=== PATIENT | female | born 1930 | race Caucasian/White ===

== ENCOUNTER → 2017-01-14 | Outpatient (CLI) | payer MEDICARE ==
[2017-01-14 16:07] LABS: Basophils # (A) 0.1 k/uL (0-0.2); Basophils % (A) 1 %; CH 27.2; CHCM 30.8; Eosinophils # (A) 0.5 k/uL (0-0.7); Eosinophils % (A) 5 %; HCT 36.2 % (34.0-46.0); HDW 2.52; HGB 11.2 gm/dL (11.4-16.0); Hypochromasia Slight; Luc # (Auto) 0.24; Luc % (Auto) 3; Lymphocytes # (A) 2.7 k/uL (1.0-4.8); Lymphocytes % (A) 29 %; MCH 27.5 pg (25.0-35.0); MCV 88.6 fL (80.0-100.0); Mean Platelet Volume 6.6; Monocytes # (A) 0.5 k/uL (0-1.0); Monocytes % (A) 5 %; Neutrophils # (A) 5.4 k/uL (1.3-7.7); Neutrophils % (A) 57 %; RBC 4.09 m/uL (3.80-5.40); RDW 14.1 % (11.5-15.5); WBC 9.4 k/uL (3.8-10.6); WBC (Perox) 10.15
[2017-01-14 16:13] LABS: Appearance,Urine Clear (Clear); Bacteria,Urine Many /hpf; Bilirubin,Urine Negative (Negative); Glucose,Urine (UA) Negative (Negative); INR 1.9 (<1.1); Ketones,Urine Negative (Negative); Leukocyte Esterase,Urine Negative (Negative); Mucus,Urine Many /hpf; Nitrite,Urine Negative (Negative); PH, Urine 5.5 (5.0-8.0); Particle Count 2419; Protein,Urine 1+ (Negative); Prothrombin Time 18.2 sec (9.0-12.0); Specific Gravity,Urine 1.015 (1.001-1.035); Squamous Epithelial Cell,Urine 1 /hpf (0-4); UA Billing (MACRO vs. MICRO) MICRO; Urobilinogen,Urine <2.0 mg/dL (<2.0); WBC,Urine 1 /hpf (0-5)
[2017-01-14 16:23] LABS: Calcium 9.6 mg/dL (8.4-10.2); Magnesium 1.9 mg/dL (1.6-2.3); Potassium 5.1 mmol/L (3.5-5.1); Uric Acid 6.8 mg/dL (3.7-7.4)
[2017-01-14 16:31] LABS: % Iron Saturation 22.1 % (20-50)
== END | disposition home or self-care (01) ==
LOC: LABWHC1 15:44
PROVIDERS: ATTEND Nurse Practitioner Family
DX: N18.3 Chronic kidney disease, stage 3 (moderate) (principal); N25.81 Secondary hyperparathyroidism of renal origin; D64.9 Anemia, unspecified; M10.9 Gout, unspecified; N39.0 Urinary tract infection, site not specified; I48.91 Unspecified atrial fibrillation
CPT/HCPCS: 36415; 80048; 81001; 82306; 82728; 83540; 83550; 83735; 83970; 84100; 84550; 85025; 85610

== ENCOUNTER 2017-05-17 20:39 | Observation (INO) | payer MEDICARE ==
--- NOTE | 2017-05-17 20:59 | ED ---
Chest Pain HPI - General Chief Complaint: Chest Pain Stated Complaint: Chest Pain Time Seen by Provider: 05/17/17 20:58 Source: patient, EMS Mode of arrival: EMS Limitations: no limitations - History of Present Illness Initial Comments: This patient is an 87-year-old woman presenting to be evaluated for chest pain. She states that initially she had an episode last night that resolved. Tonight she was watching TV when she developed another episode. She indicates the substernal area, states that its aching pain, moderate, and that resolved after she had nitroglycerin. She states she also has been having some intermittent episodes of sweating over the past day. She did not note any worsening or relieving factors. She states that the pain reminded her of chest pain she was having when she had a heart attack. MD Complaint: chest pain -: days(s) Onset: during rest Pain Location: substernal Pain Radiation: none Severity: moderate Quality: aching Consistency: intermittent, now resolved Improves With: nitroglycerin Worsens With: nothing Anginal Symptoms: diaphoresis Treatments Prior to Arrival: aspirin, nitroglycerin - Related Data Home Medications Medication Instructions Recorded Confirmed Atorvastatin [Lipitor] 20 mg PO HS 02/02/14 05/17/17 Benazepril [Lotensin] 10 mg PO BID 02/02/14 05/17/17 HYDROcodone/APAP 5-325MG [[place] 1 tab PO TID PRN 02/02/14 05/17/17 5-325] Omeprazole [PriLOSEC] 20 mg PO AC-BRKFST 02/02/14 05/17/17 Warfarin Sodium [Coumadin] 3 mg PO DAILY@1800 02/02/14 05/17/17 amLODIPine BESYLATE [Norvasc] 5 mg PO HS 02/02/14 05/17/17 metFORMIN HCL [Glucophage] 500 mg PO AC-BID 02/02/14 05/17/17 Insulin Detemir [Levemir Flextouch] 8 units SQ DAILY 05/31/15 08/20/16 Aspirin EC [Ecotrin Low Dose] 81 mg PO DAILY 08/20/16 05/17/17 Ipratropium-Albuterol Nebulize 3 ml INHALATION RT-Q6H PRN 08/20/16 08/20/16 [Duoneb 0.5 mg-3 mg/3 ml Soln] Oxazepam [Serax] 15 mg PO BID 08/20/16 05/17/17 Metoprolol Tartrate [Lopressor] 50 mg PO BID 05/17/17 05/17/17 Allergies Allergy/AdvReac Type Severity Reaction Status Date / Time amoxicillin trihydrate Allergy Unknown Verified 08/20/16 17:22 [From Augmentin] clindamycin HCl Allergy Unknown Verified 08/20/16 17:22 [From Cleocin] clindamycin palmitate HCl Allergy Unknown Verified 08/20/16 17:22 [From Cleocin] clindamycin phosphate Allergy Unknown Verified 08/20/16 17:22 [From Cleocin] codeine Allergy Unknown Verified 08/20/16 17:22 nitrofurantoin Allergy Unknown Verified 08/20/16 17:22 [From Macrobid] nitrofurantoin Allergy Unknown Verified 08/20/16 17:22 macrocrystalline [From Macrobid] Penicillins Allergy Unknown Verified 08/20/16 17:22 potassium clavulanate Allergy Unknown Verified 08/20/16 17:22 [From Augmentin] prednisone Allergy Unknown Verified 08/20/16 17:22 quinine Allergy Unknown Verified 08/20/16 17:22 Sulfa (Sulfonamide Allergy Unknown Verified 08/20/16 17:22 Antibiotics) sulfamethoxazole Allergy Unknown Verified 08/20/16 17:22 [From Bactrim] trimethoprim [From Bactrim] Allergy Unknown Verified 08/20/16 17:22 Review of Systems ROS Statement: Those systems with pertinent positive or pertinent negative responses have been documented in the HPI. ROS Other: All systems not noted in ROS Statement are negative. Constitutional: Denies: fever, chills, weakness Respiratory: Denies: cough, dyspnea Cardiovascular: Reports: chest pain. Denies: palpitations, orthopnea, edema, syncope Gastrointestinal: Reports: diarrhea (Intermittent for 50 years), constipation ( Intermittent for 50 years). Denies: abdominal pain, nausea, vomiting Genitourinary: Denies: dysuria, hematuria Musculoskeletal: Denies: back pain Skin: Denies: rash Neurological: Denies: headache, weakness, numbness EKG Findings - EKG Results: EKG: interpreted by ERMD, sinus rhythm (With PACs, rate approximately 85 bpm), normal axis, normal QRS, normal ST/T, no acute changes Past Medical History Past Medical History: COPD, CVA/TIA, Diabetes Mellitus, GERD/Reflux, Hyperlipidemia, Hypertension, Myocardial Infarction ([place]), Pneumonia Additional Past Medical History / Comment(s): anemia eczema, constipation, Last Myocardial Infarction Date:: 1998 History of Any Multi-Drug Resistant Organisms: None Reported Past Surgical History: Cholecystectomy, Heart Catheterization With Stent Additional Past Surgical History / Comment(s): cataracts, 2 ovary removed Past Anesthesia/Blood Transfusion Reactions: Previous Problems w/ Anesthesia Additional Past Anesthesia/Blood Transfusion Reaction / Comment(s): difficulty breathing after anesthesia Date of Last Stent Placement:: unk Past Psychological History: Depression Smoking Status: Former smoker Past Alcohol Use History: None Reported Past Drug Use History: None Reported - Past Family History Father History Unknown: Yes Family Medical History: Myocardial Infarction ([place]) Mother History Unknown: Yes Family Medical History: Myocardial Infarction ([place]) General Exam Limitations: no limitations General appearance: alert, in no apparent distress Head exam: Present: atraumatic, normocephalic Eye exam: Present: normal appearance. Absent: scleral icterus, conjunctival injection ENT exam: Present: normal oropharynx Neck exam: Present: normal inspection, full ROM Respiratory exam: Present: normal lung sounds bilaterally. Absent: respiratory distress, wheezes, rales, rhonchi, stridor Cardiovascular Exam: Present: regular rate, normal rhythm, systolic murmur ( There is a grade 2/6 systolic ejection murmur). Absent: diastolic murmur, rubs , gallop GI/Abdominal exam: Present: soft. Absent: distended, tenderness, guarding, rebound, mass Extremities exam: Present: normal inspection, normal capillary refill. Absent: pedal edema, calf tenderness Back exam: Present: normal inspection. Absent: CVA tenderness (R), CVA tenderness (L) Neurological exam: Present: alert Skin exam: Present: warm, dry, intact, normal color. Absent: rash, cyanosis, diaphoretic, erythema, petechiae, pallor, mottled Course Vital Signs 05/17/17 05/17/17 20:47 21:35 Temperature 98.3 F Pulse Rate 79 75 Respiratory 18 18 Rate Blood Pressure 134/72 152/95 O2 Sat by Pulse 95 97 Oximetry Disposition Clinical Impression: Chest pain Disposition: ADMITTED IP TO THIS HOSP Condition: Fair Referrals: Georgi Thayer MD [Primary Care Provider] - 1-2 days
[2017-05-17 21:20] LABS: Basophils # (A) 0.1 k/uL (0-0.2); Basophils % (A) 1 %; CH 27.8; CHCM 31.8; Eosinophils # (A) 0.8 k/uL (0-0.7); Eosinophils % (A) 7 %; HCT 32.9 % (34.0-46.0); HDW 2.69; HGB 10.3 gm/dL (11.4-16.0); Luc % (Auto) 3; Lymphocytes # (A) 3.5 k/uL (1.0-4.8); Lymphocytes % (A) 30 %; MCH 27.5 pg (25.0-35.0); MCHC 31.3 g/dL (31.0-37.0); MCV 87.8 fL (80.0-100.0); Mean Platelet Volume 7.2; Monocytes # (A) 0.7 k/uL (0-1.0); Monocytes % (A) 6 %; Neutrophils # (A) 6.6 k/uL (1.3-7.7); Neutrophils % (A) 55 %; RBC 3.75 m/uL (3.80-5.40); RDW 14.8 % (11.5-15.5); WBC 11.9 k/uL (3.8-10.6); WBC (Perox) 12.15
--- NOTE | 2017-05-17 21:30 | XR ---
EXAMINATION TYPE: XR chest 1V portable DATE OF EXAM: 05/17/2017 COMPARISON: 05/03/2016 INDICATION: COPD, chest pain TECHNIQUE: Single frontal view of the chest is obtained. FINDINGS: The heart size is normal. The pulmonary vasculature is normal. Suspicious consolidation is not identified. There is some mild infiltrate at the right heart border, this is stable from prior study. IMPRESSION: 1. Chronic changes. No acute pulmonary process radiographically apparent.
[2017-05-17 21:31] LABS: Calcium 9.1 mg/dL (8.4-10.2); Magnesium 1.9 mg/dL (1.6-2.3); Potassium 4.8 mmol/L (3.5-5.1); Total Bilirubin 0.2 mg/dL (0.2-1.3)
[2017-05-17 21:50] LABS: INR 1.9 (<1.2); Partial Thromboplastin Time 32.2 sec (22.0-30.0); Prothrombin Time 17.9 sec (9.0-12.0)
[2017-05-17] MEDS ORDERED: NITROGLYCERIN SL TABS 0.4 MG TAB SUBLINGUAL PRN (22:24)
[2017-05-17] MEDS ORDERED: IPRATROPIUM-ALBUTEROL 3 ML NEB INHALATION PRN (22:27)
[2017-05-17] MEDS ORDERED: ATORVASTATIN 20 MG TAB PO STA (23:49)
[2017-05-17] MEDS ORDERED: METOPROLOL SUCCINATE (ER) 50 MG TAB.ER.24H PO STA (23:49)
[2017-05-17] MEDS ORDERED: amLODIPine 5 MG TAB PO STA (23:50)
[2017-05-18 00:07] VITALS: BMI 30.9
[2017-05-18 00:13] LABS: Creatine Kinase 163 U/L (30-135)
[2017-05-18] MEDS: HYDROcodone/APAP 5-325MG 1 EACH TAB PO PRN ×2 (00:13→21:16)
[2017-05-18] MEDS ORDERED: SENNOSIDES 8.6 MG TAB PO PRN (00:22)
[2017-05-18 00:26] LABS: Troponin I <0.012 ng/mL (0.000-0.034)
[2017-05-18 00:43] LABS: Creatine Kinase MB 2.7 ng/mL (0.0-2.4)
[2017-05-18 05:21] LABS: Cholesterol 119 mg/dL (<200); HDL Cholesterol 41 mg/dL (40-60)
[2017-05-18 05:24] LABS: Creatine Kinase 136 U/L (30-135)
[2017-05-18 05:38] LABS: Creatine Kinase MB 2.2 ng/mL (0.0-2.4); Troponin I <0.012 ng/mL (0.000-0.034)
[2017-05-18 06:54] LABS: Glucose,Whole Blood 115 mg/dL (75-99)
[2017-05-18] MEDS ORDERED: METOPROLOL TARTRATE 50 MG TAB PO SCH (09:00)
[2017-05-18] MEDS ORDERED: INSULIN DETEMIR 100 UNIT/ML 10 ML VIAL SQ SCH ×2 (09:00→14:00)
[2017-05-18] MEDS: LISINOPRIL 20 MG TAB PO SCH (09:24)
[2017-05-18] MEDS: metFORMIN 500 MG TAB PO SCH ×2 (09:24→17:38)
[2017-05-18] MEDS: PANTOPRAZOLE 40 MG TABLET PO SCH (09:24)
[2017-05-18] MEDS: ASPIRIN 325 MG TAB PO SCH (09:24)
[2017-05-18] MEDS: LORazepam 1 MG TAB PO SCH ×2 (09:29→20:51)
--- NOTE | 2017-05-18 09:34 | CONS ---
Mrs. Ulloa is an 87-year-old female who presented with two episodes of chest discomfort. She was not really doing much. This was discomfort in the chest which was non-radiating and passed in a few minutes. She was watching t.v. at the time. She had substernal discomfort that was relieved after nitroglycerine. She has also had some excessive sweating in the past one day. At this time, she is resting comfortably in bed. She sees Dr. Chato Nunez and Dr. Thayer. Past history of paroxysmal atrial fibrillation, hypertension, dyslipidemia, coronary artery disease, coronary stenting of the RCA, prior [place]. She also has mild to moderate aortic stenosis. ALLERGIES: SHE HAS A FAIRLY LONG LIST OF ALLERGIES. Medication list was reviewed and is documented in the chart. Last year I had seen her for an episode of syncope while she was sitting. She was not orthostatic at that time. This was in 2016. She also has diabetes. REVIEW OF SYSTEMS: No fevers, chills, rigors, cough or expectoration. No nausea or vomiting or diarrhea. No hematuria, dysuria. No strokes or seizures. No skin lesions. No musculoskeletal complaints. Serial ECGs do not show any ST segment abnormalities. Chest x-ray does not show any acute new abnormalities. Heart rates in the 70s and 80s. NC interval his normal. IMPRESSION: 1. 87 -year-old female with two episodes of chest discomfort, one relieved with nitroglycerine. 2. History of coronary artery disease. 3. History of mild to moderate aortic stenosis on appropriate medical treatment at this time. SUGGEST: I would suggest medical treatment by increasing the dose of beta daryl and also increasing the dose of statins. If her pain continues, then coronary workup can be performed as an outpatient. She is a patient of Dr. Chato Nunez and she should see him probably in the next 7 to 10 days. [facility]
[2017-05-18] MEDS: METOPROLOL TARTRATE 50 MG TAB PO SCH ×2 (10:06→20:51)
[2017-05-18 11:47] LABS: Glucose,Whole Blood 140 mg/dL (75-99)
[2017-05-18 15:16] LABS: Appearance,Urine Clear (Clear); Bacteria,Urine Many /hpf; Bilirubin,Urine Negative (Negative); Glucose,Urine (UA) Negative (Negative); Ketones,Urine Negative (Negative); Leukocyte Esterase,Urine Negative (Negative); Mucus,Urine Few /hpf; Nitrite,Urine Negative (Negative); Particle Count 3263; Protein,Urine 1+ (Negative); Squamous Epithelial Cell,Urine 1 /hpf (0-4); UA Billing (MACRO vs. MICRO) MICRO; Urobilinogen,Urine <2.0 mg/dL (<2.0); WBC,Urine 1 /hpf (0-5)
[2017-05-18 17:06] LABS: Glucose,Whole Blood 112 mg/dL (75-99)
[2017-05-18] MEDS ORDERED: WARFARIN 3 MG TAB PO SCH (18:00)
--- NOTE | 2017-05-18 18:59 | HP ---
DATE OF ADMISSION: 05/17/17 HISTORY AND PHYSICAL EXAMINATION/ CHIEF COMPLAINT: Chest pain. HISTORY OF PRESENT ILLNESS: This 87-year-old woman with past medical history of CAD, history of GERD, Diabetes mellitus type 2, myocardial infarction, being followed by Dr. Thayer in the outpatient setting, was complaining of chest pain. The patient was admitted with complaints of chest pain since last night. The patient was watching t.v. The patients pain was felt in the anterior part of the chest with some local tenderness. There is no history of any radiation. No history of aggravating or alleviating factors. No history of sweating or palpitations. The patient having intermittent episodes of chest pain over the past few days. Past medical history of CAD, history of CVA, TIA, diabetes mellitus, GERD, history of myocardial infarction, history of DJD. Mediations prior to admission include: Home medications are: 1. Lopressor 75 mg po b.i.d. 2. Lipitor 40 mg q.h.s. 3. Glucophage 500 mg b.i.d. 4. Norvasc 5 mg daily. 5. Coumadin 3 mg daily. 7. Prilosec 20 mg a.c. breakfast. 8. Singulair 10 mg a day. 9. Tradjenta 5 mg po daily. 10. DuoNeb q.i.d. and prn. 11. Levemir 8 units subcu daily. 12. [place] one tablet po t.i.d. prn 13. Advair 250/50 one puff b.i.d. 14. Lotensin 10 mg po b.i.d. 15. Ecotrin 81 mg po daily. ALLERGIES: AMOXICILLIN, CLINDAMYCIN, CODEINE, NITROFURANTOIN, PREDNISONE, QUININE, SULFA, BACTRIM. FAMILY HISTORY: History of myocardial infarction in the family. SOCIAL HISTORY: Previous history of smoking. No history of current smoking or alcohol intake. REVIEW OF SYSTEMS: HEENT: Diminished vision and diminished hearing. Cardiovascular system: As mentioned earlier. Respiratory: As mentioned earlier. GI: As mentioned earlier. : No dysuria. Nervous system: No numbness, weakness. Allergy/Immunology: No asthma or hayfever. Musculoskeletal : As mentioned earlier. Hematology/oncology: No history of anemia. Endocrine: Diabetes. Constitutional: As mentioned earlier. Dermatology: Negative. Rheumatology: Negative. Psychiatry: As mentioned earlier. PHYSICAL EXAMINATION: The patient is alert, oriented times three. Pulse 74. Blood pressure 147/69. Respiratory rate 14, temperature 97.6. Pulse ox 97% on room air. HEENT: Conjunctivae normal. NECK: No JVD. No carotid bruit. Cardiovascular: S1, S2. Respiratory: Breath sounds diminished at the bases. No rhonchi and no crackles. Abdomen is soft, nontender. No mass palpable. Legs: No edema. No swelling. Nervous system: Higher functions as mentioned earlier. Moves all four limbs. No focal motor deficits. Lymphatics: No lymph nodes palpable in the neck, axilla or groin. Skin: No ulcer, rash or bleeding. LABS: WBC 11.1, hemoglobin 10.9, creatinine 1.45. Triglycerides 238. Troponins are negative. ASSESSMENT: 1. Chest pain, possible musculoskeletal, possible unstable angina. 2. History of coronary artery disease. 3. Increased creatinine with chronic kidney disease. Stage III. 4. History of chronic obstructive pulmonary disease. 5. Diabetes Type 2. 6. Hypertension. 7. Hyperlipidemia. RECOMMENDATIONS AND DISCUSSION: In this 87 -year-old woman who presented with multiple complex medical issues, we will monitor the patient closely. Continue current medications. Continue symptomatic treatment. Otherwise, cardiology has seen the patient and recommended medication adjustments, outpatient follow-up and medical management. The patient will be recommended to resume the home medications. Follow-up with Dr. Thayer as well as Cardiology. Continue to monitor. See orders for further details. [facility]
[2017-05-18 20:01] VITALS: RESP 18
[2017-05-18 20:34] LABS: Glucose,Whole Blood 115 mg/dL (75-99)
[2017-05-18] MEDS ORDERED: ATORVASTATIN 20 MG TAB PO SCH (21:00)
[2017-05-18] MEDS ORDERED: ATORVASTATIN 40 MG TAB PO SCH (21:00)
[2017-05-18] MEDS ORDERED: amLODIPine 5 MG TAB PO SCH (21:00)
[2017-05-18 23:56] VITALS: TEMP 98.2
[2017-05-19 06:56] LABS: Glucose,Whole Blood 96 mg/dL (75-99)
[2017-05-19 07:46] VITALS: BP 133/53; PULSE 77
--- NOTE | 2017-05-19 08:06 | P.DS ---
Providers Date of admission: 05/17/17 22:24 Attending physician: Georgi Thayer Consults: 05/17/17 22:24 Consult Physician Routine Consulting Provider: Greg Sultana Consult Reason/Comments: chest pain Do you want consulting provider notified?: Yes Primary care physician: Georgi Thayer [facility] Course: This is a discharge from an 87-year-old white female with known history coronary disease and diabetes. The patient was essentially admitted for appropriate chest pressure. She felt that it was like angina with previous myocardial infraction. Cardiology with the patient. The patient is now discharged stable condition after enzymatic rule out. By beta daryl was titrated and the patient is discharged home in stable condition to follow-up with me in 2-3 days. Patient Condition at Discharge: Fair Plan - Discharge Summary New Discharge Prescriptions: New Azithromycin [Zithromax Z-pack] 0 mg PO DIRECTED #6 tab Metoprolol Tartrate [Lopressor] 75 mg PO BID tab Nitroglycerin Sl Tabs [Nitrostat] 0.4 mg SUBLINGUAL Q5M PRN tab PRN Reason: Chest Pain Continue metFORMIN HCL [Glucophage] 500 mg PO AC-BID amLODIPine BESYLATE [Norvasc] 5 mg PO DAILY Warfarin Sodium [Coumadin] 3 mg PO DAILY@1800 Omeprazole [PriLOSEC] 20 mg PO AC-BRKFST HYDROcodone/APAP 5-325MG [[place] 5-325] 1 tab PO TID PRN PRN Reason: Pain Benazepril [Lotensin] 10 mg PO BID Atorvastatin [Lipitor] 40 mg PO HS Insulin Detemir [Levemir Flextouch] 8 units SQ DAILY Aspirin EC [Ecotrin Low Dose] 81 mg PO DAILY Ipratropium-Albuterol Nebulize [Duoneb 0.5 mg-3 mg/3 ml Soln] 3 ml INHALATION RT-QID PRN PRN Reason: Shortness Of Breath Oxazepam [Serax] 15 mg PO BID Linagliptin [Tradjenta] 5 mg PO DAILY Montelukast [Singulair] 10 mg PO DAILY Fluticasone/Salmeterol [Advair 250-50 Diskus] 1 puff INHALATION RT-BID Discontinued Metoprolol Tartrate [Lopressor] 75 mg PO BID Discharge Medication List Atorvastatin [Lipitor] 40 mg PO HS 02/02/14 [History] Benazepril [Lotensin] 10 mg PO BID 02/02/14 [History] HYDROcodone/APAP 5-325MG [[place] 5-325] 1 tab PO TID PRN 02/02/14 [History] Omeprazole [PriLOSEC] 20 mg PO AC-BRKFST 02/02/14 [History] Warfarin Sodium [Coumadin] 3 mg PO DAILY@1800 02/02/14 [History] amLODIPine BESYLATE [Norvasc] 5 mg PO DAILY 02/02/14 [History] metFORMIN HCL [Glucophage] 500 mg PO AC-BID 02/02/14 [History] Insulin Detemir [Levemir Flextouch] 8 units SQ DAILY 05/31/15 [History] Aspirin EC [Ecotrin Low Dose] 81 mg PO DAILY 08/20/16 [History] Ipratropium-Albuterol Nebulize [Duoneb 0.5 mg-3 mg/3 ml Soln] 3 ml INHALATION RT -QID PRN 08/20/16 [History] Oxazepam [Serax] 15 mg PO BID 08/20/16 [History] Linagliptin [Tradjenta] 5 mg PO DAILY 05/17/17 [History] Montelukast [Singulair] 10 mg PO DAILY 05/17/17 [History] Fluticasone/Salmeterol [Advair 250-50 Diskus] 1 puff INHALATION RT-BID 05/18/17 [History] Azithromycin [Zithromax Z-pack] 0 mg PO DIRECTED #6 tab 05/19/17 [Rx] Metoprolol Tartrate [Lopressor] 75 mg PO BID tab 05/19/17 [Rx] Nitroglycerin Sl Tabs [Nitrostat] 0.4 mg SUBLINGUAL Q5M PRN tab 05/19/17 [Rx] Follow up Appointment(s)/Referral(s): Georgi Thayer MD [Primary Care Provider] - 1-2 days Discharge Disposition: HOME SELF-CARE
[2017-05-19] MEDS: PANTOPRAZOLE 40 MG TABLET PO SCH (08:10)
[2017-05-19] MEDS: LISINOPRIL 20 MG TAB PO SCH (08:10)
[2017-05-19] MEDS: metFORMIN 500 MG TAB PO SCH (08:10)
[2017-05-19] MEDS: ASPIRIN 325 MG TAB PO SCH (08:10)
[2017-05-19] MEDS: METOPROLOL TARTRATE 50 MG TAB PO SCH (08:15)
[2017-05-19] MEDS: LORazepam 1 MG TAB PO SCH (10:46)
== END 2017-05-19 10:46 | disposition home or self-care (01) ==
LOC: EC 20:39 → 3OBS 22:24
PROVIDERS: ADMIT Family Medicine; ATTEND Family Medicine
DX: R07.89 Other chest pain (principal); I25.2 Old myocardial infarction; K21.9 Gastro-esophageal reflux disease without esophagitis; J44.9 Chronic obstructive pulmonary disease, unspecified; E78.5 Hyperlipidemia, unspecified; E11.22 Type 2 diabetes mellitus with diabetic chronic kidney disease; I12.9 Hypertensive chronic kidney disease with stage 1 through stage 4 chronic kidney disease, or unspecified chronic kidney disease; N18.3 Chronic kidney disease, stage 3 (moderate); Z95.5 Presence of coronary angioplasty implant and graft; F32.9 Major depressive disorder, single episode, unspecified; D64.9 Anemia, unspecified; H26.9 Unspecified cataract; Z79.899 Other long term (current) drug therapy; Z79.01 Long term (current) use of anticoagulants; Z79.84 Long term (current) use of oral hypoglycemic drugs; Z79.4 Long term (current) use of insulin; Z79.82 Long term (current) use of aspirin; Z88.1 Allergy status to other antibiotic agents; Z88.5 Allergy status to narcotic agent; Z88.0 Allergy status to penicillin; Z88.2 Allergy status to sulfonamides; Z88.8 Allergy status to other drugs, medicaments and biological substances; Z86.73 Personal history of transient ischemic attack (TIA), and cerebral infarction without residual deficits; Z87.891 Personal history of nicotine dependence; Z82.49 Family history of ischemic heart disease and other diseases of the circulatory system; L30.9 Dermatitis, unspecified; I35.0 Nonrheumatic aortic (valve) stenosis; I48.0 Paroxysmal atrial fibrillation; I25.10 Atherosclerotic heart disease of native coronary artery without angina pectoris
CPT/HCPCS: 99285; 36415; 93005; 80061; 80053; 83036; 82550 ×2; 82553 ×2; 83735; 84484 ×2; 85025; 85610; 85730; 81001; 71010; G0378 ×3

== ENCOUNTER 2017-09-21 19:12 | Inpatient (IN) | payer MEDICARE ==
[2017-09-21] MEDS ORDERED: HEPARIN SODIUM,PORCINE 5,000 UNIT/ML 1 ML VIAL IV STA (19:37)
[2017-09-21] MEDS ORDERED: ASPIRIN 81 MG PO STA (19:37)
[2017-09-21] MEDS ORDERED: MORPHINE SULFATE 5 MG/ML SYRINGE IVP STA (19:38)
--- NOTE | 2017-09-21 19:42 | ED ---
Chest Pain HPI - General Chief Complaint: Chest Pain Stated Complaint: throat and chest pain Time Seen by Provider: 09/21/17 19:28 Source: patient Mode of arrival: ambulatory Limitations: no limitations - History of Present Illness Initial Comments: Is a 7-year-old female history of CAD who presents emergency department for chest pain. She states it started earlier today. It radiates into her throat and shoulders. She states is been constant. She denies any shortness of breath. No lightheadedness. No nausea or vomiting. No other complaints. EKG was shown and showed inferior ST segment elevation with depressions in aVL and slightly laterally. When compared to previous EKG it seemed worse. STEMI activation was performed and Dr. lee on his called. Cath team was called. - Related Data Home Medications Medication Instructions Recorded Confirmed HYDROcodone/APAP 5-325MG [[place] 1 tab PO TID PRN 02/02/14 08/25/17 5-325] Omeprazole [PriLOSEC] 20 mg PO AC-BRKFST 02/02/14 08/25/17 amLODIPine BESYLATE [Norvasc] 5 mg PO HS 02/02/14 08/25/17 metFORMIN HCL [Glucophage] 500 mg PO AC-BID 02/02/14 08/25/17 Insulin Detemir [Levemir Flextouch] 8 units SQ DAILY@1430 05/31/15 08/25/17 Ipratropium-Albuterol Nebulize 3 ml INHALATION RT-QID PRN 08/20/16 08/25/17 [Duoneb 0.5 mg-3 mg/3 ml Soln] Oxazepam [Serax] 15 mg PO BID 08/20/16 08/25/17 Linagliptin [Tradjenta] 5 mg PO DAILY 05/17/17 08/25/17 Montelukast [Singulair] 10 mg PO DAILY 05/17/17 08/25/17 Fluticasone/Salmeterol [Advair 1 puff INHALATION RT-BID 05/18/17 08/25/17 250-50 Diskus] Metoprolol Tartrate [Lopressor] 100 mg PO BID 07/18/17 08/25/17 Sennosides [Senna] 12.9 mg PO HS 07/18/17 08/25/17 Azithromycin [Zithromax Z-pack] 0 mg PO DIRECTED 08/25/17 08/25/17 Previous Rx's Medication Instructions Recorded Aspirin EC [Ecotrin Low Dose] 81 mg PO DAILY #0 07/23/17 Atorvastatin [Lipitor] 40 mg PO HS #30 tab 07/23/17 Clopidogrel [Plavix] 75 mg PO DAILY #30 tab 07/23/17 Nitroglycerin Sl Tabs [Nitrostat] 0.4 mg SUBLINGUAL Q5M PRN #25 tab 07/23/17 Rivaroxaban [Xarelto] 15 mg PO W/SUPPER #30 tab 07/23/17 Allergies Allergy/AdvReac Type Severity Reaction Status Date / Time amoxicillin trihydrate Allergy Unknown Verified 08/25/17 07:56 [From Augmentin] clindamycin HCl Allergy Unknown Verified 08/25/17 07:56 [From Cleocin] clindamycin palmitate HCl Allergy Unknown Verified 08/25/17 07:56 [From Cleocin] clindamycin phosphate Allergy Unknown Verified 08/25/17 07:56 [From Cleocin] codeine Allergy Unknown Verified 08/25/17 07:56 nitrofurantoin Allergy Unknown Verified 08/25/17 07:56 [From Macrobid] nitrofurantoin Allergy Unknown Verified 08/25/17 07:56 macrocrystalline [From Macrobid] Penicillins Allergy Unknown Verified 08/25/17 07:56 potassium clavulanate Allergy Unknown Verified 08/25/17 07:56 [From Augmentin] prednisone Allergy Unknown Verified 08/25/17 07:56 quinine Allergy Unknown Verified 08/25/17 07:56 Sulfa (Sulfonamide Allergy Unknown Verified 08/25/17 07:56 Antibiotics) sulfamethoxazole Allergy Unknown Verified 08/25/17 07:56 [From Bactrim] trimethoprim [From Bactrim] Allergy Unknown Verified 08/25/17 07:56 Review of Systems ROS Statement: Those systems with pertinent positive or pertinent negative responses have been documented in the HPI. ROS Other: All systems not noted in ROS Statement are negative. EKG Findings - EKG Comments: EKG Findings:: EKG is showing normal sinus rhythm. There is ST segment changes in II, III, and F aVF with Q waves in lead 3. Intervals appear normal. ST segment pression laterally and in aVL. no ectopy. Past Medical History Past Medical History: Coronary Artery Disease (CAD), COPD, CVA/TIA, Diabetes Mellitus, GERD/Reflux, Hearing Disorder / Deafness, Hyperlipidemia, Hypertension , Myocardial Infarction ([place]), Osteoarthritis ([place]), Pneumonia Additional Past Medical History / Comment(s): anemia eczema, constipation, TIA X 3, esophageal dilation due to issues swallowing Last Myocardial Infarction Date:: 1998 History of Any Multi-Drug Resistant Organisms: None Reported Past Surgical History: Cholecystectomy, Heart Catheterization With Stent Additional Past Surgical History / Comment(s): cataracts, 2 ovary removed, cardiac cath with stent 07/2017 Past Anesthesia/Blood Transfusion Reactions: Previous Problems w/ Anesthesia Additional Past Anesthesia/Blood Transfusion Reaction / Comment(s): difficulty breathing after anesthesia Date of Last Stent Placement:: 07/2017 Past Psychological History: Depression Smoking Status: Former smoker Past Alcohol Use History: None Reported Past Drug Use History: None Reported - Past Family History Father History Unknown: Yes Family Medical History: Myocardial Infarction ([place]) Mother History Unknown: Yes Family Medical History: Myocardial Infarction ([place]) Additional Family Medical History / Comment(s): Mother of a [place] at about age 80yrs. General Exam Limitations: no limitations Course Vital Signs 09/21/17 19:15 Temperature 96.8 F L Pulse Rate 72 Respiratory 18 Rate Blood Pressure 180/74 O2 Sat by Pulse 100 Oximetry Chest Pain MDM - MDM Is an 87-year-old female who presents emergency department for chest pain. EKG showed what appeared to be acute STEMI. Cath team was activated and Dr. Warner was called. Patient was given aspirin, morphine, and heparin bolus. Was transferred to technology lab teacher for further intervention. Disposition Clinical Impression: ST elevation myocardial infarction (STEMI) Disposition: ADMITTED IP TO THIS HOSP Condition: Stable
--- NOTE | 2017-09-21 19:58 | XR ---
EXAMINATION TYPE: XR chest 1V portable DATE OF EXAM: 09/21/2017 COMPARISON: 08/24/2017 HISTORY: Chest pain TECHNIQUE: Single frontal view of the chest is obtained. FINDINGS: Heart is enlarged. There is pulmonary vascular congestion. There are chest leads. Thoracic aorta is atheromatous. IMPRESSION: There is mild heart failure that is new compared to old exam. Cardiomegaly.
[2017-09-21 20:02] LABS: Basophils # (A) 0.1 k/uL (0-0.2); Basophils % (A) 0 %; Eosinophils # (A) 0.4 k/uL (0-0.7); Eosinophils % (A) 3 %; HCT 32.1 % (34.0-46.0); HGB 9.9 gm/dL (11.4-16.0); Hypochromasia Moderate; Lymphocytes # (A) 2.7 k/uL (1.0-4.8); Lymphocytes % (A) 23 %; MCH 26.7 pg (25.0-35.0); MCHC 30.9 g/dL (31.0-37.0); MCV 86.4 fL (80.0-100.0); Mean Platelet Volume 7.2; Monocytes # (A) 0.8 k/uL (0-1.0); Monocytes % (A) 7 %; Neutrophils # (A) 7.7 k/uL (1.3-7.7); Neutrophils % (A) 65 %; Platelet Count 319 k/uL (150-450); RBC 3.71 m/uL (3.80-5.40); RDW 15.8 % (11.5-15.5); WBC 11.9 k/uL (3.8-10.6)
[2017-09-21 20:07] LABS: INR 1.1 (<1.2); Partial Thromboplastin Time 29.5 sec (22.0-30.0); Prothrombin Time 10.5 sec (9.0-12.0)
[2017-09-21] MEDS ORDERED: IV FLUID CONTINUATION 1,000 ML IV ONE (20:08)
[2017-09-21 20:09] LABS: Albumin 3.7 g/dL (3.5-5.0); Potassium 4.6 mmol/L (3.5-5.1); Total Bilirubin 0.5 mg/dL (0.2-1.3); Total Protein 7.2 g/dL (6.3-8.2)
[2017-09-21] MEDS ORDERED: LIDOCAINE 2% INJ 20 MG/ML (20 ML MDV) ONE (20:13)
[2017-09-21] MEDS ORDERED: diphenhydrAMINE 50 MG/ML 1 ML VIAL IVP ONE (20:23)
[2017-09-21] MEDS ORDERED: diphenhydrAMINE 50 MG/ML 1 ML VIAL ONE (20:23)
[2017-09-21] MEDS ORDERED: LIDOCAINE 2% INJ 20 MG/ML SQ ONE (20:24)
[2017-09-21] MEDS ORDERED: NITROGLYCERIN SL TABS 0.4 MG TAB SUBLINGUAL ONE ×2 (20:26→20:34)
[2017-09-21] MEDS ORDERED: IODIXANOL 320 MG/ML 100 ML INTRAARTER ONE (20:38)
[2017-09-21 20:39] LABS: Creatine Kinase MB 2.2 ng/mL (0.0-2.4)
[2017-09-21 20:44] LABS: Troponin I 0.11 ng/mL (0.000-0.034)
[2017-09-21] MEDS ORDERED: RX INFO: IV CONTRAST WAS GIVEN 1 EACH MISC MISCELLANE PRN (20:46)
[2017-09-21] MEDS ORDERED: NITROGLYCERIN SL TABS 0.4 MG TAB SUBLINGUAL PRN (20:47)
[2017-09-21] MEDS ORDERED: SODIUM CHLORIDE 0.9% 1,000 ML IV SCH (21:00)
[2017-09-21] MEDS: METOPROLOL TARTRATE 50 MG TAB PO SCH (21:52)
[2017-09-21] MEDS: SENNOSIDES 8.6 MG TAB PO SCH (21:52)
[2017-09-21 21:53] LABS: Basophils # (A) 0.1 k/uL (0-0.2); Basophils % (A) 0 %; Eosinophils # (A) 0.4 k/uL (0-0.7); Eosinophils % (A) 3 %; HCT 28.6 % (34.0-46.0); HGB 8.7 gm/dL (11.4-16.0); Hypochromasia Moderate; Lymphocytes # (A) 2.2 k/uL (1.0-4.8); Lymphocytes % (A) 19 %; MCH 26.3 pg (25.0-35.0); MCHC 30.4 g/dL (31.0-37.0); MCV 86.6 fL (80.0-100.0); Mean Platelet Volume 7.3; Monocytes # (A) 0.8 k/uL (0-1.0); Monocytes % (A) 7 %; Neutrophils # (A) 8.1 k/uL (1.3-7.7); Neutrophils % (A) 69 %; Platelet Count 302 k/uL (150-450); RDW 15.3 % (11.5-15.5); WBC 11.7 k/uL (3.8-10.6)
[2017-09-21] MEDS: ATORVASTATIN 40 MG TAB PO SCH (21:55)
[2017-09-21] MEDS: amLODIPine 5 MG TAB PO SCH (21:55)
[2017-09-21] MEDS: ISOSORBIDE MONONITRATE ER 30 MG TAB.ER.24H PO SCH (21:55)
[2017-09-21 22:02] LABS: INR 1.4 (<1.2); Partial Thromboplastin Time 76.3 sec (22.0-30.0)
[2017-09-21] MEDS: LORazepam 1 MG TAB PO SCH (23:49)
[2017-09-21] MEDS: HYDROcodone/APAP 5-325MG 1 EACH TAB PO PRN (23:49)
[2017-09-22 01:58] VITALS: BMI 29.8
[2017-09-22] MEDS: PANTOPRAZOLE 40 MG TABLET PO SCH (06:28)
[2017-09-22 07:46] LABS: Glucose,Whole Blood 159 mg/dL (75-99)
[2017-09-22 08:04] LABS: Calcium 9.3 mg/dL (8.4-10.2); Potassium 4.7 mmol/L (3.5-5.1)
[2017-09-22] MEDS: SYMBICORT 80-4.5 MCG INHALER INHALATION SCH ×2 (08:31→20:38)
[2017-09-22] MEDS: LINAGLIPTIN 5 MG TABLET PO SCH (09:26)
[2017-09-22] MEDS: ASPIRIN 81 MG PO SCH (09:26)
[2017-09-22] MEDS: MONTELUKAST 10 MG TAB PO SCH (09:26)
[2017-09-22] MEDS: CLOPIDOGREL 75 MG TAB PO SCH (09:26)
[2017-09-22] MEDS: ISOSORBIDE MONONITRATE ER 30 MG TAB.ER.24H PO SCH (09:26)
[2017-09-22] MEDS: METOPROLOL TARTRATE 50 MG TAB PO SCH ×2 (09:26→20:17)
[2017-09-22] MEDS: LORazepam 1 MG TAB PO SCH ×2 (09:28→20:17)
--- NOTE | 2017-09-22 11:03 | CONS ---
CONSULTATION Mrs. Ulloa is an 87-year-old female who is followed by Dr. Thayer and Dr. Chato Nunez, history of coronary disease status post stenting of the right coronary artery in the past and stenting of her LAD in June 2017, who presented with symptoms of chest discomfort. She is quite vague in her description, but she complains of chest discomfort. She has not been feeling well and because of that, came into the emergency room and was found to have ST elevation inferiorly. On her cardiac catheterization that was performed by Dr. Chato Nunez on July 22 she was noted to have a patent RCA stent, but the LAD and the last stent was done in 1999. She had a prior history of inferior wall myocardial infarction, although her left ventricular systolic function by echocardiography recently was stable. Her LAD had significant disease and underwent stenting of that vessel after IVUS guided treatment. Patient complains of dyspnea and some dizziness. She denies any palpitation. No syncope. She has no significant peripheral edema. No PND nor orthopnea. Her coronary risk factors are remarkable for hypertension, hyperlipidemia, and diabetes mellitus. She is a nonsmoker. She stopped in 1999. MEDICATIONS: Include Glucophage, amlodipine 5 mg daily. Xarelto 15 mg daily. Prilosec 20 mg daily. Singulair. Metoprolol tartrate 100 mg twice a day. Tradjenta insulin, Fluticasone, Plavix 75 mg daily and Lipitor 40 mg daily. PAST MEDICAL HISTORY: She has a history of paroxysmal atrial fibrillation. REVIEW OF SYSTEMS: RESPIRATORY SYSTEM: She had dyspnea on exertion. No recent wheezing or cough. GI SYSTEM: No recent GI bleeding. No peptic ulcer disease. SYSTEM: No dysuria or hematuria. NERVOUS SYSTEM: No history of seizure. She is hard of hearing, PHYSICAL EXAMINATION: She is an 87-year-old female, alert, oriented, in no apparent distress. Her blood pressure 167/70 with a heart rate in the 70s. HEAD: Normocephalic. EYES: Sclerae anicteric. NECK: Good upstroke. No jugular venous distention. LUNGS: Clear to auscultation. HEART: Irregular rate and rhythm, S1, S2. No S3 with systolic murmur, ejection type, heard at the base 2/6. No diastolic murmur. No rub. ABDOMEN: Soft, nontender. Positive bowel sounds. No megaly. EXTREMITIES: No edema. Intact pulses. LAB DATA: Lab data revealed a hemoglobin of 9.9, white blood cell of 11.9. Her renal functions are pending. Of note in the past she had a creatinine 1.4 on August 24. IMPRESSION: 1. Chest discomfort with EKG changes suggestive of acute inferior myocardial infarction. 2. History of stenting of the left anterior descending performed in June. 3. Paroxysmal atrial fibrillation. 4. Hypertension. 5. Hyperlipidemia. 6. Diabetes mellitus. 7. Renal failure. RECOMMENDATION: In view of her symptoms and her presentation, I recommend to proceed with cardiac catheterization. The procedures, risks and complications were discussed with the patient and her family who was in full understanding and agreement. The risk is higher than average in view of her history of renal function abnormality and the fact that she is anticoagulated. Thank you for this consult. We will follow with you. SHERRON / IJYaya: [id number] /
--- NOTE | 2017-09-22 11:11 | CC ---
CARDIAC CATHETERIZATION REPORT DATE OF SERVICE: 09/21/[address] Thayer: I had the pleasure of performing cardiac catheterization on Mrs. Ulloa at [facility] on September 21 and a full copy of procedure note will be forwarded to you. In brief she was found to have mild to moderate triple-vessel coronary artery disease with no significant progression of disease and based on those findings I have recommended to maximize her medical therapy and depending on her progress, further recommendations will be made. Thank you again for allowing me to participate in her care. Please feel free to call for any questions. Sincerely, SHERRON / ADALIN: [id number] /
--- NOTE | 2017-09-22 11:11 | CC ---
CARDIAC CATHETERIZATION REPORT Mrs. Ulloa is an 87-year-old female with a known history of coronary disease status post stenting of the right coronary artery in 1999 as well as stenting of her LAD in June of 2017, who presented with symptoms of chest discomfort and has some ST- segment changes in the inferior leads. Because of her persistent symptoms and her presentation, recommendation made regarding cardiac catheterization. The procedures, risks and complications were discussed with the patient and her daughter and there were in full understanding and agreement. 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 Using Xylocaine anesthesia and Seldinger technique, a 6-Mauritian sheath was introduced in the right femoral artery. Selective right and left coronary angiography were performed using 6-Mauritian 4 bend left Francesco and 6-Mauritian 4 bend right guiding catheter. Multiple images of the coronary artery including hemiaxial views were obtained. Following that, 6-Mauritian tight pigtail catheter was introduced into the left ventricle and pressures were calculated. Following that, catheter and sheaths were removed. Hemostasis was obtained with deployment of an Angio-Seal. There was no immediate complication. Patient was returned to her room in stable condition. FINDINGS: FLUOROSCOPY: There was calcification involving the coronary arteries. 1. Left main this is a large-sized vessel bifurcating into the left circumflex, left anterior descending coronary artery. Left main coronary artery distally has 10% to 20% plaque. 2. Left anterior descending artery: This is a large-sized vessel reaching toward the apex. The stented segment proximally is patent. There is no evidence of haziness or restenoses. It gives rise to a large diagonal branch that has a ANTIONE-3 flow with no evidence of significant stenosis. The distal vessel has no high-grade stenosis. 3. Left circumflex: This is a nondominant vessel giving rise to a moderate-sized obtuse marginal branch that has diffuse intimal disease of 40%. The rest of the vessel has no high-grade stenosis. 4. Right coronary artery: This is a large dominant vessel with multiple stents throughout the course of the vessel. The right coronary artery has diffuse in- stent restenoses, but none of them appear to be more than 40% and none of them appear to be worse than it was noted in June of this year. 5. Left ventriculogram: Left ventriculogram was not performed. 6. Hemodynamics: There was a 20-30 mm gradient across the aortic valve. CONCLUSION: 1. Patent stent in the proximal LAD. 2. Diffuse [id number] in-stent restenoses of the right coronary artery with no progression compared with June 2017. 3. Mild disease in the left circumflex. 4. A 20-30 mm gradient across the aortic valve. RECOMMENDATION: In view of finding anatomy, I recommend continue medical therapy. I see no evidence of significant progression of disease. Those findings and recommendation were discussed with the patient and her family who are in full understanding and agreement. Duration of procedure: 17 minutes. MMODL / IJN: [id number] /
[2017-09-22] MEDS: diphenhydrAMINE ELIXIR 25 MG/10 ML CUP PO PRN (11:26)
[2017-09-22 11:38] LABS: Glucose,Whole Blood 159 mg/dL (75-99)
[2017-09-22] MEDS: INSULIN DETEMIR 100 UNIT/ML 10 ML VIAL SQ SCH (13:56)
--- NOTE | 2017-09-22 14:39 | PN ---
PROGRESS NOTE This patient came with some vague chest discomfort. EKG showed old inferior wall myocardial infarction with mild ST-segment elevation. The patient was taken to the labeling associate. There was no significant progression in the coronary artery disease. Patient's two troponins are almost identical and it is not suggestive of any acute evolving ST-segment elevation myocardial infarction. Patient is not having any chest pain. The right groin is normal. The patient's blood pressure is 107/50 mmHg. Oxygen saturation is 92%. Patient is afebrile. First and second heart sounds are normal. Lungs are clear to auscultation and percussion. We will continue the current medications and patient will be discharged home tomorrow. MMODL / IJN: [id number] /
[2017-09-22 17:22] LABS: Glucose,Whole Blood 159 mg/dL (75-99)
[2017-09-22] MEDS: amLODIPine 5 MG TAB PO SCH (20:16)
[2017-09-22] MEDS: ATORVASTATIN 40 MG TAB PO SCH (20:16)
[2017-09-22] MEDS: SENNOSIDES 8.6 MG TAB PO SCH (20:17)
[2017-09-22 20:49] LABS: Glucose,Whole Blood 136 mg/dL (75-99)
[2017-09-22] MEDS: INSULIN ASPART 100 UNIT/ML 1 ML 10 ML VIAL SQ SCH (22:32)
[2017-09-23 00:54] LABS: Amorphous Sediment,Urine Rare /hpf; Appearance,Urine Clear (Clear); Bacteria,Urine Many /hpf; Bilirubin,Urine Negative (Negative); Blood,Urine Negative (Negative); Color,Urine Yellow; Glucose,Urine (UA) Negative (Negative); Ketones,Urine Negative (Negative); Leukocyte Esterase,Urine Negative (Negative); Mucus,Urine Rare /hpf; Nitrite,Urine Negative (Negative); Protein,Urine 1+ (Negative); RBC,Urine 1 /hpf (0-5); Squamous Epithelial Cell,Urine <1 /hpf (0-4); Urobilinogen,Urine <2.0 mg/dL (<2.0); WBC,Urine 2 /hpf (0-5)
[2017-09-23] MEDS: IPRATROPIUM-ALBUTEROL 3 ML NEB INHALATION PRN ×3 (03:52→20:36)
[2017-09-23] MEDS: INSULIN ASPART 100 UNIT/ML 1 ML 10 ML VIAL SQ SCH ×4 (06:28→19:55)
[2017-09-23] MEDS: PANTOPRAZOLE 40 MG TABLET PO SCH (06:29)
[2017-09-23 06:30] LABS: Glucose,Whole Blood 124 mg/dL (75-99)
[2017-09-23 06:35] LABS: Basophils % (A) 0 %; Eosinophils # (A) 0.3 k/uL (0-0.7); Eosinophils % (A) 3 %; HCT 27.2 % (34.0-46.0); HGB 8.5 gm/dL (11.4-16.0); Hypochromasia Slight; Lymphocytes # (A) 2.3 k/uL (1.0-4.8); Lymphocytes % (A) 22 %; MCH 25.8 pg (25.0-35.0); MCHC 31.1 g/dL (31.0-37.0); Mean Platelet Volume 7.3; Monocytes # (A) 0.9 k/uL (0-1.0); Monocytes % (A) 8 %; Neutrophils # (A) 6.8 k/uL (1.3-7.7); Neutrophils % (A) 65 %; Platelet Count 282 k/uL (150-450); RBC 3.28 m/uL (3.80-5.40); RDW 15.1 % (11.5-15.5); WBC 10.6 k/uL (3.8-10.6)
[2017-09-23 06:44] LABS: Calcium 9.1 mg/dL (8.4-10.2); Potassium 4.1 mmol/L (3.5-5.1)
--- NOTE | 2017-09-23 07:20 | P.DS ---
Providers Date of admission: 09/21/17 19:42 Attending physician: Georgi Thayer Consults: 09/21/17 19:38 Consult Physician Stat Consulting Provider: [facility] Consult Reason/Comments: STEMI ACTIVATION COMPLETE Do you want consulting provider notified?: Yes Primary care physician: Georgi Thayer - Discharge Diagnosis(es) (1) ST elevation myocardial infarction (STEMI) Current Visit: Yes Status: Acute (2) Angina at rest Current Visit: No Status: Acute Hospital Course: This is a discharge summary 87-year-old white female with chest pain. There was slight ST elevation myocardial elements. The patient ended up undergoing cardiac catheterization which did not show any new coronary disease. The patient will be discharged once cleared by cardiology. The patient seems to be stable and has no significant new pain Patient Condition at Discharge: Stable Plan - Discharge Summary Discharge Rx Participant: Yes New Discharge Prescriptions: New Isosorbide Mononitrate ER [Imdur] 30 mg PO DAILY #30 tab.er.24h Continue metFORMIN HCL [Glucophage] 500 mg PO AC-BID amLODIPine BESYLATE [Norvasc] 5 mg PO HS Omeprazole [PriLOSEC] 20 mg PO AC-BRKFST HYDROcodone/APAP 5-325MG [Francitas 5-325] 1 tab PO TID PRN PRN Reason: Pain Insulin Detemir [Levemir Flextouch] 8 units SQ DAILY@1430 Ipratropium-Albuterol Nebulize [Duoneb 0.5 mg-3 mg/3 ml Soln] 3 ml INHALATION RT-QID PRN PRN Reason: Shortness Of Breath Oxazepam [Serax] 15 mg PO BID Linagliptin [Tradjenta] 5 mg PO DAILY Montelukast [Singulair] 10 mg PO DAILY Fluticasone/Salmeterol [Advair 250-50 Diskus] 1 puff INHALATION RT-BID Metoprolol Tartrate [Lopressor] 100 mg PO BID Sennosides [Senna] 12.9 mg PO HS Atorvastatin [Lipitor] 40 mg PO HS #30 tab Clopidogrel [Plavix] 75 mg PO DAILY #30 tab Rivaroxaban [Xarelto] 15 mg PO W/SUPPER #30 tab Nitroglycerin Sl Tabs [Nitrostat] 0.4 mg SUBLINGUAL Q5M PRN #25 tab PRN Reason: Chest Pain Discharge Medication List HYDROcodone/APAP 5-325MG [Francitas 5-325] 1 tab PO TID PRN 02/02/14 [History] Omeprazole [PriLOSEC] 20 mg PO AC-BRKFST 02/02/14 [History] amLODIPine BESYLATE [Norvasc] 5 mg PO HS 02/02/14 [History] metFORMIN HCL [Glucophage] 500 mg PO AC-BID 02/02/14 [History] Insulin Detemir [Levemir Flextouch] 8 units SQ DAILY@1430 05/31/15 [History] Ipratropium-Albuterol Nebulize [Duoneb 0.5 mg-3 mg/3 ml Soln] 3 ml INHALATION RT -QID PRN 08/20/16 [History] Oxazepam [Serax] 15 mg PO BID 08/20/16 [History] Linagliptin [Tradjenta] 5 mg PO DAILY 05/17/17 [History] Montelukast [Singulair] 10 mg PO DAILY 05/17/17 [History] Fluticasone/Salmeterol [Advair 250-50 Diskus] 1 puff INHALATION RT-BID 05/18/17 [History] Metoprolol Tartrate [Lopressor] 100 mg PO BID 07/18/17 [History] Sennosides [Senna] 12.9 mg PO HS 07/18/17 [History] Atorvastatin [Lipitor] 40 mg PO HS #30 tab 07/23/17 [Rx] Clopidogrel [Plavix] 75 mg PO DAILY #30 tab 07/23/17 [Rx] Nitroglycerin Sl Tabs [Nitrostat] 0.4 mg SUBLINGUAL Q5M PRN #25 tab 07/23/17 [Rx ] Rivaroxaban [Xarelto] 15 mg PO W/SUPPER #30 tab 07/23/17 [Rx] Isosorbide Mononitrate ER [Imdur] 30 mg PO DAILY #30 tab.er.24h 09/23/17 [Rx]
[2017-09-23] MEDS: SYMBICORT 80-4.5 MCG INHALER INHALATION SCH ×2 (08:17→20:35)
[2017-09-23] MEDS: ISOSORBIDE MONONITRATE ER 30 MG TAB.ER.24H PO SCH (08:31)
[2017-09-23] MEDS: METOPROLOL TARTRATE 50 MG TAB PO SCH ×2 (08:31→19:59)
[2017-09-23] MEDS: ASPIRIN 81 MG PO SCH (08:31)
[2017-09-23] MEDS: LINAGLIPTIN 5 MG TABLET PO SCH (08:31)
[2017-09-23] MEDS: CLOPIDOGREL 75 MG TAB PO SCH (08:31)
[2017-09-23] MEDS: MONTELUKAST 10 MG TAB PO SCH (08:32)
[2017-09-23] MEDS: LORazepam 1 MG TAB PO SCH ×2 (08:34→19:59)
--- NOTE | 2017-09-23 08:58 | HP ---
HISTORY AND PHYSICAL CHIEF COMPLAINTS: Chest pain. HISTORY OF PRESENT ILLNESS: This 87-year-old woman with a past history of CAD, CVA, TIA, diabetes, GERD, history of myocardial infarction being by Dr. Thayer in the outpatient setting was admitted with chest pain to [facility]. The patient had chest pains which was in the anterior part of the chest, radiating to the throat and the shoulders and the troponin was found to be indeterminate elevated up to 0.102. Cardiology saw the patient, cardiac catheterization showed [id number]-[id number] triple vessel disease without much progress. Medical treatment recommended. Patient being closely monitored. There is no history of fever, rigors or chills. No history of headache, loss of consciousness or seizures. PAST MEDICAL HISTORY: History of CAD, COPD, CVA, TIA, GERD, hypertension, hyperlipidemia, history of myocardial infarction, cholecystectomy. MEDICATIONS: Prior to admission include home medications are: 1. Senna 12.9 mg p.o. q.h.s. 2. Lopressor 100 mg p.o. b.i.d. 3. Lipitor 40 mg q.h.s. 4. DuoNeb q.i.d. and p.r.n. 5. Levemir 8 units subcu daily. 6. [place] 5 mg t.i.d. p.r.n. 7. Advair 250/50 one puff b.i.d. 8. Plavix 75 mg p.o. daily. 9. Singular 10 mg p.o. daily. 10.Tradjenta 5 mg p.o. daily. 11.Xarelto 15 mg with supper. 12.Serax 50 mg p.o. b.i.d. 13.Prilosec 20 mg a.c. breakfast. 14.Nitrostat 0.4 sublingual p.r.n. 15.Glucophage 500 mg p.o. b.i.d. 16.Norvasc 5 mg p.o. q.h.s. ALLERGIES: ARE MULTIPLE ALLERGIES AMOXICILLIN, CLINDAMYCIN, CODEINE, NITROFURANTOIN, PENICILLIN, POTASSIUM, PREDNISONE, QUININE, SULFA. PHYSICAL EXAM: Patient is alert, oriented x2. Pulse 79, blood pressure 141/72, respiration 18, temperature 97.9, pulse ox 98% on room air HEENT conjunctivae normal. Oral mucosa moist. Neck is no jugular venous distention. No carotid bruit. No lymph node enlargement. Cardiovascular system: S1, S2 muffled. No S3, no S4. Respiratory : Breath sounds diminished in the bases. A few scattered rhonchi and crackles. ABDOMEN: Soft, nontender. No mass palpable. Legs no edema and no swelling. NERVOUS SYSTEM: Higher functions as mentioned earlier, moves all 4 limbs, no focal deficits. Lymphatics: No lymph nodes palpable in the neck, axillae or groin. Skin: No ulcer, rash or bleeding. LAB STUDIES: WBC 7.1, hemoglobin is 8.7 and otherwise creatinine is 1.30. ASSESSMENT: 1. Chest pain possible unstable angina, status post cardiac catheterization and as well as tsui-ea-tldkhyuj triple-vessel coronary artery disease without significant progression. 2. Troponin 0.102 indeterminate. 3. Chronic kidney disease stage 3. 4. History of chronic obstructive pulmonary disease. 5. History of coronary artery disease. 6. Cerebrovascular accident, transient ischemic attack. 8. Hypertension. 9. Hyperlipidemia. 10.History of pneumonia. 11.History of depression. RECOMMENDATIONS AND DISCUSSION: In this 87-year-old woman who presented with multiple complex medical issues, we will monitor the patient closely. Maximum medical treatment recommended. Cardiology will monitor the patient closely. Monitor creatinine closely. Resume the rest of the medications and I would monitor blood sugars closely. I would also recommend follow closely with Cardiology and Dr. Thayer will follow tomorrow. MMYOBANIL / ADALIN: [id number] / MTDD
[2017-09-23 11:35] LABS: Glucose,Whole Blood 135 mg/dL (75-99)
--- NOTE | 2017-09-23 12:08 | P.PN ---
Subjective Progress Note Date: 09/23/17 Principal diagnosis: Chest pain This is an 87-year-old female with known history of coronary artery disease and prior RCA stenting, stenting of the LAD in June 2017 who presented to the hospital with symptoms of chest discomfort. Patient also has history of hypertension, hyperlipidemia, diabetes, and paroxysmal atrial fibrillation. Patient was found to have mild ST elevation inferiorly and for this reason was taken to the cardiac catheterization lab by Dr. Warner. 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 Mild disease in the circumflex, a 20 -30 mm gradient across the aortic valve. Medical therapy advised. This morning patient went back into atrial fibrillation with a rapid ventricular response, she is on metoprolol 100 mg by mouth twice a day, dose of which had just been given. Absolutely patient had a 7 second pause and converted to normal sinus rhythm, continues to be in normal sinus rhythm this morning. Her only complaint this morning is that she feels extremely fatigued and tired. We will discontinue her aspirin and resume the xarelto 15 mg along with her Plavix. 10 you to monitor for 24 hours, if stable plan for possible discharge home tomorrow. Objective - Vital Signs Vital signs: Vital Signs Temp 98.0 F 09/23/17 11:20 Pulse 73 09/23/17 11:20 Resp 18 09/23/17 11:20 BP 125/59 09/23/17 11:20 Pulse Ox 93 L 09/23/17 11:20 Intake & Output 09/22/17 09/23/17 09/23/17 18:59 06:59 18:59 Intake Total 240 120 440 Output Total 700 Balance 240 -580 440 Weight 61.8 kg Intake: Oral 240 120 440 Output: Urine 700 Straight 600 Other: # Voids 440 1 - Exam PHYSICAL EXAMINATION: HEENT: Head is atraumatic, normocephalic. Pupils equal, round. Neck is supple. There is no elevated jugular venous pressure. HEART EXAMINATION: Heart S1 and S2 irregularly irregular systolic ejection murmur is heard. CHEST EXAMINATION: Lungs are clear to auscultation and precussion. No chest wall tenderness is noted on palpation or with deep breathing. ABDOMEN: Soft, nontender. Bowel sounds are heard. No organomegaly noted. EXTREMITIES: 2+ peripheral pulses with no evidence of peripheral edema and no calf tenderness noted. Right groin soft, no evidence of any hematoma. NEUROLOGIC patient is awake, alert and oriented -3. . - Labs CBC & Chem 7: 09/23/17 05:53 09/23/17 05:53 Labs: Abnormal Lab Results - Last 24 Hours (Table) 09/22/17 09/22/17 09/22/17 Range/Units 11:31 17:01 20:47 RBC (3.80-5.40) m/uL Hgb (11.4-16.0) gm/dL Hct (34.0-46.0) % BUN (7-17) mg/dL Creatinine (0.52-1.04) mg/dL Glucose (74-99) mg/dL POC Glucose (mg/dL) 159 H 159 H 136 H (75-99) mg/dL Urine Protein (Negative) Amorphous Sediment (None) /hpf Urine Bacteria (None) /hpf Urine Mucus (None) /hpf 09/22/17 09/23/17 09/23/17 Range/Units 23:58 05:53 05:53 RBC 3.28 L (3.80-5.40) m/uL Hgb 8.5 L (11.4-16.0) gm/dL Hct 27.2 L (34.0-46.0) % BUN 27 H (7-17) mg/dL Creatinine 1.51 H (0.52-1.04) mg/dL Glucose 122 H (74-99) mg/dL POC Glucose (mg/dL) (75-99) mg/dL Urine Protein 1+ H (Negative) Amorphous Sediment Rare H (None) /hpf Urine Bacteria Many H (None) /hpf Urine Mucus Rare H (None) /hpf 09/23/17 Range/Units 06:23 RBC (3.80-5.40) m/uL Hgb (11.4-16.0) gm/dL Hct (34.0-46.0) % BUN (7-17) mg/dL Creatinine (0.52-1.04) mg/dL Glucose (74-99) mg/dL POC Glucose (mg/dL) 124 H (75-99) mg/dL Urine Protein (Negative) Amorphous Sediment (None) /hpf Urine Bacteria (None) /hpf Urine Mucus (None) /hpf Microbiology - Last 24 Hours (Table) 09/22/17 17:05 Urine Culture - Preliminary Urine,Catheterized Assessment and Plan Plan: Assessment and plan #1 chest pain, status post cardiac catheterization which revealed patent stent in the LAD, diffuse bedp-lt-offonujr in-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 Medical therapy advised. #2 paroxysmal atrial fibrillation, patient did have an episode of A. fib with RVR this morning, after a 7 second positives converted to normal sinus rhythm and continues to be in normal sinus rhythm this morning. #3 hypertension #4 hyperlipidemia # 5 diabetes Plan We will continue the patient on metoprolol 100 mg by mouth twice a day, we will discontinue the aspirin and continue Xarelto 15 mg daily along with Plavix 75 mg daily. Because of the noted significant prior to her conversion to normal sinus rhythm today, we'll continue to observe her for 24 hours plan for possible discharge home in the morning if stable. DNP note has been reviewed, I agree with a documented findings and plan of care. Patient was seen and examined.
[2017-09-23 16:08] LABS: Hemoglobin A1C 6.4 % (4.0-6.0)
[2017-09-23] MEDS: INSULIN DETEMIR 100 UNIT/ML 10 ML VIAL SQ SCH (16:22)
[2017-09-23 16:44] LABS: Glucose,Whole Blood 178 mg/dL (75-99)
[2017-09-23] MEDS: SENNOSIDES 8.6 MG TAB PO SCH (19:58)
[2017-09-23] MEDS: amLODIPine 5 MG TAB PO SCH (19:58)
[2017-09-23] MEDS: ATORVASTATIN 40 MG TAB PO SCH (19:58)
[2017-09-23] MEDS: RIVAROXABAN 15 MG TAB PO SCH (20:00)
[2017-09-23 21:08] LABS: Glucose,Whole Blood 130 mg/dL (75-99)
[2017-09-23] MEDS: HYDROcodone/APAP 5-325MG 1 EACH TAB PO PRN (21:35)
[2017-09-24 06:06] LABS: Glucose,Whole Blood 121 mg/dL (75-99)
[2017-09-24] MEDS: INSULIN ASPART 100 UNIT/ML 1 ML 10 ML VIAL SQ SCH ×4 (06:42→19:56)
[2017-09-24] MEDS: PANTOPRAZOLE 40 MG TABLET PO SCH (06:45)
[2017-09-24] MEDS: MONTELUKAST 10 MG TAB PO SCH (08:23)
[2017-09-24] MEDS: METOPROLOL TARTRATE 50 MG TAB PO SCH ×2 (08:23→19:39)
[2017-09-24] MEDS: CLOPIDOGREL 75 MG TAB PO SCH (08:24)
[2017-09-24] MEDS: LINAGLIPTIN 5 MG TABLET PO SCH (08:24)
[2017-09-24] MEDS: ISOSORBIDE MONONITRATE ER 30 MG TAB.ER.24H PO SCH (08:24)
[2017-09-24] MEDS: IPRATROPIUM-ALBUTEROL 3 ML NEB INHALATION PRN ×3 (08:38→20:49)
[2017-09-24] MEDS: SYMBICORT 80-4.5 MCG INHALER INHALATION SCH ×2 (08:38→20:49)
[2017-09-24] MEDS: AMIODARONE 450 MG in DEXTROSE 5% IN WATER 250 ML IV SCH ×4 (08:50→16:10)
[2017-09-24] MEDS: LORazepam 1 MG TAB PO SCH ×2 (08:58→19:39)
[2017-09-24] MEDS ORDERED: DEXTROSE 5% IN WATER 100 ML with AMIODARONE 150 MG IV ONE (09:00)
--- NOTE | 2017-09-24 11:39 | P.PN ---
Subjective Progress Note Date: 09/24/17 Principal diagnosis: Chest pain This is an 87-year-old female with known history of coronary artery disease and prior RCA stenting, stenting of the LAD in June 2017 who presented to the hospital with symptoms of chest discomfort. Patient also has history of hypertension, hyperlipidemia, diabetes, and paroxysmal atrial fibrillation. Patient was found to have mild ST elevation inferiorly and for this reason was taken to the cardiac catheterization lab by Dr. Warner. 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 Mild disease in the circumflex, a 20 -30 mm gradient across the aortic valve. Medical therapy advised. This morning patient went back into atrial fibrillation with a rapid ventricular response, she is on metoprolol 100 mg by mouth twice a day, dose of which had just been given. Absolutely patient had a 7 second pause and converted to normal sinus rhythm, continues to be in normal sinus rhythm this morning. Her only complaint this morning is that she feels extremely fatigued and tired. We will discontinue her aspirin and resume the xarelto 15 mg along with her Plavix. 10 you to monitor for 24 hours, if stable plan for possible discharge home tomorrow. 09/24/2017 Patient was up this morning having a bowel movement, went back into atrial fibrillation with rapid ventricular response. Heart rate in the 160s. Started the patient this morning on IV amiodarone drip per protocol. Currently in a normal sinus rhythm. Blood pressure 130/60 with a heart rate in the 80s. Objective - Vital Signs Vital signs: Vital Signs Temp 98 F 09/24/17 08:00 Pulse 83 09/24/17 09:03 Resp 20 09/24/17 08:00 BP 131/63 09/24/17 09:03 Pulse Ox 95 09/24/17 08:00 Intake & Output 09/23/17 09/24/17 09/24/17 18:59 06:59 18:59 Intake Total 920 240 Output Total 500 1400 Balance 420 -1400 240 Weight 61.5 kg Intake: Oral 920 240 Output: Urine 500 1400 Other: # Voids 2 - Exam PHYSICAL EXAMINATION: HEENT: Head is atraumatic, normocephalic. Pupils equal, round. Neck is supple. There is no elevated jugular venous pressure. HEART EXAMINATION: Heart S1 and S2 irregularly irregular systolic ejection murmur is heard. CHEST EXAMINATION: Lungs are clear to auscultation and precussion. No chest wall tenderness is noted on palpation or with deep breathing. ABDOMEN: Soft, nontender. Bowel sounds are heard. No organomegaly noted. EXTREMITIES: 2+ peripheral pulses with no evidence of peripheral edema and no calf tenderness noted. Right groin soft, no evidence of any hematoma. NEUROLOGIC patient is awake, alert and oriented -3. . - Labs CBC & Chem 7: 09/23/17 05:53 09/23/17 05:53 Labs: Abnormal Lab Results - Last 24 Hours (Table) 09/23/17 09/23/17 09/23/17 Range/Units 05:53 16:39 21:07 POC Glucose (mg/dL) 178 H 130 H (75-99) mg/dL Hemoglobin A1c 6.4 H (4.0-6.0) % 09/24/17 Range/Units 06:03 POC Glucose (mg/dL) 121 H (75-99) mg/dL Hemoglobin A1c (4.0-6.0) % Microbiology - Last 24 Hours (Table) 09/22/17 17:05 Urine Culture - Preliminary Urine,Catheterized Assessment and Plan Plan: Assessment and plan #1 chest pain, status post cardiac catheterization which revealed patent stent in the LAD, diffuse [id number] in-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 Medical therapy advised. #2 paroxysmal atrial fibrillation, patient did have an episode of A. fib with RVR this morning, after a 7 second positives converted to normal sinus rhythm and continues to be in normal sinus rhythm this morning. #3 hypertension #4 hyperlipidemia # 5 diabetes Plan We will continue the patient on metoprolol 100 mg by mouth twice a day, Xarelto 15 mg daily along with Plavix 75 mg daily. We will also start the patient on IV amiodarone per protocol. Check lytes BUN and creatinine. DNP note has been reviewed, I agree with a documented findings and plan of care. Patient was seen and examined.
--- NOTE | 2017-09-24 12:12 | FL ---
EXAMINATION TYPE: FL barium swallow w video DATE OF EXAM: 09/24/2017 COMPARISON: Esophagram 04/20/2010 HISTORY: Difficulty swallowing TECHNIQUE: Fluoroscopy. FINDINGS: Fluoroscopic guidance was provided for the procedure performed in conjunction with the [facility] pathology department. Please see complete report forthcoming from the Speech Pathology departmen t. Various consistencies from thin liquid to solids were administered. Fluoroscopy time 1 minute 18 seconds Number of images: 0. No aspiration or penetration was evident. No significant pooling was observed in the vallecula. There was normal propulsion of the bolus. IMPRESSION: 1. Normal modified barium swallow.
[2017-09-24 12:21] LABS: Glucose,Whole Blood 217 mg/dL (75-99)
[2017-09-24 12:33] LABS: Potassium 4.2 mmol/L (3.5-5.1)
[2017-09-24] MEDS: INSULIN DETEMIR 100 UNIT/ML 10 ML VIAL SQ SCH (14:48)
[2017-09-24 17:06] LABS: Glucose,Whole Blood 212 mg/dL (75-99)
[2017-09-24] MEDS: RIVAROXABAN 15 MG TAB PO SCH (17:19)
[2017-09-24] MEDS: ATORVASTATIN 40 MG TAB PO SCH (19:39)
[2017-09-24] MEDS: SENNOSIDES 8.6 MG TAB PO SCH (20:00)
[2017-09-24 21:04] LABS: Glucose,Whole Blood 192 mg/dL (75-99)
[2017-09-24] MEDS ORDERED: hydrALAZINE HCL 50 MG TAB PO STA (21:47)
[2017-09-24] MEDS ORDERED: hydrALAZINE HCL 50 MG TAB PO PRN (21:49)
[2017-09-25] MEDS: diphenhydrAMINE ELIXIR 25 MG/10 ML CUP PO PRN (00:37)
[2017-09-25] MEDS ORDERED: LORazepam 2 MG/ML INJ IV STA (01:15)
[2017-09-25] MEDS: AMIODARONE 450 MG in DEXTROSE 5% IN WATER 250 ML IV SCH ×2 (02:39)
[2017-09-25] MEDS ORDERED: HALOPERIDOL LACTATE 5 MG/ML 1 ML VIAL IVP PRN (04:47)
[2017-09-25] MEDS: HYDROcodone/APAP 5-325MG 1 EACH TAB PO PRN ×2 (05:12→19:27)
[2017-09-25 06:08] LABS: Glucose,Whole Blood 159 mg/dL (75-99)
[2017-09-25] MEDS: INSULIN ASPART 100 UNIT/ML 1 ML 10 ML VIAL SQ SCH ×4 (06:35→20:47)
[2017-09-25] MEDS: PANTOPRAZOLE 40 MG TABLET PO SCH (06:35)
[2017-09-25] MEDS: LINAGLIPTIN 5 MG TABLET PO SCH (08:26)
[2017-09-25] MEDS: MONTELUKAST 10 MG TAB PO SCH (08:26)
[2017-09-25] MEDS: LORazepam 1 MG TAB PO SCH (08:26)
[2017-09-25] MEDS: CLOPIDOGREL 75 MG TAB PO SCH (08:26)
[2017-09-25] MEDS: ISOSORBIDE MONONITRATE ER 30 MG TAB.ER.24H PO SCH (08:26)
[2017-09-25] MEDS: METOPROLOL TARTRATE 50 MG TAB PO SCH ×2 (08:26→20:58)
[2017-09-25] MEDS: SYMBICORT 80-4.5 MCG INHALER INHALATION SCH ×2 (08:55→19:10)
[2017-09-25] MEDS: IPRATROPIUM-ALBUTEROL 3 ML NEB INHALATION PRN ×3 (08:55→15:14)
[2017-09-25 11:31] LABS: Glucose,Whole Blood 169 mg/dL (75-99)
--- NOTE | 2017-09-25 12:32 | CT ---
EXAMINATION TYPE: CT brain wo con DATE OF EXAM: 09/25/2017 COMPARISON: 05/03/2016 HISTORY: Confusion CT DLP: 1121 mGycm Automated exposure control for dose reduction was used. FINDINGS: There is no acute intracranial hemorrhage or midline shift identified. There is diffuse v entricular and sulcal prominence consistent with diffuse age-related cerebral atrophy. There a few p atchy areas of hypoattenuation in the periventricular white matter consistent with chronic small vess el ischemic change. The globes are intact and the visualized sinuses are clear other than moderate m ucosal thickening within the right sphenoid sinus. IMPRESSION: 1. No acute intracranial hemorrhage or midline shift. 2. There is diffuse age-related cerebral atrophy and chronic small vessel ischemic change noted. 3. Moderate mucosal thickening within the right sphenoid paranasal sinus.
--- NOTE | 2017-09-25 13:11 | P.PN ---
Subjective Progress Note Date: 09/25/17 Principal diagnosis: Chest pain This is an 87-year-old female with known history of coronary artery disease and prior RCA stenting, stenting of the LAD in June 2017 who presented to the hospital with symptoms of chest discomfort. Patient also has history of hypertension, hyperlipidemia, diabetes, and paroxysmal atrial fibrillation. Patient was found to have mild ST elevation inferiorly and for this reason was taken to the cardiac catheterization lab by Dr. Warner. 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 Mild disease in the circumflex, a 20 -30 mm gradient across the aortic valve. Medical therapy advised. This morning patient went back into atrial fibrillation with a rapid ventricular response, she is on metoprolol 100 mg by mouth twice a day, dose of which had just been given. Absolutely patient had a 7 second pause and converted to normal sinus rhythm, continues to be in normal sinus rhythm this morning. Her only complaint this morning is that she feels extremely fatigued and tired. We will discontinue her aspirin and resume the xarelto 15 mg along with her Plavix. 10 you to monitor for 24 hours, if stable plan for possible discharge home tomorrow. 09/24/2017 Patient was up this morning having a bowel movement, went back into atrial fibrillation with rapid ventricular response. Heart rate in the 160s. Started the patient this morning on IV amiodarone drip per protocol. Currently in a normal sinus rhythm. Blood pressure 130/60 with a heart rate in the 80s. 09/25/2017 Patient seen and examined this morning, continues to be in normal sinus rhythm, no further episodes of atrial fibrillation. IV amiodarone drip once the IV amiodarone drip was infused we will start the patient on oral amiodarone. She is having intermittent episodes of confusion although at the time of my examination she is alert and oriented 3. Objective - Vital Signs Vital signs: Vital Signs Temp 97.9 F 09/25/17 09:00 Pulse 68 09/25/17 09:15 Resp 20 09/25/17 09:00 BP 179/72 09/25/17 09:00 Pulse Ox 93 L 09/25/17 09:00 Intake & Output 01/03/18 01/04/18 01/04/18 18:59 06:59 18:59 Intake Total 1129.113 81.617 240 Output Total 500 300 Balance 1129.113 -418.383 -60 Weight 61.5 kg Intake: IV 199.8 Amiodarone 450 mg In 199.8 Dextrose 5% in Water 250 ml @ 1 MG/MIN 34.53 mls/ hr IV .Q7H31M [facility] Rx#: [id number] Intake, IV Titration 329.313 81.617 Amount Amiodarone 450 mg In 229.313 81.617 Dextrose 5% in Water 250 ml @ 1 MG/MIN 34.53 mls/ hr IV .Q7H31M [facility] Rx#: [id number] Dextrose 5% in Water 100 100 ml @ 618 mls/hr IV .Q10M ONE with Amiodarone 150 mg Rx#:[id number] Oral 600 240 Output: Urine 500 300 Other: # Voids 1 1 1 # Bowel Movements 0 1 - Exam PHYSICAL EXAMINATION: HEENT: Head is atraumatic, normocephalic. Pupils equal, round. Neck is supple. There is no elevated jugular venous pressure. HEART EXAMINATION: Heart S1 and S2 irregularly irregular systolic ejection murmur is heard. CHEST EXAMINATION: Lungs are clear to auscultation and precussion. No chest wall tenderness is noted on palpation or with deep breathing. ABDOMEN: Soft, nontender. Bowel sounds are heard. No organomegaly noted. EXTREMITIES: 2+ peripheral pulses with no evidence of peripheral edema and no calf tenderness noted. Right groin soft, no evidence of any hematoma. NEUROLOGIC patient is awake, alert and oriented -3. . - Labs CBC & Chem 7: 09/23/17 05:53 09/25/17 06:22 Labs: Abnormal Lab Results - Last 24 Hours (Table) 09/24/17 09/24/17 09/25/17 Range/Units 16:42 21:00 06:05 Chloride (98-107) mmol/L BUN (7-17) mg/dL Creatinine (0.52-1.04) mg/dL Glucose (74-99) mg/dL POC Glucose (mg/dL) 212 H 192 H 159 H (75-99) mg/dL 09/25/17 09/25/17 Range/Units 06:22 11:18 Chloride 109 H (98-107) mmol/L BUN 24 H (7-17) mg/dL Creatinine 1.56 H (0.52-1.04) mg/dL Glucose 148 H (74-99) mg/dL POC Glucose (mg/dL) 169 H (75-99) mg/dL Microbiology - Last 24 Hours (Table) 09/22/17 17:05 Urine Culture - Final Urine,Catheterized Assessment and Plan Plan: Assessment and plan #1 chest pain, status post cardiac catheterization which revealed patent stent in the LAD, diffuse [id number] in-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 Medical therapy advised. #2 paroxysmal atrial fibrillation, patient did have an episode of A. fib with RVR this morning, after a 7 second positives converted to normal sinus rhythm and continues to be in normal sinus rhythm this morning. #3 hypertension #4 hyperlipidemia # 5 diabetes Plan We will continue the patient on metoprolol 100 mg by mouth twice a day, Xarelto 15 mg daily along with Plavix 75 mg daily. Discontinue IV amiodarone drip and start the patient on oral amiodarone today. Because the patient is having intermittent confusion, a CT of the brain was requested as well as neuro consult. From cardiology's perspective she is stable for discharge once cleared by primary and neurology. DNP note has been reviewed, I agree with a documented findings and plan of care. Patient was seen and examined.
[2017-09-25] MEDS: INSULIN DETEMIR 100 UNIT/ML 10 ML VIAL SQ SCH (14:30)
[2017-09-25] MEDS: AMIODARONE 200 MG TAB PO SCH ×2 (16:21→22:00)
[2017-09-25 17:10] LABS: Glucose,Whole Blood 286 mg/dL (75-99)
[2017-09-25] MEDS: RIVAROXABAN 15 MG TAB PO SCH (17:23)
--- NOTE | 2017-09-25 20:16 | P.CNNES ---
History of Present Illness Consult date: 09/25/17 History of Present Illness: The patient is a 87-year-old woman with history of coronary artery disease who presented to the hospital on September 21 with chest pain area and was admitted to the hospital with acute STEMI area did the patient has multiple medical problems including coronary artery disease stroke TIA diabetes. Neurology is requested to see the patient regarding confusion. The patient is able to give a clear history and does not appear to be confused presently. She denies any headache dizziness or focal weakness or numbness. She has back pain which has been chronic. She normally walks at home with a walker due to degenerative disc disease. The patient did receive Benadryl early this morning which may have contributed to her confusion. Review of Systems Constitutional: Denies chills, Denies fever Eyes: denies blurred vision, denies pain Ears, nose, mouth and throat: Reports as per HPI Cardiovascular: Denies chest pain, Denies shortness of breath Musculoskeletal: Denies myalgias Neurological: Denies numbness, Denies weakness Past Medical History Past Medical History: Coronary Artery Disease (CAD), COPD, CVA/TIA, Diabetes Mellitus, GERD/Reflux, Hearing Disorder / Deafness, Hyperlipidemia, Hypertension , Myocardial Infarction (NM), Osteoarthritis (OA), Pneumonia Additional Past Medical History / Comment(s): anemia eczema, constipation, TIA X 3, esophageal dilation due to issues swallowing Last Myocardial Infarction Date:: 1998 History of Any Multi-Drug Resistant Organisms: None Reported Past Surgical History: Cholecystectomy, Heart Catheterization With Stent Additional Past Surgical History / Comment(s): cataracts, 2 ovary removed, cardiac cath with stent 07/2017 Past Anesthesia/Blood Transfusion Reactions: Previous Problems w/ Anesthesia Additional Past Anesthesia/Blood Transfusion Reaction / Comment(s): difficulty breathing after anesthesia Date of Last Stent Placement:: 07/2017 Smoking Status: Former smoker - Past Family History Father History Unknown: Yes Family Medical History: Myocardial Infarction (NM) Mother History Unknown: Yes Family Medical History: Myocardial Infarction (NM) Additional Family Medical History / Comment(s): Mother of a NM at about age 80yrs. Medications and Allergies Home Medications Medication Instructions Recorded Confirmed Type HYDROcodone/APAP 5-325MG [[place] 1 tab PO TID PRN 02/02/09/21/17 History 5-325] Omeprazole [PriLOSEC] 20 mg PO -BRKFST 02/02/14 09/21/17 History amLODIPine BESYLATE [Norvasc] 5 mg PO HS 02/02/14 09/21/17 History metFORMIN HCL [Glucophage] 500 mg PO AC-BID 02/02/14 09/21/17 History Insulin Detemir [Levemir Flextouch] 8 units SQ DAILY@1430 05/31/15 09/21/17 History Ipratropium-Albuterol Nebulize 3 ml INHALATION RT-QID PRN 08/20/16 09/21/17 History [Duoneb 0.5 mg-3 mg/3 ml Soln] Oxazepam [Serax] 15 mg PO BID 08/20/16 09/21/17 History Linagliptin [Tradjenta] 5 mg PO DAILY 05/17/17 09/21/17 History Montelukast [Singulair] 10 mg PO DAILY 05/17/17 09/21/17 History Fluticasone/Salmeterol [Advair 1 puff INHALATION RT-BID 05/18/17 09/21/17 History 250-50 Diskus] Metoprolol Tartrate [Lopressor] 100 mg PO BID 07/18/17 09/21/17 History Sennosides [Senna] 12.9 mg PO HS 07/18/17 09/21/17 History Atorvastatin [Lipitor] 40 mg PO HS #30 tab 07/23/17 09/21/17 Rx Clopidogrel [Plavix] 75 mg PO DAILY #30 tab 07/23/17 09/21/17 Rx Nitroglycerin Sl Tabs [Nitrostat] 0.4 mg SUBLINGUAL Q5M PRN #25 tab 07/23/17 Rx Rivaroxaban [Xarelto] 15 mg PO W/SUPPER #30 tab 07/23/17 09/21/17 Rx Isosorbide Mononitrate ER [Imdur] 30 mg PO DAILY #30 tab.er.24h 09/23/17 Rx Rivaroxaban [Xarelto] 15 mg PO W/SUPPER #30 tab 09/24/17 Rx Allergies Allergy/AdvReac Type Severity Reaction Status Date / Time amoxicillin trihydrate Allergy Unknown Verified 09/21/17 20:01 [From Augmentin] clindamycin HCl Allergy Unknown Verified 09/21/17 20:01 [From Cleocin] clindamycin palmitate HCl Allergy Unknown Verified 09/21/17 20:01 [From Cleocin] clindamycin phosphate Allergy Unknown Verified 09/21/17 20:01 [From Cleocin] codeine Allergy Unknown Verified 09/21/17 20:01 nitrofurantoin Allergy Unknown Verified 09/21/17 20:01 [From Macrobid] nitrofurantoin Allergy Unknown Verified 09/21/17 20:01 macrocrystalline [From Macrobid] Penicillins Allergy Unknown Verified 09/21/17 20:01 potassium clavulanate Allergy Unknown Verified 09/21/17 20:01 [From Augmentin] prednisone Allergy Unknown Verified 09/21/17 20:01 quinine Allergy Unknown Verified 09/21/17 20:01 Sulfa (Sulfonamide Allergy Unknown Verified 09/21/17 20:01 Antibiotics) sulfamethoxazole Allergy Unknown Verified 09/21/17 20:01 [From Bactrim] trimethoprim [From Bactrim] Allergy Unknown Verified 09/21/17 20:01 Physical Examination - Vital Signs Vital Signs: Vital Signs Temp Pulse Pulse Resp BP BP Pulse Ox 09/25/17 15:53 96.9 F L 82 20 141/64 96 09/25/17 13:00 96.7 F L 59 L 20 188/74 96 09/25/17 09:15 68 09/25/17 09:00 97.9 F 79 20 179/72 93 L 09/25/17 08:56 68 09/25/17 05:46 97.8 F 70 16 179/81 98 09/25/17 04:00 96.8 F L 65 16 203/79 172/84 96 09/25/17 03:56 75 14 09/24/17 21:04 64 09/24/17 20:55 52 L 149/69 09/24/17 20:49 60 98 Intake and Output 09/25/17 09/25/17 09/25/17 06:59 14:59 22:59 Intake Total 480 240 Output Total 200 300 Balance -200 180 240 Intake: IV 0 Amiodarone 450 mg In 0 Dextrose 5% in Water 250 ml @ 1 MG/MIN 34.53 mls/ hr IV .Q7H31M [facility] Rx#: [id number] Oral 480 240 Output: Urine 200 300 Other: # Voids 1 1 Weight 61.5 kg - Constitutional General appearance: average body habitus - EENT EENT: PERRL, hearing intact, vision intact - Respiratory Respiratory: lungs clear - Integumentary Integumentary: normal - Neurologic Mental status: Patient was awake alert oriented to person place situation. She knew the month she knew the year. She was she knew she was in the hospital .There is no evidence of a aphasia or dysarthria Cranial nerve examination: PERRL, EOMI, face symmetric, tongue midline Detailed motor examination: grossly full strength in all extremities Reflex and gait examination: other (Finger to nose testing intact) - Psychiatric Psychiatric: mood/affect appropriate Results - Laboratory Findings CBC and BMP: 09/23/17 05:53 09/25/17 06:22 Abnormal Lab Findings: Abnormal Labs 09/21/17 09/21/17 09/21/17 19:37 19:37 19:37 WBC 11.9 H RBC 3.71 L Hgb 9.9 L Hct 32.1 L MCHC 30.9 L RDW 15.8 H Neutrophils # PT INR APTT Chloride 108 H Carbon Dioxide BUN 26 H Creatinine 1.30 H Glucose 115 H POC Glucose (mg/dL) Hemoglobin A1c Troponin I 0.110 H* Urine Protein Amorphous Sediment Urine Bacteria Urine Mucus 09/21/17 09/21/17 09/22/17 21:37 21:37 00:54 WBC 11.7 H RBC 3.30 L Hgb 8.7 L Hct 28.6 L MCHC 30.4 L RDW Neutrophils # 8.1 H PT 13.0 H INR 1.4 H APTT 76.3 H Chloride Carbon Dioxide BUN Creatinine Glucose POC Glucose (mg/dL) Hemoglobin A1c Troponin I 0.110 H* Urine Protein Amorphous Sediment Urine Bacteria Urine Mucus 09/22/17 09/22/17 09/22/17 07:07 07:07 07:33 WBC RBC Hgb Hct MCHC RDW Neutrophils # PT INR APTT Chloride 108 H Carbon Dioxide BUN 27 H Creatinine 1.45 H Glucose 159 H POC Glucose (mg/dL) 159 H Hemoglobin A1c Troponin I 0.102 H* Urine Protein Amorphous Sediment Urine Bacteria Urine Mucus 09/22/17 09/22/17 09/22/17 11:31 17:01 20:47 WBC RBC Hgb Hct MCHC RDW Neutrophils # PT INR APTT Chloride Carbon Dioxide BUN Creatinine Glucose POC Glucose (mg/dL) 159 H 159 H 136 H Hemoglobin A1c Troponin I Urine Protein Amorphous Sediment Urine Bacteria Urine Mucus 09/22/17 09/23/17 09/23/17 23:58 05:53 05:53 WBC RBC Hgb Hct MCHC RDW Neutrophils # PT INR APTT Chloride Carbon Dioxide BUN 27 H Creatinine 1.51 H Glucose 122 H POC Glucose (mg/dL) Hemoglobin A1c 6.4 H Troponin I Urine Protein 1+ H Amorphous Sediment Rare H Urine Bacteria Many H Urine Mucus Rare H 09/23/17 09/23/17 09/23/17 05:53 06:23 11:31 WBC RBC 3.28 L Hgb 8.5 L Hct 27.2 L MCHC RDW Neutrophils # PT INR APTT Chloride Carbon Dioxide BUN Creatinine Glucose POC Glucose (mg/dL) 124 H 135 H Hemoglobin A1c Troponin I Urine Protein Amorphous Sediment Urine Bacteria Urine Mucus 09/23/17 09/23/17 09/24/17 16:39 21:07 06:03 WBC RBC Hgb Hct MCHC RDW Neutrophils # PT INR APTT Chloride Carbon Dioxide BUN Creatinine Glucose POC Glucose (mg/dL) 178 H 130 H 121 H Hemoglobin A1c Troponin I Urine Protein Amorphous Sediment Urine Bacteria Urine Mucus 09/24/17 09/24/17 09/24/17 11:50 11:56 16:42 WBC RBC Hgb Hct MCHC RDW Neutrophils # PT INR APTT Chloride Carbon Dioxide 21 L BUN 31 H Creatinine 1.57 H Glucose 224 H POC Glucose (mg/dL) 217 H 212 H Hemoglobin A1c Troponin I Urine Protein Amorphous Sediment Urine Bacteria Urine Mucus 09/24/17 09/25/17 09/25/17 21:00 06:05 06:22 WBC RBC Hgb Hct MCHC RDW Neutrophils # PT INR APTT Chloride 109 H Carbon Dioxide BUN 24 H Creatinine 1.56 H Glucose 148 H POC Glucose (mg/dL) 192 H 159 H Hemoglobin A1c Troponin I Urine Protein Amorphous Sediment Urine Bacteria Urine Mucus 09/25/17 09/25/17 11:18 16:22 WBC RBC Hgb Hct MCHC RDW Neutrophils # PT INR APTT Chloride Carbon Dioxide BUN Creatinine Glucose POC Glucose (mg/dL) 169 H 286 H Hemoglobin A1c Troponin I Urine Protein Amorphous Sediment Urine Bacteria Urine Mucus Assessment and Plan (1) Confusion caused by a drug Current Visit: Yes Status: Acute SNOMED Code(s): 949956031 (2) ST elevation myocardial infarction (STEMI) Current Visit: Yes Status: Acute SNOMED Code(s): 479368651 Plan: The patient is a 87-year-old woman who is admitted with the hospital with acute NM. Neurology was requested to see the patient regarding confusion. The patient is awake alert and oriented there is no evidence of confusion currently. Her confusion may have been related to medication i.e. Benadryl. Recommend DC Benadryl. The patient did have a CT of the brain which showed age- related changes.
[2017-09-25] MEDS: ATORVASTATIN 40 MG TAB PO SCH (20:58)
[2017-09-25] MEDS: SENNOSIDES 8.6 MG TAB PO SCH (20:58)
[2017-09-25] MEDS ORDERED: OXAZEPAM 15 MG PO SCH (21:00)
[2017-09-25 21:04] LABS: Glucose,Whole Blood 108 mg/dL (75-99)
[2017-09-25 22:36] LABS: Glucose,Whole Blood 125 mg/dL (75-99)
[2017-09-26 01:29] LABS: Appearance,Urine Cloudy (Clear); Bacteria,Urine Many /hpf; Bilirubin,Urine Negative (Negative); Blood,Urine Negative (Negative); Color,Urine Yellow; Glucose,Urine (UA) Negative (Negative); Ketones,Urine Negative (Negative); Leukocyte Esterase,Urine Large (Negative); Mucus,Urine Rare /hpf; Nitrite,Urine Positive (Negative); PH, Urine 5.5 (5.0-8.0); Protein,Urine 1+ (Negative); RBC,Urine 2 /hpf (0-5); Specific Gravity,Urine 1.009 (1.001-1.035); Squamous Epithelial Cell,Urine 3 /hpf (0-4); Urobilinogen,Urine <2.0 mg/dL (<2.0); WBC,Urine 55 /hpf (0-5)
[2017-09-26] MEDS: AMIODARONE 200 MG TAB PO SCH ×3 (02:07→08:21)
[2017-09-26 05:50] LABS: Glucose,Whole Blood 125 mg/dL (75-99)
[2017-09-26] MEDS: INSULIN ASPART 100 UNIT/ML 1 ML 10 ML VIAL SQ SCH ×2 (06:20→12:32)
[2017-09-26] MEDS: PANTOPRAZOLE 40 MG TABLET PO SCH (06:29)
[2017-09-26] MEDS: CLOPIDOGREL 75 MG TAB PO SCH (08:21)
[2017-09-26] MEDS: LINAGLIPTIN 5 MG TABLET PO SCH (08:21)
[2017-09-26] MEDS: ISOSORBIDE MONONITRATE ER 30 MG TAB.ER.24H PO SCH (08:21)
[2017-09-26] MEDS: MONTELUKAST 10 MG TAB PO SCH (08:21)
[2017-09-26] MEDS: METOPROLOL TARTRATE 50 MG TAB PO SCH (08:21)
--- NOTE | 2017-09-26 08:25 | P.DS ---
Providers Date of admission: 09/21/17 19:42 Attending physician: Georgi Thayer Consults: 09/25/17 11:31 Consult Physician Routine Consulting Provider: Georgia Cordova Consult Reason/Comments: confusion Do you want consulting provider notified?: Yes 09/21/17 19:38 Consult Physician Stat Consulting Provider: [facility] Consult Reason/Comments: STEMI ACTIVATION COMPLETE Do you want consulting provider notified?: Yes Primary care physician: Georgi Thayer - Discharge Diagnosis(es) (1) ST elevation myocardial infarction (STEMI) Current Visit: Yes Status: Acute (2) Angina at rest Current Visit: No Status: Acute Hospital Course: This is a discharge summary 87-year-old white female essentially admitted for chest pain. She ended up having cardiac catheterization but ended also having atrial fibrillation with confusion. I suspect sundowning versus side effect of medication. Benadryl was decreased and discontinued. She is discharged in stable condition and now not having any confusion. Patient Condition at Discharge: Stable Plan - Discharge Summary Discharge Rx Participant: Yes New Discharge Prescriptions: New RX: Isosorbide Mononitrate ER [Imdur] 30 mg PO DAILY #30 tab.er.24h RX: Rivaroxaban [Xarelto] 15 mg PO W/SUPPER #30 tab RX: Amiodarone [Cordarone] 200 mg PO TID #90 tab Continue RX: metFORMIN HCL [Glucophage] 500 mg PO AC-BID RX: amLODIPine BESYLATE [Norvasc] 5 mg PO HS RX: Omeprazole [PriLOSEC] 20 mg PO AC-BRKFST RX: HYDROcodone/APAP 5-325MG [[place] 5-325] 1 tab PO TID PRN PRN Reason: Pain RX: Insulin Detemir [Levemir Flextouch] 8 units SQ DAILY@1430 RX: Ipratropium-Albuterol Nebulize [Duoneb 0.5 mg-3 mg/3 ml Soln] 3 ml INHALATION RT-QID PRN PRN Reason: Shortness Of Breath RX: Oxazepam [Serax] 15 mg PO BID RX: Linagliptin [Tradjenta] 5 mg PO DAILY RX: Montelukast [Singulair] 10 mg PO DAILY RX: Fluticasone/Salmeterol [Advair 250-50 Diskus] 1 puff INHALATION RT-BID RX: Metoprolol Tartrate [Lopressor] 100 mg PO BID RX: Sennosides [Senna] 12.9 mg PO HS RX: Atorvastatin [Lipitor] 40 mg PO HS #30 tab RX: Clopidogrel [Plavix] 75 mg PO DAILY #30 tab RX: Rivaroxaban [Xarelto] 15 mg PO W/SUPPER #30 tab RX: Nitroglycerin Sl Tabs [Nitrostat] 0.4 mg SUBLINGUAL Q5M PRN #25 tab PRN Reason: Chest Pain Discharge Medication List RX: HYDROcodone/APAP 5-325MG [[place] 5-325] 1 tab PO TID PRN 02/02/14 [History] RX: Omeprazole [PriLOSEC] 20 mg PO AC-BRKFST 02/02/14 [History] RX: amLODIPine BESYLATE [Norvasc] 5 mg PO HS 02/02/14 [History] RX: metFORMIN HCL [Glucophage] 500 mg PO AC-BID 02/02/14 [History] RX: Insulin Detemir [Levemir Flextouch] 8 units SQ DAILY@1430 05/31/15 [History] RX: Ipratropium-Albuterol Nebulize [Duoneb 0.5 mg-3 mg/3 ml Soln] 3 ml INHALATION RT-QID PRN 08/20/16 [History] RX: Oxazepam [Serax] 15 mg PO BID 08/20/16 [History] RX: Linagliptin [Tradjenta] 5 mg PO DAILY 05/17/17 [History] RX: Montelukast [Singulair] 10 mg PO DAILY 05/17/17 [History] RX: Fluticasone/Salmeterol [Advair 250-50 Diskus] 1 puff INHALATION RT-BID 05/18 [History] RX: Metoprolol Tartrate [Lopressor] 100 mg PO BID 07/18/17 [History] RX: Sennosides [Senna] 12.9 mg PO HS 07/18/17 [History] RX: Atorvastatin [Lipitor] 40 mg PO HS #30 tab 07/23/17 [Rx] RX: Clopidogrel [Plavix] 75 mg PO DAILY #30 tab 07/23/17 [Rx] RX: Nitroglycerin Sl Tabs [Nitrostat] 0.4 mg SUBLINGUAL Q5M PRN #25 tab [Rx] RX: Rivaroxaban [Xarelto] 15 mg PO W/SUPPER #30 tab 07/23/17 [Rx] RX: Isosorbide Mononitrate ER [Imdur] 30 mg PO DAILY #30 tab.er.24h 09/23/17 [Rx ] RX: Rivaroxaban [Xarelto] 15 mg PO W/SUPPER #30 tab 09/24/17 [Rx] RX: Amiodarone [Cordarone] 200 mg PO TID #90 tab 09/26/17 [Rx] Follow up Appointment(s)/Referral(s): Silverio Nunez MD [STAFF PHYSICIAN] - 1 Week (Spoke to receptionist clerk. Office will call with appointment time.) Georgi Thayer MD [Primary Care Provider] - 10/02/17 3:00 pm ( with MEDICAL OR SURGICAL INSTRUMENT MAKER) [facility], [NON-STAFF] - Patient Instructions/Handouts: *Surgery [facility] - After Heart Catheterization - Mower Mechanic Instructions, Myocardial Infarction (DC), Heart Healthy Diet (DC ) Activity/Diet/Wound Care/Special Instructions: pt is cleared from cardiology Discharge Disposition: HOME SELF-CARE
[2017-09-26] MEDS: SYMBICORT 80-4.5 MCG INHALER INHALATION SCH (08:51)
[2017-09-26] MEDS: IPRATROPIUM-ALBUTEROL 3 ML NEB INHALATION PRN ×2 (08:51→12:09)
[2017-09-26 09:28] VITALS: RESP 20
[2017-09-26 11:43] VITALS: BP 149/63; TEMP 97.8
[2017-09-26 12:17] VITALS: PULSE 60
[2017-09-26 12:27] LABS: Glucose,Whole Blood 155 mg/dL (75-99)
--- NOTE | 2017-09-26 12:32 | CDI ---
Last Revision, August 2017 Documentation Clarification Form Date: 09/26/2017 12:08:00 PM From: Guadalupe Johnson RN Admit Date: 09/21/2017 7:42:00 PM Patient Name: Sonal Ulloa Visit Number: [id number] ATTENTION: The Clinical Documentation Specialists (CDI) and [facility] Coding Staff appreciate your assistance in clarifying documentation. Please respond to the clarification below the line at the bottom and electronically sign. The CDI & [facility] Coding staff will review the response and follow-up if needed. Please note: Queries are made part of the Legal Health Record. If you have any questions, please contact the author of this message via ITS. Dr. Georgi Thayer, History/Risk Factors: CAD, CVA, TIA, DM, GERD Clinical Indicators: Vital Signs: on admission T 96.8, P 72, R 18, 180/74, 100% RA Urinalysis 09/26: Cloudy, protein 1+, nitrite positive, leukocyte esterase large, wbc 55, wbc clumps few, many bacteria, rare mucus Treatment: Antibiotics: being discharged on Levaquin P.O. Please document the condition that these clinical indicators signify, whether Present on Admission, and cause if known: UTI Specify organism, if known Identify location of infection (if known) Bladder, Kidney, Urethra Pyelonephritis Urinalysis sample a contamination Other, please specify Unable to determine Please continue to document in your progress notes and discharge summary in order to capture severity of illness and risk of mortality. Include clinical findings that support your diagnosis. MTDD
--- NOTE | 2017-09-26 15:25 | P.PN ---
Subjective Progress Note Date: 09/26/17 Principal diagnosis: Chest pain This is an 87-year-old female with known history of coronary artery disease and prior RCA stenting, stenting of the LAD in June 2017 who presented to the hospital with symptoms of chest discomfort. Patient also has history of hypertension, hyperlipidemia, diabetes, and paroxysmal atrial fibrillation. Patient was found to have mild ST elevation inferiorly and for this reason was taken to the cardiac catheterization lab by Dr. Warner. 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 Mild disease in the circumflex, a 20 -30 mm gradient across the aortic valve. Medical therapy advised. This morning patient went back into atrial fibrillation with a rapid ventricular response, she is on metoprolol 100 mg by mouth twice a day, dose of which had just been given. Absolutely patient had a 7 second pause and converted to normal sinus rhythm, continues to be in normal sinus rhythm this morning. Her only complaint this morning is that she feels extremely fatigued and tired. We will discontinue her aspirin and resume the xarelto 15 mg along with her Plavix. 10 you to monitor for 24 hours, if stable plan for possible discharge home tomorrow. 09/24/2017 Patient was up this morning having a bowel movement, went back into atrial fibrillation with rapid ventricular response. Heart rate in the 160s. Started the patient this morning on IV amiodarone drip per protocol. Currently in a normal sinus rhythm. Blood pressure 130/60 with a heart rate in the 80s. 09/25/2017 Patient seen and examined this morning, continues to be in normal sinus rhythm, no further episodes of atrial fibrillation. IV amiodarone drip once the IV amiodarone drip was infused we will start the patient on oral amiodarone. She is having intermittent episodes of confusion although at the time of my examination she is alert and oriented 3. 09/26/2017 Patient seen and examined this morning, continues to be in normal sinus rhythm. Arrangements are being made for discharge today. We will continue the amiodarone 200 mg one tablet by mouth 3 times a day for one week and we will decrease that to a twice a day dose. Objective - Vital Signs Vital signs: Vital Signs Temp 97.8 F 09/26/17 11:42 Pulse 60 09/26/17 12:25 Resp 20 09/26/17 11:42 BP 149/63 09/26/17 11:42 Pulse Ox 96 09/26/17 11:42 Intake & Output 09/25/17 09/26/17 09/26/17 18:59 06:59 18:59 Intake Total 720 580 Output Total 300 Balance 420 580 Weight 61.4 kg Intake: IV 0 Amiodarone 450 mg In 0 Dextrose 5% in Water 250 ml @ 1 MG/MIN 34.53 mls/ hr IV .[id number] [facility] Rx#: [id number] Oral 720 580 Output: Urine 300 Other: # Voids 1 2 # Bowel Movements 1 - Exam PHYSICAL EXAMINATION: HEENT: Head is atraumatic, normocephalic. Pupils equal, round. Neck is supple. There is no elevated jugular venous pressure. HEART EXAMINATION: Heart S1 and S2 irregularly irregular systolic ejection murmur is heard. CHEST EXAMINATION: Lungs are clear to auscultation and precussion. No chest wall tenderness is noted on palpation or with deep breathing. ABDOMEN: Soft, nontender. Bowel sounds are heard. No organomegaly noted. EXTREMITIES: 2+ peripheral pulses with no evidence of peripheral edema and no calf tenderness noted. Right groin soft, no evidence of any hematoma. NEUROLOGIC patient is awake, alert and oriented -3. . - Labs CBC & Chem 7: 09/23/17 05:53 09/25/17 06:22 Labs: Abnormal Lab Results - Last 24 Hours (Table) 09/25/17 09/25/17 09/25/17 Range/Units 16:22 21:03 22:34 POC Glucose (mg/dL) 286 H 108 H 125 H (75-99) mg/dL Urine Appearance (Clear) Urine Protein (Negative) Urine Nitrite (Negative) Ur Leukocyte Esterase (Negative) Urine WBC (0-5) /hpf Urine WBC Clumps (None) /hpf Urine Bacteria (None) /hpf Urine Mucus (None) /hpf 09/26/17 09/26/17 09/26/17 Range/Units 00:01 05:49 12:13 POC Glucose (mg/dL) 125 H 155 H (75-99) mg/dL Urine Appearance Cloudy H (Clear) Urine Protein 1+ H (Negative) Urine Nitrite Positive H (Negative) Ur Leukocyte Esterase Large H (Negative) Urine WBC 55 H (0-5) /hpf Urine WBC Clumps Few H (None) /hpf Urine Bacteria Many H (None) /hpf Urine Mucus Rare H (None) /hpf Microbiology - Last 24 Hours (Table) 09/26/17 00:01 Urine Culture - Preliminary Urine,Clean Catch Assessment and Plan Plan: Assessment and plan #1 chest pain, status post cardiac catheterization which revealed patent stent in the LAD, diffuse [id number] in-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 Medical therapy advised. #2 paroxysmal atrial fibrillation, patient did have an episode of A. fib with RVR this morning, after a 7 second positives converted to normal sinus rhythm and continues to be in normal sinus rhythm this morning. #3 hypertension #4 hyperlipidemia # 5 diabetes Plan We will continue the patient on metoprolol 100 mg by mouth twice a day, Xarelto 15 mg daily along with Plavix 75 mg daily. Continue amiodarone 200 mg one tablet by mouth 3 times a day for one week, then twice a day dose. Follow- up appointment will be made in the office post discharge. DNP note has been reviewed, I agree with a documented findings and plan of care. Patient was seen and examined.
== END 2017-09-26 13:40 | disposition home or self-care (01) | DRG 281 ==
LOC: EC 19:12 → 6ICU 19:42 → 6SEL 20:38
PROVIDERS: ADMIT Family Medicine; ATTEND Family Medicine
PROC: B211YZZ Fluoroscopy of Multiple Coronary Arteries using Other Contrast (ICD-10-PCS; 2017-09-21)
PROC: 4A023N7 Measurement of Cardiac Sampling and Pressure, Left Heart, Percutaneous Approach (ICD-10-PCS; principal; 2017-09-21 20:03)
DX: I21.3 ST elevation (STEMI) myocardial infarction of unspecified site (principal); T82.855A Stenosis of coronary artery stent, initial encounter; E11.22 Type 2 diabetes mellitus with diabetic chronic kidney disease; I48.0 Paroxysmal atrial fibrillation; N39.0 Urinary tract infection, site not specified; J44.9 Chronic obstructive pulmonary disease, unspecified; N18.3 Chronic kidney disease, stage 3 (moderate); E78.5 Hyperlipidemia, unspecified; G89.29 Other chronic pain; B96.20 Unspecified Escherichia coli [E. coli] as the cause of diseases classified elsewhere; H91.90 Unspecified hearing loss, unspecified ear; I12.9 Hypertensive chronic kidney disease with stage 1 through stage 4 chronic kidney disease, or unspecified chronic kidney disease; I25.119 Atherosclerotic heart disease of native coronary artery with unspecified angina pectoris; I25.2 Old myocardial infarction; K21.9 Gastro-esophageal reflux disease without esophagitis; F32.9 Major depressive disorder, single episode, unspecified; M19.90 Unspecified osteoarthritis, unspecified site; M54.9 Dorsalgia, unspecified; R41.0 Disorientation, unspecified; T50.905A Adverse effect of unspecified drugs, medicaments and biological substances, initial encounter; Y92.9 Unspecified place or not applicable; L30.9 Dermatitis, unspecified; Z79.01 Long term (current) use of anticoagulants; Z79.02 Long term (current) use of antithrombotics/antiplatelets; Z79.4 Long term (current) use of insulin; Z79.899 Other long term (current) drug therapy; Z79.82 Long term (current) use of aspirin; Z88.1 Allergy status to other antibiotic agents; Z88.5 Allergy status to narcotic agent; Z88.0 Allergy status to penicillin; Z88.8 Allergy status to other drugs, medicaments and biological substances; Z88.2 Allergy status to sulfonamides; Z87.891 Personal history of nicotine dependence; Z87.01 Personal history of pneumonia (recurrent); Z86.73 Personal history of transient ischemic attack (TIA), and cerebral infarction without residual deficits; Z82.49 Family history of ischemic heart disease and other diseases of the circulatory system
CPT/HCPCS: 36415; 70450; 71010; 74230; 80048; 80053; 81001; 82550; 82553; 83036; 83735; 84484; 85025; 85610; 85730; 87077; 87086; 87186; 93005; 93458; 94640; 94760; 96374; 96375; 99285

== ENCOUNTER 2017-09-29 12:57 | Inpatient (IN) | payer MEDICARE ==
[2017-09-29] MEDS ORDERED: ASPIRIN 81 MG PO STA (13:18)
[2017-09-29] MEDS ORDERED: NITROGLYCERIN OINT 1 INCH/GM PACKET TOPICAL STA (13:18)
--- NOTE | 2017-09-29 13:22 | ED ---
General Adult HPI - General Chief complaint: Recheck/Abnormal Lab/Rx Stated complaint: New medication Time Seen by Provider: 09/29/17 13:12 Source: patient, EMS Mode of arrival: EMS Limitations: no limitations - History of Present Illness Initial comments: Is 87-year-old white female presents with a complaint of feeling dizzy upon standing today. She states that she also has had some left sided chest pain which she describes as a soreness. This will radiate to the right chest. She has an occasional shortness of breath as well. She has had some minimal nausea but no vomiting. There's been no fevers or chills. She states that she has had a hard time sleeping over the last couple of days. She further relates that her right leg was jerking. She also has a history of coronary artery disease and just had a heart stent placed approximately one and a half weeks ago. She also has had multiple previous cardiac stents. She states that she felt very unsteady with ambulation this morning. She does relate that she has had a slight cough with occasional yellowish production. Overall, she is not a very accurate historian. Her daughter later does show up and relates that she was just discharged from the hospital 3 days ago. She did have the extent well in the hospital. She also was diagnosed with urinary tract infection at the end of her hospital stay. They placed her on Levaquin for which she has been taking. The culture came back positive for E. coli and it is susceptible to Levaquin. The daughter also states that she was placed on amiodarone 3 times a day. The visiting nurse apparently was worried about her being on this this medication 3 times a day and wanted the family to further clarify with the nailing machine operator automatic. The daughter has been unable to get a hold of the nailing machine operator automatic thus far in the daughter doesn't want this clarified well she is in the hospital. No other complaints or modifying factors. - Related Data Home Medications Medication Instructions Recorded Confirmed HYDROcodone/APAP 5-325MG [[place] 1 tab PO TID PRN 02/02/14 09/29/17 5-325] Omeprazole [PriLOSEC] 20 mg PO AC-BRKFST 02/02/14 09/29/17 amLODIPine BESYLATE [Norvasc] 5 mg PO HS 02/02/14 09/29/17 metFORMIN HCL [Glucophage] 500 mg PO AC-BID 02/02/14 09/29/17 Insulin Detemir [Levemir Flextouch] 8 units SQ DAILY@1430 05/31/15 09/29/17 Ipratropium-Albuterol Nebulize 3 ml INHALATION RT-QID PRN 08/20/16 09/29/17 [Duoneb 0.5 mg-3 mg/3 ml Soln] Oxazepam [Serax] 15 mg PO BID 08/20/16 09/29/17 Linagliptin [Tradjenta] 5 mg PO DAILY 05/17/17 09/29/17 Montelukast [Singulair] 10 mg PO DAILY 05/17/17 09/29/17 Fluticasone/Salmeterol [Advair 1 puff INHALATION RT-BID 05/18/17 09/29/17 250-50 Diskus] Metoprolol Tartrate [Lopressor] 100 mg PO BID 07/18/17 09/29/17 Sennosides [Senna] 12.9 mg PO HS 07/18/17 09/29/17 Previous Rx's Medication Instructions Recorded Atorvastatin [Lipitor] 40 mg PO HS #30 tab 07/23/17 Clopidogrel [Plavix] 75 mg PO DAILY #30 tab 07/23/17 Nitroglycerin Sl Tabs [Nitrostat] 0.4 mg SUBLINGUAL Q5M PRN #25 tab 07/23/17 Isosorbide Mononitrate ER [Imdur] 30 mg PO DAILY #30 tab.er.24h 09/23/17 Rivaroxaban [Xarelto] 15 mg PO W/SUPPER #30 tab 09/24/17 Amiodarone [Cordarone] 200 mg PO TID #90 tab 09/26/17 Levofloxacin [Levaquin] 500 mg PO DAILY #5 tab 09/26/17 Allergies Allergy/AdvReac Type Severity Reaction Status Date / Time amoxicillin trihydrate Allergy Unknown Verified 09/29/17 13:40 [From Augmentin] clindamycin HCl Allergy Unknown Verified 09/29/17 13:40 [From Cleocin] clindamycin palmitate HCl Allergy Unknown Verified 09/29/17 13:40 [From Cleocin] clindamycin phosphate Allergy Unknown Verified 09/29/17 13:40 [From Cleocin] codeine Allergy Unknown Verified 09/29/17 13:40 nitrofurantoin Allergy Unknown Verified 09/29/17 13:40 [From Macrobid] nitrofurantoin Allergy Unknown Verified 09/29/17 13:40 macrocrystalline [From Macrobid] Penicillins Allergy Unknown Verified 09/29/17 13:40 potassium clavulanate Allergy Unknown Verified 09/29/17 13:40 [From Augmentin] prednisone Allergy Unknown Verified 09/29/17 13:40 quinine Allergy Unknown Verified 09/29/17 13:40 Sulfa (Sulfonamide Allergy Unknown Verified 09/29/17 13:40 Antibiotics) sulfamethoxazole Allergy Unknown Verified 09/29/17 13:40 [From Bactrim] trimethoprim [From Bactrim] Allergy Unknown Verified 09/29/17 13:40 Review of Systems ROS Statement: Those systems with pertinent positive or pertinent negative responses have been documented in the HPI. ROS Other: All systems not noted in ROS Statement are negative. Past Medical History Past Medical History: Coronary Artery Disease (CAD), COPD, CVA/TIA, Diabetes Mellitus, GERD/Reflux, Hearing Disorder / Deafness, Hyperlipidemia, Hypertension , Myocardial Infarction ([place]), Osteoarthritis (OA), Pneumonia Additional Past Medical History / Comment(s): anemia eczema, constipation, TIA X 3, esophageal dilation due to issues swallowing Last Myocardial Infarction Date:: 1998 History of Any Multi-Drug Resistant Organisms: None Reported Past Surgical History: Cholecystectomy, Heart Catheterization With Stent Additional Past Surgical History / Comment(s): cataracts, 2 ovary removed, cardiac cath with stent 07/2017 Past Anesthesia/Blood Transfusion Reactions: Previous Problems w/ Anesthesia Additional Past Anesthesia/Blood Transfusion Reaction / Comment(s): difficulty breathing after anesthesia Date of Last Stent Placement:: 07/2017 Past Psychological History: Depression Smoking Status: Former smoker Past Alcohol Use History: None Reported Past Drug Use History: None Reported - Past Family History Father History Unknown: Yes Family Medical History: Myocardial Infarction ([place]) Mother History Unknown: Yes Family Medical History: Myocardial Infarction ([place]) Additional Family Medical History / Comment(s): Mother of a [place] at about age 80yrs. General Exam - General Exam Comments Initial Comments: GENERAL: The patient is well nourished and well hydrated. VITAL SIGNS: Heart rate, blood pressure, respiratory rate reviewed as recorded in nurse's notes. EYES: Pupils are round and reactive. Extraocular movements are intact. No conjunctival / lid redness or swelling. ENT: No external evidence of injury, swelling, or ecchymosis. Airway is patent. Throat is clear. NECK: Nontender. No swelling or evidence of injury. No subcutaneous emphysema. Trachea is midline. No thyroid mass. HEART: Regular rate and rhythm. Good peripheral pulses. LUNGS/CHEST: Breath sounds clear and equal bilaterally. No rales, rhonchi, or wheezes. No ecchymosis, subcutaneous emphysema, or tenderness. ABDOMEN: Abdomen soft without tenderness. No palpable masses or organomegaly. No peritoneal signs. No abdominal wall swelling or ecchymosis. EXTREMITIES: No extremity tenderness. Normal muscle tone and function. No thoracolumbar tenderness. NEUROLOGIC: Sensation is grossly intact. Cranial nerve exam reveals face is symmetrical, tongue is midline, speech is clear. SKIN: No abrasions or ecchymosis is noted. No induration or masses noted. PSYCHIATRIC: Alert and oriented. Appropriate behavior and judgment. Limitations: no limitations Course Vital Signs 09/29/17 09/29/17 13:08 13:59 Temperature 98.2 F Pulse Rate 58 L 54 L Respiratory 16 18 Rate Blood Pressure 147/96 150/62 O2 Sat by Pulse 98 99 Oximetry Medical Decision Making - Medical Decision Making The patient was seen and examined. All diagnostics were reviewed. The patient received aspirin as well as Nitropaste. The EKG shows a sinus bradycardia with occasional PVC. The IL interval is 192, QRS duration is 94, and the QTc interval is 482. The chest x-ray shows a likely right middle lobe pneumonia versus atelectasis per radiologist. This is new as compared to previous x- rays. The laboratories reviewed and does show worsened renal function consistent with acute kidney injury as well as hyperkalemia and worsened anemia. The d-dimer is elevated but it is felt as though she has a low likelihood of PE as the medications were updated and it appears that she is on Xaralto. The urine does show evidence of urinary tract infection despite being on Levaquin for the past 3 days. She also is having worsening chest pain and it is felt as though she benefit from admission to the hospital and further evaluation per cardiology. Once again, the daughter wants the amiodarone dosing clarified with cardiology. He case is discussed with Dr. Thayer and he is agreeable with admission as well. - Lab Data Result diagrams: 09/29/17 13:42 09/29/17 13:42 Lab Results 09/29/17 09/29/17 09/29/17 Range/Units 13:42 13:42 13:42 WBC 10.6 (3.8-10.6) k/uL RBC 3.08 L (3.80-5.40) m/uL Hgb 7.8 L (11.4-16.0) gm/dL Hct 25.7 L (34.0-46.0) % MCV 83.2 (80.0-100.0) fL MCH 25.2 (25.0-35.0) pg MCHC 30.3 L (31.0-37.0) g/dL RDW 13.8 (11.5-15.5) % Plt Count 499 H (150-450) k/uL Neutrophils % 73 % Lymphocytes % 15 % Monocytes % 7 % Eosinophils % 3 % Basophils % 0 % Neutrophils # 7.8 H (1.3-7.7) k/uL Lymphocytes # 1.6 (1.0-4.8) k/uL Monocytes # 0.7 (0-1.0) k/uL Eosinophils # 0.4 (0-0.7) k/uL Basophils # 0.0 (0-0.2) k/uL Hypochromasia Slight PT (9.0-12.0) sec INR (<1.2) APTT (22.0-30.0) sec D-Dimer (<0.60) mg/L FEU Sodium 138 (137-145) mmol/L Potassium 5.4 H (3.5-5.1) mmol/L Chloride 105 (98-107) mmol/L Carbon Dioxide 21 L (22-30) mmol/L Anion Gap 12 mmol/L BUN 40 H (7-17) mg/dL Creatinine 2.20 H (0.52-1.04) mg/dL Est GFR (MDRD) Af Amer 26 (>60 ml/min/1.73 sqM) Est GFR (MDRD) Non-Af 21 (>60 ml/min/1.73 sqM) Glucose 107 H (74-99) mg/dL Calcium 8.9 (8.4-10.2) mg/dL Magnesium 2.0 (1.6-2.3) mg/dL Total Bilirubin 0.5 (0.2-1.3) mg/dL AST 30 (14-36) U/L ALT 29 (9-52) U/L Alkaline Phosphatase 69 (38-126) U/L Total Creatine Kinase 80 (30-135) U/L CK-MB (CK-2) 1.7 (0.0-2.4) ng/mL CK-MB (CK-2) Rel Index 2.1 Troponin I 0.012 (0.000-0.034) ng/mL NT-Pro-B Natriuret Pep pg/mL Total Protein 6.5 (6.3-8.2) g/dL Albumin 3.2 L (3.5-5.0) g/dL Urine Color Urine Appearance (Clear) Urine pH (5.0-8.0) Ur Specific [place] (1.001-1.035) Urine Protein (Negative) Urine Glucose (UA) (Negative) Urine Ketones (Negative) Urine Blood (Negative) Urine Nitrite (Negative) Urine Bilirubin (Negative) Urine Urobilinogen (<2.0) mg/dL Ur Leukocyte Esterase (Negative) Urine WBC (0-5) /hpf Urine WBC Clumps (None) /hpf Ur Squamous Epith Cells (0-4) /hpf Urine Bacteria (None) /hpf Urine Mucus (None) /hpf 09/29/17 09/29/17 09/29/17 Range/Units 13:42 13:42 14:12 WBC (3.8-10.6) k/uL RBC (3.80-5.40) m/uL Hgb (11.4-16.0) gm/dL Hct (34.0-46.0) % MCV (80.0-100.0) fL MCH (25.0-35.0) pg MCHC (31.0-37.0) g/dL RDW (11.5-15.5) % Plt Count (150-450) k/uL Neutrophils % % Lymphocytes % % Monocytes % % Eosinophils % % Basophils % % Neutrophils # (1.3-7.7) k/uL Lymphocytes # (1.0-4.8) k/uL Monocytes # (0-1.0) k/uL Eosinophils # (0-0.7) k/uL Basophils # (0-0.2) k/uL Hypochromasia PT 10.9 (9.0-12.0) sec INR 1.1 (<1.2) APTT 28.2 (22.0-30.0) sec D-Dimer 1.74 H (<0.60) mg/L FEU Sodium (137-145) mmol/L Potassium (3.5-5.1) mmol/L Chloride (98-107) mmol/L Carbon Dioxide (22-30) mmol/L Anion Gap mmol/L BUN (7-17) mg/dL Creatinine (0.52-1.04) mg/dL Est GFR (MDRD) Af Amer (>60 ml/min/1.73 sqM) Est GFR (MDRD) Non-Af (>60 ml/min/1.73 sqM) Glucose (74-99) mg/dL Calcium (8.4-10.2) mg/dL Magnesium (1.6-2.3) mg/dL Total Bilirubin (0.2-1.3) mg/dL AST (14-36) U/L ALT (9-52) U/L Alkaline Phosphatase (38-126) U/L Total Creatine Kinase (30-135) U/L CK-MB (CK-2) (0.0-2.4) ng/mL CK-MB (CK-2) Rel Index Troponin I (0.000-0.034) ng/mL NT-Pro-B Natriuret Pep 4420 pg/mL Total Protein (6.3-8.2) g/dL Albumin (3.5-5.0) g/dL Urine Color Yellow Urine Appearance Cloudy H (Clear) Urine pH 5.5 (5.0-8.0) Ur Specific [place] 1.013 (1.001-1.035) Urine Protein 2+ H (Negative) Urine Glucose (UA) Negative (Negative) Urine Ketones Negative (Negative) Urine Blood Negative (Negative) Urine Nitrite Negative (Negative) Urine Bilirubin Negative (Negative) Urine Urobilinogen <2.0 (<2.0) mg/dL Ur Leukocyte Esterase Moderate H (Negative) Urine WBC 27 H (0-5) /hpf Urine WBC Clumps Moderate H (None) /hpf Ur Squamous Epith Cells 5 H (0-4) /hpf Urine Bacteria Many H (None) /hpf Urine Mucus Rare H (None) /hpf Disposition Clinical Impression: Chest pain, Nausea, Dizziness, Hypertension, Dyspnea, Anemia, UTI (urinary tract infection), Acute kidney injury, Hyperkalemia, Bradycardia Disposition: ADMITTED IP TO THIS HOSP Condition: Fair Referrals: Georgi Thayer MD [Primary Care Provider] - 1-2 days Time of Disposition: 15:20 Decision Date: 09/29/17 Decision Time: 15:20
[2017-09-29 13:52] LABS: Basophils % (A) 0 %; Eosinophils # (A) 0.4 k/uL (0-0.7); Eosinophils % (A) 3 %; HCT 25.7 % (34.0-46.0); HGB 7.8 gm/dL (11.4-16.0); Hypochromasia Slight; Lymphocytes # (A) 1.6 k/uL (1.0-4.8); Lymphocytes % (A) 15 %; MCH 25.2 pg (25.0-35.0); MCHC 30.3 g/dL (31.0-37.0); MCV 83.2 fL (80.0-100.0); Mean Platelet Volume 6.9; Monocytes # (A) 0.7 k/uL (0-1.0); Monocytes % (A) 7 %; Neutrophils # (A) 7.8 k/uL (1.3-7.7); Neutrophils % (A) 73 %; Platelet Count 499 k/uL (150-450); RBC 3.08 m/uL (3.80-5.40); RDW 13.8 % (11.5-15.5); WBC 10.6 k/uL (3.8-10.6)
[2017-09-29 14:06] LABS: Albumin 3.2 g/dL (3.5-5.0); Calcium 8.9 mg/dL (8.4-10.2); Total Bilirubin 0.5 mg/dL (0.2-1.3); Total Protein 6.5 g/dL (6.3-8.2)
[2017-09-29 14:07] LABS: D-Dimer 1.74 mg/L FEU (<0.60)
[2017-09-29 14:09] LABS: Potassium 5.4 mmol/L (3.5-5.1)
[2017-09-29 14:11] LABS: INR 1.1 (<1.2); Partial Thromboplastin Time 28.2 sec (22.0-30.0); Prothrombin Time 10.9 sec (9.0-12.0)
--- NOTE | 2017-09-29 14:15 | XR ---
EXAMINATION TYPE: XR chest 2V DATE OF EXAM: 09/29/2017 COMPARISON: 09/21/2017 HISTORY: Chest pain on the left. TECHNIQUE: Frontal and lateral views of the chest are obtained. FINDINGS: Copious soft tissues overlie the lung bases. There is patient rotation with mediastinal sh ift to the right subsequently. However, there is poor delineation of the right cardiac border seconda ry to a new right middle lobe opacity with air bronchograms. Remainder the lungs are clear. There is accentuated right pulmonary vasculature secondary to rotation. Diffuse osseous demineralization and e xaggeration of the thoracic kyphosis are noted as well as multilevel mild degenerative changes. Cardi ac silhouette is grossly enlarged. Cholecystectomy clips reside within the right upper quadrant. IMPRESSION: New right middle lobe opacity there may represent atelectasis or pneumonia in the appro priate clinical setting.
[2017-09-29 14:32] LABS: Creatine Kinase MB 1.7 ng/mL (0.0-2.4); Troponin I 0.012 ng/mL (0.000-0.034)
[2017-09-29] MEDS ORDERED: VANCOMYCIN IV PER PHARMACY 1 EACH MISC MISCELLANE PRN ×2 (14:36→15:16)
[2017-09-29] MEDS ORDERED: LEVOFLOXACIN 750MG-D5W PMX 750 MG in DEXTROSE/WATER 1 150ML.BAG IVPB STA (14:36)
[2017-09-29] MEDS ORDERED: VANCOMYCIN 1,000 MG in SODIUM CHLORIDE 0.9% 250 ML IVPB STA (14:36)
[2017-09-29 14:48] LABS: Appearance,Urine Cloudy (Clear); Bacteria,Urine Many /hpf; Bilirubin,Urine Negative (Negative); Blood,Urine Negative (Negative); Color,Urine Yellow; Glucose,Urine (UA) Negative (Negative); Ketones,Urine Negative (Negative); Leukocyte Esterase,Urine Moderate (Negative); Mucus,Urine Rare /hpf; Nitrite,Urine Negative (Negative); PH, Urine 5.5 (5.0-8.0); Protein,Urine 2+ (Negative); Specific Gravity,Urine 1.013 (1.001-1.035); Squamous Epithelial Cell,Urine 5 /hpf (0-4); Urobilinogen,Urine <2.0 mg/dL (<2.0); WBC,Urine 27 /hpf (0-5)
[2017-09-29] MEDS ORDERED: CEFEPIME 2 GM in SODIUM CHLORIDE 0.9% 50 ML IVPB STA (15:15)
[2017-09-29] MEDS ORDERED: LEVOFLOXACIN 500MG-D5W PMX 500 MG in DEXTROSE/WATER 1 100ML.BAG IVPB STA (15:17)
[2017-09-29] MEDS ORDERED: VANCOMYCIN 1,000 MG in SODIUM CHLORIDE 0.9% 250 ML IVPB ONE (16:00)
[2017-09-29] MEDS ORDERED: CEFEPIME 2 GM in SODIUM CHLORIDE 0.9% 50 ML IVPB SCH (16:00)
[2017-09-29] MEDS ORDERED: metFORMIN 500 MG TAB PO SCH (17:30)
[2017-09-29 17:57] LABS: Glucose,Whole Blood 124 mg/dL (75-99)
[2017-09-29] MEDS: VANCOMYCIN 1,000 MG in SODIUM CHLORIDE 0.9% 250 ML IVPB ONE ×2 (18:35→18:42)
[2017-09-29] MEDS: AMIODARONE 200 MG TAB PO SCH ×2 (18:35→21:58)
[2017-09-29] MEDS: RIVAROXABAN 15 MG TAB PO SCH (18:35)
[2017-09-29] MEDS: NITROGLYCERIN OINT 1 INCH/GM PACKET TOPICAL SCH (18:35)
[2017-09-29] MEDS: INSULIN DETEMIR 100 UNIT/ML 10 ML VIAL SQ SCH (18:46)
[2017-09-29 19:59] LABS: Creatine Kinase 74 U/L (30-135)
[2017-09-29 20:11] LABS: Creatine Kinase MB 1.8 ng/mL (0.0-2.4); Troponin I <0.012 ng/mL (0.000-0.034)
[2017-09-29] MEDS: INSULIN ASPART 100 UNIT/ML 1 ML 10 ML VIAL SQ SCH (20:43)
[2017-09-29 20:44] LABS: Glucose,Whole Blood 116 mg/dL (75-99)
[2017-09-29] MEDS ORDERED: OXAZEPAM 15 MG PO SCH (21:00)
[2017-09-29] MEDS: SYMBICORT 80-4.5 MCG INHALER INHALATION SCH (21:05)
[2017-09-29] MEDS: ATORVASTATIN 40 MG TAB PO SCH (21:59)
[2017-09-29] MEDS: SENNOSIDES 8.6 MG TAB PO SCH (21:59)
[2017-09-29] MEDS: METOPROLOL TARTRATE 50 MG TAB PO SCH (21:59)
[2017-09-29] MEDS: amLODIPine 5 MG TAB PO SCH (21:59)
[2017-09-30 01:33] LABS: Hemoglobin A1C 6.6 % (4.0-6.0)
[2017-09-30 02:16] LABS: Creatine Kinase MB 1.9 ng/mL (0.0-2.4); Troponin I 0.014 ng/mL (0.000-0.034)
[2017-09-30] MEDS: NITROGLYCERIN OINT 1 INCH/GM PACKET TOPICAL SCH ×2 (03:52→06:01)
[2017-09-30 06:10] LABS: Glucose,Whole Blood 106 mg/dL (75-99)
[2017-09-30] MEDS: INSULIN ASPART 100 UNIT/ML 1 ML 10 ML VIAL SQ SCH ×4 (06:25→21:24)
[2017-09-30] MEDS: PANTOPRAZOLE 40 MG TABLET PO SCH (06:34)
--- NOTE | 2017-09-30 07:07 | P.HPIM ---
History of Present Illness H&P Date: 09/30/17 Chief Complaint: Pneumonia This is a history of physical on an 87-year-old white female who was recently discharged for chest pain with new onset atrial fibrillation. She is in placed on amiodarone and this is been tapering. Unfortunate, she had acute mental status changes with psychosis. Question element of Ativan. Neurology cleared her at this visit. However, she was readmitted secondary to chest pain. I had a message from my staff yesterday that she had refused home health visitation. She vehemently denies this at this time. She states that there was a new nurse that came to the house over the past weekend. Otherwise, she is somewhat a poor historian. No voiding symptoms noted. No significant nausea, vomiting or diarrhea noted from the nursing staff. She is described no significant chest pressure. She's been on amiodarone tapering dose. Cardiology is now been consulted. Enzymatic elevations negative at this time. She is seems to be resting comfortably. However given the fact that she's been in the hospital for multiple admissions in the last month, she's been placed on an antibiotic treatment. She was recently discharged with urinary tract infection. Question need to repeat urinalysis with culture and sensitivity. Review of Systems Constitutional: Denies chills, Denies fever Eyes: denies blurred vision, denies pain Ears, nose, mouth and throat: Denies headache, Denies sore throat Cardiovascular: Denies chest pain, Denies shortness of breath Respiratory: Reports as per HPI Gastrointestinal: Denies abdominal pain, Denies diarrhea, Denies nausea, Denies vomiting Genitourinary: Denies dysuria, Denies hematuria Past Medical History Past Medical History: Coronary Artery Disease (CAD), Chest Pain / Angina, COPD, CVA/TIA, Diabetes Mellitus, GERD/Reflux, Hearing Disorder / Deafness, Hyperlipidemia, Hypertension, Myocardial Infarction ([place]), Osteoarthritis (OA), Pneumonia Additional Past Medical History / Comment(s): anemia, eczema, constipation, TIA X 3, esophageal dilation due to issues swallowing Last Myocardial Infarction Date:: 1998, 09/21/17 History of Any Multi-Drug Resistant Organisms: None Reported Past Surgical History: Cholecystectomy, Heart Catheterization With Stent Additional Past Surgical History / Comment(s): cataracts w/ lens implants, 2 ovary removed, heart caths :04/30/96 stent to rca, 03/18/2000 stent to mid rca, stent to lad Past Anesthesia/Blood Transfusion Reactions: Previous Problems w/ Anesthesia Additional Past Anesthesia/Blood Transfusion Reaction / Comment(s): difficulty breathing after anesthesia Date of Last Stent Placement:: 06/2017 Smoking Status: Former smoker - Past Family History Father History Unknown: Yes Family Medical History: Myocardial Infarction ([place]) Mother History Unknown: Yes Family Medical History: Myocardial Infarction ([place]) Additional Family Medical History / Comment(s): Mother of a [place] at about age 80yrs. Medications and Allergies Home Medications Medication Instructions Recorded Confirmed Type HYDROcodone/APAP 5-325MG [Amoret 1 tab PO TID PRN 02/02/14 09/29/17 History 5-325] Omeprazole [PriLOSEC] 20 mg PO AC-BRKFST 02/02/14 09/29/17 History amLODIPine BESYLATE [Norvasc] 5 mg PO HS 02/02/14 09/29/17 History metFORMIN HCL [Glucophage] 500 mg PO AC-BID 02/02/14 09/29/17 History Insulin Detemir [Levemir Flextouch] 8 units SQ DAILY@1430 05/31/15 09/29/17 History Ipratropium-Albuterol Nebulize 3 ml INHALATION RT-QID PRN 08/20/16 09/29/17 History [Duoneb 0.5 mg-3 mg/3 ml Soln] Oxazepam [Serax] 15 mg PO BID 08/20/16 09/29/17 History Linagliptin [Tradjenta] 5 mg PO DAILY 05/17/17 09/29/17 History Montelukast [Singulair] 10 mg PO DAILY 05/17/17 09/29/17 History Fluticasone/Salmeterol [Advair 1 puff INHALATION RT-BID 05/18/17 09/29/17 History 250-50 Diskus] Metoprolol Tartrate [Lopressor] 100 mg PO BID 07/18/17 09/29/17 History Sennosides [Senna] 12.9 mg PO HS 07/18/17 09/29/17 History Atorvastatin [Lipitor] 40 mg PO HS #30 tab 07/23/17 09/29/17 Rx Clopidogrel [Plavix] 75 mg PO DAILY #30 tab 07/23/17 09/29/17 Rx Nitroglycerin Sl Tabs [Nitrostat] 0.4 mg SUBLINGUAL Q5M PRN #25 tab 07/23/1705/09 Rx Isosorbide Mononitrate ER [Imdur] 30 mg PO DAILY #30 tab.er.24h 09/23/17 Rx Rivaroxaban [Xarelto] 15 mg PO W/SUPPER #30 tab 09/24/17 09/29/17 Rx Amiodarone [Cordarone] 200 mg PO TID #90 tab 09/26/17 09/29/17 Rx Levofloxacin [Levaquin] 500 mg PO DAILY #5 tab 09/26/17 09/29/17 Rx Allergies Allergy/AdvReac Type Severity Reaction Status Date / Time amoxicillin trihydrate Allergy Unknown Verified 09/29/17 13:40 [From Augmentin] clindamycin HCl Allergy Unknown Verified 09/29/17 13:40 [From Cleocin] clindamycin palmitate HCl Allergy Unknown Verified 09/29/17 13:40 [From Cleocin] clindamycin phosphate Allergy Unknown Verified 09/29/17 13:40 [From Cleocin] codeine Allergy Unknown Verified 09/29/17 13:40 nitrofurantoin Allergy Unknown Verified 09/29/17 13:40 [From Macrobid] nitrofurantoin Allergy Unknown Verified 09/29/17 13:40 macrocrystalline [From Macrobid] Penicillins Allergy Unknown Verified 09/29/17 13:40 potassium clavulanate Allergy Unknown Verified 09/29/17 13:40 [From Augmentin] prednisone Allergy Unknown Verified 09/29/17 13:40 quinine Allergy Unknown Verified 09/29/17 13:40 Sulfa (Sulfonamide Allergy Unknown Verified 09/29/17 13:40 Antibiotics) sulfamethoxazole Allergy Unknown Verified 09/29/17 13:40 [From Bactrim] trimethoprim [From Bactrim] Allergy Unknown Verified 09/29/17 13:40 Physical Exam Vitals: Vital Signs Temp Pulse Pulse Resp BP BP Pulse Ox 09/30/17 04:00 97 F L 70 16 122/66 100 09/30/17 00:00 96.2 F L 75 14 118/66 100 09/29/17 20:00 96.0 F L 52 L 12 136/70 100 09/29/17 17:37 96.7 F L 61 20 112/52 100 09/29/17 17:08 51 L 18 175/72 100 09/29/17 16:36 48 L 18 155/70 99 09/29/17 15:32 55 L 18 152/70 100 09/29/17 13:59 54 L 18 150/62 99 09/29/17 13:08 98.2 F 58 L 16 147/96 98 Intake and Output 09/29/17 09/30/17 09/30/17 22:59 06:59 14:59 Intake Total 100 Balance 100 Intake: Intake, IV Titration 100 Amount Levofloxacin 500Mg-D5w 100 Pmx 500 mg In Dextrose/ Water 1 100ml.bag @ 100 mls/hr IVPB ONCE STA Rx#: [id number] Other: # Voids 1 Results CBC & Chem 7: 09/29/17 13:42 09/29/17 13:42 Labs: Abnormal Lab Results - Last 24 Hours (Table) 09/29/17 09/29/17 09/29/17 Range/Units 13:42 13:42 13:42 RBC 3.08 L (3.80-5.40) m/uL Hgb 7.8 L (11.4-16.0) gm/dL Hct 25.7 L (34.0-46.0) % MCHC 30.3 L (31.0-37.0) g/dL Plt Count 499 H (150-450) k/uL Neutrophils # 7.8 H (1.3-7.7) k/uL D-Dimer 1.74 H (<0.60) mg/L FEU Potassium 5.4 H (3.5-5.1) mmol/L Carbon Dioxide 21 L (22-30) mmol/L BUN 40 H (7-17) mg/dL Creatinine 2.20 H (0.52-1.04) mg/dL Glucose 107 H (74-99) mg/dL POC Glucose (mg/dL) (75-99) mg/dL Hemoglobin A1c (4.0-6.0) % Albumin 3.2 L (3.5-5.0) g/dL Urine Appearance (Clear) Urine Protein (Negative) Ur Leukocyte Esterase (Negative) Urine WBC (0-5) /hpf Urine WBC Clumps (None) /hpf Ur Squamous Epith Cells (0-4) /hpf Urine Bacteria (None) /hpf Urine Mucus (None) /hpf 09/29/17 09/29/17 09/29/17 Range/Units 14:12 17:36 19:10 RBC (3.80-5.40) m/uL Hgb (11.4-16.0) gm/dL Hct (34.0-46.0) % MCHC (31.0-37.0) g/dL Plt Count (150-450) k/uL Neutrophils # (1.3-7.7) k/uL D-Dimer (<0.60) mg/L FEU Potassium (3.5-5.1) mmol/L Carbon Dioxide (22-30) mmol/L BUN (7-17) mg/dL Creatinine (0.52-1.04) mg/dL Glucose (74-99) mg/dL POC Glucose (mg/dL) 124 H (75-99) mg/dL Hemoglobin A1c 6.6 H (4.0-6.0) % Albumin (3.5-5.0) g/dL Urine Appearance Cloudy H (Clear) Urine Protein 2+ H (Negative) Ur Leukocyte Esterase Moderate H (Negative) Urine WBC 27 H (0-5) /hpf Urine WBC Clumps Moderate H (None) /hpf Ur Squamous Epith Cells 5 H (0-4) /hpf Urine Bacteria Many H (None) /hpf Urine Mucus Rare H (None) /hpf 09/29/17 09/30/17 Range/Units 20:43 06:07 RBC (3.80-5.40) m/uL Hgb (11.4-16.0) gm/dL Hct (34.0-46.0) % MCHC (31.0-37.0) g/dL Plt Count (150-450) k/uL Neutrophils # (1.3-7.7) k/uL D-Dimer (<0.60) mg/L FEU Potassium (3.5-5.1) mmol/L Carbon Dioxide (22-30) mmol/L BUN (7-17) mg/dL Creatinine (0.52-1.04) mg/dL Glucose (74-99) mg/dL POC Glucose (mg/dL) 116 H 106 H (75-99) mg/dL Hemoglobin A1c (4.0-6.0) % Albumin (3.5-5.0) g/dL Urine Appearance (Clear) Urine Protein (Negative) Ur Leukocyte Esterase (Negative) Urine WBC (0-5) /hpf Urine WBC Clumps (None) /hpf Ur Squamous Epith Cells (0-4) /hpf Urine Bacteria (None) /hpf Urine Mucus (None) /hpf Microbiology - Last 24 Hours (Table) 09/29/17 14:12 Urine Culture - Preliminary Urine,Voided Assessment and Plan (1) Bradycardia Current Visit: Yes Status: Acute Code(s): R00.1 - BRADYCARDIA, UNSPECIFIED SNOMED Code(s): 36296911 (2) Altered mental status Current Visit: No Status: Acute Code(s): R41.82 - ALTERED MENTAL STATUS, UNSPECIFIED SNOMED Code(s): 716173488 (3) CHF (congestive heart failure) Current Visit: No Status: Acute Code(s): I50.9 - HEART FAILURE, UNSPECIFIED SNOMED Code(s): 38080977 (4) High risk for readmission Current Visit: No Status: Acute Code(s): Z91.89 - OTH PERSONAL RISK FACTORS , NOT ELSEWHERE CLASSIFIED SNOMED Code(s): 356547777 (5) Hospital-acquired pneumonia Current Visit: No Status: Acute Code(s): J18.9 - PNEUMONIA, UNSPECIFIED ORGANISM SNOMED Code(s): 085718650 Plan: We will go ahead and continue current antibiotic treatment. Check sputum culture and sensitivity. Check urinalysis with culture and sensitivity. New. Check CBC and CP in a.m. I am concerned about her ability to be independent at home for the time being. Discharge planning for possible ECF should be entertained. See orders otherwise. Gnosis is guarded secondary to her multiple comorbidities. Time with Patient: Greater than 30
[2017-09-30] MEDS: CLOPIDOGREL 75 MG TAB PO SCH (08:28)
[2017-09-30] MEDS: MONTELUKAST 10 MG TAB PO SCH (08:28)
[2017-09-30] MEDS: METOPROLOL TARTRATE 50 MG TAB PO SCH ×2 (08:28→20:23)
[2017-09-30] MEDS: LINAGLIPTIN 5 MG TABLET PO SCH (08:28)
[2017-09-30] MEDS: AMIODARONE 200 MG TAB PO SCH (08:30)
--- NOTE | 2017-09-30 08:36 | P.CRDCN ---
History of Present Illness Consult date: 09/30/17 Requesting physician: Georgi Thayer Consult reason: chest pain Chief complaint: Chest Pain and shortness of breath History of present illness: This is a pleasant 87-year-old female who follows regularly with Dr. Juan Diego Nunez in the office. She has a known history of coronary artery disease with prior RCA stenting as well as LAD stenting, her LAD was most recently stented in June 2017. She was recently in the hospital one week ago which time she underwent a cardiac catheterization by Dr. 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 Mild disease in the circumflex. Medical therapy was advised. Patient also has a history of paroxysmal trial fibrillation, on anticoagulation in the form of Xarelto, hypertension, diabetes, hyperlipidemia, COPD, GERD, and prior CVA. She presents back to the hospital with symptoms of left sided chest discomfort with associated shortness of breath. She also states that she's been having a cough at home, nonproductive. He denies any fever, states that she has chills frequently. EKG on admission here shows normal sinus rhythm with frequent PVCs. Nonspecific ST-T wave changes. Chest x-ray reveals a new right middle lobe opacity which may represent pneumonia or atelectasis. Blood pressure 122/ 60, heart rate in the 60s to 70s. White blood cell count is normal, hemoglobin 7.8, d-dimer 1.7, potassium 5.4, BUN 40, creatinine 2.2. Troponin 0.012, 0.014. BNP level 4420. Her renal function was noted to have a creatinine of 1.5 on September 25. Echocardiogram with Doppler study performed in August revealed an ejection fraction of 60-65%. Patient is also known to have moderate mitral regurgitation. At the time of my examination this morning, patient is sitting up at bedside, states she feels weak and tired, denies chest pain, her breathing is stable. Past Medical History Past Medical History: Coronary Artery Disease (CAD), Chest Pain / Angina, COPD, CVA/TIA, Diabetes Mellitus, GERD/Reflux, Hearing Disorder / Deafness, Hyperlipidemia, Hypertension, Myocardial Infarction ([place]), Osteoarthritis (OA), Pneumonia Additional Past Medical History / Comment(s): anemia, eczema, constipation, TIA X 3, esophageal dilation due to issues swallowing Last Myocardial Infarction Date:: 1998, 09/21/17 History of Any Multi-Drug Resistant Organisms: None Reported Past Surgical History: Cholecystectomy, Heart Catheterization With Stent Additional Past Surgical History / Comment(s): cataracts w/ lens implants, 2 ovary removed, heart caths :04/30/96 stent to rca, 03/18/2000 stent to mid rca, stent to lad Past Anesthesia/Blood Transfusion Reactions: Previous Problems w/ Anesthesia Additional Past Anesthesia/Blood Transfusion Reaction / Comment(s): difficulty breathing after anesthesia Date of Last Stent Placement:: 06/2017 Smoking Status: Former smoker - Past Family History Father History Unknown: Yes Family Medical History: Myocardial Infarction ([place]) Mother History Unknown: Yes Family Medical History: Myocardial Infarction ([place]) Additional Family Medical History / Comment(s): Mother of a [place] at about age 80yrs. Medications and Allergies Home Medications Medication Instructions Recorded Confirmed Type HYDROcodone/APAP 5-325MG [Nickerson 1 tab PO TID PRN 02/02/14 09/29/17 History 5-325] Omeprazole [PriLOSEC] 20 mg PO AC-BRKFST 02/02/14 09/29/17 History amLODIPine BESYLATE [Norvasc] 5 mg PO HS 02/02/14 09/29/17 History metFORMIN HCL [Glucophage] 500 mg PO AC-BID 02/02/14 09/29/17 History Insulin Detemir [Levemir Flextouch] 8 units SQ DAILY@1430 05/31/15 09/29/17 History Ipratropium-Albuterol Nebulize 3 ml INHALATION RT-QID PRN 08/20/16 09/29/17 History [Duoneb 0.5 mg-3 mg/3 ml Soln] Oxazepam [Serax] 15 mg PO BID 08/20/16 09/29/17 History Linagliptin [Tradjenta] 5 mg PO DAILY 05/17/17 09/29/17 History Montelukast [Singulair] 10 mg PO DAILY 05/17/17 09/29/17 History Fluticasone/Salmeterol [Advair 1 puff INHALATION RT-BID 05/18/17 09/29/17 History 250-50 Diskus] Metoprolol Tartrate [Lopressor] 100 mg PO BID 07/18/17 09/29/17 History Sennosides [Senna] 12.9 mg PO HS 07/18/17 09/29/17 History Atorvastatin [Lipitor] 40 mg PO HS #30 tab 07/23/17 09/29/17 Rx Clopidogrel [Plavix] 75 mg PO DAILY #30 tab 07/23/17 09/29/17 Rx Nitroglycerin Sl Tabs [Nitrostat] 0.4 mg SUBLINGUAL Q5M PRN #25 tab 07/23/1705/09 Rx Isosorbide Mononitrate ER [Imdur] 30 mg PO DAILY #30 tab.er.24h 09/23/17 Rx Rivaroxaban [Xarelto] 15 mg PO W/SUPPER #30 tab 09/24/17 09/29/17 Rx Amiodarone [Cordarone] 200 mg PO TID #90 tab 09/26/17 09/29/17 Rx Levofloxacin [Levaquin] 500 mg PO DAILY #5 tab 09/26/17 09/29/17 Rx Allergies Allergy/AdvReac Type Severity Reaction Status Date / Time amoxicillin trihydrate Allergy Unknown Verified 09/29/17 13:40 [From Augmentin] clindamycin HCl Allergy Unknown Verified 09/29/17 13:40 [From Cleocin] clindamycin palmitate HCl Allergy Unknown Verified 09/29/17 13:40 [From Cleocin] clindamycin phosphate Allergy Unknown Verified 09/29/17 13:40 [From Cleocin] codeine Allergy Unknown Verified 09/29/17 13:40 nitrofurantoin Allergy Unknown Verified 09/29/17 13:40 [From Macrobid] nitrofurantoin Allergy Unknown Verified 09/29/17 13:40 macrocrystalline [From Macrobid] Penicillins Allergy Unknown Verified 09/29/17 13:40 potassium clavulanate Allergy Unknown Verified 09/29/17 13:40 [From Augmentin] prednisone Allergy Unknown Verified 09/29/17 13:40 quinine Allergy Unknown Verified 09/29/17 13:40 Sulfa (Sulfonamide Allergy Unknown Verified 09/29/17 13:40 Antibiotics) sulfamethoxazole Allergy Unknown Verified 09/29/17 13:40 [From Bactrim] trimethoprim [From Bactrim] Allergy Unknown Verified 09/29/17 13:40 Physical Exam Vitals: Vital Signs Temp Pulse Pulse Resp BP BP Pulse Ox 09/30/17 04:00 97 F L 70 16 122/66 100 09/30/17 00:00 96.2 F L 75 14 118/66 100 09/29/17 20:00 96.0 F L 52 L 12 136/70 100 09/29/17 17:37 96.7 F L 61 20 112/52 100 09/29/17 17:08 51 L 18 175/72 100 09/29/17 16:36 48 L 18 155/70 99 09/29/17 15:32 55 L 18 152/70 100 09/29/17 13:59 54 L 18 150/62 99 09/29/17 13:08 98.2 F 58 L 16 147/96 98 Intake and Output 09/29/17 09/30/17 09/30/17 22:59 06:59 14:59 Intake Total 100 Balance 100 Intake: Intake, IV Titration 100 Amount Levofloxacin 500Mg-D5w 100 Pmx 500 mg In Dextrose/ Water 1 100ml.bag @ 100 mls/hr IVPB ONCE STA Rx#: [id number] Other: # Voids 1 Weight 62.2 kg PHYSICAL EXAMINATION: HEENT: Head is atraumatic, normocephalic. Pupils equal, round. Neck is supple. There is no elevated jugular venous pressure. HEART EXAMINATION: Heart S1 S2 1 systolic murmur is heard. CHEST EXAMINATION: Lungs reveal fine crackles to bilateral bases. ABDOMEN: Soft, nontender. Bowel sounds are heard. No organomegaly noted. EXTREMITIES: 2+ peripheral pulses with no evidence of peripheral edema and no calf tenderness noted. NEUROLOGIC patient is awake, alert and oriented -3. . Results 09/29/17 13:42 09/29/17 13:42 Cardiac Enzymes 09/29/17 09/29/17 09/29/17 Range/Units 13:42 13:42 19:10 AST 30 (14-36) U/L CK-MB (CK-2) 1.7 1.8 (0.0-2.4) ng/mL Troponin I 0.012 <0.012 (0.000-0.034) ng/mL 09/30/17 Range/Units 01:06 AST (14-36) U/L CK-MB (CK-2) 1.9 (0.0-2.4) ng/mL Troponin I 0.014 (0.000-0.034) ng/mL Coagulation 09/29/17 Range/Units 13:42 PT 10.9 (9.0-12.0) sec APTT 28.2 (22.0-30.0) sec CBC 09/29/17 Range/Units 13:42 WBC 10.6 (3.8-10.6) k/uL RBC 3.08 L (3.80-5.40) m/uL Hgb 7.8 L (11.4-16.0) gm/dL Hct 25.7 L (34.0-46.0) % Plt Count 499 H (150-450) k/uL Comprehensive Metabolic Panel 09/29/17 Range/Units 13:42 Sodium 138 (137-145) mmol/L Potassium 5.4 H (3.5-5.1) mmol/L Chloride 105 (98-107) mmol/L Carbon Dioxide 21 L (22-30) mmol/L BUN 40 H (7-17) mg/dL Creatinine 2.20 H (0.52-1.04) mg/dL Glucose 107 H (74-99) mg/dL Calcium 8.9 (8.4-10.2) mg/dL AST 30 (14-36) U/L ALT 29 (9-52) U/L Alkaline Phosphatase 69 (38-126) U/L Total Protein 6.5 (6.3-8.2) g/dL Albumin 3.2 L (3.5-5.0) g/dL Current Medications Generic Name Dose Route Start Last Admin Trade Name Freq PRN Reason Stop Dose Admin Hydrocodone Bitart/Acetaminophen 1 each 09/29/17 15:24 Nickerson 5-325 PO TID PRN Pain Albuterol/Ipratropium 3 ml 09/29/17 15:24 Duoneb 0.5 Mg-3 Mg/3 Ml Soln INHALATION RT-QID PRN Shortness Of Breath Amiodarone HCl 200 mg 09/29/17 16:00 09/29/17 21:58 Cordarone PO 10/01/17 23:00 200 mg TID [facility] Administration Amiodarone HCl 200 mg 10/02/17 09:00 Cordarone PO BID [facility] Amlodipine Besylate 5 mg 09/29/17 21:00 09/29/17 21:59 Norvasc PO 5 mg HS [facility] Administration Aspirin 325 mg 09/30/17 09:00 Aspirin PO DAILY [facility] Atorvastatin Calcium 40 mg 09/29/17 21:00 09/29/17 21:59 Lipitor PO 40 mg HS [facility] Administration Budesonide/Formoterol Fumarate 2 puff 09/29/17 20:00 09/29/17 21:05 Symbicort 80-4.5 Mcg Inhaler INHALATION 2 puff RT-BID [facility] Administration Clopidogrel Bisulfate 75 mg 09/30/17 09:00 Plavix PO DAILY [facility] Cefepime HCl 1 gm/ Sodium 50 mls @ 100 mls/hr 09/30/17 16:00 Chloride IVPB Q24H [facility] Levofloxacin/Dextrose 250 mg/ 50 mls @ 50 mls/hr 09/30/17 17:00 IV Solution IVPB Q48H [facility] Vancomycin HCl 1,000 mg/ 250 mls @ 125 mls/hr 09/30/17 11:00 09/29/17 18:35 Sodium Chloride IVPB 09/30/17 12:59 125 mls/hr ONCE ONE Administration Insulin Aspart 0 unit 09/29/17 21:00 09/30/17 06:25 Novolog SQ Not Given ACHS [facility] Protocol Insulin Detemir 8 unit 09/29/17 18:15 09/29/17 18:46 Levemir SQ 8 unit DAILY@1430 [facility] Administration Linagliptin 5 mg 09/30/17 09:00 Tradjenta PO DAILY [facility] Metformin HCl 500 mg 09/29/17 17:30 Glucophage PO AC-BID [facility] Metoprolol Tartrate 100 mg 09/29/17 21:00 09/29/17 21:59 Lopressor PO Not Given BID [facility] Miscellaneous Information 1 each 09/29/17 15:16 Pharmacy To Dose Iv Vancomycin MISCELLANE DIRECTED PRN Per Protocol Montelukast Sodium 10 mg 09/30/17 09:00 Singulair PO DAILY [facility] Nitroglycerin 1 inch 09/29/17 18:00 09/30/17 06:01 Nitro-Bid Oint TOPICAL Not Given Q6HR [facility] Nitroglycerin 0.4 mg 09/29/17 15:21 Nitrostat SUBLINGUAL Q5M PRN Chest Pain Oxazepam [Serax] 15 1 each 09/29/17 21:00 09/29/17 20:54 Mg PO 1 each BID [facility] Administration Pantoprazole Sodium 40 mg 09/30/17 07:30 09/30/17 06:34 Protonix PO 40 mg AC-BRKFST [facility] Administration Rivaroxaban 15 mg 09/29/17 17:30 09/29/17 18:35 Xarelto PO 15 mg W/SUPPER [facility] Administration Senna 12.9 mg 09/29/17 21:00 09/29/17 21:59 Senokot PO 12.9 mg HS [facility] Administration Intake and Output 09/29/17 09/30/17 09/30/17 22:59 06:59 14:59 Intake Total 100 Balance 100 Intake: Intake, IV Titration 100 Amount Levofloxacin 500Mg-D5w 100 Pmx 500 mg In Dextrose/ Water 1 100ml.bag @ 100 mls/hr IVPB ONCE STA Rx#: [id number] Other: # Voids 1 Weight 62.2 kg 09/29/17 13:42 09/29/17 13:42 EKG Interpretations (text) EKG shows a normal sinus rhythm with frequent PVCs Assessment and Plan Plan: Assessment and plan #1 chest pain, not suggestive of acute coronary syndrome. Troponin 0.012, 0.014. EKG shows normal sinus rhythm with frequent PVCs. No acute changes noted. Patient just underwent a cardiac catheterization earlier this month which revealed a patent stent in the LAD, RCA had mild in-stent restenosis, unchanged from her cath in June 2017. Medical therapy was advised. #2 symptoms of progressive shortness of breath, chest x-ray suggests possible new infiltrate. Patient is currently on antibiotics. D-dimer 1.74. #3 known history of coronary artery disease with prior RCA and LAD stent, most recent stent was performed in June of last year to the LAD. #4 hypertension #5 COPD #6 hyperlipidemia #7 diabetes #8 acute on chronic renal insufficiency, creatinine was 1.4 on discharge, 2.2 this morning. #9 anemia 10 moderate mitral regurg Plan Patient had a recent echo performed in August of last year which revealed an ejection fraction of 55-60%, we will not repeat an echo on this admission. We will hydrate the patient at 75 mL per hour. We'll discontinue the aspirin, continue Xarelto 15 mg along with the Plavix. We'll also decrease her amiodarone to 200 mg twice a day. Further recommendations to follow. DNP note has been reviewed, I agree with a documented findings and plan of care. Patient was seen and examined.
[2017-09-30] MEDS ORDERED: ASPIRIN 325 MG TAB PO SCH (09:00)
[2017-09-30] MEDS ORDERED: AMIODARONE 200 MG TAB PO SCH (09:00)
[2017-09-30] MEDS ORDERED: LEVOFLOXACIN 500MG-D5W PMX 500 MG in DEXTROSE/WATER 1 100ML.BAG IVPB SCH (09:00)
[2017-09-30] MEDS: IPRATROPIUM-ALBUTEROL 3 ML NEB INHALATION PRN ×3 (09:04→15:48)
[2017-09-30] MEDS: SYMBICORT 80-4.5 MCG INHALER INHALATION SCH ×2 (09:04→19:50)
--- NOTE | 2017-09-30 09:17 | P.PN ---
Progress Note - Text This is an addendum to the dictated cardiology consultation. The patient was recently discharged from the hospital after underwent cardiac catheterization and was found to no evidence of significant progression of disease. She presents with symptoms of cough, fatigue and dizziness. She has vague chest discomfort area on the monitor she is in sinus mechanism and there is no evidence of CHF on her physical examination. Her lab data showed worsening renal function and she is in sinus bradycardia. I will decrease the dose of her beta daryl, follow her renal function. The patient is receiving antibiotics for possible pneumonia. Depending on her progress further recommendations will be made. Thank you for this consult we will follow with you.
--- NOTE | 2017-09-30 10:14 | HP ---
HISTORY AND PHYSICAL DATE OF SERVICE: 09/29/2017 I am covering for Dr. Thayer. CHIEF COMPLAINT: Chest pain. HISTORY OF PRESENT ILLNESS: This 87-year-old woman with a past medical history of multiple medical problems including CAD, history of COPD, CVA, TIA, diabetes mellitus, GERD, hard of hearing. History of polycystic disease, CAD with stenting, followed by Dr. Thayer in the outpatient setting, was complaining of feeling dizzy and some left-sided chest pain. The left-sided chest is rather sore and patient had some insomnia. Because of multiple complaints, patient came to [facility] and admitted for further evaluation and treatment. The patient was found to be unsteady and some difficulty in ambulation, also. There is no history of fever, rigors. No history of headache, loss of consciousness or seizures. The patient was recently admitted to the hospital and had a cardiac catheterization that showed [id number] 2+ coronary artery disease without any significant progression. Medical management recommended. PAST MEDICAL HISTORY: CAD, COPD, CVA, TIA, diabetes, GERD, history of CAD stent. MEDICATIONS: Prior to admission include, home medications are reviewed include: 1. Glucophage 500 mg p.o. a.c. b.i.d. 2. Norvasc 5 mg q.h.s. 3. Senna 12.9 mg p.o. q.h.s. 4. Xarelto 15 mg with supper. 5. Serax 15 mg p.o. b.i.d. 6. Prilosec 20 mg with breakfast. 7. Nitrostat 0.4 sublingual q.5 minutes p.r.n. 8. Singulair 10 mg p.o. daily. 9. Lopressor 100 mg p.o. b.i.d. 10.Tradjenta 5 mg p.o. daily. 11.Levaquin 500 mg p.o. daily. 12.Imdur 30 mg p.o. daily. 13.DuoNeb q.i.d. and p.r.n. 14.Levemir 80 units subcu daily. 15.[place] 1 tablet t.i.d. p.r.n. 16.Advair 250-50 one puff b.i.d. 17.Plavix 75 mg p.o. daily. 18.Lipitor 40 mg q.h.s. 19.Cordarone 200 mg p.o. t.i.d. ALLERGIES: AMOXICILLIN, CLINDAMYCIN, CLEOCIN, CODEINE, NITROFURANTOIN, PENICILLIN, AUGMENTIN, PREDNISONE, QUININE, SULFA, BACTRIM. FAMILY HISTORY: History of myocardial infarction in the family. SOCIAL HISTORY: History of smoking. No history of alcohol intake. REVIEW OF SYSTEMS: ENT: No diminished hearing. CARDIOVASCULAR SYSTEM: As mentioned earlier. GI: As mentioned earlier. : No dysuria. NERVOUS SYSTEM: As mentioned earlier. ALLERGY/IMMUNOLOGY: As mentioned earlier. HEMATOLOGY/ONCOLOGY: No history of anemia. ENDOCRINE: As mentioned earlier. CONSTITUTIONAL: As mentioned earlier. PSYCHIATRY: As mentioned earlier. PHYSICAL EXAMINATION: Alert and oriented x3. Pulse is 52, blood pressure is 112/52, respiration 16, temperature is 98.7, pulse ox 100% on 2 L. HEENT: Conjunctivae normal. NECK: No jugular venous distension. CARDIOVASCULAR SYSTEM: S1, S2. RESPIRATORY: Breath sounds diminished at the bases, no rhonchi, no crackles. ABDOMEN: Soft, nontender. No mass palpable. LEGS: No edema, no swelling. NERVOUS SYSTEM: Higher functions as mentioned, moves all 4 limbs, mild diffuse weakness. LYMPHATICS: No lymph node enlargement in the neck, axillae or groin. SKIN: No ulcer, rash or bleeding. LABS: WBC 10.6, hemoglobin is 7.8. Potassium is 5.4, creatinine is 2.20. UA shows cloudy. ASSESSMENT: 1. Left-sided chest pain for evaluation of, possibly muscular for coronary artery disease. 2. Multiple symptoms of dizziness and weakness, rule out transient ischemic attack. 3. New right middle lobe opacity, rule out possible atelectasis. 4. Acute renal failure, possibly prerenal. 5. Mild hyperkalemia. 6. Anemia of chronic disease. 7. Possible urinary tract infection. 8. History of coronary artery disease. 9. History of chronic obstructive pulmonary disease. 10.History of cerebrovascular accident, transient ischemic attack. 11.Diabetes mellitus type 2. 12.Gastroesophageal reflux disease. 13.Hard of hearing. 14.History of cholecystectomy. 15.Coronary artery disease with stent. 16.History of depression. RECOMMENDATION: In this 87-year-old woman who presented with multiple complex medical issues, will monitor the patient closely. I would recommend resume the home medications and antibiotics for UTI. Otherwise, we recommend Cardiology consultation. continue as well. Will continue to monitor and Dr. Thayer will follow. As mentioned earlier, the patient had recent UTI with E coli and which was sensitive to Levaquin at this time. The previous creatinine was around 1.56 and worsening of 2.2. The most recent chest x- ray was reviewed which showed a new right middle lobe opacity, rule out possible atelectasis. Also would continue to follow. In any case, patient had multiple complex medical issues. Overall, prognosis guarded. Further recommendations to follow. MMODL / IJN: [id number] /
[2017-09-30 10:21] LABS: Calcium 9.5 mg/dL (8.4-10.2); Potassium 4.5 mmol/L (3.5-5.1)
[2017-09-30] MEDS: SODIUM CHLORIDE 0.9% 1,000 ML IV SCH ×2 (10:24→20:25)
[2017-09-30] MEDS ORDERED: VANCOMYCIN 1,000 MG in SODIUM CHLORIDE 0.9% 250 ML IVPB ONE (11:00)
[2017-09-30] MEDS ORDERED: IPRATROPIUM-ALBUTEROL 3 ML NEB INHALATION PRN (12:12)
[2017-09-30 12:35] LABS: Glucose,Whole Blood 162 mg/dL (75-99)
[2017-09-30 13:30] VITALS: BMI 27.6
[2017-09-30] MEDS ORDERED: INSULIN DETEMIR 100 UNIT/ML 10 ML VIAL SQ SCH (14:30)
[2017-09-30] MEDS: INSULIN DETEMIR 100 UNIT/ML 10 ML VIAL SQ SCH (15:51)
[2017-09-30] MEDS: CEFEPIME 1 GM in SODIUM CHLORIDE 0.9% 50 ML IVPB SCH (15:54)
[2017-09-30] MEDS ORDERED: LEVOFLOXACIN 250MG-D5W PMX 250 MG in DEXTROSE/WATER 1 50ML.BAG IVPB SCH (17:00)
[2017-09-30] MEDS: RIVAROXABAN 15 MG TAB PO SCH (17:11)
[2017-09-30 17:17] LABS: Glucose,Whole Blood 123 mg/dL (75-99)
[2017-09-30] MEDS: SENNOSIDES 8.6 MG TAB PO SCH (20:24)
[2017-09-30] MEDS: ATORVASTATIN 40 MG TAB PO SCH (20:24)
[2017-09-30] MEDS: amLODIPine 5 MG TAB PO SCH (20:25)
[2017-09-30] MEDS: HYDROcodone/APAP 5-325MG 1 EACH TAB PO PRN (20:29)
[2017-09-30 21:17] LABS: Glucose,Whole Blood 134 mg/dL (75-99)
[2017-09-30] MEDS: OXAZEPAM 15 MG PO SCH (21:24)
[2017-10-01] MEDS: SODIUM CHLORIDE 0.9% 1,000 ML IV SCH ×2 (01:52→16:44)
[2017-10-01] MEDS: NITROGLYCERIN SL TABS 0.4 MG TAB SUBLINGUAL PRN ×2 (05:06→05:14)
[2017-10-01] MEDS: INSULIN ASPART 100 UNIT/ML 1 ML 10 ML VIAL SQ SCH ×4 (06:07→20:52)
[2017-10-01 06:17] LABS: Glucose,Whole Blood 110 mg/dL (75-99)
[2017-10-01 06:25] LABS: HCT 24.7 % (34.0-46.0); HGB 7.4 gm/dL (11.4-16.0); Hypochromasia Marked; MCH 25.1 pg (25.0-35.0); MCHC 29.9 g/dL (31.0-37.0); Mean Platelet Volume 7.8; Platelet Count 458 k/uL (150-450); RBC 2.95 m/uL (3.80-5.40); RDW 14.9 % (11.5-15.5); WBC 9.2 k/uL (3.8-10.6)
[2017-10-01 06:28] LABS: Albumin 2.9 g/dL (3.5-5.0); Calcium 9.1 mg/dL (8.4-10.2); Potassium 4.8 mmol/L (3.5-5.1); Total Bilirubin 0.3 mg/dL (0.2-1.3); Total Protein 5.9 g/dL (6.3-8.2)
[2017-10-01] MEDS: PANTOPRAZOLE 40 MG TABLET PO SCH (06:31)
--- NOTE | 2017-10-01 07:54 | P.PN ---
Subjective Progress Note Date: 10/01/17 Principal diagnosis: Continuing care/right middle lobe pneumonia. This is a continue present 87-year-old white female with known history of coronary artery disease a complaint of chest pain. She has had episode of chest pain yesterday. Cardiology is not consulted. She is had an underlying history of atrial fibrillation and is on appropriate anticoagulation at this time. I am concerned about her significant memory decline. I do suspect his senility related to the fact that her recent computed tomography scan is unremarkable. She does have fairly good memory of our encounter yesterday however. At night, she was disoriented again. Question element of . Objective - Vital Signs Vital signs: Vital Signs Temp 97.0 F L 10/01/17 04:00 Pulse 75 10/01/17 04:00 Resp 20 10/01/17 04:00 BP 148/67 10/01/17 04:00 Pulse Ox 99 10/01/17 04:00 Intake & Output 09/30/17 10/01/17 10/01/17 18:59 06:59 18:59 Intake Total 850 1600 360 Balance 850 1600 360 Weight 62.2 kg 63.2 kg Intake: IV 1600 0.9 1600 Intake, IV Titration 850 Amount Sodium Chloride 0.9% 1, 600 000 ml @ 100 mls/hr IV . Q10H [facility] Rx#:[id number] Vancomycin 1,000 mg In 250 Sodium Chloride 0.9% 250 ml @ 125 mls/hr IVPB ONCE ONE Rx#:[id number] Oral 360 Other: Voiding Method Toilet - Constitutional General appearance: Present: obese - EENT Eyes: Absent: abnormal pupil - Neck Neck: Absent: lymphadenopathy - Respiratory Respiratory: bilateral: CTA - Cardiovascular Rhythm: regular Heart sounds: normal: S1, S2 - Gastrointestinal General gastrointestinal: Present: soft. Absent: tenderness - Musculoskeletal Musculoskeletal: Present: gait normal - Psychiatric Psychiatric: Present: appropriate affect - Labs CBC & Chem 7: 10/01/17 05:26 10/01/17 05:26 Labs: Abnormal Lab Results - Last 24 Hours (Table) 09/30/17 09/30/17 09/30/17 Range/Units 09:04 12:18 17:09 RBC (3.80-5.40) m/uL Hgb (11.4-16.0) gm/dL Hct (34.0-46.0) % MCHC (31.0-37.0) g/dL Plt Count (150-450) k/uL Chloride 109 H (98-107) mmol/L Carbon Dioxide 18 L (22-30) mmol/L BUN 34 H (7-17) mg/dL Creatinine 1.88 H (0.52-1.04) mg/dL Glucose 190 H (74-99) mg/dL POC Glucose (mg/dL) 162 H 123 H (75-99) mg/dL Total Protein (6.3-8.2) g/dL Albumin (3.5-5.0) g/dL 09/30/17 10/01/17 10/01/17 Range/Units 21:15 05:26 05:26 RBC 2.95 L (3.80-5.40) m/uL Hgb 7.4 L (11.4-16.0) gm/dL Hct 24.7 L (34.0-46.0) % MCHC 29.9 L (31.0-37.0) g/dL Plt Count 458 H (150-450) k/uL Chloride 111 H (98-107) mmol/L Carbon Dioxide 20 L (22-30) mmol/L BUN 29 H (7-17) mg/dL Creatinine 1.60 H (0.52-1.04) mg/dL Glucose 102 H (74-99) mg/dL POC Glucose (mg/dL) 134 H (75-99) mg/dL Total Protein 5.9 L (6.3-8.2) g/dL Albumin 2.9 L (3.5-5.0) g/dL 10/01/17 Range/Units 06:06 RBC (3.80-5.40) m/uL Hgb (11.4-16.0) gm/dL Hct (34.0-46.0) % MCHC (31.0-37.0) g/dL Plt Count (150-450) k/uL Chloride (98-107) mmol/L Carbon Dioxide (22-30) mmol/L BUN (7-17) mg/dL Creatinine (0.52-1.04) mg/dL Glucose (74-99) mg/dL POC Glucose (mg/dL) 110 H (75-99) mg/dL Total Protein (6.3-8.2) g/dL Albumin (3.5-5.0) g/dL Microbiology - Last 24 Hours (Table) 09/29/17 14:12 Urine Culture - Final Urine,Voided Assessment and Plan (1) Bradycardia Current Visit: Yes Status: Acute Code(s): R00.1 - BRADYCARDIA, UNSPECIFIED SNOMED Code(s): 13090931 (2) Altered mental status Current Visit: No Status: Acute Code(s): R41.82 - ALTERED MENTAL STATUS, UNSPECIFIED SNOMED Code(s): 127654556 (3) CHF (congestive heart failure) Current Visit: No Status: Acute Code(s): I50.9 - HEART FAILURE, UNSPECIFIED SNOMED Code(s): 50816776 (4) High risk for readmission Current Visit: No Status: Acute Code(s): Z91.89 - OTH PERSONAL RISK FACTORS , NOT ELSEWHERE CLASSIFIED SNOMED Code(s): 953668484 (5) Hospital-acquired pneumonia Current Visit: No Status: Acute Code(s): J18.9 - PNEUMONIA, UNSPECIFIED ORGANISM SNOMED Code(s): 571290504 Plan: I will go ahead and DC vancomycin. Continue cefepime for today. The patient does not show any elevation of temperature or white blood cell count. Reconcile medications. Discharge planning element. Question need for home health versus ECF. Anticipate discharge in a.m. if cleared by cardiology. Time with Patient: Less than 30
[2017-10-01] MEDS: AMIODARONE 200 MG TAB PO SCH (08:32)
[2017-10-01] MEDS: LINAGLIPTIN 5 MG TABLET PO SCH (08:32)
[2017-10-01] MEDS: CLOPIDOGREL 75 MG TAB PO SCH (08:32)
[2017-10-01] MEDS: MONTELUKAST 10 MG TAB PO SCH (08:33)
[2017-10-01] MEDS: METOPROLOL TARTRATE 50 MG TAB PO SCH ×2 (08:33→19:58)
[2017-10-01] MEDS: ISOSORBIDE MONONITRATE ER 30 MG TAB.ER.24H PO SCH (08:40)
[2017-10-01] MEDS: metFORMIN 500 MG TAB PO SCH ×2 (08:40→16:35)
[2017-10-01] MEDS: SYMBICORT 80-4.5 MCG INHALER INHALATION SCH ×2 (09:54→19:25)
[2017-10-01 11:40] LABS: Glucose,Whole Blood 144 mg/dL (75-99)
[2017-10-01] MEDS: IPRATROPIUM-ALBUTEROL 3 ML NEB INHALATION PRN ×3 (11:46→19:24)
[2017-10-01] MEDS ORDERED: ACETAMINOPHEN TAB 325 MG TAB PO PRN (12:08)
[2017-10-01] MEDS: INSULIN DETEMIR 100 UNIT/ML 10 ML VIAL SQ SCH (14:48)
[2017-10-01] MEDS: CEFEPIME 1 GM in SODIUM CHLORIDE 0.9% 50 ML IVPB SCH (14:53)
--- NOTE | 2017-10-01 14:57 | P.PN ---
Subjective Progress Note Date: 10/01/17 This is a pleasant 87-year-old female who follows regularly with Dr. Juan Diego Nunez in the office. She has a known history of coronary artery disease with prior RCA stenting as well as LAD stenting, her LAD was most recently stented in June 2017. She was recently in the hospital one week ago which time she underwent a cardiac catheterization by Dr. 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 Mild disease in the circumflex. Medical therapy was advised. Patient also has a history of paroxysmal trial fibrillation, on anticoagulation in the form of Xarelto, hypertension, diabetes, hyperlipidemia, COPD, GERD, and prior CVA. She presents back to the hospital with symptoms of left sided chest discomfort with associated shortness of breath. She also states that she's been having a cough at home, nonproductive. He denies any fever, states that she has chills frequently. EKG on admission here shows normal sinus rhythm with frequent PVCs. Nonspecific ST-T wave changes. Chest x-ray reveals a new right middle lobe opacity which may represent pneumonia or atelectasis. Blood pressure 122/ 60, heart rate in the 60s to 70s. White blood cell count is normal, hemoglobin 7.8, d-dimer 1.7, potassium 5.4, BUN 40, creatinine 2.2. Troponin 0.012, 0.014. BNP level 4420. Her renal function was noted to have a creatinine of 1.5 on September 25. Echocardiogram with Doppler study performed in August revealed an ejection fraction of 60-65%. Patient is also known to have moderate mitral regurgitation. At the time of my examination this morning, patient is sitting up at bedside, states she feels weak and tired, denies chest pain, her breathing is stable. 10/01/2017 Patient was seen and examined this morning, she's been up ambulating in the [facility] , doing much better overall today. Hemodynamically stable. BUN 29, creatinine 1.6, hemoglobin 7.4. Objective - Vital Signs Vital signs: Vital Signs Temp 96.0 F L 10/01/17 11:36 Pulse 68 10/01/17 11:54 Resp 16 10/01/17 11:36 BP 111/58 01/10/18 11:36 Pulse Ox 99 10/01/17 11:36 Intake & Output 09/30/17 10/01/17 10/01/17 18:59 06:59 18:59 Intake Total 850 1600 1920 Output Total 900 Balance 850 1600 1020 Weight 62.2 kg 63.2 kg Intake: IV 1600 0.9 1600 Intake, IV Titration 850 120 Amount Sodium Chloride 0.9% 1, 600 120 000 ml @ 100 mls/hr IV . Q10H [facility] Rx#:[id number] Vancomycin 1,000 mg In 250 Sodium Chloride 0.9% 250 ml @ 125 mls/hr IVPB ONCE ONE Rx#:[id number] Oral 1800 Output: Urine 900 Other: Voiding Method Toilet Toilet - Exam PHYSICAL EXAMINATION: HEENT: Head is atraumatic, normocephalic. Pupils equal, round. Neck is supple. There is no elevated jugular venous pressure. HEART EXAMINATION: Heart S1 S2 1 systolic murmur is heard. CHEST EXAMINATION: Lungs reveal fine crackles to bilateral bases. ABDOMEN: Soft, nontender. Bowel sounds are heard. No organomegaly noted. EXTREMITIES: 2+ peripheral pulses with no evidence of peripheral edema and no calf tenderness noted. NEUROLOGIC patient is awake, alert and oriented -3. - Labs CBC & Chem 7: 10/01/17 05:26 10/01/17 05:26 Labs: Abnormal Lab Results - Last 24 Hours (Table) 09/30/17 09/30/17 10/01/17 Range/Units 17:09 21:15 05:26 RBC 2.95 L (3.80-5.40) m/uL Hgb 7.4 L (11.4-16.0) gm/dL Hct 24.7 L (34.0-46.0) % MCHC 29.9 L (31.0-37.0) g/dL Plt Count 458 H (150-450) k/uL Chloride (98-107) mmol/L Carbon Dioxide (22-30) mmol/L BUN (7-17) mg/dL Creatinine (0.52-1.04) mg/dL Glucose (74-99) mg/dL POC Glucose (mg/dL) 123 H 134 H (75-99) mg/dL Total Protein (6.3-8.2) g/dL Albumin (3.5-5.0) g/dL 10/01/17 10/01/17 10/01/17 Range/Units 05:26 06:06 11:36 RBC (3.80-5.40) m/uL Hgb (11.4-16.0) gm/dL Hct (34.0-46.0) % MCHC (31.0-37.0) g/dL Plt Count (150-450) k/uL Chloride 111 H (98-107) mmol/L Carbon Dioxide 20 L (22-30) mmol/L BUN 29 H (7-17) mg/dL Creatinine 1.60 H (0.52-1.04) mg/dL Glucose 102 H (74-99) mg/dL POC Glucose (mg/dL) 110 H 144 H (75-99) mg/dL Total Protein 5.9 L (6.3-8.2) g/dL Albumin 2.9 L (3.5-5.0) g/dL Microbiology - Last 24 Hours (Table) 09/30/17 05:56 Blood Culture - Preliminary Blood No Growth after 24 hours 09/29/17 14:12 Urine Culture - Final Urine,Voided Assessment and Plan Plan: Assessment and plan #1 chest pain, not suggestive of acute coronary syndrome. Troponin 0.012, 0.014. EKG shows normal sinus rhythm with frequent PVCs. No acute changes noted. Patient just underwent a cardiac catheterization earlier this month which revealed a patent stent in the LAD, RCA had mild in-stent restenosis, unchanged from her cath in June 2017. Medical therapy was advised. #2 symptoms of progressive shortness of breath, chest x-ray suggests possible new infiltrate. Patient is currently on antibiotics. D-dimer 1.74. #3 known history of coronary artery disease with prior RCA and LAD stent, most recent stent was performed in June of last year to the LAD. #4 hypertension #5 COPD #6 hyperlipidemia #7 diabetes #8 acute on chronic renal insufficiency, creatinine was 1.4 on discharge, 2.2 this morning. #9 anemia 10 moderate mitral regurg Plan Patient had a recent echo performed in August of last year which revealed an ejection fraction of 55-60%, we will not repeat an echo on this admission. From cardiology's perspective, patient may be able to be discharged once cleared by the primary. We will make a follow-up appointment in the office post discharge. DNP note has been reviewed, I agree with a documented findings and plan of care. Patient was seen and examined.
[2017-10-01 16:22] LABS: Glucose,Whole Blood 167 mg/dL (75-99)
[2017-10-01] MEDS: RIVAROXABAN 15 MG TAB PO SCH (16:35)
[2017-10-01] MEDS: SENNOSIDES 8.6 MG TAB PO SCH (19:58)
[2017-10-01] MEDS: ATORVASTATIN 40 MG TAB PO SCH ×2 (19:58→19:59)
[2017-10-01] MEDS: amLODIPine 5 MG TAB PO SCH (19:58)
[2017-10-01 20:49] LABS: Glucose,Whole Blood 137 mg/dL (75-99)
[2017-10-01] MEDS: HYDROcodone/APAP 5-325MG 1 EACH TAB PO PRN (20:49)
[2017-10-01] MEDS: OXAZEPAM 15 MG PO SCH (20:52)
[2017-10-02 00:01] VITALS: RESP 18
[2017-10-02] MEDS: SODIUM CHLORIDE 0.9% 1,000 ML IV SCH ×2 (02:19→11:58)
[2017-10-02 05:52] LABS: Glucose,Whole Blood 105 mg/dL (75-99)
[2017-10-02] MEDS: INSULIN ASPART 100 UNIT/ML 1 ML 10 ML VIAL SQ SCH ×2 (05:53→12:30)
[2017-10-02] MEDS: metFORMIN 500 MG TAB PO SCH (06:37)
[2017-10-02] MEDS: PANTOPRAZOLE 40 MG TABLET PO SCH (06:37)
--- NOTE | 2017-10-02 07:57 | P.DS ---
Providers Date of admission: 09/29/17 15:21 Attending physician: Georgi Thayer Consults: 09/29/17 15:21 Consult Physician Urgent Consulting Provider: Tavia Scott Consult Reason/Comments: cp, amiodarone dosing Do you want consulting provider notified?: Yes Primary care physician: Georgi Thayer - Discharge Diagnosis(es) (1) Bradycardia Current Visit: Yes Status: Acute (2) Altered mental status Current Visit: No Status: Acute (3) CHF (congestive heart failure) Current Visit: No Status: Acute (4) High risk for readmission Current Visit: No Status: Acute (5) Hospital-acquired pneumonia Current Visit: No Status: Acute Hospital Course: This is a discharge summary 87-year-old white female essentially admitted because of possible atelectasis versus right lower middle lobe pneumonia. The patient has underlying history of atrial fibrillation and history of coronary artery disease with stent placement in the last 12 weeks. The patient has had multiple readmissions and has been having elements of sundowning and possible senility. Neurologic workup did not show anything new at her previous admission last week. She was readmitted secondary to chest pain. Cardiology was consulted and she was placed on appropriate antibiotic treatment. The patient is now stable and because of her weakness will be admitted to ECF for possible rehab element. The patient is discharged in stable but guarded condition secondary to multiple comorbidities and a follow-up with me once she is discharged from the ECF. Patient Condition at Discharge: Fair Plan - Discharge Summary Discharge Rx Participant: No New Discharge Prescriptions: New Acetaminophen Tab [Tylenol] 325 mg PO Q6HR PRN tab PRN Reason: Fever and/ or Mild Pain Nitroglycerin Sl Tabs [Nitrostat] 0.4 mg SUBLINGUAL Q5M PRN tab PRN Reason: Chest Pain Continue metFORMIN HCL [Glucophage] 500 mg PO AC-BID amLODIPine BESYLATE [Norvasc] 5 mg PO HS Omeprazole [PriLOSEC] 20 mg PO AC-BRKFST HYDROcodone/APAP 5-325MG [[place] 5-325] 1 tab PO TID PRN PRN Reason: Pain Insulin Detemir [Levemir Flextouch] 8 units SQ DAILY@1430 Ipratropium-Albuterol Nebulize [Duoneb 0.5 mg-3 mg/3 ml Soln] 3 ml INHALATION RT-QID PRN PRN Reason: Shortness Of Breath Linagliptin [Tradjenta] 5 mg PO DAILY Montelukast [Singulair] 10 mg PO DAILY Fluticasone/Salmeterol [Advair 250-50 Diskus] 1 puff INHALATION RT-BID Metoprolol Tartrate [Lopressor] 100 mg PO BID Sennosides [Senna] 12.9 mg PO HS Atorvastatin [Lipitor] 40 mg PO HS #30 tab Clopidogrel [Plavix] 75 mg PO DAILY #30 tab Nitroglycerin Sl Tabs [Nitrostat] 0.4 mg SUBLINGUAL Q5M PRN #25 tab PRN Reason: Chest Pain Isosorbide Mononitrate ER [Imdur] 30 mg PO DAILY #30 tab.er.24h Rivaroxaban [Xarelto] 15 mg PO W/SUPPER #30 tab Amiodarone [Cordarone] 200 mg PO TID #90 tab Levofloxacin [Levaquin] 500 mg PO DAILY #5 tab Oxazepam [Serax] 15 mg PO BID #60 capsule Discharge Medication List HYDROcodone/APAP 5-325MG [[place] 5-325] 1 tab PO TID PRN 02/02/14 [History] Omeprazole [PriLOSEC] 20 mg PO AC-BRKFST 02/02/14 [History] amLODIPine BESYLATE [Norvasc] 5 mg PO HS 02/02/14 [History] metFORMIN HCL [Glucophage] 500 mg PO AC-BID 02/02/14 [History] Insulin Detemir [Levemir Flextouch] 8 units SQ DAILY@1430 05/31/15 [History] Ipratropium-Albuterol Nebulize [Duoneb 0.5 mg-3 mg/3 ml Soln] 3 ml INHALATION RT -QID PRN 08/20/16 [History] Linagliptin [Tradjenta] 5 mg PO DAILY 05/17/17 [History] Montelukast [Singulair] 10 mg PO DAILY 05/17/17 [History] Fluticasone/Salmeterol [Advair 250-50 Diskus] 1 puff INHALATION RT-BID 05/18/17 [History] Metoprolol Tartrate [Lopressor] 100 mg PO BID 07/18/17 [History] Sennosides [Senna] 12.9 mg PO HS 07/18/17 [History] Atorvastatin [Lipitor] 40 mg PO HS #30 tab 07/23/17 [Rx] Clopidogrel [Plavix] 75 mg PO DAILY #30 tab 07/23/17 [Rx] Nitroglycerin Sl Tabs [Nitrostat] 0.4 mg SUBLINGUAL Q5M PRN #25 tab 07/23/17 [Rx ] Isosorbide Mononitrate ER [Imdur] 30 mg PO DAILY #30 tab.er.24h 09/23/17 [Rx] Rivaroxaban [Xarelto] 15 mg PO W/SUPPER #30 tab 09/24/17 [Rx] Amiodarone [Cordarone] 200 mg PO TID #90 tab 09/26/17 [Rx] Levofloxacin [Levaquin] 500 mg PO DAILY #5 tab 09/26/17 [Rx] Acetaminophen Tab [Tylenol] 325 mg PO Q6HR PRN tab 10/02/17 [Rx] Nitroglycerin Sl Tabs [Nitrostat] 0.4 mg SUBLINGUAL Q5M PRN tab 10/02/17 [Rx] Oxazepam [Serax] 15 mg PO BID #60 capsule 10/02/17 [Rx] Follow up Appointment(s)/Referral(s): Georgi Thayer MD [Primary Care Provider] - 2 Weeks Discharge Disposition: TRANSFER TO SNF/ECF
[2017-10-02] MEDS: SYMBICORT 80-4.5 MCG INHALER INHALATION SCH (08:40)
[2017-10-02] MEDS: IPRATROPIUM-ALBUTEROL 3 ML NEB INHALATION PRN ×2 (08:40→11:53)
[2017-10-02] MEDS ORDERED: AMIODARONE 200 MG TAB PO SCH (09:00)
[2017-10-02] MEDS: MONTELUKAST 10 MG TAB PO SCH (09:03)
[2017-10-02] MEDS: LINAGLIPTIN 5 MG TABLET PO SCH (09:04)
[2017-10-02] MEDS: CLOPIDOGREL 75 MG TAB PO SCH (09:04)
[2017-10-02] MEDS: ISOSORBIDE MONONITRATE ER 30 MG TAB.ER.24H PO SCH (09:04)
[2017-10-02] MEDS: AMIODARONE 200 MG TAB PO SCH (09:04)
[2017-10-02] MEDS: METOPROLOL TARTRATE 50 MG TAB PO SCH (09:04)
[2017-10-02 11:52] LABS: Glucose,Whole Blood 162 mg/dL (75-99)
[2017-10-02] MEDS ORDERED: BISACODYL 10 MG SUPP RECTAL PRN (12:42)
[2017-10-02] MEDS ORDERED: MAGNESIUM HYDROXIDE 2,400 MG/10 ML CUP PO PRN (12:43)
--- NOTE | 2017-10-02 14:47 | P.PN ---
Subjective Progress Note Date: 10/02/17 This is a pleasant 87-year-old female who follows regularly with Dr. Juan Diego Nunez in the office. She has a known history of coronary artery disease with prior RCA stenting as well as LAD stenting, her LAD was most recently stented in June 2017. She was recently in the hospital one week ago which time she underwent a cardiac catheterization by Dr. 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 Mild disease in the circumflex. Medical therapy was advised. Patient also has a history of paroxysmal trial fibrillation, on anticoagulation in the form of Xarelto, hypertension, diabetes, hyperlipidemia, COPD, GERD, and prior CVA. She presents back to the hospital with symptoms of left sided chest discomfort with associated shortness of breath. She also states that she's been having a cough at home, nonproductive. He denies any fever, states that she has chills frequently. EKG on admission here shows normal sinus rhythm with frequent PVCs. Nonspecific ST-T wave changes. Chest x-ray reveals a new right middle lobe opacity which may represent pneumonia or atelectasis. Blood pressure 122/ 60, heart rate in the 60s to 70s. White blood cell count is normal, hemoglobin 7.8, d-dimer 1.7, potassium 5.4, BUN 40, creatinine 2.2. Troponin 0.012, 0.014. BNP level 4420. Her renal function was noted to have a creatinine of 1.5 on September 25. Echocardiogram with Doppler study performed in August revealed an ejection fraction of 60-65%. Patient is also known to have moderate mitral regurgitation. At the time of my examination this morning, patient is sitting up at bedside, states she feels weak and tired, denies chest pain, her breathing is stable. 10/01/2017 Patient was seen and examined this morning, she's been up ambulating in the [facility] , doing much better overall today. Hemodynamically stable. BUN 29, creatinine 1.6, hemoglobin 7.4. 10/02/2017 Patient seen and examined this morning, feeling well, hemodynamically stable. Being discharged today. Objective - Vital Signs Vital signs: Vital Signs Temp 97.3 F L 10/02/17 08:00 Pulse 64 10/02/17 12:00 Resp 18 10/02/17 08:00 BP 151/73 10/02/17 08:00 Pulse Ox 99 10/02/17 08:00 Intake & Output 10/01/17 10/02/17 10/02/17 18:59 06:59 18:59 Intake Total 2160 320 1320 Output Total 900 Balance 3872 142 7933 Weight 63.3 kg Intake: IV 320 0.9 320 Intake, IV Titration 120 Amount Sodium Chloride 0.9% 1, 120 000 ml @ 100 mls/hr IV . Q10H [facility] Rx#:[id number] Oral 2040 1320 Output: Urine 900 Other: Voiding Method Toilet Toilet Toilet # Voids 3 - Exam PHYSICAL EXAMINATION: HEENT: Head is atraumatic, normocephalic. Pupils equal, round. Neck is supple. There is no elevated jugular venous pressure. HEART EXAMINATION: Heart S1 S2 1 systolic murmur is heard. CHEST EXAMINATION: Lungs reveal fine crackles to bilateral bases. ABDOMEN: Soft, nontender. Bowel sounds are heard. No organomegaly noted. EXTREMITIES: 2+ peripheral pulses with no evidence of peripheral edema and no calf tenderness noted. NEUROLOGIC patient is awake, alert and oriented -3. - Labs CBC & Chem 7: 10/01/17 05:26 10/01/17 05:26 Labs: Abnormal Lab Results - Last 24 Hours (Table) 10/01/17 10/01/17 10/02/17 Range/Units 16:07 20:46 05:50 POC Glucose (mg/dL) 167 H 137 H 105 H (75-99) mg/dL 10/02/17 Range/Units 11:31 POC Glucose (mg/dL) 162 H (75-99) mg/dL Microbiology - Last 24 Hours (Table) 09/30/17 05:56 Blood Culture - Preliminary Blood No Growth after 48 hours Assessment and Plan Plan: Assessment and plan #1 chest pain, not suggestive of acute coronary syndrome. Troponin 0.012, 0.014. EKG shows normal sinus rhythm with frequent PVCs. No acute changes noted. Patient just underwent a cardiac catheterization earlier this month which revealed a patent stent in the LAD, RCA had mild in-stent restenosis, unchanged from her cath in June 2017. Medical therapy was advised. #2 symptoms of progressive shortness of breath, chest x-ray suggests possible new infiltrate. Patient is currently on antibiotics. D-dimer 1.74. #3 known history of coronary artery disease with prior RCA and LAD stent, most recent stent was performed in June of last year to the LAD. #4 hypertension #5 COPD #6 hyperlipidemia #7 diabetes #8 acute on chronic renal insufficiency, creatinine was 1.4 on discharge, 2.2 this morning. #9 anemia 10 moderate mitral regurg Plan Patient had a recent echo performed in August of last year which revealed an ejection fraction of 55-60%, we will not repeat an echo on this admission. From cardiology's perspective, patient may be able to be discharged once cleared by the primary. We will make a follow-up appointment in the office post discharge. DNP note has been reviewed, I agree with a documented findings and plan of care. Patient was seen and examined.
[2017-10-02] MEDS: INSULIN DETEMIR 100 UNIT/ML 10 ML VIAL SQ SCH (16:26)
[2017-10-02 16:36] LABS: Glucose,Whole Blood 127 mg/dL (75-99)
--- NOTE | 2017-10-02 16:56 | CDI ---
Last Revision, August 2017 Documentation Clarification Form Date: 10/02/2017 4:47:00 PM From: Kimmie ELVI Guzman, CCDS Admit Date: 09/29/2017 3:21:00 PM Patient Name: Sonal Ulloa Visit Number: [id number] Discharge Date: 10/02/2016 ATTENTION: The Clinical Documentation Specialists (CDI) and [facility] Coding Staff appreciate your assistance in clarifying documentation. Please respond to the clarification below the line at the bottom and electronically sign. The CDI & [facility] Coding staff will review the response and follow-up if needed. Please note: Queries are made part of the Legal Health Record. If you have any questions, please contact the author of this message via ITS. Dr. Georgi Thayer: History/Risk Factors: CAD with stents, Previous MIs (most recent 09/21/2017), COPD, CVA, TIA, DM, GERD. Clinical Indicators: Patient presented with dizziness, left side chest pain, occasional sob. VS: P 58 - 48*, BP 147/96, PO 98 ra BNP: 4420 Echocardiogram Results: (08/25/2017): EF 60-65% systolic function wnl. Chest X Ray: New RML opacity, may be atelectasis or pneumonia. Treatment: Telemetry, Blood cx, ASA, Nitropaste, IV levaquin, IV Vanco, IV Maxipime, Nitro sl, Albuterol INH. Home meds: Norvasc, Xarelto, Lopressor, Imdur, Plavix, Lipitor In your professional opinion, can you please clarify the acuity and type of CHF if known? Systolic Heart Failure: o Acute o Chronic o Acute on Chronic Diastolic Heart Failure: o Acute o Chronic o Acute on Chronic Systolic & Diastolic Heart Failure: o Acute o Chronic o Acute on Chronic Heart Failure Unable to Determine Other, please specify Please continue to document in your progress notes and discharge summary in order to capture severity of illness and risk of mortality. Include clinical findings that support your diagnosis. MTDD
[2017-10-02 17:24] VITALS: BP 137/74; PULSE 58; TEMP 97.6
== END 2017-10-02 17:37 | DRG 193 ==
LOC: EC 12:57 → 6SEL 15:21
PROVIDERS: ADMIT Family Medicine; ATTEND Family Medicine
DX: J18.9 Pneumonia, unspecified organism (principal); I21.9 Acute myocardial infarction, unspecified; N17.9 Acute kidney failure, unspecified; I13.0 Hypertensive heart and chronic kidney disease with heart failure and stage 1 through stage 4 chronic kidney disease, or unspecified chronic kidney disease; F05 Delirium due to known physiological condition; I50.22 Chronic systolic (congestive) heart failure; T82.855A Stenosis of coronary artery stent, initial encounter; J44.0 Chronic obstructive pulmonary disease with (acute) lower respiratory infection; E11.22 Type 2 diabetes mellitus with diabetic chronic kidney disease; E87.5 Hyperkalemia; I25.10 Atherosclerotic heart disease of native coronary artery without angina pectoris; Y71.8 Miscellaneous cardiovascular devices associated with adverse incidents, not elsewhere classified; Y92.9 Unspecified place or not applicable; D63.8 Anemia in other chronic diseases classified elsewhere; E78.5 Hyperlipidemia, unspecified; F29 Unspecified psychosis not due to a substance or known physiological condition; G47.00 Insomnia, unspecified; H91.90 Unspecified hearing loss, unspecified ear; I25.2 Old myocardial infarction; I34.0 Nonrheumatic mitral (valve) insufficiency; I48.91 Unspecified atrial fibrillation; K21.9 Gastro-esophageal reflux disease without esophagitis; F32.9 Major depressive disorder, single episode, unspecified; M19.90 Unspecified osteoarthritis, unspecified site; R00.1 Bradycardia, unspecified; J44.9 Chronic obstructive pulmonary disease, unspecified; L30.9 Dermatitis, unspecified; N18.9 Chronic kidney disease, unspecified; Z90.49 Acquired absence of other specified parts of digestive tract; Z87.891 Personal history of nicotine dependence; Z86.73 Personal history of transient ischemic attack (TIA), and cerebral infarction without residual deficits; Z79.02 Long term (current) use of antithrombotics/antiplatelets; Z79.899 Other long term (current) drug therapy; Z79.4 Long term (current) use of insulin; Z79.01 Long term (current) use of anticoagulants; Z88.1 Allergy status to other antibiotic agents; Z88.0 Allergy status to penicillin; Z88.2 Allergy status to sulfonamides; Z82.49 Family history of ischemic heart disease and other diseases of the circulatory system; Y83.1 Surgical operation with implant of artificial internal device as the cause of abnormal reaction of the patient, or of later complication, without mention of misadventure at the time of the procedure
CPT/HCPCS: 36415; 71046; 80048; 80053; 81001; 82550; 82553; 83036; 83735; 83880; 84484; 85025; 85027; 85379; 85610; 85730; 87040; 87086; 93005; 94640; 94760; 96365; 99285

== ENCOUNTER → 2017-12-09 | Outpatient (CLI) | payer MEDICARE ==
[2017-12-09 16:59] LABS: Anisocytosis Slight; Basophils # (A) 0.1 k/uL (0-0.2); Basophils % (A) 1 %; Eosinophils # (A) 0.2 k/uL (0-0.7); Eosinophils % (A) 2 %; HCT 29.7 % (34.0-46.0); HGB 9.2 gm/dL (11.4-16.0); Hypochromasia Moderate; Lymphocytes # (A) 2.2 k/uL (1.0-4.8); Lymphocytes % (A) 23 %; MCH 24.6 pg (25.0-35.0); MCHC 30.9 g/dL (31.0-37.0); MCV 79.5 fL (80.0-100.0); Mean Platelet Volume 6.4; Monocytes # (A) 0.6 k/uL (0-1.0); Monocytes % (A) 6 %; Neutrophils # (A) 6.5 k/uL (1.3-7.7); Neutrophils % (A) 67 %; Platelet Count 490 k/uL (150-450); RBC 3.73 m/uL (3.80-5.40); RDW 16.5 % (11.5-15.5); WBC 9.7 k/uL (3.8-10.6)
[2017-12-09 17:00] LABS: Appearance,Urine Clear (Clear); Bilirubin,Urine Negative (Negative); Blood,Urine Negative (Negative); Color,Urine Yellow; Glucose,Urine (UA) Negative (Negative); Ketones,Urine Negative (Negative); Leukocyte Esterase,Urine Negative (Negative); Nitrite,Urine Negative (Negative); PH, Urine 6.5 (5.0-8.0); Protein,Urine 1+ (Negative); RBC,Urine 1 /hpf (0-5); Squamous Epithelial Cell,Urine <1 /hpf (0-4); Urobilinogen,Urine <2.0 mg/dL (<2.0); WBC,Urine 1 /hpf (0-5)
[2017-12-09 17:19] LABS: Calcium 9.1 mg/dL (8.4-10.2); Magnesium 1.6 mg/dL (1.6-2.3); Phosphorus 3.6 mg/dL (2.5-4.5); Potassium 4.5 mmol/L (3.5-5.1); Uric Acid 6.6 mg/dL (3.7-7.4)
[2017-12-10 00:58] LABS: Parathyroid Hormone Intact 65.6 pg/mL (14.0-72.0)
[2017-12-10 02:34] LABS: Vitamin D 25 Hydroxy 31.8 ng/mL (30.0-100.0)
[2017-12-10 02:39] LABS: Iron Saturation 8.1 (12.00-45.00)
== END | disposition home or self-care (01) ==
LOC: LABWHC1 16:10
PROVIDERS: ATTEND Nurse Practitioner Family
DX: N39.0 Urinary tract infection, site not specified (principal); M10.9 Gout, unspecified; N18.3 Chronic kidney disease, stage 3 (moderate); D63.1 Anemia in chronic kidney disease; N25.81 Secondary hyperparathyroidism of renal origin
CPT/HCPCS: 36415; 80048; 81001; 82306; 82728; 83540; 83550; 83735; 83970; 84100; 84550; 85025

== ENCOUNTER 2017-12-11 09:53 | Inpatient (IN) | payer MEDICARE ==
[2017-12-11] MEDS ORDERED: IPRATROPIUM-ALBUTEROL 3 ML NEB INHALATION STA (10:26)
--- NOTE | 2017-12-11 10:31 | ED ---
General Adult HPI - General Chief complaint: Shortness of Breath Stated complaint: poss pneumonia Time Seen by Provider: 12/11/17 09:55 Source: patient, RN notes reviewed Mode of arrival: ambulatory Limitations: no limitations - History of Present Illness Initial comments: This is an 87-year-old female who presents emergency Department complaining of having cough and think she has pneumonia again. Patient states she had pneumonia a couple months ago and was in the hospital for a week and then sent to rehab for 2 weeks. Patient states she's been out of rehab for approximately 1 month. Patient states she started to develop a cough and some shortness of breath recently so she started taking the Z-Yonny that she had previously had. Patient states she's also coughing up some dark sputum. Patient denies any fever chills. Patient denies any lightheadedness or dizziness. Patient states she does have some chest discomfort. Patient denies abdominal pain patient denies nausea vomiting or diarrhea. - Related Data Home Medications Medication Instructions Recorded Confirmed HYDROcodone/APAP 5-325MG [[place] 1 tab PO TID PRN 02/02/14 12/11/17 5-325] Omeprazole [PriLOSEC] 20 mg PO AC-BRKFST 02/02/14 12/11/17 amLODIPine BESYLATE [Norvasc] 5 mg PO HS 02/02/14 12/11/17 metFORMIN HCL [Glucophage] 500 mg PO AC-BID 02/02/14 12/11/17 Insulin Detemir [Levemir Flextouch] 8 units SQ DAILY@1430 05/31/15 12/11/17 Ipratropium-Albuterol Nebulize 3 ml INHALATION RT-QID PRN 08/20/16 12/11/17 [Duoneb 0.5 mg-3 mg/3 ml Soln] Linagliptin [Tradjenta] 5 mg PO DAILY 05/17/17 12/11/17 Montelukast [Singulair] 10 mg PO DAILY 05/17/17 12/11/17 Fluticasone/Salmeterol [Advair 1 puff INHALATION RT-BID 05/18/17 12/11/17 250-50 Diskus] Metoprolol Tartrate [Lopressor] 100 mg PO BID 07/18/17 12/11/17 Sennosides [Senna] 12.9 mg PO HS 07/18/17 12/11/17 Azithromycin [Zithromax Z-pack] See Taper PO DIRECTED 12/11/17 12/11/17 Clopidogrel [Plavix] 75 mg PO DAILY@1500 12/11/17 12/11/17 Rivaroxaban [Xarelto] 15 mg PO DAILY@1900 12/11/17 12/11/17 Previous Rx's Medication Instructions Recorded Atorvastatin [Lipitor] 40 mg PO HS #30 tab 07/23/17 Nitroglycerin Sl Tabs [Nitrostat] 0.4 mg SUBLINGUAL Q5M PRN #25 tab 07/23/17 Isosorbide Mononitrate ER [Imdur] 30 mg PO DAILY #30 tab.er.24h 09/23/17 Acetaminophen Tab [Tylenol] 325 mg PO Q6HR PRN tab 10/02/17 Oxazepam [Serax] 15 mg PO BID #60 capsule 10/02/17 Allergies Allergy/AdvReac Type Severity Reaction Status Date / Time amoxicillin trihydrate Allergy Unknown Verified 12/11/17 10:21 [From Augmentin] clindamycin HCl Allergy Unknown Verified 12/11/17 10:21 [From Cleocin] clindamycin palmitate HCl Allergy Unknown Verified 12/11/17 10:21 [From Cleocin] clindamycin phosphate Allergy Unknown Verified 12/11/17 10:21 [From Cleocin] codeine Allergy Unknown Verified 12/11/17 10:21 nitrofurantoin Allergy Unknown Verified 12/11/17 10:21 [From Macrobid] nitrofurantoin Allergy Unknown Verified 12/11/17 10:21 macrocrystalline [From Macrobid] Penicillins Allergy Unknown Verified 12/11/17 10:21 potassium clavulanate Allergy Unknown Verified 12/11/17 10:21 [From Augmentin] prednisone Allergy Unknown Verified 12/11/17 10:21 quinine Allergy Unknown Verified 12/11/17 10:21 Sulfa (Sulfonamide Allergy Unknown Verified 12/11/17 10:21 Antibiotics) sulfamethoxazole Allergy Unknown Verified 12/11/17 10:21 [From Bactrim] trimethoprim [From Bactrim] Allergy Unknown Verified 12/11/17 10:21 Review of Systems ROS Statement: Those systems with pertinent positive or pertinent negative responses have been documented in the HPI. ROS Other: All systems not noted in ROS Statement are negative. Past Medical History Past Medical History: Coronary Artery Disease (CAD), Chest Pain / Angina, COPD, CVA/TIA, Diabetes Mellitus, GERD/Reflux, Hearing Disorder / Deafness, Hyperlipidemia, Hypertension, Myocardial Infarction ([place]), Osteoarthritis (OA), Pneumonia Additional Past Medical History / Comment(s): anemia, eczema, constipation, TIA X 3, esophageal dilation due to issues swallowing Last Myocardial Infarction Date:: 1998, 09/21/17 History of Any Multi-Drug Resistant Organisms: VRE Date of last positivie culture/infection: 10/07/17 MDRO Source:: VRE URINE Past Surgical History: Cholecystectomy, Heart Catheterization With Stent Additional Past Surgical History / Comment(s): cataracts w/ lens implants, 2 ovary removed, heart caths :04/30/96 stent to rca, 03/18/2000 stent to mid rca, stent to lad Past Anesthesia/Blood Transfusion Reactions: Previous Problems w/ Anesthesia Additional Past Anesthesia/Blood Transfusion Reaction / Comment(s): difficulty breathing after anesthesia Date of Last Stent Placement:: 06/2017 Past Psychological History: Depression Smoking Status: Former smoker Past Alcohol Use History: None Reported Past Drug Use History: None Reported - Past Family History Father History Unknown: Yes Family Medical History: Myocardial Infarction ([place]) Mother History Unknown: Yes Family Medical History: Myocardial Infarction ([place]) Additional Family Medical History / Comment(s): Mother of a [place] at about age 80yrs. General Exam - General Exam Comments Initial Comments: GENERAL: Patient is well-developed and well-nourished. Patient is nontoxic and well- hydrated and is in mild distress. ENT: Neck is soft and supple. No significant lymphadenopathy is noted. Oropharynx is clear. Moist mucous membranes. Neck has full range of motion without eliciting any pain. EYES: The sclera were anicteric and conjunctiva were pink and moist. Extraocular movements were intact and pupils were equal round and reactive to light. Eyelids were unremarkable. PULMONARY: Patient has crackles in both bases. CARDIOVASCULAR: There is a regular rate and rhythm without any murmurs gallops or rubs. ABDOMEN: Soft and nontender with normal bowel sounds. No palpable organomegaly was noted. There is no palpable pulsatile mass. SKIN: Skin is clear with no lesions or rashes and otherwise unremarkable. NEUROLOGIC: Patient is alert and oriented x3. Cranial nerves II through XII are grossly intact. Motor and sensory are also intact. Normal speech, volume and content. Symmetrical smile. MUSCULOSKELETAL: Normal extremities with adequate strength and full range of motion. No lower extremity swelling or edema. No calf tenderness. LYMPHATICS: No significant lymphadenopathy is noted PSYCHIATRIC: Normal psychiatric evaluation. Limitations: no limitations Course Vital Signs 12/11/17 12/11/17 12/11/17 09:55 10:26 10:50 Temperature 97.3 F L 99.8 F H Pulse Rate 75 75 Respiratory 18 Rate Blood Pressure 154/68 O2 Sat by Pulse 97 Oximetry 12/11/17 12/11/17 12/11/17 10:56 11:11 12:52 Temperature Pulse Rate 76 73 82 Respiratory 16 18 Rate Blood Pressure 158/66 138/80 O2 Sat by Pulse 95 96 Oximetry Medical Decision Making - Medical Decision Making EKG shows sinus rhythm at 73 bpm SD interval 160 QRS is under 40 QT interval 442 QTC is 486. Patient has an occasional PVC. Patient's EKG shows a left bundle branch block which I did not seen her previous EKG. X-ray shows an area suspicious for infiltrate work versus chronic scarring Because of the potential for pneumonia and the fact that the patient has a fever planes that she is coughing up quite a bit of sputum and short of breath and she's 87 I determined to admit the patient for pneumonia. I spoke with Dr. Thayer because he agreed to admit the patient. - Lab Data Result diagrams: 12/11/17 11:15 12/11/17 11:15 Lab Results 12/11/17 12/11/17 12/11/17 Range/Units 11:15 11:15 11:15 WBC 12.3 H (3.8-10.6) k/uL RBC 3.77 L (3.80-5.40) m/uL Hgb 9.2 L (11.4-16.0) gm/dL Hct 29.4 L (34.0-46.0) % MCV 77.8 L (80.0-100.0) fL MCH 24.5 L (25.0-35.0) pg MCHC 31.5 (31.0-37.0) g/dL RDW 16.6 H (11.5-15.5) % Plt Count 467 H (150-450) k/uL Neutrophils % 78 % Lymphocytes % 12 % Monocytes % 6 % Eosinophils % 2 % Basophils % 0 % Neutrophils # 9.6 H (1.3-7.7) k/uL Lymphocytes # 1.5 (1.0-4.8) k/uL Monocytes # 0.7 (0-1.0) k/uL Eosinophils # 0.3 (0-0.7) k/uL Basophils # 0.1 (0-0.2) k/uL Hypochromasia Slight Anisocytosis Slight Microcytosis Slight PT (9.0-12.0) sec INR (<1.2) APTT (22.0-30.0) sec D-Dimer (<0.60) mg/L FEU Sodium 140 (137-145) mmol/L Potassium 4.3 (3.5-5.1) mmol/L Chloride 105 (98-107) mmol/L Carbon Dioxide 24 (22-30) mmol/L Anion Gap 11 mmol/L BUN 20 H (7-17) mg/dL Creatinine 1.25 H (0.52-1.04) mg/dL Est GFR (CKD-EPI)AfAm 46 (>60 ml/min/1.73 sqM) Est GFR (CKD-EPI)NonAf 39 (>60 ml/min/1.73 sqM) Glucose 118 H (74-99) mg/dL Calcium 9.2 (8.4-10.2) mg/dL Total Bilirubin 0.4 (0.2-1.3) mg/dL AST 23 (14-36) U/L ALT 17 (9-52) U/L Alkaline Phosphatase 90 (38-126) U/L Total Creatine Kinase 81 (30-135) U/L CK-MB (CK-2) 1.5 (0.0-2.4) ng/mL CK-MB (CK-2) Rel Index 1.9 Troponin I 0.025 (0.000-0.034) ng/mL NT-Pro-B Natriuret Pep pg/mL Total Protein 6.6 (6.3-8.2) g/dL Albumin 3.1 L (3.5-5.0) g/dL 03/22/18 03/22/18 03/22/18 Range/Units 11:15 11:15 11:15 WBC (3.8-10.6) k/uL RBC (3.80-5.40) m/uL Hgb (11.4-16.0) gm/dL Hct (34.0-46.0) % MCV (80.0-100.0) fL MCH (25.0-35.0) pg MCHC (31.0-37.0) g/dL RDW (11.5-15.5) % Plt Count (150-450) k/uL Neutrophils % % Lymphocytes % % Monocytes % % Eosinophils % % Basophils % % Neutrophils # (1.3-7.7) k/uL Lymphocytes # (1.0-4.8) k/uL Monocytes # (0-1.0) k/uL Eosinophils # (0-0.7) k/uL Basophils # (0-0.2) k/uL Hypochromasia Anisocytosis Microcytosis PT 10.3 (9.0-12.0) sec INR 1.1 (<1.2) APTT 27.4 (22.0-30.0) sec D-Dimer 0.60 H (<0.60) mg/L FEU Sodium (137-145) mmol/L Potassium (3.5-5.1) mmol/L Chloride (98-107) mmol/L Carbon Dioxide (22-30) mmol/L Anion Gap mmol/L BUN (7-17) mg/dL Creatinine (0.52-1.04) mg/dL Est GFR (CKD-EPI)AfAm (>60 ml/min/1.73 sqM) Est GFR (CKD-EPI)NonAf (>60 ml/min/1.73 sqM) Glucose (74-99) mg/dL Calcium (8.4-10.2) mg/dL Total Bilirubin (0.2-1.3) mg/dL AST (14-36) U/L ALT (9-52) U/L Alkaline Phosphatase (38-126) U/L Total Creatine Kinase (30-135) U/L CK-MB (CK-2) (0.0-2.4) ng/mL CK-MB (CK-2) Rel Index Troponin I (0.000-0.034) ng/mL NT-Pro-B Natriuret Pep 4890 pg/mL Total Protein (6.3-8.2) g/dL Albumin (3.5-5.0) g/dL Disposition Clinical Impression: Pneumonia Disposition: ADMITTED IP TO THIS HOSP Referrals: Georgi Thayer MD [Primary Care Provider] - 1-2 days Time of Disposition: 13:35
[2017-12-11 11:34] LABS: Anisocytosis Slight; Basophils # (A) 0.1 k/uL (0-0.2); Basophils % (A) 0 %; Eosinophils # (A) 0.3 k/uL (0-0.7); Eosinophils % (A) 2 %; HCT 29.4 % (34.0-46.0); HGB 9.2 gm/dL (11.4-16.0); Hypochromasia Slight; Lymphocytes # (A) 1.5 k/uL (1.0-4.8); Lymphocytes % (A) 12 %; MCH 24.5 pg (25.0-35.0); MCHC 31.5 g/dL (31.0-37.0); MCV 77.8 fL (80.0-100.0); Mean Platelet Volume 6.7; Microcytosis Slight; Monocytes # (A) 0.7 k/uL (0-1.0); Monocytes % (A) 6 %; Neutrophils # (A) 9.6 k/uL (1.3-7.7); Neutrophils % (A) 78 %; Platelet Count 467 k/uL (150-450); RBC 3.77 m/uL (3.80-5.40); RDW 16.6 % (11.5-15.5); WBC 12.3 k/uL (3.8-10.6)
[2017-12-11 11:49] LABS: Albumin 3.1 g/dL (3.5-5.0); Calcium 9.2 mg/dL (8.4-10.2); Potassium 4.3 mmol/L (3.5-5.1); Total Bilirubin 0.4 mg/dL (0.2-1.3); Total Protein 6.6 g/dL (6.3-8.2)
[2017-12-11 11:51] LABS: INR 1.1 (<1.2); Partial Thromboplastin Time 27.4 sec (22.0-30.0); Prothrombin Time 10.3 sec (9.0-12.0)
--- NOTE | 2017-12-11 12:10 | XR ---
EXAMINATION TYPE: XR chest 2V DATE OF EXAM: 12/11/2017 COMPARISON: Prior chest x-ray 10/28/2017, 09/29/[address] abdomen pelvis 09/20/2015 HISTORY: Difficulty breathing TECHNIQUE: Frontal and lateral views of the chest are obtained. FINDINGS: Patient is rotated. There is no pleural effusion or pneumothorax seen. The cardiac silhoue tte size is stable, enlarged. Increased AP diameter chest compatible with underlying COPD. On mineral ization is reduced. The osseous structures are remarkable for compression deformity in the thoracic l umbar spine junction level as on prior exam. Interstitium is increased. Basilar bronchiectasis is not ed. Difficult to exclude some basilar inflammatory change as noted on previous exams of questionable acuity, possible scarring. There are prominent epicardial fat pads. IMPRESSION: Findings at the right lung base are likely chronic, correlate to exclude pneumonia. Bron chiectasis. Cardiomegaly.
[2017-12-11 12:11] LABS: Creatine Kinase MB 1.5 ng/mL (0.0-2.4); Troponin I 0.025 ng/mL (0.000-0.034)
[2017-12-11] MEDS ORDERED: RX INFO: IV CONTRAST WAS GIVEN 1 EACH MISC MISCELLANE PRN (12:35)
[2017-12-11] MEDS ORDERED: LEVOFLOXACIN 750MG-D5W PMX 750 MG in DEXTROSE/WATER 1 150ML.BAG IVPB STA (13:31)
[2017-12-11] MEDS ORDERED: PNEUMONIA PROTOCOL UTILIZED 1 EACH MISC PO PRN (13:35)
[2017-12-11] MEDS: IPRATROPIUM-ALBUTEROL 3 ML NEB INHALATION SCH ×2 (16:30→18:44)
[2017-12-11 17:15] LABS: Glucose,Whole Blood 170 mg/dL (75-99)
[2017-12-11] MEDS ORDERED: NITROGLYCERIN SL TABS 0.4 MG TAB SUBLINGUAL PRN (17:23)
[2017-12-11] MEDS ORDERED: ACETAMINOPHEN TAB 325 MG TAB PO PRN (17:23)
[2017-12-11] MEDS ORDERED: INSULIN ASPART 100 UNIT/ML 1 ML 10 ML VIAL SQ SCH ×2 (17:30)
[2017-12-11] MEDS: metFORMIN 500 MG TAB PO SCH (18:03)
[2017-12-11] MEDS: ALPRAZolam 0.5 MG TAB PO PRN (18:12)
[2017-12-11] MEDS: SYMBICORT 80-4.5 MCG INHALER INHALATION SCH (18:44)
[2017-12-11] MEDS: RIVAROXABAN 15 MG TAB PO SCH (19:36)
[2017-12-11 20:28] LABS: Glucose,Whole Blood 116 mg/dL (75-99)
[2017-12-11] MEDS: SENNOSIDES 8.6 MG TAB PO SCH (20:52)
[2017-12-11] MEDS: METOPROLOL TARTRATE 50 MG TAB PO SCH (20:55)
[2017-12-11] MEDS: ATORVASTATIN 40 MG TAB PO SCH (20:55)
[2017-12-11] MEDS: amLODIPine 5 MG TAB PO SCH (20:55)
[2017-12-11] MEDS: HYDROcodone/APAP 5-325MG 1 EACH TAB PO PRN (22:47)
[2017-12-12] MEDS: SYMBICORT 80-4.5 MCG INHALER INHALATION SCH ×2 (07:21→19:03)
[2017-12-12] MEDS: IPRATROPIUM-ALBUTEROL 3 ML NEB INHALATION SCH ×4 (07:21→19:03)
[2017-12-12 07:54] LABS: Glucose,Whole Blood 102 mg/dL (75-99)
--- NOTE | 2017-12-12 08:07 | P.HPIM ---
History of Present Illness H&P Date: 12/12/17 Chief Complaint: Cough and shortness of breath. This is a 87-year-old white female who states for 3 days, his she's been having worsening cough. She has not underlying history of coronary disease but states productive cough over the last 3-4 days. Low-grade fever is noted. Given her overall risk elements, she showed clinical pneumonia. X-ray did not show new infiltrate but was difficult to interpret secondary to her previous scarring and symptomatology. Again, given her overall risk including advancing age, she was appropriately admitted. She states dyspnea on exertion over the last 2-3 days. Low-grade fever no significant voiding difficulties. No nausea, vomiting or diarrhea is stated. Review of Systems Constitutional: Denies chills, Denies fever Eyes: denies blurred vision, denies pain Ears, nose, mouth and throat: Denies headache, Denies sore throat Cardiovascular: Denies shortness of breath Respiratory: Denies cough Gastrointestinal: Denies abdominal pain, Denies diarrhea, Denies nausea, Denies vomiting Genitourinary: Denies dysuria, Denies hematuria Past Medical History Past Medical History: Coronary Artery Disease (CAD), Chest Pain / Angina, COPD, CVA/TIA, Diabetes Mellitus, GERD/Reflux, Hearing Disorder / Deafness, Hyperlipidemia, Hypertension, Myocardial Infarction ([place]), Osteoarthritis (OA), Pneumonia Additional Past Medical History / Comment(s): anemia, eczema, constipation, TIA X 3, esophageal dilation due to issues swallowing Last Myocardial Infarction Date:: 1998, 09/21/17 History of Any Multi-Drug Resistant Organisms: VRE Date of last positivie culture/infection: 10/07/17 MDRO Source:: VRE URINE Past Surgical History: Cholecystectomy, Heart Catheterization With Stent Additional Past Surgical History / Comment(s): cataracts w/ lens implants, 2 ovary removed, heart caths :04/30/96 stent to rca, 03/18/2000 stent to mid rca, stent to lad Past Anesthesia/Blood Transfusion Reactions: Previous Problems w/ Anesthesia Additional Past Anesthesia/Blood Transfusion Reaction / Comment(s): difficulty breathing after anesthesia Date of Last Stent Placement:: 06/2017 Smoking Status: Former smoker - Past Family History Father History Unknown: Yes Family Medical History: Myocardial Infarction ([place]) Mother History Unknown: Yes Family Medical History: Myocardial Infarction ([place]) Additional Family Medical History / Comment(s): Mother of a [place] at about age 80yrs. Medications and Allergies Home Medications Medication Instructions Recorded Confirmed Type HYDROcodone/APAP 5-325MG [[place] 1 tab PO TID PRN 02/02/14 12/11/17 History 5-325] Omeprazole [PriLOSEC] 20 mg PO AC-BRKFST 02/02/14 12/11/17 History amLODIPine BESYLATE [Norvasc] 5 mg PO HS 02/02/14 12/11/17 History metFORMIN HCL [Glucophage] 500 mg PO AC-BID 02/02/14 12/11/17 History Insulin Detemir [Levemir Flextouch] 8 units SQ DAILY@1430 05/31/15 12/11/17 History Ipratropium-Albuterol Nebulize 3 ml INHALATION RT-QID PRN 08/20/16 12/11/17 History [Duoneb 0.5 mg-3 mg/3 ml Soln] Linagliptin [Tradjenta] 5 mg PO DAILY 05/17/17 12/11/17 History Montelukast [Singulair] 10 mg PO DAILY 05/17/17 12/11/17 History Fluticasone/Salmeterol [Advair 1 puff INHALATION RT-BID 05/18/17 12/11/17 History 250-50 Diskus] Metoprolol Tartrate [Lopressor] 100 mg PO BID 07/18/17 12/11/17 History Sennosides [Senna] 12.9 mg PO HS 07/18/17 12/11/17 History Atorvastatin [Lipitor] 40 mg PO HS #30 tab 07/23/17 12/11/17 Rx Nitroglycerin Sl Tabs [Nitrostat] 0.4 mg SUBLINGUAL Q5M PRN #25 tab 07/23/17 Rx Isosorbide Mononitrate ER [Imdur] 30 mg PO DAILY #30 tab.er.24h 09/23/17 Rx Acetaminophen Tab [Tylenol] 325 mg PO Q6HR PRN tab 10/02/17 12/11/17 Rx Oxazepam [Serax] 15 mg PO BID #60 capsule 10/02/17 12/11/17 Rx Azithromycin [Zithromax Z-pack] See Taper PO DIRECTED 12/11/17 12/11/17 History Clopidogrel [Plavix] 75 mg PO DAILY@1500 12/11/17 12/11/17 History Rivaroxaban [Xarelto] 15 mg PO DAILY@1900 12/11/17 12/11/17 History Allergies Allergy/AdvReac Type Severity Reaction Status Date / Time amoxicillin trihydrate Allergy Unknown Verified 12/11/17 10:21 [From Augmentin] clindamycin HCl Allergy Unknown Verified 12/11/17 10:21 [From Cleocin] clindamycin palmitate HCl Allergy Unknown Verified 12/11/17 10:21 [From Cleocin] clindamycin phosphate Allergy Unknown Verified 12/11/17 10:21 [From Cleocin] codeine Allergy Unknown Verified 12/11/17 10:21 lorazepam [From Ativan] Allergy Confusion Verified 12/11/17 14:06 nitrofurantoin Allergy Unknown Verified 12/11/17 10:21 [From Macrobid] nitrofurantoin Allergy Unknown Verified 12/11/17 10:21 macrocrystalline [From Macrobid] Penicillins Allergy Unknown Verified 12/11/17 10:21 potassium clavulanate Allergy Unknown Verified 12/11/17 10:21 [From Augmentin] prednisone Allergy Unknown Verified 12/11/17 10:21 quinine Allergy Unknown Verified 12/11/17 10:21 Sulfa (Sulfonamide Allergy Unknown Verified 12/11/17 10:21 Antibiotics) sulfamethoxazole Allergy Unknown Verified 12/11/17 10:21 [From Bactrim] trimethoprim [From Bactrim] Allergy Unknown Verified 12/11/17 10:21 Physical Exam Vitals: Vital Signs Temp Pulse Pulse Resp BP BP Pulse Ox 12/12/17 07:31 84 12/12/17 07:21 84 16 12/12/17 07:00 98.4 F 70 16 142/64 98 12/11/17 23:00 98.1 F 91 16 119/69 99 12/11/17 20:48 89 134/70 12/11/17 19:00 82 12/11/17 18:44 80 12/11/17 16:38 80 12/11/17 16:30 78 12/11/17 16:17 97.1 F L 76 18 133/99 98 12/11/17 15:46 98.5 F 85 18 133/80 997 H 12/11/17 14:15 97.4 F L 80 18 133/65 97 12/11/17 12:52 82 18 138/80 96 12/11/17 11:11 73 16 158/66 95 12/11/17 10:56 76 12/11/17 10:50 75 12/11/17 10:26 99.8 F H 12/11/17 09:55 97.3 F L 75 18 154/68 97 Intake and Output 12/11/17 12/12/17 12/12/17 22:59 06:59 14:59 Other: Voiding Method Toilet Toilet # Voids 1 1 - Constitutional General appearance: obese - EENT Presbycusis is noted. Eyes: no abnormal pupil - Neck Neck: no lymphadenopathy - Respiratory Respiratory: bilateral: diminished - Cardiovascular Heart sounds: normal: S1, S2 Abnormal Heart Sounds: no S3 Gallop - Gastrointestinal General gastrointestinal: soft, no tenderness - Musculoskeletal Musculoskeletal: generalized weakness - Psychiatric Psychiatric: A&O x's 3 Results CBC & Chem 7: 12/11/17 11:15 12/11/17 11:15 Labs: Abnormal Lab Results - Last 24 Hours (Table) 12/11/17 12/11/17 12/11/17 Range/Units 11:15 11:15 11:15 WBC 12.3 H (3.8-10.6) k/uL RBC 3.77 L (3.80-5.40) m/uL Hgb 9.2 L (11.4-16.0) gm/dL Hct 29.4 L (34.0-46.0) % MCV 77.8 L (80.0-100.0) fL MCH 24.5 L (25.0-35.0) pg RDW 16.6 H (11.5-15.5) % Plt Count 467 H (150-450) k/uL Neutrophils # 9.6 H (1.3-7.7) k/uL D-Dimer 0.60 H (<0.60) mg/L FEU BUN 20 H (7-17) mg/dL Creatinine 1.25 H (0.52-1.04) mg/dL Glucose 118 H (74-99) mg/dL POC Glucose (mg/dL) (75-99) mg/dL Albumin 3.1 L (3.5-5.0) g/dL 12/11/17 12/11/17 12/12/17 Range/Units 17:14 20:26 07:19 WBC (3.8-10.6) k/uL RBC (3.80-5.40) m/uL Hgb (11.4-16.0) gm/dL Hct (34.0-46.0) % MCV (80.0-100.0) fL MCH (25.0-35.0) pg RDW (11.5-15.5) % Plt Count (150-450) k/uL Neutrophils # (1.3-7.7) k/uL D-Dimer (<0.60) mg/L FEU BUN (7-17) mg/dL Creatinine (0.52-1.04) mg/dL Glucose (74-99) mg/dL POC Glucose (mg/dL) 170 H 116 H 102 H (75-99) mg/dL Albumin (3.5-5.0) g/dL Thrombosis Risk Factor Assmnt - Choose All That Apply Any of the Below Risk Factors Present?: Yes Each Factor Represents 1 point: Abnormal pulmonary function (COPD), Obesity ( BMI >25), Serious lung disease incl. pneumonia (< 1month) Other Risk Factors: Yes Each Risk Factor Represents 3 Points: Age 75 years or older Other congenital or acquired thrombophilia - If yes, enter type in comment: No Thrombosis Risk Factor Assessment Total Risk Factor Score: 6 Thrombosis Risk Factor Assessment Level: High Risk Assessment and Plan (1) Pneumonia Current Visit: Yes Status: Acute Code(s): J18.9 - PNEUMONIA, UNSPECIFIED ORGANISM SNOMED Code(s): 889689388 (2) CHF (congestive heart failure) Current Visit: No Status: Acute Code(s): I50.9 - HEART FAILURE, UNSPECIFIED SNOMED Code(s): 89185115 (3) CVA (cerebral vascular accident) Current Visit: No Status: Acute Code(s): I63.9 - CEREBRAL INFARCTION, UNSPECIFIED SNOMED Code(s): 885049650 (4) Diabetes Current Visit: No Status: Acute Code(s): E11.9 - TYPE 2 DIABETES MELLITUS WITHOUT COMPLICATIONS SNOMED Code(s): 68163518 (5) Hyperlipidemia Current Visit: No Status: Acute Code(s): E78.5 - HYPERLIPIDEMIA, UNSPECIFIED SNOMED Code(s): 35782185 (6) Hypertension Current Visit: No Status: Acute Code(s): I10 - ESSENTIAL (PRIMARY) HYPERTENSION SNOMED Code(s): 13707114 Plan: We'll go ahead and treat for community acquired pneumonia. Check CBC and CMP in a.m. Continue comfort treatments with albuterol as necessary for shortness of breath. Prognosis is somewhat guarded secondary to her multiple comorbidities and advanced age. Dr. Box's group will be covering for the weekend. Anticipate discharge in next 48-72 hours. Time with Patient: Greater than 30
[2017-12-12] MEDS: PANTOPRAZOLE 40 MG TABLET PO SCH (08:47)
[2017-12-12] MEDS: metFORMIN 500 MG TAB PO SCH ×2 (08:47→17:24)
[2017-12-12] MEDS: ISOSORBIDE MONONITRATE ER 30 MG TAB.ER.24H PO SCH (08:49)
[2017-12-12] MEDS: METOPROLOL TARTRATE 50 MG TAB PO SCH ×2 (08:50→21:05)
[2017-12-12] MEDS: MONTELUKAST 10 MG TAB PO SCH (08:52)
--- NOTE | 2017-12-12 09:46 | XR ---
EXAMINATION TYPE: XR chest 2V DATE OF EXAM: 12/12/2017 COMPARISON: 12/11/2017 TECHNIQUE: PA and lateral views submitted. HISTORY: Difficulty breathing FINDINGS: Hyperinflation suggests COPD and there is bilateral consolidation small effusion. Interstitial patter n noted. Diffuse osteopenia with arthropathy of the shoulders. Hypertrophic and degenerative changes spine. Surgical clips in the abdomen. IMPRESSION: 1. COPD with stable bibasilar subsegmental consolidation greater on the right. Vague nodularity in th e right upper lobe is noted. Recommend CT of the chest exclude a pulmonary nodule. 2. Coarsened interstitium can be seen with chronic interstitial lung disease appears stable. Mild und erlying venous congestion or superimposed interstitial pneumonitis not excluded.
[2017-12-12 11:40] LABS: Glucose,Whole Blood 76 mg/dL (75-99)
[2017-12-12] MEDS ORDERED: predniSONE 20 MG TAB PO SCH (14:00)
--- NOTE | 2017-12-12 14:07 | P.CNPUL ---
History of Present Illness Consult date: 12/12/17 Requesting physician: Georgi Thayer Reason for consult: dyspnea, cough, chest pain, COPD Chief complaint: Shortness of breath, cough, congestion, chest heaviness History of present illness: Sonal is a 87-year-old white female patient of Dr. Thayer, who presented to the hospital on 12/11/2017 at 0953 complaining of increasing dyspnea, chest heaviness, chest wall soreness from coughing, cough with production of yellow sputum, chest congestion, fatigue. She states she had a heart attack on , was hospitalized, had a stent placement. She then developed pneumonia 2 days after that. She was hospitalized for about a week then, and subsequently was discharged to rehab. She has been out of rehab for approximately a month, and is currently living in [facility] [place]. She states she's had the chills, but this is chronic for her since she started blood thinners. Patient is on Xarelto for her history of paroxysmal atrial fibrillation, Aspirin and Plavix. She states Dr. Thayer had given her prescription for Zithromax a while ago and she started taking it 3 days ago for her symptoms of chest congestion, coughing , and dyspnea. However her symptoms persisted and patient came in for evaluation. Patient has an underlying history of COPD, not oxygen or prednisone dependent, sees Dr. Prado in our office. Her maintenance in inhalers include Advair, and updrafts. Chest x-ray from 12/11/2017 show chronic bibasilar inflammatory changes, greater on the right, this was compared to prior chest x-rays and CAT scans. There was cardiomegaly, increased interstitium, basilar bronchiectasis, there was basilar inflammatory change as noted on previous exams, possible scarring. Doubt pneumonia. On today's chest x-ray there is COPD was stable bibasilar subsegmental consolidation greater on the right. There is vague nodularity in the right upper lobe. Coarsened interstitium with chronic interstitial lung disease which appears to be stable, and mild underlying venous congestion noted. Lab work showed WBC of 12.3, hemoglobin of 9.2, d-dimer was 0.60, V1 was 20, creatinine is 1.25. ProBNP was 4890, troponin was 0.025. Patient was started on IV Levaquin, Symbicort, DuoNeb. On today's evaluation patient is sitting up on the edge of the bed, calm and comfortable, she is on room air with a pulse ox of 98%. She is afebrile, hemodynamically stable. Lung sounds are negative for any wheezes, diminished air entry noted bilaterally, there are some coarse rales in the left lower lobe, and a few rales in the right base. No bilateral extremity edema noted. Review of Systems All systems: negative Constitutional: Denies chills, Denies fever Eyes: denies blurred vision, denies pain Ears, nose, mouth and throat: Denies headache, Denies sore throat Cardiovascular: Denies chest pain, Denies shortness of breath Respiratory: Reports congestion, Reports cough with sputum, Reports respiratory infections, Denies cough Gastrointestinal: Denies abdominal pain, Denies diarrhea, Denies nausea, Denies vomiting Genitourinary: Denies dysuria, Denies hematuria Musculoskeletal: Denies myalgias Integumentary: Denies pruritus, Denies rash Neurological: Denies numbness, Denies weakness Psychiatric: Denies anxiety, Denies depression Endocrine: Denies fatigue, Denies weight change Past Medical History Past Medical History: Coronary Artery Disease (CAD), Chest Pain / Angina, COPD, CVA/TIA, Diabetes Mellitus, GERD/Reflux, Hearing Disorder / Deafness, Hyperlipidemia, Hypertension, Myocardial Infarction (IA), Osteoarthritis (OA), Pneumonia Additional Past Medical History / Comment(s): anemia, eczema, constipation, TIA X 3, esophageal dilation due to issues swallowing Last Myocardial Infarction Date:: 1998, 09/21/17 History of Any Multi-Drug Resistant Organisms: VRE Date of last positivie culture/infection: 10/07/17 MDRO Source:: VRE URINE Past Surgical History: Cholecystectomy, Heart Catheterization With Stent Additional Past Surgical History / Comment(s): cataracts w/ lens implants, 2 ovary removed, heart caths :04/30/96 stent to rca, 03/18/2000 stent to mid rca, stent to lad Past Anesthesia/Blood Transfusion Reactions: Previous Problems w/ Anesthesia Additional Past Anesthesia/Blood Transfusion Reaction / Comment(s): difficulty breathing after anesthesia Date of Last Stent Placement:: 06/2017 Smoking Status: Former smoker - Past Family History Father History Unknown: Yes Family Medical History: Myocardial Infarction (IA) Mother History Unknown: Yes Family Medical History: Myocardial Infarction (IA) Additional Family Medical History / Comment(s): Mother of a IA at about age 80yrs. Medications and Allergies Home Medications Medication Instructions Recorded Confirmed Type HYDROcodone/APAP 5-325MG [[place] 1 tab PO TID PRN 02/02/14 12/11/17 History 5-325] Omeprazole [PriLOSEC] 20 mg PO AC-BRKFST 02/02/14 12/11/17 History amLODIPine BESYLATE [Norvasc] 5 mg PO HS 02/02/14 12/11/17 History metFORMIN HCL [Glucophage] 500 mg PO AC-BID 02/02/14 12/11/17 History Insulin Detemir [Levemir Flextouch] 8 units SQ DAILY@1430 05/31/15 12/11/17 History Ipratropium-Albuterol Nebulize 3 ml INHALATION RT-QID PRN 08/20/16 12/11/17 History [Duoneb 0.5 mg-3 mg/3 ml Soln] Linagliptin [Tradjenta] 5 mg PO DAILY 05/17/17 12/11/17 History Montelukast [Singulair] 10 mg PO DAILY 05/17/17 12/11/17 History Fluticasone/Salmeterol [Advair 1 puff INHALATION RT-BID 05/18/17 12/11/17 History 250-50 Diskus] Metoprolol Tartrate [Lopressor] 100 mg PO BID 07/18/17 12/11/17 History Sennosides [Senna] 12.9 mg PO HS 07/18/17 12/11/17 History Atorvastatin [Lipitor] 40 mg PO HS #30 tab 07/23/17 12/11/17 Rx Nitroglycerin Sl Tabs [Nitrostat] 0.4 mg SUBLINGUAL Q5M PRN #25 tab 07/23/17 Rx Isosorbide Mononitrate ER [Imdur] 30 mg PO DAILY #30 tab.er.24h 09/23/17 Rx Acetaminophen Tab [Tylenol] 325 mg PO Q6HR PRN tab 10/02/17 12/11/17 Rx Oxazepam [Serax] 15 mg PO BID #60 capsule 10/02/17 12/11/17 Rx Azithromycin [Zithromax Z-pack] See Taper PO DIRECTED 12/11/17 12/11/17 History Clopidogrel [Plavix] 75 mg PO DAILY@1500 12/11/17 12/11/17 History Rivaroxaban [Xarelto] 15 mg PO DAILY@1900 12/11/17 12/11/17 History Allergies Allergy/AdvReac Type Severity Reaction Status Date / Time amoxicillin trihydrate Allergy Unknown Verified 12/11/17 10:21 [From Augmentin] clindamycin HCl Allergy Unknown Verified 12/11/17 10:21 [From Cleocin] clindamycin palmitate HCl Allergy Unknown Verified 12/11/17 10:21 [From Cleocin] clindamycin phosphate Allergy Unknown Verified 12/11/17 10:21 [From Cleocin] codeine Allergy Unknown Verified 12/11/17 10:21 lorazepam [From Ativan] Allergy Confusion Verified 12/11/17 14:06 nitrofurantoin Allergy Unknown Verified 12/11/17 10:21 [From Macrobid] nitrofurantoin Allergy Unknown Verified 12/11/17 10:21 macrocrystalline [From Macrobid] Penicillins Allergy Unknown Verified 12/11/17 10:21 potassium clavulanate Allergy Unknown Verified 12/11/17 10:21 [From Augmentin] prednisone Allergy Unknown Verified 12/11/17 10:21 quinine Allergy Unknown Verified 12/11/17 10:21 Sulfa (Sulfonamide Allergy Unknown Verified 12/11/17 10:21 Antibiotics) sulfamethoxazole Allergy Unknown Verified 12/11/17 10:21 [From Bactrim] trimethoprim [From Bactrim] Allergy Unknown Verified 12/11/17 10:21 Physical Exam Vitals: Vital Signs Temp Pulse Pulse Resp BP BP Pulse Ox 12/12/17 11:17 83 12/12/17 11:07 83 12/12/17 10:03 70 16 12/12/17 07:31 84 12/12/17 07:21 84 16 12/12/17 07:00 98.4 F 70 16 142/64 98 12/11/17 23:00 98.1 F 91 16 119/69 99 12/11/17 20:48 89 134/70 12/11/17 19:00 82 12/11/17 18:44 80 12/11/17 16:38 80 12/11/17 16:30 78 12/11/17 16:17 97.1 F L 76 18 133/99 98 12/11/17 15:46 98.5 F 85 18 133/80 997 H 12/11/17 14:15 97.4 F L 80 18 133/65 97 Intake and Output 12/11/17 12/12/17 12/12/17 22:59 06:59 14:59 Other: Voiding Method Toilet Toilet Toilet # Voids 1 1 GENERAL EXAM: Alert, active, comfortable in no apparent distress. HEAD: Normocephalic/atraumatic. EYES: Normal reaction of pupils, equal size. Conjunctiva pink, sclera white. NOSE: Clear with pink turbinates. THROAT: No erythema or exudates. NECK: No masses, no JVD, no thyroid enlargement, no adenopathy. CHEST: No chest wall deformity. Symmetrical expansion. LUNGS: Diminished lung sounds bilaterally, with coarse bibasilar crackles, greater on the left CVS: Regular rate and rhythm, normal S1 and S2, no gallops, no murmurs, no rubs ABDOMEN: Soft, nontender. No hepatosplenomegaly, normal bowel sounds, no guarding or rigidity. EXTREMITIES: No clubbing, no edema, no cyanosis, 2+ pulses and upper and lower extremities. MUSCULOSKELETAL: Muscle strength and tone normal. SPINE: No scoliosis or deformity SKIN: No rashes CENTRAL NERVOUS SYSTEM: Alert and oriented -3. No focal deficits, tone is normal in all 4 extremities. PSYCHIATRIC: Alert and oriented -3. Appropriate affect. Intact judgment and insight. Results - Laboratory Findings CBC and BMP: 12/11/17 11:15 12/11/17 11:15 PT/INR, D-dimer PT 10.3 sec (9.0-12.0) 12/11/17 11:15 INR 1.1 (<1.2) 12/11/17 11:15 D-Dimer 0.60 mg/L FEU (<0.60) H 12/11/17 11:15 Abnormal lab findings: Abnormal Labs 12/11/17 12/11/17 12/11/17 11:15 11:15 11:15 WBC 12.3 H RBC 3.77 L Hgb 9.2 L Hct 29.4 L MCV 77.8 L MCH 24.5 L RDW 16.6 H Plt Count 467 H Neutrophils # 9.6 H D-Dimer 0.60 H BUN 20 H Creatinine 1.25 H Glucose 118 H POC Glucose (mg/dL) Albumin 3.1 L 12/11/17 12/11/17 12/12/17 17:14 20:26 07:19 WBC RBC Hgb Hct MCV MCH RDW Plt Count Neutrophils # D-Dimer BUN Creatinine Glucose POC Glucose (mg/dL) 170 H 116 H 102 H Albumin - Diagnostic Findings Chest x-ray: report reviewed Additional studies: EKG reviewed Assessment and Plan Plan: Assessment: #1. Acute COPD exacerbation with purulent tracheobronchitis. Chest x-ray showed chronic changes of basilar inflammatory changes, bronchiectasis, cardiomegaly. Doubt pneumonia #2. Chronic diastolic congestive heart failure #3. COPD, with FEV1 of 68% of predicted, GOLD stage II #4. 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 Paroxysmal atrial fibrillation, currently in sinus rhythm, on chronic anticoagulation with Xarelto #6. Coronary artery disease, with prior stenting of the RCA and the LAD #7. Diabetes mellitus #8. Hypertension, hyperlipidemia #9. Chronic anemia #10. Chronic kidney disease Plan: Patient's chest x-ray has been reviewed, the bibasilar changes seen on the chest x-ray are chronic in nature, patient has a history of interstitial lung disease postinflammatory in nature with scarring in bilateral bases, greater on the right. Clinically patient looks very comfortable, does have an intermittent cough, with production of yellow sputum. Patient will be treated for COPD exacerbation with tracheobronchitis. Continue Levaquin, patient cannot take steroids, as it's listed as one of her ALLERGIES. No wheezing was noted. Patient is afebrile, she is on room air. Continue Symbicort, and continue DuoNeb. I performed a history & physical examination of the patient and discussed their management with my nurse practitioner, Josephine Winkler. I reviewed the nurse practitioner's note and agree with the documented findings and plan of care. Lung sounds are positive for bi-basilar crackles. The findings and the impression was discussed with the patient. I attest to the documentation by the nurse practitioner. Time with Patient: Greater than 30
[2017-12-12] MEDS ORDERED: INSULIN DETEMIR 100 UNIT/ML 10 ML VIAL SQ SCH (14:30)
[2017-12-12 14:34] LABS: Hemoglobin A1C 6.5 % (4.0-6.0)
[2017-12-12] MEDS ORDERED: CLOPIDOGREL 75 MG TAB PO SCH (15:00)
[2017-12-12] MEDS ORDERED: LEVOFLOXACIN 750MG-D5W PMX 750 MG in DEXTROSE/WATER 1 150ML.BAG IVPB SCH (16:00)
[2017-12-12 17:43] LABS: Glucose,Whole Blood 94 mg/dL (75-99)
[2017-12-12] MEDS: RIVAROXABAN 15 MG TAB PO SCH (20:10)
[2017-12-12 20:12] LABS: Glucose,Whole Blood 157 mg/dL (75-99)
[2017-12-12] MEDS: ATORVASTATIN 40 MG TAB PO SCH (21:05)
[2017-12-12] MEDS: amLODIPine 5 MG TAB PO SCH (21:05)
[2017-12-12] MEDS: SENNOSIDES 8.6 MG TAB PO SCH (21:06)
[2017-12-12] MEDS: HYDROcodone/APAP 5-325MG 1 EACH TAB PO PRN (21:07)
[2017-12-12] MEDS: ALPRAZolam 0.5 MG TAB PO PRN (22:04)
[2017-12-13 07:17] LABS: Glucose,Whole Blood 91 mg/dL (75-99)
[2017-12-13] MEDS: ISOSORBIDE MONONITRATE ER 30 MG TAB.ER.24H PO SCH (08:05)
[2017-12-13] MEDS: MONTELUKAST 10 MG TAB PO SCH (08:05)
[2017-12-13] MEDS: PANTOPRAZOLE 40 MG TABLET PO SCH (08:05)
[2017-12-13] MEDS: METOPROLOL TARTRATE 50 MG TAB PO SCH (08:05)
[2017-12-13] MEDS: metFORMIN 500 MG TAB PO SCH (08:05)
[2017-12-13 08:11] LABS: Anisocytosis Slight; HCT 29.3 % (34.0-46.0); HGB 9.1 gm/dL (11.4-16.0); Hypochromasia Moderate; MCH 24.6 pg (25.0-35.0); MCV 79.4 fL (80.0-100.0); Mean Platelet Volume 6.5; Platelet Count 479 k/uL (150-450); RBC 3.69 m/uL (3.80-5.40); RDW 16.6 % (11.5-15.5); WBC 7.9 k/uL (3.8-10.6)
[2017-12-13 08:19] LABS: Albumin 2.9 g/dL (3.5-5.0); Calcium 9.4 mg/dL (8.4-10.2); Potassium 4.1 mmol/L (3.5-5.1); Total Bilirubin 0.3 mg/dL (0.2-1.3); Total Protein 6.1 g/dL (6.3-8.2)
[2017-12-13] MEDS: SYMBICORT 80-4.5 MCG INHALER INHALATION SCH (08:20)
[2017-12-13] MEDS: IPRATROPIUM-ALBUTEROL 3 ML NEB INHALATION SCH ×2 (08:20→12:10)
[2017-12-13 08:38] VITALS: BP 144/73; RESP 18; TEMP 98.3
--- NOTE | 2017-12-13 11:33 | P.DS ---
Providers Date of admission: 12/11/17 13:35 Attending physician: Georgi Thayer Consults: 12/11/17 13:35 Consult Physician Routine Consulting Provider: Blue Alba Consult Reason/Comments: Pneumonia, dyspnea Do you want consulting provider notified?: Yes Primary care physician: Georgi Thayer [facility] Course: 87-year-old pleasant female admitted for treatment of bronchitis and the COPD exacerbation patient the and had ALLERGIC reaction to prednisone because of which pulmonology is not recommending any steroids at this time patient will be discharged on 5 days of levofloxacin. Patient's blood sugars are low. Patient' s creatinine is 1.39 because of which patient cannot take metformin that will be discontinued and do not believe patient will require long-acting insulin either high-dose Solu-Medrol patient blood sugars remained on the low normal side because of which she may not require long-acting insulin either. Although Linagliptan will be continued. PHYSICAL EXAMINATION: GENERAL: The patient is alert and oriented x3, not in any acute distress. Well developed, well nourished. HEENT: Pupils are round and equally reacting to light. EOMI. No scleral icterus. No conjunctival pallor. Normocephalic, atraumatic. No pharyngeal erythema. No thyromegaly. CARDIOVASCULAR: S1 and S2 present. No murmurs, rubs, or gallops. PULMONARY: Chest is clear to auscultation, no wheezing or crackles. ABDOMEN: Soft, nontender, nondistended, normoactive bowel sounds. No palpable organomegaly. MUSCULOSKELETAL: No joint swelling or deformity. EXTREMITIES: No cyanosis, clubbing, or pedal edema. NEUROLOGICAL: Gross neurological examination did not reveal any focal deficits. SKIN: No rashes. The rest rest of the other chronic medical issues hospitalization course please refer to Dr. Thayer's dictation from yesterday Plan - Discharge Summary Discharge Rx Participant: No New Discharge Prescriptions: New Levofloxacin [Levaquin] 500 mg PO DAILY #5 tab Discontinued metFORMIN HCL [Glucophage] 500 mg PO AC-BID Insulin Detemir [Levemir Flextouch] 8 units SQ DAILY@1430 No Action amLODIPine BESYLATE [Norvasc] 5 mg PO HS Omeprazole [PriLOSEC] 20 mg PO AC-BRKFST HYDROcodone/APAP 5-325MG [[place] 5-325] 1 tab PO TID PRN PRN Reason: Pain Ipratropium-Albuterol Nebulize [Duoneb 0.5 mg-3 mg/3 ml Soln] 3 ml INHALATION RT-QID PRN PRN Reason: Shortness Of Breath Linagliptin [Tradjenta] 5 mg PO DAILY Montelukast [Singulair] 10 mg PO DAILY Fluticasone/Salmeterol [Advair 250-50 Diskus] 1 puff INHALATION RT-BID Metoprolol Tartrate [Lopressor] 100 mg PO BID Sennosides [Senna] 12.9 mg PO HS Atorvastatin [Lipitor] 40 mg PO HS #30 tab Nitroglycerin Sl Tabs [Nitrostat] 0.4 mg SUBLINGUAL Q5M PRN #25 tab PRN Reason: Chest Pain Isosorbide Mononitrate ER [Imdur] 30 mg PO DAILY #30 tab.er.24h Acetaminophen Tab [Tylenol] 325 mg PO Q6HR PRN tab PRN Reason: Fever and/ or Mild Pain Oxazepam [Serax] 15 mg PO BID #60 capsule Azithromycin [Zithromax Z-pack] See Taper PO DIRECTED Clopidogrel [Plavix] 75 mg PO DAILY@1500 Rivaroxaban [Xarelto] 15 mg PO DAILY@1900 Discharge Medication List HYDROcodone/APAP 5-325MG [[place] 5-325] 1 tab PO TID PRN 02/02/14 [History] Omeprazole [PriLOSEC] 20 mg PO AC-BRKFST 02/02/14 [History] amLODIPine BESYLATE [Norvasc] 5 mg PO HS 02/02/14 [History] Ipratropium-Albuterol Nebulize [Duoneb 0.5 mg-3 mg/3 ml Soln] 3 ml INHALATION RT -QID PRN 08/20/16 [History] Linagliptin [Tradjenta] 5 mg PO DAILY 05/17/17 [History] Montelukast [Singulair] 10 mg PO DAILY 05/17/17 [History] Fluticasone/Salmeterol [Advair 250-50 Diskus] 1 puff INHALATION RT-BID 05/18/17 [History] Metoprolol Tartrate [Lopressor] 100 mg PO BID 07/18/17 [History] Sennosides [Senna] 12.9 mg PO HS 07/18/17 [History] Atorvastatin [Lipitor] 40 mg PO HS #30 tab 07/23/17 [Rx] Nitroglycerin Sl Tabs [Nitrostat] 0.4 mg SUBLINGUAL Q5M PRN #25 tab 07/23/17 [Rx ] Isosorbide Mononitrate ER [Imdur] 30 mg PO DAILY #30 tab.er.24h 09/23/17 [Rx] Acetaminophen Tab [Tylenol] 325 mg PO Q6HR PRN tab 10/02/17 [Rx] Oxazepam [Serax] 15 mg PO BID #60 capsule 10/02/17 [Rx] Azithromycin [Zithromax Z-pack] See Taper PO DIRECTED 12/11/17 [History] Clopidogrel [Plavix] 75 mg PO DAILY@1500 12/11/17 [History] Rivaroxaban [Xarelto] 15 mg PO DAILY@1900 12/11/17 [History] Levofloxacin [Levaquin] 500 mg PO DAILY #5 tab 12/13/17 [Rx] Follow up Appointment(s)/Referral(s): Georgi Thayer MD [Primary Care Provider] - 3 Days Discharge Disposition: HOME SELF-CARE
[2017-12-13 11:48] LABS: Glucose,Whole Blood 100 mg/dL (75-99)
[2017-12-13 12:27] VITALS: PULSE 76
--- NOTE | 2017-12-13 12:36 | P.PN ---
Subjective Progress Note Date: 12/13/17 Principal diagnosis: Acute exacerbation of chronic obstructive pulmonary disease, complicated by acute tracheobronchitisJuan Alberto Pruitt is a 87-year-old white female patient of Dr. Thayer, who presented to the hospital on 12/11/2017 at 0953 complaining of increasing dyspnea, chest heaviness, chest wall soreness from coughing, cough with production of yellow sputum, chest congestion, fatigue. She states she had a heart attack on , was hospitalized, had a stent placement. She then developed pneumonia 2 days after that. She was hospitalized for about a week then, and subsequently was discharged to rehab. She has been out of rehab for approximately a month, and is currently living in an [facility] [place]. She states she's had the chills, but this is chronic for her since she started blood thinners. Patient is on Xarelto for her history of paroxysmal atrial fibrillation, Aspirin and Plavix. She states Dr. Thayer had given her prescription for Zithromax a while ago and she started taking it 3 days ago for her symptoms of chest congestion, coughing , and dyspnea. However her symptoms persisted and patient came in for evaluation. Patient has an underlying history of COPD, not oxygen or prednisone dependent, sees Dr. Prado in our office. Her maintenance in inhalers include Advair, and updrafts. Chest x-ray from 12/11/2017 show chronic bibasilar inflammatory changes, greater on the right, this was compared to prior chest x-rays and CAT scans. There was cardiomegaly, increased interstitium, basilar bronchiectasis, there was basilar inflammatory change as noted on previous exams, possible scarring. Doubt pneumonia. On today's chest x-ray there is COPD was stable bibasilar subsegmental consolidation greater on the right. There is vague nodularity in the right upper lobe. Coarsened interstitium with chronic interstitial lung disease which appears to be stable, and mild underlying venous congestion noted. Lab work showed WBC of 12.3, hemoglobin of 9.2, d-dimer was 0.60, V1 was 20, creatinine is 1.25. ProBNP was 4890, troponin was 0.025. Patient was started on IV Levaquin, Symbicort, DuoNeb. On today's evaluation patient is sitting up on the edge of the bed, calm and comfortable, she is on room air with a pulse ox of 98%. She is afebrile, hemodynamically stable. Lung sounds are negative for any wheezes, diminished air entry noted bilaterally, there are some coarse rales in the left lower lobe, and a few rales in the right base. No bilateral extremity edema noted. The patient is seen again today 12/13/2017 in follow-up on the regular medical floor. She is currently sitting up in a chair at the bedside. She is awake and alert in no acute distress. She is breathing quite a bit easier today as compared to yesterday. She denies any chest pain, palpitations lightheadedness or dizziness. She is maintaining good O2 saturations in the upper 90s on room air. She's been afebrile. Hemodynamically stable. Blood and sputum cultures reveal no growth to date. White count 7.9. Hemoglobin 9.1. Creatinine 1.39. She is maintained on DuoNeb inhalations, Symbicort, Singulair. She is on antibiotics in the form of Levaquin. Objective - Vital Signs Vital signs: Vital Signs Temp 98.3 F 12/13/17 08:38 Pulse 76 12/13/17 12:26 Resp 18 12/13/17 08:38 BP 144/73 12/13/17 08:38 Pulse Ox 98 12/13/17 08:38 Intake & Output 12/12/17 12/13/17 12/13/17 18:59 06:59 18:59 Intake Total 590 240 Balance 590 240 Intake: Oral 590 240 Other: Voiding Method Toilet Toilet Toilet # Voids 3 1 1 - Exam GENERAL EXAM: Alert, active, comfortable in no apparent distress. HEAD: Normocephalic. EYES: Normal reaction of pupils, equal size. NOSE: Clear with pink turbinates. THROAT: No erythema or exudates. NECK: No masses, no JVD. CHEST: No chest wall deformity. LUNGS: Equal air entry with faint end expiratory wheeze. Few scattered crackles. CVS: S1 and S2 normal with no audible murmur, regular rhythm. ABDOMEN: No hepatosplenomegaly, normal bowel sounds, no guarding or rigidity. SPINE: No scoliosis or deformity SKIN: No rashes CENTRAL NERVOUS SYSTEM: No focal deficits, tone is normal in all 4 extremities. EXTREMITIES: There is no peripheral edema. No clubbing, no cyanosis. Peripheral pulses are intact. - Labs CBC & Chem 7: 12/13/17 07:10 12/13/17 07:10 Labs: Abnormal Lab Results - Last 24 Hours (Table) 12/11/17 12/12/17 12/13/17 Range/Units 11:15 20:11 07:10 RBC 3.69 L (3.80-5.40) m/uL Hgb 9.1 L (11.4-16.0) gm/dL Hct 29.3 L (34.0-46.0) % MCV 79.4 L (80.0-100.0) fL MCH 24.6 L (25.0-35.0) pg RDW 16.6 H (11.5-15.5) % Plt Count 479 H (150-450) k/uL BUN (7-17) mg/dL Creatinine (0.52-1.04) mg/dL POC Glucose (mg/dL) 157 H (75-99) mg/dL Hemoglobin A1c 6.5 H (4.0-6.0) % Total Protein (6.3-8.2) g/dL Albumin (3.5-5.0) g/dL 12/13/17 12/13/17 Range/Units 07:10 11:42 RBC (3.80-5.40) m/uL Hgb (11.4-16.0) gm/dL Hct (34.0-46.0) % MCV (80.0-100.0) fL MCH (25.0-35.0) pg RDW (11.5-15.5) % Plt Count (150-450) k/uL BUN 19 H (7-17) mg/dL Creatinine 1.39 H (0.52-1.04) mg/dL POC Glucose (mg/dL) 100 H (75-99) mg/dL Hemoglobin A1c (4.0-6.0) % Total Protein 6.1 L (6.3-8.2) g/dL Albumin 2.9 L (3.5-5.0) g/dL Microbiology - Last 24 Hours (Table) 12/12/17 10:20 Gram Stain - Preliminary Sputum 03/22/18 10:50 Blood Culture - Preliminary Blood No Growth after 24 hours Assessment and Plan Assessment: Assessment: #1. Acute COPD exacerbation with purulent tracheobronchitis. Chest x-ray showed chronic changes of basilar inflammatory changes, bronchiectasis, cardiomegaly. Doubt pneumonia #2. Chronic diastolic congestive heart failure #3. COPD, with FEV1 of 68% of predicted, GOLD stage II #4. 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 Paroxysmal atrial fibrillation, currently in sinus rhythm, on chronic anticoagulation with Xarelto #6. Coronary artery disease, with prior stenting of the RCA and the LAD #7. Diabetes mellitus #8. Hypertension, hyperlipidemia #9. Chronic anemia #10. Chronic kidney disease Plan: The patient was seen and evaluated by Dr. Alba. She is stable from the pulmonary standpoint he could be discharged home on a prednisone taper and complete her course of antibiotics. She'll follow-up in our office in 1-2 weeks ' time. She is however encouraged to call sooner with any recurrence of symptoms or other questions or concerns. I, the cosigning physician, performed a history & physical examination of the patient. Lungs sounds have faint end expiratory wheeze. Diminished. Maintaining good O2 saturations in the 90s on room air. I discussed the assessment and plan of care with my nurse practitioner, Nargis Leon. I attest to the above note as dictated by her.
== END 2017-12-13 14:35 | disposition home or self-care (01) | DRG 191 ==
LOC: EC 09:53 → 4MS4W 13:35 → 5MS5E 15:27
PROVIDERS: ADMIT Family Medicine; ATTEND Family Medicine
DX: J44.0 Chronic obstructive pulmonary disease with (acute) lower respiratory infection (principal); J84.9 Interstitial pulmonary disease, unspecified; E11.22 Type 2 diabetes mellitus with diabetic chronic kidney disease; I13.0 Hypertensive heart and chronic kidney disease with heart failure and stage 1 through stage 4 chronic kidney disease, or unspecified chronic kidney disease; I48.0 Paroxysmal atrial fibrillation; I50.32 Chronic diastolic (congestive) heart failure; J44.1 Chronic obstructive pulmonary disease with (acute) exacerbation; D64.9 Anemia, unspecified; E78.5 Hyperlipidemia, unspecified; H91.90 Unspecified hearing loss, unspecified ear; I25.10 Atherosclerotic heart disease of native coronary artery without angina pectoris; I25.2 Old myocardial infarction; I44.7 Left bundle-branch block, unspecified; J20.9 Acute bronchitis, unspecified; K21.9 Gastro-esophageal reflux disease without esophagitis; N18.9 Chronic kidney disease, unspecified; Z79.01 Long term (current) use of anticoagulants; Z79.02 Long term (current) use of antithrombotics/antiplatelets; Z79.4 Long term (current) use of insulin; Z79.899 Other long term (current) drug therapy; Z82.49 Family history of ischemic heart disease and other diseases of the circulatory system; Z86.73 Personal history of transient ischemic attack (TIA), and cerebral infarction without residual deficits; Z87.01 Personal history of pneumonia (recurrent); Z87.891 Personal history of nicotine dependence; Z96.1 Presence of intraocular lens; Z88.1 Allergy status to other antibiotic agents; Z88.5 Allergy status to narcotic agent; Z88.2 Allergy status to sulfonamides; Z88.8 Allergy status to other drugs, medicaments and biological substances; Z98.42 Cataract extraction status, left eye; Z98.41 Cataract extraction status, right eye; Z95.5 Presence of coronary angioplasty implant and graft
CPT/HCPCS: 36415; 71046; 80048; 80053; 81001; 82306; 82550; 82553; 82728; 83036; 83540; 83550; 83735; 83880; 83970; 84100; 84484; 84550; 85025; 85027; 85379; 85610; 85730; 87040; 87070; 87205; 93005; 94640; 96365; 99285

== ENCOUNTER 2018-03-01 20:35 | Emergency (ER) | payer MEDICARE ==
[2018-03-01 20:59] VITALS: RESP 18
[2018-03-01] MEDS ORDERED: SODIUM CHLORIDE 0.9% 1,000 ML IV STA (21:18)
[2018-03-01] MEDS ORDERED: IPRATROPIUM-ALBUTEROL 3 ML NEB INHALATION STA (21:18)
[2018-03-01 21:48] LABS: Anisocytosis Slight; Basophils % (A) 0 %; Eosinophils # (A) 0.4 k/uL (0-0.7); Eosinophils % (A) 4 %; HCT 34.6 % (34.0-46.0); HGB 10.9 gm/dL (11.4-16.0); Lymphocytes # (A) 2.5 k/uL (1.0-4.8); Lymphocytes % (A) 25 %; MCH 26.2 pg (25.0-35.0); MCHC 31.4 g/dL (31.0-37.0); MCV 83.5 fL (80.0-100.0); Mean Platelet Volume 6.5; Monocytes # (A) 0.7 k/uL (0-1.0); Monocytes % (A) 6 %; Neutrophils # (A) 6.4 k/uL (1.3-7.7); Neutrophils % (A) 63 %; Platelet Count 342 k/uL (150-450); RBC 4.15 m/uL (3.80-5.40); WBC 10.2 k/uL (3.8-10.6)
[2018-03-01] MEDS ORDERED: ACETAMINOPHEN IV (For NPO) 1,000 MG in EMPTY BAG 1 BAG IVPB STA (21:49)
--- NOTE | 2018-03-01 21:53 | XR ---
EXAMINATION TYPE: XR chest 2V DATE OF EXAM: 03/01/2018 COMPARISON: 12/12/2017 HISTORY: Shortness of breath TECHNIQUE: Frontal and lateral views of the chest are obtained. FINDINGS: There is redemonstration of bibasilar opacities although not appreciated on the lateral im age that are similar in comparison to the prior of 12/12/2017 favored to represent chronic bibasilar a telectasis. Findings are superimposed upon emphysematous changes with pulmonary hyperinflation and bi apical lucency. Cardiomediastinal silhouette is mildly enlarged. There is extensive vascular atherosc lerosis. Exaggerated thoracic kyphosis and osseous demineralization are noted. Cholecystectomy clips are present. IMPRESSION: Chronic unchanged bibasilar opacities in comparison to exam of 12/12/2017 and favored to represent chronic atelectasis superimposed upon COPD. No new focal consolidation.
[2018-03-01 21:55] LABS: Albumin 4.1 g/dL (3.5-5.0); Calcium 9.4 mg/dL (8.4-10.2); Magnesium 1.9 mg/dL (1.6-2.3); Potassium 4.6 mmol/L (3.5-5.1); Total Bilirubin 0.2 mg/dL (0.2-1.3); Total Protein 7.3 g/dL (6.3-8.2)
[2018-03-01 22:02] LABS: D-Dimer 0.33 mg/L FEU (<0.60); INR 1.2 (<1.2); Partial Thromboplastin Time 31.3 sec (22.0-30.0); Prothrombin Time 11.2 sec (9.0-12.0)
[2018-03-01 22:08] LABS: Creatine Kinase 85 U/L (30-135)
[2018-03-01 22:20] LABS: Troponin I <0.012 ng/mL (0.000-0.034)
[2018-03-01] MEDS ORDERED: DEXAMETHASONE SOD PHOSPHATE 10 MG/ML 1 ML VIAL IV STA (22:45)
--- NOTE | 2018-03-01 23:03 | ED ---
General Adult HPI - General Chief complaint: Upper Respiratory Infection Stated complaint: chest congestion, cough Time Seen by Provider: 03/01/18 21:16 Source: patient, RN notes reviewed, old records reviewed Mode of arrival: wheelchair Limitations: no limitations - History of Present Illness Initial comments: This is an 87-year-old female the ER for evaluation. Patient comes in for cough and congestion. Patient states mild shortness of breath no chest pain. Patient has a long calm. Medical history. Patient states symptoms for 1-2 days no fevers. She is coughing up increased sputum. Again denies chest pain no real shortness of breath with exertion. No modifying factors for symptoms currently. Mild improvement with breathing treatments but no significant resolution. - Related Data Home Medications Medication Instructions Recorded Confirmed HYDROcodone/APAP 5-325MG [[place] 1 tab PO TID PRN 02/02/14 12/30/17 5-325] Omeprazole [PriLOSEC] 20 mg PO AC-BRKFST 02/02/14 12/30/17 amLODIPine BESYLATE [Norvasc] 5 mg PO HS 02/02/14 12/30/17 Ipratropium-Albuterol Nebulize 3 ml INHALATION RT-QID PRN 08/20/16 12/30/17 [Duoneb 0.5 mg-3 mg/3 ml Soln] Linagliptin [Tradjenta] 5 mg PO DAILY 05/17/17 12/30/17 Montelukast [Singulair] 10 mg PO DAILY 05/17/17 12/30/17 Fluticasone/Salmeterol [Advair 1 puff INHALATION RT-BID 05/18/17 12/30/17 250-50 Diskus] Metoprolol Tartrate [Lopressor] 100 mg PO BID 07/18/17 12/30/17 Sennosides [Senna] 12.9 mg PO HS 07/18/17 12/30/17 Azithromycin [Zithromax Z-pack] See Taper PO DIRECTED 12/11/17 12/30/17 Clopidogrel [Plavix] 75 mg PO DAILY@1500 12/11/17 12/30/17 Rivaroxaban [Xarelto] 15 mg PO DAILY@1900 12/11/17 12/30/17 Previous Rx's Medication Instructions Recorded Atorvastatin [Lipitor] 40 mg PO HS #30 tab 07/23/17 Nitroglycerin Sl Tabs [Nitrostat] 0.4 mg SUBLINGUAL Q5M PRN #25 tab 07/23/17 Isosorbide Mononitrate ER [Imdur] 30 mg PO DAILY #30 tab.er.24h 09/23/17 Acetaminophen Tab [Tylenol] 325 mg PO Q6HR PRN tab 10/02/17 Oxazepam [Serax] 15 mg PO BID #60 capsule 10/02/17 Levofloxacin [Levaquin] 500 mg PO DAILY #5 tab 12/13/17 Albuterol Nebulized [Ventolin 2.5 mg INHALATION Q4H PRN #25 nebu 03/01/18 Nebulized] Doxycycline Monohydrate [Monodox] 100 mg PO Q12HR #20 cap 03/01/18 Naproxen 250 mg PO BID #20 tablet 03/01/18 Allergies Allergy/AdvReac Type Severity Reaction Status Date / Time amoxicillin trihydrate Allergy Unknown Verified 03/01/18 20:59 [From Augmentin] clindamycin HCl Allergy Unknown Verified 03/01/18 20:59 [From Cleocin] clindamycin palmitate HCl Allergy Unknown Verified 03/01/18 20:59 [From Cleocin] clindamycin phosphate Allergy Unknown Verified 03/01/18 20:59 [From Cleocin] codeine Allergy Unknown Verified 03/01/18 20:59 lorazepam [From Ativan] Allergy Confusion Verified 03/01/18 20:59 nitrofurantoin Allergy Unknown Verified 03/01/18 20:59 [From Macrobid] nitrofurantoin Allergy Unknown Verified 03/01/18 20:59 macrocrystalline [From Macrobid] Penicillins Allergy Unknown Verified 03/01/18 20:59 potassium clavulanate Allergy Unknown Verified 03/01/18 20:59 [From Augmentin] prednisone Allergy Unknown Verified 03/01/18 20:59 quinine Allergy Unknown Verified 03/01/18 20:59 Sulfa (Sulfonamide Allergy Unknown Verified 03/01/18 20:59 Antibiotics) sulfamethoxazole Allergy Unknown Verified 03/01/18 20:59 [From Bactrim] trimethoprim [From Bactrim] Allergy Unknown Verified 03/01/18 20:59 Review of Systems ROS Statement: Those systems with pertinent positive or pertinent negative responses have been documented in the HPI. ROS Other: All systems not noted in ROS Statement are negative. Past Medical History Past Medical History: Coronary Artery Disease (CAD), Chest Pain / Angina, COPD, CVA/TIA, Diabetes Mellitus, GERD/Reflux, Hearing Disorder / Deafness, Hyperlipidemia, Hypertension, Myocardial Infarction ([place]), Osteoarthritis (OA), Pneumonia Additional Past Medical History / Comment(s): anemia, eczema, constipation, TIA X 3, esophageal dilation due to issues swallowing Last Myocardial Infarction Date:: 1998, 09/21/17 History of Any Multi-Drug Resistant Organisms: VRE Date of last positivie culture/infection: 10/07/17 MDRO Source:: VRE URINE Past Surgical History: Cholecystectomy, Heart Catheterization With Stent Additional Past Surgical History / Comment(s): cataracts w/ lens implants, 2 ovary removed, heart caths :04/30/96 stent to rca, 03/18/2000 stent to mid rca, stent to lad Past Anesthesia/Blood Transfusion Reactions: Previous Problems w/ Anesthesia Additional Past Anesthesia/Blood Transfusion Reaction / Comment(s): difficulty breathing after anesthesia Date of Last Stent Placement:: 06/2017 Past Psychological History: Depression Smoking Status: Former smoker Past Alcohol Use History: None Reported Past Drug Use History: None Reported - Past Family History Father History Unknown: Yes Family Medical History: Myocardial Infarction ([place]) Mother History Unknown: Yes Family Medical History: Myocardial Infarction ([place]) Additional Family Medical History / Comment(s): Mother of a [place] at about age 80yrs. General Exam Limitations: no limitations General appearance: alert, in no apparent distress Head exam: Present: atraumatic, normocephalic, normal inspection Eye exam: Present: normal appearance, PERRL, EOMI. Absent: scleral icterus, conjunctival injection, periorbital swelling ENT exam: Present: normal exam, mucous membranes moist Neck exam: Present: normal inspection. Absent: tenderness, meningismus, lymphadenopathy Respiratory exam: Present: normal lung sounds bilaterally, wheezes, decreased breath sounds. Absent: respiratory distress, rales, rhonchi, stridor Cardiovascular Exam: Present: regular rate, normal rhythm, normal heart sounds. Absent: systolic murmur, diastolic murmur, rubs, gallop, clicks GI/Abdominal exam: Present: soft, normal bowel sounds. Absent: distended, tenderness, guarding, rebound, rigid Extremities exam: Present: normal inspection, full ROM, normal capillary refill. Absent: tenderness, pedal edema, joint swelling, calf tenderness Back exam: Present: normal inspection Neurological exam: Present: alert, oriented X3, CN II-XII intact Psychiatric exam: Present: normal affect, normal mood Skin exam: Present: warm, dry, intact, normal color. Absent: rash Course Vital Signs 03/01/18 03/01/18 03/01/18 20:57 22:01 22:24 Temperature 98.4 F Pulse Rate 80 80 84 Respiratory 18 Rate Blood Pressure 158/70 O2 Sat by Pulse 97 Oximetry 03/01/18 23:09 Temperature 97.7 F Pulse Rate 92 Respiratory 18 Rate Blood Pressure 169/74 O2 Sat by Pulse 98 Oximetry Medical Decision Making - Medical Decision Making 87 female the ER for vaginal cough congestion positive COPD exacerbation. Patient stable from her standpoint. Patient can be discharged home to continue treatment - Lab Data Result diagrams: 03/01/18 21:30 03/01/18 21:30 Lab Results 03/01/18 03/01/18 03/01/18 Range/Units 21:30 21:30 21:30 WBC (3.8-10.6) k/uL RBC (3.80-5.40) m/uL Hgb (11.4-16.0) gm/dL Hct (34.0-46.0) % MCV (80.0-100.0) fL MCH (25.0-35.0) pg MCHC (31.0-37.0) g/dL RDW (11.5-15.5) % Plt Count (150-450) k/uL Neutrophils % % Lymphocytes % % Monocytes % % Eosinophils % % Basophils % % Neutrophils # (1.3-7.7) k/uL Lymphocytes # (1.0-4.8) k/uL Monocytes # (0-1.0) k/uL Eosinophils # (0-0.7) k/uL Basophils # (0-0.2) k/uL Anisocytosis PT 11.2 (9.0-12.0) sec INR 1.2 H (<1.2) APTT 31.3 H (22.0-30.0) sec D-Dimer 0.33 (<0.60) mg/L FEU Sodium 144 (137-145) mmol/L Potassium 4.6 (3.5-5.1) mmol/L Chloride 106 (98-107) mmol/L Carbon Dioxide 24 (22-30) mmol/L Anion Gap 14 mmol/L BUN 24 H (7-17) mg/dL Creatinine 1.40 H (0.52-1.04) mg/dL Est GFR (CKD-EPI)AfAm 40 (>60 ml/min/1.73 sqM) Est GFR (CKD-EPI)NonAf 34 (>60 ml/min/1.73 sqM) Glucose 143 H (74-99) mg/dL Calcium 9.4 (8.4-10.2) mg/dL Magnesium 1.9 (1.6-2.3) mg/dL Total Bilirubin 0.2 (0.2-1.3) mg/dL AST 27 (14-36) U/L ALT 21 (9-52) U/L Alkaline Phosphatase 81 (38-126) U/L Total Creatine Kinase 85 (30-135) U/L CK-MB (CK-2) 2.0 (0.0-2.4) ng/mL CK-MB (CK-2) Rel Index 2.4 Troponin I <0.012 (0.000-0.034) ng/mL Total Protein 7.3 (6.3-8.2) g/dL Albumin 4.1 (3.5-5.0) g/dL 03/01/18 Range/Units 21:30 WBC 10.2 (3.8-10.6) k/uL RBC 4.15 (3.80-5.40) m/uL Hgb 10.9 L (11.4-16.0) gm/dL Hct 34.6 (34.0-46.0) % MCV 83.5 (80.0-100.0) fL MCH 26.2 (25.0-35.0) pg MCHC 31.4 (31.0-37.0) g/dL RDW 17.0 H (11.5-15.5) % Plt Count 342 (150-450) k/uL Neutrophils % 63 % Lymphocytes % 25 % Monocytes % 6 % Eosinophils % 4 % Basophils % 0 % Neutrophils # 6.4 (1.3-7.7) k/uL Lymphocytes # 2.5 (1.0-4.8) k/uL Monocytes # 0.7 (0-1.0) k/uL Eosinophils # 0.4 (0-0.7) k/uL Basophils # 0.0 (0-0.2) k/uL Anisocytosis Slight PT (9.0-12.0) sec INR (<1.2) APTT (22.0-30.0) sec D-Dimer (<0.60) mg/L FEU Sodium (137-145) mmol/L Potassium (3.5-5.1) mmol/L Chloride (98-107) mmol/L Carbon Dioxide (22-30) mmol/L Anion Gap mmol/L BUN (7-17) mg/dL Creatinine (0.52-1.04) mg/dL Est GFR (CKD-EPI)AfAm (>60 ml/min/1.73 sqM) Est GFR (CKD-EPI)NonAf (>60 ml/min/1.73 sqM) Glucose (74-99) mg/dL Calcium (8.4-10.2) mg/dL Magnesium (1.6-2.3) mg/dL Total Bilirubin (0.2-1.3) mg/dL AST (14-36) U/L ALT (9-52) U/L Alkaline Phosphatase (38-126) U/L Total Creatine Kinase (30-135) U/L CK-MB (CK-2) (0.0-2.4) ng/mL CK-MB (CK-2) Rel Index Troponin I (0.000-0.034) ng/mL Total Protein (6.3-8.2) g/dL Albumin (3.5-5.0) g/dL - Radiology Data Radiology results: report reviewed (Chest x-rays negative for acute disease), image reviewed Disposition Clinical Impression: COPD bronchitis Disposition: HOME SELF-CARE Condition: Good Instructions: Acute Bronchitis (ED), Chronic Bronchitis (ED) Prescriptions: Albuterol Nebulized [Ventolin Nebulized] 2.5 mg INHALATION Q4H PRN #25 nebu PRN Reason: Shortness Of Breath Doxycycline Monohydrate [Monodox] 100 mg PO Q12HR #20 cap Naproxen 250 mg PO BID #20 tablet Is patient prescribed a controlled substance at d/c from ED?: No Referrals: Georgi Thayer MD [Primary Care Provider] - 1-2 days
[2018-03-01 23:20] VITALS: BP 169/74; PULSE 92; TEMP 97.7
[2018-03-01] MEDS ORDERED: DOXYCYCLINE 50 MG CAP PO STA ×2 (23:32)
== END 2018-03-01 23:50 | disposition home or self-care (01) ==
LOC: EC 20:35
DX: J44.1 Chronic obstructive pulmonary disease with (acute) exacerbation (principal); I25.10 Atherosclerotic heart disease of native coronary artery without angina pectoris; E11.9 Type 2 diabetes mellitus without complications; K21.9 Gastro-esophageal reflux disease without esophagitis; I10 Essential (primary) hypertension; I25.2 Old myocardial infarction; Z87.891 Personal history of nicotine dependence; Z95.5 Presence of coronary angioplasty implant and graft; Z86.73 Personal history of transient ischemic attack (TIA), and cerebral infarction without residual deficits; Z79.84 Long term (current) use of oral hypoglycemic drugs; Z79.51 Long term (current) use of inhaled steroids; Z79.02 Long term (current) use of antithrombotics/antiplatelets; Z79.01 Long term (current) use of anticoagulants; Z79.899 Other long term (current) drug therapy; Z88.0 Allergy status to penicillin; Z88.1 Allergy status to other antibiotic agents; Z88.5 Allergy status to narcotic agent; Z88.8 Allergy status to other drugs, medicaments and biological substances; Z88.2 Allergy status to sulfonamides; Z53.20 Procedure and treatment not carried out because of patient's decision for unspecified reasons
CPT/HCPCS: 36415; 94640; 93005; 85379; 80053; 82550; 82553; 83735; 84484; 85025; 85610; 85730; 71046; 99284; 96374; 96361; J0131

== ENCOUNTER → 2018-05-12 | Outpatient (CLI) | payer MEDICARE ==
[2018-05-12 16:21] LABS: Basophils # (A) 0.1 k/uL (0-0.2); Basophils % (A) 1 %; Eosinophils # (A) 0.4 k/uL (0-0.7); Eosinophils % (A) 5 %; HCT 30.5 % (34.0-46.0); HGB 9.1 gm/dL (11.4-16.0); Hypochromasia Marked; Lymphocytes # (A) 2.3 k/uL (1.0-4.8); Lymphocytes % (A) 28 %; MCH 27.3 pg (25.0-35.0); MCV 91.1 fL (80.0-100.0); Mean Platelet Volume 6.7; Monocytes # (A) 0.5 k/uL (0-1.0); Monocytes % (A) 6 %; Neutrophils % (A) 59 %; Platelet Count 350 k/uL (150-450); RBC 3.35 m/uL (3.80-5.40); RDW 14.9 % (11.5-15.5); WBC 8.4 k/uL (3.8-10.6)
[2018-05-12 16:30] LABS: Appearance,Urine Clear (Clear); Bilirubin,Urine Negative (Negative); Blood,Urine Negative (Negative); Color,Urine Light Yellow; Glucose,Urine (UA) Negative (Negative); Hyaline Casts,Urine 1 /lpf (0-2); Ketones,Urine Negative (Negative); Leukocyte Esterase,Urine Negative (Negative); Mucus,Urine Rare /hpf; Nitrite,Urine Negative (Negative); PH, Urine 5.5 (5.0-8.0); Protein,Urine 1+ (Negative); RBC,Urine <1 /hpf (0-5); Urobilinogen,Urine <2.0 mg/dL (<2.0); WBC,Urine 1 /hpf (0-5)
[2018-05-12 16:49] LABS: Albumin 3.7 g/dL (3.5-5.0); Calcium 9.2 mg/dL (8.4-10.2); Magnesium 1.9 mg/dL (1.6-2.3); Phosphorus 4.3 mg/dL (2.5-4.5); Potassium 4.5 mmol/L (3.5-5.1); Uric Acid 6.3 mg/dL (3.7-7.4)
[2018-05-13 00:45] LABS: Parathyroid Hormone Intact 53.3 pg/mL (14.0-72.0)
[2018-05-13 01:42] LABS: Iron Saturation 17.56 (12.00-45.00)
[2018-05-13 01:50] LABS: Vitamin D 25 Hydroxy 26.8 ng/mL (30.0-100.0)
== END | disposition home or self-care (01) ==
LOC: LABWHC1 16:01
PROVIDERS: ATTEND Internal Medicine Nephrology
DX: N18.3 Chronic kidney disease, stage 3 (moderate) (principal); E61.1 Iron deficiency; M10.9 Gout, unspecified; N39.0 Urinary tract infection, site not specified; E55.9 Vitamin D deficiency, unspecified
CPT/HCPCS: 36415; 80048; 81001; 82040; 82306; 82728; 83540; 83550; 83735; 83970; 84100; 84550; 85025

== ENCOUNTER 2018-05-14 13:03 | Inpatient (IN) | payer MEDICARE ==
[2018-05-14 14:34] LABS: Basophils # (A) 0.1 k/uL (0-0.2); Basophils % (A) 0 %; Eosinophils # (A) 0.2 k/uL (0-0.7); Eosinophils % (A) 1 %; HCT 29.6 % (34.0-46.0); HGB 9.4 gm/dL (11.4-16.0); Hypochromasia Slight; Lymphocytes # (A) 2.1 k/uL (1.0-4.8); Lymphocytes % (A) 15 %; MCH 27.7 pg (25.0-35.0); MCHC 31.7 g/dL (31.0-37.0); MCV 87.2 fL (80.0-100.0); Mean Platelet Volume 6.6; Monocytes % (A) 7 %; Neutrophils # (A) 10.8 k/uL (1.3-7.7); Neutrophils % (A) 75 %; Platelet Count 358 k/uL (150-450); RDW 14.7 % (11.5-15.5); WBC 14.4 k/uL (3.8-10.6)
[2018-05-14 14:49] LABS: Albumin 3.7 g/dL (3.5-5.0); Calcium 9.5 mg/dL (8.4-10.2); Potassium 4.9 mmol/L (3.5-5.1); Total Bilirubin 0.8 mg/dL (0.2-1.3); Total Protein 7.1 g/dL (6.3-8.2)
[2018-05-14 14:50] LABS: INR 1.1 (<1.2)
[2018-05-14 14:51] LABS: Partial Thromboplastin Time 28.1 sec (22.0-30.0); Prothrombin Time 10.3 sec (9.0-12.0)
[2018-05-14] MEDS ORDERED: cefTRIAXone IN SWFI 1,000 MG/10 ML SYRINGE IVP STA (14:55)
[2018-05-14] MEDS ORDERED: ACETAMINOPHEN TAB 500 MG TAB PO STA (14:55)
[2018-05-14 15:06] LABS: Creatine Kinase MB 1.3 ng/mL (0.0-2.4)
[2018-05-14 15:12] LABS: Troponin I 0.082 ng/mL (0.000-0.034)
[2018-05-14 16:04] LABS: Appearance,Urine Clear (Clear); Bilirubin,Urine Negative (Negative); Blood,Urine Negative (Negative); Color,Urine Yellow; Glucose,Urine (UA) Negative (Negative); Ketones,Urine Negative (Negative); Leukocyte Esterase,Urine Negative (Negative); Nitrite,Urine Negative (Negative); PH, Urine 6.5 (5.0-8.0); Protein,Urine 2+ (Negative); RBC,Urine <1 /hpf (0-5); Specific Gravity,Urine 1.011 (1.001-1.035); Squamous Epithelial Cell,Urine 1 /hpf (0-4); Urobilinogen,Urine <2.0 mg/dL (<2.0); WBC,Urine 1 /hpf (0-5)
[2018-05-14 16:08] LABS: Amphetamine Screen,Urine Not Detected (NotDetected); Barbiturate Screen,Urine Not Detected (NotDetected); Benzodiazepines Screen,Urine Detected (NotDetected); Cocaine Screen,Urine Not Detected (NotDetected); Methadone Screen, Urine Not Detected (NotDetected); Opiate Screen,Urine Detected (NotDetected); Oxycodone Screen, Urine Not Detected (NotDetected); Phencyclidine Screen,Urine Not Detected (NotDetected); Tricyclic Antidepressant,Urine Not Detected (NotDetected); Urn Cannabinoid Scrn Not Detected (NotDetected)
[2018-05-14 16:13] LABS: Glucose,Whole Blood 125 mg/dL (75-99)
[2018-05-14] MEDS ORDERED: ACETAMINOPHEN TAB 325 MG TAB PO PRN (17:51)
[2018-05-14] MEDS ORDERED: MORPHINE SULFATE 2 MG/ML SYRINGE IVP PRN (17:51)
[2018-05-14] MEDS ORDERED: NITROGLYCERIN SL TABS 0.4 MG TAB SUBLINGUAL PRN ×2 (17:51→17:55)
--- NOTE | 2018-05-14 17:51 | ED ---
Altered Mental Status HPI - General Chief Complaint: Altered Mental Status Stated Complaint: diarrhea Time Seen by Provider: 05/14/18 14:45 Source: patient, family Mode of arrival: wheelchair Limitations: no limitations - History of Present Illness Initial Comments: 88 years old female brought in by daughter she said she had a diarrhea for last 3 months she has a history of COPD UTIs pneumonia CVA congestive heart failure and myocardial infarction she is complaining about abdominal pain. She is also complaining about some fever she has a history of recurrent UTIs and family feels he could be just a UTI. She herself denies any headaches no neck stiffness no chest pain no pleuritic chest pain. She denies any confusion she denies any head injury no blurred vision no slurred speech no weakness of upper or lower extremity him a no signs of TIA or CVA - Related Data Home Medications Medication Instructions Recorded Confirmed HYDROcodone/APAP 5-325MG [[place] 1 tab PO Q6H PRN 02/02/14 05/14/18 5-325] Omeprazole [PriLOSEC] 20 mg PO AC-BRKFST 02/02/14 05/14/18 amLODIPine BESYLATE [Norvasc] 5 mg PO HS 02/02/14 05/14/18 Ipratropium-Albuterol Nebulize 3 ml INHALATION RT-TID PRN 08/20/16 05/14/18 [Duoneb 0.5 mg-3 mg/3 ml Soln] Montelukast [Singulair] 10 mg PO DAILY 05/17/17 05/14/18 Fluticasone/Salmeterol [Advair 1 puff INHALATION RT-BID 05/18/17 05/14/18 250-50 Diskus] Metoprolol Tartrate [Lopressor] 100 mg PO BID 07/18/17 05/14/18 Sennosides [Senna] 8.6 mg PO HS 07/18/17 05/14/18 Clopidogrel [Plavix] 75 mg PO DAILY@189912/11/17 05/14/18 Rivaroxaban [Xarelto] 15 mg PO DAILY@189912/11/17 05/14/18 Acetaminophen [Tylenol] 1,000 mg PO Q4-6H PRN 05/14/18 05/14/18 Cholecalciferol [Vitamin D3] 3,000 unit PO DAILY 05/14/18 05/14/18 Insulin Detemir [Levemir Flextouch] 8 unit SQ DAILY@1430 05/14/18 05/14/18 Multivitamin [Multivitamins Adult 1 tab PO DAILY 05/14/18 05/14/18 Gummies] Previous Rx's Medication Instructions Recorded Atorvastatin [Lipitor] 40 mg PO HS #30 tab 07/23/17 Nitroglycerin Sl Tabs [Nitrostat] 0.4 mg SUBLINGUAL Q5M PRN #25 tab 07/23/17 Isosorbide Mononitrate ER [Imdur] 30 mg PO DAILY #30 tab.er.24h 09/23/17 Oxazepam [Serax] 15 mg PO BID #60 capsule 10/02/17 Allergies Allergy/AdvReac Type Severity Reaction Status Date / Time amoxicillin trihydrate Allergy Unknown Verified 05/14/18 15:15 [From Augmentin] clindamycin HCl Allergy Unknown Verified 05/14/18 15:15 [From Cleocin] clindamycin palmitate HCl Allergy Unknown Verified 05/14/18 15:15 [From Cleocin] clindamycin phosphate Allergy Unknown Verified 05/14/18 15:15 [From Cleocin] codeine Allergy Unknown Verified 05/14/18 15:15 lorazepam [From Ativan] Allergy Confusion Verified 05/14/18 15:15 nitrofurantoin Allergy Unknown Verified 05/14/18 15:15 [From Macrobid] nitrofurantoin Allergy Unknown Verified 05/14/18 15:15 macrocrystalline [From Macrobid] Penicillins Allergy Unknown Verified 05/14/18 15:15 potassium clavulanate Allergy Unknown Verified 05/14/18 15:15 [From Augmentin] prednisone Allergy Unknown Verified 05/14/18 15:15 quinine Allergy Unknown Verified 05/14/18 15:15 Sulfa (Sulfonamide Allergy Unknown Verified 05/14/18 15:15 Antibiotics) sulfamethoxazole Allergy Unknown Verified 05/14/18 15:15 [From Bactrim] trimethoprim [From Bactrim] Allergy Unknown Verified 05/14/18 15:15 Review of Systems ROS Statement: Those systems with pertinent positive or pertinent negative responses have been documented in the HPI. ROS Other: All systems not noted in ROS Statement are negative. Past Medical History Past Medical History: Coronary Artery Disease (CAD), Chest Pain / Angina, COPD, CVA/TIA, Diabetes Mellitus, GERD/Reflux, Hearing Disorder / Deafness, Hyperlipidemia, Hypertension, Myocardial Infarction ([place]), Osteoarthritis ([place]), Pneumonia Additional Past Medical History / Comment(s): anemia, eczema, constipation, TIA X 3, esophageal dilation due to issues swallowing Last Myocardial Infarction Date:: 1998, 09/21/17 History of Any Multi-Drug Resistant Organisms: VRE Date of last positivie culture/infection: 10/07/17 MDRO Source:: VRE URINE Past Surgical History: Cholecystectomy, Heart Catheterization With Stent Additional Past Surgical History / Comment(s): cataracts w/ lens implants, 2 ovary removed, heart caths :04/30/96 stent to rca, 03/18/2000 stent to mid rca, stent to lad Past Anesthesia/Blood Transfusion Reactions: Previous Problems w/ Anesthesia Additional Past Anesthesia/Blood Transfusion Reaction / Comment(s): difficulty breathing after anesthesia Date of Last Stent Placement:: 06/2017 Past Psychological History: Depression Smoking Status: Former smoker Past Alcohol Use History: None Reported Past Drug Use History: None Reported - Past Family History Father History Unknown: Yes Family Medical History: Myocardial Infarction ([place]) Mother History Unknown: Yes Family Medical History: Myocardial Infarction ([place]) Additional Family Medical History / Comment(s): Mother of a [place] at about age 80yrs. General Exam - General Exam Comments Initial Comments: General: The patient is awake and alert, in no distress, and does not appear acutely ill. ACS is 15 no confusion at all Skin: Skin is warm and dry and no rashes or lesions are noted. Eye: Pupils are equal, round and reactive to light, extra-ocular movements are intact; there is normal conjunctiva bilaterally. Ears, nose, mouth and throat: There are moist mucous membranes and no oral lesions. Neck: The neck is supple, there is no tenderness or JVD. Cardiovascular: There is a regular rate and rhythm. No murmur, rub or gallop is appreciated. Respiratory: To auscultation bilateral, no wheezing no rhonchi no distress respiratory de la cruz noticed Gastrointestinal: Soft, non-distended, non-tender abdomen without masses or organomegaly noted. There is no rebound or guarding present. Bowel sounds are unremarkable. No focal area of tenderness noticed positive bowel sounds no guarding no rebounds Back: There is no tenderness to palpation in the midline. There is no obvious deformity. Musculoskeletal: Normal ROM, no tenderness, There is no pedal edema. There is no calf tenderness or swelling. No cords were appreciated. Neurological: CN II-XII intact, Cranial nerves III through XII are intact. There are no obvious motor or sensory deficits. Coordination appears grossly intact. Speech is normal. Psychiatric: Cooperative, appropriate mood & affect, normal judgment. Limitations: no limitations Course Vital Signs 05/14/18 05/14/18 05/14/18 13:10 15:44 17:20 Temperature 100.1 F H 101.2 F H 100.0 F H Pulse Rate 87 86 86 Respiratory 18 18 22 Rate Blood Pressure 134/80 152/67 142/66 O2 Sat by Pulse 96 97 93 L Oximetry EKG is normal sinus ventricular rate is 90 CO interval is 174 QRS duration is 140 QT/QTC 390/477 it is a left bundle branch block and she does have a history of left bundle branch block Plan reassessment noticed white count is 14.4 INR is normal creatinine is 1.5 troponin is 0.082 urinalysis is normal troponin is elevated chest x-ray suspect infiltrate in the lower lobes, patient be admitted to Dr. Thayer's service cardiology be consulted he be started some antibiotics Medical Decision Making - Lab Data Result diagrams: 05/14/18 14:10 05/14/18 14:10 Lab Results 05/14/18 05/14/18 05/14/18 Range/Units 14:10 14:10 14:10 WBC 14.4 H (3.8-10.6) k/uL RBC 3.40 L (3.80-5.40) m/uL Hgb 9.4 L (11.4-16.0) gm/dL Hct 29.6 L (34.0-46.0) % MCV 87.2 (80.0-100.0) fL MCH 27.7 (25.0-35.0) pg MCHC 31.7 (31.0-37.0) g/dL RDW 14.7 (11.5-15.5) % Plt Count 358 (150-450) k/uL Neutrophils % 75 % Lymphocytes % 15 % Monocytes % 7 % Eosinophils % 1 % Basophils % 0 % Neutrophils # 10.8 H (1.3-7.7) k/uL Lymphocytes # 2.1 (1.0-4.8) k/uL Monocytes # 1.0 (0-1.0) k/uL Eosinophils # 0.2 (0-0.7) k/uL Basophils # 0.1 (0-0.2) k/uL Hypochromasia Slight PT (9.0-12.0) sec INR (<1.2) APTT (22.0-30.0) sec Sodium 140 (137-145) mmol/L Potassium 4.9 (3.5-5.1) mmol/L Chloride 108 H (98-107) mmol/L Carbon Dioxide 23 (22-30) mmol/L Anion Gap 9 mmol/L BUN 26 H (7-17) mg/dL Creatinine 1.50 H (0.52-1.04) mg/dL Est GFR (CKD-EPI)AfAm 36 (>60 ml/min/1.73 sqM) Est GFR (CKD-EPI)NonAf 31 (>60 ml/min/1.73 sqM) Glucose 128 H (74-99) mg/dL POC Glucose (mg/dL) (75-99) mg/dL POC Glu Drafter Heating [employer] Ventilating ID Calcium 9.5 (8.4-10.2) mg/dL Total Bilirubin 0.8 (0.2-1.3) mg/dL AST 26 (14-36) U/L ALT 23 (9-52) U/L Alkaline Phosphatase 69 (38-126) U/L Total Creatine Kinase 87 (30-135) U/L CK-MB (CK-2) 1.3 (0.0-2.4) ng/mL CK-MB (CK-2) Rel Index 1.5 Troponin I 0.082 H* (0.000-0.034) ng/mL Total Protein 7.1 (6.3-8.2) g/dL Albumin 3.7 (3.5-5.0) g/dL Urine Color Urine Appearance (Clear) Urine pH (5.0-8.0) Ur Specific [place] (1.001-1.035) Urine Protein (Negative) Urine Glucose (UA) (Negative) Urine Ketones (Negative) Urine Blood (Negative) Urine Nitrite (Negative) Urine Bilirubin (Negative) Urine Urobilinogen (<2.0) mg/dL Ur Leukocyte Esterase (Negative) Urine RBC (0-5) /hpf Urine WBC (0-5) /hpf Ur Squamous Epith Cells (0-4) /hpf Urine Opiates Screen (NotDetected) Ur Oxycodone Screen (NotDetected) Urine Methadone Screen (NotDetected) Ur Propoxyphene Screen (NotDetected) Ur Barbiturates Screen (NotDetected) U Tricyclic Antidepress (NotDetected) Ur Phencyclidine Scrn (NotDetected) Ur Amphetamines Screen (NotDetected) U Methamphetamines Scrn (NotDetected) U Benzodiazepines Scrn (NotDetected) Urine Cocaine Screen (NotDetected) U Marijuana (THC) Screen (NotDetected) 05/14/18 05/14/18 05/14/18 Range/Units 14:10 15:49 16:03 WBC (3.8-10.6) k/uL RBC (3.80-5.40) m/uL Hgb (11.4-16.0) gm/dL Hct (34.0-46.0) % MCV (80.0-100.0) fL MCH (25.0-35.0) pg MCHC (31.0-37.0) g/dL RDW (11.5-15.5) % Plt Count (150-450) k/uL Neutrophils % % Lymphocytes % % Monocytes % % Eosinophils % % Basophils % % Neutrophils # (1.3-7.7) k/uL Lymphocytes # (1.0-4.8) k/uL Monocytes # (0-1.0) k/uL Eosinophils # (0-0.7) k/uL Basophils # (0-0.2) k/uL Hypochromasia PT 10.3 (9.0-12.0) sec INR 1.1 (<1.2) APTT 28.1 (22.0-30.0) sec Sodium (137-145) mmol/L Potassium (3.5-5.1) mmol/L Chloride (98-107) mmol/L Carbon Dioxide (22-30) mmol/L Anion Gap mmol/L BUN (7-17) mg/dL Creatinine (0.52-1.04) mg/dL Est GFR (CKD-EPI)AfAm (>60 ml/min/1.73 sqM) Est GFR (CKD-EPI)NonAf (>60 ml/min/1.73 sqM) Glucose (74-99) mg/dL POC Glucose (mg/dL) 125 H (75-99) mg/dL POC Glu [employer] Ventil[employer] ID Olena Vela Calcium (8.4-10.2) mg/dL Total Bilirubin (0.2-1.3) mg/dL AST (14-36) U/L ALT (9-52) U/L Alkaline Phosphatase (38-126) U/L Total Creatine Kinase (30-135) U/L CK-MB (CK-2) (0.0-2.4) ng/mL CK-MB (CK-2) Rel Index Troponin I (0.000-0.034) ng/mL Total Protein (6.3-8.2) g/dL Albumin (3.5-5.0) g/dL Urine Color Yellow Urine Appearance Clear (Clear) Urine pH 6.5 (5.0-8.0) Ur Specific [place] 1.011 (1.001-1.035) Urine Protein 2+ H (Negative) Urine Glucose (UA) Negative (Negative) Urine Ketones Negative (Negative) Urine Blood Negative (Negative) Urine Nitrite Negative (Negative) Urine Bilirubin Negative (Negative) Urine Urobilinogen <2.0 (<2.0) mg/dL Ur Leukocyte Esterase Negative (Negative) Urine RBC <1 (0-5) /hpf Urine WBC 1 (0-5) /hpf Ur Squamous Epith Cells 1 (0-4) /hpf Urine Opiates Screen Detected H (NotDetected) Ur Oxycodone Screen Not Detected (NotDetected) Urine Methadone Screen Not Detected (NotDetected) Ur Propoxyphene Screen Not Detected (NotDetected) Ur Barbiturates Screen Not Detected (NotDetected) U Tricyclic Antidepress Not Detected (NotDetected) Ur Phencyclidine Scrn Not Detected (NotDetected) Ur Amphetamines Screen Not Detected (NotDetected) U Methamphetamines Scrn Not Detected (NotDetected) U Benzodiazepines Scrn Detected H (NotDetected) Urine Cocaine Screen Not Detected (NotDetected) U Marijuana (THC) Screen Not Detected (NotDetected) Disposition Clinical Impression: Fever, Elevated troponin, Pneumonia Disposition: ADMITTED IP TO THIS HOSP Condition: Good Referrals: Georgi Thayer MD [Primary Care Provider] - 1-2 days
[2018-05-14] MEDS ORDERED: ACETAMINOPHEN TAB 500 MG TAB PO PRN (17:55)
--- NOTE | 2018-05-14 18:14 | XR ---
EXAMINATION: XR chest 2V DATE AND TIME: 05/14/2018 5:18 PM CLINICAL INDICATION: altered mental status TECHNIQUE: PA and lateral COMPARISON: 03/01/2018 FINDINGS: Overall, lung inflation pattern is similar to the prior study. The lungs again show silhoue tting of the pulmonary vasculature bilaterally, by a fine reticular pattern of increased density thro ughout the lung symmetrically, and also with concurrent ill-defined added opacity in the lung bases. 1. Clinical exclusion of interstitial phase pulmonary edema will be useful. If excluded clinically, t he interstitial pattern is chronic. 2. Suspect basilar bronchopneumonia, particularly so on the right. The pleural spaces are negative. The cardiac silhouette is moderately enlarged, stable. The remainder of the mediastinal silhouette is unremarkable. The skeletal structures and soft tissues are negative for acute findings. IMPRESSION: Similar overall lung inflation pattern.
[2018-05-14] MEDS: SYMBICORT 80-4.5 MCG INHALER INHALATION SCH (18:51)
[2018-05-14 19:43] VITALS: BMI 25.4
[2018-05-14] MEDS: CLOPIDOGREL 75 MG TAB PO SCH (19:47)
[2018-05-14] MEDS: amLODIPine 5 MG TAB PO SCH (19:47)
[2018-05-14] MEDS: ATORVASTATIN 40 MG TAB PO SCH (19:47)
[2018-05-14] MEDS: RIVAROXABAN 15 MG TAB PO SCH (19:47)
[2018-05-14] MEDS: SENNOSIDES 8.6 MG TAB PO SCH (19:48)
[2018-05-14] MEDS: METOPROLOL TARTRATE 50 MG TAB PO SCH (19:48)
[2018-05-14] MEDS: OXAZEPAM 15 MG PO SCH (19:48)
[2018-05-14 20:54] LABS: Glucose,Whole Blood 142 mg/dL (75-99)
[2018-05-14 20:57] LABS: Creatine Kinase MB 1.4 ng/mL (0.0-2.4)
[2018-05-14] MEDS: INSULIN ASPART 100 UNIT/ML 1 ML 10 ML VIAL SQ SCH (20:57)
[2018-05-14 20:59] LABS: Troponin I 0.088 ng/mL (0.000-0.034)
[2018-05-15] MEDS: HYDROcodone/APAP 5-325MG 1 EACH TAB PO PRN ×2 (00:22→21:47)
[2018-05-15 02:39] LABS: Hemoglobin A1C 6.2 % (4.0-6.0)
[2018-05-15 04:11] LABS: Cholesterol 129 mg/dL (<200); HDL Cholesterol 56 mg/dL (40-60); LDL Cholesterol,Calculated 55 mg/dL (0-99); Triglycerides 89 mg/dL (<150)
[2018-05-15 04:43] LABS: Creatine Kinase MB 1.6 ng/mL (0.0-2.4)
[2018-05-15 05:02] LABS: Troponin I 0.066 ng/mL (0.000-0.034)
[2018-05-15 06:05] LABS: Glucose,Whole Blood 119 mg/dL (75-99)
[2018-05-15] MEDS: INSULIN ASPART 100 UNIT/ML 1 ML 10 ML VIAL SQ SCH ×4 (06:08→21:07)
[2018-05-15] MEDS: PANTOPRAZOLE 40 MG TABLET PO SCH (06:26)
--- NOTE | 2018-05-15 07:35 | P.NPCON ---
History of Present Illness - Reason for Consult Consult date: 05/15/18 chronic renal failure - Chief Complaint Chronic kidney disease with diarrhea - History of Present Illness This 88-year-old female is a patient of Dr. Soto with chronic kidney disease , she came in with 3 month history of diarrhea about 2-4 per day, history of 20 pound weight loss and some abdominal discomfort. She also says is been coughing for but sometime but she is known with COPD. She is known with diabetes, history of ASHD with OR in the past and heart catheterization. She is also known with recurrent UTIs. Has had a CVA in the past and congestive heart failure. She denies any nausea vomiting. No nonsteroidal use. Currently no dysuria frequency. She does feel dizzy. No fever chills. Past Medical History Past Medical History: Coronary Artery Disease (CAD), Chest Pain / Angina, COPD, CVA/TIA, Diabetes Mellitus, GERD/Reflux, Hearing Disorder / Deafness, Hyperlipidemia, Hypertension, Myocardial Infarction (OR), Osteoarthritis (OA), Pneumonia Additional Past Medical History / Comment(s): anemia, eczema, constipation, TIA X 3, esophageal dilation due to issues swallowing Last Myocardial Infarction Date:: 1998, 09/21/17 History of Any Multi-Drug Resistant Organisms: VRE Date of last positivie culture/infection: 10/07/17 MDRO Source:: VRE URINE Past Surgical History: Cholecystectomy, Heart Catheterization With Stent Additional Past Surgical History / Comment(s): cataracts w/ lens implants, 2 ovary removed, heart caths :04/30/96 stent to rca, 03/18/2000 stent to mid rca, stent to lad Past Anesthesia/Blood Transfusion Reactions: Previous Problems w/ Anesthesia Additional Past Anesthesia/Blood Transfusion Reaction / Comment(s): difficulty breathing after anesthesia Date of Last Stent Placement:: 06/2017 Past Psychological History: Depression Additional Psychological History / Comment(s): Pt resides in an apartment at [facility]. She ambulates with a walker. Her daughter is very helpful and is in an apt above her. has chore person from [employer] on aging. She no longer drives, family takes her to [employer]. she cooks and manages her own medication. Smoking Status: Former smoker Past Alcohol Use History: None Reported Additional Past Alcohol Use History / Comment(s): Patient has history of smoking 3 packs per day started smoking at age 16 and quit in 1997 Past Drug Use History: None Reported - Past Family History Father History Unknown: Yes Family Medical History: Myocardial Infarction (OR) Mother History Unknown: Yes Family Medical History: Myocardial Infarction (OR) Additional Family Medical History / Comment(s): Mother of a OR at about age 80yrs. Medications and Allergies Home Medications Medication Instructions Recorded Confirmed Type HYDROcodone/APAP 5-325MG [Lamar 1 tab PO Q6H PRN 02/02/14 05/14/18 History 5-325] Omeprazole [PriLOSEC] 20 mg PO AC-BRKFST 02/02/14 05/14/18 History amLODIPine BESYLATE [Norvasc] 5 mg PO HS 02/02/14 05/14/18 History Ipratropium-Albuterol Nebulize 3 ml INHALATION RT-TID PRN 08/20/16 05/14/18 History [Duoneb 0.5 mg-3 mg/3 ml Soln] Montelukast [Singulair] 10 mg PO DAILY 05/17/17 05/14/18 History Fluticasone/Salmeterol [Advair 1 puff INHALATION RT-BID 05/18/17 05/14/18 History 250-50 Diskus] Metoprolol Tartrate [Lopressor] 100 mg PO BID 07/18/17 05/14/18 History Sennosides [Senna] 8.6 mg PO HS 07/18/17 05/14/18 History Atorvastatin [Lipitor] 40 mg PO HS #30 tab 07/23/17 05/14/18 Rx Nitroglycerin Sl Tabs [Nitrostat] 0.4 mg SUBLINGUAL Q5M PRN #25 tab 07/23/17 Rx Isosorbide Mononitrate ER [Imdur] 30 mg PO DAILY #30 tab.er.24h 09/23/17 Rx Oxazepam [Serax] 15 mg PO BID #60 capsule 10/02/17 05/14/18 Rx Clopidogrel [Plavix] 75 mg PO DAILY@1900 12/11/17 05/14/18 History Rivaroxaban [Xarelto] 15 mg PO DAILY@189912/11/17 05/14/18 History Acetaminophen [Tylenol] 1,000 mg PO Q4-6H PRN 05/14/18 05/14/18 History Cholecalciferol [Vitamin D3] 3,000 unit PO DAILY 05/14/18 05/14/18 History Insulin Detemir [Levemir Flextouch] 8 unit SQ DAILY@1430 05/14/18 05/14/18 History Multivitamin [Multivitamins Adult 1 tab PO DAILY 05/14/18 05/14/18 History Gummies] Allergies Allergy/AdvReac Type Severity Reaction Status Date / Time amoxicillin trihydrate Allergy Unknown Verified 05/14/18 15:15 [From Augmentin] clindamycin HCl Allergy Unknown Verified 05/14/18 15:15 [From Cleocin] clindamycin palmitate HCl Allergy Unknown Verified 05/14/18 15:15 [From Cleocin] clindamycin phosphate Allergy Unknown Verified 05/14/18 15:15 [From Cleocin] codeine Allergy Unknown Verified 05/14/18 15:15 lorazepam [From Ativan] Allergy Confusion Verified 05/14/18 15:15 nitrofurantoin Allergy Unknown Verified 05/14/18 15:15 [From Macrobid] nitrofurantoin Allergy Unknown Verified 05/14/18 15:15 macrocrystalline [From Macrobid] Penicillins Allergy Unknown Verified 05/14/18 15:15 potassium clavulanate Allergy Unknown Verified 05/14/18 15:15 [From Augmentin] prednisone Allergy Unknown Verified 05/14/18 15:15 quinine Allergy Unknown Verified 05/14/18 15:15 Sulfa (Sulfonamide Allergy Unknown Verified 05/14/18 15:15 Antibiotics) sulfamethoxazole Allergy Unknown Verified 05/14/18 15:15 [From Bactrim] trimethoprim [From Bactrim] Allergy Unknown Verified 05/14/18 15:15 Physical Exam Vitals: Vital Signs Temp Pulse Pulse Resp BP BP Pulse Ox 05/15/18 04:00 98.5 F 83 19 145/80 97 05/14/18 23:02 87 19 05/14/18 23:01 97.6 F 87 19 169/71 98 05/14/18 20:00 88 19 05/14/18 19:57 97.7 F 85 18 123/58 94 L 05/14/18 18:56 98.2 F 87 18 136/61 93 L 05/14/18 18:21 97.7 F 85 18 123/58 94 L 05/14/18 17:20 100.0 F H 86 22 142/66 93 L 05/14/18 15:44 101.2 F H 86 18 152/67 97 05/14/18 13:10 100.1 F H 87 18 134/80 96 Intake and Output 05/14/18 05/15/18 05/15/18 22:59 06:59 14:59 Intake Total 300 Balance 300 Intake: Oral 300 Other: Voiding Method Toilet Toilet # Voids 1 1 # Bowel Movements 1 Weight 57.2 kg 57.2 kg On examination she is hard of hearing and uses both ear aids. HEENT exam no JVP lymphadenopathy thyromegaly neck is supple no facial asymmetry Lungs are significant for bilateral coarse crackles with fairly extensive. Fair air entry bilaterally. Heart sounds are unremarkable somewhat distant no murmur rub gallop Abdomen soft nontender no masses felt Extremity exam was no edema In neurologically awake alert oriented comfortable hard of hearing Results - Lab Results Most recent lab results Calcium 9.5 mg/dL (8.4-10.2) 05/14/18 14:10 05/14/18 14:10 05/14/18 14:10 Assessment and Plan Assessment: Impression 1. Chronic kidney disease Baseline creatinine of 1.3-1.5 currently admitted with a creatinine of 1.5. Diabetic nephropathy 2+ proteinuria. 2. Admitted with loose stools for 3 months with weight loss of 20 pounds needs to rule out ischemic colitis. 3. History of COPD. Chest x-ray shows no new findings 4. History of ASHD with cardiac catheterization. 5. On anticoagulation. 6. Anemia with hemoglobin 9.4 etiology chronic kidney disease rule out an deficiency. 7. Dependency on narcotics. Recommendation. 1. Maintain blood pressure between 110s 1:30 2. Will watch her blood pressure on current medications. She is currently on amlodipine. 3. She's not on any Yusef inhibitors or ARB will look into her office records and see if there is any history of hyperkalemia. 4. Monitor labs Thank you for this consultation and continue to follow with you
--- NOTE | 2018-05-15 08:19 | P.HPIM ---
History of Present Illness H&P Date: 05/15/18 Chief Complaint: Altered mental status shortness of breath This is an 88-year-old white female with known history of heart failure and recurrent UTI with history of altered mental status. The patient does have issue with recurrent UTI and the family thought it was this because of her fever. However, evaluation did show bronchopneumonia and she is admitted for this appropriately. She seems quite lucid this morning no significant complaints no nausea, vomiting or diarrhea stated Review of Systems Constitutional: Reports fatigue, Reports fever, Denies chills Eyes: denies blurred vision, denies pain Ears, nose, mouth and throat: Denies headache, Denies sore throat Cardiovascular: Denies chest pain, Denies shortness of breath Respiratory: Reports as per HPI Genitourinary: Denies dysuria, Denies hematuria Musculoskeletal: Denies myalgias Past Medical History Past Medical History: Coronary Artery Disease (CAD), Chest Pain / Angina, COPD, CVA/TIA, Diabetes Mellitus, GERD/Reflux, Hearing Disorder / Deafness, Hyperlipidemia, Hypertension, Myocardial Infarction (MD), Osteoarthritis (OA), Pneumonia Additional Past Medical History / Comment(s): anemia, eczema, constipation, TIA X 3, esophageal dilation due to issues swallowing Last Myocardial Infarction Date:: 1998, 09/21/17 History of Any Multi-Drug Resistant Organisms: VRE Date of last positivie culture/infection: 10/07/17 MDRO Source:: VRE URINE Past Surgical History: Cholecystectomy, Heart Catheterization With Stent Additional Past Surgical History / Comment(s): cataracts w/ lens implants, 2 ovary removed, heart caths :04/30/96 stent to rca, 03/18/2000 stent to mid rca, stent to lad Past Anesthesia/Blood Transfusion Reactions: Previous Problems w/ Anesthesia Additional Past Anesthesia/Blood Transfusion Reaction / Comment(s): difficulty breathing after anesthesia Date of Last Stent Placement:: 06/2017 Past Psychological History: Depression Additional Psychological History / Comment(s): Pt resides in an apartment at [facility]. She ambulates with a walker. Her daughter is very helpful and is in an apt above her. has chore person from [employer] on aging. She no longer drives, family takes her to [employer]. she cooks and manages her own medication. Smoking Status: Former smoker Past Alcohol Use History: None Reported Additional Past Alcohol Use History / Comment(s): Patient has history of smoking 3 packs per day started smoking at age 16 and quit in 1997 Past Drug Use History: None Reported - Past Family History Father History Unknown: Yes Family Medical History: Myocardial Infarction (MD) Mother History Unknown: Yes Family Medical History: Myocardial Infarction (MD) Additional Family Medical History / Comment(s): Mother of a MD at about age 80yrs. Medications and Allergies Home Medications Medication Instructions Recorded Confirmed Type HYDROcodone/APAP 5-325MG [Imlay 1 tab PO Q6H PRN 02/02/14 05/14/18 History 5-325] Omeprazole [PriLOSEC] 20 mg PO AC-BRKFST 02/02/14 05/14/18 History amLODIPine BESYLATE [Norvasc] 5 mg PO HS 02/02/14 05/14/18 History Ipratropium-Albuterol Nebulize 3 ml INHALATION RT-TID PRN 08/20/16 05/14/18 History [Duoneb 0.5 mg-3 mg/3 ml Soln] Montelukast [Singulair] 10 mg PO DAILY 05/17/17 05/14/18 History Fluticasone/Salmeterol [Advair 1 puff INHALATION RT-BID 05/18/17 05/14/18 History 250-50 Diskus] Metoprolol Tartrate [Lopressor] 100 mg PO BID 07/18/17 05/14/18 History Sennosides [Senna] 8.6 mg PO HS 07/18/17 05/14/18 History Atorvastatin [Lipitor] 40 mg PO HS #30 tab 07/23/17 05/14/18 Rx Nitroglycerin Sl Tabs [Nitrostat] 0.4 mg SUBLINGUAL Q5M PRN #25 tab 07/23/17 Rx Isosorbide Mononitrate ER [Imdur] 30 mg PO DAILY #30 tab.er.24h 09/23/17 Rx Oxazepam [Serax] 15 mg PO BID #60 capsule 10/02/17 05/14/18 Rx Clopidogrel [Plavix] 75 mg PO DAILY@189912/11/17 05/14/18 History Rivaroxaban [Xarelto] 15 mg PO DAILY@1900 12/11/17 05/14/18 History Acetaminophen [Tylenol] 1,000 mg PO Q4-6H PRN 05/14/18 05/14/18 History Cholecalciferol [Vitamin D3] 3,000 unit PO DAILY 05/14/18 05/14/18 History Insulin Detemir [Levemir Flextouch] 8 unit SQ DAILY@1430 05/14/18 05/14/18 History Multivitamin [Multivitamins Adult 1 tab PO DAILY 05/14/18 05/14/18 History Gummies] Allergies Allergy/AdvReac Type Severity Reaction Status Date / Time amoxicillin trihydrate Allergy Unknown Verified 05/14/18 15:15 [From Augmentin] clindamycin HCl Allergy Unknown Verified 05/14/18 15:15 [From Cleocin] clindamycin palmitate HCl Allergy Unknown Verified 05/14/18 15:15 [From Cleocin] clindamycin phosphate Allergy Unknown Verified 05/14/18 15:15 [From Cleocin] codeine Allergy Unknown Verified 05/14/18 15:15 lorazepam [From Ativan] Allergy Confusion Verified 05/14/18 15:15 nitrofurantoin Allergy Unknown Verified 05/14/18 15:15 [From Macrobid] nitrofurantoin Allergy Unknown Verified 05/14/18 15:15 macrocrystalline [From Macrobid] Penicillins Allergy Unknown Verified 05/14/18 15:15 potassium clavulanate Allergy Unknown Verified 05/14/18 15:15 [From Augmentin] prednisone Allergy Unknown Verified 05/14/18 15:15 quinine Allergy Unknown Verified 05/14/18 15:15 Sulfa (Sulfonamide Allergy Unknown Verified 05/14/18 15:15 Antibiotics) sulfamethoxazole Allergy Unknown Verified 05/14/18 15:15 [From Bactrim] trimethoprim [From Bactrim] Allergy Unknown Verified 05/14/18 15:15 Physical Exam Vitals: Vital Signs Temp Pulse Pulse Resp BP BP Pulse Ox 05/15/18 04:00 98.5 F 83 19 145/80 97 05/14/18 23:02 87 19 05/14/18 23:01 97.6 F 87 19 169/71 98 05/14/18 20:00 88 19 05/14/18 19:57 97.7 F 85 18 123/58 94 L 05/14/18 18:56 98.2 F 87 18 136/61 93 L 05/14/18 18:21 97.7 F 85 18 123/58 94 L 05/14/18 17:20 100.0 F H 86 22 142/66 93 L 05/14/18 15:44 101.2 F H 86 18 152/67 97 05/14/18 13:10 100.1 F H 87 18 134/80 96 Intake and Output 05/14/18 05/15/18 05/15/18 22:59 06:59 14:59 Intake Total 300 240 Balance 300 240 Intake: Oral 300 240 Other: Voiding Method Toilet Toilet # Voids 1 1 # Bowel Movements 1 Weight 57.2 kg 57.2 kg - Constitutional General appearance: no acute distress - EENT Eyes: EOMI - Neck Neck: no lymphadenopathy - Respiratory Respiratory: bilateral: diminished - Cardiovascular Rhythm: regular Heart sounds: normal: S1, S2 Abnormal Heart Sounds: no S3 Gallop - Gastrointestinal General gastrointestinal: soft - Neurologic Neurologic: CNII-XII intact - Psychiatric Psychiatric: A&O x's 3, intact judgment & insight Results CBC & Chem 7: 05/14/18 14:10 05/14/18 14:10 Labs: Abnormal Lab Results - Last 24 Hours (Table) 05/14/18 05/14/18 05/14/18 Range/Units 14:10 14:10 14:10 WBC 14.4 H (3.8-10.6) k/uL RBC 3.40 L (3.80-5.40) m/uL Hgb 9.4 L (11.4-16.0) gm/dL Hct 29.6 L (34.0-46.0) % Neutrophils # 10.8 H (1.3-7.7) k/uL Chloride 108 H (98-107) mmol/L BUN 26 H (7-17) mg/dL Creatinine 1.50 H (0.52-1.04) mg/dL Glucose 128 H (74-99) mg/dL POC Glucose (mg/dL) (75-99) mg/dL Hemoglobin A1c (4.0-6.0) % Troponin I 0.082 H* (0.000-0.034) ng/mL Urine Protein (Negative) Urine Opiates Screen (NotDetected) U Benzodiazepines Scrn (NotDetected) 05/14/18 05/14/18 05/14/18 Range/Units 15:49 16:03 19:59 WBC (3.8-10.6) k/uL RBC (3.80-5.40) m/uL Hgb (11.4-16.0) gm/dL Hct (34.0-46.0) % Neutrophils # (1.3-7.7) k/uL Chloride (98-107) mmol/L BUN (7-17) mg/dL Creatinine (0.52-1.04) mg/dL Glucose (74-99) mg/dL POC Glucose (mg/dL) 125 H (75-99) mg/dL Hemoglobin A1c (4.0-6.0) % Troponin I 0.088 H* (0.000-0.034) ng/mL Urine Protein 2+ H (Negative) Urine Opiates Screen Detected H (NotDetected) U Benzodiazepines Scrn Detected H (NotDetected) 05/14/18 05/14/18 05/15/18 Range/Units 19:59 20:53 03:21 WBC (3.8-10.6) k/uL RBC (3.80-5.40) m/uL Hgb (11.4-16.0) gm/dL Hct (34.0-46.0) % Neutrophils # (1.3-7.7) k/uL Chloride (98-107) mmol/L BUN (7-17) mg/dL Creatinine (0.52-1.04) mg/dL Glucose (74-99) mg/dL POC Glucose (mg/dL) 142 H (75-99) mg/dL Hemoglobin A1c 6.2 H (4.0-6.0) % Troponin I 0.066 H* (0.000-0.034) ng/mL Urine Protein (Negative) Urine Opiates Screen (NotDetected) U Benzodiazepines Scrn (NotDetected) 05/15/18 Range/Units 06:04 WBC (3.8-10.6) k/uL RBC (3.80-5.40) m/uL Hgb (11.4-16.0) gm/dL Hct (34.0-46.0) % Neutrophils # (1.3-7.7) k/uL Chloride (98-107) mmol/L BUN (7-17) mg/dL Creatinine (0.52-1.04) mg/dL Glucose (74-99) mg/dL POC Glucose (mg/dL) 119 H (75-99) mg/dL Hemoglobin A1c (4.0-6.0) % Troponin I (0.000-0.034) ng/mL Urine Protein (Negative) Urine Opiates Screen (NotDetected) U Benzodiazepines Scrn (NotDetected) Microbiology - Last 24 Hours (Table) 05/14/18 15:49 Urine Culture - Preliminary Urine,Voided Thrombosis Risk Factor Assmnt - Choose All That Apply Any of the Below Risk Factors Present?: Yes Each Factor Represents 1 point: Abnormal pulmonary function (COPD), Obesity ( BMI >25) Other Risk Factors: Yes Each Risk Factor Represents 3 Points: Age 75 years or older Other congenital or acquired thrombophilia - If yes, enter type in comment: No Thrombosis Risk Factor Assessment Total Risk Factor Score: 5 Thrombosis Risk Factor Assessment Level: High Risk Assessment and Plan (1) Elevated troponin Current Visit: Yes Status: Acute Code(s): R74.8 - ABNORMAL LEVELS OF OTHER SERUM ENZYMES SNOMED Code(s): 784817379 (2) Fever Current Visit: Yes Status: Acute Code(s): R50.9 - FEVER, UNSPECIFIED SNOMED Code(s): 819342763 (3) Pneumonia Current Visit: Yes Status: Acute Code(s): J18.9 - PNEUMONIA, UNSPECIFIED ORGANISM SNOMED Code(s): 032911197 (4) CHF (congestive heart failure) Current Visit: No Status: Acute Code(s): I50.9 - HEART FAILURE, UNSPECIFIED SNOMED Code(s): 29040796 (5) High risk for readmission Current Visit: No Status: Acute Code(s): Z91.89 - OTH PERSONAL RISK FACTORS , NOT ELSEWHERE CLASSIFIED SNOMED Code(s): 544366268 (6) Hyperlipidemia Current Visit: No Status: Acute Code(s): E78.5 - HYPERLIPIDEMIA, UNSPECIFIED SNOMED Code(s): 19964308 (7) Hypertension Current Visit: No Status: Acute Code(s): I10 - ESSENTIAL (PRIMARY) HYPERTENSION SNOMED Code(s): 97326939 (8) Renal insufficiency Current Visit: No Status: Acute Code(s): N28.9 - DISORDER OF KIDNEY AND URETER, UNSPECIFIED SNOMED Code(s): 912663145 Plan: Placed on appropriately acquired pneumonia protocol. Rule out myocardial infarction. Question need for cardiology consult if symptoms warrant. Appreciate nephrology input. Dr. Box's group will be covering for the weekend. Check CBC and CMP in a.m. She is DO NOT RESUSCITATE otherwise. Time with Patient: Greater than 30
[2018-05-15] MEDS: SYMBICORT 80-4.5 MCG INHALER INHALATION SCH ×2 (08:24→20:05)
[2018-05-15] MEDS: IPRATROPIUM-ALBUTEROL 3 ML NEB INHALATION PRN ×2 (08:24→11:15)
[2018-05-15] MEDS: METOPROLOL TARTRATE 50 MG TAB PO SCH ×2 (08:58→21:40)
[2018-05-15] MEDS: ISOSORBIDE MONONITRATE ER 30 MG TAB.ER.24H PO SCH (08:58)
[2018-05-15] MEDS: CHOLECALCIFEROL 1,000 UNIT TAB PO SCH (08:58)
[2018-05-15] MEDS: MONTELUKAST 10 MG TAB PO SCH (08:59)
[2018-05-15] MEDS: OXAZEPAM 15 MG PO SCH ×2 (08:59→21:40)
[2018-05-15] MEDS: MULTIVITAMINS, THERA 1 EACH TAB PO SCH (08:59)
[2018-05-15] MEDS ORDERED: ASPIRIN 325 MG TAB PO SCH (09:00)
--- NOTE | 2018-05-15 09:17 | P.CRDCN ---
History of Present Illness Consult date: 05/15/18 Requesting physician: Georgi Thayer Reason for Consult (text): elevated troponin Chief complaint: productive cough, fever History of present illness: This a pleasant 88-year-old female patient who follows with Dr. ANDRADE Nunez in the office. She has a known history of coronary artery disease with prior stenting of the RCA and most recently the LAD in June 2017. Most recent cardiac catheterization in August 2017 showed patent LAD stent with mild to moderate restenosis in stenosis of the RCA that was unchanged compared to prior study in June 2017 as well as mild disease in the circumflex. She also has a history of COPD, pneumonia, UTIs, paroxysmal atrial fibrillation for which she is on Xarelto, chronic renal insufficiency and congestive heart failure, likely diastolic. She presented to the hospital with complaints of cough with copious amounts of thick dark yellow sputum, body aches and chills, as well as some altered mental status and forgetfulness. EKG on admission showed sinus rhythm with left bundle branch block, similar to EKG from November of this year. Laboratory values showed a BUN of 26, creatinine 1.5 and hemoglobin of 9.4. Troponins were found to be elevated at 0.082, 0.088 and 0.066. She does complain of some chest discomfort that she feels may be related to coughing and is tender to touch. Chest x-ray on admission showed 1. Clinical exclusion of interstitial phase pulmonary edema will be useful. If excluded clinically, the interstitial pattern is chronic. And 2. Suspect basilar bronchopneumonia, particularly so in the right. Upon examination, patient is resting comfortably in bed. She is afebrile at this time however T-max since admission was 101.2F. She continues to complain of a cough with thick yellow sputum. She is currently in no distress and denies complaints of any pain at this time. Past Medical History Past Medical History: Coronary Artery Disease (CAD), Chest Pain / Angina, COPD, CVA/TIA, Diabetes Mellitus, GERD/Reflux, Hearing Disorder / Deafness, Hyperlipidemia, Hypertension, Myocardial Infarction (CT), Osteoarthritis (OA), Pneumonia Additional Past Medical History / Comment(s): anemia, eczema, constipation, TIA X 3, esophageal dilation due to issues swallowing Last Myocardial Infarction Date:: 1998, 09/21/17 History of Any Multi-Drug Resistant Organisms: VRE Date of last positivie culture/infection: 10/07/17 MDRO Source:: VRE URINE Past Surgical History: Cholecystectomy, Heart Catheterization With Stent Additional Past Surgical History / Comment(s): cataracts w/ lens implants, 2 ovary removed, heart caths :04/30/96 stent to rca, 03/18/2000 stent to mid rca, stent to lad Past Anesthesia/Blood Transfusion Reactions: Previous Problems w/ Anesthesia Additional Past Anesthesia/Blood Transfusion Reaction / Comment(s): difficulty breathing after anesthesia Date of Last Stent Placement:: 06/2017 Past Psychological History: Depression Additional Psychological History / Comment(s): Pt resides in an apartment at [facility]. She ambulates with a walker. Her daughter is very helpful and is in an apt above her. has chore person from [employer] on [email or web address]. She no longer drives, family takes her to [employer]. she cooks and manages her own medication. Smoking Status: Former smoker Past Alcohol Use History: None Reported Additional Past Alcohol Use History / Comment(s): Patient has history of smoking 3 packs per day started smoking at age 16 and quit in 1997 Past Drug Use History: None Reported - Past Family History Father History Unknown: Yes Family Medical History: Myocardial Infarction (CT) Mother History Unknown: Yes Family Medical History: Myocardial Infarction (CT) Additional Family Medical History / Comment(s): Mother of a CT at about age 80yrs. Medications and Allergies Home Medications Medication Instructions Recorded Confirmed Type HYDROcodone/APAP 5-325MG [[place] 1 tab PO Q6H PRN 02/02/14 05/14/18 History 5-325] Omeprazole [PriLOSEC] 20 mg PO AC-BRKFST 02/02/14 05/14/18 History amLODIPine BESYLATE [Norvasc] 5 mg PO HS 02/02/14 05/14/18 History Ipratropium-Albuterol Nebulize 3 ml INHALATION RT-TID PRN 08/20/16 05/14/18 History [Duoneb 0.5 mg-3 mg/3 ml Soln] Montelukast [Singulair] 10 mg PO DAILY 05/17/17 05/14/18 History Fluticasone/Salmeterol [Advair 1 puff INHALATION RT-BID 05/18/17 05/14/18 History 250-50 Diskus] Metoprolol Tartrate [Lopressor] 100 mg PO BID 07/18/17 05/14/18 History Sennosides [Senna] 8.6 mg PO HS 07/18/17 05/14/18 History Atorvastatin [Lipitor] 40 mg PO HS #30 tab 07/23/17 05/14/18 Rx Nitroglycerin Sl Tabs [Nitrostat] 0.4 mg SUBLINGUAL Q5M PRN #25 tab 07/23/17 Rx Isosorbide Mononitrate ER [Imdur] 30 mg PO DAILY #30 tab.er.24h 09/23/17 Rx Oxazepam [Serax] 15 mg PO BID #60 capsule 10/02/17 05/14/18 Rx Clopidogrel [Plavix] 75 mg PO DAILY@1900 12/11/17 05/14/18 History Rivaroxaban [Xarelto] 15 mg PO DAILY@1900 12/11/17 05/14/18 History Acetaminophen [Tylenol] 1,000 mg PO Q4-6H PRN 05/14/18 05/14/18 History Cholecalciferol [Vitamin D3] 3,000 unit PO DAILY 05/14/18 05/14/18 History Insulin Detemir [Levemir Flextouch] 8 unit SQ DAILY@1430 05/14/18 05/14/18 History Multivitamin [Multivitamins Adult 1 tab PO DAILY 05/14/18 05/14/18 History Gummies] Allergies Allergy/AdvReac Type Severity Reaction Status Date / Time amoxicillin trihydrate Allergy Unknown Verified 05/14/18 15:15 [From Augmentin] clindamycin HCl Allergy Unknown Verified 05/14/18 15:15 [From Cleocin] clindamycin palmitate HCl Allergy Unknown Verified 05/14/18 15:15 [From Cleocin] clindamycin phosphate Allergy Unknown Verified 05/14/18 15:15 [From Cleocin] codeine Allergy Unknown Verified 05/14/18 15:15 lorazepam [From Ativan] Allergy Confusion Verified 05/14/18 15:15 nitrofurantoin Allergy Unknown Verified 05/14/18 15:15 [From Macrobid] nitrofurantoin Allergy Unknown Verified 05/14/18 15:15 macrocrystalline [From Macrobid] Penicillins Allergy Unknown Verified 05/14/18 15:15 potassium clavulanate Allergy Unknown Verified 05/14/18 15:15 [From Augmentin] prednisone Allergy Unknown Verified 05/14/18 15:15 quinine Allergy Unknown Verified 05/14/18 15:15 Sulfa (Sulfonamide Allergy Unknown Verified 05/14/18 15:15 Antibiotics) sulfamethoxazole Allergy Unknown Verified 05/14/18 15:15 [From Bactrim] trimethoprim [From Bactrim] Allergy Unknown Verified 05/14/18 15:15 Physical Exam Vitals: Vital Signs Temp Pulse Pulse Resp BP BP Pulse Ox 05/15/18 04:00 98.5 F 83 19 145/80 97 05/14/18 23:02 87 19 05/14/18 23:01 97.6 F 87 19 169/71 98 05/14/18 20:00 88 19 05/14/18 19:57 97.7 F 85 18 123/58 94 L 05/14/18 18:56 98.2 F 87 18 136/61 93 L 05/14/18 18:21 97.7 F 85 18 123/58 94 L 05/14/18 17:20 100.0 F H 86 22 142/66 93 L 05/14/18 15:44 101.2 F H 86 18 152/67 97 05/14/18 13:10 100.1 F H 87 18 134/80 96 Intake and Output 05/14/18 05/15/18 05/15/18 22:59 06:59 14:59 Intake Total 300 240 Balance 300 240 Intake: Oral 300 240 Other: Voiding Method Toilet Toilet # Voids 1 1 # Bowel Movements 1 Weight 57.2 kg 57.2 kg PHYSICAL EXAMINATION: HEENT: [Head is atraumatic, normocephalic. Pupils equal, round. Neck is supple. There is no elevated jugular venous pressure.] HEART EXAMINATION: [Heart sounds regular, S1 and S2 with a holosystolic murmur.] CHEST EXAMINATION:[ Lungs reveal diminished air entry with coarse expiratory wheezing. No chest wall tenderness is noted on palpation or with deep breathing. ] ABDOMEN: [ Soft, nontender. Bowel sounds are heard. No organomegaly noted]. EXTREMITIES:[ 2+ peripheral pulses with no evidence of peripheral edema and no calf tenderness noted]. NEUROLOGIC [patient is awake, alert and oriented x3. Short-term memory loss noted.] . Results 05/14/18 14:10 05/14/18 14:10 Cardiac Enzymes 05/14/18 05/14/18 05/14/18 Range/Units 14:10 14:10 19:59 AST 26 (14-36) U/L CK-MB (CK-2) 1.3 1.4 (0.0-2.4) ng/mL Troponin I 0.082 H* 0.088 H* (0.000-0.034) ng/mL 05/15/18 Range/Units 03:21 AST (14-36) U/L CK-MB (CK-2) 1.6 (0.0-2.4) ng/mL Troponin I 0.066 H* (0.000-0.034) ng/mL Coagulation 05/14/18 Range/Units 14:10 PT 10.3 (9.0-12.0) sec APTT 28.1 (22.0-30.0) sec Lipids 05/15/18 Range/Units 03:21 Triglycerides 89 (<150) mg/dL Cholesterol 129 (<200) mg/dL HDL Cholesterol 56 (40-60) mg/dL CBC 05/14/18 Range/Units 14:10 WBC 14.4 H (3.8-10.6) k/uL RBC 3.40 L (3.80-5.40) m/uL Hgb 9.4 L (11.4-16.0) gm/dL Hct 29.6 L (34.0-46.0) % Plt Count 358 (150-450) k/uL Comprehensive Metabolic Panel 05/14/18 Range/Units 14:10 Sodium 140 (137-145) mmol/L Potassium 4.9 (3.5-5.1) mmol/L Chloride 108 H (98-107) mmol/L Carbon Dioxide 23 (22-30) mmol/L BUN 26 H (7-17) mg/dL Creatinine 1.50 H (0.52-1.04) mg/dL Glucose 128 H (74-99) mg/dL Calcium 9.5 (8.4-10.2) mg/dL AST 26 (14-36) U/L ALT 23 (9-52) U/L Alkaline Phosphatase 69 (38-126) U/L Total Protein 7.1 (6.3-8.2) g/dL Albumin 3.7 (3.5-5.0) g/dL Current Medications Generic Name Dose Route Start Last Admin Trade Name Freq PRN Reason Stop Dose Admin Acetaminophen 1,000 mg 05/14/18 17:55 Tylenol Tab PO Q4H PRN Pain Hydrocodone Bitart/Acetaminophen 1 each 05/14/18 17:55 05/15/18 00:22 [place] 5-325 PO 1 each Q6H PRN Administration Moderate Pain Albuterol/Ipratropium 3 ml 05/14/18 17:55 05/15/18 08:24 Duoneb 0.5 Mg-3 Mg/3 Ml Soln INHALATION 3 ml RT-TID PRN Administration Shortness Of Breath Amlodipine Besylate 5 mg 05/14/18 21:00 05/14/18 19:47 Norvasc PO 5 mg HS [facility]ENRY Administration Aspirin 325 mg 05/15/18 09:00 Aspirin PO DAILY [facility] Atorvastatin Calcium 40 mg 05/14/18 21:00 05/14/18 19:47 Lipitor PO 40 mg HS [facility] Administration Budesonide/Formoterol Fumarate 2 puff 05/14/18 20:00 05/15/18 08:24 Symbicort 80-4.5 Mcg Inhaler INHALATION 2 puff RT-BID [facility] Administration Cholecalciferol 3,000 unit 05/15/18 09:00 Vitamin D3 PO DAILY [facility] Clopidogrel Bisulfate 75 mg 05/14/18 19:00 05/14/18 19:47 Plavix PO 75 mg DAILY@1900 [facility] Administration Insulin Aspart 0 unit 05/14/18 21:00 05/15/18 06:08 Novolog SQ Not Given [facility] Protocol Insulin Detemir 8 unit 05/15/18 14:30 Levemir SQ DAILY@1430 [facility] Isosorbide Mononitrate 30 mg 05/15/18 09:00 Imdur PO DAILY [facility] Metoprolol Tartrate 100 mg 05/14/18 21:00 05/14/18 19:48 Lopressor PO 100 mg BID [facility] Administration Montelukast Sodium 10 mg 05/15/18 09:00 Singulair PO DAILY [facility] Morphine Sulfate 2 mg 05/14/18 17:51 Morphine Sulfate (Inj) IVP Q5M PRN Chest Pain Multivitamins 1 each 05/15/18 12:00 Theragran PO DAILY@1200 [facility] Nitroglycerin 0.4 mg 05/14/18 17:51 Nitrostat SUBLINGUAL Q5M PRN Chest Pain Nitroglycerin 0.4 mg 05/14/18 17:55 Nitrostat SUBLINGUAL Q5M PRN Chest Pain Non-Formulary Medication 15 mg 05/14/18 21:00 05/14/18 19:48 Oxazepam [Serax] PO Not Given BID [facility] Pantoprazole Sodium 40 mg 05/15/18 07:30 05/15/18 06:26 Protonix PO 40 mg AC-BRKFST [facility] Administration Rivaroxaban 15 mg 05/14/18 19:00 05/14/18 19:47 Xarelto PO 15 mg DAILY@1900 [facility] Administration Senna 8.6 mg 05/14/18 21:00 05/14/18 19:48 Senokot PO 8.6 mg HS [facility] Administration Intake and Output 05/14/18 05/15/18 05/15/18 22:59 06:59 14:59 Intake Total 300 240 Balance 300 240 Intake: Oral 300 240 Other: Voiding Method Toilet Toilet # Voids 1 1 # Bowel Movements 1 Weight 57.2 kg 57.2 kg 05/14/18 14:10 05/14/18 14:10 EKG Interpretations (text) Sinus rhythm with a left bundle branch block Assessment and Plan Assessment: #1 fever, likely secondary to bronchopneumonia #2 abnormal troponins #3 chronic anemia #4 chronic renal insufficiency #5 paroxysmal atrial fibrillation #[address] #7 history of CAD with most recent stent placement in June [id number] and prior stent placement to RCA Plan: From cardiology perspective, we will obtain a 2-D echo with Doppler. Patient requires treatment for underlying pneumonia. At this time we'll continue current medical management. We'll continue to monitor the patient and provide further recommendations accordingly. RN LPN LVN note has been reviewed, I agree with a documented findings and plan of care. Patient was seen and examined.
[2018-05-15 09:34] LABS: Basophils % (A) 0 %; Eosinophils # (A) 0.3 k/uL (0-0.7); Eosinophils % (A) 2 %; HCT 28.4 % (34.0-46.0); HGB 8.7 gm/dL (11.4-16.0); Hypochromasia Marked; Lymphocytes # (A) 2.3 k/uL (1.0-4.8); Lymphocytes % (A) 19 %; MCH 27.4 pg (25.0-35.0); MCHC 30.6 g/dL (31.0-37.0); MCV 89.6 fL (80.0-100.0); Mean Platelet Volume 7.2; Monocytes # (A) 0.8 k/uL (0-1.0); Monocytes % (A) 7 %; Neutrophils # (A) 8.8 k/uL (1.3-7.7); Neutrophils % (A) 70 %; Platelet Count 323 k/uL (150-450); RBC 3.17 m/uL (3.80-5.40); RDW 14.6 % (11.5-15.5); WBC 12.5 k/uL (3.8-10.6)
[2018-05-15 11:46] LABS: Glucose,Whole Blood 163 mg/dL (75-99)
--- NOTE | 2018-05-15 12:54 | ECHOF ---
Referral Reason:elevated troponin MEASUREMENTS -------- HEIGHT: 149.9 cm WEIGHT: 57.2 kg BP: 145/80 IVSd: 1.2 cm (0.6 - 1.1) LVIDd: 3.0 cm (3.9 - 5.3) LVPWd: 1.3 cm (0.6 - 1.1) IVSs: 1.4 cm LVIDs: 1.8 cm LVPWs: 1.5 cm LAESV Index (A-L): 34.77 ml/m Ao Diam: 2.7 cm (2.0 - 3.7) AV Cusp: 0.8 cm (1.5 - 2.6) LA Diam: 3.6 cm (2.7 - 3.8) MV E Isacc: 1.02 m/s MV DecT: 337 ms MV A Isacc: 1.42 m/s MV E/A Ratio: 0.72 AV maxP.35 mmHg AV meanP.39 mmHg RAP: 5.00 mmHg RVSP: 16.76 mmHg FINDINGS -------- Sinus rhythm. This was a technically adequate study. The left ventricular size is normal. There is mild concentric left ventricular hypertrophy. Overa ll left ventricular systolic function is normal with, an EF between 55 - 60 %. The right ventricle is normal in size and function. LA is moderately dilated 34-39 ml/m2 The right atrium is normal in size. There is moderate aortic valve sclerosis. There is no evidence of aortic regurgitation. There is moderate aortic stenosis present. Peak/mean gradient across the Aortic Valve is 38.35mmHg / 24.39mm Hg. Mild mitral annular calcification present. Moderate mitral regurgitation is present. Mild tricuspid regurgitation present. There is no evidence of pulmonary hypertension. The right v entricular systolic pressure, as measured by Doppler, is 16.76mmHg. The pulmonic valve was not well visualized. There is no pulmonic regurgitation present. The aortic root size is normal. Normal inferior vena cava with normal inspiratory collapse consistent with estimated right atrial pre ssure of 5 mmHg. There is no pericardial effusion. CONCLUSIONS -------- 1. Sinus rhythm. 2. This was a technically adequate study. 3. The left ventricular size is normal. 4. There is mild concentric left ventricular hypertrophy. 5. Overall left ventricular systolic function is normal with, an EF between 55 - 60 %. 6. LA is moderately dilated 34-39 ml/m2 7. There is moderate aortic valve sclerosis. 8. There is moderate aortic stenosis present. 9. Peak/mean gradient across the Aortic Valve is 38.35mmHg / 24.39mmHg. 10. Mild mitral annular calcification present. 11. Moderate mitral regurgitation is present. 12. Mild tricuspid regurgitation present. 13. There is no evidence of pulmonary hypertension. 14. The pulmonic valve was not well visualized. 15. There is no pulmonic regurgitation present. 16. The aortic root size is normal. 17. There is no pericardial effusion. CONTROL DIRECTOR: Clinton Cho RDCS
--- NOTE | 2018-05-15 13:08 | P.CNPUL ---
History of Present Illness Consult date: 05/15/18 Reason for consult: dyspnea, pneumonia History of present illness: 88-year-old female patient coming in with cough and congestion and production of excessive amount of thick yellowish sputum and addition to a low-grade fever. In addition the patient is been having low-grade diarrhea on and off for the past 3 months. She has multiple medical problems and comorbidities most significant of which is coronary artery disease and previous OK. She also suffers from chronic renal failure. Cardiology and nephrology of both consulted regarding these issues. The chest x-ray from from today shows stable interstitial changes bilaterally, likely chronic and there is no acute airspace disease or pneumonia identified. EKG showing a left bundle branch block pattern with a sinus rhythm and first-degree AV block. Enemas troponin leak was also noted and cardiology is following up the case. White cell count is borderline elevated at 14.4 at time of admission. Correlation profile is within normal limits. Creatinine is at 1.5 with a GFR of 31. Review of Systems Constitutional: Reports fatigue, Reports fever Eyes: denies blurred vision, denies bulging eye, denies decreased vision Ears: deny: decreased hearing, ear discharge, earache, tinnitus Ears, nose, mouth and throat: Denies headache, Denies sore throat Cardiovascular: Reports dyspnea on exertion, Reports shortness of breath Respiratory: Reports cough with sputum, Reports dyspnea Gastrointestinal: Denies abdominal pain, Denies diarrhea, Denies nausea, Denies vomiting Genitourinary: Reports as per HPI Musculoskeletal: Denies myalgias Musculoskeletal: absent: ankle pain, ankle stiffness, ankle swelling Integumentary: Denies pruritus, Denies rash Neurological: Reports weakness Psychiatric: Reports as per HPI Endocrine: Reports as per HPI Hematologic/Lymphatic: Reports as per HPI Allergic/Immunologic: Reports as per HPI Past Medical History Past Medical History: Coronary Artery Disease (CAD), Chest Pain / Angina, COPD, CVA/TIA, Diabetes Mellitus, GERD/Reflux, Hearing Disorder / Deafness, Hyperlipidemia, Hypertension, Myocardial Infarction (OK), Osteoarthritis (OA), Pneumonia Additional Past Medical History / Comment(s): COPD, coronary artery disease, CHF with diastolic dysfunction, previous coronary intervention and stenting of RCA, hypertension, hyperlipidemia, diabetes mellitus, bruxism and HDL fibrillation, left bundle branch block pattern, chronic renal failure, chronic anemia anemia, eczema, constipation, TIA X 3, esophageal stricture with esophageal dilation due to issues swallowing Last Myocardial Infarction Date:: 1998, 09/21/17 History of Any Multi-Drug Resistant Organisms: VRE Date of last positivie culture/infection: 10/07/17 MDRO Source:: VRE URINE Past Surgical History: Cholecystectomy, Heart Catheterization With Stent Additional Past Surgical History / Comment(s): cataracts w/ lens implants, 2 ovary removed, heart caths :04/30/96 stent to rca, 03/18/2000 stent to mid rca, stent to lad Past Anesthesia/Blood Transfusion Reactions: Previous Problems w/ Anesthesia Additional Past Anesthesia/Blood Transfusion Reaction / Comment(s): difficulty breathing after anesthesia Date of Last Stent Placement:: 06/2017 Past Psychological History: Depression Additional Psychological History / Comment(s): Pt resides in an apartment at [facility]. She ambulates with a walker. Her daughter is very helpful and is in an apt above her. has chore person from [employer]. She no longer drives, family takes her to [facility]. she cooks and manages her own medication. Smoking Status: Former smoker Past Alcohol Use History: None Reported Additional Past Alcohol Use History / Comment(s): Patient has history of smoking 3 packs per day started smoking at age 16 and quit in 1997 Past Drug Use History: None Reported - Past Family History Father History Unknown: Yes Family Medical History: Myocardial Infarction (OK) Mother History Unknown: Yes Family Medical History: Myocardial Infarction (OK) Additional Family Medical History / Comment(s): Mother of a OK at about age 80yrs. Medications and Allergies Home Medications Medication Instructions Recorded Confirmed Type HYDROcodone/APAP 5-325MG [Alvord 1 tab PO Q6H PRN 02/02/14 05/14/18 History 5-325] Omeprazole [PriLOSEC] 20 mg PO AC-BRKFST 02/02/14 05/14/18 History amLODIPine BESYLATE [Norvasc] 5 mg PO HS 02/02/14 05/14/18 History Ipratropium-Albuterol Nebulize 3 ml INHALATION RT-TID PRN 08/20/16 05/14/18 History [Duoneb 0.5 mg-3 mg/3 ml Soln] Montelukast [Singulair] 10 mg PO DAILY 05/17/17 05/14/18 History Fluticasone/Salmeterol [Advair 1 puff INHALATION RT-BID 05/18/17 05/14/18 History 250-50 Diskus] Metoprolol Tartrate [Lopressor] 100 mg PO BID 07/18/17 05/14/18 History Sennosides [Senna] 8.6 mg PO HS 07/18/17 05/14/18 History Atorvastatin [Lipitor] 40 mg PO HS #30 tab 07/23/17 05/14/18 Rx Nitroglycerin Sl Tabs [Nitrostat] 0.4 mg SUBLINGUAL Q5M PRN #25 tab 07/23/17 Rx Isosorbide Mononitrate ER [Imdur] 30 mg PO DAILY #30 tab.er.24h 09/23/17 Rx Oxazepam [Serax] 15 mg PO BID #60 capsule 10/02/17 05/14/18 Rx Clopidogrel [Plavix] 75 mg PO DAILY@0 12/11/17 05/14/18 History Rivaroxaban [Xarelto] 15 mg PO DAILY@1900 12/11/17 05/14/18 History Acetaminophen [Tylenol] 1,000 mg PO Q4-6H PRN 05/14/18 05/14/18 History Cholecalciferol [Vitamin D3] 3,000 unit PO DAILY 05/14/18 05/14/18 History Insulin Detemir [Levemir Flextouch] 8 unit SQ DAILY@1430 05/14/18 05/14/18 History Multivitamin [Multivitamins Adult 1 tab PO DAILY 05/14/18 05/14/18 History Gummies] Allergies Allergy/AdvReac Type Severity Reaction Status Date / Time amoxicillin trihydrate Allergy Unknown Verified 05/14/18 15:15 [From Augmentin] clindamycin HCl Allergy Unknown Verified 05/14/18 15:15 [From Cleocin] clindamycin palmitate HCl Allergy Unknown Verified 05/14/18 15:15 [From Cleocin] clindamycin phosphate Allergy Unknown Verified 05/14/18 15:15 [From Cleocin] codeine Allergy Unknown Verified 05/14/18 15:15 lorazepam [From Ativan] Allergy Confusion Verified 05/14/18 15:15 nitrofurantoin Allergy Unknown Verified 05/14/18 15:15 [From Macrobid] nitrofurantoin Allergy Unknown Verified 05/14/18 15:15 macrocrystalline [From Macrobid] Penicillins Allergy Unknown Verified 05/14/18 15:15 potassium clavulanate Allergy Unknown Verified 05/14/18 15:15 [From Augmentin] prednisone Allergy Unknown Verified 05/14/18 15:15 quinine Allergy Unknown Verified 05/14/18 15:15 Sulfa (Sulfonamide Allergy Unknown Verified 05/14/18 15:15 Antibiotics) sulfamethoxazole Allergy Unknown Verified 05/14/18 15:15 [From Bactrim] trimethoprim [From Bactrim] Allergy Unknown Verified 05/14/18 15:15 Physical Exam Vitals: Vital Signs Temp Pulse Pulse Resp BP BP Pulse Ox 05/15/18 12:00 97.7 F 75 18 129/62 96 05/15/18 08:26 97 05/15/18 08:00 97.8 F 80 18 145/65 95 05/15/18 04:00 98.5 F 83 19 145/80 97 05/14/18 23:02 87 19 05/14/18 23:01 97.6 F 87 19 169/71 98 05/14/18 20:00 88 19 05/14/18 19:57 97.7 F 85 18 123/58 94 L 05/14/18 18:56 98.2 F 87 18 136/61 93 L 05/14/18 18:21 97.7 F 85 18 123/58 94 L 05/14/18 17:20 100.0 F H 86 22 142/66 93 L 05/14/18 15:44 101.2 F H 86 18 152/67 97 05/14/18 13:10 100.1 F H 87 18 134/80 96 Intake and Output 05/14/18 05/15/18 05/15/18 22:59 06:59 14:59 Intake Total 300 240 Balance 300 240 Intake: Oral 300 240 Other: Voiding Method Toilet Toilet Toilet # Voids 1 1 2 # Bowel Movements 1 Weight 57.2 kg 57.2 kg Gen. appearance, comfortable , no in acute distress Head exam was generally normal. There was no scleral icterus or corneal arcus. Mucous membranes were moist. Neck was supple and without jugular venous distension, thyromegaly, or carotid bruits. Carotids were easily palpable bilaterally. There was no adenopathy. Lungs sounds are diminished bilaterally along with scattered expiratory wheezes heard throughout the lung scruggs. Cardiac exam revealed the PMI to be normally situated and sized. The rhythm was regular and no extrasystoles were noted during several minutes of auscultation. The first and second heart sounds were normal and physiologic splitting of the second heart sound was noted. There were no murmurs, rubs, clicks, or gallops. Abdominal exam revealed normal bowel sounds. The abdomen was soft, non-tender, and without masses, organomegaly, or appreciable enlargement of the abdominal aorta. Examination of the extremities revealed easily palpable radial, femoral and pedal pulses. There was no cyanosis, clubbing or edema. Examination of the skin revealed no evidence of significant rashes, suspicious appearing nevi or other concerning lesions. Neurologically awake and alert and there is no focal neurological deficit. Results - Laboratory Findings CBC and BMP: 05/15/18 03:21 05/14/18 14:10 PT/INR, D-dimer PT 10.3 sec (9.0-12.0) 05/14/18 14:10 INR 1.1 (<1.2) 05/14/18 14:10 Abnormal lab findings: Abnormal Labs 05/14/18 05/14/18 05/14/18 14:10 14:10 14:10 WBC 14.4 H RBC 3.40 L Hgb 9.4 L Hct 29.6 L MCHC Neutrophils # 10.8 H Chloride 108 H BUN 26 H Creatinine 1.50 H Glucose 128 H POC Glucose (mg/dL) Hemoglobin A1c Troponin I 0.082 H* Urine Protein Urine Opiates Screen U Benzodiazepines Scrn 05/14/18 05/14/18 05/14/18 15:49 16:03 19:59 WBC RBC Hgb Hct MCHC Neutrophils # Chloride BUN Creatinine Glucose POC Glucose (mg/dL) 125 H Hemoglobin A1c Troponin I 0.088 H* Urine Protein 2+ H Urine Opiates Screen Detected H U Benzodiazepines Scrn Detected H 05/14/18 05/14/18 05/15/18 19:59 20:53 03:21 WBC RBC Hgb Hct MCHC Neutrophils # Chloride BUN Creatinine Glucose POC Glucose (mg/dL) 142 H Hemoglobin A1c 6.2 H Troponin I 0.066 H* Urine Protein Urine Opiates Screen U Benzodiazepines Scrn 05/15/18 05/15/18 05/15/18 03:21 06:04 11:25 WBC 12.5 H RBC 3.17 L Hgb 8.7 L Hct 28.4 L MCHC 30.6 L Neutrophils # 8.8 H Chloride BUN Creatinine Glucose POC Glucose (mg/dL) 119 H 163 H Hemoglobin A1c Troponin I Urine Protein Urine Opiates Screen U Benzodiazepines Scrn - Diagnostic Findings Chest x-ray: image reviewed Assessment and Plan Plan: Assessment 1 acute bronchitis, possible pneumonia involving the right lower lobe although this is not clearly identified and it current chest x-ray 2 fever 3 shortness of breath secondary to above 4 COPD exacerbation secondary to above 5 coronary artery disease with previous coronary intervention and stenting involving the RCA and LAD 6 CHF with diastolic dysfunction 7 hypertension 8 hyperlipidemia 9 diabetes mellitus 10 paroxysmal atrial fibrillation 11 left bundle branch block pattern 12 chronic renal failure 13 chronic anemia related to renal failure Plan Obtain sputum Gram stain and culture. Continue DuoNeb neb last 2 minutes around -the-clock. Add Rocephin and Zithromax. Resume outpatient medications. Nephrology consultation. Cardiology consultation. We'll continue to follow.
[2018-05-15] MEDS ORDERED: IPRATROPIUM-ALBUTEROL 3 ML NEB INHALATION PRN (15:00)
[2018-05-15] MEDS ORDERED: MORPHINE ORAL SOLN 10 MG/5 ML CUP PO PRN (16:05)
[2018-05-15] MEDS: AZITHROMYCIN 500 MG TAB PO SCH (16:20)
[2018-05-15] MEDS: IPRATROPIUM-ALBUTEROL 3 ML NEB INHALATION SCH ×2 (16:20→20:07)
[2018-05-15] MEDS: cefTRIAXone IN SWFI 1,000 MG/10 ML SYRINGE IVP SCH (16:20)
[2018-05-15] MEDS: INSULIN DETEMIR 100 UNIT/ML 10 ML VIAL SQ SCH (16:20)
[2018-05-15 16:42] LABS: Glucose,Whole Blood 164 mg/dL (75-99)
[2018-05-15] MEDS: RIVAROXABAN 15 MG TAB PO SCH (18:57)
[2018-05-15] MEDS: CLOPIDOGREL 75 MG TAB PO SCH (18:58)
[2018-05-15 20:47] LABS: Glucose,Whole Blood 138 mg/dL (75-99)
[2018-05-15] MEDS: SENNOSIDES 8.6 MG TAB PO SCH (21:40)
[2018-05-15] MEDS: amLODIPine 5 MG TAB PO SCH (21:40)
[2018-05-15] MEDS: ATORVASTATIN 40 MG TAB PO SCH (21:40)
[2018-05-16 05:44] LABS: Glucose,Whole Blood 102 mg/dL (75-99)
[2018-05-16] MEDS: INSULIN ASPART 100 UNIT/ML 1 ML 10 ML VIAL SQ SCH ×4 (06:10→21:11)
[2018-05-16] MEDS: PANTOPRAZOLE 40 MG TABLET PO SCH (06:12)
[2018-05-16 06:28] LABS: HCT 28.6 % (34.0-46.0); HGB 8.5 gm/dL (11.4-16.0); Hypochromasia Slight; MCH 26.4 pg (25.0-35.0); MCHC 29.9 g/dL (31.0-37.0); MCV 88.4 fL (80.0-100.0); Mean Platelet Volume 6.8; Platelet Count 356 k/uL (150-450); RBC 3.23 m/uL (3.80-5.40); RDW 14.5 % (11.5-15.5); WBC 8.9 k/uL (3.8-10.6)
[2018-05-16] MEDS: IPRATROPIUM-ALBUTEROL 3 ML NEB INHALATION SCH ×4 (07:00→19:08)
[2018-05-16] MEDS: SYMBICORT 80-4.5 MCG INHALER INHALATION SCH ×2 (07:00→19:08)
[2018-05-16] MEDS: METOPROLOL TARTRATE 50 MG TAB PO SCH ×2 (08:31→20:39)
[2018-05-16] MEDS: MONTELUKAST 10 MG TAB PO SCH (08:31)
[2018-05-16] MEDS: AZITHROMYCIN 500 MG TAB PO SCH (08:31)
[2018-05-16] MEDS: CHOLECALCIFEROL 1,000 UNIT TAB PO SCH (08:31)
[2018-05-16] MEDS: ISOSORBIDE MONONITRATE ER 30 MG TAB.ER.24H PO SCH (08:31)
[2018-05-16] MEDS: MULTIVITAMINS, THERA 1 EACH TAB PO SCH (08:32)
--- NOTE | 2018-05-16 08:39 | P.PN ---
Subjective Progress Note Date: 05/16/18 Principal diagnosis: This is a 88-year-old female known to us with chronic kidney disease came in with 3 months of diarrhea, weight loss of 20 pounds coughing and bronchitis. She is also known with COPD. She is better today. Her appetite is improved although some nausea remains. Cough is improved and is almost dry now. She is able to walk without any dizziness. She is known with coronary artery disease, COPD, diabetes, severe hearing loss, past history of heart catheterization and VT and recurrent UTI. Objective - Vital Signs Vital signs: Vital Signs Temp 96.8 F L 05/16/18 04:00 Pulse 80 05/16/18 07:10 Resp 14 05/16/18 04:00 BP 131/58 05/16/18 04:00 Pulse Ox 96 05/16/18 04:00 Intake & Output 05/15/18 05/16/18 05/16/18 18:59 06:59 18:59 Intake Total 240 Balance 240 Weight 57.2 kg Intake: Oral 240 Other: Voiding Method Toilet Toilet # Voids 5 3 Exam she is awake alert oriented comfortable heart of hearing. HEENT exam no JVP neck is supple no facial asymmetry Lungs are clear to auscultation percussion good air entry bilaterally Heart sounds are unremarkable for any murmur rub gallop Abdomen soft nontender no masses felt Extremity examination was no edema Neurologically awake alert oriented. - Labs CBC & Chem 7: 05/16/18 05:45 05/14/18 14:10 Labs: Abnormal Lab Results - Last 24 Hours (Table) 05/15/18 05/15/18 05/15/18 Range/Units 03:21 11:25 16:40 WBC 12.5 H (3.8-10.6) k/uL RBC 3.17 L (3.80-5.40) m/uL Hgb 8.7 L (11.4-16.0) gm/dL Hct 28.4 L (34.0-46.0) % MCHC 30.6 L (31.0-37.0) g/dL Neutrophils # 8.8 H (1.3-7.7) k/uL POC Glucose (mg/dL) 163 H 164 H (75-99) mg/dL 05/15/18 05/16/18 05/16/18 Range/Units 20:45 05:42 05:45 WBC (3.8-10.6) k/uL RBC 3.23 L (3.80-5.40) m/uL Hgb 8.5 L (11.4-16.0) gm/dL Hct 28.6 L (34.0-46.0) % MCHC 29.9 L (31.0-37.0) g/dL Neutrophils # (1.3-7.7) k/uL POC Glucose (mg/dL) 138 H 102 H (75-99) mg/dL Microbiology - Last 24 Hours (Table) 05/14/18 15:49 Urine Culture - Preliminary Urine,Voided Gram Neg Bacilli 05/15/18 13:10 Gram Stain - Preliminary Sputum Sputum Culture - Preliminary 05/14/18 15:40 Blood Culture - Preliminary Blood No Growth after 24 hours Assessment and Plan Assessment: Impression 1. Chronic kidney disease Baseline creatinine of 1.3-1.5 currently admitted with a creatinine of 1.5. Diabetic nephropathy 2+ proteinuria. 2. Admitted with loose stools for 3 months with weight loss of 20 pounds, appetite improved 3. History of COPD. Chest x-ray shows no new findings 4. History of ASHD with cardiac catheterization. Echocardiogram shows ejection fraction 55% 5. On anticoagulation. 6. Anemia with hemoglobin 9.4 >8.5, etiology chronic kidney disease rule out an deficiency. 7. Dependency on narcotics. 8. Hypertension blood pressure is nearly at goal Recommendation. 1. Maintain blood pressure between 110s 1:30 2. Will watch her blood pressure on current medications. She is currently on amlodipine. 3. She's not on any Yusef inhibitors or ARB will look into her office records and see if there is any history of hyperkalemia. 4. Monitor labs, repeat renal profile today. 5. Check iron saturation Thank you for this consultation and continue to follow with you
[2018-05-16 08:47] LABS: Calcium 9.4 mg/dL (8.4-10.2)
[2018-05-16] MEDS: OXAZEPAM 15 MG PO SCH ×2 (10:18→20:39)
--- NOTE | 2018-05-16 11:05 | P.PN ---
Subjective Progress Note Date: 05/16/18 This a pleasant 88-year-old female patient who follows with Dr. ANDRADE Nunez in the office. She has a known history of coronary artery disease with prior stenting of the RCA and most recently the LAD in June 2017. Most recent cardiac catheterization in August 2017 showed patent LAD stent with mild to moderate restenosis in stenosis of the RCA that was unchanged compared to prior study in June 2017 as well as mild disease in the circumflex. She also has a history of COPD, pneumonia, UTIs, paroxysmal atrial fibrillation for which she is on Xarelto, chronic renal insufficiency and congestive heart failure, likely diastolic. She presented to the hospital with complaints of cough with copious amounts of thick dark yellow sputum, body aches and chills, as well as some altered mental status and forgetfulness. EKG on admission showed sinus rhythm with left bundle branch block, similar to EKG from November of this year. Laboratory values showed a BUN of 26, creatinine 1.5 and hemoglobin of 9.4. Troponins were found to be elevated at 0.082, 0.088 and 0.066. She does complain of some chest discomfort that she feels may be related to coughing and is tender to touch. Chest x-ray on admission showed 1. Clinical exclusion of interstitial phase pulmonary edema will be useful. If excluded clinically, the interstitial pattern is chronic. And 2. Suspect basilar bronchopneumonia, particularly so in the right. Upon examination, patient is resting comfortably in bed. She remains afebrile. She feels that her breathing is quite a bit better and denies complaints of chest discomfort. echocardiogram showed normal LV systolic function with ejection fraction of 55- 60% and moderate aortic stenosis with moderate mitral regurgitation. Objective - Vital Signs Vital signs: Vital Signs Temp 96.8 F L 05/16/18 04:00 Pulse 80 05/16/18 07:10 Resp 14 05/16/18 04:00 BP 131/58 05/16/18 04:00 Pulse Ox 96 05/16/18 04:00 Intake & Output 05/15/18 05/16/18 05/16/18 18:59 06:59 18:59 Intake Total 240 Balance 240 Weight 57.2 kg Intake: Oral 240 Other: Voiding Method Toilet Toilet # Voids 5 3 - Exam PHYSICAL EXAMINATION: HEENT: [Head is atraumatic, normocephalic. Pupils equal, round. Neck is supple. There is no elevated jugular venous pressure.] HEART EXAMINATION: [Heart sounds regular, S1 and S2 with a systolic murmur.] CHEST EXAMINATION:[ Lungs revealed improved air entry throughout. No chest wall tenderness is noted on palpation or with deep breathing.] ABDOMEN: [ Soft, nontender. Bowel sounds are heard. No organomegaly noted]. EXTREMITIES:[ 2+ peripheral pulses with no evidence of peripheral edema and no calf tenderness noted]. NEUROLOGIC [patient is awake, alert and oriented x3.] . - Labs CBC & Chem 7: 05/16/18 05:45 05/16/18 05:45 Labs: Abnormal Lab Results - Last 24 Hours (Table) 05/15/18 05/15/18 05/15/18 Range/Units 03:21 11:25 16:40 WBC 12.5 H (3.8-10.6) k/uL RBC 3.17 L (3.80-5.40) m/uL Hgb 8.7 L (11.4-16.0) gm/dL Hct 28.4 L (34.0-46.0) % MCHC 30.6 L (31.0-37.0) g/dL Neutrophils # 8.8 H (1.3-7.7) k/uL BUN (7-17) mg/dL Creatinine (0.52-1.04) mg/dL POC Glucose (mg/dL) 163 H 164 H (75-99) mg/dL 05/15/18 05/16/18 05/16/18 Range/Units 20:45 05:42 05:45 WBC (3.8-10.6) k/uL RBC 3.23 L (3.80-5.40) m/uL Hgb 8.5 L (11.4-16.0) gm/dL Hct 28.6 L (34.0-46.0) % MCHC 29.9 L (31.0-37.0) g/dL Neutrophils # (1.3-7.7) k/uL BUN (7-17) mg/dL Creatinine (0.52-1.04) mg/dL POC Glucose (mg/dL) 138 H 102 H (75-99) mg/dL 05/16/18 Range/Units 05:45 WBC (3.8-10.6) k/uL RBC (3.80-5.40) m/uL Hgb (11.4-16.0) gm/dL Hct (34.0-46.0) % MCHC (31.0-37.0) g/dL Neutrophils # (1.3-7.7) k/uL BUN 26 H (7-17) mg/dL Creatinine 1.55 H (0.52-1.04) mg/dL POC Glucose (mg/dL) (75-99) mg/dL Microbiology - Last 24 Hours (Table) 05/14/18 15:49 Urine Culture - Preliminary Urine,Voided Gram Neg Bacilli 05/15/18 13:10 Gram Stain - Preliminary Sputum Sputum Culture - Preliminary 05/14/18 15:40 Blood Culture - Preliminary Blood No Growth after 24 hours Assessment and Plan Assessment: #1 fever, likely secondary to bronchopneumonia #2 abnormal troponins, likely due to a type 2 event #3 chronic anemia #4 chronic renal insufficiency #5 paroxysmal atrial fibrillation #6 history of prior NC #7 history of CAD with most recent stent placement in June [id number] and prior stent placement to RCA Plan: From cardiology perspective, we recommend continue current medications. we'll continue to follow the patient provide further recommendations accordingly. [employer]LL[employer] note has been reviewed, I agree with a documented findings and plan of care. Patient was seen and examined.
--- NOTE | 2018-05-16 11:34 | P.PN ---
Subjective Progress Note Date: 05/16/18 Principal diagnosis: Bronchitis and suspected right lower lobe pneumonia. 88-year-old female patient coming in with cough and congestion and production of excessive amount of thick yellowish sputum and addition to a low-grade fever. In addition the patient is been having low-grade diarrhea on and off for the past 3 months. She has multiple medical problems and comorbidities most significant of which is coronary artery disease and previous [place]. She also suffers from chronic renal failure. Cardiology and nephrology of both consulted regarding these issues. The chest x-ray from from today shows stable interstitial changes bilaterally, likely chronic and there is no acute airspace disease or pneumonia identified. EKG showing a left bundle branch block pattern with a sinus rhythm and first-degree AV block. Enemas troponin leak was also noted and cardiology is following up the case. White cell count is borderline elevated at 14.4 at time of admission. Correlation profile is within normal limits. Creatinine is at 1.5 with a GFR of 31. The patient is seen today 05/16/2018 in follow-up in the selective care unit. She is awake and alert in no acute distress. She denies any worsening shortness of breath. She continues with a loose nonproductive cough currently. She did provide a sputum sample which is pending from yesterday. He is maintaining good O2 saturations in the 90s on room air. He is afebrile. Hemodynamically stable. Urine culture with gram-negative bacilli. White count 8.9. Hemoglobin 8.5. Creatinine 1.55. Objective - Vital Signs Vital signs: Vital Signs Temp 97.3 F L 05/16/18 08:00 Pulse 74 05/16/18 08:00 Resp 16 05/16/18 08:00 BP 128/64 05/16/18 08:00 Pulse Ox 95 05/16/18 08:00 Intake & Output 05/15/18 05/16/18 05/16/18 18:59 06:59 18:59 Intake Total 240 120 Balance 240 120 Weight 57.2 kg Intake: Oral 240 120 Other: Voiding Method Toilet Toilet Toilet # Voids 5 3 - Exam Gen. appearance, alert, comfortable , in no acute distress Head exam was generally normal. There was no scleral icterus or corneal arcus. Mucous membranes were moist. Neck was supple and without jugular venous distension, thyromegaly, or carotid bruits. Carotids were easily palpable bilaterally. There was no adenopathy. Lungs sounds are diminished bilaterally along with scattered expiratory wheezes heard throughout the lung scruggs. Cardiac exam revealed the PMI to be normally situated and sized. The rhythm was regular and no extrasystoles were noted during several minutes of auscultation. The first and second heart sounds were normal and physiologic splitting of the second heart sound was noted. There were no murmurs, rubs, clicks, or gallops. Abdominal exam revealed normal bowel sounds. The abdomen was soft, non-tender, and without masses, organomegaly, or appreciable enlargement of the abdominal aorta. Examination of the extremities revealed easily palpable radial, femoral and pedal pulses. There was no cyanosis, clubbing or edema. Examination of the skin revealed no evidence of significant rashes, suspicious appearing nevi or other concerning lesions. Neurologically awake and alert and there is no focal neurological deficit. - Labs CBC & Chem 7: 05/16/18 05:45 05/16/18 05:45 Labs: Abnormal Lab Results - Last 24 Hours (Table) 05/15/18 05/15/18 05/15/18 Range/Units 11:25 16:40 20:45 RBC (3.80-5.40) m/uL Hgb (11.4-16.0) gm/dL Hct (34.0-46.0) % MCHC (31.0-37.0) g/dL BUN (7-17) mg/dL Creatinine (0.52-1.04) mg/dL POC Glucose (mg/dL) 163 H 164 H 138 H (75-99) mg/dL 05/16/18 05/16/18 05/16/18 Range/Units 05:42 05:45 05:45 RBC 3.23 L (3.80-5.40) m/uL Hgb 8.5 L (11.4-16.0) gm/dL Hct 28.6 L (34.0-46.0) % MCHC 29.9 L (31.0-37.0) g/dL BUN 26 H (7-17) mg/dL Creatinine 1.55 H (0.52-1.04) mg/dL POC Glucose (mg/dL) 102 H (75-99) mg/dL Microbiology - Last 24 Hours (Table) 05/14/18 15:49 Urine Culture - Preliminary Urine,Voided Gram Neg Bacilli 05/15/18 13:10 Gram Stain - Preliminary Sputum Sputum Culture - Preliminary 05/14/18 15:40 Blood Culture - Preliminary Blood No Growth after 24 hours Assessment and Plan Assessment: Assessment 1 acute bronchitis, possible pneumonia involving the right lower lobe although this is not clearly identified and it current chest x-ray and sputum culture pending. 2 fever 3 urinary tract infection with gram-negative bacilli 4 COPD exacerbation secondary to above 5 coronary artery disease with previous coronary intervention and stenting involving the RCA and LAD 6 CHF with diastolic dysfunction 7 hypertension 8 hyperlipidemia 9 diabetes mellitus 10 paroxysmal atrial fibrillation 11 left bundle branch block pattern 12 chronic renal failure 13 chronic anemia related to renal failure Plan The patient was seen and evaluated by Dr. Albarran. She is improved today as compared to yesterday. We'll continue with the current treatment plan. Possible discharge in the morning. Increase activity as tolerated. Chest x- ray in a.m. We'll continue to follow. I, the cosigning physician, performed a history & physical examination of the patient. Lungs sounds faint crackles in the posterior bases. Maintaining good O2 saturations in the 90s on room air. I discussed the assessment and plan of care with my nurse practitioner, Nargis Leon. I attest to the above note as dictated by her.
[2018-05-16 11:36] LABS: Glucose,Whole Blood 260 mg/dL (75-99)
--- NOTE | 2018-05-16 13:43 | P.PN ---
Subjective Progress Note Date: 05/16/18 Principal diagnosis: Acute bronchitis/possible pneumonia Acute exacerbation COPD UTI with gram-negative bacilli 88-year-old female patient coming in with cough and congestion and production of excessive amount of thick yellowish sputum and addition to a low-grade fever. In addition the patient is been having low-grade diarrhea on and off for the past 3 months. She has multiple medical problems and comorbidities most significant of which is coronary artery disease and previous [place]. She also suffers from chronic renal failure. Cardiology and nephrology of both consulted regarding these issues. The chest x-ray from from today shows stable interstitial changes bilaterally, likely chronic and there is no acute airspace disease or pneumonia identified. EKG showing a left bundle branch block pattern with a sinus rhythm and first-degree AV block. Enemas troponin leak was also noted and cardiology is following up the case. White cell count is borderline elevated at 14.4 at time of admission. Correlation profile is within normal limits. Creatinine is at 1.5 with a GFR of 31. 05/16/2018 She is seen and evaluated in the room at bedside; She is awake and alert in no acute distress. She denies any worsening shortness of breath. She continues with a loose nonproductive cough currently. She did provide a sputum sample which is pending from yesterday. He is maintaining good O2 saturations in the 90s on room air. He is afebrile. Hemodynamically stable. Urine culture with gram-negative bacilli. White count 8.9. Hemoglobin 8.5. Creatinine 1.55. Objective - Vital Signs Vital signs: Vital Signs Temp 97.5 F L 05/16/18 12:00 Pulse 60 05/16/18 12:00 Resp 18 05/16/18 12:00 BP 131/90 05/16/18 12:00 Pulse Ox 97 05/16/18 12:00 Intake & Output 05/15/18 05/16/18 05/16/18 18:59 06:59 18:59 Intake Total 240 620 Balance 240 620 Weight 57.2 kg Intake: Oral 240 620 Other: Voiding Method Toilet Toilet Toilet # Voids 5 3 4 - Exam - Constitutional General appearance: Present: average body habitus, cooperative, no acute distress - EENT Eyes: Present: anicteric sclerae, EOMI, PERRLA, normal appearance ENT: Present: hearing grossly normal, normal oropharynx Ears: bilateral: normal - Neck Neck: Present: normal ROM. Absent: lymphadenopathy, rigidity, thyromegaly Carotids: negative: bruit present Thyroid: bilateral: normal size, negative: enlarged, nodule - Respiratory Respiratory: bilateral: CTA, negative: rales, rhonchi, wheezing - Cardiovascular Rhythm: regular Heart sounds: normal: S1, S2 Abnormal Heart Sounds: Absent: systolic murmur, diastolic murmur - Gastrointestinal General gastrointestinal: Present: normal bowel sounds, soft. Absent: distended , organomegaly, tenderness - Genitourinary Genitourinary Comment(s): deferred - Integumentary Integumentary: Present: normal turgor. Absent: jaundiced, rash, ulcer - Neurologic Neurologic: Present: CNII-XII intact. Absent: focal deficits - Musculoskeletal Musculoskeletal: Present: gait normal, strength equal bilaterally - Psychiatric Psychiatric: Present: A&O x's 3, appropriate affect, intact judgment & insight - Labs CBC & Chem 7: 05/16/18 05:45 05/16/18 05:45 Labs: Abnormal Lab Results - Last 24 Hours (Table) 05/15/18 05/15/18 05/16/18 Range/Units 16:40 20:45 05:42 RBC (3.80-5.40) m/uL Hgb (11.4-16.0) gm/dL Hct (34.0-46.0) % MCHC (31.0-37.0) g/dL BUN (7-17) mg/dL Creatinine (0.52-1.04) mg/dL POC Glucose (mg/dL) 164 H 138 H 102 H (75-99) mg/dL 05/16/18 05/16/18 05/16/18 Range/Units 05:45 05:45 11:28 RBC 3.23 L (3.80-5.40) m/uL Hgb 8.5 L (11.4-16.0) gm/dL Hct 28.6 L (34.0-46.0) % MCHC 29.9 L (31.0-37.0) g/dL BUN 26 H (7-17) mg/dL Creatinine 1.55 H (0.52-1.04) mg/dL POC Glucose (mg/dL) 260 H (75-99) mg/dL Microbiology - Last 24 Hours (Table) 05/14/18 15:49 Urine Culture - Preliminary Urine,Voided Gram Neg Bacilli 05/15/18 13:10 Gram Stain - Preliminary Sputum Sputum Culture - Preliminary 05/14/18 15:40 Blood Culture - Preliminary Blood No Growth after 24 hours Assessment and Plan Assessment: 1. acute bronchitis, possible pneumonia involving the right lower lobe - current chest x-ray and sputum culture pending. - Patient remains on IV Rocephin and Zithromax per pulmonary recommendations - Pulmonary service is following and recommending possible discharge in next 24- 48 hours pending chest x-ray is negative 2. fever; secondary to 1 or 3 - Resolved on IV antibiotics; will continue to monitor vital signs closely 3. urinary tract infection with gram-negative bacilli - Patient remains on IV Rocephin 1 g daily - Final urine culture and sensitivity report is pending; we will adjust antibiotics once report is available 4. COPD exacerbation secondary to above - We will continue with bronchodilator nebulizer treatments every 6 hours and when necessary - Patient remains on steroid nebulizers as recommended by pulmonary service - Continue with Rocephin and Zithromax as above 5. coronary artery disease; with previous coronary intervention and stenting involving the RCA and LAD - Elevated troponins possibly secondary to type II event; stable on aspirin, Plavix, imdur and statins - Cardiology is following and recommending to continue current medication regimen 6. CHF with diastolic dysfunction; not in exacerbation - Continue with current home medications 7. hypertension; stable on amlodipine 10 mg daily 8. hyperlipidemia; continue with Lipitor 40 mg by mouth daily at bedtime 9. diabetes mellitus - Patient remains on Levemir 8 units subcu daily at bedtime - Continue with Accu-Cheks with NovoLog sliding scale 10. paroxysmal atrial fibrillation; rate controlled on metoprolol 100 mg by mouth twice a day; continue with anticoagulation with Xarelto 15 mg by mouth daily 11. Acute on chronic renal failure - Nephrology service is following and is recommending to maintain blood pressure between 110 to 130s; patient not on any ani inhibitors or ARB; nephrology will look into patient's office records and then make recommendations accordingly 12. chronic anemia related to renal failure; at baseline CODE STATUS; DO NOT RESUSCITATE Time with Patient: Greater than 30
[2018-05-16] MEDS ORDERED: DOCUSATE 100 MG CAP PO PRN (14:32)
[2018-05-16] MEDS: INSULIN DETEMIR 100 UNIT/ML 10 ML VIAL SQ SCH (14:52)
[2018-05-16] MEDS ORDERED: DOCUSATE ORAL SOLN 100 MG/10 ML CUP PO PRN (15:11)
[2018-05-16] MEDS: cefTRIAXone IN SWFI 1,000 MG/10 ML SYRINGE IVP SCH (15:44)
[2018-05-16] MEDS: CLOPIDOGREL 75 MG TAB PO SCH (15:45)
[2018-05-16] MEDS: RIVAROXABAN 15 MG TAB PO SCH (15:45)
[2018-05-16 16:28] LABS: Glucose,Whole Blood 161 mg/dL (75-99)
[2018-05-16 16:52] LABS: Iron Saturation 4.27 (12.00-45.00)
[2018-05-16 20:31] LABS: Glucose,Whole Blood 206 mg/dL (75-99)
[2018-05-16] MEDS: HYDROcodone/APAP 5-325MG 1 EACH TAB PO PRN (20:38)
[2018-05-16] MEDS: amLODIPine 5 MG TAB PO SCH (20:39)
[2018-05-16] MEDS: ATORVASTATIN 40 MG TAB PO SCH (20:39)
[2018-05-16] MEDS: SENNOSIDES 8.6 MG TAB PO SCH (20:39)
[2018-05-17 05:50] LABS: Glucose,Whole Blood 111 mg/dL (75-99)
[2018-05-17] MEDS: INSULIN ASPART 100 UNIT/ML 1 ML 10 ML VIAL SQ SCH ×4 (06:30→21:52)
[2018-05-17] MEDS: PANTOPRAZOLE 40 MG TABLET PO SCH (06:33)
[2018-05-17] MEDS: SYMBICORT 80-4.5 MCG INHALER INHALATION SCH ×2 (08:14→19:36)
[2018-05-17] MEDS: IPRATROPIUM-ALBUTEROL 3 ML NEB INHALATION SCH ×4 (08:14→19:36)
[2018-05-17] MEDS: CHOLECALCIFEROL 1,000 UNIT TAB PO SCH (09:37)
[2018-05-17] MEDS: AZITHROMYCIN 500 MG TAB PO SCH (09:37)
[2018-05-17] MEDS: MONTELUKAST 10 MG TAB PO SCH (09:38)
[2018-05-17] MEDS: ISOSORBIDE MONONITRATE ER 30 MG TAB.ER.24H PO SCH (09:38)
[2018-05-17] MEDS: METOPROLOL TARTRATE 50 MG TAB PO SCH ×2 (09:38→21:28)
--- NOTE | 2018-05-17 10:42 | P.PN ---
Subjective Progress Note Date: 05/17/18 Principal diagnosis: This is a 88-year-old female known to us with chronic kidney disease came in with 3 months of diarrhea, weight loss of 20 pounds coughing and bronchitis. She is also known with COPD. She continues to feel that her on a daily basis. Continues to have cough with yellowish sputum. Her appetite is improved She is able to walk without any dizziness. She is known with coronary artery disease, COPD, diabetes, severe hearing loss, past history of heart catheterization and CT and recurrent UTI. Objective - Vital Signs Vital signs: Vital Signs Temp 98.5 F 05/17/18 04:00 Pulse 92 05/17/18 08:30 Resp 18 05/17/18 04:00 BP 132/60 05/17/18 04:00 Pulse Ox 97 05/17/18 04:00 Intake & Output 05/16/18 05/17/18 05/17/18 18:59 06:59 18:59 Intake Total 860 Balance 860 Weight 56.7 kg Intake: Oral 860 Other: Voiding Method Toilet Toilet # Voids 1 2 # Bowel Movements 0 On examination she is awake alert oriented comfortable HEENT exam no JVP neck is supple no facial asymmetry Lungs are clear to auscultation with occasional coarse crackle at bases good air entry bilaterally. Heart sounds are unremarkable for any murmur rub gallop Abdomen soft nontender slightly distended and protuberant Extremity exam was no edema Neurologically awake alert oriented. - Labs CBC & Chem 7: 05/16/18 05:45 05/16/18 05:45 Labs: Abnormal Lab Results - Last 24 Hours (Table) 05/16/18 05/16/18 05/16/18 Range/Units 05:45 11:28 16:25 POC Glucose (mg/dL) 260 H 161 H (75-99) mg/dL Iron 10 L (50-170) ug/dL Iron Saturation 4.27 L (12.00-45.00) 05/16/18 05/17/18 Range/Units 20:29 05:46 POC Glucose (mg/dL) 206 H 111 H (75-99) mg/dL Iron (50-170) ug/dL Iron Saturation (12.00-45.00) Microbiology - Last 24 Hours (Table) 05/14/18 15:49 Urine Culture - Final Urine,Voided Escherichia coli 05/14/18 15:40 Blood Culture - Preliminary Blood No Growth after 48 hours Assessment and Plan Assessment: Impression 1. Chronic kidney disease Baseline creatinine of 1.3-1.5 currently admitted with a creatinine of 1.5. Diabetic nephropathy 2+ proteinuria. 2. Admitted with loose stools for 3 months with weight loss of 20 pounds, appetite improved 3. History of COPD. Chest x-ray shows no new findings 4. History of ASHD with cardiac catheterization. Echocardiogram shows ejection fraction 55% 5. On anticoagulation. 6. Anemia with hemoglobin 9.4 >8.5, etiology chronic kidney disease rule out an deficiency. No labs available today 7. Dependency on narcotics. 8. Hypertension blood pressure is nearly at goal. 9 iron deficiency with saturation of 4% dated 05/16/2018 Recommendation. 1. Will give her Ferrlecit 125 mg today and tomorrow. 2 Maintain blood pressure between 110s 1:30 2. Will watch her blood pressure on current medications. She is currently on amlodipine. 3. She's not on any Yusef inhibitors or ARB will look into her office records and see if there is any history of hyperkalemia. 4. Monitor labs, repeat renal profile today.
--- NOTE | 2018-05-17 10:59 | P.PN ---
Subjective Progress Note Date: 05/17/18 88-year-old female patient coming in with cough and congestion and production of excessive amount of thick yellowish sputum and addition to a low-grade fever. In addition the patient is been having low-grade diarrhea on and off for the past 3 months. She has multiple medical problems and comorbidities most significant of which is coronary artery disease and previous [place]. She also suffers from chronic renal failure. Cardiology and nephrology of both consulted regarding these issues. The chest x-ray from from today shows stable interstitial changes bilaterally, likely chronic and there is no acute airspace disease or pneumonia identified. EKG showing a left bundle branch block pattern with a sinus rhythm and first-degree AV block. Enemas troponin leak was also noted and cardiology is following up the case. White cell count is borderline elevated at 14.4 at time of admission. Correlation profile is within normal limits. Creatinine is at 1.5 with a GFR of 31. The patient is seen today 05/16/2018 in follow-up in the selective care unit. She is awake and alert in no acute distress. She denies any worsening shortness of breath. She continues with a loose nonproductive cough currently. She did provide a sputum sample which is pending from yesterday. He is maintaining good O2 saturations in the 90s on room air. He is afebrile. Hemodynamically stable. Urine culture with gram-negative bacilli. White count 8.9. Hemoglobin 8.5. Creatinine 1.55. On 05/17/2018, patient's cough and congestion is improved. She is less short of breath. Afebrile. She was able to give us a sputum sample that showed no microbial growth thus far. She has E. coli in her urine. She has also Peterson positive cocci in his sputum. She remains on DuoNeb nebulized treatments around the clock, IV Rocephin and Zithromax and she has no other complaints. She is ambulating. Tolerating her diet. Objective - Vital Signs Vital signs: Vital Signs Temp 98.5 F 05/17/18 04:00 Pulse 92 05/17/18 08:30 Resp 18 05/17/18 04:00 BP 132/60 05/17/18 04:00 Pulse Ox 97 05/17/18 04:00 Intake & Output 05/16/18 05/17/18 05/17/18 18:59 06:59 18:59 Intake Total 860 Balance 860 Weight 56.7 kg Intake: Oral 860 Other: Voiding Method Toilet Toilet # Voids 1 2 # Bowel Movements 0 - Exam Gen. appearance, alert, comfortable , in no acute distress Head exam was generally normal. There was no scleral icterus or corneal arcus. Mucous membranes were moist. Neck was supple and without jugular venous distension, thyromegaly, or carotid bruits. Carotids were easily palpable bilaterally. There was no adenopathy. Lungs sounds are diminished bilaterally along with scattered expiratory wheezes heard throughout the lung scruggs. Cardiac exam revealed the PMI to be normally situated and sized. The rhythm was regular and no extrasystoles were noted during several minutes of auscultation. The first and second heart sounds were normal and physiologic splitting of the second heart sound was noted. There were no murmurs, rubs, clicks, or gallops. Abdominal exam revealed normal bowel sounds. The abdomen was soft, non-tender, and without masses, organomegaly, or appreciable enlargement of the abdominal aorta. Examination of the extremities revealed easily palpable radial, femoral and pedal pulses. There was no cyanosis, clubbing or edema. Examination of the skin revealed no evidence of significant rashes, suspicious appearing nevi or other concerning lesions. Neurologically awake and alert and there is no focal neurological deficit. - Labs CBC & Chem 7: 05/16/18 05:45 05/16/18 05:45 Labs: Abnormal Lab Results - Last 24 Hours (Table) 05/16/18 05/16/18 05/16/18 Range/Units 05:45 11:28 16:25 POC Glucose (mg/dL) 260 H 161 H (75-99) mg/dL Iron 10 L (50-170) ug/dL Iron Saturation 4.27 L (12.00-45.00) 05/16/18 05/17/18 Range/Units 20:29 05:46 POC Glucose (mg/dL) 206 H 111 H (75-99) mg/dL Iron (50-170) ug/dL Iron Saturation (12.00-45.00) Microbiology - Last 24 Hours (Table) 05/14/18 15:49 Urine Culture - Final Urine,Voided Escherichia coli 05/14/18 15:40 Blood Culture - Preliminary Blood No Growth after 48 hours Assessment and Plan Plan: 1 acute bronchitis, possible pneumonia involving the right lower lobe although this is not clearly identified and it current chest x-ray and sputum culture pending. The most recent sputum analysis is showing gram-positive cocci and the patient is improved considerably with a combination of Rocephin and Zithromax. Current pulse ox is 97% on room air. Hemodynamically stable. 2 fever, resolved and the patient is hemodynamically stable 3 urinary tract infection with gram-negative bacilli 4 COPD exacerbation secondary to above 5 coronary artery disease with previous coronary intervention and stenting involving the RCA and LAD 6 CHF with diastolic dysfunction 7 hypertension 8 hyperlipidemia 9 diabetes mellitus 10 paroxysmal atrial fibrillation 11 left bundle branch block pattern 12 chronic renal failure 13 chronic anemia related to renal failure Plan Overall condition is improved. Patient will be asked to continue the nebulized treatments. Discharge planning is in progress. The patient is good for discharge from the pulmonary standpoint either today or tomorrow on oral antibiotics. The choice can include oral Augmentin.
[2018-05-17] MEDS: MULTIVITAMINS, THERA 1 EACH TAB PO SCH (11:12)
[2018-05-17] MEDS: OXAZEPAM 15 MG PO SCH ×2 (11:13→21:52)
[2018-05-17 12:01] LABS: Glucose,Whole Blood 170 mg/dL (75-99)
[2018-05-17] MEDS: SODIUM FERRIC GLUCONAT-SUCROSE 125 MG in SODIUM CHLORIDE 0.9% 100 ML IVPB SCH (12:25)
--- NOTE | 2018-05-17 12:28 | P.PN ---
Subjective Progress Note Date: 05/17/18 Principal diagnosis: Acute bronchitis/possible pneumonia Acute exacerbation COPD UTI with gram-negative bacilli 88-year-old female patient coming in with cough and congestion and production of excessive amount of thick yellowish sputum and addition to a low-grade fever. In addition the patient is been having low-grade diarrhea on and off for the past 3 months. She has multiple medical problems and comorbidities most significant of which is coronary artery disease and previous [place]. She also suffers from chronic renal failure. Cardiology and nephrology of both consulted regarding these issues. The chest x-ray from from today shows stable interstitial changes bilaterally, likely chronic and there is no acute airspace disease or pneumonia identified. EKG showing a left bundle branch block pattern with a sinus rhythm and first-degree AV block. Enemas troponin leak was also noted and cardiology is following up the case. White cell count is borderline elevated at 14.4 at time of admission. Correlation profile is within normal limits. Creatinine is at 1.5 with a GFR of 31. 05/16/2018 She is seen and evaluated in the room at bedside; She is awake and alert in no acute distress. She denies any worsening shortness of breath. She continues with a loose nonproductive cough currently. She did provide a sputum sample which is pending from yesterday. He is maintaining good O2 saturations in the 90s on room air. He is afebrile. Hemodynamically stable. Urine culture with gram-negative bacilli. White count 8.9. Hemoglobin 8.5. Creatinine 1.55. 05/17/2018 patient's cough and congestion is improved. She is less short of breath. Afebrile. She was able to give us a sputum sample that showed no microbial growth thus far. She has E. coli in her urine. She has also Peterson positive cocci in his sputum. She remains on DuoNeb nebulized treatments around the clock, IV Rocephin and Zithromax and she has no other complaints. She is ambulating. Tolerating her diet. Overall condition is improved. Patient will be asked to continue the nebulized treatments. Discharge planning is in progress. Sputum culture is showing gram- positive cocci with final culture and sensitivity still pending; culture shows E. coli up to 50,000 colonies sensitive to ceftriaxone and Augmentin; The patient is good for discharge from the pulmonary standpoint tomorrow on oral Augmentin. Objective - Vital Signs Vital signs: Vital Signs Temp 97.7 F 05/17/18 09:35 Pulse 82 05/17/18 09:35 Resp 18 05/17/18 09:35 BP 140/62 05/17/18 09:35 Pulse Ox 97 05/17/18 09:35 Intake & Output 05/16/18 05/17/18 05/17/18 18:59 06:59 18:59 Intake Total 860 400 Balance 860 400 Weight 56.7 kg Intake: Oral 860 400 Other: Voiding Method Toilet Toilet Toilet # Voids 1 2 2 # Bowel Movements 0 - Exam - Constitutional General appearance: Present: average body habitus, cooperative, no acute distress - EENT Eyes: Present: anicteric sclerae, EOMI, PERRLA, normal appearance ENT: Present: hearing grossly normal, normal oropharynx Ears: bilateral: normal - Neck Neck: Present: normal ROM. Absent: lymphadenopathy, rigidity, thyromegaly Carotids: negative: bruit present Thyroid: bilateral: normal size, negative: enlarged, nodule - Respiratory Respiratory: bilateral: CTA, negative: rales, rhonchi, wheezing - Cardiovascular Rhythm: regular Heart sounds: normal: S1, S2 Abnormal Heart Sounds: Absent: systolic murmur, diastolic murmur - Gastrointestinal General gastrointestinal: Present: normal bowel sounds, soft. Absent: distended , organomegaly, tenderness - Genitourinary Genitourinary Comment(s): deferred - Integumentary Integumentary: Present: normal turgor. Absent: jaundiced, rash, ulcer - Neurologic Neurologic: Present: CNII-XII intact. Absent: focal deficits - Musculoskeletal Musculoskeletal: Present: gait normal, strength equal bilaterally - Psychiatric Psychiatric: Present: A&O x's 3, appropriate affect, intact judgment & insight - Labs CBC & Chem 7: 05/16/18 05:45 05/16/18 05:45 Labs: Abnormal Lab Results - Last 24 Hours (Table) 05/16/18 05/16/18 05/16/18 Range/Units 05:45 16:25 20:29 POC Glucose (mg/dL) 161 H 206 H (75-99) mg/dL Iron 10 L (50-170) ug/dL Iron Saturation 4.27 L (12.00-45.00) 05/17/18 05/17/18 Range/Units 05:46 11:48 POC Glucose (mg/dL) 111 H 170 H (75-99) mg/dL Iron (50-170) ug/dL Iron Saturation (12.00-45.00) Microbiology - Last 24 Hours (Table) 05/14/18 15:49 Urine Culture - Final Urine,Voided Escherichia coli 05/14/18 15:40 Blood Culture - Preliminary Blood No Growth after 48 hours Assessment and Plan Assessment: 1. acute bronchitis, possible pneumonia involving the right lower lobe - current chest x-ray and sputum culture pending. - Patient remains on IV Rocephin and Zithromax per pulmonary recommendations - Pulmonary service is following and recommending possible discharge in next 24- 48 hours pending chest x-ray is negative 2. fever; secondary to 1 or 3 - Resolved on IV antibiotics; will continue to monitor vital signs closely 3. urinary tract infection with gram-negative bacilli - Patient remains on IV Rocephin 1 g daily - Final urine culture and sensitivity report is pending; we will adjust antibiotics once report is available 4. COPD exacerbation secondary to above - We will continue with bronchodilator nebulizer treatments every 6 hours and when necessary - Patient remains on steroid nebulizers as recommended by pulmonary service - Continue with Rocephin and Zithromax as above 5. coronary artery disease; with previous coronary intervention and stenting involving the RCA and LAD - Elevated troponins possibly secondary to type II event; stable on aspirin, Plavix, imdur and statins - Cardiology is following and recommending to continue current medication regimen 6. CHF with diastolic dysfunction; not in exacerbation - Continue with current home medications 7. hypertension; stable on amlodipine 10 mg daily 8. hyperlipidemia; continue with Lipitor 40 mg by mouth daily at bedtime 9. diabetes mellitus - Patient remains on Levemir 8 units subcu daily at bedtime - Continue with Accu-Cheks with NovoLog sliding scale 10. paroxysmal atrial fibrillation; rate controlled on metoprolol 100 mg by mouth twice a day; continue with anticoagulation with Xarelto 15 mg by mouth daily 11. Acute on chronic renal failure - Nephrology service is following and is recommending to maintain blood pressure between 110 to 130s; patient not on any ani inhibitors or ARB; nephrology will look into patient's office records and then make recommendations accordingly 12. chronic anemia related to renal failure; at baseline CODE STATUS; DO NOT RESUSCITATE Time with Patient: Greater than 30
[2018-05-17] MEDS: cefTRIAXone IN SWFI 1,000 MG/10 ML SYRINGE IVP SCH (15:42)
[2018-05-17] MEDS: INSULIN DETEMIR 100 UNIT/ML 10 ML VIAL SQ SCH (15:42)
[2018-05-17 16:36] LABS: Glucose,Whole Blood 147 mg/dL (75-99)
[2018-05-17] MEDS: CLOPIDOGREL 75 MG TAB PO SCH (17:55)
[2018-05-17] MEDS: RIVAROXABAN 15 MG TAB PO SCH (17:55)
[2018-05-17 20:57] LABS: Glucose,Whole Blood 238 mg/dL (75-99)
[2018-05-17] MEDS: SENNOSIDES 8.6 MG TAB PO SCH (21:28)
[2018-05-17] MEDS: ATORVASTATIN 40 MG TAB PO SCH (21:28)
[2018-05-17] MEDS: amLODIPine 5 MG TAB PO SCH (21:28)
[2018-05-18 05:47] LABS: Glucose,Whole Blood 117 mg/dL (75-99)
[2018-05-18 05:54] VITALS: TEMP 98.2
[2018-05-18] MEDS: INSULIN ASPART 100 UNIT/ML 1 ML 10 ML VIAL SQ SCH (05:57)
[2018-05-18] MEDS: PANTOPRAZOLE 40 MG TABLET PO SCH (06:05)
[2018-05-18 06:16] LABS: Basophils % (A) 1 %; Eosinophils # (A) 0.2 k/uL (0-0.7); Eosinophils % (A) 3 %; HCT 29.9 % (34.0-46.0); HGB 9.2 gm/dL (11.4-16.0); Hypochromasia Moderate; Lymphocytes # (A) 1.5 k/uL (1.0-4.8); Lymphocytes % (A) 24 %; MCH 27.3 pg (25.0-35.0); MCHC 30.7 g/dL (31.0-37.0); MCV 88.9 fL (80.0-100.0); Mean Platelet Volume 6.7; Monocytes # (A) 0.4 k/uL (0-1.0); Monocytes % (A) 7 %; Neutrophils # (A) 4.2 k/uL (1.3-7.7); Neutrophils % (A) 65 %; Platelet Count 404 k/uL (150-450); RBC 3.36 m/uL (3.80-5.40); RDW 14.3 % (11.5-15.5); WBC 6.4 k/uL (3.8-10.6)
[2018-05-18 06:36] LABS: Calcium 9.1 mg/dL (8.4-10.2); Potassium 4.4 mmol/L (3.5-5.1)
--- NOTE | 2018-05-18 07:51 | P.DS ---
Providers Date of admission: 05/14/18 17:55 Attending physician: Georgi Thayer Consults: 05/14/18 17:51 Consult Physician Stat Consulting Provider: Evita Cagle Consult Reason/Comments: COPD and chronic lung disease Do you want consulting provider notified?: Yes Consult Physician Stat Consulting Provider: Alexia Vazquez Consult Reason/Comments: Renal insufficiency Do you want consulting provider notified?: Yes Consult Physician Urgent Consulting Provider: Greg Sultana Consult Reason/Comments: Elevated troponin with a history of congestive heart failure and myocardial Do you want consulting provider notified?: Yes Primary care physician: Georgi Thayer - Discharge Diagnosis(es) (1) Elevated troponin Current Visit: Yes Status: Acute (2) Fever Current Visit: Yes Status: Acute (3) Pneumonia Current Visit: Yes Status: Acute (4) CHF (congestive heart failure) Current Visit: No Status: Acute (5) High risk for readmission Current Visit: No Status: Acute (6) Hyperlipidemia Current Visit: No Status: Acute (7) Hypertension Current Visit: No Status: Acute (8) Renal insufficiency Current Visit: No Status: Acute Hospital Course: This discharge summary an 88-year-old white female essentially admitted for pneumonia and weakness. The patient was treated appropriately with consultants. Medication for pneumonia was started and she is actually did quite well. We'll make sure she is afebrile discharge. If cleared by consultants, I suspect she can be discharged home. She does have significant presbycusis otherwise. She does not complain of any voiding symptoms. She seems to be tolerating diet appropriately. Patient Condition at Discharge: Good Plan - Discharge Summary Discharge Rx Participant: No New Discharge Prescriptions: New Azithromycin [Zithromax] 250 mg PO DAILY #5 tab Continue amLODIPine BESYLATE [Norvasc] 5 mg PO HS Omeprazole [PriLOSEC] 20 mg PO AC-BRKFST HYDROcodone/APAP 5-325MG [Margie 5-325] 1 tab PO Q6H PRN PRN Reason: Pain Ipratropium-Albuterol Nebulize [Duoneb 0.5 mg-3 mg/3 ml Soln] 3 ml INHALATION RT-TID PRN PRN Reason: Shortness Of Breath Montelukast [Singulair] 10 mg PO DAILY Fluticasone/Salmeterol [Advair 250-50 Diskus] 1 puff INHALATION RT-BID Metoprolol Tartrate [Lopressor] 100 mg PO BID Sennosides [Senna] 8.6 mg PO HS Atorvastatin [Lipitor] 40 mg PO HS #30 tab Nitroglycerin Sl Tabs [Nitrostat] 0.4 mg SUBLINGUAL Q5M PRN #25 tab PRN Reason: Chest Pain Isosorbide Mononitrate ER [Imdur] 30 mg PO DAILY #30 tab.er.24h Oxazepam [Serax] 15 mg PO BID #60 capsule Clopidogrel [Plavix] 75 mg PO DAILY@1900 Rivaroxaban [Xarelto] 15 mg PO DAILY@1900 Acetaminophen [Tylenol] 1,000 mg PO Q4-6H PRN PRN Reason: Pain Multivitamin [Multivitamins Adult Gummies] 1 tab PO DAILY Cholecalciferol [Vitamin D3] 3,000 unit PO DAILY Insulin Detemir [Levemir Flextouch] 8 unit SQ DAILY@1430 Discharge Medication List HYDROcodone/APAP 5-325MG [Margie 5-325] 1 tab PO Q6H PRN 02/02/14 [History] Omeprazole [PriLOSEC] 20 mg PO AC-BRKFST 02/02/14 [History] amLODIPine BESYLATE [Norvasc] 5 mg PO HS 02/02/14 [History] Ipratropium-Albuterol Nebulize [Duoneb 0.5 mg-3 mg/3 ml Soln] 3 ml INHALATION RT -TID PRN 08/20/16 [History] Montelukast [Singulair] 10 mg PO DAILY 05/17/17 [History] Fluticasone/Salmeterol [Advair 250-50 Diskus] 1 puff INHALATION RT-BID 05/18/17 [History] Metoprolol Tartrate [Lopressor] 100 mg PO BID 07/18/17 [History] Sennosides [Senna] 8.6 mg PO HS 07/18/17 [History] Atorvastatin [Lipitor] 40 mg PO HS #30 tab 07/23/17 [Rx] Nitroglycerin Sl Tabs [Nitrostat] 0.4 mg SUBLINGUAL Q5M PRN #25 tab 07/23/17 [Rx ] Isosorbide Mononitrate ER [Imdur] 30 mg PO DAILY #30 tab.er.24h 09/23/17 [Rx] Oxazepam [Serax] 15 mg PO BID #60 capsule 10/02/17 [Rx] Clopidogrel [Plavix] 75 mg PO DAILY@1900 12/11/17 [History] Rivaroxaban [Xarelto] 15 mg PO DAILY@19012/11/17 [History] Acetaminophen [Tylenol] 1,000 mg PO Q4-6H PRN 05/14/18 [History] Cholecalciferol [Vitamin D3] 3,000 unit PO DAILY 05/14/18 [History] Insulin Detemir [Levemir Flextouch] 8 unit SQ DAILY@1430 05/14/18 [History] Multivitamin [Multivitamins Adult Gummies] 1 tab PO DAILY 05/14/18 [History] Azithromycin [Zithromax] 250 mg PO DAILY #5 tab 05/18/18 [Rx] Follow up Appointment(s)/Referral(s): Georgi Thayer MD [Primary Care Provider] - 3 Days
[2018-05-18] MEDS: IPRATROPIUM-ALBUTEROL 3 ML NEB INHALATION SCH ×2 (08:23→12:30)
[2018-05-18] MEDS: SYMBICORT 80-4.5 MCG INHALER INHALATION SCH (08:23)
[2018-05-18] MEDS: MONTELUKAST 10 MG TAB PO SCH (09:28)
[2018-05-18] MEDS: CHOLECALCIFEROL 1,000 UNIT TAB PO SCH (09:28)
[2018-05-18] MEDS: SODIUM FERRIC GLUCONAT-SUCROSE 125 MG in SODIUM CHLORIDE 0.9% 100 ML IVPB SCH (09:28)
[2018-05-18] MEDS: METOPROLOL TARTRATE 50 MG TAB PO SCH (09:28)
[2018-05-18] MEDS: AZITHROMYCIN 500 MG TAB PO SCH (09:30)
[2018-05-18] MEDS: ISOSORBIDE MONONITRATE ER 30 MG TAB.ER.24H PO SCH (09:30)
[2018-05-18] MEDS: MULTIVITAMINS, THERA 1 EACH TAB PO SCH (09:30)
[2018-05-18 09:43] VITALS: BP 161/70
--- NOTE | 2018-05-18 10:25 | P.PN ---
Subjective Progress Note Date: 05/18/18 Principal diagnosis: Bronchitis and suspected right lower lobe pneumonia. 88-year-old female patient coming in with cough and congestion and production of excessive amount of thick yellowish sputum and addition to a low-grade fever. In addition the patient is been having low-grade diarrhea on and off for the past 3 months. She has multiple medical problems and comorbidities most significant of which is coronary artery disease and previous [place]. She also suffers from chronic renal failure. Cardiology and nephrology of both consulted regarding these issues. The chest x-ray from from today shows stable interstitial changes bilaterally, likely chronic and there is no acute airspace disease or pneumonia identified. EKG showing a left bundle branch block pattern with a sinus rhythm and first-degree AV block. Enemas troponin leak was also noted and cardiology is following up the case. White cell count is borderline elevated at 14.4 at time of admission. Correlation profile is within normal limits. Creatinine is at 1.5 with a GFR of 31. The patient is seen today 05/16/2018 in follow-up in the selective care unit. She is awake and alert in no acute distress. She denies any worsening shortness of breath. She continues with a loose nonproductive cough currently. She did provide a sputum sample which is pending from yesterday. He is maintaining good O2 saturations in the 90s on room air. He is afebrile. Hemodynamically stable. Urine culture with gram-negative bacilli. White count 8.9. Hemoglobin 8.5. Creatinine 1.55. On 05/17/2018, patient's cough and congestion is improved. She is less short of breath. Afebrile. She was able to give us a sputum sample that showed no microbial growth thus far. She has E. coli in her urine. She has also Peterson positive cocci in his sputum. She remains on DuoNeb nebulized treatments around the clock, IV Rocephin and Zithromax and she has no other complaints. She is ambulating. Tolerating her diet. The patient seen again today 05/18/2018 in follow-up on the selective care unit. She is awake and alert in no acute distress. She denies any worsening cough or congestion. No chills or night sweats. Nearly back to her baseline. Sputum culture was negative. Urine culture positive for E. coli. White count 6.4. Hemoglobin 9.2. Platelet count 1.53. Objective - Vital Signs Vital signs: Vital Signs Temp 98.2 F 05/18/18 04:00 Pulse 94 05/18/18 08:35 Resp 22 05/18/18 08:23 BP 161/70 05/18/18 08:00 Pulse Ox 98 05/18/18 08:23 Intake & Output 05/17/18 05/18/18 05/18/18 18:59 06:59 18:59 Intake Total 1620 480 Balance 1620 480 Weight 57 kg Intake: Intake, IV Titration 100 Amount Sodium Ferric Gluconat- 100 Sucrose 125 mg In Sodium Chloride 0.9% 100 ml @ 100 mls/hr IVPB DAILY HENRY Rx#:[id number] Oral 1520 480 Other: Voiding Method Toilet Toilet # Voids 3 1 - Exam Gen. appearance, alert, comfortable , in no acute distress Head exam was generally normal. There was no scleral icterus or corneal arcus. Mucous membranes were moist. Neck was supple and without jugular venous distension, thyromegaly, or carotid bruits. Carotids were easily palpable bilaterally. There was no adenopathy. Lungs sounds are diminished bilaterally along with scattered expiratory wheezes heard throughout the lung scruggs. Cardiac exam revealed the PMI to be normally situated and sized. The rhythm was regular and no extrasystoles were noted during several minutes of auscultation. The first and second heart sounds were normal and physiologic splitting of the second heart sound was noted. There were no murmurs, rubs, clicks, or gallops. Abdominal exam revealed normal bowel sounds. The abdomen was soft, non-tender, and without masses, organomegaly, or appreciable enlargement of the abdominal aorta. Examination of the extremities revealed easily palpable radial, femoral and pedal pulses. There was no cyanosis, clubbing or edema. Examination of the skin revealed no evidence of significant rashes, suspicious appearing nevi or other concerning lesions. Neurologically awake and alert and there is no focal neurological deficit. - Labs CBC & Chem 7: 05/18/18 05:31 05/18/18 05:31 Labs: Abnormal Lab Results - Last 24 Hours (Table) 05/17/18 05/17/18 05/17/18 Range/Units 11:48 16:31 20:56 RBC (3.80-5.40) m/uL Hgb (11.4-16.0) gm/dL Hct (34.0-46.0) % MCHC (31.0-37.0) g/dL Chloride (98-107) mmol/L Carbon Dioxide (22-30) mmol/L BUN (7-17) mg/dL Creatinine (0.52-1.04) mg/dL Glucose (74-99) mg/dL POC Glucose (mg/dL) 170 H 147 H 238 H (75-99) mg/dL 05/18/18 05/18/18 05/18/18 Range/Units 05:31 05:31 05:46 RBC 3.36 L (3.80-5.40) m/uL Hgb 9.2 L (11.4-16.0) gm/dL Hct 29.9 L (34.0-46.0) % MCHC 30.7 L (31.0-37.0) g/dL Chloride 110 H (98-107) mmol/L Carbon Dioxide 19 L (22-30) mmol/L BUN 27 H (7-17) mg/dL Creatinine 1.53 H (0.52-1.04) mg/dL Glucose 112 H (74-99) mg/dL POC Glucose (mg/dL) 117 H (75-99) mg/dL Microbiology - Last 24 Hours (Table) 05/14/18 15:40 Blood Culture - Preliminary Blood No Growth after 72 hours 05/15/18 13:10 Gram Stain - Final Sputum Sputum Culture - Final 05/14/18 15:49 Urine Culture - Final Urine,Voided Escherichia coli Assessment and Plan Assessment: Assessment 1 acute bronchitis, possible pneumonia involving the right lower lobe although this is not clearly identified and chest x-ray and sputum culture negative 2 fever 3 urinary tract infection with coli 4 COPD exacerbation secondary to above 5 coronary artery disease with previous coronary intervention and stenting involving the RCA and LAD 6 CHF with diastolic dysfunction 7 hypertension 8 hyperlipidemia 9 diabetes mellitus 10 paroxysmal atrial fibrillation anticoagulated with Xarelto 11 left bundle branch block pattern 12 chronic renal failure 13 chronic anemia related to renal failure Plan The patient was seen and evaluated by Dr. Prado. She is cleared for discharge from the pulmonary standpoint. She will complete her course of antibiotics. Follow up with Dr. Cagle in our office in 1-2 weeks' time. She is however encouraged to call sooner with any recurrence of symptoms or other questions or concerns. I, the cosigning physician, performed a history & physical examination of the patient. Lungs sounds faint crackles in the posterior bases. Maintaining good O2 saturations in the 90s on room air. I discussed the assessment and plan of care with my nurse practitioner, Nargis Leon. I attest to the above note as dictated by her.
[2018-05-18 11:23] LABS: Glucose,Whole Blood 191 mg/dL (75-99)
[2018-05-18 12:35] VITALS: RESP 20
[2018-05-18 12:47] VITALS: PULSE 78
--- NOTE | 2018-05-18 13:52 | CDI ---
Last Revision, August 2017 Documentation Clarification Form Date: 05/18/2018 1:06:30 PM From: Karolina Le RN, CCDS Admit Date: 05/14/2018 5:55:00 PM Patient Name: Sonal Ulloa Visit Number: [id number] Discharge Date: ATTENTION: The Clinical Documentation Specialists (CDI) and [facility] Coding Staff appreciate your assistance in clarifying documentation. Please respond to the clarification below the line at the bottom and electronically sign. The CDI & [facility] Coding staff will review the response and follow-up if needed. Please note: Queries are made part of the Legal Health Record. If you have any questions, please contact the author of this message via ITS. Dr Antonino Blanco MD Progress note on 05/16/18 has "abnormal troponins, likely due to a type 2 event" . Patient history/risk factors: CAD, COPD, CVA/TIA, Diabetes mellitus, Hypertensiion, Myocardial Infarction Clinical Indicators: Present with complaints of cough, sputum production, body aches and chills, She has had altered mental status and forgetfulness. EKG on admission showed sinus rhythm with left bundle branch block. She does complain of some chest discomfort, feels may be related to coughing. Lab findings: BUN 26, Cr, 1.5, HGB 9.4; Troponins; 0.082, 0.088, 0.066 Vital Signs: 134/80 87 18 100.1 96 % RA ECHO: EF 55-60 % Treatment: Monitor Labs Norvasc, PO Plavix PO Imdur PO Lopressor PO In your professional opinion, can you please further clarify type 2 event? Type 2 Myocardial infarction Demand Ischemia without ME Other, please specify Unable to determine Please continue to document in your progress notes or on this form in order to capture severity of illness and risk of mortality. Include clinical findings that support your diagnosis. MTDD
--- NOTE | 2018-05-18 14:18 | CDI ---
Last Revision, August 2017 Documentation Clarification Form Date: 05/18/2018 1:55:17 PM From: Karolina Le RN, CCDS Admit Date: 05/14/2018 5:55:00 PM Patient Name: Sonal Ulloa Visit Number: [id number] Discharge Date: ATTENTION: The Clinical Documentation Specialists (CDI) and [facility] Coding Staff appreciate your assistance in clarifying documentation. Please respond to the clarification below the line at the bottom and electronically sign. The CDI & [facility] Coding staff will review the response and follow-up if needed. Please note: Queries are made part of the Legal Health Record. If you have any questions, please contact the author of this message via ITS. Kristie Tobar MD History/Risk Factors: Chronic kidney disease, COPD CAD, Diabetes Mellitus, SC Clinical Indicators: consult and progress notes has patient with history of chronic kidney disease On admission BUN 26, CR 1.50 GFR 31 05/18/18 BUN 27, CR 1.53 GFR 31 Patients Baseline: Creatinine 1.3-1.5 Treatment: Monitor Labs Monitor blood pressure Amlodipine PO In order to capture the severity of condition, please further clarify if the condition signifies: CKD Stage 1 (GFR > 90) CKD Stage 2 (GFR 60-89) CKD Stage 3 (GFR 30-59) CKD Stage 4 (GFR 15-29) CKD Stage 5 (GFR <15) Other, please specify Unable to determine Please continue to document in your progress notes or on this form in order to capture severity of illness and risk of mortality. Include clinical findings that support your diagnosis. CKD III MTDD
--- NOTE | 2018-05-27 08:59 | CDI ---
Last Revision, August 2017 Documentation Clarification Form Date: 05/18/2018 1:06:00 PM From: Karolina Le RN, CCDS Admit Date: 05/14/2018 5:55:00 PM Patient Name: Sonal Ulloa Visit Number: [id number] Discharge Date: 05/18/2018 ATTENTION: The Clinical Documentation Specialists (CDI) and [facility] Coding Staff appreciate your assistance in clarifying documentation. Please respond to the clarification below the line at the bottom and electronically sign. The CDI & [facility] Coding staff will review the response and follow-up if needed. Please note: Queries are made part of the Legal Health Record. If you have any questions, please contact the author of this message via ITS. Silverio Carias MD: Progress note on 05/16/18 has "abnormal troponins, likely due to a type 2 event" . Patient history/risk factors Clinical Indicators: Present with complaints of cough, sputum production, body aches and chills, She had altered mental status and forgetfulness. EKG on admission showed sinus rhythm with left bundle branch block. She does complain of some chest discomfort, feels mkay be related to coughing. Lab findings: BUN 26, Cr, 1.5, HGB 9.4; Troponins; 0.082, 0.088, 0.066 Vital Signs: 134/80 87 18 100.1 96 % RA ECHO: EF 55-60 % Treatment: Monitor Labs Norvasc, Po Plavix PO Imdur PO Lopressor PO In your professional opinion, can you please further clarify type 2 event? Type 2 Myocardial infarction Other forms of acute ischemic heart disease Other, please specify Unable to determine MTDD
== END 2018-05-18 13:03 | disposition home or self-care (01) | DRG 194 ==
LOC: EC 13:03 → 6SEL 17:55
PROVIDERS: ADMIT Family Medicine; ATTEND Family Medicine
DX: J18.0 Bronchopneumonia, unspecified organism (principal); N39.0 Urinary tract infection, site not specified; I13.0 Hypertensive heart and chronic kidney disease with heart failure and stage 1 through stage 4 chronic kidney disease, or unspecified chronic kidney disease; I50.32 Chronic diastolic (congestive) heart failure; J44.0 Chronic obstructive pulmonary disease with (acute) lower respiratory infection; F11.20 Opioid dependence, uncomplicated; T82.855A Stenosis of coronary artery stent, initial encounter; J44.1 Chronic obstructive pulmonary disease with (acute) exacerbation; N17.9 Acute kidney failure, unspecified; R19.7 Diarrhea, unspecified; H91.90 Unspecified hearing loss, unspecified ear; E78.5 Hyperlipidemia, unspecified; I48.0 Paroxysmal atrial fibrillation; B96.20 Unspecified Escherichia coli [E. coli] as the cause of diseases classified elsewhere; I08.0 Rheumatic disorders of both mitral and aortic valves; N18.9 Chronic kidney disease, unspecified; E11.22 Type 2 diabetes mellitus with diabetic chronic kidney disease; D63.1 Anemia in chronic kidney disease; E11.21 Type 2 diabetes mellitus with diabetic nephropathy; I25.10 Atherosclerotic heart disease of native coronary artery without angina pectoris; I44.7 Left bundle-branch block, unspecified; I44.0 Atrioventricular block, first degree; Z66 Do not resuscitate; F32.9 Major depressive disorder, single episode, unspecified; H91.10 Presbycusis, unspecified ear; K21.9 Gastro-esophageal reflux disease without esophagitis; M19.90 Unspecified osteoarthritis, unspecified site; Z96.1 Presence of intraocular lens; R77.8 Other specified abnormalities of plasma proteins; I25.2 Old myocardial infarction; Z87.440 Personal history of urinary (tract) infections; Z95.5 Presence of coronary angioplasty implant and graft; Z79.01 Long term (current) use of anticoagulants; Z79.02 Long term (current) use of antithrombotics/antiplatelets; Z79.4 Long term (current) use of insulin; Z82.49 Family history of ischemic heart disease and other diseases of the circulatory system; Z86.73 Personal history of transient ischemic attack (TIA), and cerebral infarction without residual deficits; Z87.891 Personal history of nicotine dependence; Z98.42 Cataract extraction status, left eye; Z98.41 Cataract extraction status, right eye
CPT/HCPCS: 36415; 71046; 80048; 80053; 80061; 80306; 81001; 82040; 82306; 82550; 82553; 82728; 83036; 83540; 83550; 83735; 83970; 84100; 84484; 84550; 85025; 85027; 85610; 85730; 87040; 87070; 87077; 87086; 87186; 87205; 93005; 93306; 94640; 94760; 96374; 99285

== ENCOUNTER → 2018-06-02 | Outpatient (CLI) | payer MEDICARE ==
[2018-06-02 16:00] LABS: Basophils # (A) 0.1 k/uL (0-0.2); Basophils % (A) 1 %; Eosinophils # (A) 0.4 k/uL (0-0.7); Eosinophils % (A) 5 %; HCT 29.3 % (34.0-46.0); HGB 8.8 gm/dL (11.4-16.0); Hypochromasia Marked; Lymphocytes # (A) 2.1 k/uL (1.0-4.8); Lymphocytes % (A) 29 %; MCH 27.5 pg (25.0-35.0); MCHC 30.1 g/dL (31.0-37.0); MCV 91.2 fL (80.0-100.0); Mean Platelet Volume 6.2; Monocytes # (A) 0.5 k/uL (0-1.0); Monocytes % (A) 7 %; Neutrophils # (A) 4.1 k/uL (1.3-7.7); Neutrophils % (A) 56 %; Platelet Count 390 k/uL (150-450); RBC 3.22 m/uL (3.80-5.40); RDW 15.1 % (11.5-15.5); WBC 7.3 k/uL (3.8-10.6)
[2018-06-03 02:55] LABS: Iron Saturation 18.56 (12.00-45.00)
== END | disposition home or self-care (01) ==
LOC: LABWHC1 15:17
PROVIDERS: ATTEND Nurse Practitioner Family
DX: E61.1 Iron deficiency (principal)
CPT/HCPCS: 36415; 82728; 83540; 83550; 85025

== ENCOUNTER 2018-09-28 19:33 | Emergency (ER) | payer MEDICARE ==
[2018-09-28 19:45] VITALS: TEMP 98.3
--- NOTE | 2018-09-28 20:39 | XR ---
EXAMINATION TYPE: XR chest 2V DATE OF EXAM: 09/28/2018 COMPARISON: Prior chest x-ray May 14, 2018. HISTORY: History of COPD with cough. TECHNIQUE: Frontal and lateral views of the chest are obtained. FINDINGS: There is chronic parenchymal changes bilaterally without suspicious focal air space opacit y, pleural effusion, or pneumothorax seen. The cardiac silhouette size is stable and enlarged with a therosclerotic thoracic aorta. The osseous structures remain demineralized. IMPRESSION: Chronic parenchymal changes and cardiomegaly without acute pulmonary process. No signifi cant change from prior chest x-ray.
--- NOTE | 2018-09-28 21:03 | ED ---
SOB HPI - General Chief Complaint: Shortness of Breath Stated Complaint: Poss pneumonia, JANES Time Seen by Provider: 09/28/18 21:02 Source: patient, family Mode of arrival: wheelchair Limitations: no limitations - History of Present Illness Initial Comments: Sonal is a pleasant 88-year-old female with a history of coronary artery disease, congestive heart failure and COPD who presents to the emergency department today for evaluation of shortness of breath. Patient reports that she was hospitalized approximately 2 and half weeks ago at an outside facility for pneumonia. She reports she was doing well until at which time she thought she developed the flu. She reports that she got sick on and was vomiting she then felt very tired and reports she fell asleep at [facility]. She reports that she was treating this with Tylenol Motrin and cough syrup. She reports she was feeling better on Friday however on Friday she developed worsening shortness of breath. Patient reports progressively worsening shortness of breath since Friday. She denies any fevers, chills, chest pain or palpitations. She reports she used her home nebulizer minimal relief. She reports a dry nonproductive cough and generalized malaise she did feel she was improving today over the past 4 days. - Related Data Home Medications Medication Instructions Recorded Confirmed HYDROcodone/APAP 5-325MG [[place] 1 tab PO Q6H PRN 02/02/14 09/28/18 5-325] Omeprazole [PriLOSEC] 20 mg PO AC-BRKFST 02/02/14 09/28/18 amLODIPine BESYLATE [Norvasc] 5 mg PO 02/02/14 09/28/18 Ipratropium-Albuterol Nebulize 3 ml INHALATION RT-TID PRN 08/20/16 09/28/18 [Duoneb 0.5 mg-3 mg/3 ml Soln] Montelukast [Singulair] 10 mg PO DAILY@1500 05/17/17 09/28/18 Fluticasone/Salmeterol [Advair 1 puff INHALATION RT-BID 05/18/17 09/28/18 250-50 Diskus] Metoprolol Tartrate [Lopressor] 100 mg PO BID 07/18/17 09/28/18 Sennosides [Senna] 8.6 mg PO HS 07/18/17 09/28/18 Clopidogrel [Plavix] 75 mg PO DAILY@189912/11/17 09/28/18 Rivaroxaban [Xarelto] 15 mg PO DAILY@199912/11/17 09/28/18 Acetaminophen [Tylenol] 1,000 mg PO Q4-6H PRN 05/14/18 09/28/18 Insulin Detemir [Levemir Flextouch] 8 unit SQ DAILY@1430 05/14/18 09/28/18 Multivitamin [Multivitamins Adult 1 tab PO DAILY 05/14/18 09/28/18 Gummies] metFORMIN HCL [Glucophage] 500 mg PO BID 06/09/18 09/28/18 Cholecalciferol (Vitamin D3) 2,000 unit PO DAILY 09/28/18 09/28/18 [Vitamin D3] Previous Rx's Medication Instructions Recorded Atorvastatin [Lipitor] 40 mg PO HS #30 tab 07/23/17 Nitroglycerin Sl Tabs [Nitrostat] 0.4 mg SUBLINGUAL Q5M PRN #25 tab 07/23/17 Isosorbide Mononitrate ER [Imdur] 30 mg PO DAILY #30 tab.er.24h 09/23/17 Oxazepam [Serax] 15 mg PO BID #60 capsule 10/02/17 Allergies Allergy/AdvReac Type Severity Reaction Status Date / Time amoxicillin trihydrate Allergy Unknown Verified 09/28/18 21:31 [From Augmentin] clindamycin HCl Allergy Unknown Verified 09/28/18 21:31 [From Cleocin] clindamycin palmitate HCl Allergy Unknown Verified 09/28/18 21:31 [From Cleocin] clindamycin phosphate Allergy Unknown Verified 09/28/18 21:31 [From Cleocin] codeine Allergy Unknown Verified 09/28/18 21:31 lorazepam [From Ativan] Allergy Confusion Verified 09/28/18 21:31 nitrofurantoin Allergy Unknown Verified 09/28/18 21:31 [From Macrobid] nitrofurantoin Allergy Unknown Verified 09/28/18 21:31 macrocrystalline [From Macrobid] Penicillins Allergy Unknown Verified 09/28/18 21:31 potassium clavulanate Allergy Unknown Verified 09/28/18 21:31 [From Augmentin] prednisone Allergy Unknown Verified 09/28/18 21:31 quinine Allergy Unknown Verified 09/28/18 21:31 Sulfa (Sulfonamide Allergy Unknown Verified 09/28/18 21:31 Antibiotics) sulfamethoxazole Allergy Unknown Verified 09/28/18 21:31 [From Bactrim] trimethoprim [From Bactrim] Allergy Unknown Verified 09/28/18 21:31 Review of Systems ROS Statement: Those systems with pertinent positive or pertinent negative responses have been documented in the HPI. ROS Other: All systems not noted in ROS Statement are negative. Past Medical History Past Medical History: Coronary Artery Disease (CAD), Chest Pain / Angina, COPD, CVA/TIA, Diabetes Mellitus, GERD/Reflux, Hearing Disorder / Deafness, Hyperlipidemia, Hypertension, Myocardial Infarction ([place]), Osteoarthritis (OA), Pneumonia Additional Past Medical History / Comment(s): COPD, coronary artery disease, CHF with diastolic dysfunction, previous coronary intervention and stenting of RCA, hypertension, hyperlipidemia, diabetes mellitus, bruxism and HDL fibrillation, left bundle branch block pattern, chronic renal failure, chronic anemia anemia, eczema, constipation, TIA X 3, esophageal stricture with esophageal dilation due to issues swallowing, Last Myocardial Infarction Date:: 1998, 09/21/17 History of Any Multi-Drug Resistant Organisms: VRE Date of last positivie culture/infection: 10/07/17 MDRO Source:: VRE URINE Past Surgical History: Cholecystectomy, Heart Catheterization With Stent Additional Past Surgical History / Comment(s): cataracts w/ lens implants, 2 ovary removed, heart caths :04/30/96 stent to rca, 03/18/2000 stent to mid rca, stent to lad Past Anesthesia/Blood Transfusion Reactions: Previous Problems w/ Anesthesia Additional Past Anesthesia/Blood Transfusion Reaction / Comment(s): difficulty breathing after anesthesia Date of Last Stent Placement:: 06/2017 Past Psychological History: Depression Smoking Status: Former smoker Past Alcohol Use History: Rare Past Drug Use History: None Reported - Past Family History Father History Unknown: Yes Family Medical History: Myocardial Infarction ([place]) Mother History Unknown: Yes Family Medical History: Myocardial Infarction ([place]) Additional Family Medical History / Comment(s): Mother of a [place] at about age 80yrs. General Exam - General Exam Comments Initial Comments: Physical Exam GENERAL: Chronically ill-appearing 88-year-old female HENT: Normocephalic, Atraumatic. EYES: PERRL, EOMI PULMONARY: Mild expiratory wheezes No crackles or rales CARDIOVASCULAR: There is a regular rate and rhythm without any murmurs gallops or rubs. ABDOMEN: Soft and nontender with normal bowel sounds. SKIN: Dry : Deferred NEUROLOGIC: Patient is alert and oriented x3. Moving all extremities spontaneously MUSCULOSKELETAL: Normal extremities with adequate strength and full range of motion. No lower extremity swelling or edema. No calf tenderness. PSYCHIATRIC: Normal psychiatric evaluation. Limitations: no limitations Limitations: no limitations Course Vital Signs 09/28/18 09/28/18 09/28/18 19:38 22:00 22:51 Temperature 98.3 F Pulse Rate 70 90 90 Respiratory 19 22 Rate Blood Pressure 144/71 168/79 O2 Sat by Pulse 94 L 92 L Oximetry 09/28/18 09/28/18 09/29/18 23:00 23:01 01:03 Temperature Pulse Rate 94 90 104 H Respiratory 22 20 Rate Blood Pressure 151/75 188/86 O2 Sat by Pulse 95 94 L Oximetry Medical Decision Making - Medical Decision Making Patient was seen and evaluated history is obtained from patient and daughter bedside Influenza negative chest x-ray no acute findings Labs and EKG obtained Labs with chronic anemia improving from previous, Troponin negative, BNP is elevated but less than previous Patient was reevaluated she is resting comfortably. I discussed options for staying in the hospital for observation versus following with her primary care outpatient. Patient said if she doesn't have the flu she feels comfortable going home at this time. All questions pertaining to care were answered best my ability return parameters were discussed and the patient was discharged home in stable condition. - Lab Data Result diagrams: 09/28/18 22:50 09/28/18 22:50 Lab Results 09/28/18 09/28/18 09/28/18 Range/Units 19:47 22:50 22:50 WBC 7.7 (3.8-10.6) k/uL RBC 3.67 L (3.80-5.40) m/uL Hgb 10.2 L (11.4-16.0) gm/dL Hct 31.6 L (34.0-46.0) % MCV 86.0 (80.0-100.0) fL MCH 27.9 (25.0-35.0) pg MCHC 32.4 (31.0-37.0) g/dL RDW 14.5 (11.5-15.5) % Plt Count 312 (150-450) k/uL Neutrophils % 59 % Lymphocytes % 25 % Monocytes % 7 % Eosinophils % 5 % Basophils % 0 % Neutrophils # 4.6 (1.3-7.7) k/uL Lymphocytes # 1.9 (1.0-4.8) k/uL Monocytes # 0.5 (0-1.0) k/uL Eosinophils # 0.4 (0-0.7) k/uL Basophils # 0.0 (0-0.2) k/uL Hypochromasia Slight PT (9.0-12.0) sec INR (<1.2) APTT (22.0-30.0) sec Sodium (137-145) mmol/L Potassium (3.5-5.1) mmol/L Chloride (98-107) mmol/L Carbon Dioxide (22-30) mmol/L Anion Gap mmol/L BUN (7-17) mg/dL Creatinine (0.52-1.04) mg/dL Est GFR (CKD-EPI)AfAm (>60 ml/min/1.73 sqM) Est GFR (CKD-EPI)NonAf (>60 ml/min/1.73 sqM) Glucose (74-99) mg/dL Calcium (8.4-10.2) mg/dL Magnesium (1.6-2.3) mg/dL Total Bilirubin (0.2-1.3) mg/dL AST (14-36) U/L ALT (9-52) U/L Alkaline Phosphatase (38-126) U/L Total Creatine Kinase 127 (30-135) U/L CK-MB (CK-2) 2.0 (0.0-2.4) ng/mL CK-MB (CK-2) Rel Index 1.6 Troponin I 0.021 (0.000-0.034) ng/mL NT-Pro-B Natriuret Pep pg/mL Total Protein (6.3-8.2) g/dL Albumin (3.5-5.0) g/dL Influenza Type A RNA Not Detected (Not Detectd) Influenza Type B (PCR) Not Detected (Not Detectd) 09/28/18 09/28/18 09/28/18 Range/Units 22:50 22:50 22:50 WBC (3.8-10.6) k/uL RBC (3.80-5.40) m/uL Hgb (11.4-16.0) gm/dL Hct (34.0-46.0) % MCV (80.0-100.0) fL MCH (25.0-35.0) pg MCHC (31.0-37.0) g/dL RDW (11.5-15.5) % Plt Count (150-450) k/uL Neutrophils % % Lymphocytes % % Monocytes % % Eosinophils % % Basophils % % Neutrophils # (1.3-7.7) k/uL Lymphocytes # (1.0-4.8) k/uL Monocytes # (0-1.0) k/uL Eosinophils # (0-0.7) k/uL Basophils # (0-0.2) k/uL Hypochromasia PT 12.4 H (9.0-12.0) sec INR 1.2 H (<1.2) APTT 31.3 H (22.0-30.0) sec Sodium 141 (137-145) mmol/L Potassium 4.9 (3.5-5.1) mmol/L Chloride 108 H (98-107) mmol/L Carbon Dioxide 23 (22-30) mmol/L Anion Gap 10 mmol/L BUN 27 H (7-17) mg/dL Creatinine 1.87 H (0.52-1.04) mg/dL Est GFR (CKD-EPI)AfAm 28 (>60 ml/min/1.73 sqM) Est GFR (CKD-EPI)NonAf 24 (>60 ml/min/1.73 sqM) Glucose 112 H (74-99) mg/dL Calcium 9.8 (8.4-10.2) mg/dL Magnesium 1.9 (1.6-2.3) mg/dL Total Bilirubin 0.7 (0.2-1.3) mg/dL AST 32 (14-36) U/L ALT 22 (9-52) U/L Alkaline Phosphatase 86 (38-126) U/L Total Creatine Kinase (30-135) U/L CK-MB (CK-2) (0.0-2.4) ng/mL CK-MB (CK-2) Rel Index Troponin I (0.000-0.034) ng/mL NT-Pro-B Natriuret Pep 3130 pg/mL Total Protein 7.8 (6.3-8.2) g/dL Albumin 4.1 (3.5-5.0) g/dL Influenza Type A RNA (Not Detectd) Influenza Type B (PCR) (Not Detectd) - EKG Data -: EKG Interpreted by Me EKG Comments: EKG obtained at 2218 rate is 93 rhythm is sinus with leftward axis left bundle branch block, AL 180 QRS 144 QTC 4:15. No acute ST elevations or depressions no evidence of acute ischemia or infarction. When EKG is compared to EKG from April 2018 there is no significant change in morphology. Disposition Clinical Impression: COPD bronchitis Disposition: HOME SELF-CARE Condition: Good Is patient prescribed a controlled substance at d/c from ED?: No Referrals: Georgi Thayer MD [Primary Care Provider] - 1-2 days
[2018-09-28] MEDS ORDERED: IPRATROPIUM-ALBUTEROL 3 ML NEB INHALATION STA (22:03)
[2018-09-28 23:11] LABS: Basophils % (A) 0 %; Eosinophils # (A) 0.4 k/uL (0-0.7); Eosinophils % (A) 5 %; HCT 31.6 % (34.0-46.0); HGB 10.2 gm/dL (11.4-16.0); Hypochromasia Slight; Lymphocytes # (A) 1.9 k/uL (1.0-4.8); Lymphocytes % (A) 25 %; MCH 27.9 pg (25.0-35.0); MCHC 32.4 g/dL (31.0-37.0); Mean Platelet Volume 6.6; Monocytes # (A) 0.5 k/uL (0-1.0); Monocytes % (A) 7 %; Neutrophils # (A) 4.6 k/uL (1.3-7.7); Neutrophils % (A) 59 %; Platelet Count 312 k/uL (150-450); RBC 3.67 m/uL (3.80-5.40); RDW 14.5 % (11.5-15.5); WBC 7.7 k/uL (3.8-10.6)
[2018-09-28 23:19] LABS: Albumin 4.1 g/dL (3.5-5.0); Calcium 9.8 mg/dL (8.4-10.2); Magnesium 1.9 mg/dL (1.6-2.3); Potassium 4.9 mmol/L (3.5-5.1); Total Bilirubin 0.7 mg/dL (0.2-1.3); Total Protein 7.8 g/dL (6.3-8.2)
[2018-09-28 23:22] LABS: INR 1.2 (<1.2); Partial Thromboplastin Time 31.3 sec (22.0-30.0); Prothrombin Time 12.4 sec (9.0-12.0)
[2018-09-28 23:47] LABS: Troponin I 0.021 ng/mL (0.000-0.034)
[2018-09-28] MEDS ORDERED: FUROSEMIDE 10 MG/ML 4 ML VIAL IV STA (23:59)
[2018-09-29 01:12] VITALS: BP 188/86; PULSE 104; RESP 20
== END 2018-09-29 02:18 | disposition home or self-care (01) ==
LOC: EC 19:33
DX: J44.9 Chronic obstructive pulmonary disease, unspecified (principal); D64.9 Anemia, unspecified; R00.2 Palpitations; I11.0 Hypertensive heart disease with heart failure; I50.30 Unspecified diastolic (congestive) heart failure; I25.10 Atherosclerotic heart disease of native coronary artery without angina pectoris; E11.9 Type 2 diabetes mellitus without complications; K21.9 Gastro-esophageal reflux disease without esophagitis; H91.90 Unspecified hearing loss, unspecified ear; E78.5 Hyperlipidemia, unspecified; I48.91 Unspecified atrial fibrillation; I25.2 Old myocardial infarction; Z86.73 Personal history of transient ischemic attack (TIA), and cerebral infarction without residual deficits; Z87.01 Personal history of pneumonia (recurrent); Z87.891 Personal history of nicotine dependence; Z90.49 Acquired absence of other specified parts of digestive tract; Z95.5 Presence of coronary angioplasty implant and graft; Z98.890 Other specified postprocedural states; Z79.01 Long term (current) use of anticoagulants; Z79.02 Long term (current) use of antithrombotics/antiplatelets; Z79.4 Long term (current) use of insulin; Z79.51 Long term (current) use of inhaled steroids; Z79.899 Other long term (current) drug therapy; Z88.0 Allergy status to penicillin; Z88.1 Allergy status to other antibiotic agents; Z88.2 Allergy status to sulfonamides; Z88.5 Allergy status to narcotic agent; Z88.8 Allergy status to other drugs, medicaments and biological substances
CPT/HCPCS: 36415; 71046; 80053; 82550; 82553; 83735; 83880; 84484; 85025; 85610; 85730; 87502; 93005; 94640; 99285

== ENCOUNTER 2018-09-29 19:16 | Inpatient (IN) | payer MEDICARE ==
--- NOTE | 2018-09-29 21:58 | XR ---
PROCEDURE: XR ribs RT w pa chest xray - 5V DATE AND TIME: 09/29/2018 9:41 PM CLINICAL INDICATION: PHH; Pain TECHNIQUE: 5V COMPARISON: 09/28/2018 FINDINGS: There is no pneumothorax or pleural effusion. There is no displaced fracture or malalignmen t. The previously seen bilateral pulmonary parenchymal changes are unaltered when compared to yesterday' s radiograph IMPRESSION: No manifestation of trauma.
[2018-09-29] MEDS ORDERED: HYDROcodone/APAP 5-325MG 1 EACH TAB PO STA (22:32)
[2018-09-30 07:33] LABS: Calcium 9.6 mg/dL (8.4-10.2); Potassium 5.1 mmol/L (3.5-5.1); Total Bilirubin 0.6 mg/dL (0.2-1.3); Total Protein 7.7 g/dL (6.3-8.2)
[2018-09-30 07:41] LABS: Basophils % (A) 1 %; Eosinophils # (A) 0.3 k/uL (0-0.7); Eosinophils % (A) 3 %; HCT 31.5 % (34.0-46.0); HGB 10.1 gm/dL (11.4-16.0); Hypochromasia Slight; Lymphocytes # (A) 1.9 k/uL (1.0-4.8); Lymphocytes % (A) 22 %; MCH 27.8 pg (25.0-35.0); MCHC 32.2 g/dL (31.0-37.0); MCV 86.4 fL (80.0-100.0); Mean Platelet Volume 6.6; Monocytes # (A) 0.6 k/uL (0-1.0); Monocytes % (A) 7 %; Neutrophils # (A) 5.5 k/uL (1.3-7.7); Neutrophils % (A) 64 %; Platelet Count 330 k/uL (150-450); RBC 3.64 m/uL (3.80-5.40); RDW 14.6 % (11.5-15.5); WBC 8.7 k/uL (3.8-10.6)
[2018-09-30] MEDS ORDERED: NALOXONE 0.4 MG/ML 1 ML VIAL IV PRN (08:19)
[2018-09-30] MEDS ORDERED: ONDANSETRON 4 MG/2 ML VIAL IVP PRN (08:19)
[2018-09-30] MEDS ORDERED: ACETAMINOPHEN TAB 325 MG TAB PO PRN (08:19)
[2018-09-30] MEDS ORDERED: ALPRAZolam 0.25 MG TAB PO PRN (08:19)
[2018-09-30] MEDS ORDERED: HEPARIN SODIUM,PORCINE 5,000 UNIT/ML 1 ML VIAL SQ SCH (09:00)
[2018-09-30] MEDS ORDERED: FAMOTIDINE 20 MG TAB PO SCH (09:00)
[2018-09-30 09:50] LABS: Glucose,Whole Blood 121 mg/dL (75-99)
[2018-09-30] MEDS: HYDROcodone/APAP 5-325MG 1 EACH TAB PO PRN ×3 (10:27→23:28)
[2018-09-30] MEDS ORDERED: NITROGLYCERIN SL TABS 0.4 MG TAB SUBLINGUAL PRN (10:50)
[2018-09-30] MEDS: FUROSEMIDE 10 MG/ML 2 ML VIAL IV SCH ×2 (11:10→20:37)
[2018-09-30] MEDS ORDERED: metFORMIN 500 MG TAB PO SCH (11:15)
--- NOTE | 2018-09-30 12:02 | XR ---
EXAM: XR Thoracic Spine, 3 Views CLINICAL HISTORY: Pt fell yesterday. TECHNIQUE: Frontal, lateral and swimmer's views of the thoracic spine. COMPARISON: No relevant prior studies available. FINDINGS: Limitations: Osseous structures are osteopenic which limits examination. Vertebrae: Mild anterior vertebral body height loss in the lower thoracic spine. Osseous degenerative changes and exaggerated thoracic kyphosis. Disc spaces: Multilevel disc space narrowing. Soft tissues: Unremarkable as visualized. IMPRESSION: 1. Mild anterior vertebral body height loss in lower thoracic spine of indeterminate age. If there is clinical concern for acute fracture, CT can be obtained to further assess. 2. Osseous degenerative changes and exaggerated thoracic kyphosis. 3. Osseous structures are osteopenic.
[2018-09-30] MEDS: OXAZEPAM 15 MG PO SCH ×2 (12:04→20:26)
[2018-09-30 12:29] LABS: Glucose,Whole Blood 279 mg/dL (75-99)
[2018-09-30] MEDS ORDERED: ZOLPIDEM 5 MG TAB PO PRN (14:23)
--- NOTE | 2018-09-30 14:27 | P.HPIM ---
History of Present Illness H&P Date: 09/30/18 Chief Complaint: Worsening shortness of breath. This is a history and physical an 88-year-old white female with known history of ALLERGY to penicillin and clindamycin who for the last week has been complaining of worsening shortness of breath. Belly protuberance was noted over the last 3 days and she had significant dyspnea on exertion. The family was concerned that she had pneumonia and she was evaluated yesterday and was found to have changes of congestive heart failure. She has not underlying history of hypertension diabetes and hyperlipidemia. Otherwise, no voiding difficulties. She has been treated with furosemide initially and states slight improvement. Review of Systems Constitutional: Denies chills, Denies fever Eyes: denies blurred vision, denies pain Ears, nose, mouth and throat: Denies headache, Denies sore throat Cardiovascular: Reports dyspnea on exertion, Reports edema, Denies leg edema Gastrointestinal: Denies nausea, Denies vomiting Psychiatric: Denies anxiety Past Medical History Past Medical History: Coronary Artery Disease (CAD), Chest Pain / Angina, COPD, CVA/TIA, Diabetes Mellitus, GERD/Reflux, Hearing Disorder / Deafness, Hyperlipidemia, Hypertension, Myocardial Infarction ([place]), Osteoarthritis (OA), Pneumonia Additional Past Medical History / Comment(s): COPD, coronary artery disease, CHF with diastolic dysfunction, previous coronary intervention and stenting of RCA, hypertension, hyperlipidemia, diabetes mellitus, bruxism and HDL fibrillation, left bundle branch block pattern, chronic renal failure, chronic anemia anemia, eczema, constipation, TIA X 3, esophageal stricture with esophageal dilation due to issues swallowing, Last Myocardial Infarction Date:: 1998, 09/21/17 History of Any Multi-Drug Resistant Organisms: VRE Date of last positivie culture/infection: 10/07/17 MDRO Source:: VRE URINE Past Surgical History: Cholecystectomy, Heart Catheterization With Stent Additional Past Surgical History / Comment(s): cataracts w/ lens implants, 2 ovary removed, heart caths :04/30/96 stent to rca, 03/18/2000 stent to mid rca, stent to lad Past Anesthesia/Blood Transfusion Reactions: Previous Problems w/ Anesthesia Additional Past Anesthesia/Blood Transfusion Reaction / Comment(s): difficulty breathing after anesthesia Date of Last Stent Placement:: 06/2017 Past Psychological History: Depression Smoking Status: Former smoker Past Alcohol Use History: Rare Past Drug Use History: None Reported - Past Family History Father History Unknown: Yes Family Medical History: Myocardial Infarction ([place]) Mother History Unknown: Yes Family Medical History: Myocardial Infarction ([place]) Additional Family Medical History / Comment(s): Mother of a [place] at about age 80yrs. Medications and Allergies Home Medications Medication Instructions Recorded Confirmed Type HYDROcodone/APAP 5-325MG [[place] 1 tab PO Q6H PRN 02/02/14 09/29/18 History 5-325] Omeprazole [PriLOSEC] 20 mg PO AC-BRKFST 02/02/14 09/29/18 History amLODIPine BESYLATE [Norvasc] 5 mg PO HS 02/02/14 09/29/18 History Ipratropium-Albuterol Nebulize 3 ml INHALATION RT-TID PRN 08/20/16 09/29/18 History [Duoneb 0.5 mg-3 mg/3 ml Soln] Montelukast [Singulair] 10 mg PO DAILY@1500 05/17/17 09/29/18 History Fluticasone/Salmeterol [Advair 1 puff INHALATION RT-BID 05/18/17 09/29/18 History 250-50 Diskus] Metoprolol Tartrate [Lopressor] 100 mg PO BID 07/18/17 09/29/18 History Sennosides [Senna] 8.6 mg PO HS 07/18/17 09/29/18 History Atorvastatin [Lipitor] 40 mg PO HS #30 tab 07/23/17 09/29/18 Rx Nitroglycerin Sl Tabs [Nitrostat] 0.4 mg SUBLINGUAL Q5M PRN #25 tab 07/23/1705/10 Rx Isosorbide Mononitrate ER [Imdur] 30 mg PO DAILY #30 tab.er.24h 09/23/17 Rx Oxazepam [Serax] 15 mg PO BID #60 capsule 10/02/17 09/29/18 Rx Clopidogrel [Plavix] 75 mg PO DAILY@1900 12/11/17 09/29/18 History Rivaroxaban [Xarelto] 15 mg PO DAILY@199912/11/17 09/29/18 History Acetaminophen [Tylenol] 1,000 mg PO Q4-6H PRN 05/14/18 09/29/18 History Insulin Detemir [Levemir Flextouch] 8 unit SQ DAILY@1430 05/14/18 09/29/18 History Multivitamin [Multivitamins Adult 1 tab PO DAILY 05/14/18 09/29/18 History Gummies] metFORMIN HCL [Glucophage] 500 mg PO BID 06/09/18 09/29/18 History Cholecalciferol (Vitamin D3) 2,000 unit PO DAILY 09/28/18 09/29/18 History [Vitamin D3] Allergies Allergy/AdvReac Type Severity Reaction Status Date / Time amoxicillin trihydrate Allergy Unknown Verified 09/29/18 21:28 [From Augmentin] clindamycin HCl Allergy Unknown Verified 09/29/18 21:28 [From Cleocin] clindamycin palmitate HCl Allergy Unknown Verified 09/29/18 21:28 [From Cleocin] clindamycin phosphate Allergy Unknown Verified 09/29/18 21:28 [From Cleocin] codeine Allergy Unknown Verified 09/29/18 21:28 lorazepam [From Ativan] Allergy Confusion Verified 09/29/18 21:28 nitrofurantoin Allergy Unknown Verified 09/29/18 21:28 [From Macrobid] nitrofurantoin Allergy Unknown Verified 09/29/18 21:28 macrocrystalline [From Macrobid] Penicillins Allergy Unknown Verified 09/29/18 21:28 potassium clavulanate Allergy Unknown Verified 09/29/18 21:28 [From Augmentin] prednisone Allergy Unknown Verified 09/29/18 21:28 quinine Allergy Unknown Verified 09/29/18 21:28 Sulfa (Sulfonamide Allergy Unknown Verified 09/29/18 21:28 Antibiotics) sulfamethoxazole Allergy Unknown Verified 09/29/18 21:28 [From Bactrim] trimethoprim [From Bactrim] Allergy Unknown Verified 09/29/18 21:28 Physical Exam Vitals: Vital Signs Temp Pulse Pulse Resp BP BP Pulse Ox 09/30/18 13:30 98.0 F 78 17 178/73 97 09/30/18 12:19 98.2 F 101 H 14 129/93 96 09/29/18 19:34 97.7 F 84 20 143/64 91 L Intake and Output 09/29/18 09/30/18 09/30/18 22:59 06:59 14:59 Other: Weight 58.513 kg - Constitutional General appearance: mild distress - EENT Eyes: EOMI - Neck Neck: lymphadenopathy - Respiratory Respiratory: bilateral: diminished, rhonchi - Cardiovascular Rhythm: irregularly irregular - Gastrointestinal General gastrointestinal: soft, no tenderness - Musculoskeletal Musculoskeletal: generalized weakness - Psychiatric Psychiatric: A&O x's 3, appropriate affect Results CBC & Chem 7: 09/29/18 23:45 09/29/18 23:45 Labs: Abnormal Lab Results - Last 24 Hours (Table) 09/29/18 09/29/18 09/30/18 Range/Units 23:45 23:45 09:49 RBC 3.64 L (3.80-5.40) m/uL Hgb 10.1 L (11.4-16.0) gm/dL Hct 31.5 L (34.0-46.0) % Carbon Dioxide 21 L (22-30) mmol/L BUN 33 H (7-17) mg/dL Creatinine 1.87 H (0.52-1.04) mg/dL Glucose 127 H (74-99) mg/dL POC Glucose (mg/dL) 121 H (75-99) mg/dL 09/30/18 Range/Units 12:27 RBC (3.80-5.40) m/uL Hgb (11.4-16.0) gm/dL Hct (34.0-46.0) % Carbon Dioxide (22-30) mmol/L BUN (7-17) mg/dL Creatinine (0.52-1.04) mg/dL Glucose (74-99) mg/dL POC Glucose (mg/dL) 279 H (75-99) mg/dL Assessment and Plan (1) CHF (congestive heart failure) Current Visit: No Status: Acute Code(s): I50.9 - HEART FAILURE, UNSPECIFIED SNOMED Code(s): 22559062 (2) Diabetes Current Visit: No Status: Acute Code(s): E11.9 - TYPE 2 DIABETES MELLITUS WITHOUT COMPLICATIONS SNOMED Code(s): 72703410 (3) Dyspnea Current Visit: No Status: Acute Code(s): R06.00 - DYSPNEA, UNSPECIFIED SNOMED Code(s): 955974174 (4) GERD (gastroesophageal reflux disease) Current Visit: No Status: Acute Code(s): K21.9 - GASTRO-ESOPHAGEAL REFLUX DISEASE WITHOUT ESOPHAGITIS SNOMED Code(s): 229744955 (5) High risk for readmission Current Visit: No Status: Acute Code(s): Z91.89 - OTH PERSONAL RISK FACTORS , NOT ELSEWHERE CLASSIFIED SNOMED Code(s): 101547256 (6) Hyperkalemia Current Visit: No Status: Acute Code(s): E87.5 - HYPERKALEMIA SNOMED Code( s): 58233209 Plan: Multiple comorbidities in an advancing age patient. Go ahead and start diuresis. Check echocardiogram if necessary. New pack check CMP with TSH and T4. Consult cardiology. Reconcile medications. Georgi will be given when necessary for sleep. Prognosis is guarded secondary to her multiple comorbidities.
[2018-09-30] MEDS: IPRATROPIUM-ALBUTEROL 3 ML NEB INHALATION PRN ×2 (15:37→20:24)
[2018-09-30] MEDS: ISOSORBIDE MONONITRATE ER 30 MG TAB.ER.24H PO SCH (15:51)
[2018-09-30] MEDS: MULTIVITAMINS, THERA 1 EACH TAB PO SCH (15:51)
[2018-09-30] MEDS: MONTELUKAST 10 MG TAB PO SCH (15:52)
[2018-09-30] MEDS: CHOLECALCIFEROL 1,000 UNIT TAB PO SCH (15:52)
[2018-09-30] MEDS: METOPROLOL TARTRATE 50 MG TAB PO SCH ×2 (15:52→20:36)
[2018-09-30] MEDS: INSULIN DETEMIR 100 UNIT/ML 10 ML VIAL SQ SCH (16:21)
[2018-09-30 18:17] LABS: Glucose,Whole Blood 155 mg/dL (75-99)
[2018-09-30] MEDS: CLOPIDOGREL 75 MG TAB PO SCH (20:36)
[2018-09-30] MEDS: amLODIPine 5 MG TAB PO SCH (20:36)
[2018-09-30] MEDS: SENNOSIDES 8.6 MG TAB PO SCH (20:36)
[2018-09-30] MEDS: ATORVASTATIN 40 MG TAB PO SCH (20:37)
[2018-09-30] MEDS: RIVAROXABAN 15 MG TAB PO SCH (20:46)
[2018-09-30 21:04] LABS: Glucose,Whole Blood 156 mg/dL (75-99)
[2018-09-30 22:57] LABS: Hemoglobin A1C 6.7 % (4.0-6.0)
[2018-10-01] MEDS: FUROSEMIDE 10 MG/ML 2 ML VIAL IV SCH (01:36)
[2018-10-01 07:06] LABS: Glucose,Whole Blood 143 mg/dL (75-99)
--- NOTE | 2018-10-01 08:22 | P.PN ---
Subjective Progress Note Date: 10/01/18 Principal diagnosis: So some mild dyspnea The patient is essentially an 88-year-old white female admitted for exacerbation of congestive heart failure. She has normal history coronary artery disease and diabetes. She states some fatigue. No voiding difficulties otherwise stated. She seems to be tolerating diet appetite is somewhat poor today. Objective - Vital Signs Vital signs: Vital Signs Temp 98.4 F 10/01/18 06:53 Pulse 89 10/01/18 06:53 Resp 20 10/01/18 06:53 BP 131/75 10/01/18 06:53 Pulse Ox 91 L 10/01/18 06:53 Intake & Output 09/30/18 10/01/18 10/01/18 18:59 06:59 18:59 Intake Total 590 Balance 590 Weight 60.5 kg Intake: Oral 590 Other: # Voids 1 1 - Constitutional General appearance: Present: average body habitus, no acute distress - EENT Eyes: Absent: abnormal pupil - Neck Neck: Absent: lymphadenopathy - Respiratory Respiratory: bilateral: diminished - Cardiovascular Rhythm: regular Heart sounds: normal: S1, S2 Abnormal Heart Sounds: Absent: S3 Gallop - Gastrointestinal General gastrointestinal: Present: soft. Absent: tenderness - Labs CBC & Chem 7: 09/29/18 23:45 09/29/18 23:45 Labs: Abnormal Lab Results - Last 24 Hours (Table) 09/29/18 09/30/18 09/30/18 Range/Units 23:45 09:49 12:27 POC Glucose (mg/dL) 121 H 279 H (75-99) mg/dL Hemoglobin A1c 6.7 H (4.0-6.0) % 09/30/18 09/30/18 10/01/18 Range/Units 18:05 20:53 07:04 POC Glucose (mg/dL) 155 H 156 H 143 H (75-99) mg/dL Hemoglobin A1c (4.0-6.0) % Assessment and Plan (1) CHF (congestive heart failure) Current Visit: No Status: Acute Code(s): I50.9 - HEART FAILURE, UNSPECIFIED SNOMED Code(s): 47379630 (2) Diabetes Current Visit: No Status: Acute Code(s): E11.9 - TYPE 2 DIABETES MELLITUS WITHOUT COMPLICATIONS SNOMED Code(s): 86247480 (3) Dyspnea Current Visit: No Status: Acute Code(s): R06.00 - DYSPNEA, UNSPECIFIED SNOMED Code(s): 840524957 (4) GERD (gastroesophageal reflux disease) Current Visit: No Status: Acute Code(s): K21.9 - GASTRO-ESOPHAGEAL REFLUX DISEASE WITHOUT ESOPHAGITIS SNOMED Code(s): 149092572 (5) High risk for readmission Current Visit: No Status: Acute Code(s): Z91.89 - OTH PERSONAL RISK FACTORS , NOT ELSEWHERE CLASSIFIED SNOMED Code(s): 731947033 (6) Hyperkalemia Current Visit: No Status: Acute Code(s): E87.5 - HYPERKALEMIA SNOMED Code( s): 49989871 Plan: We will going increase Lasix to 40 mg IV today. Watch blood sugar closely. Appreciate cardiology input. Continued current regimen otherwise. See orders.
[2018-10-01] MEDS: METOPROLOL TARTRATE 50 MG TAB PO SCH ×2 (08:32→20:02)
[2018-10-01] MEDS: PANTOPRAZOLE 40 MG TABLET PO SCH (08:33)
[2018-10-01] MEDS: FAMOTIDINE 20 MG TAB PO SCH (08:33)
[2018-10-01] MEDS: HYDROcodone/APAP 5-325MG 1 EACH TAB PO PRN ×3 (08:33→19:54)
[2018-10-01] MEDS: ISOSORBIDE MONONITRATE ER 30 MG TAB.ER.24H PO SCH (08:33)
[2018-10-01 08:47] LABS: Albumin 4.2 g/dL (3.5-5.0); Calcium 10.2 mg/dL (8.4-10.2); Potassium 4.3 mmol/L (3.5-5.1); Total Bilirubin 0.7 mg/dL (0.2-1.3); Total Protein 8.1 g/dL (6.3-8.2)
[2018-10-01] MEDS ORDERED: FUROSEMIDE 10 MG/ML 4 ML VIAL IV SCH (09:00)
[2018-10-01 11:30] LABS: Glucose,Whole Blood 198 mg/dL (75-99)
[2018-10-01] MEDS: IPRATROPIUM-ALBUTEROL 3 ML NEB INHALATION PRN (11:43)
[2018-10-01] MEDS ORDERED: INSULIN ASPART 100 UNIT/ML 1 ML 10 ML VIAL SQ SCH (12:30)
[2018-10-01] MEDS: INSULIN ASPART 100 UNIT/ML 1 ML 10 ML VIAL SQ SCH ×3 (13:10→21:00)
[2018-10-01] MEDS: MULTIVITAMINS, THERA 1 EACH TAB PO SCH (13:11)
[2018-10-01] MEDS: CHOLECALCIFEROL 1,000 UNIT TAB PO SCH (13:11)
--- NOTE | 2018-10-01 13:25 | P.CRDCN ---
History of Present Illness History of present illness: This is a pleasant 88 showed female past medical history significant for coronary artery disease, aortic stenosis, hypertension, dyslipidemia, paroxysmal atrial fibrillation on long-term anticoagulation and diabetes mellitus. She follows with Dr. ANDRADE Nunez in the office. We've been asked to see her in consultation for progressive shortness of breath. She has been started on IV Lasix 40 mg twice a day per primary care team. She is seen and examined sitting up on the edge of the bed eating breakfast in no acute distress. She states for the previous week she has felt increasingly short of breath mostly at rest. She also has been coughing but not bringing up any sputum. She also has been having diarrhea for a couple of days with no abdominal pain, nausea or vomiting. She came here to the ED 09/28 with similar complaints and tested negative for influnza and was sent home to follow up with PCP. She continued feeling overall weak, tired and states she fell asleep at [place]. She denies any significant chest discomfort, PND or orthopnea. August 2017 she underwent cardiac catheterization in presence of ST chest pain with ST changes on EKG in the inferior leads revealing a patent stent in the proximal LAD, diffuse mild to moderate in-stent restenosis of the RCA with no progression compared with June 2017, mild disease in left circumflex and a 20 -30 mm gradient across the aortic valve. No EKG obtained on admission however, EKG from 09/28 admission reveals LBBB consistent with all previous EKG's. Laboratory data reviewed, WBC 8.7, hemoglobin 10.1, platelets 330, d-dimer 0.48 , sodium 142, potassium 4.3, creatinine 1.75, NTproBNP 3880. Current cardiac medications include atorvastatin 40 mg daily, Plavix 75 mg daily , Imdur 30 mg daily, Lopressor 100 mg twice a day, Xarelto 15 mg daily and amlodipine 5 mg daily. Most recent echocardiogram obtained April 2018 reveals preserved left ventricular systolic function with ejection fraction 55-60%, moderate aortic stenosis with mean gradient across the valve of 24 mmHg. At the time of my exam: CONSTITUTIONAL: Denies fever. Denies chills. EYES: Denies blurred vision. Denies vision changes. Denies eye pain. EARS, NOSE, MOUTH & THROAT: Denies headache. Denies sore throat. Denies ear pain. CARDIOVASCULAR: Denies chest pain. Denies shortness of breath. Denies orthopnea. Denies PND. Denies palpitations. RESPIRATORY: Denies cough. GASTROINTESTINAL: Complains of abdominal pain. Denies diarrhea. Denies constipation. Denies nausea. Denies vomiting. MUSCULOSKELETAL: Denies myalgias. INTEGUMENTARY: Denies pruitis. Denies rash. NEUROLOGIC: Denies numbness. Denies tingling. Denies weakness. PSYCHIATRIC: Denies anxiety. Denies depression. ENDOCRINE: Denies fatigue. Denies weight change. Denies polydipsia. Denies polyurina. GENITOURINARY: Denies burning, hematuria or urgency with micturation. HEMATOLOGIC: Denies history of anemia. Denies bleeding. Blood pressure 131/75 heart rate 89 afebrile maintaining oxygen saturation at 91 % on nasal cannula GENERAL: This is a 88-year-old female in no apparent distress at the time of my examination. HEENT: Head is atraumatic, normocephalic. Pupils are equal, round. Sclerae anicteric. Conjunctivae are clear. Mucous membranes of the mouth are moist. Neck is supple. There is no jugular venous distention. No carotid bruit is heard. LUNGS: Clear to auscultation no wheezes, rales or rhonchi. No chest wall tenderness is noted on palpation or with deep breathing. HEART: Regular rate and rhythm with systolic ejection murmur at the base, no rubs or gallops. S1 and S2 heard. ABDOMEN: Soft, nontender. Bowel sounds are heard. No organomegaly noted. EXTREMITIES: No evidence of peripheral edema and no calf tenderness noted. VASCULAR: Radial and dorsalis pedis pulses palpated, no evidence of clubbing. NEUROLOGIC: Patient is awake, alert and oriented x3. ASSESSMENT Mild exacerbation of chronic diastolic heart failure, NTproBNP elevated but is chronically elevated since 2017. History of coronary artery disease Aortic stenosis Hypertension Dyslipidemia Paroxysmal atrial fibrillation on long-term anticoagulation currently maintaining sinus mechanism Diabetes mellitus Chronic kidney disease, GFR 26. Stage IV PLAN Obtain EKG. Essentially she appears euvolemic with clear lungs, no lower extremity swelling. Transition to PO diuretics. Check troponin. Thank you kindly for this consultation. Nurse Practitioner note has been reviewed, I agree with a documented findings and plan of care. Patient was seen and examined. Past Medical History Past Medical History: Coronary Artery Disease (CAD), Chest Pain / Angina, Heart Failure, COPD, CVA/TIA, Diabetes Mellitus, GERD/Reflux, Hearing Disorder / Deafness, Hyperlipidemia, Hypertension, Myocardial Infarction (TX), Osteoarthritis (OA), Pneumonia, Renal Disease, Skin Disorder Additional Past Medical History / Comment(s): IDDM type II, frequent pneumonia, aspiration pneumonia with sepsis, renal insufficiency, recurrent UTIs, TIA x 3, difficulty swallowing-crushes meds and puts them in yogurt-past EGD/dilations, anemia, eczema, "lazy bowel" but pt states anymore she goes from diarrhea to constipation easily, generalized arthritis, chronic baci pain, hiatal hernia Last Myocardial Infarction Date:: 1998, 09/21/17 History of Any Multi-Drug Resistant Organisms: VRE Date of last positivie culture/infection: 10/07/17 MDRO Source:: VRE URINE Past Surgical History: Cholecystectomy, Heart Catheterization With Stent Additional Past Surgical History / Comment(s): cataracts w/ lens implants, ectopic with one ovary/tube removed, heart caths :04/30/96 stent to rca , 03/18/2000 stent to mid rca, 07/22/17 stent to lad Past Anesthesia/Blood Transfusion Reactions: Previous Problems w/ Anesthesia Additional Past Anesthesia/Blood Transfusion Reaction / Comment(s): difficulty breathing after anesthesia Date of Last Stent Placement:: 06/2017 Smoking Status: Former smoker - Past Family History Father History Unknown: Yes Family Medical History: Myocardial Infarction (TX) Additional Family Medical History / Comment(s): Father had a TX at the age of 50 yrs. He lived to be 75yrs old. Mother History Unknown: Yes Family Medical History: Myocardial Infarction (TX) Additional Family Medical History / Comment(s): Mother of a TX at about age 80yrs. Medications and Allergies Home Medications Medication Instructions Recorded Confirmed Type HYDROcodone/APAP 5-325MG [[place] 1 tab PO Q6H PRN 02/02/14 09/29/18 History 5-325] Omeprazole [PriLOSEC] 20 mg PO AC-BRKFST 02/02/14 09/29/18 History amLODIPine BESYLATE [Norvasc] 5 mg PO HS 02/02/14 09/29/18 History Ipratropium-Albuterol Nebulize 3 ml INHALATION RT-TID PRN 08/20/16 09/29/18 History [Duoneb 0.5 mg-3 mg/3 ml Soln] Montelukast [Singulair] 10 mg PO DAILY@1500 05/17/17 09/29/18 History Fluticasone/Salmeterol [Advair 1 puff INHALATION RT-BID 05/18/17 09/29/18 History 250-50 Diskus] Metoprolol Tartrate [Lopressor] 100 mg PO BID 07/18/17 09/29/18 History Sennosides [Senna] 8.6 mg PO HS 07/18/17 09/29/18 History Atorvastatin [Lipitor] 40 mg PO HS #30 tab 07/23/17 09/29/18 Rx Nitroglycerin Sl Tabs [Nitrostat] 0.4 mg SUBLINGUAL Q5M PRN #25 tab 07/23/1705/10 Rx Isosorbide Mononitrate ER [Imdur] 30 mg PO DAILY #30 tab.er.24h 09/23/17 Rx Oxazepam [Serax] 15 mg PO BID #60 capsule 10/02/17 09/29/18 Rx Clopidogrel [Plavix] 75 mg PO DAILY@1900 12/11/17 09/29/18 History Rivaroxaban [Xarelto] 15 mg PO DAILY@199912/11/17 09/29/18 History Acetaminophen [Tylenol] 1,000 mg PO Q4-6H PRN 05/14/18 09/29/18 History Insulin Detemir [Levemir Flextouch] 8 unit SQ DAILY@1430 05/14/18 09/29/18 History Multivitamin [Multivitamins Adult 1 tab PO DAILY 05/14/18 09/29/18 History Gummies] metFORMIN HCL [Glucophage] 500 mg PO BID 06/09/18 09/29/18 History Cholecalciferol (Vitamin D3) 2,000 unit PO DAILY 09/28/18 09/29/18 History [Vitamin D3] Allergies Allergy/AdvReac Type Severity Reaction Status Date / Time amoxicillin trihydrate Allergy Unknown Verified 09/29/18 21:28 [From Augmentin] clindamycin HCl Allergy Unknown Verified 09/29/18 21:28 [From Cleocin] clindamycin palmitate HCl Allergy Unknown Verified 09/29/18 21:28 [From Cleocin] clindamycin phosphate Allergy Unknown Verified 09/29/18 21:28 [From Cleocin] codeine Allergy Unknown Verified 09/29/18 21:28 lorazepam [From Ativan] Allergy Confusion Verified 09/29/18 21:28 nitrofurantoin Allergy Unknown Verified 09/29/18 21:28 [From Macrobid] nitrofurantoin Allergy Unknown Verified 09/29/18 21:28 macrocrystalline [From Macrobid] Penicillins Allergy Unknown Verified 09/29/18 21:28 potassium clavulanate Allergy Unknown Verified 09/29/18 21:28 [From Augmentin] prednisone Allergy Unknown Verified 09/29/18 21:28 quinine Allergy Unknown Verified 09/29/18 21:28 Sulfa (Sulfonamide Allergy Unknown Verified 09/29/18 21:28 Antibiotics) sulfamethoxazole Allergy Unknown Verified 09/29/18 21:28 [From Bactrim] trimethoprim [From Bactrim] Allergy Unknown Verified 09/29/18 21:28 Physical Exam Vitals: Vital Signs Temp Pulse Pulse Resp BP Pulse Ox 10/01/18 06:53 98.4 F 89 20 131/75 91 L 10/01/18 01:00 98.3 F 81 16 120/64 91 L 09/30/18 23:00 98.3 F 81 16 120/64 91 L 09/30/18 20:35 90 18 09/30/18 20:24 94 18 09/30/18 20:23 97.7 F 72 16 142/65 97 09/30/18 15:47 93 18 09/30/18 15:37 95 18 94 L 09/30/18 13:30 98.0 F 78 17 178/73 97 09/30/18 12:19 98.2 F 101 H 14 129/93 96 Intake and Output 09/30/18 10/01/18 10/01/18 22:59 06:59 14:59 Intake Total 590 Balance 590 Intake: Oral 590 Other: # Voids 2 1 Weight 60.5 kg Results 09/29/18 23:45 10/01/18 07:34 Cardiac Enzymes 10/01/18 Range/Units 07:34 AST 39 H (14-36) U/L Comprehensive Metabolic Panel 10/01/18 Range/Units 07:34 Sodium 142 (137-145) mmol/L Potassium 4.3 (3.5-5.1) mmol/L Chloride 103 (98-107) mmol/L Carbon Dioxide 25 (22-30) mmol/L BUN 30 H (7-17) mg/dL Creatinine 1.75 H (0.52-1.04) mg/dL Glucose 144 H (74-99) mg/dL Calcium 10.2 (8.4-10.2) mg/dL AST 39 H (14-36) U/L ALT 25 (9-52) U/L Alkaline Phosphatase 84 (38-126) U/L Total Protein 8.1 (6.3-8.2) g/dL Albumin 4.2 (3.5-5.0) g/dL Current Medications Generic Name Dose Route Start Last Admin Trade Name Freq PRN Reason Stop Dose Admin Acetaminophen 650 mg 09/30/18 08:19 Tylenol Tab PO Q6HR PRN Mild Pain or Fever > 100.5 Hydrocodone Bitart/Acetaminophen 1 each 09/30/18 08:19 09/30/18 10:27 [place] 5-325 PO 1 each Q4HR PRN Administration Moderate Pain Hydrocodone Bitart/Acetaminophen 1 each 09/30/18 10:50 10/01/18 08:33 [place] 5-325 PO 1 each Q6H PRN Administration Moderate Pain Albuterol/Ipratropium 3 ml 09/30/18 10:50 09/30/18 20:24 Duoneb 0.5 Mg-3 Mg/3 Ml Soln INHALATION 3 ml RT-TID PRN Administration Shortness Of Breath Alprazolam 0.25 mg 09/30/18 08:19 09/30/18 18:18 Xanax PO 0.25 mg Q6HR PRN Administration Anxiety Amlodipine Besylate 5 mg 09/30/18 21:00 09/30/18 20:36 Norvasc PO 5 mg HS [facility] Administration Atorvastatin Calcium 40 mg 09/30/18 21:00 09/30/18 20:37 Lipitor PO 40 mg HS [facility] Administration Cholecalciferol 2,000 unit 09/30/18 12:00 09/30/18 15:52 Vitamin D3 PO 2,000 unit DAILY@1200 [facility] Administration Clopidogrel Bisulfate 75 mg 09/30/18 19:00 09/30/18 20:36 Plavix PO 75 mg DAILY@1900 [facility] Administration Famotidine 20 mg 10/01/18 09:00 10/01/18 08:33 Pepcid PO 20 mg DAILY [facility] Administration Furosemide 40 mg 10/01/18 09:00 10/01/18 08:32 Lasix IV 40 mg Q12HR [facility] Administration Insulin Aspart 0 unit 10/01/18 12:30 Novolog SQ ACHS [facility] Protocol Insulin Detemir 8 unit 09/30/18 14:30 09/30/18 16:21 Levemir SQ 8 unit DAILY@1430 [facility] Administration Isosorbide Mononitrate 30 mg 09/30/18 11:15 10/01/18 08:33 Imdur PO 30 mg DAILY [facility] Administration Metoprolol Tartrate 100 mg 09/30/18 11:15 10/01/18 08:32 Lopressor PO 100 mg BID [facility] Administration Montelukast Sodium 10 mg 09/30/18 15:00 09/30/18 15:52 Singulair PO 10 mg DAILY@1500 [facility] Administration Multivitamins 1 each 09/30/18 12:00 09/30/18 15:51 Theragran PO 1 each DAILY@1200 [facility] Administration Naloxone HCl 0.2 mg 09/30/18 08:19 Narcan IV Q2M PRN Opioid Reversal Nitroglycerin 0.4 mg 09/30/18 10:50 Nitrostat SUBLINGUAL Q5M PRN Chest Pain Oxazepam [Serax] 15 15 mg 09/30/18 11:00 09/30/18 20:26 Mg PO Not Given BID [facility] Ondansetron HCl 4 mg 09/30/18 08:19 Zofran IVP Q8HR PRN Nausea And Vomiting Pantoprazole Sodium 40 mg 10/01/18 07:30 10/01/18 08:33 Protonix PO 40 mg AC-BRKFST [facility] Administration Rivaroxaban 15 mg 09/30/18 20:00 09/30/18 20:46 Xarelto PO 15 mg DAILY@2000 [facility] Administration Senna 8.6 mg 09/30/18 21:00 09/30/18 20:36 Senokot PO 8.6 mg HS [facility] Administration Zolpidem Tartrate 5 mg 09/30/18 14:23 Ambien PO HS PRN Insomnia Intake and Output 01/06/1010/01/18 10/01/18 22:59 06:59 14:59 Intake Total 590 Balance 590 Intake: Oral 590 Other: # Voids 2 1 Weight 60.5 kg 09/29/18 23:45 10/01/18 07:34
[2018-10-01 15:06] VITALS: BMI 28.8
[2018-10-01] MEDS: INSULIN DETEMIR 100 UNIT/ML 10 ML VIAL SQ SCH (15:35)
[2018-10-01] MEDS: MONTELUKAST 10 MG TAB PO SCH (17:04)
[2018-10-01] MEDS: FUROSEMIDE 20 MG TAB PO SCH (17:04)
[2018-10-01 17:06] LABS: Glucose,Whole Blood 143 mg/dL (75-99)
[2018-10-01] MEDS: OXAZEPAM 15 MG PO SCH ×2 (19:49→20:16)
[2018-10-01] MEDS: CLOPIDOGREL 75 MG TAB PO SCH (19:56)
[2018-10-01] MEDS: SENNOSIDES 8.6 MG TAB PO SCH (20:01)
[2018-10-01] MEDS: amLODIPine 5 MG TAB PO SCH (20:02)
[2018-10-01] MEDS: RIVAROXABAN 15 MG TAB PO SCH (20:02)
[2018-10-01] MEDS: ATORVASTATIN 40 MG TAB PO SCH (20:02)
[2018-10-01 20:19] LABS: Glucose,Whole Blood 183 mg/dL (75-99)
[2018-10-02 07:07] LABS: Glucose,Whole Blood 146 mg/dL (75-99)
[2018-10-02] MEDS: IPRATROPIUM-ALBUTEROL 3 ML NEB INHALATION PRN ×3 (07:38→20:12)
--- NOTE | 2018-10-02 07:59 | P.PN ---
Subjective Principal diagnosis: So some mild dyspnea The patient still concerns me with some mild hypoxia however she is able to hold conversation. She seems to be more O2 dependent today. She complains of back pain. No voiding symptoms are stated. No significant nausea, vomiting or diarrhea stated. Objective - Vital Signs Vital signs: Vital Signs Temp 98.2 F 10/02/18 07:33 Pulse 88 10/02/18 07:50 Resp 18 10/02/18 07:33 BP 155/81 10/02/18 07:33 Pulse Ox 90 L 10/02/18 07:39 Intake & Output 10/01/18 10/02/18 10/02/18 18:59 06:59 18:59 Intake Total 560 100 Balance 560 100 Weight 60.5 kg 56.7 kg Intake: Oral 560 100 Other: # Voids 2 2 - Constitutional General appearance: Present: no acute distress - EENT Eyes: Absent: abnormal pupil - Neck Neck: Absent: lymphadenopathy - Respiratory Respiratory: bilateral: diminished - Cardiovascular Rhythm: irregularly irregular Heart sounds: normal: S1, S2 Abnormal Heart Sounds: Absent: S3 Gallop - Gastrointestinal General gastrointestinal: Present: soft. Absent: tenderness - Neurologic Neurologic: Present: CNII-XII intact - Psychiatric Psychiatric: Present: A&O x's 3 - Labs CBC & Chem 7: 09/29/18 23:45 10/01/18 07:34 Labs: Abnormal Lab Results - Last 24 Hours (Table) 10/01/18 10/01/18 10/01/18 Range/Units 07:34 11:28 17:05 BUN 30 H (7-17) mg/dL Creatinine 1.75 H (0.52-1.04) mg/dL Glucose 144 H (74-99) mg/dL POC Glucose (mg/dL) 198 H 143 H (75-99) mg/dL AST 39 H (14-36) U/L 10/01/18 10/02/18 Range/Units 20:18 07:05 BUN (7-17) mg/dL Creatinine (0.52-1.04) mg/dL Glucose (74-99) mg/dL POC Glucose (mg/dL) 183 H 146 H (75-99) mg/dL AST (14-36) U/L Assessment and Plan (1) CHF (congestive heart failure) Current Visit: No Status: Acute Code(s): I50.9 - HEART FAILURE, UNSPECIFIED SNOMED Code(s): 93189850 (2) Diabetes Current Visit: No Status: Acute Code(s): E11.9 - TYPE 2 DIABETES MELLITUS WITHOUT COMPLICATIONS SNOMED Code(s): 58164971 (3) Dyspnea Current Visit: No Status: Acute Code(s): R06.00 - DYSPNEA, UNSPECIFIED SNOMED Code(s): 657348389 (4) GERD (gastroesophageal reflux disease) Current Visit: No Status: Acute Code(s): K21.9 - GASTRO-ESOPHAGEAL REFLUX DISEASE WITHOUT ESOPHAGITIS SNOMED Code(s): 631352730 (5) High risk for readmission Current Visit: No Status: Acute Code(s): Z91.89 - OTH PERSONAL RISK FACTORS , NOT ELSEWHERE CLASSIFIED SNOMED Code(s): 357694059 (6) Hyperkalemia Current Visit: No Status: Acute Code(s): E87.5 - HYPERKALEMIA SNOMED Code( s): 01968334 Plan: Continue diuresis today. See if we can get her off of oxygen treatment/therapy. Continue breathing treatments. New patch check CMP in a.m. Anticipate discharge in a.m. if cleared by cardiology and off of oxygen. Continue diuresis Time with Patient: Less than 30
--- NOTE | 2018-10-02 08:14 | XR ---
EXAMINATION TYPE: XR chest 2V DATE OF EXAM: 10/02/2018 COMPARISON: Prior chest x-ray 09/29/2017 and 09/28/2018 HISTORY: Shortness of breath TECHNIQUE: Frontal and lateral views of the chest are obtained. FINDINGS: The patient is rotated. Prominent lung volumes are compatible with underlying COPD. There a re coronary artery calcifications. Multilevel thoracic compression fractures are present, suspected i nterval compression deformity compared to prior chest x-ray 09/28/2018 in the midthoracic spine. Inters titium is increased. Pulmonary artery appears prominently, correlate for possible pulmonary artery hy pertension. No evident pneumothorax or pleural effusion. Patchy basilar density is noted. Heart size is stable, suspect there are prominent epicardial fat pads. IMPRESSION: Probable basilar atelectasis. Interval compression fracture. Emphysema. Possible pulmona ry artery hypertension, interstitial lung disease.
[2018-10-02 08:30] LABS: HCT 33.1 % (34.0-46.0); HGB 10.7 gm/dL (11.4-16.0); MCH 27.7 pg (25.0-35.0); MCHC 32.3 g/dL (31.0-37.0); MCV 85.8 fL (80.0-100.0); Mean Platelet Volume 6.8; Platelet Count 388 k/uL (150-450); RBC 3.86 m/uL (3.80-5.40); RDW 14.5 % (11.5-15.5)
[2018-10-02 08:50] LABS: Albumin 4.1 g/dL (3.5-5.0); Calcium 9.8 mg/dL (8.4-10.2); Potassium 4.7 mmol/L (3.5-5.1); Total Bilirubin 0.6 mg/dL (0.2-1.3)
[2018-10-02] MEDS: HYDROcodone/APAP 5-325MG 1 EACH TAB PO PRN ×3 (09:11→22:55)
[2018-10-02] MEDS: INSULIN ASPART 100 UNIT/ML 1 ML 10 ML VIAL SQ SCH ×4 (09:12→22:57)
[2018-10-02] MEDS: CHOLECALCIFEROL 1,000 UNIT TAB PO SCH (09:13)
[2018-10-02] MEDS: ISOSORBIDE MONONITRATE ER 30 MG TAB.ER.24H PO SCH (09:13)
[2018-10-02] MEDS: PANTOPRAZOLE 40 MG TABLET PO SCH (09:13)
[2018-10-02] MEDS: MULTIVITAMINS, THERA 1 EACH TAB PO SCH (09:13)
[2018-10-02] MEDS: FAMOTIDINE 20 MG TAB PO SCH (09:13)
[2018-10-02] MEDS: METOPROLOL TARTRATE 50 MG TAB PO SCH ×2 (09:13→22:53)
[2018-10-02] MEDS: FUROSEMIDE 20 MG TAB PO SCH ×2 (09:13→16:45)
[2018-10-02 12:08] LABS: Glucose,Whole Blood 200 mg/dL (75-99)
[2018-10-02] MEDS: INSULIN DETEMIR 100 UNIT/ML 10 ML VIAL SQ SCH (16:46)
[2018-10-02] MEDS: MONTELUKAST 10 MG TAB PO SCH (16:48)
[2018-10-02] MEDS: OXAZEPAM 15 MG PO SCH ×3 (16:48→23:33)
[2018-10-02 16:50] LABS: Glucose,Whole Blood 164 mg/dL (75-99)
[2018-10-02] MEDS: CLOPIDOGREL 75 MG TAB PO SCH (18:02)
[2018-10-02 20:50] LABS: Glucose,Whole Blood 235 mg/dL (75-99)
[2018-10-02] MEDS: ATORVASTATIN 40 MG TAB PO SCH (22:53)
[2018-10-02] MEDS: SENNOSIDES 8.6 MG TAB PO SCH (22:53)
[2018-10-02] MEDS: amLODIPine 5 MG TAB PO SCH (22:53)
[2018-10-02] MEDS: RIVAROXABAN 15 MG TAB PO SCH (23:03)
[2018-10-03 07:05] LABS: Glucose,Whole Blood 148 mg/dL (75-99)
[2018-10-03] MEDS: HYDROcodone/APAP 5-325MG 1 EACH TAB PO PRN ×3 (08:27→21:22)
[2018-10-03 08:33] LABS: Albumin 3.9 g/dL (3.5-5.0); Calcium 9.5 mg/dL (8.4-10.2); Potassium 4.1 mmol/L (3.5-5.1); Total Bilirubin 0.6 mg/dL (0.2-1.3); Total Protein 7.7 g/dL (6.3-8.2)
[2018-10-03] MEDS: ISOSORBIDE MONONITRATE ER 30 MG TAB.ER.24H PO SCH (08:38)
[2018-10-03] MEDS: FUROSEMIDE 20 MG TAB PO SCH ×2 (08:38→15:39)
[2018-10-03] MEDS: METOPROLOL TARTRATE 50 MG TAB PO SCH ×2 (08:38→21:23)
[2018-10-03] MEDS: PANTOPRAZOLE 40 MG TABLET PO SCH (08:38)
[2018-10-03] MEDS: FAMOTIDINE 20 MG TAB PO SCH (08:38)
[2018-10-03] MEDS: MULTIVITAMINS, THERA 1 EACH TAB PO SCH (08:38)
[2018-10-03] MEDS: CHOLECALCIFEROL 1,000 UNIT TAB PO SCH (08:39)
[2018-10-03] MEDS: INSULIN ASPART 100 UNIT/ML 1 ML 10 ML VIAL SQ SCH ×4 (08:39→21:23)
[2018-10-03] MEDS: IPRATROPIUM-ALBUTEROL 3 ML NEB INHALATION PRN (09:02)
[2018-10-03] MEDS ORDERED: MAGNESIUM HYDROXIDE 2,400 MG/10 ML CUP PO PRN (11:19)
[2018-10-03] MEDS ORDERED: BISACODYL 10 MG SUPP RECTAL STA (11:20)
[2018-10-03 11:42] LABS: Glucose,Whole Blood 199 mg/dL (75-99)
[2018-10-03] MEDS: INSULIN DETEMIR 100 UNIT/ML 10 ML VIAL SQ SCH (12:57)
[2018-10-03] MEDS: OXAZEPAM 15 MG PO SCH ×2 (12:58→22:45)
--- NOTE | 2018-10-03 15:13 | P.PN ---
Subjective Progress Note Date: 10/03/18 Principal diagnosis: Acute exacerbation CHF 10/03/2018 Patient is seen and evaluated in the room at bedside; continues to require 2 L of oxygen Complaints of abdominal pain most likely secondary to constipation; patient currently takes Senokot which hasn't been helpful; we will start patient on milk of magnesia and no clicks suppository; possible discharge home in next 24 hours if remains stable Objective - Vital Signs Vital signs: Vital Signs Temp 97.6 F 10/03/18 08:00 Pulse 86 10/03/18 09:12 Resp 18 10/03/18 08:00 BP 137/80 10/03/18 08:00 Pulse Ox 92 L 10/03/18 08:00 Intake & Output 10/02/18 10/03/18 10/03/18 18:59 06:59 18:59 Intake Total 100 Output Total 600 Balance -500 Weight 57 kg Intake: Oral 100 Output: Urine 600 Other: # Voids 1 1 1 - Exam - Constitutional General appearance: Present: average body habitus, cooperative, no acute distress - EENT Eyes: Present: anicteric sclerae, EOMI, PERRLA, normal appearance ENT: Present: hearing grossly normal, normal oropharynx Ears: bilateral: normal - Neck Neck: Present: normal ROM. Absent: lymphadenopathy, rigidity, thyromegaly Carotids: negative: bruit present Thyroid: bilateral: normal size, negative: enlarged, nodule - Respiratory Respiratory: bilateral: CTA, negative: rales, rhonchi, wheezing - Cardiovascular Rhythm: regular Heart sounds: normal: S1, S2 Abnormal Heart Sounds: Absent: systolic murmur, diastolic murmur - Gastrointestinal General gastrointestinal: Present: normal bowel sounds, soft. Absent: distended , organomegaly, tenderness - Genitourinary Genitourinary Comment(s): deferred - Integumentary Integumentary: Present: normal turgor. Absent: jaundiced, rash, ulcer - Neurologic Neurologic: Present: CNII-XII intact. Absent: focal deficits - Musculoskeletal Musculoskeletal: Present: gait normal, strength equal bilaterally - Psychiatric Psychiatric: Present: A&O x's 3, appropriate affect, intact judgment & insight - Labs CBC & Chem 7: 10/02/18 07:12 10/03/18 07:14 Labs: Abnormal Lab Results - Last 24 Hours (Table) 10/02/18 10/02/18 10/03/18 Range/Units 16:47 20:42 07:03 BUN (7-17) mg/dL Creatinine (0.52-1.04) mg/dL Glucose (74-99) mg/dL POC Glucose (mg/dL) 164 H 235 H 148 H (75-99) mg/dL AST (14-36) U/L 10/03/18 10/03/18 Range/Units 07:14 11:41 BUN 48 H (7-17) mg/dL Creatinine 2.03 H (0.52-1.04) mg/dL Glucose 146 H (74-99) mg/dL POC Glucose (mg/dL) 199 H (75-99) mg/dL AST 39 H (14-36) U/L Assessment and Plan Assessment: 1. Acute exacerbation CHF - Stable per cardiology evaluation; patient continues to require 2 L of oxygen - We will consult social service for evaluation for home oxygen 2. Hyperkalemia; resolved 3. Constipation; patient given milk of magnesia and nucleic supposed 4. Gastroesophageal reflux disease 5. DVT prophylaxis CODE STATUS; DO NOT RESUSCITATE Time with Patient: Greater than 30
[2018-10-03] MEDS: MONTELUKAST 10 MG TAB PO SCH (15:39)
[2018-10-03 16:51] LABS: Glucose,Whole Blood 157 mg/dL (75-99)
[2018-10-03] MEDS: CLOPIDOGREL 75 MG TAB PO SCH (17:14)
[2018-10-03 19:51] LABS: Glucose,Whole Blood 232 mg/dL (75-99)
[2018-10-03] MEDS: SENNOSIDES 8.6 MG TAB PO SCH (21:22)
[2018-10-03] MEDS: ATORVASTATIN 40 MG TAB PO SCH (21:23)
[2018-10-03] MEDS: amLODIPine 5 MG TAB PO SCH (21:23)
[2018-10-03] MEDS: RIVAROXABAN 15 MG TAB PO SCH (21:23)
[2018-10-04 07:02] LABS: Glucose,Whole Blood 126 mg/dL (75-99)
[2018-10-04] MEDS: HYDROcodone/APAP 5-325MG 1 EACH TAB PO PRN ×4 (07:04→23:33)
[2018-10-04] MEDS: PANTOPRAZOLE 40 MG TABLET PO SCH (07:05)
[2018-10-04] MEDS: INSULIN ASPART 100 UNIT/ML 1 ML 10 ML VIAL SQ SCH ×4 (07:14→20:54)
[2018-10-04 07:50] LABS: Basophils # (A) 0.1 k/uL (0-0.2); Basophils % (A) 1 %; Eosinophils # (A) 0.6 k/uL (0-0.7); Eosinophils % (A) 6 %; HCT 33.8 % (34.0-46.0); HGB 10.7 gm/dL (11.4-16.0); Hypochromasia Slight; Lymphocytes # (A) 2.9 k/uL (1.0-4.8); Lymphocytes % (A) 29 %; MCH 27.2 pg (25.0-35.0); MCHC 31.6 g/dL (31.0-37.0); MCV 86.2 fL (80.0-100.0); Mean Platelet Volume 6.6; Monocytes # (A) 0.7 k/uL (0-1.0); Monocytes % (A) 7 %; Neutrophils # (A) 5.6 k/uL (1.3-7.7); Neutrophils % (A) 55 %; Platelet Count 443 k/uL (150-450); RBC 3.92 m/uL (3.80-5.40); RDW 14.5 % (11.5-15.5); WBC 10.1 k/uL (3.8-10.6)
[2018-10-04] MEDS: FAMOTIDINE 20 MG TAB PO SCH (08:13)
[2018-10-04] MEDS: FUROSEMIDE 20 MG TAB PO SCH ×2 (08:13→15:55)
[2018-10-04] MEDS: METOPROLOL TARTRATE 50 MG TAB PO SCH ×2 (08:13→20:54)
[2018-10-04] MEDS: ISOSORBIDE MONONITRATE ER 30 MG TAB.ER.24H PO SCH (08:14)
[2018-10-04] MEDS: OXAZEPAM 15 MG PO SCH ×2 (08:14→20:54)
[2018-10-04] MEDS: MULTIVITAMINS, THERA 1 EACH TAB PO SCH (08:14)
[2018-10-04] MEDS: CHOLECALCIFEROL 1,000 UNIT TAB PO SCH (08:14)
[2018-10-04 08:17] LABS: Calcium 9.6 mg/dL (8.4-10.2); Potassium 4.8 mmol/L (3.5-5.1)
[2018-10-04 12:01] LABS: Glucose,Whole Blood 151 mg/dL (75-99)
--- NOTE | 2018-10-04 12:16 | P.PN ---
Subjective Progress Note Date: 10/04/18 Principal diagnosis: Acute exacerbation CHF Acute on chronic renal failure 10/03/2018 Patient is seen and evaluated in the room at bedside; continues to require 2 L of oxygen Complaints of abdominal pain most likely secondary to constipation; patient currently takes Senokot which hasn't been helpful; we will start patient on milk of magnesia and no clicks suppository; possible discharge home in next 24 hours if remains stable 10/04/2018 Patient is seen and evaluated in follow-up in the room at bedside Patient's vital signs remained stable with a temperature of 97.9, pulse 83, respiration 18 and blood pressure 164/74; patient's SpO2 does drop down to 92% on room air; plan is to discharge patient home once patient is stable without any oxygen; we will consult social services technician for possible home O2 evaluation Labs are reviewed which shows a stable hemoglobin of 10.7 and downtrending renal function with B UN of 50 and creatinine of 1.75; blood sugars are improved at 133-151 Possible discharge in next 24 hours once home O2 needs are evaluated Objective - Vital Signs Vital signs: Vital Signs Temp 97.9 F 10/04/18 07:14 Pulse 83 10/04/18 07:14 Resp 18 10/04/18 07:14 BP 164/74 10/04/18 07:14 Pulse Ox 92 L 10/04/18 07:14 Intake & Output 10/03/18 10/04/18 10/04/18 18:59 06:59 18:59 Intake Total 306 296 Balance 306 296 Weight 58.5 kg Intake: Oral 306 296 Other: # Voids 1 2 - Exam - Constitutional General appearance: Present: average body habitus, cooperative, no acute distress - EENT Eyes: Present: anicteric sclerae, EOMI, PERRLA, normal appearance ENT: Present: hearing grossly normal, normal oropharynx Ears: bilateral: normal - Neck Neck: Present: normal ROM. Absent: lymphadenopathy, rigidity, thyromegaly Carotids: negative: bruit present Thyroid: bilateral: normal size, negative: enlarged, nodule - Respiratory Respiratory: bilateral: CTA, negative: rales, rhonchi, wheezing - Cardiovascular Rhythm: regular Heart sounds: normal: S1, S2 Abnormal Heart Sounds: Absent: systolic murmur, diastolic murmur - Gastrointestinal General gastrointestinal: Present: normal bowel sounds, soft. Absent: distended , organomegaly, tenderness - Genitourinary Genitourinary Comment(s): deferred - Integumentary Integumentary: Present: normal turgor. Absent: jaundiced, rash, ulcer - Neurologic Neurologic: Present: CNII-XII intact. Absent: focal deficits - Musculoskeletal Musculoskeletal: Present: gait normal, strength equal bilaterally - Psychiatric Psychiatric: Present: A&O x's 3, appropriate affect, intact judgment & insight - Labs CBC & Chem 7: 10/04/18 06:58 10/04/18 06:58 Labs: Abnormal Lab Results - Last 24 Hours (Table) 10/03/18 10/03/18 10/04/18 Range/Units 16:49 19:49 06:58 Hgb 10.7 L (11.4-16.0) gm/dL Hct 33.8 L (34.0-46.0) % BUN (7-17) mg/dL Creatinine (0.52-1.04) mg/dL Glucose (74-99) mg/dL POC Glucose (mg/dL) 157 H 232 H (75-99) mg/dL 10/04/18 10/04/18 10/04/18 Range/Units 06:58 07:01 11:59 Hgb (11.4-16.0) gm/dL Hct (34.0-46.0) % BUN 50 H (7-17) mg/dL Creatinine 1.75 H (0.52-1.04) mg/dL Glucose 133 H (74-99) mg/dL POC Glucose (mg/dL) 126 H 151 H (75-99) mg/dL Assessment and Plan Assessment: 1. Acute exacerbation CHF - Stable per cardiology evaluation; patient continues to require 2 L of oxygen - We will consult social service for evaluation for home oxygen 2. Hyperkalemia; resolved 3. Constipation; patient given milk of magnesia and nucleic supposed 4. Gastroesophageal reflux disease 5. DVT prophylaxis CODE STATUS; DO NOT RESUSCITATE Time with Patient: Greater than 30
[2018-10-04] MEDS: MONTELUKAST 10 MG TAB PO SCH (12:49)
[2018-10-04] MEDS ORDERED: MAGNESIUM HYDROXIDE 2,400 MG/10 ML CUP PO PRN (14:09)
[2018-10-04] MEDS ORDERED: BISACODYL 10 MG SUPP RECTAL STA (14:11)
[2018-10-04] MEDS: INSULIN DETEMIR 100 UNIT/ML 10 ML VIAL SQ SCH (15:55)
[2018-10-04] MEDS: CLOPIDOGREL 75 MG TAB PO SCH (15:55)
[2018-10-04 17:03] LABS: Glucose,Whole Blood 151 mg/dL (75-99)
[2018-10-04 20:02] LABS: Glucose,Whole Blood 150 mg/dL (75-99)
[2018-10-04] MEDS: SENNOSIDES 8.6 MG TAB PO SCH (20:54)
[2018-10-04] MEDS: ATORVASTATIN 40 MG TAB PO SCH (20:54)
[2018-10-04] MEDS: amLODIPine 5 MG TAB PO SCH (20:54)
[2018-10-04] MEDS: RIVAROXABAN 15 MG TAB PO SCH (20:55)
[2018-10-05 06:35] LABS: Basophils % (A) 0 %; Eosinophils # (A) 0.4 k/uL (0-0.7); Eosinophils % (A) 4 %; HCT 31.6 % (34.0-46.0); HGB 10.2 gm/dL (11.4-16.0); Hypochromasia Slight; Lymphocytes # (A) 2.3 k/uL (1.0-4.8); Lymphocytes % (A) 20 %; MCH 27.8 pg (25.0-35.0); MCHC 32.4 g/dL (31.0-37.0); MCV 85.8 fL (80.0-100.0); Mean Platelet Volume 6.6; Monocytes # (A) 0.7 k/uL (0-1.0); Monocytes % (A) 6 %; Neutrophils # (A) 7.8 k/uL (1.3-7.7); Neutrophils % (A) 68 %; Platelet Count 422 k/uL (150-450); RBC 3.68 m/uL (3.80-5.40); RDW 14.2 % (11.5-15.5); WBC 11.5 k/uL (3.8-10.6)
[2018-10-05 06:45] LABS: Calcium 9.3 mg/dL (8.4-10.2); Potassium 4.8 mmol/L (3.5-5.1)
[2018-10-05 06:48] LABS: Glucose,Whole Blood 152 mg/dL (75-99)
--- NOTE | 2018-10-05 07:51 | P.DS ---
Providers Date of admission: 10/03/18 14:37 Attending physician: Georgi Thayer Consults: 09/30/18 10:54 Consult Physician Routine Consulting Provider: Tavia Scott Consult Reason/Comments: chf exacerbation Do you want consulting provider notified?: Yes Primary care physician: Georgi Thayer - Discharge Diagnosis(es) (1) CHF (congestive heart failure) Current Visit: Yes Status: Acute (2) Diabetes Current Visit: No Status: Acute (3) Dyspnea Current Visit: No Status: Acute (4) GERD (gastroesophageal reflux disease) Current Visit: No Status: Acute (5) High risk for readmission Current Visit: No Status: Acute (6) Hyperkalemia Current Visit: No Status: Acute Hospital Course: This is a discharge summary on a 8-year-old white female essentially minute for CHF exacerbation. She was diuresed appropriately and has stabilized, however given her comorbidities and heart issues, she is now somewhat O2 dependent. We will evaluate for home O2. I suspect her frailty is partly from advancing age. She'll discharged in stable but guarded condition secondary to these comorbidities and follow-up with me in one week. Patient Condition at Discharge: Fair Plan - Discharge Summary Discharge Rx Participant: No New Discharge Prescriptions: New Furosemide [Lasix] 20 mg PO BID@0900,1600 tab Magnesium Hydroxide [Milk of Magnesia Concentrate] 2,400 mg PO ONCE PRN ml PRN Reason: Constipation Continue amLODIPine BESYLATE [Norvasc] 5 mg PO HS Omeprazole [PriLOSEC] 20 mg PO AC-BRKFST HYDROcodone/APAP 5-325MG [[place] 5-325] 1 tab PO Q6H PRN PRN Reason: Pain Ipratropium-Albuterol Nebulize [Duoneb 0.5 mg-3 mg/3 ml Soln] 3 ml INHALATION RT-TID PRN PRN Reason: Shortness Of Breath Montelukast [Singulair] 10 mg PO DAILY@1500 Fluticasone/Salmeterol [Advair 250-50 Diskus] 1 puff INHALATION RT-BID Metoprolol Tartrate [Lopressor] 100 mg PO BID Sennosides [Senna] 8.6 mg PO HS Atorvastatin [Lipitor] 40 mg PO HS #30 tab Nitroglycerin Sl Tabs [Nitrostat] 0.4 mg SUBLINGUAL Q5M PRN #25 tab PRN Reason: Chest Pain Isosorbide Mononitrate ER [Imdur] 30 mg PO DAILY #30 tab.er.24h Clopidogrel [Plavix] 75 mg PO DAILY@1899 Rivaroxaban [Xarelto] 15 mg PO DAILY@1999 Acetaminophen [Tylenol] 1,000 mg PO Q4-6H PRN PRN Reason: Pain Multivitamin [Multivitamins Adult Gummies] 1 tab PO DAILY Insulin Detemir [Levemir Flextouch] 8 unit SQ DAILY@1430 metFORMIN HCL [Glucophage] 500 mg PO BID Cholecalciferol (Vitamin D3) [Vitamin D3] 2,000 unit PO DAILY Oxazepam [Serax] 15 mg PO BID #60 capsule Discharge Medication List HYDROcodone/APAP 5-325MG [[place] 5-325] 1 tab PO Q6H PRN 02/02/14 [History] Omeprazole [PriLOSEC] 20 mg PO AC-BRKFST 02/02/14 [History] amLODIPine BESYLATE [Norvasc] 5 mg PO HS 02/02/14 [History] Ipratropium-Albuterol Nebulize [Duoneb 0.5 mg-3 mg/3 ml Soln] 3 ml INHALATION RT -TID PRN 08/20/16 [History] Montelukast [Singulair] 10 mg PO DAILY@1500 05/17/17 [History] Fluticasone/Salmeterol [Advair 250-50 Diskus] 1 puff INHALATION RT-BID 05/18/17 [History] Metoprolol Tartrate [Lopressor] 100 mg PO BID 07/18/17 [History] Sennosides [Senna] 8.6 mg PO HS 07/18/17 [History] Atorvastatin [Lipitor] 40 mg PO HS #30 tab 07/23/17 [Rx] Nitroglycerin Sl Tabs [Nitrostat] 0.4 mg SUBLINGUAL Q5M PRN #25 tab 07/23/17 [Rx ] Isosorbide Mononitrate ER [Imdur] 30 mg PO DAILY #30 tab.er.24h 09/23/17 [Rx] Clopidogrel [Plavix] 75 mg PO DAILY@1900 12/11/17 [History] Rivaroxaban [Xarelto] 15 mg PO DAILY@199912/11/17 [History] Acetaminophen [Tylenol] 1,000 mg PO Q4-6H PRN 05/14/18 [History] Insulin Detemir [Levemir Flextouch] 8 unit SQ DAILY@1430 05/14/18 [History] Multivitamin [Multivitamins Adult Gummies] 1 tab PO DAILY 05/14/18 [History] metFORMIN HCL [Glucophage] 500 mg PO BID 06/09/18 [History] Cholecalciferol (Vitamin D3) [Vitamin D3] 2,000 unit PO DAILY 09/28/18 [History] Furosemide [Lasix] 20 mg PO BID@0900,1600 tab 10/05/18 [Rx] Magnesium Hydroxide [Milk of Magnesia Concentrate] 2,400 mg PO ONCE PRN ml [Rx] Oxazepam [Serax] 15 mg PO BID #60 capsule 10/05/18 [Rx] Follow up Appointment(s)/Referral(s): Georgi Thayer MD [Primary Care Provider] - 1 Week Activity/Diet/Wound Care/Special Instructions: Patient home medication Oxazepam (Serax) is inpatient pharmacy, patient needs to get before going home Discharge Disposition: HOME WITH HOME HEALTH SERVICES
[2018-10-05] MEDS: HYDROcodone/APAP 5-325MG 1 EACH TAB PO PRN (09:17)
[2018-10-05] MEDS: FUROSEMIDE 20 MG TAB PO SCH (09:19)
[2018-10-05] MEDS: PANTOPRAZOLE 40 MG TABLET PO SCH (09:19)
[2018-10-05] MEDS: ISOSORBIDE MONONITRATE ER 30 MG TAB.ER.24H PO SCH (09:20)
[2018-10-05] MEDS: METOPROLOL TARTRATE 50 MG TAB PO SCH (09:20)
[2018-10-05] MEDS: INSULIN ASPART 100 UNIT/ML 1 ML 10 ML VIAL SQ SCH ×2 (09:21→13:49)
[2018-10-05] MEDS: FAMOTIDINE 20 MG TAB PO SCH (09:21)
[2018-10-05 09:30] VITALS: BP 181/84; PULSE 87; RESP 18; TEMP 97.8
[2018-10-05] MEDS ORDERED: MAGNESIUM HYDROXIDE 2,400 MG/10 ML CUP PO STA (11:32)
[2018-10-05 11:41] LABS: Glucose,Whole Blood 283 mg/dL (75-99)
--- NOTE | 2018-10-05 12:01 | XR ---
EXAMINATION TYPE: XR abdomen 1V DATE OF EXAM: 10/05/2018 COMPARISON: NONE HISTORY: Pain TECHNIQUE: One view abdominal series FINDINGS: Right basilar infiltrate. Granuloma left lung base. Curvature the spine with diffuse osteopenia and d egenerative changes. Arthropathy of the shoulders. Bowel gas pattern nonspecific. IMPRESSION: 1. Nonspecific abdomen. 2. Right lower lobe infiltrate
[2018-10-05] MEDS: OXAZEPAM 15 MG PO SCH (13:15)
[2018-10-05] MEDS: MULTIVITAMINS, THERA 1 EACH TAB PO SCH (13:49)
[2018-10-05] MEDS: CHOLECALCIFEROL 1,000 UNIT TAB PO SCH (13:49)
--- NOTE | 2018-10-06 12:01 | CDI ---
Documentation Clarification Form Date: 10/06/2018 11:44:22 AM From: Che Leal RN, CCDS Admit Date: 10/03/2018 2:37:00 PM Patient Name: Sonal Ulloa Visit Number: [id number] Discharge Date: 10/05/2018 2:20:00 PM ATTENTION: The Clinical Documentation Specialists (CDI) and [facility] Coding Staff appreciate your assistance in clarifying documentation. Please respond to the clarification below the line at the bottom and electronically sign. The CDI & [facility] Coding staff will review the response and follow-up if needed. Please note: Queries are made part of the Legal Health Record. If you have any questions, please contact the author of this message via ITS. Dr. Georgi Thayer CKD has been documented and requires further specificity. 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 MTDD
--- NOTE | 2018-10-06 12:10 | CDI ---
Documentation Clarification Form Date: 10/06/2018 12:01:49 PM From: Che Leal RN, CCDS Admit Date: 10/03/2018 2:37:00 PM Patient Name: Sonal Ulloa Visit Number: [id number] Discharge Date: 10/05/2018 2:20:00 PM ATTENTION: The Clinical Documentation Specialists (CDI) and [facility] Coding Staff appreciate your assistance in clarifying documentation. Please respond to the clarification below the line at the bottom and electronically sign. The CDI & [facility] Coding staff will review the response and follow-up if needed. Please note: Queries are made part of the Legal Health Record. If you have any questions, please contact the author of this message via ITS. Dr. Georgi Thayer A diagnosis of anemia lacks specificity to accurately reflect your patients severity of condition and clarification is needed. History/Risk Factors: Chronic anemia, CKD, Chronic diastolic CHF, CAD, DM2, HTN Clinical indicators: Hemoglobin: 10.1/10.7/10.2 Hematocrit: 31.5/33.1/33.8/31.6 Treatment: Labs AM daily In order to capture the severity of condition, please clarify the type of anemia and etiology if known: Chronic blood loss anemia Iron deficiency anemia Anemia due to chronic disease (please specify) Nutritional anemia Anemia of chronic kidney disease Unable to determine Other, please specify (Last Revision: June 2017) the patient has multifactorial anemia of chronic kidney disease and chronic disease. MTDD
== END 2018-10-05 14:20 | disposition home or self-care (01) | DRG 291 ==
LOC: EC 19:16 → 3NMEDONC 09-30 02:52 → 4SSUR 09-30 11:54 → OBSVTOIN 10-03 14:37
PROVIDERS: ADMIT Family Medicine; ATTEND Family Medicine
DX: I13.0 Hypertensive heart and chronic kidney disease with heart failure and stage 1 through stage 4 chronic kidney disease, or unspecified chronic kidney disease (principal); I50.33 Acute on chronic diastolic (congestive) heart failure; N17.9 Acute kidney failure, unspecified; N18.4 Chronic kidney disease, stage 4 (severe); E11.22 Type 2 diabetes mellitus with diabetic chronic kidney disease; E87.5 Hyperkalemia; J44.9 Chronic obstructive pulmonary disease, unspecified; D63.1 Anemia in chronic kidney disease; I35.0 Nonrheumatic aortic (valve) stenosis; I48.0 Paroxysmal atrial fibrillation; E78.5 Hyperlipidemia, unspecified; F32.9 Major depressive disorder, single episode, unspecified; H91.90 Unspecified hearing loss, unspecified ear; I25.10 Atherosclerotic heart disease of native coronary artery without angina pectoris; I25.2 Old myocardial infarction; K21.9 Gastro-esophageal reflux disease without esophagitis; K59.00 Constipation, unspecified; M13.0 Polyarthritis, unspecified; R09.02 Hypoxemia; K44.9 Diaphragmatic hernia without obstruction or gangrene; M54.9 Dorsalgia, unspecified; L30.9 Dermatitis, unspecified; Z66 Do not resuscitate; Z79.01 Long term (current) use of anticoagulants; Z79.02 Long term (current) use of antithrombotics/antiplatelets; Z79.4 Long term (current) use of insulin; Z79.899 Other long term (current) drug therapy; Z95.5 Presence of coronary angioplasty implant and graft; Z87.891 Personal history of nicotine dependence; Z87.440 Personal history of urinary (tract) infections; Z86.73 Personal history of transient ischemic attack (TIA), and cerebral infarction without residual deficits; Z82.49 Family history of ischemic heart disease and other diseases of the circulatory system; Z87.01 Personal history of pneumonia (recurrent); Z98.42 Cataract extraction status, left eye; Z98.41 Cataract extraction status, right eye; Z96.1 Presence of intraocular lens; Z90.49 Acquired absence of other specified parts of digestive tract; Z90.722 Acquired absence of ovaries, bilateral; Z88.0 Allergy status to penicillin; Z88.1 Allergy status to other antibiotic agents; Z88.2 Allergy status to sulfonamides; Z88.8 Allergy status to other drugs, medicaments and biological substances
CPT/HCPCS: 71046; 72072; 74018; 80048; 80053; 83036; 83880; 84484; 85025; 85027; 85379; 93005; 94640; 94760; 96372; 96374; 99284

== ENCOUNTER 2018-10-12 07:26 | Emergency (ER) | payer MEDICARE ==
[2018-10-12 07:30] VITALS: TEMP 97.5
[2018-10-12] MEDS ORDERED: SODIUM CHLORIDE 0.9% 1,000 ML IV STA (07:56)
[2018-10-12] MEDS ORDERED: LIDOCAINE 5% PATCH TOPICAL STA (07:57)
--- NOTE | 2018-10-12 08:03 | ED ---
General Adult HPI - General Chief complaint: Back Pain/Injury Stated complaint: back pain Time Seen by Provider: 10/12/18 07:45 Source: patient, RN notes reviewed, old records reviewed Mode of arrival: EMS Limitations: no limitations - History of Present Illness Initial comments: Patient's an 88-year-old female presented to the emergency room today by EMS, the chief complaint of increased lower back pain she states been present for the past 2 weeks denies any injury or trauma states she was seen here in the hospital for this. States she was not told anything. She's been trying Tylenol with little relief the symptoms. Denies any lumbar radiculopathy. Denies any bowel or bladder incontinence retention. Does admit the pains worse with certain movements. States feels a midline lower back. Denies any other complaints. States is same pain she's been expressing over the past 2 weeks. She does admit to some abdominal pain today. Patient denies any recent fever, chills, shortness of breath, chest pain, nausea or vomiting, numbness or tingling, headaches or visual changes, or any other complaints. - Related Data Home Medications Medication Instructions Recorded Confirmed HYDROcodone/APAP 5-325MG [[place] 1 tab PO Q6H PRN 02/02/14 10/12/18 5-325] Omeprazole [PriLOSEC] 20 mg PO AC-BRKFST 02/02/14 10/12/18 amLODIPine BESYLATE [Norvasc] 5 mg PO 02/02/14 10/12/18 Ipratropium-Albuterol Nebulize 3 ml INHALATION RT-TID PRN 08/20/16 10/12/18 [Duoneb 0.5 mg-3 mg/3 ml Soln] Montelukast [Singulair] 10 mg PO DAILY@1500 05/17/17 10/12/18 Fluticasone/Salmeterol [Advair 1 puff INHALATION RT-BID 05/18/17 10/12/18 250-50 Diskus] Metoprolol Tartrate [Lopressor] 100 mg PO BID 07/18/17 10/12/18 Sennosides [Senna] 8.6 mg PO HS 07/18/17 10/12/18 Rivaroxaban [Xarelto] 15 mg PO DAILY@199912/11/17 10/12/18 Acetaminophen [Tylenol] 1,000 mg PO Q4H PRN 05/14/18 10/12/18 Insulin Detemir [Levemir Flextouch] 8 unit SQ DAILY@1430 05/14/18 10/12/18 Multivitamin [Multivitamins Adult 1 tab PO DAILY 05/14/18 10/12/18 Gummies] metFORMIN HCL [Glucophage] 500 mg PO BID 06/09/18 10/12/18 Cholecalciferol (Vitamin D3) 2,000 unit PO DAILY 09/28/18 10/12/18 [Vitamin D3] Aspirin EC [Ecotrin Low Dose] 81 mg PO DAILY 10/12/18 10/12/18 Previous Rx's Medication Instructions Recorded Atorvastatin [Lipitor] 40 mg PO HS #30 tab 07/23/17 Nitroglycerin Sl Tabs [Nitrostat] 0.4 mg SUBLINGUAL Q5M PRN #25 tab 07/23/17 Isosorbide Mononitrate ER [Imdur] 30 mg PO DAILY #30 tab.er.24h 09/23/17 Furosemide [Lasix] 20 mg PO BID@0900,1600 tab 10/05/18 Magnesium Hydroxide [Milk of 2,400 mg PO ONCE PRN ml 10/05/18 Magnesia Concentrate] Oxazepam [Serax] 15 mg PO BID #60 capsule 10/05/18 Lidocaine [Lidoderm 5% Patch] 1 patch TRANSDERM DAILY #7 patch 10/12/18 Lidocaine [Lidoderm 5% Patch] 1 patch TRANSDERM DAILY #7 patch 10/12/18 Allergies Allergy/AdvReac Type Severity Reaction Status Date / Time amoxicillin trihydrate Allergy Unknown Verified 10/12/18 07:48 [From Augmentin] clindamycin HCl Allergy Unknown Verified 10/12/18 07:48 [From Cleocin] clindamycin palmitate HCl Allergy Unknown Verified 10/12/18 07:48 [From Cleocin] clindamycin phosphate Allergy Unknown Verified 10/12/18 07:48 [From Cleocin] codeine Allergy Unknown Verified 10/12/18 07:48 lorazepam [From Ativan] Allergy Confusion Verified 10/12/18 07:48 nitrofurantoin Allergy Unknown Verified 10/12/18 07:48 [From Macrobid] nitrofurantoin Allergy Unknown Verified 10/12/18 07:48 macrocrystalline [From Macrobid] Penicillins Allergy Unknown Verified 10/12/18 07:48 potassium clavulanate Allergy Unknown Verified 10/12/18 07:48 [From Augmentin] prednisone Allergy Unknown Verified 10/12/18 07:48 quinine Allergy Unknown Verified 10/12/18 07:48 Sulfa (Sulfonamide Allergy Unknown Verified 10/12/18 07:48 Antibiotics) sulfamethoxazole Allergy Unknown Verified 10/12/18 07:48 [From Bactrim] trimethoprim [From Bactrim] Allergy Unknown Verified 10/12/18 07:48 Review of Systems ROS Statement: Those systems with pertinent positive or pertinent negative responses have been documented in the HPI. ROS Other: All systems not noted in ROS Statement are negative. Past Medical History Past Medical History: Coronary Artery Disease (CAD), Chest Pain / Angina, Heart Failure, COPD, CVA/TIA, Diabetes Mellitus, GERD/Reflux, Hearing Disorder / Deafness, Hyperlipidemia, Hypertension, Myocardial Infarction (ND), Osteoarthritis (OA), Pneumonia, Renal Disease, Skin Disorder Additional Past Medical History / Comment(s): IDDM type II, frequent pneumonia, aspiration pneumonia with sepsis, renal insufficiency, recurrent UTIs, TIA x 3, difficulty swallowing-crushes meds and puts them in yogurt-past EGD/dilations, anemia, eczema, "lazy bowel" but pt states anymore she goes from diarrhea to constipation easily, generalized arthritis, chronic baci pain, hiatal hernia Last Myocardial Infarction Date:: 1998, 09/21/17 History of Any Multi-Drug Resistant Organisms: VRE Date of last positivie culture/infection: 10/07/17 MDRO Source:: VRE URINE Past Surgical History: Cholecystectomy, Heart Catheterization With Stent Additional Past Surgical History / Comment(s): cataracts w/ lens implants, ectopic with one ovary/tube removed, heart caths :04/30/96 stent to rca , 03/18/2000 stent to mid rca, 07/22/17 stent to lad Past Anesthesia/Blood Transfusion Reactions: Previous Problems w/ Anesthesia Additional Past Anesthesia/Blood Transfusion Reaction / Comment(s): difficulty breathing after anesthesia Date of Last Stent Placement:: 06/2017 Past Psychological History: Depression Smoking Status: Former smoker Past Alcohol Use History: None Reported Past Drug Use History: None Reported - Past Family History Father History Unknown: Yes Family Medical History: Myocardial Infarction (ND) Additional Family Medical History / Comment(s): Father had a ND at the age of 50 yrs. He lived to be 75yrs old. Mother History Unknown: Yes Family Medical History: Myocardial Infarction (ND) Additional Family Medical History / Comment(s): Mother of a ND at about age 80yrs. General Exam - General Exam Comments Initial Comments: General: The patient is awake and alert, in no distress, and does not appear acutely ill. Eye: There is normal conjunctiva bilaterally. No signs of icterus. Ears, nose, mouth and throat: There are moist mucous membranes and no oral lesions. Neck: The neck is supple, there is no tenderness or JVD. Cardiovascular: There is a regular rate and rhythm. No murmur, rub or gallop is appreciated. Respiratory: Lungs are clear to auscultation, respirations are non-labored, breath sounds are equal. No wheezes, stridor, rales, or rhonchi. Gastrointestinal: Abdomen soft on palpation. Mild tenderness to left side of the abdomen. No rebound, guarding. Musculoskeletal: Normal appearance of the thoracic lumbar spine with no step- off or deformity. Mild tenderness lower lumbar. Paravertebral tender on the right side. Sensations intact. Radial and pedal pulses 2+. Neurological: A&O x 3. CN II-XII intact, There are no obvious motor or sensory deficits. Coordination appears grossly intact. Speech is normal. Skin: Skin is warm and dry and no rashes or lesions are noted. Psychiatric: Cooperative, appropriate mood & affect, normal judgment. Limitations: no limitations Course Vital Signs 10/12/18 10/12/18 10/12/18 07:28 08:12 09:26 Temperature 97.5 F L Pulse Rate 85 68 83 Respiratory 16 18 18 Rate Blood Pressure 110/79 117/52 163/66 O2 Sat by Pulse 97 98 99 Oximetry Medical Decision Making - Medical Decision Making Patient reexamined at this time shows no signs of distress. Her CT the abdomen and pelvis is negative for any acute abnormalities. Patient's labs been reviewed does show stable. Creatinine. Patient's lipase mildly elevated 416. Patient resting comfortable at this time was given a Lidoderm patch and does admit to improvement. Options were discussed with patient about admission to the hospital she has declined per she states she does have an appointment with her family doctor this afternoon at 3 PM. She states was like to try to make this. Patient will be discharged home with prescription for Lidoderm patch. Advised that she can continue her pain medication at home. Advised return for any other concerns. - Lab Data Result diagrams: 10/12/18 08:08 10/12/18 08:08 Lab Results 10/12/18 10/12/18 10/12/18 Range/Units 08:08 08:08 08:08 WBC 10.8 H (3.8-10.6) k/uL RBC 3.71 L (3.80-5.40) m/uL Hgb 10.1 L (11.4-16.0) gm/dL Hct 31.4 L (34.0-46.0) % MCV 84.6 (80.0-100.0) fL MCH 27.3 (25.0-35.0) pg MCHC 32.3 (31.0-37.0) g/dL RDW 14.2 (11.5-15.5) % Plt Count 530 H (150-450) k/uL Neutrophils % 48 % Lymphocytes % 32 % Monocytes % 7 % Eosinophils % 8 % Basophils % 1 % Neutrophils # 5.2 (1.3-7.7) k/uL Lymphocytes # 3.5 (1.0-4.8) k/uL Monocytes # 0.8 (0-1.0) k/uL Eosinophils # 0.9 H (0-0.7) k/uL Basophils # 0.1 (0-0.2) k/uL Hypochromasia Slight PT 10.4 (9.0-12.0) sec INR 1.0 (<1.2) APTT 27.4 (22.0-30.0) sec Sodium 141 (137-145) mmol/L Potassium 4.6 (3.5-5.1) mmol/L Chloride 108 H (98-107) mmol/L Carbon Dioxide 22 (22-30) mmol/L Anion Gap 11 mmol/L BUN 39 H (7-17) mg/dL Creatinine 1.82 H (0.52-1.04) mg/dL Est GFR (CKD-EPI)AfAm 29 (>60 ml/min/1.73 sqM) Est GFR (CKD-EPI)NonAf 25 (>60 ml/min/1.73 sqM) Glucose 113 H (74-99) mg/dL Calcium 9.8 (8.4-10.2) mg/dL Total Bilirubin 0.5 (0.2-1.3) mg/dL AST 33 (14-36) U/L ALT 27 (9-52) U/L Alkaline Phosphatase 96 (38-126) U/L Total Protein 7.5 (6.3-8.2) g/dL Albumin 3.8 (3.5-5.0) g/dL Amylase 100 (30-110) U/L Lipase 416 H (23-300) U/L Urine Color Urine Appearance (Clear) Urine pH (5.0-8.0) Ur Specific [place] (1.001-1.035) Urine Protein (Negative) Urine Glucose (UA) (Negative) Urine Ketones (Negative) Urine Blood (Negative) Urine Nitrite (Negative) Urine Bilirubin (Negative) Urine Urobilinogen (<2.0) mg/dL Ur Leukocyte Esterase (Negative) Urine RBC (0-5) /hpf Urine WBC (0-5) /hpf Ur Squamous Epith Cells (0-4) /hpf Urine Mucus (None) /hpf 10/12/18 Range/Units 09:25 WBC (3.8-10.6) k/uL RBC (3.80-5.40) m/uL Hgb (11.4-16.0) gm/dL Hct (34.0-46.0) % MCV (80.0-100.0) fL MCH (25.0-35.0) pg MCHC (31.0-37.0) g/dL RDW (11.5-15.5) % Plt Count (150-450) k/uL Neutrophils % % Lymphocytes % % Monocytes % % Eosinophils % % Basophils % % Neutrophils # (1.3-7.7) k/uL Lymphocytes # (1.0-4.8) k/uL Monocytes # (0-1.0) k/uL Eosinophils # (0-0.7) k/uL Basophils # (0-0.2) k/uL Hypochromasia PT (9.0-12.0) sec INR (<1.2) APTT (22.0-30.0) sec Sodium (137-145) mmol/L Potassium (3.5-5.1) mmol/L Chloride (98-107) mmol/L Carbon Dioxide (22-30) mmol/L Anion Gap mmol/L BUN (7-17) mg/dL Creatinine (0.52-1.04) mg/dL Est GFR (CKD-EPI)AfAm (>60 ml/min/1.73 sqM) Est GFR (CKD-EPI)NonAf (>60 ml/min/1.73 sqM) Glucose (74-99) mg/dL Calcium (8.4-10.2) mg/dL Total Bilirubin (0.2-1.3) mg/dL AST (14-36) U/L ALT (9-52) U/L Alkaline Phosphatase (38-126) U/L Total Protein (6.3-8.2) g/dL Albumin (3.5-5.0) g/dL Amylase (30-110) U/L Lipase (23-300) U/L Urine Color Yellow Urine Appearance Clear (Clear) Urine pH 5.5 (5.0-8.0) Ur Specific [place] 1.010 (1.001-1.035) Urine Protein 1+ H (Negative) Urine Glucose (UA) Negative (Negative) Urine Ketones Negative (Negative) Urine Blood Negative (Negative) Urine Nitrite Negative (Negative) Urine Bilirubin Negative (Negative) Urine Urobilinogen <2.0 (<2.0) mg/dL Ur Leukocyte Esterase Negative (Negative) Urine RBC <1 (0-5) /hpf Urine WBC <1 (0-5) /hpf Ur Squamous Epith Cells <1 (0-4) /hpf Urine Mucus Rare H (None) /hpf Disposition Clinical Impression: Acute low back pain Disposition: HOME SELF-CARE Condition: Good Instructions (If sedation given, give patient instructions): Acute Low Back Pain (ED) Additional Instructions: Please use medication as discussed. Please follow-up with family doctor with scheduled appointment this afternoon. Please return to emergency room if the symptoms increase or worsen or for any other concerns. Prescriptions: Lidocaine [Lidoderm 5% Patch] 1 patch TRANSDERM DAILY #7 patch Lidocaine [Lidoderm 5% Patch] 1 patch TRANSDERM DAILY #7 patch Is patient prescribed a controlled substance at d/c from ED?: No Referrals: Georgi Thayer MD [Primary Care Provider] - 1-2 days Time of Disposition: 09:57
[2018-10-12 08:15] VITALS: RESP 18
[2018-10-12 08:28] LABS: Basophils # (A) 0.1 k/uL (0-0.2); Basophils % (A) 1 %; Eosinophils # (A) 0.9 k/uL (0-0.7); Eosinophils % (A) 8 %; HCT 31.4 % (34.0-46.0); HGB 10.1 gm/dL (11.4-16.0); Hypochromasia Slight; Lymphocytes # (A) 3.5 k/uL (1.0-4.8); Lymphocytes % (A) 32 %; MCH 27.3 pg (25.0-35.0); MCHC 32.3 g/dL (31.0-37.0); MCV 84.6 fL (80.0-100.0); Mean Platelet Volume 6.4; Monocytes # (A) 0.8 k/uL (0-1.0); Monocytes % (A) 7 %; Neutrophils # (A) 5.2 k/uL (1.3-7.7); Neutrophils % (A) 48 %; Platelet Count 530 k/uL (150-450); RBC 3.71 m/uL (3.80-5.40); RDW 14.2 % (11.5-15.5); WBC 10.8 k/uL (3.8-10.6)
[2018-10-12 08:37] LABS: Albumin 3.8 g/dL (3.5-5.0); Calcium 9.8 mg/dL (8.4-10.2); Potassium 4.6 mmol/L (3.5-5.1); Total Bilirubin 0.5 mg/dL (0.2-1.3); Total Protein 7.5 g/dL (6.3-8.2)
[2018-10-12 08:39] LABS: Partial Thromboplastin Time 27.4 sec (22.0-30.0); Prothrombin Time 10.4 sec (9.0-12.0)
--- NOTE | 2018-10-12 09:28 | CT ---
EXAMINATION TYPE: CT abdomen pelvis wo con DATE OF EXAM: 10/12/2018 HISTORY: Back pain. Right-sided pain. CT DLP: 390.6 mGycm. Automated Exposure Control for Dose Reduction was Utilized. TECHNIQUE: CT scan of the abdomen and pelvis is performed without oral or IV contrast. COMPARISON: CT abdomen and pelvis September 20, 2015 FINDINGS: Within the limitations of a non-contrast study, the following observations are made. LUNG BASES: Calcification at level of mitral and aortic valve is redemonstrated. Cardiomegaly is agai n seen. There is persistent right greater than left linear and slight nodular bibasilar scarring and/ or atelectasis. LIVER/GB: Cholecystectomy clips are redemonstrated. PANCREAS: No significant abnormality is seen. SPLEEN: No calcifications throughout the spleen are again seen. ADRENALS: No significant abnormality is seen. KIDNEYS: Cortical thinning in both kidneys is seen. Central calcifications both kidneys favor vascula r etiology. There is 4.7 cm simple appearing cyst anteriorly exophytically at right kidney mid pole l evel axial image 47 redemonstrated. A few smaller cysts throughout the left kidney are again seen. Bl adder is mildly distended to the upper pelvis similar to prior. BOWEL: Diverticula throughout left and sigmoid colon are redemonstrated. No CT evidence for acute div erticulitis. No suspicious small or large bowel dilatation. Evaluation bowel slightly suboptimal seco ndary to lack of enteric contrast. GENITAL ORGANS: Anteverted peripheral calcified uterus is redemonstrated. LYMPH NODES: No greater than 1cm abdominal or pelvic lymph nodes are appreciated. OSSEOUS STRUCTURES: Demineralization is present. Mild to moderate compression fracture L2 level is ag ain seen with slight posterior retropulsion. There is multilevel spurring throughout the thoracolumba r spine. Facet arthropathy is seen in mid to lower lumbar levels. OTHER: There is fat-containing umbilical hernia axial image 76 redemonstrated. Fairly severe plaque t hroughout the aorta extending into branch vessels is redemonstrated. IMPRESSION: No suspicious new or acute finding identified on noncontrast CT to account for patient's symptoms.
[2018-10-12 09:51] LABS: Appearance,Urine Clear (Clear); Bilirubin,Urine Negative (Negative); Blood,Urine Negative (Negative); Color,Urine Yellow; Glucose,Urine (UA) Negative (Negative); Ketones,Urine Negative (Negative); Leukocyte Esterase,Urine Negative (Negative); Mucus,Urine Rare /hpf; Nitrite,Urine Negative (Negative); PH, Urine 5.5 (5.0-8.0); Protein,Urine 1+ (Negative); RBC,Urine <1 /hpf (0-5); Squamous Epithelial Cell,Urine <1 /hpf (0-4); Urobilinogen,Urine <2.0 mg/dL (<2.0)
[2018-10-12 10:04] VITALS: BP 120/91; PULSE 75
== END 2018-10-12 10:13 | disposition home or self-care (01) ==
LOC: EC 07:26
DX: M54.5 Low back pain (principal); R74.8 Abnormal levels of other serum enzymes; R10.9 Unspecified abdominal pain; I25.10 Atherosclerotic heart disease of native coronary artery without angina pectoris; I11.0 Hypertensive heart disease with heart failure; I50.9 Heart failure, unspecified; J44.9 Chronic obstructive pulmonary disease, unspecified; E11.9 Type 2 diabetes mellitus without complications; K21.9 Gastro-esophageal reflux disease without esophagitis; E78.5 Hyperlipidemia, unspecified; I25.2 Old myocardial infarction; Z95.5 Presence of coronary angioplasty implant and graft; Z86.73 Personal history of transient ischemic attack (TIA), and cerebral infarction without residual deficits; Z87.891 Personal history of nicotine dependence; Z90.49 Acquired absence of other specified parts of digestive tract; Z53.29 Procedure and treatment not carried out because of patient's decision for other reasons; Z79.51 Long term (current) use of inhaled steroids; Z79.01 Long term (current) use of anticoagulants; Z79.4 Long term (current) use of insulin; Z79.82 Long term (current) use of aspirin; Z79.899 Other long term (current) drug therapy; Z88.0 Allergy status to penicillin; Z88.1 Allergy status to other antibiotic agents; Z88.5 Allergy status to narcotic agent; Z88.8 Allergy status to other drugs, medicaments and biological substances; Z88.2 Allergy status to sulfonamides
CPT/HCPCS: 36415; 74176; 80053; 81001; 82150; 83690; 85025; 85610; 85730; 96360; 96361; 99284

== ENCOUNTER 2018-10-20 19:35 | Emergency (ER) | payer MEDICARE ==
--- NOTE | 2018-10-20 20:14 | ED ---
General Adult HPI - General Source: patient, family, RN notes reviewed, old records reviewed Mode of arrival: wheelchair Limitations: no limitations <Blue Yang - Last Filed: 10/20/18 20:11> <Star Samuel - Last Filed: 10/23/18 08:22> - General Chief complaint: Abdominal Pain Stated complaint: Side & back pain Time Seen by Provider: 10/20/18 19:55 - History of Present Illness Initial comments: 88-year-old presenting for reevaluation of upper abdominal pain. Patient's symptoms have been present for the past several weeks, she reports constant upper abdominal pain. Denies chest pain. She does report some dyspnea however this is unchanged from baseline. Denies fever or chills. Denies vomiting. She 's had intermittent diarrhea and constipation. She has had trouble with constipation for many years. She reports decreased appetite. She's been seen by her pharmaceutical scientist, and been admitted to her primary care physician with these same symptoms. Symptoms persist and she's been unable to follow up as an outpatient with her primary care physician. Previous history of cholecystectomy (Blue Yang) - Related Data Home Medications Medication Instructions Recorded Confirmed HYDROcodone/APAP 5-325MG [[place] 1 tab PO HS PRN 02/02/14 10/20/18 5-325] Omeprazole [PriLOSEC] 20 mg PO AC-BRKFST 02/02/14 10/20/18 amLODIPine BESYLATE [Norvasc] 5 mg PO HS 02/02/14 10/20/18 Ipratropium-Albuterol Nebulize 3 ml INHALATION RT-TID PRN 08/20/16 10/20/18 [Duoneb 0.5 mg-3 mg/3 ml Soln] Montelukast [Singulair] 10 mg PO DAILY@1500 05/17/17 10/20/18 Fluticasone/Salmeterol [Advair 1 puff INHALATION RT-BID 05/18/17 10/20/18 250-50 Diskus] Metoprolol Tartrate [Lopressor] 100 mg PO BID 07/18/17 10/20/18 Sennosides [Senna] 8.6 mg PO HS 07/18/17 10/20/18 Rivaroxaban [Xarelto] 15 mg PO HS@199912/11/17 10/20/18 Acetaminophen [Tylenol] 1,000 mg PO Q4H PRN 05/14/18 10/20/18 Insulin Detemir [Levemir Flextouch] 8 unit SQ DAILY@1430 05/14/18 10/20/18 Multivitamin [Multivitamins Adult 1 tab PO DAILY 05/14/18 10/20/18 Gummies] metFORMIN HCL [Glucophage] 500 mg PO BID 06/09/18 10/20/18 Cholecalciferol (Vitamin D3) 2,000 unit PO DAILY 09/28/18 10/20/18 [Vitamin D3] Aspirin EC [Ecotrin Low Dose] 81 mg PO Q48H 10/12/18 10/20/18 Previous Rx's Medication Instructions Recorded Atorvastatin [Lipitor] 40 mg PO HS #30 tab 07/23/17 Nitroglycerin Sl Tabs [Nitrostat] 0.4 mg SUBLINGUAL Q5M PRN #25 tab 07/23/17 Isosorbide Mononitrate ER [Imdur] 30 mg PO DAILY #30 tab.er.24h 09/23/17 Furosemide [Lasix] 20 mg PO BID@0900,1600 tab 10/05/18 Oxazepam [Serax] 15 mg PO BID #60 capsule 10/05/18 Allergies Allergy/AdvReac Type Severity Reaction Status Date / Time amoxicillin trihydrate Allergy Unknown Verified 10/20/18 20:18 [From Augmentin] clindamycin HCl Allergy Unknown Verified 10/20/18 20:18 [From Cleocin] clindamycin palmitate HCl Allergy Unknown Verified 10/20/18 20:18 [From Cleocin] clindamycin phosphate Allergy Unknown Verified 10/20/18 20:18 [From Cleocin] codeine Allergy Unknown Verified 10/20/18 20:18 lorazepam [From Ativan] Allergy Confusion Verified 10/20/18 20:18 nitrofurantoin Allergy Unknown Verified 10/20/18 20:18 [From Macrobid] nitrofurantoin Allergy Unknown Verified 10/20/18 20:18 macrocrystalline [From Macrobid] Penicillins Allergy Unknown Verified 10/20/18 20:18 potassium clavulanate Allergy Unknown Verified 10/20/18 20:18 [From Augmentin] prednisone Allergy Unknown Verified 10/20/18 20:18 quinine Allergy Unknown Verified 10/20/18 20:18 Sulfa (Sulfonamide Allergy Unknown Verified 10/20/18 20:18 Antibiotics) sulfamethoxazole Allergy Unknown Verified 10/20/18 20:18 [From Bactrim] trimethoprim [From Bactrim] Allergy Unknown Verified 10/20/18 20:18 Review of Systems ROS Other: All systems not noted in ROS Statement are negative. <Blue Yang - Last Filed: 10/20/18 20:11> ROS Other: All systems not noted in ROS Statement are negative. <Star Samuel - Last Filed: 10/23/18 08:22> ROS Statement: Those systems with pertinent positive or pertinent negative responses have been documented in the HPI. Past Medical History Past Medical History: Coronary Artery Disease (CAD), Chest Pain / Angina, Heart Failure, COPD, CVA/TIA, Diabetes Mellitus, GERD/Reflux, Hearing Disorder / Deafness, Hyperlipidemia, Hypertension, Myocardial Infarction (TN), Osteoarthritis (OA), Pneumonia, Renal Disease, Skin Disorder Additional Past Medical History / Comment(s): IDDM type II, frequent pneumonia, aspiration pneumonia with sepsis, renal insufficiency, recurrent UTIs, TIA x 3, difficulty swallowing-crushes meds and puts them in yogurt-past EGD/dilations, anemia, eczema, "lazy bowel" but pt states anymore she goes from diarrhea to constipation easily, generalized arthritis, chronic baci pain, hiatal hernia Last Myocardial Infarction Date:: 1998, 09/21/17 History of Any Multi-Drug Resistant Organisms: VRE Date of last positivie culture/infection: 10/07/17 MDRO Source:: VRE URINE Past Surgical History: Cholecystectomy, Heart Catheterization With Stent Additional Past Surgical History / Comment(s): cataracts w/ lens implants, ectopic with one ovary/tube removed, heart caths :04/30/96 stent to rca , 03/18/2000 stent to mid rca, 07/22/17 stent to lad Past Anesthesia/Blood Transfusion Reactions: Previous Problems w/ Anesthesia Additional Past Anesthesia/Blood Transfusion Reaction / Comment(s): difficulty breathing after anesthesia Date of Last Stent Placement:: 06/2017 Past Psychological History: Depression Smoking Status: Former smoker Past Alcohol Use History: None Reported Past Drug Use History: None Reported - Past Family History Father History Unknown: Yes Family Medical History: Myocardial Infarction (TN) Additional Family Medical History / Comment(s): Father had a TN at the age of 50 yrs. He lived to be 75yrs old. Mother History Unknown: Yes Family Medical History: Myocardial Infarction (TN) Additional Family Medical History / Comment(s): Mother of a TN at about age 80yrs. <Blue Yang - Last Filed: 10/20/18 20:11> General Exam Limitations: no limitations General appearance: alert, in no apparent distress Head exam: Present: atraumatic, normocephalic Eye exam: Present: normal appearance, PERRL ENT exam: Present: normal exam Neck exam: Present: normal inspection. Absent: tenderness, meningismus Respiratory exam: Present: normal lung sounds bilaterally. Absent: respiratory distress, wheezes Cardiovascular Exam: Present: regular rate, normal rhythm GI/Abdominal exam: Present: soft, distended, tenderness (Generalized tenderness to palpation, worse in the bilateral upper quadrants). Absent: guarding, rebound Extremities exam: Present: normal inspection, normal capillary refill. Absent: pedal edema Neurological exam: Present: alert, oriented X3, CN II-XII intact. Absent: motor sensory deficit Psychiatric exam: Present: normal affect, normal mood Skin exam: Present: warm, dry, intact. Absent: cyanosis, diaphoretic <Blue Yang N - Last Filed: 10/20/18 20:11> Vital Signs 10/20/18 10/20/18 10/20/18 19:42 21:42 23:07 Temperature 98.5 F 98.9 F Pulse Rate 95 90 98 Respiratory 17 19 18 Rate Blood Pressure 132/69 129/68 110/69 O2 Sat by Pulse 98 97 95 Oximetry 10/21/18 10/21/18 10/21/18 01:54 05:22 06:53 Temperature Pulse Rate 105 H 70 Respiratory 18 98 H 17 Rate Blood Pressure 148/86 140/83 O2 Sat by Pulse 96 96 Oximetry 10/21/18 10/21/18 07:38 08:29 Temperature 98.1 F Pulse Rate 99 80 Respiratory 18 18 Rate Blood Pressure 151/92 151/72 O2 Sat by Pulse 100 100 Oximetry Medical Decision Making <Blue Yang - Last Filed: 01/29/19 20:11> - Lab Data Result diagrams: 10/20/18 20:25 10/20/18 20:25 <Star Samuel - Last Filed: 10/23/18 08:22> - Medical Decision Making I receive this patient has a sign out, pending the results of some of her studies. I reviewed the results with the patient, who was still continues to have pain. Given her history there is a concern for possible ischemic colitis, and given the elevated d-dimer, I did order computed tomography scan of the abdomen with contrast. Apparently when the patient went down for this, was changed to a noncontrast study by radiology, due to concerns about patient's GFR. The study did not show evidence of ischemic colitis and I did call the radiologist and discussed with him, he felt that the study was adequate to detect any subtle changes including bowel wall edema and ileus that would accompany ischemic colitis despite the lack of contrast he felt that this would' ve been picked up on the repeat study. I did go and evaluate the patient, and she was feeling better following medication. Given patient and family concerns , they were observed in the emergency department and Dr. Thayer did come and evaluate the patient personally and was arranging appropriate outpatient studies and further care. (Star Samuel) - Lab Data Lab Results 10/20/18 10/20/18 10/20/18 Range/Units 20:06 20:25 20:25 WBC (3.8-10.6) k/uL RBC (3.80-5.40) m/uL Hgb (11.4-16.0) gm/dL Hct (34.0-46.0) % MCV (80.0-100.0) fL MCH (25.0-35.0) pg MCHC (31.0-37.0) g/dL RDW (11.5-15.5) % Plt Count (150-450) k/uL Neutrophils % % Lymphocytes % % Monocytes % % Eosinophils % % Basophils % % Neutrophils # (1.3-7.7) k/uL Lymphocytes # (1.0-4.8) k/uL Monocytes # (0-1.0) k/uL Eosinophils # (0-0.7) k/uL Basophils # (0-0.2) k/uL Hypochromasia PT (9.0-12.0) sec INR (<1.2) APTT (22.0-30.0) sec Sodium 140 (137-145) mmol/L Potassium 4.7 (3.5-5.1) mmol/L Chloride 104 (98-107) mmol/L Carbon Dioxide 23 (22-30) mmol/L Anion Gap 13 mmol/L BUN 40 H (7-17) mg/dL Creatinine 1.68 H (0.52-1.04) mg/dL Est GFR (CKD-EPI)AfAm 31 (>60 ml/min/1.73 sqM) Est GFR (CKD-EPI)NonAf 27 (>60 ml/min/1.73 sqM) Glucose 176 H (74-99) mg/dL Lactic Ac Sepsis Rflx Plasma Lactic Acid Patricio (0.7-2.0) mmol/L Calcium 9.8 (8.4-10.2) mg/dL Total Bilirubin 0.5 (0.2-1.3) mg/dL AST 35 (14-36) U/L ALT 19 (9-52) U/L Alkaline Phosphatase 103 (38-126) U/L Total Creatine Kinase 76 (30-135) U/L CK-MB (CK-2) 1.8 (0.0-2.4) ng/mL CK-MB (CK-2) Rel Index 2.4 Troponin I 0.030 (0.000-0.034) ng/mL Total Protein 7.9 (6.3-8.2) g/dL Albumin 3.9 (3.5-5.0) g/dL Amylase 82 (30-110) U/L Lipase 208 (23-300) U/L Urine Color Yellow Urine Appearance Clear (Clear) Urine pH 5.0 (5.0-8.0) Ur Specific [place] 1.011 (1.001-1.035) Urine Protein 1+ H (Negative) Urine Glucose (UA) Negative (Negative) Urine Ketones Negative (Negative) Urine Blood Negative (Negative) Urine Nitrite Negative (Negative) Urine Bilirubin Negative (Negative) Urine Urobilinogen <2.0 (<2.0) mg/dL Ur Leukocyte Esterase Negative (Negative) Urine RBC <1 (0-5) /hpf Urine WBC 2 (0-5) /hpf Ur Squamous Epith Cells 1 (0-4) /hpf Urine Mucus Rare H (None) /hpf 10/20/18 10/20/18 10/20/18 Range/Units 20:25 20:25 20:25 WBC 9.7 (3.8-10.6) k/uL RBC 3.74 L (3.80-5.40) m/uL Hgb 10.0 L (11.4-16.0) gm/dL Hct 31.9 L (34.0-46.0) % MCV 85.3 (80.0-100.0) fL MCH 26.7 (25.0-35.0) pg MCHC 31.3 (31.0-37.0) g/dL RDW 14.2 (11.5-15.5) % Plt Count 449 (150-450) k/uL Neutrophils % 63 % Lymphocytes % 23 % Monocytes % 6 % Eosinophils % 5 % Basophils % 0 % Neutrophils # 6.1 (1.3-7.7) k/uL Lymphocytes # 2.2 (1.0-4.8) k/uL Monocytes # 0.6 (0-1.0) k/uL Eosinophils # 0.5 (0-0.7) k/uL Basophils # 0.0 (0-0.2) k/uL Hypochromasia Slight PT 10.9 (9.0-12.0) sec INR 1.0 (<1.2) APTT 25.8 (22.0-30.0) sec Sodium (137-145) mmol/L Potassium (3.5-5.1) mmol/L Chloride (98-107) mmol/L Carbon Dioxide (22-30) mmol/L Anion Gap mmol/L BUN (7-17) mg/dL Creatinine (0.52-1.04) mg/dL Est GFR (CKD-EPI)AfAm (>60 ml/min/1.73 sqM) Est GFR (CKD-EPI)NonAf (>60 ml/min/1.73 sqM) Glucose (74-99) mg/dL Lactic Ac Sepsis Rflx Plasma Lactic Acid Patricio 3.4 H* (0.7-2.0) mmol/L Calcium (8.4-10.2) mg/dL Total Bilirubin (0.2-1.3) mg/dL AST (14-36) U/L ALT (9-52) U/L Alkaline Phosphatase (38-126) U/L Total Creatine Kinase (30-135) U/L CK-MB (CK-2) (0.0-2.4) ng/mL CK-MB (CK-2) Rel Index Troponin I (0.000-0.034) ng/mL Total Protein (6.3-8.2) g/dL Albumin (3.5-5.0) g/dL Amylase (30-110) U/L Lipase (23-300) U/L Urine Color Urine Appearance (Clear) Urine pH (5.0-8.0) Ur Specific [place] (1.001-1.035) Urine Protein (Negative) Urine Glucose (UA) (Negative) Urine Ketones (Negative) Urine Blood (Negative) Urine Nitrite (Negative) Urine Bilirubin (Negative) Urine Urobilinogen (<2.0) mg/dL Ur Leukocyte Esterase (Negative) Urine RBC (0-5) /hpf Urine WBC (0-5) /hpf Ur Squamous Epith Cells (0-4) /hpf Urine Mucus (None) /hpf 10/20/18 10/20/18 Range/Units 20:58 23:59 WBC (3.8-10.6) k/uL RBC (3.80-5.40) m/uL Hgb (11.4-16.0) gm/dL Hct (34.0-46.0) % MCV (80.0-100.0) fL MCH (25.0-35.0) pg MCHC (31.0-37.0) g/dL RDW (11.5-15.5) % Plt Count (150-450) k/uL Neutrophils % % Lymphocytes % % Monocytes % % Eosinophils % % Basophils % % Neutrophils # (1.3-7.7) k/uL Lymphocytes # (1.0-4.8) k/uL Monocytes # (0-1.0) k/uL Eosinophils # (0-0.7) k/uL Basophils # (0-0.2) k/uL Hypochromasia PT (9.0-12.0) sec INR (<1.2) APTT (22.0-30.0) sec Sodium (137-145) mmol/L Potassium (3.5-5.1) mmol/L Chloride (98-107) mmol/L Carbon Dioxide (22-30) mmol/L Anion Gap mmol/L BUN (7-17) mg/dL Creatinine (0.52-1.04) mg/dL Est GFR (CKD-EPI)AfAm (>60 ml/min/1.73 sqM) Est GFR (CKD-EPI)NonAf (>60 ml/min/1.73 sqM) Glucose (74-99) mg/dL Lactic Ac Sepsis Rflx Y Plasma Lactic Acid Patricio 1.2 (0.7-2.0) mmol/L Calcium (8.4-10.2) mg/dL Total Bilirubin (0.2-1.3) mg/dL AST (14-36) U/L ALT (9-52) U/L Alkaline Phosphatase (38-126) U/L Total Creatine Kinase (30-135) U/L CK-MB (CK-2) (0.0-2.4) ng/mL CK-MB (CK-2) Rel Index Troponin I (0.000-0.034) ng/mL Total Protein (6.3-8.2) g/dL Albumin (3.5-5.0) g/dL Amylase (30-110) U/L Lipase (23-300) U/L Urine Color Urine Appearance (Clear) Urine pH (5.0-8.0) Ur Specific [place] (1.001-1.035) Urine Protein (Negative) Urine Glucose (UA) (Negative) Urine Ketones (Negative) Urine Blood (Negative) Urine Nitrite (Negative) Urine Bilirubin (Negative) Urine Urobilinogen (<2.0) mg/dL Ur Leukocyte Esterase (Negative) Urine RBC (0-5) /hpf Urine WBC (0-5) /hpf Ur Squamous Epith Cells (0-4) /hpf Urine Mucus (None) /hpf Disposition <Blue Yang - Last Filed: 10/20/18 20:11> Is patient prescribed a controlled substance at d/c from ED?: No <Star Samuel - Last Filed: 10/23/18 08:22> Clinical Impression: Abdominal pain Disposition: HOME SELF-CARE Condition: Fair Instructions (If sedation given, give patient instructions): Abdominal Pain (ED ) Referrals: Georgi Thayer MD [Primary Care Provider] - 1-2 days
[2018-10-20 20:47] LABS: Appearance,Urine Clear (Clear); Bilirubin,Urine Negative (Negative); Blood,Urine Negative (Negative); Color,Urine Yellow; Glucose,Urine (UA) Negative (Negative); Ketones,Urine Negative (Negative); Leukocyte Esterase,Urine Negative (Negative); Mucus,Urine Rare /hpf; Nitrite,Urine Negative (Negative); Protein,Urine 1+ (Negative); RBC,Urine <1 /hpf (0-5); Specific Gravity,Urine 1.011 (1.001-1.035); Squamous Epithelial Cell,Urine 1 /hpf (0-4); Urobilinogen,Urine <2.0 mg/dL (<2.0); WBC,Urine 2 /hpf (0-5)
[2018-10-20 20:53] LABS: Basophils % (A) 0 %; Eosinophils # (A) 0.5 k/uL (0-0.7); Eosinophils % (A) 5 %; HCT 31.9 % (34.0-46.0); Hypochromasia Slight; Lymphocytes # (A) 2.2 k/uL (1.0-4.8); Lymphocytes % (A) 23 %; MCH 26.7 pg (25.0-35.0); MCHC 31.3 g/dL (31.0-37.0); MCV 85.3 fL (80.0-100.0); Mean Platelet Volume 6.2; Monocytes # (A) 0.6 k/uL (0-1.0); Monocytes % (A) 6 %; Neutrophils # (A) 6.1 k/uL (1.3-7.7); Neutrophils % (A) 63 %; Platelet Count 449 k/uL (150-450); RBC 3.74 m/uL (3.80-5.40); RDW 14.2 % (11.5-15.5); WBC 9.7 k/uL (3.8-10.6)
[2018-10-20 20:55] LABS: Albumin 3.9 g/dL (3.5-5.0); Calcium 9.8 mg/dL (8.4-10.2); Potassium 4.7 mmol/L (3.5-5.1); Total Bilirubin 0.5 mg/dL (0.2-1.3); Total Protein 7.9 g/dL (6.3-8.2)
[2018-10-20] MEDS ORDERED: SODIUM CHLORIDE 0.9% 1,000 ML IV SCH (21:00)
[2018-10-20] MEDS ORDERED: SODIUM CHLORIDE 0.9% 500 ML 500 ML IV ONE (21:00)
[2018-10-20 21:01] LABS: Partial Thromboplastin Time 25.8 sec (22.0-30.0); Prothrombin Time 10.9 sec (9.0-12.0)
[2018-10-20 21:06] LABS: Creatine Kinase MB 1.8 ng/mL (0.0-2.4); Troponin I 0.03 ng/mL (0.000-0.034)
--- NOTE | 2018-10-20 21:08 | XR ---
EXAMINATION TYPE: XR KUB DATE OF EXAM: 10/20/2018 COMPARISON: 10/05/2018 HISTORY: Back pain TECHNIQUE: Single view upright FINDINGS: There is no sign of intestinal obstruction or pneumoperitoneum. Fecal pattern is normal. Th ere are chest leads. There is thoracolumbar levoscoliosis. There are no pathologic calcifications ove r the kidneys. There are clips from cholecystectomy. IMPRESSION: Nonacute abdomen.
--- NOTE | 2018-10-20 22:34 | CT ---
EXAMINATION TYPE: CT abdomen pelvis wo con DATE OF EXAM: 10/20/2018 COMPARISON: 10/12/2018 HISTORY: abdominal/flank pain CT DLP: 473.2 mGycm Automated exposure control for dose reduction was used. TECHNIQUE: Helical acquisition of images was performed from the lung bases through the pelvis. FINDINGS: There is patchy linear infiltrate and atelectasis at the lung bases. There is small hiatal hernia. Th ere is no pericardial effusion. Heart is enlarged. There is no pleural effusion. There is mild pleura l thickening at the lung bases. There are clips from cholecystectomy. Liver shows a small calcified granuloma. There is small calcifi ed splenic granuloma. There is no evidence of pancreatic mass. The bile ducts are not dilated. There is no adrenal mass. The kidneys have normal size. There is no hydronephrosis. There are multipl e renal cortical cysts in the largest is on the anterior right kidney and measures 4.5 cm. There is n o retroperitoneal adenopathy. Abdominal aorta is atheromatous. Urinary bladder is large. There is no evidence of a pelvic mass. There is no inguinal hernia. There are multiple sigmoid diverticula. There is no evidence of diverticulitis. There is no mesenteric edema. There is no sign of free air. There is no ascites. There is 50% anterior wedging of L2 vertebral body that appears old. There is umbilic al hernia contains fat. There is no sign of a bowel obstruction. IMPRESSION: FIBROTIC CHANGES AND INFILTRATE AND ATELECTASIS AT THE LUNG BASES UNCHANGED. CARDIOMEGALY. Old L2 com pression fracture. Dilated urinary bladder could relate to chronic bladder outlet obstruction unchang ed. Old granulomatous disease.
[2018-10-21] MEDS ORDERED: MORPHINE SULFATE 4 MG/ML SYRINGE IV STA (00:33)
--- NOTE | 2018-10-21 01:48 | CT ---
EXAMINATION TYPE: CT abdomen pelvis wo con DATE OF EXAM: 10/21/2018 COMPARISON: Yesterday HISTORY: Patient presents with abdominal pain. Dr. Samuel states looking for ischemic bowel. Prior on pacs. CT DLP: 552.9 mGycm Automated exposure control for dose reduction was used. TECHNIQUE: Helical acquisition of images was performed from the lung bases through the pelvis. FINDINGS: There is coarse infiltrate and atelectasis at the lung bases. Heart is enlarged. There is no pericard ial effusion. Thoracic aorta is atheromatous. Abdominal aorta is atheromatous. Liver shows no focal d efect. There are small calcified splenic granuloma. The bile ducts are not dilated. Gallbladder is ab sent. There are bilateral renal cortical cysts that measure up to 4.5 cm. There is no retroperitoneal adenopathy. There is no evidence of pancreatic mass. Urinary bladder is dilated. There is no free fluid in the pelvis. There is no evidence of pelvic mass . There is no inguinal hernia. I see no intestinal wall thickening. There is no bowel dilated. There is no evidence of intestinal ed maldonado. There are a few sigmoid diverticula. The appendix appears normal. There is 50% anterior wedging of L2 vertebral body. There is under local hernia contains fat IMPRESSION: Dilated urinary bladder measures 15 cm unchanged. Old L2 compression fracture unchanged. I do not marii pect intestinal ischemia. There is normal bowel wall thickness and diameter. Lower lobe patchy pulmon bandar infiltrates and atelectasis unchanged.
[2018-10-21] MEDS ORDERED: DICYCLOMINE 20 MG TAB PO STA (03:57)
[2018-10-21 07:39] VITALS: RESP 18
[2018-10-21] MEDS ORDERED: HYDROcodone/APAP 5-325MG 1 EACH TAB PO STA (07:54)
[2018-10-21 08:29] VITALS: BP 151/72; PULSE 80; TEMP 98.1
== END 2018-10-21 08:53 | disposition home or self-care (01) ==
LOC: EC 19:35
DX: R10.11 Right upper quadrant pain (principal); R10.12 Left upper quadrant pain; R06.00 Dyspnea, unspecified; R19.7 Diarrhea, unspecified; R63.0 Anorexia; I25.10 Atherosclerotic heart disease of native coronary artery without angina pectoris; I11.0 Hypertensive heart disease with heart failure; I50.9 Heart failure, unspecified; J44.9 Chronic obstructive pulmonary disease, unspecified; E11.9 Type 2 diabetes mellitus without complications; K21.9 Gastro-esophageal reflux disease without esophagitis; I25.2 Old myocardial infarction; Z86.73 Personal history of transient ischemic attack (TIA), and cerebral infarction without residual deficits; Z87.19 Personal history of other diseases of the digestive system; Z87.01 Personal history of pneumonia (recurrent); Z95.5 Presence of coronary angioplasty implant and graft; Z90.49 Acquired absence of other specified parts of digestive tract; Z87.891 Personal history of nicotine dependence; Z79.51 Long term (current) use of inhaled steroids; Z79.01 Long term (current) use of anticoagulants; Z79.4 Long term (current) use of insulin; Z79.82 Long term (current) use of aspirin; Z79.899 Other long term (current) drug therapy; Z88.0 Allergy status to penicillin; Z88.1 Allergy status to other antibiotic agents; Z88.5 Allergy status to narcotic agent; Z88.8 Allergy status to other drugs, medicaments and biological substances; Z88.2 Allergy status to sulfonamides
CPT/HCPCS: 36415; 74018; 74176; 80053; 81001; 82150; 82550; 82553; 83605; 83690; 84484; 85025; 85610; 85730; 93005; 96361; 96374; 99285

== ENCOUNTER → 2018-11-10 | Outpatient (CLI) | payer MEDICARE ==
[2018-11-10 17:13] LABS: Basophils # (A) 0.1 k/uL (0-0.2); Basophils % (A) 1 %; Eosinophils # (A) 0.5 k/uL (0-0.7); Eosinophils % (A) 7 %; HGB 9.7 gm/dL (11.4-16.0); Hypochromasia Moderate; Lymphocytes # (A) 2.1 k/uL (1.0-4.8); Lymphocytes % (A) 26 %; MCHC 30.4 g/dL (31.0-37.0); MCV 88.6 fL (80.0-100.0); Monocytes # (A) 0.6 k/uL (0-1.0); Monocytes % (A) 7 %; Neutrophils # (A) 4.6 k/uL (1.3-7.7); Neutrophils % (A) 57 %; Platelet Count 372 k/uL (150-450); RBC 3.61 m/uL (3.80-5.40); RDW 15.6 % (11.5-15.5); WBC 7.9 k/uL (3.8-10.6)
[2018-11-10 17:14] LABS: Appearance,Urine Clear (Clear); Bilirubin,Urine Negative (Negative); Blood,Urine Negative (Negative); Color,Urine Yellow; Glucose,Urine (UA) Negative (Negative); Hyaline Casts,Urine 12 /lpf (0-2); Ketones,Urine Negative (Negative); Leukocyte Esterase,Urine Negative (Negative); Mucus,Urine Rare /hpf; Nitrite,Urine Negative (Negative); PH, Urine 5.5 (5.0-8.0); Protein,Urine 1+ (Negative); Specific Gravity,Urine 1.011 (1.001-1.035); Squamous Epithelial Cell,Urine 1 /hpf (0-4); Urobilinogen,Urine <2.0 mg/dL (<2.0); WBC,Urine 1 /hpf (0-5)
[2018-11-11 02:28] LABS: Iron Saturation 11.61 (12.00-45.00)
[2018-11-11 02:35] LABS: Anion Gap 13.6 mmol/L (4.00-12.00); Calcium 9.2 mg/dL (8.7-10.3); Carbon Dioxide 25.4 mmol/L (21.6-31.8); Magnesium 1.5 mg/dL (1.5-2.4); Phosphorus 3.7 mg/dL (2.4-5.1); Potassium 4.3 mmol/L (3.5-5.5); Uric Acid 11.6 mg/dL (2.9-7.7)
[2018-11-11 02:36] LABS: Vitamin D 25 Hydroxy 39.7 ng/mL (30.0-100.0)
[2018-11-11 03:19] LABS: Parathyroid Hormone Intact 110.3 pg/mL (14.0-72.0)
== END ==
LOC: LABWHC1 16:16
PROVIDERS: ATTEND Nurse Practitioner Family
DX: N18.3 Chronic kidney disease, stage 3 (moderate) (principal); N25.81 Secondary hyperparathyroidism of renal origin; E55.9 Vitamin D deficiency, unspecified; E83.39 Other disorders of phosphorus metabolism; E61.1 Iron deficiency; M10.9 Gout, unspecified; R80.9 Proteinuria, unspecified
CPT/HCPCS: 36415; 80048; 81001; 82040; 82306; 82728; 83540; 83550; 83735; 83970; 84100; 84550; 85025

== ENCOUNTER → 2018-11-27 | Outpatient (CLI) | payer MEDICARE ==
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
== END | disposition home or self-care (01) ==
LOC: RADCTMAIN 14:38
PROVIDERS: ATTEND Family Medicine
DX: R91.1 Solitary pulmonary nodule (principal); Z88.0 Allergy status to penicillin; Z88.1 Allergy status to other antibiotic agents; Z88.2 Allergy status to sulfonamides; Z88.5 Allergy status to narcotic agent
CPT/HCPCS: 70490

== ENCOUNTER → 2018-12-04 | Outpatient (CLI) | payer MEDICARE ==
--- NOTE | 2018-12-06 16:44 | CT ---
EXAMINATION TYPE: CT chest wo con DATE OF EXAM: 12/04/2018 COMPARISON: CT neck soft tissue dated 11/27/2018 HISTORY: abnormal lung findings on prior neck scan CT DLP: 232.4 mGycm. Automated Exposure Control for Dose Reduction was Utilized. TECHNIQUE: CT scan of the thorax is performed without IV contrast. FINDINGS: LUNGS: There is a 1.3 x 1.0 x 1.7 cm right upper lobe spiculated pulmonary nodule in the setting of m oderate underlying centrilobular emphysema with a satellite pulmonary nodule on image 12 measuring 4 mm abutting the pleural surface. This should be considered neoplasm until proven otherwise. Additiona l 3 mm solid pulmonary nodules in the right upper lobe are seen on image 14. Nodular densities within the right lung base are also seen on image 30 measuring 5 mm and 3 mm. Bibasilar bronchiectasis and multifocal pleural scarring are seen bilaterally. Subtle groundglass density in the superior segment of the left lower lobe on image 17 measures 4 mm, low suspicion for neoplasm at this time. Left upper lobe 4 mm pulmonary nodule is best seen on coronal series 6 image 43 but also seen on axial image 12 . 3 mm left upper lobe pulmonary nodule is present on image 23. MEDIASTINUM: Lack of IV contrast is noted to limit evaluation for mediastinal and especially hilar ad enopathy. There is a subcarinal lymph node measuring 1.1 cm in short axis. A pretracheal lymph node i s prominent measuring 9 mm in short axis. An aorticopulmonary window lymph node measures 8 mm in shor t axis. Severe coronary artery calcifications are seen. Heart is mildly enlarged. No pericardial effu tejal. Calcified left hilar granuloma is noted. OTHER: There is a 4 cm fluid attenuated partially visualized right renal lesion and 3 mm nonobstructi ng right renal calculus. Left-sided arterial calcifications are seen. There is partial visualization of a left renal cyst and an exophytic possible subtle left renal cyst. Benign splenic granulomas are seen. Gallbladder is surgically absent. Extensive atherosclerosis of the upper abdominal aorta and it s branches, and a small hiatal hernia are seen in the upper abdomen. There are 2 mid thoracic bernadine tejal deformities at approximately T9 and T10 are seen as well as compression deformity at L2. IMPRESSION: 1. Highly suspicious right upper lobe pulmonary nodule with satellite pulmonary nodule that should be considered neoplasm until proven otherwise. Contralateral subcentimeter pulmonary nodules and medias tinal lymph nodes that are upper limits of normal are also seen. 2. Moderate background pulmonary emphysema. 3. Multiple compression deformities of the visualized thoracolumbar spine. The lumbar compression def ormity was seen on the prior CT dated 10/21/2018. Mid thoracic compression deformities appear to be pr esent on the prior chest radiograph of 10/02/2018. Clinical correlation for point tenderness is recomm ended.
== END | disposition home or self-care (01) ==
LOC: RADCTMAIN 15:45
PROVIDERS: ATTEND Family Medicine
DX: J43.9 Emphysema, unspecified (principal); Z88.0 Allergy status to penicillin; Z88.1 Allergy status to other antibiotic agents; Z88.2 Allergy status to sulfonamides; Z88.5 Allergy status to narcotic agent
CPT/HCPCS: 71250

== ENCOUNTER 2018-12-18 02:59 | Emergency (ER) | payer MEDICARE ==
[2018-12-18] MEDS ORDERED: TOPICAL SKIN ADHESIVE 1 EACH AMP TOPICAL ONE (03:27)
[2018-12-18] MEDS ORDERED: DIPH,PERTUS(ACELL)TETVAC-LF 0.5 ML VIAL IM ONE (03:27)
--- NOTE | 2018-12-18 03:28 | ED ---
Fall HPI - General Chief Complaint: Fall Stated Complaint: Fall Time Seen by Provider: 12/18/18 03:19 Source: patient, EMS Mode of arrival: EMS - History of Present Illness Initial Comments: Sonal is an 88 yo female who presents to the edges department today for evaluation of an injury to her right forearm after a fall at home. Patient reports she was any day yesterday, she went to [facility] in the evening she came home and took her home medication she reports that she fell sleep sitting in her recliner. She states that she got up from her recliner around 2:30 in the morning and decided to go to her bed. She reports that when she attempted to push in the footrest of her recliner she lost her balance and fell. She noticed a skin tear to her right forearm, she became concerned that she is on Plavix is the route of so she called EMS for further evaluation. Patient did not strike her head when she fell she is not having any headache vision changes or focal neurologic deficits. She has no neck pain. She's been ambulatory since the fall. He denies any other injuries. - Related Data Home Medications Medication Instructions Recorded Confirmed HYDROcodone/APAP 5-325MG [[place] 1 tab PO HS PRN 02/02/14 10/20/18 5-325] Omeprazole [PriLOSEC] 20 mg PO AC-BRKFST 02/02/14 10/20/18 amLODIPine BESYLATE [Norvasc] 5 mg PO HS 02/02/14 10/20/18 Ipratropium-Albuterol Nebulize 3 ml INHALATION RT-TID PRN 08/20/16 10/20/18 [Duoneb 0.5 mg-3 mg/3 ml Soln] Montelukast [Singulair] 10 mg PO DAILY@1500 05/17/17 10/20/18 Fluticasone/Salmeterol [Advair 1 puff INHALATION RT-BID 05/18/17 10/20/18 250-50 Diskus] Metoprolol Tartrate [Lopressor] 100 mg PO BID 07/18/17 10/20/18 Sennosides [Senna] 8.6 mg PO HS 07/18/17 10/20/18 Rivaroxaban [Xarelto] 15 mg PO HS@199912/11/17 10/20/18 Acetaminophen [Tylenol] 1,000 mg PO Q4H PRN 05/14/18 10/20/18 Insulin Detemir [Levemir Flextouch] 8 unit SQ DAILY@1430 05/14/18 10/20/18 Multivitamin [Multivitamins Adult 1 tab PO DAILY 05/14/18 10/20/18 Gummies] metFORMIN HCL [Glucophage] 500 mg PO BID 06/09/18 10/20/18 Cholecalciferol (Vitamin D3) 2,000 unit PO DAILY 09/28/18 10/20/18 [Vitamin D3] Aspirin EC [Ecotrin Low Dose] 81 mg PO Q48H 10/12/18 10/20/18 Previous Rx's Medication Instructions Recorded Atorvastatin [Lipitor] 40 mg PO HS #30 tab 07/23/17 Nitroglycerin Sl Tabs [Nitrostat] 0.4 mg SUBLINGUAL Q5M PRN #25 tab 07/23/17 Isosorbide Mononitrate ER [Imdur] 30 mg PO DAILY #30 tab.er.24h 09/23/17 Furosemide [Lasix] 20 mg PO BID@0900,1600 tab 10/05/18 Oxazepam [Serax] 15 mg PO BID #60 capsule 10/05/18 Allergies Allergy/AdvReac Type Severity Reaction Status Date / Time amoxicillin trihydrate Allergy Unknown Verified 10/20/18 20:18 [From Augmentin] clindamycin HCl Allergy Unknown Verified 10/20/18 20:18 [From Cleocin] clindamycin palmitate HCl Allergy Unknown Verified 10/20/18 20:18 [From Cleocin] clindamycin phosphate Allergy Unknown Verified 10/20/18 20:18 [From Cleocin] codeine Allergy Unknown Verified 10/20/18 20:18 lorazepam [From Ativan] Allergy Confusion Verified 10/20/18 20:18 nitrofurantoin Allergy Unknown Verified 10/20/18 20:18 [From Macrobid] nitrofurantoin Allergy Unknown Verified 10/20/18 20:18 macrocrystalline [From Macrobid] Penicillins Allergy Unknown Verified 10/20/18 20:18 potassium clavulanate Allergy Unknown Verified 10/20/18 20:18 [From Augmentin] prednisone Allergy Unknown Verified 10/20/18 20:18 quinine Allergy Unknown Verified 10/20/18 20:18 Sulfa (Sulfonamide Allergy Unknown Verified 10/20/18 20:18 Antibiotics) sulfamethoxazole Allergy Unknown Verified 10/20/18 20:18 [From Bactrim] trimethoprim [From Bactrim] Allergy Unknown Verified 10/20/18 20:18 Review of Systems ROS Statement: Those systems with pertinent positive or pertinent negative responses have been documented in the HPI. ROS Other: All systems not noted in ROS Statement are negative. Past Medical History Past Medical History: Coronary Artery Disease (CAD), Chest Pain / Angina, Heart Failure, COPD, CVA/TIA, Diabetes Mellitus, GERD/Reflux, Hearing Disorder / Deafness, Hyperlipidemia, Hypertension, Myocardial Infarction ([place]), Osteoarthritis (OA), Pneumonia, Renal Disease, Skin Disorder Additional Past Medical History / Comment(s): IDDM type II, frequent pneumonia, aspiration pneumonia with sepsis, renal insufficiency, recurrent UTIs, TIA x 3, difficulty swallowing-crushes meds and puts them in yogurt-past EGD/dilations, anemia, eczema, "lazy bowel" but pt states anymore she goes from diarrhea to constipation easily, generalized arthritis, chronic baci pain, hiatal hernia Last Myocardial Infarction Date:: 1998, 09/21/17 History of Any Multi-Drug Resistant Organisms: VRE Date of last positivie culture/infection: 10/07/17 MDRO Source:: VRE URINE Past Surgical History: Cholecystectomy, Heart Catheterization With Stent Additional Past Surgical History / Comment(s): cataracts w/ lens implants, ectopic with one ovary/tube removed, heart caths :04/30/96 stent to rca, 03/18/2000 stent to mid rca, 07/22/17 stent to lad Past Anesthesia/Blood Transfusion Reactions: Previous Problems w/ Anesthesia Additional Past Anesthesia/Blood Transfusion Reaction / Comment(s): difficulty breathing after anesthesia Date of Last Stent Placement:: 06/2017 Past Psychological History: Depression Smoking Status: Former smoker Past Alcohol Use History: None Reported Past Drug Use History: None Reported - Past Family History Father History Unknown: Yes Family Medical History: Myocardial Infarction ([place]) Additional Family Medical History / Comment(s): Father had a [place] at the age of 50 yrs. He lived to be 75yrs old. Mother History Unknown: Yes Family Medical History: Myocardial Infarction ([place]) Additional Family Medical History / Comment(s): Mother of a FL at about age 80yrs. General Exam - General Exam Comments Initial Comments: Physical Exam GENERAL: Patient is well-developed and well-nourished. Patient is nontoxic and well-hydrated and is in no distress. HENT: Normocephalic, Atraumatic. EYES: PERRL, EOMI PULMONARY: Unlabored respirations CARDIOVASCULAR: There is a regular rate and rhythm without any murmurs gallops or rubs. ABDOMEN: Soft and nontender with normal bowel sounds. Well healed RUQ surgical inscision consistent with hx of open cholecystectomy SKIN: Approximatley 4cm skin tear to right forearm, linear, superficial : Deferred NEUROLOGIC: Patient is alert and oriented x3. Moving all extremities spontaneously MUSCULOSKELETAL: Normal extremities with adequate strength and full range of motion. No lower extremity swelling or edema. No calf tenderness. PSYCHIATRIC: Normal psychiatric evaluation. Limitations: no limitations Limitations: no limitations Course Vital Signs 12/18/18 03:01 Temperature 97.7 F Pulse Rate 82 Respiratory 18 Rate Blood Pressure 134/65 O2 Sat by Pulse 100 Oximetry Procedures - Laceration Laceration #1 Consent Obtained: verbal consent Indication: laceration Site: upper extremity Description: linear Depth: simple, single layer Pre-repair: wound explored, deep structures intact Type of Sutures: other Size of Sutures: other Technique: other (Glue) Patient Tolerated Procedure: well, no complications Medical Decision Making - Medical Decision Making The patient was seen and dilated Patient with a mechanical fall striking her right forearm with superficial skin tear, no bony tenderness Patient is otherwise very well-appearing with no obvious injuries Laceration was repaired with skin glue Patient remains asymptomatic resting comfortably states she would like to take a cab home now because she like to have breakfast. All questions pertaining care were answered return parameters were discussed patient was discharged home in stable condition Disposition Clinical Impression: Fall, Skin tear of right forearm without complication Disposition: HOME SELF-CARE Condition: Stable Instructions (If sedation given, give patient instructions): Skin Adhesive Care (ED) Is patient prescribed a controlled substance at d/c from ED?: No Referrals: Georgi Thayer MD [Primary Care Provider] - 1-2 days
[2018-12-18 04:47] VITALS: BP 132/70; PULSE 72; RESP 16; TEMP 97.9
== END 2018-12-18 04:47 | disposition home or self-care (01) ==
LOC: EC 02:59
DX: S51.811A Laceration without foreign body of right forearm, initial encounter (principal); I25.10 Atherosclerotic heart disease of native coronary artery without angina pectoris; I11.0 Hypertensive heart disease with heart failure; I50.9 Heart failure, unspecified; J44.9 Chronic obstructive pulmonary disease, unspecified; E11.9 Type 2 diabetes mellitus without complications; K21.9 Gastro-esophageal reflux disease without esophagitis; I25.2 Old myocardial infarction; Z95.5 Presence of coronary angioplasty implant and graft; Z95.818 Presence of other cardiac implants and grafts; Z87.891 Personal history of nicotine dependence; Z86.73 Personal history of transient ischemic attack (TIA), and cerebral infarction without residual deficits; Z23 Encounter for immunization; Z79.51 Long term (current) use of inhaled steroids; Z79.01 Long term (current) use of anticoagulants; Z79.4 Long term (current) use of insulin; Z79.82 Long term (current) use of aspirin; Z79.899 Other long term (current) drug therapy; Z88.0 Allergy status to penicillin; Z88.1 Allergy status to other antibiotic agents; Z88.5 Allergy status to narcotic agent; Z88.8 Allergy status to other drugs, medicaments and biological substances; Z88.2 Allergy status to sulfonamides; W19.XXXA Unspecified fall, initial encounter; Y92.009 Unspecified place in unspecified non-institutional (private) residence as the place of occurrence of the external cause
CPT/HCPCS: 12002; 90471; 90715; 99283

== ENCOUNTER → 2018-12-19 | Outpatient (CLI) | payer MEDICARE ==
--- NOTE | 2018-12-21 06:40 | PE ---
EXAMINATION TYPE: PET CT fusion skull to thigh DATE OF EXAM: 12/19/2018 COMPARISON: Chest CT February 03, 2019. CT abdomen and pelvis October 21, 2018. HISTORY: Solitary pulmonary nodule, abnormal CT TECHNIQUE: Following the intravenous administration of 11.68 mCi of F-18 FDG, whole body images are performed from the skull base to the midthigh. Images are reviewed on the computer in the coronal, a xial, and sagittal planes. Reconstructed rotating images are created on independent workstation and reviewed on the computer. A noncontrast CT is performed in conjunction with the PET scan. SCAN: Initial Scan FINDINGS: SKULL BASE AND NECK: There is mild symmetric uptake at level of the adenoid tonsils, correlate for t onsillitis. There is mild diffuse uptake in right SCM, correlate for inflammatory process. No suspici ous hypermetabolic uptake is present. CHEST, MEDIASTINUM, AND HILAR REGION: Background mild to moderate underlying emphysematous changes re demonstrated. There is persistent scarlike opacity or nodule right upper lobe axial image 61 measurin g 1.2 x 1.2 cm without hypermetabolic uptake. Remainder of the thorax shows no suspicious hypermetabo lic uptake. ABDOMEN AND PELVIS: Prominent bowel uptake is seen particularly right-sided bowel loops correlate cli nically to exclude enterocolitis. Distended bladder is present. No suspicious hypermetabolic uptake i s seen. OSSEOUS STRUCTURES: No suspicious hypermetabolic uptake. OTHER CT: Severe calcified plaque bilateral carotid bulbs is seen. There is cardiomegaly with severe three-vessel coronary artery calcification and/or stents. Correlate clinically. There is bibasilar linear scarring and/or atelectasis. Prominent calcified left hilar lymph nodes are seen. There is redemonstration of 1 cm calcified left subpleural nodule or granuloma axial image 104 . Cholecystectomy clips are redemonstrated. There is partially exophytic 4.0 cm cyst anteriorly upper p ole level right kidney. There are several smaller simple appearing cysts scattered throughout the lef t kidney. Cortical thinning is present bilaterally. There are diverticula in the left and sigmoid colon. There is moderate sized fat-containing umbilical hernia. There is moderate to severe calcified plaque of aorta extending into branch vessels. S-shaped scoliosis is seen. There is exaggerated kyphosis with several compression type fractures pre sumed old as there is no hypermetabolic uptake, severe compression is noted at T9 and T10 level and m ild to moderate compression is noted at L2 level. IMPRESSION: No suspicious hypermetabolic uptake in spiculated 1.2 cm right upper lobe nodule favor po stinflammatory. Consider follow-up CT in 3-6 months time to ensure stability. No suspicious hypermeta bolic uptake to suggest malignancy identified.
== END | disposition home or self-care (01) ==
LOC: RADPETMAIN 12:34
PROVIDERS: ATTEND Internal Medicine
DX: R91.8 Other nonspecific abnormal finding of lung field (principal)
CPT/HCPCS: 78815; A9552

== ENCOUNTER 2019-01-08 11:21 | Inpatient (IN) | payer MEDICARE ==
[2019-01-08] MEDS ORDERED: SODIUM CHLORIDE 0.9% 500 ML 500 ML IV STA (11:55)
--- NOTE | 2019-01-08 12:06 | ED ---
General Adult HPI - General Chief complaint: Recheck/Abnormal Lab/Rx Stated complaint: abn labs Time Seen by Provider: 01/08/19 11:30 Source: patient, RN notes reviewed Mode of arrival: ambulatory Limitations: no limitations - History of Present Illness Initial comments: This is an 88-year-old female presents emergency department stating that lately she has been more tired and more short of breath. She went to see her doctor because of this. Dr. Hernandze her hemoglobin is low to come to the emergency department. Patient states she has some kidney dysfunction. And her hemoglobin normally runs in the 80s but she's never had a get any blood but she does take iron. Patient states she has started to note some bright red blood in her stool as of yesterday. Patient denies any abdominal pain patient denies any chest pain patient denies any shortness of breath while lying in bed. Patient denies any recent fever chills or cough. Patient denies any swelling to the legs. - Related Data Home Medications Medication Instructions Recorded Confirmed HYDROcodone/APAP 5-325MG [[place] 1 tab PO HS PRN 02/02/14 01/08/19 5-325] Omeprazole [PriLOSEC] 20 mg PO AC-BRKFST 02/02/14 01/08/19 amLODIPine BESYLATE [Norvasc] 5 mg PO HS 02/02/14 01/08/19 Ipratropium-Albuterol Nebulize 3 ml INHALATION RT-TID PRN 08/20/16 01/08/19 [Duoneb 0.5 mg-3 mg/3 ml Soln] Montelukast [Singulair] 10 mg PO DAILY@1500 05/17/17 01/08/19 Fluticasone/Salmeterol [Advair 1 puff INHALATION RT-BID 05/18/17 01/08/19 250-50 Diskus] Metoprolol Tartrate [Lopressor] 100 mg PO BID 07/18/17 01/08/19 Sennosides [Senna] 8.6 mg PO HS 07/18/17 01/08/19 Rivaroxaban [Xarelto] 15 mg PO HS@199912/11/17 01/08/19 Acetaminophen [Tylenol] 1,000 mg PO Q4H PRN 05/14/18 01/08/19 Insulin Detemir [Levemir Flextouch] 8 unit SQ DAILY@1430 05/14/18 01/08/19 Multivitamin [Multivitamins Adult 1 tab PO DAILY 05/14/18 01/08/19 Gummies] metFORMIN HCL [Glucophage] 500 mg PO BID 06/09/18 01/08/19 Cholecalciferol (Vitamin D3) 2,000 unit PO DAILY 09/28/18 01/08/19 [Vitamin D3] Aspirin EC [Ecotrin Low Dose] 81 mg PO Q48H 10/12/18 01/08/19 Furosemide [Lasix] 20 mg PO DAILY@0900 01/08/19 01/08/19 Furosemide [Lasix] 20 mg PO DAILY@1400 PRN 01/08/19 01/08/19 Previous Rx's Medication Instructions Recorded Atorvastatin [Lipitor] 40 mg PO HS #30 tab 07/23/17 Nitroglycerin Sl Tabs [Nitrostat] 0.4 mg SUBLINGUAL Q5M PRN #25 tab 07/23/17 Isosorbide Mononitrate ER [Imdur] 30 mg PO DAILY #30 tab.er.24h 09/23/17 Oxazepam [Serax] 15 mg PO BID #60 capsule 10/05/18 Allergies Allergy/AdvReac Type Severity Reaction Status Date / Time amoxicillin trihydrate Allergy Unknown Verified 01/08/19 12:12 [From Augmentin] clindamycin HCl Allergy Unknown Verified 01/08/19 12:12 [From Cleocin] clindamycin palmitate HCl Allergy Unknown Verified 01/08/19 12:12 [From Cleocin] clindamycin phosphate Allergy Unknown Verified 01/08/19 12:12 [From Cleocin] codeine Allergy Unknown Verified 01/08/19 12:12 lorazepam [From Ativan] Allergy Confusion Verified 01/08/19 12:12 nitrofurantoin Allergy Unknown Verified 01/08/19 12:12 [From Macrobid] nitrofurantoin Allergy Unknown Verified 01/08/19 12:12 macrocrystalline [From Macrobid] Penicillins Allergy Unknown Verified 01/08/19 12:12 potassium clavulanate Allergy Unknown Verified 01/08/19 12:12 [From Augmentin] prednisone Allergy Unknown Verified 01/08/19 12:12 quinine Allergy Unknown Verified 01/08/19 12:12 Sulfa (Sulfonamide Allergy Unknown Verified 01/08/19 12:12 Antibiotics) sulfamethoxazole Allergy Unknown Verified 01/08/19 12:12 [From Bactrim] trimethoprim [From Bactrim] Allergy Unknown Verified 01/08/19 12:12 Review of Systems ROS Statement: Those systems with pertinent positive or pertinent negative responses have been documented in the HPI. ROS Other: All systems not noted in ROS Statement are negative. Past Medical History Past Medical History: Coronary Artery Disease (CAD), Chest Pain / Angina, Heart Failure, COPD, CVA/TIA, Diabetes Mellitus, GERD/Reflux, Hearing Disorder / Marisabel fness, Hyperlipidemia, Hypertension, Myocardial Infarction ([place]), Osteoarthritis ([place]), Pneumonia, Renal Disease, Skin Disorder Additional Past Medical History / Comment(s): IDDM type II, frequent pneumonia, aspiration pneumonia with sepsis, renal insufficiency, recurrent UTIs, TIA x 3, difficulty swallowing-crushes meds and puts them in yogurt-past EGD/dilations, anemia, eczema, "lazy bowel" but pt states anymore she goes from diarrhea to constipation easily, generalized arthritis, chronic baci pain, hiatal hernia Last Myocardial Infarction Date:: 1998, 09/21/17 History of Any Multi-Drug Resistant Organisms: VRE Date of last positivie culture/infection: 10/07/17 MDRO Source:: VRE URINE Past Surgical History: Cholecystectomy, Heart Catheterization With Stent Additional Past Surgical History / Comment(s): cataracts w/ lens implants, ectopic with one ovary/tube removed, heart caths :04/30/96 stent to rca, 03/18/2000 stent to mid rca, 07/22/17 stent to lad Past Anesthesia/Blood Transfusion Reactions: Previous Problems w/ Anesthesia Additional Past Anesthesia/Blood Transfusion Reaction / Comment(s): difficulty breathing after anesthesia Date of Last Stent Placement:: 06/2017 Past Psychological History: Depression Smoking Status: Former smoker Past Alcohol Use History: None Reported Past Drug Use History: None Reported - Past Family History Father History Unknown: Yes Family Medical History: Myocardial Infarction ([place]) Additional Family Medical History / Comment(s): Father had a [place] at the age of 50 yrs. He lived to be 75yrs old. Mother History Unknown: Yes Family Medical History: Myocardial Infarction ([place]) Additional Family Medical History / Comment(s): Mother of a ND at about age 80yrs. General Exam - General Exam Comments Initial Comments: GENERAL: Patient is well-developed and well-nourished. Patient is nontoxic and well- hydrated and is in no acute distress. ENT: Neck is soft and supple. No significant lymphadenopathy is noted. Oropharynx is clear. Moist mucous membranes. Neck has full range of motion without eliciting any pain. EYES: Patient's conjunctiva are very pale. Extraocular movements were intact and pupils were equal round and reactive to light. Eyelids were unremarkable. PULMONARY: Unlabored respirations. Good breath sounds bilaterally. No audible rales rhonchi or wheezing was noted. CARDIOVASCULAR: There is a regular rate and rhythm without any murmurs gallops or rubs. Femoral pulses are equal bilaterally ABDOMEN: Soft and nontender with normal bowel sounds. No palpable organomegaly was noted. There is no palpable pulsatile mass. SKIN: Patient's skin is very pale. NEUROLOGIC: Patient is alert and oriented x3. Cranial nerves II through XII are grossly intact. Motor and sensory are also intact. Normal speech, volume and content. Symmetrical smile. MUSCULOSKELETAL: Normal extremities with adequate strength and full range of motion. No lower extremity swelling or edema. No calf tenderness. LYMPHATICS: No significant lymphadenopathy is noted PSYCHIATRIC: Normal psychiatric evaluation. Limitations: no limitations Course Vital Signs 01/08/19 11:29 Temperature 98.2 F Pulse Rate 61 Respiratory 20 Rate Blood Pressure 101/53 O2 Sat by Pulse 99 Oximetry Medical Decision Making - Medical Decision Making EKG shows a sinus rhythm with occasional PAC at 66 bpm MN interval 266 QRS is 138 QT C is 416 QTC is 448. Patient's EKG shows left bundle branch block. Patient's shingles 5.8. I gave the patient 1 unit of packed red blood cell. I admitted the patient I consult GI I repeated the CBC. I wrote admitting orders - Lab Data Result diagrams: 01/08/19 12:05 01/08/19 12:05 Lab Results 01/08/19 01/08/19 01/08/19 Range/Units 12:05 12:05 12:05 WBC 8.0 (3.8-10.6) k/uL RBC 2.35 L (3.80-5.40) m/uL Hgb 5.8 L* D (11.4-16.0) gm/dL Hct 18.9 L* (34.0-46.0) % MCV 80.3 D (80.0-100.0) fL MCH 24.9 L (25.0-35.0) pg MCHC 30.9 L (31.0-37.0) g/dL RDW 14.3 (11.5-15.5) % Plt Count 522 H (150-450) k/uL Neutrophils % 52 % Lymphocytes % 29 % Monocytes % 6 % Eosinophils % 9 % Basophils % 1 % Neutrophils # 4.2 (1.3-7.7) k/uL Lymphocytes # 2.3 (1.0-4.8) k/uL Monocytes # 0.5 (0-1.0) k/uL Eosinophils # 0.7 (0-0.7) k/uL Basophils # 0.0 (0-0.2) k/uL Hypochromasia Marked Poikilocytosis Slight PT 11.7 (9.0-12.0) sec INR 1.1 (<1.2) APTT 26.2 (22.0-30.0) sec Sodium 138 (137-145) mmol/L Potassium 4.5 (3.5-5.1) mmol/L Chloride 105 (98-107) mmol/L Carbon Dioxide 26 (22-30) mmol/L Anion Gap 7 mmol/L BUN 29 H (7-17) mg/dL Creatinine 1.87 H (0.52-1.04) mg/dL Est GFR (CKD-EPI)AfAm 28 (>60 ml/min/1.73 sqM) Est GFR (CKD-EPI)NonAf 24 (>60 ml/min/1.73 sqM) Glucose 81 (74-99) mg/dL Calcium 9.0 (8.4-10.2) mg/dL Magnesium 1.7 (1.6-2.3) mg/dL Total Bilirubin 0.3 (0.2-1.3) mg/dL AST 31 (14-36) U/L ALT 21 (9-52) U/L Alkaline Phosphatase 65 (38-126) U/L Troponin I (0.000-0.034) ng/mL Total Protein 6.5 (6.3-8.2) g/dL Albumin 3.4 L (3.5-5.0) g/dL Blood Type Blood Type Recheck Antibody Screen Spec Expiration Date 01/08/19 01/08/19 Range/Units 12:05 12:05 WBC (3.8-10.6) k/uL RBC (3.80-5.40) m/uL Hgb (11.4-16.0) gm/dL Hct (34.0-46.0) % MCV (80.0-100.0) fL MCH (25.0-35.0) pg MCHC (31.0-37.0) g/dL RDW (11.5-15.5) % Plt Count (150-450) k/uL Neutrophils % % Lymphocytes % % Monocytes % % Eosinophils % % Basophils % % Neutrophils # (1.3-7.7) k/uL Lymphocytes # (1.0-4.8) k/uL Monocytes # (0-1.0) k/uL Eosinophils # (0-0.7) k/uL Basophils # (0-0.2) k/uL Hypochromasia Poikilocytosis PT (9.0-12.0) sec INR (<1.2) APTT (22.0-30.0) sec Sodium (137-145) mmol/L Potassium (3.5-5.1) mmol/L Chloride (98-107) mmol/L Carbon Dioxide (22-30) mmol/L Anion Gap mmol/L BUN (7-17) mg/dL Creatinine (0.52-1.04) mg/dL Est GFR (CKD-EPI)AfAm (>60 ml/min/1.73 sqM) Est GFR (CKD-EPI)NonAf (>60 ml/min/1.73 sqM) Glucose (74-99) mg/dL Calcium (8.4-10.2) mg/dL Magnesium (1.6-2.3) mg/dL Total Bilirubin (0.2-1.3) mg/dL AST (14-36) U/L ALT (9-52) U/L Alkaline Phosphatase (38-126) U/L Troponin I 0.022 (0.000-0.034) ng/mL Total Protein (6.3-8.2) g/dL Albumin (3.5-5.0) g/dL Blood Type O Positive Blood Type Recheck CABO Indicated Antibody Screen NEGATIVE Spec Expiration Date 01/11/2019 - 4576 Critical Care Time Critical Care Time: Yes Total Critical Care Time: 35 Disposition Clinical Impression: Anemia, GI bleed Disposition: ADMITTED IP TO THIS HOSP Referrals: Georgi Thayer MD [Primary Care Provider] - 1-2 days Time of Disposition: 13:03
[2019-01-08 12:19] LABS: Basophils % (A) 1 %; Eosinophils # (A) 0.7 k/uL (0-0.7); Eosinophils % (A) 9 %; Hypochromasia Marked; Lymphocytes # (A) 2.3 k/uL (1.0-4.8); Lymphocytes % (A) 29 %; MCH 24.9 pg (25.0-35.0); MCHC 30.9 g/dL (31.0-37.0); Mean Platelet Volume 7.4; Monocytes # (A) 0.5 k/uL (0-1.0); Monocytes % (A) 6 %; Neutrophils # (A) 4.2 k/uL (1.3-7.7); Neutrophils % (A) 52 %; Platelet Count 522 k/uL (150-450); Poikilocytosis Slight; RBC 2.35 m/uL (3.80-5.40); RDW 14.3 % (11.5-15.5)
[2019-01-08 12:21] LABS: MCV 80.3 fL (80.0-100.0)
[2019-01-08 12:22] LABS: HGB 5.8 gm/dL (11.4-16.0)
[2019-01-08 12:23] LABS: HCT 18.9 % (34.0-46.0)
[2019-01-08 12:24] LABS: INR 1.1 (<1.2); Partial Thromboplastin Time 26.2 sec (22.0-30.0); Prothrombin Time 11.7 sec (9.0-12.0)
[2019-01-08 12:33] LABS: Albumin 3.4 g/dL (3.5-5.0); Magnesium 1.7 mg/dL (1.6-2.3); Potassium 4.5 mmol/L (3.5-5.1); Total Bilirubin 0.3 mg/dL (0.2-1.3); Total Protein 6.5 g/dL (6.3-8.2)
[2019-01-08] MEDS ORDERED: SODIUM CHLORIDE 0.9% 1,000 ML IV ONE (13:04)
[2019-01-08] MEDS ORDERED: MORPHINE SULFATE 2 MG/ML SYRINGE IVP STA (14:36)
[2019-01-08] MEDS ORDERED: ACETAMINOPHEN TAB 500 MG TAB PO PRN (18:55)
[2019-01-08] MEDS ORDERED: NITROGLYCERIN SL TABS 0.4 MG TAB SUBLINGUAL PRN (18:55)
[2019-01-08] MEDS: PANTOPRAZOLE 40 MG/10 ML VIAL IVP SCH (19:49)
[2019-01-08] MEDS: ATORVASTATIN 40 MG TAB PO SCH (19:50)
[2019-01-08] MEDS: METOPROLOL TARTRATE 50 MG TAB PO SCH (19:50)
[2019-01-08] MEDS: SENNOSIDES 8.6 MG TAB PO SCH (19:50)
[2019-01-08] MEDS: amLODIPine 5 MG TAB PO SCH (19:50)
[2019-01-08 20:49] LABS: Glucose,Whole Blood 111 mg/dL (75-99)
[2019-01-08] MEDS: SYMBICORT 80-4.5 MCG INHALER INHALATION SCH (20:50)
[2019-01-08] MEDS: INSULIN ASPART (NovoLOG) 100 UNIT/ML VIAL SQ SCH (20:59)
[2019-01-08 21:18] LABS: Basophils % (A) 0 %; Eosinophils # (A) 0.6 k/uL (0-0.7); Eosinophils % (A) 7 %; HCT 23.9 % (34.0-46.0); Hypochromasia Marked; Lymphocytes # (A) 2.4 k/uL (1.0-4.8); Lymphocytes % (A) 32 %; MCH 25.4 pg (25.0-35.0); MCHC 30.4 g/dL (31.0-37.0); MCV 83.4 fL (80.0-100.0); Mean Platelet Volume 6.6; Monocytes # (A) 0.4 k/uL (0-1.0); Monocytes % (A) 6 %; Neutrophils # (A) 4.1 k/uL (1.3-7.7); Neutrophils % (A) 52 %; Platelet Count 447 k/uL (150-450); Poikilocytosis Slight; RBC 2.87 m/uL (3.80-5.40); RDW 15.3 % (11.5-15.5); WBC 7.8 k/uL (3.8-10.6)
[2019-01-08 21:19] LABS: HGB 7.3 gm/dL (11.4-16.0)
[2019-01-08] MEDS: HYDROcodone/APAP 5-325MG 1 EACH TAB PO PRN (23:03)
[2019-01-09 05:57] LABS: Glucose,Whole Blood 76 mg/dL (75-99)
[2019-01-09] MEDS: INSULIN ASPART (NovoLOG) 100 UNIT/ML VIAL SQ SCH ×4 (06:02→21:29)
[2019-01-09] MEDS ORDERED: NON-FORMULARY DRUG (Omeprazole [Prilosec] 20 MG) PO SCH (07:30)
[2019-01-09] MEDS ORDERED: metFORMIN 500 MG TAB PO SCH (07:30)
[2019-01-09] MEDS: SYMBICORT 80-4.5 MCG INHALER INHALATION SCH ×2 (08:12→20:24)
[2019-01-09] MEDS: IPRATROPIUM-ALBUTEROL 3 ML NEB INHALATION PRN ×2 (08:12→20:24)
[2019-01-09] MEDS: CHOLECALCIFEROL 1,000 UNIT TAB PO SCH (08:13)
[2019-01-09] MEDS: FUROSEMIDE 20 MG TAB PO SCH (11:44)
[2019-01-09] MEDS: ISOSORBIDE MONONITRATE ER 30 MG TAB.ER.24H PO SCH (11:44)
[2019-01-09] MEDS: METOPROLOL TARTRATE 50 MG TAB PO SCH ×2 (11:45→19:47)
[2019-01-09 12:03] LABS: Glucose,Whole Blood 82 mg/dL (75-99)
[2019-01-09] MEDS: MULTIVITAMINS, THERA 1 EACH TAB PO SCH (13:16)
[2019-01-09] MEDS ORDERED: FUROSEMIDE 20 MG TAB PO PRN (14:00)
[2019-01-09] MEDS ORDERED: INSULIN DETEMIR (LEVEMIR) 100 UNIT/ML SYR SQ SCH (14:30)
[2019-01-09 15:57] LABS: Basophils % (A) 1 %; Eosinophils # (A) 0.6 k/uL (0-0.7); Eosinophils % (A) 8 %; HCT 24.3 % (34.0-46.0); HGB 7.4 gm/dL (11.4-16.0); Hypochromasia Marked; Lymphocytes # (A) 1.6 k/uL (1.0-4.8); Lymphocytes % (A) 24 %; MCH 25.5 pg (25.0-35.0); MCHC 30.6 g/dL (31.0-37.0); MCV 83.3 fL (80.0-100.0); Mean Platelet Volume 7.2; Monocytes # (A) 0.4 k/uL (0-1.0); Monocytes % (A) 7 %; Neutrophils # (A) 3.8 k/uL (1.3-7.7); Neutrophils % (A) 57 %; Platelet Count 432 k/uL (150-450); Poikilocytosis Moderate; RBC 2.92 m/uL (3.80-5.40); RDW 15.4 % (11.5-15.5); WBC 6.6 k/uL (3.8-10.6)
[2019-01-09 16:08] LABS: Calcium 9.1 mg/dL (8.4-10.2); Potassium 4.6 mmol/L (3.5-5.1)
[2019-01-09 16:46] LABS: Glucose,Whole Blood 90 mg/dL (75-99)
[2019-01-09] MEDS: MONTELUKAST 10 MG TAB PO SCH (16:47)
[2019-01-09] MEDS: PANTOPRAZOLE 40 MG/10 ML VIAL IVP SCH (16:48)
[2019-01-09] MEDS: ATORVASTATIN 40 MG TAB PO SCH (19:47)
[2019-01-09] MEDS: SENNOSIDES 8.6 MG TAB PO SCH (19:47)
[2019-01-09] MEDS: amLODIPine 5 MG TAB PO SCH (19:47)
[2019-01-09] MEDS ORDERED: DOXYCYCLINE 100 MG CAP PO SCH (21:00)
[2019-01-09 21:39] LABS: Glucose,Whole Blood 107 mg/dL (75-99)
[2019-01-09] MEDS: HYDROcodone/APAP 5-325MG 1 EACH TAB PO PRN (22:20)
[2019-01-09] MEDS: OXAZEPAM 15 MG PO SCH (22:20)
[2019-01-10 05:48] LABS: Glucose,Whole Blood 86 mg/dL (75-99)
[2019-01-10] MEDS: INSULIN ASPART (NovoLOG) 100 UNIT/ML VIAL SQ SCH ×4 (05:53→20:22)
[2019-01-10] MEDS: SYMBICORT 80-4.5 MCG INHALER INHALATION SCH ×2 (07:37→20:02)
--- NOTE | 2019-01-10 07:48 | P.CONS ---
History of Present Illness - Reason for Consult Consult date: 01/09/19 GI bleeding - History of Present Illness This is an 88-year-old female who presented to the emergency department stating that lately she has been more tired and more short of breath. She went to see her doctor because of this. Was found to have low Hb and was advised to go to the emergency department. Patient states she has some kidney dysfunction. And her hemoglobin normally runs in the 8.0s but she's never had a get any blood but she does take iron. Patient states she has started to note some bright red blood in her stool as of yesterday. Patient denies any abdominal pain patient denies any chest pain patient denies any shortness of breath while lying in bed. Patient denies any recent fever chills or cough. Patient denies any swelling to the legs. Has history of lung disease and congestive heart failure and told me that her doctors would not clear her for any endoscopic procedures. She doesn't believe she had prior upper endoscopy or colonoscopy. Review of Systems Constitutional: Denies fever, chills and unintentional weight loss Neurologic: Denies headache, blurred vision or sensory or motor changes Cardiopulmonary: No chest pains, shortness of breath or palpitations Gastrointestinal: See present illness above Endocrine: No history of diabetes or thyroid disease Hematologic: No anemia or bleeding tendency Musculoskeletal: No joint swelling or pains Skin: No rashes Psychiatric: No anxiety or depression Past Medical History Past Medical History: Coronary Artery Disease (CAD), Chest Pain / Angina, Heart Failure, COPD, CVA/TIA, Diabetes Mellitus, GERD/Reflux, Hearing Disorder / Deafness, Hyperlipidemia, Hypertension, Myocardial Infarction (ND), Osteoarthritis (OA), Pneumonia, Renal Disease, Skin Disorder Additional Past Medical History / Comment(s): IDDM type II, frequent pneumonia, aspiration pneumonia with sepsis, renal insufficiency, recurrent UTIs, TIA x 3, difficulty swallowing-crushes meds and puts them in yogurt-past EGD/dilations, anemia, eczema, "lazy bowel" but pt states anymore she goes from diarrhea to constipation easily, generalized arthritis, chronic baci pain, hiatal hernia Last Myocardial Infarction Date:: 09/21/17 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 MDRO Source:: VRE URINE Past Surgical History: Cholecystectomy, Heart Catheterization With Stent Additional Past Surgical History / Comment(s): cataracts w/lens implants, ectopic with one ovary/tube removed, heart caths :04/30/96 stent to rca, 03/18/2000 stent to mid rca, 07/22/17 stent to lad Past Anesthesia/Blood Transfusion Reactions: Previous Problems w/ Anesthesia Additional Past Anesthesia/Blood Transfusion Reaction / Comm: difficulty breathing after anesthesia Date of Last Stent Placement:: 06/2017 Past Psychological History: Depression Additional Psychological History / Comment(s): Pt resides in an apartment at [facility]. She ambulates with a walker. Her daughter is very helpful and is in an apt above her. Pt has chore person from [employer] on aging. She no longer drives, family takes her to [employer]. She goes up to her emile's for supper and manages her own medication. Smoking Status: Former smoker Past Alcohol Use History: None Reported Additional Past Alcohol Use History / Comment(s): Patient has history of smoking 3 packs per day started smoking at age 16 and quit in 1997 Past Drug Use History: None Reported - Past Family History Father History Unknown: Yes Family Medical History: Myocardial Infarction (ND) Additional Family Medical History / Comment(s): Father had a ND at the age of 50 yrs. He lived to be 75yrs old. Mother History Unknown: Yes Family Medical History: Myocardial Infarction (ND) Additional Family Medical History / Comment(s): Mother of a ND at about age 80yrs. Medications and Allergies Home Medications Medication Instructions Recorded Confirmed Type HYDROcodone/APAP 5-325MG [[place] 1 tab PO HS PRN 02/02/14 01/08/19 History 5-325] Omeprazole [PriLOSEC] 20 mg PO AC-BRKFST 02/02/14 01/08/19 History amLODIPine BESYLATE [Norvasc] 5 mg PO HS 02/02/14 01/08/19 History Ipratropium-Albuterol Nebulize 3 ml INHALATION RT-TID PRN 08/20/16 01/08/19 History [Duoneb 0.5 mg-3 mg/3 ml Soln] Montelukast [Singulair] 10 mg PO DAILY@1500 05/17/17 01/08/19 History Fluticasone/Salmeterol [Advair 1 puff INHALATION RT-BID 05/18/17 01/08/19 History 250-50 Diskus] Metoprolol Tartrate [Lopressor] 100 mg PO BID 07/18/17 01/08/19 History Sennosides [Senna] 8.6 mg PO HS 07/18/17 01/08/19 History Atorvastatin [Lipitor] 40 mg PO HS #30 tab 07/23/17 01/08/19 Rx Nitroglycerin Sl Tabs [Nitrostat] 0.4 mg SUBLINGUAL Q5M PRN #25 tab 07/23/17 01/08/19 Rx Isosorbide Mononitrate ER [Imdur] 30 mg PO DAILY #30 tab.er.24h 09/23/17 01/08/19 Rx Rivaroxaban [Xarelto] 15 mg PO HS@199912/11/17 01/08/19 History Acetaminophen [Tylenol] 1,000 mg PO Q4H PRN 05/14/18 01/08/19 History Insulin Detemir [Levemir Flextouch] 8 unit SQ DAILY@1430 05/14/18 01/08/19 History Multivitamin [Multivitamins Adult 1 tab PO DAILY 05/14/18 01/08/19 History Gummies] metFORMIN HCL [Glucophage] 500 mg PO BID 06/09/18 01/08/19 History Cholecalciferol (Vitamin D3) 2,000 unit PO DAILY 09/28/18 01/08/19 History [Vitamin D3] Oxazepam [Serax] 15 mg PO BID #60 capsule 10/05/18 01/08/19 Rx Aspirin EC [Ecotrin Low Dose] 81 mg PO Q48H 10/12/18 01/08/19 History Furosemide [Lasix] 20 mg PO DAILY@0900 01/08/19 01/08/19 History Furosemide [Lasix] 20 mg PO DAILY@1400 PRN 01/08/19 01/08/19 History Allergies Allergy/AdvReac Type Severity Reaction Status Date / Time amoxicillin trihydrate Allergy Unknown Verified 01/08/19 12:12 [From Augmentin] clindamycin HCl Allergy Unknown Verified 01/08/19 12:12 [From Cleocin] clindamycin palmitate HCl Allergy Unknown Verified 01/08/19 12:12 [From Cleocin] clindamycin phosphate Allergy Unknown Verified 01/08/19 12:12 [From Cleocin] codeine Allergy Unknown Verified 01/08/19 12:12 lorazepam [From Ativan] Allergy Confusion Verified 01/08/19 12:12 nitrofurantoin Allergy Unknown Verified 01/08/19 12:12 [From Macrobid] nitrofurantoin Allergy Unknown Verified 01/08/19 12:12 macrocrystalline [From Macrobid] Penicillins Allergy Unknown Verified 01/08/19 12:12 potassium clavulanate Allergy Unknown Verified 01/08/19 12:12 [From Augmentin] prednisone Allergy Unknown Verified 01/08/19 12:12 quinine Allergy Unknown Verified 01/08/19 12:12 Sulfa (Sulfonamide Allergy Unknown Verified 01/08/19 12:12 Antibiotics) sulfamethoxazole Allergy Unknown Verified 01/08/19 12:12 [From Bactrim] trimethoprim [From Bactrim] Allergy Unknown Verified 01/08/19 12:12 Physical Exam Vitals: Vital Signs Temp Pulse Pulse Resp BP BP Pulse Ox 01/09/19 16:00 98.2 F 71 14 136/64 95 01/09/19 12:00 97.9 F 72 16 118/70 95 01/09/19 08:24 72 01/09/19 08:12 72 01/09/19 08:00 97.4 F L 71 14 145/76 95 01/09/19 04:00 98.0 F 73 16 105/48 94 L 01/09/19 00:00 97.9 F 79 16 116/72 94 L 01/08/19 20:00 97.6 F 79 18 141/57 99 01/08/19 19:38 97.6 F 79 18 141/57 99 Intake and Output 01/09/19 01/09/19 01/09/19 06:59 14:59 22:59 Intake Total 910 240 120 Output Total 100 400 Balance 810 -160 120 Intake: Intake, IV Titration 600 Amount Sodium Chloride 0.9% 1, 600 000 ml @ 75 mls/hr IV . [id number] ONE Rx#:[id number] Oral 240 120 Blood Product 310 Output: Urine 100 400 Other: Voiding Method Bedside Commode Bedside Commode Bedside Commode # Voids 1 Weight 51.8 kg 51.8 kg General: Appears stated age, very pleasant in no acute distress Head and neck: Normocephalic and atraumatic, conjunctivae pink and sclerae not icteric, mucous membranes moist and pink. No masses in the neck or tracheal shifts Lungs: Clear to auscultation with no dullness to percussion Heart: Regular, no abnormal sounds, murmurs, gallops or friction rubs Abdomen: Soft, no masses, organomegalies or tenderness. Bowel sounds present Extremities: No clubbing, cyanosis or edema Neurologic: Alert and oriented 3, cranial nerves grossly intact, no gross sensory or motor abnormalities Results CBC & Chem 7: 01/09/19 15:05 01/09/19 15:05 Labs: Abnormal Lab Results - Last 24 Hours (Table) 01/08/19 01/08/19 01/08/19 Range/Units 12:05 20:48 21:03 RBC 2.87 L (3.80-5.40) m/uL Hgb 7.3 L D (11.4-16.0) gm/dL Hct 23.9 L (34.0-46.0) % MCHC 30.4 L (31.0-37.0) g/dL Chloride (98-107) mmol/L BUN (7-17) mg/dL Creatinine (0.52-1.04) mg/dL POC Glucose (mg/dL) 111 H (75-99) mg/dL Crossmatch See Detail 01/09/19 01/09/19 Range/Units 15:05 15:05 RBC 2.92 L (3.80-5.40) m/uL Hgb 7.4 L (11.4-16.0) gm/dL Hct 24.3 L (34.0-46.0) % MCHC 30.6 L (31.0-37.0) g/dL Chloride 108 H (98-107) mmol/L BUN 25 H (7-17) mg/dL Creatinine 1.52 H (0.52-1.04) mg/dL POC Glucose (mg/dL) (75-99) mg/dL Crossmatch Assessment and Plan Assessment: History of iron deficiency anemia and gastroesophageal reflux with recent drop in hemoglobin and evidence of rectal bleeding. An upper and lower GI source to be considered. The possibility of hemorrhoids or perianal pathology to be kept in mind. Plan: Agree with your current management. We will monitor her course closely and consider endoscopic workup if medically cleared and if she is agreeable. We will follow with you with interest.
[2019-01-10] MEDS: CHOLECALCIFEROL 1,000 UNIT TAB PO SCH (09:47)
[2019-01-10] MEDS: METOPROLOL TARTRATE 50 MG TAB PO SCH ×2 (09:47→20:22)
[2019-01-10] MEDS: PANTOPRAZOLE 40 MG/10 ML VIAL IVP SCH (09:47)
[2019-01-10] MEDS: ISOSORBIDE MONONITRATE ER 30 MG TAB.ER.24H PO SCH (09:47)
[2019-01-10] MEDS: FUROSEMIDE 20 MG TAB PO SCH (09:47)
--- NOTE | 2019-01-10 10:49 | P.HPIM ---
History of Present Illness H&P Date: 01/09/19 Chief Complaint: Shortness of breath/ low hemoglobin 88-year-old female presents emergency department stating that lately she has been more tired and more short of breath. She went to see her doctor because of this. Dr. Hernandez her hemoglobin is low to come to the emergency department. Patient states she has some kidney dysfunction. And her hemoglobin normally runs in the 80s but she's never had a get any blood but she does take iron. Patient states she has started to note some bright red blood in her stool as of yesterday. Patient denies any abdominal pain patient denies any chest pain patient denies any shortness of breath while lying in bed. Patient denies any recent fever chills or cough. Patient denies any swelling to the legs. Workup in ED namely EKG showing normal sinus rhythm with occasional PVCs with left bundle branch block; lab work showed a hemoglobin of 5.8; patient was given a unit of packed RBCs in ED and is admitted to the hospital for further GI evaluation and close monitoring of hemoglobin Review of Systems Constitutional: Denies chills, Denies fever Eyes: denies blurred vision Cardiovascular: Reports shortness of breath, Denies chest pain, Denies palpitations Respiratory: Denies cough with sputum Gastrointestinal: Denies abdominal pain, Denies hematemesis, Denies hematochezia Past Medical History Past Medical History: Coronary Artery Disease (CAD), Chest Pain / Angina, Heart Failure, COPD, CVA/TIA, Diabetes Mellitus, GERD/Reflux, Hearing Disorder / Deafness, Hyperlipidemia, Hypertension, Myocardial Infarction (TN), Osteoarthritis (OA), Pneumonia, Renal Disease, Skin Disorder Additional Past Medical History / Comment(s): IDDM type II, frequent pneumonia, aspiration pneumonia with sepsis, renal insufficiency, recurrent UTIs, TIA x 3, difficulty swallowing-crushes meds and puts them in yogurt-past EGD/dilations, anemia, eczema, "lazy bowel" but pt states anymore she goes from diarrhea to constipation easily, generalized arthritis, chronic baci pain, hiatal hernia Last Myocardial Infarction Date:: 1998, 09/21/17 History of Any Multi-Drug Resistant Organisms: VRE Date of last positivie culture/infection: 10/07/17 MDRO Source:: VRE URINE Past Surgical History: Cholecystectomy, Heart Catheterization With Stent Additional Past Surgical History / Comment(s): cataracts w/lens implants, ectopic with one ovary/tube removed, heart caths :04/30/96 stent to rca, 03/18/2000 stent to mid rca, 07/22/17 stent to lad Past Anesthesia/Blood Transfusion Reactions: Previous Problems w/ Anesthesia Additional Past Anesthesia/Blood Transfusion Reaction / Comment(s): difficulty breathing after anesthesia Date of Last Stent Placement:: 06/2017 Past Psychological History: Depression Additional Psychological History / Comment(s): Pt resides in an apartment at [facility]. She ambulates with a walker. Her daughter is very helpful and is in an apt above her. Pt has chore person from [employer]. She no longer drives, family takes her to [employer]. She goes up to her emile's for supper and manages her own medication. Smoking Status: Former smoker Past Alcohol Use History: None Reported Additional Past Alcohol Use History / Comment(s): Patient has history of smoking 3 packs per day started smoking at age 16 and quit in 1997 Past Drug Use History: None Reported - Past Family History Father History Unknown: Yes Family Medical History: Myocardial Infarction (TN) Additional Family Medical History / Comment(s): Father had a TN at the age of 50 yrs. He lived to be 75yrs old. Mother History Unknown: Yes Family Medical History: Myocardial Infarction (TN) Additional Family Medical History / Comment(s): Mother of a TN at about age 80yrs. Medications and Allergies Home Medications Medication Instructions Recorded Confirmed Type HYDROcodone/APAP 5-325MG [[place] 1 tab PO HS PRN 02/02/14 01/08/19 History 5-325] Omeprazole [PriLOSEC] 20 mg PO AC-BRKFST 02/02/14 01/08/19 History amLODIPine BESYLATE [Norvasc] 5 mg PO HS 02/02/14 01/08/19 History Ipratropium-Albuterol Nebulize 3 ml INHALATION RT-TID PRN 08/20/16 01/08/19 History [Duoneb 0.5 mg-3 mg/3 ml Soln] Montelukast [Singulair] 10 mg PO DAILY@1500 05/17/17 01/08/19 History Fluticasone/Salmeterol [Advair 1 puff INHALATION RT-BID 05/18/17 01/08/19 History 250-50 Diskus] Metoprolol Tartrate [Lopressor] 100 mg PO BID 07/18/17 01/08/19 History Sennosides [Senna] 8.6 mg PO HS 07/18/17 01/08/19 History Atorvastatin [Lipitor] 40 mg PO HS #30 tab 07/23/17 01/08/19 Rx Nitroglycerin Sl Tabs [Nitrostat] 0.4 mg SUBLINGUAL Q5M PRN #25 tab 07/23/17 01/08/19 Rx Isosorbide Mononitrate ER [Imdur] 30 mg PO DAILY #30 tab.er.24h 09/23/17 01/08/19 Rx Rivaroxaban [Xarelto] 15 mg PO HS@199912/11/17 01/08/19 History Acetaminophen [Tylenol] 1,000 mg PO Q4H PRN 05/14/18 01/08/19 History Insulin Detemir [Levemir Flextouch] 8 unit SQ DAILY@1430 05/14/18 01/08/19 History Multivitamin [Multivitamins Adult 1 tab PO DAILY 05/14/18 01/08/19 History Gummies] metFORMIN HCL [Glucophage] 500 mg PO BID 06/09/18 01/08/19 History Cholecalciferol (Vitamin D3) 2,000 unit PO DAILY 09/28/18 01/08/19 History [Vitamin D3] Oxazepam [Serax] 15 mg PO BID #60 capsule 10/05/18 01/08/19 Rx Aspirin EC [Ecotrin Low Dose] 81 mg PO Q48H 10/12/18 01/08/19 History Furosemide [Lasix] 20 mg PO DAILY@0900 01/08/19 01/08/19 History Furosemide [Lasix] 20 mg PO DAILY@1400 PRN 01/08/19 01/08/19 History Allergies Allergy/AdvReac Type Severity Reaction Status Date / Time amoxicillin trihydrate Allergy Unknown Verified 01/08/19 12:12 [From Augmentin] clindamycin HCl Allergy Unknown Verified 01/08/19 12:12 [From Cleocin] clindamycin palmitate HCl Allergy Unknown Verified 01/08/19 12:12 [From Cleocin] clindamycin phosphate Allergy Unknown Verified 01/08/19 12:12 [From Cleocin] codeine Allergy Unknown Verified 01/08/19 12:12 lorazepam [From Ativan] Allergy Confusion Verified 01/08/19 12:12 nitrofurantoin Allergy Unknown Verified 01/08/19 12:12 [From Macrobid] nitrofurantoin Allergy Unknown Verified 01/08/19 12:12 macrocrystalline [From Macrobid] Penicillins Allergy Unknown Verified 01/08/19 12:12 potassium clavulanate Allergy Unknown Verified 01/08/19 12:12 [From Augmentin] prednisone Allergy Unknown Verified 01/08/19 12:12 quinine Allergy Unknown Verified 01/08/19 12:12 Sulfa (Sulfonamide Allergy Unknown Verified 01/08/19 12:12 Antibiotics) sulfamethoxazole Allergy Unknown Verified 01/08/19 12:12 [From Bactrim] trimethoprim [From Bactrim] Allergy Unknown Verified 01/08/19 12:12 Physical Exam Vitals: Vital Signs Temp Pulse Pulse Resp BP BP Pulse Ox 01/09/19 12:00 73 14 01/09/19 08:24 72 01/09/19 08:12 72 01/09/19 08:00 97.4 F L 71 14 145/76 95 01/09/19 04:00 98.0 F 73 16 105/48 94 L 01/09/19 00:00 97.9 F 79 16 116/72 94 L 01/08/19 20:00 97.6 F 79 18 141/57 99 01/08/19 19:38 97.6 F 79 18 141/57 99 01/08/19 17:40 97.8 F 78 18 127/60 96 01/08/19 17:37 97.8 F 78 16 127/60 96 01/08/19 17:33 76 19 109/57 97 01/08/19 17:31 98.2 F 01/08/19 17:17 98.3 F 76 19 108/56 98 01/08/19 17:07 98.1 F 75 18 124/54 97 01/08/19 16:55 98.4 F 78 19 121/66 98 01/08/19 16:41 98.1 F 83 19 118/49 99 01/08/19 16:00 76 18 108/47 96 Intake and Output 01/08/19 01/09/1919 22:59 06:59 14:59 Intake Total 897 910 240 Output Total 100 400 Balance 897 810 -160 Intake: Intake, IV Titration 600 Amount Sodium Chloride 0.9% 1, 600 000 ml @ 75 mls/hr IV . [id number] ONE Rx#:[id number] Oral 587 240 Blood Product 310 310 Rc Pheresis As3 Unit 310 [id number] Output: Urine 100 400 Other: Voiding Method Bedside Commode Bedside Commode Bedside Commode # Voids 0 1 # Bowel Movements 0 Weight 51.8 kg 51.8 kg GENERAL: Patient is well-developed and well-nourished. Patient is nontoxic and well-hydrated and is in no acute distress. ENT: Neck is soft and supple. No significant lymphadenopathy is noted. Oropharynx is clear. Moist mucous membranes. Neck has full range of motion without eliciting any pain. EYES: Patient's conjunctiva are very pale. Extraocular movements were intact and pupils were equal round and reactive to light. Eyelids were unremarkable. PULMONARY: Unlabored respirations. Good breath sounds bilaterally. No audible rales rhonchi or wheezing was noted. CARDIOVASCULAR: There is a regular rate and rhythm without any murmurs gallops or rubs. Femoral pulses are equal bilaterally ABDOMEN: Soft and nontender with normal bowel sounds. No palpable organomegaly was noted. There is no palpable pulsatile mass. SKIN: Patient's skin is very pale. NEUROLOGIC: Patient is alert and oriented x3. Cranial nerves II through XII are grossly intact. Motor and sensory are also intact. Normal speech, volume and content. Symmetrical smile. MUSCULOSKELETAL: Normal extremities with adequate strength and full range of motion. No lower extremity swelling or edema. No calf tenderness. LYMPHATICS: No significant lymphadenopathy is noted PSYCHIATRIC: Normal psychiatric evaluation. Results CBC & Chem 7: 01/08/19 21:03 01/08/19 12:05 Labs: Abnormal Lab Results - Last 24 Hours (Table) 01/08/19 01/08/19 01/08/19 Range/Units 12:05 20:48 21:03 RBC 2.87 L (3.80-5.40) m/uL Hgb 7.3 L D (11.4-16.0) gm/dL Hct 23.9 L (34.0-46.0) % MCHC 30.4 L (31.0-37.0) g/dL POC Glucose (mg/dL) 111 H (75-99) mg/dL Crossmatch See Detail Thrombosis Risk Factor Assmnt - Choose All That Apply Each Risk Factor Represents 3 Points: Age 75 years or older Thrombosis Risk Factor Assessment Total Risk Factor Score: 3 Thrombosis Risk Factor Assessment Level: Moderate Risk Assessment and Plan Assessment: 1. Severe symptomatic anemia - Patient was transfused with 1 unit of packed RBCs in ED - Hemoglobin last checked on 01/08/2019 at 2100 was 7.3; no labs are available for this morning - We will order stat H&H and then continue to monitor every 8 hours with the plan to type crossmatch and transfuse if hemoglobin is less than 7 - Patient is started on IV Protonix; await further recommendations from GI 2. GI bleed; as above 3. Acute renal injury; patient started on IV fluids normal saline at a rate of 75 mL an hour; we will monitor strict SOURAV's, daily weights, renal function and electrolytes; avoid nephrotoxins and hypotension 4. Diabetes mellitus; continue with home dose of Levemir 8 units subcu daily at bedtime; we will monitor Accu-Cheks every before meals and at bedtime with insulin sliding scale; we will hold off on metformin while in the hospital 5. Hypertension; continue with amlodipine 5 mg daily along with metoprolol 100 mg twice a day 6. Hyperlipidemia; Lipitor 40 mg daily at bedtime 7. DVT prophylaxis; SCDs only due to GI bleed CODE STATUS; full code Time with Patient: Greater than 30
[2019-01-10 11:09] LABS: Basophils % (A) 0 %; Eosinophils # (A) 0.7 k/uL (0-0.7); Eosinophils % (A) 9 %; HCT 25.6 % (34.0-46.0); HGB 8.2 gm/dL (11.4-16.0); Hypochromasia Marked; Lymphocytes # (A) 2.1 k/uL (1.0-4.8); Lymphocytes % (A) 28 %; MCH 26.4 pg (25.0-35.0); MCHC 31.9 g/dL (31.0-37.0); MCV 82.7 fL (80.0-100.0); Mean Platelet Volume 6.9; Monocytes # (A) 0.5 k/uL (0-1.0); Monocytes % (A) 6 %; Neutrophils % (A) 53 %; Platelet Count 477 k/uL (150-450); Poikilocytosis Slight; RDW 15.7 % (11.5-15.5); WBC 7.6 k/uL (3.8-10.6)
[2019-01-10 11:16] LABS: Glucose,Whole Blood 121 mg/dL (75-99)
[2019-01-10] MEDS: MULTIVITAMINS, THERA 1 EACH TAB PO SCH (12:37)
[2019-01-10] MEDS: INSULIN DETEMIR (LEVEMIR) 100 UNIT/ML SYR SQ SCH (12:37)
--- NOTE | 2019-01-10 14:46 | P.PN ---
Subjective Progress Note Date: 01/10/19 Principal diagnosis: GI bleed 88-year-old female presents emergency department stating that lately she has been more tired and more short of breath. She went to see her doctor because of this. Dr. Hernandez her hemoglobin is low to come to the emergency department. Patient states she has some kidney dysfunction. And her hemoglobin normally runs in the 80s but she's never had a get any blood but she does take iron. Patient states she has started to note some bright red blood in her stool as of yesterday. 01/10/2019 Patient is seen and evaluated sitting up in bed; has been started on a clear liquid diet; once diet is advanced to regular Vital signs remained stable with a temperature 98.5, pulse 60, respiration 16 and blood pressure 108/55; SpO2 of 98% on room air labs are reviewed showing a stable hemoglobin of 8.2 this morning Patient has been seen and evaluated by GI and recommendations are to continue monitoring hemoglobin closely with possible EGD/colonoscopy if hemoglobin continues to drop and patient is able to tolerate Objective - Vital Signs Vital signs: Vital Signs Temp 98.1 F 01/10/19 04:00 Pulse 71 01/10/19 04:00 Resp 16 01/10/19 04:00 BP 102/61 01/10/19 04:00 Pulse Ox 95 01/10/19 04:00 Intake & Output 01/09/19 01/10/19 01/10/19 18:59 06:59 18:59 Intake Total 360 300 240 Output Total 400 Balance -40 300 240 Weight 51.8 kg 50.4 kg Intake: Oral 360 300 240 Output: Urine 400 Other: Voiding Method Bedside Commode Bedside Commode # Voids 1 - Exam - Constitutional General appearance: Present: average body habitus, cooperative, no acute distre ss - EENT Eyes: Present: anicteric sclerae, EOMI, PERRLA, normal appearance ENT: Present: hearing grossly normal, normal oropharynx Ears: bilateral: normal - Neck Neck: Present: normal ROM. Absent: lymphadenopathy, rigidity, thyromegaly Carotids: negative: bruit present Thyroid: bilateral: normal size, negative: enlarged, nodule - Respiratory Respiratory: bilateral: CTA, negative: rales, rhonchi, wheezing - Cardiovascular Rhythm: regular Heart sounds: normal: S1, S2 Abnormal Heart Sounds: Absent: systolic murmur, diastolic murmur - Gastrointestinal General gastrointestinal: Present: normal bowel sounds, soft. Absent: distended, organomegaly, tenderness - Genitourinary Genitourinary Comment(s): deferred - Integumentary Integumentary: Present: normal turgor. Absent: jaundiced, rash, ulcer - Neurologic Neurologic: Present: CNII-XII intact. Absent: focal deficits - Musculoskeletal Musculoskeletal: Present: gait normal, strength equal bilaterally - Psychiatric Psychiatric: Present: A&O x's 3, appropriate affect, intact judgment & insight - Labs CBC & Chem 7: 01/10/19 10:51 01/09/19 15:05 Labs: Abnormal Lab Results - Last 24 Hours (Table) 01/09/19 01/09/19 01/09/19 Range/Units 15:05 15:05 21:27 RBC 2.92 L (3.80-5.40) m/uL Hgb 7.4 L (11.4-16.0) gm/dL Hct 24.3 L (34.0-46.0) % MCHC 30.6 L (31.0-37.0) g/dL Chloride 108 H (98-107) mmol/L BUN 25 H (7-17) mg/dL Creatinine 1.52 H (0.52-1.04) mg/dL POC Glucose (mg/dL) 107 H (75-99) mg/dL Assessment and Plan Assessment: 1. Severe symptomatic anemia - Patient was transfused with 1 unit of packed RBCs in ED - Hemoglobin last checked on 01/08/2019 at 2100 was 7.3; no labs are available for this morning - We will order stat H&H and then continue to monitor every 8 hours with the plan to type crossmatch and transfuse if hemoglobin is less than 7 - Patient is started on IV Protonix; await further recommendations from GI 2. GI bleed; as above 3. Acute renal injury; patient started on IV fluids normal saline at a rate of 75 mL an hour; we will monitor strict SOURAV's, daily weights, renal function and electrolytes; avoid nephrotoxins and hypotension 4. Diabetes mellitus; continue with home dose of Levemir 8 units subcu daily at bedtime; we will monitor Accu-Cheks every before meals and at bedtime with insulin sliding scale; we will hold off on metformin while in the hospital 5. Hypertension; continue with amlodipine 5 mg daily along with metoprolol 100 mg twice a day 6. Hyperlipidemia; Lipitor 40 mg daily at bedtime 7. DVT prophylaxis; SCDs only due to GI bleed CODE STATUS; full code Time with Patient: Greater than 30
[2019-01-10 16:09] LABS: Glucose,Whole Blood 113 mg/dL (75-99)
[2019-01-10] MEDS: MONTELUKAST 10 MG TAB PO SCH (18:01)
[2019-01-10] MEDS: SENNOSIDES 8.6 MG TAB PO SCH (20:22)
[2019-01-10] MEDS: amLODIPine 5 MG TAB PO SCH (20:22)
[2019-01-10] MEDS: ATORVASTATIN 40 MG TAB PO SCH (20:22)
[2019-01-10 20:32] LABS: Glucose,Whole Blood 96 mg/dL (75-99)
[2019-01-10] MEDS: OXAZEPAM 15 MG PO SCH (22:40)
[2019-01-10] MEDS: HYDROcodone/APAP 5-325MG 1 EACH TAB PO PRN (22:40)
[2019-01-11 06:26] LABS: Glucose,Whole Blood 84 mg/dL (75-99)
[2019-01-11] MEDS: INSULIN ASPART (NovoLOG) 100 UNIT/ML VIAL SQ SCH ×4 (06:30→21:30)
[2019-01-11 06:40] LABS: Basophils % (A) 1 %; Eosinophils # (A) 0.7 k/uL (0-0.7); Eosinophils % (A) 10 %; HCT 28.1 % (34.0-46.0); HGB 8.8 gm/dL (11.4-16.0); Hypochromasia Marked; Lymphocytes # (A) 2.4 k/uL (1.0-4.8); Lymphocytes % (A) 38 %; MCH 26.2 pg (25.0-35.0); MCHC 31.4 g/dL (31.0-37.0); MCV 83.6 fL (80.0-100.0); Mean Platelet Volume 6.8; Monocytes # (A) 0.5 k/uL (0-1.0); Monocytes % (A) 7 %; Neutrophils # (A) 2.5 k/uL (1.3-7.7); Neutrophils % (A) 39 %; Platelet Count 439 k/uL (150-450); Poikilocytosis Slight; RBC 3.36 m/uL (3.80-5.40); RDW 15.7 % (11.5-15.5); WBC 6.4 k/uL (3.8-10.6)
[2019-01-11 06:46] LABS: Calcium 9.4 mg/dL (8.4-10.2); Potassium 3.9 mmol/L (3.5-5.1)
[2019-01-11] MEDS: PANTOPRAZOLE 40 MG/10 ML VIAL IVP SCH (08:27)
[2019-01-11] MEDS: METOPROLOL TARTRATE 50 MG TAB PO SCH ×2 (08:27→19:48)
[2019-01-11] MEDS: CHOLECALCIFEROL 1,000 UNIT TAB PO SCH (08:28)
[2019-01-11] MEDS: FUROSEMIDE 20 MG TAB PO SCH (08:28)
[2019-01-11] MEDS: ISOSORBIDE MONONITRATE ER 30 MG TAB.ER.24H PO SCH (08:28)
[2019-01-11] MEDS: MULTIVITAMINS, THERA 1 EACH TAB PO SCH (08:36)
[2019-01-11] MEDS: SYMBICORT 80-4.5 MCG INHALER INHALATION SCH ×2 (08:37→19:30)
--- NOTE | 2019-01-11 09:16 | P.PN ---
Subjective On-call hospitalist covering for Dr. Thayer 01/11/2019 is the first day I am taking care of this patient This is a pleasant 88 years old female who presents with GI bleed. Patient's telling me that her PCP Dr. Thayer call her for low hemoglobin. And her hemoglobin on admission was 5.8. She states last time she had a bloody bowel movement which was fresh blood was on 01/08/2019. Patient currently denies abdominal pain. However patient has epigastric tenderness on exam which is mild. No more bleeding as per patient. No nausea vomiting. Hemoglobin today is stable at 8.8. Vital signs stable. GI team were consulted. Objective - Vital Signs Vital signs: Vital Signs Temp 97.6 F 01/11/19 08:26 Pulse 73 01/11/19 08:43 Resp 16 01/11/19 08:43 BP 117/55 01/11/19 08:26 Pulse Ox 95 01/11/19 08:26 Intake & Output 01/10/19 01/11/19 01/11/19 18:59 06:59 18:59 Intake Total 684 150 Output Total 400 Balance 284 150 Weight 50 kg Intake: Oral 684 150 Output: Urine 400 Other: Voiding Method Bedside Commode Bedside Commode # Voids 1 - Exam GENERAL: The patient is alert and oriented x3, not in any acute distress. Well developed, well nourished. HEENT: Pupils are round and equally reacting to light. EOMI. No scleral icterus. No conjunctival pallor. Normocephalic, atraumatic. No pharyngeal erythema. No thyromegaly. CARDIOVASCULAR: S1 and S2 present. No murmurs, rubs, or gallops. PULMONARY: Chest is clear to auscultation, no wheezing or crackles. -ABDOMEN: Soft, mild epigastric tenderness with no guarding or rebound tenderness. nondistended, normoactive bowel sounds. No palpable organomegaly. MUSCULOSKELETAL: No joint swelling or deformity. EXTREMITIES: No cyanosis, clubbing, or pedal edema. NEUROLOGICAL: Gross neurological examination did not reveal any focal deficits. SKIN: No rashes. - Labs CBC & Chem 7: 01/11/19 06:06 01/11/19 06:06 Labs: Abnormal Lab Results - Last 24 Hours (Table) 01/10/19 01/10/19 01/10/19 Range/Units 10:51 11:15 16:06 RBC 3.10 L (3.80-5.40) m/uL Hgb 8.2 L (11.4-16.0) gm/dL Hct 25.6 L (34.0-46.0) % RDW 15.7 H (11.5-15.5) % Plt Count 477 H (150-450) k/uL BUN (7-17) mg/dL Creatinine (0.52-1.04) mg/dL POC Glucose (mg/dL) 121 H 113 H (75-99) mg/dL 01/11/19 01/11/19 Range/Units 06:06 06:06 RBC 3.36 L (3.80-5.40) m/uL Hgb 8.8 L (11.4-16.0) gm/dL Hct 28.1 L (34.0-46.0) % RDW 15.7 H (11.5-15.5) % Plt Count (150-450) k/uL BUN 21 H (7-17) mg/dL Creatinine 1.65 H (0.52-1.04) mg/dL POC Glucose (mg/dL) (75-99) mg/dL Assessment and Plan Assessment: GI bleed, with fresh blood per rectum Acute blood loss anemia Chronic kidney disease, stage 3-4 History of diabetes mellitus Hypertension Hyperlipidemia Plan: This is a pleasant 8 years old female who presents with GI bleed. Chest chronic kidney disease stage IV. Call nephrology consult. Gastroenterologists over the evaluated the patient. Continue with Protonix. Labs and medication were reviewed.. Continue same treatment. Continue with symptomatic treatment. R esume home medication. Monitor lytes and vitals. DVT and GI prophylaxis. Further recommendations of the clinical course of the patient DVT prophylaxis: No heparin in view of GI bleed GI Prophylaxis: Ppi Prognosis is guarded
--- NOTE | 2019-01-11 11:58 | P.NPCON ---
History of Present Illness - Reason for Consult acute renal failure, chronic renal failure - History of Present Illness Reason for consultation: Acute kidney injury on chronic kidney disease History of present illness: Patient is a 88-year-old female seen in consultation for acute kidney injury on chronic kidney disease. Patient is chronic kidney disease stage III secondary to nephrosclerosis with baseline creatinine in the range of 1.4-1.8. Creatinine was 1.87 on admission and is 1.65 today. She presented to the hospital with rectal bleeding. Hemoglobin was 5.8 on admission for which she did receive blood transition. Hemoglobin is 8.8 this morning. No further bleeding noted. Admits to good urine output. No hematuria or dysuria. No chest pain or shortness of breath. She is currently nothing by mouth but wants to eat. Denies use of nonsteroidals. She does a history of diabetes mellitus. Hemodynamically stable. GI has been following the patient. No plans for endoscopy at this time. Vital signs are stable. General: The patient appeared well nourished and normally developed. HEENT: Head exam is unremarkable. Neck is without jugular venous distension. LUNGS: Lungs are clear to auscultation and percussion. Breath sounds decreased. HEART: Rate and Rhythm are regular. First and second heart sounds normal. No murmurs, rubs or gallops. ABDOMEN: Abdominal exam reveals normal bowel sounds. Non-tender and non- distended. No evidence of peritonitis. EXTREMITITES: No clubbing, cyanosis, or edema. Past Medical History Past Medical History: Coronary Artery Disease (CAD), Chest Pain / Angina, Heart Failure, COPD, CVA/TIA, Diabetes Mellitus, GERD/Reflux, Hearing Disorder / Deafness, Hyperlipidemia, Hypertension, Myocardial Infarction (VT), Osteoarthritis (OA), Pneumonia, Renal Disease, Skin Disorder Additional Past Medical History / Comment(s): IDDM type II, frequent pneumonia, aspiration pneumonia with sepsis, renal insufficiency, recurrent UTIs, TIA x 3, difficulty swallowing-crushes meds and puts them in yogurt-past EGD/dilations, anemia, eczema, "lazy bowel" but pt states anymore she goes from diarrhea to constipation easily, generalized arthritis, chronic baci pain, hiatal hernia Last Myocardial Infarction Date:: 09/21/17 History of Any Multi-Drug Resistant Organisms: VRE Date of last positivie culture/infection: 10/07/17 MDRO Source:: VRE URINE Past Surgical History: Cholecystectomy, Heart Catheterization With Stent Additional Past Surgical History / Comment(s): cataracts w/lens implants, ectopic with one ovary/tube removed, heart caths :04/30/96 stent to rca, 03/18/2000 stent to mid rca, 07/22/17 stent to lad Past Anesthesia/Blood Transfusion Reactions: Previous Problems w/ Anesthesia Additional Past Anesthesia/Blood Transfusion Reaction / Comment(s): difficulty breathing after anesthesia Date of Last Stent Placement:: 06/2017 Past Psychological History: Depression Additional Psychological History / Comment(s): Pt resides in an apartment at [facility]. She ambulates with a walker. Her daughter is very helpful and is in an apt above her. Pt has chore person from [employer] on aging. She no longer drives, family takes her to [employer]. She goes up to her emile's for supper and manages her own medication. Smoking Status: Former smoker Past Alcohol Use History: None Reported Additional Past Alcohol Use History / Comment(s): Patient has history of smoking 3 packs per day started smoking at age 16 and quit in 1997 Past Drug Use History: None Reported - Past Family History Father History Unknown: Yes Family Medical History: Myocardial Infarction (VT) Additional Family Medical History / Comment(s): Father had a VT at the age of 50 yrs. He lived to be 75yrs old. Mother History Unknown: Yes Family Medical History: Myocardial Infarction (VT) Additional Family Medical History / Comment(s): Mother of a VT at about age 80yrs. Medications and Allergies Home Medications Medication Instructions Recorded Confirmed Type HYDROcodone/APAP 5-325MG [[place] 1 tab PO HS PRN 02/02/14 01/08/19 History 5-325] Omeprazole [PriLOSEC] 20 mg PO AC-BRKFST 02/02/14 01/08/19 History amLODIPine BESYLATE [Norvasc] 5 mg PO HS 02/02/14 01/08/19 History Ipratropium-Albuterol Nebulize 3 ml INHALATION RT-TID PRN 08/20/16 01/08/19 History [Duoneb 0.5 mg-3 mg/3 ml Soln] Montelukast [Singulair] 10 mg PO DAILY@1500 05/17/17 01/08/19 History Fluticasone/Salmeterol [Advair 1 puff INHALATION RT-BID 05/18/17 01/08/19 History 250-50 Diskus] Metoprolol Tartrate [Lopressor] 100 mg PO BID 07/18/17 01/08/19 History Sennosides [Senna] 8.6 mg PO HS 07/18/17 01/08/19 History Atorvastatin [Lipitor] 40 mg PO HS #30 tab 07/23/17 01/08/19 Rx Nitroglycerin Sl Tabs [Nitrostat] 0.4 mg SUBLINGUAL Q5M PRN #25 tab 07/23/17 01/08/19 Rx Isosorbide Mononitrate ER [Imdur] 30 mg PO DAILY #30 tab.er.24h 09/23/17 01/08/19 Rx Rivaroxaban [Xarelto] 15 mg PO HS@199912/11/17 01/08/19 History Acetaminophen [Tylenol] 1,000 mg PO Q4H PRN 05/14/18 01/08/19 History Insulin Detemir [Levemir Flextouch] 8 unit SQ DAILY@1430 05/14/18 01/08/19 History Multivitamin [Multivitamins Adult 1 tab PO DAILY 05/14/18 01/08/19 History Gummies] metFORMIN HCL [Glucophage] 500 mg PO BID 06/09/18 01/08/19 History Cholecalciferol (Vitamin D3) 2,000 unit PO DAILY 09/28/18 01/08/19 History [Vitamin D3] Oxazepam [Serax] 15 mg PO BID #60 capsule 10/05/18 01/08/19 Rx Aspirin EC [Ecotrin Low Dose] 81 mg PO Q48H 10/12/18 01/08/19 History Furosemide [Lasix] 20 mg PO DAILY@0900 01/08/19 01/08/19 History Furosemide [Lasix] 20 mg PO DAILY@1400 PRN 01/08/19 01/08/19 History Allergies Allergy/AdvReac Type Severity Reaction Status Date / Time amoxicillin trihydrate Allergy Unknown Verified 01/08/19 12:12 [From Augmentin] clindamycin HCl Allergy Unknown Verified 01/08/19 12:12 [From Cleocin] clindamycin palmitate HCl Allergy Unknown Verified 01/08/19 12:12 [From Cleocin] clindamycin phosphate Allergy Unknown Verified 01/08/19 12:12 [From Cleocin] codeine Allergy Unknown Verified 01/08/19 12:12 lorazepam [From Ativan] Allergy Confusion Verified 01/08/19 12:12 nitrofurantoin Allergy Unknown Verified 01/08/19 12:12 [From Macrobid] nitrofurantoin Allergy Unknown Verified 01/08/19 12:12 macrocrystalline [From Macrobid] Penicillins Allergy Unknown Verified 01/08/19 12:12 potassium clavulanate Allergy Unknown Verified 01/08/19 12:12 [From Augmentin] prednisone Allergy Unknown Verified 01/08/19 12:12 quinine Allergy Unknown Verified 01/08/19 12:12 Sulfa (Sulfonamide Allergy Unknown Verified 01/08/19 12:12 Antibiotics) sulfamethoxazole Allergy Unknown Verified 01/08/19 12:12 [From Bactrim] trimethoprim [From Bactrim] Allergy Unknown Verified 01/08/19 12:12 Physical Exam Vitals: Vital Signs Temp Pulse Resp BP Pulse Ox 01/11/19 11:37 96.8 F L 58 L 16 105/53 98 01/11/19 11:35 73 16 01/11/19 08:43 73 16 01/11/19 08:26 97.6 F 73 16 117/55 95 01/11/19 04:00 98.0 F 72 16 106/59 99 01/10/19 23:58 97.9 F 56 L 18 125/50 99 01/10/19 20:00 97.8 F 61 18 153/67 99 01/10/19 16:00 71 130/57 97 01/10/19 12:00 60 108/55 98 Intake and Output 01/10/19 01/11/19 01/11/19 22:59 06:59 14:59 Intake Total 372 Output Total 300 Balance 372 -300 Intake: Oral 372 Output: Urine 300 Other: Voiding Method Bedside Commode Bedside Commode Bedside Commode # Voids 1 1 1 Weight 50 kg Results - Lab Results Most recent lab results Calcium 9.4 mg/dL (8.4-10.2) 01/11/19 06:06 Magnesium 1.7 mg/dL (1.6-2.3) 01/08/19 12:05 01/11/19 06:06 01/11/19 06:06 Assessment and Plan Plan: Assessment: 1. Acute kidney injury mostly prerenal secondary to acute anemia. Creatinine 1.87 on admission and is 1.65 today. 2. Chronic kidney disease stage III secondary to nephrosclerosis with baseline creatinine in the range of 1.4-1.8. 3. Acute blood loss anemia secondary to GI bleed. Status post blood transfusi on. GI following. Hemoglobin improved. No active bleeding noted. 4. Dyspnea secondary to symptomatically anemia. Improved. 5. Diabetes mellitus. 6. Hypertension with chronic kidney disease. Controlled. Plan: Maintain Lasix 20 mg daily. Encourage oral intake. Add Aranesp. Check iron studies. Follow-up echocardiogram. Avoid nephrotoxins. Continue to monitor renal function and urine output. Thank you for the consultation. I will continue to follow the patient with you during her hospital stay.
[2019-01-11] MEDS ORDERED: DARBEPOETIN ALFA 40 MCG/0.4 ML SYRINGE SQ SCH (12:00)
[2019-01-11 12:20] LABS: Glucose,Whole Blood 118 mg/dL (75-99)
--- NOTE | 2019-01-11 12:45 | ECHOF ---
Referral Reason:chf MEASUREMENTS -------- HEIGHT: 132.1 cm WEIGHT: 49.9 kg BP: 106/59 RVIDd: 3.3 cm (< 3.3) IVSd: 1.4 cm (0.6 - 1.1) LVIDd: 4.0 cm (3.9 - 5.3) LVPWd: 1.5 cm (0.6 - 1.1) IVSs: 1.4 cm LVIDs: 3.1 cm LVPWs: 1.7 cm LA Diam: 5.0 cm (2.7 - 3.8) LAESV Index (A-L): 48.58 ml/m Ao Diam: 3.3 cm (2.0 - 3.7) AV Cusp: 1.1 cm (1.5 - 2.6) LA Diam: 4.4 cm (2.7 - 3.8) MV EXCURSION: 11.106 mm (> 18.000) MV EF SLOPE: 36 mm/s (70 - 150) EPSS: 0.9 cm MV E Isacc: 0.83 m/s MV DecT: 302 ms MV A Isacc: 1.20 m/s MV E/A Ratio: 0.69 AV maxP.91 mmHg AV meanP.78 mmHg AR PHT: 955 ms RAP: 5.00 mmHg RVSP: 27.92 mmHg FINDINGS -------- Undetermined rhythm. This was a technically adequate study. The left ventricular size is normal. There is moderate concentric left ventricular hypertrophy. O verall left ventricular systolic function is mildly impaired with, an EF between 45 - 50 %. Basal i nferior LV wall motion is hypokinetic. Mid inferior LV wall motion is hypokinetic. The right ventricle is normal in size. The left atrial size is normal. The right atrial size is normal. Interatrial and interventricular septum intact. There is mild aortic regurgitation. There is [id number] aortic stenosis present. Peak/shalini n gradient across the Aortic Valve is 51.91mmHg / 28.78mmHg. Mild mitral annular calcification present. Moderate mitral regurgitation is present. Mild tricuspid regurgitation present. There is no evidence of pulmonary hypertension. The right v entricular systolic pressure, as measured by Doppler, is 27.92mmHg. Trace/mild (physiologic) pulmonic regurgitation. The aortic root size is normal. Normal inferior vena cava with normal inspiratory collapse consistent with estimated right atrial pre ssure of 5 mmHg. There is no pericardial effusion. CONCLUSIONS -------- 1. The left ventricular size is normal. 2. There is moderate concentric left ventricular hypertrophy. 3. Basal inferior LV wall motion is hypokinetic. 4. The right ventricle is normal in size. 5. The left atrial size is normal. 6. The right atrial size is normal. 7. Interatrial and interventricular septum intact. 8. There is mild aortic regurgitation. 9. There is wlgblowj-[id number] aortic stenosis present. 10. Peak/mean gradient across the Aortic Valve is 51.91mmHg / 28.78mmHg. 11. Mild mitral annular calcification present. 12. Moderate mitral regurgitation is present. 13. Mild tricuspid regurgitation present. 14. There is no evidence of pulmonary hypertension. 15. The right ventricular systolic pressure, as measured by Doppler, is 27.92mmHg. 16. Trace/mild (physiologic) pulmonic regurgitation. 17. The aortic root size is normal. 18. Normal inferior vena cava with normal inspiratory collapse consistent with estimated right atrial pressure of 5 mmHg. 19. There is no pericardial effusion. GEOTHERMAL FIELD TECHNICIAN: Bev Bower RDCS
[2019-01-11 14:48] VITALS: BMI 23.8
[2019-01-11 16:35] LABS: Glucose,Whole Blood 227 mg/dL (75-99)
[2019-01-11] MEDS: MONTELUKAST 10 MG TAB PO SCH (16:44)
[2019-01-11] MEDS: INSULIN DETEMIR (LEVEMIR) 100 UNIT/ML SYR SQ SCH (16:44)
[2019-01-11 18:25] LABS: Iron Saturation 3.7 (12.00-45.00)
--- NOTE | 2019-01-11 18:50 | P.PN ---
Subjective Progress Note Date: 01/11/19 Principal diagnosis: Blood per rectum, anemia and acute blood loss The patient is seen lying in bed. She denies any further bowel movements or blood per rectum. She is asking for her diet to be advanced. Objective - Vital Signs Vital signs: Vital Signs Temp 97.3 F L 01/11/19 16:17 Pulse 72 01/11/19 16:17 Resp 16 01/11/19 16:17 BP 133/84 01/11/19 16:17 Pulse Ox 98 01/11/19 16:17 Intake & Output 01/10/19 01/11/19 01/11/19 18:59 06:59 18:59 Intake Total 684 150 720 Output Total 400 300 Balance 284 150 420 Weight 50 kg 50 kg Intake: Oral 684 150 720 Output: Urine 400 300 Other: Voiding Method Bedside Commode Bedside Commode # Voids 1 1 - Exam On physical examination, patient appears comfortable in no apparent distress. HEAD: Normocephalic, atraumatic. EYES: No scleral icterus. No conjunctival injection. MOUTH: No lesions, tongue midline. NECK: Trachea midline, no gross abnormalities. CHEST: Decreased air entry in all lung scruggs. ABDOMEN: Soft. Bowel sounds are positive. No organomegaly. No guarding or rigidity. EXTREMITIES: No pedal edema. SKIN: No rashes, no jaundice. NEUROLOGIC: Alert and oriented. No focal deficits. - Labs CBC & Chem 7: 01/11/19 06:06 01/11/19 06:06 Labs: Abnormal Lab Results - Last 24 Hours (Table) 01/11/19 01/11/19 01/11/19 Range/Units 06:06 06:06 06:06 RBC 3.36 L (3.80-5.40) m/uL Hgb 8.8 L (11.4-16.0) gm/dL Hct 28.1 L (34.0-46.0) % RDW 15.7 H (11.5-15.5) % BUN 21 H (7-17) mg/dL Creatinine 1.65 H (0.52-1.04) mg/dL POC Glucose (mg/dL) (75-99) mg/dL Iron 11 L (50-170) ug/dL Iron Saturation 3.70 L (12.00-45.00) 01/11/19 01/11/19 Range/Units 11:48 16:28 RBC (3.80-5.40) m/uL Hgb (11.4-16.0) gm/dL Hct (34.0-46.0) % RDW (11.5-15.5) % BUN (7-17) mg/dL Creatinine (0.52-1.04) mg/dL POC Glucose (mg/dL) 118 H 227 H (75-99) mg/dL Iron (50-170) ug/dL Iron Saturation (12.00-45.00) Assessment and Plan (1) GI bleed Narrative/Plan: 88-year-old female presenting with complaints of bright red blood per rectum. Unknown etiology with differential including perianal/hemorrhoidal pathology, d iverticular bleed, AVM, or other etiology. Patient has had no further bleeding since admission. She is asking for diet to be advanced. Current Visit: Yes Status: Acute Code(s): K92.2 - GASTROINTESTINAL HEMORRHAGE, UNSPECIFIED SNOMED Code(s): 70354421 (2) Anemia Narrative/Plan: Anemia of acute blood loss. The patient presenting with complaints of bright red blood per rectum and subsequent fall in hemoglobin likely secondary to lower GI bleed. Hemoglobin has now remained stable at 8.8 from 8.0 Current Visit: Yes Status: Acute Code(s): D64.9 - ANEMIA, UNSPECIFIED SNOMED Code(s): 628246023 Plan: Supportive care Diet advance to low fiber low residual Continue to monitor for signs and symptoms of GI bleeding Continue to monitor hemoglobin and transfuse as needed Extensive conversation with the patient today regarding the possibility of colonoscopic evaluation, given the patient's age and comorbidities she would be high risk for anesthesia and hemoglobin has stabilized as well as resolution of symptoms. At this time the patient has indicated that she would like to continue with conservative measures. If further signs or symptoms of GI bleeding occur or fall in hemoglobin we'll reevaluate for possible endoscopy. Thank you for allowing us to participate in care of this patient we will continue to follow
[2019-01-11] MEDS: SENNOSIDES 8.6 MG TAB PO SCH (19:48)
[2019-01-11] MEDS: amLODIPine 5 MG TAB PO SCH (19:48)
[2019-01-11] MEDS: ATORVASTATIN 40 MG TAB PO SCH (19:48)
[2019-01-11 20:17] LABS: Appearance,Urine Clear (Clear); Bacteria,Urine Rare /hpf; Bilirubin,Urine Negative (Negative); Blood,Urine Negative (Negative); Color,Urine Yellow; Glucose,Urine (UA) Negative (Negative); Ketones,Urine Negative (Negative); Leukocyte Esterase,Urine Small (Negative); Mucus,Urine Rare /hpf; Nitrite,Urine Negative (Negative); PH, Urine 6.5 (5.0-8.0); Protein,Urine Trace (Negative); RBC,Urine 1 /hpf (0-5); Squamous Epithelial Cell,Urine 2 /hpf (0-4); Urobilinogen,Urine <2.0 mg/dL (<2.0); WBC,Urine 5 /hpf (0-5)
[2019-01-11 20:59] LABS: Glucose,Whole Blood 107 mg/dL (75-99)
[2019-01-11] MEDS: HYDROcodone/APAP 5-325MG 1 EACH TAB PO PRN (23:10)
[2019-01-11] MEDS: OXAZEPAM 15 MG PO SCH (23:11)
[2019-01-12 05:46] LABS: Glucose,Whole Blood 102 mg/dL (75-99)
[2019-01-12] MEDS: INSULIN ASPART (NovoLOG) 100 UNIT/ML VIAL SQ SCH ×4 (06:37→22:09)
[2019-01-12 07:10] LABS: Basophils # (A) 0.1 k/uL (0-0.2); Basophils % (A) 1 %; Eosinophils # (A) 0.6 k/uL (0-0.7); Eosinophils % (A) 9 %; HCT 27.7 % (34.0-46.0); HGB 8.4 gm/dL (11.4-16.0); Hypochromasia Marked; Lymphocytes % (A) 42 %; MCH 24.9 pg (25.0-35.0); MCHC 30.2 g/dL (31.0-37.0); MCV 82.4 fL (80.0-100.0); Mean Platelet Volume 7.1; Monocytes # (A) 0.6 k/uL (0-1.0); Monocytes % (A) 8 %; Neutrophils # (A) 2.6 k/uL (1.3-7.7); Neutrophils % (A) 37 %; Platelet Count 485 k/uL (150-450); Poikilocytosis Moderate; RBC 3.36 m/uL (3.80-5.40); RDW 14.9 % (11.5-15.5); WBC 7.1 k/uL (3.8-10.6)
[2019-01-12 07:12] LABS: Calcium 9.2 mg/dL (8.4-10.2); Potassium 3.8 mmol/L (3.5-5.1)
[2019-01-12] MEDS: SYMBICORT 80-4.5 MCG INHALER INHALATION SCH ×2 (07:28→20:34)
[2019-01-12] MEDS: FUROSEMIDE 20 MG TAB PO SCH (08:52)
[2019-01-12] MEDS: MULTIVITAMINS, THERA 1 EACH TAB PO SCH (08:52)
[2019-01-12] MEDS: ISOSORBIDE MONONITRATE ER 30 MG TAB.ER.24H PO SCH (08:52)
[2019-01-12] MEDS: METOPROLOL TARTRATE 50 MG TAB PO SCH ×2 (08:52→20:16)
[2019-01-12] MEDS: PANTOPRAZOLE 40 MG/10 ML VIAL IVP SCH (08:52)
[2019-01-12] MEDS: CHOLECALCIFEROL 1,000 UNIT TAB PO SCH (08:52)
--- NOTE | 2019-01-12 10:49 | P.PN ---
Subjective Patient is seen in follow-up for acute kidney injury on chronic kidney disease. Patient has chronic kidney disease stage III secondary to nephrosclerosis with baseline creatinine in the range of 1.4-1.8. GFR is near baseline. No active bleeding. Hemoglobin stable. Denies chest pain or shortness of breath. Urine output is good. Vital signs are stable. General: The patient appeared well nourished and normally developed. HEENT: Head exam is unremarkable. Neck is without jugular venous distension. LUNGS: Lungs are clear to auscultation and percussion. Breath sounds decreased. HEART: Rate and Rhythm are regular. First and second heart sounds normal. No murmurs, rubs or gallops. ABDOMEN: Abdominal exam reveals normal bowel sounds. Non-tender and non- distended. No evidence of peritonitis. EXTREMITITES: No clubbing, cyanosis, or edema. Objective - Vital Signs Vital signs: Vital Signs Temp 97.5 F L 01/12/19 08:06 Pulse 75 01/12/19 08:56 Resp 18 01/12/19 08:56 BP 154/65 01/12/19 08:06 Pulse Ox 100 01/12/19 08:06 Intake & Output 01/11/19 01/12/19 01/12/19 18:59 06:59 18:59 Intake Total 720 390 240 Output Total 300 150 Balance 420 240 240 Weight 50 kg 49.6 kg Intake: IV 30 Invasive Line 2 30 Oral 720 360 240 Output: Urine 300 150 Other: Voiding Method Bedside Commode Toilet Toilet Bedside Commode Bedside Commode # Voids 1 3 - Labs CBC & Chem 7: 01/12/19 06:03 01/12/19 06:03 Labs: Abnormal Lab Results - Last 24 Hours (Table) 01/11/19 01/11/19 01/11/19 Range/Units 06:06 11:48 16:28 RBC (3.80-5.40) m/uL Hgb (11.4-16.0) gm/dL Hct (34.0-46.0) % MCH (25.0-35.0) pg MCHC (31.0-37.0) g/dL Plt Count (150-450) k/uL BUN (7-17) mg/dL Creatinine (0.52-1.04) mg/dL POC Glucose (mg/dL) 118 H 227 H (75-99) mg/dL Iron 11 L (50-170) ug/dL Iron Saturation 3.70 L (12.00-45.00) Urine Protein (Negative) Ur Leukocyte Esterase (Negative) Urine Bacteria (None) /hpf Urine Mucus (None) /hpf 01/11/19 01/11/19 01/12/19 Range/Units 20:58 Unknown 05:45 RBC (3.80-5.40) m/uL Hgb (11.4-16.0) gm/dL Hct (34.0-46.0) % MCH (25.0-35.0) pg MCHC (31.0-37.0) g/dL Plt Count (150-450) k/uL BUN (7-17) mg/dL Creatinine (0.52-1.04) mg/dL POC Glucose (mg/dL) 107 H 102 H (75-99) mg/dL Iron (50-170) ug/dL Iron Saturation (12.00-45.00) Urine Protein Trace H (Negative) Ur Leukocyte Esterase Small H (Negative) Urine Bacteria Rare H (None) /hpf Urine Mucus Rare H (None) /hpf 01/12/19 01/12/19 Range/Units 06:03 06:03 RBC 3.36 L (3.80-5.40) m/uL Hgb 8.4 L (11.4-16.0) gm/dL Hct 27.7 L (34.0-46.0) % MCH 24.9 L (25.0-35.0) pg MCHC 30.2 L (31.0-37.0) g/dL Plt Count 485 H (150-450) k/uL BUN 25 H (7-17) mg/dL Creatinine 1.81 H (0.52-1.04) mg/dL POC Glucose (mg/dL) (75-99) mg/dL Iron (50-170) ug/dL Iron Saturation (12.00-45.00) Urine Protein (Negative) Ur Leukocyte Esterase (Negative) Urine Bacteria (None) /hpf Urine Mucus (None) /hpf Assessment and Plan Plan: Assessment: 1. Acute kidney injury mostly prerenal secondary to acute anemia. Creatinine 1.87 on admission and is 1.81 today. 2. Chronic kidney disease stage III secondary to nephrosclerosis with baseline creatinine in the range of 1.4-1.8. 3. Acute blood loss anemia secondary to GI bleed. Status post blood transfusion. GI following. Hemoglobin improved. No active bleeding noted. Severe iron deficiency noted. Maintained on Aranesp. 4. Dyspnea secondary to symptomatically anemia. Improved. 5. Diabetes mellitus. 6. Hypertension with chronic kidney disease. Controlled. 7. Systolic CHF with ejection fraction of 45-50% with moderate to severe aortic stenosis. Moderate mitral regurgitation. Plan: Maintain Lasix 20 mg daily. Encourage oral intake. IV iron 3 doses. First dose today. Avoid nephrotoxins. Continue to monitor renal function and urine output.
--- NOTE | 2019-01-12 11:23 | P.PN ---
Subjective Progress Note Date: 01/12/19 Principal diagnosis: Blood per rectum anemia acute blood loss Denies rectal bleeding. Afebrile. Tolerating diet. No complaints. Hemoglobin 8.4. Objective - Vital Signs Vital signs: Vital Signs Temp 97.5 F L 01/12/19 08:06 Pulse 75 01/12/19 08:56 Resp 18 01/12/19 08:56 BP 154/65 01/12/19 08:06 Pulse Ox 100 01/12/19 08:06 Intake & Output 01/11/19 01/12/19 01/12/19 18:59 06:59 18:59 Intake Total 720 390 240 Output Total 300 150 Balance 420 240 240 Weight 50 kg 49.6 kg Intake: IV 30 Invasive Line 2 30 Oral 720 360 240 Output: Urine 300 150 Other: Voiding Method Bedside Commode Toilet Toilet Bedside Commode Bedside Commode # Voids 1 3 - Exam On physical examination, patient appears comfortable in no apparent distress. HEAD: Normocephalic, atraumatic. EYES: No scleral icterus. No conjunctival injection. MOUTH: No lesions, tongue midline. NECK: Trachea midline, no gross abnormalities. CHEST: Decreased air entry in all lung scruggs. ABDOMEN: Soft. Bowel sounds are positive. No organomegaly. No guarding or rigidity. EXTREMITIES: No pedal edema. SKIN: No rashes, no jaundice. NEUROLOGIC: Alert and oriented. No focal deficits. - Labs CBC & Chem 7: 01/12/19 06:03 01/12/19 06:03 Labs: Abnormal Lab Results - Last 24 Hours (Table) 01/11/19 01/11/19 01/11/19 Range/Units 06:06 11:48 16:28 RBC (3.80-5.40) m/uL Hgb (11.4-16.0) gm/dL Hct (34.0-46.0) % MCH (25.0-35.0) pg MCHC (31.0-37.0) g/dL Plt Count (150-450) k/uL BUN (7-17) mg/dL Creatinine (0.52-1.04) mg/dL POC Glucose (mg/dL) 118 H 227 H (75-99) mg/dL Iron 11 L (50-170) ug/dL Iron Saturation 3.70 L (12.00-45.00) Urine Protein (Negative) Ur Leukocyte Esterase (Negative) Urine Bacteria (None) /hpf Urine Mucus (None) /hpf 01/11/19 01/11/19 01/12/19 Range/Units 20:58 Unknown 05:45 RBC (3.80-5.40) m/uL Hgb (11.4-16.0) gm/dL Hct (34.0-46.0) % MCH (25.0-35.0) pg MCHC (31.0-37.0) g/dL Plt Count (150-450) k/uL BUN (7-17) mg/dL Creatinine (0.52-1.04) mg/dL POC Glucose (mg/dL) 107 H 102 H (75-99) mg/dL Iron (50-170) ug/dL Iron Saturation (12.00-45.00) Urine Protein Trace H (Negative) Ur Leukocyte Esterase Small H (Negative) Urine Bacteria Rare H (None) /hpf Urine Mucus Rare H (None) /hpf 01/12/19 01/12/19 Range/Units 06:03 06:03 RBC 3.36 L (3.80-5.40) m/uL Hgb 8.4 L (11.4-16.0) gm/dL Hct 27.7 L (34.0-46.0) % MCH 24.9 L (25.0-35.0) pg MCHC 30.2 L (31.0-37.0) g/dL Plt Count 485 H (150-450) k/uL BUN 25 H (7-17) mg/dL Creatinine 1.81 H (0.52-1.04) mg/dL POC Glucose (mg/dL) (75-99) mg/dL Iron (50-170) ug/dL Iron Saturation (12.00-45.00) Urine Protein (Negative) Ur Leukocyte Esterase (Negative) Urine Bacteria (None) /hpf Urine Mucus (None) /hpf Assessment and Plan (1) GI bleed Narrative/Plan: 88-year-old female presenting with complaints of bright red blood per rectum. Unknown etiology with differential including perianal/hemorrhoidal pathology, diverticular bleed, AVM, or other etiology. Patient has had no further bleeding since admission. Current Visit: Yes Status: Acute Code(s): K92.2 - GASTROINTESTINAL HEMORRHAGE, UNSPECIFIED SNOMED Code(s): 20371793 (2) Anemia Narrative/Plan: Anemia of acute blood loss. The patient presenting with complaints of bright red blood per rectum and subsequent fall in hemoglobin likely secondary to lower GI bleed. Hemoglobin has now remained stable at 8.4. Current Visit: Yes Status: Acute Code(s): D64.9 - ANEMIA, UNSPECIFIED SNOMED Code(s): 869836136 Plan: Supportive care Diet advance to low fiber low residual Continue to monitor for signs and symptoms of GI bleeding Continue to monitor hemoglobin and transfuse as needed Extensive conversation with the patient yesterday with farm field manager reg arding the possibility of colonoscopic evaluation, given the patient's age and comorbidities she would be high risk for anesthesia and hemoglobin has stabilized as well as resolution of symptoms. At this time the patient has indicated that she would like to continue with conservative measures. If further signs or symptoms of GI bleeding occur or fall in hemoglobin we'll reevaluate for possible endoscopy. Thank you for allowing us to participate in care of this patient we will continue to follow Assessment and plan a care discussed with Dr. Stone
[2019-01-12] MEDS: SODIUM FERRIC GLUCONAT-SUCROSE 125 MG in SODIUM CHLORIDE 0.9% 100 ML IVPB SCH (11:31)
[2019-01-12 12:01] LABS: Glucose,Whole Blood 163 mg/dL (75-99)
--- NOTE | 2019-01-12 12:39 | P.PN ---
Subjective On-call hospitalist covering for Dr. Thayer 01/11/2019 is the first day I am taking care of this patient This is a pleasant 88 years old female who presents with GI bleed. Patient's telling me that her PCP Dr. Thayer call her for low hemoglobin. And her hemoglobin on admission was 5.8. She states last time she had a bloody bowel movement which was fresh blood was on 01/08/2019. Patient currently denies abdominal pain. However patient has epigastric tenderness on exam which is mild. No more bleeding as per patient. No nausea vomiting. Hemoglobin today is stable at 8.8. Vital signs stable. GI team were consulted. 01/12/2019 Patient denies any pain, no more bleeding per rectum. However she is a bit short of breath today and she has runny nose. She denies chest pain. We will do a chest x-ray and fluoroscopy was was negative for DVT. Patient is being followed by gastroenterology however patient does not want to do colonoscopy at this time and to continue with conservative management as per recommendation of the GI team. Also career transition specialist input is appreciated, patient will need IV iron x3. Creatinine today is 1.8. Hemoglobin is 8.3 Objective - Vital Signs Vital signs: Vital Signs Temp 97.4 F L 01/12/19 11:36 Pulse 73 01/12/19 11:37 Resp 18 01/12/19 11:37 BP 106/50 01/12/19 11:36 Pulse Ox 98 01/12/19 11:36 Intake & Output 01/11/19 01/12/19 01/12/19 18:59 06:59 18:59 Intake Total 720 390 480 Output Total 300 150 300 Balance 420 240 180 Weight 50 kg 49.6 kg Intake: IV 30 Invasive Line 2 30 Oral 720 360 480 Output: Urine 300 150 300 Other: Voiding Method Bedside Commode Toilet Toilet Bedside Commode Bedside Commode # Voids 1 3 1 - Exam GENERAL: The patient is alert and oriented x3, not in any acute distress. Well developed, well nourished. HEENT: Pupils are round and equally reacting to light. EOMI. No scleral icterus. No conjunctival pallor. Normocephalic, atraumatic. No pharyngeal erythema. No t hyromegaly. CARDIOVASCULAR: S1 and S2 present. No murmurs, rubs, or gallops. PULMONARY: Chest is clear to auscultation, no wheezing or crackles. -ABDOMEN: Soft, mild epigastric tenderness with no guarding or rebound tenderness. nondistended, normoactive bowel sounds. No palpable organomegaly. MUSCULOSKELETAL: No joint swelling or deformity. EXTREMITIES: No cyanosis, clubbing, or pedal edema. NEUROLOGICAL: Gross neurological examination did not reveal any focal deficits. SKIN: No rashes. - Labs CBC & Chem 7: 01/12/19 06:03 01/12/19 06:03 Labs: Abnormal Lab Results - Last 24 Hours (Table) 01/11/19 01/11/19 01/11/19 Range/Units 06:06 16:28 20:58 RBC (3.80-5.40) m/uL Hgb (11.4-16.0) gm/dL Hct (34.0-46.0) % MCH (25.0-35.0) pg MCHC (31.0-37.0) g/dL Plt Count (150-450) k/uL BUN (7-17) mg/dL Creatinine (0.52-1.04) mg/dL POC Glucose (mg/dL) 227 H 107 H (75-99) mg/dL Iron 11 L (50-170) ug/dL Iron Saturation 3.70 L (12.00-45.00) Urine Protein (Negative) Ur Leukocyte Esterase (Negative) Urine Bacteria (None) /hpf Urine Mucus (None) /hpf 01/11/19 01/12/19 01/12/19 Range/Units Unknown 05:45 06:03 RBC 3.36 L (3.80-5.40) m/uL Hgb 8.4 L (11.4-16.0) gm/dL Hct 27.7 L (34.0-46.0) % MCH 24.9 L (25.0-35.0) pg MCHC 30.2 L (31.0-37.0) g/dL Plt Count 485 H (150-450) k/uL BUN (7-17) mg/dL Creatinine (0.52-1.04) mg/dL POC Glucose (mg/dL) 102 H (75-99) mg/dL Iron (50-170) ug/dL Iron Saturation (12.00-45.00) Urine Protein Trace H (Negative) Ur Leukocyte Esterase Small H (Negative) Urine Bacteria Rare H (None) /hpf Urine Mucus Rare H (None) /hpf 01/12/19 01/12/19 Range/Units 06:03 11:37 RBC (3.80-5.40) m/uL Hgb (11.4-16.0) gm/dL Hct (34.0-46.0) % MCH (25.0-35.0) pg MCHC (31.0-37.0) g/dL Plt Count (150-450) k/uL BUN 25 H (7-17) mg/dL Creatinine 1.81 H (0.52-1.04) mg/dL POC Glucose (mg/dL) 163 H (75-99) mg/dL Iron (50-170) ug/dL Iron Saturation (12.00-45.00) Urine Protein (Negative) Ur Leukocyte Esterase (Negative) Urine Bacteria (None) /hpf Urine Mucus (None) /hpf Assessment and Plan Assessment: GI bleed, with fresh blood per rectum Acute blood loss anemia Chronic kidney disease, stage 3-4 History of diabetes mellitus Hypertension Hyperlipidemia Plan: This is a pleasant 8 years old female who presents with GI bleed. Chest chronic kidney disease stage IV. Call nephrology consult. Gastroenterologists over the evaluated the patient. Continue with Protonix. Labs and medication were r eviewed.. Continue same treatment. Continue with symptomatic treatment. Resume home medication. Monitor lytes and vitals. DVT and GI prophylaxis. Further recommendations of the clinical course of the patient DVT prophylaxis: No heparin in view of GI bleed GI Prophylaxis: Ppi Prognosis is guarded
--- NOTE | 2019-01-12 15:33 | XR ---
EXAMINATION TYPE: XR chest 2V DATE OF EXAM: 01/12/2019 COMPARISON: Prior chest x-ray 10/02/2018 and PET/CT 12/19/2018, chest CT 12/04/2018 HISTORY: Shortness of breath TECHNIQUE: Frontal and lateral views of the chest are obtained. FINDINGS: Right upper lobe mass is superimposed over the anterior first rib. Prominent lung volumes compatible with underlying emphysema. There are interstitial changes within the lungs. The heart is e nlarged. There are overlying cardiac leads. No evident pneumothorax or pleural effusion. Multiple wed ge compression deformities are noted on the lateral view MR present on prior CT, lower thoracic wedge compression deformity has occurred in the interval from prior chest x-ray however. There is increase d AP diameter of the chest. There are dense vascular calcifications present. There are coronary arter y calcifications present. IMPRESSION: No acute cardiopulmonary process. Osteoporotic compression deformities. Right upper lobe mass. Emphysema.
[2019-01-12] MEDS: MONTELUKAST 10 MG TAB PO SCH (16:17)
[2019-01-12 16:53] LABS: Glucose,Whole Blood 159 mg/dL (75-99)
[2019-01-12] MEDS: INSULIN DETEMIR (LEVEMIR) 100 UNIT/ML SYR SQ SCH (17:09)
[2019-01-12] MEDS: SENNOSIDES 8.6 MG TAB PO SCH (20:15)
[2019-01-12] MEDS: ATORVASTATIN 40 MG TAB PO SCH (20:15)
[2019-01-12] MEDS: amLODIPine 5 MG TAB PO SCH (20:15)
[2019-01-12 20:32] LABS: Glucose,Whole Blood 241 mg/dL (75-99)
[2019-01-12] MEDS ORDERED: RIVAROXABAN 15 MG TAB PO STA (21:12)
[2019-01-12] MEDS: OXAZEPAM 15 MG PO SCH (22:44)
[2019-01-12] MEDS: HYDROcodone/APAP 5-325MG 1 EACH TAB PO PRN (22:44)
[2019-01-13 06:14] LABS: Glucose,Whole Blood 98 mg/dL (75-99)
[2019-01-13] MEDS: INSULIN ASPART (NovoLOG) 100 UNIT/ML VIAL SQ SCH ×2 (06:33→11:50)
[2019-01-13 06:55] LABS: Calcium 9.1 mg/dL (8.4-10.2); Potassium 3.5 mmol/L (3.5-5.1)
[2019-01-13 06:58] LABS: Basophils # (A) 0.1 k/uL (0-0.2); Basophils % (A) 1 %; Eosinophils # (A) 0.6 k/uL (0-0.7); Eosinophils % (A) 9 %; HCT 27.1 % (34.0-46.0); HGB 8.2 gm/dL (11.4-16.0); Hypochromasia Marked; Lymphocytes # (A) 2.6 k/uL (1.0-4.8); Lymphocytes % (A) 39 %; MCH 24.9 pg (25.0-35.0); MCHC 30.2 g/dL (31.0-37.0); MCV 82.3 fL (80.0-100.0); Mean Platelet Volume 7.1; Monocytes # (A) 0.5 k/uL (0-1.0); Monocytes % (A) 7 %; Neutrophils # (A) 2.7 k/uL (1.3-7.7); Neutrophils % (A) 40 %; Platelet Count 449 k/uL (150-450); Poikilocytosis Moderate; RBC 3.29 m/uL (3.80-5.40); WBC 6.8 k/uL (3.8-10.6)
[2019-01-13] MEDS: SYMBICORT 80-4.5 MCG INHALER INHALATION SCH (08:08)
[2019-01-13] MEDS ORDERED: PANTOPRAZOLE 40 MG TABLET PO SCH (09:00)
[2019-01-13] MEDS: FUROSEMIDE 20 MG TAB PO SCH (09:03)
[2019-01-13] MEDS: CHOLECALCIFEROL 1,000 UNIT TAB PO SCH (09:03)
[2019-01-13] MEDS: ISOSORBIDE MONONITRATE ER 30 MG TAB.ER.24H PO SCH (09:03)
[2019-01-13] MEDS: SODIUM FERRIC GLUCONAT-SUCROSE 125 MG in SODIUM CHLORIDE 0.9% 100 ML IVPB SCH (09:04)
[2019-01-13] MEDS: MULTIVITAMINS, THERA 1 EACH TAB PO SCH (09:04)
[2019-01-13] MEDS: METOPROLOL TARTRATE 50 MG TAB PO SCH (09:05)
[2019-01-13] MEDS ORDERED: POTASSIUM CHLORIDE ER 20 MEQ TAB.ER PO STA (09:15)
--- NOTE | 2019-01-13 09:16 | P.PN ---
Subjective Patient is seen in follow-up for acute kidney injury on chronic kidney disease. Patient has chronic kidney disease stage III secondary to nephrosclerosis with baseline creatinine in the range of 1.4-1.8. GFR is at baseline. No active bleeding. Hemoglobin stable. Denies chest pain or shortness of breath. Urine output is good. Wants to go home. Vital signs are stable. General: The patient appeared well nourished and normally developed. HEENT: Head exam is unremarkable. Neck is without jugular venous distension. LUNGS: Lungs are clear to auscultation and percussion. Breath sounds decreased. HEART: Rate and Rhythm are regular. First and second heart sounds normal. No murmurs, rubs or gallops. ABDOMEN: Abdominal exam reveals normal bowel sounds. Non-tender and non- distended. No evidence of peritonitis. EXTREMITITES: No clubbing, cyanosis, or edema. Objective - Vital Signs Vital signs: Vital Signs Temp 97.5 F L 01/13/19 04:00 Pulse 79 01/13/19 04:00 Resp 15 01/13/19 04:00 BP 109/54 01/13/19 04:00 Pulse Ox 94 L 01/13/19 04:00 Intake & Output 01/12/19 01/13/19 01/13/19 18:59 06:59 18:59 Intake Total 960 1110 360 Output Total 300 Balance 660 1110 360 Weight 49.7 kg Intake: IV 30 Invasive Line 2 30 Oral 960 1080 360 Output: Urine 300 Other: Voiding Method Toilet Toilet Bedside Commode Bedside Commode # Voids 1 2 - Labs CBC & Chem 7: 01/13/19 06:11 01/13/19 06:11 Labs: Abnormal Lab Results - Last 24 Hours (Table) 01/12/19 01/12/19 01/12/19 Range/Units 11:37 16:52 20:31 RBC (3.80-5.40) m/uL Hgb (11.4-16.0) gm/dL Hct (34.0-46.0) % MCH (25.0-35.0) pg MCHC (31.0-37.0) g/dL Chloride (98-107) mmol/L BUN (7-17) mg/dL Creatinine (0.52-1.04) mg/dL POC Glucose (mg/dL) 163 H 159 H 241 H (75-99) mg/dL 01/13/19 01/13/19 Range/Units 06:11 06:11 RBC 3.29 L (3.80-5.40) m/uL Hgb 8.2 L (11.4-16.0) gm/dL Hct 27.1 L (34.0-46.0) % MCH 24.9 L (25.0-35.0) pg MCHC 30.2 L (31.0-37.0) g/dL Chloride 110 H (98-107) mmol/L BUN 23 H (7-17) mg/dL Creatinine 1.74 H (0.52-1.04) mg/dL POC Glucose (mg/dL) (75-99) mg/dL Assessment and Plan Plan: Assessment: 1. Acute kidney injury mostly prerenal secondary to acute anemia. Creatinine 1.87 on admission and is 1.74 today. 2. Chronic kidney disease stage III secondary to nephrosclerosis with baseline creatinine in the range of 1.4-1.8. 3. Acute blood loss anemia secondary to GI bleed. Status post blood transfusion. GI following. Hemoglobin improved. No active bleeding noted. Severe iron deficiency noted. Maintained on Aranesp. 4. Dyspnea secondary to symptomatically anemia. Improved. 5. Diabetes mellitus. 6. Hypertension with chronic kidney disease. Controlled. 7. Systolic CHF with ejection fraction of 45-50% with moderate to severe aortic stenosis. Moderate mitral regurgitation. 8. Hypokalemia secondary to diuresis. Magnesium normal. Plan: Maintain Lasix 20 mg daily. Encourage oral intake. IV iron 3 doses. Second dose today. Replace potassium. 40 mEq today. Avoid nephrotoxins. Continue to monitor renal function and urine output.
[2019-01-13 10:30] VITALS: RESP 16
--- NOTE | 2019-01-13 11:24 | P.PN ---
Subjective Progress Note Date: 01/13/19 Principal diagnosis: Blood per rectum anemia acute blood loss Denies rectal bleeding. Afebrile. Tolerating diet. No complaints. Hemoglobin 8.2. Objective - Vital Signs Vital signs: Vital Signs Temp 97.7 F 01/13/19 08:00 Pulse 83 01/13/19 08:00 Resp 16 01/13/19 08:00 BP 123/63 01/13/19 08:00 Pulse Ox 98 01/13/19 08:00 Intake & Output 01/12/19 01/13/19 01/13/19 18:59 06:59 18:59 Intake Total 960 1110 370 Output Total 300 Balance 660 1110 370 Weight 49.7 kg Intake: IV 30 10 Invasive Line 2 30 10 Oral 960 1080 360 Output: Urine 300 Other: Voiding Method Toilet Toilet Bedside Commode Bedside Commode # Voids 1 2 - Exam On physical examination, patient appears comfortable in no apparent distress. HEAD: Normocephalic, atraumatic. EYES: No scleral icterus. No conjunctival injection. MOUTH: No lesions, tongue midline. NECK: Trachea midline, no gross abnormalities. CHEST: Decreased air entry in all lung scruggs. ABDOMEN: Soft. Bowel sounds are positive. No organomegaly. No guarding or rigidity. EXTREMITIES: No pedal edema. SKIN: No rashes, no jaundice. NEUROLOGIC: Alert and oriented. No focal deficits. - Labs CBC & Chem 7: 01/13/19 06:11 01/13/19 06:11 Labs: Abnormal Lab Results - Last 24 Hours (Table) 01/12/19 01/12/19 01/12/19 Range/Units 11:37 16:52 20:31 RBC (3.80-5.40) m/uL Hgb (11.4-16.0) gm/dL Hct (34.0-46.0) % MCH (25.0-35.0) pg MCHC (31.0-37.0) g/dL Chloride (98-107) mmol/L BUN (7-17) mg/dL Creatinine (0.52-1.04) mg/dL POC Glucose (mg/dL) 163 H 159 H 241 H (75-99) mg/dL 01/13/19 01/13/19 Range/Units 06:11 06:11 RBC 3.29 L (3.80-5.40) m/uL Hgb 8.2 L (11.4-16.0) gm/dL Hct 27.1 L (34.0-46.0) % MCH 24.9 L (25.0-35.0) pg MCHC 30.2 L (31.0-37.0) g/dL Chloride 110 H (98-107) mmol/L BUN 23 H (7-17) mg/dL Creatinine 1.74 H (0.52-1.04) mg/dL POC Glucose (mg/dL) (75-99) mg/dL Assessment and Plan (1) GI bleed Narrative/Plan: 88-year-old female presenting with complaints of bright red blood per rectum. Unknown etiology with differential including perianal/hemorrhoidal pathology, diverticular bleed, AVM, or other etiology. Patient has had no further bleeding since admission. Current Visit: Yes Status: Acute Code(s): K92.2 - GASTROINTESTINAL HEMORRHAGE, UNSPECIFIED SNOMED Code(s): 94545851 (2) Anemia Narrative/Plan: Anemia of acute blood loss. The patient presenting with complaints of bright red blood per rectum and subsequent fall in hemoglobin likely secondary to lower GI bleed. Hemoglobin has now remained stable at 8.4. Current Visit: Yes Status: Acute Code(s): D64.9 - ANEMIA, UNSPECIFIED SNOMED Code(s): 650532385 Plan: Supportive care Diet as tolerated Continue to monitor for signs and symptoms of GI bleeding Continue to monitor hemoglobin and transfuse as needed Extensive conversation with the patient yesterday with skate shop attendant regarding the possibility of colonoscopic evaluation, given the patient's age and comorbidities she would be high risk for anesthesia and hemoglobin has stabilized as well as resolution of symptoms. At this time the patient has indicated that she would like to continue with conservative measures. If further signs or symptoms of GI bleeding occur or fall in hemoglobin we'll reevaluate for possible endoscopy. Thank you for allowing us to participate in care of this patient we will follow on an as-needed basis Assessment and plan a care discussed with Dr. Stone
[2019-01-13 11:47] LABS: Glucose,Whole Blood 160 mg/dL (75-99)
[2019-01-13] MEDS: MONTELUKAST 10 MG TAB PO SCH (14:00)
[2019-01-13] MEDS: INSULIN DETEMIR (LEVEMIR) 100 UNIT/ML SYR SQ SCH (14:00)
[2019-01-13 15:03] VITALS: BP 127/79; PULSE 72; TEMP 97.5
== END 2019-01-13 16:05 | disposition home or self-care (01) | DRG 378 ==
LOC: EC 11:21 → 3SCARD 13:06
PROVIDERS: ADMIT Family Medicine; ATTEND Family Medicine
PROC: 30233N1 Transfusion of Nonautologous Red Blood Cells into Peripheral Vein, Percutaneous Approach (ICD-10-PCS; principal; 2019-01-08)
DX: K62.5 Hemorrhage of anus and rectum (principal); N17.9 Acute kidney failure, unspecified; D62 Acute posthemorrhagic anemia; N18.4 Chronic kidney disease, stage 4 (severe); I13.0 Hypertensive heart and chronic kidney disease with heart failure and stage 1 through stage 4 chronic kidney disease, or unspecified chronic kidney disease; I50.22 Chronic systolic (congestive) heart failure; I10 Essential (primary) hypertension; E78.5 Hyperlipidemia, unspecified; E11.22 Type 2 diabetes mellitus with diabetic chronic kidney disease; Z96.1 Presence of intraocular lens; F32.9 Major depressive disorder, single episode, unspecified; H91.90 Unspecified hearing loss, unspecified ear; E61.1 Iron deficiency; I25.10 Atherosclerotic heart disease of native coronary artery without angina pectoris; J44.9 Chronic obstructive pulmonary disease, unspecified; I08.0 Rheumatic disorders of both mitral and aortic valves; K21.9 Gastro-esophageal reflux disease without esophagitis; I44.7 Left bundle-branch block, unspecified; K44.9 Diaphragmatic hernia without obstruction or gangrene; R13.10 Dysphagia, unspecified; M13.0 Polyarthritis, unspecified; M54.9 Dorsalgia, unspecified; G89.29 Other chronic pain; E87.6 Hypokalemia; T50.2X5A Adverse effect of carbonic-anhydrase inhibitors, benzothiadiazides and other diuretics, initial encounter; Z87.891 Personal history of nicotine dependence; Z86.73 Personal history of transient ischemic attack (TIA), and cerebral infarction without residual deficits; Z79.899 Other long term (current) drug therapy; Z79.4 Long term (current) use of insulin; Z79.01 Long term (current) use of anticoagulants; Z90.49 Acquired absence of other specified parts of digestive tract; Z98.42 Cataract extraction status, left eye; Z98.41 Cataract extraction status, right eye; Z95.5 Presence of coronary angioplasty implant and graft; Z82.49 Family history of ischemic heart disease and other diseases of the circulatory system; Z87.01 Personal history of pneumonia (recurrent); I25.2 Old myocardial infarction; Z87.440 Personal history of urinary (tract) infections
CPT/HCPCS: 36415; 71046; 80048; 80053; 81001; 82728; 83540; 83550; 83735; 84484; 85025; 85610; 85730; 86850; 86900; 86901; 86920; 87502; 93005; 93306; 94640; 96361; 96374; 99285

== ENCOUNTER 2019-01-15 11:11 | Emergency (ER) | payer MEDICARE ==
[2019-01-15 11:21] VITALS: TEMP 96.3
[2019-01-15] MEDS ORDERED: SODIUM CHLORIDE 0.9% 1,000 ML IV STA (11:43)
[2019-01-15 12:16] LABS: Anisocytosis Slight; Basophils % (A) 0 %; Eosinophils # (A) 0.6 k/uL (0-0.7); Eosinophils % (A) 7 %; HCT 25.1 % (34.0-46.0); HGB 7.5 gm/dL (11.4-16.0); Hypochromasia Marked; Lymphocytes # (A) 2.1 k/uL (1.0-4.8); Lymphocytes % (A) 24 %; MCH 25.4 pg (25.0-35.0); MCV 84.6 fL (80.0-100.0); Mean Platelet Volume 6.7; Monocytes # (A) 0.5 k/uL (0-1.0); Monocytes % (A) 6 %; Neutrophils # (A) 5.4 k/uL (1.3-7.7); Neutrophils % (A) 61 %; Platelet Count 400 k/uL (150-450); Poikilocytosis Slight; RBC 2.97 m/uL (3.80-5.40); RDW 16.5 % (11.5-15.5)
[2019-01-15 12:37] LABS: Albumin 3.3 g/dL (3.5-5.0); Calcium 9.1 mg/dL (8.4-10.2); Magnesium 1.8 mg/dL (1.6-2.3); Potassium 4.7 mmol/L (3.5-5.1); Total Bilirubin 0.3 mg/dL (0.2-1.3); Total Protein 6.2 g/dL (6.3-8.2)
[2019-01-15 12:44] VITALS: RESP 16
--- NOTE | 2019-01-15 13:21 | ED ---
Nausea/Vomiting/Diarrhea HPI - General Chief complaint: Nausea/Vomiting/Diarrhea Stated complaint: diarrhea Time Seen by Provider: 01/15/19 11:43 Source: patient, RN notes reviewed Mode of arrival: ambulatory Limitations: no limitations - History of Present Illness Initial comments: 88-year-old female presents emergency Department chief complaint diarrhea. Patient's been having ongoing diarrhea. Patient was just discharged from the hospital for anemia, GI bleed. Patient states that she's not had any recurrent black tarry stools like before. She has taken iron. Patient states that she had uncontrolled diarrhea today. Patient did have some nausea though that result. Denies any chest pain or shortness breath. Patient only presented because of the increasing diarrhea. Patient wasn't clear liquid diet while in the hospital that she has progressed normal intake. - Related Data Home Medications Medication Instructions Recorded Confirmed HYDROcodone/APAP 5-325MG [[place] 1 tab PO HS PRN 02/02/14 01/08/19 5-325] Omeprazole [PriLOSEC] 20 mg PO AC-BRKFST 02/02/14 01/08/19 amLODIPine BESYLATE [Norvasc] 5 mg PO HS 02/02/14 01/08/19 Ipratropium-Albuterol Nebulize 3 ml INHALATION RT-TID PRN 08/20/16 01/08/19 [Duoneb 0.5 mg-3 mg/3 ml Soln] Montelukast [Singulair] 10 mg PO DAILY@1500 05/17/17 01/08/19 Fluticasone/Salmeterol [Advair 1 puff INHALATION RT-BID 05/18/17 01/08/19 250-50 Diskus] Metoprolol Tartrate [Lopressor] 100 mg PO BID 07/18/17 01/08/19 Sennosides [Senna] 8.6 mg PO HS 07/18/17 01/08/19 Rivaroxaban [Xarelto] 15 mg PO HS@199912/11/17 01/08/19 Acetaminophen [Tylenol] 1,000 mg PO Q4H PRN 05/14/18 01/08/19 Insulin Detemir [Levemir Flextouch] 8 unit SQ DAILY@1430 05/14/18 01/08/19 Multivitamin [Multivitamins Adult 1 tab PO DAILY 05/14/18 01/08/19 Gummies] metFORMIN HCL [Glucophage] 500 mg PO BID 06/09/18 01/08/19 Cholecalciferol (Vitamin D3) 2,000 unit PO DAILY 09/28/18 01/08/19 [Vitamin D3] Aspirin EC [Ecotrin Low Dose] 81 mg PO Q48H 10/12/18 01/08/19 Furosemide [Lasix] 20 mg PO DAILY@0900 01/08/19 01/08/19 Furosemide [Lasix] 20 mg PO DAILY@1400 PRN 01/08/19 01/08/19 Previous Rx's Medication Instructions Recorded Atorvastatin [Lipitor] 40 mg PO HS #30 tab 07/23/17 Nitroglycerin Sl Tabs [Nitrostat] 0.4 mg SUBLINGUAL Q5M PRN #25 tab 07/23/17 Isosorbide Mononitrate ER [Imdur] 30 mg PO DAILY #30 tab.er.24h 09/23/17 Oxazepam [Serax] 15 mg PO BID #60 capsule 10/05/18 Ferrous Sulfate [Feosol] 325 mg PO BID #60 tab 01/13/19 Pantoprazole [Protonix] 40 mg PO BID #60 tablet. 01/13/19 Allergies Allergy/AdvReac Type Severity Reaction Status Date / Time amoxicillin trihydrate Allergy Unknown Verified 01/15/19 11:21 [From Augmentin] clindamycin HCl Allergy Unknown Verified 01/15/19 11:21 [From Cleocin] clindamycin palmitate HCl Allergy Unknown Verified 01/15/19 11:21 [From Cleocin] clindamycin phosphate Allergy Unknown Verified 01/15/19 11:21 [From Cleocin] codeine Allergy Unknown Verified 01/15/19 11:21 lorazepam [From Ativan] Allergy Confusion Verified 01/15/19 11:21 nitrofurantoin Allergy Unknown Verified 01/15/19 11:21 [From Macrobid] nitrofurantoin Allergy Unknown Verified 01/15/19 11:21 macrocrystalline [From Macrobid] Penicillins Allergy Unknown Verified 01/15/19 11:21 potassium clavulanate Allergy Unknown Verified 01/15/19 11:21 [From Augmentin] prednisone Allergy Unknown Verified 01/15/19 11:21 quinine Allergy Unknown Verified 01/15/19 11:21 Sulfa (Sulfonamide Allergy Unknown Verified 01/15/19 11:21 Antibiotics) sulfamethoxazole Allergy Unknown Verified 01/15/19 11:21 [From Bactrim] trimethoprim [From Bactrim] Allergy Unknown Verified 01/15/19 11:21 Review of Systems ROS Statement: Those systems with pertinent positive or pertinent negative responses have been documented in the HPI. ROS Other: All systems not noted in ROS Statement are negative. Past Medical History Past Medical History: Coronary Artery Disease (CAD), Chest Pain / Angina, Heart Failure, COPD, CVA/TIA, Diabetes Mellitus, GERD/Reflux, Hearing Disorder / Deafness, Hyperlipidemia, Hypertension, Myocardial Infarction ([place]), Osteoarthritis (OA), Pneumonia, Renal Disease, Skin Disorder Additional Past Medical History / Comment(s): IDDM type II, frequent pneumonia, aspiration pneumonia with sepsis, renal insufficiency, recurrent UTIs, TIA x 3, difficulty swallowing-crushes meds and puts them in yogurt-past EGD/dilations, anemia, eczema, "lazy bowel" but pt states anymore she goes from diarrhea to constipation easily, generalized arthritis, chronic baci pain, hiatal hernia Last Myocardial Infarction Date:: 1998, 09/21/17 History of Any Multi-Drug Resistant Organisms: VRE Date of last positivie culture/infection: 10/07/17 MDRO Source:: VRE URINE Past Surgical History: Cholecystectomy, Heart Catheterization With Stent Additional Past Surgical History / Comment(s): cataracts w/lens implants, ectopic with one ovary/tube removed, heart caths :04/30/96 stent to rca, 03/18/2000 stent to mid rca, 07/22/17 stent to lad Past Anesthesia/Blood Transfusion Reactions: Previous Problems w/ Anesthesia Additional Past Anesthesia/Blood Transfusion Reaction / Comment(s): difficulty breathing after anesthesia Date of Last Stent Placement:: 06/2017 Past Psychological History: Depression Smoking Status: Former smoker Past Alcohol Use History: None Reported Past Drug Use History: None Reported - Past Family History Father History Unknown: Yes Family Medical History: Myocardial Infarction ([place]) Additional Family Medical History / Comment(s): Father had a [place] at the age of 50 yrs. He lived to be 75yrs old. Mother History Unknown: Yes Family Medical History: Myocardial Infarction ([place]) Additional Family Medical History / Comment(s): Mother of a [place] at about age 80yrs. General Exam Limitations: no limitations General appearance: alert, in no apparent distress Head exam: Present: atraumatic, normocephalic, normal inspection Eye exam: Present: normal appearance, PERRL, EOMI. Absent: scleral icterus, conjunctival injection, periorbital swelling ENT exam: Present: normal exam, normal oropharynx, mucous membranes moist Neck exam: Present: normal inspection, full ROM. Absent: tenderness, meningismus, lymphadenopathy Respiratory exam: Present: normal lung sounds bilaterally. Absent: respiratory distress, wheezes, rales, rhonchi, stridor Cardiovascular Exam: Present: regular rate, normal rhythm, normal heart sounds. Absent: systolic murmur, diastolic murmur, rubs, gallop, clicks GI/Abdominal exam: Present: soft, normal bowel sounds. Absent: distended, tenderness, guarding, rebound, rigid Neurological exam: Present: alert, oriented X3, CN II-XII intact Skin exam: Present: warm, dry, intact, normal color. Absent: rash Course Vital Signs 01/15/19 01/15/19 01/15/19 11:19 12:43 14:47 Temperature 96.3 F L Pulse Rate 101 H 71 74 Respiratory 22 16 16 Rate Blood Pressure 117/54 124/63 115/75 O2 Sat by Pulse 97 100 96 Oximetry Medical Decision Making - Medical Decision Making 88-year-old female presents emergency department for diarrhea. Patient had no recurrent symptoms in the ER. Patient's hemoglobin did trend down mildly to 7.5. Patient has no clinical evidence of leaving at this time asymptomatic. Case discussed with primary physician recommended patient follow-up for recheck hemoglobin. Patient agrees this plan and will follow-up Dr. Thayer and return for any worsening symptoms. - Lab Data Result diagrams: 01/15/19 11:56 01/15/19 11:56 Lab Results 01/15/19 01/15/19 01/15/19 Range/Units 11:56 11:56 13:15 WBC 9.0 (3.8-10.6) k/uL RBC 2.97 L (3.80-5.40) m/uL Hgb 7.5 L (11.4-16.0) gm/dL Hct 25.1 L (34.0-46.0) % MCV 84.6 (80.0-100.0) fL MCH 25.4 (25.0-35.0) pg MCHC 30.0 L (31.0-37.0) g/dL RDW 16.5 H (11.5-15.5) % Plt Count 400 (150-450) k/uL Neutrophils % 61 % Lymphocytes % 24 % Monocytes % 6 % Eosinophils % 7 % Basophils % 0 % Neutrophils # 5.4 (1.3-7.7) k/uL Lymphocytes # 2.1 (1.0-4.8) k/uL Monocytes # 0.5 (0-1.0) k/uL Eosinophils # 0.6 (0-0.7) k/uL Basophils # 0.0 (0-0.2) k/uL Hypochromasia Marked Poikilocytosis Slight Anisocytosis Slight Sodium 141 (137-145) mmol/L Potassium 4.7 (3.5-5.1) mmol/L Chloride 111 H (98-107) mmol/L Carbon Dioxide 21 L (22-30) mmol/L Anion Gap 9 mmol/L BUN 20 H (7-17) mg/dL Creatinine 1.79 H (0.52-1.04) mg/dL Est GFR (CKD-EPI)AfAm 29 (>60 ml/min/1.73 sqM) Est GFR (CKD-EPI)NonAf 25 (>60 ml/min/1.73 sqM) Glucose 130 H (74-99) mg/dL Calcium 9.1 (8.4-10.2) mg/dL Magnesium 1.8 (1.6-2.3) mg/dL Total Bilirubin 0.3 (0.2-1.3) mg/dL AST 36 (14-36) U/L ALT 24 (9-52) U/L Alkaline Phosphatase 74 (38-126) U/L Total Protein 6.2 L (6.3-8.2) g/dL Albumin 3.3 L (3.5-5.0) g/dL Amylase 85 (30-110) U/L Lipase 546 H (23-300) U/L Urine Color Yellow Urine Appearance Clear (Clear) Urine pH 5.5 (5.0-8.0) Ur Specific [place] 1.011 (1.001-1.035) Urine Protein Trace H (Negative) Urine Glucose (UA) Negative (Negative) Urine Ketones Negative (Negative) Urine Blood Negative (Negative) Urine Nitrite Negative (Negative) Urine Bilirubin Negative (Negative) Urine Urobilinogen <2.0 (<2.0) mg/dL Ur Leukocyte Esterase Trace H (Negative) Urine WBC 1 (0-5) /hpf Ur Squamous Epith Cells 3 (0-4) /hpf Hyaline Casts 1 (0-2) /lpf Urine Mucus Rare H (None) /hpf Disposition Clinical Impression: Anemia, Diarrhea Disposition: HOME SELF-CARE Condition: Stable Instructions (If sedation given, give patient instructions): Acute Diarrhea (ED) Additional Instructions: Please return to the Emergency Department if symptoms worsen or any other concerns. Is patient prescribed a controlled substance at d/c from ED?: No Referrals: Georgi Thayer MD [Primary Care Provider] - 1-2 days Time of Disposition: 15:35
[2019-01-15 13:39] LABS: Appearance,Urine Clear (Clear); Bilirubin,Urine Negative (Negative); Blood,Urine Negative (Negative); Color,Urine Yellow; Glucose,Urine (UA) Negative (Negative); Hyaline Casts,Urine 1 /lpf (0-2); Ketones,Urine Negative (Negative); Leukocyte Esterase,Urine Trace (Negative); Mucus,Urine Rare /hpf; Nitrite,Urine Negative (Negative); PH, Urine 5.5 (5.0-8.0); Protein,Urine Trace (Negative); Specific Gravity,Urine 1.011 (1.001-1.035); Squamous Epithelial Cell,Urine 3 /hpf (0-4); Urobilinogen,Urine <2.0 mg/dL (<2.0)
[2019-01-15 15:52] VITALS: BP 125/64; PULSE 70
== END 2019-01-15 16:35 | disposition home or self-care (01) ==
LOC: EC 11:11
DX: D64.9 Anemia, unspecified (principal); R19.7 Diarrhea, unspecified; R11.0 Nausea; I25.119 Atherosclerotic heart disease of native coronary artery with unspecified angina pectoris; I11.0 Hypertensive heart disease with heart failure; I50.9 Heart failure, unspecified; E11.9 Type 2 diabetes mellitus without complications; K21.9 Gastro-esophageal reflux disease without esophagitis; H91.90 Unspecified hearing loss, unspecified ear; E78.5 Hyperlipidemia, unspecified; I25.2 Old myocardial infarction; M19.90 Unspecified osteoarthritis, unspecified site; Z86.73 Personal history of transient ischemic attack (TIA), and cerebral infarction without residual deficits; F32.9 Major depressive disorder, single episode, unspecified; Z87.891 Personal history of nicotine dependence; Z79.82 Long term (current) use of aspirin; Z79.4 Long term (current) use of insulin; Z79.01 Long term (current) use of anticoagulants; Z79.51 Long term (current) use of inhaled steroids; Z79.899 Other long term (current) drug therapy; Z88.0 Allergy status to penicillin; Z88.1 Allergy status to other antibiotic agents; Z88.2 Allergy status to sulfonamides; Z88.8 Allergy status to other drugs, medicaments and biological substances; Z88.5 Allergy status to narcotic agent
CPT/HCPCS: 36415; 80053; 81001; 82150; 83690; 83735; 85025; 96360; 99284

== ENCOUNTER 2019-01-30 18:42 | Emergency (ER) | payer MEDICARE ==
--- NOTE | 2019-01-30 20:21 | CT ---
EXAMINATION TYPE: CT brain homer danielson DATE OF EXAM: 01/30/2019 COMPARISON: None HISTORY: 88-year-old female with pain after Fall. CT DLP: 1267.2 mGycm Automated exposure control for dose reduction was used. Technique: Examination of the head was done in axial plane without intravenous contrast. Coronal and sagittal reconstructions performed. CT of the cervical spine was obtained in axial plane without intravenous injection of contrast mater ial. Coronal and sagittal reformatted images were obtained from the axial views for evaluation of f ractures, spinal alignment and canal. FINDINGS: Head: There is no evidence of acute intracranial hemorrhage, acute ischemic changes, mass, mass-effect, or extra-axial fluid collection. There is no effacement of cerebral sulci or basal subarachnoid cister ns. There is no hydrocephalus. There is no midline shift. Frazier-white matter distinction is preserv ed. Moderate bifrontal atrophy. Atherosclerotic calcifications in the carotid siphons. Paranasal sinuses and mastoid air cells well pneumatized. Cervical spine: No craniocervical junction abnormality, predental space widening, or prevertebral soft tissue swellin g. Degenerative changes at the C1 dens articulation. Moderate disc/endplate degenerative change from C5 through C7 levels with disc osteophyte complex for mation causing at least mild narrowing of the spinal canal at these levels. Additional facet and uncovertebral joint arthropathy is present, particularly on the left in the uppe r to mid cervical spine. No acute fracture cervical spine. Alignment is maintained. There is variable neuroforaminal stenosis throughout, moderate to severe on the left at C3-C4, modera te on the right at C5-C6. Visualized upper lung show centrilobular emphysema in the irregular 1.5 cm opacity at the right upper lobe. Sagittal and coronal reformatted images confirm above findings. COMBINED IMPRESSION: 1. Moderate bifrontal atrophy without acute intracranial abnormality seen. 2. Moderate spondylotic changes cervical spine. No acute fracture or malalignment. 3. COPD with 1.5 cm irregular opacity at the right upper lobe. Early or low-grade lung cancer not exc luded at this time. Ongoing appropriate CT follow up recommended.
--- NOTE | 2019-01-30 20:29 | XR ---
EXAMINATION TYPE: XR chest 2V DATE OF EXAM: 01/30/2019 COMPARISON: 01/12/2019 HISTORY: 88-year-old female with cough and pain TECHNIQUE: AP and lateral views FINDINGS: Heart mildly enlarged. Diffuse interstitial prominence appears slightly more pronounced from prior. S trandy bibasilar densities. Redemonstrated is focal severe compression deformities in the lower third thoracic spine. Accentuated mid thoracic kyphosis. Known right upper lobe mass. IMPRESSION: 1. Mild cardiomegaly. 2. Diffuse interstitial prominence appears slightly increased. Correlate for possible mild pulmonary vascular congestion, bronchitis, or atypical pneumonias. 3. Known right upper lobe mass.
--- NOTE | 2019-01-30 21:23 | ED ---
Fall HPI - General Source: patient, EMS Mode of arrival: EMS <Salvatore Terry - Last Filed: 01/30/19 21:12> <Anna Almeida - Last Filed: 02/01/19 06:46> - General Chief Complaint: Fall Stated Complaint: fall Time Seen by Provider: 01/30/19 18:52 - History of Present Illness Initial Comments: Patient is a 88-year-old female presenting to emergency Department after fall. Patient states that she was walking to the door was someone rang the doorbell when she tripped and fell. Patient denied loss of consciousness. Patient reports falling forward and hitting a chair on her chest before falling to the floor. Patient states that she was able to reach the phone and call her daughter for help. Patient states that she has pain around her nose, bilateral shoulders, chest and bilateral lower legs. Patient states that she feels achy throughout the rest of the body. Patient denies headache, blurry vision, lightheadedness, dizziness, nausea, vomiting, shortness of breath and chest tightness or cough. (Salvatore Terry) - Related Data Home Medications Medication Instructions Recorded Confirmed HYDROcodone/APAP 5-325MG [[place] 1 tab PO HS PRN 02/02/14 01/30/19 5-325] amLODIPine BESYLATE [Norvasc] 5 mg PO HS 02/02/14 01/30/19 Ipratropium-Albuterol Nebulize 3 ml INHALATION RT-TID PRN 08/20/16 01/30/19 [Duoneb 0.5 mg-3 mg/3 ml Soln] Montelukast [Singulair] 10 mg PO DAILY@1500 05/17/17 01/30/19 Fluticasone/Salmeterol [Advair 1 puff INHALATION RT-BID 05/18/17 01/30/19 250-50 Diskus] Metoprolol Tartrate [Lopressor] 100 mg PO BID 07/18/17 01/30/19 Sennosides [Senna] 8.6 mg PO HS 07/18/17 01/30/19 Rivaroxaban [Xarelto] 15 mg PO HS@199912/11/17 01/30/19 Acetaminophen [Tylenol] 1,000 mg PO Q4H PRN 05/14/18 01/30/19 Insulin Detemir [Levemir Flextouch] 8 unit SQ DAILY@1430 05/14/18 01/30/19 Multivitamin [Multivitamins Adult 1 tab PO DAILY 05/14/18 01/30/19 Gummies] metFORMIN HCL [Glucophage] 500 mg PO BID 06/09/18 01/30/19 Cholecalciferol (Vitamin D3) 2,000 unit PO DAILY 09/28/18 01/30/19 [Vitamin D3] Aspirin EC [Ecotrin Low Dose] 81 mg PO Q48H 10/12/18 01/30/19 Furosemide [Lasix] 20 mg PO DAILY@0900 01/08/19 01/30/19 Furosemide [Lasix] 20 mg PO DAILY@1400 PRN 01/08/19 01/30/19 Previous Rx's Medication Instructions Recorded Atorvastatin [Lipitor] 40 mg PO HS #30 tab 07/23/17 Nitroglycerin Sl Tabs [Nitrostat] 0.4 mg SUBLINGUAL Q5M PRN #25 tab 07/23/17 Isosorbide Mononitrate ER [Imdur] 30 mg PO DAILY #30 tab.er.24h 09/23/17 Oxazepam [Serax] 15 mg PO BID #60 capsule 10/05/18 Ferrous Sulfate [Feosol] 325 mg PO BID #60 tab 01/13/19 Pantoprazole [Protonix] 40 mg PO BID #60 tablet. 01/13/19 Allergies Allergy/AdvReac Type Severity Reaction Status Date / Time amoxicillin trihydrate Allergy Unknown Verified 01/30/19 19:04 [From Augmentin] clindamycin HCl Allergy Unknown Verified 01/30/19 19:04 [From Cleocin] clindamycin palmitate HCl Allergy Unknown Verified 01/30/19 19:04 [From Cleocin] clindamycin phosphate Allergy Unknown Verified 01/30/19 19:04 [From Cleocin] codeine Allergy Unknown Verified 01/30/19 19:04 lorazepam [From Ativan] Allergy Confusion Verified 01/30/19 19:04 nitrofurantoin Allergy Unknown Verified 01/30/19 19:04 [From Macrobid] nitrofurantoin Allergy Unknown Verified 01/30/19 19:04 macrocrystalline [From Macrobid] Penicillins Allergy Unknown Verified 01/30/19 19:04 potassium clavulanate Allergy Unknown Verified 01/30/19 19:04 [From Augmentin] prednisone Allergy Unknown Verified 01/30/19 19:04 quinine Allergy Unknown Verified 01/30/19 19:04 Sulfa (Sulfonamide Allergy Unknown Verified 01/30/19 19:04 Antibiotics) sulfamethoxazole Allergy Unknown Verified 01/30/19 19:04 [From Bactrim] trimethoprim [From Bactrim] Allergy Unknown Verified 01/30/19 19:04 Review of Systems ROS Other: All systems not noted in ROS Statement are negative. <Salvatore Terry - Last Filed: 01/30/19 21:12> ROS Other: All systems not noted in ROS Statement are negative. <Anna Almeida - Last Filed: 02/01/19 06:46> ROS Statement: Those systems with pertinent positive or pertinent negative responses have been documented in the HPI. Past Medical History Past Medical History: Coronary Artery Disease (CAD), Chest Pain / Angina, Heart Failure, COPD, CVA/TIA, Diabetes Mellitus, GERD/Reflux, Hearing Disorder / Deafness, Hyperlipidemia, Hypertension, Myocardial Infarction ([place]), Osteoarthritis ([place]), Pneumonia, Renal Disease, Skin Disorder Additional Past Medical History / Comment(s): IDDM type II, frequent pneumonia, aspiration pneumonia with sepsis, renal insufficiency, recurrent UTIs, TIA x 3, difficulty swallowing-crushes meds and puts them in yogurt-past EGD/dilations, anemia, eczema, "lazy bowel" but pt states anymore she goes from diarrhea to constipation easily, generalized arthritis, chronic baci pain, hiatal hernia Last Myocardial Infarction Date:: 1998, 09/21/17 History of Any Multi-Drug Resistant Organisms: VRE Date of last positivie culture/infection: 10/07/17 MDRO Source:: VRE URINE Past Surgical History: Cholecystectomy, Heart Catheterization With Stent Additional Past Surgical History / Comment(s): cataracts w/lens implants, ectopic with one ovary/tube removed, heart caths :04/30/96 stent to rca, 03/18/2000 stent to mid rca, 07/22/17 stent to lad Past Anesthesia/Blood Transfusion Reactions: Previous Problems w/ Anesthesia Additional Past Anesthesia/Blood Transfusion Reaction / Comment(s): difficulty breathing after anesthesia Date of Last Stent Placement:: 06/2017 Past Psychological History: Depression Smoking Status: Former smoker Past Alcohol Use History: None Reported Past Drug Use History: None Reported - Past Family History Father History Unknown: Yes Family Medical History: Myocardial Infarction ([place]) Additional Family Medical History / Comment(s): Father had a [place] at the age of 50 yrs. He lived to be 75yrs old. Mother History Unknown: Yes Family Medical History: Myocardial Infarction ([place]) Additional Family Medical History / Comment(s): Mother of a [place] at about age 80yrs. <Salvatore Terry - Last Filed: 01/30/19 21:12> General Exam Limitations: no limitations General appearance: alert, in no apparent distress Head exam: Present: normocephalic, other (Contusion and a small abrasion on her nose.) Eye exam: Present: normal appearance, PERRL, EOMI, other (No raccoon eyes and leon sign negative). Absent: scleral icterus, conjunctival injection Pupils: Present: normal accommodation ENT exam: Present: TM's normal bilaterally Neck exam: Present: normal inspection, full ROM. Absent: lymphadenopathy Respiratory exam: Present: normal lung sounds bilaterally. Absent: respiratory distress, wheezes Cardiovascular Exam: Present: regular rate GI/Abdominal exam: Present: distended Extremities exam: Present: full ROM, normal capillary refill, other. Absent: tenderness, pedal edema, calf tenderness (2 Abrasions and left lower leg and one abrasion on right lower leg.) Back exam: Present: normal inspection. Absent: CVA tenderness (R), CVA tenderness (L) Neurological exam: Present: alert, oriented X3 Psychiatric exam: Present: normal affect, normal mood Skin exam: Present: warm, normal color <Salvatore Terry - Last Filed: 01/30/19 21:12> Course Vital Signs 01/30/19 01/30/19 18:46 22:48 Pulse Rate 76 87 Respiratory 16 18 Rate Blood Pressure 136/73 146/82 O2 Sat by Pulse 98 97 Oximetry Medical Decision Making <Salvatore Terry - Last Filed: 01/30/19 21:12> <Anna Almeida - Last Filed: 02/01/19 06:46> - Medical Decision Making Patient is a 8-year-old presenting to the emergency department after fall. CT of the head and C-spine was negative for intracranial bleeds or acute fractures. Chest x-ray was unremarkable. Chest x-ray of bilateral shoulders is negative for acute fracture or dislocation. I removed loose skin from the lower leg abrasions and covered it with gauze and bacitracin. I suspect the rest of her aches and pains to be related due to the contusion from a traumatic fall. Patient will be discharged and advised to follow-up with primary care. Patient advised to return to the emergency department if symptoms worsen. The daughter was present the whole time while discussed the discharge instructions with the patient. Case discussed with physician. (Salvatore Terry) I was available for consultation in the emergency department. The history and physical exam were done by the midlevel provider. I was consulted for this patient's care. I reviewed the case with the midlevel provider and based on their presentation of the patient, I agree with the assessment, medical decision making and plan of care as documented. Chart was dictated using [employer] dictation software. Attempts were made to correct any dictation errors however some typographical errors may persist. (Anna Almeida) Disposition Is patient prescribed a controlled substance at d/c from ED?: No Time of Disposition: 22:21 Decision Time: 22:13 <Salvatore Terry - Last Filed: 01/30/19 21:12> <Anna Almeida - Last Filed: 02/01/19 06:46> Clinical Impression: Fall Disposition: HOME SELF-CARE Condition: Stable Instructions (If sedation given, give patient instructions): Fall Prevention for Older Adults (ED) Additional Instructions: Please take Tylenol or ibuprofen for pain control. Please follow with primary care. Please return to emergency department if symptoms worsen. Referrals: Georgi Thayer MD [Primary Care Provider] - 1-2 days
--- NOTE | 2019-01-30 21:29 | XR ---
EXAMINATION TYPE: XR shoulder complete BILAT DATE OF EXAM: 01/30/2019 COMPARISON: NONE HISTORY: 88 year-old female bilateral shoulder pain TECHNIQUE: 3 views each side FINDINGS: Moderate degenerative joint space narrowing and capsular hypertrophy at the bilateral AC joints. Rachell inal spurring is greater on the right. Some bony irregularity at the right greater tuberosity. Mild degenerative spurring at both glenohumer al joints. No acute fracture, subluxation, or dislocation seen. IMPRESSION: 1. Moderate AC joint OA, right greater than left. 2. Mild bilateral glenohumeral joint OA. 3. No acute osseous abnormality seen.
[2019-01-30 22:49] VITALS: BP 146/82; PULSE 87; RESP 18
== END 2019-01-30 22:55 | disposition home or self-care (01) ==
LOC: EC 18:42
DX: S00.33XA Contusion of nose, initial encounter (principal); S80.812A Abrasion, left lower leg, initial encounter; S80.811A Abrasion, right lower leg, initial encounter; R14.0 Abdominal distension (gaseous); M25.511 Pain in right shoulder; M25.512 Pain in left shoulder; R07.9 Chest pain, unspecified; R52 Pain, unspecified; I25.119 Atherosclerotic heart disease of native coronary artery with unspecified angina pectoris; I11.0 Hypertensive heart disease with heart failure; I50.9 Heart failure, unspecified; J44.9 Chronic obstructive pulmonary disease, unspecified; I25.2 Old myocardial infarction; M19.90 Unspecified osteoarthritis, unspecified site; K59.00 Constipation, unspecified; Z87.891 Personal history of nicotine dependence; Z88.0 Allergy status to penicillin; Z88.1 Allergy status to other antibiotic agents; Z88.2 Allergy status to sulfonamides; Z88.5 Allergy status to narcotic agent; Z88.8 Allergy status to other drugs, medicaments and biological substances; Z79.01 Long term (current) use of anticoagulants; Z79.4 Long term (current) use of insulin; Z79.51 Long term (current) use of inhaled steroids; Z79.82 Long term (current) use of aspirin; Z79.899 Other long term (current) drug therapy; Z86.73 Personal history of transient ischemic attack (TIA), and cerebral infarction without residual deficits; Z87.01 Personal history of pneumonia (recurrent); Z95.5 Presence of coronary angioplasty implant and graft; Z90.49 Acquired absence of other specified parts of digestive tract; W01.190A Fall on same level from slipping, tripping and stumbling with subsequent striking against furniture, initial encounter; Y93.01 Activity, walking, marching and hiking
CPT/HCPCS: 70450; 71046; 72125; 99284

== ENCOUNTER → 2019-02-09 | Outpatient (CLI) | payer MEDICARE ==
[2019-02-09 16:50] LABS: Anisocytosis Slight; Appearance,Urine Clear (Clear); Basophils # (A) 0.1 k/uL (0-0.2); Basophils % (A) 1 %; Bilirubin,Urine Negative (Negative); Blood,Urine Negative (Negative); Color,Urine Light Yellow; Eosinophils # (A) 0.4 k/uL (0-0.7); Eosinophils % (A) 5 %; Glucose,Urine (UA) Negative (Negative); HCT 27.3 % (34.0-46.0); HGB 8.3 gm/dL (11.4-16.0); Hypochromasia Marked; Ketones,Urine Negative (Negative); Leukocyte Esterase,Urine Negative (Negative); Lymphocytes # (A) 2.1 k/uL (1.0-4.8); Lymphocytes % (A) 26 %; MCH 26.9 pg (25.0-35.0); MCHC 30.3 g/dL (31.0-37.0); MCV 88.5 fL (80.0-100.0); Monocytes # (A) 0.5 k/uL (0-1.0); Monocytes % (A) 6 %; Neutrophils % (A) 60 %; Nitrite,Urine Negative (Negative); Platelet Count 466 k/uL (150-450); Protein,Urine Negative (Negative); RBC 3.08 m/uL (3.80-5.40); RDW 19.3 % (11.5-15.5); Specific Gravity,Urine 1.013 (1.001-1.035); Urobilinogen,Urine <2.0 mg/dL (<2.0); WBC 8.3 k/uL (3.8-10.6)
[2019-02-10 01:01] LABS: Iron Saturation 14.23 (12.00-45.00)
[2019-02-10 01:08] LABS: Parathyroid Hormone Intact 92.7 pg/mL (14.0-72.0)
[2019-02-10 01:55] LABS: Albumin 3.6 g/dL (3.80-4.90); Anion Gap 12.5 mmol/L (4.00-12.00); Carbon Dioxide 23.5 mmol/L (21.6-31.8); Magnesium 1.7 mg/dL (1.5-2.4); Phosphorus 4.2 mg/dL (2.4-5.1); Potassium 4.6 mmol/L (3.5-5.5); Uric Acid 12.4 mg/dL (2.9-7.7)
== END | disposition home or self-care (01) ==
LOC: LABWHC1 16:21
PROVIDERS: ATTEND Nurse Practitioner Family
DX: N18.3 Chronic kidney disease, stage 3 (moderate) (principal); E55.9 Vitamin D deficiency, unspecified; E61.1 Iron deficiency; M10.9 Gout, unspecified; N39.0 Urinary tract infection, site not specified
CPT/HCPCS: 36415; 80048; 81003; 82040; 82306; 82728; 83540; 83550; 83735; 83970; 84100; 84550; 85025

== ENCOUNTER → 2019-02-22 | Outpatient (CLI) | payer MEDICARE ==
--- NOTE | 2019-02-22 13:28 | XR ---
EXAMINATION TYPE: XR chest 2V DATE OF EXAM: 02/22/2019 COMPARISON: 01/30/2019 INDICATION: Cough TECHNIQUE: Frontal and lateral views of the chest are obtained. FINDINGS: The heart size is mildly prominent. The pulmonary vasculature is prominent. Some bibasilar infiltrates are present. Correlate for atelectasis. Atypical pulmonary edema should be considered. There is hyperinflation and increased AP diameter with increased kyphosis compatible so me senile emphysematous change. IMPRESSION: 1. Findings appear suggestive for developing congestive heart failure. 2. Bibasilar infiltrates could be related to atypical pulmonary edema or atelectasis. 3. COPD
== END ==
LOC: RADXRMAIN 13:05
PROVIDERS: ATTEND Family Medicine
DX: J44.9 Chronic obstructive pulmonary disease, unspecified (principal); R91.8 Other nonspecific abnormal finding of lung field
CPT/HCPCS: 71046

== ENCOUNTER 2019-03-02 00:14 | Emergency (ER) | payer MEDICARE ==
--- NOTE | 2019-03-02 01:12 | ED ---
Fall HPI - General Chief Complaint: Fall Stated Complaint: Fall Time Seen by Provider: 03/02/19 00:24 Source: patient, EMS Mode of arrival: EMS - History of Present Illness Initial Comments: Sonal is a pleasant 88-year-old female presents to the emergency department today via EMS for evaluation of head injury after an apparent fall home. Patient reports that today she opened her bottle of Tylenol and it spilled pills went everywhere. She states that she tried to clean them up but must of missed some. She said later in the evening she was in her kitchen when she stood and she tripped falling backwards striking her head on the bookcase on her way down. She did not see stars she did not lose consciousness. She reports that she sat there for a minute Finken of how to get back up she then used her life alert contact EMS for lift assist. However given that she takes Coumadin that she did strike her head and she has a small hematoma they encouraged her to come the spital for evaluation. Patient denies any complaints at this time. MD Complaint: fall -: hour(s) Fall From: standing When Fall Occurred: 1 hour [employer]ING [employer]PER[employer] Fall Witnessed: no Place Fall Occurred: home Loss of Consciousness: none Prolonged Down Time?: no Symptoms Prior to Fall: none Location: head Severity: mild Severity scale (1-10): 0 Context: tripped/slipped, history of frequent falls Associated Symptoms: denies - Related Data Home Medications Medication Instructions Recorded Confirmed HYDROcodone/APAP 5-325MG [[place] 1 tab PO HS PRN 02/02/14 01/30/19 5-325] amLODIPine BESYLATE [Norvasc] 5 mg PO HS 02/02/14 01/30/19 Ipratropium-Albuterol Nebulize 3 ml INHALATION RT-TID PRN 08/20/16 01/30/19 [Duoneb 0.5 mg-3 mg/3 ml Soln] Montelukast [Singulair] 10 mg PO DAILY@1500 05/17/17 01/30/19 Fluticasone/Salmeterol [Advair 1 puff INHALATION RT-BID 05/18/17 01/30/19 250-50 Diskus] Metoprolol Tartrate [Lopressor] 100 mg PO BID 07/18/17 01/30/19 Sennosides [Senna] 8.6 mg PO HS 10/27/17 05/11/19 Rivaroxaban [Xarelto] 15 mg PO HS@199912/11/17 01/30/19 Acetaminophen [Tylenol] 1,000 mg PO Q4H PRN 05/14/18 01/30/19 Insulin Detemir [Levemir Flextouch] 8 unit SQ DAILY@1430 05/14/18 01/30/19 Multivitamin [Multivitamins Adult 1 tab PO DAILY 05/14/18 01/30/19 Gummies] metFORMIN HCL [Glucophage] 500 mg PO BID 06/09/18 01/30/19 Cholecalciferol (Vitamin D3) 2,000 unit PO DAILY 09/28/18 01/30/19 [Vitamin D3] Aspirin EC [Ecotrin Low Dose] 81 mg PO Q48H 10/12/18 01/30/19 Furosemide [Lasix] 20 mg PO DAILY@0900 01/08/19 01/30/19 Furosemide [Lasix] 20 mg PO DAILY@1400 PRN 01/08/19 01/30/19 Previous Rx's Medication Instructions Recorded Atorvastatin [Lipitor] 40 mg PO HS #30 tab 07/23/17 Nitroglycerin Sl Tabs [Nitrostat] 0.4 mg SUBLINGUAL Q5M PRN #25 tab 07/23/17 Isosorbide Mononitrate ER [Imdur] 30 mg PO DAILY #30 tab.er.24h 09/23/17 Oxazepam [Serax] 15 mg PO BID #60 capsule 10/05/18 Ferrous Sulfate [Feosol] 325 mg PO BID #60 tab 01/13/19 Pantoprazole [Protonix] 40 mg PO BID #60 tablet. 01/13/19 Allergies Allergy/AdvReac Type Severity Reaction Status Date / Time amoxicillin trihydrate Allergy Unknown Verified 01/30/19 19:04 [From Augmentin] clindamycin HCl Allergy Unknown Verified 01/30/19 19:04 [From Cleocin] clindamycin palmitate HCl Allergy Unknown Verified 01/30/19 19:04 [From Cleocin] clindamycin phosphate Allergy Unknown Verified 01/30/19 19:04 [From Cleocin] codeine Allergy Unknown Verified 01/30/19 19:04 lorazepam [From Ativan] Allergy Confusion Verified 01/30/19 19:04 nitrofurantoin Allergy Unknown Verified 01/30/19 19:04 [From Macrobid] nitrofurantoin Allergy Unknown Verified 01/30/19 19:04 macrocrystalline [From Macrobid] Penicillins Allergy Unknown Verified 01/30/19 19:04 potassium clavulanate Allergy Unknown Verified 01/30/19 19:04 [From Augmentin] prednisone Allergy Unknown Verified 01/30/19 19:04 quinine Allergy Unknown Verified 01/30/19 19:04 Sulfa (Sulfonamide Allergy Unknown Verified 01/30/19 19:04 Antibiotics) sulfamethoxazole Allergy Unknown Verified 01/30/19 19:04 [From Bactrim] trimethoprim [From Bactrim] Allergy Unknown Verified 01/30/19 19:04 Review of Systems ROS Statement: Those systems with pertinent positive or pertinent negative responses have been documented in the HPI. ROS Other: All systems not noted in ROS Statement are negative. Past Medical History Past Medical History: Coronary Artery Disease (CAD), Chest Pain / Angina, Heart Failure, COPD, CVA/TIA, Diabetes Mellitus, GERD/Reflux, Hearing Disorder / Deafness, Hyperlipidemia, Hypertension, Myocardial Infarction (NH), Osteoarthritis (OA), Pneumonia, Renal Disease, Skin Disorder Additional Past Medical History / Comment(s): IDDM type II, frequent pneumonia, aspiration pneumonia with sepsis, renal insufficiency, recurrent UTIs, TIA x 3, difficulty swallowing-crushes meds and puts them in yogurt-past EGD/dilations, anemia, eczema, "lazy bowel" but pt states anymore she goes from diarrhea to constipation easily, generalized arthritis, chronic baci pain, hiatal hernia Last Myocardial Infarction Date:: 1998, 09/21/17 History of Any Multi-Drug Resistant Organisms: VRE Date of last positivie culture/infection: 10/07/17 MDRO Source:: VRE URINE Past Surgical History: Cholecystectomy, Heart Catheterization With Stent Additional Past Surgical History / Comment(s): cataracts w/lens implants, ectopic with one ovary/tube removed, heart caths :04/30/96 stent to rca, 03/18/2000 stent to mid rca, 07/22/17 stent to lad Past Anesthesia/Blood Transfusion Reactions: Previous Problems w/ Anesthesia Additional Past Anesthesia/Blood Transfusion Reaction / Comment(s): difficulty breathing after anesthesia Date of Last Stent Placement:: 06/2017 Past Psychological History: Depression Smoking Status: Former smoker Past Alcohol Use History: None Reported Past Drug Use History: None Reported - Past Family History Father History Unknown: Yes Family Medical History: Myocardial Infarction (NH) Additional Family Medical History / Comment(s): Father had a NH at the age of 50 yrs. He lived to be 75yrs old. Mother History Unknown: Yes Family Medical History: Myocardial Infarction (NH) Additional Family Medical History / Comment(s): Mother of a NH at about age 80yrs. General Exam - General Exam Comments Initial Comments: Physical Exam GENERAL: Elderly female in no acute distress HENT: Normocephalic, TMs normal bilaterally no hemotympanum No leon signs or raccoon eyes EYES: PERRL, EOMI PULMONARY: Unlabored respirations. No audible rales rhonchi or wheezing was noted. CARDIOVASCULAR: Warm and well perfused extremities ABDOMEN: Soft and nontender with normal bowel sounds. SKIN: Bruises on bilateral upper extremities and multiple stages of healing consistent with patient's history of frequent falls : Deferred NEUROLOGIC: Patient is alert and oriented x3. Moving all extremities spontaneously MUSCULOSKELETAL: Normal extremities with adequate strength and full range of motion. No lower extremity swelling or edema. No calf tenderness. PSYCHIATRIC: Normal psychiatric evaluation. Limitations: no limitations Course Vital Signs 03/02/19 00:15 Temperature 98.8 F Pulse Rate 74 Respiratory 18 Rate Blood Pressure 120/71 O2 Sat by Pulse 99 Oximetry Medical Decision Making - Medical Decision Making Patient was seen and evaluated history was obtained from EMS and the patient is an 88-year-old female frequent falls had a fall today that was mechanical in nature Labs and imaging ordered Labs at the patient's baseline she has chronic anemia Labs reveal mild hypoglycemia patient was given juice and a sandwich which she was eating without complaint. Patient repeatedly asking to be discharged back to her home. Patient is able stand and ambulate with her walker. CT imaging revealed no acute findings no obvious of acute intracranial injury. At this time patient continues to request discharged back home she'll follow up outpatient with her primary care physician. - Lab Data Result diagrams: 03/02/19 02:04 03/02/19 02:04 Lab Results 03/02/19 03/02/19 03/02/19 Range/Units 02:04 02:04 02:04 WBC 8.7 (3.8-10.6) k/uL RBC 3.02 L (3.80-5.40) m/uL Hgb 8.0 L (11.4-16.0) gm/dL Hct 26.7 L (34.0-46.0) % MCV 88.4 (80.0-100.0) fL MCH 26.5 (25.0-35.0) pg MCHC 30.0 L (31.0-37.0) g/dL RDW 18.5 H (11.5-15.5) % Plt Count 543 H (150-450) k/uL Neutrophils % 58 % Lymphocytes % 27 % Monocytes % 6 % Eosinophils % 6 % Basophils % 1 % Neutrophils # 5.1 (1.3-7.7) k/uL Lymphocytes # 2.3 (1.0-4.8) k/uL Monocytes # 0.5 (0-1.0) k/uL Eosinophils # 0.5 (0-0.7) k/uL Basophils # 0.0 (0-0.2) k/uL Hypochromasia Marked Anisocytosis Slight PT 13.8 H (9.0-12.0) sec INR 1.4 H (<1.2) APTT 37.2 H (22.0-30.0) sec Sodium 138 (137-145) mmol/L Potassium 4.5 (3.5-5.1) mmol/L Chloride 106 (98-107) mmol/L Carbon Dioxide 22 (22-30) mmol/L Anion Gap 10 mmol/L BUN 35 H (7-17) mg/dL Creatinine 1.75 H (0.52-1.04) mg/dL Est GFR (CKD-EPI)AfAm 30 (>60 ml/min/1.73 sqM) Est GFR (CKD-EPI)NonAf 26 (>60 ml/min/1.73 sqM) Glucose 68 L (74-99) mg/dL POC Glucose (mg/dL) (75-99) mg/dL POC Glu Chinchilla Farmer ID Calcium 8.8 (8.4-10.2) mg/dL Total Bilirubin 0.2 (0.2-1.3) mg/dL AST 35 (14-36) U/L ALT 9 (9-52) U/L Alkaline Phosphatase 112 (38-126) U/L Total Protein 6.6 (6.3-8.2) g/dL Albumin 3.0 L (3.5-5.0) g/dL 03/02/19 Range/Units 03:31 WBC (3.8-10.6) k/uL RBC (3.80-5.40) m/uL Hgb (11.4-16.0) gm/dL Hct (34.0-46.0) % MCV (80.0-100.0) fL MCH (25.0-35.0) pg MCHC (31.0-37.0) g/dL RDW (11.5-15.5) % Plt Count (150-450) k/uL Neutrophils % % Lymphocytes % % Monocytes % % Eosinophils % % Basophils % % Neutrophils # (1.3-7.7) k/uL Lymphocytes # (1.0-4.8) k/uL Monocytes # (0-1.0) k/uL Eosinophils # (0-0.7) k/uL Basophils # (0-0.2) k/uL Hypochromasia Anisocytosis PT (9.0-12.0) sec INR (<1.2) APTT (22.0-30.0) sec Sodium (137-145) mmol/L Potassium (3.5-5.1) mmol/L Chloride (98-107) mmol/L Carbon Dioxide (22-30) mmol/L Anion Gap mmol/L BUN (7-17) mg/dL Creatinine (0.52-1.04) mg/dL Est GFR (CKD-EPI)AfAm (>60 ml/min/1.73 sqM) Est GFR (CKD-EPI)NonAf (>60 ml/min/1.73 sqM) Glucose (74-99) mg/dL POC Glucose (mg/dL) 74 L (75-99) mg/dL POC Glu Chinchilla Farmer ID [place], [place] Calcium (8.4-10.2) mg/dL Total Bilirubin (0.2-1.3) mg/dL AST (14-36) U/L ALT (9-52) U/L Alkaline Phosphatase (38-126) U/L Total Protein (6.3-8.2) g/dL Albumin (3.5-5.0) g/dL Disposition Clinical Impression: Fall Disposition: HOME SELF-CARE Condition: Stable Instructions (If sedation given, give patient instructions): Fall Prevention for Older Adults (ED) Is patient prescribed a controlled substance at d/c from ED?: No Referrals: Georgi Thayer MD [Primary Care Provider] - 1-2 days
--- NOTE | 2019-03-02 01:23 | CT ---
EXAM: CT Head Without Intravenous Contrast CLINICAL HISTORY: ITS.REASON CT Reason: Fall, contusion occ lobe, on coumadin TECHNIQUE: Axial computed tomography images of the head/brain without intravenous contrast. This CT exam was performed using one or more of the following dose reduction techniques: automated exposure control, adjustment of the mA and/or kV according to patient size, and/or use of iterative reconstruction technique. DLP is 1336.4 mGy-cm (combined for CT head and C spine). COMPARISON: 01/30/19 FINDINGS: No bowstring maker film. No intracranial hemorrhage, mass effect or skull fracture. Scalp injury. Involutional changes. Bird white differentiation maintained. Empty sella, as on prior. Paranasal sinuses well-aerated with some mucosal thickening most prominent in the right maxillary sinus. Trace mastoid opacity similar to prior. IMPRESSION: No acute intracranial findings EXAM: CT Cervical Spine Without Intravenous Contrast CLINICAL HISTORY: ITS.REASON CT Reason: Fall, contison occ lobe, on coumadin TECHNIQUE: Axial computed tomography images of the cervical spine without intravenous contrast. This CT exam was performed using one or more of the following dose reduction techniques: automated exposure control, adjustment of the mA and/or kV according to patient size, and/or use of iterative reconstruction technique. COMPARISON: 01/30/19 FINDINGS: No acute fracture or subluxation. Degenerative changes which do not appear significantly changed compared to prior. Again noted are emphysematous changes at imaged lung scruggs with lung nodules. This includes stable irregular right upper lobe lung nodule measuring about 16 mm in size. Additional smaller lung nodules, example right upper lobe image 125/301 measuring about 6 mm in size in left upper lobe nodule measuring about 3 mm in size image 96/301. Borderline mediastinal nodes. IMPRESSION: No acute fracture. Indeterminate lung nodules including irregular right upper lobe nodule which appears unchanged in size compared to previous. Interval between exams is not sufficient to evaluate for progression. Recommend PET/CT or other nonemergent follow-up, as indicated.
[2019-03-02 02:24] LABS: Anisocytosis Slight; Basophils % (A) 1 %; Eosinophils # (A) 0.5 k/uL (0-0.7); Eosinophils % (A) 6 %; HCT 26.7 % (34.0-46.0); Hypochromasia Marked; Lymphocytes # (A) 2.3 k/uL (1.0-4.8); Lymphocytes % (A) 27 %; MCH 26.5 pg (25.0-35.0); MCV 88.4 fL (80.0-100.0); Mean Platelet Volume 6.9; Monocytes # (A) 0.5 k/uL (0-1.0); Monocytes % (A) 6 %; Neutrophils # (A) 5.1 k/uL (1.3-7.7); Neutrophils % (A) 58 %; Platelet Count 543 k/uL (150-450); RBC 3.02 m/uL (3.80-5.40); RDW 18.5 % (11.5-15.5); WBC 8.7 k/uL (3.8-10.6)
[2019-03-02 02:32] LABS: INR 1.4 (<1.2); Partial Thromboplastin Time 37.2 sec (22.0-30.0); Prothrombin Time 13.8 sec (9.0-12.0)
[2019-03-02 02:46] LABS: Calcium 8.8 mg/dL (8.4-10.2); Potassium 4.5 mmol/L (3.5-5.1); Total Bilirubin 0.2 mg/dL (0.2-1.3); Total Protein 6.6 g/dL (6.3-8.2)
[2019-03-02 03:33] LABS: Glucose,Whole Blood 74 mg/dL (75-99)
[2019-03-02 04:11] LABS: Glucose,Whole Blood 88 mg/dL (75-99)
[2019-03-02 04:29] VITALS: BP 132/104; PULSE 71; RESP 16; TEMP 98.6
== END 2019-03-02 04:30 | disposition home or self-care (01) ==
LOC: EC 00:14
DX: S09.90XA Unspecified injury of head, initial encounter (principal); S40.022A Contusion of left upper arm, initial encounter; S40.021A Contusion of right upper arm, initial encounter; I25.10 Atherosclerotic heart disease of native coronary artery without angina pectoris; J44.9 Chronic obstructive pulmonary disease, unspecified; E11.649 Type 2 diabetes mellitus with hypoglycemia without coma; H91.90 Unspecified hearing loss, unspecified ear; I11.0 Hypertensive heart disease with heart failure; I50.9 Heart failure, unspecified; I25.2 Old myocardial infarction; D64.9 Anemia, unspecified; Z86.19 Personal history of other infectious and parasitic diseases; Z87.891 Personal history of nicotine dependence; Z86.73 Personal history of transient ischemic attack (TIA), and cerebral infarction without residual deficits; Z87.01 Personal history of pneumonia (recurrent); Z87.19 Personal history of other diseases of the digestive system; Z90.49 Acquired absence of other specified parts of digestive tract; Z95.5 Presence of coronary angioplasty implant and graft; Z98.890 Other specified postprocedural states; Z79.01 Long term (current) use of anticoagulants; Z79.4 Long term (current) use of insulin; Z79.51 Long term (current) use of inhaled steroids; Z79.82 Long term (current) use of aspirin; Z79.899 Other long term (current) drug therapy; Z88.0 Allergy status to penicillin; Z88.1 Allergy status to other antibiotic agents; Z88.2 Allergy status to sulfonamides; Z88.8 Allergy status to other drugs, medicaments and biological substances; W01.190A Fall on same level from slipping, tripping and stumbling with subsequent striking against furniture, initial encounter; Y92.000 Kitchen of unspecified non-institutional (private) residence as the place of occurrence of the external cause
CPT/HCPCS: 36415; 70450; 72125; 80053; 85025; 85610; 85730; 99284

== ENCOUNTER → 2019-04-06 | Outpatient (CLI) | payer MEDICARE ==
[2019-04-06 17:26] LABS: Anisocytosis Slight; Basophils % (A) 1 %; Eosinophils # (A) 0.4 k/uL (0-0.7); Eosinophils % (A) 6 %; HCT 25.3 % (34.0-46.0); HGB 7.2 gm/dL (11.4-16.0); Hypochromasia Marked; Lymphocytes # (A) 2.2 k/uL (1.0-4.8); Lymphocytes % (A) 31 %; MCH 26.2 pg (25.0-35.0); MCHC 28.5 g/dL (31.0-37.0); MCV 92.1 fL (80.0-100.0); Mean Platelet Volume 6.8; Monocytes # (A) 0.5 k/uL (0-1.0); Monocytes % (A) 7 %; Neutrophils # (A) 3.8 k/uL (1.3-7.7); Neutrophils % (A) 53 %; Platelet Count 441 k/uL (150-450); RBC 2.75 m/uL (3.80-5.40); RDW 18.2 % (11.5-15.5); WBC 7.1 k/uL (3.8-10.6)
[2019-04-06 17:40] LABS: Albumin 3.5 g/dL (3.5-5.0); Calcium 9.1 mg/dL (8.4-10.2); Magnesium 1.9 mg/dL (1.6-2.3); Phosphorus 4.2 mg/dL (2.5-4.5); Uric Acid 10.7 mg/dL (3.7-7.4)
[2019-04-06 18:04] LABS: Appearance,Urine Clear (Clear); Bilirubin,Urine Negative (Negative); Blood,Urine Negative (Negative); Color,Urine Light Yellow; Glucose,Urine (UA) Negative (Negative); Ketones,Urine Negative (Negative); Leukocyte Esterase,Urine Negative (Negative); Nitrite,Urine Negative (Negative); Protein,Urine Negative (Negative); Specific Gravity,Urine 1.011 (1.001-1.035); Urobilinogen,Urine <2.0 mg/dL (<2.0)
[2019-04-06 18:26] LABS: Creatinine,Urine Random 32.7 mg/dL
[2019-04-06 23:11] LABS: Vitamin D 25 Hydroxy 37.3 ng/mL (30.0-100.0)
[2019-04-06 23:39] LABS: Iron Saturation 7.24 (12.00-45.00)
[2019-04-07 00:21] LABS: Parathyroid Hormone Intact 92.2 pg/mL (14.0-72.0)
== END | disposition home or self-care (01) ==
LOC: LAB 16:20
PROVIDERS: ATTEND Internal Medicine Nephrology
DX: E61.1 Iron deficiency (principal); E55.9 Vitamin D deficiency, unspecified; N25.81 Secondary hyperparathyroidism of renal origin; M10.9 Gout, unspecified; N39.0 Urinary tract infection, site not specified; N18.4 Chronic kidney disease, stage 4 (severe); R80.9 Proteinuria, unspecified
CPT/HCPCS: 80048; 81003; 82040; 82306; 82570; 82728; 83540; 83550; 83735; 83970; 84100; 84156; 84550; 85025

== ENCOUNTER → 2019-04-29 | Outpatient (CLI) | payer MEDICARE ==
--- NOTE | 2019-04-29 21:57 | CT ---
EXAMINATION TYPE: CT chest wo con DATE OF EXAM: 04/29/2019 COMPARISON: Chest CT December 04, 2018. PET/CT December 19, 2018. HISTORY: Lung nodule CT DLP: 127 mGycm. Automated Exposure Control for Dose Reduction was Utilized. TECHNIQUE: CT scan of the thorax is performed without IV contrast. FINDINGS: LUNGS: Background moderate emphysematous change redemonstrated. Fairly stable spiculated nodule or sc arlike opacity right upper lobe measuring 1.4 x 1.0 cm axial image 10 not significant changed from pr ior CT axial image 13. There is persistent bibasilar linear scarring and/or atelectasis near the diap hragms. No new nodules or masses. No pleural effusion or pneumothorax. MEDIASTINUM: Lack of IV contrast is noted to limit evaluation for mediastinal and especially hilar ad enopathy. There are no definitive new greater than 1 cm noncalcified hilar or mediastinal lymph nodes . Prominent but calcified left hilar lymph nodes are redemonstrated. Coronary artery calcification is again seen which is noted marked underlying coronary artery disease. Moderate calcified plaque of th e aorta is redemonstrated. No pericardial effusion is seen. Cardiomegaly is again seen. OTHER: Cholecystectomy clips are redemonstrated. Advanced compression fractures T9 and T10 level are redemonstrated. IMPRESSION: Stable 1.4 cm spiculated nodule or scarlike opacity right upper lobe on background modera te emphysematous change with negative PET favor postinflammatory. Consider CT monitoring in 6-12 radha hs time to ensure benign. No new suspicious nodules or masses.
== END | disposition home or self-care (01) ==
LOC: RADCTMAIN 15:19
PROVIDERS: ATTEND Internal Medicine
DX: J43.9 Emphysema, unspecified (principal); Z88.0 Allergy status to penicillin; Z88.1 Allergy status to other antibiotic agents; Z88.2 Allergy status to sulfonamides
CPT/HCPCS: 36415; 71250; 82565; 84520

== ENCOUNTER → 2019-05-04 | Outpatient (CLI) | payer MEDICARE ==
--- NOTE | 2019-05-04 17:51 | US ---
EXAMINATION TYPE: US venous doppler duplex LE LT DATE OF EXAM: 05/04/2019 5:37 PM COMPARISON: US 2013 CLINICAL HISTORY: R22.4 Swelling Left Lower. Left leg swelling SIDE PERFORMED: Left TECHNIQUE: The lower extremity deep venous system is examined utilizing real time linear array sonog oliva with graded compression, doppler sonography and color-flow sonography. VESSELS IMAGED: External Iliac Vein (EIV) Common Femoral Vein Deep Femoral Vein Greater Saphenous Vein * Femoral Vein Popliteal Vein Small Saphenous Vein * Proximal Calf Veins (* superficial vessels) FINDINGS: Grayscale, color doppler, spectral doppler imaging performed of the deep veins of the lowe r extremities. There is normal flow, compressibility, vascular waveforms. IMPRESSION: 1) NEGATIVE FOR DVT, LEFT LOWER EXTREMITY. 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
== END | disposition home or self-care (01) ==
LOC: RADUSWWP 16:55
PROVIDERS: ATTEND Internal Medicine
DX: M71.22 Synovial cyst of popliteal space [Baker], left knee (principal); Z91.041 Radiographic dye allergy status

== ENCOUNTER 2019-07-03 09:09 | Observation (INO) | payer MEDICARE ==
[2019-07-03 09:18] VITALS: RESP 18
[2019-07-03] MEDS ORDERED: SODIUM CHLORIDE 0.9% 1,000 ML IV STA (09:55)
--- NOTE | 2019-07-03 10:01 | ED ---
General Adult HPI <Blue Shelley - Last Filed: 07/03/19 12:03> - General Source: patient, family, RN notes reviewed, old records reviewed Mode of arrival: wheelchair Limitations: no limitations <Jael Ramos - Last Filed: 07/03/19 12:25> - General Chief complaint: Dizziness Stated complaint: Weakness,back pain Time Seen by Provider: 07/03/19 09:40 - History of Present Illness Initial comments: Patient is a 89-year-old female with a history of coronary artery disease, diabetes, heart failure, COPD, hypertension. She presents today with multiple complaints. Patient reports that yesterday evening while she was standing at the sink to wash up before but she developed some dizziness and complain of some sharp chest pain and radiation towards her back. Patient reports that she was feeling dizzy and, and lightheaded with walking yesterday and earlier this week. She also reports an episode of coughing with some blood-tinged sputum. Patient denies any nausea or vomiting or abdominal pain. He reports that her renewals manager is Dr. Nunez. Headache. She denies any falls or trauma. ([email or web address]) - Related Data Home Medications Medication Instructions Recorded Confirmed HYDROcodone/APAP 5-325MG [[place] 1 tab PO BID PRN 02/02/14 07/03/19 5-325] amLODIPine BESYLATE [Norvasc] 5 mg PO HS 02/02/14 07/03/19 Ipratropium-Albuterol Nebulize 3 ml INHALATION RT-TID PRN 08/20/16 07/03/19 [Duoneb 0.5 mg-3 mg/3 ml Soln] Montelukast [Singulair] 10 mg PO DAILY@1200 05/17/17 07/03/19 Fluticasone/Salmeterol [Advair 1 puff INHALATION RT-BID 05/18/17 07/03/19 250-50 Diskus] Metoprolol Tartrate [Lopressor] 100 mg PO BID 07/18/17 07/03/19 Sennosides [Senna] 8.6 mg PO HS 07/18/17 07/03/19 Rivaroxaban [Xarelto] 15 mg PO HS@199912/11/17 07/03/19 Acetaminophen [Tylenol] 1,000 mg PO Q4H PRN 05/14/18 07/03/19 Insulin Detemir [Levemir Flextouch] 8 unit SQ DAILY@1430 05/14/18 07/03/19 Furosemide [Lasix] 40 mg PO DAILY 01/08/19 07/03/19 Previous Rx's Medication Instructions Recorded Atorvastatin [Lipitor] 40 mg PO HS #30 tab 07/23/17 Nitroglycerin Sl Tabs [Nitrostat] 0.4 mg SUBLINGUAL Q5M PRN #25 tab 07/23/17 Isosorbide Mononitrate ER [Imdur] 30 mg PO DAILY #30 tab.er.24h 09/23/17 Oxazepam [Serax] 15 mg PO BID #60 capsule 10/05/18 Ferrous Sulfate [Feosol] 325 mg PO BID #60 tab 01/13/19 Pantoprazole [Protonix] 40 mg PO BID #60 tablet. 01/13/19 Allergies Allergy/AdvReac Type Severity Reaction Status Date / Time amoxicillin trihydrate Allergy Unknown Verified 07/03/19 09:33 [From Augmentin] clindamycin HCl Allergy Unknown Verified 07/03/19 09:33 [From Cleocin] clindamycin palmitate HCl Allergy Unknown Verified 07/03/19 09:33 [From Cleocin] clindamycin phosphate Allergy Unknown Verified 07/03/19 09:33 [From Cleocin] codeine Allergy Unknown Verified 07/03/19 09:33 lorazepam [From Ativan] Allergy Confusion Verified 07/03/19 09:33 nitrofurantoin Allergy Unknown Verified 07/03/19 09:33 [From Macrobid] nitrofurantoin Allergy Unknown Verified 07/03/19 09:33 macrocrystalline [From Macrobid] Penicillins Allergy Unknown Verified 07/03/19 09:33 potassium clavulanate Allergy Unknown Verified 07/03/19 09:33 [From Augmentin] prednisone Allergy Unknown Verified 07/03/19 09:33 quinine Allergy Unknown Verified 07/03/19 09:33 Sulfa (Sulfonamide Allergy Unknown Verified 07/03/19 09:33 Antibiotics) sulfamethoxazole Allergy Unknown Verified 07/03/19 09:33 [From Bactrim] trimethoprim [From Bactrim] Allergy Unknown Verified 07/03/19 09:33 Review of Systems ROS Other: All systems not noted in ROS Statement are negative. <Blue Shelley - Last Filed: 07/03/19 12:03> ROS Other: All systems not noted in ROS Statement are negative. <Jael Ramos - Last Filed: 07/03/19 12:25> ROS Statement: Those systems with pertinent positive or pertinent negative responses have been documented in the HPI. Past Medical History Past Medical History: Coronary Artery Disease (CAD), Chest Pain / Angina, Heart Failure, COPD, CVA/TIA, Diabetes Mellitus, GERD/Reflux, Hearing Disorder / Deafness, Hyperlipidemia, Hypertension, Myocardial Infarction (DC), Osteoarthritis (OA), Pneumonia, Renal Disease, Skin Disorder Additional Past Medical History / Comment(s): IDDM type II, frequent pneumonia, aspiration pneumonia with sepsis, renal insufficiency, recurrent UTIs, TIA x 3, difficulty swallowing-crushes meds and puts them in yogurt-past EGD/dilations, anemia, eczema, "lazy bowel" but pt states anymore she goes from diarrhea to constipation easily, generalized arthritis, chronic baci pain, hiatal hernia Last Myocardial Infarction Date:: 1998, 09/21/17 History of Any Multi-Drug Resistant Organisms: VRE Date of last positivie culture/infection: 10/07/17 MDRO Source:: VRE URINE Past Surgical History: Cholecystectomy, Heart Catheterization With Stent Additional Past Surgical History / Comment(s): cataracts w/lens implants, ectopic with one ovary/tube removed, heart caths :04/30/96 stent to rca, 03/18/2000 stent to mid rca, 07/22/17 stent to lad Past Anesthesia/Blood Transfusion Reactions: Previous Problems w/ Anesthesia Additional Past Anesthesia/Blood Transfusion Reaction / Comment(s): difficulty breathing after anesthesia Date of Last Stent Placement:: 06/2017 Past Psychological History: Depression Smoking Status: Former smoker Past Alcohol Use History: None Reported Past Drug Use History: None Reported - Past Family History Father History Unknown: Yes Family Medical History: Myocardial Infarction (DC) Additional Family Medical History / Comment(s): Father had a DC at the age of 50 yrs. He lived to be 75yrs old. Mother History Unknown: Yes Family Medical History: Myocardial Infarction (DC) Additional Family Medical History / Comment(s): Mother of a DC at about age 80yrs. <Jael Ramos - Last Filed: 07/03/19 12:25> General Exam Limitations: no limitations General appearance: alert, in no apparent distress Head exam: Present: atraumatic, normocephalic, normal inspection Eye exam: Present: normal appearance, PERRL, EOMI. Absent: scleral icterus, conjunctival injection, periorbital swelling ENT exam: Present: normal exam, mucous membranes dry, mucous membranes moist Neck exam: Present: normal inspection. Absent: tenderness, meningismus, lymphadenopathy Respiratory exam: Present: normal lung sounds bilaterally, decreased breath sounds. Absent: respiratory distress, wheezes, rales, rhonchi, stridor Cardiovascular Exam: Present: regular rate, normal rhythm, normal heart sounds, other (She has some tenderness over the midthoracic spine. No rashes.). Absent: systolic murmur, diastolic murmur, rubs, gallop, clicks GI/Abdominal exam: Present: soft, normal bowel sounds. Absent: distended, tenderness, guarding, rebound, rigid Extremities exam: Present: normal inspection, full ROM, normal capillary refill. Absent: tenderness, pedal edema, joint swelling, calf tenderness Back exam: Present: normal inspection Neurological exam: Present: alert, oriented X3, CN II-XII intact Psychiatric exam: Present: normal affect, normal mood Skin exam: Present: warm, dry, intact, normal color. Absent: rash <Jael Ramos - Last Filed: 07/03/19 12:25> - General Exam Comments Initial Comments: A 9-year-old female. Patient appears generally weak, frail. (Jael Ramos) Course <Blue Shelley - Last Filed: 07/03/19 12:03> Vital Signs 07/03/19 07/03/19 09:11 11:42 Temperature 98 F Pulse Rate 74 70 Respiratory 18 18 Rate Blood Pressure 157/57 123/61 O2 Sat by Pulse 96 97 Oximetry - Reevaluation(s) Reevaluation #1: 07/03/19 12:03 PA supervision: I personally evaluate the patient [id number] she does present with complaints that do include lightheadedness dizziness cough with some blood. She does demonstrate evidence of chronic renal insufficiency evidence of chronic changes a small effusion and x-rays elevated BNP did discuss case with Dr. Daniel who is covering Dr. Thayer the patient be admitted for evaluation COPD CHF and hemoptysis. (Blue Shelley) EKG Findings - EKG Comments: EKG Findings:: EKG performed at 948 shows sinus rhythm, marked sinus arrhythmia, occasional PVCs. Left bundle branch block. Abnormal EKG. Ventricular rate is 69 bpm.. Intervals 182 ms. QRS duration is 144 ms. QT QTc is 462/495 ms. <Jael Ramos - Last Filed: 07/03/19 12:25> Medical Decision Making - Lab Data Result diagrams: 07/03/19 10:14 07/03/19 10:14 <Blue Shelley - Last Filed: 07/03/19 12:03> - Lab Data Result diagrams: 07/03/19 10:14 07/03/19 10:14 - Radiology Data Radiology results: report reviewed <Jael Ramos - Last Filed: 07/03/19 12:25> - Medical Decision Making A 9-year-old female presents today with complaints of dizziness, episodes of generalized weakness, some chest pain and thoracic back pain. Patient did report some episodes of hemoptysis. At this time she is have diminished lung sounds bilaterally. Patient's renewals manager is Dr. Nunez. At this time patient's chest x-ray shows concerns for pleural effusions and COPD. Blood work was reviewed. Normal troponin. Elevated BNP of 4000. This does appear to be relatively stable. She does have evidence of chronic renal insufficiency. Due to hemoptysis and complaints of patient's pain I did complete a d-dimer. This was mildly elevated. However this is normal for patient's age. Patient case was discussed with Dr. Shelley. He recommended to avoid heparinizing at this time, and Patient can be evaluated by pulmonology. (Jael Ramos) - Lab Data Lab Results 07/03/19 07/03/19 07/03/19 Range/Units 10:14 10:14 10:14 WBC 8.5 (3.8-10.6) k/uL RBC 3.42 L (3.80-5.40) m/uL Hgb 9.5 L (11.4-16.0) gm/dL Hct 31.2 L (34.0-46.0) % MCV 91.0 (80.0-100.0) fL MCH 27.7 (25.0-35.0) pg MCHC 30.5 L (31.0-37.0) g/dL RDW 14.2 (11.5-15.5) % Plt Count 321 (150-450) k/uL Neutrophils % 65 % Lymphocytes % 17 % Monocytes % 7 % Eosinophils % 7 % Basophils % 2 % Neutrophils # 5.5 (1.3-7.7) k/uL Lymphocytes # 1.4 (1.0-4.8) k/uL Monocytes # 0.6 (0-1.0) k/uL Eosinophils # 0.6 (0-0.7) k/uL Basophils # 0.1 (0-0.2) k/uL Hypochromasia Slight PT 10.3 (9.0-12.0) sec INR 1.0 (<1.2) APTT 27.1 (22.0-30.0) sec D-Dimer 0.86 H (<0.60) mg/L FEU Sodium 141 (137-145) mmol/L Potassium 3.8 (3.5-5.1) mmol/L Chloride 105 (98-107) mmol/L Carbon Dioxide 28 (22-30) mmol/L Anion Gap 8 mmol/L BUN 27 H (7-17) mg/dL Creatinine 1.63 H (0.52-1.04) mg/dL Est GFR (CKD-EPI)AfAm 33 (>60 ml/min/1.73 sqM) Est GFR (CKD-EPI)NonAf 28 (>60 ml/min/1.73 sqM) Glucose 110 H (74-99) mg/dL Calcium 9.0 (8.4-10.2) mg/dL Magnesium 2.2 (1.6-2.3) mg/dL Total Bilirubin 0.3 (0.2-1.3) mg/dL AST 25 (14-36) U/L ALT 10 (9-52) U/L Alkaline Phosphatase 88 (38-126) U/L Troponin I (0.000-0.034) ng/mL NT-Pro-B Natriuret Pep pg/mL Total Protein 6.5 (6.3-8.2) g/dL Albumin 3.2 L (3.5-5.0) g/dL Urine Color Urine Appearance (Clear) Urine pH (5.0-8.0) Ur Specific Flynn (1.001-1.035) Urine Protein (Negative) Urine Glucose (UA) (Negative) Urine Ketones (Negative) Urine Blood (Negative) Urine Nitrite (Negative) Urine Bilirubin (Negative) Urine Urobilinogen (<2.0) mg/dL Ur Leukocyte Esterase (Negative) Urine RBC (0-5) /hpf Urine WBC (0-5) /hpf Ur Squamous Epith Cells (0-4) /hpf Amorphous Sediment (None) /hpf Urine Bacteria (None) /hpf Urine Mucus (None) /hpf 07/03/19 07/03/19 07/03/19 Range/Units 10:14 10:14 10:36 WBC (3.8-10.6) k/uL RBC (3.80-5.40) m/uL Hgb (11.4-16.0) gm/dL Hct (34.0-46.0) % MCV (80.0-100.0) fL MCH (25.0-35.0) pg MCHC (31.0-37.0) g/dL RDW (11.5-15.5) % Plt Count (150-450) k/uL Neutrophils % % Lymphocytes % % Monocytes % % Eosinophils % % Basophils % % Neutrophils # (1.3-7.7) k/uL Lymphocytes # (1.0-4.8) k/uL Monocytes # (0-1.0) k/uL Eosinophils # (0-0.7) k/uL Basophils # (0-0.2) k/uL Hypochromasia PT (9.0-12.0) sec INR (<1.2) APTT (22.0-30.0) sec D-Dimer (<0.60) mg/L FEU Sodium (137-145) mmol/L Potassium (3.5-5.1) mmol/L Chloride (98-107) mmol/L Carbon Dioxide (22-30) mmol/L Anion Gap mmol/L BUN (7-17) mg/dL Creatinine (0.52-1.04) mg/dL Est GFR (CKD-EPI)AfAm (>60 ml/min/1.73 sqM) Est GFR (CKD-EPI)NonAf (>60 ml/min/1.73 sqM) Glucose (74-99) mg/dL Calcium (8.4-10.2) mg/dL Magnesium (1.6-2.3) mg/dL Total Bilirubin (0.2-1.3) mg/dL AST (14-36) U/L ALT (9-52) U/L Alkaline Phosphatase (38-126) U/L Troponin I <0.012 (0.000-0.034) ng/mL NT-Pro-B Natriuret Pep 4100 pg/mL Total Protein (6.3-8.2) g/dL Albumin (3.5-5.0) g/dL Urine Color Light Yellow Urine Appearance Clear (Clear) Urine pH 6.5 (5.0-8.0) Ur Specific [place] 1.010 (1.001-1.035) Urine Protein Trace H (Negative) Urine Glucose (UA) Negative (Negative) Urine Ketones Negative (Negative) Urine Blood Negative (Negative) Urine Nitrite Negative (Negative) Urine Bilirubin Negative (Negative) Urine Urobilinogen <2.0 (<2.0) mg/dL Ur Leukocyte Esterase Moderate H (Negative) Urine RBC 1 (0-5) /hpf Urine WBC 7 H (0-5) /hpf Ur Squamous Epith Cells 6 H (0-4) /hpf Amorphous Sediment Rare H (None) /hpf Urine Bacteria Rare H (None) /hpf Urine Mucus Rare H (None) /hpf - Radiology Data Thoracic spine shows suboptimal exam. At least 2 wedge compression fractures of the spine is likely T10 and T11. Computed tomography scan of the thoracic May be worthwhile. Chest x-ray shows suboptimal examination. Continuing changes for pulmonary edema. Evidence of COPD. Cannot exclude small bilateral pleural effusions. (Jael Ramos) Disposition <Blue Shelley - Last Filed: 07/03/19 12:03> Is patient prescribed a controlled substance at d/c from ED?: No Time of Disposition: 12:25 <Jael Ramos - Last Filed: 07/03/19 12:25> Clinical Impression: COPD (chronic obstructive pulmonary disease), CHF (congestive heart failure), Hemoptysis, Weakness, Compression fracture of thoracic spine, non-traumatic, Dizziness Disposition: ADMITTED IP TO THIS HOSP Condition: Stable Referrals: Georgi Thayer MD [Primary Care Provider] - 1-2 days
[2019-07-03] MEDS ORDERED: SODIUM CHLORIDE 0.9% 1,000 ML IV SCH (10:15)
[2019-07-03 10:26] LABS: Basophils # (A) 0.1 k/uL (0-0.2); Basophils % (A) 2 %; Eosinophils # (A) 0.6 k/uL (0-0.7); Eosinophils % (A) 7 %; HCT 31.2 % (34.0-46.0); HGB 9.5 gm/dL (11.4-16.0); Hypochromasia Slight; Lymphocytes # (A) 1.4 k/uL (1.0-4.8); Lymphocytes % (A) 17 %; MCH 27.7 pg (25.0-35.0); MCHC 30.5 g/dL (31.0-37.0); Mean Platelet Volume 6.8; Monocytes # (A) 0.6 k/uL (0-1.0); Monocytes % (A) 7 %; Neutrophils # (A) 5.5 k/uL (1.3-7.7); Neutrophils % (A) 65 %; Platelet Count 321 k/uL (150-450); RBC 3.42 m/uL (3.80-5.40); RDW 14.2 % (11.5-15.5); WBC 8.5 k/uL (3.8-10.6)
[2019-07-03 10:36] LABS: Albumin 3.2 g/dL (3.5-5.0); Magnesium 2.2 mg/dL (1.6-2.3); Potassium 3.8 mmol/L (3.5-5.1); Total Bilirubin 0.3 mg/dL (0.2-1.3); Total Protein 6.5 g/dL (6.3-8.2)
[2019-07-03 10:41] LABS: Partial Thromboplastin Time 27.1 sec (22.0-30.0); Prothrombin Time 10.3 sec (9.0-12.0)
[2019-07-03 10:54] LABS: Amorphous Sediment,Urine Rare /hpf; Appearance,Urine Clear (Clear); Bacteria,Urine Rare /hpf; Bilirubin,Urine Negative (Negative); Blood,Urine Negative (Negative); Color,Urine Light Yellow; Glucose,Urine (UA) Negative (Negative); Ketones,Urine Negative (Negative); Leukocyte Esterase,Urine Moderate (Negative); Mucus,Urine Rare /hpf; Nitrite,Urine Negative (Negative); PH, Urine 6.5 (5.0-8.0); Protein,Urine Trace (Negative); RBC,Urine 1 /hpf (0-5); Squamous Epithelial Cell,Urine 6 /hpf (0-4); Urobilinogen,Urine <2.0 mg/dL (<2.0); WBC,Urine 7 /hpf (0-5)
[2019-07-03 10:59] LABS: D-Dimer 0.86 mg/L FEU (<0.60)
[2019-07-03] MEDS ORDERED: MORPHINE SULFATE 4 MG/ML SYRINGE IVP STA (11:01)
--- NOTE | 2019-07-03 11:35 | XR ---
EXAMINATION TYPE: XR chest 2V DATE OF EXAM: 07/03/2019 HISTORY: dizzinesss, chest pain. REFERENCE: Previous study dated 02/22/2019. FINDINGS: The study is moderately rotated. The heart is enlarged. There are small, bilateral effusions. There is underlying COPD. There is vascu lar congestion and mild edema. IMPRESSION: 1. SUBOPTIMAL EXAMINATION. 2. CONTINUING CHANGES OF PULMONARY EDEMA. 3. COPD. 4. I COULD NOT EXCLUDE SMALL, BILATERAL EFFUSIONS.
--- NOTE | 2019-07-03 11:38 | XR ---
EXAMINATION TYPE: XR thoracic spine 2V , 4 VIEWS DATE OF EXAM ORDERED: 07/03/2019 HISTORY: tenderness. COMPARISON: Previous study dated 09/30/2018. FINDINGS: The study is rotated. The bones are very osteopenic likely on the basis of osteoporosis. The bones are not well seen in the lateral projection. There least 2 wedge compression fractures of the mid dorsal vertebra. IMPRESSION: 1. MARKEDLY SUBOPTIMAL EXAM. 2. AT LEAST 2 WEDGE COMPRESSION FRACTURES OF THE BLADDER IS LIKELY T10 AND T11. A CT SCAN OF THE THOR ACIC SPINE MAY BE WORTHWHILE.
[2019-07-03] MEDS ORDERED: NITROGLYCERIN SL TABS 0.4 MG TAB SUBLINGUAL PRN ×2 (12:27→15:00)
[2019-07-03] MEDS ORDERED: ASPIRIN 81 MG PO STA (12:27)
--- NOTE | 2019-07-03 13:54 | P.CNPUL ---
History of Present Illness Consult date: 07/03/19 Requesting physician: Sandra Daniel Reason for consult: dyspnea Chief complaint: Dizziness, shortness of breath, cough History of present illness: This is a very pleasant 89-year-old female patient who follows with Dr. Thayer as her primary care physician. She has a history of coronary artery disease with previous stent placement to the RCA, atrial fibrillation anticoagulated with Xarelto, CVA/TIA, diabetes mellitus, hearing disorder, hypertension, hyperlipidemia, diastolic congestive heart failure, bruxism, chronic anemia. She has a history of previous chronic tobacco dependence and chronic obstructive pulmonary disease and follows with Dr. Cagle in our office for the same. He is maintained on DuoNeb inhalations, Advair, Singulair. She presented to the emergency room earlier this morning with complaints of dizziness she chest pain radiating through to her back. She was lightheaded with walking the day before. She had been coughing and had some blood-tinged sputum a few days ago. None today. Chest x-ray shows small bilateral pleural effusions with vascular congestion and mild edema along with underlying COPD. WBC 8.5. Hemoglobin 9.5. D-dimer 0.86. Sodium 141. Potassium 3.8. Creatinine 1.63. Urinalysis with moderate leukocytes, trace protein and high WBCs. ProBNP 4100. Troponin negative 1. EKG with atrial fibrillation and a left bundle-branch block. She is seen and evaluated in the emergency room. She is awake and alert in no acute distress. Her vital signs upon stable. She is 98 temperature. 97% O2 saturation on room air. Heart rate in the 70s. She denies any current shortness of breath, cough or congestion. No hemoptysis today. She is having some back pain currently. Review of Systems REVIEW OF SYSTEMS: CONSTITUTIONAL: Denies any recent significant weight loss or weight gain. EYES: Denies change in vision. EARS, NOSE, MOUTH, THROAT: Denies headaches, denies sore throat. CARDIOVASCULAR: Positive for chest pain, palpitations and dizziness. RESPIRATORY: Positive for shortness of breath, cough, congestion with scant hemoptysis. GASTROINTESTINAL: Denies change in appetite, denies abdominal pain GENITOURINARY: Denies hematuria, denies infections. MUSKULOSKELETAL: Denies pain, denies swelling. INTEGUMENTARY: Denies rash, denies eczema. NEUROLOGICAL: Denies recent memory loss, no recent seizure activity. PSYCHIATRIC: Denies anxiety, denies depression. HEMATOLOGIC/LYMPHATIC: Denies anemia, denies enlarged lymph nodes. Past Medical History Past Medical History: Coronary Artery Disease (CAD), Chest Pain / Angina, Heart Failure, COPD, CVA/TIA, Diabetes Mellitus, GERD/Reflux, Hearing Disorder / Deafness, Hyperlipidemia, Hypertension, Myocardial Infarction ([place]), Osteoarthritis (OA), Pneumonia, Renal Disease, Skin Disorder Additional Past Medical History / Comment(s): IDDM type II, frequent pneumonia, aspiration pneumonia with sepsis, renal insufficiency, recurrent UTIs, TIA x 3, difficulty swallowing-crushes meds and puts them in yogurt-past EGD/dilations, anemia, eczema, "lazy bowel" but pt states anymore she goes from diarrhea to constipation easily, generalized arthritis, chronic baci pain, hiatal hernia Last Myocardial Infarction Date:: 1998, 09/21/17 History of Any Multi-Drug Resistant Organisms: VRE Date of last positivie culture/infection: 10/07/17 MDRO Source:: VRE URINE Past Surgical History: Cholecystectomy, Heart Catheterization With Stent Additional Past Surgical History / Comment(s): cataracts w/lens implants, ectopic with one ovary/tube removed, heart caths :04/30/96 stent to rca, 03/18/2000 stent to mid rca, 07/22/17 stent to lad Past Anesthesia/Blood Transfusion Reactions: Previous Problems w/ Anesthesia Additional Past Anesthesia/Blood Transfusion Reaction / Comment(s): difficulty breathing after anesthesia Date of Last Stent Placement:: 06/2017 Past Psychological History: Depression Smoking Status: Former smoker Past Alcohol Use History: None Reported Past Drug Use History: None Reported - Past Family History Father History Unknown: Yes Family Medical History: Myocardial Infarction ([place]) Additional Family Medical History / Comment(s): Father had a SD at the age of 50 yrs. He lived to be 75yrs old. Mother History Unknown: Yes Family Medical History: Myocardial Infarction ([place]) Additional Family Medical History / Comment(s): Mother of a SD at about age 80yrs. Medications and Allergies Home Medications Medication Instructions Recorded Confirmed Type HYDROcodone/APAP 5-325MG [[place] 1 tab PO BID PRN 02/02/14 07/03/19 History 5-325] amLODIPine BESYLATE [Norvasc] 5 mg PO HS 02/02/14 07/03/19 History Ipratropium-Albuterol Nebulize 3 ml INHALATION RT-TID PRN 08/20/16 07/03/19 History [Duoneb 0.5 mg-3 mg/3 ml Soln] Montelukast [Singulair] 10 mg PO DAILY@1200 05/17/17 07/03/19 History Fluticasone/Salmeterol [Advair 1 puff INHALATION RT-BID 05/18/17 07/03/19 History 250-50 Diskus] Metoprolol Tartrate [Lopressor] 100 mg PO BID 07/18/17 07/03/19 History Sennosides [Senna] 8.6 mg PO HS 07/18/17 07/03/19 History Atorvastatin [Lipitor] 40 mg PO HS #30 tab 07/23/17 07/03/19 Rx Nitroglycerin Sl Tabs [Nitrostat] 0.4 mg SUBLINGUAL Q5M PRN #25 tab 07/23/17 07/03/19 Rx Isosorbide Mononitrate ER [Imdur] 30 mg PO DAILY #30 tab.er.24h 09/23/17 07/03/19 Rx Rivaroxaban [Xarelto] 15 mg PO HS@199912/11/17 07/03/19 History Acetaminophen [Tylenol] 1,000 mg PO Q4H PRN 05/14/18 07/03/19 History Insulin Detemir [Levemir Flextouch] 8 unit SQ DAILY@1430 05/14/18 07/03/19 History Oxazepam [Serax] 15 mg PO BID #60 capsule 10/05/18 07/03/19 Rx Furosemide [Lasix] 40 mg PO DAILY 01/08/19 07/03/19 History Ferrous Sulfate [Feosol] 325 mg PO BID #60 tab 01/13/19 07/03/19 Rx Pantoprazole [Protonix] 40 mg PO BID #60 tablet. 01/13/19 07/03/19 Rx Allergies Allergy/AdvReac Type Severity Reaction Status Date / Time amoxicillin trihydrate Allergy Unknown Verified 07/03/19 09:33 [From Augmentin] clindamycin HCl Allergy Unknown Verified 07/03/19 09:33 [From Cleocin] clindamycin palmitate HCl Allergy Unknown Verified 07/03/19 09:33 [From Cleocin] clindamycin phosphate Allergy Unknown Verified 07/03/19 09:33 [From Cleocin] codeine Allergy Unknown Verified 07/03/19 09:33 lorazepam [From Ativan] Allergy Confusion Verified 07/03/19 09:33 nitrofurantoin Allergy Unknown Verified 07/03/19 09:33 [From Macrobid] nitrofurantoin Allergy Unknown Verified 07/03/19 09:33 macrocrystalline [From Macrobid] Penicillins Allergy Unknown Verified 07/03/19 09:33 potassium clavulanate Allergy Unknown Verified 07/03/19 09:33 [From Augmentin] prednisone Allergy Unknown Verified 07/03/19 09:33 quinine Allergy Unknown Verified 07/03/19 09:33 Sulfa (Sulfonamide Allergy Unknown Verified 07/03/19 09:33 Antibiotics) sulfamethoxazole Allergy Unknown Verified 07/03/19 09:33 [From Bactrim] trimethoprim [From Bactrim] Allergy Unknown Verified 07/03/19 09:33 Physical Exam Vitals: Vital Signs Temp Pulse Resp BP Pulse Ox 07/03/19 11:42 70 18 123/61 97 07/03/19 09:11 98 F 74 18 157/57 96 Intake and Output 07/02/19 07/03/19 07/03/19 22:59 06:59 14:59 Other: Weight 48.534 kg GENERAL EXAM: Alert, pleasant 89-year-old female patient, comfortable in no apparent distress. On room air. HEAD: Normocephalic. EYES: Normal reaction of pupils, equal size. NOSE: Clear with pink turbinates. THROAT: No erythema or exudates. NECK: No masses, no JVD. CHEST: No chest wall deformity. LUNGS: Equal air entry with faint crackles in the posterior bases. Diminished. CVS: S1 and S2 normal with no audible murmur, regular rhythm. ABDOMEN: No hepatosplenomegaly, normal bowel sounds, no guarding or rigidity. SPINE: No scoliosis or deformity SKIN: No rashes CENTRAL NERVOUS SYSTEM: No focal deficits, tone is normal in all 4 extremities. EXTREMITIES: There is no peripheral edema. No clubbing, no cyanosis. Peripheral pulses are intact. Results - Laboratory Findings CBC and BMP: 07/03/19:14 07/03/19 10:14 PT/INR, D-dimer PT 10.3 sec (9.0-12.0) 07/03/19 10:14 INR 1.0 (<1.2) 07/03/19 10:14 D-Dimer 0.86 mg/L FEU (<0.60) H 07/03/19 10:14 Abnormal lab findings: Abnormal Labs 07/03/19 07/03/19 07/03/19 10:14 10:14 10:14 RBC 3.42 L Hgb 9.5 L Hct 31.2 L MCHC 30.5 L D-Dimer 0.86 H BUN 27 H Creatinine 1.63 H Glucose 110 H Albumin 3.2 L Urine Protein Ur Leukocyte Esterase Urine WBC Ur Squamous Epith Cells Amorphous Sediment Urine Bacteria Urine Mucus 07/03/19 10:36 RBC Hgb Hct MCHC D-Dimer BUN Creatinine Glucose Albumin Urine Protein Trace H Ur Leukocyte Esterase Moderate H Urine WBC 7 H Ur Squamous Epith Cells 6 H Amorphous Sediment Rare H Urine Bacteria Rare H Urine Mucus Rare H - Diagnostic Findings Chest x-ray: image reviewed Assessment and Plan Assessment: Impression: #1 Acute exacerbation of chronic systolic congestive heart failure with impaired left ventricular systolic function ejection fraction 45-50%. #2 Moderate to severe aortic stenosis. #3 Acute exacerbation of chronic obstructive pulmonary disease. #4 Remote history of chronic tobacco dependence. #5 History of coronary artery disease with previous stent placement to the RCA. #6 Atrial fibrillation, anticoagulated with Xarelto. #7 Hyperlipidemia. #8 Hypertension. #9 Acute on chronic renal failure. #10 Diabetes mellitus. #11 Hearing disorder. #12 History of TIAs. Plan: The patient was seen and evaluated by Dr. Alba. Chest x-ray and labs reviewed. She is currently stable from the pulmonary standpoint. We'll continue with DuoNeb inhalations, Symbicort. Observe for any hemoptysis. We will continue to follow and make further recommendations based on her clinical status. I, the cosigning physician, performed a history & physical examination of the patient. Lungs sounds with crackles in the posterior bases. Maintaining good O2 saturations in the 90s on room air. I discussed the assessment and plan of care with my nurse practitioner, Nargis Leon. I attest to the above note as dictated by her. Time with Patient: Greater than 30
[2019-07-03] MEDS: IPRATROPIUM-ALBUTEROL 3 ML NEB INHALATION PRN ×2 (16:24→21:34)
[2019-07-03 17:03] LABS: Glucose,Whole Blood 137 mg/dL (75-99)
[2019-07-03] MEDS: INSULIN DETEMIR (LEVEMIR) 100 UNIT/ML SYR SQ SCH (17:09)
[2019-07-03] MEDS: HYDROcodone/APAP 5-325MG 1 EACH TAB PO PRN (19:22)
[2019-07-03 20:34] LABS: Glucose,Whole Blood 132 mg/dL (75-99)
[2019-07-03] MEDS: amLODIPine 5 MG TAB PO SCH (20:49)
[2019-07-03] MEDS: ATORVASTATIN 40 MG TAB PO SCH (20:50)
[2019-07-03] MEDS: METOPROLOL TARTRATE 50 MG TAB PO SCH (20:50)
[2019-07-03] MEDS: SENNOSIDES 8.6 MG TAB PO SCH (20:50)
[2019-07-03] MEDS: PANTOPRAZOLE 40 MG TABLET PO SCH (20:50)
[2019-07-03] MEDS: RIVAROXABAN 15 MG TAB PO SCH (20:55)
[2019-07-03] MEDS ORDERED: SERAX PO SCH (21:00)
[2019-07-03] MEDS: SYMBICORT 80-4.5 MCG INHALER INHALATION SCH (21:34)
[2019-07-03] MEDS: SERAX PO SCH (23:11)
--- NOTE | 2019-07-03 23:54 | P.HPIM ---
History of Present Illness H&P Date: 07/03/19 Chief Complaint: Shortness of breath Patient is a 89-year-old female with a known history of coronary artery disease with history of stent placement, CHF with reduced ejection fraction, paroxysmal atrial fibrillation on anticoagulation with xarelto, diabetes type 2, hearing disorder/Deafness, history of [place], history of CVA/TIA, COPD, GERD and other multiple medical problems presents to ER with complaints of shortness of breath and dizziness. Patient says that yesterday evening she was standing at the sink to wash up but developed some dizziness and sharp chest pain radiating to the back. She felt very dizzy and lightheaded while she was walking outside yesterday and again happened sometime earlier this week as well. She also complains of cough with blood-tinged sputum. No jl blood. Denied any further episodes. Otherwise denied any complaints of nausea vomiting or abdominal pain and diarrhea. Denied any fall. Patient had a prior history of fall and compression fracture of the spine previously. Chest x-ray and thoracic spine x-ray showed at least 2 compression fracture at level of T10 and T11. Continuing changes of pulmonary edema. COPD. Small bi lateral pleural effusions cannot be excluded. ProBNP 4100 Troponin 1 negative. WBC 8.5 and hemoglobin 9.5. D-dimer slightly elevated 0.86. Sodium 141 potassium 3.8 and creatinine 1.68 EKG showed sinus rhythm with marked sinus arrhythmia and left bundle-branch block. Review of Systems Constitutional: Patient denies any fever or chills . No generalized weakness or weight loss. Abdomen: Patient denied nausea vomiting and diarrhea and abdominal pain. Denied any leg swelling. Cardiovascular: Patient patient does complain of chest pain. The back and dizziness no palpitations. Respiratory: patient denied any cough is from production. No shortness of breath Neurologic: Patient denied any numbness or tingling headache. Musculoskeletal: Patient denies any complaints of joint swelling or deformity. Back pain. Skin: Negative Psychiatric: Negative Endocrine: No heat or cold intolerance. No recent weight gain. Genitourinary: No dysuria or hematuria. All other 14 point ROS negative except the above Past Medical History Past Medical History: Coronary Artery Disease (CAD), Chest Pain / Angina, Heart Failure, COPD, CVA/TIA, Diabetes Mellitus, GERD/Reflux, Hearing Disorder / Deafness, Hyperlipidemia, Hypertension, Myocardial Infarction ([place]), Osteoarthritis (OA), Pneumonia, Renal Disease, Skin Disorder Additional Past Medical History / Comment(s): IDDM type II, frequent pneumonia, aspiration pneumonia with sepsis, renal insufficiency, recurrent UTIs, TIA x 3, difficulty swallowing-crushes meds and puts them in yogurt-past EGD/dilations, anemia, eczema, "lazy bowel" but pt states anymore she goes from diarrhea to constipation easily, generalized arthritis, chronic baci pain, hiatal hernia Last Myocardial Infarction Date:: 1998, 09/21/17 History of Any Multi-Drug Resistant Organisms: VRE Date of last positivie culture/infection: 10/07/17 MDRO Source:: VRE URINE Past Surgical History: Cholecystectomy, Heart Catheterization With Stent Additional Past Surgical History / Comment(s): cataracts w/lens implants, ectopic with one ovary/tube removed, heart caths :04/30/96 stent to rca, 03/18/2000 stent to mid rca, 07/22/17 stent to lad Past Anesthesia/Blood Transfusion Reactions: Previous Problems w/ Anesthesia Additional Past Anesthesia/Blood Transfusion Reaction / Comment(s): difficulty breathing after anesthesia Date of Last Stent Placement:: 06/2017 Past Psychological History: Depression Smoking Status: Former smoker Past Alcohol Use History: None Reported Past Drug Use History: None Reported - Past Family History Father History Unknown: Yes Family Medical History: Myocardial Infarction ([place]) Additional Family Medical History / Comment(s): Father had a [place] at the age of 50 yrs. He lived to be 75yrs old. Mother History Unknown: Yes Family Medical History: Myocardial Infarction ([place]) Additional Family Medical History / Comment(s): Mother of a [place] at about age 80yrs. Medications and Allergies Home Medications Medication Instructions Recorded Confirmed Type HYDROcodone/APAP 5-325MG [[place] 1 tab PO BID PRN 02/02/14 07/03/19 History 5-325] amLODIPine BESYLATE [Norvasc] 5 mg PO HS 02/02/14 07/03/19 History Ipratropium-Albuterol Nebulize 3 ml INHALATION RT-TID PRN 08/20/16 07/03/19 History [Duoneb 0.5 mg-3 mg/3 ml Soln] Montelukast [Singulair] 10 mg PO DAILY@1200 05/17/17 07/03/19 History Fluticasone/Salmeterol [Advair 1 puff INHALATION RT-BID 05/18/17 07/03/19 History 250-50 Diskus] Metoprolol Tartrate [Lopressor] 100 mg PO BID 07/18/17 07/03/19 History Sennosides [Senna] 8.6 mg PO HS 07/18/17 07/03/19 History Atorvastatin [Lipitor] 40 mg PO HS #30 tab 07/23/17 07/03/19 Rx Nitroglycerin Sl Tabs [Nitrostat] 0.4 mg SUBLINGUAL Q5M PRN #25 tab 07/23/17 07/03/19 Rx Isosorbide Mononitrate ER [Imdur] 30 mg PO DAILY #30 tab.er.24h 09/23/17 07/03/19 Rx Rivaroxaban [Xarelto] 15 mg PO HS@199912/11/17 07/03/19 History Acetaminophen [Tylenol] 1,000 mg PO Q4H PRN 05/14/18 07/03/19 History Insulin Detemir [Levemir Flextouch] 8 unit SQ DAILY@1430 05/14/18 07/03/19 History Oxazepam [Serax] 15 mg PO BID #60 capsule 10/05/18 07/03/19 Rx Furosemide [Lasix] 40 mg PO DAILY 01/08/19 07/03/19 History Ferrous Sulfate [Feosol] 325 mg PO BID #60 tab 01/13/19 07/03/19 Rx Pantoprazole [Protonix] 40 mg PO BID #60 tablet. 01/13/19 07/03/19 Rx Allergies Allergy/AdvReac Type Severity Reaction Status Date / Time amoxicillin trihydrate Allergy Unknown Verified 07/03/19 09:33 [From Augmentin] clindamycin HCl Allergy Unknown Verified 07/03/19 09:33 [From Cleocin] clindamycin palmitate HCl Allergy Unknown Verified 07/03/19 09:33 [From Cleocin] clindamycin phosphate Allergy Unknown Verified 07/03/19 09:33 [From Cleocin] codeine Allergy Unknown Verified 07/03/19 09:33 lorazepam [From Ativan] Allergy Confusion Verified 07/03/19 09:33 nitrofurantoin Allergy Unknown Verified 07/03/19 09:33 [From Macrobid] nitrofurantoin Allergy Unknown Verified 07/03/19 09:33 macrocrystalline [From Macrobid] Penicillins Allergy Unknown Verified 07/03/19 09:33 potassium clavulanate Allergy Unknown Verified 07/03/19 09:33 [From Augmentin] prednisone Allergy Unknown Verified 07/03/19 09:33 quinine Allergy Unknown Verified 07/03/19 09:33 Sulfa (Sulfonamide Allergy Unknown Verified 07/03/19 09:33 Antibiotics) sulfamethoxazole Allergy Unknown Verified 07/03/19 09:33 [From Bactrim] trimethoprim [From Bactrim] Allergy Unknown Verified 07/03/19 09:33 Physical Exam Vitals: Vital Signs Temp Pulse Pulse Resp BP BP Pulse Ox 07/03/19 14:51 97.7 F 77 18 133/77 94 L 07/03/19 11:42 70 18 123/61 97 07/03/19 09:11 98 F 74 18 157/57 96 Intake and Output 07/03/19 07/03/19 07/03/19 06:59 14:59 22:59 Other: Weight 48.534 kg PHYSICAL EXAMINATION: Patient is lying in the bed comfortably, no acute distress, awake alert and oriented.. HEENT: Normocephalic. Neck is supple. Pupils reactive. Nostrils clear. Oral cavity is moist. Ears reveal no drainage. Neck reveals no JVD, carotid bruits, or thyromegaly. CHEST EXAMINATION: Trachea is central. Symmetrical expansion. Kyphosis. Bibas ilar diminished air entry minimal bibasilar crackles. No wheezing. CARDIAC: Normal S1, S2 with no gallops. No murmurs ABDOMEN: Soft. Bowel sounds normal. No organomegaly. No abdominal bruits. Extremities: reveal no edema. No clubbing or cyanosis Neurologically awake, alert, oriented x3 with well-coordinated movements. No focal deficits noted Skin: No rash or skin lesions. Psychiatric: Coperative. Nonsuicidal Musculoskeletal: No joint swelling or deformity. Normal range of motion. Results CBC & Chem 7: 07/03/19 10:14 07/03/19 10:14 Labs: Abnormal Lab Results - Last 24 Hours (Table) 07/03/19 07/03/19 07/03/19 Range/Units 10:14 10:14 10:14 RBC 3.42 L (3.80-5.40) m/uL Hgb 9.5 L (11.4-16.0) gm/dL Hct 31.2 L (34.0-46.0) % MCHC 30.5 L (31.0-37.0) g/dL D-Dimer 0.86 H (<0.60) mg/L FEU BUN 27 H (7-17) mg/dL Creatinine 1.63 H (0.52-1.04) mg/dL Glucose 110 H (74-99) mg/dL Albumin 3.2 L (3.5-5.0) g/dL Urine Protein (Negative) Ur Leukocyte Esterase (Negative) Urine WBC (0-5) /hpf Ur Squamous Epith Cells (0-4) /hpf Amorphous Sediment (None) /hpf Urine Bacteria (None) /hpf Urine Mucus (None) /hpf 07/03/19 Range/Units 10:36 RBC (3.80-5.40) m/uL Hgb (11.4-16.0) gm/dL Hct (34.0-46.0) % MCHC (31.0-37.0) g/dL D-Dimer (<0.60) mg/L FEU BUN (7-17) mg/dL Creatinine (0.52-1.04) mg/dL Glucose (74-99) mg/dL Albumin (3.5-5.0) g/dL Urine Protein Trace H (Negative) Ur Leukocyte Esterase Moderate H (Negative) Urine WBC 7 H (0-5) /hpf Ur Squamous Epith Cells 6 H (0-4) /hpf Amorphous Sediment Rare H (None) /hpf Urine Bacteria Rare H (None) /hpf Urine Mucus Rare H (None) /hpf Thrombosis Risk Factor Assmnt - DVT/VTE Prophylaxis DVT/VTE Prophylaxis: Pharmacologic Prophylaxis ordered Assessment and Plan Assessment: Shortness of breath likely secondary to CHF and COPD. Acute on chronic CHF with systolic dysfunction. Ejection fraction 45-50%. Acute on chronic kidney disease stage III Dizziness could be related to moderate to severe mitral stenosis. Coronary artery disease with history of stent placement Paroxysmal atrial fibrillation on anticoagulation with xarelto Hypertension Hyperlipidemia Diabetes type 2 [id number] Hearing disorder/deafness History of CVA/TIA History of fall and compression fracture of T10 and T11 Plan: Patient be continued on DuoNeb's and Symbicort. No further episodes of hemoptysis. Continue with Lasix. Continue with home blood pressure medications and pain management. Continue with telemetry monitoring. Further recommendations based on the clinical course. Pulmonary is on board. PTOT to be consulted and possible rehab transfer. Time with Patient: Greater than 30
[2019-07-04] MEDS: HYDROcodone/APAP 5-325MG 1 EACH TAB PO PRN ×2 (03:06→19:50)
[2019-07-04] MEDS: IPRATROPIUM-ALBUTEROL 3 ML NEB INHALATION PRN ×4 (03:55→22:00)
[2019-07-04 06:19] LABS: Basophils # (A) 0.1 k/uL (0-0.2); Basophils % (A) 1 %; Eosinophils # (A) 0.4 k/uL (0-0.7); Eosinophils % (A) 4 %; HCT 29.3 % (34.0-46.0); HGB 9.5 gm/dL (11.4-16.0); Hypochromasia Moderate; Lymphocytes # (A) 1.4 k/uL (1.0-4.8); Lymphocytes % (A) 16 %; MCH 30.1 pg (25.0-35.0); MCHC 32.5 g/dL (31.0-37.0); MCV 92.7 fL (80.0-100.0); Mean Platelet Volume 6.6; Monocytes # (A) 0.6 k/uL (0-1.0); Monocytes % (A) 7 %; Neutrophils # (A) 5.9 k/uL (1.3-7.7); Neutrophils % (A) 69 %; Platelet Count 290 k/uL (150-450); RBC 3.16 m/uL (3.80-5.40); RDW 14.2 % (11.5-15.5); WBC 8.5 k/uL (3.8-10.6)
[2019-07-04 06:20] LABS: Glucose,Whole Blood 128 mg/dL (75-99)
[2019-07-04 07:06] LABS: Potassium 4.1 mmol/L (3.5-5.1)
[2019-07-04] MEDS: METOPROLOL TARTRATE 50 MG TAB PO SCH ×2 (08:19→19:50)
[2019-07-04] MEDS: ISOSORBIDE MONONITRATE ER 30 MG TAB.ER.24H PO SCH (08:19)
[2019-07-04] MEDS: MONTELUKAST 10 MG TAB PO SCH (08:19)
[2019-07-04] MEDS: PANTOPRAZOLE 40 MG TABLET PO SCH ×2 (08:19→19:50)
[2019-07-04] MEDS: ASPIRIN 325 MG TAB PO SCH (08:19)
[2019-07-04] MEDS: FUROSEMIDE 40 MG TAB PO SCH (08:19)
[2019-07-04] MEDS: SERAX PO SCH ×2 (08:20→21:33)
[2019-07-04] MEDS: SYMBICORT 80-4.5 MCG INHALER INHALATION SCH ×2 (08:31→22:00)
--- NOTE | 2019-07-04 11:02 | PN ---
PROGRESS NOTE This is a pulmonary/critical care progress note. DATE OF SERVICE: July 04, 2019 89-year-old female seen by myself and Dr. Leon in the emergency room yesterday. She came in with complaints of shortness of breath and was found to have acute exacerbation of chronic systolic heart failure. She also suffers from moderate to severe aortic stenosis, COPD, and history of chronic tobacco dependence, CAD with previous stent placement to the right coronary artery, atrial fibrillation, hyperlipidemia, hypertension, renal insufficiency, diabetes mellitus, deafness, and history of TIAs. When we saw her yesterday in the emergency room, she actually looks very comfortable. Her primary complaint was that of shortness of breath. She had a bit of chest congestion, a bit of a cough. She also had some mild lower extremity edema. To us, she looked relatively stable. She was not even on oxygen yesterday in the emergency room. Currently, she is feeling much better. She states her breathing is much improved. She feels like her chest has been relieved of the pressure that she was experiencing. She denies any pain though. No fever or chills. She is not coughing. Not producing any phlegm. There is no nausea, vomiting, diarrhea, or any genitourinary complaints. PHYSICAL EXAMINATION: VITAL SIGNS: Current vital signs are reviewed. Temperature is 97.5. Heart rate 70, respiratory rate 18, blood pressure 130/49, mean 76. Room air saturation 96%. GENERAL: Appears in no acute distress. HEENT examination is grossly unremarkable. Mucous membranes are moist. NECK: Supple. Full range of motion. No adenopathy. Neck veins are flat. CARDIOVASCULAR examination reveals regular rhythm and rate. S1, S2 normal. There is a soft systolic murmur, maybe grade 2/6. No S3 or S4. Heart sounds are distant. LUNGS: Reveal mostly clear breath sounds. A few scattered basilar crackles. A few scattered rhonchi on forced maneuver. No wheezes. Breath sounds equal. ABDOMEN: Soft. Bowel sounds are heard. EXTREMITIES reveal some very mild edema. There are some mild venous stasis changes. SKIN: Without rash. NEUROLOGIC: Examination is brief but nonfocal. LABORATORY DATA: Reviewed. White count 8.5, hemoglobin 9.5, hematocrit 29.3, platelet count 290,000, sodium, potassium, chloride and CO2 all normal. Anion gap normal. BUN and creatinine were 24 and 1.49. A chest x-ray from the 12 showed changes of mild pulmonary edema with very small bilateral pleural effusions. Her N terminal proBNP yesterday was 4100. Microbiology data is negative. MEDICATIONS: Reviewed. She is currently on amlodipine, aspirin, Lipitor, Symbicort, Lasix, Blanco, insulin, updrafts, Imdur, metoprolol, Singulair, sublingual nitroglycerin, Serax, Protonix, Xarelto, and Senokot. ASSESSMENT: 1. Shortness of breath, secondary to acute exacerbation of chronic systolic heart failure. 2. Moderate to severe aortic stenosis. 3. Chronic obstructive pulmonary disease, not particularly active at this time. 4. Remote history of chronic tobacco dependence. 5. History of coronary artery disease with previous stent placement to the right coronary artery. 6. Atrial fibrillation, now in normal sinus rhythm. 7. Hyperlipidemia. 8. Hypertension. 9. Acute on chronic renal failure. 10.Diabetes mellitus. 11.Deafness. 12.History of transient ischemic attack. PLAN: Overall, the patient is doing much better. She was not overwhelmingly short of breath when she came into the emergency room to begin with. She is currently on room air. Saturations are in the mid to high 90s. Her lower extremity edema is improved. She is feeling better. No additional recommendations are made. We will continue to follow. MMODL / IJN: [id number] /
[2019-07-04 12:00] LABS: Glucose,Whole Blood 175 mg/dL (75-99)
[2019-07-04] MEDS: INSULIN DETEMIR (LEVEMIR) 100 UNIT/ML SYR SQ SCH (13:46)
[2019-07-04] MEDS ORDERED: POLYETHYLENE GLYCOL 3350 17 GM POWD.PACK PO STA (15:43)
[2019-07-04 17:06] LABS: Glucose,Whole Blood 115 mg/dL (75-99)
[2019-07-04] MEDS: RIVAROXABAN 15 MG TAB PO SCH (19:50)
[2019-07-04] MEDS: ATORVASTATIN 40 MG TAB PO SCH (19:50)
[2019-07-04] MEDS: amLODIPine 5 MG TAB PO SCH (19:50)
[2019-07-04] MEDS: SENNOSIDES 8.6 MG TAB PO SCH (19:51)
--- NOTE | 2019-07-04 22:38 | P.PN ---
Subjective Progress Note Date: 07/04/19 Principal diagnosis: Acute on chronic CHF with systolic dysfunction. Patient is a 89-year-old female with a known history of coronary artery disease with history of stent placement, CHF with reduced ejection fraction, paroxysmal atrial fibrillation on anticoagulation with xarelto, diabetes type 2, hearing disorder/Deafness, history of [place], history of CVA/TIA, COPD, GERD and other multiple medical problems presents to ER with complaints of shortness of breath and dizziness. Patient says that yesterday evening she was standing at the sink to wash up but developed some dizziness and sharp chest pain radiating to the back. She felt very dizzy and lightheaded while she was walking outside yesterday and again happened sometime earlier this week as well. She also complains of cough with blood-tinged sputum. No jl blood. Denied any further episodes. Otherwise denied any complaints of nausea vomiting or abdominal pain and diarrhea. Denied any fall. Patient had a prior history of fall and compression fracture of the spine previously. Chest x-ray and thoracic spine x-ray showed at least 2 compression fracture at level of T10 and T11. Continuing changes of pulmonary edema. COPD. Small bilateral pleural effusions cannot be excluded. ProBNP 4100 Troponin 1 negative. WBC 8.5 and hemoglobin 9.5. D-dimer slightly elevated 0.86. Sodium 141 potassium 3.8 and creatinine 1.68 EKG showed sinus rhythm with marked sinus arrhythmia and left bundle-branch block. 07/04/2019 Patient says that her breathing is much better today. No complaints of chest pain. Currently saturating well on room air. Otherwise patient is still complaining of back pain which is most likely due to her compression fractures. Continue pain management and anticipate discharge in the next 24 hours. PT OT follow-up. No complains of fever or chills. No nausea vomiting or diarrhea. Tolerating oral diet. Hemodynamically stable. Current medications reviewed. Active Medications Hydrocodone Bitart/Acetaminophen ([place] 5-325) 1 each PO BID PRN PRN Reason: Pain Last Admin: 07/04/19 19:50 Dose: 1 each Documented by: Albuterol/Ipratropium (Duoneb 0.5 Mg-3 Mg/3 Ml Soln) 3 ml INHALATION RT-Q4H PRN PRN Reason: Shortness Of Breath Or Wheezing Last Admin: 10/13/19 22:00 Dose: 3 ml Documented by: Amlodipine Besylate (Norvasc) 5 mg PO HS [facility] Last Admin: 07/04/19 19:50 Dose: 5 mg Documented by: Aspirin (Aspirin) 325 mg PO DAILY [facility] Last Admin: 07/04/19 08:19 Dose: 325 mg Documented by: Atorvastatin Calcium (Lipitor) 40 mg PO HS [facility] Last Admin: 07/04/19 19:50 Dose: 40 mg Documented by: Budesonide/Formoterol Fumarate (Symbicort 80-4.5 Mcg Inhaler) 2 puff INHALATION RT-BID [facility] Last Admin: 07/04/19 22:00 Dose: 2 puff Documented by: Furosemide (Lasix) 40 mg PO DAILY [facility] Last Admin: 07/04/19 08:19 Dose: 40 mg Documented by: Insulin Detemir (Levemir) 8 unit SQ DAILY@1430 [facility] Last Admin: 07/04/19 13:46 Dose: 8 unit Documented by: Isosorbide Mononitrate (Imdur) 30 mg PO DAILY [facility] Last Admin: 07/04/19 08:19 Dose: 30 mg Documented by: Metoprolol Tartrate (Lopressor) 100 mg PO BID [facility] Last Admin: 07/04/19 19:50 Dose: 100 mg Documented by: Montelukast Sodium (Singulair) 10 mg PO DAILY@1200 [facility] Last Admin: 07/04/19 08:19 Dose: 10 mg Documented by: Nitroglycerin (Nitrostat) 0.4 mg SUBLINGUAL Q5M PRN PRN Reason: Chest Pain Last Admin: 07/03/19 14:50 Dose: 0.4 mg Documented by: Nitroglycerin (Nitrostat) 0.4 mg SUBLINGUAL Q5M PRN PRN Reason: Chest Pain Serax (Oxazepam) 15 (Mg Capsule) 15 mg PO BID [facility] Last Admin: 07/04/19 21:33 Dose: 15 mg Documented by: Pantoprazole Sodium (Protonix) 40 mg PO BID [facility] Last Admin: 07/04/19 19:50 Dose: 40 mg Documented by: Rivaroxaban (Xarelto) 15 mg PO HS@2000 [facility] Last Admin: 07/04/19 19:50 Dose: 15 mg Documented by: Senna (Senokot) 8.6 mg PO HS [facility] Last Admin: 07/04/19 19:51 Dose: 8.6 mg Documented by: Objective - Vital Signs Vital signs: Vital Signs Temp 97.9 F 07/04/19 19:54 Pulse 76 07/04/19 22:13 Resp 18 07/04/19 19:54 BP 131/70 07/04/19 19:54 Pulse Ox 97 07/04/19 22:01 Intake & Output 07/04/19 07/04/19 07/05/19 06:59 18:59 06:59 Intake Total 120 320 Balance 120 320 Weight 49.4 kg Intake: Oral 120 320 Other: # Voids 1 1 - Exam PHYSICAL EXAMINATION: Patient is lying in the bed comfortably, no acute distress, awake alert and oriented.. HEENT: Normocephalic. Neck is supple. Pupils reactive. Nostrils clear. Oral cavity is moist. Ears reveal no drainage. Neck reveals no JVD, carotid bruits, or thyromegaly. CHEST EXAMINATION: Trachea is central. Symmetrical expansion. Kyphosis. Bibasilar diminished air entry minimal bibasilar crackles. No wheezing. CARDIAC: Normal S1, S2 with no gallops. No murmurs ABDOMEN: Soft. Bowel sounds normal. No organomegaly. No abdominal bruits. Extremities: reveal no edema. No clubbing or cyanosis Neurologically awake, alert, oriented x3 with well-coordinated movements. No focal deficits noted Skin: No rash or skin lesions. Psychiatric: Coperative. Nonsuicidal Musculoskeletal: No joint swelling or deformity. Normal range of motion. - Labs CBC & Chem 7: 07/04/19 05:51 07/04/19 05:51 Labs: Abnormal Lab Results - Last 24 Hours (Table) 07/04/19 07/04/19 07/04/19 Range/Units 05:51 05:51 06:19 RBC 3.16 L (3.80-5.40) m/uL Hgb 9.5 L (11.4-16.0) gm/dL Hct 29.3 L (34.0-46.0) % BUN 24 H (7-17) mg/dL Creatinine 1.49 H (0.52-1.04) mg/dL Glucose 142 H (74-99) mg/dL POC Glucose (mg/dL) 128 H (75-99) mg/dL 07/04/19 07/04/19 Range/Units 11:56 16:56 RBC (3.80-5.40) m/uL Hgb (11.4-16.0) gm/dL Hct (34.0-46.0) % BUN (7-17) mg/dL Creatinine (0.52-1.04) mg/dL Glucose (74-99) mg/dL POC Glucose (mg/dL) 175 H 115 H (75-99) mg/dL Assessment and Plan Assessment: Shortness of breath likely secondary to CHF and COPD. Acute on chronic CHF with systolic dysfunction. Ejection fraction 45-50%. Acute on chronic kidney disease stage III Dizziness could be related to moderate to severe mitral stenosis. Improved now. Coronary artery disease with history of stent placement Paroxysmal atrial fibrillation on anticoagulation with xarelto Hypertension Hyperlipidemia Diabetes type 2 [id number] Hearing disorder/deafness History of CVA/TIA History of fall and compression fracture of T10 and T11 Acute on chronic back pain secondary to above. Plan: Patient be continued on DuoNeb's and Symbicort. No further episodes of hemoptysis. Continue with Lasix. Continue with home blood pressure medications and pain management. Continue with telemetry monitoring. Further recommendations based on the clinical course. Pulmonary is on board. PTOT to be consulted and possible rehab transfer. Time with Patient: Greater than 30
[2019-07-05 06:50] LABS: Calcium 9.2 mg/dL (8.4-10.2); Potassium 3.6 mmol/L (3.5-5.1)
[2019-07-05 07:10] LABS: Glucose,Whole Blood 74 mg/dL (75-99)
--- NOTE | 2019-07-05 08:11 | P.PN ---
Subjective Progress Note Date: 07/05/19 Principal diagnosis: Dizziness and weakness This is an 89-year-old white female essentially admitted for CHF dizziness weakness. The patient states that she has improved and has decreased shortness of breath. Question element of discharge planning. No significant chest pain s tated. Presbycusis is noted otherwise. No nausea, vomiting or diarrhea is noted. The patient seems to be tolerating diet. Objective - Vital Signs Vital signs: Vital Signs Temp 98 F 07/05/19 04:00 Pulse 73 07/05/19 04:00 Resp 18 07/05/19 04:00 BP 131/72 07/05/19 04:00 Pulse Ox 98 07/05/19 04:00 Intake & Output 07/04/19 07/05/19 07/05/19 18:59 06:59 18:59 Intake Total 320 Balance 320 Weight 52 kg Intake: Oral 320 Other: # Voids 1 - Constitutional General appearance: Present: cooperative, no acute distress - EENT Eyes: Absent: abnormal pupil - Respiratory Respiratory: bilateral: CTA - Cardiovascular Rhythm: regular Heart sounds: normal: S1, S2 Abnormal Heart Sounds: Absent: S3 Gallop - Gastrointestinal General gastrointestinal: Present: soft. Absent: tenderness - Psychiatric Psychiatric: Present: A&O x's 3 - Labs CBC & Chem 7: 07/04/19 05:51 07/05/19 05:47 Labs: Abnormal Lab Results - Last 24 Hours (Table) 07/04/19 07/04/19 07/05/19 Range/Units 11:56 16:56 05:47 BUN 24 H (7-17) mg/dL Creatinine 1.54 H (0.52-1.04) mg/dL POC Glucose (mg/dL) 175 H 115 H (75-99) mg/dL 07/05/19 Range/Units 07:09 BUN (7-17) mg/dL Creatinine (0.52-1.04) mg/dL POC Glucose (mg/dL) 74 L (75-99) mg/dL Assessment and Plan (1) CHF (congestive heart failure) Current Visit: Yes Status: Acute Code(s): I50.9 - HEART FAILURE, UNSPECIFIED SNOMED Code(s): 03786915 (2) COPD (chronic obstructive pulmonary disease) Current Visit: Yes Status: Acute Code(s): J44.9 - CHRONIC OBSTRUCTIVE PULMONARY DISEASE, UNSPECIFIED SNOMED Code(s): 26100395 (3) Dizziness Current Visit: Yes Status: Acute Code(s): R42 - DIZZINESS AND GIDDINESS SNOMED Code(s): 793687958 (4) Weakness Current Visit: Yes Status: Acute Code(s): R53.1 - WEAKNESS SNOMED Code(s): 46473423 (5) Anemia Current Visit: No Status: Acute Code(s): D64.9 - ANEMIA, UNSPECIFIED SNOMED Code(s): 696523200 (6) Hypertension Current Visit: No Status: Acute Code(s): I10 - ESSENTIAL (PRIMARY) HYPERTENSION SNOMED Code(s): 77219400 Plan: Increase ambulation. Discharge planning element. New pack check CMP in a.m. Anticipate discharge in the next 24 hours.
[2019-07-05] MEDS: SYMBICORT 80-4.5 MCG INHALER INHALATION SCH (08:29)
[2019-07-05] MEDS: IPRATROPIUM-ALBUTEROL 3 ML NEB INHALATION PRN ×2 (08:29→11:40)
[2019-07-05] MEDS: ISOSORBIDE MONONITRATE ER 30 MG TAB.ER.24H PO SCH (08:36)
[2019-07-05] MEDS: FUROSEMIDE 40 MG TAB PO SCH (08:36)
[2019-07-05] MEDS: ASPIRIN 325 MG TAB PO SCH (08:36)
[2019-07-05] MEDS: METOPROLOL TARTRATE 50 MG TAB PO SCH (08:36)
[2019-07-05] MEDS: PANTOPRAZOLE 40 MG TABLET PO SCH (08:36)
[2019-07-05] MEDS: SERAX PO SCH (08:36)
[2019-07-05 08:49] VITALS: BP 160/77
[2019-07-05 11:16] LABS: Glucose,Whole Blood 110 mg/dL (75-99)
[2019-07-05] MEDS: MONTELUKAST 10 MG TAB PO SCH (12:17)
[2019-07-05] MEDS: HYDROcodone/APAP 5-325MG 1 EACH TAB PO PRN (12:18)
--- NOTE | 2019-07-05 13:54 | P.DS ---
Providers Date of admission: 07/03/19 12:40 Attending physician: Georgi Thayer Consults: 07/03/19 12:27 Consult Physician Stat Consulting Provider: [place] Consult Reason/Comments: COPD, pleural effusion, hemoptysis Do you want consulting provider notified?: Yes Primary care physician: Georgi Thayer - Discharge Diagnosis(es) (1) CHF (congestive heart failure) Current Visit: Yes Status: Acute (2) COPD (chronic obstructive pulmonary disease) Current Visit: Yes Status: Acute (3) Dizziness Current Visit: Yes Status: Acute (4) Weakness Current Visit: Yes Status: Acute (5) Anemia Current Visit: No Status: Acute (6) Hypertension Current Visit: No Status: Acute Hospital Course: This is discharge from an 89-year-old white female essentially admitted for weakness and dizziness. Workup with pulmonology and general medicine revealed no significant problems ambulating on discharge. The patient was tolerating diet and had no voiding difficulties. The patient has multiple comorbidities related to age but will be discharged in nominal condition to follow-up with me in about 1 week. Patient Condition at Discharge: Stable Plan - Discharge Summary New Discharge Prescriptions: Continue amLODIPine BESYLATE [Norvasc] 5 mg PO HS HYDROcodone/APAP 5-325MG [[place] 5-325] 1 tab PO BID PRN PRN Reason: Pain Ipratropium-Albuterol Nebulize [Duoneb 0.5 mg-3 mg/3 ml Soln] 3 ml INHALATION RT-TID PRN PRN Reason: Shortness Of Breath Montelukast [Singulair] 10 mg PO DAILY@1200 Fluticasone/Salmeterol [Advair 250-50 Diskus] 1 puff INHALATION RT-BID Metoprolol Tartrate [Lopressor] 100 mg PO BID Sennosides [Senna] 8.6 mg PO HS Atorvastatin [Lipitor] 40 mg PO HS #30 tab Nitroglycerin Sl Tabs [Nitrostat] 0.4 mg SUBLINGUAL Q5M PRN #25 tab PRN Reason: Chest Pain Isosorbide Mononitrate ER [Imdur] 30 mg PO DAILY #30 tab.er.24h Rivaroxaban [Xarelto] 15 mg PO HS@2000 Acetaminophen [Tylenol] 1,000 mg PO Q4H PRN PRN Reason: Pain Insulin Detemir [Levemir Flextouch] 8 unit SQ DAILY@1430 Oxazepam [Serax] 15 mg PO BID #60 capsule Furosemide [Lasix] 40 mg PO DAILY Ferrous Sulfate [Feosol] 325 mg PO BID #60 tab Pantoprazole [Protonix] 40 mg PO BID #60 tablet. Discharge Medication List HYDROcodone/APAP 5-325MG [[place] 5-325] 1 tab PO BID PRN 02/02/14 [History] amLODIPine BESYLATE [Norvasc] 5 mg PO HS 02/02/14 [History] Ipratropium-Albuterol Nebulize [Duoneb 0.5 mg-3 mg/3 ml Soln] 3 ml INHALATION RT-TID PRN 08/20/16 [History] Montelukast [Singulair] 10 mg PO DAILY@1200 05/17/17 [History] Fluticasone/Salmeterol [Advair 250-50 Diskus] 1 puff INHALATION RT-BID 05/18/17 [History] Metoprolol Tartrate [Lopressor] 100 mg PO BID 07/18/17 [History] Sennosides [Senna] 8.6 mg PO HS 07/18/17 [History] Atorvastatin [Lipitor] 40 mg PO HS #30 tab 07/23/17 [Rx] Nitroglycerin Sl Tabs [Nitrostat] 0.4 mg SUBLINGUAL Q5M PRN #25 tab 07/23/17 [Rx] Isosorbide Mononitrate ER [Imdur] 30 mg PO DAILY #30 tab.er.24h 09/23/17 [Rx] Rivaroxaban [Xarelto] 15 mg PO HS@199912/11/17 [History] Acetaminophen [Tylenol] 1,000 mg PO Q4H PRN 05/14/18 [History] Insulin Detemir [Levemir Flextouch] 8 unit SQ DAILY@1430 05/14/18 [History] Oxazepam [Serax] 15 mg PO BID #60 capsule 10/05/18 [Rx] Furosemide [Lasix] 40 mg PO DAILY 01/08/19 [History] Ferrous Sulfate [Feosol] 325 mg PO BID #60 tab 01/13/19 [Rx] Pantoprazole [Protonix] 40 mg PO BID #60 tablet. 01/13/19 [Rx] Follow up Appointment(s)/Referral(s): Georgi Thayer MD [Primary Care Provider] - 1-2 days Discharge Disposition: HOME SELF-CARE
[2019-07-05 14:18] VITALS: BMI 23.1
[2019-07-05 14:24] VITALS: PULSE 68; TEMP 98.4
[2019-07-05] MEDS: INSULIN DETEMIR (LEVEMIR) 100 UNIT/ML SYR SQ SCH (14:49)
--- NOTE | 2019-07-05 18:55 | P.PN ---
Subjective Progress Note Date: 07/05/19 This 89-year-old here patient is doing better. She has no specific complaints. Less short of breath. Sitting up on a chair. No cough sputum production chest tightness or wheezing. She was on Lasix. She is adequately. She still has some limited crackles in lung bases. She has CHF with ejection fraction 45% and she has to moderate to severe aortic stenosis. She is in atrial fibrillation the rate is controlled. She is on long-term anticoagulation with Xarelto. She also has a component of chronic kidney disease. Creatinine stable at 1.5. Objective - Vital Signs Vital signs: Vital Signs Temp 98.4 F 07/05/19 12:00 Pulse 68 07/05/19 12:00 Resp 18 07/05/19 12:00 BP 160/77 07/05/19 08:42 Pulse Ox 97 07/05/19 12:00 Intake & Output 07/04/19 07/05/19 07/05/19 18:59 06:59 18:59 Intake Total 320 175 Balance 320 175 Weight 52 kg 52 kg Intake: Oral 320 175 Other: # Voids 1 3 - Exam GENERAL EXAM: Alert, pleasant 89-year-old female patient, comfortable in no apparent distress. On room air. HEAD: Normocephalic. EYES: Normal reaction of pupils, equal size. NOSE: Clear with pink turbinates. THROAT: No erythema or exudates. NECK: No masses, no JVD. CHEST: No chest wall deformity. LUNGS: Equal air entry with faint crackles in the posterior bases. Diminished. CVS: S1 and S2 normal with no audible murmur, irregular rhythm ABDOMEN: No hepatosplenomegaly, normal bowel sounds, no guarding or rigidity. SPINE: No scoliosis or deformity SKIN: No rashes CENTRAL NERVOUS SYSTEM: No focal deficits, tone is normal in all 4 extremities. EXTREMITIES: There is no peripheral edema. No clubbing, no cyanosis. Peripheral pulses are intact. - Labs CBC & Chem 7: 07/04/19 05:51 07/05/19 05:47 Labs: Abnormal Lab Results - Last 24 Hours (Table) 07/05/19 07/05/19 07/05/19 Range/Units 05:47 07:09 11:14 BUN 24 H (7-17) mg/dL Creatinine 1.54 H (0.52-1.04) mg/dL POC Glucose (mg/dL) 74 L 110 H (75-99) mg/dL Assessment and Plan Plan: #1 Acute exacerbation of chronic systolic congestive heart failure with impaired left ventricular systolic function ejection fraction 45-50%. #2 Moderate to severe aortic stenosis. #3 Achronic obstructive pulmonary disease. #4 Remote history of chronic tobacco dependence. #5 History of coronary artery disease with previous stent placement to the RCA. #6 Atrial fibrillation, anticoagulated with Xarelto. #7 Hyperlipidemia. #8 Hypertension. #9 Acute on chronic renal failure. #10 Diabetes mellitus. #11 Hearing disorder. #12 History of TIAs. Plan: Patient is doing well. No symptoms of respiratory distress. She was a congestion heart failure due to mild CHF with systolic heart failure and moderate degree of aortic stenosis. The patient will be discharged home today. She'll be taken oral Lasix 40 mg by mouth daily. She has history of atrial fibrillation the rate is controlled with metoprolol and the patient on long-term anticoagulation. No active issues for now. Follow-up with Dr. Thayer the primary care physician. Follow-up with cardiology.
== END 2019-07-05 16:34 | disposition home or self-care (01) ==
LOC: EC 09:09 → 3SCARD 12:40
PROVIDERS: ADMIT Family Medicine; ATTEND Family Medicine
DX: I13.0 Hypertensive heart and chronic kidney disease with heart failure and stage 1 through stage 4 chronic kidney disease, or unspecified chronic kidney disease (principal); I50.43 Acute on chronic combined systolic (congestive) and diastolic (congestive) heart failure; N18.3 Chronic kidney disease, stage 3 (moderate); J44.9 Chronic obstructive pulmonary disease, unspecified; R79.89 Other specified abnormal findings of blood chemistry; I48.0 Paroxysmal atrial fibrillation; I44.7 Left bundle-branch block, unspecified; I35.0 Nonrheumatic aortic (valve) stenosis; N17.9 Acute kidney failure, unspecified; E11.22 Type 2 diabetes mellitus with diabetic chronic kidney disease; I25.10 Atherosclerotic heart disease of native coronary artery without angina pectoris; M48.54XA Collapsed vertebra, not elsewhere classified, thoracic region, initial encounter for fracture; K21.9 Gastro-esophageal reflux disease without esophagitis; R42 Dizziness and giddiness; R53.1 Weakness; R51 Headache; F32.9 Major depressive disorder, single episode, unspecified; E78.5 Hyperlipidemia, unspecified; D64.9 Anemia, unspecified; H91.10 Presbycusis, unspecified ear; I49.8 Other specified cardiac arrhythmias; K59.00 Constipation, unspecified; K44.9 Diaphragmatic hernia without obstruction or gangrene; R13.10 Dysphagia, unspecified; L30.9 Dermatitis, unspecified; M15.9 Polyosteoarthritis, unspecified; R04.2 Hemoptysis; G89.29 Other chronic pain; M85.88 Other specified disorders of bone density and structure, other site; M54.9 Dorsalgia, unspecified; Z79.01 Long term (current) use of anticoagulants; Z79.4 Long term (current) use of insulin; Z79.51 Long term (current) use of inhaled steroids; Z79.891 Long term (current) use of opiate analgesic; Z79.899 Other long term (current) drug therapy; Z88.1 Allergy status to other antibiotic agents; Z88.5 Allergy status to narcotic agent; Z88.0 Allergy status to penicillin; Z88.2 Allergy status to sulfonamides; Z88.8 Allergy status to other drugs, medicaments and biological substances; Z87.891 Personal history of nicotine dependence; Z86.73 Personal history of transient ischemic attack (TIA), and cerebral infarction without residual deficits; Z95.5 Presence of coronary angioplasty implant and graft; Z16.21 Resistance to vancomycin; I25.2 Old myocardial infarction; Z91.81 History of falling; Z90.49 Acquired absence of other specified parts of digestive tract; Z98.42 Cataract extraction status, left eye; Z98.41 Cataract extraction status, right eye; Z96.1 Presence of intraocular lens; Z90.79 Acquired absence of other genital organ(s); Z87.01 Personal history of pneumonia (recurrent); Z87.440 Personal history of urinary (tract) infections; Z86.19 Personal history of other infectious and parasitic diseases; Z90.721 Acquired absence of ovaries, unilateral; Z82.49 Family history of ischemic heart disease and other diseases of the circulatory system
CPT/HCPCS: 93005 ×2; 96361; 96374; 99285; 36415; 94640 ×6; 94760; 97116; 97162; 97165; 85379; 83880; 80061; 80053; 80048 ×2; 83735; 84484; 85025 ×2; 85610; 85730; 81001; 72070; 71046; G0378 ×3; J2270

== ENCOUNTER 2019-07-19 07:44 | Emergency (ER) | payer MEDICARE ==
[2019-07-19 07:53] VITALS: RESP 18; TEMP 97.5
[2019-07-19] MEDS ORDERED: SODIUM CHLORIDE 0.9% 1,000 ML IV STA ×2 (08:26)
--- NOTE | 2019-07-19 08:36 | ED ---
Abdominal Pain HPI - General Chief Complaint: Abdominal Pain Stated Complaint: ABDOMINAL PAIN Time Seen by Provider: 07/19/19 07:56 Source: patient, RN notes reviewed, old records reviewed Mode of arrival: ambulatory Limitations: no limitations - History of Present Illness Initial Comments: Patient is a 89-year-old female presents emergency department today for chief complaint of right lower quadrant abdominal pain. She states that she has been having this abdominal pain since her last admission to the hospital on 1012. She reports she has a history of constipation. She states that she did have a small bowel movement yesterday. She complains of some nausea. She was just general abdominal distention and fullness. Patient states that she has had no changes in urination. She denies any specific back pain. Patient is here with her daughter. - Related Data Home Medications Medication Instructions Recorded Confirmed HYDROcodone/APAP 5-325MG [[place] 1 tab PO BID PRN 02/02/14 07/19/19 5-325] amLODIPine BESYLATE [Norvasc] 5 mg PO HS 02/02/14 07/19/19 Ipratropium-Albuterol Nebulize 3 ml INHALATION RT-TID PRN 08/20/16 07/19/19 [Duoneb 0.5 mg-3 mg/3 ml Soln] Montelukast [Singulair] 10 mg PO DAILY@1200 05/17/17 07/19/19 Fluticasone/Salmeterol [Advair 1 puff INHALATION RT-BID 05/18/17 07/19/19 250-50 Diskus] Metoprolol Tartrate [Lopressor] 100 mg PO BID 07/18/17 07/19/19 Sennosides [Senna] 8.6 mg PO HS 07/18/17 07/19/19 Rivaroxaban [Xarelto] 15 mg PO HS@199912/11/17 07/19/19 Acetaminophen [Tylenol] 1,000 mg PO Q4H PRN 05/14/18 07/19/19 Insulin Detemir [Levemir Flextouch] 8 unit SQ DAILY@1430 05/14/18 07/19/19 Furosemide [Lasix] 40 mg PO DAILY 01/08/19 07/19/19 Previous Rx's Medication Instructions Recorded Atorvastatin [Lipitor] 40 mg PO HS #30 tab 07/23/17 Nitroglycerin Sl Tabs [Nitrostat] 0.4 mg SUBLINGUAL Q5M PRN #25 tab 07/23/17 Isosorbide Mononitrate ER [Imdur] 30 mg PO DAILY #30 tab.er.24h 09/23/17 Oxazepam [Serax] 15 mg PO BID #60 capsule 10/05/18 Ferrous Sulfate [Feosol] 325 mg PO BID #60 tab 01/13/19 Pantoprazole [Protonix] 40 mg PO BID #60 tablet.dr 01/13/19 Allergies Allergy/AdvReac Type Severity Reaction Status Date / Time amoxicillin trihydrate Allergy Unknown Verified 07/19/19 07:49 [From Augmentin] clindamycin HCl Allergy Unknown Verified 07/19/19 07:49 [From Cleocin] clindamycin palmitate HCl Allergy Unknown Verified 07/19/19 07:49 [From Cleocin] clindamycin phosphate Allergy Unknown Verified 07/19/19 07:49 [From Cleocin] codeine Allergy Unknown Verified 07/19/19 07:49 nitrofurantoin Allergy Unknown Verified 07/19/19 07:49 [From Macrobid] nitrofurantoin Allergy Unknown Verified 07/19/19 07:49 macrocrystalline [From Macrobid] Penicillins Allergy Unknown Verified 07/19/19 07:49 potassium clavulanate Allergy Unknown Verified 07/19/19 07:49 [From Augmentin] prednisone Allergy Unknown Verified 07/19/19 07:49 quinine Allergy Unknown Verified 07/19/19 07:49 Sulfa (Sulfonamide Allergy Unknown Verified 07/19/19 07:49 Antibiotics) sulfamethoxazole Allergy Unknown Verified 07/19/19 07:49 [From Bactrim] trimethoprim [From Bactrim] Allergy Unknown Verified 07/19/19 07:49 lorazepam [From Ativan] AdvReac Confusion Verified 07/19/19 08:17 Review of Systems ROS Statement: Those systems with pertinent positive or pertinent negative responses have been documented in the HPI. ROS Other: All systems not noted in ROS Statement are negative. Past Medical History Past Medical History: Coronary Artery Disease (CAD), Chest Pain / Angina, Heart Failure, COPD, CVA/TIA, Diabetes Mellitus, GERD/Reflux, Hearing Disorder / Deafness, Hyperlipidemia, Hypertension, Myocardial Infarction (ID), Osteoarthritis (OA), Pneumonia, Renal Disease, Skin Disorder Additional Past Medical History / Comment(s): IDDM type II, frequent pneumonia, aspiration pneumonia with sepsis, renal insufficiency, recurrent UTIs, TIA x 3, difficulty swallowing-crushes meds and puts them in yogurt-past EGD/dilations, anemia, eczema, "lazy bowel" but pt states anymore she goes from diarrhea to constipation easily, generalized arthritis, chronic baci pain, hiatal hernia Last Myocardial Infarction Date:: 1998, 09/21/17 History of Any Multi-Drug Resistant Organisms: VRE Date of last positivie culture/infection: 10/07/17 MDRO Source:: VRE URINE Past Surgical History: Cholecystectomy, Heart Catheterization With Stent Additional Past Surgical History / Comment(s): cataracts w/lens implants, ectopic with one ovary/tube removed, heart caths :04/30/96 stent to rca, 03/18/2000 stent to mid rca, 07/22/17 stent to lad Past Anesthesia/Blood Transfusion Reactions: Previous Problems w/ Anesthesia Additional Past Anesthesia/Blood Transfusion Reaction / Comment(s): difficulty breathing after anesthesia Date of Last Stent Placement:: 06/2017 Past Psychological History: Depression Smoking Status: Former smoker Past Alcohol Use History: None Reported Past Drug Use History: None Reported - Past Family History Father History Unknown: Yes Family Medical History: Myocardial Infarction (ID) Additional Family Medical History / Comment(s): Father had a ID at the age of 50 yrs. He lived to be 75yrs old. Mother History Unknown: Yes Family Medical History: Myocardial Infarction (ID) Additional Family Medical History / Comment(s): Mother of a ID at about age 80yrs. General Exam - General Exam Comments Initial Comments: 89-year-old female. Frail. Limitations: no limitations Head exam: Present: atraumatic, normocephalic, normal inspection Eye exam: Present: normal appearance ENT exam: Present: normal exam, mucous membranes moist Neck exam: Present: normal inspection. Absent: tenderness, meningismus, lymphadenopathy Respiratory exam: Present: normal lung sounds bilaterally. Absent: respiratory distress, wheezes, rales, rhonchi, stridor Cardiovascular Exam: Present: regular rate, normal rhythm, normal heart sounds. Absent: systolic murmur, diastolic murmur, rubs, gallop, clicks GI/Abdominal exam: Present: distended, normal bowel sounds, hyperactive bowel sounds. Absent: soft, tenderness, guarding, rebound, rigid Extremities exam: Present: normal inspection, full ROM, normal capillary refill. Absent: tenderness, pedal edema, joint swelling, calf tenderness Back exam: Present: normal inspection Neurological exam: Present: alert, oriented X3, CN II-XII intact Psychiatric exam: Present: normal affect, normal mood Course Vital Signs 07/19/19 07/19/19 07/19/19 07:49 10:00 11:00 Temperature 97.5 F L Pulse Rate 82 80 80 Respiratory 18 18 18 Rate Blood Pressure 144/71 140/75 156/70 O2 Sat by Pulse 93 L 98 98 Oximetry 07/19/19 11:52 Temperature Pulse Rate 80 Respiratory 18 Rate Blood Pressure 162/92 O2 Sat by Pulse 98 Oximetry Medical Decision Making - Lab Data Result diagrams: 07/19/19 08:42 07/19/19 08:42 Lab Results 07/19/19 07/19/19 07/19/19 Range/Units 08:42 08:42 08:42 WBC 8.9 (3.8-10.6) k/uL RBC 3.46 L (3.80-5.40) m/uL Hgb 9.3 L (11.4-16.0) gm/dL Hct 29.7 L (34.0-46.0) % MCV 85.8 D (80.0-100.0) fL MCH 26.9 (25.0-35.0) pg MCHC 31.4 (31.0-37.0) g/dL RDW 13.5 (11.5-15.5) % Plt Count 437 (150-450) k/uL Neutrophils % 59 % Lymphocytes % 24 % Monocytes % 7 % Eosinophils % 7 % Basophils % 2 % Neutrophils # 5.2 (1.3-7.7) k/uL Lymphocytes # 2.1 (1.0-4.8) k/uL Monocytes # 0.6 (0-1.0) k/uL Eosinophils # 0.6 (0-0.7) k/uL Basophils # 0.2 (0-0.2) k/uL Hypochromasia Slight PT 10.9 (9.0-12.0) sec INR 1.0 (<1.2) APTT 32.8 H (22.0-30.0) sec Sodium 140 (137-145) mmol/L Potassium 4.4 (3.5-5.1) mmol/L Chloride 106 (98-107) mmol/L Carbon Dioxide 26 (22-30) mmol/L Anion Gap 8 mmol/L BUN 27 H (7-17) mg/dL Creatinine 1.51 H (0.52-1.04) mg/dL Est GFR (CKD-EPI)AfAm 36 (>60 ml/min/1.73 sqM) Est GFR (CKD-EPI)NonAf 31 (>60 ml/min/1.73 sqM) Glucose 88 (74-99) mg/dL Calcium 9.1 (8.4-10.2) mg/dL Total Bilirubin 0.3 (0.2-1.3) mg/dL AST 34 (14-36) U/L ALT 17 (9-52) U/L Alkaline Phosphatase 133 H (38-126) U/L Total Protein 7.0 (6.3-8.2) g/dL Albumin 3.2 L (3.5-5.0) g/dL Amylase 58 (30-110) U/L Lipase 167 (23-300) U/L Urine Color Urine Appearance (Clear) Urine pH (5.0-8.0) Ur Specific [place] (1.001-1.035) Urine Protein (Negative) Urine Glucose (UA) (Negative) Urine Ketones (Negative) Urine Blood (Negative) Urine Nitrite (Negative) Urine Bilirubin (Negative) Urine Urobilinogen (<2.0) mg/dL Ur Leukocyte Esterase (Negative) 07/19/19 Range/Units 08:42 WBC (3.8-10.6) k/uL RBC (3.80-5.40) m/uL Hgb (11.4-16.0) gm/dL Hct (34.0-46.0) % MCV (80.0-100.0) fL MCH (25.0-35.0) pg MCHC (31.0-37.0) g/dL RDW (11.5-15.5) % Plt Count (150-450) k/uL Neutrophils % % Lymphocytes % % Monocytes % % Eosinophils % % Basophils % % Neutrophils # (1.3-7.7) k/uL Lymphocytes # (1.0-4.8) k/uL Monocytes # (0-1.0) k/uL Eosinophils # (0-0.7) k/uL Basophils # (0-0.2) k/uL Hypochromasia PT (9.0-12.0) sec INR (<1.2) APTT (22.0-30.0) sec Sodium (137-145) mmol/L Potassium (3.5-5.1) mmol/L Chloride (98-107) mmol/L Carbon Dioxide (22-30) mmol/L Anion Gap mmol/L BUN (7-17) mg/dL Creatinine (0.52-1.04) mg/dL Est GFR (CKD-EPI)AfAm (>60 ml/min/1.73 sqM) Est GFR (CKD-EPI)NonAf (>60 ml/min/1.73 sqM) Glucose (74-99) mg/dL Calcium (8.4-10.2) mg/dL Total Bilirubin (0.2-1.3) mg/dL AST (14-36) U/L ALT (9-52) U/L Alkaline Phosphatase (38-126) U/L Total Protein (6.3-8.2) g/dL Albumin (3.5-5.0) g/dL Amylase (30-110) U/L Lipase (23-300) U/L Urine Color Yellow Urine Appearance Clear (Clear) Urine pH 6.5 (5.0-8.0) Ur Specific [place] 1.013 (1.001-1.035) Urine Protein Trace H (Negative) Urine Glucose (UA) Negative (Negative) Urine Ketones Negative (Negative) Urine Blood Negative (Negative) Urine Nitrite Negative (Negative) Urine Bilirubin Negative (Negative) Urine Urobilinogen <2.0 (<2.0) mg/dL Ur Leukocyte Esterase Negative (Negative) - Radiology Data Radiology results: report reviewed KUB is shows correlate for ileus or enteritis. Follow-up of this obstruction is suspected. Disposition Clinical Impression: Right lateral abdominal pain, Ileus Disposition: HOME SELF-CARE Condition: Stable Instructions (If sedation given, give patient instructions): Ileus (ED) Additional Instructions: Patient advised to the magnesium citrate to help promote bowel movements. Recommended avoiding using her narcotic pain medications this will contribute to ileus. Return to the emergency department if any alarming signs or symptoms occur. Is patient prescribed a controlled substance at d/c from ED?: No Referrals: Georgi Thayer MD [Primary Care Provider] - 1-2 days Kristy Cha MD [STAFF PHYSICIAN] - 1-2 days Time of Disposition: 12:26
[2019-07-19 09:04] LABS: Partial Thromboplastin Time 32.8 sec (22.0-30.0); Prothrombin Time 10.9 sec (9.0-12.0)
[2019-07-19 09:11] LABS: Basophils # (A) 0.2 k/uL (0-0.2); Basophils % (A) 2 %; Eosinophils # (A) 0.6 k/uL (0-0.7); Eosinophils % (A) 7 %; HCT 29.7 % (34.0-46.0); HGB 9.3 gm/dL (11.4-16.0); Hypochromasia Slight; Lymphocytes # (A) 2.1 k/uL (1.0-4.8); Lymphocytes % (A) 24 %; MCH 26.9 pg (25.0-35.0); MCHC 31.4 g/dL (31.0-37.0); MCV 85.8 fL (80.0-100.0); Mean Platelet Volume 6.3; Monocytes # (A) 0.6 k/uL (0-1.0); Monocytes % (A) 7 %; Neutrophils # (A) 5.2 k/uL (1.3-7.7); Neutrophils % (A) 59 %; Platelet Count 437 k/uL (150-450); RBC 3.46 m/uL (3.80-5.40); RDW 13.5 % (11.5-15.5); WBC 8.9 k/uL (3.8-10.6)
--- NOTE | 2019-07-19 09:20 | XR ---
KUB HISTORY: Abdominal pain Frontal KUB submitted and correlated to prior exam 10/20/2018 Scoliotic curvature of the spine is again noted, there are surgical clips in the right upper quadrant . Air-fluid level noted in the left upper quadrant. There are air-filled loops of small bowel present with air-fluid levels present. Bone mineralization is reduced. Vascular calcifications are present. Lung bases show probable interstitial changes. There may be cardiomegaly. No pneumoperitoneum. IMPRESSION: Correlate for ileus or enteritis, follow-up if obstruction is suspected.
[2019-07-19 09:21] LABS: Albumin 3.2 g/dL (3.5-5.0); Calcium 9.1 mg/dL (8.4-10.2); Potassium 4.4 mmol/L (3.5-5.1); Total Bilirubin 0.3 mg/dL (0.2-1.3)
[2019-07-19 09:40] LABS: Appearance,Urine Clear (Clear); Bilirubin,Urine Negative (Negative); Blood,Urine Negative (Negative); Color,Urine Yellow; Glucose,Urine (UA) Negative (Negative); Ketones,Urine Negative (Negative); Leukocyte Esterase,Urine Negative (Negative); Nitrite,Urine Negative (Negative); PH, Urine 6.5 (5.0-8.0); Protein,Urine Trace (Negative); Specific Gravity,Urine 1.013 (1.001-1.035); Urobilinogen,Urine <2.0 mg/dL (<2.0)
[2019-07-19 10:40] VITALS: PULSE 80
--- NOTE | 2019-07-19 10:43 | CT ---
EXAMINATION TYPE: CT abdomen pelvis wo con DATE OF EXAM: 07/19/2019 COMPARISON: PET/CT 12/19/2018 INDICATION: Generalized pain and bloating. ileus vs obstruction DLP: 407.4 mGycm, Automated exposure control for dose reduction was used. CONTRAST: 0 mL of Isovue 300. Study performed without Oral Contrast TECHNIQUE: Axial images were obtained from above the diaphragm to the pubic rami in the axial plane a t 5 mm thick sections. Reconstructed images are reviewed on the computer in the coronal plane. FINDINGS: Limited CT sections are obtained the lung bases. There are areas of increased density at the right l andre base within right middle lobe posterior lateral right lower lobe. Correlate for atelectasis. Pneu monia could be considered. There is calcified granuloma at the left costophrenic angle posterolateral ly. CT ABDOMEN: Liver: Normal Spleen: Multiple calcified granulomata within the spleen. Pancreas: Normal Adrenal glands: The adrenal glands are normal. Gallbladder: Normal Kidneys: No masses are evident. No hydronephrosis is present. Multiple cysts are present. This incl udes exophytic cyst at the inferior pole left kidney measuring 1.7 cm and 3 Hounsfield units, 2.3 cm and 4 Hounsfield units and anterior right mid renal cyst measuring 3.8 cm and 7 Hounsfield units. Non obstructing renal stone is in the middle right kidney measuring 0.3 cm. There appear to be vascular c alcifications within the left kidney. No obstructing renal stones are evident. Aorta: Vascular calcification is within the aorta. Inferior vena cava: Normal. CT PELVIS: Periumbilical hernia is present containing mesenteric fat. There are some small bowel loops which are at the upper limits of normal for size in the left mid and lower quadrants. Remaining small bowel loops appear normal. Air and fecal debris is within the colon . Suspicious dilated loops of small bowel are not evident. Study is performed without oral contrast l imiting bowel evaluation. Appendix: Not identified. No suspicious tubular structures or inflammatory changes are evident. Coupl e of small right lower quadrant mesenteric lymph nodes are present. Urinary bladder: Distended. Genitourinary structures: Uterus appears normal. Adnexal regions are clear. Osseous structures: No suspicious lytic or sclerotic lesions. IMPRESSIONS: 1. Right lower lobe atelectasis or pneumonia. Follow-up is recommended. 2. Periumbilical fat-containing hernia. 3. Nonobstructing right renal stone. 4. Renal cysts. 5. No suspicious changes for obstruction. Some mild small bowel ileus could be considered.
[2019-07-19] MEDS ORDERED: MORPHINE SULFATE 4 MG/ML SYRINGE IVP STA (11:27)
[2019-07-19] MEDS ORDERED: MAGNESIUM CITRATE 296 ML BOTTLE PO ONE (12:26)
[2019-07-19 12:39] VITALS: BP 162/84
== END 2019-07-19 12:38 | disposition home or self-care (01) ==
LOC: EC 07:44
DX: K56.7 Ileus, unspecified (principal); I25.119 Atherosclerotic heart disease of native coronary artery with unspecified angina pectoris; I11.0 Hypertensive heart disease with heart failure; I50.9 Heart failure, unspecified; J44.9 Chronic obstructive pulmonary disease, unspecified; E11.9 Type 2 diabetes mellitus without complications; K21.9 Gastro-esophageal reflux disease without esophagitis; E78.5 Hyperlipidemia, unspecified; I25.2 Old myocardial infarction; F32.9 Major depressive disorder, single episode, unspecified; Z79.01 Long term (current) use of anticoagulants; Z79.4 Long term (current) use of insulin; Z79.899 Other long term (current) drug therapy; Z88.0 Allergy status to penicillin; Z88.1 Allergy status to other antibiotic agents; Z88.2 Allergy status to sulfonamides; Z88.5 Allergy status to narcotic agent; Z88.8 Allergy status to other drugs, medicaments and biological substances; Z95.5 Presence of coronary angioplasty implant and graft
CPT/HCPCS: 36415; 80053; 82150; 83690; 85025; 85610; 85730; 81003; 74018; 74176; 99285; 96374; 96361 ×4; J2270

== ENCOUNTER → 2019-08-31 | Outpatient (CLI) | payer MEDICARE ==
[2019-08-31 16:37] LABS: Basophils # (A) 0.1 k/uL (0-0.2); Basophils % (A) 1 %; Eosinophils # (A) 0.3 k/uL (0-0.7); Eosinophils % (A) 3 %; HCT 24.2 % (34.0-46.0); Hypochromasia Marked; Lymphocytes # (A) 2.1 k/uL (1.0-4.8); Lymphocytes % (A) 21 %; MCH 23.6 pg (25.0-35.0); MCHC 29.8 g/dL (31.0-37.0); Mean Platelet Volume 7.1; Monocytes # (A) 0.6 k/uL (0-1.0); Monocytes % (A) 6 %; Neutrophils # (A) 6.6 k/uL (1.3-7.7); Neutrophils % (A) 67 %; Platelet Count 519 k/uL (150-450); Poikilocytosis Slight; RBC 3.06 m/uL (3.80-5.40); RDW 14.3 % (11.5-15.5); WBC 9.9 k/uL (3.8-10.6)
[2019-08-31 16:38] LABS: HGB 7.2 gm/dL (11.4-16.0)
[2019-08-31 16:48] LABS: Appearance,Urine Clear (Clear); Bilirubin,Urine Negative (Negative); Blood,Urine Negative (Negative); Color,Urine Yellow; Glucose,Urine (UA) Negative (Negative); Hyaline Casts,Urine 1 /lpf (0-2); Ketones,Urine Negative (Negative); Leukocyte Esterase,Urine Trace (Negative); Mucus,Urine Rare /hpf; Nitrite,Urine Negative (Negative); PH, Urine 6.5 (5.0-8.0); Protein,Urine Trace (Negative); Specific Gravity,Urine 1.013 (1.001-1.035); Squamous Epithelial Cell,Urine 2 /hpf (0-4); Urobilinogen,Urine <2.0 mg/dL (<2.0); WBC,Urine 7 /hpf (0-5)
[2019-09-01 01:42] LABS: % Iron Saturation 2.62 (12.00-45.00); African American GFR (CKD) 23.9 (60.0-200.0); Albumin 3.7 g/dL (3.80-4.90); Anion Gap 11.1 mmol/L (4.00-12.00); BUN/Creat Ratio 16.67 Ratio (12.00-20.00); Carbon Dioxide 25.9 mmol/L (21.6-31.8); Magnesium 2.1 mg/dL (1.5-2.4); Non-African American GFR(CKD) 20.6 (60.0-200.0); Phosphorus 4.6 mg/dL (2.4-5.1); Potassium 4.7 mmol/L (3.5-5.5); Uric Acid 10.9 mg/dL (2.9-7.7)
[2019-09-01 03:58] LABS: Creatinine,Urine Random 65.4 mg/dL
[2019-09-01 04:06] LABS: Total Protein,Urine Random 20.5 mg/dL (0.0-13.5)
== END | disposition home or self-care (01) ==
LOC: LABWHC1 15:29
PROVIDERS: ATTEND Nurse Practitioner Family
DX: N39.0 Urinary tract infection, site not specified (principal); N18.4 Chronic kidney disease, stage 4 (severe); E55.9 Vitamin D deficiency, unspecified; N25.81 Secondary hyperparathyroidism of renal origin; M10.9 Gout, unspecified; R80.9 Proteinuria, unspecified; E61.1 Iron deficiency
CPT/HCPCS: 36415; 80048; 81001; 82040; 82306; 82570; 82728; 83540; 83550; 83735; 83970; 84100; 84156; 84550; 85025

== ENCOUNTER 2019-10-02 20:51 | Inpatient (IN) | payer MEDICARE ==
--- NOTE | 2019-10-02 21:18 | ED ---
General Adult HPI - General Chief complaint: Shortness of Breath Stated complaint: Weakness Time Seen by Provider: 10/02/19 21:09 Source: patient, EMS Mode of arrival: EMS Limitations: no limitations - History of Present Illness Initial comments: Patient presents to the ED by ambulance from home for evaluation. Patient states that she has been generally weak and dyspneic for the past 3 weeks or so. Patient states that her dyspnea has increased today. Patient denies having any pain. Patient denies fever or chills, headache, focal neuro deficit, chest pain, cough or cold symptoms, palpitations, dizziness, syncope, abdominal pain, vomiting or diarrhea, bloody or melanotic stool, dysuria, hematuria, leg or calf swelling or pain, or any other symptoms or complaints. - Related Data Home Medications Medication Instructions Recorded Confirmed HYDROcodone/APAP 5-325MG [[place] 1 tab PO BID PRN 02/02/14 10/02/19 5-325] Ipratropium-Albuterol Nebulize 3 ml INHALATION RT-TID PRN 08/20/16 10/02/19 [Duoneb 0.5 mg-3 mg/3 ml Soln] Montelukast [Singulair] 10 mg PO DAILY@1200 05/17/17 10/02/19 Fluticasone/Salmeterol [Advair 1 puff INHALATION RT-BID 05/18/17 10/02/19 250-50 Diskus] Metoprolol Tartrate [Lopressor] 100 mg PO BID 07/18/17 10/02/19 Sennosides [Senna] 8.6 mg PO HS 07/18/17 10/02/19 Rivaroxaban [Xarelto] 15 mg PO HS@199912/11/17 10/02/19 Acetaminophen [Tylenol] 1,000 mg PO Q4H PRN 05/14/18 10/02/19 Insulin Detemir [Levemir Flextouch] 8 unit SQ DAILY@1430 05/14/18 10/02/19 Furosemide [Lasix] 40 mg PO DAILY 01/08/19 10/02/19 Previous Rx's Medication Instructions Recorded Atorvastatin [Lipitor] 40 mg PO HS #30 tab 07/23/17 Nitroglycerin Sl Tabs [Nitrostat] 0.4 mg SUBLINGUAL Q5M PRN #25 tab 07/23/17 Isosorbide Mononitrate ER [Imdur] 30 mg PO DAILY #30 tab.er.24h 09/23/17 Oxazepam [Serax] 15 mg PO BID #60 capsule 10/05/18 Pantoprazole [Protonix] 40 mg PO BID #60 tablet. 01/13/19 Allergies Allergy/AdvReac Type Severity Reaction Status Date / Time adhesive tape Allergy Rash/Hives Verified 10/02/19 23:23 amoxicillin trihydrate Allergy Unknown Verified 10/02/19 23:23 [From Augmentin] clindamycin HCl Allergy Unknown Verified 10/02/19 23:23 [From Cleocin] clindamycin palmitate HCl Allergy Unknown Verified 10/02/19 23:23 [From Cleocin] clindamycin phosphate Allergy Unknown Verified 10/02/19 23:23 [From Cleocin] codeine Allergy Unknown Verified 10/02/19 23:23 nitrofurantoin Allergy Unknown Verified 10/02/19 23:23 [From Macrobid] nitrofurantoin Allergy Unknown Verified 10/02/19 23:23 macrocrystalline [From Macrobid] Penicillins Allergy Unknown Verified 10/02/19 23:23 potassium clavulanate Allergy Unknown Verified 10/02/19 23:23 [From Augmentin] prednisone Allergy Unknown Verified 10/02/19 23:23 quinine Allergy Unknown Verified 10/02/19 23:23 Sulfa (Sulfonamide Allergy Unknown Verified 10/02/19 23:23 Antibiotics) sulfamethoxazole Allergy Unknown Verified 10/02/19 23:23 [From Bactrim] trimethoprim [From Bactrim] Allergy Unknown Verified 10/02/19 23:23 lorazepam [From Ativan] AdvReac Confusion Verified 10/02/19 23:23 Review of Systems ROS Statement: Those systems with pertinent positive or pertinent negative responses have been documented in the HPI. ROS Other: All systems not noted in ROS Statement are negative. Past Medical History Past Medical History: Coronary Artery Disease (CAD), Chest Pain / Angina, Heart Failure, COPD, CVA/TIA, Diabetes Mellitus, GERD/Reflux, Hearing Disorder / Deafness, Hyperlipidemia, Hypertension, Myocardial Infarction ([place]), Osteoarthritis (OA), Pneumonia, Renal Disease, Skin Disorder Additional Past Medical History / Comment(s): IDDM type II, frequent pneumonia, aspiration pneumonia with sepsis, renal insufficiency, recurrent UTIs, TIA x 3, difficulty swallowing-crushes meds and puts them in yogurt-past EGD/dilations, anemia, eczema, "lazy bowel" but pt states anymore she goes from diarrhea to constipation easily, generalized arthritis, chronic baci pain, hiatal hernia Last Myocardial Infarction Date:: 1998, 09/21/17 History of Any Multi-Drug Resistant Organisms: VRE Date of last positivie culture/infection: 10/07/17 MDRO Source:: VRE URINE Past Surgical History: Cholecystectomy, Heart Catheterization With Stent Additional Past Surgical History / Comment(s): cataracts w/lens implants, ectopic with one ovary/tube removed, heart caths :04/30/96 stent to rca, 03/18/2000 stent to mid rca, 07/22/17 stent to lad Past Anesthesia/Blood Transfusion Reactions: Previous Problems w/ Anesthesia Additional Past Anesthesia/Blood Transfusion Reaction / Comment(s): difficulty breathing after anesthesia Date of Last Stent Placement:: 06/2017 Past Psychological History: Depression Smoking Status: Former smoker Past Alcohol Use History: None Reported Past Drug Use History: None Reported - Past Family History Father History Unknown: Yes Family Medical History: Myocardial Infarction ([place]) Additional Family Medical History / Comment(s): Father had a ME at the age of 50 yrs. He lived to be 75yrs old. Mother History Unknown: Yes Family Medical History: Myocardial Infarction ([place]) Additional Family Medical History / Comment(s): Mother of a ME at about age 80yrs. General Exam Limitations: no limitations General appearance: alert, in no apparent distress Head exam: Present: atraumatic, normocephalic Eye exam: Present: normal appearance, PERRL, EOMI ENT exam: Present: mucous membranes moist Neck exam: Present: other (Trachea is in midline). Absent: tenderness, meningismus Respiratory exam: Present: normal lung sounds bilaterally. Absent: respiratory distress, wheezes, rales, rhonchi Cardiovascular Exam: Present: regular rate, normal rhythm, normal heart sounds, other (Normal radial pulses bilaterally) GI/Abdominal exam: Present: soft. Absent: distended, tenderness, guarding Extremities exam: Present: other (Negative Demetria's sign bilaterally). Absent: tenderness, pedal edema, calf tenderness Neurological exam: Present: alert, oriented X3, CN II-XII intact. Absent: motor sensory deficit Psychiatric exam: Present: normal affect, normal mood Skin exam: Present: warm, dry, intact, normal color Course Vital Signs 10/02/19 10/02/19 10/02/19 20:56 22:39 22:49 Temperature 98.6 F Pulse Rate 55 L 74 74 Respiratory 18 15 24 Rate Blood Pressure 127/55 127/56 127/56 O2 Sat by Pulse 92 L 98 98 Oximetry - Reevaluation(s) Reevaluation #1: 10/02/19 23:30 Case, H&P, test results and ED management were discussed with hospitalist SHIVAM Mendez. He accepts hospital admission on behalf of himself and Dr. Box. He agrees with cardiology consultation. He has no further recommendations at this time. 10/02/19 23:34 Patient remains alert and breathing comfortably with a normal room air oxygen saturation. Patient denies development of any new symptoms while in the ED. Patient is aware of her test results, and she agrees with hospital admission at this time. EKG Findings - EKG Comments: EKG Findings:: Normal sinus rhythm with premature supraventricular complexes, ventricular rate of 83 bpm, left bundle branch block, normal NM interval, normal QT interval, negative Sgarbossa's criteria, no significant change from 07/03/2019 EKG Medical Decision Making - Medical Decision Making Given the patient's symptoms, renal insufficiency and elevated troponin, will admit the patient to the hospital for further evaluation and treatment. Patient denies having any chest pain, and her EKG is unchanged when compared to her prior (LBBB with negative Sgarbossa's criteria). Patient was given a dose of aspirin in the ED. Patient was hydrated with IV fluids in the ED given her acute on chronic renal insufficiency. Patient is already on Xarelto anticoagulation therapy. Patient is afebrile and her vital signs are reassuring. Hospitalist SHIVAM Mendez has accepted hospital admission. - Lab Data Result diagrams: 10/02/19 21:09 10/02/19 21:09 Lab Results 10/02/19 10/02/19 10/02/19 Range/Units 21:09 21:09 21:09 WBC 9.4 (3.8-10.6) k/uL RBC 2.81 L (3.80-5.40) m/uL Hgb 5.4 L* D (11.4-16.0) gm/dL Hct 19.8 L* (34.0-46.0) % MCV 70.5 L D (80.0-100.0) fL MCH 19.2 L (25.0-35.0) pg MCHC 27.2 L (31.0-37.0) g/dL RDW 16.4 H (11.5-15.5) % Plt Count 404 (150-450) k/uL Neutrophils % (Manual) 80 % Lymphocytes % (Manual) 17 % Monocytes % (Manual) 2 % Eosinophils % (Manual) 2 % Neutrophils # (Manual) 7.52 (1.3-7.7) k/uL Lymphocytes # (Manual) 1.60 (1.0-4.8) k/uL Monocytes # (Manual) 0.19 (0-1.0) k/uL Eosinophils # (Manual) 0.19 (0-0.7) k/uL Nucleated RBCs 2 H (0-0) /100 WBC Manual Slide Review Performed Large Platelets Present Polychromasia Present Hypochromasia Marked Poikilocytosis Marked Anisocytosis Slight Microcytosis Marked Target Cells Present PT (9.0-12.0) sec INR (<1.2) APTT (22.0-30.0) sec Sodium 141 (137-145) mmol/L Potassium 4.2 (3.5-5.1) mmol/L Chloride 105 (98-107) mmol/L Carbon Dioxide 28 (22-30) mmol/L Anion Gap 8 mmol/L BUN 42 H (7-17) mg/dL Creatinine 2.29 H (0.52-1.04) mg/dL Est GFR (CKD-EPI)AfAm 22 (>60 ml/min/1.73 sqM) Est GFR (CKD-EPI)NonAf 19 (>60 ml/min/1.73 sqM) Glucose 148 H (74-99) mg/dL Calcium 9.0 (8.4-10.2) mg/dL Total Bilirubin 0.6 (0.2-1.3) mg/dL AST 34 (14-36) U/L ALT 11 (4-34) U/L Alkaline Phosphatase 114 (38-126) U/L Troponin I (0.000-0.034) ng/mL NT-Pro-B Natriuret Pep 16902 pg/mL Total Protein 7.4 (6.3-8.2) g/dL Albumin 3.5 (3.5-5.0) g/dL 10/02/19 10/02/19 Range/Units 21:09 21:09 WBC (3.8-10.6) k/uL RBC (3.80-5.40) m/uL Hgb (11.4-16.0) gm/dL Hct (34.0-46.0) % MCV (80.0-100.0) fL MCH (25.0-35.0) pg MCHC (31.0-37.0) g/dL RDW (11.5-15.5) % Plt Count (150-450) k/uL Neutrophils % (Manual) % Lymphocytes % (Manual) % Monocytes % (Manual) % Eosinophils % (Manual) % Neutrophils # (Manual) (1.3-7.7) k/uL Lymphocytes # (Manual) (1.0-4.8) k/uL Monocytes # (Manual) (0-1.0) k/uL Eosinophils # (Manual) (0-0.7) k/uL Nucleated RBCs (0-0) /100 WBC Manual Slide Review Large Platelets Polychromasia Hypochromasia Poikilocytosis Anisocytosis Microcytosis Target Cells PT 14.3 H (9.0-12.0) sec INR 1.4 H (<1.2) APTT 30.0 (22.0-30.0) sec Sodium (137-145) mmol/L Potassium (3.5-5.1) mmol/L Chloride (98-107) mmol/L Carbon Dioxide (22-30) mmol/L Anion Gap mmol/L BUN (7-17) mg/dL Creatinine (0.52-1.04) mg/dL Est GFR (CKD-EPI)AfAm (>60 ml/min/1.73 sqM) Est GFR (CKD-EPI)NonAf (>60 ml/min/1.73 sqM) Glucose (74-99) mg/dL Calcium (8.4-10.2) mg/dL Total Bilirubin (0.2-1.3) mg/dL AST (14-36) U/L ALT (4-34) U/L Alkaline Phosphatase (38-126) U/L Troponin I 0.229 H* (0.000-0.034) ng/mL NT-Pro-B Natriuret Pep pg/mL Total Protein (6.3-8.2) g/dL Albumin (3.5-5.0) g/dL - Radiology Data Radiology results: report reviewed (Chest x-ray shows pulmonary fibrosis and kyphotic changes) Disposition Clinical Impression: Dyspnea, Weakness, Elevated troponin, Acute on chronic renal insufficiency Disposition: ADMITTED IP TO THIS HOSP Condition: Stable Is patient prescribed a controlled substance at d/c from ED?: No Referrals: Georgi Thayer MD [Primary Care Provider] - 1-2 days Time of Disposition: 23:30
[2019-10-02 21:36] LABS: Albumin 3.5 g/dL (3.5-5.0); Potassium 4.2 mmol/L (3.5-5.1); Total Bilirubin 0.6 mg/dL (0.2-1.3); Total Protein 7.4 g/dL (6.3-8.2)
[2019-10-02 21:45] LABS: Anisocytosis Slight; Hypochromasia Marked; MCH 19.2 pg (25.0-35.0); MCHC 27.2 g/dL (31.0-37.0); Mean Platelet Volume 8.4; Microcytosis Marked; Platelet Count 404 k/uL (150-450); Poikilocytosis Marked; RBC 2.81 m/uL (3.80-5.40); RDW 16.4 % (11.5-15.5)
[2019-10-02 21:50] LABS: INR 1.4 (<1.2); Prothrombin Time 14.3 sec (9.0-12.0)
--- NOTE | 2019-10-02 21:59 | XR ---
EXAMINATION TYPE: XR chest 2V DATE OF EXAM: 10/02/2019 COMPARISON: 07/03/2019 HISTORY: Difficulty breathing TECHNIQUE: FINDINGS: There is moderate coarse interstitial density throughout the lungs. Thoracic aorta is ather omatous. There are chest leads. There is mild blunting of the costophrenic angles. There is thoracic kyphotic deformity with anterior wedging of multiple thoracic vertebra. IMPRESSION: Pulmonary fibrosis. Kyphotic deformity. Cardiomegaly. No definite heart failure. Kyphosis appears worse than last exam.
[2019-10-02] MEDS ORDERED: ASPIRIN 325 MG TAB PO STA (22:17)
[2019-10-02 22:46] LABS: HCT 19.8 % (34.0-46.0); HGB 5.4 gm/dL (11.4-16.0)
[2019-10-02 22:47] LABS: MCV 70.5 fL (80.0-100.0)
[2019-10-02] MEDS ORDERED: SODIUM CHLORIDE 0.9% 500 ML 500 ML IV ONE (22:50)
[2019-10-02 23:04] LABS: Eosinophils # (M) 0.19 k/uL (0-0.7); Monocytes # (M) 0.19 k/uL (0-1.0); Neutrophils % (M) 80 %; Nucleated Red Blood Cells 2 /100 WBC (0-0); Total Cells Counted 200
[2019-10-02 23:05] LABS: Neutrophils # (M) 7.52 k/uL (1.3-7.7); WBC 9.4 k/uL (3.8-10.6)
[2019-10-02 23:06] LABS: Polychromasia Present; Target Cells Present
[2019-10-02 23:08] LABS: Large Platelets Present
[2019-10-03] MEDS ORDERED: FUROSEMIDE 10 MG/ML 2 ML VIAL IV ONE (03:25)
[2019-10-03 06:19] LABS: Glucose,Whole Blood 115 mg/dL (75-99)
[2019-10-03 06:26] LABS: Calcium 8.4 mg/dL (8.4-10.2); Potassium 3.7 mmol/L (3.5-5.1); Total Bilirubin 0.9 mg/dL (0.2-1.3); Total Protein 6.7 g/dL (6.3-8.2)
[2019-10-03 06:43] LABS: Anisocytosis Slight; Basophils # (A) 0.1 k/uL (0-0.2); Basophils % (A) 1 %; Eosinophils # (A) 0.3 k/uL (0-0.7); Eosinophils % (A) 3 %; HCT 22.8 % (34.0-46.0); Hypochromasia Marked; Lymphocytes # (A) 2.1 k/uL (1.0-4.8); Lymphocytes % (A) 22 %; MCH 22.6 pg (25.0-35.0); MCHC 30.3 g/dL (31.0-37.0); MCV 74.6 fL (80.0-100.0); Mean Platelet Volume 8.5; Microcytosis Moderate; Monocytes # (A) 0.5 k/uL (0-1.0); Monocytes % (A) 6 %; Neutrophils # (A) 6.1 k/uL (1.3-7.7); Neutrophils % (A) 66 %; Platelet Count 350 k/uL (150-450); Poikilocytosis Marked; RBC 3.06 m/uL (3.80-5.40); RDW 16.6 % (11.5-15.5); WBC 9.3 k/uL (3.8-10.6)
[2019-10-03 06:51] LABS: HGB 6.9 gm/dL (11.4-16.0)
[2019-10-03] MEDS: ACETAMINOPHEN TAB 325 MG TAB PO PRN ×2 (08:00→13:50)
[2019-10-03] MEDS: ISOSORBIDE MONONITRATE ER 30 MG TAB.ER.24H PO SCH (08:00)
[2019-10-03] MEDS: METOPROLOL TARTRATE 50 MG TAB PO SCH ×2 (08:00→20:41)
[2019-10-03] MEDS ORDERED: NITROGLYCERIN SL TABS 0.4 MG TAB SUBLINGUAL PRN (09:06)
[2019-10-03] MEDS ORDERED: OXAZEPAM 15 MG PO SCH (09:09)
[2019-10-03] MEDS ORDERED: ALPRAZolam 0.25 MG TAB PO PRN (09:11)
[2019-10-03] MEDS: MONTELUKAST 10 MG TAB PO SCH (09:18)
[2019-10-03 11:47] LABS: Glucose,Whole Blood 121 mg/dL (75-99)
--- NOTE | 2019-10-03 12:17 | P.CRDCN ---
History of Present Illness History of present illness: HISTORY OF PRESENTING ILLNESS This is a pleasant 89-year-old female past medical history significant for coronary artery disease status post multiple PCI, paroxysmal atrial fibrill ation on long-term anticoagulation, hypertension and dyslipidemia. She also has aortic stenosis. Most recently in 2018 she underwent cardiac catheterization revealing the LAD is widely patent at the site of previous stenting, diffuse disease in the previous stented RCA, nondominant circumflex with a 35-40% stenosis. She was advised maximizing her medical therapy at that time. She follows in the office with Dr. Nunez. We have been asked to see her in consultation secondary to elevated troponin. She presented to the hospital with symptoms of increased weakness, fatigue and shortness of breath. On arrival she was found to have a hemoglobin of 5.4 and subsequently underwent a blood transf usion of one unit of packed red blood cells. Repeat hemoglobin this morning is 6.9. She is seen and examined sitting up in bed in mild distress. She continues to complain of significant shortness of breath. She states she recalls seeing bright red blood in her stool for the previous couple of weeks intermittently. She is maintained on Xarelto secondary to paroxysmal atrial fibrillation. DIAGNOSTICS EKG reveals lying atrial fibrillation with controlled ventricular response and left bundle branch block. Chest xray nares fibrosis with no definite heart failure. Laboratory reviewed, WBC 9.3, hemoglobin 6.9, platelets 350, sodium 140, potassium 3.7, creatinine 2.0, troponin 0.229, 0.201 and 0.194, NT proBNP 20,400 and stool for occult blood is negative. Current cardiac medications include atorvastatin 40 mg daily, Lasix 40 mg daily, Imdur 30 mg daily, Lopressor 100 mg twice a day, Xarelto 15 mg at bedtime. Most recent echocardiogram obtained December 2018 reveals mildly impaired LV syst olic function with ejection fraction 45% 50%, moderate to severe aortic stenosis with a mean gradient of 20 mmHg and moderate mitral regurgitation. REVIEW OF SYSTEMS At the time of my exam: CONSTITUTIONAL: Denies fever or chills. CARDIOVASCULAR: Complains of shortness of breath. Denies chest pain, orthopnea, PND or palpitations. RESPIRATORY: Denies cough. GASTROINTESTINAL: Denies abdominal pain, diarrhea, constipation, nausea or vomiting. MUSCULOSKELETAL: Denies myalgias. NEUROLOGIC: Denies numbness, tingling or weakness. ENDOCRINE: Denies fatigue, weight change, polydipsia or polyurina. GENITOURINARY: Denies burning, hematuria or urgency with micturation. HEMATOLOGIC: Denies history of anemia or bleeding. PHYSICAL EXAMINATION Blood pressure 149/79 heart rate 77 afebrile and maintaining oxygen saturation on nasal cannula. CONSTITUTIONAL: No apparent distress. HEENT: Head is normocephalic. Pupils are equal, round. Sclerae anicteric. Mucous membranes of the mouth are moist. No JVD. No carotid bruit. CHEST EXAMINATION: Scattered rhonchi and bibasilar rales, no wheezes. No chest wall tenderness is noted on palpation or with deep breathing. HEART EXAMINATION: Irregular rate and rhythm. S1, S2 heard. Systolic ejection murmur at the base, no gallops or rub. ABDOMEN: Soft, nontender. Positive bowel sounds. EXTREMITIES: 2+ peripheral pulses, no lower extremity edema and no calf tenderness. NEUROLOGIC EXAMINATION: Patient is awake, alert and oriented x3. ASSESSMENT Acute on chronic anemia Elevated troponin secondary to an oxygen supply demand mismatch, type II event Aortic stenosis Paroxysmal atrial fibrillation on long-term anticoagulation History of coronary artery disease status post multiple PCI Hypertension Anemia PLAN Hold anti-coagulation and aspirin. Recommend transfusing another unit of PRBC. Repeat 2D echocardiogram and doppler study to assess cardiac structure and function. Further recommendation to follow based on clinical course. Thank you kindly for this consultation. Nurse Practitioner note has been reviewed, I agree with a documented findings and plan of care. Patient was seen and examined. Past Medical History Past Medical History: Atrial Fibrillation, Coronary Artery Disease (CAD), Chest Pain / Angina, Heart Failure, COPD, CVA/TIA, Diabetes Mellitus, GERD/Reflux, Hearing Disorder / Deafness, Hyperlipidemia, Hypertension, Myocardial Infarction ([place]), Osteoarthritis (OA), Pneumonia, Renal Disease, Skin Disorder Additional Past Medical History / Comment(s): IDDM type II, frequent pneumonia, aspiration pneumonia with sepsis, renal insufficiency, recurrent UTIs, TIA x 3, difficulty swallowing-crushes meds and puts them in yogurt-past EGD/dilations, anemia, eczema, "lazy bowel" but pt states anymore she goes from diarrhea to constipation easily, generalized arthritis, chronic baci pain, hiatal hernia Last Myocardial Infarction Date:: 1998, 09/21/17 History of Any Multi-Drug Resistant Organisms: VRE Date of last positivie culture/infection: 10/07/17 MDRO Source:: VRE URINE Past Surgical History: Cholecystectomy, Heart Catheterization With Stent Additional Past Surgical History / Comment(s): cataracts w/lens implants, ectopic with one ovary/tube removed, heart caths :04/30/96 stent to rca, 03/18/2000 stent to mid rca, 07/22/17 stent to lad Past Anesthesia/Blood Transfusion Reactions: Previous Problems w/ Anesthesia Additional Past Anesthesia/Blood Transfusion Reaction / Comment(s): difficulty breathing after anesthesia Date of Last Stent Placement:: 06/2017 Past Psychological History: Depression Additional Psychological History / Comment(s): Pt resides in an apartment at [facility]. She ambulates with a walker. Her daughter is very helpful and is in an apt above her. 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 She no longer drives, family takes her to appts. She goes up to her daughter's for supper and manages her own medication. Smoking Status: Former smoker Past Alcohol Use History: None Reported Additional Past Alcohol Use History / Comment(s): Patient has history of smoking 3 packs per day started smoking at age 16 and quit in 1997 Past Drug Use History: None Reported - Past Family History Father History Unknown: Yes Family Medical History: Myocardial Infarction ([place]) Additional Family Medical History / Comment(s): Father had a [place] at the age of 50 yrs. He lived to be 75yrs old. Mother History Unknown: Yes Family Medical History: Myocardial Infarction ([place]) Additional Family Medical History / Comment(s): Mother of a KS at about age 80yrs. Medications and Allergies Home Medications Medication Instructions Recorded Confirmed Type HYDROcodone/APAP 5-325MG [[place] 1 tab PO BID PRN 02/02/14 10/02/19 History 5-325] Ipratropium-Albuterol Nebulize 3 ml INHALATION RT-TID PRN 08/20/16 10/02/19 Hist ory [Duoneb 0.5 mg-3 mg/3 ml Soln] Montelukast [Singulair] 10 mg PO DAILY@1200 05/17/17 10/02/19 History Fluticasone/Salmeterol [Advair 1 puff INHALATION RT-BID 05/18/17 10/02/19 History 250-50 Diskus] Metoprolol Tartrate [Lopressor] 100 mg PO BID 07/18/17 10/02/19 History Sennosides [Senna] 8.6 mg PO HS 07/18/17 10/02/19 History Atorvastatin [Lipitor] 40 mg PO HS #30 tab 07/23/17 10/02/19 Rx Nitroglycerin Sl Tabs [Nitrostat] 0.4 mg SUBLINGUAL Q5M PRN #25 tab 07/23/17 10/02/19 Rx Isosorbide Mononitrate ER [Imdur] 30 mg PO DAILY #30 tab.er.24h 09/23/17 10/02/19 Rx Rivaroxaban [Xarelto] 15 mg PO HS@199912/11/17 10/02/19 History Acetaminophen [Tylenol] 1,000 mg PO Q4H PRN 05/14/18 10/02/19 History Insulin Detemir [Levemir Flextouch] 8 unit SQ DAILY@1430 05/14/18 10/02/19 History Oxazepam [Serax] 15 mg PO BID #60 capsule 10/05/18 10/02/19 Rx Furosemide [Lasix] 40 mg PO DAILY 01/08/19 10/02/19 History Pantoprazole [Protonix] 40 mg PO BID #60 tablet. 01/13/19 10/02/19 Rx Allergies Allergy/AdvReac Type Severity Reaction Status Date / Time adhesive tape Allergy Rash/Hives Verified 10/02/19 23:23 amoxicillin trihydrate Allergy Unknown Verified 10/02/19 23:23 [From Augmentin] clindamycin HCl Allergy Unknown Verified 10/02/19 23:23 [From Cleocin] clindamycin palmitate HCl Allergy Unknown Verified 10/02/19 23:23 [From Cleocin] clindamycin phosphate Allergy Unknown Verified 10/02/19 23:23 [From Cleocin] codeine Allergy Unknown Verified 10/02/19 23:23 nitrofurantoin Allergy Unknown Verified 10/02/19 23:23 [From Macrobid] nitrofurantoin Allergy Unknown Verified 10/02/19 23:23 macrocrystalline [From Macrobid] Penicillins Allergy Unknown Verified 10/02/19 23:23 potassium clavulanate Allergy Unknown Verified 10/02/19 23:23 [From Augmentin] prednisone Allergy Unknown Verified 10/02/19 23:23 quinine Allergy Unknown Verified 10/02/19 23:23 Sulfa (Sulfonamide Allergy Unknown Verified 10/02/19 23:23 Antibiotics) sulfamethoxazole Allergy Unknown Verified 10/02/19 23:23 [From Bactrim] trimethoprim [From Bactrim] Allergy Unknown Verified 10/02/19 23:23 lorazepam [From Ativan] AdvReac Confusion Verified 10/02/19 23:23 Physical Exam Vitals: Vital Signs Temp Pulse Pulse Resp BP BP Pulse Ox 10/03/19 05:07 97.8 F 77 18 149/79 10/03/19 04:52 80 18 144/65 98 10/03/19 04:37 98.8 F 81 18 154/65 98 10/03/19 04:19 98.7 F 78 19 153/67 99 10/03/19 04:00 82 19 10/03/19 03:10 75 19 122/72 94 L 10/03/19 03:00 97.9 F 79 18 121/55 95 10/03/19 02:40 98.2 F 80 18 130/56 95 10/03/19 02:30 98.4 F 84 19 126/56 96 10/03/19 01:00 97.9 F 82 19 133/57 97 10/03/19 00:48 98.7 F 82 16 123/75 96 10/02/19 22:49 74 24 127/56 98 10/02/19 22:39 74 15 127/56 98 10/02/19 20:56 98.6 F 55 L 18 127/55 92 L Intake and Output 10/02/19 10/03/19 10/03/19 22:59 06:59 14:59 Intake Total 550 Balance 550 Intake: Oral 240 Blood Product 310 Rc Irr As1 Unit 310 [id number] Other: Voiding Method Bedpan # Voids 3 Weight 58.967 kg 48.5 kg Results 10/03/19 05:45 10/03/19 05:45 Cardiac Enzymes 10/02/19 10/02/19 10/03/19 Range/Units 21:09 21:09 03:55 AST 34 (14-36) U/L Troponin I 0.229 H* 0.201 H* (0.000-0.034) ng/mL 10/03/19 10/03/19 Range/Units 05:45 05:45 AST 40 H (14-36) U/L Troponin I 0.194 H* (0.000-0.034) ng/mL Coagulation 10/02/19 Range/Units 21:09 PT 14.3 H (9.0-12.0) sec APTT 30.0 (22.0-30.0) sec CBC 10/02/19 10/03/19 Range/Units 21:09 05:45 WBC 9.4 9.3 (3.8-10.6) k/uL RBC 2.81 L 3.06 L (3.80-5.40) m/uL Hgb 5.4 L* D 6.9 L* D (11.4-16.0) gm/dL Hct 19.8 L* 22.8 L (34.0-46.0) % Plt Count 404 350 (150-450) k/uL Comprehensive Metabolic Panel 10/02/19 10/03/19 Range/Units 21:09 05:45 Sodium 141 140 (137-145) mmol/L Potassium 4.2 3.7 (3.5-5.1) mmol/L Chloride 105 109 H (98-107) mmol/L Carbon Dioxide 28 23 (22-30) mmol/L BUN 42 H 38 H (7-17) mg/dL Creatinine 2.29 H 2.00 H (0.52-1.04) mg/dL Glucose 148 H 103 H (74-99) mg/dL Calcium 9.0 8.4 (8.4-10.2) mg/dL AST 34 40 H (14-36) U/L ALT 11 9 (4-34) U/L Alkaline Phosphatase 114 91 (38-126) U/L Total Protein 7.4 6.7 (6.3-8.2) g/dL Albumin 3.5 3.0 L (3.5-5.0) g/dL Current Medications Generic Name Dose Route Start Last Admin Trade Name Freq PRN Reason Stop Dose Admin Acetaminophen 650 mg 10/03/19 06:58 10/03/19 08:00 Tylenol Tab PO 650 mg Q6HR PRN Administration Fever and/ or Pain Alprazolam 0.25 mg 10/03/19 09:11 10/03/19 09:18 Xanax PO 0.25 mg QID PRN Administration Anxiety Atorvastatin Calcium 40 mg 10/03/19 21:00 Lipitor PO HS [facility] Budesonide/Formoterol Fumarate 2 puff 10/03/19 20:00 Symbicort 80-4.5 Mcg Inhaler INHALATION RT-BID [facility] Furosemide 40 mg 10/04/19 09:00 Lasix PO DAILY [facility] Insulin Detemir 8 unit 10/03/19 14:30 Levemir SQ DAILY@1430 [facility] Isosorbide Mononitrate 30 mg 10/03/19 09:00 10/03/19 08:00 Imdur PO 30 mg DAILY [facility] Administration Metoprolol Tartrate 100 mg 10/03/19 09:00 10/03/19 08:00 Lopressor PO 100 mg BID [facility] Administration Montelukast Sodium 10 mg 10/03/19 12:00 10/03/19 09:18 Singulair PO 10 mg DAILY@1200 [facility] Administration Nitroglycerin 0.4 mg 10/03/19 09:06 Nitrostat SUBLINGUAL Q5M PRN Chest Pain Pantoprazole Sodium 40 mg 10/03/19 17:30 Protonix PO AC-BID [facility] Senna 8.6 mg 10/03/19 21:[address] [facility] Intake and Output 10/02/19 10/03/19 10/03/19 22:59 06:59 14:59 Intake Total 550 Balance 550 Intake: Oral 240 Blood Product 310 Rc Irr As1 Unit 310 [id number] Other: Voiding Method Bedpan # Voids 3 Weight 58.967 kg 48.5 kg 10/03/19 05:45 10/03/19 05:45
[2019-10-03 12:45] VITALS: BMI 22.3
[2019-10-03] MEDS: INSULIN DETEMIR (LEVEMIR) 100 UNIT/ML SYR SQ SCH (15:01)
[2019-10-03 15:03] LABS: Glucose,Whole Blood 166 mg/dL (75-99)
[2019-10-03 15:56] LABS: Appearance,Urine Clear (Clear); Bilirubin,Urine Negative (Negative); Blood,Urine Negative (Negative); Color,Urine Yellow; Glucose,Urine (UA) Negative (Negative); Ketones,Urine Negative (Negative); Leukocyte Esterase,Urine Small (Negative); Mucus,Urine Rare /hpf; Nitrite,Urine Negative (Negative); Protein,Urine Negative (Negative); Squamous Epithelial Cell,Urine 1 /hpf (0-4); Urobilinogen,Urine <2.0 mg/dL (<2.0); WBC,Urine 2 /hpf (0-5)
[2019-10-03] MEDS: PANTOPRAZOLE 40 MG TABLET PO SCH (17:16)
--- NOTE | 2019-10-03 18:09 | P.HPIM ---
History of Present Illness H&P Date: 10/03/19 Chief Complaint: Generalized weakness and dyspnea Ms. Ulloa is a 89-year-old female with a past medical history of hypertension, congestive heart failure, COPD, stroke/TIA, diabetes mellitus, hearing disorder, hypertension, hyperlipidemia, osteoarthritis, paroxysmal atrial fibrillation on long-term anticoagulation coming into the hospital with a chief complaint of increased weakness with deconditioning in breathing. The patient is a poor historian. At the time of admission in the ER she was found to have a hemoglobin of 5.4. Patient states that she has been having dark-colored stool for approximately 2-3 weeks and also that she noticed some blood when she wipes herself after a bowel movement. She also mentions about having lost 30-40 pounds in the past 3-6 months. Patient is on Xarelto for proximal atrial fibrillation. In the ER patient was found to have hemoglobin of 5.4. Creatinine is elevated at 2.29 and mild elevation of troponins. She had FOBT done that was negative. Patient was transfused with 2 units of PRBCs and her hemoglobin is at 6.9. Her anticoagulation is currently on hold. Review of Systems REVIEW OF SYSTEMS: PSYCH: No anxiety or depression NEURO:No c/o weakness of the extremties, No facial droop, No speech abnormalities. VASCULAR: Peripheral nervous system within the normal limits no edema HEMATOLOGIC: No history of easy bleeding and bruising . No recent infections . RESPIRATORY: Mild difficulty in breathing. IMMUNE: No infections INTEGUMENT: no rashes OPHTHALMOLOGIC: No blurry vision and no eye discharge : No dysuria or hematuria CARDIAC: No chest pain , shortness of breath , paroxysmal nocturnal dyspnea MUSCULOSKELETAL : generalized weakness. Recent weight loss. GI: As per HPI Past Medical History Past Medical History: Atrial Fibrillation, Coronary Artery Disease (CAD), Chest Pain / Angina, Heart Failure, COPD, CVA/TIA, Diabetes Mellitus, GERD/Reflux, Hearing Disorder / Deafness, Hyperlipidemia, Hypertension, Myocardial Infarction (NH), Osteoarthritis (OA), Pneumonia, Renal Disease, Skin Disorder Additional Past Medical History / Comment(s): IDDM type II, frequent pneumonia, aspiration pneumonia with sepsis, renal insufficiency, recurrent UTIs, TIA x 3, difficulty swallowing-crushes meds and puts them in yogurt-past EGD/dilations, anemia, eczema, "lazy bowel" but pt states anymore she goes from diarrhea to constipation easily, generalized arthritis, chronic baci pain, hiatal hernia Last Myocardial Infarction Date:: 1998, 09/21/17 History of Any Multi-Drug Resistant Organisms: VRE Date of last positivie culture/infection: 10/07/17 MDRO Source:: VRE URINE Past Surgical History: Cholecystectomy, Heart Catheterization With Stent Additional Past Surgical History / Comment(s): cataracts w/lens implants, ectopic with one ovary/tube removed, heart caths :04/30/96 stent to rca, 03/18/2000 stent to mid rca, 07/22/17 stent to lad Past Anesthesia/Blood Transfusion Reactions: Previous Problems w/ Anesthesia Additional Past Anesthesia/Blood Transfusion Reaction / Comment(s): difficulty breathing after anesthesia Date of Last Stent Placement:: 06/2017 Past Psychological History: Depression Additional Psychological History / Comment(s): Pt resides in an apartment at [facility]. She ambulates with a walker. Her daughter is very helpful and is in an apt above her. Pt has chore person from [employer] on aging. She no longer drives, family takes her to [employer]. She goes up to her daughter's for supper and manages her own medication. Smoking Status: Former smoker Past Alcohol Use History: None Reported Additional Past Alcohol Use History / Comment(s): Patient has history of smoking 3 packs per day started smoking at age 16 and quit in 1997 Past Drug Use History: None Reported - Past Family History Father History Unknown: Yes Family Medical History: Myocardial Infarction (NH) Additional Family Medical History / Comment(s): Father had a NH at the age of 50 yrs. He lived to be 75yrs old. Mother History Unknown: Yes Family Medical History: Myocardial Infarction (NH) Additional Family Medical History / Comment(s): Mother of a NH at about age 80yrs. Medications and Allergies Home Medications Medication Instructions Recorded Confirmed Type HYDROcodone/APAP 5-325MG [[place] 1 tab PO BID PRN 02/02/14 10/02/19 History 5-325] Ipratropium-Albuterol Nebulize 3 ml INHALATION RT-TID PRN 08/20/16 10/02/19 History [Duoneb 0.5 mg-3 mg/3 ml Soln] Montelukast [Singulair] 10 mg PO DAILY@1200 05/17/17 10/02/19 History Fluticasone/Salmeterol [Advair 1 puff INHALATION RT-BID 05/18/17 10/02/19 History 250-50 Diskus] Metoprolol Tartrate [Lopressor] 100 mg PO BID 07/18/17 10/02/19 History Sennosides [Senna] 8.6 mg PO HS 07/18/17 10/02/19 History Atorvastatin [Lipitor] 40 mg PO HS #30 tab 07/23/17 10/02/19 Rx Nitroglycerin Sl Tabs [Nitrostat] 0.4 mg SUBLINGUAL Q5M PRN #25 tab 07/23/17 10/02/19 Rx Isosorbide Mononitrate ER [Imdur] 30 mg PO DAILY #30 tab.er.24h 09/23/17 10/02/19 Rx Rivaroxaban [Xarelto] 15 mg PO HS@199912/11/17 10/02/19 History Acetaminophen [Tylenol] 1,000 mg PO Q4H PRN 05/14/18 10/02/19 History Insulin Detemir [Levemir Flextouch] 8 unit SQ DAILY@1430 05/14/18 10/02/19 History Oxazepam [Serax] 15 mg PO BID #60 capsule 10/05/18 10/02/19 Rx Furosemide [Lasix] 40 mg PO DAILY 01/08/19 10/02/19 History Pantoprazole [Protonix] 40 mg PO BID #60 tablet. 01/13/19 10/02/19 Rx Allergies Allergy/AdvReac Type Severity Reaction Status Date / Time adhesive tape Allergy Rash/Hives Verified 10/02/19 23:23 amoxicillin trihydrate Allergy Unknown Verified 10/02/19 23:23 [From Augmentin] clindamycin HCl Allergy Unknown Verified 10/02/19 23:23 [From Cleocin] clindamycin palmitate HCl Allergy Unknown Verified 10/02/19 23:23 [From Cleocin] clindamycin phosphate Allergy Unknown Verified 10/02/19 23:23 [From Cleocin] codeine Allergy Unknown Verified 10/02/19 23:23 nitrofurantoin Allergy Unknown Verified 10/02/19 23:23 [From Macrobid] nitrofurantoin Allergy Unknown Verified 10/02/19 23:23 macrocrystalline [From Macrobid] Penicillins Allergy Unknown Verified 10/02/19 23:23 potassium clavulanate Allergy Unknown Verified 10/02/19 23:23 [From Augmentin] prednisone Allergy Unknown Verified 10/02/19 23:23 quinine Allergy Unknown Verified 10/02/19 23:23 Sulfa (Sulfonamide Allergy Unknown Verified 10/02/19 23:23 Antibiotics) sulfamethoxazole Allergy Unknown Verified 10/02/19 23:23 [From Bactrim] trimethoprim [From Bactrim] Allergy Unknown Verified 10/02/19 23:23 lorazepam [From Ativan] AdvReac Confusion Verified 10/02/19 23:23 Physical Exam Vitals: Vital Signs Temp Pulse Pulse Resp BP BP Pulse Ox 10/03/19 16:00 97 F L 75 16 143/68 99 10/03/19 13:01 97.4 F L 69 16 134/64 100 10/03/19 12:31 97.5 F L 63 16 130/80 100 10/03/19 12:21 97.5 F L 70 16 112/73 100 10/03/19 12:00 16 10/03/19 11:44 97.7 F 65 16 127/59 100 10/03/19 08:00 97.5 F L 85 20 167/66 96 10/03/19 05:07 97.8 F 77 18 149/79 10/03/19 04:52 80 18 144/65 98 10/03/19 04:37 98.8 F 81 18 154/65 98 10/03/19 04:19 98.7 F 78 19 153/67 99 10/03/19 04:00 82 19 10/03/19 03:10 75 19 122/72 94 L 10/03/19 03:00 97.9 F 79 18 121/55 95 10/03/19 02:40 98.2 F 80 18 130/56 95 10/03/19 02:30 98.4 F 84 19 126/56 96 10/03/19 01:00 97.9 F 82 19 133/57 97 10/03/19 00:48 98.7 F 82 16 123/75 96 10/02/19 22:49 74 24 127/56 98 10/02/19 22:39 74 15 127/56 98 10/02/19 20:56 98.6 F 55 L 18 127/55 92 L Intake and Output 10/03/19 10/03/19 10/03/19 06:59 14:59 22:59 Intake Total 550 210 400 Output Total 200 200 Balance 550 10 200 Intake: Oral 240 210 90 Blood Product 310 0 310 Rc Irr As1 Unit 310 [id number] Rc Irr As1 Unit 0 310 [id number] Output: Urine 200 200 Other: Voiding Method Bedpan Bedpan # Voids 3 Weight 48.5 kg 48.5 kg GEN. APPEARANCE: alert, in no apparent distress HEAD EXAM: atraumatic, normocephalic, normal inspection EYE EXAM: normal appearance, PERRL, EOMI. mild pallor. ENT EXAM: normal exam, mucous membranes moist RESPIRATORY EXAM: Decreased breath sounds in bilateral lung scruggs. Poor respiratory effort. No wheezes or crackles. CARDIOVASCULAR EXAM: Irregularly irregular. GI/ABDOMINAL EXAM: soft, normal bowel sounds. No guarding or rigidity. EXTREMITIES EXAM: No edema. NEUROLOGICAL EXAM: alert, oriented X3, no focal deficits. PSYCHIATRIC EXAM: normal affect, normal mood SKIN EXAM: warm, dry, intact, normal color. Absent: rash Results CBC & Chem 7: 10/03/19 05:45 10/03/19 05:45 Labs: Abnormal Lab Results - Last 24 Hours (Table) 10/02/19 10/02/19 10/02/19 Range/Units 21:07 21:09 21:09 RBC 2.81 L (3.80-5.40) m/uL Hgb 5.4 L* D (11.4-16.0) gm/dL Hct 19.8 L* (34.0-46.0) % MCV 70.5 L D (80.0-100.0) fL MCH 19.2 L (25.0-35.0) pg MCHC 27.2 L (31.0-37.0) g/dL RDW 16.4 H (11.5-15.5) % Nucleated RBCs 2 H (0-0) /100 WBC PT (9.0-12.0) sec INR (<1.2) Chloride (98-107) mmol/L BUN 42 H (7-17) mg/dL Creatinine 2.29 H (0.52-1.04) mg/dL Glucose 148 H (74-99) mg/dL POC Glucose (mg/dL) (75-99) mg/dL AST (14-36) U/L Troponin I (0.000-0.034) ng/mL Albumin (3.5-5.0) g/dL Ur Leukocyte Esterase (Negative) Urine Mucus (None) /hpf Crossmatch See Detail 10/02/19 10/02/19 10/03/19 Range/Units 21:09 21:09 03:55 RBC (3.80-5.40) m/uL Hgb (11.4-16.0) gm/dL Hct (34.0-46.0) % MCV (80.0-100.0) fL MCH (25.0-35.0) pg MCHC (31.0-37.0) g/dL RDW (11.5-15.5) % Nucleated RBCs (0-0) /100 WBC PT 14.3 H (9.0-12.0) sec INR 1.4 H (<1.2) Chloride (98-107) mmol/L BUN (7-17) mg/dL Creatinine (0.52-1.04) mg/dL Glucose (74-99) mg/dL POC Glucose (mg/dL) (75-99) mg/dL AST (14-36) U/L Troponin I 0.229 H* 0.201 H* (0.000-0.034) ng/mL Albumin (3.5-5.0) g/dL Ur Leukocyte Esterase (Negative) Urine Mucus (None) /hpf Crossmatch 10/03/19 10/03/19 10/03/19 Range/Units 05:45 05:45 05:45 RBC 3.06 L (3.80-5.40) m/uL Hgb 6.9 L* D (11.4-16.0) gm/dL Hct 22.8 L (34.0-46.0) % MCV 74.6 L (80.0-100.0) fL MCH 22.6 L (25.0-35.0) pg MCHC 30.3 L (31.0-37.0) g/dL RDW 16.6 H (11.5-15.5) % Nucleated RBCs (0-0) /100 WBC PT (9.0-12.0) sec INR (<1.2) Chloride 109 H (98-107) mmol/L BUN 38 H (7-17) mg/dL Creatinine 2.00 H (0.52-1.04) mg/dL Glucose 103 H (74-99) mg/dL POC Glucose (mg/dL) (75-99) mg/dL AST 40 H (14-36) U/L Troponin I 0.194 H* (0.000-0.034) ng/mL Albumin 3.0 L (3.5-5.0) g/dL Ur Leukocyte Esterase (Negative) Urine Mucus (None) /hpf Crossmatch 10/03/19 10/03/19 10/03/19 Range/Units 06:17 11:45 15:00 RBC (3.80-5.40) m/uL Hgb (11.4-16.0) gm/dL Hct (34.0-46.0) % MCV (80.0-100.0) fL MCH (25.0-35.0) pg MCHC (31.0-37.0) g/dL RDW (11.5-15.5) % Nucleated RBCs (0-0) /100 WBC PT (9.0-12.0) sec INR (<1.2) Chloride (98-107) mmol/L BUN (7-17) mg/dL Creatinine (0.52-1.04) mg/dL Glucose (74-99) mg/dL POC Glucose (mg/dL) 115 H 121 H (75-99) mg/dL AST (14-36) U/L Troponin I (0.000-0.034) ng/mL Albumin (3.5-5.0) g/dL Ur Leukocyte Esterase Small H (Negative) Urine Mucus Rare H (None) /hpf Crossmatch 10/03/19 Range/Units 15:01 RBC (3.80-5.40) m/uL Hgb (11.4-16.0) gm/dL Hct (34.0-46.0) % MCV (80.0-100.0) fL MCH (25.0-35.0) pg MCHC (31.0-37.0) g/dL RDW (11.5-15.5) % Nucleated RBCs (0-0) /100 WBC PT (9.0-12.0) sec INR (<1.2) Chloride (98-107) mmol/L BUN (7-17) mg/dL Creatinine (0.52-1.04) mg/dL Glucose (74-99) mg/dL POC Glucose (mg/dL) 166 H (75-99) mg/dL AST (14-36) U/L Troponin I (0.000-0.034) ng/mL Albumin (3.5-5.0) g/dL Ur Leukocyte Esterase (Negative) Urine Mucus (None) /hpf Crossmatch Thrombosis Risk Factor Assmnt - Choose All That Apply Any of the Below Risk Factors Present?: Yes Each Factor Represents 1 point: Medical pt on bed rest, Obesity (BMI >25) Other Risk Factors: Yes Each Risk Factor Represents 3 Points: Age 75 years or older Thrombosis Risk Factor Assessment Total Risk Factor Score: 5 Thrombosis Risk Factor Assessment Level: High Risk Assessment and Plan Assessment: ASSESSMENT Acute on chronic blood loss anemia Elevated troponins probably demand ischemia Paroxysmal atrial fibrillation- anticoagulation currently on hold due to GI bleed History of coronary artery disease Hypertension Aortic stenosis Chronic kidney disease stage III History of stroke/TIA 3 Type 2 diabetes mellitus Multiple joint osteoarthritis Hard of hearing COPD not in exacerbation PLAN: Patient had 2 units of PRBCs and her hemoglobin is around 6.9. No episodes of active bleeding. Currently anticoagulation on hold. Cardiology on board following the patient. We'll consult GI. Patient has been restarted on her home medications. Continue with Protonix. SCDs for DVT prophylaxis. Further recommendations to follow depending on the progress of the patient.
[2019-10-03 18:16] LABS: Anisocytosis Slight; HCT 28.9 % (34.0-46.0); Hypochromasia Marked; MCH 23.7 pg (25.0-35.0); MCV 76.5 fL (80.0-100.0); Mean Platelet Volume 8.7; Microcytosis Slight; Platelet Count 369 k/uL (150-450); Poikilocytosis Marked; RBC 3.78 m/uL (3.80-5.40); RDW 16.1 % (11.5-15.5)
[2019-10-03] MEDS ORDERED: RIVAROXABAN 15 MG TAB PO SCH (20:00)
[2019-10-03] MEDS: SENNOSIDES 8.6 MG TAB PO SCH (20:41)
[2019-10-03] MEDS: ATORVASTATIN 40 MG TAB PO SCH (20:41)
[2019-10-03] MEDS: SERAX PO PRN (20:41)
[2019-10-03] MEDS: SYMBICORT 80-4.5 MCG INHALER INHALATION SCH (20:54)
[2019-10-03] MEDS: HYDROcodone/APAP 5-325MG 1 EACH TAB PO PRN (22:50)
[2019-10-04] MEDS: PANTOPRAZOLE 40 MG TABLET PO SCH ×2 (06:40→16:41)
[2019-10-04 06:52] LABS: Anisocytosis Slight; Basophils # (A) 0.1 k/uL (0-0.2); Basophils % (A) 2 %; Eosinophils # (A) 0.5 k/uL (0-0.7); Eosinophils % (A) 5 %; HCT 26.2 % (34.0-46.0); HGB 8.2 gm/dL (11.4-16.0); Hypochromasia Marked; Lymphocytes # (A) 1.4 k/uL (1.0-4.8); Lymphocytes % (A) 14 %; MCH 23.9 pg (25.0-35.0); MCHC 31.3 g/dL (31.0-37.0); MCV 76.5 fL (80.0-100.0); Mean Platelet Volume 8.9; Microcytosis Slight; Monocytes # (A) 0.6 k/uL (0-1.0); Monocytes % (A) 6 %; Neutrophils # (A) 6.8 k/uL (1.3-7.7); Neutrophils % (A) 72 %; Platelet Count 318 k/uL (150-450); Poikilocytosis Marked; RBC 3.43 m/uL (3.80-5.40); RDW 16.1 % (11.5-15.5); WBC 9.6 k/uL (3.8-10.6)
[2019-10-04 06:57] LABS: Calcium 8.3 mg/dL (8.4-10.2); Potassium 3.4 mmol/L (3.5-5.1)
--- NOTE | 2019-10-04 08:23 | P.PN ---
Subjective Progress Note Date: 10/04/19 Principal diagnosis: Anxiety with shortness of breath. This is a continue prednisone any an 89-year-old old white female with history of osteoarthritis and history of CHF. Anemia of chronic disease is also noted. She does have mild hemoglobin decrease yesterday and this morning. She seems to be resting comfortably but when awoken, she complains of intermittent anxiety. Appreciate multiple consultants input. No other voiding difficulties. Objective - Vital Signs Vital signs: Vital Signs Temp 98.0 F 10/04/19 04:00 Pulse 64 10/04/19 04:00 Resp 16 10/04/19 04:00 BP 112/57 10/04/19 04:00 Pulse Ox 100 10/04/19 04:00 Intake & Output 10/03/19 10/04/19 10/04/19 18:59 06:59 18:59 Intake Total 1080 Output Total 1000 Balance 80 Weight 48.5 kg 46 kg Intake: IV 160 0.9 160 Oral 300 Blood Product 620 Rc Irr As1 Unit 310 [id number] Output: Urine 1000 Other: Voiding Method Bedpan Bedpan # Voids 1 - Constitutional General appearance: Present: average body habitus - EENT Eyes: Absent: abnormal pupil - Neck Neck: Absent: lymphadenopathy - Respiratory Respiratory: bilateral: CTA - Cardiovascular Rhythm: regular Abnormal Heart Sounds: Absent: S3 Gallop - Gastrointestinal General gastrointestinal: Present: soft. Absent: tenderness - Neurologic Neurologic: Present: CNII-XII intact. Absent: focal deficits - Labs CBC & Chem 7: 10/04/19 05:16 10/04/19 05:16 Labs: Abnormal Lab Results - Last 24 Hours (Table) 10/02/19 10/03/19 10/03/19 Range/Units 21:07 11:45 15:00 RBC (3.80-5.40) m/uL Hgb (11.4-16.0) gm/dL Hct (34.0-46.0) % MCV (80.0-100.0) fL MCH (25.0-35.0) pg RDW (11.5-15.5) % Potassium (3.5-5.1) mmol/L BUN (7-17) mg/dL Creatinine (0.52-1.04) mg/dL Glucose (74-99) mg/dL POC Glucose (mg/dL) 121 H (75-99) mg/dL Calcium (8.4-10.2) mg/dL Ur Leukocyte Esterase Small H (Negative) Urine Mucus Rare H (None) /hpf Crossmatch See Detail 10/03/19 10/03/19 10/04/19 Range/Units 15:01 17:49 05:16 RBC 3.78 L 3.43 L (3.80-5.40) m/uL Hgb 9.0 L D 8.2 L (11.4-16.0) gm/dL Hct 28.9 L 26.2 L (34.0-46.0) % MCV 76.5 L 76.5 L (80.0-100.0) fL MCH 23.7 L 23.9 L (25.0-35.0) pg RDW 16.1 H 16.1 H (11.5-15.5) % Potassium (3.5-5.1) mmol/L BUN (7-17) mg/dL Creatinine (0.52-1.04) mg/dL Glucose (74-99) mg/dL POC Glucose (mg/dL) 166 H (75-99) mg/dL Calcium (8.4-10.2) mg/dL Ur Leukocyte Esterase (Negative) Urine Mucus (None) /hpf Crossmatch 10/04/19 Range/Units 05:16 RBC (3.80-5.40) m/uL Hgb (11.4-16.0) gm/dL Hct (34.0-46.0) % MCV (80.0-100.0) fL MCH (25.0-35.0) pg RDW (11.5-15.5) % Potassium 3.4 L (3.5-5.1) mmol/L BUN 34 H (7-17) mg/dL Creatinine 1.92 H (0.52-1.04) mg/dL Glucose 120 H (74-99) mg/dL POC Glucose (mg/dL) (75-99) mg/dL Calcium 8.3 L (8.4-10.2) mg/dL Ur Leukocyte Esterase (Negative) Urine Mucus (None) /hpf Crossmatch Assessment and Plan (1) Dyspnea Current Visit: Yes Status: Acute Code(s): R06.00 - DYSPNEA, UNSPECIFIED SNOMED Code(s): 834524384 (2) Elevated troponin Current Visit: Yes Status: Acute Code(s): R74.8 - ABNORMAL LEVELS OF OTHER SERUM ENZYMES SNOMED Code(s): 335546886 (3) Weakness Current Visit: Yes Status: Acute Code(s): R53.1 - WEAKNESS SNOMED Code(s): 71817301 (4) Anemia Current Visit: No Status: Acute Code(s): D64.9 - ANEMIA, UNSPECIFIED SNOMED Code(s): 011973977 (5) CHF (congestive heart failure) Current Visit: No Status: Acute Code(s): I50.9 - HEART FAILURE, UNSPECIFIED SNOMED Code(s): 49506300 (6) COPD (chronic obstructive pulmonary disease) Current Visit: No Status: Acute Code(s): J44.9 - CHRONIC OBSTRUCTIVE PULMONARY DISEASE, UNSPECIFIED SNOMED Code(s): 08287169 (7) Diabetes Current Visit: No Status: Acute Code(s): E11.9 - TYPE 2 DIABETES MELLITUS WITHOUT COMPLICATIONS SNOMED Code(s): 12074977 Plan: We'll go ahead and continue current regimen of treatment. Symptomatic control anxiety with insomnia. Await cardiology testing today. See orders otherwise. Time with Patient: Greater than 30
[2019-10-04 08:35] LABS: Mixed Population RBC Present
[2019-10-04 08:37] LABS: Polychromasia Present
[2019-10-04] MEDS: FUROSEMIDE 40 MG TAB PO SCH (09:18)
[2019-10-04] MEDS: METOPROLOL TARTRATE 50 MG TAB PO SCH ×2 (09:18→21:50)
[2019-10-04] MEDS: ISOSORBIDE MONONITRATE ER 30 MG TAB.ER.24H PO SCH (09:18)
[2019-10-04] MEDS: SYMBICORT 80-4.5 MCG INHALER INHALATION SCH ×2 (10:54→19:32)
[2019-10-04] MEDS ORDERED: POTASSIUM CHLORIDE ER 10 MEQ TAB.ER.PRT PO STA (11:06)
[2019-10-04] MEDS: MONTELUKAST 10 MG TAB PO SCH (12:17)
--- NOTE | 2019-10-04 12:27 | ECHOF ---
Referral Reason:sob, elev trop MEASUREMENTS -------- HEIGHT: 147.3 cm WEIGHT: 45.8 kg BP: 112/57 RVIDd: 3.3 cm (< 3.3) IVSd: 1.2 cm (0.6 - 1.1) LVIDd: 3.8 cm (3.9 - 5.3) LVPWd: 1.2 cm (0.6 - 1.1) IVSs: 1.5 cm LVIDs: 3.0 cm LVPWs: 1.6 cm LA Diam: 3.2 cm (2.7 - 3.8) LAESV Index (A-L): 45.44 ml/m Ao Diam: 3.0 cm (2.0 - 3.7) AV Cusp: 1.5 cm (1.5 - 2.6) MV EXCURSION: 7.289 mm (> 18.000) MV EF SLOPE: 33 mm/s (70 - 150) EPSS: 0.1 cm MV E Isacc: 1.44 m/s MV DecT: 179 ms MV A Isacc: 1.35 m/s MV E/A Ratio: 1.06 AV maxP.30 mmHg AV meanP.72 mmHg AR PHT: 651 ms RAP: 5.00 mmHg RVSP: 49.95 mmHg FINDINGS -------- Sinus rhythm. This was a technically difficult study with suboptimal parasternal views. The left ventricular size is normal. There is borderline concentric left ventricular hypertrophy. Overall left ventricular systolic function is low-normal with, an EF between 50 - 55 %. The right ventricle is mildly enlarged. LA is severely dilated >40 ml/m2 The right atrium is normal in size. The atrial septal defect shunts from left to right. There is moderate aortic valve sclerosis. There is mild aortic regurgitation. There is moderate a ortic stenosis present. Peak/mean gradient across the Aortic Valve is 51.30mmHg / 27.72mmHg. The mitral valve leaflets are mildly thickened. Moderate mitral annular calcification present. Se delbert mitral regurgitation is present. Moderate to severe tricuspid regurgitation present. There is moderate pulmonary hypertension. The right ventricular systolic pressure, as measured by Doppler, is 49.95mmHg. Trace/mild (physiologic) pulmonic regurgitation. The aortic root size is normal. IVC Not well visulized. There is no pericardial effusion. CONCLUSIONS -------- 1. Sinus rhythm. 2. This was a technically difficult study with suboptimal parasternal views. 3. The left ventricular size is normal. 4. There is borderline concentric left ventricular hypertrophy. 5. Overall left ventricular systolic function is low-normal with, an EF between 50 - 55 %. 6. The right ventricle is mildly enlarged. 7. LA is severely dilated >40 ml/m2 8. The right atrium is normal in size. 9. The atrial septal defect shunts from left to right. 10. There is moderate aortic valve sclerosis. 11. There is mild aortic regurgitation. 12. There is moderate aortic stenosis present. 13. Peak/mean gradient across the Aortic Valve is 51.30mmHg / 27.72mmHg. 14. The mitral valve leaflets are mildly thickened. 15. Moderate mitral annular calcification present. 16. Severe mitral regurgitation is present. 17. Moderate to severe tricuspid regurgitation present. 18. There is moderate pulmonary hypertension. 19. The right ventricular systolic pressure, as measured by Doppler, is 49.95mmHg. 20. Trace/mild (physiologic) pulmonic regurgitation. 21. The aortic root size is normal. 22. IVC Not well visulized. 23. There is no pericardial effusion. MOCK UP MAKER: Bee Payan RDCS
[2019-10-04 13:35] LABS: Glucose,Whole Blood 182 mg/dL (75-99)
[2019-10-04] MEDS: POTASSIUM CHLORIDE ER 20 MEQ TAB.ER PO SCH ×3 (14:15→16:41)
[2019-10-04] MEDS: INSULIN DETEMIR (LEVEMIR) 100 UNIT/ML SYR SQ SCH (14:50)
--- NOTE | 2019-10-04 15:24 | P.PN ---
Subjective Progress Note Date: 10/04/19 This is a pleasant 89-year-old female past medical history significant for coronary artery disease status post multiple PCI, paroxysmal atrial fibrillation on long-term anticoagulation, hypertension and dyslipidemia. She also has aortic stenosis. Most recently in 2018 she underwent cardiac cat heterization revealing the LAD is widely patent at the site of previous stenting, diffuse disease in the previous stented RCA, nondominant circumflex with a 35-40% stenosis. She was advised maximizing her medical therapy at that time. She follows in the office with Dr. Nunez. Cardiology consultation was requested initially because of abnormality in troponin. On arrival here the patient was found to have a hemoglobin of 5.4 and subsequently underwent a blood transfusion with one unit of packed red blood cells. This morning her hemoglobin is 8.2. She sitting up in the chair today, appears to be comfortable. Blood pressure 140/60 with a heart rate in the 60s, 100% on 2 L of oxygen. Objective - Vital Signs Vital signs: Vital Signs Temp 97.7 F 10/04/19 15:10 Pulse 67 10/04/19 15:11 Resp 16 10/04/19 15:11 BP 140/65 10/04/19 15:10 Pulse Ox 100 10/04/19 15:10 Intake & Output 10/03/19 10/04/19 10/04/19 18:59 06:59 18:59 Intake Total 1080 900 Output Total 1000 300 Balance 80 600 Weight 48.5 kg 46 kg Intake: IV 160 20 0.9 160 Invasive Line 1 20 Oral 300 880 Blood Product 620 Rc Irr As1 Unit 310 [id number] Output: Urine 1000 300 Other: Voiding Method Bedpan Bedpan Bedside Commode # Voids 1 - Exam CONSTITUTIONAL: No apparent distress. HEENT: Head is normocephalic. Pupils are equal, round. Sclerae anicteric. Mucous membranes of the mouth are moist. No JVD. No carotid bruit. CHEST EXAMINATION: Scattered rhonchi and bibasilar rales, no wheezes. No chest wall tenderness is noted on palpation or with deep breathing. HEART EXAMINATION: Irregular rate and rhythm. S1, S2 heard. Systolic ejection murmur at the base, no gallops or rub. ABDOMEN: Soft, nontender. Positive bowel sounds. EXTREMITIES: 2+ peripheral pulses, no lower extremity edema and no calf tenderness. NEUROLOGIC EXAMINATION: Patient is awake, alert and oriented x3. - Labs CBC & Chem 7: 10/04/19 05:16 10/04/19 05:16 Labs: Abnormal Lab Results - Last 24 Hours (Table) 10/02/19 10/03/19 10/03/19 Range/Units 21:07 15:00 17:49 RBC 3.78 L (3.80-5.40) m/uL Hgb 9.0 L D (11.4-16.0) gm/dL Hct 28.9 L (34.0-46.0) % MCV 76.5 L (80.0-100.0) fL MCH 23.7 L (25.0-35.0) pg RDW 16.1 H (11.5-15.5) % Potassium (3.5-5.1) mmol/L BUN (7-17) mg/dL Creatinine (0.52-1.04) mg/dL Glucose (74-99) mg/dL POC Glucose (mg/dL) (75-99) mg/dL Calcium (8.4-10.2) mg/dL Ur Leukocyte Esterase Small H (Negative) Urine Mucus Rare H (None) /hpf Crossmatch See Detail 10/04/19 10/04/19 10/04/19 Range/Units 05:16 05:16 13:32 RBC 3.43 L (3.80-5.40) m/uL Hgb 8.2 L (11.4-16.0) gm/dL Hct 26.2 L (34.0-46.0) % MCV 76.5 L (80.0-100.0) fL MCH 23.9 L (25.0-35.0) pg RDW 16.1 H (11.5-15.5) % Potassium 3.4 L (3.5-5.1) mmol/L BUN 34 H (7-17) mg/dL Creatinine 1.92 H (0.52-1.04) mg/dL Glucose 120 H (74-99) mg/dL POC Glucose (mg/dL) 182 H (75-99) mg/dL Calcium 8.3 L (8.4-10.2) mg/dL Ur Leukocyte Esterase (Negative) Urine Mucus (None) /hpf Crossmatch Assessment and Plan Plan: ASSESSMENT Acute on chronic anemia Elevated troponin secondary to an oxygen supply demand mismatch, type II event Aortic stenosis Paroxysmal atrial fibrillation on long-term anticoagulation History of coronary artery disease status post multiple PCI Hypertension Anemia Plan From cardiology's perspective, we will continue to hold off all blood thinners. Replace potassium. We will follow this patient along with you now on an as- needed basis only, please don't hesitate to call with any questions. DNP note has been reviewed, I agree with a documented findings and plan of care. Patient was seen and examined.
[2019-10-04] MEDS: SENNOSIDES 8.6 MG TAB PO SCH (20:46)
[2019-10-04] MEDS: ATORVASTATIN 40 MG TAB PO SCH (21:50)
[2019-10-04] MEDS: HYDROcodone/APAP 5-325MG 1 EACH TAB PO PRN (21:50)
[2019-10-04] MEDS: SERAX PO PRN (21:50)
--- NOTE | 2019-10-04 22:18 | P.CONS ---
History of Present Illness - Reason for Consult Consult date: 10/04/19 Anemia, GI bleed Requesting physician: Georgi Thayer - Chief Complaint Shortness of breath, weakness - History of Present Illness 89-year-old female with multiple medical comorbidities including COPD, congestive heart failure, hypertension, diabetes mellitus, hyperlipidemia, osteoarthritis, atrial fibrillation on anticoagulation therapy presents to the hospital due to weakness and shortness of breath. Of note history is being taken in combination including review of the electronic medical record and conversation with the patient in left. On presentation to the hospital patient was found to have a microcytic anemia with a hemoglobin of 5.4. She did have stool testing which was negative for occult blood. Previously she had been seen with complaints of bright red blood per rectum. She continues to report intermittent episodes of blood with wiping on the toilet paper. She has also noticed some dark-colored stool over the past 2-3 weeks. The patient has been on Xarelto therapy for atrial fibrillation. The patient was subsequently transfused and found to have a hemoglobin of 8.2 today. She reports her last colonoscopy was approximately 10 years ago to her recollection. She denies any NSAID use. Review of Systems REVIEW OF SYSTEMS: CONSTITUTIONAL: Denies any fevers, chills, but does report fatigue, weakness and loss of weight. CARDIOVASCULAR: Denies any chest pain, palpitations high or low blood pressures does have a history of atrial fibrillation. RESPIRATORY: Denies any hemoptysis or cough but does report shortness of breath. GENITOURINARY: No dysuria or hematuria. MUSCULOSKELETAL: No focal weakness reported. SKIN: Denies any new rashes or lesions, jaundice or pallor. PSYCHIATRIC: Denies any depression or anxiety. NEUROLOGY: Denies headache, denies any new focal deficits. EARS/NOSE/THROAT: No recent hearing change, congestion, nasal discharge or sore throat. EYES: No pain in eyes, discharge or change in vision. GASTROINTESTINAL: As per HPI. Past Medical History Past Medical History: Atrial Fibrillation, Coronary Artery Disease (CAD), Chest Pain / Angina, Heart Failure, COPD, CVA/TIA, Diabetes Mellitus, GERD/Reflux, Hearing Disorder / Deafness, Hyperlipidemia, Hypertension, Myocardial Infarction (MA), Osteoarthritis (OA), Pneumonia, Renal Disease, Skin Disorder Additional Past Medical History / Comment(s): IDDM type II, frequent pneumonia, aspiration pneumonia with sepsis, renal insufficiency, recurrent UTIs, TIA x 3, difficulty swallowing-crushes meds and puts them in yogurt-past EGD/dilations, anemia, eczema, "lazy bowel" but pt states anymore she goes from diarrhea to constipation easily, generalized arthritis, chronic baci pain, hiatal hernia Last Myocardial Infarction Date:: 1998, 09/21/17 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 MDRO Source:: VRE URINE Past Surgical History: Cholecystectomy, Heart Catheterization With Stent Additional Past Surgical History / Comment(s): cataracts w/lens implants, ectopic with one ovary/tube removed, heart caths :04/30/96 stent to rca, 03/18/2000 stent to mid rca, 07/22/17 stent to lad Past Anesthesia/Blood Transfusion Reactions: Previous Problems w/ Anesthesia Additional Past Anesthesia/Blood Transfusion Reaction / Comm: difficulty breathing after anesthesia Date of Last Stent Placement:: 06/2017 Past Psychological History: Depression Additional Psychological History / Comment(s): Pt resides in an apartment at [facility]. She ambulates with a walker. Her daughter is very helpful and is in an apt above her. Pt has chore person from [place] on aging. She no longer drives, family takes her to [email or web address]. She goes up to her daughter's for supper and manages her own medication. Smoking Status: Former smoker Past Alcohol Use History: None Reported Additional Past Alcohol Use History / Comment(s): Patient has history of smoking 3 packs per day started smoking at age 16 and quit in 1997 Past Drug Use History: None Reported - Past Family History Father History Unknown: Yes Family Medical History: Myocardial Infarction (MA) Additional Family Medical History / Comment(s): Father had a MA at the age of 50 yrs. He lived to be 75yrs old. Mother History Unknown: Yes Family Medical History: Myocardial Infarction (MA) Additional Family Medical History / Comment(s): Mother of a MA at about age 80yrs. Medications and Allergies Home Medications Medication Instructions Recorded Confirmed Type HYDROcodone/APAP 5-325MG [[place] 1 tab PO BID PRN 02/02/14 10/02/19 History 5-325] Ipratropium-Albuterol Nebulize 3 ml INHALATION RT-TID PRN 08/20/16 10/02/19 History [Duoneb 0.5 mg-3 mg/3 ml Soln] Montelukast [Singulair] 10 mg PO DAILY@1200 05/17/17 10/02/19 History Fluticasone/Salmeterol [Advair 1 puff INHALATION RT-BID 05/18/17 10/02/19 History 250-50 Diskus] Metoprolol Tartrate [Lopressor] 100 mg PO BID 07/18/17 10/02/19 History Sennosides [Senna] 8.6 mg PO HS 07/18/17 10/02/19 History Atorvastatin [Lipitor] 40 mg PO HS #30 tab 07/23/17 10/02/19 Rx Nitroglycerin Sl Tabs [Nitrostat] 0.4 mg SUBLINGUAL Q5M PRN #25 tab 07/23/17 10/02/19 Rx Isosorbide Mononitrate ER [Imdur] 30 mg PO DAILY #30 tab.er.24h 09/23/17 10/02/19 Rx Rivaroxaban [Xarelto] 15 mg PO HS@199912/11/17 10/02/19 History Acetaminophen [Tylenol] 1,000 mg PO Q4H PRN 05/14/18 10/02/19 History Insulin Detemir [Levemir Flextouch] 8 unit SQ DAILY@1430 05/14/18 10/02/19 His tory Oxazepam [Serax] 15 mg PO BID #60 capsule 10/05/18 10/02/19 Rx Furosemide [Lasix] 40 mg PO DAILY 01/08/19 10/02/19 History Pantoprazole [Protonix] 40 mg PO BID #60 tablet. 01/13/19 10/02/19 Rx Allergies Allergy/AdvReac Type Severity Reaction Status Date / Time adhesive tape Allergy Rash/Hives Verified 10/02/19 23:23 amoxicillin trihydrate Allergy Unknown Verified 10/02/19 23:23 [From Augmentin] clindamycin HCl Allergy Unknown Verified 10/02/19 23:23 [From Cleocin] clindamycin palmitate HCl Allergy Unknown Verified 10/02/19 23:23 [From Cleocin] clindamycin phosphate Allergy Unknown Verified 10/02/19 23:23 [From Cleocin] codeine Allergy Unknown Verified 10/02/19 23:23 nitrofurantoin Allergy Unknown Verified 10/02/19 23:23 [From Macrobid] nitrofurantoin Allergy Unknown Verified 10/02/19 23:23 macrocrystalline [From Macrobid] Penicillins Allergy Unknown Verified 10/02/19 23:23 potassium clavulanate Allergy Unknown Verified 10/02/19 23:23 [From Augmentin] prednisone Allergy Unknown Verified 10/02/19 23:23 quinine Allergy Unknown Verified 10/02/19 23:23 Sulfa (Sulfonamide Allergy Unknown Verified 10/02/19 23:23 Antibiotics) sulfamethoxazole Allergy Unknown Verified 10/02/19 23:23 [From Bactrim] trimethoprim [From Bactrim] Allergy Unknown Verified 10/02/19 23:23 lorazepam [From Ativan] AdvReac Confusion Verified 10/02/19 23:23 Physical Exam Vitals: Vital Signs Temp Pulse Resp BP Pulse Ox 10/04/19 20:00 97.7 F 76 19 153/66 100 10/04/19 19:36 98 10/04/19 15:11 67 16 10/04/19 15:10 97.7 F 67 16 140/65 100 10/04/19 12:00 97.7 F 64 16 146/68 100 10/04/19 09:16 97.8 F 65 16 132/57 94 L 10/04/19 09:00 65 16 10/04/19 04:00 98.0 F 64 16 112/57 100 10/03/19 23:25 62 18 10/03/19 23:23 97.7 F 62 18 121/67 100 Intake and Output 10/04/19 10/04/19 10/04/19 06:59 14:59 22:59 Intake Total 890 210 Output Total 300 Balance 590 210 Intake: IV 10 10 Invasive Line 1 10 10 Oral 880 200 Output: Urine 300 Other: Voiding Method Bedpan Bedside Commode Bedside Commode # Voids 1 1 # Bowel Movements 1 Weight 46 kg On physical examination, patient appears comfortable in no apparent distress. HEAD: Normocephalic, atraumatic. EYES: No scleral icterus. No conjunctival injection. MOUTH: No lesions, tongue midline. NECK: Trachea midline, no gross abnormalities. CHEST: Decreased air entry in all lung scruggs. HEART: S1-S2 appreciated. ABDOMEN: Soft, nontender. Bowel sounds are positive. No organomegaly. No guarding or rigidity. EXTREMITIES: No pedal edema. SKIN: No rashes, no jaundice. NEUROLOGIC: Alert and oriented to person and place. Results CBC & Chem 7: 10/04/19 05:16 10/04/19 05:16 Labs: Abnormal Lab Results - Last 24 Hours (Table) 10/04/19 10/04/19 10/04/19 Range/Units 05:16 05:16 13:32 RBC 3.43 L (3.80-5.40) m/uL Hgb 8.2 L (11.4-16.0) gm/dL Hct 26.2 L (34.0-46.0) % MCV 76.5 L (80.0-100.0) fL MCH 23.9 L (25.0-35.0) pg RDW 16.1 H (11.5-15.5) % Potassium 3.4 L (3.5-5.1) mmol/L BUN 34 H (7-17) mg/dL Creatinine 1.92 H (0.52-1.04) mg/dL Glucose 120 H (74-99) mg/dL POC Glucose (mg/dL) 182 H (75-99) mg/dL Calcium 8.3 L (8.4-10.2) mg/dL Chest x-ray: report reviewed (Pulmonary fibrosis on chest x-ray.) Assessment and Plan (1) Anemia associated with acute blood loss Narrative/Plan: 89-year-old female with multiple medical comorbidities including atrial fibrillation on anticoagulation therapy who presented to the hospital due to weakness. Patient reports intermittent episodes of bright red blood per rectum as well as dark colored stool. We'll then was depressed of 5.4 on presentation currently 8.2 status post transfusion. No reports of abdominal pain. She reports remote history of prior endoscopic evaluation. Unknown etiology may be related to upper GI bleed secondary to peptic ulcer disease, esophagitis, gastritis or lower GI pathology such as perirectal disease given bright red blood with wiping, diverticular disease, AVM or other etiology. Current Visit: Yes Status: Acute Code(s): D62 - ACUTE POSTHEMORRHAGIC ANEMIA SNOMED Code(s): 159014729 (2) GI bleed Current Visit: No Status: Acute Code(s): K92.2 - GASTROINTESTINAL HEMORRHAGE, UNSPECIFIED SNOMED Code(s): 03260865 Plan: Supportive care Okay for diet Continue to monitor hemoglobin and hematocrit and transfuse as needed Continue to hold anticoagulation therapy at this time Continue Protonix therapy Continue to monitor stool output Laboratory evaluation of anemia ordered If endoscopic evaluation is desired with EGD and colonoscopy for further evaluation of anemia and symptoms of dark-colored stool and blood per rectum patient will need clearance both medically and by the cardiology service, given her age and multiple comorbidities she is at higher risk for complications both secondary to the procedure as well as anesthesia and should have cardiac and lung function optimized prior to the procedure Taken for allowing us to participate in the care of this patient we will continue to follow
[2019-10-05 06:18] LABS: Reticulocyte % 1.1 % (0.5-2.0)
[2019-10-05 06:22] LABS: Anisocytosis Slight; HCT 26.3 % (34.0-46.0); HGB 7.7 gm/dL (11.4-16.0); Hypochromasia Marked; MCH 22.1 pg (25.0-35.0); MCHC 29.1 g/dL (31.0-37.0); MCV 75.8 fL (80.0-100.0); Mean Platelet Volume 8.8; Microcytosis Slight; Platelet Count 278 k/uL (150-450); Poikilocytosis Marked; RBC 3.46 m/uL (3.80-5.40); RDW 17.7 % (11.5-15.5); WBC 9.3 k/uL (3.8-10.6)
[2019-10-05 06:27] LABS: Albumin 2.6 g/dL (3.5-5.0); Calcium 8.3 mg/dL (8.4-10.2); Potassium 4.7 mmol/L (3.5-5.1); Total Bilirubin 0.6 mg/dL (0.2-1.3); Total Protein 5.9 g/dL (6.3-8.2)
[2019-10-05] MEDS: PANTOPRAZOLE 40 MG TABLET PO SCH ×2 (06:58→17:45)
[2019-10-05] MEDS: SYMBICORT 80-4.5 MCG INHALER INHALATION SCH ×2 (07:22→20:55)
--- NOTE | 2019-10-05 07:22 | P.PN ---
Subjective Principal diagnosis: Anxiety with shortness of breath. This is a continue prednisone any an 89-year-old old white female with history of osteoarthritis and history of CHF. Anemia of chronic disease is also noted. She does have mild hemoglobin decrease yesterday and this morning. She seems to be resting comfortably but when awoken, she complains of intermittent anxiety. Appreciate multiple consultants input. No other voiding difficulties. Otherwise, I told patient to increase by mouth intake. I'm reluctant to do any type of invasive procedure unless overt bleeding is noted. Objective - Vital Signs Vital signs: Vital Signs Temp 98.0 F 10/05/19 04:00 Pulse 64 10/05/19 04:00 Resp 16 10/05/19 04:00 BP 101/42 10/05/19 04:00 Pulse Ox 100 10/05/19 04:00 Intake & Output 10/04/19 10/05/19 10/05/19 18:59 06:59 18:59 Intake Total 1100 Output Total 300 Balance 800 Weight 43.1 kg Intake: IV 20 Invasive Line 1 20 Oral 1080 Output: Urine 300 Other: Voiding Method Bedside Commode Bedside Commode # Voids 1 1 # Bowel Movements 1 - Constitutional General appearance: Present: average body habitus - EENT Eyes: Absent: abnormal pupil - Neck Neck: Absent: lymphadenopathy - Respiratory Respiratory: bilateral: CTA - Cardiovascular Rhythm: regular Heart sounds: normal: S1, S2 Abnormal Heart Sounds: Absent: S3 Gallop - Gastrointestinal General gastrointestinal: Present: soft. Absent: tenderness - Integumentary Integumentary: Absent: cyanotic - Neurologic Neurologic: Present: CNII-XII intact - Labs CBC & Chem 7: 10/05/19 05:29 10/05/19 05:29 Labs: Abnormal Lab Results - Last 24 Hours (Table) 10/04/19 10/04/19 10/05/19 Range/Units 05:16 13:32 05:29 RBC 3.43 L 3.46 L (3.80-5.40) m/uL Hgb 8.2 L 7.7 L (11.4-16.0) gm/dL Hct 26.2 L 26.3 L (34.0-46.0) % MCV 76.5 L 75.8 L (80.0-100.0) fL MCH 23.9 L 22.1 L (25.0-35.0) pg MCHC 29.1 L (31.0-37.0) g/dL RDW 16.1 H 17.7 H (11.5-15.5) % Chloride (98-107) mmol/L BUN (7-17) mg/dL Creatinine (0.52-1.04) mg/dL POC Glucose (mg/dL) 182 H (75-99) mg/dL Calcium (8.4-10.2) mg/dL Total Protein (6.3-8.2) g/dL Albumin (3.5-5.0) g/dL 10/05/19 Range/Units 05:29 RBC (3.80-5.40) m/uL Hgb (11.4-16.0) gm/dL Hct (34.0-46.0) % MCV (80.0-100.0) fL MCH (25.0-35.0) pg MCHC (31.0-37.0) g/dL RDW (11.5-15.5) % Chloride 110 H (98-107) mmol/L BUN 28 H (7-17) mg/dL Creatinine 1.61 H (0.52-1.04) mg/dL POC Glucose (mg/dL) (75-99) mg/dL Calcium 8.3 L (8.4-10.2) mg/dL Total Protein 5.9 L (6.3-8.2) g/dL Albumin 2.6 L (3.5-5.0) g/dL Assessment and Plan (1) Dyspnea Current Visit: Yes Status: Acute Code(s): R06.00 - DYSPNEA, UNSPECIFIED SNOMED Code(s): 493762509 (2) Elevated troponin Current Visit: Yes Status: Acute Code(s): R74.8 - ABNORMAL LEVELS OF OTHER SERUM ENZYMES SNOMED Code(s): 758967678 (3) Weakness Current Visit: Yes Status: Acute Code(s): R53.1 - WEAKNESS SNOMED Code(s): 65615804 (4) Anemia Current Visit: Yes Status: Acute Code(s): D64.9 - ANEMIA, UNSPECIFIED SNOMED Code(s): 844413507 (5) CHF (congestive heart failure) Current Visit: No Status: Acute Code(s): I50.9 - HEART FAILURE, UNSPECIFIED SNOMED Code(s): 34922039 (6) COPD (chronic obstructive pulmonary disease) Current Visit: No Status: Acute Code(s): J44.9 - CHRONIC OBSTRUCTIVE PULMONARY DISEASE, UNSPECIFIED SNOMED Code(s): 36943419 (7) Diabetes Current Visit: No Status: Acute Code(s): E11.9 - TYPE 2 DIABETES MELLITUS WITHOUT COMPLICATIONS SNOMED Code(s): 66382010 Plan: We'll go ahead and continue current regimen of treatment. Symptomatic control anxiety with insomnia. Again, I'm very reluctant to do any type of invasive procedure was absolutely necessary. Withhold anticoagulation at this time. Prognosis is guarded See orders otherwise.
[2019-10-05] MEDS: METOPROLOL TARTRATE 50 MG TAB PO SCH ×2 (09:06→21:03)
[2019-10-05] MEDS: ISOSORBIDE MONONITRATE ER 30 MG TAB.ER.24H PO SCH (09:07)
[2019-10-05] MEDS: FUROSEMIDE 40 MG TAB PO SCH (09:07)
[2019-10-05] MEDS: HYDROcodone/APAP 5-325MG 1 EACH TAB PO PRN ×2 (10:28→21:04)
[2019-10-05] MEDS: MONTELUKAST 10 MG TAB PO SCH (10:31)
[2019-10-05 12:11] LABS: Glucose,Whole Blood 180 mg/dL (75-99)
[2019-10-05 14:10] LABS: Glucose,Whole Blood 168 mg/dL (75-99)
[2019-10-05] MEDS: INSULIN DETEMIR (LEVEMIR) 100 UNIT/ML SYR SQ SCH (14:10)
--- NOTE | 2019-10-05 15:40 | CDI ---
Documentation Clarification Form Date: 10/05/2019 03:33:09 PM From: Kimmie Guzman CCS, CCDS Admit Date: 10/03/2019 12:00:00 AM Patient Name: Sonal Ulloa Visit Number: [id number] Discharge Date: ATTENTION: The Clinical Documentation Specialists (CDI) and [facility] Coding Staff appreciate your assistance in clarifying documentation. Please respond to the clarification below the line at the bottom and electronically sign. The CDI & [facility] Coding staff will review the response and follow-up if needed. Please note: Queries are made part of the Legal Health Record. If you have any questions, please contact the author of this message via ITS. Dr. Silverio Nunez: Per the 10/03 Cardiology consult, the following is documented: " Elevated troponin secondary to an oxygen supply demand mismatch, type II event." Patient History/Risk Factors: Paroxysmal atrial fibrillation, iron deficiency anemia, hypertension & CAD status post multiple stents. Clinical Indicators: Patient presented to the ED with SOB & weakness, diagnosed with possible upper GI bleed & acute blood loss anemia. Troponin: 0.229^^, 0.201^^, 0.194^^ EKG Results: R 82 sinus rhythm w/PACs, LBBB, Atrial fibrillation. Treatment: Transfused 2 units PRBCs, po ASA, IV Lasix, Nitro sl, INH Symbicort, po Kcl. In order to capture the severity of condition and necessary documentation specificity, please clarify: Myocardial Infarction ruled out Myocarcial Infarction ruled in: o Type of Infarction: o NSTEMI o Myocardial Infarction Type II o Other Condition, please specify o Unable to determine Last Revision: June 2017) Myocardial Infarction Type II MTDD
[2019-10-05 16:32] LABS: Glucose,Whole Blood 174 mg/dL (75-99)
[2019-10-05 16:51] LABS: % Iron Saturation 4.58 (12.00-45.00); Ferritin 16.4 ng/mL (10.0-291.0); Folate, Serum 12.1 ng/mL
[2019-10-05 20:34] LABS: Glucose,Whole Blood 165 mg/dL (75-99)
[2019-10-05] MEDS: SENNOSIDES 8.6 MG TAB PO SCH (21:04)
[2019-10-05] MEDS: ATORVASTATIN 40 MG TAB PO SCH (21:04)
--- NOTE | 2019-10-05 21:44 | P.PN ---
Subjective Progress Note Date: 10/05/19 Principal diagnosis: Anemia Patient is seen lying in bed with her daughter at bedside. No signs or symptoms of GI bleeding at this time. Tolerating her diet. Objective - Vital Signs Vital signs: Vital Signs Temp 97.7 F 10/05/19 08:00 Pulse 69 10/05/19 10:30 Resp 18 10/05/19 10:30 BP 164/73 10/05/19 10:30 Pulse Ox 100 10/05/19 10:30 Intake & Output 10/04/19 10/05/19 10/05/19 18:59 06:59 18:59 Intake Total 1100 360 Output Total 300 Balance 800 360 Weight 43.1 kg Intake: IV 20 Invasive Line 1 20 Oral 1080 360 Output: Urine 300 Other: Voiding Method Bedside Commode Bedside Commode Bedside Commode # Voids 1 1 1 # Bowel Movements 1 0 - Exam On physical examination, patient appears comfortable in no apparent distress. HEAD: Normocephalic, atraumatic. EYES: No scleral icterus. No conjunctival injection. MOUTH: No lesions, tongue midline. NECK: Trachea midline, no gross abnormalities. ABDOMEN: Soft, reducible midline abdominal noted. Bowel sounds are positive. No organomegaly. No guarding or rigidity. EXTREMITIES: No pedal edema. SKIN: No rashes, no jaundice. NEUROLOGIC: Alert and oriented. No focal deficits. - Labs CBC & Chem 7: 10/05/19 05:29 10/05/19 05:29 Labs: Abnormal Lab Results - Last 24 Hours (Table) 10/05/19 10/05/19 10/05/19 Range/Units 05:29 05:29 11:51 RBC 3.46 L (3.80-5.40) m/uL Hgb 7.7 L (11.4-16.0) gm/dL Hct 26.3 L (34.0-46.0) % MCV 75.8 L (80.0-100.0) fL MCH 22.1 L (25.0-35.0) pg MCHC 29.1 L (31.0-37.0) g/dL RDW 17.7 H (11.5-15.5) % Chloride 110 H (98-107) mmol/L BUN 28 H (7-17) mg/dL Creatinine 1.61 H (0.52-1.04) mg/dL POC Glucose (mg/dL) 180 H (75-99) mg/dL Calcium 8.3 L (8.4-10.2) mg/dL Total Protein 5.9 L (6.3-8.2) g/dL Albumin 2.6 L (3.5-5.0) g/dL 10/05/19 Range/Units 14:08 RBC (3.80-5.40) m/uL Hgb (11.4-16.0) gm/dL Hct (34.0-46.0) % MCV (80.0-100.0) fL MCH (25.0-35.0) pg MCHC (31.0-37.0) g/dL RDW (11.5-15.5) % Chloride (98-107) mmol/L BUN (7-17) mg/dL Creatinine (0.52-1.04) mg/dL POC Glucose (mg/dL) 168 H (75-99) mg/dL Calcium (8.4-10.2) mg/dL Total Protein (6.3-8.2) g/dL Albumin (3.5-5.0) g/dL Assessment and Plan (1) Anemia associated with acute blood loss Narrative/Plan: 89-year-old female with multiple medical comorbidities including atrial fibrillation on anticoagulation therapy who presented to the hospital due to weakness. Patient reports intermittent episodes of bright red blood per rectum as well as dark colored stool. We'll then was depressed of 5.4 on presentation currently 8.2 status post transfusion. No reports of abdominal pain. She reports remote history of prior endoscopic evaluation. Unknown etiology may be related to upper GI bleed secondary to peptic ulcer disease, esophagitis, gastritis or lower GI pathology such as perirectal disease given bright red blood with wiping, diverticular disease, AVM or other etiology. Current Visit: Yes Status: Acute Code(s): D62 - ACUTE POSTHEMORRHAGIC ANEMIA SNOMED Code(s): 223002666 (2) GI bleed Current Visit: No Status: Acute Code(s): K92.2 - GASTROINTESTINAL HEMORRHAGE, UNSPECIFIED SNOMED Code(s): 13277375 Plan: Supportive care Okay for diet Continue to monitor hemoglobin and hematocrit and transfuse as needed Continue to hold anticoagulation therapy at this time Continue Protonix therapy Continue to monitor stool output Agree with conservative medical management of anemia this time, however if endoscopic evaluation is desired with EGD and colonoscopy patient will need clearance both medically and by the cardiology services Thank you for allowing us to participate in the care of this patient we will continue to follow
[2019-10-06 05:58] LABS: Glucose,Whole Blood 132 mg/dL (75-99)
[2019-10-06 06:15] LABS: Anisocytosis Slight; HCT 27.8 % (34.0-46.0); HGB 8.2 gm/dL (11.4-16.0); Hypochromasia Marked; MCH 22.7 pg (25.0-35.0); MCHC 29.7 g/dL (31.0-37.0); MCV 76.6 fL (80.0-100.0); Mean Platelet Volume 7.8; Microcytosis Moderate; Platelet Count 261 k/uL (150-450); Poikilocytosis Marked; RBC 3.62 m/uL (3.80-5.40); RDW 19.2 % (11.5-15.5); WBC 8.4 k/uL (3.8-10.6)
[2019-10-06 06:27] LABS: Albumin 2.8 g/dL (3.5-5.0); Calcium 8.4 mg/dL (8.4-10.2); Potassium 4.6 mmol/L (3.5-5.1); Total Bilirubin 0.7 mg/dL (0.2-1.3); Total Protein 6.2 g/dL (6.3-8.2)
[2019-10-06] MEDS: PANTOPRAZOLE 40 MG TABLET PO SCH (06:52)
--- NOTE | 2019-10-06 08:34 | P.DS ---
Providers Date of admission: 10/03/19 00:00 Attending physician: Georgi Thayer Consults: 10/02/19 23:32 Consult Physician Urgent Consulting Provider: Xavi Warner Consult Reason/Comments: elevated troponin Do you want consulting provider notified?: Yes 10/03/19 16:45 Consult Physician Routine Consulting Provider: Kristy Cha Consult Reason/Comments: Low hemoglobin, R/O GIB Do you want consulting provider notified?: Yes Primary care physician: Georgi Thayer - Discharge Diagnosis(es) (1) Dyspnea Current Visit: Yes Status: Acute (2) Elevated troponin Current Visit: Yes Status: Acute (3) Weakness Current Visit: Yes Status: Acute (4) Anemia Current Visit: Yes Status: Acute (5) CHF (congestive heart failure) Current Visit: No Status: Acute (6) COPD (chronic obstructive pulmonary disease) Current Visit: No Status: Acute (7) Diabetes Current Visit: No Status: Acute Hospital Course: This is a discharge summary a 72-year-old white female's with known history of CHF who was admitted for significant weakness. The patient was stabilized but had low hemoglobin. Unfortunately given her multiplicity of comorbidities, we will reassure and observe at this time given her overall health status. She's had having difficulty ambulating and has agreed to ECF placement. The patient is not tolerating diet and we have stressed nutritional improvement. She does have appropriate family help, but given those limitations, she'll be transferred to ECF for appropriate rehab. Prognosis is guarded secondary to advancing age and multiple comorbidities. We need to check a CBC in the next several days to make sure that it is stable. However, on discharge is no overt bleeding. Patient Condition at Discharge: Stable Plan - Discharge Summary Discharge Rx Participant: No New Discharge Prescriptions: Continue Ipratropium-Albuterol Nebulize [Duoneb 0.5 mg-3 mg/3 ml Soln] 3 ml INHALATION RT-TID PRN PRN Reason: Shortness Of Breath Montelukast [Singulair] 10 mg PO DAILY@1200 Fluticasone/Salmeterol [Advair 250-50 Diskus] 1 puff INHALATION RT-BID Metoprolol Tartrate [Lopressor] 100 mg PO BID Sennosides [Senna] 8.6 mg PO HS Atorvastatin [Lipitor] 40 mg PO HS #30 tab Nitroglycerin Sl Tabs [Nitrostat] 0.4 mg SUBLINGUAL Q5M PRN #25 tab PRN Reason: Chest Pain Isosorbide Mononitrate ER [Imdur] 30 mg PO DAILY #30 tab.er.24h Acetaminophen [Tylenol] 1,000 mg PO Q4H PRN PRN Reason: Pain Insulin Detemir [Levemir Flextouch] 8 unit SQ DAILY@1430 Furosemide [Lasix] 40 mg PO DAILY Pantoprazole [Protonix] 40 mg PO BID #60 tablet. HYDROcodone/APAP 5-325MG [[place] 5-325] 1 tab PO BID PRN #120 tab PRN Reason: Pain Oxazepam [Serax] 15 mg PO BID #60 capsule Discontinued Rivaroxaban [Xarelto] 15 mg PO HS@1999 Discharge Medication List Ipratropium-Albuterol Nebulize [Duoneb 0.5 mg-3 mg/3 ml Soln] 3 ml INHALATION RT-TID PRN 08/20/16 [History] Montelukast [Singulair] 10 mg PO DAILY@1200 05/17/17 [History] Fluticasone/Salmeterol [Advair 250-50 Diskus] 1 puff INHALATION RT-BID 05/18/17 [History] Metoprolol Tartrate [Lopressor] 100 mg PO BID 07/18/17 [History] Sennosides [Senna] 8.6 mg PO HS 07/18/17 [History] Atorvastatin [Lipitor] 40 mg PO HS #30 tab 07/23/17 [Rx] Nitroglycerin Sl Tabs [Nitrostat] 0.4 mg SUBLINGUAL Q5M PRN #25 tab 07/23/17 [Rx] Isosorbide Mononitrate ER [Imdur] 30 mg PO DAILY #30 tab.er.24h 09/23/17 [Rx] Acetaminophen [Tylenol] 1,000 mg PO Q4H PRN 05/14/18 [History] Insulin Detemir [Levemir Flextouch] 8 unit SQ DAILY@1430 05/14/18 [History] Furosemide [Lasix] 40 mg PO DAILY 01/08/19 [History] Pantoprazole [Protonix] 40 mg PO BID #60 tablet. 01/13/19 [Rx] HYDROcodone/APAP 5-325MG [[place] 5-325] 1 tab PO BID PRN #120 tab 10/06/19 [Rx] Oxazepam [Serax] 15 mg PO BID #60 capsule 10/06/19 [Rx] Follow up Appointment(s)/Referral(s): Georgi Thayer MD [Primary Care Provider] - 1-2 days Discharge Disposition: TRANSFER TO SNF/ECF
[2019-10-06] MEDS: METOPROLOL TARTRATE 50 MG TAB PO SCH (08:45)
[2019-10-06] MEDS: ISOSORBIDE MONONITRATE ER 30 MG TAB.ER.24H PO SCH (08:45)
[2019-10-06] MEDS: ACETAMINOPHEN TAB 325 MG TAB PO PRN (08:45)
[2019-10-06] MEDS: FUROSEMIDE 40 MG TAB PO SCH (08:45)
--- NOTE | 2019-10-06 09:01 | CDI ---
Documentation Clarification Form Date: 10/06/2019 08:47:06 AM From: Kimmie Guzman CCS, CCDS Admit Date: 10/03/2019 12:00:00 AM Patient Name: Sonal Ulloa Visit Number: [id number] Discharge Date: 10/06/2019 ATTENTION: The Clinical Documentation Specialists (CDI) and [facility] Coding Staff appreciate your assistance in clarifying documentation. Please respond to the clarification below the line at the bottom and electronically sign. The CDI & [facility] Coding staff will review the response and follow-up if needed. Please note: Queries are made part of the Legal Health Record. If you have any questions, please contact the author of this message via ITS. Dr. Georgi Thayer: CHF is documented in the 10/03 History & Physical, subsequent progress notes & the 10/06 Discharge Summary without further specificity. History/Risk Factors: CHF, CAD with previous PCI & stents, Aortic stenosis, Hypertension, CHF nos, COPD, CVA, DM, C[place], Hyperlipidemia, OA, Paroxysmal atrial fibrillation. Clinical Indicators: Presented to the ED 10/02 with SOB & weakness via EMS. Given IV fluids in ED for acute on chronic renal insufficiency. Cardiology consulted, irregular heart rate & LBBB with history of atrial fibrillation on Xarelto. Hgb low 5.4, per patient having dark colored stool, mildly elevated troponins. Admission VS: P 55* (irregular), R 18 - 15 - 14, BP 127/55, PO 92 RA Admission lab: BNP: 20,400 Echocardiogram Results 10/04: Difficult study, borderline LVH, Systolic function low normal w/EF 50-55%. Mod aortic valve sclerosis, Mild AR, Moderate aortic stenosis, Severe MR, Mod-severe TR, moderate pulmonary hypertension. 10/02 Chest X Ray: Pulmonary fibrosis, Cardiomegaly, Worsening kyphosis. Treatment: Transfused 2 units PRBCs (10/03), anticoagulant held, ECHO, ASA, IV fluid bolus on admission, IV Lasix, INH Symbicort, Lasix po 40 mg on 10/04 (home dose). In your professional opinion, can you please clarify the acuity and type of CHF if known? Systolic Heart Failure: o Acute o Chronic o Acute on Chronic Diastolic Heart Failure: o Acute o Chronic o Acute on Chronic-this is the correct severity Systolic & Diastolic Heart Failure: o Acute o Chronic o Acute on Chronic Heart Failure Unable to Determine Other, please specify (Last Revision: December 2017) MTDD
[2019-10-06 09:31] VITALS: BP 138/63; PULSE 71; RESP 20; TEMP 98.8
[2019-10-06] MEDS: SYMBICORT 80-4.5 MCG INHALER INHALATION SCH (09:45)
[2019-10-06] MEDS: SERAX PO PRN (11:15)
[2019-10-06] MEDS: MONTELUKAST 10 MG TAB PO SCH (11:15)
[2019-10-06 11:46] LABS: Glucose,Whole Blood 200 mg/dL (75-99)
== END 2019-10-06 14:02 | DRG 377 ==
LOC: EC 20:51 → 3SCARD 10-03
PROVIDERS: ADMIT Family Medicine; ATTEND Family Medicine
PROC: 30233N1 Transfusion of Nonautologous Red Blood Cells into Peripheral Vein, Percutaneous Approach (ICD-10-PCS; principal; 2019-10-03)
DX: K62.5 Hemorrhage of anus and rectum (principal); I21.A1 Myocardial infarction type 2; I50.33 Acute on chronic diastolic (congestive) heart failure; D62 Acute posthemorrhagic anemia; I13.0 Hypertensive heart and chronic kidney disease with heart failure and stage 1 through stage 4 chronic kidney disease, or unspecified chronic kidney disease; D50.9 Iron deficiency anemia, unspecified; D63.8 Anemia in other chronic diseases classified elsewhere; E11.22 Type 2 diabetes mellitus with diabetic chronic kidney disease; E78.5 Hyperlipidemia, unspecified; F32.9 Major depressive disorder, single episode, unspecified; F41.9 Anxiety disorder, unspecified; H91.90 Unspecified hearing loss, unspecified ear; I08.0 Rheumatic disorders of both mitral and aortic valves; I25.10 Atherosclerotic heart disease of native coronary artery without angina pectoris; I25.2 Old myocardial infarction; I44.7 Left bundle-branch block, unspecified; I48.0 Paroxysmal atrial fibrillation; J44.9 Chronic obstructive pulmonary disease, unspecified; M13.0 Polyarthritis, unspecified; N18.3 Chronic kidney disease, stage 3 (moderate); Z79.01 Long term (current) use of anticoagulants; Z79.4 Long term (current) use of insulin; Z79.899 Other long term (current) drug therapy; Z82.49 Family history of ischemic heart disease and other diseases of the circulatory system; Z86.73 Personal history of transient ischemic attack (TIA), and cerebral infarction without residual deficits; Z87.440 Personal history of urinary (tract) infections; Z87.891 Personal history of nicotine dependence; Z98.49 Cataract extraction status, unspecified eye; Z96.1 Presence of intraocular lens; Z90.79 Acquired absence of other genital organ(s); Z90.721 Acquired absence of ovaries, unilateral; Z90.49 Acquired absence of other specified parts of digestive tract; Z87.01 Personal history of pneumonia (recurrent); R13.10 Dysphagia, unspecified; Z88.1 Allergy status to other antibiotic agents; Z88.5 Allergy status to narcotic agent; Z88.0 Allergy status to penicillin; Z88.2 Allergy status to sulfonamides; Z88.8 Allergy status to other drugs, medicaments and biological substances
CPT/HCPCS: 36415; 71046; 80048; 80053; 81001; 82272; 82607; 82728; 82746; 83540; 83550; 83880; 84466; 84484; 85025; 85027; 85045; 85610; 85730; 86850; 86900; 86901; 86920; 93005; 93306; 94640; 94760; 96360; 99285

== ENCOUNTER 2019-10-20 17:37 | Emergency (ER) | payer MEDICARE ==
[2019-10-20 17:53] VITALS: TEMP 98
--- NOTE | 2019-10-20 18:12 | ED ---
General Adult HPI - General Chief complaint: Recheck/Abnormal Lab/Rx Stated complaint: Low Hemoglobin Time Seen by Provider: 10/20/19 17:50 Source: EMS Mode of arrival: EMS Limitations: no limitations - History of Present Illness Initial comments: The patient is an 89-year-old female with past medical history of coronary artery disease, A. fib, COPD and heart failure who presents to the emergency room with reported low hemoglobin. She is a transfer from [facility]. The patient is a DO NOT RESUSCITATE and is currently on hospice. She was rec ently hospitalized for shortness of breath and anemia. At that time she was seen by GI. She did not have any active GI bleeding however because of her severe anemia there was concern whether the patient should have an endoscopy. She was transfused blood. Hemoglobin was stable and so the patient was discharged back to [facility]. They have been performing repeat CBCs to make sure that the patient has remained stable. The blood work was drawn today and noted that the patient did have a hemoglobin of 6.9. Because of this the patient was then transferred to our hospital for transfusion. Daughter is at bedside and helps provide the history. There has been no reported melanotic stools or hem atochezia from the patient. No hematemesis. Denies any additional sources of bleeding. The patient is no longer on her blood thinner for A. fib. There are no alleviating, precipitating or modifying factors - Related Data Home Medications Medication Instructions Recorded Confirmed Ipratropium-Albuterol Nebulize 3 ml INHALATION RT-TID PRN 08/20/16 10/02/19 [Duoneb 0.5 mg-3 mg/3 ml Soln] Montelukast [Singulair] 10 mg PO DAILY@1200 05/17/17 10/02/19 Fluticasone/Salmeterol [Advair 1 puff INHALATION RT-BID 05/18/17 10/02/19 250-50 Diskus] Metoprolol Tartrate [Lopressor] 100 mg PO BID 07/18/17 10/02/19 Sennosides [Senna] 8.6 mg PO HS 07/18/17 10/02/19 Acetaminophen [Tylenol] 1,000 mg PO Q4H PRN 05/14/18 10/02/19 Insulin Detemir [Levemir Flextouch] 8 unit SQ DAILY@1430 05/14/18 10/02/19 Furosemide [Lasix] 40 mg PO DAILY 01/08/19 10/02/19 Previous Rx's Medication Instructions Recorded Atorvastatin [Lipitor] 40 mg PO HS #30 tab 07/23/17 Nitroglycerin Sl Tabs [Nitrostat] 0.4 mg SUBLINGUAL Q5M PRN #25 tab 07/23/17 Isosorbide Mononitrate ER [Imdur] 30 mg PO DAILY #30 tab.er.24h 09/23/17 Pantoprazole [Protonix] 40 mg PO BID #60 tablet. 01/13/19 HYDROcodone/APAP 5-325MG [[place] 1 tab PO BID PRN #120 tab 10/06/19 5-325] Oxazepam [Serax] 15 mg PO BID #60 capsule 10/06/19 Allergies Allergy/AdvReac Type Severity Reaction Status Date / Time adhesive tape Allergy Rash/Hives Verified 10/02/19 23:23 amoxicillin trihydrate Allergy Unknown Verified 10/02/19 23:23 [From Augmentin] clindamycin HCl Allergy Unknown Verified 10/02/19 23:23 [From Cleocin] clindamycin palmitate HCl Allergy Unknown Verified 10/02/19 23:23 [From Cleocin] clindamycin phosphate Allergy Unknown Verified 10/02/19 23:23 [From Cleocin] codeine Allergy Unknown Verified 10/02/19 23:23 nitrofurantoin Allergy Unknown Verified 10/02/19 23:23 [From Macrobid] nitrofurantoin Allergy Unknown Verified 10/02/19 23:23 macrocrystalline [From Macrobid] Penicillins Allergy Unknown Verified 10/02/19 23:23 potassium clavulanate Allergy Unknown Verified 10/02/19 23:23 [From Augmentin] prednisone Allergy Unknown Verified 10/02/19 23:23 quinine Allergy Unknown Verified 10/02/19 23:23 Sulfa (Sulfonamide Allergy Unknown Verified 10/02/19 23:23 Antibiotics) sulfamethoxazole Allergy Unknown Verified 10/02/19 23:23 [From Bactrim] trimethoprim [From Bactrim] Allergy Unknown Verified 10/02/19 23:23 lorazepam [From Ativan] AdvReac Confusion Verified 10/02/19 23:23 Review of Systems ROS Statement: Those systems with pertinent positive or pertinent negative responses have been documented in the HPI. ROS Other: All systems not noted in ROS Statement are negative. Past Medical History Past Medical History: Atrial Fibrillation, Coronary Artery Disease (CAD), Chest Pain / Angina, Heart Failure, COPD, CVA/TIA, Diabetes Mellitus, GERD/Reflux, Hearing Disorder / Deafness, Hyperlipidemia, Hypertension, Myocardial Infarction ([place]), Osteoarthritis (OA), Pneumonia, Renal Disease, Skin Disorder Additional Past Medical History / Comment(s): IDDM type II, frequent pneumonia, aspiration pneumonia with sepsis, renal insufficiency, recurrent UTIs, TIA x 3, difficulty swallowing-crushes meds and puts them in yogurt-past EGD/dilations, anemia, eczema, "lazy bowel" but pt states anymore she goes from diarrhea to constipation easily, generalized arthritis, chronic baci pain, hiatal hernia Last Myocardial Infarction Date:: 1998, 09/21/17 History of Any Multi-Drug Resistant Organisms: VRE Date of last positivie culture/infection: 10/07/17 MDRO Source:: VRE URINE Past Surgical History: Cholecystectomy, Heart Catheterization With Stent Additional Past Surgical History / Comment(s): cataracts w/lens implants, ectopic with one ovary/tube removed, heart caths :04/30/96 stent to rca, 03/18/2000 stent to mid rca, 07/22/17 stent to lad Past Anesthesia/Blood Transfusion Reactions: Previous Problems w/ Anesthesia Additional Past Anesthesia/Blood Transfusion Reaction / Comment(s): difficulty breathing after anesthesia Date of Last Stent Placement:: 06/2017 Past Psychological History: Depression Smoking Status: Former smoker Past Alcohol Use History: None Reported Past Drug Use History: None Reported - Past Family History Father History Unknown: Yes Family Medical History: Myocardial Infarction ([place]) Additional Family Medical History / Comment(s): Father had a IN at the age of 50 yrs. He lived to be 75yrs old. Mother History Unknown: Yes Family Medical History: Myocardial Infarction ([place]) Additional Family Medical History / Comment(s): Mother of a IN at about age 80yrs. General Exam Limitations: no limitations General appearance: alert, in no apparent distress Head exam: Present: atraumatic, normocephalic, normal inspection Eye exam: Present: normal appearance, PERRL, EOMI. Absent: scleral icterus, conjunctival injection, periorbital swelling ENT exam: Present: normal exam, mucous membranes moist Neck exam: Present: normal inspection. Absent: tenderness, meningismus, lymphadenopathy Respiratory exam: Present: normal lung sounds bilaterally. Absent: respiratory distress, wheezes, rales, rhonchi, stridor Cardiovascular Exam: Present: regular rate, normal rhythm, normal heart sounds. Absent: systolic murmur, diastolic murmur, rubs, gallop, clicks GI/Abdominal exam: Present: soft, normal bowel sounds. Absent: distended, tenderness, guarding, rebound, rigid Rectal exam: Present: normal inspection, normal rectal tone, heme (-) stool Extremities exam: Present: normal inspection, full ROM, normal capillary refill. Absent: tenderness, pedal edema, joint swelling, calf tenderness Back exam: Present: normal inspection Neurological exam: Present: alert, CN II-XII intact Psychiatric exam: Present: normal affect, normal mood Skin exam: Present: warm, dry, intact, normal color. Absent: rash Course Vital Signs 10/20/19 10/21/19 17:47 06:44 Temperature 98.0 F Pulse Rate 77 73 Respiratory 18 16 Rate Blood Pressure 144/67 143/88 O2 Sat by Pulse 96 95 Oximetry EKG Findings - EKG Comments: EKG Findings:: EKG demonstrates A. fib with a left bundle branch block. Rate is 69. MI interval 160. QRS 134. QTC 471. No acute ST segment elevations. No sgarbossa criteria. This is compared to patient's previous exam which demonstrated a left bundle-branch block Procedures - Stool Hemoccult Hemoccult result: negative Medical Decision Making - Medical Decision Making Upon arrival the patient was placed into room 3. A thorough history and physical exam was performed. The patient does attempt to give a stool sample however she is unsuccessful and therefore I performed a rectal exam which demonstrates brown stool. I did recommend repeating the patient's lab studies. Hemoglobin is return and is 8. Platelets are 565. Coag studies are normal. CMP shows a creatinine of 1.3 which is improved from the patient's previous kidney function value. Stool occult is negative. I did discuss results results with the daughter at bedside. The patient was discharged from the hospital with a hemoglobin of 8.2. As the patient's hemoglobin is stable from our lab value I did recommend no transfusion at this time. The patient will be discharged back to [facility]. She does go by EMS. I did recommend to the daughter that they repeat her hemoglobin in several days to ensure that he is staying stable. Return to the emergency room for any new worsening symptoms. The patient and her daughter went agreement she will plan and the patient was discharged back to [facility] - Lab Data Result diagrams: 10/20/19 18:05 10/20/19 18:05 Lab Results 10/20/19 10/20/19 10/20/19 Range/Units 18:05 18:05 18:05 WBC 8.2 (3.8-10.6) k/uL RBC 3.56 L (3.80-5.40) m/uL Hgb 8.0 L (11.4-16.0) gm/dL Hct 28.6 L (34.0-46.0) % MCV 80.4 (80.0-100.0) fL MCH 22.5 L (25.0-35.0) pg MCHC 28.0 L (31.0-37.0) g/dL RDW 21.1 H (11.5-15.5) % Plt Count 565 H D (150-450) k/uL Neutrophils % 65 % Lymphocytes % 18 % Monocytes % 7 % Eosinophils % 5 % Basophils % 4 % Neutrophils # 5.3 (1.3-7.7) k/uL Lymphocytes # 1.4 (1.0-4.8) k/uL Monocytes # 0.5 (0-1.0) k/uL Eosinophils # 0.4 (0-0.7) k/uL Basophils # 0.4 H (0-0.2) k/uL Hypochromasia Marked Poikilocytosis Marked Anisocytosis Moderate Microcytosis Slight PT 9.6 (9.0-12.0) sec INR 0.9 (<1.2) APTT 22.9 (22.0-30.0) sec Sodium 140 (137-145) mmol/L Potassium 4.6 (3.5-5.1) mmol/L Chloride 100 (98-107) mmol/L Carbon Dioxide 36 H (22-30) mmol/L Anion Gap 4 mmol/L BUN 26 H (7-17) mg/dL Creatinine 1.30 H (0.52-1.04) mg/dL Est GFR (CKD-EPI)AfAm 43 (>60 ml/min/1.73 sqM) Est GFR (CKD-EPI)NonAf 37 (>60 ml/min/1.73 sqM) Glucose 95 (74-99) mg/dL Calcium 8.7 (8.4-10.2) mg/dL Total Bilirubin 0.5 (0.2-1.3) mg/dL AST 31 (14-36) U/L ALT 8 (4-34) U/L Alkaline Phosphatase 94 (38-126) U/L Total Protein 6.7 (6.3-8.2) g/dL Albumin 3.0 L (3.5-5.0) g/dL Stool Occult Blood (Negative) Blood Type Blood Type Recheck Bld Type Recheck Status Antibody Screen Spec Expiration Date 10/20/19 10/20/19 Range/Units 18:05 19:05 WBC (3.8-10.6) k/uL RBC (3.80-5.40) m/uL Hgb (11.4-16.0) gm/dL Hct (34.0-46.0) % MCV (80.0-100.0) fL MCH (25.0-35.0) pg MCHC (31.0-37.0) g/dL RDW (11.5-15.5) % Plt Count (150-450) k/uL Neutrophils % % Lymphocytes % % Monocytes % % Eosinophils % % Basophils % % Neutrophils # (1.3-7.7) k/uL Lymphocytes # (1.0-4.8) k/uL Monocytes # (0-1.0) k/uL Eosinophils # (0-0.7) k/uL Basophils # (0-0.2) k/uL Hypochromasia Poikilocytosis Anisocytosis Microcytosis PT (9.0-12.0) sec INR (<1.2) APTT (22.0-30.0) sec Sodium (137-145) mmol/L Potassium (3.5-5.1) mmol/L Chloride (98-107) mmol/L Carbon Dioxide (22-30) mmol/L Anion Gap mmol/L BUN (7-17) mg/dL Creatinine (0.52-1.04) mg/dL Est GFR (CKD-EPI)AfAm (>60 ml/min/1.73 sqM) Est GFR (CKD-EPI)NonAf (>60 ml/min/1.73 sqM) Glucose (74-99) mg/dL Calcium (8.4-10.2) mg/dL Total Bilirubin (0.2-1.3) mg/dL AST (14-36) U/L ALT (4-34) U/L Alkaline Phosphatase (38-126) U/L Total Protein (6.3-8.2) g/dL Albumin (3.5-5.0) g/dL Stool Occult Blood Negative (Negative) Blood Type O Positive Blood Type Recheck O Pos Bld Type Recheck Status No Antibody Screen NEGATIVE Spec Expiration Date 10/23/20192304 Disposition Clinical Impression: Anemia Disposition: HOME SELF-CARE Condition: Stable Instructions (If sedation given, give patient instructions): Anemia (ED) Additional Instructions: Your hemoglobin is stable at 8.0. Please have your laboratory studies rechecked in 2-4 days. Return to the emergency room for any new worsening symptoms Is patient prescribed a controlled substance at d/c from ED?: No Referrals: Georgi Thayer MD [Primary Care Provider] - 1-2 days Time of Disposition: 20:00
[2019-10-20 19:11] LABS: Anisocytosis Moderate; Basophils # (A) 0.4 k/uL (0-0.2); Eosinophils # (A) 0.4 k/uL (0-0.7); Eosinophils % (A) 5 %; HCT 28.6 % (34.0-46.0); Hypochromasia Marked; Lymphocytes # (A) 1.4 k/uL (1.0-4.8); Lymphocytes % (A) 18 %; MCH 22.5 pg (25.0-35.0); MCV 80.4 fL (80.0-100.0); Microcytosis Slight; Monocytes # (A) 0.5 k/uL (0-1.0); Monocytes % (A) 7 %; Neutrophils # (A) 5.3 k/uL (1.3-7.7); Neutrophils % (A) 65 %; Poikilocytosis Marked; RBC 3.56 m/uL (3.80-5.40); RDW 21.1 % (11.5-15.5); WBC 8.2 k/uL (3.8-10.6)
[2019-10-20 19:19] LABS: INR 0.9 (<1.2); Partial Thromboplastin Time 22.9 sec (22.0-30.0); Prothrombin Time 9.6 sec (9.0-12.0)
[2019-10-20 19:31] LABS: Basophils % (A) 4 %; Platelet Count 565 k/uL (150-450)
[2019-10-20 19:42] LABS: Calcium 8.7 mg/dL (8.4-10.2); Potassium 4.6 mmol/L (3.5-5.1); Total Bilirubin 0.5 mg/dL (0.2-1.3); Total Protein 6.7 g/dL (6.3-8.2)
[2019-10-21 06:45] VITALS: BP 143/88; PULSE 73; RESP 16
== END 2019-10-20 21:30 | disposition home or self-care (01) ==
LOC: EC 17:37
DX: D64.9 Anemia, unspecified (principal); I25.119 Atherosclerotic heart disease of native coronary artery with unspecified angina pectoris; I48.91 Unspecified atrial fibrillation; I11.0 Hypertensive heart disease with heart failure; I50.9 Heart failure, unspecified; I25.2 Old myocardial infarction; Z79.4 Long term (current) use of insulin; Z79.899 Other long term (current) drug therapy; Z79.51 Long term (current) use of inhaled steroids; Z91.048 Other nonmedicinal substance allergy status; Z88.0 Allergy status to penicillin; Z88.1 Allergy status to other antibiotic agents; Z88.5 Allergy status to narcotic agent; Z88.8 Allergy status to other drugs, medicaments and biological substances; Z88.2 Allergy status to sulfonamides; Z95.5 Presence of coronary angioplasty implant and graft; Z86.73 Personal history of transient ischemic attack (TIA), and cerebral infarction without residual deficits
CPT/HCPCS: 36415; 80053; 82272; 85025; 85610; 85730; 86850; 86900; 86901; 93005; 99284

== ENCOUNTER 2019-11-26 21:37 | Inpatient (IN) | payer MEDICARE ==
[2019-11-26] MEDS ORDERED: NITROGLYCERIN-D5W PMX 50 MG in DEXTROSE/WATER 1 250ML.BAG IV ONE (22:00)
[2019-11-26 22:12] LABS: Anisocytosis Moderate; Basophils # (A) 0.1 k/uL (0-0.2); Basophils % (A) 1 %; Eosinophils # (A) 0.5 k/uL (0-0.7); Eosinophils % (A) 3 %; HCT 35.1 % (34.0-46.0); Hypochromasia Marked; Lymphocytes # (A) 3.4 k/uL (1.0-4.8); Lymphocytes % (A) 23 %; MCH 24.4 pg (25.0-35.0); Mean Platelet Volume 7.9; Microcytosis Slight; Monocytes # (A) 0.7 k/uL (0-1.0); Monocytes % (A) 4 %; Neutrophils # (A) 9.9 k/uL (1.3-7.7); Neutrophils % (A) 67 %; Platelet Count 535 k/uL (150-450); RBC 4.01 m/uL (3.80-5.40); RDW 21.3 % (11.5-15.5); WBC 14.8 k/uL (3.8-10.6)
[2019-11-26 22:15] LABS: HGB 9.8 gm/dL (11.4-16.0); MCV 87.4 fL (80.0-100.0)
[2019-11-26] MEDS ORDERED: MORPHINE SULFATE 4 MG/ML SYRINGE IV STA (22:16)
[2019-11-26 22:20] LABS: Albumin 3.6 g/dL (3.5-5.0); Calcium 8.8 mg/dL (8.4-10.2); Potassium 5.7 mmol/L (3.5-5.1); Total Bilirubin 0.4 mg/dL (0.2-1.3); Total Protein 7.8 g/dL (6.3-8.2)
[2019-11-26 22:24] LABS: INR 0.9 (<1.2); Partial Thromboplastin Time 23.8 sec (22.0-30.0); Prothrombin Time 9.5 sec (9.0-12.0)
--- NOTE | 2019-11-26 22:31 | XR ---
EXAMINATION TYPE: XR chest 1V portable DATE OF EXAM: 11/26/2019 COMPARISON: 10/02/2019 HISTORY: Short of breath TECHNIQUE: FINDINGS: There is moderately severe pulmonary airspace edema. There is mild blunting of the costophr enic angles. There are chest leads. IMPRESSION: There is increased pulmonary edema compared to last exam and consistent with worsening co ngestive heart failure.
--- NOTE | 2019-11-26 22:31 | ED ---
SOB HPI - General Chief Complaint: Shortness of Breath Stated Complaint: Diff Breathing Time Seen by Provider: 11/26/19 21:44 Source: EMS Mode of arrival: EMS Limitations: physical limitation (Severe dyspnea) - History of Present Illness MD Complaint: shortness of breath - Related Data Home Medications Medication Instructions Recorded Confirmed Ipratropium-Albuterol Nebulize 3 ml INHALATION RT-TID PRN 08/20/16 10/02/19 [Duoneb 0.5 mg-3 mg/3 ml Soln] Montelukast [Singulair] 10 mg PO DAILY@1200 05/17/17 10/02/19 Fluticasone/Salmeterol [Advair 1 puff INHALATION RT-BID 05/18/17 10/02/19 250-50 Diskus] Metoprolol Tartrate [Lopressor] 100 mg PO BID 07/18/17 10/02/19 Sennosides [Senna] 8.6 mg PO HS 07/18/17 10/02/19 Acetaminophen [Tylenol] 1,000 mg PO Q4H PRN 05/14/18 10/02/19 Insulin Detemir [Levemir Flextouch] 8 unit SQ DAILY@1430 05/14/18 10/02/19 Furosemide [Lasix] 40 mg PO DAILY 01/08/19 10/02/19 Previous Rx's Medication Instructions Recorded Atorvastatin [Lipitor] 40 mg PO HS #30 tab 07/23/17 Nitroglycerin Sl Tabs [Nitrostat] 0.4 mg SUBLINGUAL Q5M PRN #25 tab 07/23/17 Isosorbide Mononitrate ER [Imdur] 30 mg PO DAILY #30 tab.er.24h 09/23/17 Pantoprazole [Protonix] 40 mg PO BID #60 tablet.dr 01/13/19 HYDROcodone/APAP 5-325MG [[place] 1 tab PO BID PRN #120 tab 10/06/19 5-325] Oxazepam [Serax] 15 mg PO BID #60 capsule 10/06/19 Allergies Allergy/AdvReac Type Severity Reaction Status Date / Time adhesive tape Allergy Rash/Hives Verified 11/26/19 21:53 amoxicillin trihydrate Allergy Unknown Verified 11/26/19 21:53 [From Augmentin] clindamycin HCl Allergy Unknown Verified 11/26/19 21:53 [From Cleocin] clindamycin palmitate HCl Allergy Unknown Verified 11/26/19 21:53 [From Cleocin] clindamycin phosphate Allergy Unknown Verified 11/26/19 21:53 [From Cleocin] codeine Allergy Unknown Verified 11/26/19 21:53 nitrofurantoin Allergy Unknown Verified 11/26/19 21:53 [From Macrobid] nitrofurantoin Allergy Unknown Verified 11/26/19 21:53 macrocrystalline [From Macrobid] Penicillins Allergy Unknown Verified 11/26/19 21:53 potassium clavulanate Allergy Unknown Verified 11/26/19 21:53 [From Augmentin] prednisone Allergy Unknown Verified 11/26/19 21:53 quinine Allergy Unknown Verified 11/26/19 21:53 Sulfa (Sulfonamide Allergy Unknown Verified 11/26/19 21:53 Antibiotics) sulfamethoxazole Allergy Unknown Verified 11/26/19 21:53 [From Bactrim] trimethoprim [From Bactrim] Allergy Unknown Verified 11/26/19 21:53 lorazepam [From Ativan] AdvReac Confusion Verified 11/26/19 21:53 Review of Systems ROS Statement: Those systems with pertinent positive or pertinent negative responses have been documented in the HPI. ROS Other: All systems not noted in ROS Statement are negative. Past Medical History Past Medical History: Atrial Fibrillation, Coronary Artery Disease (CAD), Chest Pain / Angina, Heart Failure, COPD, CVA/TIA, Diabetes Mellitus, GERD/Reflux, Hearing Disorder / Deafness, Hyperlipidemia, Hypertension, Myocardial Infarction ([place]), Osteoarthritis (OA), Pneumonia, Renal Disease, Skin Disorder Additional Past Medical History / Comment(s): IDDM type II, frequent pneumonia, aspiration pneumonia with sepsis, renal insufficiency, recurrent UTIs, TIA x 3, difficulty swallowing-crushes meds and puts them in yogurt-past EGD/dilations, anemia, eczema, "lazy bowel" but pt states anymore she goes from diarrhea to constipation easily, generalized arthritis, chronic baci pain, hiatal hernia Last Myocardial Infarction Date:: 1998, 09/21/17 History of Any Multi-Drug Resistant Organisms: VRE Date of last positivie culture/infection: 10/07/17 MDRO Source:: VRE URINE Past Surgical History: Cholecystectomy, Heart Catheterization With Stent Additional Past Surgical History / Comment(s): cataracts w/lens implants, ectopic with one ovary/tube removed, heart caths :04/30/96 stent to rca, 03/18/2000 stent to mid rca, 07/22/17 stent to lad Past Anesthesia/Blood Transfusion Reactions: Previous Problems w/ Anesthesia Additional Past Anesthesia/Blood Transfusion Reaction / Comment(s): difficulty breathing after anesthesia Date of Last Stent Placement:: 06/2017 Past Psychological History: Depression Smoking Status: Former smoker Past Alcohol Use History: None Reported Past Drug Use History: None Reported - Past Family History Father History Unknown: Yes Family Medical History: Myocardial Infarction ([place]) Additional Family Medical History / Comment(s): Father had a [place] at the age of 50 yrs. He lived to be 75yrs old. Mother History Unknown: Yes Family Medical History: Myocardial Infarction ([place]) Additional Family Medical History / Comment(s): Mother of a [place] at about age 80yrs. General Exam Limitations: language barrier, physical limitation Course Vital Signs 11/26/19 11/26/19 21:40 22:10 Temperature 97.7 F Pulse Rate 91 101 H Respiratory 30 H 28 H Rate Blood Pressure 137/62 O2 Sat by Pulse 64 L 94 L Oximetry Medical Decision Making - Lab Data Result diagrams: 11/26/19 21:55 11/26/19 21:55 Lab Results 11/26/19 11/26/19 11/26/19 Range/Units 21:55 21:55 21:55 WBC 14.8 H (3.8-10.6) k/uL RBC 4.01 (3.80-5.40) m/uL Hgb 9.8 L D (11.4-16.0) gm/dL Hct 35.1 (34.0-46.0) % MCV 87.4 D (80.0-100.0) fL MCH 24.4 L (25.0-35.0) pg MCHC 28.0 L (31.0-37.0) g/dL RDW 21.3 H (11.5-15.5) % Plt Count 535 H (150-450) k/uL Neutrophils % 67 % Lymphocytes % 23 % Monocytes % 4 % Eosinophils % 3 % Basophils % 1 % Neutrophils # 9.9 H (1.3-7.7) k/uL Lymphocytes # 3.4 (1.0-4.8) k/uL Monocytes # 0.7 (0-1.0) k/uL Eosinophils # 0.5 (0-0.7) k/uL Basophils # 0.1 (0-0.2) k/uL Hypochromasia Marked Anisocytosis Moderate Microcytosis Slight PT 9.5 (9.0-12.0) sec INR 0.9 (<1.2) APTT 23.8 (22.0-30.0) sec Sodium 136 L (137-145) mmol/L Potassium 5.7 H (3.5-5.1) mmol/L Chloride 97 L (98-107) mmol/L Carbon Dioxide 32 H (22-30) mmol/L Anion Gap 7 mmol/L BUN 32 H (7-17) mg/dL Creatinine 1.36 H (0.52-1.04) mg/dL Est GFR (CKD-EPI)AfAm 40 (>60 ml/min/1.73 sqM) Est GFR (CKD-EPI)NonAf 35 (>60 ml/min/1.73 sqM) Glucose 344 H (74-99) mg/dL Calcium 8.8 (8.4-10.2) mg/dL Total Bilirubin 0.4 (0.2-1.3) mg/dL AST 33 (14-36) U/L ALT 11 (4-34) U/L Alkaline Phosphatase 109 (38-126) U/L Total Protein 7.8 (6.3-8.2) g/dL Albumin 3.6 (3.5-5.0) g/dL Influenza Type A RNA (Not Detectd) Influenza Type B (PCR) (Not Detectd) 11/26/19 Range/Units 22:01 WBC (3.8-10.6) k/uL RBC (3.80-5.40) m/uL Hgb (11.4-16.0) gm/dL Hct (34.0-46.0) % MCV (80.0-100.0) fL MCH (25.0-35.0) pg MCHC (31.0-37.0) g/dL RDW (11.5-15.5) % Plt Count (150-450) k/uL Neutrophils % % Lymphocytes % % Monocytes % % Eosinophils % % Basophils % % Neutrophils # (1.3-7.7) k/uL Lymphocytes # (1.0-4.8) k/uL Monocytes # (0-1.0) k/uL Eosinophils # (0-0.7) k/uL Basophils # (0-0.2) k/uL Hypochromasia Anisocytosis Microcytosis PT (9.0-12.0) sec INR (<1.2) APTT (22.0-30.0) sec Sodium (137-145) mmol/L Potassium (3.5-5.1) mmol/L Chloride (98-107) mmol/L Carbon Dioxide (22-30) mmol/L Anion Gap mmol/L BUN (7-17) mg/dL Creatinine (0.52-1.04) mg/dL Est GFR (CKD-EPI)AfAm (>60 ml/min/1.73 sqM) Est GFR (CKD-EPI)NonAf (>60 ml/min/1.73 sqM) Glucose (74-99) mg/dL Calcium (8.4-10.2) mg/dL Total Bilirubin (0.2-1.3) mg/dL AST (14-36) U/L ALT (4-34) U/L Alkaline Phosphatase (38-126) U/L Total Protein (6.3-8.2) g/dL Albumin (3.5-5.0) g/dL Influenza Type A RNA Not Detected (Not Detectd) Influenza Type B (PCR) Not Detected (Not Detectd) - EKG Data -: EKG Interpreted by [facility] EKG shows normal: sinus rhythm, axis (Normal), intervals (CO interval 186 ms, QTC 494 ms, both normal. QRS duration 146 ms, prolonged consistent with the left bundle-branch block.), QRS complexes ((Bundle-branch block) Rate: normal (Rate 91 bpm) When compared to previous EKG there are: no significant change Disposition Referrals: Dai Bacon MD [Primary Care Provider] - 1-2 days
[2019-11-27] MEDS ORDERED: NITROGLYCERIN SL TABS 0.4 MG TAB SUBLINGUAL PRN (00:19)
[2019-11-27] MEDS ORDERED: FUROSEMIDE 10 MG/ML 4 ML VIAL IV STA (00:27)
[2019-11-27 02:28] LABS: Glucose,Whole Blood 230 mg/dL (75-99)
[2019-11-27 06:47] LABS: Glucose,Whole Blood 206 mg/dL (75-99)
[2019-11-27 07:27] LABS: Glucose,Whole Blood 204 mg/dL (75-99)
[2019-11-27] MEDS: INSULIN ASPART (NovoLOG) 100 UNIT/ML VIAL SQ SCH ×4 (07:28→20:08)
[2019-11-27] MEDS: SYMBICORT 80-4.5 MCG INHALER INHALATION SCH ×2 (08:07→19:34)
[2019-11-27] MEDS: IPRATROPIUM-ALBUTEROL 3 ML NEB INHALATION PRN ×3 (08:07→19:35)
[2019-11-27] MEDS: FUROSEMIDE 40 MG TAB PO SCH (09:19)
[2019-11-27] MEDS: PANTOPRAZOLE 40 MG TABLET PO SCH ×2 (09:19→20:04)
[2019-11-27] MEDS: METOPROLOL TARTRATE 50 MG TAB PO SCH ×2 (09:19→20:04)
[2019-11-27] MEDS: ISOSORBIDE MONONITRATE ER 30 MG TAB.ER.24H PO SCH (09:23)
[2019-11-27] MEDS: OXAZEPAM 15 MG PO SCH ×2 (09:27→20:03)
--- NOTE | 2019-11-27 09:49 | CONS ---
CONSULTATION Mrs. Ulloa is an 89-year-old female who was transferred from the shelter with symptoms of progressive dyspnea, was noted to be in CHF. The patient is very hard of hearing, but I am not quite sure if she was getting much more dyspneic prior to admission. She was in the hospital in September of this year and at that time underwent an echocardiogram that revealed ejection fraction 50% to 55% with mild aortic regurgitation, moderate aortic stenosis with moderate severe tricuspid regurgitation and moderate pulmonary hypertension. The patient has been seen by Dr. Chato Nunez in the past and has underwent cardiac catheterization. She has history of coronary artery disease with prior PCI, history of paroxysmal fibrillation, was on anticoagulation, but that was stopped because of bleeding and anemia. Her most recent cardiac catheterization is 2017 and at that time she had no evidence of progression of disease in her LAD or RCA that were stented in the past. She denies any recent worsening of chest discomfort. She denies any dizziness or palpitation. She denies any nausea. She has no significant peripheral edema at this time. Her coronary risk factors are positive for diabetes, hyperlipidemia and hypertension. MEDICATIONS: Include Lipitor 40 mg daily, Lasix 40 mg daily, insulin, Imdur 30 mg daily, Lopressor 100 mg twice a day, Protonix. REVIEW OF SYSTEMS: RESPIRATORY system: She had dyspnea on exertion. No recent wheezing or cough. GI: She had recent GI bleeding. She had no nausea or vomiting. She denies any recent active bleeding. system no dysuria hematuria. Nervous system: She denies any stroke or seizure. PHYSICAL EXAMINATION: She is an 89-year-old female, alert, oriented, confused at times. Hard of hearing. Blood pressure 127/70 with a heart rate in the 80s. HEAD: Normocephalic. Eyes sclerae anicteric. Neck: Good carotid upstroke. No bruit. Lungs with few crackles at the bases. HEART: Regular rate and rhythm S1, S2. No S3 with a systolic murmur 3/6 heard at the base, mid peaking, no diastolic murmur. ABDOMEN: Soft, nontender. Positive bowel sounds. No organomegaly. EXTREMITIES: No edema. LAB DATA: Lab data revealed a hemoglobin of 9.8, platelet count 535, BUN and creatinine 32 and 1.36. Troponin of 0.516 and 1.63. NT proBNP 13,230. Her potassium is 5.7. Her EKG revealed a sinus mechanism with left bundle branch block. Her chest x-ray was consistent with congestive heart failure. IMPRESSION: 1. Symptoms of progressive dyspnea with evidence of congestive heart failure in a patient with preserved systolic function in the past. 2. History of coronary artery disease status post stenting, by cardiac catheterization in 2018. There was no evidence of progression of disease. 3. Recent significant gastrointestinal bleeding with severe anemia. 4. Non ST-segment elevation myocardial infarction. 5. Hypertension. 6. Hyperlipidemia. 7. Diabetes mellitus. RECOMMENDATIONS: From the cardiac standpoint, I will continue IV diuretics. I will add to her regimen aspirin 81 mg daily, with continue on the beta daryl. We will follow her hemoglobin and her renal function closely. At this time, I will try to maximize her medical therapy in view of the recent episode of GI bleeding. Depending on her progress, decision can be made regarding the need to undergo repeat angiography. Thank you for this consult. We will follow with you. SHERRON / ADALIN: [id number] /
[2019-11-27 11:34] LABS: Glucose,Whole Blood 287 mg/dL (75-99)
[2019-11-27] MEDS: MONTELUKAST 10 MG TAB PO SCH (11:52)
[2019-11-27] MEDS: INSULIN DETEMIR (LEVEMIR) 100 UNIT/ML SYR SQ SCH (13:34)
[2019-11-27] MEDS ORDERED: INSULIN DETEMIR (LEVEMIR) 100 UNIT/ML SYR SQ SCH (14:30)
--- NOTE | 2019-11-27 15:47 | P.HPIM ---
History of Present Illness H&P Date: 11/27/19 Sonal Pritchard is an 89-year-old female who presented to [facility] emergency room with a chief complaint of worsening shortness of breath she was evaluated in emergency room and preliminary diagnosis was acute congestive heart failure exacerbation she was started on IV Lasix and was admitted to telemetry floor patient denies any chest pain EKG revealed evidence of left bundle branch block which is chronic first troponin was elevated at 0.8 second troponin was 1.6 patient has known history of chronic renal failure, stage III was creatinine of 1.36. Past Medical History Past Medical History: Atrial Fibrillation, Coronary Artery Disease (CAD), Chest Pain / Angina, Heart Failure, COPD, CVA/TIA, Diabetes Mellitus, GERD/Reflux, Hearing Disorder / Deafness, Hyperlipidemia, Hypertension, Myocardial Infarction (OR), Osteoarthritis (OA), Pneumonia, Renal Disease, Skin Disorder Additional Past Medical History / Comment(s): IDDM type II, frequent pneumonia, aspiration pneumonia with sepsis, renal insufficiency, recurrent UTIs, TIA x 3, difficulty swallowing-crushes meds and puts them in yogurt-past EGD/dilations, anemia, eczema, "lazy bowel" but pt states anymore she goes from diarrhea to constipation easily, generalized arthritis, chronic back pain, hiatal hernia, Last Myocardial Infarction Date:: 1998, 09/21/17 History of Any Multi-Drug Resistant Organisms: VRE Date of last positivie culture/infection: 10/07/17 MDRO Source:: VRE URINE Past Surgical History: Cholecystectomy, Heart Catheterization With Stent Additional Past Surgical History / Comment(s): cataracts w/lens implants, ectopic with one ovary/tube removed, heart caths :04/30/96 stent to rca, 03/18/2000 stent to mid rca, 07/22/17 stent to lad Past Anesthesia/Blood Transfusion Reactions: Previous Problems w/ Anesthesia Additional Past Anesthesia/Blood Transfusion Reaction / Comment(s): difficulty breathing after anesthesia Date of Last Stent Placement:: 06/2017 Past Psychological History: Anxiety, Depression Additional Psychological History / Comment(s): Pt resides in an apartment at [facility]. She ambulates with a walker. Her daughter is very helpful and is in an apt above her. 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 She no longer drives, family takes her to [employer]. She goes up to her daughter's for supper and manages her own medication. Smoking Status: Former smoker Past Alcohol Use History: None Reported Additional Past Alcohol Use History / Comment(s): Patient has history of smoking 2 packs per day started smoking at age 16 Past Drug Use History: None Reported - Past Family History Father History Unknown: Yes Family Medical History: Myocardial Infarction (OR) Additional Family Medical History / Comment(s): Father had a OR at the age of 50 yrs. He lived to be 75yrs old. Mother History Unknown: Yes Family Medical History: Myocardial Infarction (OR) Additional Family Medical History / Comment(s): Mother of a OR at about age 80yrs. Medications and Allergies Home Medications Medication Instructions Recorded Confirmed Type Ipratropium-Albuterol Nebulize 3 ml INHALATION RT-TID PRN 08/20/16 11/27/19 History [Duoneb 0.5 mg-3 mg/3 ml Soln] Montelukast [Singulair] 10 mg PO DAILY@1200 05/17/17 11/27/19 History Fluticasone/Salmeterol [Advair 1 puff INHALATION RT-BID 05/18/17 11/27/19 History 250-50 Diskus] Metoprolol Tartrate [Lopressor] 100 mg PO BID 07/18/17 11/27/19 History Sennosides [Senna] 8.6 mg PO HS 07/18/17 11/27/19 History Atorvastatin [Lipitor] 40 mg PO HS #30 tab 07/23/17 11/27/19 Rx Nitroglycerin Sl Tabs [Nitrostat] 0.4 mg SUBLINGUAL Q5M PRN #25 tab 07/23/17 11/27/19 Rx Isosorbide Mononitrate ER [Imdur] 30 mg PO DAILY #30 tab.er.24h 09/23/17 11/27/19 Rx Acetaminophen [Tylenol] 1,000 mg PO Q4H PRN 05/14/18 11/27/19 History Insulin Detemir [Levemir Flextouch] 8 unit SQ DAILY@1430 05/14/18 11/27/19 History Furosemide [Lasix] 40 mg PO DAILY 01/08/19 11/27/19 History Pantoprazole [Protonix] 40 mg PO BID #60 tablet.dr 01/13/19 11/27/19 Rx HYDROcodone/APAP 5-325MG [Pyrites 1 tab PO BID PRN #120 tab 10/06/19 11/27/19 Rx 5-325] Oxazepam [Serax] 15 mg PO BID #60 capsule 10/06/19 11/27/19 Rx Ferrous Sulfate [Feosol] 325 mg PO BID 11/27/19 11/27/19 History Allergies Allergy/AdvReac Type Severity Reaction Status Date / Time adhesive tape Allergy Rash/Hives Verified 11/26/19 21:53 amoxicillin trihydrate Allergy Unknown Verified 11/26/19 21:53 [From Augmentin] clindamycin HCl Allergy Unknown Verified 11/26/19 21:53 [From Cleocin] clindamycin palmitate HCl Allergy Unknown Verified 11/26/19 21:53 [From Cleocin] clindamycin phosphate Allergy Unknown Verified 11/26/19 21:53 [From Cleocin] codeine Allergy Unknown Verified 11/26/19 21:53 nitrofurantoin Allergy Unknown Verified 11/26/19 21:53 [From Macrobid] nitrofurantoin Allergy Unknown Verified 11/26/19 21:53 macrocrystalline [From Macrobid] Penicillins Allergy Unknown Verified 11/26/19 21:53 potassium clavulanate Allergy Unknown Verified 11/26/19 21:53 [From Augmentin] prednisone Allergy Unknown Verified 11/26/19 21:53 quinine Allergy Unknown Verified 11/26/19 21:53 Sulfa (Sulfonamide Allergy Unknown Verified 11/26/19 21:53 Antibiotics) sulfamethoxazole Allergy Unknown Verified 11/26/19 21:53 [From Bactrim] trimethoprim [From Bactrim] Allergy Unknown Verified 11/26/19 21:53 lorazepam [From Ativan] AdvReac Confusion Verified 11/26/19 21:53 Physical Exam Vitals: Vital Signs Temp Pulse Pulse Resp BP BP Pulse Ox 11/27/19 13:08 79 11/27/19 12:00 98.4 F 77 16 137/69 97 11/27/19 08:20 92 11/27/19 08:10 91 11/27/19 08:00 98.1 F 98 24 127/71 98 11/27/19 07:00 85 13 127/71 100 11/27/19 06:30 88 18 99 11/27/19 06:00 85 15 127/71 99 11/27/19 05:30 86 12 100 11/27/19 05:00 90 15 127/71 97 11/27/19 04:30 89 20 98 11/27/19 04:00 97.8 F 90 16 127/71 95 11/27/19 03:30 92 22 95 11/27/19 03:00 87 13 97 11/27/19 02:30 87 12 97 11/27/19 02:00 98.0 F 88 18 121/60 95 11/27/19 01:50 87 24 96 11/27/19 01:40 89 18 96 11/27/19 01:30 93 15 97 11/27/19 01:24 34 H 11/27/19 01:01 97.7 F 87 18 118/60 99 11/27/19 00:55 98.0 F 87 20 121/60 96 11/27/19 00:00 90 20 141/70 100 11/26/19 23:12 93 24 98/48 95 11/26/19 23:04 94 24 81/48 94 L 11/26/19 22:52 95 24 95/35 93 L 11/26/19 22:42 129/50 11/26/19 22:34 101 H 24 131/57 95 11/26/19 22:10 101 H 28 H 137/62 94 L 11/26/19 21:40 97.7 F 91 30 H 64 L Intake and Output 11/27/19 11/27/19 11/27/19 06:59 14:59 22:59 Intake Total 60 80 Output Total 1000 350 Balance -940 -270 Intake: IV 60 80 0.9 @10 60 80 Output: Urine 1000 350 Straight 500 Other: Voiding Method Bedpan Bedside Commode # Voids 1 Weight 52.163 kg 52.163 kg In general patient is alert and oriented 3 she is very hard of hearing HEENT head normocephalic and atraumatic Neck is supple no JVD no goiter no lymphadenopathy Chest exam reveals a few scattered crackles no wheezing Cardiac exam reveals regular heart sounds no gallops no murmurs Abdomen is soft nontender no organomegaly with normal bowel sounds Extremity exam reveals no edema no cyanosis or clubbing Neurological examination reveals no gross focal deficit Results CBC & Chem 7: 11/26/19 21:55 11/26/19 21:55 Labs: Abnormal Lab Results - Last 24 Hours (Table) 11/26/19 11/26/19 11/26/19 Range/Units 21:55 21:55 21:55 WBC 14.8 H (3.8-10.6) k/uL Hgb 9.8 L D (11.4-16.0) gm/dL MCH 24.4 L (25.0-35.0) pg MCHC 28.0 L (31.0-37.0) g/dL RDW 21.3 H (11.5-15.5) % Plt Count 535 H (150-450) k/uL Neutrophils # 9.9 H (1.3-7.7) k/uL Sodium 136 L (137-145) mmol/L Potassium 5.7 H (3.5-5.1) mmol/L Chloride 97 L (98-107) mmol/L Carbon Dioxide 32 H (22-30) mmol/L BUN 32 H (7-17) mg/dL Creatinine 1.36 H (0.52-1.04) mg/dL Glucose 344 H (74-99) mg/dL POC Glucose (mg/dL) (75-99) mg/dL Plasma Lactic Acid Patricio 2.2 H* (0.7-2.0) mmol/L Troponin I (0.000-0.034) ng/mL 11/26/19 11/27/19 11/27/19 Range/Units 21:55 02:27 06:04 WBC (3.8-10.6) k/uL Hgb (11.4-16.0) gm/dL MCH (25.0-35.0) pg MCHC (31.0-37.0) g/dL RDW (11.5-15.5) % Plt Count (150-450) k/uL Neutrophils # (1.3-7.7) k/uL Sodium (137-145) mmol/L Potassium (3.5-5.1) mmol/L Chloride (98-107) mmol/L Carbon Dioxide (22-30) mmol/L BUN (7-17) mg/dL Creatinine (0.52-1.04) mg/dL Glucose (74-99) mg/dL POC Glucose (mg/dL) 230 H (75-99) mg/dL Plasma Lactic Acid Patricio (0.7-2.0) mmol/L Troponin I 0.516 H* 1.630 H* (0.000-0.034) ng/mL 11/27/19 11/27/19 11/27/19 Range/Units 06:45 07:25 11:32 WBC (3.8-10.6) k/uL Hgb (11.4-16.0) gm/dL MCH (25.0-35.0) pg MCHC (31.0-37.0) g/dL RDW (11.5-15.5) % Plt Count (150-450) k/uL Neutrophils # (1.3-7.7) k/uL Sodium (137-145) mmol/L Potassium (3.5-5.1) mmol/L Chloride (98-107) mmol/L Carbon Dioxide (22-30) mmol/L BUN (7-17) mg/dL Creatinine (0.52-1.04) mg/dL Glucose (74-99) mg/dL POC Glucose (mg/dL) 206 H 204 H 287 H (75-99) mg/dL Plasma Lactic Acid Patricio (0.7-2.0) mmol/L Troponin I (0.000-0.034) ng/mL 11/27/19 Range/Units 12:05 WBC (3.8-10.6) k/uL Hgb (11.4-16.0) gm/dL MCH (25.0-35.0) pg MCHC (31.0-37.0) g/dL RDW (11.5-15.5) % Plt Count (150-450) k/uL Neutrophils # (1.3-7.7) k/uL Sodium (137-145) mmol/L Potassium (3.5-5.1) mmol/L Chloride (98-107) mmol/L Carbon Dioxide (22-30) mmol/L BUN (7-17) mg/dL Creatinine (0.52-1.04) mg/dL Glucose (74-99) mg/dL POC Glucose (mg/dL) (75-99) mg/dL Plasma Lactic Acid Patricio (0.7-2.0) mmol/L Troponin I 2.150 H* (0.000-0.034) ng/mL Thrombosis Risk Factor Assmnt - Choose All That Apply Each Factor Represents 1 point: Abnormal pulmonary function (COPD) Each Risk Factor Represents 3 Points: Age 75 years or older Thrombosis Risk Factor Assessment Total Risk Factor Score: 4 Thrombosis Risk Factor Assessment Level: Moderate Risk Assessment and Plan Plan: #1 acute congestive heart failure exacerbation, possibly diastolic patient had normal left ventricular function in the past, repeat echocardiogram was ordered she was started on IV diuretics #2 acute non-ST elevation myocardial infarction, cardiology consult requested #3 chronic kidney disease, stage III #4 hyperkalemia #5 known history of coronary artery disease with previous angioplasty and stent placement in the past last cardiac catheterization 2018 #6 underlying history of hypertension #7 underlying history of hyperlipidemia maintained on Lipitor #8 underlying history of insulin-dependent diabetes Mellitus. At this time medication and labs were reviewed input from cardiology reviewed continue with current management prognosis is guarded due to age severity of illness and multiple comorbid factors will follow closely.
[2019-11-27 16:43] LABS: Glucose,Whole Blood 92 mg/dL (75-99)
[2019-11-27 20:02] LABS: Glucose,Whole Blood 206 mg/dL (75-99)
[2019-11-27] MEDS: ATORVASTATIN 40 MG TAB PO SCH (20:03)
[2019-11-27] MEDS: SENNOSIDES 8.6 MG TAB PO SCH (20:04)
[2019-11-27] MEDS: HYDROcodone/APAP 5-325MG 1 EACH TAB PO PRN (22:18)
[2019-11-28 03:35] LABS: Glucose,Whole Blood 105 mg/dL (75-99)
[2019-11-28 05:54] LABS: Anisocytosis Moderate; Basophils % (A) 0 %; Eosinophils # (A) 0.1 k/uL (0-0.7); Eosinophils % (A) 1 %; HCT 26.7 % (34.0-46.0); Hypochromasia Marked; Lymphocytes # (A) 1.8 k/uL (1.0-4.8); Lymphocytes % (A) 17 %; MCH 24.5 pg (25.0-35.0); MCHC 29.3 g/dL (31.0-37.0); MCV 83.8 fL (80.0-100.0); Mean Platelet Volume 7.5; Microcytosis Slight; Monocytes # (A) 0.6 k/uL (0-1.0); Monocytes % (A) 6 %; Neutrophils # (A) 7.7 k/uL (1.3-7.7); Neutrophils % (A) 74 %; Platelet Count 414 k/uL (150-450); RBC 3.19 m/uL (3.80-5.40); RDW 21.4 % (11.5-15.5); WBC 10.4 k/uL (3.8-10.6)
[2019-11-28 06:04] LABS: Albumin 3.2 g/dL (3.5-5.0); Calcium 8.9 mg/dL (8.4-10.2); Total Bilirubin 0.2 mg/dL (0.2-1.3); Total Protein 6.8 g/dL (6.3-8.2)
[2019-11-28 06:21] LABS: HGB 7.8 gm/dL (11.4-16.0)
[2019-11-28 06:46] LABS: Glucose,Whole Blood 107 mg/dL (75-99)
[2019-11-28] MEDS: INSULIN ASPART (NovoLOG) 100 UNIT/ML VIAL SQ SCH ×4 (06:53→20:11)
[2019-11-28] MEDS: METOPROLOL TARTRATE 50 MG TAB PO SCH ×2 (08:23→20:03)
[2019-11-28] MEDS: OXAZEPAM 15 MG PO SCH ×2 (08:23→20:50)
[2019-11-28] MEDS: ASPIRIN 81 MG PO SCH (08:23)
[2019-11-28] MEDS: ISOSORBIDE MONONITRATE ER 30 MG TAB.ER.24H PO SCH (08:24)
[2019-11-28] MEDS: PANTOPRAZOLE 40 MG TABLET PO SCH ×2 (08:24→20:03)
[2019-11-28] MEDS: FUROSEMIDE 40 MG TAB PO SCH (08:24)
[2019-11-28] MEDS: SYMBICORT 80-4.5 MCG INHALER INHALATION SCH ×2 (08:45→21:36)
[2019-11-28] MEDS ORDERED: ISOSORBIDE MONONITRATE ER 30 MG TAB.ER.24H PO SCH (10:00)
--- NOTE | 2019-11-28 10:07 | P.PN ---
Subjective Progress Note Date: 11/28/19 Sonal Pritchard is an 89-year-old female who presented to [facility] emergency room with a chief complaint of worsening shortness of breath she was evaluated in emergency room and preliminary diagnosis was acute congestive heart failure exacerbation she was started on IV Lasix and was adm itted to telemetry floor patient denies any chest pain EKG revealed evidence of left bundle branch block which is chronic first troponin was elevated at 0.8 second troponin was 1.6 patient has known history of chronic renal failure, stage III was creatinine of 1.36. On 11/28/2019 patient was seen and examined on the medical floor she is alert and oriented 3 in no apparent distress she is complaining of chest discomfort and shortness of breath otherwise no complaints at this time there is no fever or chills no headache or dizziness no cough no nausea or vomiting no abdominal pain no diarrhea no burning with urination no frequency or urgency and no hematuria Objective - Vital Signs Vital signs: Vital Signs Temp 97.7 F 11/28/19 04:00 Pulse 76 11/28/19 05:00 Resp 16 11/28/19 05:00 BP 142/66 11/28/19 04:00 Pulse Ox 98 11/28/19 04:00 Intake & Output 11/27/19 11/28/19 11/28/19 17:59 06:59 18:59 Intake Total 300 Output Total 350 Balance -50 Weight Intake: IV 0.9 @10 Oral 300 Output: Urine 350 Other: Voiding Method # Voids 1 # Bowel Movements - Exam In general patient is alert and oriented 3 she is very hard of hearing HEENT head normocephalic and atraumatic Neck is supple no JVD no goiter no lymphadenopathy Chest exam reveals a few scattered crackles no wheezing Cardiac exam reveals regular heart sounds no gallops no murmurs Abdomen is soft nontender no organomegaly with normal bowel sounds Extremity exam reveals no edema no cyanosis or clubbing Neurological examination reveals no gross focal deficit - Labs CBC & Chem 7: 11/28/19 05:23 11/28/19 05:23 Labs: Abnormal Lab Results - Last 24 Hours (Table) 11/27/19 11/27/19 11/27/19 Range/Units 11:32 12:05 20:01 RBC (3.80-5.40) m/uL Hgb (11.4-16.0) gm/dL Hct (34.0-46.0) % MCH (25.0-35.0) pg MCHC (31.0-37.0) g/dL RDW (11.5-15.5) % Chloride (98-107) mmol/L Carbon Dioxide (22-30) mmol/L BUN (7-17) mg/dL Creatinine (0.52-1.04) mg/dL POC Glucose (mg/dL) 287 H 206 H (75-99) mg/dL Troponin I 2.150 H* (0.000-0.034) ng/mL Albumin (3.5-5.0) g/dL 11/28/19 11/28/19 11/28/19 Range/Units 03:33 05:23 05:23 RBC 3.19 L (3.80-5.40) m/uL Hgb 7.8 L D (11.4-16.0) gm/dL Hct 26.7 L (34.0-46.0) % MCH 24.5 L (25.0-35.0) pg MCHC 29.3 L (31.0-37.0) g/dL RDW 21.4 H (11.5-15.5) % Chloride 97 L (98-107) mmol/L Carbon Dioxide 35 H (22-30) mmol/L BUN 42 H (7-17) mg/dL Creatinine 1.22 H (0.52-1.04) mg/dL POC Glucose (mg/dL) 105 H (75-99) mg/dL Troponin I (0.000-0.034) ng/mL Albumin 3.2 L (3.5-5.0) g/dL 11/28/19 Range/Units 06:45 RBC (3.80-5.40) m/uL Hgb (11.4-16.0) gm/dL Hct (34.0-46.0) % MCH (25.0-35.0) pg MCHC (31.0-37.0) g/dL RDW (11.5-15.5) % Chloride (98-107) mmol/L Carbon Dioxide (22-30) mmol/L BUN (7-17) mg/dL Creatinine (0.52-1.04) mg/dL POC Glucose (mg/dL) 107 H (75-99) mg/dL Troponin I (0.000-0.034) ng/mL Albumin (3.5-5.0) g/dL Microbiology - Last 24 Hours (Table) 11/26/19 22:33 Blood Culture - Preliminary Blood No Growth after 24 hours Assessment and Plan Plan: #1 acute congestive heart failure exacerbation, possibly diastolic patient had normal left ventricular function in the past, repeat echocardiogram was ordered she was started on IV diuretics #2 acute non-ST elevation myocardial infarction, cardiology consult requested #3 chronic kidney disease, stage III #4 hyperkalemia #5 known history of coronary artery disease with previous angioplasty and stent placement in the past last cardiac catheterization 2017 #6 underlying history of hypertension #7 underlying history of hyperlipidemia maintained on Lipitor #8 underlying history of insulin-dependent diabetes Mellitus. At this time medication and labs were reviewed input from cardiology reviewed continue with current management prognosis is guarded due to age severity of illness and multiple comorbid factors will follow closely.
--- NOTE | 2019-11-28 10:09 | PN ---
PROGRESS NOTE Mrs. Ulloa is an 89 -year-old female with known history of coronary artery disease. History of aortic valve disease who presented with symptoms of progressive dyspnea, evidence of congestive heart failure with mild troponin elevation. She has a known history of hypertension, hyperlipidemia, and diabetes mellitus. She continues to be dyspneic, although better overall. She is denying any chest pain. No dizziness. No palpitation. She denies any nausea. She has some discomfort according to her for a while in the chest that occurs only when she lays down at night but not during the day. She has a history of mild aortic regurgitation, moderate aortic stenosis with moderate to severe tricuspid regurgitation. She has been followed by Dr. Chato Nunez in the past. She continues to be on aspirin once a day, Lipitor 40 mg daily, Lasix 40 mg daily, isosorbide mononitrate 30 mg daily, metoprolol tartrate 100 mg twice a day, Protonix. PHYSICAL EXAMINATION: Blood pressure 140-150 with a heart rate in the 80s. Lungs with few crackles. HEART: Regular rate and rhythm S1, S2. No S3 with systolic murmur ejection type, 2/6 at the base. No diastolic murmur. ABDOMEN: Soft, nontender. EXTREMITIES: No significant edema. LAB DATA: Revealed BUN and creatinine 42 and 1.22. Hemoglobin of 7.8 that has dropped compared to Friday. IMPRESSION: 1. Symptoms of congestive heart failure, multifactorial with a preserved systolic function, could be worsened by the valvular disease or the anemia. 2. Non ST-segment elevation myocardial infarction. The patient has a known history of coronary artery disease with most recent cardiac catheterization revealed no progression of disease. 3. Aortic valve disease. 4. Renal failure. 5. Anemia with recent gastrointestinal bleeding. 6. Hypertension. 7. Hyperlipidemia. 8. Diabetes mellitus. RECOMMENDATION: At this time, I will continue present therapy. I will maximize the medical therapy. Patient is not a very good candidate for aggressive workup at this point, especially with recent bleeding event. I will add to her regimen nitrate. We will follow her hemoglobin closely. Depending on her progress and her symptoms, further recommendation will be made. MMODL / IJN: [id number] /
[2019-11-28] MEDS: MONTELUKAST 10 MG TAB PO SCH (11:21)
--- NOTE | 2019-11-28 11:22 | P.CNPUL ---
History of Present Illness Consult date: 11/28/19 Reason for consult: dyspnea History of present illness: 89-year-old female patient with multiple medical problems and comorbidities came into the hospital because of worsening shortness of breath. She was diagnosed having an acute non-STEMI. Troponin peaked at 2.1. Her proBNP level was 13,002 100. The chest x-ray showed evidence of cardiomegaly, chronic pulmonary fibrosis and possibly a superimposed pulmonary edema. She is a [facility] resident. She is hard of hearing. Her previous echocardiogram showed an ejection fraction of 50-55% along with moderate aortic stenosis a moderate to severe tricuspid regurgitation moderate pulmonary hypertension. She also has history of CAD and prior PCI, proximal atrial fibrillation and she's been within on long-term anticoagulation. That examination is postop because of bleeding complications. Her last cardiac catheterization was in 2018 and the patient had no evidence of any progression of her disease in her LAD or RCA that were stented in the past. Cardiology is currently on the case. She is managed medically and the patient on aspirin and she is receiving Lasix 40 mg by mouth daily. On today's evaluation she is on oxygen at 2 L per minute nasal cannula. She is to have any chest pain. Review of Systems Constitutional: Reports fatigue, Reports weakness Eyes: bilateral blurred vision, bilateral decreased vision, denies bulging eye Ears: bilateral: decreased hearing, deny: ear discharge, earache, tinnitus Breasts: absent: as per HPI, change in shape, gynecomastia, masses, nipple discharge, pain, skin changes, swelling Cardiovascular: Reports chest pain, Reports decreased exercise tolerance, Reports dyspnea on exertion, Reports shortness of breath Respiratory: Reports dyspnea Gastrointestinal: Reports as per HPI Genitourinary: Reports as per HPI Menstruation: Reports as per HPI Musculoskeletal: Reports as per HPI Musculoskeletal: absent: ankle pain, ankle stiffness, ankle swelling Integumentary: Reports as per HPI Neurological: Reports as per HPI, Reports memory loss, Reports weakness Psychiatric: Reports as per HPI Endocrine: Reports as per HPI, Reports fatigue Hematologic/Lymphatic: Reports as per HPI Allergic/Immunologic: Reports allergic rhinitis Past Medical History Past Medical History: Atrial Fibrillation, Coronary Artery Disease (CAD), Chest Pain / Angina, Heart Failure, COPD, CVA/TIA, Diabetes Mellitus, GERD/Reflux, Hearing Disorder / Deafness, Hyperlipidemia, Hypertension, Myocardial Infarction ([place]), Osteoarthritis (OA), Pneumonia, Renal Disease, Skin Disorder Additional Past Medical History / Comment(s): IDDM type II, frequent pneumonia, aspiration pneumonia with sepsis, renal insufficiency, recurrent UTIs, TIA x 3, difficulty swallowing-crushes meds and puts them in yogurt-past EGD/dilations, anemia, eczema, "lazy bowel" but pt states anymore she goes from diarrhea to constipation easily, generalized arthritis, chronic back pain, hiatal hernia, Last Myocardial Infarction Date:: 1998, 09/21/17 History of Any Multi-Drug Resistant Organisms: VRE Date of last positivie culture/infection: 10/07/17 MDRO Source:: VRE URINE Past Surgical History: Cholecystectomy, Heart Catheterization With Stent Additional Past Surgical History / Comment(s): cataracts w/lens implants, ectopic with one ovary/tube removed, heart caths :04/30/96 stent to rca, 03/18/2000 stent to mid rca, 07/22/17 stent to lad Past Anesthesia/Blood Transfusion Reactions: Previous Problems w/ Anesthesia Additional Past Anesthesia/Blood Transfusion Reaction / Comment(s): difficulty breathing after anesthesia Date of Last Stent Placement:: 06/2017 Past Psychological History: Anxiety, Depression Additional Psychological History / Comment(s): Pt resides in an apartment at [facility]. She ambulates with a walker. Her daughter is very helpful and is in an apt above her. Pt has chore person from [place] on aging. She no longer drives, family takes her to appts. She goes up to her daughter's for supper and manages her own medication. Smoking Status: Former smoker Past Alcohol Use History: None Reported Additional Past Alcohol Use History / Comment(s): Patient has history of smoking 2 packs per day started smoking at age 16 Past Drug Use History: None Reported - Past Family History Father History Unknown: Yes Family Medical History: Myocardial Infarction ([place]) Additional Family Medical History / Comment(s): Father had a TN at the age of 50 yrs. He lived to be 75yrs old. Mother History Unknown: Yes Family Medical History: Myocardial Infarction ([place]) Additional Family Medical History / Comment(s): Mother of a TN at about age 80yrs. Medications and Allergies Home Medications Medication Instructions Recorded Confirmed Type RX: Ipratropium-Albuterol Nebulize 3 ml INHALATION RT-TID PRN 08/20/16 11/27/19 History [Duoneb 0.5 mg-3 mg/3 ml Soln] RX: Montelukast [Singulair] 10 mg PO DAILY@1200 05/17/17 11/27/19 History RX: Fluticasone/Salmeterol [Advair 1 puff INHALATION RT-BID 05/18/17 11/27/19 History 250-50 Diskus] RX: Metoprolol Tartrate [Lopressor] 100 mg PO BID 07/18/17 11/27/19 History RX: Sennosides [Senna] 8.6 mg PO HS 07/18/17 11/27/19 History RX: Atorvastatin [Lipitor] 40 mg PO HS #30 tab 07/23/17 11/27/19 Rx RX: Nitroglycerin Sl Tabs 0.4 mg SUBLINGUAL Q5M PRN #25 tab 07/23/17 11/27/19 Rx [Nitrostat] RX: Isosorbide Mononitrate ER 30 mg PO DAILY #30 tab.er.24h 09/23/17 11/27/19 Rx [Imdur] RX: Acetaminophen [Tylenol] 1,000 mg PO Q4H PRN 05/14/18 11/27/19 History RX: Insulin Detemir [Levemir 8 unit SQ DAILY@1430 05/14/18 11/27/19 History Flextouch] RX: Furosemide [Lasix] 40 mg PO DAILY 01/08/19 11/27/19 History RX: Pantoprazole [Protonix] 40 mg PO BID #60 tablet.dr 01/13/19 11/27/19 Rx RX: HYDROcodone/APAP 5-325MG 1 tab PO BID PRN #120 tab 10/06/19 11/27/19 Rx [[place] 5-325] RX: Oxazepam [Serax] 15 mg PO BID #60 capsule 10/06/19 11/27/19 Rx Ferrous Sulfate [Feosol] 325 mg PO BID 11/27/19 11/27/19 History Allergies Allergy/AdvReac Type Severity Reaction Status Date / Time adhesive tape Allergy Rash/Hives Verified 11/26/19 21:53 amoxicillin trihydrate Allergy Unknown Verified 11/26/19 21:53 [From Augmentin] clindamycin HCl Allergy Unknown Verified 11/26/19 21:53 [From Cleocin] clindamycin palmitate HCl Allergy Unknown Verified 11/26/19 21:53 [From Cleocin] clindamycin phosphate Allergy Unknown Verified 11/26/19 21:53 [From Cleocin] codeine Allergy Unknown Verified 11/26/19 21:53 nitrofurantoin Allergy Unknown Verified 11/26/19 21:53 [From Macrobid] nitrofurantoin Allergy Unknown Verified 11/26/19 21:53 macrocrystalline [From Macrobid] Penicillins Allergy Unknown Verified 11/26/19 21:53 potassium clavulanate Allergy Unknown Verified 11/26/19 21:53 [From Augmentin] prednisone Allergy Unknown Verified 11/26/19 21:53 quinine Allergy Unknown Verified 11/26/19 21:53 Sulfa (Sulfonamide Allergy Unknown Verified 11/26/19 21:53 Antibiotics) sulfamethoxazole Allergy Unknown Verified 11/26/19 21:53 [From Bactrim] trimethoprim [From Bactrim] Allergy Unknown Verified 11/26/19 21:53 lorazepam [From Ativan] AdvReac Confusion Verified 11/26/19 21:53 Physical Exam Vitals: Vital Signs Temp Pulse Resp BP Pulse Ox 11/28/19 08:00 97.7 F 89 19 151/90 98 11/28/19 05:00 76 16 11/28/19 04:00 97.7 F 77 17 142/66 98 11/28/19 03:03 71 15 11/28/19 01:00 73 14 11/28/19 00:02 73 15 11/28/19 00:00 97.7 F 75 12 131/65 96 11/27/19 23:00 71 16 11/27/19 22:00 79 21 11/27/19 21:00 72 19 99 11/27/19 20:00 98.0 F 96 12 162/74 98 11/27/19 19:53 100 11/27/19 19:35 87 11/27/19 19:00 84 22 151/74 98 11/27/19 18:00 89 19 96 11/27/19 16:00 98.0 F 76 24 151/74 97 11/27/19 13:08 79 11/27/19 12:00 98.4 F 77 16 137/69 97 Intake and Output 11/27/19 11/28/19 11/28/19 21:59 06:59 14:59 Intake Total 300 Output Total 350 Balance -50 Intake: IV 0.9 @10 Oral 300 Output: Urine 350 Other: Voiding Method Bedside Commode # Voids 1 # Bowel Movements Weight In general patient is alert and oriented 3 she is very hard of hearing Head exam was generally normal. There was no scleral icterus or corneal arcus. Mucous membranes were moist. Neck was supple and without jugular venous distension, thyromegaly, or carotid bruits. Carotids were easily palpable bilaterally. There was no adenopathy. HEENT head normocephalic and atraumatic Neck is supple no JVD no goiter no lymphadenopathy Chest exam reveals a few scattered crackles no wheezing, the patient has a thoracic kyphosis Cardiac exam reveals regular heart sounds no gallops no murmurs Abdomen is soft nontender no organomegaly with normal bowel sounds Extremity exam reveals no edema no cyanosis or clubbing Neurological examination reveals no gross focal deficit Examination of the skin revealed no evidence of significant rashes, suspicious appearing nevi or other concerning lesions. Results - Laboratory Findings CBC and BMP: 11/28/19 05:23 11/28/19 05:23 PT/INR, D-dimer PT 9.5 sec (9.0-12.0) 11/26/19 21:55 INR 0.9 (<1.2) 11/26/19 21:55 Abnormal lab findings: Abnormal Labs 11/26/19 11/26/19 11/26/19 21:55 21:55 21:55 WBC 14.8 H RBC Hgb 9.8 L D Hct MCH 24.4 L MCHC 28.0 L RDW 21.3 H Plt Count 535 H Neutrophils # 9.9 H Sodium 136 L Potassium 5.7 H Chloride 97 L Carbon Dioxide 32 H BUN 32 H Creatinine 1.36 H Glucose 344 H POC Glucose (mg/dL) Plasma Lactic Acid Patricio 2.2 H* Troponin I Albumin 11/26/19 11/27/19 11/27/19 21:55 02:27 06:04 WBC RBC Hgb Hct MCH MCHC RDW Plt Count Neutrophils # Sodium Potassium Chloride Carbon Dioxide BUN Creatinine Glucose POC Glucose (mg/dL) 230 H Plasma Lactic Acid Patricio Troponin I 0.516 H* 1.630 H* Albumin 11/27/19 11/27/1911/26/20 06:45 07:25 11:32 WBC RBC Hgb Hct MCH MCHC RDW Plt Count Neutrophils # Sodium Potassium Chloride Carbon Dioxide BUN Creatinine Glucose POC Glucose (mg/dL) 206 H 204 H 287 H Plasma Lactic Acid Patricio Troponin I Albumin 11/27/19 11/27/19 11/28/19 12:05 20:01 03:33 WBC RBC Hgb Hct MCH MCHC RDW Plt Count Neutrophils # Sodium Potassium Chloride Carbon Dioxide BUN Creatinine Glucose POC Glucose (mg/dL) 206 H 105 H Plasma Lactic Acid Patricio Troponin I 2.150 H* Albumin 11/28/19 11/28/19 11/28/19 05:23 05:23 06:45 WBC RBC 3.19 L Hgb 7.8 L D Hct 26.7 L MCH 24.5 L MCHC 29.3 L RDW 21.4 H Plt Count Neutrophils # Sodium Potassium Chloride 97 L Carbon Dioxide 35 H BUN 42 H Creatinine 1.22 H Glucose POC Glucose (mg/dL) 107 H Plasma Lactic Acid Patricio Troponin I Albumin 3.2 L - Diagnostic Findings Chest x-ray: image reviewed Assessment and Plan Plan: 1 acute non-ST segment elevation myocardial infarction in patient with known history of coronary artery disease. Her previous coronary interventions were noted in the last cardiac catheterization was in 2018. The patient has had previous stenting of the LAD and RCA. Currently she is free of any chest pain. 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 8 impaired hearing 9 stage III chronic kidney disease 10 paroxysmal atrial fibrillation currently in sinus medically candidate for anticoagulation due to previous of GI bleed 11 acid reflux 12 previous history of aspiration pneumonia 13 previous history of recurrent UTIs 14 previous history of TIA 15 chronic back pain and degenerative arthritis 15 history of VRE in the urine Plan Optimize CHF and cardiac status. Medical management regarding the non-STEMI and CHF. She is on oral Lasix. She is on 2 L about 2 by nasal cannula. She is off the BiPAP for now. Repeat chest x-ray in the morning. We'll continue to follow.
[2019-11-28 11:44] LABS: Glucose,Whole Blood 142 mg/dL (75-99)
[2019-11-28] MEDS: IPRATROPIUM-ALBUTEROL 3 ML NEB INHALATION PRN ×2 (13:04→21:36)
[2019-11-28 15:32] LABS: Anisocytosis Moderate; Basophils % (A) 0 %; Eosinophils # (A) 0.3 k/uL (0-0.7); Eosinophils % (A) 3 %; HCT 29.7 % (34.0-46.0); HGB 8.7 gm/dL (11.4-16.0); Hypochromasia Marked; Lymphocytes # (A) 1.7 k/uL (1.0-4.8); Lymphocytes % (A) 15 %; MCHC 29.2 g/dL (31.0-37.0); MCV 85.4 fL (80.0-100.0); Mean Platelet Volume 7.5; Microcytosis Slight; Monocytes # (A) 0.7 k/uL (0-1.0); Monocytes % (A) 7 %; Neutrophils # (A) 7.7 k/uL (1.3-7.7); Neutrophils % (A) 72 %; Platelet Count 442 k/uL (150-450); RBC 3.47 m/uL (3.80-5.40); RDW 21.4 % (11.5-15.5); WBC 10.7 k/uL (3.8-10.6)
[2019-11-28] MEDS: INSULIN DETEMIR (LEVEMIR) 100 UNIT/ML SYR SQ SCH (15:56)
[2019-11-28 17:14] LABS: Glucose,Whole Blood 94 mg/dL (75-99)
[2019-11-28 17:16] LABS: Glucose,Whole Blood 101 mg/dL (75-99)
--- NOTE | 2019-11-28 19:12 | P.CONS ---
History of Present Illness - Reason for Consult Consult date: 11/28/19 Anemia Requesting physician: Dai Bacon - Chief Complaint Shortness of breath - History of Present Illness 89-year-old female with multiple medical comorbidities including COPD, congestive heart failure, hypertension, diabetes mellitus, hyperlipidemia, osteoarthritis, atrial fibrillation who presented to the hospital with complaints of worsening shortness of breath. Currently the patient is receiving treatment for an acute non-ST elevation IL as well as exacerbation of her COPD. Previously the patient had been seen for microcytic anemia. At that time stool testing was negative for occult blood. The patient had reported intermittent episodes of bright red blood per rectum, which she associated with constipation and occasional manual fecal disimpaction. At that time extensive discussion with the patient and her daughter who opted for medical management as the patient is high risk for endoscopic evaluation given her underlying cardiac and lung function. Currently she is seen lying comfortably bedside. Denying any abdominal pain. No recent signs or symptoms of GI bleeding. On presentation was 7.8 from 9.8 in the ER however this is stable from prior admission in 09/2020 patient was discharged with a hemoglobin of 8.2. She denies any prior history of upper GI bleed or peptic ulcer disease. She denies excessive NSAID use. She believes her last colonoscopy was performed remotely. Review of Systems REVIEW OF SYSTEMS: CONSTITUTIONAL: Denies any fevers, chills, but the patient is reporting short ness of breath. CARDIOVASCULAR: Denies any chest pain, palpitations high or low blood pressures, but she does have a known history of coronary artery disease and atrophic fibrillation. RESPIRATORY: Denies any hemoptysis but she did have significant shortness of breath on presentation which she feels is improved. GENITOURINARY: No dysuria or hematuria. MUSCULOSKELETAL: No weakness reported. SKIN: Denies any new rashes or lesions, jaundice or pallor. PSYCHIATRIC: Denies any depression or anxiety. NEUROLOGY: Denies headache, denies any new focal deficits. EARS/NOSE/THROAT: No recent hearing change, congestion, nasal discharge or sore throat. EYES: No pain in eyes, discharge or change in vision. GASTROINTESTINAL: As per HPI. Past Medical History Past Medical History: Atrial Fibrillation, Coronary Artery Disease (CAD), Chest Pain / Angina, Heart Failure, COPD, CVA/TIA, Diabetes Mellitus, GERD/Reflux, Hearing Disorder / Deafness, Hyperlipidemia, Hypertension, Myocardial Infarction ([place]), Osteoarthritis (OA), Pneumonia, Renal Disease, Skin Disorder Additional Past Medical History / Comment(s): IDDM type II, frequent pneumonia, aspiration pneumonia with sepsis, renal insufficiency, recurrent UTIs, TIA x 3, difficulty swallowing-crushes meds and puts them in yogurt-past EGD/dilations, anemia, eczema, "lazy bowel" but pt states anymore she goes from diarrhea to constipation easily, generalized arthritis, chronic back pain, hiatal hernia, Last Myocardial Infarction Date:: 1998, 09/21/17 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 MDRO Source:: VRE URINE Past Surgical History: Cholecystectomy, Heart Catheterization With Stent Additional Past Surgical History / Comment(s): cataracts w/lens implants, ectopic with one ovary/tube removed, heart caths :04/30/96 stent to rca, 03/18/2000 stent to mid rca, 07/22/17 stent to lad Past Anesthesia/Blood Transfusion Reactions: Previous Problems w/ Anesthesia Additional Past Anesthesia/Blood Transfusion Reaction / Comm: difficulty breathing after anesthesia Date of Last Stent Placement:: 06/2017 Past Psychological History: Anxiety, Depression Additional Psychological History / Comment(s): Pt resides in an apartment at [place]. She ambulates with a walker. Her daughter is very helpful and is in an apt above her. Pt has chore person from [place] on aging. She no longer drives, family takes her to [employer]. She goes up to her daughter's for supper and manages her own medication. Smoking Status: Former smoker Past Alcohol Use History: None Reported Additional Past Alcohol Use History / Comment(s): Patient has history of smoking 2 packs per day started smoking at age 16 Past Drug Use History: None Reported - Past Family History Father History Unknown: Yes Family Medical History: Myocardial Infarction ([place]) Additional Family Medical History / Comment(s): Father had a IL at the age of 50 yrs. He lived to be 75yrs old. Mother History Unknown: Yes Family Medical History: Myocardial Infarction ([place]) Additional Family Medical History / Comment(s): Mother of a IL at about age 80yrs. Medications and Allergies Home Medications Medication Instructions Recorded Confirmed Type Ipratropium-Albuterol Nebulize 3 ml INHALATION RT-TID PRN 08/20/16 11/27/19 History [Duoneb 0.5 mg-3 mg/3 ml Soln] Montelukast [Singulair] 10 mg PO DAILY@1200 05/17/17 11/27/19 History Fluticasone/Salmeterol [Advair 1 puff INHALATION RT-BID 05/18/17 11/27/19 History 250-50 Diskus] Metoprolol Tartrate [Lopressor] 100 mg PO BID 07/18/17 11/27/19 History Sennosides [Senna] 8.6 mg PO HS 07/18/17 11/27/19 History Atorvastatin [Lipitor] 40 mg PO HS #30 tab 07/23/17 11/27/19 Rx Nitroglycerin Sl Tabs [Nitrostat] 0.4 mg SUBLINGUAL Q5M PRN #25 tab 07/23/17 11/27/19 Rx Isosorbide Mononitrate ER [Imdur] 30 mg PO DAILY #30 tab.er.24h 09/23/17 11/27/19 Rx Acetaminophen [Tylenol] 1,000 mg PO Q4H PRN 05/14/18 11/27/19 History Insulin Detemir [Levemir Flextouch] 8 unit SQ DAILY@1430 05/14/18 11/27/19 History Furosemide [Lasix] 40 mg PO DAILY 01/08/19 11/27/19 History Pantoprazole [Protonix] 40 mg PO BID #60 tablet.dr 01/13/19 11/27/19 Rx HYDROcodone/APAP 5-325MG [[place] 1 tab PO BID PRN #120 tab 10/06/19 11/27/19 Rx 5-325] Oxazepam [Serax] 15 mg PO BID #60 capsule 10/06/19 11/27/19 Rx Ferrous Sulfate [Feosol] 325 mg PO BID 11/27/19 11/27/19 History Allergies Allergy/AdvReac Type Severity Reaction Status Date / Time adhesive tape Allergy Rash/Hives Verified 11/26/19 21:53 amoxicillin trihydrate Allergy Unknown Verified 11/26/19 21:53 [From Augmentin] clindamycin HCl Allergy Unknown Verified 11/26/19 21:53 [From Cleocin] clindamycin palmitate HCl Allergy Unknown Verified 11/26/19 21:53 [From Cleocin] clindamycin phosphate Allergy Unknown Verified 11/26/19 21:53 [From Cleocin] codeine Allergy Unknown Verified 11/26/19 21:53 nitrofurantoin Allergy Unknown Verified 11/26/19 21:53 [From Macrobid] nitrofurantoin Allergy Unknown Verified 11/26/19 21:53 macrocrystalline [From Macrobid] Penicillins Allergy Unknown Verified 11/26/19 21:53 potassium clavulanate Allergy Unknown Verified 11/26/19 21:53 [From Augmentin] prednisone Allergy Unknown Verified 11/26/19 21:53 quinine Allergy Unknown Verified 11/26/19 21:53 Sulfa (Sulfonamide Allergy Unknown Verified 11/26/19 21:53 Antibiotics) sulfamethoxazole Allergy Unknown Verified 11/26/19 21:53 [From Bactrim] trimethoprim [From Bactrim] Allergy Unknown Verified 11/26/19 21:53 lorazepam [From Ativan] AdvReac Confusion Verified 11/26/19 21:53 Physical Exam Vitals: Vital Signs Temp Pulse Resp BP Pulse Ox 11/28/19 08:00 97.7 F 89 19 151/90 98 11/28/19 05:00 76 16 11/28/19 04:00 97.7 F 77 17 142/66 98 11/28/19 03:03 71 15 11/28/19 01:00 73 14 11/28/19 00:02 73 15 11/28/19 00:00 97.7 F 75 12 131/65 96 11/27/19 23:00 71 16 11/27/19 22:00 79 21 11/27/19 21:00 72 19 99 11/27/19 20:00 98.0 F 96 12 162/74 98 11/27/19 19:53 100 11/27/19 19:35 87 11/27/19 19:00 84 22 151/74 98 11/27/19 18:00 89 19 96 11/27/19 16:00 98.0 F 76 24 151/74 97 11/27/19 13:08 79 11/27/19 12:00 98.4 F 77 16 137/69 97 Intake and Output 11/27/19 11/28/19 11/28/19 21:59 06:59 14:59 Intake Total 300 Output Total 350 Balance -50 Intake: IV 0.9 @10 Oral 300 Output: Urine 350 Other: Voiding Method # Voids 1 # Bowel Movements Weight On physical examination, patient appears comfortable in no apparent distress. HEAD: Normocephalic, atraumatic. EYES: No scleral icterus. No conjunctival injection. MOUTH: No lesions, tongue midline. NECK: Trachea midline, no gross abnormalities. CHEST: Decreased air entry in all lung scruggs with no audible wheezing appreciated. HEART: S1-S2 appreciated. ABDOMEN: Soft, thin and nontender. Bowel sounds are positive. No organomegaly. No guarding or rigidity. EXTREMITIES: Bilateral pedal edema. SKIN: No rashes, no jaundice. NEUROLOGIC: Alert and oriented to person and place. Results CBC & Chem 7: 11/28/19 15:11 11/28/19 05:23 Labs: Abnormal Lab Results - Last 24 Hours (Table) 11/27/19 11/27/19 11/27/19 Range/Units 11:32 12:05 20:01 RBC (3.80-5.40) m/uL Hgb (11.4-16.0) gm/dL Hct (34.0-46.0) % MCH (25.0-35.0) pg MCHC (31.0-37.0) g/dL RDW (11.5-15.5) % Chloride (98-107) mmol/L Carbon Dioxide (22-30) mmol/L BUN (7-17) mg/dL Creatinine (0.52-1.04) mg/dL POC Glucose (mg/dL) 287 H 206 H (75-99) mg/dL Troponin I 2.150 H* (0.000-0.034) ng/mL Albumin (3.5-5.0) g/dL 11/28/19 11/28/19 11/28/19 Range/Units 03:33 05:23 05:23 RBC 3.19 L (3.80-5.40) m/uL Hgb 7.8 L D (11.4-16.0) gm/dL Hct 26.7 L (34.0-46.0) % MCH 24.5 L (25.0-35.0) pg MCHC 29.3 L (31.0-37.0) g/dL RDW 21.4 H (11.5-15.5) % Chloride 97 L (98-107) mmol/L Carbon Dioxide 35 H (22-30) mmol/L BUN 42 H (7-17) mg/dL Creatinine 1.22 H (0.52-1.04) mg/dL POC Glucose (mg/dL) 105 H (75-99) mg/dL Troponin I (0.000-0.034) ng/mL Albumin 3.2 L (3.5-5.0) g/dL 11/28/19 Range/Units 06:45 RBC (3.80-5.40) m/uL Hgb (11.4-16.0) gm/dL Hct (34.0-46.0) % MCH (25.0-35.0) pg MCHC (31.0-37.0) g/dL RDW (11.5-15.5) % Chloride (98-107) mmol/L Carbon Dioxide (22-30) mmol/L BUN (7-17) mg/dL Creatinine (0.52-1.04) mg/dL POC Glucose (mg/dL) 107 H (75-99) mg/dL Troponin I (0.000-0.034) ng/mL Albumin (3.5-5.0) g/dL Microbiology - Last 24 Hours (Table) 11/26/19 22:33 Blood Culture - Preliminary Blood No Growth after 24 hours Chest x-ray: report reviewed (Chest x-ray with fluid overload suggestive of congestive heart failure) Assessment and Plan (1) Iron deficiency anemia Narrative/Plan: 39-year-old female with multiple medical comorbidities presenting to the hospital due to shortness of breath. Currently receiving treatment for acute exacerbation of congestive heart failure and non-ST elevation IL. Previously seen in September at which time the patient was found to be anemic. Stool testing at that time negative for occult blood. Iron studies consistent with iron deficiency anemia. She denies any gross signs or symptoms of bleeding at this time but does report occasionally seeing gross blood with wiping in association with constipation and manual fecal disimpaction. Remote history of colonoscopy. Denies any risk factors for upper GI bleed. On her last hospitalization patient and family decided against endoscopic evaluation is a patient is high risk given underlying cardiac and pulmonary comorbidities. Currently satting bedside she is reporting improvement and shortness of breath and denying any abdominal pain or signs or symptoms of bleeding. Hemoglobin at 7.8 today stable from discharge hemoglobin of 8.2 previously. Current Visit: Yes Status: Acute Code(s): D50.9 - IRON DEFICIENCY ANEMIA, UNSPECIFIED SNOMED Code(s): 20282189 Plan: Supportive care Okay for diet Continue to monitor CBC and transfuse as needed Continue to monitor for signs or symptoms of GI bleed Continue medical management of other comorbidities Continue nightly bowel regimen Continue Protonix therapy No plans for endoscopic evaluation at this time per the wishes of the patient and her family, we will continue to follow and reevaluate if patient develops overt signs of bleeding or precipitous fall in hemoglobin Thank you for allowing us to participate in the care of the patient we will continue to follow
[2019-11-28] MEDS: SENNOSIDES 8.6 MG TAB PO SCH (20:03)
[2019-11-28] MEDS: ATORVASTATIN 40 MG TAB PO SCH (20:03)
[2019-11-28 20:07] LABS: Glucose,Whole Blood 134 mg/dL (75-99)
[2019-11-28] MEDS: HYDROcodone/APAP 5-325MG 1 EACH TAB PO PRN (21:14)
[2019-11-29 02:16] LABS: Glucose,Whole Blood 95 mg/dL (75-99)
[2019-11-29 05:06] LABS: Anisocytosis Moderate; Basophils % (A) 1 %; Eosinophils # (A) 0.4 k/uL (0-0.7); Eosinophils % (A) 5 %; HCT 30.1 % (34.0-46.0); HGB 8.6 gm/dL (11.4-16.0); Hypochromasia Marked; Lymphocytes # (A) 2.4 k/uL (1.0-4.8); Lymphocytes % (A) 26 %; MCH 23.8 pg (25.0-35.0); MCHC 28.6 g/dL (31.0-37.0); MCV 83.3 fL (80.0-100.0); Mean Platelet Volume 7.5; Microcytosis Slight; Monocytes # (A) 0.7 k/uL (0-1.0); Monocytes % (A) 7 %; Neutrophils # (A) 5.6 k/uL (1.3-7.7); Neutrophils % (A) 60 %; Platelet Count 442 k/uL (150-450); RBC 3.61 m/uL (3.80-5.40); RDW 21.3 % (11.5-15.5); WBC 9.3 k/uL (3.8-10.6)
[2019-11-29 05:15] LABS: Albumin 3.4 g/dL (3.5-5.0); Calcium 9.4 mg/dL (8.4-10.2); Potassium 4.8 mmol/L (3.5-5.1); Total Bilirubin 0.3 mg/dL (0.2-1.3); Total Protein 7.2 g/dL (6.3-8.2)
[2019-11-29 06:50] LABS: Glucose,Whole Blood 102 mg/dL (75-99)
[2019-11-29] MEDS: INSULIN ASPART (NovoLOG) 100 UNIT/ML VIAL SQ SCH ×4 (06:50→22:23)
[2019-11-29] MEDS ORDERED: BISACODYL 10 MG SUPP RECTAL PRN (08:01)
[2019-11-29] MEDS: SYMBICORT 80-4.5 MCG INHALER INHALATION SCH ×2 (09:28→20:16)
[2019-11-29] MEDS: IPRATROPIUM-ALBUTEROL 3 ML NEB INHALATION PRN ×3 (09:28→20:14)
--- NOTE | 2019-11-29 09:28 | PN ---
PROGRESS NOTE Mrs. Ulloa is an 89-year-old female who presented with symptoms of progressive dyspnea. She has a known history of coronary artery disease, history of aortic valve disease. She still has dyspnea, but she has no associated chest pain. She denies any dizziness or palpitation. She denies any nausea. Hemodynamically, she is stable. She has no malignant arrhythmia and is not requiring pressors. She was evaluated yesterday by Dr. Albarran and was seen by Dr. Stone. She continues to be at this time on aspirin 81 mg daily, Lipitor 40 mg daily, Lasix 40 mg daily, isosorbide mononitrate 30 mg daily, metoprolol tartrate 100 mg twice a day. PHYSICAL EXAMINATION: Blood pressure running in the 120s with the heart rate in the 70s. LUNGS: With decreased air exchange, but no wheezes. HEART: Regular rate and rhythm. S1, S2. No S3. No rub appreciated. ABDOMEN: Soft, nontender. EXTREMITIES: No edema. LAB DATA: Lab data revealed BUN and creatinine 43 and 1.15, potassium 4.8, hemoglobin of 8.6. IMPRESSION: 1. Progressive dyspnea with episode of congestive heart failure and [id number] elevation myocardial infarction. Patient is stable. 2. History of coronary artery disease, status post percutaneous revascularization. 3. Renal failure. 4. Anemia. 5. Moderate aortic stenosis and moderate severe tricuspid regurgitation. 6. Hyperlipidemia. 7. Diabetes mellitus. RECOMMENDATION: From the cardiac standpoint, I will maximize her medical therapy. I do not believe that the patient is a candidate for aggressive workup. We will increase her activity and depending on her progress, I am hopeful that she should be able to be discharged home in the next 24 to 48 hours. MMODL / IJN: [id number] /
[2019-11-29] MEDS: ASPIRIN 81 MG PO SCH (09:44)
[2019-11-29] MEDS: FUROSEMIDE 40 MG TAB PO SCH (09:44)
[2019-11-29] MEDS: ISOSORBIDE MONONITRATE ER 30 MG TAB.ER.24H PO SCH (09:45)
[2019-11-29] MEDS: OXAZEPAM 15 MG PO SCH ×2 (09:45→23:25)
[2019-11-29] MEDS: PANTOPRAZOLE 40 MG TABLET PO SCH ×2 (09:45→22:18)
[2019-11-29] MEDS: METOPROLOL TARTRATE 50 MG TAB PO SCH ×2 (09:45→22:17)
--- NOTE | 2019-11-29 10:24 | P.PN ---
Subjective Progress Note Date: 11/29/19 89-year-old female patient with multiple medical problems and comorbidities came into the hospital because of worsening shortness of breath. She was diagnosed having an acute non-STEMI. Troponin peaked at 2.1. Her proBNP level was 13,002 100. The chest x-ray showed evidence of cardiomegaly, chronic pulmonary fibrosis and possibly a superimposed pulmonary edema. She is a intermediate resident. She is hard of hearing. Her previous echocardiogram showed an ejection fraction of 50-55% along with moderate aortic stenosis a moderate to severe tricuspid regurgitation moderate pulmonary hypertension. She also has history of CAD and prior PCI, proximal atrial fibrillation and she's been within on long-term anticoagulation. That examination is postop because of bleeding complications. Her last cardiac catheterization was in 2018 and the patient had no evidence of any progression of her disease in her LAD or RCA that were stented in the past. Cardiology is currently on the case. She is managed medically and the patient on aspirin and she is receiving Lasix 40 mg by mouth daily. On today's evaluation she is on oxygen at 2 L per minute nasal cannula. She is to have any chest pain. The patient is seen today 11/29/2019 in [facility] is currently awake and alert in no acute distress. Maintaining O2 saturations in the mid 90s on 2 L/m per nasal canula. blood cultures reveal no growth. White count 9.3. Hemoglobin 8.6. Sodium 136. Potassium 4.8. Chloride 97. Creatine 1.5. She is continued on DuoNeb inhalations, symbicort, Singulair. No chest discomfort, no palpitations, no lightheadedness or dizziness. Objective - Vital Signs Vital signs: Vital Signs Temp 97.4 F L 11/29/19 08:00 Pulse 80 11/29/19 09:53 Resp 24 11/29/19 08:00 BP 131/81 11/29/19 08:00 Pulse Ox 95 11/29/19 09:41 Intake & Output 11/28/19 11/29/19 11/29/19 18:59 06:59 18:59 Intake Total 450 800 Output Total 1150 960 Balance -700 -160 Weight 50.4 kg 48.4 kg Intake: Oral 450 800 Output: Urine 1150 960 Other: Voiding Method Bedside Commode Bedside Commode # Voids 2 - Exam In general Very pleasant 89-year-old female patient, is alert and oriented 3 she is very hard of hearing Head exam was generally normal. There was no scleral icterus or corneal arcus. Mucous membranes were moist. Neck was supple and without jugular venous distension, thyromegaly, or carotid bruits. Carotids were easily palpable bilaterally. There was no adenopathy. HEENT head normocephalic and atraumatic Neck is supple no JVD no goiter no lymphadenopathy Chest exam reveals a few scattered crackles no wheezing, the patient has a thoracic kyphosis Cardiac exam reveals regular heart sounds no gallops positive murmur Abdomen is soft nontender no organomegaly with normal bowel sounds Extremity exam reveals no edema no cyanosis or clubbing Neurological examination reveals no gross focal deficit Examination of the skin revealed no evidence of significant rashes, suspicious appearing nevi or other concerning lesions. - Labs CBC & Chem 7: 11/29/19 04:13 11/29/19 04:13 Labs: Abnormal Lab Results - Last 24 Hours (Table) 11/28/19 11/28/19 11/28/19 Range/Units 11:42 15:11 16:53 WBC 10.7 H (3.8-10.6) k/uL RBC 3.47 L (3.80-5.40) m/uL Hgb 8.7 L (11.4-16.0) gm/dL Hct 29.7 L (34.0-46.0) % MCH (25.0-35.0) pg MCHC 29.2 L (31.0-37.0) g/dL RDW 21.4 H (11.5-15.5) % Sodium (137-145) mmol/L Chloride (98-107) mmol/L Carbon Dioxide (22-30) mmol/L BUN (7-17) mg/dL Creatinine (0.52-1.04) mg/dL POC Glucose (mg/dL) 142 H 101 H (75-99) mg/dL Albumin (3.5-5.0) g/dL 11/28/19 11/29/19 11/29/19 Range/Units 20:06 04:13 04:13 WBC (3.8-10.6) k/uL RBC 3.61 L (3.80-5.40) m/uL Hgb 8.6 L (11.4-16.0) gm/dL Hct 30.1 L (34.0-46.0) % MCH 23.8 L (25.0-35.0) pg MCHC 28.6 L (31.0-37.0) g/dL RDW 21.3 H (11.5-15.5) % Sodium 136 L (137-145) mmol/L Chloride 97 L (98-107) mmol/L Carbon Dioxide 33 H (22-30) mmol/L BUN 43 H (7-17) mg/dL Creatinine 1.15 H (0.52-1.04) mg/dL POC Glucose (mg/dL) 134 H (75-99) mg/dL Albumin 3.4 L (3.5-5.0) g/dL 11/29/19 Range/Units 06:49 WBC (3.8-10.6) k/uL RBC (3.80-5.40) m/uL Hgb (11.4-16.0) gm/dL Hct (34.0-46.0) % MCH (25.0-35.0) pg MCHC (31.0-37.0) g/dL RDW (11.5-15.5) % Sodium (137-145) mmol/L Chloride (98-107) mmol/L Carbon Dioxide (22-30) mmol/L BUN (7-17) mg/dL Creatinine (0.52-1.04) mg/dL POC Glucose (mg/dL) 102 H (75-99) mg/dL Albumin (3.5-5.0) g/dL Microbiology - Last 24 Hours (Table) 11/26/19 22:33 Blood Culture - Preliminary Blood No Growth after 48 hours Assessment and Plan Assessment: 1 acute non-ST segment elevation myocardial infarction in patient with known history of coronary artery disease. Her previous coronary interventions were noted in the last cardiac catheterization was in 2018. The patient has had previous stenting of the LAD and RCA. Currently she is free of any chest pain. 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 8 impaired hearing 9 stage III chronic kidney disease 10 paroxysmal atrial fibrillation currently in sinus medically candidate for anticoagulation due to previous of GI bleed 11 acid reflux 12 previous history of aspiration pneumonia 13 previous history of recurrent UTIs 14 previous history of TIA 15 chronic back pain and degenerative arthritis 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 Calixto. She is currently stable fror current treatment cuong No plans for intervardiology. Continue medical therapy. [facility] I, the cosigning physician, performed a history & physical examination of the patient. Lungs sounds few scattered crackles in the posterior bases. Maintaining good O2 saturations in the 90s on 2 L/m per nasal cannula.. I discussed the assessment and plan of care with my nurse practitioner, Nargis Leon. I attest to the above note as dictated by her.
--- NOTE | 2019-11-29 10:33 | P.PN ---
Subjective Progress Note Date: 11/29/19 Sonal Pritchard is an 89-year-old female who presented to [facility] emergency room with a chief complaint of worsening shortness of breath she was evaluated in emergency room and preliminary diagnosis was acute congestive heart failure exacerbation she was started on IV Lasix and was admi tted to telemetry floor patient denies any chest pain EKG revealed evidence of left bundle branch block which is chronic first troponin was elevated at 0.8 second troponin was 1.6 patient has known history of chronic renal failure, stage III was creatinine of 1.36. On 11/28/2019 patient was seen and examined on the medical floor she is alert and oriented 3 in no apparent distress she is complaining of chest discomfort and shortness of breath otherwise no complaints at this time there is no fever or chills no headache or dizziness no cough no nausea or vomiting no abdominal pain no diarrhea no burning with urination no frequency or urgency and no hematuria On 11/29/2019 patient is alert and oriented. Patient is resting comfortably in bed. Patient is complaining of some shortness of breath. Patient has been transitioned to oral Lasix per cardiology will medically manage and monitor for the next 24-48 hours. Discussed case with GI team no intervention at this time. Patient denies chest pain. Patient denies nausea vomiting or diarrhea. Patient denies any urinary burning or frequency Objective - Vital Signs Vital signs: Vital Signs Temp 97.4 F L 11/29/19 08:00 Pulse 80 11/29/19 09:53 Resp 24 11/29/19 08:00 BP 131/81 11/29/19 08:00 Pulse Ox 95 11/29/19 09:41 Intake & Output 11/28/19 11/29/19 11/29/19 18:59 06:59 18:59 Intake Total 450 800 Output Total 1150 960 Balance -700 -160 Weight 50.4 kg 48.4 kg Intake: Oral 450 800 Output: Urine 1150 960 Other: Voiding Method Bedside Commode Bedside Commode # Voids 2 - Exam In general patient is alert and oriented 3 she is very hard of hearing HEENT head normocephalic and atraumatic Neck is supple no JVD no goiter no lymphadenopathy Chest exam reveals a few scattered crackles no wheezing Cardiac exam reveals regular heart sounds no gallops no murmurs Abdomen is soft nontender no organomegaly with normal bowel sounds Extremity exam reveals no edema no cyanosis or clubbing Neurological examination reveals no gross focal deficit - Labs CBC & Chem 7: 11/29/19 04:13 11/29/19 04:13 Labs: Abnormal Lab Results - Last 24 Hours (Table) 11/28/19 11/28/19 11/28/19 Range/Units 11:42 15:11 16:53 WBC 10.7 H (3.8-10.6) k/uL RBC 3.47 L (3.80-5.40) m/uL Hgb 8.7 L (11.4-16.0) gm/dL Hct 29.7 L (34.0-46.0) % MCH (25.0-35.0) pg MCHC 29.2 L (31.0-37.0) g/dL RDW 21.4 H (11.5-15.5) % Sodium (137-145) mmol/L Chloride (98-107) mmol/L Carbon Dioxide (22-30) mmol/L BUN (7-17) mg/dL Creatinine (0.52-1.04) mg/dL POC Glucose (mg/dL) 142 H 101 H (75-99) mg/dL Albumin (3.5-5.0) g/dL 11/28/19 11/29/19 11/29/19 Range/Units 20:06 04:13 04:13 WBC (3.8-10.6) k/uL RBC 3.61 L (3.80-5.40) m/uL Hgb 8.6 L (11.4-16.0) gm/dL Hct 30.1 L (34.0-46.0) % MCH 23.8 L (25.0-35.0) pg MCHC 28.6 L (31.0-37.0) g/dL RDW 21.3 H (11.5-15.5) % Sodium 136 L (137-145) mmol/L Chloride 97 L (98-107) mmol/L Carbon Dioxide 33 H (22-30) mmol/L BUN 43 H (7-17) mg/dL Creatinine 1.15 H (0.52-1.04) mg/dL POC Glucose (mg/dL) 134 H (75-99) mg/dL Albumin 3.4 L (3.5-5.0) g/dL 11/29/19 Range/Units 06:49 WBC (3.8-10.6) k/uL RBC (3.80-5.40) m/uL Hgb (11.4-16.0) gm/dL Hct (34.0-46.0) % MCH (25.0-35.0) pg MCHC (31.0-37.0) g/dL RDW (11.5-15.5) % Sodium (137-145) mmol/L Chloride (98-107) mmol/L Carbon Dioxide (22-30) mmol/L BUN (7-17) mg/dL Creatinine (0.52-1.04) mg/dL POC Glucose (mg/dL) 102 H (75-99) mg/dL Albumin (3.5-5.0) g/dL Microbiology - Last 24 Hours (Table) 11/26/19 22:33 Blood Culture - Preliminary Blood No Growth after 48 hours Assessment and Plan Assessment: #1 acute on chronic diastolic congestive heart failure exacerbation. Patient has been transitioned to oral Lasix #2 acute non-ST elevation myocardial infarction. Per cardiology they do not believe that patient is candidate for aggressive workup will maximize medical t herapy at this time #3 chronic kidney disease, stage III #4 hyperkalemia. Resolved #5 known history of coronary artery disease with previous angioplasty and stent placement in the past last cardiac catheterization 2017 #6 underlying history of hypertension #7 underlying history of hyperlipidemia maintained on Lipitor #8 underlying history of insulin-dependent diabetes Mellitus. #9. History of GI bleed and anemia. Patient was recently hospitalized and anticoagulation was DC'd. GI services are following. No plans for endoscopic evaluation at this time continue to monitor hemoglobin closely. Hemoglobin 8.6 DVT prophylaxis SCDs. GI prophylaxis Protonix I performed an examination of the patient and discussed their management with the Nurse Practitioner. I have reviewed the Nurse Practitioner's notes and agree with the documented findings and plan of care
[2019-11-29 11:53] LABS: Glucose,Whole Blood 112 mg/dL (75-99)
[2019-11-29] MEDS: MONTELUKAST 10 MG TAB PO SCH (12:19)
[2019-11-29] MEDS: INSULIN DETEMIR (LEVEMIR) 100 UNIT/ML SYR SQ SCH (14:23)
[2019-11-29 14:25] LABS: Glucose,Whole Blood 151 mg/dL (75-99)
[2019-11-29 16:43] LABS: Glucose,Whole Blood 160 mg/dL (75-99)
[2019-11-29 20:23] LABS: Glucose,Whole Blood 96 mg/dL (75-99)
[2019-11-29] MEDS: HYDROcodone/APAP 5-325MG 1 EACH TAB PO PRN (22:16)
[2019-11-29] MEDS: ATORVASTATIN 40 MG TAB PO SCH (22:17)
[2019-11-29] MEDS: SENNOSIDES 8.6 MG TAB PO SCH (22:18)
[2019-11-29] MEDS ORDERED: DILTIAZEM DRIP BOLUS FROM BAG 1 MG SOLN IV ONE (22:47)
--- NOTE | 2019-11-29 22:47 | PN ---
PROGRESS NOTE DATE OF SERVICE: 11/29/2019 The patient is an 89-year-old pleasant white female with history of congestive heart failure, hypertension, diabetes mellitus, admitted to hospital with exacerbation of congestive heart failure and worsening shortness of breath. While in the hospital, was noted to have anemia and iron indices consistent with iron deficiency anemia. On presentation, hemoglobin was 7.8 g/dL. Last hospitalization, hemoglobin was 8.2 g/dL. She was seen by Dr. Stone yesterday on consultation and as per discussion with the family, the patient refused to have any endoscopic workup at this time. Presently, no symptoms. PHYSICAL EXAMINATION: Appears comfortable, no apparent distress. VITAL SIGNS: Stable. Blood pressure is 126/70, pulse is 74, temperature 96.6. HEENT examination: Unremarkable. Conjunctivae pink. Sclerae anicteric. Oral cavity, no lesions. NECK: No JVD or lymph node enlargement. CHEST: Clear to auscultation. HEART: Regular rate and rhythm. ABDOMEN: Soft. Minimal tenderness in the epigastric area. Bowel sounds are positive. No organomegaly. EXTREMITIES: No pedal edema. SKIN: No rashes. NEUROLOGIC: Alert and oriented x3. No focal deficits. LABS: WBC 9.3, hemoglobin 8.6, platelets normal. Basic metabolic panel is within normal limits. BUN is 43, creatinine 1.15. Troponin elevated at 2.15. IMPRESSION: 1. Iron deficiency anemia with clinically no evidence of active ongoing bleeding. Hemoglobin since hospitalization has remained stable. The patient has not received any blood transfusions during this hospitalization. Most likely anemia secondary to occult gastrointestinal blood loss but clinically no evidence of active bleeding. 2. Exacerbation of congestive heart failure. 3. Elevated troponin with/acute non ST-segment elevation myocardial infarction. Cardiology following the patient closely. 4. Chronic kidney disease. 5. History of coronary artery disease status post previous angioplasty. RECOMMENDATION: 1. Continue with symptomatic and supportive care. 2. No plans on any endoscopic intervention at the present time, given her overall medical condition. 3. Monitor CBC on a daily basis. 4. We will follow a consultation. SHERRON / ROSEMARY: [id number] /
[2019-11-29] MEDS ORDERED: DILTIAZEM 125 MG in SODIUM CHLORIDE 0.9% 100 ML IV SCH (23:00)
[2019-11-29] MEDS ORDERED: DIGOXIN 250 MCG/ML 2 ML AMP IVP ONE (23:18)
[2019-11-30 03:40] LABS: Glucose,Whole Blood 94 mg/dL (75-99)
[2019-11-30] MEDS ORDERED: DIGOXIN 250 MCG/ML 2 ML AMP IVP ONE (06:00)
[2019-11-30 06:05] LABS: Anisocytosis Moderate; HCT 27.7 % (34.0-46.0); HGB 8.5 gm/dL (11.4-16.0); Hypochromasia Marked; MCH 25.5 pg (25.0-35.0); MCHC 30.6 g/dL (31.0-37.0); MCV 83.4 fL (80.0-100.0); Mean Platelet Volume 7.9; Microcytosis Moderate; Platelet Count 439 k/uL (150-450); RBC 3.32 m/uL (3.80-5.40); RDW 21.3 % (11.5-15.5); WBC 7.8 k/uL (3.8-10.6)
[2019-11-30 06:26] LABS: Albumin 2.9 g/dL (3.5-5.0); Calcium 8.7 mg/dL (8.4-10.2); Potassium 4.6 mmol/L (3.5-5.1); Total Bilirubin 0.3 mg/dL (0.2-1.3); Total Protein 6.4 g/dL (6.3-8.2)
[2019-11-30 06:34] LABS: Glucose,Whole Blood 96 mg/dL (75-99)
--- NOTE | 2019-11-30 07:53 | PN ---
PROGRESS NOTE Mrs. Ulloa is an 89-year-old female who presented with symptoms of progressive dyspnea. She has a known history of coronary artery disease and aortic valve disease. Yesterday, she went in atrial fibrillation. She is back in sinus mechanism. She denies any anginal pain. Her breathing has been stable. She was hypotensive when she was in atrial fibrillation with rapid ventricular response. She denies any dizziness or palpitation. She denies any nausea. She continues to be at this time on aspirin 81 mg daily, Lipitor 40 mg daily. She received 2 doses of digoxin. She is on Lasix 40 mg daily, insulin, isosorbide mononitrate 30 mg daily, metoprolol tartrate 100 mg twice a day. PHYSICAL EXAMINATION: Blood pressure 124/60 with the heart rate in the 70s. LUNGS: With decreased air exchange, no wheezes. HEART: Regular rate and rhythm. S1, S2. No S3 with systolic ejection murmur at the base ejection type. No diastolic murmur. No rub. ABDOMEN: Soft, nontender. EXTREMITIES: No significant edema. LAB DATA: Lab data revealed BUN and creatinine 42 and 1.35, hemoglobin of 8.5. IMPRESSION: 1. Symptoms of congestive heart failure with preserved systolic function. 2. Paroxysmal atrial fibrillation back in sinus mechanism. 3. Renal failure. 4. Anemia. 5. Moderate aortic stenosis and moderate severe tricuspid regurgitation. 6. Hyperlipidemia. 7. Diabetes mellitus. RECOMMENDATION: We will continue present therapy. At this time with her anemia and overall status, she is not a candidate for anticoagulation. We will follow her rhythm. Increase her activity. I would not recommend aggressive cardiac workup in view of her overall status. We will try to transfer to telemetry floor to increase her level of activity gradually. MMODL / IJN: [id number] /
[2019-11-30] MEDS: SYMBICORT 80-4.5 MCG INHALER INHALATION SCH ×2 (07:58→19:01)
[2019-11-30] MEDS: INSULIN ASPART (NovoLOG) 100 UNIT/ML VIAL SQ SCH ×4 (08:38→21:58)
[2019-11-30] MEDS: METOPROLOL TARTRATE 50 MG TAB PO SCH ×2 (08:48→22:02)
[2019-11-30] MEDS: ASPIRIN 81 MG PO SCH (08:48)
[2019-11-30] MEDS: PANTOPRAZOLE 40 MG TABLET PO SCH ×2 (08:48→22:03)
[2019-11-30] MEDS: FUROSEMIDE 40 MG TAB PO SCH (08:48)
[2019-11-30] MEDS: ISOSORBIDE MONONITRATE ER 30 MG TAB.ER.24H PO SCH (08:48)
[2019-11-30] MEDS: OXAZEPAM 15 MG PO SCH ×2 (09:10→22:03)
--- NOTE | 2019-11-30 10:15 | P.PN ---
Subjective Progress Note Date: 11/30/19 89-year-old female patient with multiple medical problems and comorbidities came into the hospital because of worsening shortness of breath. She was diagnosed having an acute non-STEMI. Troponin peaked at 2.1. Her proBNP level was 13,002 100. The chest x-ray showed evidence of cardiomegaly, chronic pulmonary fibrosis and possibly a superimposed pulmonary edema. She is a half-way resident. She is hard of hearing. Her previous echocardiogram showed an ejection fraction of 50-55% along with moderate aortic stenosis a moderate to severe tricuspid regurgitation moderate pulmonary hypertension. She also has history of CAD and prior PCI, proximal atrial fibrillation and she's been within on long-term anticoagulation. That examination is postop because of bleeding complications. Her last cardiac catheterization was in 2018 and the patient had no evidence of any progression of her disease in her LAD or RCA that were stented in the past. Cardiology is currently on the case. She is managed medically and the patient on aspirin and she is receiving Lasix 40 mg by mouth daily. On today's evaluation she is on oxygen at 2 L per minute nasal cannula. She is to have any chest pain. The patient is seen today 11/29/2019 in [facility] is currently awake and alert in no acute distress. Maintaining O2 saturations in the mid 90s on 2 L/m per nasal canula. blood cultures reveal no growth. White count 9.3. Hemoglobin 8.6. Sodium 136. Potassium 4.8. Chloride 97. Creatine 1.5. She is continued on DuoNeb inhalations, symbicort, Singulair. No chest discomfort, no palpitations, no lightheadedness or dizziness. The patient is seen today 11/30/2019 in the intensive care unit. She remains as an overflow patient. Awake,alert, no acute distress. She did have an episode of A. fib with RVR last evening. She was given digoxin IVP 2. Currently back in sinus rhythm. Denies any chest pain. She remains in a negative balance. Follow up chest x-ray pending. She remains on oral diuretics. White count 7.8. Hemoglobin 8.5. Creatinine 1.35. Objective - Vital Signs Vital signs: Vital Signs Temp 97.9 F 11/30/19 08:00 Pulse 74 11/30/19 08:00 Resp 22 11/30/19 08:00 BP 144/58 11/30/19 08:00 Pulse Ox 96 11/30/19 08:00 Intake & Output 11/29/19 11/30/19 11/30/19 18:59 06:59 18:59 Intake Total 240 60 Output Total 750 300 Balance -510 -240 Weight 48.3 kg Intake: IV 60 0.9 @10 60 Oral 240 Output: Urine 750 300 Other: Voiding Method Bedside Commode Bedside Commode Bedside Commode # Bowel Movements 1 - Exam In general Very pleasant 89-year-old female patient, is alert and oriented 3 she is very hard of hearing Head exam was generally normal. There was no scleral icterus or corneal arcus. Mucous membranes were moist. Neck was supple and without jugular venous distension, thyromegaly, or carotid bruits. Carotids were easily palpable bilaterally. There was no adenopathy. HEENT head normocephalic and atraumatic Neck is supple no JVD no goiter no lymphadenopathy Chest exam reveals a few scattered crackles no wheezing, the patient has a thoracic kyphosis Cardiac exam reveals regular heart sounds no gallops positive murmur Abdomen is soft nontender no organomegaly with normal bowel sounds Extremity exam reveals no edema no cyanosis or clubbing Neurological examination reveals no gross focal deficit Examination of the skin revealed no evidence of significant rashes, suspicious appearing nevi or other concerning lesions. - Labs CBC & Chem 7: 11/30/19 05:07 11/30/19 05:07 Labs: Abnormal Lab Results - Last 24 Hours (Table) 11/29/19 11/29/19 11/29/19 Range/Units 11:51 14:22 16:41 RBC (3.80-5.40) m/uL Hgb (11.4-16.0) gm/dL Hct (34.0-46.0) % MCHC (31.0-37.0) g/dL RDW (11.5-15.5) % Carbon Dioxide (22-30) mmol/L BUN (7-17) mg/dL Creatinine (0.52-1.04) mg/dL POC Glucose (mg/dL) 112 H 151 H 160 H (75-99) mg/dL AST (14-36) U/L Albumin (3.5-5.0) g/dL 11/30/19 11/30/19 Range/Units 05:07 05:07 RBC 3.32 L (3.80-5.40) m/uL Hgb 8.5 L (11.4-16.0) gm/dL Hct 27.7 L (34.0-46.0) % MCHC 30.6 L (31.0-37.0) g/dL RDW 21.3 H (11.5-15.5) % Carbon Dioxide 33 H (22-30) mmol/L BUN 42 H (7-17) mg/dL Creatinine 1.35 H (0.52-1.04) mg/dL POC Glucose (mg/dL) (75-99) mg/dL AST 39 H (14-36) U/L Albumin 2.9 L (3.5-5.0) g/dL Microbiology - Last 24 Hours (Table) 11/26/19 22:33 Blood Culture - Preliminary Blood No Growth after 72 hours Assessment and Plan Assessment: 1 acute non-ST segment elevation myocardial infarction in patient with known history of coronary artery disease. Her previous coronary interventions were noted in the last cardiac catheterization was in 2018. The patient has had previous stenting of the LAD and RCA. Currently she is free of any chest pain. 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 8 impaired hearing 9 stage III chronic kidney disease 10 paroxysmal atrial fibrillation currently in sinus medically not a candidate for anticoagulation due to previous of GI bleed 11 acid reflux 12 previous history of aspiration pneumonia 13 previous history of recurrent UTIs 14 previous history of TIA 15 chronic back pain and degenerative arthritis 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 Calixto. Follow-up chest x-ray pending. No plans for interventuin per cardiology. Continue medical therapy. She did have an episode of atrial fibrillation with a rapid ventricular respons IV2. Currently in sinus rhythm. Transfer to selective care unit once a bed is available. We will continue to follow. I, the cosigning physician, performed a history & physical examination of the patient. Lungs sounds few scattered crackles in the posterior bases. Maintaining good O2 saturations in the 90s on 2 L/m per nasal cannula.. I discussed the assessment and plan of care with my nurse practitioner, Nargis Leon. I attest to the above note as dictated by her.
[2019-11-30] MEDS: IPRATROPIUM-ALBUTEROL 3 ML NEB INHALATION PRN (10:57)
--- NOTE | 2019-11-30 11:13 | P.PN ---
Subjective Progress Note Date: 11/30/19 Sonal Pritchard is an 89-year-old female who presented to [facility] emergency room with a chief complaint of worsening shortness of breath she was evaluated in emergency room and preliminary diagnosis was acute congestive heart failure exacerbation she was started on IV Lasix and was admi tted to telemetry floor patient denies any chest pain EKG revealed evidence of left bundle branch block which is chronic first troponin was elevated at 0.8 second troponin was 1.6 patient has known history of chronic renal failure, stage III was creatinine of 1.36. On 11/28/2019 patient was seen and examined on the medical floor she is alert and oriented 3 in no apparent distress she is complaining of chest discomfort and shortness of breath otherwise no complaints at this time there is no fever or chills no headache or dizziness no cough no nausea or vomiting no abdominal pain no diarrhea no burning with urination no frequency or urgency and no hematuria On 11/29/2019 patient is alert and oriented. Patient is resting comfortably in bed. Patient is complaining of some shortness of breath. Patient has been transitioned to oral Lasix per cardiology will medically manage and monitor for the next 24-48 hours. Discussed case with GI team no intervention at this time. Patient denies chest pain. Patient denies nausea vomiting or diarrhea. Patient denies any urinary burning or frequency On 11/30/2019 patient is alert and oriented. Patient had episode with heart rate increasing to 180s last night requiring IV push digoxin due to hypotension. Per nursing staff patient was asymptomatic. At this time patient is resting comfortably in bed. Heart rate has improved. Hemoglobin 8.5. We'll continue to monitor heart rate closely. Cardiology pulmonary and GI services following. Objective - Vital Signs Vital signs: Vital Signs Temp 97.9 F 11/30/19 08:00 Pulse 55 L 11/30/19 11:07 Resp 22 11/30/19 08:00 BP 144/58 11/30/19 08:00 Pulse Ox 96 11/30/19 08:00 Intake & Output 11/29/19 11/30/19 11/30/19 18:59 06:59 18:59 Intake Total 240 60 Output Total 750 300 0 Balance -510 -240 0 Weight 48.3 kg Intake: IV 60 0.9 @10 60 Oral 240 Output: Urine 750 300 0 Other: Voiding Method Bedside Commode Bedside Commode Bedside Commode # Voids 0 # Bowel Movements 1 - Exam In general patient is alert and oriented 3 she is very hard of hearing HEENT head normocephalic and atraumatic Neck is supple no JVD no goiter no lymphadenopathy Chest exam reveals a few scattered crackles no wheezing Cardiac exam reveals regular heart sounds no gallops no murmurs Abdomen is soft nontender no organomegaly with normal bowel sounds Extremity exam reveals no edema no cyanosis or clubbing Neurological examination reveals no gross focal deficit - Labs CBC & Chem 7: 11/30/19 05:07 11/30/19 05:07 Labs: Abnormal Lab Results - Last 24 Hours (Table) 11/29/19 11/29/19 11/29/19 Range/Units 11:51 14:22 16:41 RBC (3.80-5.40) m/uL Hgb (11.4-16.0) gm/dL Hct (34.0-46.0) % MCHC (31.0-37.0) g/dL RDW (11.5-15.5) % Carbon Dioxide (22-30) mmol/L BUN (7-17) mg/dL Creatinine (0.52-1.04) mg/dL POC Glucose (mg/dL) 112 H 151 H 160 H (75-99) mg/dL AST (14-36) U/L Albumin (3.5-5.0) g/dL 11/30/19 11/30/19 Range/Units 05:07 05:07 RBC 3.32 L (3.80-5.40) m/uL Hgb 8.5 L (11.4-16.0) gm/dL Hct 27.7 L (34.0-46.0) % MCHC 30.6 L (31.0-37.0) g/dL RDW 21.3 H (11.5-15.5) % Carbon Dioxide 33 H (22-30) mmol/L BUN 42 H (7-17) mg/dL Creatinine 1.35 H (0.52-1.04) mg/dL POC Glucose (mg/dL) (75-99) mg/dL AST 39 H (14-36) U/L Albumin 2.9 L (3.5-5.0) g/dL Microbiology - Last 24 Hours (Table) 11/26/19 22:33 Blood Culture - Preliminary Blood No Growth after 72 hours Assessment and Plan Assessment: #1 acute on chronic diastolic congestive heart failure exacerbation. Patient has been transitioned to oral Lasix #2 acute non-ST elevation myocardial infarction. Per cardiology they do not believe that patient is candidate for aggressive workup will maximize medical therapy at this time #3 chronic kidney disease, stage III #4 hyperkalemia. Resolved #5 known history of coronary artery disease with previous angioplasty and stent placement in the past last cardiac catheterization 2017 #6 underlying history of hypertension #7 underlying history of hyperlipidemia maintained on Lipitor #8 underlying history of insulin-dependent diabetes Mellitus. #9. History of GI bleed and anemia. Patient was recently hospitalized and anticoagulation was DC'd. GI services are following. No plans for endoscopic evaluation at this time continue to monitor hemoglobin closely. Hemoglobin 8.5 #10. Paroxysmal atrial fibrillation. Patient had episode of heart rate increasing 180s throughout night. Patient was given IV push digoxin. Heart rate has returned to sinus rhythm. Patient not on anticoagulation due to previous episode of GI bleed. Per cardiology patient is not a candidate for anticoagulation DVT prophylaxis SCDs. GI prophylaxis Protonix I performed an examination of the patient and discussed their management with the Nurse Practitioner. I have reviewed the Nurse Practitioner's notes and agree with the documented findings and plan of care
[2019-11-30 11:42] LABS: Glucose,Whole Blood 113 mg/dL (75-99)
[2019-11-30] MEDS: MONTELUKAST 10 MG TAB PO SCH (12:25)
[2019-11-30] MEDS: HYDROcodone/APAP 5-325MG 1 EACH TAB PO PRN ×2 (13:18→22:02)
--- NOTE | 2019-11-30 13:27 | XR ---
EXAMINATION TYPE: XR chest 1V DATE OF EXAM: 11/30/2019 COMPARISON: Prior chest x-ray 11/26/2019 HISTORY: Congestive heart failure TECHNIQUE: Single frontal view of the chest is obtained. FINDINGS: There is a spinal curvature. Overlying cardiac leads are noted. Lung volumes are low. There is improvement in the airspace disease within the lungs. Interstitium remains mildly increased. Patc hy basilar density is present, there is blunting of the right cost phrenic angle. No evident pneumoth orax. Aorta is dense. The cardiac silhouette size is enlarged, size may be accentuated by technique. The osseous structures are intact. IMPRESSION: Improvement in patient's volume status, aeration. Possible subsegmental basilar atelecta tic changes, difficult to exclude small effusion. Additional findings above.
[2019-11-30] MEDS: INSULIN DETEMIR (LEVEMIR) 100 UNIT/ML SYR SQ SCH (15:45)
--- NOTE | 2019-11-30 16:56 | PN ---
PROGRESS NOTE DATE OF DICTATION: 11/30/2019 The patient is an 89-year-old pleasant white female admitted to the hospital with exacerbation of congestive heart failure. She was noted to have iron deficiency anemia with a hemoglobin of 7.8 g/dL. The patient since being in the hospital did not have any GI symptoms. She reports no abdominal pain, reports no nausea, vomiting, no rectal bleeding or melena. Hemoglobin remains stable. Today it is 8 g/dL. PHYSICAL EXAMINATION: Appears comfortable. No apparent distress. VITAL SIGNS: Stable. Blood pressure is 114/60, pulse rate 59, temperature 97.4. HEENT examination unremarkable. Conjunctivae pink. Sclerae anicteric. Oral cavity no lesions. NECK: No JVD or lymph node enlargement. CHEST: Clear to auscultation. HEART: Regular rate and rhythm. ABDOMEN: Soft. Bowel sounds are positive. No organomegaly. EXTREMITIES: No pedal edema. SKIN: No rashes. NEUROLOGIC: Alert and oriented x3. No focal deficits. LABS: WBC 7.8, hemoglobin 8.5, platelets 434. BUN 42, creatinine 1.35. IMPRESSION: 1. Iron deficiency anemia, but clinically no evidence of active bleeding; most likely related to occult gastrointestinal blood loss. Hemoglobin remains stable at 8.5 g/dL. 2. Elevated troponins. 3. Exacerbation of congestive heart failure. RECOMMENDATIONS: Discussed with the patient's daughter who was at the bedside. At this time family does not want her to have any endoscopic intervention. At this time we will sign off. Please call us if needed. Thank you for this consultation. MMODL / IJN: [id number] /
[2019-11-30 17:07] LABS: Glucose,Whole Blood 155 mg/dL (75-99)
[2019-11-30 20:38] LABS: Glucose,Whole Blood 92 mg/dL (75-99)
[2019-11-30] MEDS: ATORVASTATIN 40 MG TAB PO SCH (22:01)
[2019-11-30] MEDS: SENNOSIDES 8.6 MG TAB PO SCH (22:02)
[2019-12-01 05:02] LABS: Anisocytosis Moderate; HCT 28.8 % (34.0-46.0); HGB 8.5 gm/dL (11.4-16.0); Hypochromasia Marked; MCH 24.7 pg (25.0-35.0); MCHC 29.4 g/dL (31.0-37.0); Microcytosis Slight; Platelet Count 538 k/uL (150-450); RBC 3.43 m/uL (3.80-5.40); RDW 20.9 % (11.5-15.5); WBC 7.5 k/uL (3.8-10.6)
[2019-12-01 05:13] LABS: Calcium 8.6 mg/dL (8.4-10.2); Potassium 4.6 mmol/L (3.5-5.1); Total Bilirubin 0.4 mg/dL (0.2-1.3); Total Protein 6.7 g/dL (6.3-8.2)
[2019-12-01 06:59] LABS: Glucose,Whole Blood 83 mg/dL (75-99)
[2019-12-01] MEDS: SYMBICORT 80-4.5 MCG INHALER INHALATION SCH (07:44)
[2019-12-01] MEDS: INSULIN ASPART (NovoLOG) 100 UNIT/ML VIAL SQ SCH ×2 (07:45→13:59)
[2019-12-01] MEDS: OXAZEPAM 15 MG PO SCH (08:39)
[2019-12-01] MEDS: ASPIRIN 81 MG PO SCH (08:39)
[2019-12-01] MEDS: FUROSEMIDE 40 MG TAB PO SCH (08:39)
[2019-12-01] MEDS: ISOSORBIDE MONONITRATE ER 30 MG TAB.ER.24H PO SCH (08:39)
[2019-12-01] MEDS: PANTOPRAZOLE 40 MG TABLET PO SCH (08:39)
[2019-12-01] MEDS: METOPROLOL TARTRATE 50 MG TAB PO SCH (08:39)
[2019-12-01 09:47] VITALS: BMI 20.1
--- NOTE | 2019-12-01 10:00 | P.PN ---
Subjective Progress Note Date: 12/01/19 On 12/01/2019 patient seen in follow-up in the intensive care unit, she is awake and alert, oriented 3, no worsening dyspnea, she states her breathing is improved, patient was able to tolerate ambulation, slight exertional dyspnea with exertion, but no acute distress, she is currently on 2 L of oxygen the pulse ox of 96%, lung sounds are diminished at the bases, no further episodes of arrhythmia, no A. fib, currently in sinus rhythm with occasional PACs, with a rate of 68. Patient is on oral metoprolol 100 mg twice daily, and he was loaded with digoxin. Patient is not a candidate for anticoagulation related to previous history of GI bleeding and chronic anemia. Today's chest x-ray has been reviewed showing improvement in the volume status and aeration. Objective - Vital Signs Vital signs: Vital Signs Temp 97.9 F 12/01/19 08:00 Pulse 64 12/01/19 08:00 Resp 20 12/01/19 08:00 BP 136/49 12/01/19 08:00 Pulse Ox 96 12/01/19 08:00 Intake & Output 11/30/19 12/01/19 12/01/19 18:59 06:59 18:59 Intake Total 120 Output Total 800 175 0 Balance -800 -55 0 Weight 42.2 kg 42.2 kg Intake: Oral 120 Output: Urine 800 175 0 Other: Voiding Method Bedside Commode Bedside Commode Bedside Commode # Voids 1 1 # Bowel Movements 1 - Exam GENERAL EXAM: Alert, very pleasant, 89-year-old frail looking white female, on 2 L of oxygen with a pulse ox of 99%, no acute distress comfortable in no apparent distress. HEAD: Normocephalic/atraumatic. EYES: Normal reaction of pupils, equal size. Conjunctiva pink, sclera white. NOSE: Clear with pink turbinates. THROAT: No erythema or exudates. NECK: No masses, no JVD, no thyroid enlargement, no adenopathy. CHEST: No chest wall deformity. Symmetrical expansion. LUNGS: Equal air entry with no crackles, wheeze, rhonchi or dullness. CVS: Regular rate and rhythm, normal S1 and S2, no gallops, no murmurs, no rubs ABDOMEN: Soft, nontender. No hepatosplenomegaly, normal bowel sounds, no guarding or rigidity. EXTREMITIES: No clubbing, no edema, no cyanosis, 2+ pulses and upper and lower extremities. MUSCULOSKELETAL: Muscle strength and tone normal. SPINE: No scoliosis or deformity SKIN: No rashes CENTRAL NERVOUS SYSTEM: Alert and oriented -3. No focal deficits, tone is no rmal in all 4 extremities. PSYCHIATRIC: Alert and oriented -3. Appropriate affect. Intact judgment and insight. - Labs CBC & Chem 7: 12/01/19 04:42 12/01/19 04:42 Labs: Abnormal Lab Results - Last 24 Hours (Table) 11/30/19 11/30/19 12/01/19 Range/Units 11:41 17:05 04:42 RBC (3.80-5.40) m/uL Hgb (11.4-16.0) gm/dL Hct (34.0-46.0) % MCH (25.0-35.0) pg MCHC (31.0-37.0) g/dL RDW (11.5-15.5) % Plt Count (150-450) k/uL Carbon Dioxide 33 H (22-30) mmol/L BUN 43 H (7-17) mg/dL Creatinine 1.30 H (0.52-1.04) mg/dL POC Glucose (mg/dL) 113 H 155 H (75-99) mg/dL AST 41 H (14-36) U/L Albumin 3.0 L (3.5-5.0) g/dL 12/01/19 Range/Units 04:42 RBC 3.43 L (3.80-5.40) m/uL Hgb 8.5 L (11.4-16.0) gm/dL Hct 28.8 L (34.0-46.0) % MCH 24.7 L (25.0-35.0) pg MCHC 29.4 L (31.0-37.0) g/dL RDW 20.9 H (11.5-15.5) % Plt Count 538 H (150-450) k/uL Carbon Dioxide (22-30) mmol/L BUN (7-17) mg/dL Creatinine (0.52-1.04) mg/dL POC Glucose (mg/dL) (75-99) mg/dL AST (14-36) U/L Albumin (3.5-5.0) g/dL Microbiology - Last 24 Hours (Table) 11/26/19 22:33 Blood Culture - Preliminary Blood No Growth after 96 hours Assessment and Plan Plan: Assessment: 1 acute non-ST segment elevation myocardial infarction in patient with known history of coronary artery disease. Her previous coronary interventions were noted in the last cardiac catheterization was in 2018. The patient has had previous stenting of the LAD and RCA. Currently she is free of any chest pain. 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 8 impaired hearing 9 stage III chronic kidney disease 10 paroxysmal atrial fibrillation currently in sinus medically not a candidate for anticoagulation due to previous of GI bleed 11 acid reflux 12 previous history of aspiration pneumonia 13 previous history of recurrent UTIs 14 previous history of TIA 15 chronic back pain and degenerative arthritis 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 I performed a history & physical examination of the patient and discussed their management with my nurse practitioner, Josephine Winkler. I reviewed the nurse practitioner's note and agree with the documented findings and plan of care. Lung sounds are positive for diminished breath sounds throughout the lung scruggs. The findings and the impression was discussed with the patient. I attest to the documentation by the nurse practitioner. Time with Patient: Less than 30
--- NOTE | 2019-12-01 10:02 | PN ---
PROGRESS NOTE Mrs. Ulloa is an 89-year-old female who presented with symptoms of dyspnea. She has history of coronary artery disease and aortic revealed valve disease. She continues to be in sinus mechanism. She had no further episode of atrial fibrillation. Her breathing has been stable. She denies any dizziness or palpitation. She denies any nausea. She had a history of moderate aortic stenosis. She appears to be awake and alert. She overall appears to be more stable. She has anemia and was evaluated by the GI service and the family elected conservative treatment. She continues to be on aspirin 81 mg daily, Lipitor 40 mg daily, furosemide 40 mg daily, isosorbide mononitrate 30 mg daily, metoprolol tartrate 100 mg twice a day. PHYSICAL EXAMINATION: Blood pressure 122/50 with the heart rate in the 60s. LUNGS: Clear. HEART: Regular rate and rhythm. S1, S2. No S3 with systolic murmur heard at the base ejection type. No diastolic murmur. No rub. ABDOMEN: Soft, nontender. Positive bowel sounds. No organomegaly. EXTREMITIES: No edema. LAB DATA: Lab data revealed a BUN and creatinine 43 and 1.3, which has been stable. Potassium 4.6. Hemoglobin of 8.5. IMPRESSION: 1. Symptoms of progressive dyspnea, stabilizing. 2. History of coronary artery disease, stabilizing. 3. Non ST-segment elevation myocardial infarction. 4. History of aortic valve disease. 5. Chronic kidney disease. 6. One episode of paroxysmal atrial fibrillation. RECOMMENDATION: From the cardiac standpoint, will continue present therapy, increase her level activity. I would expect she should be able to be discharged home soon. I will recommend conservative treatment. MMODL / IJN: [id number] /
[2019-12-01] MEDS: IPRATROPIUM-ALBUTEROL 3 ML NEB INHALATION PRN (10:46)
[2019-12-01] MEDS: MONTELUKAST 10 MG TAB PO SCH (11:37)
[2019-12-01 11:56] LABS: Glucose,Whole Blood 112 mg/dL (75-99)
[2019-12-01 12:30] VITALS: RESP 16; TEMP 97
--- NOTE | 2019-12-01 12:46 | P.DS ---
Providers Date of admission: 11/27/19 00:19 Expected date of discharge: 12/01/19 Attending physician: Dai Bacon Consults: 11/27/19 00:14 Consult Physician Routine Consulting Provider: Tavia Scott Consult Reason/Comments: CHF exacerbation. Elevated Troponin I. Do you want consulting provider notified?: Yes 11/27/19 15:56 Consult Physician Routine Consulting Provider: Fiona Albarran Consult Reason/Comments: dyspnea Do you want consulting provider notified?: Yes 11/28/19 09:05 Consult Physician Routine Consulting Provider: Eyal Stone Consult Reason/Comments: anemia Do you want consulting provider notified?: Yes Primary care physician: Dai Bacon [facility] Course: Discharge diagnosis #1 acute on chronic diastolic congestive heart failure exacerbation. Patient has been transitioned to oral Lasix #2 acute non-ST elevation myocardial infarction. Per cardiology they do not believe that patient is candidate for aggressive workup will maximize medical therapy at this time #3 chronic kidney disease, stage III #4 hyperkalemia. Resolved #5 known history of coronary artery disease with previous angioplasty and stent placement in the past last cardiac catheterization 2017 #6 underlying history of hypertension #7 underlying history of hyperlipidemia maintained on Lipitor #8 underlying history of insulin-dependent diabetes Mellitus. #9. History of GI bleed and anemia. Patient was recently hospitalized and anticoagulation was DC'd. GI services are following. No plans for endoscopic evaluation at this time continue to monitor hemoglobin closely. Hemoglobin 8.5 #10. Paroxysmal atrial fibrillation. Patient had episode of heart rate increasing 180s throughout night. Patient was given IV push digoxin. Heart rate has returned to sinus rhythm. Patient not on anticoagulation due to previous episode of GI bleed. Per cardiology patient is not a candidate for anticoagulation. Patient is currently maintained on Lopressor 100 twice a day Hospital course Sonal Pritchard is an 89-year-old female who presented to [facility] emergency room with a chief complaint of worsening shortness of breath she was evaluated in emergency room and preliminary diagnosis was acute congestive heart failure exacerbation she was started on IV Lasix and was admitted to telemetry floor patient denies any chest pain EKG revealed evidence of left bundle branch block which is chronic first troponin was elevated at 0.8 second troponin was 1.6 patient has known history of chronic renal failure, stage III was creatinine of 1.36. On 11/28/2019 patient was seen and examined on the medical floor she is alert and oriented 3 in no apparent distress she is complaining of chest discomfort and shortness of breath otherwise no complaints at this time there is no fever or chills no headache or dizziness no cough no nausea or vomiting no abdominal pain no diarrhea no burning with urination no frequency or urgency and no hematuria On 11/29/2019 patient is alert and oriented. Patient is resting comfortably in bed. Patient is complaining of some shortness of breath. Patient has been transitioned to oral Lasix per cardiology will medically manage and monitor for the next 24-48 hours. Discussed case with GI team no intervention at this time. Patient denies chest pain. Patient denies nausea vomiting or diarrhea. Patient denies any urinary burning or frequency On 11/30/2019 patient is alert and oriented. Patient had episode with heart rate increasing to 180s last night requiring IV push digoxin due to hypotension. Per nursing staff patient was asymptomatic. At this time patient is resting comfortably in bed. Heart rate has improved. Hemoglobin 8.5. We'll continue to monitor heart rate closely. Cardiology pulmonary and GI services following. On 12/01/2019 patient is alert and oriented. Patient is currently resting comfortably in bed. Patient has been cleared for discharge from pulmonary cardiology and GI services. No further workup inpatient. Patient's heart rate has remained controlled. Patient remains not a candidate for anticoagulation per cardiology and GI services. Patient will return to [facility] for rehab. Patient denies any chest pain or shortness of breath. Patient denies nausea vomiting or diarrhea. Patient denies any urinary burning or frequency I performed an examination of the patient and discussed their management with the Nurse Practitioner. I have reviewed the Nurse Practitioner's notes and agree with the documented findings and plan of care Patient Condition at Discharge: Stable Plan - Discharge Summary Discharge Rx Participant: No New Discharge Prescriptions: Continue Ipratropium-Albuterol Nebulize [Duoneb 0.5 mg-3 mg/3 ml Soln] 3 ml INHALATION RT-TID PRN PRN Reason: Shortness Of Breath Montelukast [Singulair] 10 mg PO DAILY@1200 Fluticasone/Salmeterol [Advair 250-50 Diskus] 1 puff INHALATION RT-BID Metoprolol Tartrate [Lopressor] 100 mg PO BID Sennosides [Senna] 8.6 mg PO HS Atorvastatin [Lipitor] 40 mg PO HS #30 tab Nitroglycerin Sl Tabs [Nitrostat] 0.4 mg SUBLINGUAL Q5M PRN #25 tab PRN Reason: Chest Pain Isosorbide Mononitrate ER [Imdur] 30 mg PO DAILY #30 tab.er.24h Acetaminophen [Tylenol] 1,000 mg PO Q4H PRN PRN Reason: Pain Insulin Detemir [Levemir Flextouch] 8 unit SQ DAILY@1430 Furosemide [Lasix] 40 mg PO DAILY Pantoprazole [Protonix] 40 mg PO BID #60 tablet.dr HYDROcodone/APAP 5-325MG [[place] 5-325] 1 tab PO BID PRN #120 tab PRN Reason: Pain Oxazepam [Serax] 15 mg PO BID #60 capsule Ferrous Sulfate [Feosol] 325 mg PO BID Discharge Medication List Ipratropium-Albuterol Nebulize [Duoneb 0.5 mg-3 mg/3 ml Soln] 3 ml INHALATION RT-TID PRN 08/20/16 [History] Montelukast [Singulair] 10 mg PO DAILY@1200 05/17/17 [History] Fluticasone/Salmeterol [Advair 250-50 Diskus] 1 puff INHALATION RT-BID 05/18/17 [History] Metoprolol Tartrate [Lopressor] 100 mg PO BID 07/18/17 [History] Sennosides [Senna] 8.6 mg PO HS 07/18/17 [History] Atorvastatin [Lipitor] 40 mg PO HS #30 tab 07/23/17 [Rx] Nitroglycerin Sl Tabs [Nitrostat] 0.4 mg SUBLINGUAL Q5M PRN #25 tab 07/23/17 [Rx] Isosorbide Mononitrate ER [Imdur] 30 mg PO DAILY #30 tab.er.24h 09/23/17 [Rx] Acetaminophen [Tylenol] 1,000 mg PO Q4H PRN 05/14/18 [History] Insulin Detemir [Levemir Flextouch] 8 unit SQ DAILY@1430 05/14/18 [History] Furosemide [Lasix] 40 mg PO DAILY 01/08/19 [History] Pantoprazole [Protonix] 40 mg PO BID #60 tablet. 01/13/19 [Rx] HYDROcodone/APAP 5-325MG [[place] 5-325] 1 tab PO BID PRN #120 tab 10/06/19 [Rx] Oxazepam [Serax] 15 mg PO BID #60 capsule 10/06/19 [Rx] Ferrous Sulfate [Feosol] 325 mg PO BID 11/27/19 [History] Follow up Appointment(s)/Referral(s): Xavi Warner MD [STAFF PHYSICIAN] - 1 Week Dai Bacon MD [Primary Care Provider] - 1-2 days Activity/Diet/Wound Care/Special Instructions: Activity as tolerated Diet heart healthy Discharge Disposition: TRANSFER TO SNF/ECF
[2019-12-01] MEDS: INSULIN DETEMIR (LEVEMIR) 100 UNIT/ML SYR SQ SCH (15:23)
[2019-12-01 16:44] VITALS: BP 126/62; PULSE 66
== END 2019-12-01 15:49 | DRG 280 ==
LOC: EC 21:37 → 2SICU 11-27 00:19
PROVIDERS: ADMIT Internal Medicine; ATTEND Internal Medicine
DX: I13.0 Hypertensive heart and chronic kidney disease with heart failure and stage 1 through stage 4 chronic kidney disease, or unspecified chronic kidney disease (principal); I21.4 Non-ST elevation (NSTEMI) myocardial infarction; I50.43 Acute on chronic combined systolic (congestive) and diastolic (congestive) heart failure; K21.9 Gastro-esophageal reflux disease without esophagitis; Z96.1 Presence of intraocular lens; E11.22 Type 2 diabetes mellitus with diabetic chronic kidney disease; E78.5 Hyperlipidemia, unspecified; F32.9 Major depressive disorder, single episode, unspecified; F41.9 Anxiety disorder, unspecified; G89.29 Other chronic pain; H91.90 Unspecified hearing loss, unspecified ear; I27.20 Pulmonary hypertension, unspecified; E87.5 Hyperkalemia; D50.0 Iron deficiency anemia secondary to blood loss (chronic); I25.10 Atherosclerotic heart disease of native coronary artery without angina pectoris; I08.2 Rheumatic disorders of both aortic and tricuspid valves; I48.0 Paroxysmal atrial fibrillation; M13.0 Polyarthritis, unspecified; J84.10 Pulmonary fibrosis, unspecified; N18.3 Chronic kidney disease, stage 3 (moderate); K59.00 Constipation, unspecified; Z79.899 Other long term (current) drug therapy; Z79.82 Long term (current) use of aspirin; I25.2 Old myocardial infarction; Z86.19 Personal history of other infectious and parasitic diseases; Z79.4 Long term (current) use of insulin; Z79.01 Long term (current) use of anticoagulants; Z88.1 Allergy status to other antibiotic agents; Z87.01 Personal history of pneumonia (recurrent); Z88.5 Allergy status to narcotic agent; Z88.0 Allergy status to penicillin; Z88.2 Allergy status to sulfonamides; Z88.8 Allergy status to other drugs, medicaments and biological substances; Z91.048 Other nonmedicinal substance allergy status; Z87.440 Personal history of urinary (tract) infections; Z86.73 Personal history of transient ischemic attack (TIA), and cerebral infarction without residual deficits; Z95.5 Presence of coronary angioplasty implant and graft; Z87.891 Personal history of nicotine dependence; Z82.49 Family history of ischemic heart disease and other diseases of the circulatory system; Z90.49 Acquired absence of other specified parts of digestive tract; Z98.890 Other specified postprocedural states; Z98.49 Cataract extraction status, unspecified eye
CPT/HCPCS: 36415; 51701; 71045; 80053; 83605; 83880; 84484; 85025; 85027; 85610; 85730; 87040; 87502; 94640; 94660; 94760; 96365; 96366; 96375; 99285

== ENCOUNTER 2020-03-27 20:58 | Inpatient (IN) | payer MEDICARE, OTHER ==
[2020-03-27 22:01] LABS: Anisocytosis Slight; Basophils # (A) 0.1 k/uL (0-0.2); Basophils % (A) 1 %; Eosinophils # (A) 0.7 k/uL (0-0.7); Eosinophils % (A) 7 %; HCT 24.9 % (34.0-46.0); HGB 7.2 gm/dL (11.4-16.0); Hypochromasia Marked; Lymphocytes # (A) 1.8 k/uL (1.0-4.8); Lymphocytes % (A) 20 %; MCH 20.7 pg (25.0-35.0); MCV 71.6 fL (80.0-100.0); Mean Platelet Volume 7.6; Microcytosis Moderate; Monocytes # (A) 0.7 k/uL (0-1.0); Monocytes % (A) 7 %; Neutrophils # (A) 5.6 k/uL (1.3-7.7); Neutrophils % (A) 62 %; Platelet Count 339 k/uL (150-450); RBC 3.48 m/uL (3.80-5.40); RDW 17.3 % (11.5-15.5)
[2020-03-27 22:11] LABS: INR 0.9 (<1.2); Partial Thromboplastin Time 23.8 sec (22.0-30.0); Prothrombin Time 9.5 sec (9.0-12.0)
[2020-03-27 22:12] LABS: Albumin 3.8 g/dL (3.5-5.0); Calcium 9.1 mg/dL (8.4-10.2); Potassium 4.9 mmol/L (3.5-5.1); Total Bilirubin 0.5 mg/dL (0.2-1.3); Total Protein 7.4 g/dL (6.3-8.2)
--- NOTE | 2020-03-28 00:12 | ED ---
Recheck HPI - General Source: patient, EMS Mode of arrival: EMS Limitations: no limitations <Kamila Pavon - Last Filed: 03/28/20 03:37> <Star Samuel - Last Filed: 04/07/20 06:16> - General Chief Complaint: Recheck/Abnormal Lab/Rx Stated Complaint: Abnormal Labs Time Seen by Provider: 03/27/20 21:00 - History of Present Illness Initial Comments: 89-year-old female patient presents to the emergency department today for evaluation of low hemoglobin. Patient is currently residing at [facility] on the [facility]. She had labs performed yesterday and hemoglobin was reportedly 6.1. When speaking to the patient and with review of records does seem the patient does have chronic anemia. She states they are unable to find a source of her bleeding. She denies any hematochezia, melena, or hematemesis. Denies any hematuria. States that she feels generally weak and tired. She denies any dizziness. She denies any chest pain or shortness of breath. Patient denies any recent rash, fever, chills, cough, abdominal pain, nausea, vomiting, diarrhea, constipation, back pain, numbness, tingling, dysuria, urinary urgency, urinary frequency, headache, visual changes, or any other complaints. (Kamila Pavon) - Related Data Home Medications Medication Instructions Recorded Confirmed Montelukast [Singulair] 10 mg PO HS@209905/17/17 03/27/20 Fluticasone/Salmeterol [Advair 1 puff INHALATION RT-BID@0900,209905/18/1703/11 250-50 Diskus] Metoprolol Tartrate [Lopressor] 100 mg PO BID@0900,209907/18/17 03/27/20 Sennosides [Senna] 8.6 mg PO DAILY@0900 07/18/17 03/27/20 Acetaminophen [Tylenol] 1,000 mg PO Q4H PRN 05/14/18 03/27/20 Ferrous Sulfate [Feosol] 325 mg PO BID@0900,1700 11/27/19 03/27/20 Atorvastatin [Lipitor] 40 mg PO HS@2100 03/27/20 03/27/20 Bisacodyl [Dulcolax] 10 mg RECTAL Q72H PRN 03/27/20 03/27/20 Furosemide [Lasix] 40 mg PO DAILY@0903/27/20 03/27/20 Insulin Glargine,Hum.rec.anlog 8 unit SQ HS@209903/27/20 03/27/20 [Lantus Solostar] Isosorbide Mononitrate ER [Imdur] 30 mg PO DAILY@0903/27/20 03/27/20 Oxazepam [Serax] 15 mg PO BID@0900,209903/27/20 03/27/20 Pantoprazole [Protonix] 40 mg PO BID@0900,209903/27/20 03/27/20 Tiotropium [place] [Spiriva] 1 cap INHALATION RT-DAILY@169903/27/20 03/27/20 Previous Rx's Medication Instructions Recorded Nitroglycerin Sl Tabs [Nitrostat] 0.4 mg SUBLINGUAL Q5M PRN #25 tab 07/23/17 HYDROcodone/APAP 5-325MG [[place] 1 tab PO BID PRN #120 tab 10/06/19 5-325] Allergies Allergy/AdvReac Type Severity Reaction Status Date / Time adhesive tape Allergy Rash/Hives Verified 03/27/20 22:05 amoxicillin trihydrate Allergy Unknown Verified 03/27/20 22:05 [From Augmentin] clindamycin HCl Allergy Unknown Verified 03/27/20 22:05 [From Cleocin] clindamycin palmitate HCl Allergy Unknown Verified 03/27/20 22:05 [From Cleocin] clindamycin phosphate Allergy Unknown Verified 03/27/20 22:05 [From Cleocin] codeine Allergy Unknown Verified 03/27/20 22:05 nitrofurantoin Allergy Unknown Verified 03/27/20 22:05 [From Macrobid] nitrofurantoin Allergy Unknown Verified 03/27/20 22:05 macrocrystalline [From Macrobid] Penicillins Allergy Unknown Verified 03/27/20 22:05 potassium clavulanate Allergy Unknown Verified 03/27/20 22:05 [From Augmentin] prednisone Allergy Unknown Verified 03/27/20 22:05 quinine Allergy Unknown Verified 03/27/20 22:05 Sulfa (Sulfonamide Allergy Unknown Verified 03/27/20 22:05 Antibiotics) sulfamethoxazole Allergy Unknown Verified 03/27/20 22:05 [From Bactrim] trimethoprim [From Bactrim] Allergy Unknown Verified 03/27/20 22:05 lorazepam [From Ativan] AdvReac Confusion Verified 03/27/20 22:05 Review of Systems ROS Other: All systems not noted in ROS Statement are negative. <Kamila Pavon - Last Filed: 03/28/20 03:37> ROS Other: All systems not noted in ROS Statement are negative. <Star Samuel - Last Filed: 04/07/20 06:16> ROS Statement: Those systems with pertinent positive or pertinent negative responses have been documented in the HPI. Past Medical History Past Medical History: Atrial Fibrillation, Coronary Artery Disease (CAD), Chest Pain / Angina, Heart Failure, COPD, CVA/TIA, Diabetes Mellitus, GERD/Reflux, Hearing Disorder / Deafness, Hyperlipidemia, Hypertension, Myocardial Infarction (NM), Osteoarthritis (OA), Pneumonia, Renal Disease, Skin Disorder Additional Past Medical History / Comment(s): IDDM type II, frequent pneumonia, aspiration pneumonia with sepsis, renal insufficiency, recurrent UTIs, TIA x 3, difficulty swallowing-crushes meds and puts them in yogurt-past EGD/dilations, anemia, eczema, "lazy bowel" but pt states anymore she goes from diarrhea to constipation easily, generalized arthritis, chronic back pain, hiatal hernia Last Myocardial Infarction Date:: 1998, 09/21/17 History of Any Multi-Drug Resistant Organisms: VRE Date of last positivie culture/infection: 10/07/17 MDRO Source:: VRE URINE Past Surgical History: Cholecystectomy, Heart Catheterization With Stent Additional Past Surgical History / Comment(s): cataracts w/lens implants, ectopic with one ovary/tube removed, heart caths :04/30/96 stent to rca, 03/18/2000 stent to mid rca, 07/22/17 stent to lad Past Anesthesia/Blood Transfusion Reactions: Previous Problems w/ Anesthesia Additional Past Anesthesia/Blood Transfusion Reaction / Comment(s): difficulty breathing after anesthesia Date of Last Stent Placement:: 06/2017 Past Psychological History: Depression Smoking Status: Former smoker Past Alcohol Use History: None Reported Past Drug Use History: None Reported - Past Family History Father History Unknown: Yes Family Medical History: Myocardial Infarction (NM) Additional Family Medical History / Comment(s): Father had a NM at the age of 50 yrs. He lived to be 75yrs old. Mother History Unknown: Yes Family Medical History: Myocardial Infarction (NM) Additional Family Medical History / Comment(s): Mother of a NM at about age 80yrs. <Kamila Pavon M - Last Filed: 03/28/20 03:37> General Exam Limitations: no limitations General appearance: alert, in no apparent distress, other (This is a well- developed, well-nourished elderly female patient in no acute distress. Vital signs upon presentation are temperature 98.3F, pulse 73, respirations 20, blood pressure 180/78, pulse ox 99% on room air.) Eye exam: Present: normal appearance, PERRL, EOMI. Absent: scleral icterus, conjunctival injection, periorbital swelling ENT exam: Present: normal exam, normal oropharynx, mucous membranes moist Respiratory exam: Present: normal lung sounds bilaterally. Absent: respiratory distress, wheezes, rales, rhonchi, stridor Cardiovascular Exam: Present: regular rate, normal rhythm, normal heart sounds. Absent: systolic murmur, diastolic murmur, rubs, gallop, clicks GI/Abdominal exam: Present: soft, normal bowel sounds. Absent: distended, tenderness, guarding, rebound, rigid Neurological exam: Present: alert, CN II-XII intact. Absent: oriented X3 (Oriented 2) Psychiatric exam: Present: normal affect, normal mood Skin exam: Present: warm, dry, intact, pallor. Absent: rash <DesireeAndre zepedaina M - Last Filed: 03/28/20 03:37> Course Vital Signs 03/27/20 03/27/20 03/27/20 21:11 21:19 22:30 Temperature 98.3 F Pulse Rate 73 83 Pulse Rate [ 75 Business Writer ] Respiratory 20 16 Rate Blood Pressure 180/78 158/72 Blood Pressure [Right Arm] O2 Sat by Pulse 99 100 Oximetry 03/28/20 03/28/20 03/28/20 00:01 00:11 00:21 Temperature 97.5 F L 97.8 F 98.5 F Pulse Rate 75 76 76 Pulse Rate [ Business Writer ] Respiratory 16 17 16 Rate Blood Pressure 172/70 183/87 170/73 Blood Pressure [Right Arm] O2 Sat by Pulse 98 100 100 Oximetry 03/28/20 03/28/20 03/28/20 00:51 01:58 02:20 Temperature 98.7 F 97.8 F Pulse Rate 82 82 91 Pulse Rate [ Business Writer ] Respiratory 17 21 21 Rate Blood Pressure 181/81 176/92 171/90 Blood Pressure [Right Arm] O2 Sat by Pulse 100 100 96 Oximetry 03/28/20 03/28/20 03/28/20 02:48 03:30 04:00 Temperature Pulse Rate 120 H 96 88 Pulse Rate [ Business Writer ] Respiratory 29 H 28 H 26 H Rate Blood Pressure 133/73 122/68 Blood Pressure [Right Arm] O2 Sat by Pulse 94 L 96 96 Oximetry 03/28/20 03/28/20 04:10 04:28 Temperature Pulse Rate 90 Pulse Rate [ 85 Business Writer ] Respiratory 26 H 20 Rate Blood Pressure 115/66 Blood Pressure 123/61 [Right Arm] O2 Sat by Pulse 98 95 Oximetry Medical Decision Making - Lab Data Result diagrams: 03/27/20 21:52 03/27/20 21:52 - EKG Data -: EKG Interpreted by Me - Radiology Data Radiology results: report reviewed, image reviewed <Kamila Pavon - Last Filed: 03/28/20 03:37> - Lab Data Result diagrams: 04/07/20 05:05 04/07/20 05:05 <Star Samuel - Last Filed: 04/07/20 06:16> - Medical Decision Making 89-year-old female patient presents to the emergency department today for evaluation of low hemoglobin. Physical examination does reveal pallor. Patient reports fatigue and weakness. Occult blood sample was obtained and was negative. Labs reviewed and showed decreased hemoglobin is 7.2. There is some renal failure which is consistent with her previous labs. Given patient's symptoms and recent hemoglobin level of 6.1 the plan was to administer one unit of blood and discharge back to [facility] on the [place]. Once the unit of blood was done patient became short of breath and was reporting fullness in her upper abdomen. Symptoms seemed to be more related to fluid overload rather than allergic reaction to the transfusion. Patient initial O2 sat was 96 on 2L NC. She did appear short of breath. No fever. EKG was obtained showed sinus rhythm with a left bundle branch block similar to previous. Chest xray was obtained and showed possible heart failure. BP remained around 170s systolic over 90s diastolic. IV lasix was ordered as well as nitro paste. Patient worsened acutely, O2 saturation dropped to 86% on Nasal cannula and she became very anxious. Dr. Samuel was in to evaluate the patient. We gave doses of IV nitro, morphine, and started bipap. Patient O2 saturation and condition improved. We will start Nitro drip to maintain blood pressure. Dr. Samuel will monitor until transfer to the the floor. (Kamila Pavon) - Lab Data Lab Results 03/27/20 03/27/20 03/27/20 Range/Units 21:25 21:52 21:52 WBC 9.0 (3.8-10.6) k/uL RBC 3.48 L (3.80-5.40) m/uL Hgb 7.2 L (11.4-16.0) gm/dL Hct 24.9 L (34.0-46.0) % MCV 71.6 L (80.0-100.0) fL MCH 20.7 L (25.0-35.0) pg MCHC 29.0 L (31.0-37.0) g/dL RDW 17.3 H (11.5-15.5) % Plt Count 339 (150-450) k/uL Neutrophils % 62 % Lymphocytes % 20 % Monocytes % 7 % Eosinophils % 7 % Basophils % 1 % Neutrophils # 5.6 (1.3-7.7) k/uL Lymphocytes # 1.8 (1.0-4.8) k/uL Monocytes # 0.7 (0-1.0) k/uL Eosinophils # 0.7 (0-0.7) k/uL Basophils # 0.1 (0-0.2) k/uL Hypochromasia Marked Anisocytosis Slight Microcytosis Moderate PT 9.5 (9.0-12.0) sec INR 0.9 (<1.2) APTT 23.8 (22.0-30.0) sec Sodium (137-145) mmol/L Potassium (3.5-5.1) mmol/L Chloride (98-107) mmol/L Carbon Dioxide (22-30) mmol/L Anion Gap mmol/L BUN (7-17) mg/dL Creatinine (0.52-1.04) mg/dL Est GFR (CKD-EPI)AfAm (>60 ml/min/1.73 sqM) Est GFR (CKD-EPI)NonAf (>60 ml/min/1.73 sqM) Glucose (74-99) mg/dL Calcium (8.4-10.2) mg/dL Total Bilirubin (0.2-1.3) mg/dL AST (14-36) U/L ALT (4-34) U/L Alkaline Phosphatase (38-126) U/L Total Protein (6.3-8.2) g/dL Albumin (3.5-5.0) g/dL Stool Occult Blood Negative (Negative) Coronavirus (PCR) (Not Detected) Blood Type Blood Type Recheck Bld Type Recheck Status Antibody Screen Crossmatch Tx Rx Implicated Unit 1 Reaction Clerical Check Pre-Trans Blood Type Pre-Trans Spec Appearnc Pre-Trans ORION IgG Pre-Trans ORION Poly Post-Trans Blood Type Post-Trans Spec Appear Post-Trans ORION IgG Post-Trans ORION Poly Reaction Pathol Review Spec Expiration Date 03/27/20 03/27/20 03/28/20 Range/Units 21:52 21:52 03:44 WBC (3.8-10.6) k/uL RBC (3.80-5.40) m/uL Hgb (11.4-16.0) gm/dL Hct (34.0-46.0) % MCV (80.0-100.0) fL MCH (25.0-35.0) pg MCHC (31.0-37.0) g/dL RDW (11.5-15.5) % Plt Count (150-450) k/uL Neutrophils % % Lymphocytes % % Monocytes % % Eosinophils % % Basophils % % Neutrophils # (1.3-7.7) k/uL Lymphocytes # (1.0-4.8) k/uL Monocytes # (0-1.0) k/uL Eosinophils # (0-0.7) k/uL Basophils # (0-0.2) k/uL Hypochromasia Anisocytosis Microcytosis PT (9.0-12.0) sec INR (<1.2) APTT (22.0-30.0) sec Sodium 136 L (137-145) mmol/L Potassium 4.9 (3.5-5.1) mmol/L Chloride 96 L (98-107) mmol/L Carbon Dioxide 33 H (22-30) mmol/L Anion Gap 7 mmol/L BUN 46 H (7-17) mg/dL Creatinine 1.50 H (0.52-1.04) mg/dL Est GFR (CKD-EPI)AfAm 36 (>60 ml/min/1.73 sqM) Est GFR (CKD-EPI)NonAf 31 (>60 ml/min/1.73 sqM) Glucose 122 H (74-99) mg/dL Calcium 9.1 (8.4-10.2) mg/dL Total Bilirubin 0.5 (0.2-1.3) mg/dL AST 26 (14-36) U/L ALT 10 (4-34) U/L Alkaline Phosphatase 105 (38-126) U/L Total Protein 7.4 (6.3-8.2) g/dL Albumin 3.8 (3.5-5.0) g/dL Stool Occult Blood (Negative) Coronavirus (PCR) Not Detected (Not Detected) Blood Type O Positive Blood Type Recheck O Pos Bld Type Recheck Status No Antibody Screen NEGATIVE Crossmatch See Detail Tx Rx Implicated Unit 1 Reaction Clerical Check Pre-Trans Blood Type Pre-Trans Spec Appearnc Pre-Trans ORION IgG Pre-Trans ORION Poly Post-Trans Blood Type Post-Trans Spec Appear Post-Trans ORION IgG Post-Trans ORION Poly Reaction Pathol Review Spec Expiration Date 03/30/2020 - 235103/28/20 Range/Units 03:44 WBC (3.8-10.6) k/uL RBC (3.80-5.40) m/uL Hgb (11.4-16.0) gm/dL Hct (34.0-46.0) % MCV (80.0-100.0) fL MCH (25.0-35.0) pg MCHC (31.0-37.0) g/dL RDW (11.5-15.5) % Plt Count (150-450) k/uL Neutrophils % % Lymphocytes % % Monocytes % % Eosinophils % % Basophils % % Neutrophils # (1.3-7.7) k/uL Lymphocytes # (1.0-4.8) k/uL Monocytes # (0-1.0) k/uL Eosinophils # (0-0.7) k/uL Basophils # (0-0.2) k/uL Hypochromasia Anisocytosis Microcytosis PT (9.0-12.0) sec INR (<1.2) APTT (22.0-30.0) sec Sodium (137-145) mmol/L Potassium (3.5-5.1) mmol/L Chloride (98-107) mmol/L Carbon Dioxide (22-30) mmol/L Anion Gap mmol/L BUN (7-17) mg/dL Creatinine (0.52-1.04) mg/dL Est GFR (CKD-EPI)AfAm (>60 ml/min/1.73 sqM) Est GFR (CKD-EPI)NonAf (>60 ml/min/1.73 sqM) Glucose (74-99) mg/dL Calcium (8.4-10.2) mg/dL Total Bilirubin (0.2-1.3) mg/dL AST (14-36) U/L ALT (4-34) U/L Alkaline Phosphatase (38-126) U/L Total Protein (6.3-8.2) g/dL Albumin (3.5-5.0) g/dL Stool Occult Blood (Negative) Coronavirus (PCR) (Not Detected) Blood Type Blood Type Recheck O Pos Bld Type Recheck Status Antibody Screen Crossmatch Tx Rx Implicated Unit 1 [id number] Reaction Clerical Check Pass Pre-Trans Blood Type O Positive Pre-Trans Spec Appearnc Negative Pre-Trans ORION IgG Negative Pre-Trans ORION Poly Negative Post-Trans Blood Type O Positive Post-Trans Spec Appear Negative Post-Trans ORION IgG Negative Post-Trans ORION Poly Negative Reaction Pathol Review Spec Expiration Date - EKG Data EKG Comments: EKG obtained at 0158 shows normal sinus rhythm with a left bundle branch block, ventricular rate is 83, MT interval 174, QRS duration 134, QTC 44, QTC 474. Results are consistent with previous. (Kamila Pavon) - Radiology Data Two-view x-ray of the chest is obtained. Report is reviewed in its entirety. Impression by Dr. Lilly shows extensive pulmonary fibrosis. There is improved inspiration compared to old exam. I see no pleural fluid suggest heart failure. Heart failure is not excluded however. (Kamila Pavon) Critical Care Time Critical Care Time: Yes (35 minutes) <Star Samuel - Last Filed: 04/07/20 06:16> Disposition Decision to Admit Reason: Admit from EC Decision Date: 03/28/20 Decision Time: 02:41 <Kamila Pavon - Last Filed: 03/28/20 03:37> <Star Samuel - Last Filed: 04/07/20 06:16> Clinical Impression: Symptomatic anemia, Shortness of breath, Pulmonary edema Disposition: ADMITTED IP TO THIS [facility] Condition: Serious
--- NOTE | 2020-03-28 02:33 | XR ---
EXAMINATION TYPE: XR chest 2V DATE OF EXAM: 03/28/2020 COMPARISON: 11/30/2019 HISTORY: Short of breath TECHNIQUE: FINDINGS: There is extensive coarse interstitial infiltrate throughout the lungs. Pulmonary vasculari ty is difficult to evaluate because of the lung disease. Thoracic aorta is atheromatous. There are ch est leads. I see no definite pleural effusion. IMPRESSION: Extensive pulmonary fibrosis. There is improved inspiration compared to old exam. I see n o pleural fluid to suggest heart failure. Heart failure not excluded.
[2020-03-28] MEDS ORDERED: NALOXONE 0.4 MG/ML 1 ML VIAL IV PRN (02:37)
[2020-03-28] MEDS ORDERED: FUROSEMIDE 10 MG/ML 4 ML VIAL IV STA ×2 (02:37→03:31)
[2020-03-28] MEDS ORDERED: ONDANSETRON 4 MG/2 ML VIAL IVP PRN (02:37)
[2020-03-28] MEDS ORDERED: FAMOTIDINE 20 MG/2 ML VIAL IV PRN (02:38)
[2020-03-28] MEDS ORDERED: diphenhydrAMINE 50 MG/ML 1 ML VIAL IVP PRN (02:38)
[2020-03-28] MEDS ORDERED: methylPREDNISolone SOD SUCCI 125 MG/2 ML VIAL IV PRN (02:38)
[2020-03-28] MEDS ORDERED: NITROGLYCERIN OINT 1 INCH/GM PACKET TOPICAL STA (02:40)
[2020-03-28] MEDS ORDERED: MORPHINE SULFATE 4 MG/ML SYRINGE IVP STA (02:53)
[2020-03-28] MEDS ORDERED: WATER IV ONE (03:00)
[2020-03-28] MEDS ORDERED: DEXTROSE IV ONE (03:00)
[2020-03-28] MEDS ORDERED: NITROGLYCERIN IV ONE (03:00)
[2020-03-28] MEDS ORDERED: LORazepam 2 MG/ML INJ IV STA (03:07)
[2020-03-28] MEDS ORDERED: NITROGLYCERIN-D5W PMX 50 MG in DEXTROSE/WATER 1 250ML.BAG IV ONE (03:13)
[2020-03-28 06:06] LABS: Glucose,Whole Blood 173 mg/dL (75-99)
[2020-03-28 06:15] LABS: Anisocytosis Slight; Basophils % (A) 0 %; Eosinophils # (A) 0.1 k/uL (0-0.7); Eosinophils % (A) 1 %; HCT 30.6 % (34.0-46.0); Hypochromasia Marked; Lymphocytes # (A) 1.1 k/uL (1.0-4.8); Lymphocytes % (A) 7 %; MCH 22.7 pg (25.0-35.0); MCHC 29.9 g/dL (31.0-37.0); MCV 76.2 fL (80.0-100.0); Mean Platelet Volume 7.2; Microcytosis Slight; Monocytes # (A) 1.2 k/uL (0-1.0); Monocytes % (A) 7 %; Neutrophils # (A) 14.5 k/uL (1.3-7.7); Neutrophils % (A) 85 %; Platelet Count 349 k/uL (150-450); Poikilocytosis Moderate; RBC 4.02 m/uL (3.80-5.40); RDW 16.9 % (11.5-15.5); WBC 17.2 k/uL (3.8-10.6)
[2020-03-28 06:25] LABS: HGB 9.1 gm/dL (11.4-16.0)
[2020-03-28 11:18] LABS: Reticulocyte % 2.7 % (0.5-2.0)
[2020-03-28 11:19] LABS: Glucose,Whole Blood 139 mg/dL (75-99)
[2020-03-28] MEDS ORDERED: ACETAMINOPHEN TAB 500 MG TAB PO PRN (11:29)
[2020-03-28] MEDS ORDERED: NITROGLYCERIN SL TABS 0.4 MG TAB SUBLINGUAL PRN (11:29)
[2020-03-28] MEDS ORDERED: bisacodyL 10 MG SUPP RECTAL PRN (11:29)
[2020-03-28 16:31] LABS: Glucose,Whole Blood 155 mg/dL (75-99)
--- NOTE | 2020-03-28 16:38 | P.CONS ---
History of Present Illness - Reason for Consult Consult date: 03/28/20 anemia Requesting physician: Dai Bacon - Chief Complaint weakness - History of Present Illness Ms. Chapman is a very pleasant 89-year-old female who is significantly hard of hearing, she thinks that she has been told before that she is anemic, she does know she takes oral iron supplement and it does cause her constipation, she denied any other side effects, not aware of any blood in the stool, states she will have some bright red blood if she is constipated and has to disimpact herself, no other bleeding to report. She is having some right-sided abdominal discomfort, she's had this before but it has went away. She feels better since admit, she does consume protein supplement drink. Review of Systems 10 point ROS is as stated in HPI Past Medical History Past Medical History: Atrial Fibrillation, Coronary Artery Disease (CAD), Chest Pain / Angina, Heart Failure, COPD, CVA/TIA, Diabetes Mellitus, GERD/Reflux, Hearing Disorder / Deafness, Hyperlipidemia, Hypertension, Myocardial Infarction ([place]), Osteoarthritis (OA), Pneumonia, Renal Disease, Skin Disorder Additional Past Medical History / Comment(s): IDDM type II, frequent pneumonia, aspiration pneumonia with sepsis, renal insufficiency, recurrent UTIs, TIA x 3, difficulty swallowing-crushes meds and puts them in yogurt-past EGD/dilations, anemia, eczema, "lazy bowel" but pt states anymore she goes from diarrhea to constipation easily, generalized arthritis, chronic back pain, hiatal hernia Last Myocardial Infarction Date:: 09/21/17 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 MDRO Source:: VRE URINE Past Surgical History: Cholecystectomy, Heart Catheterization With Stent Additional Past Surgical History / Comment(s): cataracts w/lens implants, ectopic with one ovary/tube removed, heart caths :04/30/96 stent to rca, 03/18/2000 stent to mid rca, 07/22/17 stent to lad Past Anesthesia/Blood Transfusion Reactions: Previous Problems w/ Anesthesia Additional Past Anesthesia/Blood Transfusion Reaction / Comm: difficulty breathing after anesthesia Date of Last Stent Placement:: 06/2017 Past Psychological History: Depression Additional Psychological History / Comment(s): Pt resides in an apartment at [facility]. She ambulates with a walker. Her daughter is very helpful and is in an apt above her. Pt has chore person from [employer] on aging. She no longer drives, family takes her to [employer]. She goes up to her daughter's for supper and manages her own medication. Smoking Status: Former smoker Past Alcohol Use History: None Reported Additional Past Alcohol Use History / Comment(s): Patient has history of smoking 2 packs per day started smoking at age 16 Past Drug Use History: None Reported - Past Family History Father History Unknown: Yes Family Medical History: Myocardial Infarction ([place]) Additional Family Medical History / Comment(s): Father had a KS at the age of 50 yrs. He lived to be 75yrs old. Mother History Unknown: Yes Family Medical History: Myocardial Infarction ([place]) Additional Family Medical History / Comment(s): Mother of a KS at about age 80yrs. Medications and Allergies Home Medications Medication Instructions Recorded Confirmed Type Montelukast [Singulair] 10 mg PO HS@209905/17/17 03/27/20 History Fluticasone/Salmeterol [Advair 1 puff INHALATION RT-BID@0900,209905/18/17 03/27/20 History 250-50 Diskus] Metoprolol Tartrate [Lopressor] 100 mg PO BID@0900,209907/18/17 03/27/20 Hi story Sennosides [Senna] 8.6 mg PO DAILY@0900 07/18/17 03/27/20 History Nitroglycerin Sl Tabs [Nitrostat] 0.4 mg SUBLINGUAL Q5M PRN #25 tab 07/23/17 03/27/20 Rx Acetaminophen [Tylenol] 1,000 mg PO Q4H PRN 05/14/18 03/27/20 History HYDROcodone/APAP 5-325MG [[place] 1 tab PO BID PRN #120 tab 10/06/19 03/27/20 Rx 5-325] Ferrous Sulfate [Feosol] 325 mg PO BID@0900,1700 11/27/19 03/27/20 History Atorvastatin [Lipitor] 40 mg PO HS@209903/27/20 03/27/20 History Bisacodyl [Dulcolax] 10 mg RECTAL Q72H PRN 03/27/20 03/27/20 History Furosemide [Lasix] 40 mg PO DAILY@89903/27/20 03/27/20 History Insulin Glargine,Hum.rec.anlog 8 unit SQ HS@209903/27/20 03/27/20 History [Lantus Solostar] Isosorbide Mononitrate ER [Imdur] 30 mg PO DAILY@0903/27/20 03/27/20 History Oxazepam [Serax] 15 mg PO BID@09,209903/27/20 03/27/20 History Pantoprazole [Protonix] 40 mg PO BID@0900,209903/27/20 03/27/20 History Tiotropium [place] [Spiriva] 1 cap INHALATION RT-DAILY@169903/27/20 03/27/20 History Allergies Allergy/AdvReac Type Severity Reaction Status Date / Time adhesive tape Allergy Rash/Hives Verified 03/27/20 22:05 amoxicillin trihydrate Allergy Unknown Verified 03/27/20 22:05 [From Augmentin] clindamycin HCl Allergy Unknown Verified 03/27/20 22:05 [From Cleocin] clindamycin palmitate HCl Allergy Unknown Verified 03/27/20 22:05 [From Cleocin] clindamycin phosphate Allergy Unknown Verified 03/27/20 22:05 [From Cleocin] codeine Allergy Unknown Verified 03/27/20 22:05 nitrofurantoin Allergy Unknown Verified 03/27/20 22:05 [From Macrobid] nitrofurantoin Allergy Unknown Verified 03/27/20 22:05 macrocrystalline [From Macrobid] Penicillins Allergy Unknown Verified 03/27/20 22:05 potassium clavulanate Allergy Unknown Verified 03/27/20 22:05 [From Augmentin] prednisone Allergy Unknown Verified 03/27/20 22:05 quinine Allergy Unknown Verified 03/27/20 22:05 Sulfa (Sulfonamide Allergy Unknown Verified 03/27/20 22:05 Antibiotics) sulfamethoxazole Allergy Unknown Verified 03/27/20 22:05 [From Bactrim] trimethoprim [From Bactrim] Allergy Unknown Verified 03/27/20 22:05 lorazepam [From Ativan] AdvReac Confusion Verified 03/27/20 22:05 Physical Exam Vitals: Vital Signs Temp Pulse Pulse Resp BP BP Pulse Ox 03/28/20 12:00 97.6 F 87 18 139/64 100 03/28/20 08:00 97.7 F 63 20 177/75 100 03/28/20 04:28 85 20 123/61 95 03/28/20 04:10 90 26 H 115/66 98 03/28/20 04:00 88 26 H 122/68 96 03/28/20 03:30 96 28 H 133/73 96 03/28/20 02:48 120 H 29 H 94 L 03/28/20 02:20 91 21 171/90 96 03/28/20 01:58 97.8 F 82 21 176/92 100 03/28/20 00:51 98.7 F 82 17 181/81 100 03/28/20 00:21 98.5 F 76 16 170/73 100 03/28/20 00:11 97.8 F 76 17 183/87 100 03/28/20 00:01 97.5 F L 75 16 172/70 98 03/27/20 22:30 83 16 158/72 100 03/27/20 21:19 75 03/27/20 21:11 98.3 F 73 20 180/78 99 Intake and Output 03/27/20 03/28/20 03/28/20 22:59 06:59 14:59 Intake Total 241 240 Balance 241 240 Intake: Oral 240 Blood Product 241 Rc As-1 Unit 241 [id number] Other: # Voids 2 Weight 46.266 kg 48.9 kg 48.9 kg - Constitutional General appearance: average body habitus, cooperative, no acute distress - EENT Eyes: anicteric sclerae, EOMI ENT: hard of hearing, normal oropharynx - Neck Neck: no lymphadenopathy - Respiratory Respiratory: bilateral: CTA - Cardiovascular Rhythm: regular Heart sounds: normal: S1, S2 Abnormal Heart Sounds: systolic murmur leg Peripheral Edema: bilateral: None - Gastrointestinal General gastrointestinal: no absent bowel sounds, no decreased bowel sounds, no distended, no hepatomegaly, no hyperactive bowel sounds, normal bowel sounds, no organomegaly, no rigid, no scaphoid, soft, no splenomegaly, no tenderness, no umbilical hernia, no ventral hernia - Neurologic Neurologic: CNII-XII intact - Musculoskeletal Musculoskeletal: generalized weakness - Psychiatric Psychiatric: A&O x's 3, appropriate affect, intact judgment & insight Results CBC & Chem 7: 03/28/20 05:56 03/27/20 21:52 Labs: Abnormal Lab Results - Last 24 Hours (Table) 03/27/20 03/27/20 03/27/20 Range/Units 21:52 21:52 21:52 WBC (3.8-10.6) k/uL RBC 3.48 L (3.80-5.40) m/uL Hgb 7.2 L (11.4-16.0) gm/dL Hct 24.9 L (34.0-46.0) % MCV 71.6 L (80.0-100.0) fL MCH 20.7 L (25.0-35.0) pg MCHC 29.0 L (31.0-37.0) g/dL RDW 17.3 H (11.5-15.5) % Neutrophils # (1.3-7.7) k/uL Monocytes # (0-1.0) k/uL Retic Count (0.5-2.0) % Sodium 136 L (137-145) mmol/L Chloride 96 L (98-107) mmol/L Carbon Dioxide 33 H (22-30) mmol/L BUN 46 H (7-17) mg/dL Creatinine 1.50 H (0.52-1.04) mg/dL Glucose 122 H (74-99) mg/dL POC Glucose (mg/dL) (75-99) mg/dL Crossmatch See Detail 03/28/20 03/28/20 03/28/20 Range/Units 05:56 05:56 06:04 WBC 17.2 H (3.8-10.6) k/uL RBC (3.80-5.40) m/uL Hgb 9.1 L D (11.4-16.0) gm/dL Hct 30.6 L (34.0-46.0) % MCV 76.2 L (80.0-100.0) fL MCH 22.7 L (25.0-35.0) pg MCHC 29.9 L (31.0-37.0) g/dL RDW 16.9 H (11.5-15.5) % Neutrophils # 14.5 H (1.3-7.7) k/uL Monocytes # 1.2 H (0-1.0) k/uL Retic Count 2.7 H (0.5-2.0) % Sodium (137-145) mmol/L Chloride (98-107) mmol/L Carbon Dioxide (22-30) mmol/L BUN (7-17) mg/dL Creatinine (0.52-1.04) mg/dL Glucose (74-99) mg/dL POC Glucose (mg/dL) 173 H (75-99) mg/dL Crossmatch 03/28/20 Range/Units 11:18 WBC (3.8-10.6) k/uL RBC (3.80-5.40) m/uL Hgb (11.4-16.0) gm/dL Hct (34.0-46.0) % MCV (80.0-100.0) fL MCH (25.0-35.0) pg MCHC (31.0-37.0) g/dL RDW (11.5-15.5) % Neutrophils # (1.3-7.7) k/uL Monocytes # (0-1.0) k/uL Retic Count (0.5-2.0) % Sodium (137-145) mmol/L Chloride (98-107) mmol/L Carbon Dioxide (22-30) mmol/L BUN (7-17) mg/dL Creatinine (0.52-1.04) mg/dL Glucose (74-99) mg/dL POC Glucose (mg/dL) 139 H (75-99) mg/dL Crossmatch Chest x-ray: report reviewed Assessment and Plan (1) Microcytic hypochromic anemia Narrative/Plan: Iron studies ordered. Patient states side effects of constipation with oral iron. We'll supplement patient parenterally while inpatient. Patient was seen by GI back in November for iron deficient anemia. At that time patient and her daughter opted for medical management, no endoscopy. Recommendation would be for parenteral iron administration, hemoglobin monitoring. Chronic kidney disease may be contributing to her anemia. Pending labs to see if EPO supplementation would be appropriate. I believe that EPO can be given at [facility] where patient is currently residing. We will await lab results and give final recommendations. Transfuse for hemoglobin less than 7 or if symptomatic. Current Visit: Yes Status: Chronic Priority: Medium Code(s): D50.9 - IRON DEFICIENCY ANEMIA, UNSPECIFIED SNOMED Code(s): 73800440 (2) Chronic kidney disease Current Visit: Yes Status: Acute Code(s): N18.9 - CHRONIC KIDNEY DISEASE, UNSPECIFIED SNOMED Code(s): 993227206
[2020-03-28 16:59] LABS: % Iron Saturation 28.45 (12.00-45.00)
[2020-03-28] MEDS: FERROUS SULFATE 325 MG TAB PO SCH (17:02)
[2020-03-28 17:19] LABS: Folate, Serum 19.2 ng/mL
--- NOTE | 2020-03-28 17:24 | CONS ---
CONSULTATION DATE OF SERVICE: 03/28/2020 REASON FOR CONSULTATION: Iron deficiency anemia. HISTORY OF PRESENT ILLNESS: The patient is an 89-year-old pleasant white female, came in to the emergency room yesterday was transferred from the nursing facility because of hemoglobin that was 6.1. She came to the emergency room and subsequently had repeat CBC showed a hemoglobin of 7.2 g/dL. The patient however denies any abdominal pain. She reports no nausea, vomiting. No rectal bleeding or melena. Her last hospitalization was in September of this year for the same reason. She has a history of COPD on home O2 and follows with Dr. Cagle on an outpatient basis. In the past, she was recommended EGD and colonoscopy, but because of the underlying cardiorespiratory status, the procedures were not performed. PAST MEDICAL HISTORY: Significant for atrial fibrillation, history of congestive heart failure, coronary artery disease, diabetes mellitus, COPD, CVA, history of MD in the past, degenerative joint disease, recurrent UTI. PAST SURGICAL HISTORY: Cholecystectomy, cardiac catheterization with stent placement, bilateral cataract surgery. SOCIAL HISTORY: Former smoker, no alcohol use. FAMILY HISTORY: Father had coronary artery disease. Mother had coronary artery disease and MD. REVIEW OF SYSTEMS: CARDIOPULMONARY: She does complain of some shortness of breath and remains on home O2. NEUROLOGY: Unremarkable. PSYCHIATRIC Unremarkable. ENT: Vision unremarkable, other than hearing impairment in the left ear. CONSTITUTIONAL: No recent weight loss. No fever, chills, night sweats. GI: As mentioned above. ENDOCRINE: Unremarkable. PHYSICAL EXAMINATION: She appears comfortable, in no apparent distress. VITAL SIGNS: Stable. Blood pressure is 181/81, pulse rate 82 and temperature 98. HEENT: Examination unremarkable, conjunctivae are pink, sclerae nonicteric. Oral cavity no lesions. NECK: No JVD or lymph node enlargement. CHEST: Clear to auscultation. HEART: Regular rate and rhythm. ABDOMEN: Soft, bowel sounds are positive. No organomegaly. EXTREMITIES: No pedal edema. SKIN: No rashes. NEUROLOGIC: Alert and oriented x3. No focal deficits. LABS: From yesterday WBC 9, hemoglobin 7.2, platelets 339, MCV 71.6. INR is normal. BUN and creatinine are 46 and 1.50 respectively. Stool occult blood was negative. Iron studies done in September of this year showed an iron saturation of 4%. Serum ferritin was 19. IMPRESSION: 1. Microcytic hypochromic anemia and iron indices done in September of this year that was consistent with iron deficiency anemia. Clinically, no evidence of active ongoing bleeding. She had a colonoscopy done more than 10 years ago. She received one unit of blood transfusion and hemoglobin today is 9.1 g/dL. Most likely dealing with occult GI blood loss causing severe iron deficiency anemia. 2. Advance COPD on home O2. Follows with Dr. Cagle. 3. History of coronary artery disease. 4. History of diabetes mellitus. 5. History of hypercholesteremia. RECOMMENDATIONS: I had a lengthy discussion with the patient as well as the daughter who is at the bedside, regarding further workup of iron deficiency anemia. I suggested since she had her last colonoscopy was more than 10 years ago, I recommended an EGD and colonoscopy at this time. The patient is concerned about her underlying respiratory status. At this time we will consult Dr. Cagle for pulmonary clearance and see if she is a candidate for endoscopic evaluation. In the meantime, continue with a clear liquid diet. Monitor CBC on a daily basis. Continue with Protonix 40 mg daily and will follow with you closely. Thank you for this consultation. MMODL / IJN: [id number] /
--- NOTE | 2020-03-28 19:21 | P.HPIM ---
History of Present Illness H&P Date: 03/28/20 Sonal Ulloa is an 89-year-old female patient who presented to the emergency department today for evaluation of low hemoglobin. Patient is currently a resident at [facility]. She had labs performed yesterday and hemoglobin was 6.1. she was sent to [facility] emergency room for evaluation , she received 1 unit of red blood cell transfusion in the emergency room and she started developing shortness of breath repeat hemoglobin was 9.1 patient has a known history of iron deficiency anemia . She was admitted to medical floor gastroenterology consultation and hematology consultation were requested for evaluation of chronic anemia . Past Medical History Past Medical History: Atrial Fibrillation, Coronary Artery Disease (CAD), Chest Pain / Angina, Heart Failure, COPD, CVA/TIA, Diabetes Mellitus, GERD/Reflux, Hearing Disorder / Deafness, Hyperlipidemia, Hypertension, Myocardial Infarction ([place]), Osteoarthritis (OA), Pneumonia, Renal Disease, Skin Disorder Additional Past Medical History / Comment(s): IDDM type II, frequent pneumonia, aspiration pneumonia with sepsis, renal insufficiency, recurrent UTIs, TIA x 3, difficulty swallowing-crushes meds and puts them in yogurt-past EGD/dilations, anemia, eczema, "lazy bowel" but pt states anymore she goes from diarrhea to constipation easily, generalized arthritis, chronic back pain, hiatal hernia Last Myocardial Infarction Date:: 1998, 09/21/17 History of Any Multi-Drug Resistant Organisms: VRE Date of last positivie culture/infection: 10/07/17 MDRO Source:: VRE URINE Past Surgical History: Cholecystectomy, Heart Catheterization With Stent Additional Past Surgical History / Comment(s): cataracts w/lens implants, ectopic with one ovary/tube removed, heart caths :04/30/96 stent to rca, 03/18/2000 stent to mid rca, 07/22/17 stent to lad Past Anesthesia/Blood Transfusion Reactions: Previous Problems w/ Anesthesia Additional Past Anesthesia/Blood Transfusion Reaction / Comment(s): difficulty breathing after anesthesia Date of Last Stent Placement:: 06/2017 Past Psychological History: Depression Additional Psychological History / Comment(s): Pt resides in an apartment at [facility]. She ambulates with a walker. Her daughter is very helpful and is in an apt above her. Pt has chore person from [employer] on aging. She no longer drives, family takes her to appts. She goes up to her daughter's for supper and manages her own medication. Smoking Status: Former smoker Past Alcohol Use History: None Reported Additional Past Alcohol Use History / Comment(s): Patient has history of smoking 2 packs per day started smoking at age 16 Past Drug Use History: None Reported - Past Family History Father History Unknown: Yes Family Medical History: Myocardial Infarction (SC) Additional Family Medical History / Comment(s): Father had a SC at the age of 50 yrs. He lived to be 75yrs old. Mother History Unknown: Yes Family Medical History: Myocardial Infarction (SC) Additional Family Medical History / Comment(s): Mother of a SC at about age 80yrs. Medications and Allergies Home Medications Medication Instructions Recorded Confirmed Type Montelukast [Singulair] 10 mg PO HS@209905/17/17 03/27/20 History Fluticasone/Salmeterol [Advair 1 puff INHALATION RT-BID@00,209905/18/17 History 250-50 Diskus] Metoprolol Tartrate [Lopressor] 100 mg PO BID@0900,209907/18/17 03/27/20 History Sennosides [Senna] 8.6 mg PO DAILY@0900 07/18/17 03/27/20 History Nitroglycerin Sl Tabs [Nitrostat] 0.4 mg SUBLINGUAL Q5M PRN #25 tab 07/23/17 03/27/20 Rx Acetaminophen [Tylenol] 1,000 mg PO Q4H PRN 05/14/18 03/27/20 History HYDROcodone/APAP 5-325MG [[place] 1 tab PO BID PRN #120 tab 10/06/19 03/27/20 Rx 5-325] Ferrous Sulfate [Feosol] 325 mg PO BID@0900,1700 11/27/19 03/27/20 History Atorvastatin [Lipitor] 40 mg PO HS@209903/27/20 03/27/20 History Bisacodyl [Dulcolax] 10 mg RECTAL Q72H PRN 03/27/20 03/27/20 History Furosemide [Lasix] 40 mg PO DAILY@0900 03/27/20 03/27/20 History Insulin Glargine,Hum.rec.anlog 8 unit SQ HS@209903/27/20 03/27/20 History [Lantus Solostar] Isosorbide Mononitrate ER [Imdur] 30 mg PO DAILY@0903/27/20 03/27/20 History Oxazepam [Serax] 15 mg PO BID@0900,209903/27/20 03/27/20 History Pantoprazole [Protonix] 40 mg PO BID@0900,209903/27/20 03/27/20 History Tiotropium [place] [Spiriva] 1 cap INHALATION RT-DAILY@17003/27/20 03/27/20 History Allergies Allergy/AdvReac Type Severity Reaction Status Date / Time adhesive tape Allergy Rash/Hives Verified 03/27/20 22:05 amoxicillin trihydrate Allergy Unknown Verified 03/27/20 22:05 [From Augmentin] clindamycin HCl Allergy Unknown Verified 03/27/20 22:05 [From Cleocin] clindamycin palmitate HCl Allergy Unknown Verified 03/27/20 22:05 [From Cleocin] clindamycin phosphate Allergy Unknown Verified 03/27/20 22:05 [From Cleocin] codeine Allergy Unknown Verified 03/27/20 22:05 nitrofurantoin Allergy Unknown Verified 03/27/20 22:05 [From Macrobid] nitrofurantoin Allergy Unknown Verified 03/27/20 22:05 macrocrystalline [From Macrobid] Penicillins Allergy Unknown Verified 03/27/20 22:05 potassium clavulanate Allergy Unknown Verified 03/27/20 22:05 [From Augmentin] prednisone Allergy Unknown Verified 03/27/20 22:05 quinine Allergy Unknown Verified 03/27/20 22:05 Sulfa (Sulfonamide Allergy Unknown Verified 03/27/20 22:05 Antibiotics) sulfamethoxazole Allergy Unknown Verified 03/27/20 22:05 [From Bactrim] trimethoprim [From Bactrim] Allergy Unknown Verified 03/27/20 22:05 lorazepam [From Ativan] AdvReac Confusion Verified 03/27/20 22:05 Physical Exam Vitals: Vital Signs Temp Pulse Pulse Resp BP BP Pulse Ox 03/28/20 08:00 97.7 F 63 20 177/75 100 03/28/20 04:28 85 20 123/61 95 03/28/20 04:10 90 26 H 115/66 98 03/28/20 04:00 88 26 H 122/68 96 03/28/20 03:30 96 28 H 133/73 96 03/28/20 02:48 120 H 29 H 94 L 03/28/20 02:20 91 21 171/90 96 03/28/20 01:58 97.8 F 82 21 176/92 100 03/28/20 00:51 98.7 F 82 17 181/81 100 03/28/20 00:21 98.5 F 76 16 170/73 100 03/28/20 00:11 97.8 F 76 17 183/87 100 03/28/20 00:01 97.5 F L 75 16 172/70 98 03/27/20 22:30 83 16 158/72 100 03/27/20 21:19 75 03/27/20 21:11 98.3 F 73 20 180/78 99 Intake and Output 03/27/20 03/28/20 03/28/20 22:59 06:59 14:59 Intake Total 241 240 Balance 241 240 Intake: Oral 240 Blood Product 241 Rc As-1 Unit 241 [id number] Other: # Voids 2 Weight 46.266 kg 48.9 kg In general patient is alert and oriented 3 in no apparent distress HEENT head normocephalic and atraumatic Neck is supple no JVD no goiter no lymphadenopathy Chest exam reveals a few scattered crackles no wheezing Cardiac exam reveals regular heart sounds no gallops no murmurs Abdomen is soft nontender no organomegaly with normal bowel sounds Extremity exam reveals no edema no cyanosis or clubbing Neurological examination reveals no gross focal deficit Results CBC & Chem 7: 03/28/20 05:56 03/27/20 21:52 Labs: Abnormal Lab Results - Last 24 Hours (Table) 03/27/20 03/27/20 03/27/20 Range/Units 21:52 21:52 21:52 WBC (3.8-10.6) k/uL RBC 3.48 L (3.80-5.40) m/uL Hgb 7.2 L (11.4-16.0) gm/dL Hct 24.9 L (34.0-46.0) % MCV 71.6 L (80.0-100.0) fL MCH 20.7 L (25.0-35.0) pg MCHC 29.0 L (31.0-37.0) g/dL RDW 17.3 H (11.5-15.5) % Neutrophils # (1.3-7.7) k/uL Monocytes # (0-1.0) k/uL Retic Count (0.5-2.0) % Sodium 136 L (137-145) mmol/L Chloride 96 L (98-107) mmol/L Carbon Dioxide 33 H (22-30) mmol/L BUN 46 H (7-17) mg/dL Creatinine 1.50 H (0.52-1.04) mg/dL Glucose 122 H (74-99) mg/dL POC Glucose (mg/dL) (75-99) mg/dL Crossmatch See Detail 03/28/20 03/28/20 03/28/20 Range/Units 05:56 05:56 06:04 WBC 17.2 H (3.8-10.6) k/uL RBC (3.80-5.40) m/uL Hgb 9.1 L D (11.4-16.0) gm/dL Hct 30.6 L (34.0-46.0) % MCV 76.2 L (80.0-100.0) fL MCH 22.7 L (25.0-35.0) pg MCHC 29.9 L (31.0-37.0) g/dL RDW 16.9 H (11.5-15.5) % Neutrophils # 14.5 H (1.3-7.7) k/uL Monocytes # 1.2 H (0-1.0) k/uL Retic Count 2.7 H (0.5-2.0) % Sodium (137-145) mmol/L Chloride (98-107) mmol/L Carbon Dioxide (22-30) mmol/L BUN (7-17) mg/dL Creatinine (0.52-1.04) mg/dL Glucose (74-99) mg/dL POC Glucose (mg/dL) 173 H (75-99) mg/dL Crossmatch 03/28/20 Range/Units 11:18 WBC (3.8-10.6) k/uL RBC (3.80-5.40) m/uL Hgb (11.4-16.0) gm/dL Hct (34.0-46.0) % MCV (80.0-100.0) fL MCH (25.0-35.0) pg MCHC (31.0-37.0) g/dL RDW (11.5-15.5) % Neutrophils # (1.3-7.7) k/uL Monocytes # (0-1.0) k/uL Retic Count (0.5-2.0) % Sodium (137-145) mmol/L Chloride (98-107) mmol/L Carbon Dioxide (22-30) mmol/L BUN (7-17) mg/dL Creatinine (0.52-1.04) mg/dL Glucose (74-99) mg/dL POC Glucose (mg/dL) 139 H (75-99) mg/dL Crossmatch Thrombosis Risk Factor Assmnt - Choose All That Apply Any of the Below Risk Factors Present?: Yes Each Factor Represents 1 point: Abnormal pulmonary function (COPD), Acute SC, Heart failure (<1month) Other Risk Factors: Yes Each Risk Factor Represents 3 Points: Age 75 years or older Other congenital or acquired thrombophilia - If yes, enter type in comment: No Thrombosis Risk Factor Assessment Total Risk Factor Score: 6 Thrombosis Risk Factor Assessment Level: High Risk Assessment and Plan Plan: 1. Anemia, iron deficiency, acute on chronic 2. CKD stage 3 Will consult nephrology for possible outpatient follow-up for Procrit injections 3. fluid overload with shortness of breath after 1 unit red blood cell transfusion 4. Underlying history of hypertension 5. Underlying history of hyperlipidemia 6. Underlying history of COPD 7. Underlying history of insulin-dependent diabetes mellitus At this time patient is admitted to telemetry floor awaiting input from gastroenterology for possible EGD and colonoscopy, awaiting input from hematology Will follow during this admission for medical management
[2020-03-28] MEDS: SYMBICORT 80-4.5 MCG INHALER INHALATION SCH (20:10)
[2020-03-28] MEDS: IPRATROPIUM 0.5 MG/2.5 ML NEBU INHALATION SCH (20:10)
[2020-03-28 20:41] LABS: Glucose,Whole Blood 233 mg/dL (75-99)
[2020-03-28] MEDS: ATORVASTATIN 40 MG TAB PO SCH (20:52)
[2020-03-28] MEDS: PANTOPRAZOLE 40 MG TABLET PO SCH (20:52)
[2020-03-28] MEDS: MONTELUKAST 10 MG TAB PO SCH (20:52)
[2020-03-28] MEDS: METOPROLOL TARTRATE 50 MG TAB PO SCH (20:52)
[2020-03-28] MEDS: HYDROcodone/APAP 5-325MG 1 EACH TAB PO PRN (20:59)
[2020-03-28] MEDS: INSULIN DETEMIR (LEVEMIR) 100 UNIT/ML SYR SQ SCH (21:02)
[2020-03-28] MEDS: LORazepam 1 MG TAB PO SCH (21:09)
[2020-03-28] MEDS: SERAX PO PRN (22:15)
[2020-03-29 06:17] LABS: Glucose,Whole Blood 98 mg/dL (75-99)
[2020-03-29 07:51] LABS: Anisocytosis Slight; Basophils # (A) 0.1 k/uL (0-0.2); Basophils % (A) 1 %; Eosinophils # (A) 0.5 k/uL (0-0.7); Eosinophils % (A) 5 %; HCT 29.4 % (34.0-46.0); HGB 8.5 gm/dL (11.4-16.0); Hypochromasia Marked; Lymphocytes # (A) 1.9 k/uL (1.0-4.8); Lymphocytes % (A) 20 %; MCH 21.5 pg (25.0-35.0); MCHC 28.9 g/dL (31.0-37.0); MCV 74.5 fL (80.0-100.0); Mean Platelet Volume 7.4; Microcytosis Moderate; Monocytes # (A) 0.8 k/uL (0-1.0); Monocytes % (A) 9 %; Neutrophils # (A) 6.1 k/uL (1.3-7.7); Neutrophils % (A) 63 %; Platelet Count 305 k/uL (150-450); Poikilocytosis Slight; RBC 3.95 m/uL (3.80-5.40); RDW 18.3 % (11.5-15.5); WBC 9.7 k/uL (3.8-10.6)
[2020-03-29 08:02] LABS: Albumin 3.4 g/dL (3.5-5.0); Calcium 9.1 mg/dL (8.4-10.2); Potassium 4.7 mmol/L (3.5-5.1); Total Bilirubin 0.8 mg/dL (0.2-1.3); Total Protein 6.8 g/dL (6.3-8.2)
[2020-03-29] MEDS: SYMBICORT 80-4.5 MCG INHALER INHALATION SCH ×2 (08:38→19:54)
[2020-03-29] MEDS: IPRATROPIUM 0.5 MG/2.5 ML NEBU INHALATION SCH ×4 (08:38→19:54)
[2020-03-29] MEDS: METOPROLOL TARTRATE 50 MG TAB PO SCH ×2 (09:19→19:51)
[2020-03-29] MEDS: SENNOSIDES 8.6 MG TAB PO SCH (09:19)
[2020-03-29] MEDS: PANTOPRAZOLE 40 MG TABLET PO SCH ×2 (09:19→19:52)
[2020-03-29] MEDS: FUROSEMIDE 40 MG TAB PO SCH (09:19)
[2020-03-29] MEDS: ISOSORBIDE MONONITRATE ER 30 MG TAB.ER.24H PO SCH (09:20)
[2020-03-29] MEDS: FERROUS SULFATE 325 MG TAB PO SCH ×2 (09:20→12:31)
[2020-03-29] MEDS: LORazepam 1 MG TAB PO SCH ×3 (09:20→20:07)
[2020-03-29] MEDS ORDERED: IPRATROPIUM 0.5 MG/2.5 ML NEBU INHALATION ONE (12:00)
[2020-03-29 12:02] LABS: Glucose,Whole Blood 91 mg/dL (75-99)
[2020-03-29] MEDS ORDERED: bisacodyL 5 MG TABLET.DR PO STA (15:33)
[2020-03-29] MEDS ORDERED: PEG 3350-NA SULF,BICARB,CL/KCL 4,000 ML BOTTLE PO ONE ×2 (15:33→16:30)
--- NOTE | 2020-03-29 15:45 | CDI ---
Documentation Clarification Form Date: 03/29/2020 03:15:52 PM From: Jyoti Charles RN CCDS Admit Date: 03/28/2020 03:54:00 AM Patient Name: Sonal Ulloa Visit Number: [id number] Discharge Date: ATTENTION: The Clinical Documentation Specialists (CDI) and [facility] Coding Staff appreciate your assistance in clarifying documentation. Please respond to the clarification below the line at the bottom and electronically sign. The CDI & [facility] Coding staff will review the response and follow-up if needed. Please note: Queries are made part of the Legal Health Record. If you have any questions, please contact the author of this message via ITS. Dr. Dai Bacon Heart failure is documented in the H&P 03/28 History/Risk Factors: 89-year-old male presents to the ED from ECF for low Hgb 6.1 Medical History of Heart Failure, COPD, HTN and DM type 2. Clinical Indicators: 03/27 VS/Pulse OX: BP: 180/78; HR: 73; Temp: 98.3F; RR: 20; SpO2: 2L nasal cannula 10/04/19 Echocardiogram Results: Borderline concentric left ventricular hypertrophy. Overall left ventricular systolic function is low normal with, an EF between 50-55% The right ventricle is mildly enlarged. 03/28 H&P: Fluid overload with shortness of breath after one-unit red blood cell transfusion. 03/28 Chest X Ray: Extensive pulmonary fibrosis. There is improved inspiration compared to old exam. I see no pleural fluid to suggest heart failure. Treatment: 03/28 Lasix 40mg Iv x 2; 03/29 Lasix 40 mg po daily; Imdur 30 mg po daily; Lopressor 100 mg po BID In your professional opinion, can you please clarify the acuity and type of CHF if known? Chronic Diastolic Heart Failure Acute on Chronic Diastolic Heart Failure Chronic Systolic & Diastolic Heart Failure Acute on Chronic Systolic & Diastolic Heart Failure Unable to Determine Other, please specify Query answered 04/01 by Cardiology consult 04/01 Chronic diastolic heart failure with EF of 50-55% (Last Revision: December 2017) ELIZABETH
--- NOTE | 2020-03-29 16:02 | CDI ---
Documentation Clarification Form Date: 03/29/2020 03:46:28 PM From: Jyoti Charles RN CCDS Admit Date: 03/28/2020 03:54:00 AM Patient Name: Sonal Ulloa Visit Number: [id number] Discharge Date: ATTENTION: The Clinical Documentation Specialists (CDI) and [facility] Coding Staff appreciate your assistance in clarifying documentation. Please respond to the clarification below the line at the bottom and electronically sign. The CDI & [facility] Coding staff will review the response and follow-up if needed. Please note: Queries are made part of the Legal Health Record. If you have any questions, please contact the author of this message via ITS. Dr. Dai Bacon Advanced COPD on home oxygen. Follows with Dr. Cagle. Is documented in GI consult 03/28 History/Risk Factors: 89-year-old male presents to the ED from ECF for low Hgb 6.1 Medical History of Heart Failure, COPD, HTN and DM type 2. Tobacco use: Former smoker Home oxygen: per GI consult Clinical Indicators: Vital signs: 03/28 02:20 BP: 171/90; HR: 91; RR: 21; SpO2: 96% 2L nasal cannula 03/28 02:48 HR: 120; RR: 29; SpO2 94% 15L Non Rebreather 03/28 04:28 HR: 85; RR: 20; SpO2 95% BiPap 03/28 08:00 HR: 63; RR: 20; SpO2 100% 3L nasal cannula 03/28 H&P Chest exam: reveals a few scattered crackles no wheezing Treatment: Breathing tx: 03/28 - Atrovent Nebulized qid; Symbicort Inhaler BID Oxygen via nasal cannula and BiPap In your professional opinion, can you please clarify if these findings signify one of the following conditions? Acute on Chronic Respiratory Failure Chronic Respiratory Failure Other Diagnosis, please specify Unable to determine Specificity: If known, further specify (if known): With hypercapnia? (pCO2 >50 and pH <7.35) With hypoxia? (pO2 <60 mm Hg or SpO2 <91% on room air) Answered in Pulmonology Consult 02/27 Acute on Chronic hypoxemic respiratory failure (Last Query Form Revision: May 2019) ELIZABETH
[2020-03-29] MEDS ORDERED: bisacodyL 5 MG TABLET.DR PO ONE (16:30)
[2020-03-29 17:07] LABS: Glucose,Whole Blood 133 mg/dL (75-99)
--- NOTE | 2020-03-29 17:25 | P.PN ---
Subjective Progress Note Date: 03/29/20 Principal diagnosis: Microcytic, hypochromic anemia In follow-up today patient is stable, she has no significant complaints, no bleeding, denies pain. Objective - Vital Signs Vital signs: Vital Signs Temp 97.7 F 03/29/20 16:00 Pulse 66 03/29/20 16:00 Resp 19 03/29/20 16:00 BP 104/51 03/29/20 16:00 Pulse Ox 100 03/29/20 16:00 Intake & Output 03/28/20 03/29/20 03/29/20 18:59 06:59 18:59 Intake Total 240 440 Output Total 400 200 Balance -160 -200 440 Weight 48.9 kg 48 kg Intake: Oral 240 440 Output: Urine 400 200 Other: Voiding Method Toilet Toilet # Voids 1 3 - Exam Well-developed, adequately nourished 89-year-old female, alert and oriented, significantly hard of hearing, respirations are even and unlabored, no acute distress, no swelling in the legs. - Labs CBC & Chem 7: 03/29/20 07:09 03/29/20 07:09 Labs: Abnormal Lab Results - Last 24 Hours (Table) 03/28/20 03/29/20 03/29/20 Range/Units 20:38 07:09 07:09 Hgb 8.5 L (11.4-16.0) gm/dL Hct 29.4 L (34.0-46.0) % MCV 74.5 L (80.0-100.0) fL MCH 21.5 L (25.0-35.0) pg MCHC 28.9 L (31.0-37.0) g/dL RDW 18.3 H (11.5-15.5) % Carbon Dioxide 33 H (22-30) mmol/L BUN 49 H (7-17) mg/dL Creatinine 1.52 H (0.52-1.04) mg/dL Glucose 70 L (74-99) mg/dL POC Glucose (mg/dL) 233 H (75-99) mg/dL Albumin 3.4 L (3.5-5.0) g/dL Assessment and Plan (1) Microcytic hypochromic anemia Narrative/Plan: Iron studies low normal, one taken as a whole and with patient being on oral iron twice a day, patient is most likely deficient. Patient does have side effects from oral iron so this is been discontinued. Will be provided with parenteral iron while inpatient. My understanding is the patient has agreed to endoscopy, plan for tomorrow. Current Visit: Yes Status: Chronic Priority: Medium Code(s): D50.9 - IRON DEFICIENCY ANEMIA, UNSPECIFIED SNOMED Code(s): 06128078 (2) Chronic kidney disease Narrative/Plan: Erythropoietin supplementation for of chronic kidney disease can be initiated. A orders will have to be sent to the patient's penit[facility] ([facility] to see if it are able to administer there, as I am not sure of patient's ability to get back and forth to physician appointments. Current Visit: Yes Status: Acute Code(s): N18.9 - CHRONIC KIDNEY DISEASE, UNSPECIFIED SNOMED Code(s): 460392811 Plan: Case was discussed with Attending
--- NOTE | 2020-03-29 17:26 | P.PN ---
Subjective Progress Note Date: 03/29/20 Sonal Ulloa is an 89-year-old female patient who presented to the emergency department today for evaluation of low hemoglobin. Patient is currently a resident at [facility] the [facility]. She had labs performed yesterday and hemoglobin was 6.1. she was sent to [facility] emergency room for evaluation , she received 1 unit of red blood cell transfusion in the emergency room and she started developing shortness of breath repeat hemoglobin was 9.1 patient has a known history of iron deficiency anemia . She was admitted to medical floor gastroenterology consultation and hematology consultation were requested for evaluation of chronic anemia . on 03/29/2020 patient was seen and examined on the telemetry floor, case discussed in details with hematology PA, patient is alert and oriented 3 in no apparent distress there is no fever or chills no headache or dizziness no chest pain no shortness of breath no cough no nausea or vomiting no abdominal pain no diarrhea no burning with urination no frequency or urgency and no hematuria Objective - Vital Signs Vital signs: Vital Signs Temp 97.7 F 03/29/20 16:00 Pulse 66 03/29/20 16:00 Resp 19 03/29/20 16:00 BP 104/51 03/29/20 16:00 Pulse Ox 100 03/29/20 16:00 Intake & Output 03/28/20 03/29/20 03/29/20 18:59 06:59 18:59 Intake Total 240 440 Output Total 400 200 Balance -160 -200 440 Weight 48.9 kg 48 kg Intake: Oral 240 440 Output: Urine 400 200 Other: Voiding Method Toilet Toilet # Voids 1 3 - Exam In general patient is alert and oriented 3 in no apparent distress HEENT head normocephalic and atraumatic Neck is supple no JVD no goiter no lymphadenopathy Chest exam reveals a few scattered crackles no wheezing Cardiac exam reveals regular heart sounds no gallops no murmurs Abdomen is soft nontender no organomegaly with normal bowel sounds Extremity exam reveals no edema no cyanosis or clubbing Neurological examination reveals no gross focal deficit - Labs CBC & Chem 7: 03/29/20 07:09 03/29/20 07:09 Labs: Abnormal Lab Results - Last 24 Hours (Table) 03/28/20 03/29/20 03/29/20 Range/Units 20:38 07:09 07:09 Hgb 8.5 L (11.4-16.0) gm/dL Hct 29.4 L (34.0-46.0) % MCV 74.5 L (80.0-100.0) fL MCH 21.5 L (25.0-35.0) pg MCHC 28.9 L (31.0-37.0) g/dL RDW 18.3 H (11.5-15.5) % Carbon Dioxide 33 H (22-30) mmol/L BUN 49 H (7-17) mg/dL Creatinine 1.52 H (0.52-1.04) mg/dL Glucose 70 L (74-99) mg/dL POC Glucose (mg/dL) 233 H (75-99) mg/dL Albumin 3.4 L (3.5-5.0) g/dL Assessment and Plan Plan: 1. Anemia, iron deficiency, acute on chronic 2. CKD stage 3 Will consult nephrology for possible outpatient follow-up for Procrit injections 3. fluid overload with shortness of breath after 1 unit red blood cell trans fusion 4. Underlying history of hypertension 5. Underlying history of hyperlipidemia 6. Underlying history of COPD 7. Underlying history of insulin-dependent diabetes mellitus At this time patient is admitted to telemetry floor awaiting input from gastroenterology for possible EGD and colonoscopy, patient will need outpatient follow-up with hematology for possible IV iron infusion and possible Procrit injections Will follow during this admission for medical management
[2020-03-29] MEDS ORDERED: SODIUM FERRIC GLUCONAT-SUCROSE 125 MG in SODIUM CHLORIDE 0.9% 100 ML IVPB SCH (17:30)
[2020-03-29] MEDS: ATORVASTATIN 40 MG TAB PO SCH (19:51)
[2020-03-29] MEDS: MONTELUKAST 10 MG TAB PO SCH (19:51)
[2020-03-29 20:23] LABS: Glucose,Whole Blood 102 mg/dL (75-99)
[2020-03-29] MEDS: SODIUM FERRIC GLUCONAT-SUCROSE 125 MG in SODIUM CHLORIDE 0.9% 100 ML IVPB SCH (21:03)
[2020-03-29] MEDS: INSULIN DETEMIR (LEVEMIR) 100 UNIT/ML SYR SQ SCH (21:11)
[2020-03-29] MEDS: HYDROcodone/APAP 5-325MG 1 EACH TAB PO PRN (22:17)
--- NOTE | 2020-03-29 22:35 | CONS ---
CONSULTATION DATE OF CONSULTATION: 03/29/2020 REASON FOR CONSULTATION: Dyspnea. HISTORY OF PRESENT ILLNESS: This is a very pleasant 89-year-old female patient who follows with Dr. Bacon as her primary care provider. She has a history of atrial fibrillation, congestive heart failure, coronary artery disease, diabetes mellitus, hearing disorder, hyperlipidemia, hypertension, osteoarthritis, renal disease. She also has a history of extensive pulmonary fibrosis and COPD and follows with Dr. Cagle in our office for the same. She presented here to the emergency room yesterday after being found to have a hemoglobin of 6.1. She is residing at [facility]. She is seen today in consultation on the regular medical floor. She is awake and alert, in no acute distress. She currently denies any worsening shortness of breath, cough or congestion. She is maintaining oxygen saturations in the 90s on optional 2 L/minute nasal cannula. She is on home oxygen at home as well. She had previously been recommended EGD and colonoscopy, but based on her underlying cardiopulmonary status the procedures have not been performed. Her anemia was found to be microcytic hypochromic anemia, and previous iron indices were consistent with iron deficiency anemia. She did receive one unit of packed red blood cells, and her current hemoglobin is 9.1. GI has been consulted. She is on Protonix. PAST MEDICAL HISTORY: Past medical history includes atrial fibrillation, coronary artery disease, congestive heart failure, chronic obstructive pulmonary disease, pulmonary fibrosis, CVA/TIA, diabetes mellitus, GERD, hearing disorder, hyperlipidemia, hypertension, osteoarthritis, renal insufficiency, esophageal strictures with previous dilation. PAST SURGICAL HISTORY: Past surgical history includes cholecystectomy, cardiac catheterization with stent placement, cataract surgery, ectopic with one ovary/tube removed. Heart catheterization with stent to the RCA in 1995 with stent to the mid RCA in 1999 and a stent to the LAD in 2017. SOCIAL HISTORY: The patient is a former smoker. Denies alcohol use. FAMILY HISTORY: Positive for father with coronary artery disease and mother with coronary artery disease and myocardial infarction. REVIEW OF SYSTEMS: Fourteen-point review of systems was conducted; all negative other than as mentioned in the HPI that being positive for anemia from the outpatient setting and dyspnea on exertion. The patient does have advanced hypoxemic respiratory failure, on home oxygen. PHYSICAL EXAMINATION: GENERAL APPEARANCE: This is a very pleasant 89-year-old female patient, awake and alert, in no acute distress, on oxygen to maintain oxygen saturations in the 90s. HEAD: Normocephalic. Sclerae anicteric. NECK: Supple. Trachea midline. LUNGS: Clear anteriorly with coarse crackles in the posterior bases, diminished. HEART: Irregularly irregular. S1, S2. ABDOMEN: Soft, nontender. Bowel sounds are present. Extremities: No significant edema, peripheral pulses are intact. NEUROLOGIC: Alert and oriented x3. No focal deficits. PSYCHIATRIC: No current anxiety or depression. ALLERGIES: ALLERGIES include AUGMENTIN, CLINDAMYCIN, NITROFURANTOIN, PREDNISONE, QUININE, SULFA, ATIVAN. HOME MEDICATIONS: Home medications include Singulair 10 mg at bedtime, Advair Diskus 1 puff b.i.d., Lopressor 100 mg b.i.d., nitroglycerin sublingually p.r.n., ferrous sulfate 325 b.i.d., Lipitor 40 mg at bedtime, Lasix 40 mg daily, insulin 8 units at bedtime, Imdur 30 mg daily, Protonix 40 mg b.i.d., Spiriva 1 inhalation daily. INVESTIGATIONS: Chest x-ray reveals extensive pulmonary fibrosis, improved aeration compared to previous. No acute heart failure. Today's labs reveal WBC 9.7, hemoglobin 8.5, platelets 305. Sodium 140, potassium 4.7, BUN 49, creatinine 1.52. Coronavirus not detected. Stool for occult blood negative. Medications are reviewed. IMPRESSION: 1. Anemia, microcytic hypochromic anemia with iron deficiency anemia. 2. Acute on chronic hypoxemic respiratory failure secondary to extensive pulmonary fibrosis and chronic obstructive pulmonary disease. 3. Coronary artery disease with previous stent placement. 4. Diabetes mellitus. 5. Hypertension. 6. Hyperlipidemia. 7. Hearing disorder. 8. Osteoarthritis. 9. Renal insufficiency. 10.History of transient ischemic attack. 11.History of esophageal stricture with previous dilatation. 12.Chronic back pain. PLAN: The patient was seen and evaluated by Dr. Alba. She is currently stable from the pulmonary standpoint, knowing her overall pulmonary status is quite poor. Continue oxygen and titrate FiO2 as tolerated. Plan is for GI to do possible EGD/colonoscopy if necessary, knowing her risk would be higher based on her pulmonary status. Currently on clear liquids. Continue bronchodilators. We will continue to follow and make further recommendations based on her clinical status. I, the cosigning physician, performed a history and physical examination on the patient. Lung sounds with crackles in the bilateral posterior bases, diminished. Maintaining oxygen saturation in the 90s on 2 L/minute nasal cannula. I discussed the assessment and plan of care with my nurse practitioner, Nargis Leon. I attest to the above consultation as dictated by her. MMCROW / ADALIN: [id number] / MTDD
[2020-03-30] MEDS: SERAX PO PRN ×2 (02:15→22:21)
[2020-03-30 06:03] LABS: Glucose,Whole Blood 98 mg/dL (75-99)
[2020-03-30] MEDS: LACTATED RINGERS 1,000 ML IV SCH ×2 (06:07→20:48)
[2020-03-30 07:06] LABS: Anisocytosis Slight; Basophils % (A) 0 %; Eosinophils # (A) 0.6 k/uL (0-0.7); Eosinophils % (A) 7 %; HCT 26.2 % (34.0-46.0); HGB 7.9 gm/dL (11.4-16.0); Hypochromasia Marked; Lymphocytes # (A) 1.4 k/uL (1.0-4.8); Lymphocytes % (A) 16 %; MCH 22.9 pg (25.0-35.0); MCHC 30.3 g/dL (31.0-37.0); MCV 75.5 fL (80.0-100.0); Mean Platelet Volume 7.1; Microcytosis Slight; Monocytes # (A) 0.7 k/uL (0-1.0); Monocytes % (A) 8 %; Neutrophils # (A) 5.7 k/uL (1.3-7.7); Neutrophils % (A) 67 %; Platelet Count 306 k/uL (150-450); Poikilocytosis Slight; RBC 3.47 m/uL (3.80-5.40); RDW 18.1 % (11.5-15.5); WBC 8.6 k/uL (3.8-10.6)
[2020-03-30 07:32] LABS: Calcium 8.6 mg/dL (8.4-10.2); Potassium 3.8 mmol/L (3.5-5.1); Total Bilirubin 0.9 mg/dL (0.2-1.3); Total Protein 6.2 g/dL (6.3-8.2)
[2020-03-30] MEDS ORDERED: MAGNESIUM CITRATE 296 ML BOTTLE PO ONE ×2 (07:50→19:00)
[2020-03-30] MEDS: IPRATROPIUM 0.5 MG/2.5 ML NEBU INHALATION SCH ×4 (08:43→20:04)
[2020-03-30] MEDS: SYMBICORT 80-4.5 MCG INHALER INHALATION SCH ×2 (08:43→20:05)
[2020-03-30] MEDS: METOPROLOL TARTRATE 50 MG TAB PO SCH ×2 (09:12→20:48)
[2020-03-30] MEDS: SENNOSIDES 8.6 MG TAB PO SCH (09:12)
[2020-03-30] MEDS: FUROSEMIDE 40 MG TAB PO SCH (09:13)
[2020-03-30] MEDS: LORazepam 1 MG TAB PO SCH ×4 (09:13→21:15)
[2020-03-30] MEDS: ISOSORBIDE MONONITRATE ER 30 MG TAB.ER.24H PO SCH (09:13)
[2020-03-30] MEDS: PANTOPRAZOLE 40 MG TABLET PO SCH ×2 (09:13→20:49)
--- NOTE | 2020-03-30 09:25 | P.PN ---
Subjective Progress Note Date: 03/29/20 Objective - Vital Signs Vital signs: Vital Signs Temp 98.1 F 03/29/20 12:29 Pulse 63 03/29/20 12:29 Resp 18 03/29/20 12:29 BP 108/57 03/29/20 12:29 Pulse Ox 100 03/29/20 12:29 Intake & Output 03/28/20 03/29/20 03/29/20 18:59 06:59 18:59 Intake Total 240 440 Output Total 400 200 Balance -160 -200 440 Weight 48.9 kg 48 kg Intake: Oral 240 440 Output: Urine 400 200 Other: Voiding Method Toilet Toilet # Voids 1 - Labs CBC & Chem 7: 03/30/20 06:16 03/30/20 06:16 Labs: Abnormal Lab Results - Last 24 Hours (Table) 03/28/20 03/28/20 03/29/20 Range/Units 16:29 20:38 07:09 Hgb 8.5 L (11.4-16.0) gm/dL Hct 29.4 L (34.0-46.0) % MCV 74.5 L (80.0-100.0) fL MCH 21.5 L (25.0-35.0) pg MCHC 28.9 L (31.0-37.0) g/dL RDW 18.3 H (11.5-15.5) % Carbon Dioxide (22-30) mmol/L BUN (7-17) mg/dL Creatinine (0.52-1.04) mg/dL Glucose (74-99) mg/dL POC Glucose (mg/dL) 155 H 233 H (75-99) mg/dL Albumin (3.5-5.0) g/dL 03/29/20 Range/Units 07:09 Hgb (11.4-16.0) gm/dL Hct (34.0-46.0) % MCV (80.0-100.0) fL MCH (25.0-35.0) pg MCHC (31.0-37.0) g/dL RDW (11.5-15.5) % Carbon Dioxide 33 H (22-30) mmol/L BUN 49 H (7-17) mg/dL Creatinine 1.52 H (0.52-1.04) mg/dL Glucose 70 L (74-99) mg/dL POC Glucose (mg/dL) (75-99) mg/dL Albumin 3.4 L (3.5-5.0) g/dL Assessment and Plan (1) Microcytic hypochromic anemia Narrative/Plan: 89-year-old female presenting with microcytic hypochromic anemia with iron indices performed on prior admission consistent with iron deficiency. Denies any signs or symptoms of bleeding. Remote history of colonoscopy. Current Visit: Yes Status: Chronic Priority: Medium Code(s): D50.9 - IRON DEFICIENCY ANEMIA, UNSPECIFIED SNOMED Code(s): 69948963 Plan: Supportive care Continue to monitor hemoglobin and hematocrit and transfuse as needed Clear liquid diet Nothing by mouth after midnight Follow-up reported Plan for EGD and colonoscopy for further evaluation tomorrow Thank you for allowing us to participate in the care of the patient
--- NOTE | 2020-03-30 11:19 | P.PN ---
Subjective Progress Note Date: 03/30/20 Principal diagnosis: Anemia secondary to microcytic hypochromic anemia with iron deficiency anemia The patient is seen today 03/30/2020 in follow-up on the selective care unit. S he is currently resting comfortably in bed. Awake and alert in no acute distress. Denies any worsening shortness of breath cough or congestion. No noted bleeding. White count 8.6. Hemoglobin 7.9. Sodium 136. Potassium 3.8. Creatinine 1.46. She is status post 1 unit of packed red blood cells this admission. Plan is for EGD/colonoscopy today. Objective - Vital Signs Vital signs: Vital Signs Temp 97.7 F 03/30/20 03:42 Pulse 64 03/30/20 08:56 Resp 18 03/30/20 08:00 BP 161/69 03/30/20 08:00 Pulse Ox 100 03/30/20 08:00 Intake & Output 03/29/20 03/30/20 03/30/20 18:59 06:59 18:59 Intake Total 960 Balance 960 Weight 46.9 kg Intake: Oral 960 Other: Voiding Method Toilet Toilet Toilet # Voids 3 1 # Bowel Movements 1 - Exam GENERAL EXAM: Alert, very hard of hearing 89-year-old female patient on 3 L nasal cannula with O2 saturation 100%, comfortable in no apparent distress. HEAD: Normocephalic. EYES: Normal reaction of pupils, equal size. NOSE: Clear with pink turbinates. THROAT: No erythema or exudates. NECK: No masses, no JVD. CHEST: No chest wall deformity. LUNGS: Equal air entry with no crackles, wheeze, rhonchi or dullness. CVS: S1 and S2 normal with no audible murmur, regular rhythm. ABDOMEN: No hepatosplenomegaly, normal bowel sounds, no guarding or rigidity. SPINE: No scoliosis or deformity SKIN: No rashes CENTRAL NERVOUS SYSTEM: No focal deficits, tone is normal in all 4 extremities. EXTREMITIES: There is no peripheral edema. No clubbing, no cyanosis. Peripheral pulses are intact. - Labs CBC & Chem 7: 03/30/20 06:16 03/30/20 06:16 Labs: Abnormal Lab Results - Last 24 Hours (Table) 03/28/20 03/29/20 03/29/20 Range/Units 05:56 17:02 20:21 RBC (3.80-5.40) m/uL Hgb (11.4-16.0) gm/dL Hct (34.0-46.0) % MCV (80.0-100.0) fL MCH (25.0-35.0) pg MCHC (31.0-37.0) g/dL RDW (11.5-15.5) % Sodium (137-145) mmol/L Chloride (98-107) mmol/L Carbon Dioxide (22-30) mmol/L BUN (7-17) mg/dL Creatinine (0.52-1.04) mg/dL POC Glucose (mg/dL) 133 H 102 H (75-99) mg/dL Total Protein (6.3-8.2) g/dL Albumin (3.5-5.0) g/dL Methylmalonic Acid 2.95 H (<0.40) umol/L 03/30/20 03/30/20 Range/Units 06:16 06:16 RBC 3.47 L (3.80-5.40) m/uL Hgb 7.9 L (11.4-16.0) gm/dL Hct 26.2 L (34.0-46.0) % MCV 75.5 L (80.0-100.0) fL MCH 22.9 L (25.0-35.0) pg MCHC 30.3 L (31.0-37.0) g/dL RDW 18.1 H (11.5-15.5) % Sodium 136 L (137-145) mmol/L Chloride 97 L (98-107) mmol/L Carbon Dioxide 32 H (22-30) mmol/L BUN 48 H (7-17) mg/dL Creatinine 1.46 H (0.52-1.04) mg/dL POC Glucose (mg/dL) (75-99) mg/dL Total Protein 6.2 L (6.3-8.2) g/dL Albumin 3.0 L (3.5-5.0) g/dL Methylmalonic Acid (<0.40) umol/L Assessment and Plan Assessment: 1 Anemia secondary to microcytic hypochromic anemia with iron deficiency anemia, plan is for EGD/colonoscopy today 2 Acute on chronic hypoxemic respiratory failure secondary to extensive pulmonary fibrosis and COPD 3 Coronary artery disease with previous stent placement #4 Diabetes mellitus 5 Hypertension 6 Hyperlipidemia 7 Hearing disorder 8 Osteoarthritis 9 Renal insufficiency 10 History of TIA 11 History of esophageal stricture with previous dilatation 12 Chronic back pain Plan: The patient was seen and evaluated by Dr. Alba She is stable from the pulmonary standpoint Plan is for EGD/colonoscopy today We'll continue to follow make further recommendations based on her clinical status I, the cosigning physician, performed a history & physical examination of the patient. Lungs sounds are clear, diminished. Maintaining good O2 saturations in the 90s on 3 L/m per nasal cannula. I discussed the assessment and plan of care with my nurse practitioner, Nargis Leon. I attest to the above note as dictated by her.
[2020-03-30 11:54] LABS: Glucose,Whole Blood 88 mg/dL (75-99)
[2020-03-30] MEDS ORDERED: PROPOFOL 10 MG/ML 20 ML VIAL IV ONE (12:38)
[2020-03-30] MEDS ORDERED: LIDOCAINE 1% INJ 10MG/ML (20 ML MDV) ONE (12:38)
[2020-03-30] MEDS ORDERED: PHENYLEPHRINE-0.9% NACL SYG 1 MG/10 ML SYRINGE ONE (12:38)
[2020-03-30] MEDS ORDERED: SODIUM CHLORIDE 0.9% 1,000 ML IV ONE (12:58)
--- NOTE | 2020-03-30 13:26 | P.PN ---
Subjective Progress Note Date: 03/30/20 Principal diagnosis: Microcytic, hypochromic anemia In follow-up today patient is stable, no nausea, chest pain, difficulty in breathing or bleeding. Objective - Vital Signs Vital signs: Vital Signs Temp 97.7 F 03/30/20 03:42 Pulse 68 03/30/20 12:09 Resp 18 03/30/20 08:00 BP 161/69 03/30/20 08:00 Pulse Ox 100 03/30/20 08:00 Intake & Output 03/29/20 03/30/20 03/30/20 18:59 06:59 18:59 Intake Total 960 Balance 960 Weight 46.9 kg Intake: Oral 960 Other: Voiding Method Toilet Toilet Toilet # Voids 3 1 # Bowel Movements 1 - Exam Well-developed, adequately nourished 89-year-old female, alert and oriented, significantly hard of hearing, respirations are even and unlabored, no acute distress, no swelling in the legs. - Labs CBC & Chem 7: 03/30/20 06:16 03/30/20 06:16 Labs: Abnormal Lab Results - Last 24 Hours (Table) 03/28/20 03/29/20 03/29/20 Range/Units 05:56 17:02 20:21 RBC (3.80-5.40) m/uL Hgb (11.4-16.0) gm/dL Hct (34.0-46.0) % MCV (80.0-100.0) fL MCH (25.0-35.0) pg MCHC (31.0-37.0) g/dL RDW (11.5-15.5) % Sodium (137-145) mmol/L Chloride (98-107) mmol/L Carbon Dioxide (22-30) mmol/L BUN (7-17) mg/dL Creatinine (0.52-1.04) mg/dL POC Glucose (mg/dL) 133 H 102 H (75-99) mg/dL Total Protein (6.3-8.2) g/dL Albumin (3.5-5.0) g/dL Methylmalonic Acid 2.95 H (<0.40) umol/L 03/30/20 03/30/20 Range/Units 06:16 06:16 RBC 3.47 L (3.80-5.40) m/uL Hgb 7.9 L (11.4-16.0) gm/dL Hct 26.2 L (34.0-46.0) % MCV 75.5 L (80.0-100.0) fL MCH 22.9 L (25.0-35.0) pg MCHC 30.3 L (31.0-37.0) g/dL RDW 18.1 H (11.5-15.5) % Sodium 136 L (137-145) mmol/L Chloride 97 L (98-107) mmol/L Carbon Dioxide 32 H (22-30) mmol/L BUN 48 H (7-17) mg/dL Creatinine 1.46 H (0.52-1.04) mg/dL POC Glucose (mg/dL) (75-99) mg/dL Total Protein 6.2 L (6.3-8.2) g/dL Albumin 3.0 L (3.5-5.0) g/dL Methylmalonic Acid (<0.40) umol/L Assessment and Plan (1) Microcytic hypochromic anemia Narrative/Plan: Oral iron discontinued, parenteral iron ordered. Follow-up with Hematology in 1 month for recheck of iron stores. Patient is being prepped for endoscopy Current Visit: Yes Status: Chronic Priority: Medium Code(s): D50.9 - IRON DEFICIENCY ANEMIA, UNSPECIFIED SNOMED Code(s): 85406343 (2) Chronic kidney disease Narrative/Plan: Erythropoietin supplementation for of chronic kidney disease initiated, first dose of Aranesp 40 mg to be given today. Discussed with Engineering Scientist. It was confirmed that the intermediate is able to administer Aranesp. Orders have been placed in the discharge paperwork for same. Current Visit: Yes Status: Acute Code(s): N18.9 - CHRONIC KIDNEY DISEASE, UNSPECIFIED SNOMED Code(s): 383777866
--- NOTE | 2020-03-30 13:54 | P.PCN ---
Date of Procedure: 03/30/20 Description of Procedure: Brief history: Patient is a pleasant 89-year-old female presenting for recurrent episodes of iron deficiency anemia to the hospital. Remote history of colonoscopy. Procedure performed: Esophagogastroduodenoscopy incomplete/aborted Colonoscopy with biopsies and tattoo Estimated blood loss: Minimal. Preoperative diagnosis: Iron deficiency anemia Anesthesia: MAC Procedure: After informed consent was obtained from the patient was brought into the endos copy unit and IV sedation was administered by anesthesia under continuous monitoring. Initially upper endoscopy was done. The Olympus GF 190 video endoscope was inserted into the mouth and esophagus intubated, however at approximately 15 cm from the incisors a severe benign-appearing stricture was seen. Lumen at this area was approximately 5 mm in diameter. The procedure was aborted at this time. At this time the patient continued to remain sedation. Initial digital rectal examination was normal. Olympus CF 190 video colonoscope was then inserted into the rectum and gradually advanced to the cecum without any difficulty. Careful examination was performed as the scope was gradually being withdrawn. The prep was fair. The cecum, ascending colon, transverse colon, descending colon, sigmoid colon and rectum which was visualized did appear normal. There was however a large mass which appeared to be present in the cecum without the colon occupying approximately 75% of the lumen with multiple biopsies of the mass taken. 5 mL of ink were also used to tattoo the area just distal to the mass. Retroflexion was performed in the rectum and no lesions were noted. Patient tolerated the procedure well. Impression: 1. Proximal esophageal stricture, EGD incomplete/aborted. 2. 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 Prep was fair. Recommendations: Findings of this examination were discussed with the patient. Okay for liquids today. The surgical service was consult to to see the patient. Evaluation for possible hemicolectomy as well as PEG tube placement due to severe proximal esophageal stricture and colonic mass. Await pathology from biopsies. We'll attempt to reach the patient's daughter to discuss case, however she was on the postop area.
[2020-03-30] MEDS: SODIUM FERRIC GLUCONAT-SUCROSE 125 MG in SODIUM CHLORIDE 0.9% 100 ML IVPB SCH (15:04)
[2020-03-30 16:15] LABS: Glucose,Whole Blood 105 mg/dL (75-99)
--- NOTE | 2020-03-30 17:33 | P.PN ---
Subjective Progress Note Date: 03/30/20 Sonal Ulloa is an 89-year-old female patient who presented to the emergency department today for evaluation of low hemoglobin. Patient is currently a resident at [facility] on the [facility]. She had labs performed yesterday and hemoglobin was 6.1. she was sent to [facility] emergency room for evaluation , she received 1 unit of red blood cell transfusion in the emergency room and she started developing shortness of breath repeat hemoglobin was 9.1 patient has a known history of iron deficiency anemia . She was admitted to medical floor gastroenterology consultation and hematology consultation were requested for evaluation of chronic anemia . 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 Patient is otherwise stable there is no fever or chills no headache or dizziness no chest pain no shortness of breath no cough no nausea or vomiting no abdominal pain no diarrhea and no urinary symptoms Objective - Vital Signs Vital signs: Vital Signs Temp 98.0 F 03/30/20 15:03 Pulse 73 03/30/20 15:03 Resp 18 03/30/20 15:03 BP 117/53 03/30/20 15:03 Pulse Ox 99 03/30/20 15:43 Intake & Output 03/29/20 03/30/20 03/30/20 18:59 06:59 18:59 Intake Total 960 600 Balance 960 600 Weight 46.9 kg 46.9 kg Intake: IV 600 Oral 960 Other: Voiding Method Toilet Toilet Toilet # Voids 3 1 # Bowel Movements 1 - Exam In general patient is alert and oriented 3 in no apparent distress HEENT head normocephalic and atraumatic Neck is supple no JVD no goiter no lymphadenopathy Chest exam reveals a few scattered crackles no wheezing Cardiac exam reveals regular heart sounds no gallops no murmurs Abdomen is soft nontender no organomegaly with normal bowel sounds Extremity exam reveals no edema no cyanosis or clubbing Neurological examination reveals no gross focal deficit - Labs CBC & Chem 7: 03/30/20 06:16 03/30/20 06:16 Labs: Abnormal Lab Results - Last 24 Hours (Table) 03/28/20 03/29/20 03/29/20 Range/Units 05:56 17:02 20:21 RBC (3.80-5.40) m/uL Hgb (11.4-16.0) gm/dL Hct (34.0-46.0) % MCV (80.0-100.0) fL MCH (25.0-35.0) pg MCHC (31.0-37.0) g/dL RDW (11.5-15.5) % Sodium (137-145) mmol/L Chloride (98-107) mmol/L Carbon Dioxide (22-30) mmol/L BUN (7-17) mg/dL Creatinine (0.52-1.04) mg/dL POC Glucose (mg/dL) 133 H 102 H (75-99) mg/dL Total Protein (6.3-8.2) g/dL Albumin (3.5-5.0) g/dL Methylmalonic Acid 2.95 H (<0.40) umol/L 03/30/20 03/30/20 03/30/20 Range/Units 06:16 06:16 16:13 RBC 3.47 L (3.80-5.40) m/uL Hgb 7.9 L (11.4-16.0) gm/dL Hct 26.2 L (34.0-46.0) % MCV 75.5 L (80.0-100.0) fL MCH 22.9 L (25.0-35.0) pg MCHC 30.3 L (31.0-37.0) g/dL RDW 18.1 H (11.5-15.5) % Sodium 136 L (137-145) mmol/L Chloride 97 L (98-107) mmol/L Carbon Dioxide 32 H (22-30) mmol/L BUN 48 H (7-17) mg/dL Creatinine 1.46 H (0.52-1.04) mg/dL POC Glucose (mg/dL) 105 H (75-99) mg/dL Total Protein 6.2 L (6.3-8.2) g/dL Albumin 3.0 L (3.5-5.0) g/dL Methylmalonic Acid (<0.40) umol/L Assessment and Plan Plan: 1. Anemia, iron deficiency, acute on chronic 2. CKD stage 3 Will consult nephrology for possible outpatient follow-up for Procrit injections 3. fluid overload with shortness of breath after 1 unit red blood cell transfusion 4. Underlying history of hypertension 5. Underlying history of hyperlipidemia 6. Underlying history of COPD 7. Underlying history of insulin-dependent diabetes mellitus At this time patient is admitted to telemetry floor awaiting input from gastroenterology for possible EGD and colonoscopy, patient will need outpatient follow-up with hematology for possible IV iron infusion and possible Procrit injections Will follow during this admission for medical management
[2020-03-30 19:50] LABS: Glucose,Whole Blood 204 mg/dL (75-99)
[2020-03-30] MEDS: ATORVASTATIN 40 MG TAB PO SCH (20:49)
[2020-03-30] MEDS: INSULIN DETEMIR (LEVEMIR) 100 UNIT/ML SYR SQ SCH (20:49)
[2020-03-30] MEDS: DARBEPOETIN ALFA 40 MCG/0.4 ML SYRINGE SQ SCH (20:49)
[2020-03-30] MEDS: MONTELUKAST 10 MG TAB PO SCH (20:49)
[2020-03-31] MEDS: HYDROcodone/APAP 5-325MG 1 EACH TAB PO PRN ×2 (02:33→23:03)
[2020-03-31 06:19] LABS: Glucose,Whole Blood 76 mg/dL (75-99)
[2020-03-31 07:23] LABS: Anisocytosis Slight; Basophils % (A) 0 %; Eosinophils # (A) 0.5 k/uL (0-0.7); Eosinophils % (A) 6 %; HCT 25.7 % (34.0-46.0); HGB 7.6 gm/dL (11.4-16.0); Hypochromasia Marked; Lymphocytes # (A) 1.6 k/uL (1.0-4.8); Lymphocytes % (A) 20 %; MCH 22.2 pg (25.0-35.0); MCHC 29.6 g/dL (31.0-37.0); Mean Platelet Volume 7.9; Microcytosis Moderate; Monocytes # (A) 0.7 k/uL (0-1.0); Monocytes % (A) 8 %; Neutrophils % (A) 62 %; Platelet Count 286 k/uL (150-450); Poikilocytosis Slight; RBC 3.42 m/uL (3.80-5.40); RDW 19.6 % (11.5-15.5)
[2020-03-31] MEDS ORDERED: IOPAMIDOL CONTRAST (ORAL USE) VIAL PO PRN (07:31)
[2020-03-31 07:34] LABS: Albumin 2.9 g/dL (3.5-5.0); Calcium 8.3 mg/dL (8.4-10.2); Potassium 3.4 mmol/L (3.5-5.1); Total Bilirubin 0.7 mg/dL (0.2-1.3); Total Protein 6.1 g/dL (6.3-8.2)
[2020-03-31] MEDS: IOPAMIDOL CONTRAST (ORAL USE) VIAL PO PRN ×2 (08:10→09:00)
[2020-03-31] MEDS: IPRATROPIUM 0.5 MG/2.5 ML NEBU INHALATION SCH ×4 (08:15→20:08)
[2020-03-31] MEDS: SYMBICORT 80-4.5 MCG INHALER INHALATION SCH ×2 (08:15→20:09)
--- NOTE | 2020-03-31 10:02 | CT ---
EXAMINATION TYPE: CT abdomen pelvis wo con DATE OF EXAM: 03/31/2020 COMPARISON: 07/19/2019 HISTORY: cecum mass CT DLP: 526.7 mGycm Examination of the solid and hollow viscera is limited given the lack of contrast. FINDINGS: LUNG BASES: 8 mm nodular density in the region of the lingula as well as the 1.5 cm nodular density i n the region of the right middle lobe which could be postinflammatory in nature as there was a prior infiltrate in this region. LIVER/GB: The gallbladder is surgically absent. No space-occupying hepatic lesion. PANCREAS: No pancreatic mass identified. No inflammatory process seen. SPLEEN: No evidence for splenomegaly. No intrasplenic lesions seen. ADRENALS: No adrenal nodules identified. No evidence for thickening. KIDNEYS: Urinary bladder is distended with urine and measures 17.1 x 10.4 cm. Correlate for bladder o utlet obstruction or neurogenic bladder. There is mild fullness of the renal collecting systems. Rylie l cystic changes noted. No evidence for nephrolithiasis. BOWEL: Soft tissue mass in the region of the cecum measures 2.1 x 3.4 cm. Direct visualization recomm ended. No evidence of bowel obstruction. No inflammatory process. Lymph nodes: No evidence for adenopathy greater than 1 cm. Abdominal aorta: Atheromatous changes seen. No evidence for aneurysm. Genital organs: Atrophic changes are noted of the uterus. Other: No significant abnormality. IMPRESSION: 1. Soft tissue at the level of the cecum. Underlying neoplasm is not excluded. Direct visualization r ecommended. 2. Nonspecific pulmonary nodularity. CT of the chest is advised. 3. Correlate for neurogenic bladder bladder outlet obstruction.
[2020-03-31] MEDS: PANTOPRAZOLE 40 MG TABLET PO SCH ×3 (10:33→21:14)
[2020-03-31] MEDS: METOPROLOL TARTRATE 50 MG TAB PO SCH ×2 (10:34→21:14)
[2020-03-31] MEDS: FUROSEMIDE 40 MG TAB PO SCH (10:34)
[2020-03-31] MEDS: SODIUM FERRIC GLUCONAT-SUCROSE 125 MG in SODIUM CHLORIDE 0.9% 100 ML IVPB SCH (10:34)
[2020-03-31] MEDS: ISOSORBIDE MONONITRATE ER 30 MG TAB.ER.24H PO SCH (10:34)
[2020-03-31] MEDS: SENNOSIDES 8.6 MG TAB PO SCH (10:34)
--- NOTE | 2020-03-31 10:46 | PN ---
PROGRESS NOTE DATE OF THE OF DICTATION: 03/31/2020 Patient is an 89-year-old pleasant white female with history of COPD, admitted to the hospital with severe symptomatic anemia, consistent with iron-deficiency anemia. She underwent an EGD colonoscopy by Dr. Stone yesterday, upper endoscopy revealed a proximal esophageal stricture and scope could not be advanced to the stricture, but the colonoscopy revealed a cecal mass suspicious for neoplasm, status post biopsies. Pathology pending. Patient denies any symptoms today. PHYSICAL EXAMINATION: Appears comfortable, in no apparent distress. VITAL SIGNS: Stable. Blood pressure 161/70, pulse rate 74, temperature 97.5. HEENT: Examination unremarkable, conjunctivae are pink, sclerae nonicteric. Oral cavity no lesions. NECK: No JVD or lymph node encouragement. CHEST: Clear to auscultation. Decreased breath sounds bilaterally. HEART: Regular rate and rhythm. ABDOMEN: Soft, bowel sounds are positive, no organomegaly. EXTREMITIES: No pedal edema. SKIN: No rashes. NEUROLOGIC: Alert and oriented x3. No focal deficits. LABS: From today WBC 8, hemoglobin 7.6, platelets normal. Basic metabolic panel, BUN 34, creatinine 1.28. IMPRESSION: 1. Iron deficiency anemia, status post EGD,colonoscopy yesterday. Colonoscopy revealed a cecal mass, biopsies pending. 2. Exacerbation of chronic obstructive pulmonary disease. 3. Iron-deficiency anemia. 4. Proximal esophageal stricture. Scope could not be advanced to this area. 5. Increased BUN and creatinine. RECOMMENDATION: 1. Surgical consultation for right colon mass. 2. CT of the abdomen and pelvis done with oral contrast only, to rule out metastasis. 3. Will follow with you closely. 4. Await pathology results. Thank you for this consultation. MMODL / IJN: [id number] /
[2020-03-31] MEDS: LORazepam 1 MG TAB PO SCH ×2 (11:18→21:03)
[2020-03-31 11:46] LABS: Glucose,Whole Blood 80 mg/dL (75-99)
[2020-03-31] MEDS: SERAX PO PRN ×2 (12:32→21:14)
--- NOTE | 2020-03-31 13:44 | P.GSCN ---
History of Present Illness Consult date: 03/31/20 Reason for Consult: Cecal tumor History of present illness: This 89-year-old female who was admitted hospital for anemia. Patient underwent recent colonoscopy and EGD. 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 The tumor occupies approximately 75% of the lumen of the cecum. Past Medical History Past Medical History: Atrial Fibrillation, Coronary Artery Disease (CAD), Chest Pain / Angina, Heart Failure, COPD, CVA/TIA, Diabetes Mellitus, GERD/Reflux, Hearing Disorder / Deafness, Hyperlipidemia, Hypertension, Myocardial Infarction (CA), Osteoarthritis (OA), Pneumonia, Renal Disease, Skin Disorder Additional Past Medical History / Comment(s): IDDM type II, frequent pneumonia, aspiration pneumonia with sepsis, renal insufficiency, recurrent UTIs, TIA x 3, difficulty swallowing-crushes meds and puts them in yogurt-past EGD/dilations, anemia, eczema, "lazy bowel" but pt states anymore she goes from diarrhea to constipation easily, generalized arthritis, chronic back pain, hiatal hernia Last Myocardial Infarction Date:: 1998, 09/21/17 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 MDRO Source:: VRE URINE Past Surgical History: Cholecystectomy, Heart Catheterization With Stent Additional Past Surgical History / Comment(s): cataracts w/lens implants, e ctopic with one ovary/tube removed, heart caths :04/30/96 stent to rca, 03/18/2000 stent to mid rca, 07/22/17 stent to lad Past Anesthesia/Blood Transfusion Reactions: Previous Problems w/ Anesthesia Additional Past Anesthesia/Blood Transfusion Reaction / Comm: difficulty breathing after anesthesia Date of Last Stent Placement:: 06/2017 Past Psychological History: Depression Additional Psychological History / Comment(s): Pt resides in an apartment at [facility]. She ambulates with a walker. Her daughter is very helpful and is in an apt above her. 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 She no longer drives, family takes her to [employer]. She goes up to her daughter's for supper and manages her own medication. Smoking Status: Former smoker Past Alcohol Use History: None Reported Additional Past Alcohol Use History / Comment(s): Patient has history of smoking 2 packs per day started smoking at age 16 Past Drug Use History: None Reported - Past Family History Father History Unknown: Yes Family Medical History: Myocardial Infarction (CA) Additional Family Medical History / Comment(s): Father had a CA at the age of 50 yrs. He lived to be 75yrs old. Mother History Unknown: Yes Family Medical History: Myocardial Infarction (CA) Additional Family Medical History / Comment(s): Mother of a CA at about age 80yrs. Medications and Allergies Home Medications Medication Instructions Recorded Confirmed Type Montelukast [Singulair] 10 mg PO HS@209905/17/17 03/27/20 History Fluticasone/Salmeterol [Advair 1 puff INHALATION RT-BID@899,209905/18/17 03/27/20 History 250-50 Diskus] Metoprolol Tartrate [Lopressor] 100 mg PO BID@899,209907/18/17 03/27/20 History Sennosides [Senna] 8.6 mg PO DAILY@89907/18/17 03/27/20 History Nitroglycerin Sl Tabs [Nitrostat] 0.4 mg SUBLINGUAL Q5M PRN #25 tab 07/23/17 03/27/20 Rx Acetaminophen [Tylenol] 1,000 mg PO Q4H PRN 05/14/18 03/27/20 History HYDROcodone/APAP 5-325MG [[place] 1 tab PO BID PRN #120 tab 10/06/19 03/27/20 Rx 5-325] Ferrous Sulfate [Feosol] 325 mg PO BID@0900,1700 11/27/19 03/27/20 History Atorvastatin [Lipitor] 40 mg PO HS@209903/27/20 03/27/20 History Bisacodyl [Dulcolax] 10 mg RECTAL Q72H PRN 03/27/20 03/27/20 History Furosemide [Lasix] 40 mg PO DAILY@0903/27/20 03/27/20 History Insulin Glargine,Hum.rec.anlog 8 unit SQ HS@209903/27/20 03/27/20 History [Lantus Solostar] Isosorbide Mononitrate ER [Imdur] 30 mg PO DAILY@0903/27/20 03/27/20 History Oxazepam [Serax] 15 mg PO BID@899,2100 03/27/20 03/27/20 History Pantoprazole [Protonix] 40 mg PO BID@0900,2100 03/27/20 03/27/20 History Tiotropium Reading [Spiriva] 1 cap INHALATION RT-DAILY@1700 03/27/20 03/27/20 History Allergies Allergy/AdvReac Type Severity Reaction Status Date / Time adhesive tape Allergy Rash/Hives Verified 03/27/20 22:05 amoxicillin trihydrate Allergy Unknown Verified 03/27/20 22:05 [From Augmentin] clindamycin HCl Allergy Unknown Verified 03/27/20 22:05 [From Cleocin] clindamycin palmitate HCl Allergy Unknown Verified 03/27/20 22:05 [From Cleocin] clindamycin phosphate Allergy Unknown Verified 03/27/20 22:05 [From Cleocin] codeine Allergy Unknown Verified 03/27/20 22:05 nitrofurantoin Allergy Unknown Verified 03/27/20 22:05 [From Macrobid] nitrofurantoin Allergy Unknown Verified 03/27/20 22:05 macrocrystalline [From Macrobid] Penicillins Allergy Unknown Verified 03/27/20 22:05 potassium clavulanate Allergy Unknown Verified 03/27/20 22:05 [From Augmentin] prednisone Allergy Unknown Verified 03/27/20 22:05 quinine Allergy Unknown Verified 03/27/20 22:05 Sulfa (Sulfonamide Allergy Unknown Verified 03/27/20 22:05 Antibiotics) sulfamethoxazole Allergy Unknown Verified 03/27/20 22:05 [From Bactrim] trimethoprim [From Bactrim] Allergy Unknown Verified 03/27/20 22:05 lorazepam [From Ativan] AdvReac Confusion Verified 03/27/20 22:05 Surgical - Exam Vital Signs Temp Pulse Resp BP Pulse Ox 98.3 F 73 20 180/78 99 03/27/20 21:11 03/27/20 21:11 03/27/20 21:11 03/27/20 21:11 03/27/20 21:11 - General well developed, well nourished, no distress - Eyes PERRL - ENT normal pinna - Neck no masses - Respiratory normal expansion - Cardiovascular Rhythm: regular - Abdomen Abdomen: soft, non tender Results - Labs 03/31/20 06:43 03/31/20 06:43 Abnormal Lab Results - Last 24 Hours (Table) 03/30/20 03/30/20 03/31/20 Range/Units 16:13 19:47 06:43 RBC 3.42 L (3.80-5.40) m/uL Hgb 7.6 L (11.4-16.0) gm/dL Hct 25.7 L (34.0-46.0) % MCV 75.0 L (80.0-100.0) fL MCH 22.2 L (25.0-35.0) pg MCHC 29.6 L (31.0-37.0) g/dL RDW 19.6 H (11.5-15.5) % Potassium (3.5-5.1) mmol/L Carbon Dioxide (22-30) mmol/L BUN (7-17) mg/dL Creatinine (0.52-1.04) mg/dL Glucose (74-99) mg/dL POC Glucose (mg/dL) 105 H 204 H (75-99) mg/dL Calcium (8.4-10.2) mg/dL Total Protein (6.3-8.2) g/dL Albumin (3.5-5.0) g/dL 03/31/20 Range/Units 06:43 RBC (3.80-5.40) m/uL Hgb (11.4-16.0) gm/dL Hct (34.0-46.0) % MCV (80.0-100.0) fL MCH (25.0-35.0) pg MCHC (31.0-37.0) g/dL RDW (11.5-15.5) % Potassium 3.4 L (3.5-5.1) mmol/L Carbon Dioxide 32 H (22-30) mmol/L BUN 34 H (7-17) mg/dL Creatinine 1.28 H (0.52-1.04) mg/dL Glucose 62 L (74-99) mg/dL POC Glucose (mg/dL) (75-99) mg/dL Calcium 8.3 L (8.4-10.2) mg/dL Total Protein 6.1 L (6.3-8.2) g/dL Albumin 2.9 L (3.5-5.0) g/dL Diabetes panel 03/31/20 Range/Units 06:43 Sodium 138 (137-145) mmol/L Potassium 3.4 L (3.5-5.1) mmol/L Chloride 101 (98-107) mmol/L Carbon Dioxide 32 H (22-30) mmol/L BUN 34 H (7-17) mg/dL Creatinine 1.28 H (0.52-1.04) mg/dL Glucose 62 L (74-99) mg/dL Calcium 8.3 L (8.4-10.2) mg/dL AST 30 (14-36) U/L ALT 9 (4-34) U/L Alkaline Phosphatase 80 (38-126) U/L Total Protein 6.1 L (6.3-8.2) g/dL Albumin 2.9 L (3.5-5.0) g/dL Calcium panel 03/31/20 Range/Units 06:43 Calcium 8.3 L (8.4-10.2) mg/dL Albumin 2.9 L (3.5-5.0) g/dL Pituitary panel 03/31/20 Range/Units 06:43 Sodium 138 (137-145) mmol/L Potassium 3.4 L (3.5-5.1) mmol/L Chloride 101 (98-107) mmol/L Carbon Dioxide 32 H (22-30) mmol/L BUN 34 H (7-17) mg/dL Creatinine 1.28 H (0.52-1.04) mg/dL Glucose 62 L (74-99) mg/dL Calcium 8.3 L (8.4-10.2) mg/dL Adrenal panel 03/31/20 Range/Units 06:43 Sodium 138 (137-145) mmol/L Potassium 3.4 L (3.5-5.1) mmol/L Chloride 101 (98-107) mmol/L Carbon Dioxide 32 H (22-30) mmol/L BUN 34 H (7-17) mg/dL Creatinine 1.28 H (0.52-1.04) mg/dL Glucose 62 L (74-99) mg/dL Calcium 8.3 L (8.4-10.2) mg/dL Total Bilirubin 0.7 (0.2-1.3) mg/dL AST 30 (14-36) U/L ALT 9 (4-34) U/L Alkaline Phosphatase 80 (38-126) U/L Total Protein 6.1 L (6.3-8.2) g/dL Albumin 2.9 L (3.5-5.0) g/dL Assessment and Plan Assessment: Cecal tumor. Pathology still pending. Patient be scheduled for right colectomy on Friday.
--- NOTE | 2020-03-31 14:58 | P.PN ---
Subjective Progress Note Date: 03/31/20 Principal diagnosis: Anemia and now cecal mass Cecal mass was found and biopsy obtained Objective - Vital Signs Vital signs: Vital Signs Temp 97.9 F 03/31/20 12:00 Pulse 57 L 03/31/20 12:00 Resp 20 03/31/20 12:00 BP 141/83 03/31/20 12:00 Pulse Ox 99 03/31/20 12:00 Intake & Output 03/30/20 03/31/20 03/31/20 18:59 06:59 18:59 Intake Total 600 540 Output Total 100 Balance 600 540 -100 Weight 46.9 kg 46.3 kg Intake: IV 600 Oral 540 Output: Urine 100 Other: Voiding Method Toilet Bedside Commode # Voids 1 # Bowel Movements 1 - Exam - General well developed, well nourished, no distress - Eyes PERRL - ENT normal pinna - Neck no masses - Respiratory normal expansion - Cardiovascular Rhythm: regular - Abdomen Abdomen: soft, non tender - Labs CBC & Chem 7: 03/31/20 06:43 03/31/20 06:43 Labs: Abnormal Lab Results - Last 24 Hours (Table) 03/30/20 03/30/20 03/31/20 Range/Units 16:13 19:47 06:43 RBC 3.42 L (3.80-5.40) m/uL Hgb 7.6 L (11.4-16.0) gm/dL Hct 25.7 L (34.0-46.0) % MCV 75.0 L (80.0-100.0) fL MCH 22.2 L (25.0-35.0) pg MCHC 29.6 L (31.0-37.0) g/dL RDW 19.6 H (11.5-15.5) % Potassium (3.5-5.1) mmol/L Carbon Dioxide (22-30) mmol/L BUN (7-17) mg/dL Creatinine (0.52-1.04) mg/dL Glucose (74-99) mg/dL POC Glucose (mg/dL) 105 H 204 H (75-99) mg/dL Calcium (8.4-10.2) mg/dL Total Protein (6.3-8.2) g/dL Albumin (3.5-5.0) g/dL 03/31/20 Range/Units 06:43 RBC (3.80-5.40) m/uL Hgb (11.4-16.0) gm/dL Hct (34.0-46.0) % MCV (80.0-100.0) fL MCH (25.0-35.0) pg MCHC (31.0-37.0) g/dL RDW (11.5-15.5) % Potassium 3.4 L (3.5-5.1) mmol/L Carbon Dioxide 32 H (22-30) mmol/L BUN 34 H (7-17) mg/dL Creatinine 1.28 H (0.52-1.04) mg/dL Glucose 62 L (74-99) mg/dL POC Glucose (mg/dL) (75-99) mg/dL Calcium 8.3 L (8.4-10.2) mg/dL Total Protein 6.1 L (6.3-8.2) g/dL Albumin 2.9 L (3.5-5.0) g/dL Assessment and Plan Plan: Assessment and Plan Microcytic hypochromic anemia - Multifactorial Iron deficiency with component of CKD and now GI Mass responsible for Blood loss component - Parental Iron to continue - Daily CBC - 4 week outpatient hematology follow-up - GI Work-up was performed and 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 - General surgery has been consulted and evaluated patient and plan is for right colectomy on Friday - Path from biopsies pending Chronic kidney disease (unknown stage) - Erythropoietin supplementation for of chronic kidney disease initiated, first dose of Aranesp 40 mg to be given today. - It was confirmed that the [facility] is able to administer Aranesp. - Orders have been placed in the discharge paperwork for same. Discussed findings with patient. Physician Attest: I have completed full history and physical and agree with above dictation, dictated as a scribe
--- NOTE | 2020-03-31 15:28 | P.PN ---
Subjective Progress Note Date: 03/31/20 Sonal Ulloa is an 89-year-old female patient who presented to the emergency department today for evaluation of low hemoglobin. Patient is currently a resident at [facility] on the [facility]. She had labs performed yesterday and hemoglobin was 6.1. she was sent to [facility] emergency room for evaluation , she received 1 unit of red blood cell transfusion in the emergency room and she started developing shortness of breath repeat hemoglobin was 9.1 patient has a known history of iron deficiency anemia . She was admitted to medical floor gastroenterology consultation and hematology consultation were requested for evaluation of chronic anemia . 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 Patient is otherwise stable there is no fever or chills no headache or dizziness no chest pain no shortness of breath no cough no nausea or vomiting no abdominal pain no diarrhea and no urinary symptoms. On 03/31/2020 patient was seen and examined on the medical floor, there is no fever or chills no headache or dizziness no chest pain no shortness of breath no cough no nausea or vomiting no dominant pain nor diarrhea no burning with urination no frequency or urgency no hematuria, hemoglobin today is 7.6 white blood count 8.0 potassium 3. Objective - Vital Signs Vital signs: Vital Signs Temp 97.5 F L 03/31/20 08:00 Pulse 64 03/31/20 08:25 Resp 18 03/31/20 08:00 BP 161/70 03/31/20 08:00 Pulse Ox 100 03/31/20 08:00 Intake & Output 03/30/20 03/31/20 03/31/20 18:59 06:59 18:59 Intake Total 600 540 Balance 600 540 Weight 46.9 kg 46.3 kg Intake: IV 600 Oral 540 Other: Voiding Method Toilet # Voids 1 # Bowel Movements 1 - Exam In general patient is alert and oriented 3 in no apparent distress HEENT head normocephalic and atraumatic Neck is supple no JVD no goiter no lymphadenopathy Chest exam reveals a few scattered crackles no wheezing Cardiac exam reveals regular heart sounds no gallops no murmurs Abdomen is soft nontender no organomegaly with normal bowel sounds Extremity exam reveals no edema no cyanosis or clubbing Neurological examination reveals no gross focal deficit - Labs CBC & Chem 7: 03/31/20 06:43 03/31/20 06:43 Labs: Abnormal Lab Results - Last 24 Hours (Table) 03/30/20 03/30/20 03/31/20 Range/Units 16:13 19:47 06:43 RBC 3.42 L (3.80-5.40) m/uL Hgb 7.6 L (11.4-16.0) gm/dL Hct 25.7 L (34.0-46.0) % MCV 75.0 L (80.0-100.0) fL MCH 22.2 L (25.0-35.0) pg MCHC 29.6 L (31.0-37.0) g/dL RDW 19.6 H (11.5-15.5) % Potassium (3.5-5.1) mmol/L Carbon Dioxide (22-30) mmol/L BUN (7-17) mg/dL Creatinine (0.52-1.04) mg/dL Glucose (74-99) mg/dL POC Glucose (mg/dL) 105 H 204 H (75-99) mg/dL Calcium (8.4-10.2) mg/dL Total Protein (6.3-8.2) g/dL Albumin (3.5-5.0) g/dL 03/31/20 Range/Units 06:43 RBC (3.80-5.40) m/uL Hgb (11.4-16.0) gm/dL Hct (34.0-46.0) % MCV (80.0-100.0) fL MCH (25.0-35.0) pg MCHC (31.0-37.0) g/dL RDW (11.5-15.5) % Potassium 3.4 L (3.5-5.1) mmol/L Carbon Dioxide 32 H (22-30) mmol/L BUN 34 H (7-17) mg/dL Creatinine 1.28 H (0.52-1.04) mg/dL Glucose 62 L (74-99) mg/dL POC Glucose (mg/dL) (75-99) mg/dL Calcium 8.3 L (8.4-10.2) mg/dL Total Protein 6.1 L (6.3-8.2) g/dL Albumin 2.9 L (3.5-5.0) g/dL Assessment and Plan Plan: 1. Anemia, iron deficiency, acute on chronic 2. CKD stage 3 Will consult nephrology for possible outpatient follow-up for Procrit injections 3. fluid overload with shortness of breath after 1 unit red blood cell transfusion 4. Underlying history of hypertension 5. Underlying history of hyperlipidemia 6. Underlying history of COPD 7. Underlying history of insulin-dependent diabetes mellitus At this time patient is admitted to telemetry floor awaiting input from gastroenterology for possible EGD and colonoscopy, patient will need outpatient follow-up with hematology for possible IV iron infusion and possible Procrit injections Will follow during this admission for medical management
[2020-03-31 16:34] LABS: Glucose,Whole Blood 159 mg/dL (75-99)
[2020-03-31] MEDS: LACTATED RINGERS 1,000 ML IV SCH (17:50)
--- NOTE | 2020-03-31 18:41 | CT ---
EXAMINATION TYPE: CT chest wo con DATE OF EXAM: 03/31/2020 COMPARISON: CT abdomen pelvis same date, chest CT 05/11/2019 HISTORY: SOB CT DLP: 276.1 mGycm. Automated Exposure Control for Dose Reduction was Utilized. TECHNIQUE: CT scan of the thorax is performed without IV contrast. FINDINGS: LUNGS: The lungs are similar to prior exam, this is stable right upper lobe lung nodule, underlying i nterstitial changes and emphysematous changes, nodularity posterior right lung base again noted and t here is a calcified nodule in the left costophrenic angle level as on prior, some basilar scarring ag ain noted. There is no pleural effusion or pneumothorax seen. The tracheobronchial tree is patent. MEDIASTINUM: Lack of IV contrast is noted to limit evaluation for mediastinal and especially hilar ad enopathy. There are no definitive greater than 1 cm hilar or mediastinal lymph nodes, borderline retr ocaval pretracheal node is unchanged, there is prevascular node also stable and a calcified left lilia r nodes. There is cardiomegaly, no pericardial effusion is seen. There are coronary artery calcificat ions OTHER: The aorta shows atheromatous change, see report abdomen CT same date for evaluation of upper a bdomen findings. Multiple thoracic compression fractures are present, there is a kyphosis present. IMPRESSION: Lung nodularity is stable. Coronary artery disease and cardiomegaly. Emphysema. Stable fi ndings with exception of interval development of additional thoracic osteoporotic compression fractur es.
[2020-03-31 20:42] LABS: Glucose,Whole Blood 167 mg/dL (75-99)
[2020-03-31] MEDS: ATORVASTATIN 40 MG TAB PO SCH (21:14)
[2020-03-31] MEDS: INSULIN DETEMIR (LEVEMIR) 100 UNIT/ML SYR SQ SCH (21:14)
[2020-03-31] MEDS: MONTELUKAST 10 MG TAB PO SCH (21:14)
--- NOTE | 2020-03-31 23:26 | P.PN ---
Subjective Progress Note Date: 03/31/20 Principal diagnosis: Anemia secondary to microcytic hypochromic anemia The patient is seen today 03/30/2020 in follow-up on the selective care unit. She is currently resting comfortably in bed. Awake and alert in no acute distress. Denies any worsening shortness of breath cough or congestion. No noted bleeding. White count 8.6. Hemoglobin 7.9. Sodium 136. Potassium 3.8. Creatinine 1.46. She is status post 1 unit of packed red blood cells this admission. Plan is for EGD/colonoscopy today. On 03/31/2020 patient seen in follow-up on selective care unit, she is awake and alert, in no acute distress, patient is extremely hard of hearing which makes communicating with her very difficult. Her breathing is comfortable, she is currently on 2 L of oxygen with a pulse ox of 99 200%, lung sounds are clear. No rhonchi, no wheezing. Yesterday patient could not complete her EGD related to stricture, and procedure was aborted, colonoscopy revealed a cecal mass, stat us post biopsies. The mass was suspicious for neoplasm. CT of abdomen and pelvis has been completed showing soft tissue at the level of the cecum, and nonspecific pulmonary nodularity, with 8 mm nodular density in the region of the lingula as well as the 1.5 cm nodular density in the region of the right middle lobe which could be postinflammatory in nature. Dedicated computed tomography scan of the chest was advised. Objective - Vital Signs Vital signs: Vital Signs Temp 97.5 F L 03/31/20 08:00 Pulse 68 03/31/20 11:45 Resp 18 03/31/20 08:00 BP 161/70 03/31/20 08:00 Pulse Ox 100 03/31/20 08:00 Intake & Output 03/30/20 03/31/20 03/31/20 18:59 06:59 18:59 Intake Total 600 540 Output Total 100 Balance 600 540 -100 Weight 46.9 kg 46.3 kg Intake: IV 600 Oral 540 Output: Urine 100 Other: Voiding Method Toilet # Voids 1 # Bowel Movements 1 - Exam GENERAL EXAM: Alert, very pleasant, 89-year-old white female on 2 L of oxygen with pulse ox of 100%, comfortable in no apparent distress. Patient is ex tremely hard of hearing HEAD: Normocephalic/atraumatic. EYES: Normal reaction of pupils, equal size. Conjunctiva pink, sclera white. NOSE: Clear with pink turbinates. THROAT: No erythema or exudates. NECK: No masses, no JVD, no thyroid enlargement, no adenopathy. CHEST: No chest wall deformity. Symmetrical expansion. LUNGS: Equal air entry with no crackles, wheeze, rhonchi or dullness. CVS: Regular rate and rhythm, normal S1 and S2, no gallops, no murmurs, no rubs ABDOMEN: Soft, nontender. No hepatosplenomegaly, normal bowel sounds, no guarding or rigidity. EXTREMITIES: No clubbing, no edema, no cyanosis, 2+ pulses and upper and lower extremities. MUSCULOSKELETAL: Muscle strength and tone normal. SPINE: No scoliosis or deformity SKIN: No rashes CENTRAL NERVOUS SYSTEM: Alert and oriented -3. No focal deficits, tone is normal in all 4 extremities. PSYCHIATRIC: Alert and oriented -3. Appropriate affect. Intact judgment and insight. - Labs CBC & Chem 7: 03/31/20 06:43 03/31/20 06:43 Labs: Abnormal Lab Results - Last 24 Hours (Table) 03/30/20 03/30/20 03/31/20 Range/Units 16:13 19:47 06:43 RBC 3.42 L (3.80-5.40) m/uL Hgb 7.6 L (11.4-16.0) gm/dL Hct 25.7 L (34.0-46.0) % MCV 75.0 L (80.0-100.0) fL MCH 22.2 L (25.0-35.0) pg MCHC 29.6 L (31.0-37.0) g/dL RDW 19.6 H (11.5-15.5) % Potassium (3.5-5.1) mmol/L Carbon Dioxide (22-30) mmol/L BUN (7-17) mg/dL Creatinine (0.52-1.04) mg/dL Glucose (74-99) mg/dL POC Glucose (mg/dL) 105 H 204 H (75-99) mg/dL Calcium (8.4-10.2) mg/dL Total Protein (6.3-8.2) g/dL Albumin (3.5-5.0) g/dL 03/31/20 Range/Units 06:43 RBC (3.80-5.40) m/uL Hgb (11.4-16.0) gm/dL Hct (34.0-46.0) % MCV (80.0-100.0) fL MCH (25.0-35.0) pg MCHC (31.0-37.0) g/dL RDW (11.5-15.5) % Potassium 3.4 L (3.5-5.1) mmol/L Carbon Dioxide 32 H (22-30) mmol/L BUN 34 H (7-17) mg/dL Creatinine 1.28 H (0.52-1.04) mg/dL Glucose 62 L (74-99) mg/dL POC Glucose (mg/dL) (75-99) mg/dL Calcium 8.3 L (8.4-10.2) mg/dL Total Protein 6.1 L (6.3-8.2) g/dL Albumin 2.9 L (3.5-5.0) g/dL Assessment and Plan Plan: Assessment: 1 Anemia secondary to microcytic hypochromic anemia with iron deficiency anemia, plan is for EGD/colonoscopy today 2 cecal mass, suspicious for neoplasm, does pose biopsies, results are pending 3 esophageal stricture 4 Acute on chronic hypoxemic respiratory failure secondary to extensive pulmonary fibrosis and COPD 5 nonspecific pulmonary nodularity noted on the CT of the abdomen and pelvis, with 8 mm nodular density in the lingula and 1.5 cm nodular density in the region of the right middle lobe 6 Coronary artery disease with previous stent placement 7 Diabetes mellitus 8 Hypertension 9 Hyperlipidemia 10 Hearing disorder 11 Osteoarthritis 12 Renal insufficiency 13 History of TIA 14 History of esophageal stricture with previous dilatation 15 Chronic back pain Plan: From pulmonary perspective patient is stable, no worsening dyspnea, she is on 2 L of oxygen, maintaining stable oxygenation, lung sounds are clear, no nonspecific pulmonary nodularity noted on the CT of the abdomen and pelvis was noted, patient's renal profile is abnormal right now, and patient cannot have any IV contrast. Will follow-up with a computed tomography scan of the chest at a later date, will await results of the cecal mass biopsies. I performed a history & physical examination of the patient and discussed their management with my nurse practitioner, Josephine Winkler. I reviewed the nurse practitioner's note and agree with the documented findings and plan of care. Lung sounds are positive for clear diminished at bases. The findings and the impression was discussed with the patient. I attest to the documentation by the nurse practitioner. Time with Patient: Less than 30
[2020-04-01 06:03] LABS: Glucose,Whole Blood 97 mg/dL (75-99)
[2020-04-01 06:52] LABS: Anisocytosis Slight; Basophils % (A) 1 %; Eosinophils # (A) 0.6 k/uL (0-0.7); Eosinophils % (A) 7 %; HGB 7.9 gm/dL (11.4-16.0); Hypochromasia Marked; Lymphocytes # (A) 1.6 k/uL (1.0-4.8); Lymphocytes % (A) 21 %; MCH 22.7 pg (25.0-35.0); MCHC 29.4 g/dL (31.0-37.0); MCV 77.3 fL (80.0-100.0); Microcytosis Slight; Monocytes # (A) 0.6 k/uL (0-1.0); Monocytes % (A) 8 %; Neutrophils # (A) 4.6 k/uL (1.3-7.7); Neutrophils % (A) 60 %; Platelet Count 280 k/uL (150-450); Poikilocytosis Slight; RBC 3.49 m/uL (3.80-5.40); RDW 19.8 % (11.5-15.5); WBC 7.6 k/uL (3.8-10.6)
[2020-04-01 06:59] LABS: Calcium 8.7 mg/dL (8.4-10.2); Potassium 3.8 mmol/L (3.5-5.1); Total Bilirubin 0.4 mg/dL (0.2-1.3); Total Protein 6.1 g/dL (6.3-8.2)
[2020-04-01] MEDS: IPRATROPIUM 0.5 MG/2.5 ML NEBU INHALATION SCH ×4 (09:24→20:17)
[2020-04-01] MEDS: SYMBICORT 80-4.5 MCG INHALER INHALATION SCH ×2 (09:25→20:17)
[2020-04-01] MEDS: METOPROLOL TARTRATE 50 MG TAB PO SCH ×2 (10:41→21:48)
[2020-04-01] MEDS: SENNOSIDES 8.6 MG TAB PO SCH (10:41)
[2020-04-01] MEDS: FUROSEMIDE 40 MG TAB PO SCH (10:41)
[2020-04-01] MEDS: ISOSORBIDE MONONITRATE ER 30 MG TAB.ER.24H PO SCH (10:41)
[2020-04-01] MEDS: LORazepam 1 MG TAB PO SCH ×2 (10:42→20:17)
[2020-04-01] MEDS: PANTOPRAZOLE 40 MG TABLET PO SCH ×2 (10:42→21:31)
--- NOTE | 2020-04-01 12:09 | P.PN ---
Subjective Progress Note Date: 04/01/20 Sonal Ulloa is an 89-year-old female patient who presented to the emergency department today for evaluation of low hemoglobin. Patient is currently a resident at [facility] on the [facility]. She had labs performed yesterday and hemoglobin was 6.1. she was sent to [facility] emergency room for evaluation , she received 1 unit of red blood cell transfusion in the emergency room and she started developing shortness of breath repeat hemoglobin was 9.1 patient has a known history of iron deficiency anemia . She was admitted to medical floor gastroenterology consultation and hematology consultation were requested for evaluation of chronic anemia . 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 Patient is otherwise stable there is no fever or chills no headache or dizziness no chest pain no shortness of breath no cough no nausea or vomiting no abdominal pain no diarrhea and no urinary symptoms. On 03/31/2020 patient was seen and examined on the medical floor, there is no fever or chills no headache or dizziness no chest pain no shortness of breath no cough no nausea or vomiting no dominant pain nor diarrhea no burning with urination no frequency or urgency no hematuria, hemoglobin today is 7.6 white blood count 8.0 potassium 3. . On 04/01/2020 patient was seen and examined on the medical floor she is alert and oriented 3 in no apparent distress she is very hard of hearing, she denies any pain or discomfort at this time there is no chest pain or shortness of breath no cough no nausea or vomiting no abdominal pain no diarrhea no blood in the stools no burning with urination no frequency or urgency and no hematuria Objective - Vital Signs Vital signs: Vital Signs Temp 98.5 F 04/01/20 08:00 Pulse 68 04/01/20 09:34 Resp 18 04/01/20 08:00 BP 146/67 04/01/20 08:00 Pulse Ox 100 04/01/20 08:00 Intake & Output 03/31/20 04/01/20 04/01/20 18:59 06:59 18:59 Intake Total 540 Output Total 100 100 Balance -100 540 -100 Weight 46.1 kg Intake: Oral 540 Output: Urine 100 100 Other: Voiding Method Bedside Commode # Voids 1 1 1 # Bowel Movements 1 2 - Exam In general patient is alert and oriented 3 in no apparent distress HEENT head normocephalic and atraumatic Neck is supple no JVD no goiter no lymphadenopathy Chest exam reveals a few scattered crackles no wheezing Cardiac exam reveals regular heart sounds no gallops no murmurs Abdomen is soft nontender no organomegaly with normal bowel sounds Extremity exam reveals no edema no cyanosis or clubbing Neurological examination reveals no gross focal deficit - Labs CBC & Chem 7: 04/01/20 06:13 04/01/20 06:13 Labs: Abnormal Lab Results - Last 24 Hours (Table) 03/31/20 03/31/20 04/01/20 Range/Units 16:32 20:40 06:13 RBC 3.49 L (3.80-5.40) m/uL Hgb 7.9 L (11.4-16.0) gm/dL Hct 27.0 L (34.0-46.0) % MCV 77.3 L (80.0-100.0) fL MCH 22.7 L (25.0-35.0) pg MCHC 29.4 L (31.0-37.0) g/dL RDW 19.8 H (11.5-15.5) % Carbon Dioxide (22-30) mmol/L BUN (7-17) mg/dL Creatinine (0.52-1.04) mg/dL POC Glucose (mg/dL) 159 H 167 H (75-99) mg/dL Magnesium (1.6-2.3) mg/dL Total Protein (6.3-8.2) g/dL Albumin (3.5-5.0) g/dL 04/01/20 Range/Units 06:13 RBC (3.80-5.40) m/uL Hgb (11.4-16.0) gm/dL Hct (34.0-46.0) % MCV (80.0-100.0) fL MCH (25.0-35.0) pg MCHC (31.0-37.0) g/dL RDW (11.5-15.5) % Carbon Dioxide 35 H (22-30) mmol/L BUN 36 H (7-17) mg/dL Creatinine 1.26 H (0.52-1.04) mg/dL POC Glucose (mg/dL) (75-99) mg/dL Magnesium 3.0 H (1.6-2.3) mg/dL Total Protein 6.1 L (6.3-8.2) g/dL Albumin 3.0 L (3.5-5.0) g/dL Assessment and Plan Plan: 1. Anemia, iron deficiency, acute on chronic 2. CKD stage 3 Will consult nephrology for possible outpatient follow-up for Procrit injections 3. fluid overload with shortness of breath after 1 unit red blood cell transfusion 4. Underlying history of hypertension 5. Underlying history of hyperlipidemia 6. Underlying history of COPD 7. Underlying history of insulin-dependent diabetes mellitus 8. Scheduled for surgery on Friday for partial colectomy for colon mass, at this time will obtain echocardiogram and consult cardiology for surgical clearance At this time patient is admitted to telemetry floor awaiting input from gastro enterology for possible EGD and colonoscopy, patient will need outpatient follow-up with hematology for possible IV iron infusion and possible Procrit injections Will follow during this admission for medical management
[2020-04-01 12:37] LABS: Glucose,Whole Blood 160 mg/dL (75-99)
--- NOTE | 2020-04-01 12:56 | PN ---
PROGRESS NOTE DATE OF SERVICE: April 01, 2020 This is an 89-year-old female with a history of anemia secondary to iron deficiency. The patient was discovered on CT scan and colonoscopy to have a cecal mass. The plan is for surgery potentially with colectomy on Friday. The patient does have evidence of esophageal stricture also on EGD. The patient has a history of nonspecific pulmonary nodules on CT scan. They appear to be stable. She has a whole host of other medical problems. Dr. Cagle, my partner, serves as her primary care physician. She is profoundly hard of hearing. Surgery is not going to be done till Friday and will be done by Dr. Govea. PHYSICAL EXAMINATION: VITAL SIGNS: Current vital signs are reviewed. Temperature is 98.5, heart rate 64, respiratory rate 18, blood pressure 146/67 mean 93, 2 L saturation 100%. Appears in no acute distress. HEENT: Examination is grossly unremarkable. NECK: Supple. Full range of motion. No adenopathy or thyromegaly. Neck veins are flat. CARDIOVASCULAR: Examination reveals a regular rhythm rate. S1, S2 normal. No S3, S4, or murmur. LUNGS: Reveal mostly clear breath sounds. Breath sounds are diminished. No wheezes, rhonchi, or crackles. ABDOMEN: Soft. Bowel sounds are heard. EXTREMITIES are intact. No cyanosis, clubbing, or edema. SKIN: Without rash. NEUROLOGIC: Examination is brief but nonfocal. Current laboratory data reviewed. White count 7.6, hemoglobin 7.9, hematocrit 27.0. Platelet count 380,000, sodium, potassium chloride normal, CO2 35, anion gap is 5. BUN and creatinine were 36 and 1.26. Magnesium is 3. Albumin is 3. Microbiologic studies are negative. A chest CT done on March 31 shows evidence of stable lung nodularity. There is coronary artery disease and cardiomegaly as well as emphysematous changes. Abdominal and pelvic CT shows a soft tissue mass at the level of the cecum. Underlying neoplasm is not excluded. 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 ASSESSMENT: 1. Cecal mass, consistent with adenocarcinoma, with anticipated colectomy on Friday with Dr. Govea. 2. Esophageal stricture noted on EGD. 3. Anemia, secondary to iron deficiency. 4. Acute on chronic hypoxemic respiratory failure secondary to chronic obstructive pulmonary disease and pulmonary fibrosis, stable. 5. Nonspecific pulmonary nodularity, with CT scan evidence of instability. 6. Coronary artery disease with previous stent placement. 7. Diabetes mellitus. 8. Hypertension. 9. Hyperlipidemia. 10.Deafness. 11.Osteoarthritis. 12.Renal insufficiency. 13.History of transient ischemic attack. 14.Chronic back pain. PLAN: The plan is for her to have a colectomy on Friday with Dr. Govea. Currently, she is otherwise stable. She is profoundly deaf. Additional recommendations and suggestions are forthcoming. The CT scan of the chest is stable. The pulmonary nodularity is stable. We will continue to follow. Prognosis is guarded. MMODL / IJN: [id number] /
--- NOTE | 2020-04-01 13:30 | P.PN ---
Subjective Progress Note Date: 04/01/20 Principal diagnosis: Right colon mass Patient doing well today. No pain. White blood cell count 7.6, hemoglobin 7.9. CEA 4.1. No rectal bleeding. Objective - Vital Signs Vital signs: Vital Signs Temp 98.5 F 04/01/20 08:00 Pulse 68 04/01/20 12:34 Resp 18 04/01/20 08:00 BP 146/67 04/01/20 08:00 Pulse Ox 100 04/01/20 08:00 Intake & Output 03/31/20 04/01/20 04/01/20 18:59 06:59 18:59 Intake Total 540 Output Total 100 100 Balance -100 540 -100 Weight 46.1 kg Intake: Oral 540 Output: Urine 100 100 Other: Voiding Method Bedside Commode # Voids 1 1 1 # Bowel Movements 1 2 - Exam Abdomen: Soft, nontender, nondistended - Labs CBC & Chem 7: 04/01/20 06:13 04/01/20 06:13 Labs: Abnormal Lab Results - Last 24 Hours (Table) 03/31/20 03/31/20 04/01/20 Range/Units 16:32 20:40 06:13 RBC 3.49 L (3.80-5.40) m/uL Hgb 7.9 L (11.4-16.0) gm/dL Hct 27.0 L (34.0-46.0) % MCV 77.3 L (80.0-100.0) fL MCH 22.7 L (25.0-35.0) pg MCHC 29.4 L (31.0-37.0) g/dL RDW 19.8 H (11.5-15.5) % Carbon Dioxide (22-30) mmol/L BUN (7-17) mg/dL Creatinine (0.52-1.04) mg/dL POC Glucose (mg/dL) 159 H 167 H (75-99) mg/dL Magnesium (1.6-2.3) mg/dL Total Protein (6.3-8.2) g/dL Albumin (3.5-5.0) g/dL 04/01/20 04/01/20 Range/Units 06:13 12:33 RBC (3.80-5.40) m/uL Hgb (11.4-16.0) gm/dL Hct (34.0-46.0) % MCV (80.0-100.0) fL MCH (25.0-35.0) pg MCHC (31.0-37.0) g/dL RDW (11.5-15.5) % Carbon Dioxide 35 H (22-30) mmol/L BUN 36 H (7-17) mg/dL Creatinine 1.26 H (0.52-1.04) mg/dL POC Glucose (mg/dL) 160 H (75-99) mg/dL Magnesium 3.0 H (1.6-2.3) mg/dL Total Protein 6.1 L (6.3-8.2) g/dL Albumin 3.0 L (3.5-5.0) g/dL Assessment and Plan (1) Cecum mass Narrative/Plan: Continue regular diet today. Begin clear liquids and bowel prep tomorrow. Transfuse to keep hemoglobin over 8 given the preoperative status. Current Visit: Yes Status: Acute Code(s): K63.89 - OTHER SPECIFIED DISEASES OF INTESTINE SNOMED Code(s): 414600265
--- NOTE | 2020-04-01 15:05 | P.CRDCN ---
History of Present Illness Consult date: 04/01/20 Consult reason: pre-op evaluation History of present illness: History of present illness: This is an 89-year-old female past medical history significant for coronary artery disease status post multiple PCI, paroxysmal atrial fibrillation off anticoagulation due to bleeding, hypertension, chronic diastolic heart failure with EF of 50-55%, dyslipidemia, moderate aortic stenosis, severe mitral regurgitation, moderate to severe tricuspid regurgitation, acute non-ST elevated myocardial infarction in November 2019 with plan for him medical management. A previous heart catheterization in 2017 revealed LAD widely patent at the site of previous stenting, diffuse disease in the previous stented RCA, nondominant ci rcumflex with a 35-40% stenosis. History of diabetes mellitus type 2. Patient currently resides at [facility]. Patient came into [facility] on March 28 due to anemia. She has had a workup with GI underwent upper and lower endoscopies that found a colon mass with biopsy positive for adenocarcinoma. Patient is scheduled for partial colectomy by Dr. Govea on Friday. Hemoglobin is currently stable at 7.9, BUN 36 creatinine 1.26. She was transfused 1 unit of packed RBCs on March 28. Chest CT from yesterday revealed lung nodularity is stable. Coronary artery disease and cardiomegaly. Emphysema. Stable findings with the exception of interval development of additional thoracic osteoporotic compression fractures. At the time of evaluation, patient denies shortness of breath, lightheadedness or dizziness. She still does state that she has had some chest pain on the left side of her chest with tenderness to palpation. Review Of Systems: Constitutional: No fever, no chills. Reports generalized weakness. EENT: No headache. No blurred vision or double vision, no loss of vision. No loss of Hearing, no dizziness. No nasal drainage or congestion. No epistaxis. No sore throat. Lungs: No shortness of breath, cough, no sputum production. No wheezing. Cardiovascular: No chest pain, reports chest wall tenderness, no lower extremity edema. No palpitations. No paroxysmal nocturnal dyspnea. No orthopnea. No lightheadedness or dizziness. No syncopal episodes. Abdominal: No abdominal pain. No nausea, vomiting. No diarrhea. No constip ation. No bloody or tarry stools.. No loss of appetite. Genitourinary: No dysuria, increased frequency, urgency. No urinary retention. Musculoskeletal: No myalgias. No muscle weakness, reports gait dysfunction, no frequent falls. No back pain. No neck pain. Integumentary: No wounds, no lesions. No rash or pruritus. No unusual bruising. Neurologic: No aphasia. No change in mentation. No head injury. No headache. No paralysis. No paresthesia. Psychiatric: No anxiety. Physical examination: Gen: This is an 89-year-old female. Patient is resting in bed and appears to be comfortable and in no acute distress. VS: HEENT: Head is atraumatic, normocephalic. Pupils equal, round. Sclerae is anicteric. NECK: Supple. No JVD. No lymphadenopathy. No thyromegaly. LUNGS: Clear to auscultation. No wheezes or rhonchi. No intercostal retractions. HEART: Regular rate and rhythm. Systolic murmur. ABDOMEN: Soft. Bowel sounds are present. No masses. No tenderness. EXTREMITIES: No pedal edema. No calf tenderness. NEUROLOGICAL: Patient is awake, alert and oriented x3. Cranial nerves 2 through 12 are grossly intact. Assessment: Chronic diastolic heart failure with EF of 50-55% Moderate pulmonary hypertension Moderate aortic stenosis, severe mitral regurgitation, moderate to severe tricuspid regurgitation History of acute myocardial infarction and coronary artery disease status post PCI Atrial fibrillation, paroxysmal, not on anticoagulation due to GI bleeding Hypertension Hyperlipidemia Cecal mass, adenocarcinoma Esophageal stricture on EGD Acute anemia Plan: Patient is scheduled for colectomy on Friday with Dr. Govea Echocardiogram has been ordered and will be reviewed prior to procedure Continue Lopressor 100 mg twice daily, Imdur 30 mg daily, Lasix 40 mg daily, Lipitor 40 mg daily Further recommendations to follow based upon clinical course The kindly for this consultation Nurse practitioner note has been reviewed, I agree with documented findings and plan of care. Patient was seen and examined. Past Medical History Past Medical History: Atrial Fibrillation, Coronary Artery Disease (CAD), Chest Pain / Angina, Heart Failure, COPD, CVA/TIA, Diabetes Mellitus, GERD/Reflux, Hearing Disorder / Deafness, Hyperlipidemia, Hypertension, Myocardial Infarction (CO), Osteoarthritis (OA), Pneumonia, Renal Disease, Skin Disorder Additional Past Medical History / Comment(s): IDDM type II, frequent pneumonia, aspiration pneumonia with sepsis, renal insufficiency, recurrent UTIs, TIA x 3, difficulty swallowing-crushes meds and puts them in yogurt-past EGD/dilations, anemia, eczema, "lazy bowel" but pt states anymore she goes from diarrhea to constipation easily, generalized arthritis, chronic back pain, hiatal hernia Last Myocardial Infarction Date:: 1998, 09/21/17 History of Any Multi-Drug Resistant Organisms: VRE Date of last positivie culture/infection: 10/07/17 MDRO Source:: VRE URINE Past Surgical History: Cholecystectomy, Heart Catheterization With Stent Additional Past Surgical History / Comment(s): cataracts w/lens implants, ectopic with one ovary/tube removed, heart caths :04/30/96 stent to rca, 03/18/2000 stent to mid rca, 07/22/17 stent to lad Past Anesthesia/Blood Transfusion Reactions: Previous Problems w/ Anesthesia Additional Past Anesthesia/Blood Transfusion Reaction / Comment(s): difficulty breathing after anesthesia Date of Last Stent Placement:: 06/2017 Past Psychological History: Depression Additional Psychological History / Comment(s): Pt resides in an apartment at [facility]. She ambulates with a walker. Her daughter is very helpful and is in an apt above her. Pt has chore person from [employer] on aging. She no longer drives, family takes her to [facility]. She goes up to her daughter's for supper and manages her own medication. Smoking Status: Former smoker Past Alcohol Use History: None Reported Additional Past Alcohol Use History / Comment(s): Patient has history of smoking 2 packs per day started smoking at age 16 Past Drug Use History: None Reported - Past Family History Father History Unknown: Yes Family Medical History: Myocardial Infarction (CO) Additional Family Medical History / Comment(s): Father had a CO at the age of 50 yrs. He lived to be 75yrs old. Mother History Unknown: Yes Family Medical History: Myocardial Infarction (CO) Additional Family Medical History / Comment(s): Mother of a CO at about age 80yrs. Medications and Allergies Home Medications Medication Instructions Recorded Confirmed Type Montelukast [Singulair] 10 mg PO HS@209905/17/17 03/27/20 History Fluticasone/Salmeterol [Advair 1 puff INHALATION RT-BID@0900,2100 05/18/17 03/27/20 History 250-50 Diskus] Metoprolol Tartrate [Lopressor] 100 mg PO BID@0900,209907/18/17 03/27/20 History Sennosides [Senna] 8.6 mg PO DAILY@89907/18/17 03/27/20 History Nitroglycerin Sl Tabs [Nitrostat] 0.4 mg SUBLINGUAL Q5M PRN #25 tab 07/23/17 03/27/20 Rx Acetaminophen [Tylenol] 1,000 mg PO Q4H PRN 05/14/18 03/27/20 History HYDROcodone/APAP 5-325MG [Phillips 1 tab PO BID PRN #120 tab 10/06/19 03/27/20 Rx 5-325] Ferrous Sulfate [Feosol] 325 mg PO BID@0900,169911/27/19 03/27/20 History Atorvastatin [Lipitor] 40 mg PO HS@209903/27/20 03/27/20 History Bisacodyl [Dulcolax] 10 mg RECTAL Q72H PRN 03/27/20 03/27/20 History Furosemide [Lasix] 40 mg PO DAILY@89903/27/20 03/27/20 History Insulin Glargine,Hum.rec.anlog 8 unit SQ HS@209903/27/20 03/27/20 History [Lantus Solostar] Isosorbide Mononitrate ER [Imdur] 30 mg PO DAILY@89903/27/20 03/27/20 History Oxazepam [Serax] 15 mg PO BID@0900,209903/27/20 03/27/20 History Pantoprazole [Protonix] 40 mg PO BID@0900,209903/27/20 03/27/20 History Tiotropium [place] [Spiriva] 1 cap INHALATION RT-DAILY@169903/27/20 03/27/20 History Allergies Allergy/AdvReac Type Severity Reaction Status Date / Time adhesive tape Allergy Rash/Hives Verified 03/27/20 22:05 amoxicillin trihydrate Allergy Unknown Verified 03/27/20 22:05 [From Augmentin] clindamycin HCl Allergy Unknown Verified 03/27/20 22:05 [From Cleocin] clindamycin palmitate HCl Allergy Unknown Verified 03/27/20 22:05 [From Cleocin] clindamycin phosphate Allergy Unknown Verified 03/27/20 22:05 [From Cleocin] codeine Allergy Unknown Verified 03/27/20 22:05 nitrofurantoin Allergy Unknown Verified 03/27/20 22:05 [From Macrobid] nitrofurantoin Allergy Unknown Verified 03/27/20 22:05 macrocrystalline [From Macrobid] Penicillins Allergy Unknown Verified 03/27/20 22:05 potassium clavulanate Allergy Unknown Verified 03/27/20 22:05 [From Augmentin] prednisone Allergy Unknown Verified 03/27/20 22:05 quinine Allergy Unknown Verified 03/27/20 22:05 Sulfa (Sulfonamide Allergy Unknown Verified 03/27/20 22:05 Antibiotics) sulfamethoxazole Allergy Unknown Verified 03/27/20 22:05 [From Bactrim] trimethoprim [From Bactrim] Allergy Unknown Verified 03/27/20 22:05 lorazepam [From Ativan] AdvReac Confusion Verified 03/27/20 22:05 Physical Exam Vitals: Vital Signs Temp Pulse Pulse Resp BP Pulse Ox 04/01/20 12:34 68 04/01/20 12:24 68 04/01/20 09:34 68 04/01/20 09:25 68 04/01/20 08:00 98.5 F 64 18 146/67 100 04/01/20 03:49 98.1 F 69 16 135/63 98 04/01/20 00:00 97.8 F 72 20 157/70 100 03/31/20 20:21 68 03/31/20 20:09 69 99 03/31/20 20:00 98.3 F 71 18 171/75 95 03/31/20 16:00 97.5 F L 72 18 141/64 95 03/31/20 15:53 64 Intake and Output 03/31/20 04/01/20 04/01/20 22:59 06:59 14:59 Intake Total 540 Output Total 100 Balance 540 -100 Intake: Oral 540 Output: Urine 100 Other: # Voids 2 1 1 # Bowel Movements 2 Weight 46.1 kg Results 04/01/20 06:13 04/01/20 06:13 Cardiac Enzymes 04/01/20 Range/Units 06:13 AST 28 (14-36) U/L CBC 04/01/20 Range/Units 06:13 WBC 7.6 (3.8-10.6) k/uL RBC 3.49 L (3.80-5.40) m/uL Hgb 7.9 L (11.4-16.0) gm/dL Hct 27.0 L (34.0-46.0) % Plt Count 280 (150-450) k/uL Comprehensive Metabolic Panel 04/01/20 Range/Units 06:13 Sodium 138 (137-145) mmol/L Potassium 3.8 (3.5-5.1) mmol/L Chloride 98 (98-107) mmol/L Carbon Dioxide 35 H (22-30) mmol/L BUN 36 H (7-17) mg/dL Creatinine 1.26 H (0.52-1.04) mg/dL Glucose 84 (74-99) mg/dL Calcium 8.7 (8.4-10.2) mg/dL AST 28 (14-36) U/L ALT 9 (4-34) U/L Alkaline Phosphatase 90 (38-126) U/L Total Protein 6.1 L (6.3-8.2) g/dL Albumin 3.0 L (3.5-5.0) g/dL Current Medications Generic Name Dose Route Start Last Admin Trade Name Freq PRN Reason Stop Dose Admin Acetaminophen 650 mg 03/28/20 02:37 Tylenol Tab PO Q6HR PRN Mild Pain or Fever > 100.5 Hydrocodone Bitart/Acetaminophen 1 each 03/28/20 11:29 03/31/20 23:03 Phillips 5-325 PO 1 each BID PRN Administration Pain Atorvastatin Calcium 40 mg 03/28/20 21:00 03/31/20 21:14 Lipitor PO 40 mg HS@2100 [facility] Administration Bisacodyl 10 mg 03/28/20 11:29 Dulcolax RECTAL Q72H PRN Constipation Budesonide/Formoterol Fumarate 2 puff 03/28/20 21:00 04/01/20 09:25 Symbicort 80-4.5 Mcg Inhaler INHALATION 2 puff RT-BID@0900,2100 [facility] Administration Darbepoetin Adrian 40 mcg 03/30/20 14:00 03/30/20 20:49 Aranesp SQ 40 mcg Q7D [facility] Administration Diphenhydramine HCl 25 mg 03/28/20 02:38 Benadryl IVP ONCE PRN Allergic Reaction Famotidine 20 mg 03/28/20 02:38 Pepcid IV ONCE PRN Allergic Reaction Furosemide 40 mg 03/29/20 09:00 04/01/20 10:41 Lasix PO 40 mg DAILY@0900 [facility] Administration Insulin Detemir 8 unit 03/28/20 21:00 03/31/20 21:14 Levemir SQ 8 unit HS@2100 [facility] Administration Ipratropium [place] 0.5 mg 03/28/20 20:00 04/01/20 12:24 Atrovent Nebulized INHALATION 0.5 mg RT-QID [facility] Administration Isosorbide Mononitrate 30 mg 03/29/20 09:00 04/01/20 10:41 Imdur PO 30 mg DAILY@0900 [facility] Administration Lorazepam 1 mg 03/28/20 21:00 04/01/20 10:42 Ativan PO Not Given BID@0900,2099 [facility] Methylprednisolone Sodium Succinate 125 mg 03/28/20 02:38 Solu-Medrol IV ONCE PRN Allergic Reaction Metoprolol Tartrate 100 mg 03/28/20 21:00 04/01/20 10:41 Lopressor PO 100 mg BID@0900,2099 [facility] Administration Montelukast Sodium 10 mg 03/28/20 21:00 03/31/20 21:14 Singulair PO 10 mg HS@2100 [facility] Administration Naloxone HCl 0.2 mg 03/28/20 02:37 Narcan IV Q2M PRN Opioid Reversal Nitroglycerin 0.4 mg 03/28/20 11:29 Nitrostat SUBLINGUAL Q5M PRN Chest Pain Patient's Own 1 each 03/28/20 15:47 03/31/20 21:14 Medication (Serax[ PO 1 each Oxazepam 15mg Cap]) BID PRN Administration Anxiety Ondansetron HCl 4 mg 03/28/20 02:37 03/28/20 17:48 Zofran IVP 4 mg Q8HR PRN Administration Nausea And Vomiting Pantoprazole Sodium 40 mg 03/28/20 21:00 04/01/20 10:42 Protonix PO 40 mg BID@0900,2100 [facility] Administration Senna 8.6 mg 03/29/20 09:00 04/01/20 10:41 Senokot PO 8.6 mg DAILY@0900 [facility] Administration Intake and Output 03/31/20 04/01/20 04/01/20 22:59 06:59 14:59 Intake Total 540 Output Total 100 Balance 540 -100 Intake: Oral 540 Output: Urine 100 Other: # Voids 2 1 1 # Bowel Movements 2 Weight 46.1 kg 04/01/20 06:13 04/01/20 06:13
[2020-04-01 17:38] LABS: Glucose,Whole Blood 189 mg/dL (75-99)
[2020-04-01] MEDS ORDERED: FUROSEMIDE 10 MG/ML 2 ML VIAL IV ONE (20:23)
[2020-04-01 20:44] LABS: Glucose,Whole Blood 187 mg/dL (75-99)
[2020-04-01] MEDS ORDERED: LIDOCAINE 1% (10MG/ML) FOR IV START INTRADERMA PRN (20:57)
[2020-04-01] MEDS ORDERED: MIDAZOLAM 2 MG/2 ML VIAL IV PRN (20:57)
[2020-04-01] MEDS ORDERED: HYDROmorphone 0.5 MG/0.5 ML SYRINGE IVP PRN (20:57)
--- NOTE | 2020-04-01 21:14 | PN ---
PROGRESS NOTE DATE OF SERVICE: Patient is an 89-year-old pleasant white female who was diagnosed with right colon mass on recent colonoscopy done by Dr. Stone two days ago. Biopsy revealed a cecal adenocarcinoma. The patient had a CT of the abdomen and pelvis done yesterday that did not show any metastasis. Surgery following the patient closely and contemplating right hemicolectomy on Friday. The patient denies any new symptoms. PHYSICAL EXAMINATION: Appears comfortable, no apparent distress. VITAL SIGNS: Stable. Blood pressure 133/63, pulse rate 69, temperature 98.2. HEENT examination unremarkable. Conjunctivae pink. Sclerae anicteric. Oral cavity no lesions. NECK: No JVD or lymph node enlargement. CHEST was clear to auscultation. HEART: Regular rate and rhythm. ABDOMEN: Soft. Bowel sounds are positive. No organomegaly. EXTREMITIES: No pedal edema. SKIN: No rashes. NEUROLOGIC: Alert and oriented x3. No focal deficits. LABS: From today hemoglobin 7.9. CEA level is 4.1. IMPRESSION: 1. 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 Hemoglobin today 7.5 g/dL. Clinically no evidence of active bleeding. Surgery following the patient closely. CT of the abdomen did not show any evidence of liver lesions. 2. Chronic obstructive pulmonary disease. 3. Iron-deficiency anemia. RECOMMENDATIONS: 1. Discussed the biopsy findings with the patient. Surgery is following her closely and apparently she is scheduled for surgery on Friday. 2. Monitor CBC on a daily basis and transfuse if the hemoglobin is less than 8. 3. Will sign off at this time. Please call us if needed. Thank you for this consultation. MMODL / IJN: [id number] /
[2020-04-01] MEDS: INSULIN DETEMIR (LEVEMIR) 100 UNIT/ML SYR SQ SCH (21:48)
[2020-04-01] MEDS: SERAX PO PRN (21:48)
[2020-04-01] MEDS: LACTATED RINGERS 1,000 ML IV SCH (21:48)
[2020-04-01] MEDS: MONTELUKAST 10 MG TAB PO SCH (21:48)
[2020-04-01] MEDS: HYDROcodone/APAP 5-325MG 1 EACH TAB PO PRN (21:48)
[2020-04-01] MEDS: ATORVASTATIN 40 MG TAB PO SCH (21:48)
[2020-04-02 06:00] LABS: Glucose,Whole Blood 102 mg/dL (75-99)
[2020-04-02 06:29] LABS: Anisocytosis Moderate; Basophils # (A) 0.1 k/uL (0-0.2); Basophils % (A) 1 %; Eosinophils # (A) 0.7 k/uL (0-0.7); Eosinophils % (A) 8 %; HCT 29.3 % (34.0-46.0); HGB 8.9 gm/dL (11.4-16.0); Hypochromasia Marked; Lymphocytes # (A) 1.9 k/uL (1.0-4.8); Lymphocytes % (A) 20 %; MCH 23.9 pg (25.0-35.0); MCHC 30.5 g/dL (31.0-37.0); MCV 78.4 fL (80.0-100.0); Mean Platelet Volume 7.9; Microcytosis Slight; Monocytes # (A) 0.9 k/uL (0-1.0); Monocytes % (A) 9 %; Neutrophils # (A) 5.7 k/uL (1.3-7.7); Neutrophils % (A) 60 %; Platelet Count 253 k/uL (150-450); Poikilocytosis Slight; RBC 3.74 m/uL (3.80-5.40); WBC 9.5 k/uL (3.8-10.6)
[2020-04-02 07:06] LABS: Calcium 8.8 mg/dL (8.4-10.2); Potassium 4.5 mmol/L (3.5-5.1); Total Bilirubin 0.7 mg/dL (0.2-1.3)
--- NOTE | 2020-04-02 08:00 | ECHOF ---
Referral Reason:pre op MEASUREMENTS -------- HEIGHT: 147.3 cm WEIGHT: 45.8 kg BP: 146/67 RVIDd: 3.2 cm (< 3.3) IVSd: 1.2 cm (0.6 - 1.1) LVIDd: 3.3 cm (3.9 - 5.3) LVPWd: 1.4 cm (0.6 - 1.1) IVSs: 1.3 cm LVIDs: 2.5 cm LVPWs: 2.4 cm LAESV Index (A-L): 47.28 ml/m Ao Diam: 2.5 cm (2.0 - 3.7) AV Cusp: 1.3 cm (1.5 - 2.6) MV EXCURSION: 13.536 mm (> 18.000) MV EF SLOPE: 32 mm/s (70 - 150) EPSS: 1.4 cm MV E Isacc: 1.50 m/s MV DecT: 139 ms MV A Isacc: 1.72 m/s MV E/A Ratio: 0.87 AV maxP.02 mmHg AV meanP.15 mmHg RAP: 5.00 mmHg RVSP: 39.01 mmHg FINDINGS -------- This was a technically adequate study. The left ventricular size is normal. There is moderate concentric left ventricular hypertrophy. O verall left ventricular systolic function is low-normal with, an EF between 50 - 55 %. Left ventric ular fillimg pressure cannot be estimated due to severe mitral annular calcification. The right ventricle is normal in size. LA is severely dilated >40 ml/m2 The right atrial size is normal. Interatrial and interventricular septum intact. Trace amount of aortic regurgitation. There is lyqhunzp-rl-ugmtkq aortic stenosis present. Peak/ mean gradient across the Aortic Valve is 68.02mmHg / 39.15mmHg. Severe mitral annular calcification present. Bumhyuaj-ca-uliqpn mitral regurgitation is present. Pqrb-nn-kamjjnmp tricuspid regurgitation present. There is mild to moderate pulmonary hypertension. The right ventricular systolic pressure, as measured by Doppler, is 39.01mmHg. There is no pulmonic regurgitation present. The aortic root size is normal. IVC Not well visulized. There is no pericardial effusion. CONCLUSIONS -------- 1. This was a technically adequate study. 2. The left ventricular size is normal. 3. There is moderate concentric left ventricular hypertrophy. 4. Overall left ventricular systolic function is low-normal with, an EF between 50 - 55 %. 5. Left ventricular fillimg pressure cannot be estimated due to severe mitral annular calcification. 6. The right ventricle is normal in size. 7. LA is severely dilated >40 ml/m2 8. The right atrial size is normal. 9. Interatrial and interventricular septum intact. 10. Trace amount of aortic regurgitation. 11. There is omsxfhzb-rt-kcrrsj aortic stenosis present. 12. Peak/mean gradient across the Aortic Valve is 68.02mmHg / 39.15mmHg. 13. Severe mitral annular calcification present. 14. Pakwnpwm-cv-umsrft mitral regurgitation is present. 15. Ipmo-zr-bzczhxzu tricuspid regurgitation present. 16. There is mild to moderate pulmonary hypertension. 17. The right ventricular systolic pressure, as measured by Doppler, is 39.01mmHg. 18. There is no pulmonic regurgitation present. 19. The aortic root size is normal. 20. IVC Not well visulized. 21. There is no pericardial effusion. SERVICE ORDER TAKER: Merari Salinas RDCS
[2020-04-02] MEDS: IPRATROPIUM 0.5 MG/2.5 ML NEBU INHALATION SCH ×4 (08:03→20:34)
[2020-04-02] MEDS: SYMBICORT 80-4.5 MCG INHALER INHALATION SCH ×2 (08:03→20:34)
[2020-04-02] MEDS: SENNOSIDES 8.6 MG TAB PO SCH (10:28)
[2020-04-02] MEDS: LORazepam 1 MG TAB PO SCH ×2 (10:28→21:39)
[2020-04-02] MEDS: ISOSORBIDE MONONITRATE ER 30 MG TAB.ER.24H PO SCH (10:28)
[2020-04-02] MEDS: FUROSEMIDE 40 MG TAB PO SCH (10:28)
[2020-04-02] MEDS: PANTOPRAZOLE 40 MG TABLET PO SCH ×2 (10:29→21:38)
[2020-04-02] MEDS: METOPROLOL TARTRATE 50 MG TAB PO SCH ×2 (10:29→21:39)
--- NOTE | 2020-04-02 10:39 | P.PN ---
Subjective Progress Note Date: 04/02/20 Principal diagnosis: Right colon mass Patient without new complaints. Denies nausea or vomiting. No pain. White blood cell count 9.5, hemoglobin improved at 8.9. Objective - Vital Signs Vital signs: Vital Signs Temp 98.8 F 04/02/20 04:00 Pulse 68 04/02/20 08:16 Resp 18 04/02/20 04:00 BP 116/75 04/02/20 04:00 Pulse Ox 99 04/02/20 04:00 Intake & Output 04/01/20 04/02/20 04/02/20 18:59 06:59 18:59 Intake Total 550 Output Total 150 100 Balance -150 450 Weight 46.8 kg Intake: Oral 240 Blood Product 310 Rc As-3 Unit 310 [id number] Output: Urine 150 100 Other: Voiding Method Bedside Commode Bedside Commode # Voids 1 1 # Bowel Movements 2 1 - Exam Abdomen: Soft, nontender, nondistended - Labs CBC & Chem 7: 04/02/20 05:55 04/02/20 05:55 Labs: Abnormal Lab Results - Last 24 Hours (Table) 04/01/20 04/01/20 04/01/20 Range/Units 12:33 13:59 17:30 RBC (3.80-5.40) m/uL Hgb (11.4-16.0) gm/dL Hct (34.0-46.0) % MCV (80.0-100.0) fL MCH (25.0-35.0) pg MCHC (31.0-37.0) g/dL RDW (11.5-15.5) % Carbon Dioxide (22-30) mmol/L BUN (7-17) mg/dL Creatinine (0.52-1.04) mg/dL POC Glucose (mg/dL) 160 H 189 H (75-99) mg/dL Total Protein (6.3-8.2) g/dL Albumin (3.5-5.0) g/dL Crossmatch See Detail 04/01/20 04/02/20 04/02/20 Range/Units 20:42 05:55 05:55 RBC 3.74 L (3.80-5.40) m/uL Hgb 8.9 L (11.4-16.0) gm/dL Hct 29.3 L (34.0-46.0) % MCV 78.4 L (80.0-100.0) fL MCH 23.9 L (25.0-35.0) pg MCHC 30.5 L (31.0-37.0) g/dL RDW 21.0 H (11.5-15.5) % Carbon Dioxide 36 H (22-30) mmol/L BUN 47 H (7-17) mg/dL Creatinine 1.19 H (0.52-1.04) mg/dL POC Glucose (mg/dL) 187 H (75-99) mg/dL Total Protein 6.0 L (6.3-8.2) g/dL Albumin 3.0 L (3.5-5.0) g/dL Crossmatch 04/02/20 Range/Units 05:59 RBC (3.80-5.40) m/uL Hgb (11.4-16.0) gm/dL Hct (34.0-46.0) % MCV (80.0-100.0) fL MCH (25.0-35.0) pg MCHC (31.0-37.0) g/dL RDW (11.5-15.5) % Carbon Dioxide (22-30) mmol/L BUN (7-17) mg/dL Creatinine (0.52-1.04) mg/dL POC Glucose (mg/dL) 102 H (75-99) mg/dL Total Protein (6.3-8.2) g/dL Albumin (3.5-5.0) g/dL Crossmatch Assessment and Plan (1) Cecum mass Narrative/Plan: (Clear liquids today and also begin bowel prep for planned right hemicolectomy tomorrow. Repeat labs tomorrow morning. Current Visit: Yes Status: Acute Code(s): K63.89 - OTHER SPECIFIED DISEASES OF INTESTINE SNOMED Code(s): 596325842
[2020-04-02] MEDS ORDERED: PEG 3350-NA SULF,BICARB,CL/KCL 4,000 ML BOTTLE PO ONE (11:00)
[2020-04-02 11:35] LABS: Glucose,Whole Blood 189 mg/dL (75-99)
--- NOTE | 2020-04-02 12:42 | PN ---
PROGRESS NOTE DATE OF SERVICE: April 02, 2020 This is an 89-year-old female with a history of anemia secondary to iron deficiency. She was recently discovered on CT scan and colonoscopy to have a cecal mass. The plan is for surgery potentially with colectomy on Friday with Dr. Govea. She also has a history of esophageal stricture noted on EGD. The patient has stable nonspecific pulmonary nodules. Her primary care provider is Dr. Cagle. Other medical problems will be listed. Surgery is apparently on Friday with Dr. Govea. I believe she has been cleared by Cardiology. From the pulmonary standpoint, she is currently stable. Her colonic biopsy done by Dr. Stone on this admission was positive for adenocarcinoma with high-grade dysplasia. PHYSICAL EXAMINATION: VITAL SIGNS: Current vital signs are reviewed. Temperature 98.8. Heart rate 68, respiratory rate 18, blood pressure 116/75 mean 88. 3 L saturation 99%. Appears in no acute distress. HEENT: Examination is grossly unremarkable. NECK: Supple. Full range of motion. No adenopathy or thyromegaly. Neck veins flat. CARDIOVASCULAR: Examination reveals regular rhythm rate. Heart rate 68 beats per minute. A soft systolic murmur is noted. S1, S2 normal. LUNGS: Reveal mostly clear breath sounds. A few scattered mild rhonchi. No wheezes or crackles. ABDOMEN: Soft. Bowel sounds are heard. EXTREMITIES are intact. No cyanosis, clubbing, or edema. SKIN: Without rash. NEUROLOGIC: Examination is brief but nonfocal. LABS: Reviewed. White count 9.5, hemoglobin 8.9, hematocrit 29.3, platelet count 353,000. Sodium 141, potassium 4.5, chloride 99. CO2 36. Anion gap is 6. BUN and creatinine were [address] from March 31 was reviewed. Microbiology is negative or pending. Medications are reviewed. ASSESSMENT: 1. Cecal mass, biopsy proven to be adenocarcinoma with high-grade dysplasia, and anticipated colectomy on Friday, with Dr. Govea. 2. Esophageal stricture, noted on EGD. 3. Anemia, secondary to iron deficiency and blood loss. 4. Acute on chronic hypoxemic respiratory failure, secondary to COPD and pulmonary fibrosis, both stable. 5. Nonspecific pulmonary nodularity with CT scan evidence of stability. 6. Coronary artery disease with previous stent placement. 7. Diabetes mellitus. 8. Hypertension. 9. Hyperlipidemia. 10.Deafness. 11.Osteoarthritis. 12.Renal insufficiency. 13.History of transient ischemic attack. 14.Chronic back pain. PLAN: The patient seems to be doing relatively well. She is clear from our standpoint. Surgeries anticipated to occur on Friday. Additional recommendations and suggestions are forthcoming. Prognosis is guarded given her age and multitude of medical problems. We will continue to follow. MMODL / IJN: [id number] /
--- NOTE | 2020-04-02 13:46 | P.PN ---
Subjective Progress Note Date: 04/02/20 History of present illness: This is an 89-year-old female past medical history significant for coronary artery disease status post multiple PCI, paroxysmal atrial fibrillation off anticoagulation due to bleeding, hypertension, chronic diastolic heart failure with EF of 50-55%, dyslipidemia, moderate aortic stenosis, severe mitral regurgitation, moderate to severe tricuspid regurgitation, acute non-ST elevated myocardial infarction in November 2019 with plan for him medical management. A previous heart catheterization in 2018 revealed LAD widely patent at the site of previous stenting, diffuse disease in the previous stented RCA, nondominant circumflex with a 35-40% stenosis. History of diabetes mellitus type 2. Patient currently resides at [facility]. Patient came into [facility] on March 28 due to anemia. She has had a workup with GI underwent upper and lower endoscopies that found a colon mass with biopsy positive for adenocarcinoma. Patient is scheduled for partial colectomy by Dr. Govea on Friday. Hemoglobin is currently stable at 7.9, BUN 36 creatinine 1.26. She was transfused 1 unit of packed RBCs on March 28. Chest CT from yesterday revealed lung nodularity is stable. Coronary artery disease and cardiomegaly. Emphysema. Stable findings with the exception of interval development of additional thoracic osteoporotic compression fractures. At the time of evaluation, patient denies shortness of breath, lightheadedness or dizziness. She still does state that she has had some chest pain on the left side of her chest with tenderness to palpation. 04/02: Echocardiogram revealed EF of 50-55%, moderate concentric left hypertrophy, trace aortic regurgitation, moderate to severe aortic stenosis, moderate to severe mitral regurgitation, mild to moderate tricuspid regurgitation, [id number] pulmonary hypertension. Repeat blood work reveals hemoglobin of 8.9, BUN 47 creatinine 1.19. The patient today is complaining of back pain. She denies having any chest pain or shortness of breath no lower extremity edema. She is scheduled for colectomy tomorrow for cecal mass. Physical examination: Gen: This is an 89-year-old female. Patient is resting in a recliner and appears to be comfortable and in no acute distress. VS: Afebrile, heart rate 68, blood pressure 116/75, pulse ox 99% on 3 L nasal cannula. HEENT: Head is atraumatic, normocephalic. Pupils equal, round. Sclerae is anicteric. NECK: Supple. No JVD. No lymphadenopathy. No thyromegaly. LUNGS: Clear to auscultation. No wheezes or rhonchi. No intercostal retractions. HEART: Regular rate and rhythm. Systolic murmur. ABDOMEN: Soft. Bowel sounds are present. No masses. No tenderness. EXTREMITIES: No pedal edema. No calf tenderness. NEUROLOGICAL: Patient is awake, alert and oriented x3. Cranial nerves 2 through 12 are grossly intact. Assessment: Chronic diastolic heart failure with EF of 50-55% Moderate pulmonary hypertension Moderate aortic stenosis, severe mitral regurgitation, moderate to severe tricuspid regurgitation History of acute myocardial infarction and coronary artery disease status post PCI Atrial fibrillation, paroxysmal, not on anticoagulation due to GI bleeding Hypertension Hyperlipidemia Cecal mass, adenocarcinoma Esophageal stricture on EGD Acute anemia Plan: Patient is scheduled for colectomy on Friday with Dr. Govea Continue Lopressor 100 mg twice daily, Imdur 30 mg daily, Lasix 40 mg daily, Lipitor 40 mg daily The patient is at increased risk for perioperative complications due to aortic stenosis but does not have any active chest pain, heart failure, syncope. She is not currently in overt heart failure. While she is at increased risk there are no absolute contraindications to proceeding with surgery. Nurse practitioner note has been reviewed, I agree with documented findings and plan of care. Patient was seen and examined. Objective - Vital Signs Vital signs: Vital Signs Temp 98.8 F 04/02/20 04:00 Pulse 68 04/02/20 11:56 Resp 18 04/02/20 04:00 BP 116/75 04/02/20 04:00 Pulse Ox 99 04/02/20 04:00 Intake & Output 04/01/20 04/02/20 04/02/20 18:59 06:59 18:59 Intake Total 550 Output Total 150 100 Balance -150 450 Weight 46.8 kg Intake: Oral 240 Blood Product 310 Rc As-3 Unit 310 [id number] Output: Urine 150 100 Other: Voiding Method Bedside Commode Bedside Commode # Voids 1 1 # Bowel Movements 2 1 - Labs CBC & Chem 7: 04/02/20 05:55 04/02/20 05:55 Labs: Abnormal Lab Results - Last 24 Hours (Table) 04/01/20 04/01/20 04/01/20 Range/Units 13:59 17:30 20:42 RBC (3.80-5.40) m/uL Hgb (11.4-16.0) gm/dL Hct (34.0-46.0) % MCV (80.0-100.0) fL MCH (25.0-35.0) pg MCHC (31.0-37.0) g/dL RDW (11.5-15.5) % Carbon Dioxide (22-30) mmol/L BUN (7-17) mg/dL Creatinine (0.52-1.04) mg/dL POC Glucose (mg/dL) 189 H 187 H (75-99) mg/dL Total Protein (6.3-8.2) g/dL Albumin (3.5-5.0) g/dL Crossmatch See Detail 04/02/20 04/02/20 04/02/20 Range/Units 05:55 05:55 05:59 RBC 3.74 L (3.80-5.40) m/uL Hgb 8.9 L (11.4-16.0) gm/dL Hct 29.3 L (34.0-46.0) % MCV 78.4 L (80.0-100.0) fL MCH 23.9 L (25.0-35.0) pg MCHC 30.5 L (31.0-37.0) g/dL RDW 21.0 H (11.5-15.5) % Carbon Dioxide 36 H (22-30) mmol/L BUN 47 H (7-17) mg/dL Creatinine 1.19 H (0.52-1.04) mg/dL POC Glucose (mg/dL) 102 H (75-99) mg/dL Total Protein 6.0 L (6.3-8.2) g/dL Albumin 3.0 L (3.5-5.0) g/dL Crossmatch 04/02/20 Range/Units 11:29 RBC (3.80-5.40) m/uL Hgb (11.4-16.0) gm/dL Hct (34.0-46.0) % MCV (80.0-100.0) fL MCH (25.0-35.0) pg MCHC (31.0-37.0) g/dL RDW (11.5-15.5) % Carbon Dioxide (22-30) mmol/L BUN (7-17) mg/dL Creatinine (0.52-1.04) mg/dL POC Glucose (mg/dL) 189 H (75-99) mg/dL Total Protein (6.3-8.2) g/dL Albumin (3.5-5.0) g/dL Crossmatch
[2020-04-02 16:50] LABS: Glucose,Whole Blood 163 mg/dL (75-99)
[2020-04-02 19:52] LABS: Glucose,Whole Blood 210 mg/dL (75-99)
[2020-04-02] MEDS: ATORVASTATIN 40 MG TAB PO SCH (21:39)
[2020-04-02] MEDS: MONTELUKAST 10 MG TAB PO SCH (21:39)
[2020-04-02] MEDS: INSULIN DETEMIR (LEVEMIR) 100 UNIT/ML SYR SQ SCH (21:39)
[2020-04-03] MEDS: LACTATED RINGERS 1,000 ML IV SCH ×2 (01:06→20:07)
[2020-04-03 06:11] LABS: Glucose,Whole Blood 75 mg/dL (75-99)
[2020-04-03 06:59] LABS: Anisocytosis Moderate; Basophils % (A) 0 %; Eosinophils # (A) 0.9 k/uL (0-0.7); Eosinophils % (A) 10 %; HCT 30.9 % (34.0-46.0); HGB 9.7 gm/dL (11.4-16.0); Hypochromasia Marked; Lymphocytes % (A) 21 %; MCHC 31.4 g/dL (31.0-37.0); MCV 79.4 fL (80.0-100.0); Microcytosis Slight; Monocytes # (A) 0.8 k/uL (0-1.0); Monocytes % (A) 9 %; Neutrophils # (A) 5.3 k/uL (1.3-7.7); Neutrophils % (A) 58 %; Platelet Count 279 k/uL (150-450); Poikilocytosis Slight; RBC 3.89 m/uL (3.80-5.40); RDW 21.1 % (11.5-15.5); WBC 9.2 k/uL (3.8-10.6)
[2020-04-03] MEDS: IPRATROPIUM 0.5 MG/2.5 ML NEBU INHALATION SCH ×4 (08:25→19:24)
[2020-04-03] MEDS: SYMBICORT 80-4.5 MCG INHALER INHALATION SCH ×2 (08:40→19:25)
[2020-04-03] MEDS: METOPROLOL TARTRATE 50 MG TAB PO SCH ×2 (09:22→20:07)
[2020-04-03] MEDS: ISOSORBIDE MONONITRATE ER 30 MG TAB.ER.24H PO SCH (09:22)
[2020-04-03] MEDS: PANTOPRAZOLE 40 MG TABLET PO SCH ×2 (09:34→20:07)
[2020-04-03] MEDS: SENNOSIDES 8.6 MG TAB PO SCH (09:34)
[2020-04-03] MEDS: FUROSEMIDE 40 MG TAB PO SCH (09:34)
[2020-04-03] MEDS ORDERED: LACTATED RINGERS 1,000 ML IV ONE ×2 (11:30→15:21)
[2020-04-03] MEDS ORDERED: IV FLUID CONTINUATION 1,000 ML IV ONE (11:30)
[2020-04-03] MEDS ORDERED: ONDANSETRON 4 MG/2 ML VIAL ONE (11:48)
[2020-04-03] MEDS ORDERED: ONDANSETRON 4 MG/2 ML VIAL IVP ONE (11:52)
[2020-04-03] MEDS ORDERED: MIDAZOLAM 2 MG/2 ML VIAL IVP ONE ×2 (12:11→12:20)
[2020-04-03] MEDS ORDERED: NALBUPHINE 10 MG/ML (1 ML AMP) IV PRN (12:36)
[2020-04-03] MEDS ORDERED: NALOXONE 0.4 MG/ML 1 ML VIAL IV PRN (12:36)
--- NOTE | 2020-04-03 12:59 | P.PN ---
Subjective Progress Note Date: 04/03/20 Principal diagnosis: Anemia secondary to microcytic hypochromic anemia The patient is seen today 03/30/2020 in follow-up on the selective care unit. She is currently resting comfortably in bed. Awake and alert in no acute distress. Denies any worsening shortness of breath cough or congestion. No noted bleeding. White count 8.6. Hemoglobin 7.9. Sodium 136. Potassium 3.8. Creatinine 1.46. She is status post 1 unit of packed red blood cells this admission. Plan is for EGD/colonoscopy today. On 03/31/2020 patient seen in follow-up on selective care unit, she is awake and alert, in no acute distress, patient is extremely hard of hearing which makes communicating with her very difficult. Her breathing is comfortable, she is currently on 2 L of oxygen with a pulse ox of 99 200%, lung sounds are clear. No rhonchi, no wheezing. Yesterday patient could not complete her EGD related to stricture, and procedure was aborted, colonoscopy revealed a cecal mass, stat us post biopsies. The mass was suspicious for neoplasm. CT of abdomen and pelvis has been completed showing soft tissue at the level of the cecum, and nonspecific pulmonary nodularity, with 8 mm nodular density in the region of the lingula as well as the 1.5 cm nodular density in the region of the right middle lobe which could be postinflammatory in nature. Dedicated computed tomography scan of the chest was advised. On 04/03/2020 patient seen in follow-up on selective care unit, she is sitting up in the chair, in no acute distress, she is currently on 2 L of oxygen pulse ox of 99%, hemodynamically stable, she is afebrile, her abdomen is soft, although somewhat distended. 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 His labs have been reviewed, with blood cell count is 9.2, hemoglobin is 9.7. Patient is status post transfusion with 2 units of packed red blood cells this admission. Denies any chest pain, she does admit to being somewhat short of breath, lung sounds reveal faint wheezes in the upper lobes. He is on breathing treatments, Symbicort, she is on maintenance dose of oral Lasix. Patient has not had any new chest x-rays since admission Objective - Vital Signs Vital signs: Vital Signs Temp 97.6 F 04/03/20 08:05 Pulse 66 04/03/20 11:43 Resp 16 04/03/20 11:43 BP 150/63 04/03/20 11:43 Pulse Ox 99 04/03/20 11:43 Intake & Output 04/02/20 04/03/20 04/03/20 18:59 06:59 18:59 Intake Total 360 0 Output Total 210 Balance 360 -210 0 Weight 46.9 kg Intake: IV 0 Oral 360 Output: Urine 210 Other: Voiding Method Bedside Commode Bedside Commode # Voids 2 1 # Bowel Movements 2 1 - Exam GENERAL EXAM: Alert, very pleasant, 89-year-old white female on 3 L of oxygen with pulse ox of 99%, comfortable in no apparent distress. Patient is extremely hard of hearing HEAD: Normocephalic/atraumatic. EYES: Normal reaction of pupils, equal size. Conjunctiva pink, sclera white. NOSE: Clear with pink turbinates. THROAT: No erythema or exudates. NECK: No masses, no JVD, no thyroid enlargement, no adenopathy. CHEST: No chest wall deformity. Symmetrical expansion. LUNGS: Equal air entry with no crackles, wheeze, rhonchi or dullness. CVS: Regular rate and rhythm, normal S1 and S2, no gallops, no murmurs, no rubs ABDOMEN: Soft, nontender. No hepatosplenomegaly, normal bowel sounds, no guarding or rigidity. EXTREMITIES: No clubbing, no edema, no cyanosis, 2+ pulses and upper and lower extremities. MUSCULOSKELETAL: Muscle strength and tone normal. SPINE: No scoliosis or deformity SKIN: No rashes CENTRAL NERVOUS SYSTEM: Alert and oriented -3. No focal deficits, tone is normal in all 4 extremities. PSYCHIATRIC: Alert and oriented -3. Appropriate affect. Intact judgment and insight. - Labs CBC & Chem 7: 04/03/20 06:07 04/02/20 05:55 Labs: Abnormal Lab Results - Last 24 Hours (Table) 04/02/20 04/02/20 04/03/20 Range/Units 16:47 19:51 06:07 Hgb 9.7 L (11.4-16.0) gm/dL Hct 30.9 L (34.0-46.0) % MCV 79.4 L (80.0-100.0) fL RDW 21.1 H (11.5-15.5) % Eosinophils # 0.9 H (0-0.7) k/uL POC Glucose (mg/dL) 163 H 210 H (75-99) mg/dL Assessment and Plan Plan: Assessment: 1 Anemia secondary to microcytic hypochromic anemia with iron deficiency anemia, and adenocarcinoma with high-grade dysplasia, 2 cecal mass, status post colonoscopy with biopsies, and biopsies were positive for adenocarcinoma with high-grade dysplasia, awaiting colectomy today by Dr. Govea 3 esophageal stricture 4 Acute on chronic hypoxemic respiratory failure secondary to extensive pulmonary fibrosis and COPD 5 nonspecific pulmonary nodularity noted on the CT of the abdomen and pelvis, with 8 mm nodular density in the lingula and 1.5 cm nodular density in the region of the right middle lobe 6 Coronary artery disease with previous stent placement 7 Diabetes mellitus 8 Hypertension 9 Hyperlipidemia 10 Hearing disorder 11 Osteoarthritis 12 Renal insufficiency 13 History of TIA 14 History of esophageal stricture with previous dilatation 15 Chronic back pain Plan: Patient is at an increased risk for perioperative complications related to multiple comorbidities, and underlying extensive pulmonary fibrosis, and COPD, we'll continue to closely follow her course, there is possibility she may need I CU admission following her surgery. I performed a history & physical examination of the patient and discussed their management with my nurse practitioner, Josephine Winkler. I reviewed the nurse practitioner's note and agree with the documented findings and plan of care. Lung sounds are positive for clear diminished at bases. The findings and the impression was discussed with the patient. I attest to the documentation by the nurse practitioner. Time with Patient: Less than 30
[2020-04-03] MEDS ORDERED: fentaNYL (PF) 50 MCG/ML 2 ML AMP IVP ONE (14:04)
--- NOTE | 2020-04-03 14:39 | PN ---
PROGRESS NOTE Mrs. Ulloa is in sinus rhythm with bundle branch block. She is resting comfortably, going for a total colectomy by Dr. Govea. Prognosis remains poor. Risk is very high. I am recommending cautious fluid administration and optimal BP control perioperatively where patient's risk is substantially high and she is aware of it as is her family. Vitals are stable, no JVD. S1, S2 heard normally, short systolic murmur noted. Lungs reveal diminished air entry. Abdomen and lower extremity exam is unchanged. MMODL / IJN: [id number] /
[2020-04-03] MEDS ORDERED: SUCCINYLCHOLINE CHLORIDE 100 MG/5 ML SYR IV ONE (14:42)
[2020-04-03] MEDS ORDERED: PROPOFOL 10 MG/ML 20 ML VIAL IV ONE (14:42)
[2020-04-03] MEDS ORDERED: LIDOCAINE 1% INJ 10MG/ML (20 ML MDV) ONE (14:42)
[2020-04-03] MEDS ORDERED: ROCURONIUM BROMIDE 10 MG/ML 5 ML VIAL IV ONE (14:42)
[2020-04-03] MEDS ORDERED: GLYCOPYRROLATE 0.2 MG/ML 2 ML VIAL ONE (14:42)
[2020-04-03] MEDS ORDERED: fentaNYL (PF) 50 MCG/ML 2 ML AMP ONE (14:42)
[2020-04-03] MEDS ORDERED: NEOSTIGMINE 1 MG/ML 10 ML VIAL ONE (14:42)
[2020-04-03] MEDS ORDERED: metroNIDAZOLE-NS PMX 500 MG in SALINE 1 100ML.BAG IVPB ONE (15:36)
[2020-04-03] MEDS ORDERED: ONDANSETRON 4 MG/2 ML VIAL IVP PRN (15:58)
[2020-04-03] MEDS ORDERED: METOCLOPRAMIDE 5 MG/ML 2 ML VIAL IVP PRN (15:58)
--- NOTE | 2020-04-03 15:58 | P.OP ---
Description of Procedure: Date of Procedure: 04/03/20 Preoperative Diagnosis: Right colon mass Postoperative Diagnosis: Right colon mass Procedure(s) Performed: Right colectomy Anesthesia: MAC Surgeon: Sander Govea Estimated Blood Loss (ml): 25 Pathology: other (Right colon) Condition: stable Disposition: PACU Description of Procedure: The patient's placed on the operating table in supine position. She received general anesthesia.. Her abdomen was prepped and draped usual sterile fashion. The abdomen was entered through a midline incision. There was a incarcerated ventral hernia located near the umbilicus. The trochars used to divide the layers abdominal wall. The abdomen was entered. The cecum had been tattooed by the endoscopist. The liver appeared normal. The small bowel appeared normal. The remainder the colon. Normal. The right colon was immobilized midline the white line of Toldt. The proximal transverse colon was then transected the GI stapler. The distal terminal ileum was injected stented with a GI stapler. Then using the Enseal device the mesentery the bowel was divided and specimen sent to pathology. A [id number] functional end-to-end staple anastomosis then created using BROCK and TA stapler. 3-0 GI silk sutures as a crotch stitch. The abdomen was areas of bleeding seen. The fascia was closed with looped #1 PDS suture. The ventral hernias repaired during fascial closure. The skin was closed heladio. Patient top she will was sent to recovery room stable condition. Additional CC's: Dai Bacon
[2020-04-03] MEDS: ROPIVACAINE 250 MG, HYDROMORPHONE (PF) 5 MG in SODIUM CHLORIDE 0.9% 200 ML EPIDURAL PRN ×2 (16:19→16:33)
[2020-04-03] MEDS ORDERED: ALBUTEROL NEBULIZED 2.5 MG/3 ML INHALATION ONE (17:00)
--- NOTE | 2020-04-03 17:03 | P.PN ---
Subjective Progress Note Date: 04/03/20 Principal diagnosis: Anemia and now cecal mass Sitting up in chair today nervous for surgery. pleasant Objective - Vital Signs Vital signs: Vital Signs Temp 97.9 F 04/03/20 16:02 Pulse 77 04/03/20 16:30 Resp 18 04/03/20 16:30 BP 179/71 04/03/20 16:30 Pulse Ox 100 04/03/20 16:30 Intake & Output 04/02/20 04/03/20 04/03/20 18:59 06:59 18:59 Intake Total 360 1300 Output Total 210 1025 Balance 360 -210 275 Weight 46.9 kg 46.9 kg Intake: IV 1300 Oral 360 Output: Urine 210 1000 Estimated Blood Loss 25 Other: Voiding Method Bedside Commode Bedside Commode # Voids 2 1 # Bowel Movements 2 1 - Exam - General well developed, well nourished, no distress - Eyes PERRL - ENT normal pinna - Neck no masses - Respiratory normal expansion - Cardiovascular Rhythm: regular - Abdomen Abdomen: soft, non tender distended Ext: BLE edema Psch: Poor historian. - Labs CBC & Chem 7: 04/03/20 06:07 04/02/20 05:55 Labs: Abnormal Lab Results - Last 24 Hours (Table) 04/02/20 04/03/20 Range/Units 19:51 06:07 Hgb 9.7 L (11.4-16.0) gm/dL Hct 30.9 L (34.0-46.0) % MCV 79.4 L (80.0-100.0) fL RDW 21.1 H (11.5-15.5) % Eosinophils # 0.9 H (0-0.7) k/uL POC Glucose (mg/dL) 210 H (75-99) mg/dL Assessment and Plan Plan: Assessment and Plan Microcytic hypochromic anemia - Multifactorial Iron deficiency with component of CKD and now GI Mass responsible for Blood loss component - Parental Iron to continue - Daily CBC - 4 week outpatient hematology follow-up - GI Work-up was performed and 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 - General surgery plan is for right colectomy today - Path from biopsies pending Chronic kidney disease (unknown stage) - Erythropoietin supplementation for of chronic kidney disease initiated, first dose of Aranesp 40 mg to be given today. - It was confirmed that the half-way is able to administer Aranesp. - Orders have been placed in the discharge paperwork for same. - Plan for surgical resection today of newly found mass
[2020-04-03 17:13] LABS: Glucose,Whole Blood 137 mg/dL (75-99)
--- NOTE | 2020-04-03 17:31 | P.PN ---
Subjective Progress Note Date: 04/03/20 Sonal Ulloa is an 89-year-old female patient who presented to the emergency department today for evaluation of low hemoglobin. Patient is currently a resident at [facility]. She had labs performed yesterday and hemoglobin was 6.1. she was sent to [facility] emergency room for evaluation , she received 1 unit of red blood cell transfusion in the emergency room and she started developing shortness of breath repeat hemoglobin was 9.1 patient has a known history of iron deficiency anemia . She was admitted to medical floor gastroenterology consultation and hematology consultation were requested for evaluation of chronic anemia . 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 Patient is otherwise stable there is no fever or chills no headache or dizziness no chest pain no shortness of breath no cough no nausea or vomiting no abdominal pain no diarrhea and no urinary symptoms. On 03/31/2020 patient was seen and examined on the medical floor, there is no fever or chills no headache or dizziness no chest pain no shortness of breath no cough no nausea or vomiting no dominant pain nor diarrhea no burning with urination no frequency or urgency no hematuria, hemoglobin today is 7.6 white blood count 8.0 potassium 3. . On 04/01/2020 patient was seen and examined on the medical floor she is alert and oriented 3 in no apparent distress she is very hard of hearing, she denies any pain or discomfort at this time there is no chest pain or shortness of breath no cough no nausea or vomiting no abdominal pain no diarrhea no blood in the stools no burning with urination no frequency or urgency and no hematuria On 04/02/2020 patient was seen and examined on the medical floor she is feeling well there is no fever or chills no headache or dizziness no chest pain no shortness of breath no cough no nausea or vomiting no abdominal pain no diarrhea no burning with urination no frequency or urgency no hematuria she is scheduled for surgery tomorrow 04/03/2020 patient was seen and examined on the medical floor she is alert and oriented 3 in no apparent distress there is no fever or chills no headache or dizziness no chest pain no shortness of breath no cough no nausea or vomiting no abdominal pain no diarrhea no burning with urination no frequency or urgency no hematuria patient is going for surgery today Objective - Vital Signs Vital signs: Vital Signs Temp 97.6 F 04/03/20 08:05 Pulse 66 04/03/20 11:43 Resp 16 04/03/20 11:43 BP 150/63 04/03/20 11:43 Pulse Ox 99 04/03/20 11:43 Intake & Output 04/02/20 04/03/20 04/03/20 18:59 06:59 18:59 Intake Total 360 500 Output Total 210 Balance 360 -210 500 Weight 46.9 kg 46.9 kg Intake: IV 500 Oral 360 Output: Urine 210 Other: Voiding Method Bedside Commode Bedside Commode # Voids 2 1 # Bowel Movements 2 1 - Exam In general patient is alert and oriented 3 in no apparent distress HEENT head normocephalic and atraumatic Neck is supple no JVD no goiter no lymphadenopathy Chest exam reveals a few scattered crackles no wheezing Cardiac exam reveals regular heart sounds no gallops no murmurs Abdomen is soft nontender no organomegaly with normal bowel sounds Extremity exam reveals no edema no cyanosis or clubbing Neurological examination reveals no gross focal deficit - Labs CBC & Chem 7: 04/03/20 06:07 04/02/20 05:55 Labs: Abnormal Lab Results - Last 24 Hours (Table) 04/02/20 04/02/20 04/03/20 Range/Units 16:47 19:51 06:07 Hgb 9.7 L (11.4-16.0) gm/dL Hct 30.9 L (34.0-46.0) % MCV 79.4 L (80.0-100.0) fL RDW 21.1 H (11.5-15.5) % Eosinophils # 0.9 H (0-0.7) k/uL POC Glucose (mg/dL) 163 H 210 H (75-99) mg/dL Assessment and Plan Plan: 1. Anemia, iron deficiency, acute on chronic 2. CKD stage 3 Will consult nephrology for possible outpatient follow-up for Procrit injections 3. fluid overload with shortness of breath after 1 unit red blood cell transfusion 4. Underlying history of hypertension 5. Underlying history of hyperlipidemia 6. Underlying history of COPD 7. Underlying history of insulin-dependent diabetes mellitus 8. Scheduled for surgery on Friday for partial colectomy for colon mass, at this time will obtain echocardiogram and consult cardiology for surgical clearance At this time patient is admitted to telemetry floor awaiting input from gas troenterology for possible EGD and colonoscopy, patient will need outpatient follow-up with hematology for possible IV iron infusion and possible Procrit injections Will follow during this admission for medical management
[2020-04-03] MEDS: HEPARIN SODIUM,PORCINE 5,000 UNIT/ML 1 ML VIAL SQ SCH (19:00)
[2020-04-03] MEDS: D5-0.45% NACL WITH KCL 20MEQ/L 1,000 ML IV SCH (20:06)
[2020-04-03] MEDS: ALVIMOPAN 12 MG CAPSULE PO SCH (20:06)
[2020-04-03] MEDS: ATORVASTATIN 40 MG TAB PO SCH (20:06)
[2020-04-03 20:07] LABS: Anisocytosis Moderate; Basophils % (A) 0 %; Eosinophils # (A) 0.2 k/uL (0-0.7); Eosinophils % (A) 2 %; HCT 31.3 % (34.0-46.0); HGB 9.6 gm/dL (11.4-16.0); Hypochromasia Marked; Lymphocytes % (A) 8 %; MCH 24.7 pg (25.0-35.0); MCHC 30.5 g/dL (31.0-37.0); Mean Platelet Volume 8.1; Microcytosis Slight; Monocytes # (A) 0.5 k/uL (0-1.0); Monocytes % (A) 4 %; Neutrophils # (A) 9.8 k/uL (1.3-7.7); Neutrophils % (A) 85 %; Platelet Count 273 k/uL (150-450); Poikilocytosis Slight; RBC 3.87 m/uL (3.80-5.40); RDW 20.9 % (11.5-15.5); WBC 11.6 k/uL (3.8-10.6)
[2020-04-03] MEDS: HYDROcodone/APAP 5-325MG 1 EACH TAB PO PRN (20:07)
[2020-04-03] MEDS: MONTELUKAST 10 MG TAB PO SCH (20:07)
[2020-04-03 20:08] LABS: Calcium 8.5 mg/dL (8.4-10.2); Potassium 4.3 mmol/L (3.5-5.1)
[2020-04-03 20:08] LABS: Glucose,Whole Blood 116 mg/dL (75-99)
[2020-04-03] MEDS: INSULIN DETEMIR (LEVEMIR) 100 UNIT/ML SYR SQ SCH (20:13)
[2020-04-04] MEDS: HEPARIN SODIUM,PORCINE 5,000 UNIT/ML 1 ML VIAL SQ SCH ×3 (00:59→18:26)
[2020-04-04] MEDS: HYDROmorphone 1 MG/ML 1 ML SYRINGE IVP PRN ×2 (03:40→09:10)
[2020-04-04] MEDS: D5-0.45% NACL WITH KCL 20MEQ/L 1,000 ML IV SCH ×2 (04:24→09:10)
[2020-04-04 06:10] LABS: Glucose,Whole Blood 230 mg/dL (75-99)
--- NOTE | 2020-04-04 06:24 | P.PN ---
Progress Note - Text 04/04 610am 89-year-old female status post right colectomy by Dr. Chinchilla. Patient has an epidural catheter for postop pain control with the solution running at 5 mL an hour. Patient is hard of hearing and difficult to communicate. I talked with the nurse this morning to get an update on her. Patient is doing well with no overt signs for abdominal pain. Plan to continue epidural infusion at 5 mL an hour
[2020-04-04 08:23] LABS: Albumin 2.7 g/dL (3.5-5.0); Anisocytosis Moderate; Basophils % (A) 0 %; Eosinophils # (A) 0.1 k/uL (0-0.7); Eosinophils % (A) 1 %; HCT 30.1 % (34.0-46.0); HGB 9.2 gm/dL (11.4-16.0); Hypochromasia Marked; Lymphocytes # (A) 1.2 k/uL (1.0-4.8); Lymphocytes % (A) 11 %; MCH 24.8 pg (25.0-35.0); MCHC 30.5 g/dL (31.0-37.0); MCV 81.2 fL (80.0-100.0); Mean Platelet Volume 7.3; Microcytosis Slight; Monocytes # (A) 0.7 k/uL (0-1.0); Monocytes % (A) 7 %; Neutrophils # (A) 9.2 k/uL (1.3-7.7); Neutrophils % (A) 81 %; Platelet Count 263 k/uL (150-450); Poikilocytosis Slight; Potassium 5.1 mmol/L (3.5-5.1); RBC 3.71 m/uL (3.80-5.40); RDW 21.6 % (11.5-15.5); Total Bilirubin 0.9 mg/dL (0.2-1.3); Total Protein 5.7 g/dL (6.3-8.2); WBC 11.4 k/uL (3.8-10.6)
[2020-04-04] MEDS: IPRATROPIUM 0.5 MG/2.5 ML NEBU INHALATION SCH ×4 (08:46→21:11)
[2020-04-04] MEDS: METOPROLOL TARTRATE 50 MG TAB PO SCH ×2 (09:08→22:37)
[2020-04-04] MEDS: PANTOPRAZOLE 40 MG TABLET PO SCH ×2 (09:08→22:37)
[2020-04-04] MEDS: SENNOSIDES 8.6 MG TAB PO SCH (09:08)
[2020-04-04] MEDS: FUROSEMIDE 40 MG TAB PO SCH (09:08)
[2020-04-04] MEDS: ISOSORBIDE MONONITRATE ER 30 MG TAB.ER.24H PO SCH (09:08)
[2020-04-04] MEDS: ALVIMOPAN 12 MG CAPSULE PO SCH ×3 (09:09→22:35)
[2020-04-04] MEDS: INSULIN ASPART (NovoLOG) 100 UNIT/ML VIAL SQ SCH ×3 (09:09→18:26)
--- NOTE | 2020-04-04 10:40 | P.PN ---
Subjective Progress Note Date: 04/04/20 Sonal Ulloa is an 89-year-old female patient who presented to the emergency department today for evaluation of low hemoglobin. Patient is currently a resident at [facility]. She had labs performed yesterday and hemoglobin was 6.1. she was sent to [facility] emergency room for evaluation , she received 1 unit of red blood cell transfusion in the emergency room and she started developing shortness of breath repeat hemoglobin was 9.1 patient has a known history of iron deficiency anemia . She was admitted to medical floor gastroenterology consultation and hematology consultation were requested for evaluation of chronic anemia . 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 Patient is otherwise stable there is no fever or chills no headache or dizziness no chest pain no shortness of breath no cough no nausea or vomiting no abdominal pain no diarrhea and no urinary symptoms. On 03/31/2020 patient was seen and examined on the medical floor, there is no fever or chills no headache or dizziness no chest pain no shortness of breath no cough no nausea or vomiting no dominant pain nor diarrhea no burning with urination no frequency or urgency no hematuria, hemoglobin today is 7.6 white blood count 8.0 potassium 3. . On 04/01/2020 patient was seen and examined on the medical floor she is alert and oriented 3 in no apparent distress she is very hard of hearing, she denies any pain or discomfort at this time there is no chest pain or shortness of breath no cough no nausea or vomiting no abdominal pain no diarrhea no blood in the stools no burning with urination no frequency or urgency and no hematuria On 04/02/2020 patient was seen and examined on the medical floor she is feeling well there is no fever or chills no headache or dizziness no chest pain no shortness of breath no cough no nausea or vomiting no abdominal pain no diarrhea no burning with urination no frequency or urgency no hematuria she is scheduled for surgery tomorrow 04/03/2020 patient was seen and examined on the medical floor she is alert and oriented 3 in no apparent distress there is no fever or chills no headache or dizziness no chest pain no shortness of breath no cough no nausea or vomiting no abdominal pain no diarrhea no burning with urination no frequency or urgency no hematuria patient is going for surgery today. 04/04/2020 patient was seen and examined on the medical floor she is alert, con fused, in no apparent distress there is no fever or chills no headache or dizziness no chest pain no shortness of breath no cough no nausea or vomiting no abdominal pain no diarrhea no burning with urination no frequency or urgency no hematuria patient is post op day #1 Objective - Vital Signs Vital signs: Vital Signs Temp 98 F 04/04/20 03:52 Pulse 79 04/04/20 03:52 Resp 18 04/04/20 03:52 BP 144/64 04/04/20 03:52 Pulse Ox 98 04/04/20 03:52 Intake & Output 04/03/20 04/04/20 04/04/20 18:59 06:59 18:59 Intake Total 1350 Output Total 1225 300 Balance 125 -300 Weight 46.9 kg 49.3 kg Intake: IV 1350 Output: Urine 1200 300 Estimated Blood Loss 25 Other: Voiding Method Indwelling Catheter Indwelling Catheter # Voids 1 1 # Bowel Movements 1 - Exam In general patient is alert and oriented 3 in no apparent distress HEENT head normocephalic and atraumatic Neck is supple no JVD no goiter no lymphadenopathy Chest exam reveals a few scattered crackles no wheezing Cardiac exam reveals regular heart sounds no gallops no murmurs Abdomen is soft nontender no organomegaly with normal bowel sounds Extremity exam reveals no edema no cyanosis or clubbing Neurological examination reveals no gross focal deficit - Labs CBC & Chem 7: 04/04/20 06:56 04/04/20 06:56 Labs: Abnormal Lab Results - Last 24 Hours (Table) 04/03/20 04/03/20 04/03/20 Range/Units 17:05 19:22 19:22 WBC 11.6 H (3.8-10.6) k/uL RBC (3.80-5.40) m/uL Hgb 9.6 L (11.4-16.0) gm/dL Hct 31.3 L (34.0-46.0) % MCH 24.7 L (25.0-35.0) pg MCHC 30.5 L (31.0-37.0) g/dL RDW 20.9 H (11.5-15.5) % Neutrophils # 9.8 H (1.3-7.7) k/uL Sodium (137-145) mmol/L Carbon Dioxide 32 H (22-30) mmol/L BUN 27 H (7-17) mg/dL Glucose 124 H (74-99) mg/dL POC Glucose (mg/dL) 137 H (75-99) mg/dL Calcium (8.4-10.2) mg/dL Total Protein (6.3-8.2) g/dL Albumin (3.5-5.0) g/dL 04/03/20 04/04/20 04/04/20 Range/Units 20:06 06:08 06:56 WBC 11.4 H (3.8-10.6) k/uL RBC 3.71 L (3.80-5.40) m/uL Hgb 9.2 L (11.4-16.0) gm/dL Hct 30.1 L (34.0-46.0) % MCH 24.8 L (25.0-35.0) pg MCHC 30.5 L (31.0-37.0) g/dL RDW 21.6 H (11.5-15.5) % Neutrophils # 9.2 H (1.3-7.7) k/uL Sodium (137-145) mmol/L Carbon Dioxide (22-30) mmol/L BUN (7-17) mg/dL Glucose (74-99) mg/dL POC Glucose (mg/dL) 116 H 230 H (75-99) mg/dL Calcium (8.4-10.2) mg/dL Total Protein (6.3-8.2) g/dL Albumin (3.5-5.0) g/dL 04/04/20 Range/Units 06:56 WBC (3.8-10.6) k/uL RBC (3.80-5.40) m/uL Hgb (11.4-16.0) gm/dL Hct (34.0-46.0) % MCH (25.0-35.0) pg MCHC (31.0-37.0) g/dL RDW (11.5-15.5) % Neutrophils # (1.3-7.7) k/uL Sodium 135 L (137-145) mmol/L Carbon Dioxide (22-30) mmol/L BUN 24 H (7-17) mg/dL Glucose 188 H (74-99) mg/dL POC Glucose (mg/dL) (75-99) mg/dL Calcium 8.0 L (8.4-10.2) mg/dL Total Protein 5.7 L (6.3-8.2) g/dL Albumin 2.7 L (3.5-5.0) g/dL Assessment and Plan Plan: 1. Anemia, iron deficiency, acute on chronic 2. CKD stage 3 Will consult nephrology for possible outpatient follow-up for Procrit injections 3. fluid overload with shortness of breath after 1 unit red blood cell transfusion 4. Underlying history of hypertension 5. Underlying history of hyperlipidemia 6. Underlying history of COPD 7. Underlying history of insulin-dependent diabetes mellitus 8. Scheduled for surgery on Friday for partial colectomy for colon mass, at this time will obtain echocardiogram and consult cardiology for surgical clearance At this time patient is admitted to telemetry floor awaiting input from gastroenterology for possible EGD and colonoscopy, patient will need outpatient follow-up with hematology for possible IV iron infusion and possible Procrit injections Will follow during this admission for medical management
[2020-04-04] MEDS: SYMBICORT 80-4.5 MCG INHALER INHALATION SCH ×2 (12:04→21:12)
--- NOTE | 2020-04-04 12:30 | P.PN ---
Progress Note - Text Progress Note Date: 04/04/20 The patient's postoperative day 1 from right colectomy. She has a slight amount of confusion. On exam vital signs are stable. Abdomen soft. Incision site is clean dry and intact. Status post right colon. Pathology is pending. Patient remained on clear liquids.
--- NOTE | 2020-04-04 12:38 | PN ---
PROGRESS NOTE This lady had a right hemicolectomy. She is recovering nicely, doing well, but feels a bit weak. Her vitals are stable, JVD 1 cm, no carotid bruit. S1-S2 heard normally, ejection systolic murmur is audible. Lungs are clear. Abdomen is soft and bowel sounds are not easily audible. Rest of physical examination is unchanged. This lady has moderate aortic stenosis, CAD with multiple PCIs, hypertension, hyperlipidemia, ejection fraction of 50%. She has paroxysmal atrial fibrillation and also a colonic mass for which she had surgery. I am recommending that we switch the IV to D5 0.9 saline 100 mL/hour, continue all her other medications as before. Prognosis remains guarded. MMODL / IJN: [id number] /
[2020-04-04] MEDS: DEXTROSE 5%-0.9% NACL 1,000 ML IV SCH ×2 (12:47→23:56)
--- NOTE | 2020-04-04 14:01 | P.PN ---
Subjective Progress Note Date: 04/04/20 Principal diagnosis: Anemia secondary to microcytic hypochromic anemia The patient is seen today 03/30/2020 in follow-up on the selective care unit. She is currently resting comfortably in bed. Awake and alert in no acute distress. Denies any worsening shortness of breath cough or congestion. No noted bleeding. White count 8.6. Hemoglobin 7.9. Sodium 136. Potassium 3.8. Creatinine 1.46. She is status post 1 unit of packed red blood cells this admission. Plan is for EGD/colonoscopy today. On 03/31/2020 patient seen in follow-up on selective care unit, she is awake and alert, in no acute distress, patient is extremely hard of hearing which makes communicating with her very difficult. Her breathing is comfortable, she is currently on 2 L of oxygen with a pulse ox of 99 200%, lung sounds are clear. No rhonchi, no wheezing. Yesterday patient could not complete her EGD related to stricture, and procedure was aborted, colonoscopy revealed a cecal mass, stat us post biopsies. The mass was suspicious for neoplasm. CT of abdomen and pelvis has been completed showing soft tissue at the level of the cecum, and nonspecific pulmonary nodularity, with 8 mm nodular density in the region of the lingula as well as the 1.5 cm nodular density in the region of the right middle lobe which could be postinflammatory in nature. Dedicated computed tomography scan of the chest was advised. On 04/03/2020 patient seen in follow-up on selective care unit, she is sitting up in the chair, in no acute distress, she is currently on 2 L of oxygen pulse ox of 99%, hemodynamically stable, she is afebrile, her abdomen is soft, although somewhat distended. 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 His labs have been reviewed, with blood cell count is 9.2, hemoglobin is 9.7. Patient is status post transfusion with 2 units of packed red blood cells this admission. Denies any chest pain, she does admit to being somewhat short of breath, lung sounds reveal faint wheezes in the upper lobes. He is on breathing treatments, Symbicort, she is on maintenance dose of oral Lasix. Patient has not had any new chest x-rays since admission On 04/04/2020 patient seen in follow-up on selective care unit, she status post right colectomy, this is postoperative day 1. Patient is complaining of a lot of abdominal incisional pain. She is on epidural infusion with bupivacaine and Dilaudid currently running at 5 ML per hour. IV D5 half-normal saline with 20 of potassium at 125 ML per hour. Abdomen is soft, she denies any nausea or vomiting. She denies having much of an appetite. She refused her morning tray. Bowel sounds are active 4, but she has not passed any bowel movement or passed gas, mid abdominal incision is clean dry and intact, covered with surgical dressing with minimal amount of sanguinous drainage which is old. Today's labs have been reviewed, showing white blood cell count of 11.4, hemoglobin is 9.2, serum sodium is 135, the rest of electrolytes were within normal limits, BUN is 24 creatinine is 0.91. Patient had some mild confusion last night, she is answering questions appropriately, however patient is very hard of hearing, she is answering basic questions appropriately, does not seem to be confused this morning. Vital signs are stable. She is on 2 L of oxygen a pulse ox of 99%. Breathing is comfortable, low-grade fever this morning, with a temp of 99.3, and was afebrile. Objective - Vital Signs Vital signs: Vital Signs Temp 99.3 F 04/04/20 08:00 Pulse 79 04/04/20 08:00 Resp 17 04/04/20 08:00 BP 140/70 04/04/20 08:00 Pulse Ox 99 04/04/20 08:00 Intake & Output 04/03/20 04/04/20 04/04/20 18:59 06:59 18:59 Intake Total 1350 Output Total 1225 300 Balance 125 -300 Weight 46.9 kg 49.3 kg Intake: IV 1350 Output: Urine 1200 300 Estimated Blood Loss 25 Other: Voiding Method Indwelling Catheter Indwelling Catheter Indwelling Catheter # Voids 1 1 # Bowel Movements 1 - Exam GENERAL EXAM: Lethargic but easily arousable to verbal stimulation very pleasant, 89-year-old white female on 2 L of oxygen with pulse ox of 99%, comfortable in no apparent distress. Patient is extremely hard of hearing. Patient is having moderate amount of discomfort in the abdominal incisional area from recent right colectomy, and is currently on epidural infusion with Bupivacaine and Dilaudid at 5 mg per hour HEAD: Normocephalic/atraumatic. EYES: Normal reaction of pupils, equal size. Conjunctiva pink, sclera white. NOSE: Clear with pink turbinates. THROAT: No erythema or exudates. NECK: No masses, no JVD, no thyroid enlargement, no adenopathy. CHEST: No chest wall deformity. Symmetrical expansion. LUNGS: Equal air entry with no crackles, wheeze, rhonchi or dullness. CVS: Regular rate and rhythm, normal S1 and S2, no gallops, systolic murmur loudest at the right sternal border, second intercostal space consistent with aortic stenosis, no rubs ABDOMEN: Soft, nontender. No hepatosplenomegaly, normal bowel sounds, no guard ing or rigidity. EXTREMITIES: No clubbing, no cyanosis, 2+ pulses and upper and lower extremities. Mid abdominal incision, covered with a surgical dressing, with small amount of old sanguinous drainage on the surgical incision. Bowel sounds are present, 4. Patient has a moderate amount of postsurgical tenderness, and remains on epidural infusion MUSCULOSKELETAL: Muscle strength and tone normal. SPINE: No scoliosis or deformity SKIN: No rashes CENTRAL NERVOUS SYSTEM: Lethargic, but arousable to stimuli. No focal deficits, tone is normal in all 4 extremities. - Labs CBC & Chem 7: 04/04/20 06:56 04/04/20 06:56 Labs: Abnormal Lab Results - Last 24 Hours (Table) 04/03/20 04/03/20 04/03/20 Range/Units 17:05 19:22 19:22 WBC 11.6 H (3.8-10.6) k/uL RBC (3.80-5.40) m/uL Hgb 9.6 L (11.4-16.0) gm/dL Hct 31.3 L (34.0-46.0) % MCH 24.7 L (25.0-35.0) pg MCHC 30.5 L (31.0-37.0) g/dL RDW 20.9 H (11.5-15.5) % Neutrophils # 9.8 H (1.3-7.7) k/uL Sodium (137-145) mmol/L Carbon Dioxide 32 H (22-30) mmol/L BUN 27 H (7-17) mg/dL Glucose 124 H (74-99) mg/dL POC Glucose (mg/dL) 137 H (75-99) mg/dL Calcium (8.4-10.2) mg/dL Total Protein (6.3-8.2) g/dL Albumin (3.5-5.0) g/dL 04/03/20 04/04/20 04/04/20 Range/Units 20:06 06:08 06:56 WBC 11.4 H (3.8-10.6) k/uL RBC 3.71 L (3.80-5.40) m/uL Hgb 9.2 L (11.4-16.0) gm/dL Hct 30.1 L (34.0-46.0) % MCH 24.8 L (25.0-35.0) pg MCHC 30.5 L (31.0-37.0) g/dL RDW 21.6 H (11.5-15.5) % Neutrophils # 9.2 H (1.3-7.7) k/uL Sodium (137-145) mmol/L Carbon Dioxide (22-30) mmol/L BUN (7-17) mg/dL Glucose (74-99) mg/dL POC Glucose (mg/dL) 116 H 230 H (75-99) mg/dL Calcium (8.4-10.2) mg/dL Total Protein (6.3-8.2) g/dL Albumin (3.5-5.0) g/dL 04/04/20 Range/Units 06:56 WBC (3.8-10.6) k/uL RBC (3.80-5.40) m/uL Hgb (11.4-16.0) gm/dL Hct (34.0-46.0) % MCH (25.0-35.0) pg MCHC (31.0-37.0) g/dL RDW (11.5-15.5) % Neutrophils # (1.3-7.7) k/uL Sodium 135 L (137-145) mmol/L Carbon Dioxide (22-30) mmol/L BUN 24 H (7-17) mg/dL Glucose 188 H (74-99) mg/dL POC Glucose (mg/dL) (75-99) mg/dL Calcium 8.0 L (8.4-10.2) mg/dL Total Protein 5.7 L (6.3-8.2) g/dL Albumin 2.7 L (3.5-5.0) g/dL Assessment and Plan Plan: Assessment: 1 cecal mass, status post colonoscopy with biopsies positive for adenocarcinoma with high-grade dysplasia, status post right colectomy, postoperative day 2 postoperative surgical pain, patient remains on epidural infusion 3 Anemia secondary to microcytic hypochromic anemia with iron deficiency anemia, and adenocarcinoma with high-grade dysplasia, 4 esophageal stricture 5 Acute on chronic hypoxemic respiratory failure secondary to extensive pulmonary fibrosis and COPD 6 nonspecific pulmonary nodularity noted on the CT of the abdomen and pelvis, with 8 mm nodular density in the lingula and 1.5 cm nodular density in the region of the right middle lobe 7 Coronary artery disease with previous stent placement 8 Diabetes mellitus 9 Hypertension 10 Hyperlipidemia 11 Hearing disorder 12 Osteoarthritis 13 Renal insufficiency 14 History of TIA 15 History of esophageal stricture with previous dilatation 16 Chronic back pain Plan: Maintain pain control, she remains on epidural infusion as being monitored by anesthesia services, maintain aspiration precautions, encouraged deep breathing and coughing, surgical incision splinting, and incentive spirometry use. Patient is doing well on postoperative day one, vital signs are stable, continue with IV hydration, she is not having much of an oral intake at this time, monitor serum glucose, monitor vital signs, oxygenation. Monitor urine output. Antibiotics per surgical services. Monitor febrile pattern. We'll continue to follow. I performed a history & physical examination of the patient and discussed their management with my nurse practitioner, Josephine Winkler. I reviewed the nurse practitioner's note and agree with the documented findings and plan of care. Lung sounds are positive for clear diminished at bases. The findings and the impression was discussed with the patient. I attest to the documentation by the nurse practitioner. Time with Patient: Less than 30
[2020-04-04] MEDS: SERAX PO PRN (15:03)
--- NOTE | 2020-04-04 16:03 | P.PN ---
Subjective Progress Note Date: 04/04/20 Principal diagnosis: Anemia and now cecal mass Status Post Right Hemicolectomy. She is complaining of pain this am, at incision Objective - Vital Signs Vital signs: Vital Signs Temp 97.6 F 04/04/20 12:10 Pulse 94 04/04/20 12:10 Resp 17 04/04/20 12:10 BP 162/65 04/04/20 12:10 Pulse Ox 95 04/04/20 12:10 Intake & Output 04/03/20 04/04/20 04/04/20 18:59 06:59 18:59 Intake Total 1350 Output Total 1225 300 Balance 125 -300 Weight 46.9 kg 49.3 kg Intake: IV 1350 Output: Urine 1200 300 Estimated Blood Loss 25 Other: Voiding Method Indwelling Catheter Indwelling Catheter Indwelling Catheter # Voids 1 1 # Bowel Movements 1 - Exam - General well developed, well nourished, no distress - Eyes PERRL - ENT normal pinna - Neck no masses - Respiratory normal expansion - Cardiovascular Rhythm: regular - Abdomen Abdomen: soft, non tender distended Ext: BLE edema Psch: Poor historian. - Labs CBC & Chem 7: 04/04/20 06:56 04/04/20 06:56 Labs: Abnormal Lab Results - Last 24 Hours (Table) 04/03/20 04/03/20 04/03/20 Range/Units 17:05 19:22 19:22 WBC 11.6 H (3.8-10.6) k/uL RBC (3.80-5.40) m/uL Hgb 9.6 L (11.4-16.0) gm/dL Hct 31.3 L (34.0-46.0) % MCH 24.7 L (25.0-35.0) pg MCHC 30.5 L (31.0-37.0) g/dL RDW 20.9 H (11.5-15.5) % Neutrophils # 9.8 H (1.3-7.7) k/uL Sodium (137-145) mmol/L Carbon Dioxide 32 H (22-30) mmol/L BUN 27 H (7-17) mg/dL Glucose 124 H (74-99) mg/dL POC Glucose (mg/dL) 137 H (75-99) mg/dL Calcium (8.4-10.2) mg/dL Total Protein (6.3-8.2) g/dL Albumin (3.5-5.0) g/dL 04/03/20 04/04/20 04/04/20 Range/Units 20:06 06:08 06:56 WBC 11.4 H (3.8-10.6) k/uL RBC 3.71 L (3.80-5.40) m/uL Hgb 9.2 L (11.4-16.0) gm/dL Hct 30.1 L (34.0-46.0) % MCH 24.8 L (25.0-35.0) pg MCHC 30.5 L (31.0-37.0) g/dL RDW 21.6 H (11.5-15.5) % Neutrophils # 9.2 H (1.3-7.7) k/uL Sodium (137-145) mmol/L Carbon Dioxide (22-30) mmol/L BUN (7-17) mg/dL Glucose (74-99) mg/dL POC Glucose (mg/dL) 116 H 230 H (75-99) mg/dL Calcium (8.4-10.2) mg/dL Total Protein (6.3-8.2) g/dL Albumin (3.5-5.0) g/dL 04/04/20 Range/Units 06:56 WBC (3.8-10.6) k/uL RBC (3.80-5.40) m/uL Hgb (11.4-16.0) gm/dL Hct (34.0-46.0) % MCH (25.0-35.0) pg MCHC (31.0-37.0) g/dL RDW (11.5-15.5) % Neutrophils # (1.3-7.7) k/uL Sodium 135 L (137-145) mmol/L Carbon Dioxide (22-30) mmol/L BUN 24 H (7-17) mg/dL Glucose 188 H (74-99) mg/dL POC Glucose (mg/dL) (75-99) mg/dL Calcium 8.0 L (8.4-10.2) mg/dL Total Protein 5.7 L (6.3-8.2) g/dL Albumin 2.7 L (3.5-5.0) g/dL Assessment and Plan Plan: Assessment and Plan Microcytic hypochromic anemia - Multifactorial Iron deficiency with component of CKD and now GI Mass responsible for Blood loss component - Parental Iron to continue - Daily CBC - 4 week outpatient hematology follow-up - GI Work-up was performed and 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 - It was confirmed that the detention is able to administer Aranesp. - Orders have been placed in the discharge paperwork for same. -surgical resection 04/03 of newly found mass Will plan to see her in follow-up in 3-4 weeks for recommendations on adjuvent treatment
[2020-04-04 16:34] LABS: Glucose,Whole Blood 184 mg/dL (75-99)
[2020-04-04] MEDS ORDERED: IPRATROPIUM-ALBUTEROL 3 ML NEB INHALATION STA (20:00)
[2020-04-04] MEDS ORDERED: methylPREDNISolone SOD SUCCI 125 MG/2 ML VIAL IV STA (20:19)
[2020-04-04 20:23] LABS: Glucose,Whole Blood 260 mg/dL (75-99)
[2020-04-04] MEDS ORDERED: ETOMIDATE 2 MG/ML 10 ML VIAL ONE (20:35)
--- NOTE | 2020-04-04 21:11 | XR ---
EXAMINATION TYPE: XR chest 1V portable DATE OF EXAM: 04/04/2020 COMPARISON: 03/28/2020 INDICATION: Respiratory distress TECHNIQUE: Single frontal view of the chest is obtained. FINDINGS: The heart size is upper limits of normal. The pulmonary vasculature is prominent. There is diffuse increased lung markings bilaterally. Correlate for pulmonary edema and volume overlo ad. Atypical pneumonia should be considered. Endotracheal tube tip is above the meggan. Nasogastric tube transverses the thorax. IMPRESSION: 1. Diffuse increased lung markings. Differential diagnosis could include pulmonary edema, infectious etiology including atypical forms of pneumonia.
[2020-04-04] MEDS ORDERED: NOREPINEPHRIN 4 MG-0.9% NS PMX 4 MG/250 ML ML IV ONE (21:12)
[2020-04-04] MEDS ORDERED: NOREPINEPHRINE 32 MG in SODIUM CHLORIDE 0.9% 218 ML IV SCH (21:15)
[2020-04-04 21:54] LABS: ABG Base Excess 3.3 mmol/L; ABG HCO3 30 mmol/L (21-25); ABG Oxygen Saturation 99.4 % (94-97); ABG PCO2 59 mmHg (35-45); ABG PH 7.31 (7.35-7.45); ABG PO2 229 mmHg (83-108); ABG TCO2 31 mmol/L (19-24); Allen Test Performed? Yes
[2020-04-04] MEDS: propofoL 100 ML IV ONE ×2 (22:03→22:06)
[2020-04-04 22:05] LABS: Anisocytosis Moderate; Basophils % (A) 0 %; Eosinophils # (A) 0.1 k/uL (0-0.7); Eosinophils % (A) 1 %; HCT 31.5 % (34.0-46.0); Hypochromasia Marked; Lymphocytes # (A) 0.5 k/uL (1.0-4.8); Lymphocytes % (A) 3 %; MCH 23.3 pg (25.0-35.0); MCHC 28.7 g/dL (31.0-37.0); MCV 81.3 fL (80.0-100.0); Microcytosis Slight; Monocytes # (A) 0.8 k/uL (0-1.0); Monocytes % (A) 6 %; Neutrophils % (A) 89 %; Platelet Count 273 k/uL (150-450); RBC 3.87 m/uL (3.80-5.40); WBC 14.6 k/uL (3.8-10.6)
[2020-04-04 22:13] LABS: Partial Thromboplastin Time 25.6 sec (22.0-30.0); Prothrombin Time 10.5 sec (9.0-12.0)
[2020-04-04 22:17] LABS: Albumin 2.5 g/dL (3.5-5.0); Calcium 7.8 mg/dL (8.4-10.2); Magnesium 1.9 mg/dL (1.6-2.3); Potassium 4.5 mmol/L (3.5-5.1); Total Bilirubin 0.9 mg/dL (0.2-1.3); Total Protein 5.4 g/dL (6.3-8.2)
[2020-04-04] MEDS: ATORVASTATIN 40 MG TAB PO SCH (22:35)
[2020-04-04] MEDS: MONTELUKAST 10 MG TAB PO SCH (22:37)
[2020-04-04] MEDS: NOREPINEPHRINE 8 MG in SODIUM CHLORIDE 0.9% 250 ML IV SCH (22:55)
[2020-04-04] MEDS ORDERED: FUROSEMIDE 10 MG/ML 4 ML VIAL IV STA (23:51)
[2020-04-05 00:05] LABS: Glucose,Whole Blood 182 mg/dL (75-99)
[2020-04-05] MEDS: INSULIN ASPART (NovoLOG) 100 UNIT/ML VIAL SQ SCH ×5 (00:29→23:47)
[2020-04-05] MEDS: HEPARIN SODIUM,PORCINE 5,000 UNIT/ML 1 ML VIAL SQ SCH ×4 (00:29→23:38)
[2020-04-05] MEDS: INSULIN DETEMIR (LEVEMIR) 100 UNIT/ML SYR SQ SCH ×2 (00:37→21:56)
--- NOTE | 2020-04-05 02:46 | P.EN ---
shanna spaulding was called on the patient due to agonal breathing and acute hypoxemia low 60% despite supplemental oxygen patient was not responsive, she is on opioid spinal , which was stopped , and ordered narcan , however not given as patient became more responsive patient started on non breather, and responded initially , however, she sounded tight, with diminished breath sounds and wheezing, tachycardia and respiratory distress , using abd muscles , she did not tolerate the mask , and started to become confused, and tiring out. it was difficult to maintain her oxygen saturation above 90% patient was moved to the icu and given breathing treatment , however, she was intubated due to no improvement and impeding respiratory failure cxr reviewed, primary team notified, ICU dr. Albarran was notified 40 minutes spent in critical care time with this patient
[2020-04-05] MEDS ORDERED: CHLORHEXIDINE GLUCONATE 15 ML CUP MUCOUS MEM ONE (03:49)
[2020-04-05 05:33] LABS: Anisocytosis Moderate; Basophils % (A) 0 %; Eosinophils # (A) 0.3 k/uL (0-0.7); Eosinophils % (A) 3 %; HCT 28.8 % (34.0-46.0); HGB 8.9 gm/dL (11.4-16.0); Hypochromasia Marked; Lymphocytes # (A) 1.9 k/uL (1.0-4.8); Lymphocytes % (A) 17 %; MCH 24.3 pg (25.0-35.0); MCHC 30.9 g/dL (31.0-37.0); MCV 78.5 fL (80.0-100.0); Mean Platelet Volume 8.9; Microcytosis Moderate; Monocytes # (A) 0.7 k/uL (0-1.0); Monocytes % (A) 6 %; Neutrophils # (A) 8.1 k/uL (1.3-7.7); Neutrophils % (A) 72 %; Platelet Count 242 k/uL (150-450); Poikilocytosis Slight; RBC 3.68 m/uL (3.80-5.40); RDW 22.5 % (11.5-15.5); WBC 11.1 k/uL (3.8-10.6)
[2020-04-05 05:35] LABS: Appearance,Urine Clear (Clear); Bilirubin,Urine Negative (Negative); Blood,Urine Negative (Negative); Color,Urine Light Yellow; Glucose,Urine (UA) Negative (Negative); Ketones,Urine Negative (Negative); Leukocyte Esterase,Urine Negative (Negative); Nitrite,Urine Negative (Negative); PH, Urine 5.5 (5.0-8.0); Protein,Urine Negative (Negative); Specific Gravity,Urine 1.007 (1.001-1.035); Urobilinogen,Urine <2.0 mg/dL (<2.0)
[2020-04-05 05:45] LABS: Albumin 2.4 g/dL (3.5-5.0); Calcium 7.9 mg/dL (8.4-10.2); Total Bilirubin 0.5 mg/dL (0.2-1.3); Total Protein 5.2 g/dL (6.3-8.2)
[2020-04-05 05:47] LABS: ABG Base Excess 6.5 mmol/L; ABG HCO3 29 mmol/L (21-25); ABG Oxygen Saturation 98.6 % (94-97); ABG PCO2 35 mmHg (35-45); ABG PH 7.53 (7.35-7.45); ABG PO2 98 mmHg (83-108); ABG TCO2 30 mmol/L (19-24); Allen Test Performed? Yes
[2020-04-05 06:17] LABS: Glucose,Whole Blood 79 mg/dL (75-99)
[2020-04-05] MEDS: IPRATROPIUM 0.5 MG/2.5 ML NEBU INHALATION SCH ×4 (08:15→20:06)
[2020-04-05] MEDS: PANTOPRAZOLE 40 MG TABLET PO SCH (08:32)
[2020-04-05] MEDS ORDERED: FUROSEMIDE 10 MG/ML 2 ML VIAL IV STA (09:07)
[2020-04-05] MEDS: METOPROLOL TARTRATE 50 MG TAB PO SCH ×2 (09:20→20:31)
[2020-04-05] MEDS: CHLORHEXIDINE GLUCONATE 15 ML CUP MUCOUS MEM SCH ×2 (09:20→20:30)
[2020-04-05] MEDS: DEXTROSE 5%-0.9% NACL 1,000 ML IV SCH (09:21)
[2020-04-05] MEDS: ALVIMOPAN 12 MG CAPSULE PO SCH (09:21)
--- NOTE | 2020-04-05 09:23 | XR ---
EXAMINATION TYPE: XR chest 1V DATE OF EXAM: 04/05/2020 COMPARISON: Chest radiograph 04/04/2020 HISTORY: Pulmonary edema, intubation TECHNIQUE: Single frontal view of the chest is obtained. FINDINGS: Endotracheal tube distal tip just above the meggan. Enteric tube courses over the left upp er quadrant off the inferior most aspect of the image with nonvisualization of the distal tip. Cardia c and mediastinal silhouettes within normal limits for size. Diffuse coarsened interstitial lung nate ings mildly increased. Increased opacity over the right lung base likely due to overlapping soft tiss ue. Likely small bilateral pleural effusions. No pneumothorax seen. Osseous structures are intact. IMPRESSION: Mildly increased interstitial lung markings likely increasing pulmonary edema with small pleural effusions.
--- NOTE | 2020-04-05 11:21 | P.PN ---
Progress Note - Text 04/05 734 89-year-old female status post right colectomy by Dr. Govea. Patient went into for pulmonary edema yesterday and is intubated in the unit hemodynamically stable. Unable to evaluate pain control. Plan is to DC the epidural for the heparin dose
--- NOTE | 2020-04-05 11:54 | P.PN ---
Subjective Progress Note Date: 04/05/20 Sonal Ulloa is an 89-year-old female patient who presented to the emergency department today for evaluation of low hemoglobin. Patient is currently a resident at [facility]. She had labs performed yesterday and hemoglobin was 6.1. she was sent to [facility] emergency room for evaluation , she received 1 unit of red blood cell transfusion in the emergency room and she started developing shortness of breath repeat hemoglobin was 9.1 patient has a known history of iron deficiency anemia . She was admitted to medical floor gastroenterology consultation and hematology consultation were requested for evaluation of chronic anemia . 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 Patient is otherwise stable there is no fever or chills no headache or dizziness no chest pain no shortness of breath no cough no nausea or vomiting no abdominal pain no diarrhea and no urinary symptoms. On 03/31/2020 patient was seen and examined on the medical floor, there is no fever or chills no headache or dizziness no chest pain no shortness of breath no cough no nausea or vomiting no dominant pain nor diarrhea no burning with urination no frequency or urgency no hematuria, hemoglobin today is 7.6 white blood count 8.0 potassium 3. . On 04/01/2020 patient was seen and examined on the medical floor she is alert and oriented 3 in no apparent distress she is very hard of hearing, she denies any pain or discomfort at this time there is no chest pain or shortness of breath no cough no nausea or vomiting no abdominal pain no diarrhea no blood in the stools no burning with urination no frequency or urgency and no hematuria On 04/02/2020 patient was seen and examined on the medical floor she is feeling well there is no fever or chills no headache or dizziness no chest pain no shortness of breath no cough no nausea or vomiting no abdominal pain no diarrhea no burning with urination no frequency or urgency no hematuria she is scheduled for surgery tomorrow 04/03/2020 patient was seen and examined on the medical floor she is alert and oriented 3 in no apparent distress there is no fever or chills no headache or dizziness no chest pain no shortness of breath no cough no nausea or vomiting no abdominal pain no diarrhea no burning with urination no frequency or urgency no hematuria patient is going for surgery today. 04/04/2020 patient was seen and examined on the medical floor she is alert, con fused, in no apparent distress there is no fever or chills no headache or dizziness no chest pain no shortness of breath no cough no nausea or vomiting no abdominal pain no diarrhea no burning with urination no frequency or urgency no hematuria patient is post op day #1 On 04/05/2020 Patient was seen and examined in the ICU, events from last night noted, patient developed worsening shortness of breath and tachypnea, [facility] ST[facility] was called and patient was transferred to ICU she was intubated and started on mechanical ventilation, at this time patient is intubated sedated maintained on mechanical ventilation, maintained on levophed for pressure support Objective - Vital Signs Vital signs: Vital Signs Temp 99.9 F H 04/05/20 08:00 Pulse 56 L 04/05/20 11:37 Resp 12 04/05/20 11:00 BP 70/34 04/05/20 10:30 Pulse Ox 98 04/05/20 11:00 Intake & Output 04/04/20 04/05/20 04/05/20 18:59 06:59 18:59 Intake Total 107.078 144.120 Output Total 625 415 Balance -517.922 -270.880 Weight 49.9 kg Intake: IV 104 65 Dextrose 5%-0.9% NaCl 1, 80 50 000 ml @ 10 mls/hr IV . Q24H [facility] Rx#:[id number] pressure bag 24 15 Intake, IV Titration 3.078 79.120 Amount Norepinephrine 8 mg In 2.782 0.557 Sodium Chloride 0.9% 250 ml @ 0.05 MCG/KG/MIN 4.77 mls/hr IV .Q24H [facility] Rx#: [id number] Propofol 1,000 mg In 0.296 78.563 Empty Bag 1 bag @ Titrate IV .Q0M [facility]RY Rx#: [id number] Output: Gastric Drainage 200 Urine 625 215 Other: Voiding Method Indwelling Catheter Indwelling Catheter Indwelling Catheter ABP, PAP, CO, CI - Last Documented Arterial Blood Pressure 131/45 - Exam In general patient is intubated sedated, maintained on mechanical ventilation HEENT head normocephalic and atraumatic Neck is supple no JVD no goiter no lymphadenopathy Chest exam reveals a few scattered crackles no wheezing Cardiac exam reveals regular heart sounds no gallops no murmurs Abdomen is soft nontender no organomegaly with normal bowel sounds Extremity exam reveals no edema no cyanosis or clubbing Neurological examination reveals no gross focal deficit - Labs CBC & Chem 7: 04/05/20 05:15 04/05/20 05:15 Labs: Abnormal Lab Results - Last 24 Hours (Table) 04/04/20 04/04/20 04/04/20 Range/Units 16:30 20:22 21:52 WBC (3.8-10.6) k/uL RBC (3.80-5.40) m/uL Hgb (11.4-16.0) gm/dL Hct (34.0-46.0) % MCV (80.0-100.0) fL MCH (25.0-35.0) pg MCHC (31.0-37.0) g/dL RDW (11.5-15.5) % Neutrophils # (1.3-7.7) k/uL Lymphocytes # (1.0-4.8) k/uL ABG pH 7.31 L (7.35-7.45) ABG pCO2 59 H (35-45) mmHg ABG pO2 229 H (83-108) mmHg ABG HCO3 30 H (21-25) mmol/L ABG Total CO2 31 H (19-24) mmol/L ABG O2 Saturation 99.4 H (94-97) % Sodium (137-145) mmol/L BUN (7-17) mg/dL Creatinine (0.52-1.04) mg/dL Glucose (74-99) mg/dL POC Glucose (mg/dL) 184 H 260 H (75-99) mg/dL Calcium (8.4-10.2) mg/dL Total Protein (6.3-8.2) g/dL Albumin (3.5-5.0) g/dL 04/04/20 04/04/20 04/05/20 Range/Units 21:55 21:55 00:03 WBC 14.6 H (3.8-10.6) k/uL RBC (3.80-5.40) m/uL Hgb 9.0 L (11.4-16.0) gm/dL Hct 31.5 L (34.0-46.0) % MCV (80.0-100.0) fL MCH 23.3 L (25.0-35.0) pg MCHC 28.7 L (31.0-37.0) g/dL RDW 22.0 H (11.5-15.5) % Neutrophils # 13.0 H (1.3-7.7) k/uL Lymphocytes # 0.5 L (1.0-4.8) k/uL ABG pH (7.35-7.45) ABG pCO2 (35-45) mmHg ABG pO2 (83-108) mmHg ABG HCO3 (21-25) mmol/L ABG Total CO2 (19-24) mmol/L ABG O2 Saturation (94-97) % Sodium 135 L (137-145) mmol/L BUN 22 H (7-17) mg/dL Creatinine 1.05 H (0.52-1.04) mg/dL Glucose 213 H (74-99) mg/dL POC Glucose (mg/dL) 182 H (75-99) mg/dL Calcium 7.8 L (8.4-10.2) mg/dL Total Protein 5.4 L (6.3-8.2) g/dL Albumin 2.5 L (3.5-5.0) g/dL 04/05/20 04/05/20 04/05/20 Range/Units 05:15 05:15 05:41 WBC 11.1 H (3.8-10.6) k/uL RBC 3.68 L (3.80-5.40) m/uL Hgb 8.9 L (11.4-16.0) gm/dL Hct 28.8 L (34.0-46.0) % MCV 78.5 L (80.0-100.0) fL MCH 24.3 L (25.0-35.0) pg MCHC 30.9 L (31.0-37.0) g/dL RDW 22.5 H (11.5-15.5) % Neutrophils # 8.1 H (1.3-7.7) k/uL Lymphocytes # (1.0-4.8) k/uL ABG pH 7.53 H (7.35-7.45) ABG pCO2 (35-45) mmHg ABG pO2 (83-108) mmHg ABG HCO3 29 H (21-25) mmol/L ABG Total CO2 30 H (19-24) mmol/L ABG O2 Saturation 98.6 H (94-97) % Sodium (137-145) mmol/L BUN 22 H (7-17) mg/dL Creatinine 1.11 H (0.52-1.04) mg/dL Glucose (74-99) mg/dL POC Glucose (mg/dL) (75-99) mg/dL Calcium 7.9 L (8.4-10.2) mg/dL Total Protein 5.2 L (6.3-8.2) g/dL Albumin 2.4 L (3.5-5.0) g/dL Microbiology - Last 24 Hours (Table) 04/04/20 20:45 Gram Stain - Preliminary Sputum Sputum Culture - Preliminary Assessment and Plan Plan: 1. Acute respiratory failure, likely related to pulmonary edema requiring transfer to ICU, intubation and mechanical ventilation 2. CKD stage 3 Will consult nephrology for possible outpatient follow-up for Procrit injections 3. fluid overload with shortness of breath after 1 unit red blood cell transfusion 4. Underlying history of hypertension 5. Underlying history of hyperlipidemia 6. Underlying history of COPD 7. Underlying history of insulin-dependent diabetes mellitus 8. surgery partial colectomy for colon mass, postoperative day #2 At this time patient is admitted to telemetry floor awaiting input from gastroenterology for possible EGD and colonoscopy, patient will need outpatient follow-up with hematology for possible IV iron infusion and possible Procrit injections Will follow during this admission for medical management
[2020-04-05 12:47] LABS: Glucose,Whole Blood 82 mg/dL (75-99)
--- NOTE | 2020-04-05 13:35 | P.PN ---
Progress Note - Text Progress Note Date: 04/05/20 The patient was transferred to the ICU last night and intubated for congestive heart failure and shortness of breath. She was attempted to be diuresed last night. On exam her vital signs are stable. Patient's is intubated on the ventilator. Abdomen soft. Incision is clean dry intact. Respiratory failure related to congestive heart failure. Patient will be medically optimized. Her condition is guarded.
--- NOTE | 2020-04-05 14:30 | PN ---
PROGRESS NOTE This elderly 89-year-old lady underwent colectomy yesterday because of a colonic mass. Post procedure, she was doing fairly well. Her breathing got progressively worse. She was in respiratory distress which got worse and she was intubated, brought to the ICU. She is hemodynamically stable. She is maintaining sinus rhythm. She is still on the ventilator. Prognosis remains guarded. Vitals are stable. She has a small dose of Levophed, S1-S2 heard normally, short systolic murmur noted. Lungs reveal diminished air entry, ventilator-assisted breath sounds. Abdomen and lower extremity exam is unchanged. Prognosis remains guarded. Will continue supportive care and respiratory management as outlined by the jet worker. Prognosis is guarded. MMODL / IJN: [id number] /
--- NOTE | 2020-04-05 15:44 | P.PN ---
Subjective Progress Note Date: 04/05/20 The patient is seen today 03/30/2020 in follow-up on the selective care unit. She is currently resting comfortably in bed. Awake and alert in no acute distress. Denies any worsening shortness of breath cough or congestion. No noted bleeding. White count 8.6. Hemoglobin 7.9. Sodium 136. Potassium 3.8. Creatinine 1.46. She is status post 1 unit of packed red blood cells this admission. Plan is for EGD/colonoscopy today. On 03/31/2020 patient seen in follow-up on selective care unit, she is awake and alert, in no acute distress, patient is extremely hard of hearing which makes communicating with her very difficult. Her breathing is comfortable, she is currently on 2 L of oxygen with a pulse ox of 99 200%, lung sounds are clear. No rhonchi, no wheezing. Yesterday patient could not complete her EGD related to stricture, and procedure was aborted, colonoscopy revealed a cecal mass, s tatus post biopsies. The mass was suspicious for neoplasm. CT of abdomen and pelvis has been completed showing soft tissue at the level of the cecum, and nonspecific pulmonary nodularity, with 8 mm nodular density in the region of the lingula as well as the 1.5 cm nodular density in the region of the right middle lobe which could be postinflammatory in nature. Dedicated computed tomography scan of the chest was advised. On 04/03/2020 patient seen in follow-up on [facility] care unit, she is sitting up in the chair, in no acute distress, she is currently on 2 L of oxygen pulse ox of 99%, hemodynamically stable, she is afebrile, her abdomen is soft, although somewhat distended. 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 His labs have been reviewed, with blood cell count is 9.2, hemoglobin is 9.7. Patient is status post transfusion with 2 units of packed red blood cells this admission. Denies any chest pain, she does admit to being somewhat short of breath, lung sounds reveal faint wheezes in the upper lobes. He is on breathing treatments, Symbicort, she is on maintenance dose of oral Lasix. Patient has not had any new chest x-rays since admission On 04/04/2020 patient seen in follow-up on selective care unit, she status post right colectomy, this is postoperative day 1. Patient is complaining of a lot of abdominal incisional pain. She is on epidural infusion with bupivacaine and Dilaudid currently running at 5 ML per hour. IV D5 half-normal saline with 20 of potassium at 125 ML per hour. Abdomen is soft, she denies any nausea or vomiting. She denies having much of an appetite. She refused her morning tray. Bowel sounds are active 4, but she has not passed any bowel movement or passed gas, mid abdominal incision is clean dry and intact, covered with surgical dressing with minimal amount of sanguinous drainage which is old. Today's labs have been reviewed, showing white blood cell count of 11.4, hemoglobin is 9.2, serum sodium is 135, the rest of electrolytes were within normal limits, BUN is 24 creatinine is 0.91. Patient had some mild confusion last night, she is answering questions appropriately, however patient is very hard of hearing, she is answering basic questions appropriately, does not seem to be confused this morning. Vital signs are stable. She is on 2 L of oxygen a pulse ox of 99%. Breathing is comfortable, low-grade fever this morning, with a temp of 99.3, and was afebrile. On today's evaluation of 04/05/2020, the patient is being seen in intensive care unit. Note that the patient got chest with the ICU as the patient went into acute respiratory failure due to an acute pulmonary edema. She is known to have severe mitral regurgitation with a preserved LV function is some increased echocardiogram.. Note that she came in to the ICU and she was quite hypoxic and tachypneic and unresponsive. We had to intubated and placed on a mechanical ventilator. Accordingly, the patient was vented and this morning she is calm and comfortable on propofol running at 50 g per KG per minute. IV fluids at KVO. She is producing adequate amount of urine output. Overnight she was given a dose of Lasix and she is achieving a negative fluid balance. I will continue the Lasix at a dose of 20 mg IV push every 12 hours. Chest x-ray still showing pulmonary edema. His morning, she is an assist-control mode of ventilation at the rate of 20 with tidal volume of 400 and FiO2 of 40% with a PEEP of 5. The patient's blood gases showed a pH of 7.53 with a pCO2 of 39 and pO2 of 98. The patient has a white cell count of 11.1 with a hemoglobin of 8.5. She is currently nothing by mouth. Abdomen is nondistended. Surgical wound site over the mid abdomen is dry clean and intact. No direct tenderness. No rebound tenderness no guarding. There are some hypoactive bowel sounds. Renal function stable with a creatinine of 1.1. This electrodes are all within normal limits. LFTs are also within normal limits. Objective - Vital Signs Vital signs: Vital Signs Temp 99 F 04/05/20 12:00 Pulse 56 L 04/05/20 15:00 Resp 12 04/05/20 15:00 BP 108/43 04/05/20 15:00 Pulse Ox 98 04/05/20 15:00 Intake & Output 04/04/20 04/05/20 04/05/20 18:59 06:59 18:59 Intake Total 107.078 196.120 Output Total 625 700 Balance -517.922 -503.880 Weight 49.9 kg Intake: IV 104 117 Dextrose 5%-0.9% NaCl 1, 80 90 000 ml @ 10 mls/hr IV . Q24H [facility] Rx#:[id number] pressure bag 24 27 Intake, IV Titration 3.078 79.120 Amount Norepinephrine 8 mg In 2.782 0.557 Sodium Chloride 0.9% 250 ml @ 0.05 MCG/KG/MIN 4.77 mls/hr IV .Q24H [facility] Rx#: [id number] Propofol 1,000 mg In 0.296 78.563 Empty Bag 1 bag @ Titrate IV .Q0M [facility] Rx#: [id number] Output: Gastric Drainage 200 Urine 625 500 Other: Voiding Method Indwelling Catheter Indwelling Catheter Indwelling Catheter ABP, PAP, CO, CI - Last Documented Arterial Blood Pressure 114/37 - Exam Elderly female patient currently sedated on propofol, comfortable likely distress. Head exam was generally normal. There was no scleral icterus or corneal arcus. Mucous membranes were moist. Neck is supple and there is a positive JVDs bilaterally. There is no goiter or neck masses. Orogastric and orotracheal tube are both in place. Lungs sounds are diminished and there is some crackles in the mid and lower lung his bilaterally. Heart sounds are regular this systolic ejection murmur grade 4/6 radiating to the neck heard throughout the precordium mainly in the apex and along the left lateral sternal border. Abdomen is shows no significant distention. There is a incisional mid abdomen which is dry clean and intact. No direct tenderness. No rebound tenderness. No guarding. Hypoactive bowel sounds. No ascites. Examination of the extremities revealed easily palpable radial, femoral and pedal pulses. There was no cyanosis, clubbing or edema. Examination of the skin revealed no evidence of significant rashes, suspicious appearing nevi or other concerning lesions. Neurologically the patient is sedated. She withdraws to painful stimulation in all 4 extremities. - Labs CBC & Chem 7: 04/05/20 05:15 04/05/20 05:15 Labs: Abnormal Lab Results - Last 24 Hours (Table) 04/04/20 04/04/20 04/04/20 Range/Units 16:30 20:22 21:52 WBC (3.8-10.6) k/uL RBC (3.80-5.40) m/uL Hgb (11.4-16.0) gm/dL Hct (34.0-46.0) % MCV (80.0-100.0) fL MCH (25.0-35.0) pg MCHC (31.0-37.0) g/dL RDW (11.5-15.5) % Neutrophils # (1.3-7.7) k/uL Lymphocytes # (1.0-4.8) k/uL ABG pH 7.31 L (7.35-7.45) ABG pCO2 59 H (35-45) mmHg ABG pO2 229 H (83-108) mmHg ABG HCO3 30 H (21-25) mmol/L ABG Total CO2 31 H (19-24) mmol/L ABG O2 Saturation 99.4 H (94-97) % Sodium (137-145) mmol/L BUN (7-17) mg/dL Creatinine (0.52-1.04) mg/dL Glucose (74-99) mg/dL POC Glucose (mg/dL) 184 H 260 H (75-99) mg/dL Calcium (8.4-10.2) mg/dL Total Protein (6.3-8.2) g/dL Albumin (3.5-5.0) g/dL 04/04/20 04/04/20 04/05/20 Range/Units 21:55 21:55 00:03 WBC 14.6 H (3.8-10.6) k/uL RBC (3.80-5.40) m/uL Hgb 9.0 L (11.4-16.0) gm/dL Hct 31.5 L (34.0-46.0) % MCV (80.0-100.0) fL MCH 23.3 L (25.0-35.0) pg MCHC 28.7 L (31.0-37.0) g/dL RDW 22.0 H (11.5-15.5) % Neutrophils # 13.0 H (1.3-7.7) k/uL Lymphocytes # 0.5 L (1.0-4.8) k/uL ABG pH (7.35-7.45) ABG pCO2 (35-45) mmHg ABG pO2 (83-108) mmHg ABG HCO3 (21-25) mmol/L ABG Total CO2 (19-24) mmol/L ABG O2 Saturation (94-97) % Sodium 135 L (137-145) mmol/L BUN 22 H (7-17) mg/dL Creatinine 1.05 H (0.52-1.04) mg/dL Glucose 213 H (74-99) mg/dL POC Glucose (mg/dL) 182 H (75-99) mg/dL Calcium 7.8 L (8.4-10.2) mg/dL Total Protein 5.4 L (6.3-8.2) g/dL Albumin 2.5 L (3.5-5.0) g/dL 04/05/20 04/05/20 04/05/20 Range/Units 05:15 05:15 05:41 WBC 11.1 H (3.8-10.6) k/uL RBC 3.68 L (3.80-5.40) m/uL Hgb 8.9 L (11.4-16.0) gm/dL Hct 28.8 L (34.0-46.0) % MCV 78.5 L (80.0-100.0) fL MCH 24.3 L (25.0-35.0) pg MCHC 30.9 L (31.0-37.0) g/dL RDW 22.5 H (11.5-15.5) % Neutrophils # 8.1 H (1.3-7.7) k/uL Lymphocytes # (1.0-4.8) k/uL ABG pH 7.53 H (7.35-7.45) ABG pCO2 (35-45) mmHg ABG pO2 (83-108) mmHg ABG HCO3 29 H (21-25) mmol/L ABG Total CO2 30 H (19-24) mmol/L ABG O2 Saturation 98.6 H (94-97) % Sodium (137-145) mmol/L BUN 22 H (7-17) mg/dL Creatinine 1.11 H (0.52-1.04) mg/dL Glucose (74-99) mg/dL POC Glucose (mg/dL) (75-99) mg/dL Calcium 7.9 L (8.4-10.2) mg/dL Total Protein 5.2 L (6.3-8.2) g/dL Albumin 2.4 L (3.5-5.0) g/dL Microbiology - Last 24 Hours (Table) 04/04/20 20:45 Gram Stain - Preliminary Sputum Sputum Culture - Preliminary Assessment and Plan Plan: 1 acute hypoxic respiratory failure secondary to pulmonary edema, currently intubated on a mechanical ventilator 2 acute ventilator-dependent respiratory failure secondary to above. 3 severe valvular heart disease with aortic stenosis, as the patient is known to have moderate severe mitral regurgitation, moderate tricuspid regurgitation, moderate degree of pulmonary hypertension with a PA pressure of 39, Levaquin. Ejection fraction is no order of 50-55%. The patient has trace aortic insuf ficiency. 4 cecal mass post colectomy and the patient is postop day #2. The patient epidural catheter with ropivacaine and Dilaudid which was discontinued yesterday and the catheter is to be removed 5 history of esophageal stricture arrogant 6 coronary artery disease with previous coronary stent insertion 7 diabetes mellitus 8 hypertension with hypertensive heart disease with moderate concentric LVH. 9 hyperlipidemia 10 history of TIA 11 history of chronic anemia microcytic hypochromic with a component of iron deficiency 12 nonspecific pulmonary nodularity noted on the CT of the abdomen and pelvis, with 8 mm nodular density in the lingula and 1.5 cm nodular density in the region of the right middle lobe Plan Continue ventilator support Kept on the respiratory rate down to 12 based on some mild component of respiratory alkalosis Discontinued epidural catheter Lasix 20 mg IV push every 12 hours Indication: Hemodynamic monitoring/Intravenous access I'm going to a certain the triple-lumen catheter We'll activity clearance from surgery regarding enteral feeding and nutritional support IV fluids to KVO Levemir insulin at 8 units along with sciatica coverage No need for pressors We'll continue to follow. This evaluation was done and more than 30 minutes and this is a critically care evaluation. Time with Patient: Greater than 30
--- NOTE | 2020-04-05 16:17 | P.PN ---
Subjective Progress Note Date: 04/05/20 Principal diagnosis: Anemia and now cecal mass Patient became hypoxic overnight and is now in ICU, intubated and on ventilator support. She underwent Right hemicolectomy 04/04/20, immediately post operative appeared to be stable and well. On evaluation yesterday she was alert and with complaints of pain. Objective - Vital Signs Vital signs: Vital Signs Temp 99 F 04/05/20 12:00 Pulse 68 04/05/20 12:30 Resp 12 04/05/20 12:30 BP 117/48 04/05/20 12:30 Pulse Ox 98 04/05/20 12:30 Intake & Output 04/04/20 04/05/20 04/05/20 18:59 06:59 18:59 Intake Total 107.078 170.120 Output Total 625 615 Balance -517.922 -444.880 Weight 49.9 kg Intake: IV 104 91 Dextrose 5%-0.9% NaCl 1, 80 70 000 ml @ 10 mls/hr IV . Q24H [facility] Rx#:[id number] pressure bag 24 21 Intake, IV Titration 3.078 79.120 Amount Norepinephrine 8 mg In 2.782 0.557 Sodium Chloride 0.9% 250 ml @ 0.05 MCG/KG/MIN 4.77 mls/hr IV .Q24H [facility] Rx#: [id number] Propofol 1,000 mg In 0.296 78.563 Empty Bag 1 bag @ Titrate IV .Q0M [facility] Rx#: [id number] Output: Gastric Drainage 200 Urine 625 415 Other: Voiding Method Indwelling Catheter Indwelling Catheter Indwelling Catheter ABP, PAP, CO, CI - Last Documented Arterial Blood Pressure 122/46 - Exam - General Ventilator and Sedated - Eyes BASSEM Skin: No lesion, rashes - Area of recent surgical incision CDI - Neck no masses - Respiratory Ventilator - Cardiovascular TAchycardia - Abdomen Ditended, evidence of recent surgical intervention Ext: BLE edema Psch: BASSEM - Labs CBC & Chem 7: 04/05/20 05:15 04/05/20 05:15 Labs: Abnormal Lab Results - Last 24 Hours (Table) 04/04/20 04/04/20 04/04/20 Range/Units 16:30 20:22 21:52 WBC (3.8-10.6) k/uL RBC (3.80-5.40) m/uL Hgb (11.4-16.0) gm/dL Hct (34.0-46.0) % MCV (80.0-100.0) fL MCH (25.0-35.0) pg MCHC (31.0-37.0) g/dL RDW (11.5-15.5) % Neutrophils # (1.3-7.7) k/uL Lymphocytes # (1.0-4.8) k/uL ABG pH 7.31 L (7.35-7.45) ABG pCO2 59 H (35-45) mmHg ABG pO2 229 H (83-108) mmHg ABG HCO3 30 H (21-25) mmol/L ABG Total CO2 31 H (19-24) mmol/L ABG O2 Saturation 99.4 H (94-97) % Sodium (137-145) mmol/L BUN (7-17) mg/dL Creatinine (0.52-1.04) mg/dL Glucose (74-99) mg/dL POC Glucose (mg/dL) 184 H 260 H (75-99) mg/dL Calcium (8.4-10.2) mg/dL Total Protein (6.3-8.2) g/dL Albumin (3.5-5.0) g/dL 04/04/20 04/04/20 04/05/20 Range/Units 21:55 21:55 00:03 WBC 14.6 H (3.8-10.6) k/uL RBC (3.80-5.40) m/uL Hgb 9.0 L (11.4-16.0) gm/dL Hct 31.5 L (34.0-46.0) % MCV (80.0-100.0) fL MCH 23.3 L (25.0-35.0) pg MCHC 28.7 L (31.0-37.0) g/dL RDW 22.0 H (11.5-15.5) % Neutrophils # 13.0 H (1.3-7.7) k/uL Lymphocytes # 0.5 L (1.0-4.8) k/uL ABG pH (7.35-7.45) ABG pCO2 (35-45) mmHg ABG pO2 (83-108) mmHg ABG HCO3 (21-25) mmol/L ABG Total CO2 (19-24) mmol/L ABG O2 Saturation (94-97) % Sodium 135 L (137-145) mmol/L BUN 22 H (7-17) mg/dL Creatinine 1.05 H (0.52-1.04) mg/dL Glucose 213 H (74-99) mg/dL POC Glucose (mg/dL) 182 H (75-99) mg/dL Calcium 7.8 L (8.4-10.2) mg/dL Total Protein 5.4 L (6.3-8.2) g/dL Albumin 2.5 L (3.5-5.0) g/dL 04/05/20 04/05/20 04/05/20 Range/Units 05:15 05:15 05:41 WBC 11.1 H (3.8-10.6) k/uL RBC 3.68 L (3.80-5.40) m/uL Hgb 8.9 L (11.4-16.0) gm/dL Hct 28.8 L (34.0-46.0) % MCV 78.5 L (80.0-100.0) fL MCH 24.3 L (25.0-35.0) pg MCHC 30.9 L (31.0-37.0) g/dL RDW 22.5 H (11.5-15.5) % Neutrophils # 8.1 H (1.3-7.7) k/uL Lymphocytes # (1.0-4.8) k/uL ABG pH 7.53 H (7.35-7.45) ABG pCO2 (35-45) mmHg ABG pO2 (83-108) mmHg ABG HCO3 29 H (21-25) mmol/L ABG Total CO2 30 H (19-24) mmol/L ABG O2 Saturation 98.6 H (94-97) % Sodium (137-145) mmol/L BUN 22 H (7-17) mg/dL Creatinine 1.11 H (0.52-1.04) mg/dL Glucose (74-99) mg/dL POC Glucose (mg/dL) (75-99) mg/dL Calcium 7.9 L (8.4-10.2) mg/dL Total Protein 5.2 L (6.3-8.2) g/dL Albumin 2.4 L (3.5-5.0) g/dL Microbiology - Last 24 Hours (Table) 04/04/20 20:45 Gram Stain - Preliminary Sputum Sputum Culture - Preliminary Assessment and Plan Plan: Assessment and Plan Acute Hypoxic Respiratory Failure: - Currently in ICU care on ventilator - ?Pulmonary Edema Per Pulm and ICU care Microcytic hypochromic anemia - - Multifactorial Iron deficiency with component of CKD and now GI Mass responsible for Blood loss component - Parental Iron to continue - Daily CBC - 4 week outpatient hematology follow-up - GI Work-up was performed and 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 - It was confirmed that the [facility] is able to administer Aranesp. - Orders have been placed in the discharge paperwork for same. -surgical resection 04/03 of newly found mass Will plan to see her in follow-up in 3-4 weeks for recommendations on adjuvent treatment after patient recovers from current acute respiratory status, continue current treatment per ICU.
--- NOTE | 2020-04-05 16:48 | P.PCN ---
Date of Procedure: 04/05/20 Preoperative Diagnosis: Acute hypoxic respiratory failure Postoperative Diagnosis: Acute hypoxic respiratory failure Procedure(s) Performed: Insertion of a triple-lumen catheter Anesthesia: local Surgeon: Fiona Albarran Estimated Blood Loss (ml): 0 Condition: critical Disposition: ICU Operative Findings: Indication: Hemodynamic monitoring/Intravenous access. A time-out was completed verifying correct patient, procedure, site, positioning, and implant(s) or special equipment if applicable. The patient was placed in a dependent position appropriate for central line placement based on the vein to be cannulated. The patient's right groin was prepped and draped in sterile fashion. 1% Lidocaine was used to anesthetize the surrounding skin area. A triple lumen 9F Cordis catheter was introduced into the common femoral vein using Seldinger technique. The catheter was threaded smoothly over the guide wire and appropriate blood return was obtained. Each lumen of the catheter was evacuated of air and flushed with sterile saline. The catheter was then sutured in place to the skin and a sterile dressing applied. Perfusion to the extremity distal to the point of catheter insertion was checked and found to be adequate. The patient tolerated the procedure well and there were no complications.
[2020-04-05 18:03] LABS: Glucose,Whole Blood 58 mg/dL (75-99)
[2020-04-05] MEDS ORDERED: DEXTROSE 50% SYRINGE 50 ML IVP ONE (18:03)
[2020-04-05 20:08] LABS: Glucose,Whole Blood 109 mg/dL (75-99)
[2020-04-05] MEDS: FUROSEMIDE 10 MG/ML 2 ML VIAL IV SCH (20:31)
[2020-04-05 23:42] LABS: Glucose,Whole Blood 81 mg/dL (75-99)
[2020-04-05] MEDS: NOREPINEPHRINE 8 MG in SODIUM CHLORIDE 0.9% 250 ML IV SCH (23:46)
[2020-04-06 04:18] LABS: Glucose,Whole Blood 89 mg/dL (75-99)
[2020-04-06 05:09] LABS: ABG Base Excess 5.4 mmol/L; ABG HCO3 29 mmol/L (21-25); ABG Oxygen Saturation 98.9 % (94-97); ABG PCO2 40 mmHg (35-45); ABG PH 7.47 (7.35-7.45); ABG PO2 115 mmHg (83-108); ABG TCO2 30 mmol/L (19-24); Allen Test Performed? Yes
[2020-04-06 05:11] LABS: Glucose,Whole Blood 84 mg/dL (75-99)
[2020-04-06 05:35] LABS: Calcium 7.9 mg/dL (8.4-10.2); Potassium 3.6 mmol/L (3.5-5.1)
[2020-04-06] MEDS: INSULIN ASPART (NovoLOG) 100 UNIT/ML VIAL SQ SCH ×3 (05:55→17:18)
--- NOTE | 2020-04-06 07:43 | XR ---
EXAMINATION TYPE: XR chest 1V DATE OF EXAM: 04/06/2020 COMPARISON: Prior chest x-ray dated 04/05/2020 HISTORY: Intubated, pulmonary edema TECHNIQUE: Single frontal view of the chest is obtained. FINDINGS: Endotracheal tube is overlying the tracheal air column, distal tip is at the level of the meggan. No evident pneumothorax. Bibasilar increased attenuation persists, NG tube is in place. No ca lcified granuloma left lower lobe. Patient is rotated, heart is enlarged. IMPRESSION: Correlate for congestive heart failure with basilar effusions.
[2020-04-06 08:09] LABS: Anisocytosis Moderate; Basophils % (A) 0 %; Eosinophils # (A) 0.7 k/uL (0-0.7); Eosinophils % (A) 7 %; HCT 28.8 % (34.0-46.0); HGB 8.7 gm/dL (11.4-16.0); Hypochromasia Marked; Lymphocytes # (A) 1.5 k/uL (1.0-4.8); Lymphocytes % (A) 13 %; MCHC 30.1 g/dL (31.0-37.0); MCV 79.8 fL (80.0-100.0); Mean Platelet Volume 8.6; Microcytosis Moderate; Monocytes % (A) 9 %; Neutrophils # (A) 7.7 k/uL (1.3-7.7); Neutrophils % (A) 70 %; Platelet Count 251 k/uL (150-450); RBC 3.61 m/uL (3.80-5.40); RDW 22.7 % (11.5-15.5)
[2020-04-06] MEDS ORDERED: Potassium Replacement Protocol 1 EACH MISC MISCELLANE PRN (08:25)
[2020-04-06] MEDS: IPRATROPIUM 0.5 MG/2.5 ML NEBU INHALATION SCH ×4 (08:27→19:17)
[2020-04-06] MEDS: DEXTROSE 5%-0.9% NACL 1,000 ML IV SCH ×2 (08:45→09:23)
[2020-04-06] MEDS ORDERED: POTASSIUM BICARBONATE/CIT AC 20 MEQ TABLET.EFF NG-TUBE SCH (09:00)
[2020-04-06] MEDS: HEPARIN SODIUM,PORCINE 5,000 UNIT/ML 1 ML VIAL SQ SCH ×3 (09:21→23:37)
[2020-04-06] MEDS: FUROSEMIDE 10 MG/ML 2 ML VIAL IV SCH ×2 (09:22→20:01)
[2020-04-06] MEDS: PANTOPRAZOLE 40 MG/10 ML VIAL IVP SCH (09:22)
[2020-04-06] MEDS: CHLORHEXIDINE GLUCONATE 15 ML CUP MUCOUS MEM SCH ×2 (09:22→20:00)
[2020-04-06] MEDS: METOPROLOL TARTRATE 50 MG TAB PO SCH ×2 (09:22→20:00)
[2020-04-06] MEDS: HYDROmorphone 1 MG/ML 1 ML SYRINGE IVP PRN ×2 (10:00→20:08)
[2020-04-06] MEDS ORDERED: DILTIAZEM DRIP BOLUS FROM BAG 1 MG SOLN IV ONE (10:07)
[2020-04-06] MEDS ORDERED: DILTIAZEM 125 MG in SODIUM CHLORIDE 0.9% 100 ML IV SCH (10:15)
[2020-04-06] MEDS: NOREPINEPHRINE 8 MG in SODIUM CHLORIDE 0.9% 250 ML IV SCH (10:43)
--- NOTE | 2020-04-06 11:01 | P.PN ---
Progress Note - Text Progress Note Date: 04/06/20 Patient remains on the ventilator. She has been diuresed overnight. Her vital signs are stable. On exam vital signs are stable. Abdomen soft. Incision is clean dry and intact. Respiratory failure secondary to previous heart failure. Patient will be hopefully extubated the next 24-48 hours. She can resume oral feedings that time. If necessary she may start tube feedings now.
[2020-04-06] MEDS ORDERED: DEXTROSE 5% IN WATER 100 ML with AMIODARONE 150 MG IV ONE (11:45)
[2020-04-06 11:49] LABS: Glucose,Whole Blood 96 mg/dL (75-99)
--- NOTE | 2020-04-06 13:17 | P.PN ---
Subjective Progress Note Date: 04/06/20 The patient is seen today 03/30/2020 in follow-up on the selective care unit. She is currently resting comfortably in bed. Awake and alert in no acute distress. Denies any worsening shortness of breath cough or congestion. No noted bleeding. White count 8.6. Hemoglobin 7.9. Sodium 136. Potassium 3.8. Creatinine 1.46. She is status post 1 unit of packed red blood cells this admission. Plan is for EGD/colonoscopy today. On 03/31/2020 patient seen in follow-up on selective care unit, she is awake and alert, in no acute distress, patient is extremely hard of hearing which makes communicating with her very difficult. Her breathing is comfortable, she is currently on 2 L of oxygen with a pulse ox of 99 200%, lung sounds are clear. No rhonchi, no wheezing. Yesterday patient could not complete her EGD related to stricture, and procedure was aborted, colonoscopy revealed a cecal mass, s tatus post biopsies. The mass was suspicious for neoplasm. CT of abdomen and pelvis has been completed showing soft tissue at the level of the cecum, and nonspecific pulmonary nodularity, with 8 mm nodular density in the region of the lingula as well as the 1.5 cm nodular density in the region of the right middle lobe which could be postinflammatory in nature. Dedicated computed tomography scan of the chest was advised. On 04/03/2020 patient seen in follow-up on [facility]] care unit, she is sitting up in the chair, in no acute distress, she is currently on 2 L of oxygen pulse ox of 99%, hemodynamically stable, she is afebrile, her abdomen is soft, although somewhat distended. 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 His labs have been reviewed, with blood cell count is 9.2, hemoglobin is 9.7. Patient is status post transfusion with 2 units of packed red blood cells this admission. Denies any chest pain, she does admit to being somewhat short of breath, lung sounds reveal faint wheezes in the upper lobes. He is on breathing treatments, Symbicort, she is on maintenance dose of oral Lasix. Patient has not had any new chest x-rays since admission On 04/04/2020 patient seen in follow-up on selective care unit, she status post right colectomy, this is postoperative day 1. Patient is complaining of a lot of abdominal incisional pain. She is on epidural infusion with bupivacaine and Dilaudid currently running at 5 ML per hour. IV D5 half-normal saline with 20 of potassium at 125 ML per hour. Abdomen is soft, she denies any nausea or vomiting. She denies having much of an appetite. She refused her morning tray. Bowel sounds are active 4, but she has not passed any bowel movement or passed gas, mid abdominal incision is clean dry and intact, covered with surgical dressing with minimal amount of sanguinous drainage which is old. Today's labs have been reviewed, showing white blood cell count of 11.4, hemoglobin is 9.2, serum sodium is 135, the rest of electrolytes were within normal limits, BUN is 24 creatinine is 0.91. Patient had some mild confusion last night, she is answering questions appropriately, however patient is very hard of hearing, she is answering basic questions appropriately, does not seem to be confused this morning. Vital signs are stable. She is on 2 L of oxygen a pulse ox of 99%. Breathing is comfortable, low-grade fever this morning, with a temp of 99.3, and was afebrile. On today's evaluation of 04/05/2020, the patient is being seen in intensive care unit. Note that the patient got chest with the ICU as the patient went into acute respiratory failure due to an acute pulmonary edema. She is known to have severe mitral regurgitation with a preserved LV function is some increased echocardiogram.. Note that she came in to the ICU and she was quite hypoxic and tachypneic and unresponsive. We had to intubated and placed on a mechanical ventilator. Accordingly, the patient was vented and this morning she is calm and comfortable on propofol running at 50 g per KG per minute. IV fluids at KVO. She is producing adequate amount of urine output. Overnight she was given a dose of Lasix and she is achieving a negative fluid balance. I will continue the Lasix at a dose of 20 mg IV push every 12 hours. Chest x-ray still showing pulmonary edema. His morning, she is an assist-control mode of ventilation at the rate of 20 with tidal volume of 400 and FiO2 of 40% with a PEEP of 5. The patient's blood gases showed a pH of 7.53 with a pCO2 of 39 and pO2 of 98. The patient has a white cell count of 11.1 with a hemoglobin of 8.5. She is currently nothing by mouth. Abdomen is nondistended. Surgical wound site over the mid abdomen is dry clean and intact. No direct tenderness. No rebound tenderness no guarding. There are some hypoactive bowel sounds. Renal function stable with a creatinine of 1.1. This electrodes are all within normal limits. LFTs are also within normal limits. On 04/06/2020, the patient remains intubated on a mechanical ventilator. She is arousable with stimulation despite being on propofol. The patient is on propofol at 40 mg per KG per minute. She is also receiving IV Lasix 20 mg every 12 hours pH she remains in a negative fluid balance. Chest x-ray showing small bilateral pleural effusion and increased pulmonary vascular markings consistent with CHF. Noted the patient has severe aortic stenosis along with a component of mitral regurgitation. This morning, she is an assist-control mode at the rate of 12 with a tidal volume of 400 and FiO2 of 40% with a PEEP of 5. The blood gases from this morning showed a pH of 7.47 with a pCO2 of 40 and pO2 115. The white cell count is at 11 with a hemoglobin of 8.7. I was in the process of getting this patient a sedation holiday. Nevertheless, the patient went into atrial fibrillation with rapid ventricular response and the patient was started on a amiodarone drip for rate control. Based on this, I aborted on the further weaning that I was planning earlier. The plan for now is to control the heart rate for now. We also get a clearance from surgery regarding her feeds and if not extubated today we'll may started on some tube feeds for enteral feeding and nutritional support. The patient has adequate urine output. The patient and without active stable. A triple lumen catheter was established yesterday. No other significant events overnight. She continues to diabetes adequately and the patient is being seen by cardiology on a regular basis. Objective - Vital Signs Vital signs: Vital Signs Temp 98.8 F 04/06/20 08:00 Pulse 115 H 04/06/20 12:01 Resp 27 H 04/06/20 10:00 BP 163/70 04/06/20 10:00 Pulse Ox 99 04/06/20 10:00 Intake & Output 04/05/20 04/06/2004/06/20 18:59 06:59 18:59 Intake Total 302.943 736 421.698 Output Total 815 900 460 Balance -512.057 -164 -38.302 Weight 50.4 kg 50.4 kg Intake: IV 156 636 212 Dextrose 5%-0.9% NaCl 1, 120 600 200 000 ml @ 10 mls/hr IV . Q24H [facility] Rx#:[id number] Normal Saline Pressure 36 36 12 Bag Intake, IV Titration 146.943 100 149.698 Amount Norepinephrine 8 mg In 47.239 0 80.437 Sodium Chloride 0.9% 250 ml @ 0.05 MCG/KG/MIN 4.77 mls/hr IV .Q24H [facility] Rx#: [id number] Propofol 1,000 mg In 99.704 100 69.261 Empty Bag 1 bag @ Titrate IV .Q0M [facility] Rx#: [id number] Other 60 Output: Gastric Drainage 200 200 Urine 615 900 260 Other: Voiding Method Indwelling Catheter Indwelling Catheter ABP, PAP, CO, CI - Last Documented Arterial Blood Pressure 171/54 - Exam Elderly female patient currently sedated on propofol, comfortable likely distress. Patient is arousable. She is sent as a mechanical ventilator. Head exam was generally normal. There was no scleral icterus or corneal arcus. Mucous membranes were moist. Neck is supple and there is a positive JVDs bilaterally. There is no goiter or neck masses. Orogastric and orotracheal tube are both in place. Lungs sounds are diminished and there is some crackles in the mid and lower lung his bilaterally. Heart sounds are regular this systolic ejection murmur grade 4/6 radiating to the neck heard throughout the precordium mainly in the apex and along the left lateral sternal border. Abdomen is shows no significant distention. There is a incisional mid abdomen which is dry clean and intact. No direct tenderness. No rebound tenderness. No guarding. Hypoactive bowel sounds. No ascites. Examination of the extremities revealed easily palpable radial, femoral and pedal pulses. There was no cyanosis, clubbing or edema. Examination of the skin revealed no evidence of significant rashes, suspicious appearing nevi or other concerning lesions. Neurologically the patient is sedated. She withdraws to painful stimulation in all 4 extremities. - Labs CBC & Chem 7: 04/06/20 05:10 04/06/20 11:45 Labs: Abnormal Lab Results - Last 24 Hours (Table) 04/05/20 04/05/20 04/06/20 Range/Units 18:01 20:07 05:04 WBC (3.8-10.6) k/uL RBC (3.80-5.40) m/uL Hgb (11.4-16.0) gm/dL Hct (34.0-46.0) % MCV (80.0-100.0) fL MCH (25.0-35.0) pg MCHC (31.0-37.0) g/dL RDW (11.5-15.5) % ABG pH 7.47 H (7.35-7.45) ABG pO2 115 H (83-108) mmHg ABG HCO3 29 H (21-25) mmol/L ABG Total CO2 30 H (19-24) mmol/L ABG O2 Saturation 98.9 H (94-97) % BUN (7-17) mg/dL Creatinine (0.52-1.04) mg/dL POC Glucose (mg/dL) 58 L 109 H (75-99) mg/dL Calcium (8.4-10.2) mg/dL 04/06/20 04/06/20 Range/Units 05:10 05:10 WBC 11.0 H (3.8-10.6) k/uL RBC 3.61 L (3.80-5.40) m/uL Hgb 8.7 L (11.4-16.0) gm/dL Hct 28.8 L (34.0-46.0) % MCV 79.8 L (80.0-100.0) fL MCH 24.0 L (25.0-35.0) pg MCHC 30.1 L (31.0-37.0) g/dL RDW 22.7 H (11.5-15.5) % ABG pH (7.35-7.45) ABG pO2 (83-108) mmHg ABG HCO3 (21-25) mmol/L ABG Total CO2 (19-24) mmol/L ABG O2 Saturation (94-97) % BUN 24 H (7-17) mg/dL Creatinine 1.21 H (0.52-1.04) mg/dL POC Glucose (mg/dL) (75-99) mg/dL Calcium 7.9 L (8.4-10.2) mg/dL Assessment and Plan Plan: 1 acute hypoxic respiratory failure secondary to pulmonary edema, currently intubated on a mechanical ventilator. The patient is going into her second day of being intubated on a mechanical ventilator. Chest x-ray still showing pulmonary edema and bilateral pleural effusions. The patient responded to diuretics. 2 acute ventilator-dependent respiratory failure secondary to above. 3 severe valvular heart disease with severe aortic stenosis, as the patient is known to have moderate severe mitral regurgitation, moderate tricuspid regurgitation, moderate degree of pulmonary hypertension with a PA pressure of 39, Levaquin. Ejection fraction is no order of 50-55%. The patient has trace aortic insufficiency. 4 cecal mass post colectomy and the patient is postop day # 3. The orogastric tube is in place and the patient is still nothing by mouth for now. 5 history of esophageal stricture 6 coronary artery disease with previous coronary stent insertion 7 diabetes mellitus 8 hypertension with hypertensive heart disease with moderate concentric LVH. 9 hyperlipidemia 10 history of TIA 11 history of chronic anemia microcytic hypochromic with a component of iron def iciency 12 nonspecific pulmonary nodularity noted on the CT of the abdomen and pelvis, with 8 mm nodular density in the lingula and 1.5 cm nodular density in the region of the right middle lobe 13 new onset atrial fibrillation with rapid ventricular response and currently she is on a amiodarone drip. Plan Continue ventilator support IV Lasix 20 mg every 12 hours Amiodarone drip for rate control Possible extubation today depending on her hemodynamics and her weaning parameters and her ability to recover from sedation Continue Cardizem drip Continue IV Lasix Continue bronchodilators If failed extubation today, we are going to proceed with enteral feeding for nutritional support We'll continue to follow. This evaluation was done and more than 30 minutes and this is a critically care evaluation. Time with Patient: Greater than 30
--- NOTE | 2020-04-06 13:32 | P.PN ---
Subjective Progress Note Date: 04/06/20 Principal diagnosis: Anemia and now cecal mass Still ventilated, Objective - Vital Signs Vital signs: Vital Signs Temp 98.8 F 04/06/20 08:00 Pulse 115 H 04/06/20 12:01 Resp 27 H 04/06/20 10:00 BP 163/70 04/06/20 10:00 Pulse Ox 99 04/06/20 10:00 Intake & Output 04/05/20 04/06/20 04/06/20 18:59 06:59 18:59 Intake Total 302.943 736 421.698 Output Total 815 900 460 Balance -512.057 -164 -38.302 Weight 50.4 kg 50.4 kg Intake: IV 156 636 212 Dextrose 5%-0.9% NaCl 1, 120 600 200 000 ml @ 10 mls/hr IV . Q24H [facility] Rx#:[id number] Normal Saline Pressure 36 36 12 Bag Intake, IV Titration 146.943 100 149.698 Amount Norepinephrine 8 mg In 47.239 0 80.437 Sodium Chloride 0.9% 250 ml @ 0.05 MCG/KG/MIN 4.77 mls/hr IV .Q24H [facility] Rx#: [id number] Propofol 1,000 mg In 99.704 100 69.261 Empty Bag 1 bag @ Titrate IV .Q0M [facility] Rx#: [id number] Other 60 Output: Gastric Drainage 200 200 Urine 615 900 260 Other: Voiding Method Indwelling Catheter Indwelling Catheter ABP, PAP, CO, CI - Last Documented Arterial Blood Pressure 171/54 - Exam - General Ventilator and Sedated - Eyes BASSEM Skin: No lesion, rashes - Area of recent surgical incision CDI - Neck no masses - Respiratory Ventilator - Cardiovascular TAchycardia - Abdomen Ditended, evidence of recent surgical intervention Ext: BLE edema Psch: BASSEM - Labs CBC & Chem 7: 04/06/20 05:10 04/06/20 11:45 Labs: Abnormal Lab Results - Last 24 Hours (Table) 04/05/20 04/05/20 04/06/20 Range/Units 18:01 20:07 05:04 WBC (3.8-10.6) k/uL RBC (3.80-5.40) m/uL Hgb (11.4-16.0) gm/dL Hct (34.0-46.0) % MCV (80.0-100.0) fL MCH (25.0-35.0) pg MCHC (31.0-37.0) g/dL RDW (11.5-15.5) % ABG pH 7.47 H (7.35-7.45) ABG pO2 115 H (83-108) mmHg ABG HCO3 29 H (21-25) mmol/L ABG Total CO2 30 H (19-24) mmol/L ABG O2 Saturation 98.9 H (94-97) % BUN (7-17) mg/dL Creatinine (0.52-1.04) mg/dL POC Glucose (mg/dL) 58 L 109 H (75-99) mg/dL Calcium (8.4-10.2) mg/dL 04/06/20 04/06/20 Range/Units 05:10 05:10 WBC 11.0 H (3.8-10.6) k/uL RBC 3.61 L (3.80-5.40) m/uL Hgb 8.7 L (11.4-16.0) gm/dL Hct 28.8 L (34.0-46.0) % MCV 79.8 L (80.0-100.0) fL MCH 24.0 L (25.0-35.0) pg MCHC 30.1 L (31.0-37.0) g/dL RDW 22.7 H (11.5-15.5) % ABG pH (7.35-7.45) ABG pO2 (83-108) mmHg ABG HCO3 (21-25) mmol/L ABG Total CO2 (19-24) mmol/L ABG O2 Saturation (94-97) % BUN 24 H (7-17) mg/dL Creatinine 1.21 H (0.52-1.04) mg/dL POC Glucose (mg/dL) (75-99) mg/dL Calcium 7.9 L (8.4-10.2) mg/dL Assessment and Plan Plan: Assessment and Plan Acute Hypoxic Respiratory Failure: - Currently in ICU care on ventilator as of 04/05/20 - ?Pulmonary Edema Per Pulm and ICU care Microcytic hypochromic anemia - - Multifactorial Iron deficiency with component of CKD and now GI Mass responsible for Blood loss component - Parental Iron to continue - Daily CBC - 4 week outpatient hematology follow-up - GI Work-up was performed and 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 - It was confirmed that the custodial is able to administer Aranesp. - Orders have been placed in the discharge paperwork for same. - surgical resection 04/03 of newly found mass Will plan to see her in follow-up in 3-4 weeks for recommendations on adjuvant treatment after patient recovers from current acute respiratory status, continue current treatment per ICU. Physician Attest: I have completed the full history and physical and agree with above dictation dictated as a scribe.
--- NOTE | 2020-04-06 14:08 | CDI ---
Documentation Clarification Form Date: 04/06/2020 12:25:35 PM From: Jyoti Charles RN CCDS Admit Date: 03/28/2020 03:54:00 AM Patient Name: Sonal Ulloa Visit Number: [id number] Discharge Date: ATTENTION: The Clinical Documentation Specialists (CDI) and [facility] Coding Staff appreciate your assistance in clarifying documentation. Please respond to the clarification below the line at the bottom and electronically sign. The CDI & [facility] Coding staff will review the response and follow-up if needed. Please note: Queries are made part of the Legal Health Record. If you have any questions, please contact the author of this message via ITS. Dr. Fiona Albarran Congestive heart failure is documented in surgical progress note 04/05 History/Risk Factors: 89-year-old female presents to [facility] for low Hgb from ECF. Patient diagnosed with cecal mass; Right colectomy performed on 04/03. Medical history Atrial Fibrillation, CAD, Diastolic Heart Failure, GA and HTN. Clinical Indicators: Surgical progress note 04/05 The patient was transferred to the ICU last night and intubated for congestive heart failure and shortness of breath. Critical Care progress note 04/05 Acute hypoxic respiratory failure secondary to pulmonary edema, currently intubated on a mechanical ventilator. Per Internal Medicine progress note 04/02 Chronic diastolic heart failure with EF 55-60% VS/Pulse OX: Per event note in Nursing Notes 04/04 20:08 pt was in respiratory distress, O2 in the 60s 15L nonrebreather placed on patient. Vss in ICU 04/04 22:00 BP: 83/70; HR: 83; RR: 20; SpO2: 100% Mechanical Ventilator FiO2 50 04/04 Chest X Ray: Correlate for pulmonary edema and volume overload Treatment: 04/04 Mechanical ventilation; Lasix 40mg Iv x1; 04/05 Lasix 20mg Iv x1 changed to Q12H In your professional opinion, can you please clarify the acuity of CHF if known? Acute on Chronic Diastolic Heart Failure Unable to Determine Other, please specify (Last Revision: December 2017) Other, valvular heart disease, aortic stenosis MTDD
[2020-04-06] MEDS: AMIODARONE 360 MG in DEXTROSE 5% IN WATER 200 ML IV ONE ×4 (14:33→19:51)
--- NOTE | 2020-04-06 14:33 | PN ---
PROGRESS NOTE This lady had a surgery, colectomy yesterday, became progressively short of breath and worsening mentation. She was intubated. This morning she went into atrial fib, rate is rapid. She is known to have this condition. However, I will try Cardizem and if necessary, amiodarone. Prognosis remains guarded. Weaning efforts were in progress, but with atrial fibrillation rapid rate, weaning efforts may be held. Blood pressure is acceptable. JVD is noted. S1-S2 heard normally. Significant ejection systolic murmur is audible. Lungs reveal diminished air entry. Abdomen and lower extremity exam unchanged. This patient has significant aortic stenosis, also has multivessel PCI and moderate mitral regurgitation and history of paroxysmal and symptomatic atrial fibrillation. We will continue current medical regimen. Prognosis remains guarded. Dr. Albarran is seeing her from a critical care standpoint as well. MMYOBANIL / ADALIN: [id number] /
[2020-04-06] MEDS: DARBEPOETIN ALFA 40 MCG/0.4 ML SYRINGE SQ SCH (14:34)
[2020-04-06 17:13] LABS: Glucose,Whole Blood 111 mg/dL (75-99)
--- NOTE | 2020-04-06 17:57 | P.PN ---
Subjective Progress Note Date: 04/06/20 Sonal Ulloa is an 89-year-old female patient who presented to the emergency department today for evaluation of low hemoglobin. Patient is currently a resident at [facility] the [facility]. She had labs performed yesterday and hemoglobin was 6.1. she was sent to [facility] emergency room for evaluation , she received 1 unit of red blood cell transfusion in the emergency room and she started developing shortness of breath repeat hemoglobin was 9.1 patient has a known history of iron deficiency anemia . She was admitted to medical floor gastroenterology consultation and hematology consultation were requested for evaluation of chronic anemia . 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 Patient is otherwise stable there is no fever or chills no headache or dizziness no chest pain no shortness of breath no cough no nausea or vomiting no abdominal pain no diarrhea and no urinary symptoms. On 03/31/2020 patient was seen and examined on the medical floor, there is no fever or chills no headache or dizziness no chest pain no shortness of breath no cough no nausea or vomiting no dominant pain nor diarrhea no burning with urination no frequency or urgency no hematuria, hemoglobin today is 7.6 white blood count 8.0 potassium 3. . On 04/01/2020 patient was seen and examined on the medical floor she is alert and oriented 3 in no apparent distress she is very hard of hearing, she denies any pain or discomfort at this time there is no chest pain or shortness of breath no cough no nausea or vomiting no abdominal pain no diarrhea no blood in the stools no burning with urination no frequency or urgency and no hematuria On 04/02/2020 patient was seen and examined on the medical floor she is feeling well there is no fever or chills no headache or dizziness no chest pain no shortness of breath no cough no nausea or vomiting no abdominal pain no diarrhea no burning with urination no frequency or urgency no hematuria she is scheduled for surgery tomorrow 04/03/2020 patient was seen and examined on the medical floor she is alert and oriented 3 in no apparent distress there is no fever or chills no headache or dizziness no chest pain no shortness of breath no cough no nausea or vomiting no abdominal pain no diarrhea no burning with urination no frequency or urgency no hematuria patient is going for surgery today. 04/04/2020 patient was seen and examined on the medical floor she is alert, con fused, in no apparent distress there is no fever or chills no headache or dizziness no chest pain no shortness of breath no cough no nausea or vomiting no abdominal pain no diarrhea no burning with urination no frequency or urgency no hematuria patient is post op day #1 On 04/05/2020 Patient was seen and examined in the ICU, events from last night noted, patient developed worsening shortness of breath and tachypnea, [facility] STEFANIA was called and patient was transferred to ICU she was intubated and started on mechanical ventilation, at this time patient is intubated sedated maintained on mechanical ventilation, maintained on levophed for pressure support On 04/06/2020, the patient is intubated and maintained on a mechanical ventilator. The blood gases from this morning showed a pH of 7.47 with a pCO2 of 40 and pO2 115. white cell count is at 11 with a hemoglobin of 8.7. the patient went into atrial fibrillation with rapid ventricular response and the patient was started on a amiodarone drip for rate control. Cardiology and critical care following. Objective - Vital Signs Vital signs: Vital Signs Temp 98.8 F 04/06/20 08:00 Pulse 115 H 04/06/20 12:01 Resp 27 H 04/06/20 10:00 BP 163/70 04/06/20 10:00 Pulse Ox 99 04/06/20 10:00 Intake & Output 04/05/20 04/06/20 04/06/20 18:59 06:59 18:59 Intake Total 302.943 736 421.698 Output Total 815 900 460 Balance -512.057 -164 -38.302 Weight 50.4 kg 50.4 kg Intake: IV 156 636 212 Dextrose 5%-0.9% NaCl 1, 120 600 200 000 ml @ 10 mls/hr IV . Q24H [facility] Rx#:[id number] Normal Saline Pressure 36 36 12 Bag Intake, IV Titration 146.943 100 149.698 Amount Norepinephrine 8 mg In 47.239 0 80.437 Sodium Chloride 0.9% 250 ml @ 0.05 MCG/KG/MIN 4.77 mls/hr IV .Q24H [facility] Rx#: [id number] Propofol 1,000 mg In 99.704 100 69.261 Empty Bag 1 bag @ Titrate IV .Q0M [facility] Rx#: [id number] Other 60 Output: Gastric Drainage 200 200 Urine 615 900 260 Other: Voiding Method Indwelling Catheter Indwelling Catheter ABP, PAP, CO, CI - Last Documented Arterial Blood Pressure 171/54 - Exam In general patient is intubated sedated, maintained on mechanical ventilation HEENT head normocephalic and atraumatic Neck is supple no JVD no goiter no lymphadenopathy Chest exam reveals a few scattered crackles no wheezing Cardiac exam reveals regular heart sounds no gallops no murmurs Abdomen is soft nontender no organomegaly with normal bowel sounds Extremity exam reveals no edema no cyanosis or clubbing Neurological examination reveals no gross focal deficit - Labs CBC & Chem 7: 04/06/20 05:10 04/06/20 11:45 Labs: Abnormal Lab Results - Last 24 Hours (Table) 04/05/20 04/05/20 04/06/20 Range/Units 18:01 20:07 05:04 WBC (3.8-10.6) k/uL RBC (3.80-5.40) m/uL Hgb (11.4-16.0) gm/dL Hct (34.0-46.0) % MCV (80.0-100.0) fL MCH (25.0-35.0) pg MCHC (31.0-37.0) g/dL RDW (11.5-15.5) % ABG pH 7.47 H (7.35-7.45) ABG pO2 115 H (83-108) mmHg ABG HCO3 29 H (21-25) mmol/L ABG Total CO2 30 H (19-24) mmol/L ABG O2 Saturation 98.9 H (94-97) % BUN (7-17) mg/dL Creatinine (0.52-1.04) mg/dL POC Glucose (mg/dL) 58 L 109 H (75-99) mg/dL Calcium (8.4-10.2) mg/dL 04/06/20 04/06/20 Range/Units 05:10 05:10 WBC 11.0 H (3.8-10.6) k/uL RBC 3.61 L (3.80-5.40) m/uL Hgb 8.7 L (11.4-16.0) gm/dL Hct 28.8 L (34.0-46.0) % MCV 79.8 L (80.0-100.0) fL MCH 24.0 L (25.0-35.0) pg MCHC 30.1 L (31.0-37.0) g/dL RDW 22.7 H (11.5-15.5) % ABG pH (7.35-7.45) ABG pO2 (83-108) mmHg ABG HCO3 (21-25) mmol/L ABG Total CO2 (19-24) mmol/L ABG O2 Saturation (94-97) % BUN 24 H (7-17) mg/dL Creatinine 1.21 H (0.52-1.04) mg/dL POC Glucose (mg/dL) (75-99) mg/dL Calcium 7.9 L (8.4-10.2) mg/dL Assessment and Plan Plan: 1. Acute respiratory failure, likely related to pulmonary edema requiring transfer to ICU, intubation and mechanical ventilation 2. CKD stage 3 Will consult nephrology for possible outpatient follow-up for Procrit injections 3. fluid overload with shortness of breath after 1 unit red blood cell transfusion 4. Underlying history of hypertension 5. Underlying history of hyperlipidemia 6. Underlying history of COPD 7. Underlying history of insulin-dependent diabetes mellitus 8. surgery partial colectomy for colon mass, postoperative day #3 9. Atrial fibrillation with rapid ventricular response patient was started on amiodarone drip
[2020-04-06] MEDS ORDERED: AMIODARONE 300 MG in DEXTROSE 5% IN WATER 250 ML IV SCH ×2 (21:00)
[2020-04-07 00:14] LABS: Glucose,Whole Blood 126 mg/dL (75-99)
[2020-04-07] MEDS: INSULIN ASPART (NovoLOG) 100 UNIT/ML VIAL SQ SCH ×5 (00:14→23:19)
[2020-04-07] MEDS: HYDROmorphone 1 MG/ML 1 ML SYRINGE IVP PRN ×2 (03:45→11:45)
[2020-04-07] MEDS: DEXTROSE 5%-0.9% NACL 1,000 ML IV SCH ×2 (03:53→23:22)
[2020-04-07 05:05] LABS: ABG Base Excess 0.1 mmol/L; ABG HCO3 26 mmol/L (21-25); ABG Oxygen Saturation 98.8 % (94-97); ABG PCO2 49 mmHg (35-45); ABG PH 7.33 (7.35-7.45); ABG PO2 125 mmHg (83-108); ABG TCO2 28 mmol/L (19-24)
[2020-04-07 05:15] LABS: Glucose,Whole Blood 137 mg/dL (75-99)
[2020-04-07 05:27] LABS: Anisocytosis Moderate; Basophils % (A) 0 %; Eosinophils # (A) 0.6 k/uL (0-0.7); Eosinophils % (A) 6 %; HCT 27.3 % (34.0-46.0); HGB 8.3 gm/dL (11.4-16.0); Hypochromasia Marked; Lymphocytes # (A) 0.8 k/uL (1.0-4.8); Lymphocytes % (A) 8 %; MCH 24.3 pg (25.0-35.0); MCHC 30.2 g/dL (31.0-37.0); MCV 80.3 fL (80.0-100.0); Mean Platelet Volume 8.2; Microcytosis Slight; Monocytes # (A) 0.7 k/uL (0-1.0); Monocytes % (A) 7 %; Neutrophils # (A) 7.9 k/uL (1.3-7.7); Neutrophils % (A) 78 %; Platelet Count 244 k/uL (150-450); RDW 22.4 % (11.5-15.5); WBC 10.1 k/uL (3.8-10.6)
[2020-04-07 05:40] LABS: Allen Test Performed? no
[2020-04-07 06:13] LABS: Calcium 7.3 mg/dL (8.4-10.2); Potassium 3.9 mmol/L (3.5-5.1)
[2020-04-07] MEDS: IPRATROPIUM 0.5 MG/2.5 ML NEBU INHALATION SCH ×4 (07:44→20:47)
[2020-04-07] MEDS ORDERED: POTASSIUM BICARBONATE/CIT AC 20 MEQ TABLET.EFF NG-TUBE SCH (08:00)
--- NOTE | 2020-04-07 09:32 | PN ---
PROGRESS NOTE This lady has severe aortic stenosis status post multivessel PCI. She has paroxysmal atrial fibrillation. Yesterday, she was in atrial fibrillation with rapid rate. We started her on amiodarone drip. She is in sinus rhythm, sinus bradycardia with left bundle. I will discontinue amiodarone drip today and we will increase IV fluids from 50-100 cc/hour. Patient's urine output has decreased. She is however more hemodynamically stable. She is not on any pressors. Blood pressure is reasonable. S1- S2 heard normally. Ejection systolic murmur is audible. Lungs reveal ventilator assisted breath sounds. Abdomen and lower extremity exam is unchanged. PLAN: Plan is to discontinue amiodarone and cautiously increase IV fluids. Continue other supportive care and see if weaning efforts can be resumed today. MMODL / IJN: [id number] /
[2020-04-07] MEDS: PANTOPRAZOLE 40 MG/10 ML VIAL IVP SCH (09:37)
[2020-04-07] MEDS: FUROSEMIDE 10 MG/ML 2 ML VIAL IV SCH ×3 (09:37→23:23)
[2020-04-07] MEDS: HEPARIN SODIUM,PORCINE 5,000 UNIT/ML 1 ML VIAL SQ SCH ×3 (09:37→23:23)
[2020-04-07] MEDS: METOPROLOL TARTRATE 50 MG TAB PO SCH ×2 (09:37→19:51)
--- NOTE | 2020-04-07 09:40 | P.PN ---
Subjective Progress Note Date: 04/07/20 Sonal Ulloa is an 89-year-old female patient who presented to the emergency department today for evaluation of low hemoglobin. Patient is currently a resident at [facility]. She had labs performed yesterday and hemoglobin was 6.1. she was sent to [facility] emergency room for evaluation , she received 1 unit of red blood cell transfusion in the emergency room and she started developing shortness of breath repeat hemoglobin was 9.1 patient has a known history of iron deficiency anemia . She was admitted to medical floor gastroenterology consultation and hematology consultation were requested for evaluation of chronic anemia . 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 Patient is otherwise stable there is no fever or chills no headache or dizziness no chest pain no shortness of breath no cough no nausea or vomiting no abdominal pain no diarrhea and no urinary symptoms. On 03/31/2020 patient was seen and examined on the medical floor, there is no fever or chills no headache or dizziness no chest pain no shortness of breath no cough no nausea or vomiting no dominant pain nor diarrhea no burning with urination no frequency or urgency no hematuria, hemoglobin today is 7.6 white blood count 8.0 potassium 3. . On 04/01/2020 patient was seen and examined on the medical floor she is alert and oriented 3 in no apparent distress she is very hard of hearing, she denies any pain or discomfort at this time there is no chest pain or shortness of breath no cough no nausea or vomiting no abdominal pain no diarrhea no blood in the stools no burning with urination no frequency or urgency and no hematuria On 04/02/2020 patient was seen and examined on the medical floor she is feeling well there is no fever or chills no headache or dizziness no chest pain no shortness of breath no cough no nausea or vomiting no abdominal pain no diarrhea no burning with urination no frequency or urgency no hematuria she is scheduled for surgery tomorrow 04/03/2020 patient was seen and examined on the medical floor she is alert and oriented 3 in no apparent distress there is no fever or chills no headache or dizziness no chest pain no shortness of breath no cough no nausea or vomiting no abdominal pain no diarrhea no burning with urination no frequency or urgency no hematuria patient is going for surgery today. 04/04/2020 patient was seen and examined on the medical floor she is alert, con fused, in no apparent distress there is no fever or chills no headache or dizziness no chest pain no shortness of breath no cough no nausea or vomiting no abdominal pain no diarrhea no burning with urination no frequency or urgency no hematuria patient is post op day #1 On 04/05/2020 Patient was seen and examined in the ICU, events from last night noted, patient developed worsening shortness of breath and tachypnea, CODE STEFANIA was called and patient was transferred to ICU she was intubated and started on mechanical ventilation, at this time patient is intubated sedated maintained on mechanical ventilation, maintained on levophed for pressure support On 04/06/2020, the patient is intubated and maintained on a mechanical ventilator. The blood gases from this morning showed a pH of 7.47 with a pCO2 of 40 and pO2 115. white cell count is at 11 with a hemoglobin of 8.7. the patient went into atrial fibrillation with rapid ventricular response and the patient was started on a amiodarone drip for rate control. Cardiology and critical care following. On 04/07/2020 patient was seen and examined in the ICU she is intubated sedated maintained on mechanical ventilation, ABGs this morning pH 7.33 pCO2 49 pO2 125 white blood count 10.1 hemoglobin 8.3 platelet count 244 BUN 27 creatinine 1.32 plan for today is to try to wean her off ventilation and extubate her if she is doing well, yesterday she had an episode of atrial fibrillation with rapid ventricular response she was seen by cardiology and she had amiodarone drip, patient is off amiodarone drip at this time. I had a prolonged discussion over the phone with patient's daughter Anai, all questions were answered. Objective - Vital Signs Vital signs: Vital Signs Temp 97.9 F 04/07/20 08:00 Pulse 52 L 04/07/20 08:00 Resp 14 04/07/20 08:00 BP 136/48 04/07/20 08:00 Pulse Ox 100 04/07/20 08:00 Intake & Output 04/06/20 04/07/20 04/07/20 18:59 06:59 18:59 Intake Total 1243.832 911.264 249.213 Output Total 755 637 60 Balance 488.832 274.264 189.213 Weight 50.4 kg 51.1 kg Intake: IV 236 36 6 Dextrose 5%-0.9% NaCl 1, 200 000 ml @ 10 mls/hr IV . Q24H [facility] Rx#:[id number] Normal Saline Pressure 36 36 6 Bag Intake, IV Titration 947.832 875.264 243.213 Amount Amiodarone 360 mg In 166.62 209.995 Dextrose 5% in Water 200 ml @ 1 MG/MIN 33.333 mls/ hr IV .Q6H [facility] Rx#: [id number] Dextrose 5% in Water 100 100 ml @ 618 mls/hr IV .Q10M [facility] with Amiodarone 150 mg Rx#:[id number] Dextrose 5%-0.9% NaCl 1, 400 600 150 000 ml @ 50 mls/hr IV . Q20H [facility] Rx#:[id number] Norepinephrine 8 mg In 111.951 Sodium Chloride 0.9% 250 ml @ 0.05 MCG/KG/MIN 4.77 mls/hr IV .Q24H [facility] Rx#: [id number] Propofol 1,000 mg In 169.261 65.269 93.213 Empty Bag 1 bag @ Titrate IV .Q0M [facility] Rx#: [id number] Other 60 Output: Gastric Drainage 200 300 Urine 555 337 60 Other: Voiding Method Indwelling Catheter Indwelling Catheter Indwelling Catheter ABP, PAP, CO, CI - Last Documented Arterial Blood Pressure 131/40 - Exam In general patient is intubated sedated, maintained on mechanical ventilation HEENT head normocephalic and atraumatic Neck is supple no JVD no goiter no lymphadenopathy Chest exam reveals a few scattered crackles no wheezing Cardiac exam reveals regular heart sounds no gallops no murmurs Abdomen is soft nontender no organomegaly with normal bowel sounds Extremity exam reveals no edema no cyanosis or clubbing Neurological examination reveals no gross focal deficit - Labs CBC & Chem 7: 04/07/20 05:05 04/07/20 05:05 Labs: Abnormal Lab Results - Last 24 Hours (Table) 04/06/20 04/07/20 04/07/20 Range/Units 17:11 00:12 05:04 RBC (3.80-5.40) m/uL Hgb (11.4-16.0) gm/dL Hct (34.0-46.0) % MCH (25.0-35.0) pg MCHC (31.0-37.0) g/dL RDW (11.5-15.5) % Neutrophils # (1.3-7.7) k/uL Lymphocytes # (1.0-4.8) k/uL ABG pH 7.33 L (7.35-7.45) ABG pCO2 49 H (35-45) mmHg ABG pO2 125 H (83-108) mmHg ABG HCO3 26 H (21-25) mmol/L ABG Total CO2 28 H (19-24) mmol/L ABG O2 Saturation 98.8 H (94-97) % Chloride (98-107) mmol/L BUN (7-17) mg/dL Creatinine (0.52-1.04) mg/dL Glucose (74-99) mg/dL POC Glucose (mg/dL) 111 H 126 H (75-99) mg/dL Calcium (8.4-10.2) mg/dL 04/07/20 04/07/20 04/07/20 Range/Units 05:05 05:05 05:14 RBC 3.40 L (3.80-5.40) m/uL Hgb 8.3 L (11.4-16.0) gm/dL Hct 27.3 L (34.0-46.0) % MCH 24.3 L (25.0-35.0) pg MCHC 30.2 L (31.0-37.0) g/dL RDW 22.4 H (11.5-15.5) % Neutrophils # 7.9 H (1.3-7.7) k/uL Lymphocytes # 0.8 L (1.0-4.8) k/uL ABG pH (7.35-7.45) ABG pCO2 (35-45) mmHg ABG pO2 (83-108) mmHg ABG HCO3 (21-25) mmol/L ABG Total CO2 (19-24) mmol/L ABG O2 Saturation (94-97) % Chloride 108 H (98-107) mmol/L BUN 27 H (7-17) mg/dL Creatinine 1.32 H (0.52-1.04) mg/dL Glucose 127 H (74-99) mg/dL POC Glucose (mg/dL) 137 H (75-99) mg/dL Calcium 7.3 L (8.4-10.2) mg/dL Assessment and Plan Plan: 1. Acute respiratory failure, likely related to pulmonary edema requiring transfer to ICU, intubation and mechanical ventilation 2. CKD stage 3 Will consult nephrology for possible outpatient follow-up for Procrit injections 3. fluid overload with shortness of breath after 1 unit red blood cell transfusion 4. Underlying history of hypertension 5. Underlying history of hyperlipidemia 6. Underlying history of COPD 7. Underlying history of insulin-dependent diabetes mellitus 8. surgery partial colectomy for colon mass, postoperative day #3 9. Atrial fibrillation with rapid ventricular response patient was started on amiodarone drip
--- NOTE | 2020-04-07 11:09 | XR ---
EXAMINATION TYPE: XR chest 1V DATE OF EXAM: 04/07/2020 COMPARISON: 04/06/2020 INDICATION: Pulmonary edema intubated TECHNIQUE: Single frontal view of the chest is obtained. FINDINGS: The heart size is mildly prominent. The pulmonary vasculature is prominent. Small right pleural effusion is present. Small left pleural effusion is present. Endotracheal tube tip. Approximately 5 mm above the meggan. This should be pulled back. Nasogastric tube transverses the tho rax the tip within the abdomen. IMPRESSION: 1. Clinical correlation recommended for congestive heart failure. 2. Low-lying endotracheal tube. This should be pulled back approximately 2 cm. A [place] critical message alert has been initiated for Fiona Albarran MD via the Not iT Critical Results System on 04/07/2020 11:06 AM. This message alert has been sent to Fiona mendoza MD via the preferences provided by the clinician for the receipt of Radiology Critical Findings. Margarita essage ID [id number].
[2020-04-07 11:12] LABS: ABG Base Excess 0.9 mmol/L; ABG HCO3 26 mmol/L (21-25); ABG PCO2 45 mmHg (35-45); ABG PH 7.38 (7.35-7.45); ABG PO2 131 mmHg (83-108); ABG TCO2 28 mmol/L (19-24)
[2020-04-07 11:40] LABS: Glucose,Whole Blood 117 mg/dL (75-99)
[2020-04-07] MEDS: CHLORHEXIDINE GLUCONATE 15 ML CUP MUCOUS MEM SCH (11:45)
--- NOTE | 2020-04-07 13:05 | P.PN ---
Subjective Progress Note Date: 04/07/20 The patient is seen today 03/30/2020 in follow-up on the selective care unit. She is currently resting comfortably in bed. Awake and alert in no acute distress. Denies any worsening shortness of breath cough or congestion. No noted bleeding. White count 8.6. Hemoglobin 7.9. Sodium 136. Potassium 3.8. Creatinine 1.46. She is status post 1 unit of packed red blood cells this admission. Plan is for EGD/colonoscopy today. On 03/31/2020 patient seen in follow-up on selective care unit, she is awake and alert, in no acute distress, patient is extremely hard of hearing which makes communicating with her very difficult. Her breathing is comfortable, she is currently on 2 L of oxygen with a pulse ox of 99 200%, lung sounds are clear. No rhonchi, no wheezing. Yesterday patient could not complete her EGD related to stricture, and procedure was aborted, colonoscopy revealed a cecal mass, s tatus post biopsies. The mass was suspicious for neoplasm. CT of abdomen and pelvis has been completed showing soft tissue at the level of the cecum, and nonspecific pulmonary nodularity, with 8 mm nodular density in the region of the lingula as well as the 1.5 cm nodular density in the region of the right middle lobe which could be postinflammatory in nature. Dedicated computed tomography scan of the chest was advised. On 04/03/2020 patient seen in follow[facility]up on [facility], she is sitting up in the chair, in no acute distress, she is currently on 2 L of oxygen pulse ox of 99%, hemodynamically stable, she is afebrile, her abdomen is soft, although somewhat distended. 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 His labs have been reviewed, with blood cell count is 9.2, hemoglobin is 9.7. Patient is status post transfusion with 2 units of packed red blood cells this admission. Denies any chest pain, she does admit to being somewhat short of breath, lung sounds reveal faint wheezes in the upper lobes. He is on breathing treatments, Symbicort, she is on maintenance dose of oral Lasix. Patient has not had any new chest x-rays since admission On 04/04/2020 patient seen in follow-up on selective care unit, she status post right colectomy, this is postoperative day 1. Patient is complaining of a lot of abdominal incisional pain. She is on epidural infusion with bupivacaine and Dilaudid currently running at 5 ML per hour. IV D5 half-normal saline with 20 of potassium at 125 ML per hour. Abdomen is soft, she denies any nausea or vomiting. She denies having much of an appetite. She refused her morning tray. Bowel sounds are active 4, but she has not passed any bowel movement or passed gas, mid abdominal incision is clean dry and intact, covered with surgical dressing with minimal amount of sanguinous drainage which is old. Today's labs have been reviewed, showing white blood cell count of 11.4, hemoglobin is 9.2, serum sodium is 135, the rest of electrolytes were within normal limits, BUN is 24 creatinine is 0.91. Patient had some mild confusion last night, she is answering questions appropriately, however patient is very hard of hearing, she is answering basic questions appropriately, does not seem to be confused this morning. Vital signs are stable. She is on 2 L of oxygen a pulse ox of 99%. Breathing is comfortable, low-grade fever this morning, with a temp of 99.3, and was afebrile. On today's evaluation of 04/05/2020, the patient is being seen in intensive care unit. Note that the patient got chest with the ICU as the patient went into acute respiratory failure due to an acute pulmonary edema. She is known to have severe mitral regurgitation with a preserved LV function is some increased echocardiogram.. Note that she came in to the ICU and she was quite hypoxic and tachypneic and unresponsive. We had to intubated and placed on a mechanical ventilator. Accordingly, the patient was vented and this morning she is calm and comfortable on propofol running at 50 g per KG per minute. IV fluids at KVO. She is producing adequate amount of urine output. Overnight she was given a dose of Lasix and she is achieving a negative fluid balance. I will continue the Lasix at a dose of 20 mg IV push every 12 hours. Chest x-ray still showing pulmonary edema. His morning, she is an assist-control mode of ventilation at the rate of 20 with tidal volume of 400 and FiO2 of 40% with a PEEP of 5. The patient's blood gases showed a pH of 7.53 with a pCO2 of 39 and pO2 of 98. The patient has a white cell count of 11.1 with a hemoglobin of 8.5. She is currently nothing by mouth. Abdomen is nondistended. Surgical wound site over the mid abdomen is dry clean and intact. No direct tenderness. No rebound tenderness no guarding. There are some hypoactive bowel sounds. Renal function stable with a creatinine of 1.1. This electrodes are all within normal limits. LFTs are also within normal limits. On 04/06/2020, the patient remains intubated on a mechanical ventilator. She is arousable with stimulation despite being on propofol. The patient is on propofol at 40 mg per KG per minute. She is also receiving IV Lasix 20 mg every 12 hours pH she remains in a negative fluid balance. Chest x-ray showing small bilateral pleural effusion and increased pulmonary vascular markings consistent with CHF. Noted the patient has severe aortic stenosis along with a component of mitral regurgitation. This morning, she is an assist-control mode at the rate of 12 with a tidal volume of 400 and FiO2 of 40% with a PEEP of 5. The blood gases from this morning showed a pH of 7.47 with a pCO2 of 40 and pO2 115. The white cell count is at 11 with a hemoglobin of 8.7. I was in the process of getting this patient a sedation holiday. Nevertheless, the patient went into atrial fibrillation with rapid ventricular response and the patient was started on a amiodarone drip for rate control. Based on this, I aborted on the further weaning that I was planning earlier. The plan for now is to control the heart rate for now. We also get a clearance from surgery regarding her feeds and if not extubated today we'll may started on some tube feeds for enteral feeding and nutritional support. The patient has adequate urine output. The patient and without active stable. A triple lumen catheter was established yesterday. No other significant events overnight. She continues to diabetes adequately and the patient is being seen by cardiology on a regular basis. On 04/07/2020, the patient remains intubated on a mechanical ventilator. The weaning process yesterday got interrupted as the patient developed atrial fibrillation with rapid ventricular response. The patient was given amiodarone and subsequent she was converted back into a normal sinus rhythm. Currently the patient amiodarone. Patient is on propofol which is currently running at 40 mg per KG per minute. IV fluids at 50 mL an hour of normal saline. The patient on Lasix 20 mg every 12 hours and the patient is a negative fluid balance of 700 mL. Bowel sounds are hypoactive still. The incision over the mid abdomen is dry clean and intact. She is currently in normal sinus rhythm. Despite her being on sedation with propofol, the patient is easily arousable. I'm in the process of getting the patient sedation holiday in anticipation for extubation today. I reviewed the chest x-ray from todayAnd the patient has bilateral pleural effusion and interstitial edema. ET tube is around 1 cm above the meggan.. Based on all this, the patient was taken off the sedation. The patient was given a sedation holiday. Weaning parameters were checked. Subsequently the patient was placed on a pressure support of 5 and a PEEP of 5 and a blood gas in 30 minutes showed a pH of 7.38 with a pCO2 of 45 and a pO2 of 131. At that point, decide to extubate the patient. Objective - Vital Signs Vital signs: Vital Signs Temp 97.9 F 04/07/20 08:00 Pulse 76 04/07/20 11:39 Resp 14 04/07/20 08:00 BP 136/48 04/07/20 08:00 Pulse Ox 100 04/07/20 08:00 Intake & Output 04/06/20 04/07/20 04/07/20 18:59 06:59 18:59 Intake Total 1243.832 911.264 271.697 Output Total 755 637 60 Balance 488.832 274.264 211.697 Weight 50.4 kg 51.1 kg 51.1 kg Intake: IV 236 36 6 Dextrose 5%-0.9% NaCl 1, 200 000 ml @ 10 mls/hr IV . Q24H [facility] Rx#:[id number] Normal Saline Pressure 36 36 6 Bag Intake, IV Titration 947.832 875.264 265.697 Amount Amiodarone 360 mg In 166.62 209.995 Dextrose 5% in Water 200 ml @ 1 MG/MIN 33.333 mls/ hr IV .Q6H [facility] Rx#: [id number] Dextrose 5% in Water 100 100 ml @ 618 mls/hr IV .Q10M [facility] with Amiodarone 150 mg Rx#:[id number] Dextrose 5%-0.9% NaCl 1, 400 600 150 000 ml @ 50 mls/hr IV . Q20H [facility] Rx#:[id number] Norepinephrine 8 mg In 111.951 Sodium Chloride 0.9% 250 ml @ 0.05 MCG/KG/MIN 4.77 mls/hr IV .Q24H [facility] Rx#: [id number] Propofol 1,000 mg In 169.261 65.269 115.697 Empty Bag 1 bag @ Titrate IV .Q0M [facility] Rx#: [id number] Other 60 Output: Gastric Drainage 200 300 Urine 555 337 60 Other: Voiding Method Indwelling Catheter Indwelling Catheter Indwelling Catheter ABP, PAP, CO, CI - Last Documented Arterial Blood Pressure 131/40 - Exam Elderly female patient currently sedated on propofol, comfortable likely distress. Patient is arousable. She is sent as a mechanical ventilator. The patient was given a sedation holiday and subsequently the patient was extubated. Head exam was generally normal. There was no scleral icterus or corneal arcus. Mucous membranes were moist. Neck is supple and there is a positive JVDs bilaterally. There is no goiter or neck masses. Orogastric and orotracheal tube are both in place. Lungs sounds are diminished and there is some crackles in the mid and lower lung his bilaterally. Heart sounds are regular this systolic ejection murmur grade 4/6 radiating to the neck heard throughout the precordium mainly in the apex and along the left lateral sternal border. Abdomen is shows no significant distention. There is a incisional mid abdomen which is dry clean and intact. No direct tenderness. No rebound tenderness. No guarding. Hypoactive bowel sounds. No ascites. Examination of the extremities revealed easily palpable radial, femoral and pedal pulses. There was no cyanosis, clubbing or edema. Examination of the skin revealed no evidence of significant rashes, suspicious appearing nevi or other concerning lesions. Neurologically the patient is sedated. She withdraws to painful stimulation in all 4 extremities. - Labs CBC & Chem 7: 04/07/20 05:05 04/07/20 05:05 Labs: Abnormal Lab Results - Last 24 Hours (Table) 04/06/20 04/07/20 04/07/20 Range/Units 17:11 00:12 05:04 RBC (3.80-5.40) m/uL Hgb (11.4-16.0) gm/dL Hct (34.0-46.0) % MCH (25.0-35.0) pg MCHC (31.0-37.0) g/dL RDW (11.5-15.5) % Neutrophils # (1.3-7.7) k/uL Lymphocytes # (1.0-4.8) k/uL ABG pH 7.33 L (7.35-7.45) ABG pCO2 49 H (35-45) mmHg ABG pO2 125 H (83-108) mmHg ABG HCO3 26 H (21-25) mmol/L ABG Total CO2 28 H (19-24) mmol/L ABG O2 Saturation 98.8 H (94-97) % Chloride (98-107) mmol/L BUN (7-17) mg/dL Creatinine (0.52-1.04) mg/dL Glucose (74-99) mg/dL POC Glucose (mg/dL) 111 H 126 H (75-99) mg/dL Calcium (8.4-10.2) mg/dL 04/07/20 04/07/20 04/07/20 Range/Units 05:05 05:05 05:14 RBC 3.40 L (3.80-5.40) m/uL Hgb 8.3 L (11.4-16.0) gm/dL Hct 27.3 L (34.0-46.0) % MCH 24.3 L (25.0-35.0) pg MCHC 30.2 L (31.0-37.0) g/dL RDW 22.4 H (11.5-15.5) % Neutrophils # 7.9 H (1.3-7.7) k/uL Lymphocytes # 0.8 L (1.0-4.8) k/uL ABG pH (7.35-7.45) ABG pCO2 (35-45) mmHg ABG pO2 (83-108) mmHg ABG HCO3 (21-25) mmol/L ABG Total CO2 (19-24) mmol/L ABG O2 Saturation (94-97) % Chloride 108 H (98-107) mmol/L BUN 27 H (7-17) mg/dL Creatinine 1.32 H (0.52-1.04) mg/dL Glucose 127 H (74-99) mg/dL POC Glucose (mg/dL) 137 H (75-99) mg/dL Calcium 7.3 L (8.4-10.2) mg/dL 04/07/20 04/07/20 Range/Units 11:08 11:37 RBC (3.80-5.40) m/uL Hgb (11.4-16.0) gm/dL Hct (34.0-46.0) % MCH (25.0-35.0) pg MCHC (31.0-37.0) g/dL RDW (11.5-15.5) % Neutrophils # (1.3-7.7) k/uL Lymphocytes # (1.0-4.8) k/uL ABG pH (7.35-7.45) ABG pCO2 (35-45) mmHg ABG pO2 131 H (83-108) mmHg ABG HCO3 26 H (21-25) mmol/L ABG Total CO2 28 H (19-24) mmol/L ABG O2 Saturation 99.0 H (94-97) % Chloride (98-107) mmol/L BUN (7-17) mg/dL Creatinine (0.52-1.04) mg/dL Glucose (74-99) mg/dL POC Glucose (mg/dL) 117 H (75-99) mg/dL Calcium (8.4-10.2) mg/dL Microbiology - Last 24 Hours (Table) 04/04/20 20:45 Gram Stain - Final Sputum Sputum Culture - Final Assessment and Plan Plan: 1 acute hypoxic respiratory failure secondary to pulmonary edema, most likely secondary to underlying valvular heart disease and severe aortic stenosis. The patient's chest x-ray still showing bilateral pleural effusions and pulmonary edema. The patient was diuresed over the past 48 hours. The patient subsequently demonstrated adequate weaning parameters pH was given a spelled his breathing trial and she was extubated. 2 acute ventilator-dependent respiratory failure secondary to above, extubated for now 3 severe valvular heart disease with severe aortic stenosis, as the patient is known to have moderate severe mitral regurgitation, moderate tricuspid regurgitation, moderate degree of pulmonary hypertension with a PA pressure of 39, Levaquin. Ejection fraction is no order of 50-55%. The patient has trace aortic insufficiency. 4 cecal mass post colectomy and the patient is postop day # 4 and the patient has hypoactive bowel sounds 5 history of esophageal stricture 6 coronary artery disease with previous coronary stent insertion 7 diabetes mellitus 8 hypertension with hypertensive heart disease with moderate concentric LVH. 9 hyperlipidemia 10 history of TIA 11 history of chronic anemia microcytic hypochromic with a component of iron deficiency 12 nonspecific pulmonary nodularity noted on the CT of the abdomen and pelvis, with 8 mm nodular density in the lingula and 1.5 cm nodular density in the region of the right middle lobe 13 new onset atrial fibrillation with rapid ventricular response and currently she is on a amiodarone drip. Plan Wean the patient's FiO2 to maintain a saturation above 90%, and the patient has been extubated to 5 L of oxygen by nasal cannula. Keep the IV fluids at a lower rate of 50 mL an hour Continue with IV Lasix 20 mg every 12 hours Amiodarone management per cardiology, and the patient was taken off amiodarone for now Condition is still critical. The patient will be kept in ICU for observation post extubation , is currently on 5 L of oxygen by nasal cannula. Critically care evaluation that was done and more than 30 minutes. Time with Patient: Greater than 30
--- NOTE | 2020-04-07 15:30 | P.PN ---
<Riddhi Quach - Last Filed: 04/07/20 19:18> Subjective Progress Note Date: 04/07/20 Principal diagnosis: Anemia and now cecal mass Remains on mechanical ventilator. She developed Atrial fib and RVR yesterday therefore could not wean. Review of todays chest xray with pleural effusions and edema. Pulm and ICU plan to attempt extubation again today Objective - Vital Signs Vital signs: Vital Signs Temp 97.9 F 04/07/20 08:00 Pulse 76 04/07/20 11:39 Resp 14 04/07/20 08:00 BP 136/48 04/07/20 08:00 Pulse Ox 100 04/07/20 08:00 Intake & Output 04/06/20 04/07/20 04/07/20 18:59 06:59 18:59 Intake Total 1243.832 911.264 271.697 Output Total 755 637 60 Balance 488.832 274.264 211.697 Weight 50.4 kg 51.1 kg 51.1 kg Intake: IV 236 36 6 Dextrose 5%-0.9% NaCl 1, 200 000 ml @ 10 mls/hr IV . Q24H [facility] Rx#:[id number] Normal Saline Pressure 36 36 6 Bag Intake, IV Titration 947.832 875.264 265.697 Amount Amiodarone 360 mg In 166.62 209.995 Dextrose 5% in Water 200 ml @ 1 MG/MIN 33.333 mls/ hr IV .Q6H [facility] Rx#: [id number] Dextrose 5% in Water 100 100 ml @ 618 mls/hr IV .Q10M [facility] with Amiodarone 150 mg Rx#:[id number] Dextrose 5%-0.9% NaCl 1, 400 600 150 000 ml @ 50 mls/hr IV . Q20H [facility] Rx#:[id number] Norepinephrine 8 mg In 111.951 Sodium Chloride 0.9% 250 ml @ 0.05 MCG/KG/MIN 4.77 mls/hr IV .Q24H [facility] Rx#: [id number] Propofol 1,000 mg In 169.261 65.269 115.697 Empty Bag 1 bag @ Titrate IV .Q0M [facility] Rx#: [id number] Other 60 Output: Gastric Drainage 200 300 Urine 555 337 60 Other: Voiding Method Indwelling Catheter Indwelling Catheter Indwelling Catheter ABP, PAP, CO, CI - Last Documented Arterial Blood Pressure 131/40 - Exam - General Intubated - Eyes PERRL - Neck no masses - Respiratory normal expansion - Cardiovascular Rhythm: Irregular irregular - Abdomen Abdomen: evidence of recent surgery Ext: BLE edema Psch: BASSEM - Labs CBC & Chem 7: 04/07/20 05:05 04/07/20 17:00 Labs: Abnormal Lab Results - Last 24 Hours (Table) 04/06/20 04/07/20 04/07/20 Range/Units 17:11 00:12 05:04 RBC (3.80-5.40) m/uL Hgb (11.4-16.0) gm/dL Hct (34.0-46.0) % MCH (25.0-35.0) pg MCHC (31.0-37.0) g/dL RDW (11.5-15.5) % Neutrophils # (1.3-7.7) k/uL Lymphocytes # (1.0-4.8) k/uL ABG pH 7.33 L (7.35-7.45) ABG pCO2 49 H (35-45) mmHg ABG pO2 125 H (83-108) mmHg ABG HCO3 26 H (21-25) mmol/L ABG Total CO2 28 H (19-24) mmol/L ABG O2 Saturation 98.8 H (94-97) % Chloride (98-107) mmol/L BUN (7-17) mg/dL Creatinine (0.52-1.04) mg/dL Glucose (74-99) mg/dL POC Glucose (mg/dL) 111 H 126 H (75-99) mg/dL Calcium (8.4-10.2) mg/dL 04/07/20 04/07/20 04/07/20 Range/Units 05:05 05:05 05:14 RBC 3.40 L (3.80-5.40) m/uL Hgb 8.3 L (11.4-16.0) gm/dL Hct 27.3 L (34.0-46.0) % MCH 24.3 L (25.0-35.0) pg MCHC 30.2 L (31.0-37.0) g/dL RDW 22.4 H (11.5-15.5) % Neutrophils # 7.9 H (1.3-7.7) k/uL Lymphocytes # 0.8 L (1.0-4.8) k/uL ABG pH (7.35-7.45) ABG pCO2 (35-45) mmHg ABG pO2 (83-108) mmHg ABG HCO3 (21-25) mmol/L ABG Total CO2 (19-24) mmol/L ABG O2 Saturation (94-97) % Chloride 108 H (98-107) mmol/L BUN 27 H (7-17) mg/dL Creatinine 1.32 H (0.52-1.04) mg/dL Glucose 127 H (74-99) mg/dL POC Glucose (mg/dL) 137 H (75-99) mg/dL Calcium 7.3 L (8.4-10.2) mg/dL 04/07/20 04/07/20 Range/Units 11:08 11:37 RBC (3.80-5.40) m/uL Hgb (11.4-16.0) gm/dL Hct (34.0-46.0) % MCH (25.0-35.0) pg MCHC (31.0-37.0) g/dL RDW (11.5-15.5) % Neutrophils # (1.3-7.7) k/uL Lymphocytes # (1.0-4.8) k/uL ABG pH (7.35-7.45) ABG pCO2 (35-45) mmHg ABG pO2 131 H (83-108) mmHg ABG HCO3 26 H (21-25) mmol/L ABG Total CO2 28 H (19-24) mmol/L ABG O2 Saturation 99.0 H (94-97) % Chloride (98-107) mmol/L BUN (7-17) mg/dL Creatinine (0.52-1.04) mg/dL Glucose (74-99) mg/dL POC Glucose (mg/dL) 117 H (75-99) mg/dL Calcium (8.4-10.2) mg/dL Microbiology - Last 24 Hours (Table) 04/04/20 20:45 Gram Stain - Final Sputum Sputum Culture - Final Assessment and Plan Plan: Assessment and Plan Microcytic hypochromic anemia - Multifactorial Iron deficiency with component of CKD and now GI Mass responsible for Blood loss component - Parental Iron to continue - Daily CBC - 4 week outpatient hematology follow-up - GI Work-up was performed and 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 - It was confirmed that the [facility] is able to administer Aranesp. - Orders have been placed in the discharge paperwork for same. -surgical resection 04/03 of newly found mass Acute Hypoxic Respiratory Failure - Requiring Ventilation and ICU care - Will await recovery from current situation - Hemoglobin stable 8.3 - Will plan to see her in follow-up in 3-4 weeks for recommendations on adjuvent treatment Physician Attest: I have completed the full history and physical and agree with above dictation, dictated as a scribe <Beny Tsai - Last Filed: 04/09/20 01:29> Objective - Vital Signs Vital signs: Vital Signs Temp 97.4 F L 04/09/20 00:00 Pulse 78 04/09/20 01:00 Resp 14 04/09/20 01:00 BP 173/80 04/09/20 01:00 Pulse Ox 97 04/09/20 01:00 Intake & Output 04/08/20 04/08/20 04/09/20 06:59 18:59 06:59 Intake Total 276 748 637 Output Total 1670 1620 875 Balance -1394 -872 -238 Weight 51.528 kg 51.528 kg Intake: IV 256 748 637 Dextrose 5%-0.9% NaCl 1, 220 240 140 000 ml @ 20 mls/hr IV . Q24H [facility] Rx#:[id number] Fat Emulsion 20% 250 ml 84 147 In Empty Bag 1 bag @ 21 mls/hr IV Q24H [facility] Rx#: [id number] Mvi, Adult No.4 with Vit 200 350 K 10 ml Trace (Conc-1Ml/ Dose) 1 ml In Amino Acid 4.25%-D10w+Lytes*E* 1,000 ml @ 50 mls/hr IV . [id number] [facility] Rx#:[id number] Normal Saline Pressure 36 24 Bag Potassium Chloride 10 meq 200 In Water For Injection 1 100ml.bag @ 100 mls/hr IVPB Q1H [facility] Rx#: [id number] Intake, IV Titration 20 Amount Dextrose 5%-0.9% NaCl 1, 20 000 ml @ 20 mls/hr IV . Q24H [facility] Rx#:[id number] Output: Urine 1670 1620 875 Other: Voiding Method Indwelling Catheter Indwelling Catheter Indwelling Catheter ABP, PAP, CO, CI - Last Documented Arterial Blood Pressure 137/45 - Labs CBC & Chem 7: 04/08/20 04:15 04/08/20 11:10 Labs: Abnormal Lab Results - Last 24 Hours (Table) 04/08/20 04/08/20 04/08/20 Range/Units 04:15 04:15 05:13 RBC 3.50 L (3.80-5.40) m/uL Hgb 8.5 L (11.4-16.0) gm/dL Hct 28.5 L (34.0-46.0) % MCH 24.4 L (25.0-35.0) pg MCHC 29.9 L (31.0-37.0) g/dL RDW 21.7 H (11.5-15.5) % Neutrophils # 7.9 H (1.3-7.7) k/uL Lymphocytes # 0.8 L (1.0-4.8) k/uL BUN 29 H (7-17) mg/dL Creatinine 1.39 H (0.52-1.04) mg/dL Glucose 111 H (74-99) mg/dL POC Glucose (mg/dL) 108 H (75-99) mg/dL Calcium 7.8 L (8.4-10.2) mg/dL 04/08/20 04/08/20 04/08/20 Range/Units 11:16 16:57 23:32 RBC (3.80-5.40) m/uL Hgb (11.4-16.0) gm/dL Hct (34.0-46.0) % MCH (25.0-35.0) pg MCHC (31.0-37.0) g/dL RDW (11.5-15.5) % Neutrophils # (1.3-7.7) k/uL Lymphocytes # (1.0-4.8) k/uL BUN (7-17) mg/dL Creatinine (0.52-1.04) mg/dL Glucose (74-99) mg/dL POC Glucose (mg/dL) 145 H 144 H 193 H (75-99) mg/dL Calcium (8.4-10.2) mg/dL Assessment and Plan Plan: Path report was subsequently finalized on 04/07. This was d/w pt and her family. 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 There is no indication for adjuvant systemic therapy, or regular oncology follow up/serial imaging for this stage of disease. She was thus advised to continue f.u with surgery post discharge, with surveillance colonoscopies as recommended by them
[2020-04-07] MEDS: LABETALOL 5 MG/ML VIAL MDV IVP PRN (16:02)
[2020-04-07] MEDS ORDERED: FUROSEMIDE 10 MG/ML 4 ML VIAL IV STA (16:28)
[2020-04-07 17:29] LABS: Calcium 7.8 mg/dL (8.4-10.2); Potassium 4.6 mmol/L (3.5-5.1)
[2020-04-07 17:54] LABS: Glucose,Whole Blood 211 mg/dL (75-99)
[2020-04-07] MEDS: NOREPINEPHRINE 8 MG in SODIUM CHLORIDE 0.9% 250 ML IV SCH (21:45)
[2020-04-07 23:20] LABS: Glucose,Whole Blood 116 mg/dL (75-99)
[2020-04-08] MEDS: HYDROmorphone 1 MG/ML 1 ML SYRINGE IVP PRN ×2 (02:03→12:35)
[2020-04-08] MEDS: INSULIN ASPART (NovoLOG) 100 UNIT/ML VIAL SQ SCH ×4 (05:14→23:35)
[2020-04-08 05:15] LABS: Glucose,Whole Blood 108 mg/dL (75-99)
[2020-04-08 05:25] LABS: Anisocytosis Moderate; Basophils % (A) 0 %; Eosinophils # (A) 0.2 k/uL (0-0.7); Eosinophils % (A) 2 %; HCT 28.5 % (34.0-46.0); HGB 8.5 gm/dL (11.4-16.0); Hypochromasia Marked; Lymphocytes # (A) 0.8 k/uL (1.0-4.8); Lymphocytes % (A) 8 %; MCH 24.4 pg (25.0-35.0); MCHC 29.9 g/dL (31.0-37.0); MCV 81.6 fL (80.0-100.0); Mean Platelet Volume 9.2; Microcytosis Slight; Monocytes # (A) 0.7 k/uL (0-1.0); Monocytes % (A) 7 %; Neutrophils # (A) 7.9 k/uL (1.3-7.7); Neutrophils % (A) 81 %; Platelet Count 273 k/uL (150-450); Poikilocytosis Slight; RDW 21.7 % (11.5-15.5); WBC 9.7 k/uL (3.8-10.6)
[2020-04-08 05:36] LABS: Calcium 7.8 mg/dL (8.4-10.2); Potassium 3.7 mmol/L (3.5-5.1)
[2020-04-08] MEDS ORDERED: Potassium Replacement Protocol 1 EACH MISC MISCELLANE PRN (05:38)
[2020-04-08] MEDS: POTASSIUM CHLORIDE 10 MEQ in WATER FOR INJECTION 1 100ML.BAG IVPB SCH ×2 (05:45→06:33)
--- NOTE | 2020-04-08 06:41 | XR ---
EXAMINATION TYPE: XR chest 1V portable DATE OF EXAM: 04/08/2020 HISTORY: recent extubation. REFERENCE: Previous study dated 04/07/2020. FINDINGS: The patient's ET tube and NG tube been removed. The heart is enlarged. There is vascular congestion and pulmonary edema. There are small, bilateral e ffusions. The heart is enlarged. IMPRESSION: WORSENING CHANGES OF PULMONARY EDEMA.
[2020-04-08] MEDS: IPRATROPIUM 0.5 MG/2.5 ML NEBU INHALATION SCH ×4 (08:43→19:36)
[2020-04-08] MEDS: PANTOPRAZOLE 40 MG/10 ML VIAL IVP SCH (09:00)
[2020-04-08] MEDS: HEPARIN SODIUM,PORCINE 5,000 UNIT/ML 1 ML VIAL SQ SCH ×3 (09:00→23:34)
[2020-04-08] MEDS: FUROSEMIDE 10 MG/ML 2 ML VIAL IV SCH ×3 (09:00→23:35)
[2020-04-08] MEDS: METOPROLOL TARTRATE 50 MG TAB PO SCH ×2 (09:46→19:27)
[2020-04-08] MEDS: LABETALOL 5 MG/ML VIAL MDV IVP PRN ×2 (09:49→21:56)
--- NOTE | 2020-04-08 10:48 | P.PN ---
Progress Note - Text Progress Note Date: 04/08/20 The patient is being a malignancy by physical therapy. She was extubated yesterday. She failed her swallow study and is on TPN. On exam vital signs are stable. Abdomen is soft. Incision is clean dry and intact Status post right colectomy patient's pulmonary function is improved. She will start TPN. Hopefully her swallow function will improve.
--- NOTE | 2020-04-08 11:14 | P.PN ---
Subjective Progress Note Date: 04/08/20 Sonal Ulloa is an 89-year-old female patient who presented to the emergency department today for evaluation of low hemoglobin. Patient is currently a resident at [facility] on the [facility]. She had labs performed yesterday and hemoglobin was 6.1. she was sent to [facility] emergency room for evaluation , she received 1 unit of red blood cell transfusion in the emergency room and she started developing shortness of breath repeat hemoglobin was 9.1 patient has a known history of iron deficiency anemia . She was admitted to medical floor gastroenterology consultation and hematology consultation were requested for evaluation of chronic anemia . 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 Patient is otherwise stable there is no fever or chills no headache or dizziness no chest pain no shortness of breath no cough no nausea or vomiting no abdominal pain no diarrhea and no urinary symptoms. On 03/31/2020 patient was seen and examined on the medical floor, there is no fever or chills no headache or dizziness no chest pain no shortness of breath no cough no nausea or vomiting no dominant pain nor diarrhea no burning with urination no frequency or urgency no hematuria, hemoglobin today is 7.6 white blood count 8.0 potassium 3. . On 04/01/2020 patient was seen and examined on the medical floor she is alert and oriented 3 in no apparent distress she is very hard of hearing, she denies any pain or discomfort at this time there is no chest pain or shortness of breath no cough no nausea or vomiting no abdominal pain no diarrhea no blood in the stools no burning with urination no frequency or urgency and no hematuria On 04/02/2020 patient was seen and examined on the medical floor she is feeling well there is no fever or chills no headache or dizziness no chest pain no shortness of breath no cough no nausea or vomiting no abdominal pain no diarrhea no burning with urination no frequency or urgency no hematuria she is scheduled for surgery tomorrow 04/03/2020 patient was seen and examined on the medical floor she is alert and oriented 3 in no apparent distress there is no fever or chills no headache or dizziness no chest pain no shortness of breath no cough no nausea or vomiting no abdominal pain no diarrhea no burning with urination no frequency or urgency no hematuria patient is going for surgery today. 04/04/2020 patient was seen and examined on the medical floor she is alert, con fused, in no apparent distress there is no fever or chills no headache or dizziness no chest pain no shortness of breath no cough no nausea or vomiting no abdominal pain no diarrhea no burning with urination no frequency or urgency no hematuria patient is post op day #1 On 04/05/2020 Patient was seen and examined in the ICU, events from last night noted, patient developed worsening shortness of breath and tachypnea, CODE STEFANIA was called and patient was transferred to ICU she was intubated and started on mechanical ventilation, at this time patient is intubated sedated maintained on mechanical ventilation, maintained on levophed for pressure support On 04/06/2020, the patient is intubated and maintained on a mechanical ventilator. The blood gases from this morning showed a pH of 7.47 with a pCO2 of 40 and pO2 115. white cell count is at 11 with a hemoglobin of 8.7. the patient went into atrial fibrillation with rapid ventricular response and the patient was started on a amiodarone drip for rate control. Cardiology and critical care following. On 04/07/2020 patient was seen and examined in the ICU she is intubated sedated maintained on mechanical ventilation, ABGs this morning pH 7.33 pCO2 49 pO2 125 white blood count 10.1 hemoglobin 8.3 platelet count 244 BUN 27 creatinine 1.32 plan for today is to try to wean her off ventilation and extubate her if she is doing well, yesterday she had an episode of atrial fibrillation with rapid ventricular response she was seen by cardiology and she had amiodarone drip, patient is off amiodarone drip at this time. I had a prolonged discussion over the phone with patient's daughter Anai, all questions were answered. On 04/08/2020 patient was seen and examined in the ICU she is extubated she is maintained on oxygen via nasal cannula, and tolerating well, she is sitting up in a chair, she is very hard of hearing and and able to answer questions, nurse stated that she failed swallow evaluation, she will be maintained on TPN until Friday when speech therapy is available, there is no fever or chills no headache or dizziness no chest pain no shortness of breath no cough no nausea or vomiting no abdominal pain no diarrhea. Objective - Vital Signs Vital signs: Vital Signs Temp 97.5 F L 04/08/20 04:00 Pulse 89 04/08/20 07:00 Resp 20 04/08/20 07:00 BP 135/67 04/08/20 07:00 Pulse Ox 97 04/08/20 07:00 Intake & Output 04/07/20 04/08/20 04/08/20 18:59 06:59 18:59 Intake Total 711.697 276 223 Output Total 1117 1670 95 Balance -405.303 -1394 128 Weight 51.1 kg 51.528 kg Intake: IV 36 256 223 Dextrose 5%-0.9% NaCl 1, 220 20 000 ml @ 20 mls/hr IV . Q24H [facility] Rx#:[id number] Normal Saline Pressure 36 36 3 Bag Potassium Chloride 10 meq 200 In Water For Injection 1 100ml.bag @ 100 mls/hr IVPB Q1H [facility] Rx#: [id number] Intake, IV Titration 615.697 20 Amount Dextrose 5%-0.9% NaCl 1, 500 20 000 ml @ 20 mls/hr IV . Q24H [facility] Rx#:[id number] Propofol 1,000 mg In 115.697 Empty Bag 1 bag @ Titrate IV .Q0M [facility] Rx#: [id number] Other 60 Output: Urine 1117 1670 95 Other: Voiding Method Indwelling Catheter Indwelling Catheter ABP, PAP, CO, CI - Last Documented Arterial Blood Pressure 153/50 - Exam In general patient alert responsive in no apparent distress HEENT head normocephalic and atraumatic Neck is supple no JVD no goiter no lymphadenopathy Chest exam reveals a few scattered crackles no wheezing Cardiac exam reveals regular heart sounds no gallops no murmurs Abdomen is soft nontender no organomegaly with normal bowel sounds Extremity exam reveals no edema no cyanosis or clubbing Neurological examination reveals no gross focal deficit - Labs CBC & Chem 7: 04/08/20 04:15 04/08/20 04:15 Labs: Abnormal Lab Results - Last 24 Hours (Table) 04/07/20 04/07/20 04/07/20 Range/Units 11:08 11:37 17:00 RBC (3.80-5.40) m/uL Hgb (11.4-16.0) gm/dL Hct (34.0-46.0) % MCH (25.0-35.0) pg MCHC (31.0-37.0) g/dL RDW (11.5-15.5) % Neutrophils # (1.3-7.7) k/uL Lymphocytes # (1.0-4.8) k/uL ABG pO2 131 H (83-108) mmHg ABG HCO3 26 H (21-25) mmol/L ABG Total CO2 28 H (19-24) mmol/L ABG O2 Saturation 99.0 H (94-97) % BUN 28 H (7-17) mg/dL Creatinine 1.31 H (0.52-1.04) mg/dL Glucose 192 H (74-99) mg/dL POC Glucose (mg/dL) 117 H (75-99) mg/dL Calcium 7.8 L (8.4-10.2) mg/dL 04/07/20 04/07/20 04/08/20 Range/Units 17:53 23:18 04:15 RBC 3.50 L (3.80-5.40) m/uL Hgb 8.5 L (11.4-16.0) gm/dL Hct 28.5 L (34.0-46.0) % MCH 24.4 L (25.0-35.0) pg MCHC 29.9 L (31.0-37.0) g/dL RDW 21.7 H (11.5-15.5) % Neutrophils # 7.9 H (1.3-7.7) k/uL Lymphocytes # 0.8 L (1.0-4.8) k/uL ABG pO2 (83-108) mmHg ABG HCO3 (21-25) mmol/L ABG Total CO2 (19-24) mmol/L ABG O2 Saturation (94-97) % BUN (7-17) mg/dL Creatinine (0.52-1.04) mg/dL Glucose (74-99) mg/dL POC Glucose (mg/dL) 211 H 116 H (75-99) mg/dL Calcium (8.4-10.2) mg/dL 04/08/20 04/08/20 Range/Units 04:15 05:13 RBC (3.80-5.40) m/uL Hgb (11.4-16.0) gm/dL Hct (34.0-46.0) % MCH (25.0-35.0) pg MCHC (31.0-37.0) g/dL RDW (11.5-15.5) % Neutrophils # (1.3-7.7) k/uL Lymphocytes # (1.0-4.8) k/uL ABG pO2 (83-108) mmHg ABG HCO3 (21-25) mmol/L ABG Total CO2 (19-24) mmol/L ABG O2 Saturation (94-97) % BUN 29 H (7-17) mg/dL Creatinine 1.39 H (0.52-1.04) mg/dL Glucose 111 H (74-99) mg/dL POC Glucose (mg/dL) 108 H (75-99) mg/dL Calcium 7.8 L (8.4-10.2) mg/dL Microbiology - Last 24 Hours (Table) 04/04/20 20:45 Gram Stain - Final Sputum Sputum Culture - Final Assessment and Plan Plan: 1. Acute respiratory failure, likely related to pulmonary edema requiring transfer to ICU, intubation and mechanical ventilation 2. CKD stage 3 Will consult nephrology for possible outpatient follow-up for Procrit injections 3. fluid overload with shortness of breath after 1 unit red blood cell transfusion 4. Underlying history of hypertension 5. Underlying history of hyperlipidemia 6. Underlying history of COPD 7. Underlying history of insulin-dependent diabetes mellitus 8. surgery partial colectomy for colon mass, postoperative day #3 9. Atrial fibrillation with rapid ventricular response patient was started on amiodarone drip
[2020-04-08 11:17] LABS: Glucose,Whole Blood 145 mg/dL (75-99)
[2020-04-08 13:15] LABS: Phosphorus 3.7 mg/dL (2.5-4.5)
--- NOTE | 2020-04-08 14:37 | P.PN ---
Subjective Progress Note Date: 04/08/20 The patient is seen today 03/30/2020 in follow-up on the selective care unit. She is currently resting comfortably in bed. Awake and alert in no acute distress. Denies any worsening shortness of breath cough or congestion. No noted bleeding. White count 8.6. Hemoglobin 7.9. Sodium 136. Potassium 3.8. Creatinine 1.46. She is status post 1 unit of packed red blood cells this admission. Plan is for EGD/colonoscopy today. On 03/31/2020 patient seen in follow-up on selective care unit, she is awake and alert, in no acute distress, patient is extremely hard of hearing which makes communicating with her very difficult. Her breathing is comfortable, she is currently on 2 L of oxygen with a pulse ox of 99 200%, lung sounds are clear. No rhonchi, no wheezing. Yesterday patient could not complete her EGD related to stricture, and procedure was aborted, colonoscopy revealed a cecal mass, s tatus post biopsies. The mass was suspicious for neoplasm. CT of abdomen and pelvis has been completed showing soft tissue at the level of the cecum, and nonspecific pulmonary nodularity, with 8 mm nodular density in the region of the lingula as well as the 1.5 cm nodular density in the region of the right middle lobe which could be postinflammatory in nature. Dedicated computed tomography scan of the chest was advised. On 04/03/2020 patient seen in follow-up on [facility] care unit, she is sitting up in the chair, in no acute distress, she is currently on 2 L of oxygen pulse ox of 99%, hemodynamically stable, she is afebrile, her abdomen is soft, although somewhat distended. 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 His labs have been reviewed, with blood cell count is 9.2, hemoglobin is 9.7. Patient is status post transfusion with 2 units of packed red blood cells this admission. Denies any chest pain, she does admit to being somewhat short of breath, lung sounds reveal faint wheezes in the upper lobes. He is on breathing treatments, Symbicort, she is on maintenance dose of oral Lasix. Patient has not had any new chest x-rays since admission On 04/04/2020 patient seen in follow-up on selective care unit, she status post right colectomy, this is postoperative day 1. Patient is complaining of a lot of abdominal incisional pain. She is on epidural infusion with bupivacaine and Dilaudid currently running at 5 ML per hour. IV D5 half-normal saline with 20 of potassium at 125 ML per hour. Abdomen is soft, she denies any nausea or vomiting. She denies having much of an appetite. She refused her morning tray. Bowel sounds are active 4, but she has not passed any bowel movement or passed gas, mid abdominal incision is clean dry and intact, covered with surgical dressing with minimal amount of sanguinous drainage which is old. Today's labs have been reviewed, showing white blood cell count of 11.4, hemoglobin is 9.2, serum sodium is 135, the rest of electrolytes were within normal limits, BUN is 24 creatinine is 0.91. Patient had some mild confusion last night, she is answering questions appropriately, however patient is very hard of hearing, she is answering basic questions appropriately, does not seem to be confused this morning. Vital signs are stable. She is on 2 L of oxygen a pulse ox of 99%. Breathing is comfortable, low-grade fever this morning, with a temp of 99.3, and was afebrile. On today's evaluation of 04/05/2020, the patient is being seen in intensive care unit. Note that the patient got chest with the ICU as the patient went into acute respiratory failure due to an acute pulmonary edema. She is known to have severe mitral regurgitation with a preserved LV function is some increased echocardiogram.. Note that she came in to the ICU and she was quite hypoxic and tachypneic and unresponsive. We had to intubated and placed on a mechanical ventilator. Accordingly, the patient was vented and this morning she is calm and comfortable on propofol running at 50 g per KG per minute. IV fluids at KVO. She is producing adequate amount of urine output. Overnight she was given a dose of Lasix and she is achieving a negative fluid balance. I will continue the Lasix at a dose of 20 mg IV push every 12 hours. Chest x-ray still showing pulmonary edema. His morning, she is an assist-control mode of ventilation at the rate of 20 with tidal volume of 400 and FiO2 of 40% with a PEEP of 5. The patient's blood gases showed a pH of 7.53 with a pCO2 of 39 and pO2 of 98. The patient has a white cell count of 11.1 with a hemoglobin of 8.5. She is currently nothing by mouth. Abdomen is nondistended. Surgical wound site over the mid abdomen is dry clean and intact. No direct tenderness. No rebound tenderness no guarding. There are some hypoactive bowel sounds. Renal function stable with a creatinine of 1.1. This electrodes are all within normal limits. LFTs are also within normal limits. On 04/06/2020, the patient remains intubated on a mechanical ventilator. She is arousable with stimulation despite being on propofol. The patient is on propofol at 40 mg per KG per minute. She is also receiving IV Lasix 20 mg every 12 hours pH she remains in a negative fluid balance. Chest x-ray showing small bilateral pleural effusion and increased pulmonary vascular markings consistent with CHF. Noted the patient has severe aortic stenosis along with a component of mitral regurgitation. This morning, she is an assist-control mode at the rate of 12 with a tidal volume of 400 and FiO2 of 40% with a PEEP of 5. The blood gases from this morning showed a pH of 7.47 with a pCO2 of 40 and pO2 115. The white cell count is at 11 with a hemoglobin of 8.7. I was in the process of getting this patient a sedation holiday. Nevertheless, the patient went into atrial fibrillation with rapid ventricular response and the patient was started on a amiodarone drip for rate control. Based on this, I aborted on the further weaning that I was planning earlier. The plan for now is to control the heart rate for now. We also get a clearance from surgery regarding her feeds and if not extubated today we'll may started on some tube feeds for enteral feeding and nutritional support. The patient has adequate urine output. The patient and without active stable. A triple lumen catheter was established yesterday. No other significant events overnight. She continues to diabetes adequately and the patient is being seen by cardiology on a regular basis. On 04/07/2020, the patient remains intubated on a mechanical ventilator. The weaning process yesterday got interrupted as the patient developed atrial fibrillation with rapid ventricular response. The patient was given amiodarone and subsequent she was converted back into a normal sinus rhythm. Currently the patient amiodarone. Patient is on propofol which is currently running at 40 mg per KG per minute. IV fluids at 50 mL an hour of normal saline. The patient on Lasix 20 mg every 12 hours and the patient is a negative fluid balance of 700 mL. Bowel sounds are hypoactive still. The incision over the mid abdomen is dry clean and intact. She is currently in normal sinus rhythm. Despite her being on sedation with propofol, the patient is easily arousable. I'm in the process of getting the patient sedation holiday in anticipation for extubation today. I reviewed the chest x-ray from todayAnd the patient has bilateral pleural effusion and interstitial edema. ET tube is around 1 cm above the meggan.. Based on all this, the patient was taken off the sedation. The patient was given a sedation holiday. Weaning parameters were checked. Subsequently the patient was placed on a pressure support of 5 and a PEEP of 5 and a blood gas in 30 minutes showed a pH of 7.38 with a pCO2 of 45 and a pO2 of 131. At that point, decide to extubate the patient. On 04/08/2020, the patient is still extubated. She is looking well. Chest x- ray still showing CHF about the pleural effusions and edema. Nevertheless the patient is responding nicely to diuretics and the patient on Lasix 20 mg IV push every 8 hours. She remains in a negative fluid balance. No fever. No chills. No night sweats. Surgical wound site is dry clean and intact. Hypoactive bowel sounds and the patient had one stool that was quite liquidy and was minimal in amount. Meanwhile, the patient failed a swallow evaluation and I made recommend ations to start on TPN and a swallow evaluation AGAIN NEXT 24-48 HOURS TO CLEAR THIS PATIENT FOR ORAL FEEDS. The patient otherwise is hard of hearing is difficult to communicate with her. She is resting comfortably in bed. CODE STATUS is DNR/DNI. Family did not want reintubation should she go into respiratory failure. Her hemoglobin is 8.5. Creatinine is at 1.3 and stable. Sodium is at 40. Objective - Vital Signs Vital signs: Vital Signs Temp 98.2 F 04/08/20 12:00 Pulse 85 04/08/20 13:00 Resp 20 04/08/20 13:00 BP 143/93 04/08/20 12:00 Pulse Ox 97 04/08/20 13:00 Intake & Output 04/07/20 04/08/20 04/08/20 18:59 06:59 18:59 Intake Total 711.697 276 361 Output Total 1117 1670 870 Balance -405.303 -1394 -509 Weight 51.1 kg 51.528 kg 51.528 kg Intake: IV 36 256 361 Dextrose 5%-0.9% NaCl 1, 220 140 000 ml @ 20 mls/hr IV . Q24H [facility] Rx#:[id number] Normal Saline Pressure 36 36 21 Bag Potassium Chloride 10 meq 200 In Water For Injection 1 100ml.bag @ 100 mls/hr IVPB Q1H [facility] Rx#: [id number] Intake, IV Titration 615.697 20 Amount Dextrose 5%-0.9% NaCl 1, 500 20 000 ml @ 20 mls/hr IV . Q24H [facility] Rx#:[id number] Propofol 1,000 mg In 115.697 Empty Bag 1 bag @ Titrate IV .Q0M [facility] Rx#: [id number] Other 60 Output: Urine 1117 1670 870 Other: Voiding Method Indwelling Catheter Indwelling Catheter Indwelling Catheter ABP, PAP, CO, CI - Last Documented Arterial Blood Pressure 137/45 - Exam Elderly female patient currently on 3 L of oxygen by nasal cannula with a pulse of 99%. Head exam was generally normal. There was no scleral icterus or corneal arcus. Mucous membranes were moist. Neck is supple and there is a positive JVDs bilaterally. There is no goiter or neck masses. Lungs sounds are diminished and there is some crackles in the mid and lower lung his bilaterally. Heart sounds are regular this systolic ejection murmur grade 4/6 radiating to the neck heard throughout the precordium mainly in the apex and along the left lateral sternal border. Abdomen is shows no significant distention. There is a incisional mid abdomen which is dry clean and intact. No direct tenderness. No rebound tenderness. No guarding. Hypoactive bowel sounds. No ascites. Examination of the extremities revealed easily palpable radial, femoral and pedal pulses. There was no cyanosis, clubbing or edema. Examination of the skin revealed no evidence of significant rashes, suspicious appearing nevi or other concerning lesions. Neurologically the patient is awake and alert and there is no focal neur ological deficit. She withdraws to painful stimulation in all 4 extremities. - Labs CBC & Chem 7: 04/08/20 04:15 07/18/20 11:10 Labs: Abnormal Lab Results - Last 24 Hours (Table) 04/07/20 04/07/20 04/07/20 Range/Units 17:00 17:53 23:18 RBC (3.80-5.40) m/uL Hgb (11.4-16.0) gm/dL Hct (34.0-46.0) % MCH (25.0-35.0) pg MCHC (31.0-37.0) g/dL RDW (11.5-15.5) % Neutrophils # (1.3-7.7) k/uL Lymphocytes # (1.0-4.8) k/uL BUN 28 H (7-17) mg/dL Creatinine 1.31 H (0.52-1.04) mg/dL Glucose 192 H (74-99) mg/dL POC Glucose (mg/dL) 211 H 116 H (75-99) mg/dL Calcium 7.8 L (8.4-10.2) mg/dL 04/08/20 04/08/20 04/08/20 Range/Units 04:15 04:15 05:13 RBC 3.50 L (3.80-5.40) m/uL Hgb 8.5 L (11.4-16.0) gm/dL Hct 28.5 L (34.0-46.0) % MCH 24.4 L (25.0-35.0) pg MCHC 29.9 L (31.0-37.0) g/dL RDW 21.7 H (11.5-15.5) % Neutrophils # 7.9 H (1.3-7.7) k/uL Lymphocytes # 0.8 L (1.0-4.8) k/uL BUN 29 H (7-17) mg/dL Creatinine 1.39 H (0.52-1.04) mg/dL Glucose 111 H (74-99) mg/dL POC Glucose (mg/dL) 108 H (75-99) mg/dL Calcium 7.8 L (8.4-10.2) mg/dL 04/08/20 Range/Units 11:16 RBC (3.80-5.40) m/uL Hgb (11.4-16.0) gm/dL Hct (34.0-46.0) % MCH (25.0-35.0) pg MCHC (31.0-37.0) g/dL RDW (11.5-15.5) % Neutrophils # (1.3-7.7) k/uL Lymphocytes # (1.0-4.8) k/uL BUN (7-17) mg/dL Creatinine (0.52-1.04) mg/dL Glucose (74-99) mg/dL POC Glucose (mg/dL) 145 H (75-99) mg/dL Calcium (8.4-10.2) mg/dL Microbiology - Last 24 Hours (Table) 04/04/20 20:45 Gram Stain - Final Sputum Sputum Culture - Final Assessment and Plan Plan: 1 acute hypoxic respiratory failure secondary to pulmonary edema, most likely secondary to underlying valvular heart disease and severe aortic stenosis. The patient was extubated and currently she is on 3 L of oxygen by nasal cannula. He is extubation day #1. She was extubated on 04/07/2020. Chest x-ray still showing CHF and [place] pleural effusions. 2 acute ventilator-dependent respiratory failure secondary to above, extubated for now 3 severe valvular heart disease with severe aortic stenosis, as the patient is known to have moderate severe mitral regurgitation, moderate tricuspid regurgitation, moderate degree of pulmonary hypertension with a PA pressure of 39, Levaquin. Ejection fraction is no order of 50-55%. The patient has trace aortic insufficiency. 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 9 hyperlipidemia 10 history of TIA 11 history of chronic anemia microcytic hypochromic with a component of iron deficiency 12 nonspecific pulmonary nodularity noted on the CT of the abdomen and pelvis, with 8 mm nodular density in the lingula and 1.5 cm nodular density in the region of the right middle lobe 13 new onset atrial fibrillation with rapid ventricular response and currently she is on a amiodarone drip. The patient converted to sinus and the patient is off amiodarone for now. Plan Continue with IV Lasix 20 mg every 8 hours TPN for nutritional support Patient is currently off pressors Patient is currently on amiodarone and a rhythm is sinus Repeat swallow evaluation within next 2448 hrs. Currently on oxygen 3 beats per minute nasal cannula DNR/DNI CODE STATUS We'll continue to follow
[2020-04-08] MEDS: FAT EMULSION 20% 250 ML in EMPTY BAG 1 BAG IV SCH (15:41)
[2020-04-08] MEDS: MVI, ADULT NO.4 WITH VIT K 10 ML, TRACE (CONC-1ML/DOSE) 1 ML in AMINO ACID 4.25%-D10W+L... IV SCH ×3 (15:42)
--- NOTE | 2020-04-08 15:57 | PN ---
PROGRESS NOTE Mrs Ulloa is extubated. She feels better but she has failed a swallow test, going to be on peripheral nutrition intravenously. I am recommending that we continue IV labetalol as needed. She is in sinus rhythm, sinus tachycardia, hemodynamically stable. S1-S2 heard normal. Ejection systolic murmur is audible. Lungs reveal diminished air entry. Abdomen and lower extremity exam unchanged. Plan are to continue current medical regimen. She cannot take any oral medications because swallowing has been an issue. This will be re-evaluated later on. We will continue peripheral nutrition for her. Prognosis guarded. MMODL / IJN: [id number] /
[2020-04-08 16:59] LABS: Glucose,Whole Blood 144 mg/dL (75-99)
[2020-04-08] MEDS: NOREPINEPHRINE 8 MG in SODIUM CHLORIDE 0.9% 250 ML IV SCH (22:00)
[2020-04-08 23:33] LABS: Glucose,Whole Blood 193 mg/dL (75-99)
[2020-04-08] MEDS: DEXTROSE 5%-0.9% NACL 1,000 ML IV SCH (23:40)
[2020-04-09] MEDS: HYDROmorphone 1 MG/ML 1 ML SYRINGE IVP PRN ×2 (01:06→04:11)
[2020-04-09] MEDS: LABETALOL 5 MG/ML VIAL MDV IVP PRN (03:27)
[2020-04-09 04:39] LABS: Anisocytosis Moderate; Basophils % (A) 0 %; Eosinophils # (A) 0.3 k/uL (0-0.7); Eosinophils % (A) 4 %; HCT 28.5 % (34.0-46.0); HGB 8.6 gm/dL (11.4-16.0); Hypochromasia Marked; Lymphocytes # (A) 0.9 k/uL (1.0-4.8); Lymphocytes % (A) 10 %; MCHC 30.1 g/dL (31.0-37.0); MCV 79.6 fL (80.0-100.0); Mean Platelet Volume 7.9; Microcytosis Moderate; Monocytes # (A) 0.7 k/uL (0-1.0); Monocytes % (A) 8 %; Neutrophils % (A) 76 %; Platelet Count 304 k/uL (150-450); RBC 3.58 m/uL (3.80-5.40); RDW 22.1 % (11.5-15.5); WBC 9.2 k/uL (3.8-10.6)
[2020-04-09 04:49] LABS: Ionized Calcium 4.8 mg/dL (4.5-5.3)
[2020-04-09 04:57] LABS: Calcium 8.1 mg/dL (8.4-10.2); Phosphorus 3.4 mg/dL (2.5-4.5); Potassium 3.5 mmol/L (3.5-5.1)
[2020-04-09] MEDS: POTASSIUM CHLORIDE 20 MEQ in WATER FOR INJECTION 1 100ML.BAG IVPB SCH ×2 (05:18→07:29)
[2020-04-09 06:10] LABS: Glucose,Whole Blood 181 mg/dL (75-99)
[2020-04-09] MEDS: INSULIN ASPART (NovoLOG) 100 UNIT/ML VIAL SQ SCH ×4 (06:21→20:04)
--- NOTE | 2020-04-09 06:55 | XR ---
EXAMINATION TYPE: XR chest 1V portable DATE OF EXAM: 04/09/2020 HISTORY: sob. REFERENCE: Previous study dated 04/08/2020. FINDINGS: There is multichamber cardiac enlargement. There is worsening vascular congestion and pulmo nary edema. I cannot exclude small effusions. IMPRESSION: WORSENING CHANGES OF PULMONARY EDEMA.
[2020-04-09] MEDS: IPRATROPIUM 0.5 MG/2.5 ML NEBU INHALATION SCH ×4 (07:38→19:56)
[2020-04-09] MEDS ORDERED: amLODIPine 5 MG TAB PO SCH (09:00)
[2020-04-09] MEDS: FUROSEMIDE 10 MG/ML 4 ML VIAL IV SCH ×2 (09:14→20:04)
[2020-04-09] MEDS: PANTOPRAZOLE 40 MG/10 ML VIAL IVP SCH (09:14)
[2020-04-09] MEDS: METOPROLOL TARTRATE 50 MG TAB PO SCH ×2 (09:14→20:05)
[2020-04-09] MEDS: HEPARIN SODIUM,PORCINE 5,000 UNIT/ML 1 ML VIAL SQ SCH ×2 (09:14→15:26)
[2020-04-09] MEDS ORDERED: ENALAPRILAT 1.25 MG/ML 1 ML VIAL IVP PRN (10:51)
[2020-04-09] MEDS ORDERED: LABETALOL 5 MG/ML VIAL MDV IVP PRN (10:55)
--- NOTE | 2020-04-09 11:14 | P.PN ---
Progress Note - Text Progress Note Date: 04/09/20 The patient is more awake today. She really has no complaints. On exam vital signs are stable. Abdomen soft. Incision sites clean dry and intact. Her patient's swallow evaluation was repeated. She's passed a swallow evaluation. She will start on full liquid diet.
[2020-04-09 11:34] LABS: Glucose,Whole Blood 229 mg/dL (75-99)
[2020-04-09] MEDS: MVI, ADULT NO.4 WITH VIT K 10 ML, TRACE (CONC-1ML/DOSE) 1 ML in AMINO ACID 4.25%-D10W+L... IV SCH ×3 (11:42)
--- NOTE | 2020-04-09 12:43 | P.PN ---
Subjective Progress Note Date: 04/09/20 Sonal Ulloa is an 89-year-old female patient who presented to the emergency department today for evaluation of low hemoglobin. Patient is currently a resident at [facility]. She had labs performed yesterday and hemoglobin was 6.1. she was sent to [facility] emergency room for evaluation , she received 1 unit of red blood cell transfusion in the emergency room and she started developing shortness of breath repeat hemoglobin was 9.1 patient has a known history of iron deficiency anemia . She was admitted to medical floor gastroenterology consultation and hematology consultation were requested for evaluation of chronic anemia . 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 Patient is otherwise stable there is no fever or chills no headache or dizziness no chest pain no shortness of breath no cough no nausea or vomiting no abdominal pain no diarrhea and no urinary symptoms. On 03/31/2020 patient was seen and examined on the medical floor, there is no fever or chills no headache or dizziness no chest pain no shortness of breath no cough no nausea or vomiting no dominant pain nor diarrhea no burning with urination no frequency or urgency no hematuria, hemoglobin today is 7.6 white blood count 8.0 potassium 3. . On 04/01/2020 patient was seen and examined on the medical floor she is alert and oriented 3 in no apparent distress she is very hard of hearing, she denies any pain or discomfort at this time there is no chest pain or shortness of breath no cough no nausea or vomiting no abdominal pain no diarrhea no blood in the stools no burning with urination no frequency or urgency and no hematuria On 04/02/2020 patient was seen and examined on the medical floor she is feeling well there is no fever or chills no headache or dizziness no chest pain no shortness of breath no cough no nausea or vomiting no abdominal pain no diarrhea no burning with urination no frequency or urgency no hematuria she is scheduled for surgery tomorrow 04/03/2020 patient was seen and examined on the medical floor she is alert and oriented 3 in no apparent distress there is no fever or chills no headache or dizziness no chest pain no shortness of breath no cough no nausea or vomiting no abdominal pain no diarrhea no burning with urination no frequency or urgency no hematuria patient is going for surgery today. 04/04/2020 patient was seen and examined on the medical floor she is alert, con fused, in no apparent distress there is no fever or chills no headache or dizziness no chest pain no shortness of breath no cough no nausea or vomiting no abdominal pain no diarrhea no burning with urination no frequency or urgency no hematuria patient is post op day #1 On 04/05/2020 Patient was seen and examined in the ICU, events from last night noted, patient developed worsening shortness of breath and tachypnea, [facility] was called and patient was transferred to ICU she was intubated and started on mechanical ventilation, at this time patient is intubated sedated maintained on mechanical ventilation, maintained on levophed for pressure support On 04/06/2020, the patient is intubated and maintained on a mechanical ventilator. The blood gases from this morning showed a pH of 7.47 with a pCO2 of 40 and pO2 115. white cell count is at 11 with a hemoglobin of 8.7. the patient went into atrial fibrillation with rapid ventricular response and the patient was started on a amiodarone drip for rate control. Cardiology and critical care following. On 04/07/2020 patient was seen and examined in the ICU she is intubated sedated maintained on mechanical ventilation, ABGs this morning pH 7.33 pCO2 49 pO2 125 white blood count 10.1 hemoglobin 8.3 platelet count 244 BUN 27 creatinine 1.32 plan for today is to try to wean her off ventilation and extubate her if she is doing well, yesterday she had an episode of atrial fibrillation with rapid ventricular response she was seen by cardiology and she had amiodarone drip, patient is off amiodarone drip at this time. I had a prolonged discussion over the phone with patient's daughter Anai, all questions were answered. On 04/08/2020 patient was seen and examined in the ICU she is extubated she is maintained on oxygen via nasal cannula, and tolerating well, she is sitting up in a chair, she is very hard of hearing and and able to answer questions, nurse stated that she failed swallow evaluation, she will be maintained on TPN until Friday when speech therapy is available, there is no fever or chills no headache or dizziness no chest pain no shortness of breath no cough no nausea or vomiting no abdominal pain no diarrhea. On 04/09/2020 patient was seen and examined in the ICU, she is alert responsive in no apparent distress, there is no fever or chills no headache or dizziness no chest pain no shortness of breath no cough no nausea or vomiting she has some abdominal pain no burning with urination no frequency or urgency and no hematuria, patient is maintained on oxygen via nasal cannula and is tolerating well at this time Objective - Vital Signs Vital signs: Vital Signs Temp 97.4 F L 04/09/20 04:00 Pulse 80 04/09/20 07:47 Resp 17 04/09/20 07:00 BP 151/75 04/09/20 07:00 Pulse Ox 98 04/09/20 07:00 Intake & Output 04/08/20 04/09/20 04/09/20 18:59 06:59 18:59 Intake Total 748 1050 1070 Output Total 1620 1725 70 Balance -872 -675 1000 Weight 51.528 kg 47.174 kg Intake: IV 748 1050 70 Dextrose 5%-0.9% NaCl 1, 240 240 20 000 ml @ 20 mls/hr IV . Q24H [facility] Rx#:[id number] Fat Emulsion 20% 250 ml 84 210 In Empty Bag 1 bag @ 21 mls/hr IV Q24H [facility] Rx#: [id number] Mvi, Adult No.4 with Vit 200 600 50 K 10 ml Trace (Conc-1Ml/ Dose) 1 ml In Amino Acid 4.25%-D10w+Lytes*E* 1,000 ml @ 50 mls/hr IV . [id number] [facility] Rx#:[id number] Normal Saline Pressure 24 Bag Potassium Chloride 10 meq 200 In Water For Injection 1 100ml.bag @ 100 mls/hr IVPB Q1H [facility] Rx#: [id number] Intake, IV Titration 1000 Amount Mvi, Adult No.4 with Vit 1000 K 10 ml Trace (Conc-1Ml/ Dose) 1 ml In Amino Acid 4.25%-D10w+Lytes*E* 1,000 ml @ 50 mls/hr IV . [id number] [facility] Rx#:[id number] Output: Urine 1620 1725 70 Other: Voiding Method Indwelling Catheter Indwelling Catheter ABP, PAP, CO, CI - Last Documented Arterial Blood Pressure 137/45 - Exam In general patient alert responsive in no apparent distress HEENT head normocephalic and atraumatic Neck is supple no JVD no goiter no lymphadenopathy Chest exam reveals a few scattered crackles no wheezing Cardiac exam reveals regular heart sounds no gallops no murmurs Abdomen is soft nontender no organomegaly with normal bowel sounds Extremity exam reveals no edema no cyanosis or clubbing Neurological examination reveals no gross focal deficit - Labs CBC & Chem 7: 04/09/20 04:15 04/09/20 11:29 Labs: Abnormal Lab Results - Last 24 Hours (Table) 04/08/20 04/08/20 04/09/20 Range/Units 16:57 23:32 04:15 RBC 3.58 L (3.80-5.40) m/uL Hgb 8.6 L (11.4-16.0) gm/dL Hct 28.5 L (34.0-46.0) % MCV 79.6 L (80.0-100.0) fL MCH 24.0 L (25.0-35.0) pg MCHC 30.1 L (31.0-37.0) g/dL RDW 22.1 H (11.5-15.5) % Lymphocytes # 0.9 L (1.0-4.8) k/uL Carbon Dioxide (22-30) mmol/L BUN (7-17) mg/dL Creatinine (0.52-1.04) mg/dL Glucose (74-99) mg/dL POC Glucose (mg/dL) 144 H 193 H (75-99) mg/dL Calcium (8.4-10.2) mg/dL 04/09/20 04/09/20 04/09/20 Range/Units 04:15 06:09 11:33 RBC (3.80-5.40) m/uL Hgb (11.4-16.0) gm/dL Hct (34.0-46.0) % MCV (80.0-100.0) fL MCH (25.0-35.0) pg MCHC (31.0-37.0) g/dL RDW (11.5-15.5) % Lymphocytes # (1.0-4.8) k/uL Carbon Dioxide 32 H (22-30) mmol/L BUN 33 H (7-17) mg/dL Creatinine 1.12 H (0.52-1.04) mg/dL Glucose 175 H (74-99) mg/dL POC Glucose (mg/dL) 181 H 229 H (75-99) mg/dL Calcium 8.1 L (8.4-10.2) mg/dL Assessment and Plan Plan: 1. Acute respiratory failure, likely related to pulmonary edema requiring transfer to ICU, intubation and mechanical ventilation 2. CKD stage 3 Will consult nephrology for possible outpatient follow-up for Procrit injections 3. fluid overload with shortness of breath after 1 unit red blood cell transfusion 4. Underlying history of hypertension 5. Underlying history of hyperlipidemia 6. Underlying history of COPD 7. Underlying history of insulin-dependent diabetes mellitus 8. surgery partial colectomy for colon mass, postoperative day #3 9. Atrial fibrillation with rapid ventricular response patient was started on amiodarone drip
--- NOTE | 2020-04-09 12:54 | P.PN ---
Subjective Progress Note Date: 04/09/20 The patient is seen today 03/30/2020 in follow-up on the selective care unit. She is currently resting comfortably in bed. Awake and alert in no acute distress. Denies any worsening shortness of breath cough or congestion. No noted bleeding. White count 8.6. Hemoglobin 7.9. Sodium 136. Potassium 3.8. Creatinine 1.46. She is status post 1 unit of packed red blood cells this admission. Plan is for EGD/colonoscopy today. On 03/31/2020 patient seen in follow-up on selective care unit, she is awake and alert, in no acute distress, patient is extremely hard of hearing which makes communicating with her very difficult. Her breathing is comfortable, she is currently on 2 L of oxygen with a pulse ox of 99 200%, lung sounds are clear. No rhonchi, no wheezing. Yesterday patient could not complete her EGD related to stricture, and procedure was aborted, colonoscopy revealed a cecal mass, s tatus post biopsies. The mass was suspicious for neoplasm. CT of abdomen and pelvis has been completed showing soft tissue at the level of the cecum, and nonspecific pulmonary nodularity, with 8 mm nodular density in the region of the lingula as well as the 1.5 cm nodular density in the region of the right middle lobe which could be postinflammatory in nature. Dedicated computed tomography scan of the chest was advised. On 04/03/2020 patient seen in follow-up on [facility], she is sitting up in the chair, in no acute distress, she is currently on 2 L of oxygen pulse ox of 99%, hemodynamically stable, she is afebrile, her abdomen is soft, although somewhat distended. 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 His labs have been reviewed, with blood cell count is 9.2, hemoglobin is 9.7. Patient is status post transfusion with 2 units of packed red blood cells this admission. Denies any chest pain, she does admit to being somewhat short of breath, lung sounds reveal faint wheezes in the upper lobes. He is on breathing treatments, Symbicort, she is on maintenance dose of oral Lasix. Patient has not had any new chest x-rays since admission On 04/04/2020 patient seen in follow-up on selective care unit, she status post right colectomy, this is postoperative day 1. Patient is complaining of a lot of abdominal incisional pain. She is on epidural infusion with bupivacaine and Dilaudid currently running at 5 ML per hour. IV D5 half-normal saline with 20 of potassium at 125 ML per hour. Abdomen is soft, she denies any nausea or vomiting. She denies having much of an appetite. She refused her morning tray. Bowel sounds are active 4, but she has not passed any bowel movement or passed gas, mid abdominal incision is clean dry and intact, covered with surgical dressing with minimal amount of sanguinous drainage which is old. Today's labs have been reviewed, showing white blood cell count of 11.4, hemoglobin is 9.2, serum sodium is 135, the rest of electrolytes were within normal limits, BUN is 24 creatinine is 0.91. Patient had some mild confusion last night, she is answering questions appropriately, however patient is very hard of hearing, she is answering basic questions appropriately, does not seem to be confused this morning. Vital signs are stable. She is on 2 L of oxygen a pulse ox of 99%. Breathing is comfortable, low-grade fever this morning, with a temp of 99.3, and was afebrile. On today's evaluation of 04/05/2020, the patient is being seen in intensive care unit. Note that the patient got chest with the ICU as the patient went into acute respiratory failure due to an acute pulmonary edema. She is known to have severe mitral regurgitation with a preserved LV function is some increased echocardiogram.. Note that she came in to the ICU and she was quite hypoxic and tachypneic and unresponsive. We had to intubated and placed on a mechanical ventilator. Accordingly, the patient was vented and this morning she is calm and comfortable on propofol running at 50 g per KG per minute. IV fluids at KVO. She is producing adequate amount of urine output. Overnight she was given a dose of Lasix and she is achieving a negative fluid balance. I will continue the Lasix at a dose of 20 mg IV push every 12 hours. Chest x-ray still showing pulmonary edema. His morning, she is an assist-control mode of ventilation at the rate of 20 with tidal volume of 400 and FiO2 of 40% with a PEEP of 5. The patient's blood gases showed a pH of 7.53 with a pCO2 of 39 and pO2 of 98. The patient has a white cell count of 11.1 with a hemoglobin of 8.5. She is currently nothing by mouth. Abdomen is nondistended. Surgical wound site over the mid abdomen is dry clean and intact. No direct tenderness. No rebound tenderness no guarding. There are some hypoactive bowel sounds. Renal function stable with a creatinine of 1.1. This electrodes are all within normal limits. LFTs are also within normal limits. On 04/06/2020, the patient remains intubated on a mechanical ventilator. She is arousable with stimulation despite being on propofol. The patient is on propofol at 40 mg per KG per minute. She is also receiving IV Lasix 20 mg every 12 hours pH she remains in a negative fluid balance. Chest x-ray showing small bilateral pleural effusion and increased pulmonary vascular markings consistent with CHF. Noted the patient has severe aortic stenosis along with a component of mitral regurgitation. This morning, she is an assist-control mode at the rate of 12 with a tidal volume of 400 and FiO2 of 40% with a PEEP of 5. The blood gases from this morning showed a pH of 7.47 with a pCO2 of 40 and pO2 115. The white cell count is at 11 with a hemoglobin of 8.7. I was in the process of getting this patient a sedation holiday. Nevertheless, the patient went into atrial fibrillation with rapid ventricular response and the patient was started on a amiodarone drip for rate control. Based on this, I aborted on the further weaning that I was planning earlier. The plan for now is to control the heart rate for now. We also get a clearance from surgery regarding her feeds and if not extubated today we'll may started on some tube feeds for enteral feeding and nutritional support. The patient has adequate urine output. The patient and without active stable. A triple lumen catheter was established yesterday. No other significant events overnight. She continues to diabetes adequately and the patient is being seen by cardiology on a regular basis. On 04/07/2020, the patient remains intubated on a mechanical ventilator. The weaning process yesterday got interrupted as the patient developed atrial fibrillation with rapid ventricular response. The patient was given amiodarone and subsequent she was converted back into a normal sinus rhythm. Currently the patient amiodarone. Patient is on propofol which is currently running at 40 mg per KG per IV fluids at 50 mL an hour of normal saline. The patient on Lasix 20 mg every 12 hours and the patient is a negative fluid balance of 700 mL. Bowel sounds are hypoactive still. The incision over the mid abdomen is dry clean and intact. She is currently in normal sinus rhythm. Despite her being on sedation with propofol, the patient is easily arousable. I'm in the process of getting the patient sedation holiday in anticipation for extubation today. I reviewed the chest x-ray from todayAnd the patient has bilateral pleural effusion and interstitial edema. ET tube is around 1 cm above the meggan.. Based on all this, the patient was taken off the sedation. The patient was given a sedation holiday. Weaning parameters were checked. Subsequently the patient was placed on a pressure support of 5 and a PEEP of 5 and a blood gas in 30 minutes showed a pH of 7.38 with a pCO2 of 45 and a pO2 of 131. At that point, decide to extubate the patient. On 04/08/2020, the patient is still extubated. She is looking well. Chest x- ray still showing CHF about the pleural effusions and edema. Nevertheless the patient is responding nicely to diuretics and the patient on Lasix 20 mg IV push every 8 hours. She remains in a negative fluid balance. No fever. No chills. No night sweats. Surgical wound site is dry clean and intact. Hypoactive bowel sounds and the patient had one stool that was quite liquidy and was minimal in amount. Meanwhile, the patient failed a swallow evaluation and I made recommendations to start on TPN and a swallow evaluation AGAIN NEXT 24-48 HOURS TO CLEAR THIS PATIENT FOR ORAL FEEDS. The patient otherwise is hard of hearing is difficult to communicate with her. She is resting comfortably in bed. CODE STATUS is DNR/DNI. Family did not want reintubation should she go into respir atory failure. Her hemoglobin is 8.5. Creatinine is at 1.3 and stable. Sodium is at 40. On 04/09/2020, the patient's chest x-ray still showing pulmonary edema. The patient is on Lasix 20 mg IV push every 8 hours and this was switched to 40 g every 12 hours. The patient remains a negative fluid balance. Despite all this, she is able to breathe comfortably. He she was given TPN for nutritional support, however, on today's evaluation she was able to pass a swallow evaluation and she will be given also oral intake. IV fluids are currently to KVO. The patient has a clean surgical abdominal wounds. No abdominal pain or tenderness. She does have a loose bowel movements yesterday. No other significant events overnight otherwise. The patient's renal function is stable with a creatinine of 1.1 and creatinine of 33. Hemoglobin is at 8.6. Objective - Vital Signs Vital signs: Vital Signs Temp 97.4 F L 04/09/20 04:00 Pulse 80 04/09/20 07:47 Resp 17 04/09/20 07:00 BP 151/75 04/09/20 07:00 Pulse Ox 98 04/09/20 07:00 Intake & Output 04/08/20 04/09/20 04/09/20 18:59 06:59 18:59 Intake Total 748 1050 1070 Output Total 1620 1725 70 Balance -872 -675 1000 Weight 51.528 kg 47.174 kg Intake: IV 748 1050 70 Dextrose 5%-0.9% NaCl 1, 240 240 20 000 ml @ 20 mls/hr IV . Q24H [facility] Rx#:[id number] Fat Emulsion 20% 250 ml 84 210 In Empty Bag 1 bag @ 21 mls/hr IV Q24H [facility] Rx#: [id number] Mvi, Adult No.4 with Vit 200 600 50 K 10 ml Trace (Conc-1Ml/ Dose) 1 ml In Amino Acid 4.25%-D10w+Lytes*E* 1,000 ml @ 50 mls/hr IV . [id number] [facility] Rx#:[id number] Normal Saline Pressure 24 Bag Potassium Chloride 10 meq 200 In Water For Injection 1 100ml.bag @ 100 mls/hr IVPB Q1H [facility] Rx#: [id number] Intake, IV Titration 1000 Amount Mvi, Adult No.4 with Vit 1000 K 10 ml Trace (Conc-1Ml/ Dose) 1 ml In Amino Acid 4.25%-D10w+Lytes*E* 1,000 ml @ 50 mls/hr IV . [id number] [facility] Rx#:[id number] Output: Urine 1620 1725 70 Other: Voiding Method Indwelling Catheter Indwelling Catheter ABP, PAP, CO, CI - Last Documented Arterial Blood Pressure 137/45 - Exam Elderly female patient currently on 3 L of oxygen by nasal cannula with a pulse of 99%. Head exam was generally normal. There was no scleral icterus or corneal arcus. Mucous membranes were moist. Neck is supple and there is a positive JVDs bilaterally. There is no goiter or neck masses. Lungs sounds are diminished and there is some crackles in the mid and lower lung his bilaterally. Heart sounds are regular this systolic ejection murmur grade 4/6 radiating to the neck heard throughout the precordium mainly in the apex and along the left lateral sternal border. Abdomen is shows no significant distention. There is a incisional mid abdomen which is dry clean and intact. No direct tenderness. No rebound tenderness. No guarding. Hypoactive bowel sounds. No ascites. Examination of the extremities revealed easily palpable radial, femoral and pedal pulses. There was no cyanosis, clubbing or edema. Examination of the skin revealed no evidence of significant rashes, suspicious appearing nevi or other concerning lesions. Neurologically the patient is awake and alert and there is no focal neurological deficit. She withdraws to painful stimulation in all 4 extremities. - Labs CBC & Chem 7: 04/09/20 04:15 04/09/20 11:29 Labs: Abnormal Lab Results - Last 24 Hours (Table) 04/08/20 04/08/20 04/09/20 Range/Units 16:57 23:32 04:15 RBC 3.58 L (3.80-5.40) m/uL Hgb 8.6 L (11.4-16.0) gm/dL Hct 28.5 L (34.0-46.0) % MCV 79.6 L (80.0-100.0) fL MCH 24.0 L (25.0-35.0) pg MCHC 30.1 L (31.0-37.0) g/dL RDW 22.1 H (11.5-15.5) % Lymphocytes # 0.9 L (1.0-4.8) k/uL Carbon Dioxide (22-30) mmol/L BUN (7-17) mg/dL Creatinine (0.52-1.04) mg/dL Glucose (74-99) mg/dL POC Glucose (mg/dL) 144 H 193 H (75-99) mg/dL Calcium (8.4-10.2) mg/dL 04/09/20 04/09/20 04/09/20 Range/Units 04:15 06:09 11:33 RBC (3.80-5.40) m/uL Hgb (11.4-16.0) gm/dL Hct (34.0-46.0) % MCV (80.0-100.0) fL MCH (25.0-35.0) pg MCHC (31.0-37.0) g/dL RDW (11.5-15.5) % Lymphocytes # (1.0-4.8) k/uL Carbon Dioxide 32 H (22-30) mmol/L BUN 33 H (7-17) mg/dL Creatinine 1.12 H (0.52-1.04) mg/dL Glucose 175 H (74-99) mg/dL POC Glucose (mg/dL) 181 H 229 H (75-99) mg/dL Calcium 8.1 L (8.4-10.2) mg/dL Assessment and Plan Plan: 1 acute hypoxic respiratory failure secondary to pulmonary edema, most likely secondary to underlying valvular heart disease and severe aortic stenosis. The patient was extubated and currently she is on 3 L of oxygen by nasal cannula. He is extubation day #2. She was extubated on 04/07/2020. Chest x-ray still showing CHF and bilateral pleural effusions and the patient continues to be on IV Lasix 40 mg every 12 hours. She remains a negative fluid balance. No signs of respiratory distress and she is on 3 Suboxone by nasal cannula. 2 acute ventilator-dependent respiratory failure secondary to above, extubated for now, still stable and tolerating extubation 3 severe valvular heart disease with severe aortic stenosis, as the patient is known to have moderate severe mitral regurgitation, moderate tricuspid regurgitation, moderate degree of pulmonary hypertension with a PA pressure of 39, Levaquin. Ejection fraction is no order of 50-55%. The patient has trace aortic insufficiency. 4 cecal mass post colectomy and the patient is postop day # 6 and the patient has hypoactive bowel sounds, the patient failed a swallow evaluation the patient is on TPN for nutritional support 5 history of esophageal stricture 6 coronary artery disease with previous coronary stent insertion 7 diabetes mellitus 8 hypertension with hypertensive heart disease with moderate concentric LVH. 9 hyperlipidemia 10 history of TIA 11 history of chronic anemia microcytic hypochromic with a component of iron deficiency 12 nonspecific pulmonary nodularity noted on the CT of the abdomen and pelvis, with 8 mm nodular density in the lingula and 1.5 cm nodular density in the leonard on of the right middle lobe 13 new onset atrial fibrillation with rapid ventricular response and currently she is on a amiodarone drip. The patient converted to sinus and the patient is off amiodarone for now. Plan Continue with IV Lasix 40 mg every 12 hours TPN for nutritional support, for another 24 hours to the patient catches up with her oral intake Patient is currently off pressors Currently on oxygen 3 beats per minute nasal cannula DNR/DNI CODE STATUS We'll continue to follow
--- NOTE | 2020-04-09 13:17 | PN ---
PROGRESS NOTE Mrs. Ulloa is in sinus rhythm with the IVCD. She had an elevated blood pressure requiring labetalol and also intravenous Vasotec. She is going to have another swallow test and if she is able to swallow, we will give her oral medications. She is overall doing better, extubated. If swallow test is positive, she will start having some oral intake. Vital signs stable. JVD is evident. Ejection systolic murmur is audible at the base. Lungs reveal improved air entry. Abdomen and lower extremity exam unchanged. Prognosis remains guarded. MMODL / IJN: [id number] /
[2020-04-09] MEDS: FAT EMULSION 20% 250 ML in EMPTY BAG 1 BAG IV SCH (15:26)
[2020-04-09 16:56] LABS: Glucose,Whole Blood 226 mg/dL (75-99)
[2020-04-09] MEDS: FUROSEMIDE 10 MG/ML 2 ML VIAL IV SCH (17:40)
[2020-04-09] MEDS: SERAX PO PRN (19:07)
[2020-04-09 19:55] LABS: Glucose,Whole Blood 156 mg/dL (75-99)
[2020-04-09] MEDS: amLODIPine 5 MG TAB PO SCH (20:05)
[2020-04-09] MEDS: SODIUM CHLORIDE 0.9% 500 ML 500 ML IV SCH (20:05)
[2020-04-09] MEDS: NOREPINEPHRINE 8 MG in SODIUM CHLORIDE 0.9% 250 ML IV SCH (22:51)
[2020-04-10] MEDS: INSULIN ASPART (NovoLOG) 100 UNIT/ML VIAL SQ SCH ×5 (00:56→20:40)
[2020-04-10 00:57] LABS: Glucose,Whole Blood 128 mg/dL (75-99)
[2020-04-10] MEDS: HEPARIN SODIUM,PORCINE 5,000 UNIT/ML 1 ML VIAL SQ SCH ×4 (00:58→23:44)
[2020-04-10] MEDS: HYDROmorphone 1 MG/ML 1 ML SYRINGE IVP PRN (02:01)
[2020-04-10 04:09] LABS: Anisocytosis Moderate; Basophils # (A) 0.1 k/uL (0-0.2); Basophils % (A) 1 %; Eosinophils # (A) 0.6 k/uL (0-0.7); Eosinophils % (A) 5 %; HCT 29.9 % (34.0-46.0); HGB 8.9 gm/dL (11.4-16.0); Hypochromasia Marked; Lymphocytes # (A) 1.3 k/uL (1.0-4.8); Lymphocytes % (A) 11 %; MCH 23.4 pg (25.0-35.0); MCHC 29.7 g/dL (31.0-37.0); MCV 78.8 fL (80.0-100.0); Mean Platelet Volume 7.9; Microcytosis Moderate; Monocytes # (A) 0.7 k/uL (0-1.0); Monocytes % (A) 6 %; Neutrophils # (A) 8.5 k/uL (1.3-7.7); Neutrophils % (A) 75 %; Platelet Count 337 k/uL (150-450); RDW 22.1 % (11.5-15.5); WBC 11.4 k/uL (3.8-10.6)
[2020-04-10 04:40] LABS: Albumin 2.7 g/dL (3.5-5.0); Calcium 8.4 mg/dL (8.4-10.2); Magnesium 1.9 mg/dL (1.6-2.3); Phosphorus 2.8 mg/dL (2.5-4.5); Potassium 3.6 mmol/L (3.5-5.1); Total Bilirubin 0.9 mg/dL (0.2-1.3)
[2020-04-10] MEDS ORDERED: Magnesium Replacement Protocol 1 EACH MISC MISCELLANE PRN (04:45)
[2020-04-10] MEDS: POTASSIUM CHLORIDE 20 MEQ in WATER FOR INJECTION 1 100ML.BAG IVPB SCH ×2 (05:00→07:00)
[2020-04-10] MEDS: MAGNESIUM SULFATE-D5W PMX 1 GM in DEXTROSE/WATER 1 100ML.BAG IVPB SCH ×2 (05:00→06:06)
[2020-04-10 06:44] LABS: Glucose,Whole Blood 209 mg/dL (75-99)
[2020-04-10] MEDS: MVI, ADULT NO.4 WITH VIT K 10 ML, TRACE (CONC-1ML/DOSE) 1 ML in AMINO ACID 4.25%-D10W+L... IV SCH ×3 (07:01)
[2020-04-10] MEDS: IPRATROPIUM 0.5 MG/2.5 ML NEBU INHALATION SCH ×4 (07:19→20:05)
[2020-04-10] MEDS: FUROSEMIDE 10 MG/ML 4 ML VIAL IV SCH ×2 (08:11→20:42)
[2020-04-10] MEDS: METOPROLOL TARTRATE 50 MG TAB PO SCH ×2 (08:13→20:42)
[2020-04-10] MEDS: amLODIPine 5 MG TAB PO SCH ×2 (08:13→20:42)
[2020-04-10] MEDS: PANTOPRAZOLE 40 MG/10 ML VIAL IVP SCH (08:13)
[2020-04-10 11:30] LABS: Glucose,Whole Blood 174 mg/dL (75-99)
[2020-04-10 11:49] LABS: Hemoglobin A1C 5.8 % (4.0-6.0)
--- NOTE | 2020-04-10 12:47 | P.PN ---
Subjective Progress Note Date: 04/10/20 Principal diagnosis: Anemia and now cecal mass Recovering in ICU, Extubated. On Nasal Canula. Iron Sulfate IV ordered. Objective - Vital Signs Vital signs: Vital Signs Temp 99 F 04/10/20 08:00 Pulse 70 04/10/20 11:13 Resp 22 04/10/20 10:00 BP 127/80 04/10/20 10:00 Pulse Ox 96 04/10/20 10:00 Intake & Output 04/09/20 04/10/20 04/10/20 18:59 06:59 18:59 Intake Total 3207 467 6838.833 Output Total 1310 1605 330 Balance 564 -1022 808.833 Weight 47.718 kg 47.718 kg Intake: IV 574 533 123 Dextrose 5%-0.9% NaCl 1, 240 20 000 ml @ 20 mls/hr IV . Q24H [facility] Rx#:[id number] Fat Emulsion 20% 250 ml 84 273 63 In Empty Bag 1 bag @ 21 mls/hr IV Q24H [facility] Rx#: [id number] Mvi, Adult No.4 with Vit 250 K 10 ml Trace (Conc-1Ml/ Dose) 1 ml In Amino Acid 4.25%-D10w+Lytes*E* 1,000 ml @ 50 mls/hr IV . [id number] [facility] Rx#:[id number] Sodium Chloride 0.9% 500 240 60 ml 500 ml @ 20 mls/hr IV .Q24H [facility] Rx#:[id number] Intake, IV Titration 1100 965.833 Amount Mvi, Adult No.4 with Vit 1000 965.833 K 10 ml Trace (Conc-1Ml/ Dose) 1 ml In Amino Acid 4.25%-D10w+Lytes*E* 1,000 ml @ 50 mls/hr IV . [id number] [facility] Rx#:[id number] Potassium Chloride 20 meq 100 In Water For Injection 1 100ml.bag @ 50 mls/hr IVPB Q2H [facility] Rx#: [id number] Oral 200 50 50 Output: Urine 1310 1605 330 Other: Voiding Method Indwelling Catheter Indwelling Catheter # Bowel Movements 1 ABP, PAP, CO, CI - Last Documented Arterial Blood Pressure 137/45 - Exam - General NAD, Nasal Canula - Eyes PERRL - Neck no masses - Respiratory normal expansion - Cardiovascular Rhythm: Irregular irregular - Abdomen Abdomen: evidence of recent surgery Ext: BLE edema Psch: Non FOcal - Labs CBC & Chem 7: 04/10/20 04:00 04/10/20 11:25 Labs: Abnormal Lab Results - Last 24 Hours (Table) 04/09/20 04/09/20 04/10/20 Range/Units 16:54 19:52 00:56 WBC (3.8-10.6) k/uL Hgb (11.4-16.0) gm/dL Hct (34.0-46.0) % MCV (80.0-100.0) fL MCH (25.0-35.0) pg MCHC (31.0-37.0) g/dL RDW (11.5-15.5) % Neutrophils # (1.3-7.7) k/uL Sodium (137-145) mmol/L Carbon Dioxide (22-30) mmol/L BUN (7-17) mg/dL Glucose (74-99) mg/dL POC Glucose (mg/dL) 226 H 156 H 128 H (75-99) mg/dL AST (14-36) U/L Alkaline Phosphatase (38-126) U/L Total Protein (6.3-8.2) g/dL Albumin (3.5-5.0) g/dL 04/10/20 04/10/20 04/10/20 Range/Units 04:00 04:00 06:43 WBC 11.4 H (3.8-10.6) k/uL Hgb 8.9 L (11.4-16.0) gm/dL Hct 29.9 L (34.0-46.0) % MCV 78.8 L (80.0-100.0) fL MCH 23.4 L (25.0-35.0) pg MCHC 29.7 L (31.0-37.0) g/dL RDW 22.1 H (11.5-15.5) % Neutrophils # 8.5 H (1.3-7.7) k/uL Sodium 135 L (137-145) mmol/L Carbon Dioxide 32 H (22-30) mmol/L BUN 37 H (7-17) mg/dL Glucose 180 H (74-99) mg/dL POC Glucose (mg/dL) 209 H (75-99) mg/dL AST 39 H (14-36) U/L Alkaline Phosphatase 133 H (38-126) U/L Total Protein 6.0 L (6.3-8.2) g/dL Albumin 2.7 L (3.5-5.0) g/dL 04/10/20 Range/Units 11:27 WBC (3.8-10.6) k/uL Hgb (11.4-16.0) gm/dL Hct (34.0-46.0) % MCV (80.0-100.0) fL MCH (25.0-35.0) pg MCHC (31.0-37.0) g/dL RDW (11.5-15.5) % Neutrophils # (1.3-7.7) k/uL Sodium (137-145) mmol/L Carbon Dioxide (22-30) mmol/L BUN (7-17) mg/dL Glucose (74-99) mg/dL POC Glucose (mg/dL) 174 H (75-99) mg/dL AST (14-36) U/L Alkaline Phosphatase (38-126) U/L Total Protein (6.3-8.2) g/dL Albumin (3.5-5.0) g/dL Assessment and Plan Plan: Assessment and Plan New Diagnoses Early Stagre Adenocarcinoma of the COlon: - No adjuvant Chemotherapy recommended - T2N0 Microcytic hypochromic anemia - - Multifactorial Iron deficiency with component of CKD and now GI Mass responsible for Blood loss component - - Continue on Epogen - Parental Iron ordered for an additional 5 days - Daily CBC - General surgerystatus post right colectomy 04/03 - Path from biopsies on 03/30/20 high grade adenocarcinoma consistent with colon primary - Path from right hemicolectomy reveals T2, N0 - therefore no adjuvant treatment necessary moving forward. Chronic kidney disease (unknown stage) - Erythropoietin supplementation for of chronic kidney disease initiated, first dose of Aranesp 40 mg to be given today. - It was confirmed that the skilled nursing is able to administer Aranesp. - Orders have been placed in the discharge paperwork for same. -surgical resection 04/03 of newly found mass Acute Hypoxic Respiratory Failure: Resolved - Requiring Ventilation and ICU care - Will await recovery from current situation - Now extubated and on Nasal Canula
[2020-04-10] MEDS: SODIUM FERRIC GLUCONAT-SUCROSE 125 MG in SODIUM CHLORIDE 0.9% 100 ML IVPB SCH (13:20)
[2020-04-10] MEDS: FAT EMULSION 20% 250 ML in EMPTY BAG 1 BAG IV SCH (13:21)
--- NOTE | 2020-04-10 13:25 | P.PN ---
Subjective Progress Note Date: 04/10/20 Principal diagnosis: Acute hypoxic respiratory failure secondary to acute pulmonary edema, acute diastolic congestive heart failure, and underlying interstitial lung disease. 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 Presently on O2 at 3 L/m, IV fluid is at 50 mL per hour. And she is on TPN but she is able to take clear liquids. Patient required BiPAP over the weekend. She is on Lasix at 40 mg IV push every 12 hours. Chest x-ray again showed interstitial lung disease and atelectasis. Small right-sided pleural effusion. Labs including CBC and basic metabolic profile are basically unremarkable. Objective - Vital Signs Vital signs: Vital Signs Temp 99 F 04/10/20 08:00 Pulse 70 04/10/20 11:13 Resp 22 04/10/20 10:00 BP 127/80 04/10/20 10:00 Pulse Ox 96 04/10/20 10:00 Intake & Output 04/09/20 04/10/20 04/10/20 18:59 06:59 18:59 Intake Total 5139 854 4264.833 Output Total 1310 1605 330 Balance 564 -1022 808.833 Weight 47.718 kg 47.718 kg Intake: IV 574 533 123 Dextrose 5%-0.9% NaCl 1, 240 20 000 ml @ 20 mls/hr IV . Q24H [facility] Rx#:[id number] Fat Emulsion 20% 250 ml 84 273 63 In Empty Bag 1 bag @ 21 mls/hr IV Q24H [facility] Rx#: [id number] Mvi, Adult No.4 with Vit 250 K 10 ml Trace (Conc-1Ml/ Dose) 1 ml In Amino Acid 4.25%-D10w+Lytes*E* 1,000 ml @ 50 mls/hr IV . [id number] [facility] Rx#:[id number] Sodium Chloride 0.9% 500 240 60 ml 500 ml @ 20 mls/hr IV .Q24H [facility] Rx#:[id number] Intake, IV Titration 1100 965.833 Amount Mvi, Adult No.4 with Vit 1000 965.833 K 10 ml Trace (Conc-1Ml/ Dose) 1 ml In Amino Acid 4.25%-D10w+Lytes*E* 1,000 ml @ 50 mls/hr IV . [id number] [facility] Rx#:[id number] Potassium Chloride 20 meq 100 In Water For Injection 1 100ml.bag @ 50 mls/hr IVPB Q2H [facility] Rx#: [id number] Oral 200 50 50 Output: Urine 1310 1605 330 Other: Voiding Method Indwelling Catheter Indwelling Catheter # Bowel Movements 1 ABP, PAP, CO, CI - Last Documented Arterial Blood Pressure 137/45 - Exam Physical Exam: Revealed 89-year-old female in no distress. Head: Atraumatic, normocephalic. HEENT:[Neck is supple.] [No neck masses.] [No thyromegaly.] [No JVD.] Chest: [Symmetrical chest expansion, crackles at the bases. No rhonchi and no wheezes..] Cardiac Exam: [Normal S1 and S2, no S3 gallop, no murmur.] Abdomen: [Soft, nontender, no megaly, no rebound, no guarding, normal bowel sounds.] Extremities: [No clubbing, no edema, no cyanosis.] Neurological Exam: [No focal neurologic deficit.] Alert and oriented 3. - Labs CBC & Chem 7: 04/10/20 04:00 04/10/20 11:25 Labs: Abnormal Lab Results - Last 24 Hours (Table) 04/09/20 04/09/20 04/10/20 Range/Units 16:54 19:52 00:56 WBC (3.8-10.6) k/uL Hgb (11.4-16.0) gm/dL Hct (34.0-46.0) % MCV (80.0-100.0) fL MCH (25.0-35.0) pg MCHC (31.0-37.0) g/dL RDW (11.5-15.5) % Neutrophils # (1.3-7.7) k/uL Sodium (137-145) mmol/L Carbon Dioxide (22-30) mmol/L BUN (7-17) mg/dL Glucose (74-99) mg/dL POC Glucose (mg/dL) 226 H 156 H 128 H (75-99) mg/dL AST (14-36) U/L Alkaline Phosphatase (38-126) U/L Total Protein (6.3-8.2) g/dL Albumin (3.5-5.0) g/dL 04/10/20 04/10/20 04/10/20 Range/Units 04:00 04:00 06:43 WBC 11.4 H (3.8-10.6) k/uL Hgb 8.9 L (11.4-16.0) gm/dL Hct 29.9 L (34.0-46.0) % MCV 78.8 L (80.0-100.0) fL MCH 23.4 L (25.0-35.0) pg MCHC 29.7 L (31.0-37.0) g/dL RDW 22.1 H (11.5-15.5) % Neutrophils # 8.5 H (1.3-7.7) k/uL Sodium 135 L (137-145) mmol/L Carbon Dioxide 32 H (22-30) mmol/L BUN 37 H (7-17) mg/dL Glucose 180 H (74-99) mg/dL POC Glucose (mg/dL) 209 H (75-99) mg/dL AST 39 H (14-36) U/L Alkaline Phosphatase 133 H (38-126) U/L Total Protein 6.0 L (6.3-8.2) g/dL Albumin 2.7 L (3.5-5.0) g/dL 04/10/20 Range/Units 11:27 WBC (3.8-10.6) k/uL Hgb (11.4-16.0) gm/dL Hct (34.0-46.0) % MCV (80.0-100.0) fL MCH (25.0-35.0) pg MCHC (31.0-37.0) g/dL RDW (11.5-15.5) % Neutrophils # (1.3-7.7) k/uL Sodium (137-145) mmol/L Carbon Dioxide (22-30) mmol/L BUN (7-17) mg/dL Glucose (74-99) mg/dL POC Glucose (mg/dL) 174 H (75-99) mg/dL AST (14-36) U/L Alkaline Phosphatase (38-126) U/L Total Protein (6.3-8.2) g/dL Albumin (3.5-5.0) g/dL Assessment and Plan Assessment: Impression: Acute hypoxic respiratory failure secondary to acute pulmonary edema and diastolic congestive heart failure with valvular heart disease and severe aortic stenosis. 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 History of esophageal stricture. Benign essential hypertension. History of TIA. Suspect underlying interstitial lung disease based on chest x-ray findings. New-onset atrial fibrillation with RVR, being addressed by cardiology on the case. Recommendation: Continue present meds as listed Continue Lasix 40 mg IV push every 12 hours. Advanced diet as tolerated. Continue bronchodilators. We'll continue to follow. Time with Patient: Less than 30
[2020-04-10] MEDS: SERAX PO PRN (15:07)
--- NOTE | 2020-04-10 16:30 | XR ---
EXAMINATION TYPE: XR chest 1V portable DATE OF EXAM: 04/10/2020 COMPARISON: Chest radiograph 04/09/2020 HISTORY: Shortness of breath TECHNIQUE: Single portable supine view of the chest is obtained. FINDINGS: Redemonstrated cardiomegaly. There is decreased pulmonary vascular congestion and pulmonar y edema. Small bilateral pleural effusions. Supine technique limits evaluation for pneumothorax. Soft tissues overlie the lung apices. IMPRESSION: 1. Improved aeration of the lungs with decreased pulmonary vascular congestion and pulmonary edema. 2. Small bilateral pleural effusions.
--- NOTE | 2020-04-10 16:38 | P.PN ---
Subjective This is Maria Elena Barbosa PA-C dictating a progress note on this patient The patient was interviewed and examined by me as well as by Dr. Blanco Case discussed with Dr. Blanco and he agrees with the plan of care HPI/interval history Patient is an 89-year-old female with a history significant for valvular heart disease, CAD, PAF, hypertension who presented for evaluation of anemia. She underwent a colonoscopy and was found to have a colonic mass. She underwent a colectomy. She subsequently developed respiratory failure requiring intubation. She has been successfully extubated but remains in the ICU. Patient seen and examined resting in the ICU. Currently in sinus rhythm with PACs. Complaining of abdominal pain. Denies any chest pain or shortness of breath. EXAMINATION Temperature 90.9F, pulse in the 70s, respirations 22, blood pressure 127/80, oxygen saturation 96% Patient seen and examined sitting up in bed, in no acute distress Heart is irregular, systolic murmur audible Breath sounds equal bilaterally No lower extremity edema REVIEW OF LABS, ECG WBC 11.4, hemoglobin 8.9, platelets 337, potassium 4.7, BUN 37, creatinine 0.98 Echocardiogram shows moderate concentric LVH, EF 50-55%, moderate to severe , moderate to severe MR, moderate to severe TR IMPRESSION / ASSESSMENT: #1 Acute hypoxic respiratory failure requiring intubation, was successfully extubated #2 valvular heart disease, moderate to severe , moderate to severe MR, moderate to severe TR #3 cecal mass status post colectomy #4 CAD status post stenting #5 atrial fibrillation, currently in sinus rhythm, not on anticoagulation due to bleeding history #6 hypertension #7 chronic diastolic heart failure, EF 50-55% #8 anemia PLAN: From a cardiology standpoint continue the current regimen Resume oral medications when she is able to swallow We will sign off at this time and follow the patient on an as-needed basis Objective - Vital Signs Vital signs: Vital Signs Temp 99 F 04/10/20 08:00 Pulse 70 04/10/20 11:13 Resp 22 04/10/20 10:00 BP 127/80 04/10/20 10:00 Pulse Ox 96 04/10/20 10:00 Intake & Output 04/09/20 04/10/20 04/10/20 18:59 06:59 18:59 Intake Total 0141 937 5081.833 Output Total 1310 1605 330 Balance 564 -1022 808.833 Weight 47.718 kg 47.718 kg Intake: IV 574 533 123 Dextrose 5%-0.9% NaCl 1, 240 20 000 ml @ 20 mls/hr IV . Q24H [facility] Rx#:[id number] Fat Emulsion 20% 250 ml 84 273 63 In Empty Bag 1 bag @ 21 mls/hr IV Q24H [facility] Rx#: [id number] Mvi, Adult No.4 with Vit 250 K 10 ml Trace (Conc-1Ml/ Dose) 1 ml In Amino Acid 4.25%-D10w+Lytes*E* 1,000 ml @ 50 mls/hr IV . [id number] [facility] Rx#:[id number] Sodium Chloride 0.9% 500 240 60 ml 500 ml @ 20 mls/hr IV .Q24H [facility] Rx#:[id number] Intake, IV Titration 1100 965.833 Amount Mvi, Adult No.4 with Vit 1000 965.833 K 10 ml Trace (Conc-1Ml/ Dose) 1 ml In Amino Acid 4.25%-D10w+Lytes*E* 1,000 ml @ 50 mls/hr IV . [id number] [facility] Rx#:[id number] Potassium Chloride 20 meq 100 In Water For Injection 1 100ml.bag @ 50 mls/hr IVPB Q2H [facility] Rx#: [id number] Oral 200 50 50 Output: Urine 1310 1605 330 Other: Voiding Method Indwelling Catheter Indwelling Catheter # Bowel Movements 1 ABP, PAP, CO, CI - Last Documented Arterial Blood Pressure 137/45 - Labs CBC & Chem 7: 04/10/20 04:00 04/10/20 11:25 Labs: Abnormal Lab Results - Last 24 Hours (Table) 04/09/20 04/09/20 04/10/20 Range/Units 16:54 19:52 00:56 WBC (3.8-10.6) k/uL Hgb (11.4-16.0) gm/dL Hct (34.0-46.0) % MCV (80.0-100.0) fL MCH (25.0-35.0) pg MCHC (31.0-37.0) g/dL RDW (11.5-15.5) % Neutrophils # (1.3-7.7) k/uL Sodium (137-145) mmol/L Carbon Dioxide (22-30) mmol/L BUN (7-17) mg/dL Glucose (74-99) mg/dL POC Glucose (mg/dL) 226 H 156 H 128 H (75-99) mg/dL AST (14-36) U/L Alkaline Phosphatase (38-126) U/L Total Protein (6.3-8.2) g/dL Albumin (3.5-5.0) g/dL 04/10/20 04/10/20 04/10/20 Range/Units 04:00 04:00 06:43 WBC 11.4 H (3.8-10.6) k/uL Hgb 8.9 L (11.4-16.0) gm/dL Hct 29.9 L (34.0-46.0) % MCV 78.8 L (80.0-100.0) fL MCH 23.4 L (25.0-35.0) pg MCHC 29.7 L (31.0-37.0) g/dL RDW 22.1 H (11.5-15.5) % Neutrophils # 8.5 H (1.3-7.7) k/uL Sodium 135 L (137-145) mmol/L Carbon Dioxide 32 H (22-30) mmol/L BUN 37 H (7-17) mg/dL Glucose 180 H (74-99) mg/dL POC Glucose (mg/dL) 209 H (75-99) mg/dL AST 39 H (14-36) U/L Alkaline Phosphatase 133 H (38-126) U/L Total Protein 6.0 L (6.3-8.2) g/dL Albumin 2.7 L (3.5-5.0) g/dL 04/10/20 Range/Units 11:27 WBC (3.8-10.6) k/uL Hgb (11.4-16.0) gm/dL Hct (34.0-46.0) % MCV (80.0-100.0) fL MCH (25.0-35.0) pg MCHC (31.0-37.0) g/dL RDW (11.5-15.5) % Neutrophils # (1.3-7.7) k/uL Sodium (137-145) mmol/L Carbon Dioxide (22-30) mmol/L BUN (7-17) mg/dL Glucose (74-99) mg/dL POC Glucose (mg/dL) 174 H (75-99) mg/dL AST (14-36) U/L Alkaline Phosphatase (38-126) U/L Total Protein (6.3-8.2) g/dL Albumin (3.5-5.0) g/dL
[2020-04-10 16:53] LABS: Glucose,Whole Blood 166 mg/dL (75-99)
--- NOTE | 2020-04-10 17:00 | P.PN ---
Progress Note - Text Progress Note Date: 04/10/20 The patient's improving. She denies any significant abdominal pain. She is not short of breath. Her latest chest x-ray shows some evidence of atelectasis and a small right pleural effusion. On exam vitals are stable. Abdomen soft. Incision is clean dry and intact. Status post right clubbing. Patient will have her diet advanced as tolerated. She'll see receive supportive care.
--- NOTE | 2020-04-10 17:15 | P.PN ---
Subjective Progress Note Date: 04/10/20 Sonal Ulloa is an 89-year-old female patient who presented to the emergency department today for evaluation of low hemoglobin. Patient is currently a resident at [facility] the [facility]. She had labs performed yesterday and hemoglobin was 6.1. she was sent to [facility] emergency room for evaluation , she received 1 unit of red blood cell transfusion in the emergency room and she started developing shortness of breath repeat hemoglobin was 9.1 patient has a known history of iron deficiency anemia . She was admitted to medical floor gastroenterology consultation and hematology consultation were requested for evaluation of chronic anemia . 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 Patient is otherwise stable there is no fever or chills no headache or dizziness no chest pain no shortness of breath no cough no nausea or vomiting no abdominal pain no diarrhea and no urinary symptoms. On 03/31/2020 patient was seen and examined on the medical floor, there is no fever or chills no headache or dizziness no chest pain no shortness of breath no cough no nausea or vomiting no dominant pain nor diarrhea no burning with urination no frequency or urgency no hematuria, hemoglobin today is 7.6 white blood count 8.0 potassium 3. . On 04/01/2020 patient was seen and examined on the medical floor she is alert and oriented 3 in no apparent distress she is very hard of hearing, she denies any pain or discomfort at this time there is no chest pain or shortness of breath no cough no nausea or vomiting no abdominal pain no diarrhea no blood in the stools no burning with urination no frequency or urgency and no hematuria On 04/02/2020 patient was seen and examined on the medical floor she is feeling well there is no fever or chills no headache or dizziness no chest pain no shortness of breath no cough no nausea or vomiting no abdominal pain no diarrhea no burning with urination no frequency or urgency no hematuria she is scheduled for surgery tomorrow 04/03/2020 patient was seen and examined on the medical floor she is alert and oriented 3 in no apparent distress there is no fever or chills no headache or dizziness no chest pain no shortness of breath no cough no nausea or vomiting no abdominal pain no diarrhea no burning with urination no frequency or urgency no hematuria patient is going for surgery today. 04/04/2020 patient was seen and examined on the medical floor she is alert, con fused, in no apparent distress there is no fever or chills no headache or dizziness no chest pain no shortness of breath no cough no nausea or vomiting no abdominal pain no diarrhea no burning with urination no frequency or urgency no hematuria patient is post op day #1 On 04/05/2020 Patient was seen and examined in the ICU, events from last night noted, patient developed worsening shortness of breath and tachypnea, [facility] was called and patient was transferred to ICU she was intubated and started on mechanical ventilation, at this time patient is intubated sedated maintained on mechanical ventilation, maintained on levophed for pressure support On 04/06/2020, the patient is intubated and maintained on a mechanical ventilator. The blood gases from this morning showed a pH of 7.47 with a pCO2 of 40 and pO2 115. white cell count is at 11 with a hemoglobin of 8.7. the patient went into atrial fibrillation with rapid ventricular response and the patient was started on a amiodarone drip for rate control. Cardiology and critical care following. On 04/07/2020 patient was seen and examined in the ICU she is intubated sedated maintained on mechanical ventilation, ABGs this morning pH 7.33 pCO2 49 pO2 125 white blood count 10.1 hemoglobin 8.3 platelet count 244 BUN 27 creatinine 1.32 plan for today is to try to wean her off ventilation and extubate her if she is doing well, yesterday she had an episode of atrial fibrillation with rapid ventricular response she was seen by cardiology and she had amiodarone drip, patient is off amiodarone drip at this time. I had a prolonged discussion over the phone with patient's daughter Anai, all questions were answered. On 04/08/2020 patient was seen and examined in the ICU she is extubated she is maintained on oxygen via nasal cannula, and tolerating well, she is sitting up in a chair, she is very hard of hearing and and able to answer questions, nurse stated that she failed swallow evaluation, she will be maintained on TPN until Friday when speech therapy is available, there is no fever or chills no headache or dizziness no chest pain no shortness of breath no cough no nausea or vomiting no abdominal pain no diarrhea. On 04/09/2020 patient was seen and examined in the ICU, she is alert responsive in no apparent distress, there is no fever or chills no headache or dizziness no chest pain no shortness of breath no cough no nausea or vomiting she has some abdominal pain no burning with urination no frequency or urgency and no hematuria, patient is maintained on oxygen via nasal cannula and is tolerating well at this time On 04/10/2020 patient was seen and examined in the ICU she is very hard of hearing, she is sitting up in a chair and maintained on oxygen at 3 L via nasal cannula and tolerating well, there is no fever or chills no headache or dizziness no chest pain no shortness of breath at rest no cough, no nausea or vomiting no abdominal pain and no urinary symptoms, review of system is very limited due to patient hearing issues. Objective - Vital Signs Vital signs: Vital Signs Temp 98.8 F 04/10/20 12:00 Pulse 75 04/10/20 16:11 Resp 21 04/10/20 15:00 BP 118/59 04/10/20 15:00 Pulse Ox 93 L 04/10/20 15:00 Intake & Output 04/09/20 04/10/20 04/10/20 18:59 06:59 18:59 Intake Total 6091 896 2719.833 Output Total 1310 1605 1080 Balance 564 -1022 758.833 Weight 47.718 kg 47.718 kg Intake: IV 574 533 223 Dextrose 5%-0.9% NaCl 1, 240 20 000 ml @ 20 mls/hr IV . Q24H [facility] Rx#:[id number] Fat Emulsion 20% 250 ml 84 273 63 In Empty Bag 1 bag @ 21 mls/hr IV Q24H [facility] Rx#: [id number] Mvi, Adult No.4 with Vit 250 K 10 ml Trace (Conc-1Ml/ Dose) 1 ml In Amino Acid 4.25%-D10w+Lytes*E* 1,000 ml @ 50 mls/hr IV . [id number] [facility] Rx#:[id number] Sodium Chloride 0.9% 500 240 160 ml 500 ml @ 20 mls/hr IV .Q24H [facility] Rx#:[id number] Intake, IV Titration 1100 1065.833 Amount Mvi, Adult No.4 with Vit 1000 965.833 K 10 ml Trace (Conc-1Ml/ Dose) 1 ml In Amino Acid 4.25%-D10w+Lytes*E* 1,000 ml @ 50 mls/hr IV . [id number] [facility] Rx#:[id number] Potassium Chloride 20 meq 100 In Water For Injection 1 100ml.bag @ 50 mls/hr IVPB Q2H [facility] Rx#: [id number] Sodium Ferric Gluconat- 100 Sucrose 125 mg In Sodium Chloride 0.9% 100 ml @ 100 mls/hr IVPB DAILY [facility] Rx#:[id number] Oral 200 50 550 Output: Urine 1310 1605 1080 Other: Voiding Method Indwelling Catheter Indwelling Catheter Indwelling Catheter # Bowel Movements 1 ABP, PAP, CO, CI - Last Documented Arterial Blood Pressure 137/45 - Exam In general patient alert responsive in no apparent distress HEENT head normocephalic and atraumatic Neck is supple no JVD no goiter no lymphadenopathy Chest exam reveals a few scattered crackles no wheezing Cardiac exam reveals regular heart sounds no gallops no murmurs Abdomen is soft nontender no organomegaly with normal bowel sounds Extremity exam reveals no edema no cyanosis or clubbing Neurological examination reveals no gross focal deficit - Labs CBC & Chem 7: 04/10/20 04:00 04/10/20 11:25 Labs: Abnormal Lab Results - Last 24 Hours (Table) 04/09/20 04/10/20 04/10/20 Range/Units 19:52 00:56 04:00 WBC (3.8-10.6) k/uL Hgb (11.4-16.0) gm/dL Hct (34.0-46.0) % MCV (80.0-100.0) fL MCH (25.0-35.0) pg MCHC (31.0-37.0) g/dL RDW (11.5-15.5) % Neutrophils # (1.3-7.7) k/uL Sodium 135 L (137-145) mmol/L Carbon Dioxide 32 H (22-30) mmol/L BUN 37 H (7-17) mg/dL Glucose 180 H (74-99) mg/dL POC Glucose (mg/dL) 156 H 128 H (75-99) mg/dL AST 39 H (14-36) U/L Alkaline Phosphatase 133 H (38-126) U/L Total Protein 6.0 L (6.3-8.2) g/dL Albumin 2.7 L (3.5-5.0) g/dL 04/10/20 04/10/20 04/10/20 Range/Units 04:00 06:43 11:27 WBC 11.4 H (3.8-10.6) k/uL Hgb 8.9 L (11.4-16.0) gm/dL Hct 29.9 L (34.0-46.0) % MCV 78.8 L (80.0-100.0) fL MCH 23.4 L (25.0-35.0) pg MCHC 29.7 L (31.0-37.0) g/dL RDW 22.1 H (11.5-15.5) % Neutrophils # 8.5 H (1.3-7.7) k/uL Sodium (137-145) mmol/L Carbon Dioxide (22-30) mmol/L BUN (7-17) mg/dL Glucose (74-99) mg/dL POC Glucose (mg/dL) 209 H 174 H (75-99) mg/dL AST (14-36) U/L Alkaline Phosphatase (38-126) U/L Total Protein (6.3-8.2) g/dL Albumin (3.5-5.0) g/dL 04/10/20 Range/Units 16:52 WBC (3.8-10.6) k/uL Hgb (11.4-16.0) gm/dL Hct (34.0-46.0) % MCV (80.0-100.0) fL MCH (25.0-35.0) pg MCHC (31.0-37.0) g/dL RDW (11.5-15.5) % Neutrophils # (1.3-7.7) k/uL Sodium (137-145) mmol/L Carbon Dioxide (22-30) mmol/L BUN (7-17) mg/dL Glucose (74-99) mg/dL POC Glucose (mg/dL) 166 H (75-99) mg/dL AST (14-36) U/L Alkaline Phosphatase (38-126) U/L Total Protein (6.3-8.2) g/dL Albumin (3.5-5.0) g/dL Assessment and Plan Plan: 1. Acute respiratory failure, likely related to pulmonary edema requiring transfer to ICU, intubation and mechanical ventilation, currently patient is extubated and tolerating well she is receiving IV Lasix and receiving oxygen via nasal cannula 2. CKD stage 3 Will consult nephrology for possible outpatient follow-up for Procrit injections 3. fluid overload with shortness of breath after 1 unit red blood cell trans fusion 4. Underlying history of hypertension 5. Underlying history of hyperlipidemia 6. Underlying history of COPD 7. Underlying history of insulin-dependent diabetes mellitus 8. surgery partial colectomy for colon mass, postoperative day #3 9. Atrial fibrillation with rapid ventricular response patient was started on amiodarone drip, currently off amiodarone Continue with current management, prognosis is guarded due to advanced age and multiple medical problems will follow closely
[2020-04-10 20:41] LABS: Glucose,Whole Blood 88 mg/dL (75-99)
[2020-04-10] MEDS: SODIUM CHLORIDE 0.9% 500 ML 500 ML IV SCH (20:42)
[2020-04-10] MEDS: NOREPINEPHRINE 8 MG in SODIUM CHLORIDE 0.9% 250 ML IV SCH (21:48)
[2020-04-11] MEDS: HYDROmorphone 1 MG/ML 1 ML SYRINGE IVP PRN ×3 (00:43→21:27)
[2020-04-11 01:59] LABS: Glucose,Whole Blood 156 mg/dL (75-99)
[2020-04-11] MEDS: INSULIN ASPART (NovoLOG) 100 UNIT/ML VIAL SQ SCH ×5 (02:02→21:25)
[2020-04-11] MEDS ORDERED: MVI, ADULT NO.4 WITH VIT K 10 ML, TRACE (CONC-1ML/DOSE) 1 ML, POTASSIUM PHOSPHATE 15 MM... IV SCH ×4 (03:00)
[2020-04-11 04:49] LABS: Anisocytosis Moderate; Basophils # (A) 0.1 k/uL (0-0.2); Basophils % (A) 1 %; Eosinophils # (A) 0.6 k/uL (0-0.7); Eosinophils % (A) 6 %; HCT 30.2 % (34.0-46.0); HGB 9.1 gm/dL (11.4-16.0); Hypochromasia Marked; Lymphocytes # (A) 1.2 k/uL (1.0-4.8); Lymphocytes % (A) 12 %; MCV 80.1 fL (80.0-100.0); Mean Platelet Volume 8.1; Microcytosis Slight; Monocytes # (A) 0.6 k/uL (0-1.0); Monocytes % (A) 6 %; Neutrophils # (A) 7.6 k/uL (1.3-7.7); Neutrophils % (A) 74 %; Platelet Count 384 k/uL (150-450); RBC 3.77 m/uL (3.80-5.40); RDW 21.7 % (11.5-15.5); WBC 10.3 k/uL (3.8-10.6)
[2020-04-11 04:58] LABS: Albumin 2.7 g/dL (3.5-5.0); Calcium 8.3 mg/dL (8.4-10.2); Magnesium 2.4 mg/dL (1.6-2.3); Phosphorus 4.3 mg/dL (2.5-4.5); Potassium 4.3 mmol/L (3.5-5.1); Total Bilirubin 0.5 mg/dL (0.2-1.3); Total Protein 5.9 g/dL (6.3-8.2)
[2020-04-11] MEDS: SODIUM FERRIC GLUCONAT-SUCROSE 125 MG in SODIUM CHLORIDE 0.9% 100 ML IVPB SCH (08:24)
[2020-04-11] MEDS: METOPROLOL TARTRATE 50 MG TAB PO SCH ×2 (08:54→21:24)
[2020-04-11] MEDS: FUROSEMIDE 10 MG/ML 4 ML VIAL IV SCH ×2 (08:54→21:24)
[2020-04-11] MEDS: amLODIPine 5 MG TAB PO SCH ×2 (08:54→21:24)
[2020-04-11] MEDS: HEPARIN SODIUM,PORCINE 5,000 UNIT/ML 1 ML VIAL SQ SCH ×2 (08:54→17:19)
[2020-04-11] MEDS: PANTOPRAZOLE 40 MG/10 ML VIAL IVP SCH (08:55)
--- NOTE | 2020-04-11 08:56 | XR ---
EXAMINATION TYPE: XR chest 1V portable DATE OF EXAM: 04/11/2020 COMPARISON: Chest radiograph 04/10/2020 HISTORY: Shortness of breath TECHNIQUE: Single frontal portable view of the chest is obtained. FINDINGS: Cardiomegaly and mediastinal silhouette unchanged. Pulmonary vascular congestion and pulmo nary edema not significantly changed given differences in technique. Small bilateral pleural effusion s unchanged. No evidence of pneumothorax. Soft tissues of the neck overlie the right medial lung apex . IMPRESSION: Unchanged radiographic appearance of the chest versus 04/10/2020.
[2020-04-11] MEDS: IPRATROPIUM 0.5 MG/2.5 ML NEBU INHALATION SCH ×4 (09:05→19:43)
--- NOTE | 2020-04-11 11:56 | P.PN ---
Progress Note - Text Progress Note Date: 04/11/20 The patient's resting comfortably in her bed. She does not appear to have any shortness of breath. On exam vital signs are stable. Abdomen soft. Incision site is clean dry and intact. Status post right colectomy. Patient will continue receive supportive care. She'll be discharged home in stable from a medical service
[2020-04-11 12:07] LABS: Glucose,Whole Blood 160 mg/dL (75-99)
--- NOTE | 2020-04-11 13:16 | P.PN ---
Subjective Progress Note Date: 04/11/20 Principal diagnosis: Acute hypoxic respiratory failure secondary to acute pulmonary edema, acute diastolic congestive heart failure, and underlying interstitial lung disease. 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 Presently on O2 at 3 L/m, IV fluid is at 50 mL per hour. And she is on TPN but she is able to take clear liquids. Patient required BiPAP over the weekend. She is on Lasix at 40 mg IV push every 12 hours. Chest x-ray again showed interstitial lung disease and atelectasis. Small right-sided pleural effusion. Labs including CBC and basic metabolic profile are basically unremarkable. Patient was reevaluated today on 04/11/20, remains in the ICU, she is on 2 L nasal cannula, in no distress, still on PPN at 50 MLS per hour, and she is also on some oral feedings. Overall the patient is doing much better, denies any cough no wheezing no shortness of breath. Chest x-ray is showing improvement, and there is a small right-sided pleural effusion. Labs including CBC and renal profile are basically normal metabolic profile is normal. Objective - Vital Signs Vital signs: Vital Signs Temp 98.1 F 04/11/20 12:00 Pulse 69 04/11/20 12:00 Resp 15 04/11/20 12:00 BP 126/57 04/11/20 12:00 Pulse Ox 98 04/11/20 12:00 Intake & Output 04/10/20 04/11/20 04/11/20 18:59 06:59 18:59 Intake Total 1961.833 492 521 Output Total 1255 1293 405 Balance 706.833 -801 116 Weight 47.718 kg 48.8 kg Intake: IV 346 492 121 Fat Emulsion 20% 250 ml 126 252 21 In Empty Bag 1 bag @ 21 mls/hr IV Q24H [facility] Rx#: [id number] Sodium Chloride 0.9% 500 220 240 100 ml 500 ml @ 20 mls/hr IV .Q24H [facility] Rx#:[id number] Intake, IV Titration 1065.833 Amount Mvi, Adult No.4 with Vit 965.833 K 10 ml Trace (Conc-1Ml/ Dose) 1 ml In Amino Acid 4.25%-D10w+Lytes*E* 1,000 ml @ 50 mls/hr IV . [id number] [facility] Rx#:[id number] Sodium Ferric Gluconat- 100 Sucrose 125 mg In Sodium Chloride 0.9% 100 ml @ 100 mls/hr IVPB DAILY [facility] Rx#:[id number] Oral 550 400 Output: Urine 1255 1293 405 Other: Voiding Method Indwelling Catheter Indwelling Catheter Indwelling Catheter # Bowel Movements 1 ABP, PAP, CO, CI - Last Documented Arterial Blood Pressure 137/45 - Exam Physical Exam: Revealed 89-year-old female in no distress. Head: Atraumatic, normocephalic. HEENT:[Neck is supple.] [No neck masses.] [No thyromegaly.] [No JVD.] Chest: [Symmetrical chest expansion, crackles at the bases. No rhonchi and no wheezes..] Cardiac Exam: [Normal S1 and S2, no S3 gallop, no murmur.] Abdomen: [Soft, nontender, no megaly, no rebound, no guarding, normal bowel sounds.] Extremities: [No clubbing, no edema, no cyanosis.] Neurological Exam: [No focal neurologic deficit.] Alert and oriented 3. Psychiatric: Normal mood affect and normal mental status examination. Patient is hard of hearing. Skin: No rashes. - Labs CBC & Chem 7: 04/11/20 04:23 04/11/20 04:23 Labs: Abnormal Lab Results - Last 24 Hours (Table) 04/10/20 04/11/20 04/11/20 Range/Units 16:52 01:58 04:23 RBC (3.80-5.40) m/uL Hgb (11.4-16.0) gm/dL Hct (34.0-46.0) % MCH (25.0-35.0) pg MCHC (31.0-37.0) g/dL RDW (11.5-15.5) % Sodium 134 L (137-145) mmol/L BUN 41 H (7-17) mg/dL Creatinine 1.12 H (0.52-1.04) mg/dL Glucose 112 H (74-99) mg/dL POC Glucose (mg/dL) 166 H 156 H (75-99) mg/dL Calcium 8.3 L (8.4-10.2) mg/dL Magnesium 2.4 H (1.6-2.3) mg/dL AST 45 H (14-36) U/L Alkaline Phosphatase 143 H (38-126) U/L Total Protein 5.9 L (6.3-8.2) g/dL Albumin 2.7 L (3.5-5.0) g/dL 04/11/20 04/11/20 Range/Units 04:23 12:05 RBC 3.77 L (3.80-5.40) m/uL Hgb 9.1 L (11.4-16.0) gm/dL Hct 30.2 L (34.0-46.0) % MCH 24.0 L (25.0-35.0) pg MCHC 30.0 L (31.0-37.0) g/dL RDW 21.7 H (11.5-15.5) % Sodium (137-145) mmol/L BUN (7-17) mg/dL Creatinine (0.52-1.04) mg/dL Glucose (74-99) mg/dL POC Glucose (mg/dL) 160 H (75-99) mg/dL Calcium (8.4-10.2) mg/dL Magnesium (1.6-2.3) mg/dL AST (14-36) U/L Alkaline Phosphatase (38-126) U/L Total Protein (6.3-8.2) g/dL Albumin (3.5-5.0) g/dL Assessment and Plan Assessment: Impression: Acute hypoxic respiratory failure secondary to acute pulmonary edema and diastolic congestive heart failure with valvular heart disease and severe aortic stenosis. Severe valvular heart disease with severe aortic stenosis and moderate severe mitral regurgitation Moderate severe pulmonary hypertension Cecal mass and she is status post colectomy postoperative day #8 Coronary artery disease and previous coronary stent insertion. History of esophageal stricture. Benign essential hypertension. History of TIA. Suspect underlying interstitial lung disease based on chest x-ray findings. New-onset atrial fibrillation with RVR, resolved, patient is presently in sinus rhythm. Recommendation: Continue present meds as listed Continue Lasix 40 mg IV push every 12 hours. Advance diet as tolerated. Continue bronchodilators. Transfer patient to a monitor bed on selective today. No need for ICU at this point We'll continue to follow. Time with Patient: Less than 30
[2020-04-11 17:07] LABS: Glucose,Whole Blood 154 mg/dL (75-99)
--- NOTE | 2020-04-11 18:05 | P.PN ---
Subjective Progress Note Date: 04/11/20 Sonal Ulloa is an 89-year-old female patient who presented to the emergency department today for evaluation of low hemoglobin. Patient is currently a resident at [facility] the [facility]. She had labs performed yesterday and hemoglobin was 6.1. she was sent to [facility] emergency room for evaluation , she received 1 unit of red blood cell transfusion in the emergency room and she started developing shortness of breath repeat hemoglobin was 9.1 patient has a known history of iron deficiency anemia . She was admitted to medical floor gastroenterology consultation and hematology consultation were requested for evaluation of chronic anemia . 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 Patient is otherwise stable there is no fever or chills no headache or dizziness no chest pain no shortness of breath no cough no nausea or vomiting no abdominal pain no diarrhea and no urinary symptoms. On 03/31/2020 patient was seen and examined on the medical floor, there is no fever or chills no headache or dizziness no chest pain no shortness of breath no cough no nausea or vomiting no dominant pain nor diarrhea no burning with urination no frequency or urgency no hematuria, hemoglobin today is 7.6 white blood count 8.0 potassium 3. . On 04/01/2020 patient was seen and examined on the medical floor she is alert and oriented 3 in no apparent distress she is very hard of hearing, she denies any pain or discomfort at this time there is no chest pain or shortness of breath no cough no nausea or vomiting no abdominal pain no diarrhea no blood in the stools no burning with urination no frequency or urgency and no hematuria On 04/02/2020 patient was seen and examined on the medical floor she is feeling well there is no fever or chills no headache or dizziness no chest pain no shortness of breath no cough no nausea or vomiting no abdominal pain no diarrhea no burning with urination no frequency or urgency no hematuria she is scheduled for surgery tomorrow 04/03/2020 patient was seen and examined on the medical floor she is alert and oriented 3 in no apparent distress there is no fever or chills no headache or dizziness no chest pain no shortness of breath no cough no nausea or vomiting no abdominal pain no diarrhea no burning with urination no frequency or urgency no hematuria patient is going for surgery today. 04/04/2020 patient was seen and examined on the medical floor she is alert, con fused, in no apparent distress there is no fever or chills no headache or dizziness no chest pain no shortness of breath no cough no nausea or vomiting no abdominal pain no diarrhea no burning with urination no frequency or urgency no hematuria patient is post op day #1 On 04/05/2020 Patient was seen and examined in the ICU, events from last night noted, patient developed worsening shortness of breath and tachypnea, [facility] was called and patient was transferred to ICU she was intubated and started on mechanical ventilation, at this time patient is intubated sedated maintained on mechanical ventilation, maintained on levophed for pressure support On 04/06/2020, the patient is intubated and maintained on a mechanical ventilator. The blood gases from this morning showed a pH of 7.47 with a pCO2 of 40 and pO2 115. white cell count is at 11 with a hemoglobin of 8.7. the patient went into atrial fibrillation with rapid ventricular response and the patient was started on a amiodarone drip for rate control. Cardiology and critical care following. On 04/07/2020 patient was seen and examined in the ICU she is intubated sedated maintained on mechanical ventilation, ABGs this morning pH 7.33 pCO2 49 pO2 125 white blood count 10.1 hemoglobin 8.3 platelet count 244 BUN 27 creatinine 1.32 plan for today is to try to wean her off ventilation and extubate her if she is doing well, yesterday she had an episode of atrial fibrillation with rapid ventricular response she was seen by cardiology and she had amiodarone drip, patient is off amiodarone drip at this time. I had a prolonged discussion over the phone with patient's daughter Anai, all questions were answered. On 04/08/2020 patient was seen and examined in the ICU she is extubated she is maintained on oxygen via nasal cannula, and tolerating well, she is sitting up in a chair, she is very hard of hearing and and able to answer questions, nurse stated that she failed swallow evaluation, she will be maintained on TPN until Friday when speech therapy is available, there is no fever or chills no headache or dizziness no chest pain no shortness of breath no cough no nausea or vomiting no abdominal pain no diarrhea. On 04/09/2020 patient was seen and examined in the ICU, she is alert responsive in no apparent distress, there is no fever or chills no headache or dizziness no chest pain no shortness of breath no cough no nausea or vomiting she has some abdominal pain no burning with urination no frequency or urgency and no hematuria, patient is maintained on oxygen via nasal cannula and is tolerating well at this time On 04/10/2020 patient was seen and examined in the ICU she is very hard of hearing, she is sitting up in a chair and maintained on oxygen at 3 L via nasal cannula and tolerating well, there is no fever or chills no headache or dizziness no chest pain no shortness of breath at rest no cough, no nausea or vomiting no abdominal pain and no urinary symptoms, review of system is very limited due to patient hearing issues. On 04/11/2020 patient was seen and examined in the ICU she is very hard of hearing which limits the review of system without she is alert and oriented in no apparent distress there is no fever or chills she denies any chest pain or shortness of breath she is maintained on oxygen via nasal cannula she is complaining of some abdominal pain however she is tolerating diet well although she is eating less than 50% of her meals there is blood in the stool or in the Objective - Vital Signs Vital signs: Vital Signs Temp 98.3 F 04/11/20 17:00 Pulse 68 04/11/20 17:00 Resp 22 04/11/20 17:00 BP 133/62 04/11/20 17:00 Pulse Ox 97 04/11/20 17:00 Intake & Output 04/10/20 04/11/20 04/11/20 18:59 06:59 18:59 Intake Total 1961.833 492 621 Output Total 1255 1293 655 Balance 706.833 -801 -34 Weight 47.718 kg 48.8 kg Intake: IV 346 492 221 Fat Emulsion 20% 250 ml 126 252 21 In Empty Bag 1 bag @ 21 mls/hr IV Q24H [facility] Rx#: [id number] Sodium Chloride 0.9% 500 220 240 200 ml 500 ml @ 20 mls/hr IV .Q24H [facility] Rx#:[id number] Intake, IV Titration 1065.833 Amount Mvi, Adult No.4 with Vit 965.833 K 10 ml Trace (Conc-1Ml/ Dose) 1 ml In Amino Acid 4.25%-D10w+Lytes*E* 1,000 ml @ 50 mls/hr IV . [id number] [facility] Rx#:[id number] Sodium Ferric Gluconat- 100 Sucrose 125 mg In Sodium Chloride 0.9% 100 ml @ 100 mls/hr IVPB DAILY [facility] Rx#:[id number] Oral 550 400 Output: Urine 1255 1293 655 Other: Voiding Method Indwelling Catheter Indwelling Catheter Indwelling Catheter # Bowel Movements 1 ABP, PAP, CO, CI - Last Documented Arterial Blood Pressure 137/45 - Exam In general patient alert responsive in no apparent distress HEENT head normocephalic and atraumatic Neck is supple no JVD no goiter no lymphadenopathy Chest exam reveals a few scattered crackles no wheezing Cardiac exam reveals regular heart sounds no gallops no murmurs Abdomen is soft nontender no organomegaly with normal bowel sounds Extremity exam reveals no edema no cyanosis or clubbing Neurological examination reveals no gross focal deficit - Labs CBC & Chem 7: 04/11/20 04:23 04/11/20 04:23 Labs: Abnormal Lab Results - Last 24 Hours (Table) 04/11/20 04/11/20 04/11/20 Range/Units 01:58 04:23 04:23 RBC 3.77 L (3.80-5.40) m/uL Hgb 9.1 L (11.4-16.0) gm/dL Hct 30.2 L (34.0-46.0) % MCH 24.0 L (25.0-35.0) pg MCHC 30.0 L (31.0-37.0) g/dL RDW 21.7 H (11.5-15.5) % Sodium 134 L (137-145) mmol/L BUN 41 H (7-17) mg/dL Creatinine 1.12 H (0.52-1.04) mg/dL Glucose 112 H (74-99) mg/dL POC Glucose (mg/dL) 156 H (75-99) mg/dL Calcium 8.3 L (8.4-10.2) mg/dL Magnesium 2.4 H (1.6-2.3) mg/dL AST 45 H (14-36) U/L Alkaline Phosphatase 143 H (38-126) U/L Total Protein 5.9 L (6.3-8.2) g/dL Albumin 2.7 L (3.5-5.0) g/dL 04/11/20 04/11/20 Range/Units 12:05 17:06 RBC (3.80-5.40) m/uL Hgb (11.4-16.0) gm/dL Hct (34.0-46.0) % MCH (25.0-35.0) pg MCHC (31.0-37.0) g/dL RDW (11.5-15.5) % Sodium (137-145) mmol/L BUN (7-17) mg/dL Creatinine (0.52-1.04) mg/dL Glucose (74-99) mg/dL POC Glucose (mg/dL) 160 H 154 H (75-99) mg/dL Calcium (8.4-10.2) mg/dL Magnesium (1.6-2.3) mg/dL AST (14-36) U/L Alkaline Phosphatase (38-126) U/L Total Protein (6.3-8.2) g/dL Albumin (3.5-5.0) g/dL Assessment and Plan Plan: 1. Acute respiratory failure, likely related to pulmonary edema requiring transfer to ICU, intubation and mechanical ventilation, currently patient is extubated and tolerating well she is receiving IV Lasix and receiving oxygen via nasal cannula 2. CKD stage 3 Will consult nephrology for possible outpatient follow-up for Procrit injections 3. fluid overload with shortness of breath after 1 unit red blood cell transfusion 4. Underlying history of hypertension 5. Underlying history of hyperlipidemia 6. Underlying history of COPD 7. Underlying history of insulin-dependent diabetes mellitus 8. surgery partial colectomy for colon mass, postoperative day #3 9. Atrial fibrillation with rapid ventricular response patient was started on amiodarone drip, currently off amiodarone Continue with current management, prognosis is guarded due to advanced age and multiple medical problems will follow closely
[2020-04-11 20:19] LABS: Glucose,Whole Blood 134 mg/dL (75-99)
[2020-04-11] MEDS: SODIUM CHLORIDE 0.9% 500 ML 500 ML IV SCH (21:12)
[2020-04-11] MEDS: NOREPINEPHRINE 8 MG in SODIUM CHLORIDE 0.9% 250 ML IV SCH (21:25)
[2020-04-12] MEDS: HEPARIN SODIUM,PORCINE 5,000 UNIT/ML 1 ML VIAL SQ SCH ×3 (00:49→16:54)
[2020-04-12] MEDS: INSULIN ASPART (NovoLOG) 100 UNIT/ML VIAL SQ SCH ×5 (03:24→20:17)
[2020-04-12] MEDS: HYDROmorphone 1 MG/ML 1 ML SYRINGE IVP PRN (03:40)
[2020-04-12 04:58] LABS: Calcium 8.3 mg/dL (8.4-10.2); Magnesium 2.2 mg/dL (1.6-2.3); Phosphorus 5.5 mg/dL (2.5-4.5); Potassium 4.5 mmol/L (3.5-5.1)
[2020-04-12 06:30] LABS: Glucose,Whole Blood 142 mg/dL (75-99)
[2020-04-12] MEDS: SODIUM FERRIC GLUCONAT-SUCROSE 125 MG in SODIUM CHLORIDE 0.9% 100 ML IVPB SCH (08:33)
[2020-04-12] MEDS: METOPROLOL TARTRATE 50 MG TAB PO SCH ×2 (08:34→20:14)
[2020-04-12] MEDS: amLODIPine 5 MG TAB PO SCH ×2 (08:34→20:14)
[2020-04-12] MEDS: FUROSEMIDE 10 MG/ML 4 ML VIAL IV SCH (08:34)
[2020-04-12] MEDS: PANTOPRAZOLE 40 MG/10 ML VIAL IVP SCH (08:34)
[2020-04-12] MEDS: IPRATROPIUM 0.5 MG/2.5 ML NEBU INHALATION SCH ×4 (09:14→21:18)
[2020-04-12 12:10] LABS: Glucose,Whole Blood 156 mg/dL (75-99)
--- NOTE | 2020-04-12 13:20 | P.PN ---
Subjective Progress Note Date: 04/12/20 Principal diagnosis: Acute hypoxic respiratory failure secondary to acute pulmonary edema, acute diastolic congestive heart failure, and underlying interstitial lung disease. 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 Presently on O2 at 3 L/m, IV fluid is at 50 mL per hour. And she is on TPN but she is able to take clear liquids. Patient required BiPAP over the weekend. She is on Lasix at 40 mg IV push every 12 hours. Chest x-ray again showed interstitial lung disease and atelectasis. Small right-sided pleural effusion. Labs including CBC and basic metabolic profile are basically unremarkable. Patient was reevaluated today on 04/11/20, remains in the ICU, she is on 2 L nasal cannula, in no distress, still on PPN at 50 MLS per hour, and she is also on some oral feedings. Overall the patient is doing much better, denies any cough no wheezing no shortness of breath. Chest x-ray is showing improvement, and there is a small right-sided pleural effusion. Labs including CBC and renal profile are basically normal metabolic profile is normal. Patient was reevaluated today on 03/23/20, remains in the ICU as an overflow, patient is doing much better. Patient is off TPN, she is eating on her own, she is on 2 L nasal cannula with O2 saturation 93%. Her mental status is actually improving. My plan is to transfer the [facility] today. Remains on diuretics, however I cut that down to 20 mg of Lasix IV push every 12 hours. Basic metabolic profile today is normal except for BUN is up to 52 creatinine is up to 1.19, hence diuretics have been cut down. Objective - Vital Signs Vital signs: Vital Signs Temp 98.5 F 04/12/20 08:00 Pulse 75 04/12/20 12:43 Resp 20 04/12/20 10:00 BP 120/101 04/12/20 10:00 Pulse Ox 96 04/12/20 10:00 Intake & Output 04/11/20 04/12/20 04/12/20 18:59 06:59 18:59 Intake Total 681 220 140 Output Total 905 525 270 Balance -224 -305 -130 Weight 46.1 kg Intake: IV 281 220 140 Fat Emulsion 20% 250 ml 21 In Empty Bag 1 bag @ 21 mls/hr IV Q24H [facility] Rx#: [id number] Sodium Chloride 0.9% 500 260 220 40 ml 500 ml @ 20 mls/hr IV .Q24H [facility] Rx#:[id number] Sodium Ferric Gluconat- 100 Sucrose 125 mg In Sodium Chloride 0.9% 100 ml @ 100 mls/hr IVPB DAILY [facility] Rx#:[id number] Oral 400 Output: Urine 905 525 270 Other: Voiding Method Indwelling Catheter Indwelling Catheter Indwelling Catheter ABP, PAP, CO, CI - Last Documented Arterial Blood Pressure 137/45 - Exam Physical Exam: Revealed 89-year-old female in no distress. On 2 L nasal cannula Head: Atraumatic, normocephalic. HEENT:[Neck is supple.] [No neck masses.] [No thyromegaly.] [No JVD.] Chest: [Symmetrical chest expansion, crackles at the bases. No rhonchi and no wheezes..] Cardiac Exam: [Normal S1 and S2, no S3 gallop, no murmur.] Abdomen: [Soft, nontender, no megaly, no rebound, no guarding, normal bowel sounds.] Extremities: [No clubbing, no edema, no cyanosis.] Neurological Exam: [No focal neurologic deficit.] Alert and oriented 3. Psychiatric: Normal mood affect and normal mental status examination. Patient is hard of hearing. Skin: No rashes. - Labs CBC & Chem 7: 04/11/20 04:23 04/12/20 04:19 Labs: Abnormal Lab Results - Last 24 Hours (Table) 04/11/20 04/11/20 04/12/20 Range/Units 17:06 20:17 04:19 Sodium 135 L (137-145) mmol/L BUN 52 H (7-17) mg/dL Creatinine 1.19 H (0.52-1.04) mg/dL Glucose 139 H (74-99) mg/dL POC Glucose (mg/dL) 154 H 134 H (75-99) mg/dL Calcium 8.3 L (8.4-10.2) mg/dL Phosphorus 5.5 H (2.5-4.5) mg/dL 04/12/20 04/12/20 Range/Units 06:29 12:08 Sodium (137-145) mmol/L BUN (7-17) mg/dL Creatinine (0.52-1.04) mg/dL Glucose (74-99) mg/dL POC Glucose (mg/dL) 142 H 156 H (75-99) mg/dL Calcium (8.4-10.2) mg/dL Phosphorus (2.5-4.5) mg/dL Assessment and Plan Assessment: Impression: Acute hypoxic respiratory failure secondary to acute pulmonary edema and diastolic congestive heart failure with valvular heart disease and severe aortic stenosis. Severe valvular heart disease with severe aortic stenosis and moderate severe mitral regurgitation Moderate severe pulmonary hypertension Cecal mass and she is status post colectomy postoperative day #9 Coronary artery disease and previous coronary stent insertion. History of esophageal stricture. Benign essential hypertension. History of TIA. Suspect underlying interstitial lung disease based on chest x-ray findings. New-onset atrial fibrillation with RVR, resolved, patient is presently in sinus rhythm. Recommendation: Continue present meds as listed Continue Lasix however the dose will be cut down to 20 mg twice a day. Continue to advance diet and discontinue TPN. Continue bronchodilators. Transfer patient to a monitor bed on selective today. Patient is presently overflow in the ICU We'll continue to follow. Time with Patient: Less than 30
--- NOTE | 2020-04-12 14:18 | P.PN ---
Progress Note - Text Progress Note Date: 04/12/20 The patient has no real complaints today. On exam vital signs are stable. Abdomen soft. The incision was noted to have some drainage. The dressing was removed and appeared to be a small amount of purulent fluid coming from just above the umbilicus. Several heladio removed any small infected seroma was expressed. Patient's wound measured approximately 2 cm in length. Sterile dressing applied. Status post right colectomy with small superficial wound infection. Patient will continue receive local wound care. Overall her condition is improving.
[2020-04-12] MEDS: FUROSEMIDE 10 MG/ML 2 ML VIAL IV SCH ×2 (15:40→20:15)
[2020-04-12 16:50] LABS: Glucose,Whole Blood 179 mg/dL (75-99)
[2020-04-12] MEDS: HYDROcodone/APAP 5-325MG 1 EACH TAB PO PRN (16:53)
--- NOTE | 2020-04-12 17:18 | P.PN ---
Subjective Progress Note Date: 04/12/20 Sonal Ulloa is an 89-year-old female patient who presented to the emergency department today for evaluation of low hemoglobin. Patient is currently a resident at [facility] on the [facility]. She had labs performed yesterday and hemoglobin was 6.1. she was sent to [facility] emergency room for evaluation , she received 1 unit of red blood cell transfusion in the emergency room and she started developing shortness of breath repeat hemoglobin was 9.1 patient has a known history of iron deficiency anemia . She was admitted to medical floor gastroenterology consultation and hematology consultation were requested for evaluation of chronic anemia . 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 Patient is otherwise stable there is no fever or chills no headache or dizziness no chest pain no shortness of breath no cough no nausea or vomiting no abdominal pain no diarrhea and no urinary symptoms. On 03/31/2020 patient was seen and examined on the medical floor, there is no fever or chills no headache or dizziness no chest pain no shortness of breath no cough no nausea or vomiting no dominant pain nor diarrhea no burning with urination no frequency or urgency no hematuria, hemoglobin today is 7.6 white blood count 8.0 potassium 3. . On 04/01/2020 patient was seen and examined on the medical floor she is alert and oriented 3 in no apparent distress she is very hard of hearing, she denies any pain or discomfort at this time there is no chest pain or shortness of breath no cough no nausea or vomiting no abdominal pain no diarrhea no blood in the stools no burning with urination no frequency or urgency and no hematuria On 04/02/2020 patient was seen and examined on the medical floor she is feeling well there is no fever or chills no headache or dizziness no chest pain no shortness of breath no cough no nausea or vomiting no abdominal pain no diarrhea no burning with urination no frequency or urgency no hematuria she is scheduled for surgery tomorrow 04/03/2020 patient was seen and examined on the medical floor she is alert and oriented 3 in no apparent distress there is no fever or chills no headache or dizziness no chest pain no shortness of breath no cough no nausea or vomiting no abdominal pain no diarrhea no burning with urination no frequency or urgency no hematuria patient is going for surgery today. 04/04/2020 patient was seen and examined on the medical floor she is alert, con fused, in no apparent distress there is no fever or chills no headache or dizziness no chest pain no shortness of breath no cough no nausea or vomiting no abdominal pain no diarrhea no burning with urination no frequency or urgency no hematuria patient is post op day #1 On 04/05/2020 Patient was seen and examined in the ICU, events from last night noted, patient developed worsening shortness of breath and tachypnea, [facility] was called and patient was transferred to ICU she was intubated and started on mechanical ventilation, at this time patient is intubated sedated maintained on mechanical ventilation, maintained on levophed for pressure support On 04/06/2020, the patient is intubated and maintained on a mechanical ventilator. The blood gases from this morning showed a pH of 7.47 with a pCO2 of 40 and pO2 115. white cell count is at 11 with a hemoglobin of 8.7. the patient went into atrial fibrillation with rapid ventricular response and the patient was started on a amiodarone drip for rate control. Cardiology and critical care following. On 04/07/2020 patient was seen and examined in the ICU she is intubated sedated maintained on mechanical ventilation, ABGs this morning pH 7.33 pCO2 49 pO2 125 white blood count 10.1 hemoglobin 8.3 platelet count 244 BUN 27 creatinine 1.32 plan for today is to try to wean her off ventilation and extubate her if she is doing well, yesterday she had an episode of atrial fibrillation with rapid ventricular response she was seen by cardiology and she had amiodarone drip, patient is off amiodarone drip at this time. I had a prolonged discussion over the phone with patient's daughter Anai, all questions were answered. On 04/08/2020 patient was seen and examined in the ICU she is extubated she is maintained on oxygen via nasal cannula, and tolerating well, she is sitting up in a chair, she is very hard of hearing and and able to answer questions, nurse stated that she failed swallow evaluation, she will be maintained on TPN until Friday when speech therapy is available, there is no fever or chills no headache or dizziness no chest pain no shortness of breath no cough no nausea or vomiting no abdominal pain no diarrhea. On 04/09/2020 patient was seen and examined in the ICU, she is alert responsive in no apparent distress, there is no fever or chills no headache or dizziness no chest pain no shortness of breath no cough no nausea or vomiting she has some abdominal pain no burning with urination no frequency or urgency and no hematuria, patient is maintained on oxygen via nasal cannula and is tolerating well at this time On 04/10/2020 patient was seen and examined in the ICU she is very hard of hearing, she is sitting up in a chair and maintained on oxygen at 3 L via nasal cannula and tolerating well, there is no fever or chills no headache or dizziness no chest pain no shortness of breath at rest no cough, no nausea or vomiting no abdominal pain and no urinary symptoms, review of system is very limited due to patient hearing issues. On 04/11/2020 patient was seen and examined in the ICU she is very hard of hearing which limits the review of system without she is alert and oriented in no apparent distress there is no fever or chills she denies any chest pain or shortness of breath she is maintained on oxygen via nasal cannula she is complaining of some abdominal pain however she is tolerating diet well although she is eating less than 50% of her meals there is blood in the stool. On 04/12/2020 patient was seen and examined in the ICU she is alert slightly confused in no apparent distress she is very hard of hearing she is eating her meal was 1 on 1 help there is no fever or chills no headache or dizziness no chest pain no shortness of breath no cough no nausea or vomiting no abdominal pain no diarrhea no burning with urination no frequency or urgency and no hematuria Objective - Vital Signs Vital signs: Vital Signs Temp 98.4 F 04/12/20 12:00 Pulse 85 04/12/20 16:58 Resp 22 04/12/20 15:00 BP 123/64 04/12/20 15:00 Pulse Ox 96 07/22/20 15:00 Intake & Output 04/11/20 04/12/20 04/12/20 18:59 06:59 18:59 Intake Total 681 220 220 Output Total 905 525 460 Balance -224 -305 -240 Weight 46.1 kg 46.1 kg Intake: IV 281 220 220 Fat Emulsion 20% 250 ml 21 In Empty Bag 1 bag @ 21 mls/hr IV Q24H [facility] Rx#: [id number] Sodium Chloride 0.9% 500 260 220 120 ml 500 ml @ 20 mls/hr IV .Q24H [facility] Rx#:[id number] Sodium Ferric Gluconat- 100 Sucrose 125 mg In Sodium Chloride 0.9% 100 ml @ 100 mls/hr IVPB DAILY [facility] Rx#:[id number] Oral 400 Output: Urine 905 525 460 Other: Voiding Method Indwelling Catheter Indwelling Catheter Indwelling Catheter ABP, PAP, CO, CI - Last Documented Arterial Blood Pressure 137/45 - Exam In general patient alert responsive in no apparent distress HEENT head normocephalic and atraumatic Neck is supple no JVD no goiter no lymphadenopathy Chest exam reveals a few scattered crackles no wheezing Cardiac exam reveals regular heart sounds no gallops no murmurs Abdomen is soft nontender no organomegaly with normal bowel sounds Extremity exam reveals no edema no cyanosis or clubbing Neurological examination reveals no gross focal deficit - Labs CBC & Chem 7: 04/11/20 04:23 04/12/20 04:19 Labs: Abnormal Lab Results - Last 24 Hours (Table) 04/11/20 04/12/20 04/12/20 Range/Units 20:17 04:19 06:29 Sodium 135 L (137-145) mmol/L BUN 52 H (7-17) mg/dL Creatinine 1.19 H (0.52-1.04) mg/dL Glucose 139 H (74-99) mg/dL POC Glucose (mg/dL) 134 H 142 H (75-99) mg/dL Calcium 8.3 L (8.4-10.2) mg/dL Phosphorus 5.5 H (2.5-4.5) mg/dL 04/12/20 04/12/20 Range/Units 12:08 16:48 Sodium (137-145) mmol/L BUN (7-17) mg/dL Creatinine (0.52-1.04) mg/dL Glucose (74-99) mg/dL POC Glucose (mg/dL) 156 H 179 H (75-99) mg/dL Calcium (8.4-10.2) mg/dL Phosphorus (2.5-4.5) mg/dL Assessment and Plan Plan: 1. Acute respiratory failure, likely related to pulmonary edema requiring transfer to ICU, intubation and mechanical ventilation, currently patient is extubated and tolerating well she is receiving IV Lasix and receiving oxygen via nasal cannula 2. CKD stage 3 Will consult nephrology for possible outpatient follow-up for Procrit injections 3. fluid overload with shortness of breath after 1 unit red blood cell transfusion 4. Underlying history of hypertension 5. Underlying history of hyperlipidemia 6. Underlying history of COPD 7. Underlying history of insulin-dependent diabetes mellitus 8. surgery partial colectomy for colon mass, postoperative day #3 9. Atrial fibrillation with rapid ventricular response patient was started on amiodarone drip, currently off amiodarone Continue with current management, prognosis is guarded due to advanced age and multiple medical problems will follow closely
[2020-04-12] MEDS: SODIUM CHLORIDE 0.9% 500 ML 500 ML IV SCH (20:14)
[2020-04-12 20:17] LABS: Glucose,Whole Blood 101 mg/dL (75-99)
[2020-04-12 20:24] LABS: Glucose,Whole Blood 119 mg/dL (75-99)
[2020-04-13] MEDS: HEPARIN SODIUM,PORCINE 5,000 UNIT/ML 1 ML VIAL SQ SCH ×3 (03:59→16:42)
[2020-04-13] MEDS: INSULIN ASPART (NovoLOG) 100 UNIT/ML VIAL SQ SCH ×5 (04:00→20:59)
[2020-04-13 05:11] LABS: Anisocytosis Moderate; Basophils # (A) 0.1 k/uL (0-0.2); Basophils % (A) 0 %; Eosinophils # (A) 0.5 k/uL (0-0.7); Eosinophils % (A) 4 %; HCT 31.6 % (34.0-46.0); HGB 9.5 gm/dL (11.4-16.0); Hypochromasia Marked; Lymphocytes # (A) 1.2 k/uL (1.0-4.8); Lymphocytes % (A) 9 %; MCH 24.5 pg (25.0-35.0); MCHC 30.1 g/dL (31.0-37.0); MCV 81.3 fL (80.0-100.0); Mean Platelet Volume 7.9; Microcytosis Slight; Monocytes # (A) 0.7 k/uL (0-1.0); Monocytes % (A) 6 %; Neutrophils # (A) 10.3 k/uL (1.3-7.7); Neutrophils % (A) 80 %; Platelet Count 452 k/uL (150-450); RBC 3.89 m/uL (3.80-5.40); RDW 22.5 % (11.5-15.5); WBC 12.9 k/uL (3.8-10.6)
[2020-04-13 05:20] LABS: Albumin 2.9 g/dL (3.5-5.0); Calcium 8.6 mg/dL (8.4-10.2); Magnesium 2.4 mg/dL (1.6-2.3); Phosphorus 4.4 mg/dL (2.5-4.5); Potassium 3.8 mmol/L (3.5-5.1); Total Bilirubin 0.7 mg/dL (0.2-1.3); Total Protein 6.3 g/dL (6.3-8.2)
[2020-04-13 06:49] LABS: Glucose,Whole Blood 122 mg/dL (75-99)
[2020-04-13] MEDS: IPRATROPIUM 0.5 MG/2.5 ML NEBU INHALATION SCH ×4 (08:17→19:14)
[2020-04-13] MEDS: METOPROLOL TARTRATE 50 MG TAB PO SCH ×2 (08:59→20:58)
[2020-04-13] MEDS: amLODIPine 5 MG TAB PO SCH ×2 (08:59→20:58)
[2020-04-13] MEDS: SODIUM FERRIC GLUCONAT-SUCROSE 125 MG in SODIUM CHLORIDE 0.9% 100 ML IVPB SCH (08:59)
[2020-04-13] MEDS: FUROSEMIDE 10 MG/ML 2 ML VIAL IV SCH ×2 (09:00→20:58)
[2020-04-13] MEDS: PANTOPRAZOLE 40 MG/10 ML VIAL IVP SCH (09:41)
[2020-04-13 11:53] LABS: Glucose,Whole Blood 200 mg/dL (75-99)
[2020-04-13] MEDS ORDERED: ONDANSETRON 4 MG/2 ML VIAL IVP PRN (12:43)
--- NOTE | 2020-04-13 13:03 | P.PN ---
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 She is currently resting comfortably in bed. Awake and alert in no acute distress. Denies any worsening shortness of breath cough or congestion. No noted bleeding. White count 8.6. Hemoglobin 7.9. Sodium 136. Potassium 3.8. Creatinine 1.46. She is status post 1 unit of packed red blood cells this admission. Plan is for EGD/colonoscopy today. On 03/31/2020 patient seen in follow-up on selective care unit, she is awake and alert, in no acute distress, patient is extremely hard of hearing which makes communicating with her very difficult. Her breathing is comfortable, she is currently on 2 L of oxygen with a pulse ox of 99 200%, lung sounds are clear. No rhonchi, no wheezing. Yesterday patient could not complete her EGD related to stricture, and procedure was aborted, colonoscopy revealed a cecal mass, stat us post biopsies. The mass was suspicious for neoplasm. CT of abdomen and pelvis has been completed showing soft tissue at the level of the cecum, and nonspecific pulmonary nodularity, with 8 mm nodular density in the region of the lingula as well as the 1.5 cm nodular density in the region of the right middle lobe which could be postinflammatory in nature. Dedicated computed tomography scan of the chest was advised. On 04/03/2020 patient seen in follow-up on selective care unit, she is sitting up in the chair, in no acute distress, she is currently on 2 L of oxygen pulse ox of 99%, hemodynamically stable, she is afebrile, her abdomen is soft, although somewhat distended. 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 His labs have been reviewed, with blood cell count is 9.2, hemoglobin is 9.7. Patient is status post transfusion with 2 units of packed red blood cells this admission. Denies any chest pain, she does admit to being somewhat short of breath, lung sounds reveal faint wheezes in the upper lobes. He is on breathing treatments, Symbicort, she is on maintenance dose of oral Lasix. Patient has not had any new chest x-rays since admission On 04/04/2020 patient seen in follow-up on selective care unit, she status post right colectomy, this is postoperative day 1. Patient is complaining of a lot of abdominal incisional pain. She is on epidural infusion with bupivacaine and Dilaudid currently running at 5 ML per hour. IV D5 half-normal saline with 20 of potassium at 125 ML per hour. Abdomen is soft, she denies any nausea or vomiting. She denies having much of an appetite. She refused her morning tray. Bowel sounds are active 4, but she has not passed any bowel movement or passed gas, mid abdominal incision is clean dry and intact, covered with surgical dressing with minimal amount of sanguinous drainage which is old. Today's labs have been reviewed, showing white blood cell count of 11.4, hemoglobin is 9.2, serum sodium is 135, the rest of electrolytes were within normal limits, BUN is 24 creatinine is 0.91. Patient had some mild confusion last night, she is answering questions appropriately, however patient is very hard of hearing, she is answering basic questions appropriately, does not seem to be confused this morning. Vital signs are stable. She is on 2 L of oxygen a pulse ox of 99%. Breathing is comfortable, low-grade fever this morning, with a temp of 99.3, and was afebrile. On 04/13/2020 patient seen in follow-up in the intensive care unit, she has been an overflow for selective care unit, she has been stable in the last 24 hours, she is awake and alert, oriented 3, denies any specific complaints, she is currently on 2 L of oxygen and the pulse ox of 97%, denies any shortness of breath, she is in sinus mechanism with a controlled rate. She's had no fever or chills, she is tolerating regular diet. Patient is status post right colectomy with small superficial wound infection, she is receiving local wound care. Surgery is following, several heladio have been removed and small infected seroma was expressed. Today's labs have been reviewed, showing white blood cell count of 12.9, hemoglobin of 9.5, electrolytes were within normal limits, BUN of 47, creatinine is 1.19, alk phos was 194, albumin is 2.9. Last chest x-ray was done on 04/11/2020 showing pulmonary vascular congestion, small bilateral pleural effusions. However her oxygenation has remained stable, patient remains on IV Lasix at 20 mg twice daily. She is maintaining negative fluid balance. Objective - Vital Signs Vital signs: Vital Signs Temp 97.9 F 04/13/20 08:00 Pulse 74 04/13/20 12:04 Resp 36 H 04/13/20 12:00 BP 133/66 04/13/20 12:00 Pulse Ox 91 L 04/13/20 12:00 Intake & Output 04/12/20 04/13/20 04/13/20 18:59 06:59 18:59 Intake Total 300 160 430 Output Total 620 390 130 Balance -320 -230 300 Weight 46.1 kg 47.5 kg Intake: IV 300 160 180 Sodium Chloride 0.9% 500 200 160 80 ml 500 ml @ 20 mls/hr IV .Q24H [facility] Rx#:[id number] Sodium Ferric Gluconat- 100 100 Sucrose 125 mg In Sodium Chloride 0.9% 100 ml @ 100 mls/hr IVPB DAILY [facility] Rx#:[id number] Oral 250 Output: Urine 620 390 130 Other: Voiding Method Indwelling Catheter Indwelling Catheter Indwelling Catheter # Voids 1 ABP, PAP, CO, CI - Last Documented Arterial Blood Pressure 137/45 - Exam GENERAL EXAM: Lethargic but easily arousable to verbal stimulation very pleasant, 89-year-old white female on 2 L of oxygen with pulse ox of 91-98%, comfortable in no apparent distress. Patient is extremely hard of hearing. HEAD: Normocephalic/atraumatic. EYES: Normal reaction of pupils, equal size. Conjunctiva pink, sclera white. NOSE: Clear with pink turbinates. THROAT: No erythema or exudates. NECK: No masses, no JVD, no thyroid enlargement, no adenopathy. CHEST: No chest wall deformity. Symmetrical expansion. LUNGS: Equal air entry with no crackles, wheeze, rhonchi or dullness. CVS: Regular rate and rhythm, normal S1 and S2, no gallops, systolic murmur loudest at the right sternal border, second intercostal space consistent with aortic stenosis, no rubs ABDOMEN: Soft, nontender. No hepatosplenomegaly, normal bowel sounds, no g uarding or rigidity. EXTREMITIES: No clubbing, no cyanosis, 2+ pulses and upper and lower extremiti es. Mid abdominal incision, covered with a surgical dressing. Bowel sounds are present, 4. MUSCULOSKELETAL: Muscle strength and tone normal. SPINE: No scoliosis or deformity SKIN: No rashes CENTRAL NERVOUS SYSTEM: Awake and alert, oriented 3, No focal deficits, tone is normal in all 4 extremities. - Labs CBC & Chem 7: 04/13/20 04:40 04/13/20 04:40 Labs: Abnormal Lab Results - Last 24 Hours (Table) 04/12/20 04/12/20 04/12/20 Range/Units 16:48 20:16 20:23 WBC (3.8-10.6) k/uL Hgb (11.4-16.0) gm/dL Hct (34.0-46.0) % MCH (25.0-35.0) pg MCHC (31.0-37.0) g/dL RDW (11.5-15.5) % Plt Count (150-450) k/uL Neutrophils # (1.3-7.7) k/uL BUN (7-17) mg/dL Creatinine (0.52-1.04) mg/dL Glucose (74-99) mg/dL POC Glucose (mg/dL) 179 H 101 H 119 H (75-99) mg/dL Magnesium (1.6-2.3) mg/dL Alkaline Phosphatase (38-126) U/L Albumin (3.5-5.0) g/dL 04/13/20 04/13/20 04/13/20 Range/Units 04:40 04:40 06:47 WBC 12.9 H (3.8-10.6) k/uL Hgb 9.5 L (11.4-16.0) gm/dL Hct 31.6 L (34.0-46.0) % MCH 24.5 L (25.0-35.0) pg MCHC 30.1 L (31.0-37.0) g/dL RDW 22.5 H (11.5-15.5) % Plt Count 452 H (150-450) k/uL Neutrophils # 10.3 H (1.3-7.7) k/uL BUN 47 H (7-17) mg/dL Creatinine 1.19 H (0.52-1.04) mg/dL Glucose 117 H (74-99) mg/dL POC Glucose (mg/dL) 122 H (75-99) mg/dL Magnesium 2.4 H (1.6-2.3) mg/dL Alkaline Phosphatase 194 H (38-126) U/L Albumin 2.9 L (3.5-5.0) g/dL 04/13/20 Range/Units 11:51 WBC (3.8-10.6) k/uL Hgb (11.4-16.0) gm/dL Hct (34.0-46.0) % MCH (25.0-35.0) pg MCHC (31.0-37.0) g/dL RDW (11.5-15.5) % Plt Count (150-450) k/uL Neutrophils # (1.3-7.7) k/uL BUN (7-17) mg/dL Creatinine (0.52-1.04) mg/dL Glucose (74-99) mg/dL POC Glucose (mg/dL) 200 H (75-99) mg/dL Magnesium (1.6-2.3) mg/dL Alkaline Phosphatase (38-126) U/L Albumin (3.5-5.0) g/dL Assessment and Plan Plan: Assessment: #1. Acute hypoxic respiratory failure secondary to acute pulmonary edema and diastolic congestive heart failure with valvular heart disease and severe aortic stenosis #2. Severe valvular heart disease with severe aortic stenosis and moderate severe mitral regurgitation #3. Moderately severe pulmonary hypertension #4. Cecal mass, status post colectomy, postoperative day #10, new diagnosis of early stage adenocarcinoma of the colon #5. Coronary artery disease with previous coronary artery PCI and stenting #6. History of esophageal stricture #7. Benign essential hypertension #8. History of TIA #9. Suspect underlying interstitial lung disease based on the chest x-ray findings #10. New-onset atrial fibrillation with RVR, resolved, and patient is currently in sinus rhythm #11. Hearing problems #13. Diabetes mellitus #14. Chronic anemia Plan: Continue IV diuretics, patient is maintaining negative fluid balance, we'll obtain follow-up chest x-ray in the morning, no acute events overnight, patient currently sinus mechanism with a controlled rate, she is tolerating oral intake. She denies any acute complaints. Follow-up labs in the morning, from pulmonary perspective patient can be transferred out of intensive care unit to medical surgical floor with remote telemetry. I performed a history & physical examination of the patient and discussed their management with my nurse practitioner, Josephine Winkler. I reviewed the nurse practitioner's note and agree with the documented findings and plan of care. Lung sounds are positive for clear diminished at bases. The findings and the impression was discussed with the patient. I attest to the documentation by the nurse practitioner. Time with Patient: Less than 30
--- NOTE | 2020-04-13 13:14 | P.CONS ---
History of Present Illness - Chief Complaint Medical debility - History of Present Illness I had the opportunity to see patient for inpatient rehab consultation with regard to medical debility. Patient admitted to [facility] March 28 as a transfer from [facility] with low hemoglobin. CT of abdomen demonstrated cecal mass. Seen for anemia by Dr. good. 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 Computed tomography scan demonstrated the cecal mass. Chest x-ray with congestion and infusions. Seen by cardiology who notes coronary artery disease and atrophy ablation. Seen by Dr. fabi Richardson and martin who did right colectomy. Patient did started therapies. PT reports minimal assistance for bed mobility and two-person assistance for gait 5 feet, hand- held. OT reports minimal assistance for upper dressing and max assist for lower dressing, bathing and toileting. 2 person minimal assistance for basic self- care transfers. Previous functional history as elicited from patient: 89-year-old right-handed white female who is lives in a first-floor apartment and [facility], alone. Describes cooking and laundry done for her. Independent with sponge bath and gait with [address] Thayer and/or Enrique. Review of Systems Review of systems: ENT: Long-standing hard of hearing. Eyes: Denies discharge or photophobia. Cardiac: Denies chest pain or palpitation. Pulmonary: Denies cough or shortness of breath. Breast: Denies discharge or lumps. Gastrointestinal: Perhaps a mild amount of abdominal discomfort. Genitourinary: Denies discharge or frequency. Musculoskeletal: Long-standing limitation Lesh shoulder. Neurologic: Generalized weakness. Endocrine: Denies shakes or sweats. Oncology: Denies cancers. Dermatologic: Denies rash, itching, pruritus. ALLERGY/immunology: Denies sneezes, rashes. Past Medical History Past Medical History: Atrial Fibrillation, Coronary Artery Disease (CAD), Chest Pain / Angina, Heart Failure, COPD, CVA/TIA, Diabetes Mellitus, GERD/Reflux, Hearing Disorder / Deafness, Hyperlipidemia, Hypertension, Myocardial Infarction (MD), Osteoarthritis (OA), Pneumonia, Renal Disease, Skin Disorder Additional Past Medical History / Comment(s): IDDM type II, frequent pneumonia, aspiration pneumonia with sepsis, renal insufficiency, recurrent UTIs, TIA x 3, difficulty swallowing-crushes meds and puts them in yogurt-past EGD/dilations, anemia, eczema, "lazy bowel" but pt states anymore she goes from diarrhea to constipation easily, generalized arthritis, chronic back pain, hiatal hernia Last Myocardial Infarction Date:: 1998, 09/21/17 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 MDRO Source:: VRE URINE Past Surgical History: Cholecystectomy, Heart Catheterization With Stent Additional Past Surgical History / Comment(s): cataracts w/lens implants, ectopic with one ovary/tube removed, heart caths :04/30/96 stent to rca, 03/18/2000 stent to mid rca, 07/22/17 stent to lad Past Anesthesia/Blood Transfusion Reactions: Previous Problems w/ Anesthesia Additional Past Anesthesia/Blood Transfusion Reaction / Comm: difficulty breathing after anesthesia Date of Last Stent Placement:: 06/2017 Past Psychological History: Depression Additional Psychological History / Comment(s): Pt resides in an apartment at [facility]. She ambulates with a walker. Her daughter is very helpful and is in an apt above her. Pt has chore person from [employer] [facility] [place]. She no longer drives, family takes her to [employer]. She goes up to her daughter's for supper and manages her own medication. Past Alcohol Use History: None Reported Additional Past Alcohol Use History / Comment(s): Patient has history of smoking 2 packs per day started smoking at age 16 Past Drug Use History: None Reported - Past Family History Father History Unknown: Yes Family Medical History: Myocardial Infarction (MD) Additional Family Medical History / Comment(s): Father had a MD at the age of 50 yrs. He lived to be 75yrs old. Mother History Unknown: Yes Family Medical History: Myocardial Infarction (MD) Additional Family Medical History / Comment(s): Mother of a MD at about age 80yrs. Medications and Allergies Home Medications Medication Instructions Recorded Confirmed Type Montelukast [Singulair] 10 mg PO HS@209905/17/17 03/27/20 History Fluticasone/Salmeterol [Advair 1 puff INHALATION RT-BID@0900,209905/18/17 03/27/20 History 250-50 Diskus] Metoprolol Tartrate [Lopressor] 100 mg PO BID@0900,209907/18/17 03/27/20 History Sennosides [Senna] 8.6 mg PO DAILY@0907/18/17 03/27/20 History Nitroglycerin Sl Tabs [Nitrostat] 0.4 mg SUBLINGUAL Q5M PRN #25 tab 07/23/17 03/27/20 Rx Acetaminophen [Tylenol] 1,000 mg PO Q4H PRN 05/14/18 03/27/20 History HYDROcodone/APAP 5-325MG [[place] 1 tab PO BID PRN #120 tab 10/06/19 03/27/20 Rx 5-325] Ferrous Sulfate [Feosol] 325 mg PO BID@0900,169911/27/19 03/27/20 History Atorvastatin [Lipitor] 40 mg PO HS@209903/27/20 03/27/20 History Furosemide [Lasix] 40 mg PO DAILY@0903/27/20 03/27/20 History Insulin Glargine,Hum.rec.anlog 8 unit SQ HS@209903/27/20 03/27/20 History [Lantus Solostar] Isosorbide Mononitrate ER [Imdur] 30 mg PO DAILY@89903/27/20 03/27/20 History Oxazepam [Serax] 15 mg PO HS 03/27/20 04/13/20 History Pantoprazole [Protonix] 40 mg PO BID@0900,209903/27/20 03/27/20 History Tiotropium [place] [Spiriva] 1 cap INHALATION RT-DAILY@169903/27/20 03/27/20 History bisacodyL [Dulcolax] 10 mg RECTAL Q72H PRN 03/27/20 03/27/20 History Allergies Allergy/AdvReac Type Severity Reaction Status Date / Time adhesive tape Allergy Rash/Hives Verified 03/27/20 22:05 amoxicillin trihydrate Allergy Unknown Verified 03/27/20 22:05 [From Augmentin] clindamycin HCl Allergy Unknown Verified 03/27/20 22:05 [From Cleocin] clindamycin palmitate HCl Allergy Unknown Verified 03/27/20 22:05 [From Cleocin] clindamycin phosphate Allergy Unknown Verified 03/27/20 22:05 [From Cleocin] codeine Allergy Unknown Verified 03/27/20 22:05 nitrofurantoin Allergy Unknown Verified 03/27/20 22:05 [From Macrobid] nitrofurantoin Allergy Unknown Verified 03/27/20 22:05 macrocrystalline [From Macrobid] Penicillins Allergy Unknown Verified 03/27/20 22:05 potassium clavulanate Allergy Unknown Verified 03/27/20 22:05 [From Augmentin] prednisone Allergy Unknown Verified 03/27/20 22:05 quinine Allergy Unknown Verified 03/27/20 22:05 Sulfa (Sulfonamide Allergy Unknown Verified 03/27/20 22:05 Antibiotics) sulfamethoxazole Allergy Unknown Verified 03/27/20 22:05 [From Bactrim] trimethoprim [From Bactrim] Allergy Unknown Verified 03/27/20 22:05 lorazepam [From Ativan] AdvReac Confusion Verified 03/27/20 22:05 Physical Exam Vitals: Vital Signs Temp Pulse Resp BP Pulse Ox 04/13/20 12:04 74 04/13/20 12:00 72 36 H 133/66 91 L 04/13/20 11:53 74 04/13/20 11:45 75 92 L 04/13/20 11:30 69 24 98 04/13/20 09:00 89 22 126/82 97 04/13/20 08:30 85 04/13/20 08:20 93 04/13/20 08:00 97.9 F 89 21 130/66 96 04/13/20 04:00 97.7 F 78 20 119/55 04/13/20 03:00 83 26 H 119/55 96 04/13/20 02:00 75 23 119/55 97 04/13/20 01:00 77 24 119/55 99 04/13/20 00:00 98.0 F 71 22 109/72 97 04/12/20 23:00 74 26 H 109/72 97 04/12/20 22:00 68 25 H 109/72 97 04/12/20 21:31 66 04/12/20 21:19 70 04/12/20 21:00 68 24 109/72 98 04/12/20 20:00 97.8 F 87 22 120/85 97 04/12/20 19:24 84 20 120/85 97 04/12/20 16:58 85 07/22/20 16:50 92 04/12/20 16:00 85 12 123/64 94 L 04/12/20 15:00 77 22 123/64 96 04/12/20 14:00 76 23 95 Intake and Output 04/12/20 04/13/20 04/13/20 22:59 06:59 14:59 Intake Total 160 80 430 Output Total 435 115 130 Balance -275 -35 300 Intake: IV 160 80 180 Sodium Chloride 0.9% 500 160 80 80 ml 500 ml @ 20 mls/hr IV .Q24H [facility] Rx#:[id number] Sodium Ferric Gluconat- 100 Sucrose 125 mg In Sodium Chloride 0.9% 100 ml @ 100 mls/hr IVPB DAILY [facility] Rx#:[id number] Oral 250 Output: Urine 435 115 130 Other: Voiding Method Indwelling Catheter Indwelling Catheter Indwelling Catheter # Voids 1 1 Weight 47.5 kg Skin: Atrophic, intact. General: Thin build and comfortable appearance. Head: Normocephalic, atraumatic. Eyes: Symmetric. Pupils equal round. Ears: Symmetric. Hard of hearing bilaterally. Mouth: Clear. Neck: Supple. Carotid without bruit. Cardiac: Regular rate and rhythm. Lungs: Clear anteriorly and posteriorly. Abdomen: Soft active nontender. Extremities: Normal tone. Neurological: Mental status: Alert, cooperative, pleasant. Cranial nerves: Symmetric facial tone and trapezius. Motor: Can actively moves all 4 limbs. Sensation: Intact throughout. DTRs: Symmetric and equal throughout. Mobility: Requires physical assist for transfer to bedside Carmita chair. Results CBC & Chem 7: 04/13/20 04:40 04/13/20 04:40 Labs: Abnormal Lab Results - Last 24 Hours (Table) 04/12/20 04/12/20 04/12/20 Range/Units 16:48 20:16 20:23 WBC (3.8-10.6) k/uL Hgb (11.4-16.0) gm/dL Hct (34.0-46.0) % MCH (25.0-35.0) pg MCHC (31.0-37.0) g/dL RDW (11.5-15.5) % Plt Count (150-450) k/uL Neutrophils # (1.3-7.7) k/uL BUN (7-17) mg/dL Creatinine (0.52-1.04) mg/dL Glucose (74-99) mg/dL POC Glucose (mg/dL) 179 H 101 H 119 H (75-99) mg/dL Magnesium (1.6-2.3) mg/dL Alkaline Phosphatase (38-126) U/L Albumin (3.5-5.0) g/dL 04/13/20 04/13/20 04/13/20 Range/Units 04:40 04:40 06:47 WBC 12.9 H (3.8-10.6) k/uL Hgb 9.5 L (11.4-16.0) gm/dL Hct 31.6 L (34.0-46.0) % MCH 24.5 L (25.0-35.0) pg MCHC 30.1 L (31.0-37.0) g/dL RDW 22.5 H (11.5-15.5) % Plt Count 452 H (150-450) k/uL Neutrophils # 10.3 H (1.3-7.7) k/uL BUN 47 H (7-17) mg/dL Creatinine 1.19 H (0.52-1.04) mg/dL Glucose 117 H (74-99) mg/dL POC Glucose (mg/dL) 122 H (75-99) mg/dL Magnesium 2.4 H (1.6-2.3) mg/dL Alkaline Phosphatase 194 H (38-126) U/L Albumin 2.9 L (3.5-5.0) g/dL 04/13/20 Range/Units 11:51 WBC (3.8-10.6) k/uL Hgb (11.4-16.0) gm/dL Hct (34.0-46.0) % MCH (25.0-35.0) pg MCHC (31.0-37.0) g/dL RDW (11.5-15.5) % Plt Count (150-450) k/uL Neutrophils # (1.3-7.7) k/uL BUN (7-17) mg/dL Creatinine (0.52-1.04) mg/dL Glucose (74-99) mg/dL POC Glucose (mg/dL) 200 H (75-99) mg/dL Magnesium (1.6-2.3) mg/dL Alkaline Phosphatase (38-126) U/L Albumin (3.5-5.0) g/dL Assessment and Plan Plan: Impression: 1. Medical debility. 2. Cecal mass. 3. Coronary disease with history of angina and MD. 4. Atrial fibrillation. 5. Anemia, acute on chronic 6. Hypertension. 7. Diabetes. 8. Osteoarthritis. 9. Deafness. Comments and plan: At this time PT and OT are ongoing. Safety concerns noted. Note patient however resides at [facility] and at this time would anticipate return to [facility].
[2020-04-13] MEDS: HYDROcodone/APAP 5-325MG 1 EACH TAB PO PRN ×2 (14:47→22:17)
[2020-04-13] MEDS: DARBEPOETIN ALFA 40 MCG/0.4 ML SYRINGE SQ SCH (14:49)
[2020-04-13 17:23] LABS: Glucose,Whole Blood 173 mg/dL (75-99)
[2020-04-13 20:52] LABS: Glucose,Whole Blood 174 mg/dL (75-99)
[2020-04-13] MEDS: SODIUM CHLORIDE 0.9% 500 ML 500 ML IV SCH (21:07)
[2020-04-13] MEDS: ALPRAZolam 0.25 MG TAB PO PRN (22:17)
[2020-04-14] MEDS: HEPARIN SODIUM,PORCINE 5,000 UNIT/ML 1 ML VIAL SQ SCH ×4 (00:59→21:35)
[2020-04-14 02:01] LABS: Glucose,Whole Blood 109 mg/dL (75-99)
[2020-04-14] MEDS: INSULIN ASPART (NovoLOG) 100 UNIT/ML VIAL SQ SCH ×5 (02:03→21:37)
[2020-04-14] MEDS: SENNOSIDES 8.6 MG TAB PO SCH (02:52)
[2020-04-14 06:58] LABS: Glucose,Whole Blood 95 mg/dL (75-99)
[2020-04-14 07:53] LABS: Albumin 2.7 g/dL (3.5-5.0); Anisocytosis Moderate; Calcium 8.4 mg/dL (8.4-10.2); HCT 30.7 % (34.0-46.0); HGB 9.2 gm/dL (11.4-16.0); Hypochromasia Marked; MCH 24.7 pg (25.0-35.0); MCHC 29.8 g/dL (31.0-37.0); MCV 82.9 fL (80.0-100.0); Magnesium 2.2 mg/dL (1.6-2.3); Mean Platelet Volume 7.9; Microcytosis Slight; Platelet Count 470 k/uL (150-450); Potassium 4.1 mmol/L (3.5-5.1); RDW 22.6 % (11.5-15.5); Total Bilirubin 0.5 mg/dL (0.2-1.3); Total Protein 6.1 g/dL (6.3-8.2); WBC 11.7 k/uL (3.8-10.6)
[2020-04-14] MEDS: SODIUM FERRIC GLUCONAT-SUCROSE 125 MG in SODIUM CHLORIDE 0.9% 100 ML IVPB SCH (08:47)
[2020-04-14] MEDS: PANTOPRAZOLE 40 MG/10 ML VIAL IVP SCH (08:48)
[2020-04-14] MEDS: FUROSEMIDE 10 MG/ML 2 ML VIAL IV SCH (08:48)
[2020-04-14] MEDS: METOPROLOL TARTRATE 50 MG TAB PO SCH ×2 (08:48→21:36)
[2020-04-14] MEDS: amLODIPine 5 MG TAB PO SCH ×2 (08:48→21:36)
[2020-04-14] MEDS: IPRATROPIUM 0.5 MG/2.5 ML NEBU INHALATION SCH ×4 (08:51→19:49)
[2020-04-14] MEDS: HYDROcodone/APAP 5-325MG 1 EACH TAB PO PRN ×2 (08:56→18:11)
[2020-04-14 09:04] LABS: Basophils # (M) 0.12 k/uL (0-0.2); Eosinophils # (M) 0.47 k/uL (0-0.7); Lymphocytes # (M) 1.87 k/uL (1.0-4.8); Mixed Population RBC Present; Monocytes # (M) 0.59 k/uL (0-1.0); Neutrophils # (M) 8.66 k/uL (1.3-7.7); Neutrophils % (M) 74 %; Nucleated Red Blood Cells 0 /100 WBC (0-0); Polychromasia Present; Total Cells Counted 100
[2020-04-14 11:15] LABS: Glucose,Whole Blood 242 mg/dL (75-99)
--- NOTE | 2020-04-14 12:11 | P.PN ---
Progress Note - Text Progress Note Date: 04/14/20 Patient resting comfortably bed. She denies any significant pain. On exam vital signs are stable. Abdomen soft. Wound is clean. Status post right E. Patient continue receive supportive care.
--- NOTE | 2020-04-14 12:58 | P.PN ---
Subjective Progress Note Date: 04/13/20 Sonal Ulloa is an 89-year-old female patient who presented to the emergency department today for evaluation of low hemoglobin. Patient is currently a resident at [facility] the [facility]. She had labs performed yesterday and hemoglobin was 6.1. she was sent to [facility] emergency room for evaluation , she received 1 unit of red blood cell transfusion in the emergency room and she started developing shortness of breath repeat hemoglobin was 9.1 patient has a known history of iron deficiency anemia . She was admitted to medical floor gastroenterology consultation and hematology consultation were requested for evaluation of chronic anemia . 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 Patient is otherwise stable there is no fever or chills no headache or dizziness no chest pain no shortness of breath no cough no nausea or vomiting no abdominal pain no diarrhea and no urinary symptoms. On 03/31/2020 patient was seen and examined on the medical floor, there is no fever or chills no headache or dizziness no chest pain no shortness of breath no cough no nausea or vomiting no dominant pain nor diarrhea no burning with urination no frequency or urgency no hematuria, hemoglobin today is 7.6 white blood count 8.0 potassium 3. . On 04/01/2020 patient was seen and examined on the medical floor she is alert and oriented 3 in no apparent distress she is very hard of hearing, she denies any pain or discomfort at this time there is no chest pain or shortness of breath no cough no nausea or vomiting no abdominal pain no diarrhea no blood in the stools no burning with urination no frequency or urgency and no hematuria On 04/02/2020 patient was seen and examined on the medical floor she is feeling well there is no fever or chills no headache or dizziness no chest pain no shortness of breath no cough no nausea or vomiting no abdominal pain no diarrhea no burning with urination no frequency or urgency no hematuria she is scheduled for surgery tomorrow 04/03/2020 patient was seen and examined on the medical floor she is alert and oriented 3 in no apparent distress there is no fever or chills no headache or dizziness no chest pain no shortness of breath no cough no nausea or vomiting no abdominal pain no diarrhea no burning with urination no frequency or urgency no hematuria patient is going for surgery today. 04/04/2020 patient was seen and examined on the medical floor she is alert, con fused, in no apparent distress there is no fever or chills no headache or dizziness no chest pain no shortness of breath no cough no nausea or vomiting no abdominal pain no diarrhea no burning with urination no frequency or urgency no hematuria patient is post op day #1 On 04/05/2020 Patient was seen and examined in the ICU, events from last night noted, patient developed worsening shortness of breath and tachypnea, [facility] STEFAN[facility] was called and patient was transferred to ICU she was intubated and started on mechanical ventilation, at this time patient is intubated sedated maintained on mechanical ventilation, maintained on levophed for pressure support On 04/06/2020, the patient is intubated and maintained on a mechanical ventilator. The blood gases from this morning showed a pH of 7.47 with a pCO2 of 40 and pO2 115. white cell count is at 11 with a hemoglobin of 8.7. the patient went into atrial fibrillation with rapid ventricular response and the patient was started on a amiodarone drip for rate control. Cardiology and critical care following. On 04/07/2020 patient was seen and examined in the ICU she is intubated sedated maintained on mechanical ventilation, ABGs this morning pH 7.33 pCO2 49 pO2 125 white blood count 10.1 hemoglobin 8.3 platelet count 244 BUN 27 creatinine 1.32 plan for today is to try to wean her off ventilation and extubate her if she is doing well, yesterday she had an episode of atrial fibrillation with rapid ventricular response she was seen by cardiology and she had amiodarone drip, patient is off amiodarone drip at this time. I had a prolonged discussion over the phone with patient's daughter Anai, all questions were answered. On 04/08/2020 patient was seen and examined in the ICU she is extubated she is maintained on oxygen via nasal cannula, and tolerating well, she is sitting up in a chair, she is very hard of hearing and and able to answer questions, nurse stated that she failed swallow evaluation, she will be maintained on TPN until Friday when speech therapy is available, there is no fever or chills no headache or dizziness no chest pain no shortness of breath no cough no nausea or vomiting no abdominal pain no diarrhea. On 04/09/2020 patient was seen and examined in the ICU, she is alert responsive in no apparent distress, there is no fever or chills no headache or dizziness no chest pain no shortness of breath no cough no nausea or vomiting she has some abdominal pain no burning with urination no frequency or urgency and no hematuria, patient is maintained on oxygen via nasal cannula and is tolerating well at this time On 04/10/2020 patient was seen and examined in the ICU she is very hard of hearing, she is sitting up in a chair and maintained on oxygen at 3 L via nasal cannula and tolerating well, there is no fever or chills no headache or dizziness no chest pain no shortness of breath at rest no cough, no nausea or vomiting no abdominal pain and no urinary symptoms, review of system is very limited due to patient hearing issues. On 04/11/2020 patient was seen and examined in the ICU she is very hard of hearing which limits the review of system without she is alert and oriented in no apparent distress there is no fever or chills she denies any chest pain or shortness of breath she is maintained on oxygen via nasal cannula she is complaining of some abdominal pain however she is tolerating diet well although she is eating less than 50% of her meals there is blood in the stool. On 04/12/2020 patient was seen and examined in the ICU she is alert slightly confused in no apparent distress she is very hard of hearing she is eating her meal was 1 on 1 help there is no fever or chills no headache or dizziness no chest pain no shortness of breath no cough no nausea or vomiting no abdominal pain no diarrhea no burning with urination no frequency or urgency and no hematuria. On 04/13/2020 patient was seen and examined she is alert and oriented 3 in no apparent distress there is no fever or chills no headache or dizziness no chest pain no shortness of breath no cough no nausea or vomiting no abdominal pain no diarrhea, Pittman catheter is in, patient is tolerating oral diet, she is maintai rachel on IV Lasix and IV iron at this time Objective - Vital Signs Vital signs: Vital Signs Temp 97.9 F 04/13/20 08:00 Pulse 89 04/13/20 09:00 Resp 22 04/13/20 09:00 BP 126/82 04/13/20 09:00 Pulse Ox 97 04/13/20 09:00 Intake & Output 04/12/20 04/13/20 04/13/20 18:59 06:59 18:59 Intake Total 300 160 430 Output Total 620 390 130 Balance -320 -230 300 Weight 46.1 kg 47.5 kg Intake: IV 300 160 180 Sodium Chloride 0.9% 500 200 160 80 ml 500 ml @ 20 mls/hr IV .Q24H [facility] Rx#:[id number] Sodium Ferric Gluconat- 100 100 Sucrose 125 mg In Sodium Chloride 0.9% 100 ml @ 100 mls/hr IVPB DAILY [facility] Rx#:[id number] Oral 250 Output: Urine 620 390 130 Other: Voiding Method Indwelling Catheter Indwelling Catheter Indwelling Catheter # Voids 1 ABP, PAP, CO, CI - Last Documented Arterial Blood Pressure 137/45 - Exam In general patient alert responsive in no apparent distress HEENT head normocephalic and atraumatic Neck is supple no JVD no goiter no lymphadenopathy Chest exam reveals a few scattered crackles no wheezing Cardiac exam reveals regular heart sounds no gallops no murmurs Abdomen is soft nontender no organomegaly with normal bowel sounds Extremity exam reveals no edema no cyanosis or clubbing Neurological examination reveals no gross focal deficit - Labs CBC & Chem 7: 04/14/20 06:45 04/14/20 06:45 Labs: Abnormal Lab Results - Last 24 Hours (Table) 04/12/20 04/12/20 04/12/20 Range/Units 12:08 16:48 20:16 WBC (3.8-10.6) k/uL Hgb (11.4-16.0) gm/dL Hct (34.0-46.0) % MCH (25.0-35.0) pg MCHC (31.0-37.0) g/dL RDW (11.5-15.5) % Plt Count (150-450) k/uL Neutrophils # (1.3-7.7) k/uL BUN (7-17) mg/dL Creatinine (0.52-1.04) mg/dL Glucose (74-99) mg/dL POC Glucose (mg/dL) 156 H 179 H 101 H (75-99) mg/dL Magnesium (1.6-2.3) mg/dL Alkaline Phosphatase (38-126) U/L Albumin (3.5-5.0) g/dL 04/12/20 04/13/20 04/13/20 Range/Units 20:23 04:40 04:40 WBC 12.9 H (3.8-10.6) k/uL Hgb 9.5 L (11.4-16.0) gm/dL Hct 31.6 L (34.0-46.0) % MCH 24.5 L (25.0-35.0) pg MCHC 30.1 L (31.0-37.0) g/dL RDW 22.5 H (11.5-15.5) % Plt Count 452 H (150-450) k/uL Neutrophils # 10.3 H (1.3-7.7) k/uL BUN 47 H (7-17) mg/dL Creatinine 1.19 H (0.52-1.04) mg/dL Glucose 117 H (74-99) mg/dL POC Glucose (mg/dL) 119 H (75-99) mg/dL Magnesium 2.4 H (1.6-2.3) mg/dL Alkaline Phosphatase 194 H (38-126) U/L Albumin 2.9 L (3.5-5.0) g/dL 04/13/20 Range/Units 06:47 WBC (3.8-10.6) k/uL Hgb (11.4-16.0) gm/dL Hct (34.0-46.0) % MCH (25.0-35.0) pg MCHC (31.0-37.0) g/dL RDW (11.5-15.5) % Plt Count (150-450) k/uL Neutrophils # (1.3-7.7) k/uL BUN (7-17) mg/dL Creatinine (0.52-1.04) mg/dL Glucose (74-99) mg/dL POC Glucose (mg/dL) 122 H (75-99) mg/dL Magnesium (1.6-2.3) mg/dL Alkaline Phosphatase (38-126) U/L Albumin (3.5-5.0) g/dL Assessment and Plan Plan: 1. Acute respiratory failure, likely related to pulmonary edema requiring transfer to ICU, intubation and mechanical ventilation, currently patient is extubated and tolerating well she is receiving IV Lasix and receiving oxygen via nasal cannula 2. CKD stage 3 Will consult nephrology for possible outpatient follow-up for Procrit injections 3. fluid overload with shortness of breath after 1 unit red blood cell transfusion 4. Underlying history of hypertension 5. Underlying history of hyperlipidemia 6. Underlying history of COPD 7. Underlying history of insulin-dependent diabetes mellitus 8. surgery partial colectomy for colon mass, postoperative day #3 9. Atrial fibrillation with rapid ventricular response patient was started on amiodarone drip, currently off amiodarone Continue with current management, prognosis is guarded due to advanced age and multiple medical problems will follow closely
--- NOTE | 2020-04-14 12:59 | P.PN ---
Subjective Progress Note Date: 04/14/20 Sonal Ulloa is an 89-year-old female patient who presented to the emergency department today for evaluation of low hemoglobin. Patient is currently a resident at [facility] on the [facility]. She had labs performed yesterday and hemoglobin was 6.1. she was sent to [facility] emergency room for evaluation , she received 1 unit of red blood cell transfusion in the emergency room and she started developing shortness of breath repeat hemoglobin was 9.1 patient has a known history of iron deficiency anemia . She was admitted to medical floor gastroenterology consultation and hematology consultation were requested for evaluation of chronic anemia . 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 Patient is otherwise stable there is no fever or chills no headache or dizziness no chest pain no shortness of breath no cough no nausea or vomiting no abdominal pain no diarrhea and no urinary symptoms. On 03/31/2020 patient was seen and examined on the medical floor, there is no fever or chills no headache or dizziness no chest pain no shortness of breath no cough no nausea or vomiting no dominant pain nor diarrhea no burning with urination no frequency or urgency no hematuria, hemoglobin today is 7.6 white blood count 8.0 potassium 3. . On 04/01/2020 patient was seen and examined on the medical floor she is alert and oriented 3 in no apparent distress she is very hard of hearing, she denies any pain or discomfort at this time there is no chest pain or shortness of breath no cough no nausea or vomiting no abdominal pain no diarrhea no blood in the stools no burning with urination no frequency or urgency and no hematuria On 04/02/2020 patient was seen and examined on the medical floor she is feeling well there is no fever or chills no headache or dizziness no chest pain no shortness of breath no cough no nausea or vomiting no abdominal pain no diarrhea no burning with urination no frequency or urgency no hematuria she is scheduled for surgery tomorrow 04/03/2020 patient was seen and examined on the medical floor she is alert and oriented 3 in no apparent distress there is no fever or chills no headache or dizziness no chest pain no shortness of breath no cough no nausea or vomiting no abdominal pain no diarrhea no burning with urination no frequency or urgency no hematuria patient is going for surgery today. 04/04/2020 patient was seen and examined on the medical floor she is alert, con fused, in no apparent distress there is no fever or chills no headache or dizziness no chest pain no shortness of breath no cough no nausea or vomiting no abdominal pain no diarrhea no burning with urination no frequency or urgency no hematuria patient is post op day #1 On 04/05/2020 Patient was seen and examined in the ICU, events from last night noted, patient developed worsening shortness of breath and tachypnea, [facility] was called and patient was transferred to ICU she was intubated and started on mechanical ventilation, at this time patient is intubated sedated maintained on mechanical ventilation, maintained on levophed for pressure support On 04/06/2020, the patient is intubated and maintained on a mechanical ventilator. The blood gases from this morning showed a pH of 7.47 with a pCO2 of 40 and pO2 115. white cell count is at 11 with a hemoglobin of 8.7. the patient went into atrial fibrillation with rapid ventricular response and the patient was started on a amiodarone drip for rate control. Cardiology and critical care following. On 04/07/2020 patient was seen and examined in the ICU she is intubated sedated maintained on mechanical ventilation, ABGs this morning pH 7.33 pCO2 49 pO2 125 white blood count 10.1 hemoglobin 8.3 platelet count 244 BUN 27 creatinine 1.32 plan for today is to try to wean her off ventilation and extubate her if she is doing well, yesterday she had an episode of atrial fibrillation with rapid ventricular response she was seen by cardiology and she had amiodarone drip, patient is off amiodarone drip at this time. I had a prolonged discussion over the phone with patient's daughter Anai, all questions were answered. On 04/08/2020 patient was seen and examined in the ICU she is extubated she is maintained on oxygen via nasal cannula, and tolerating well, she is sitting up in a chair, she is very hard of hearing and and able to answer questions, nurse stated that she failed swallow evaluation, she will be maintained on TPN until Friday when speech therapy is available, there is no fever or chills no headache or dizziness no chest pain no shortness of breath no cough no nausea or vomiting no abdominal pain no diarrhea. On 04/09/2020 patient was seen and examined in the ICU, she is alert responsive in no apparent distress, there is no fever or chills no headache or dizziness no chest pain no shortness of breath no cough no nausea or vomiting she has some abdominal pain no burning with urination no frequency or urgency and no hematuria, patient is maintained on oxygen via nasal cannula and is tolerating well at this time On 04/10/2020 patient was seen and examined in the ICU she is very hard of hearing, she is sitting up in a chair and maintained on oxygen at 3 L via nasal cannula and tolerating well, there is no fever or chills no headache or dizziness no chest pain no shortness of breath at rest no cough, no nausea or vomiting no abdominal pain and no urinary symptoms, review of system is very limited due to patient hearing issues. On 04/11/2020 patient was seen and examined in the ICU she is very hard of hearing which limits the review of system without she is alert and oriented in no apparent distress there is no fever or chills she denies any chest pain or shortness of breath she is maintained on oxygen via nasal cannula she is complaining of some abdominal pain however she is tolerating diet well although she is eating less than 50% of her meals there is blood in the stool. On 04/12/2020 patient was seen and examined in the ICU she is alert slightly confused in no apparent distress she is very hard of hearing she is eating her meal was 1 on 1 help there is no fever or chills no headache or dizziness no chest pain no shortness of breath no cough no nausea or vomiting no abdominal pain no diarrhea no burning with urination no frequency or urgency and no hematuria. On 04/13/2020 patient was seen and examined she is alert and oriented 3 in no apparent distress, there is no fever or chills no headache or dizziness no chest pain no shortness of breath no cough no nausea or vomiting no abdominal pain no diarrhea, Pittman catheter is in, patient is tolerating oral diet, she is mainta ined on IV Lasix and IV iron at this time On 04/14/2020 patient was seen and examined on the medical floor she is alert and responsive in no apparent distress she is tolerating diet well, there is no fever or chills no headache or dizziness no chest pain no shortness of breath no cough no nausea or vomiting no abdominal pain no diarrhea Pittman catheter is in, patient is still maintained on IV Lasix Objective - Vital Signs Vital signs: Vital Signs Temp 98.2 F 04/14/20 11:10 Pulse 72 04/14/20 11:35 Resp 18 04/14/20 11:10 BP 102/45 04/14/20 11:10 Pulse Ox 96 04/14/20 11:10 Intake & Output 04/13/20 04/14/20 04/14/20 18:59 06:59 18:59 Intake Total 590 380 380 Output Total 530 585 Balance 60 -205 380 Intake: IV 340 80 180 Sodium Chloride 0.9% 500 240 80 80 ml 500 ml @ 20 mls/hr IV .Q24H [facility] Rx#:[id number] Sodium Ferric Gluconat- 100 100 Sucrose 125 mg In Sodium Chloride 0.9% 100 ml @ 100 mls/hr IVPB DAILY [facility] Rx#:[id number] Oral 250 300 200 Output: Urine 530 585 Other: Voiding Method Indwelling Catheter Indwelling Catheter Indwelling Catheter ABP, PAP, CO, CI - Last Documented Arterial Blood Pressure 137/45 - Exam In general patient alert responsive in no apparent distress HEENT head normocephalic and atraumatic Neck is supple no JVD no goiter no lymphadenopathy Chest exam reveals a few scattered crackles no wheezing Cardiac exam reveals regular heart sounds no gallops no murmurs Abdomen is soft nontender no organomegaly with normal bowel sounds Extremity exam reveals no edema no cyanosis or clubbing Neurological examination reveals no gross focal deficit - Labs CBC & Chem 7: 04/14/20 06:45 04/14/20 06:45 Labs: Abnormal Lab Results - Last 24 Hours (Table) 04/13/20 04/13/20 04/14/20 Range/Units 17:21 20:51 01:56 WBC (3.8-10.6) k/uL RBC (3.80-5.40) m/uL Hgb (11.4-16.0) gm/dL Hct (34.0-46.0) % MCH (25.0-35.0) pg MCHC (31.0-37.0) g/dL RDW (11.5-15.5) % Plt Count (150-450) k/uL Neutrophils # (Manual) (1.3-7.7) k/uL Carbon Dioxide (22-30) mmol/L BUN (7-17) mg/dL Creatinine (0.52-1.04) mg/dL POC Glucose (mg/dL) 173 H 174 H 109 H (75-99) mg/dL Alkaline Phosphatase (38-126) U/L Total Protein (6.3-8.2) g/dL Albumin (3.5-5.0) g/dL 04/14/20 04/14/20 04/14/20 Range/Units 06:45 06:45 11:13 WBC 11.7 H (3.8-10.6) k/uL RBC 3.70 L (3.80-5.40) m/uL Hgb 9.2 L (11.4-16.0) gm/dL Hct 30.7 L (34.0-46.0) % MCH 24.7 L (25.0-35.0) pg MCHC 29.8 L (31.0-37.0) g/dL RDW 22.6 H (11.5-15.5) % Plt Count 470 H (150-450) k/uL Neutrophils # (Manual) 8.66 H (1.3-7.7) k/uL Carbon Dioxide 32 H (22-30) mmol/L BUN 46 H (7-17) mg/dL Creatinine 1.31 H (0.52-1.04) mg/dL POC Glucose (mg/dL) 242 H (75-99) mg/dL Alkaline Phosphatase 165 H (38-126) U/L Total Protein 6.1 L (6.3-8.2) g/dL Albumin 2.7 L (3.5-5.0) g/dL Assessment and Plan Plan: 1. Acute respiratory failure, likely related to pulmonary edema requiring transfer to ICU, intubation and mechanical ventilation, currently patient is extubated and tolerating well she is receiving IV Lasix and receiving oxygen via nasal cannula 2. CKD stage 3 Will consult nephrology for possible outpatient follow-up for Procrit injections 3. fluid overload with shortness of breath after 1 unit red blood cell transfusion 4. Underlying history of hypertension 5. Underlying history of hyperlipidemia 6. Underlying history of COPD 7. Underlying history of insulin-dependent diabetes mellitus 8. surgery partial colectomy for colon mass, postoperative day #3 9. Atrial fibrillation with rapid ventricular response patient was started on amiodarone drip, currently off amiodarone Continue with current management, prognosis is guarded due to advanced age and multiple medical problems will follow closely
--- NOTE | 2020-04-14 13:28 | P.PN ---
Subjective Progress Note Date: 04/14/20 Principal diagnosis: Anemia secondary to microcytic hypochromic anemia with iron deficiency anemia The patient is seen today 04/14/2020 in follow-up on the regular medical floor. She is currently sitting up in a chair at the bedside. Awake and alert in no acute distress. She denies any worsening shortness of breath, cough or congestion. She is maintaining O2 saturation in the mid 90s on room air. She's been afebrile. Hemodynamically stable. She is status post 2 units of packed red blood cells this admission. Current hemoglobin 9.2. Sputum culture reveals no growth. White count 11.7. Hemoglobin 9.2. Sodium 142. Potassium 4.1. Creatinine 1.31. Chest x-ray continues to show evidence of fluid volume overload and ILD. She remains on diuretics. Objective - Vital Signs Vital signs: Vital Signs Temp 98.2 F 04/14/20 11:10 Pulse 72 04/14/20 11:35 Resp 18 04/14/20 11:10 BP 102/45 04/14/20 11:10 Pulse Ox 96 04/14/20 11:10 Intake & Output 04/13/20 04/14/20 04/14/20 18:59 06:59 18:59 Intake Total 590 380 380 Output Total 530 585 Balance 60 -205 380 Intake: IV 340 80 180 Sodium Chloride 0.9% 500 240 80 80 ml 500 ml @ 20 mls/hr IV .Q24H [facility] Rx#:[id number] Sodium Ferric Gluconat- 100 100 Sucrose 125 mg In Sodium Chloride 0.9% 100 ml @ 100 mls/hr IVPB DAILY [facility] Rx#:[id number] Oral 250 300 200 Output: Urine 530 585 Other: Voiding Method Indwelling Catheter Indwelling Catheter Indwelling Catheter ABP, PAP, CO, CI - Last Documented Arterial Blood Pressure 137/45 - Exam GENERAL EXAM: Alert, very hard of hearing 89-year-old female patient on room air with O2 saturation 96%, comfortable in no apparent distress. HEAD: Normocephalic. EYES: Normal reaction of pupils, equal size. NOSE: Clear with pink turbinates. THROAT: No erythema or exudates. NECK: No masses, no JVD. CHEST: No chest wall deformity. LUNGS: Equal air entry with coarse crackles in the bilateral posterior bases. CVS: S1 and S2 normal with no audible murmur, regular rhythm. ABDOMEN: No hepatosplenomegaly, normal bowel sounds, no guarding or rigidity. SPINE: No scoliosis or deformity SKIN: No rashes CENTRAL NERVOUS SYSTEM: No focal deficits, tone is normal in all 4 extremities. EXTREMITIES: There is no peripheral edema. No clubbing, no cyanosis. Peripheral pulses are intact. - Labs CBC & Chem 7: 04/14/20 06:45 04/14/20 06:45 Labs: Abnormal Lab Results - Last 24 Hours (Table) 04/13/20 04/13/20 04/14/20 Range/Units 17:21 20:51 01:56 WBC (3.8-10.6) k/uL RBC (3.80-5.40) m/uL Hgb (11.4-16.0) gm/dL Hct (34.0-46.0) % MCH (25.0-35.0) pg MCHC (31.0-37.0) g/dL RDW (11.5-15.5) % Plt Count (150-450) k/uL Neutrophils # (Manual) (1.3-7.7) k/uL Carbon Dioxide (22-30) mmol/L BUN (7-17) mg/dL Creatinine (0.52-1.04) mg/dL POC Glucose (mg/dL) 173 H 174 H 109 H (75-99) mg/dL Alkaline Phosphatase (38-126) U/L Total Protein (6.3-8.2) g/dL Albumin (3.5-5.0) g/dL 04/14/20 04/14/20 04/14/20 Range/Units 06:45 06:45 11:13 WBC 11.7 H (3.8-10.6) k/uL RBC 3.70 L (3.80-5.40) m/uL Hgb 9.2 L (11.4-16.0) gm/dL Hct 30.7 L (34.0-46.0) % MCH 24.7 L (25.0-35.0) pg MCHC 29.8 L (31.0-37.0) g/dL RDW 22.6 H (11.5-15.5) % Plt Count 470 H (150-450) k/uL Neutrophils # (Manual) 8.66 H (1.3-7.7) k/uL Carbon Dioxide 32 H (22-30) mmol/L BUN 46 H (7-17) mg/dL Creatinine 1.31 H (0.52-1.04) mg/dL POC Glucose (mg/dL) 242 H (75-99) mg/dL Alkaline Phosphatase 165 H (38-126) U/L Total Protein 6.1 L (6.3-8.2) g/dL Albumin 2.7 L (3.5-5.0) g/dL Assessment and Plan Assessment: 1 cecal mass, status post colectomy, new diagnosis of early stage adenocarcinoma of the colon 2 Acute on chronic hypoxemic respiratory failure secondary to extensive pulm onary fibrosis and COPD 3 Coronary artery disease with previous stent placement #4 Diabetes mellitus 5 Hypertension 6 Hyperlipidemia 7 Hearing disorder 8 Osteoarthritis 9 Renal insufficiency 10 History of TIA 11 History of esophageal stricture with previous dilatation 12 Chronic back pain Plan: The patient was seen and evaluated by Dr. Cagle She is stable from the pulmonary standpoint Discharge planning in place We will follow the patient on as-needed basis I, the cosigning physician, performed a history & physical examination of the patient. Lungs sounds with coarse crackles in bilateral posterior bases, diminished. Maintaining good O2 saturations in the 90s on room air. I discussed the assessment and plan of care with my nurse practitioner, Nargis Leon. I attest to the above note as dictated by her.
[2020-04-14 13:52] VITALS: BMI 21.9
--- NOTE | 2020-04-14 13:55 | XR ---
EXAMINATION TYPE: XR chest 1V portable DATE OF EXAM: 04/14/2020 COMPARISON: 04/11/2020 HISTORY: Shortness of breath TECHNIQUE: Single frontal view of the chest is obtained. FINDINGS: Bilateral infiltrate and pleural effusion. Diffuse osteopenia. Arthropathy of the shoulder s. Atherosclerotic change aorta. Diffuse interstitial pattern. There is prominence of the right hilum with scoliosis and degenerative change. IMPRESSION: 1. Diffuse pleural-parenchymal changes most typical of CHF correlate clinically. No significant inter filomena change.
[2020-04-14 17:31] LABS: Glucose,Whole Blood 118 mg/dL (75-99)
[2020-04-14 20:15] LABS: Glucose,Whole Blood 191 mg/dL (75-99)
[2020-04-14] MEDS: SODIUM CHLORIDE 0.9% 500 ML 500 ML IV SCH (21:30)
[2020-04-14] MEDS: ACETAMINOPHEN TAB 325 MG TAB PO PRN (21:36)
[2020-04-15 01:43] LABS: Glucose,Whole Blood 137 mg/dL (75-99)
[2020-04-15] MEDS: INSULIN ASPART (NovoLOG) 100 UNIT/ML VIAL SQ SCH ×5 (03:35→21:26)
[2020-04-15 07:29] LABS: Glucose,Whole Blood 99 mg/dL (75-99)
[2020-04-15] MEDS: IPRATROPIUM 0.5 MG/2.5 ML NEBU INHALATION SCH ×4 (08:57→19:12)
[2020-04-15] MEDS ORDERED: SODIUM FERRIC GLUCONAT-SUCROSE 125 MG in SODIUM CHLORIDE 0.9% 100 ML IVPB ONE (09:00)
[2020-04-15 09:14] LABS: Anisocytosis Moderate; Basophils # (A) 0.1 k/uL (0-0.2); Basophils % (A) 1 %; Eosinophils # (A) 0.6 k/uL (0-0.7); Eosinophils % (A) 6 %; HCT 29.5 % (34.0-46.0); HGB 8.4 gm/dL (11.4-16.0); Hypochromasia Marked; Lymphocytes # (A) 1.5 k/uL (1.0-4.8); Lymphocytes % (A) 15 %; MCH 23.7 pg (25.0-35.0); MCHC 28.6 g/dL (31.0-37.0); MCV 82.7 fL (80.0-100.0); Mean Platelet Volume 7.2; Microcytosis Slight; Monocytes # (A) 0.7 k/uL (0-1.0); Monocytes % (A) 7 %; Neutrophils # (A) 7.1 k/uL (1.3-7.7); Neutrophils % (A) 70 %; Platelet Count 452 k/uL (150-450); RBC 3.56 m/uL (3.80-5.40); RDW 23.4 % (11.5-15.5); WBC 10.2 k/uL (3.8-10.6)
[2020-04-15] MEDS: FUROSEMIDE 10 MG/ML 2 ML VIAL IV SCH (09:21)
[2020-04-15] MEDS: PANTOPRAZOLE 40 MG/10 ML VIAL IVP SCH (09:21)
[2020-04-15 09:22] LABS: Albumin 2.6 g/dL (3.5-5.0); Calcium 8.3 mg/dL (8.4-10.2); Potassium 4.4 mmol/L (3.5-5.1); Total Bilirubin 0.4 mg/dL (0.2-1.3); Total Protein 5.7 g/dL (6.3-8.2)
[2020-04-15] MEDS: amLODIPine 5 MG TAB PO SCH ×2 (09:22→21:26)
[2020-04-15] MEDS: METOPROLOL TARTRATE 50 MG TAB PO SCH ×2 (09:22→21:26)
[2020-04-15] MEDS: HEPARIN SODIUM,PORCINE 5,000 UNIT/ML 1 ML VIAL SQ SCH ×3 (09:22→21:25)
--- NOTE | 2020-04-15 10:52 | P.PN ---
Subjective Progress Note Date: 04/15/20 Principal diagnosis: Anemia secondary to microcytic hypochromic anemia with iron deficiency anemia The patient is seen today 04/14/2020 in follow-up on the regular medical floor. She is currently sitting up in a chair at the bedside. Awake and alert in no acute distress. She denies any worsening shortness of breath, cough or congestion. She is maintaining O2 saturation in the mid 90s on room air. She's been afebrile. Hemodynamically stable. She is status post 2 units of packed red blood cells this admission. Current hemoglobin 9.2. Sputum culture reveals no growth. White count 11.7. Hemoglobin 9.2. Sodium 142. Potassium 4.1. Creatinine 1.31. Chest x-ray continues to show evidence of fluid volume overload and ILD. She remains on diuretics. Patient is seen today 04/15/2020 in follow-up on the regular medical floor. She is currently resting comfortably in bed. Awake and alert in no acute distress. Maintaining O2 saturations in the mid 90s on 2.5 L/m per nasal cannula. She's afebrile. Hemodynamically stable. Sputum culture revealed no growth. White count 10.2. Hemoglobin 8.4. Sodium 140. Potassium 4.4. Creatinine 1.30. Objective - Vital Signs Vital signs: Vital Signs Temp 98.1 F 04/15/20 05:20 Pulse 72 04/15/20 05:20 Resp 16 04/15/20 05:20 BP 151/69 04/15/20 05:20 Pulse Ox 93 L 04/15/20 05:20 Intake & Output 04/14/20 04/15/20 04/15/20 18:59 06:59 18:59 Intake Total 380 480 Output Total 300 200 300 Balance 80 280 -300 Weight 47.5 kg Intake: IV 180 180 Sodium Chloride 0.9% 500 80 180 ml 500 ml @ 20 mls/hr IV .Q24H [facility] Rx#:[id number] Sodium Ferric Gluconat- 100 Sucrose 125 mg In Sodium Chloride 0.9% 100 ml @ 100 mls/hr IVPB DAILY [facility] Rx#:[id number] Oral 200 300 Output: Urine 300 200 300 Uretheral (Pittman) 200 300 Other: Voiding Method Indwelling Catheter Indwelling Catheter Indwelling Catheter # Voids 1 ABP, PAP, CO, CI - Last Documented Arterial Blood Pressure 137/45 - Exam GENERAL EXAM: Alert, very hard of hearing 89-year-old female patient on 2 L with O2 saturation 93%, comfortable in no apparent distress. HEAD: Normocephalic. EYES: Normal reaction of pupils, equal size. NOSE: Clear with pink turbinates. THROAT: No erythema or exudates. NECK: No masses, no JVD. CHEST: No chest wall deformity. LUNGS: Equal air entry with coarse crackles in the bilateral posterior bases. CVS: S1 and S2 normal with no audible murmur, regular rhythm. ABDOMEN: No hepatosplenomegaly, normal bowel sounds, no guarding or rigidity. SPINE: No scoliosis or deformity SKIN: No rashes CENTRAL NERVOUS SYSTEM: No focal deficits, tone is normal in all 4 extremities. EXTREMITIES: There is no peripheral edema. No clubbing, no cyanosis. Peripheral pulses are intact. - Labs CBC & Chem 7: 04/15/20 08:21 04/15/20 08:21 Labs: Abnormal Lab Results - Last 24 Hours (Table) 04/14/20 04/14/20 04/14/20 Range/Units 11:13 17:12 20:14 RBC (3.80-5.40) m/uL Hgb (11.4-16.0) gm/dL Hct (34.0-46.0) % MCH (25.0-35.0) pg MCHC (31.0-37.0) g/dL RDW (11.5-15.5) % Plt Count (150-450) k/uL Carbon Dioxide (22-30) mmol/L BUN (7-17) mg/dL Creatinine (0.52-1.04) mg/dL POC Glucose (mg/dL) 242 H 118 H 191 H (75-99) mg/dL Calcium (8.4-10.2) mg/dL Alkaline Phosphatase (38-126) U/L Total Protein (6.3-8.2) g/dL Albumin (3.5-5.0) g/dL 04/15/20 04/15/20 04/15/20 Range/Units 01:42 08:21 08:21 RBC 3.56 L (3.80-5.40) m/uL Hgb 8.4 L (11.4-16.0) gm/dL Hct 29.5 L (34.0-46.0) % MCH 23.7 L (25.0-35.0) pg MCHC 28.6 L (31.0-37.0) g/dL RDW 23.4 H (11.5-15.5) % Plt Count 452 H (150-450) k/uL Carbon Dioxide 32 H (22-30) mmol/L BUN 45 H (7-17) mg/dL Creatinine 1.30 H (0.52-1.04) mg/dL POC Glucose (mg/dL) 137 H (75-99) mg/dL Calcium 8.3 L (8.4-10.2) mg/dL Alkaline Phosphatase 153 H (38-126) U/L Total Protein 5.7 L (6.3-8.2) g/dL Albumin 2.6 L (3.5-5.0) g/dL Assessment and Plan Assessment: 1 Cecal mass, status post colectomy, new diagnosis of early stage adenocarcinoma of the colon 2 Acute on chronic hypoxemic respiratory failure secondary to extensive pulmonary fibrosis and COPD 3 Coronary artery disease with previous stent placement 4 Diabetes mellitus 5 Hypertension 6 Hyperlipidemia 7 Hearing disorder 8 Osteoarthritis 9 Renal insufficiency 10 History of TIA 11 History of esophageal stricture with previous dilatation 12 Chronic back pain Plan: The patient was seen and evaluated by Dr. Cagle She is stable from the pulmonary standpoint Discharge planning in place [facility] I, the cosigning physician, performed a history & physical examination of the patient. Lungs sounds with coarse crackles in bilateral posterior bases, dimi nished. Maintaining good O2 saturations in the 90s on 2 L/m per nasal cannula. I discussed the assessment and plan of care with my nurse practitioner, Nargis Leon. I attest to the above note as dictated by her.
[2020-04-15 11:13] LABS: Glucose,Whole Blood 281 mg/dL (75-99)
--- NOTE | 2020-04-15 14:07 | P.PN ---
Subjective Progress Note Date: 04/15/20 Sonal Ulloa is an 89-year-old female patient who presented to the emergency department today for evaluation of low hemoglobin. Patient is currently a resident at [facility] on the [facility]. She had labs performed yesterday and hemoglobin was 6.1. she was sent to [facility] emergency room for evaluation , she received 1 unit of red blood cell transfusion in the emergency room and she started developing shortness of breath repeat hemoglobin was 9.1 patient has a known history of iron deficiency anemia . She was admitted to medical floor gastroenterology consultation and hematology consultation were requested for evaluation of chronic anemia . 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 Patient is otherwise stable there is no fever or chills no headache or dizziness no chest pain no shortness of breath no cough no nausea or vomiting no abdominal pain no diarrhea and no urinary symptoms. On 03/31/2020 patient was seen and examined on the medical floor, there is no fever or chills no headache or dizziness no chest pain no shortness of breath no cough no nausea or vomiting no dominant pain nor diarrhea no burning with urination no frequency or urgency no hematuria, hemoglobin today is 7.6 white blood count 8.0 potassium 3. . On 04/01/2020 patient was seen and examined on the medical floor she is alert and oriented 3 in no apparent distress she is very hard of hearing, she denies any pain or discomfort at this time there is no chest pain or shortness of breath no cough no nausea or vomiting no abdominal pain no diarrhea no blood in the stools no burning with urination no frequency or urgency and no hematuria On 04/02/2020 patient was seen and examined on the medical floor she is feeling well there is no fever or chills no headache or dizziness no chest pain no shortness of breath no cough no nausea or vomiting no abdominal pain no diarrhea no burning with urination no frequency or urgency no hematuria she is scheduled for surgery tomorrow 04/03/2020 patient was seen and examined on the medical floor she is alert and oriented 3 in no apparent distress there is no fever or chills no headache or dizziness no chest pain no shortness of breath no cough no nausea or vomiting no abdominal pain no diarrhea no burning with urination no frequency or urgency no hematuria patient is going for surgery today. 04/04/2020 patient was seen and examined on the medical floor she is alert, con fused, in no apparent distress there is no fever or chills no headache or dizziness no chest pain no shortness of breath no cough no nausea or vomiting no abdominal pain no diarrhea no burning with urination no frequency or urgency no hematuria patient is post op day #1 On 04/05/2020 Patient was seen and examined in the ICU, events from last night noted, patient developed worsening shortness of breath and tachypnea, [facility] was called and patient was transferred to ICU she was intubated and started on mechanical ventilation, at this time patient is intubated sedated maintained on mechanical ventilation, maintained on levophed for pressure support On 04/06/2020, the patient is intubated and maintained on a mechanical ventilator. The blood gases from this morning showed a pH of 7.47 with a pCO2 of 40 and pO2 115. white cell count is at 11 with a hemoglobin of 8.7. the patient went into atrial fibrillation with rapid ventricular response and the patient was started on a amiodarone drip for rate control. Cardiology and critical care following. On 04/07/2020 patient was seen and examined in the ICU she is intubated sedated maintained on mechanical ventilation, ABGs this morning pH 7.33 pCO2 49 pO2 125 white blood count 10.1 hemoglobin 8.3 platelet count 244 BUN 27 creatinine 1.32 plan for today is to try to wean her off ventilation and extubate her if she is doing well, yesterday she had an episode of atrial fibrillation with rapid ventricular response she was seen by cardiology and she had amiodarone drip, patient is off amiodarone drip at this time. I had a prolonged discussion over the phone with patient's daughter Anai, all questions were answered. On 04/08/2020 patient was seen and examined in the ICU she is extubated she is maintained on oxygen via nasal cannula, and tolerating well, she is sitting up in a chair, she is very hard of hearing and and able to answer questions, nurse stated that she failed swallow evaluation, she will be maintained on TPN until Friday when speech therapy is available, there is no fever or chills no headache or dizziness no chest pain no shortness of breath no cough no nausea or vomiting no abdominal pain no diarrhea. On 04/09/2020 patient was seen and examined in the ICU, she is alert responsive in no apparent distress, there is no fever or chills no headache or dizziness no chest pain no shortness of breath no cough no nausea or vomiting she has some abdominal pain no burning with urination no frequency or urgency and no hematuria, patient is maintained on oxygen via nasal cannula and is tolerating well at this time On 04/10/2020 patient was seen and examined in the ICU she is very hard of hearing, she is sitting up in a chair and maintained on oxygen at 3 L via nasal cannula and tolerating well, there is no fever or chills no headache or dizziness no chest pain no shortness of breath at rest no cough, no nausea or vomiting no abdominal pain and no urinary symptoms, review of system is very limited due to patient hearing issues. On 04/11/2020 patient was seen and examined in the ICU she is very hard of hearing which limits the review of system without she is alert and oriented in no apparent distress there is no fever or chills she denies any chest pain or shortness of breath she is maintained on oxygen via nasal cannula she is complaining of some abdominal pain however she is tolerating diet well although she is eating less than 50% of her meals there is blood in the stool. On 04/12/2020 patient was seen and examined in the ICU she is alert slightly confused in no apparent distress she is very hard of hearing she is eating her meal was 1 on 1 help there is no fever or chills no headache or dizziness no chest pain no shortness of breath no cough no nausea or vomiting no abdominal pain no diarrhea no burning with urination no frequency or urgency and no hematuria. On 04/13/2020 patient was seen and examined she is alert and oriented 3 in no apparent distress, there is no fever or chills no headache or dizziness no chest pain no shortness of breath no cough no nausea or vomiting no abdominal pain no diarrhea, Pittman catheter is in, patient is tolerating oral diet, she is mainta ined on IV Lasix and IV iron at this time On 04/14/2020 patient was seen and examined on the medical floor she is alert and responsive in no apparent distress she is tolerating diet well, there is no fever or chills no headache or dizziness no chest pain no shortness of breath no cough no nausea or vomiting no abdominal pain no diarrhea Pittman catheter is in, patient is still maintained on IV Lasix. On 04/15/2020 patient was seen and examined on the medical floor she is alert and responsive in no apparent distress, she is complaining of abdominal pain she is still receiving IV Lasix, Pittman catheter is still end will discontinue Pittman catheter and check bladder scan, patient is improving gradually with anticipated transfer back to [facility] on Friday Objective - Vital Signs Vital signs: Vital Signs Temp 97.9 F 04/15/20 12:41 Pulse 68 04/15/20 12:41 Resp 18 04/15/20 12:41 BP 133/51 04/15/20 12:41 Pulse Ox 98 04/15/20 12:41 Intake & Output 04/14/20 04/15/20 04/15/20 18:59 06:59 18:59 Intake Total 380 480 Output Total 300 200 300 Balance 80 280 -300 Weight 47.5 kg Intake: IV 180 180 Sodium Chloride 0.9% 500 80 180 ml 500 ml @ 20 mls/hr IV .Q24H [facility] Rx#:[id number] Sodium Ferric Gluconat- 100 Sucrose 125 mg In Sodium Chloride 0.9% 100 ml @ 100 mls/hr IVPB DAILY [facility] Rx#:[id number] Oral 200 300 Output: Urine 300 200 300 Uretheral (Pittman) 200 300 Other: Voiding Method Indwelling Catheter Indwelling Catheter Indwelling Catheter # Voids 1 ABP, PAP, CO, CI - Last Documented Arterial Blood Pressure 137/45 - Exam In general patient alert responsive in no apparent distress HEENT head normocephalic and atraumatic Neck is supple no JVD no goiter no lymphadenopathy Chest exam reveals a few scattered crackles no wheezing Cardiac exam reveals regular heart sounds no gallops no murmurs Abdomen is soft nontender no organomegaly with normal bowel sounds Extremity exam reveals no edema no cyanosis or clubbing Neurological examination reveals no gross focal deficit - Labs CBC & Chem 7: 04/15/20 08:21 04/15/20 08:21 Labs: Abnormal Lab Results - Last 24 Hours (Table) 04/14/20 04/14/20 04/15/20 Range/Units 17:12 20:14 01:42 RBC (3.80-5.40) m/uL Hgb (11.4-16.0) gm/dL Hct (34.0-46.0) % MCH (25.0-35.0) pg MCHC (31.0-37.0) g/dL RDW (11.5-15.5) % Plt Count (150-450) k/uL Carbon Dioxide (22-30) mmol/L BUN (7-17) mg/dL Creatinine (0.52-1.04) mg/dL POC Glucose (mg/dL) 118 H 191 H 137 H (75-99) mg/dL Calcium (8.4-10.2) mg/dL Alkaline Phosphatase (38-126) U/L Total Protein (6.3-8.2) g/dL Albumin (3.5-5.0) g/dL 04/15/20 04/15/20 04/15/20 Range/Units 08:21 08:21 11:12 RBC 3.56 L (3.80-5.40) m/uL Hgb 8.4 L (11.4-16.0) gm/dL Hct 29.5 L (34.0-46.0) % MCH 23.7 L (25.0-35.0) pg MCHC 28.6 L (31.0-37.0) g/dL RDW 23.4 H (11.5-15.5) % Plt Count 452 H (150-450) k/uL Carbon Dioxide 32 H (22-30) mmol/L BUN 45 H (7-17) mg/dL Creatinine 1.30 H (0.52-1.04) mg/dL POC Glucose (mg/dL) 281 H (75-99) mg/dL Calcium 8.3 L (8.4-10.2) mg/dL Alkaline Phosphatase 153 H (38-126) U/L Total Protein 5.7 L (6.3-8.2) g/dL Albumin 2.6 L (3.5-5.0) g/dL Assessment and Plan Plan: 1. Acute respiratory failure, likely related to pulmonary edema requiring transfer to ICU, intubation and mechanical ventilation, currently patient is extubated and tolerating well she is receiving IV Lasix and receiving oxygen via nasal cannula 2. CKD stage 3 Will consult nephrology for possible outpatient follow-up for Procrit injections 3. fluid overload with shortness of breath after 1 unit red blood cell transfusion 4. Underlying history of hypertension 5. Underlying history of hyperlipidemia 6. Underlying history of COPD 7. Underlying history of insulin-dependent diabetes mellitus 8. surgery partial colectomy for colon mass, postoperative day #3 9. Atrial fibrillation with rapid ventricular response patient was started on amiodarone drip, currently off amiodarone Continue with current management, prognosis is guarded due to advanced age and multiple medical problems will follow closely
--- NOTE | 2020-04-15 15:30 | P.PN ---
Subjective Progress Note Date: 04/15/20 CHIEF COMPLAINT: Colon cancer HISTORY OF PRESENT ILLNESS: The patient is a 89-year-old female with colon cancer. Patient is resting comfortably. No new complaints. S/p right colectomy 04/03/2020. She is having bowel movements. ROS: No reports of nausea and vomiting. No fevers or chills. No new chest pain. No productive sputum PHYSICAL EXAM: VITAL SIGNS: Reviewed CONSTITUTIONAL: Well developed and in no acute distress. EYES: Conjuctivae without sclera icterus. Extraocular movements grossly intact. HEAD, EARS, NOSE, THROAT: Moist buccal mucosa. Head is atraumatic, normocephalic. Hears conversational speech. No nasal drainage. NECK: Supple. No thyroidomegaly. RESPIRATORY: Non-labored respirations and equal bilateral excursions. CARDIOVASCULAR: Palpable 2+ radial pulses. ABDOMEN: No peritonitis. MUSCULOSKELETAL: No gross deformity of the lower extremities noted. No clubbing. No cyanosis. SKIN: Good skin turgor. Well perfused. NEUROLOGIC: Cranial nerves II through XII grossly intact. No focal or lateralizing signs. PSYCH: Appropriate affect. Alert and oriented to person, place and time. CLINICAL LABS: White blood cell count normal, 10.2. Hgb 8.4. ASSESSMENT: 1. Colon cancer, ascending PLAN: 1. Diet as tolerated Objective - Vital Signs Vital signs: Vital Signs Temp 97.9 F 04/15/20 12:41 Pulse 68 04/15/20 12:41 Resp 18 04/15/20 12:41 BP 133/51 04/15/20 12:41 Pulse Ox 98 04/15/20 12:41 Intake & Output 04/14/20 04/15/20 04/15/20 18:59 06:59 18:59 Intake Total 380 480 860 Output Total 300 200 300 Balance 80 280 560 Weight 47.5 kg Intake: IV 180 180 160 Sodium Chloride 0.9% 500 80 180 160 ml 500 ml @ 20 mls/hr IV .Q24H [facility] Rx#:[id number] Sodium Ferric Gluconat- 100 Sucrose 125 mg In Sodium Chloride 0.9% 100 ml @ 100 mls/hr IVPB DAILY [facility] Rx#:[id number] Intake, IV Titration 100 Amount Sodium Ferric Gluconat- 100 Sucrose 125 mg In Sodium Chloride 0.9% 100 ml @ 100 mls/hr IVPB ONCE ONE Rx#:[id number] Oral 200 300 600 Output: Urine 300 200 300 Uretheral (Pittman) 200 300 Other: Voiding Method Indwelling Catheter Indwelling Catheter Indwelling Catheter # Voids 1 ABP, PAP, CO, CI - Last Documented Arterial Blood Pressure 137/45 - Labs CBC & Chem 7: 04/15/20 08:21 04/15/20 08:21 Labs: Abnormal Lab Results - Last 24 Hours (Table) 04/14/20 04/14/20 04/15/20 Range/Units 17:12 20:14 01:42 RBC (3.80-5.40) m/uL Hgb (11.4-16.0) gm/dL Hct (34.0-46.0) % MCH (25.0-35.0) pg MCHC (31.0-37.0) g/dL RDW (11.5-15.5) % Plt Count (150-450) k/uL Carbon Dioxide (22-30) mmol/L BUN (7-17) mg/dL Creatinine (0.52-1.04) mg/dL POC Glucose (mg/dL) 118 H 191 H 137 H (75-99) mg/dL Calcium (8.4-10.2) mg/dL Alkaline Phosphatase (38-126) U/L Total Protein (6.3-8.2) g/dL Albumin (3.5-5.0) g/dL 04/15/20 04/15/20 04/15/20 Range/Units 08:21 08:21 11:12 RBC 3.56 L (3.80-5.40) m/uL Hgb 8.4 L (11.4-16.0) gm/dL Hct 29.5 L (34.0-46.0) % MCH 23.7 L (25.0-35.0) pg MCHC 28.6 L (31.0-37.0) g/dL RDW 23.4 H (11.5-15.5) % Plt Count 452 H (150-450) k/uL Carbon Dioxide 32 H (22-30) mmol/L BUN 45 H (7-17) mg/dL Creatinine 1.30 H (0.52-1.04) mg/dL POC Glucose (mg/dL) 281 H (75-99) mg/dL Calcium 8.3 L (8.4-10.2) mg/dL Alkaline Phosphatase 153 H (38-126) U/L Total Protein 5.7 L (6.3-8.2) g/dL Albumin 2.6 L (3.5-5.0) g/dL
[2020-04-15 17:02] LABS: Glucose,Whole Blood 108 mg/dL (75-99)
[2020-04-15] MEDS: SODIUM CHLORIDE 0.9% 500 ML 500 ML IV SCH (20:22)
[2020-04-15 20:28] LABS: Glucose,Whole Blood 230 mg/dL (75-99)
[2020-04-15] MEDS: ACETAMINOPHEN TAB 325 MG TAB PO PRN (21:25)
[2020-04-15] MEDS: ALPRAZolam 0.25 MG TAB PO PRN (23:16)
[2020-04-16] MEDS: INSULIN ASPART (NovoLOG) 100 UNIT/ML VIAL SQ SCH ×5 (04:05→21:05)
[2020-04-16 07:10] LABS: Glucose,Whole Blood 100 mg/dL (75-99)
[2020-04-16] MEDS: IPRATROPIUM 0.5 MG/2.5 ML NEBU INHALATION SCH ×4 (08:25→19:41)
[2020-04-16] MEDS: FUROSEMIDE 10 MG/ML 2 ML VIAL IV SCH (09:05)
[2020-04-16] MEDS: METOPROLOL TARTRATE 50 MG TAB PO SCH ×2 (09:05→21:05)
[2020-04-16] MEDS: amLODIPine 5 MG TAB PO SCH ×2 (09:05→21:05)
[2020-04-16] MEDS: PANTOPRAZOLE 40 MG/10 ML VIAL IVP SCH (09:05)
[2020-04-16] MEDS: HEPARIN SODIUM,PORCINE 5,000 UNIT/ML 1 ML VIAL SQ SCH ×3 (09:05→23:26)
[2020-04-16 11:16] LABS: Glucose,Whole Blood 229 mg/dL (75-99)
[2020-04-16 13:11] LABS: Appearance,Urine Cloudy (Clear); Bacteria,Urine Many /hpf; Bilirubin,Urine Negative (Negative); Blood,Urine Small (Negative); Color,Urine Light Yellow; Glucose,Urine (UA) Negative (Negative); Ketones,Urine Negative (Negative); Leukocyte Esterase,Urine Large (Negative); Mucus,Urine Rare /hpf; Nitrite,Urine Negative (Negative); Protein,Urine Negative (Negative); RBC,Urine 8 /hpf (0-5); Squamous Epithelial Cell,Urine <1 /hpf (0-4); Urobilinogen,Urine <2.0 mg/dL (<2.0); WBC,Urine 160 /hpf (0-5)
[2020-04-16] MEDS: ACETAMINOPHEN TAB 325 MG TAB PO PRN ×2 (13:31→21:06)
--- NOTE | 2020-04-16 13:39 | P.PN ---
Subjective Progress Note Date: 04/16/20 CHIEF COMPLAINT: Colon cancer HISTORY OF PRESENT ILLNESS: The patient is a 89-year-old female with colon cancer. She is s/p right colectomy 04/03/2020. She is having bowel movements. She still has a Pittman catheter. She is sitting up in a chair. She had a bowel movement yesterday. ROS: No reports of nausea and vomiting. No fevers or chills. No new chest pain. No productive sputum PHYSICAL EXAM: VITAL SIGNS: Reviewed CONSTITUTIONAL: Well developed and in no acute distress. EYES: Conjuctivae without sclera icterus. Extraocular movements grossly intact. HEAD, EARS, NOSE, THROAT: Moist buccal mucosa. Head is atraumatic, normocephalic. Patient reads lips. Has difficulty hearing. NECK: Supple. No thyroidomegaly. RESPIRATORY: Non-labored respirations and equal bilateral excursions. CARDIOVASCULAR: Palpable 2+ radial pulses. ABDOMEN: Dressing is intact. MUSCULOSKELETAL: No gross deformity of the lower extremities noted. No clubbing. No cyanosis. SKIN: Good skin turgor. Well perfused. NEUROLOGIC: Cranial nerves II through XII grossly intact. No focal or lateralizing signs. PSYCH: Appropriate affect. Alert and oriented to person, place and time. CLINICAL LABS: White blood cell count normal, 10.2. Hgb 8.4. Blood sugar glucose 281 to 120s. ASSESSMENT: 1. Colon cancer, ascending PLAN: 1. Agree with removal of Pittman catheter. 2. Patient cleared from surgical standpoint for discharge to rehab facility. Objective - Vital Signs Vital signs: Vital Signs Temp 97.2 F L 04/16/20 12:51 Pulse 76 04/16/20 13:02 Resp 22 04/16/20 12:51 BP 163/68 04/16/20 12:51 Pulse Ox 96 04/16/20 12:51 Intake & Output 04/15/20 04/16/20 04/16/20 18:59 06:59 18:59 Intake Total 860 380 Output Total 650 600 Balance 210 -220 Intake: IV 160 80 Sodium Chloride 0.9% 500 160 80 ml 500 ml @ 20 mls/hr IV .Q24H [facility] Rx#:[id number] Intake, IV Titration 100 Amount Sodium Ferric Gluconat- 100 Sucrose 125 mg In Sodium Chloride 0.9% 100 ml @ 100 mls/hr IVPB ONCE ONE Rx#:[id number] Oral 600 300 Output: Urine 650 600 Uretheral (Pittman) 650 600 Other: Voiding Method Indwelling Catheter Indwelling Catheter Indwelling Catheter # Bowel Movements 1 ABP, PAP, CO, CI - Last Documented Arterial Blood Pressure 137/45 - Labs CBC & Chem 7: 04/15/20 08:21 04/15/20 08:21 Labs: Abnormal Lab Results - Last 24 Hours (Table) 04/15/20 04/15/20 04/16/20 Range/Units 17:00 20:26 07:08 POC Glucose (mg/dL) 108 H 230 H 100 H (75-99) mg/dL Urine Appearance (Clear) Urine Blood (Negative) Ur Leukocyte Esterase (Negative) Urine RBC (0-5) /hpf Urine WBC (0-5) /hpf Urine WBC Clumps (None) /hpf Urine Bacteria (None) /hpf Urine Mucus (None) /hpf 04/16/20 04/16/20 Range/Units 11:15 12:45 POC Glucose (mg/dL) 229 H (75-99) mg/dL Urine Appearance Cloudy H (Clear) Urine Blood Small H (Negative) Ur Leukocyte Esterase Large H (Negative) Urine RBC 8 H (0-5) /hpf Urine WBC 160 H (0-5) /hpf Urine WBC Clumps Many H (None) /hpf Urine Bacteria Many H (None) /hpf Urine Mucus Rare H (None) /hpf
--- NOTE | 2020-04-16 14:05 | P.PN ---
Subjective Progress Note Date: 04/16/20 Sonal Ulloa is an 89-year-old female patient who presented to the emergency department today for evaluation of low hemoglobin. Patient is currently a resident at [facility] on the [facility]. She had labs performed yesterday and hemoglobin was 6.1. she was sent to [facility] emergency room for evaluation , she received 1 unit of red blood cell transfusion in the emergency room and she started developing shortness of breath repeat hemoglobin was 9.1 patient has a known history of iron deficiency anemia . She was admitted to medical floor gastroenterology consultation and hematology consultation were requested for evaluation of chronic anemia . 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 Patient is otherwise stable there is no fever or chills no headache or dizziness no chest pain no shortness of breath no cough no nausea or vomiting no abdominal pain no diarrhea and no urinary symptoms. On 03/31/2020 patient was seen and examined on the medical floor, there is no fever or chills no headache or dizziness no chest pain no shortness of breath no cough no nausea or vomiting no dominant pain nor diarrhea no burning with urination no frequency or urgency no hematuria, hemoglobin today is 7.6 white blood count 8.0 potassium 3. . On 04/01/2020 patient was seen and examined on the medical floor she is alert and oriented 3 in no apparent distress she is very hard of hearing, she denies any pain or discomfort at this time there is no chest pain or shortness of breath no cough no nausea or vomiting no abdominal pain no diarrhea no blood in the stools no burning with urination no frequency or urgency and no hematuria On 04/02/2020 patient was seen and examined on the medical floor she is feeling well there is no fever or chills no headache or dizziness no chest pain no shortness of breath no cough no nausea or vomiting no abdominal pain no diarrhea no burning with urination no frequency or urgency no hematuria she is scheduled for surgery tomorrow 04/03/2020 patient was seen and examined on the medical floor she is alert and oriented 3 in no apparent distress there is no fever or chills no headache or dizziness no chest pain no shortness of breath no cough no nausea or vomiting no abdominal pain no diarrhea no burning with urination no frequency or urgency no hematuria patient is going for surgery today. 04/04/2020 patient was seen and examined on the medical floor she is alert, con fused, in no apparent distress there is no fever or chills no headache or dizziness no chest pain no shortness of breath no cough no nausea or vomiting no abdominal pain no diarrhea no burning with urination no frequency or urgency no hematuria patient is post op day #1 On 04/05/2020 Patient was seen and examined in the ICU, events from last night noted, patient developed worsening shortness of breath and tachypnea, [facility] was called and patient was transferred to ICU she was intubated and started on mechanical ventilation, at this time patient is intubated sedated maintained on mechanical ventilation, maintained on levophed for pressure support On 04/06/2020, the patient is intubated and maintained on a mechanical ventilator. The blood gases from this morning showed a pH of 7.47 with a pCO2 of 40 and pO2 115. white cell count is at 11 with a hemoglobin of 8.7. the patient went into atrial fibrillation with rapid ventricular response and the patient was started on a amiodarone drip for rate control. Cardiology and critical care following. On 04/07/2020 patient was seen and examined in the ICU she is intubated sedated maintained on mechanical ventilation, ABGs this morning pH 7.33 pCO2 49 pO2 125 white blood count 10.1 hemoglobin 8.3 platelet count 244 BUN 27 creatinine 1.32 plan for today is to try to wean her off ventilation and extubate her if she is doing well, yesterday she had an episode of atrial fibrillation with rapid ventricular response she was seen by cardiology and she had amiodarone drip, patient is off amiodarone drip at this time. I had a prolonged discussion over the phone with patient's daughter Anai, all questions were answered. On 04/08/2020 patient was seen and examined in the ICU she is extubated she is maintained on oxygen via nasal cannula, and tolerating well, she is sitting up in a chair, she is very hard of hearing and and able to answer questions, nurse stated that she failed swallow evaluation, she will be maintained on TPN until Friday when speech therapy is available, there is no fever or chills no headache or dizziness no chest pain no shortness of breath no cough no nausea or vomiting no abdominal pain no diarrhea. On 04/09/2020 patient was seen and examined in the ICU, she is alert responsive in no apparent distress, there is no fever or chills no headache or dizziness no chest pain no shortness of breath no cough no nausea or vomiting she has some abdominal pain no burning with urination no frequency or urgency and no hematuria, patient is maintained on oxygen via nasal cannula and is tolerating well at this time On 04/10/2020 patient was seen and examined in the ICU she is very hard of hearing, she is sitting up in a chair and maintained on oxygen at 3 L via nasal cannula and tolerating well, there is no fever or chills no headache or dizziness no chest pain no shortness of breath at rest no cough, no nausea or vomiting no abdominal pain and no urinary symptoms, review of system is very limited due to patient hearing issues. On 04/11/2020 patient was seen and examined in the ICU she is very hard of hearing which limits the review of system without she is alert and oriented in no apparent distress there is no fever or chills she denies any chest pain or shortness of breath she is maintained on oxygen via nasal cannula she is complaining of some abdominal pain however she is tolerating diet well although she is eating less than 50% of her meals there is blood in the stool. On 04/12/2020 patient was seen and examined in the ICU she is alert slightly confused in no apparent distress she is very hard of hearing she is eating her meal was 1 on 1 help there is no fever or chills no headache or dizziness no chest pain no shortness of breath no cough no nausea or vomiting no abdominal pain no diarrhea no burning with urination no frequency or urgency and no hematuria. On 04/13/2020 patient was seen and examined she is alert and oriented 3 in no apparent distress, there is no fever or chills no headache or dizziness no chest pain no shortness of breath no cough no nausea or vomiting no abdominal pain no diarrhea, Pittman catheter is in, patient is tolerating oral diet, she is mainta ined on IV Lasix and IV iron at this time On 04/14/2020 patient was seen and examined on the medical floor she is alert and responsive in no apparent distress she is tolerating diet well, there is no fever or chills no headache or dizziness no chest pain no shortness of breath no cough no nausea or vomiting no abdominal pain no diarrhea Pittman catheter is in, patient is still maintained on IV Lasix. On 04/15/2020 patient was seen and examined on the medical floor she is alert and responsive in no apparent distress, she is complaining of abdominal pain she is still receiving IV Lasix, Pittman catheter is still end will discontinue Pittman catheter and check bladder scan, patient is improving gradually with anticipated transfer back to [facility] on Friday. On 04/16/2020 patient was seen and examined on the medical floor she is alert and oriented 3 in no apparent distress there is no fever or chills no headache or dizziness no chest pain no shortness of breath no cough no nausea or vomiting no abdominal pain no diarrhea patient refused to have her Pittman catheter removed yesterday she was counseled in length today she is willing at this time to have her catheter removed, there is evidence of urinary tract infection at this time Objective - Vital Signs Vital signs: Vital Signs Temp 97.2 F L 04/16/20 12:51 Pulse 76 04/16/20 13:02 Resp 22 04/16/20 12:51 BP 163/68 04/16/20 12:51 Pulse Ox 96 04/16/20 12:51 Intake & Output 04/15/20 04/16/20 04/16/20 18:59 06:59 18:59 Intake Total 860 380 Output Total 650 600 Balance 210 -220 Intake: IV 160 80 Sodium Chloride 0.9% 500 160 80 ml 500 ml @ 20 mls/hr IV .Q24H [facility] Rx#:[id number] Intake, IV Titration 100 Amount Sodium Ferric Gluconat- 100 Sucrose 125 mg In Sodium Chloride 0.9% 100 ml @ 100 mls/hr IVPB ONCE ONE Rx#:[id number] Oral 600 300 Output: Urine 650 600 Uretheral (Pittman) 650 600 Other: Voiding Method Indwelling Catheter Indwelling Catheter Indwelling Catheter # Bowel Movements 1 ABP, PAP, CO, CI - Last Documented Arterial Blood Pressure 137/45 - Exam In general patient alert responsive in no apparent distress HEENT head normocephalic and atraumatic Neck is supple no JVD no goiter no lymphadenopathy Chest exam reveals a few scattered crackles no wheezing Cardiac exam reveals regular heart sounds no gallops no murmurs Abdomen is soft nontender no organomegaly with normal bowel sounds Extremity exam reveals no edema no cyanosis or clubbing Neurological examination reveals no gross focal deficit - Labs CBC & Chem 7: 04/15/20 08:21 04/15/20 08:21 Labs: Abnormal Lab Results - Last 24 Hours (Table) 04/15/20 04/15/20 04/16/20 Range/Units 17:00 20:26 07:08 POC Glucose (mg/dL) 108 H 230 H 100 H (75-99) mg/dL Urine Appearance (Clear) Urine Blood (Negative) Ur Leukocyte Esterase (Negative) Urine RBC (0-5) /hpf Urine WBC (0-5) /hpf Urine WBC Clumps (None) /hpf Urine Bacteria (None) /hpf Urine Mucus (None) /hpf 04/16/20 04/16/20 Range/Units 11:15 12:45 POC Glucose (mg/dL) 229 H (75-99) mg/dL Urine Appearance Cloudy H (Clear) Urine Blood Small H (Negative) Ur Leukocyte Esterase Large H (Negative) Urine RBC 8 H (0-5) /hpf Urine WBC 160 H (0-5) /hpf Urine WBC Clumps Many H (None) /hpf Urine Bacteria Many H (None) /hpf Urine Mucus Rare H (None) /hpf Assessment and Plan Plan: 1. Acute respiratory failure, likely related to pulmonary edema requiring transfer to ICU, intubation and mechanical ventilation, currently patient is extubated and tolerating well she is receiving IV Lasix and receiving oxygen via nasal cannula 2. CKD stage 3 Will consult nephrology for possible outpatient follow-up for Procrit injections 3. fluid overload with shortness of breath after 1 unit red blood cell transfusion 4. Underlying history of hypertension 5. Underlying history of hyperlipidemia 6. Underlying history of COPD 7. Underlying history of insulin-dependent diabetes mellitus 8. surgery partial colectomy for colon mass, postoperative day #3 9. Atrial fibrillation with rapid ventricular response patient was started on amiodarone drip, currently off amiodarone Continue with current management, prognosis is guarded due to advanced age and multiple medical problems will follow closely
[2020-04-16] MEDS: CIPROFLOXACIN HCL 250 MG TAB PO SCH (17:02)
[2020-04-16 17:11] LABS: Glucose,Whole Blood 132 mg/dL (75-99)
[2020-04-16 21:04] LABS: Glucose,Whole Blood 145 mg/dL (75-99)
[2020-04-16] MEDS: SERAX PO PRN (21:06)
[2020-04-16] MEDS: SODIUM CHLORIDE 0.9% 500 ML 500 ML IV SCH (22:47)
[2020-04-17] MEDS: INSULIN ASPART (NovoLOG) 100 UNIT/ML VIAL SQ SCH ×3 (02:14→13:05)
[2020-04-17 02:15] LABS: Glucose,Whole Blood 110 mg/dL (75-99)
[2020-04-17 07:10] LABS: Glucose,Whole Blood 110 mg/dL (75-99)
[2020-04-17 08:07] LABS: Albumin 2.7 g/dL (3.5-5.0); Calcium 8.4 mg/dL (8.4-10.2); Potassium 4.4 mmol/L (3.5-5.1); Total Bilirubin 0.4 mg/dL (0.2-1.3); Total Protein 5.9 g/dL (6.3-8.2)
[2020-04-17 08:17] LABS: Anisocytosis Moderate; Basophils # (A) 0.1 k/uL (0-0.2); Basophils % (A) 1 %; Eosinophils # (A) 0.7 k/uL (0-0.7); Eosinophils % (A) 5 %; HGB 9.6 gm/dL (11.4-16.0); Hypochromasia Marked; Lymphocytes # (A) 1.9 k/uL (1.0-4.8); Lymphocytes % (A) 15 %; MCH 24.9 pg (25.0-35.0); MCHC 29.9 g/dL (31.0-37.0); MCV 83.2 fL (80.0-100.0); Mean Platelet Volume 8.1; Microcytosis Slight; Monocytes # (A) 0.9 k/uL (0-1.0); Monocytes % (A) 7 %; Neutrophils % (A) 71 %; Platelet Count 536 k/uL (150-450); RBC 3.85 m/uL (3.80-5.40); RDW 23.7 % (11.5-15.5); WBC 12.8 k/uL (3.8-10.6)
[2020-04-17] MEDS: FUROSEMIDE 10 MG/ML 2 ML VIAL IV SCH (08:22)
[2020-04-17] MEDS: METOPROLOL TARTRATE 50 MG TAB PO SCH (08:23)
[2020-04-17] MEDS: HEPARIN SODIUM,PORCINE 5,000 UNIT/ML 1 ML VIAL SQ SCH (08:23)
[2020-04-17] MEDS: PANTOPRAZOLE 40 MG/10 ML VIAL IVP SCH (08:23)
[2020-04-17] MEDS: amLODIPine 5 MG TAB PO SCH (08:23)
[2020-04-17] MEDS: IPRATROPIUM 0.5 MG/2.5 ML NEBU INHALATION SCH ×2 (08:40→11:35)
[2020-04-17] MEDS ORDERED: CYANOCOBALAMIN 1,000 MCG/ML 1 ML VIAL IM SCH (09:00)
--- NOTE | 2020-04-17 09:04 | P.DS ---
Providers Date of admission: 03/28/20 03:54 Expected date of discharge: 04/17/20 Attending physician: Dai Bacon Consults: 03/28/20 09:40 Consult Physician Routine Consulting Provider: Kristy Cha Consult Reason/Comments: anemia Do you want consulting provider notified?: Yes 03/28/20 09:41 Consult Physician Routine Consulting Provider: Beny Tsai Consult Reason/Comments: anemia Do you want consulting provider notified?: Yes 03/28/20 13:44 Consult Physician Routine Consulting Provider: Evita Cagle Consult Reason/Comments: clearance for EGD/Colonoscopy, known to patient Do you want consulting provider notified?: Yes 03/30/20 13:39 Consult Physician Routine Consulting Provider: Sander Govea Consult Reason/Comments: colon mass, severe esophageal stricture (consider PEG tube) Do you want consulting provider notified?: Yes 04/01/20 12:05 Consult Physician Routine Consulting Provider: Xavi Warner Consult Reason/Comments: surgical clearance Do you want consulting provider notified?: Yes 04/04/20 22:29 Consult Physician Stat Consulting Provider: Fiona Albarran Consult Reason/Comments: ICU manangement Do you want consulting provider notified?: Already Contacted 04/13/20 11:17 Consult Physician Routine Consulting Provider: Te Cerrato Consult Reason/Comments: possible rehab admission Do you want consulting provider notified?: Yes Primary care physician: Dai Bacon [facility] Course: Diagnosis on discharge: 1. Acute respiratory failure, likely related to pulmonary edema requiring transfer to ICU, intubation and mechanical ventilation, currently patient is extubated and tolerating well she is receiving IV Lasix and receiving oxygen via nasal cannula 2. CKD stage 3 Will consult nephrology for possible outpatient follow-up for Procrit injections 3. fluid overload with shortness of breath after 1 unit red blood cell transfusion 4. Underlying history of hypertension 5. Underlying history of hyperlipidemia 6. Underlying history of COPD 7. Underlying history of insulin-dependent diabetes mellitus 8. surgery partial colectomy for colon mass 9. Atrial fibrillation with rapid ventricular response patient was started on amiodarone drip, currently off amiodarone, patient is maintained on metoprolol heart rate is well-controlled. 10. Urinary tract infection patient started on Cipro orally. Hospital course: Sonal Ulloa is an 89-year-old female patient who presented to the emergency department today for evaluation of low hemoglobin. Patient is currently a resident at [facility] the [facility]. She had labs performed yesterday and hemoglobin was 6.1. she was sent to [facility] emergency room for evaluation , she received 1 unit of red blood cell transfusion in the emergency room and she started developing shortness of breath repeat hemoglobin was 9.1 patient has a known history of iron deficiency anemia . She was admitted to medical floor gastroenterology consultation and hematology consultation were requested for evaluation of chronic anemia . 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 Patient is otherwise stable there is no fever or chills no headache or dizziness no chest pain no shortness of breath no cough no nausea or vomiting no abdominal pain no diarrhea and no urinary symptoms. On 03/31/2020 patient was seen and examined on the medical floor, there is no fever or chills no headache or dizziness no chest pain no shortness of breath no cough no nausea or vomiting no dominant pain nor diarrhea no burning with urination no frequency or urgency no hematuria, hemoglobin today is 7.6 white blood count 8.0 potassium 3. . On 04/01/2020 patient was seen and examined on the medical floor she is alert and oriented 3 in no apparent distress she is very hard of hearing, she denies any pain or discomfort at this time there is no chest pain or shortness of breath no cough no nausea or vomiting no abdominal pain no diarrhea no blood in the stools no burning with urination no frequency or urgency and no hematuria On 04/02/2020 patient was seen and examined on the medical floor she is feeling well there is no fever or chills no headache or dizziness no chest pain no shortness of breath no cough no nausea or vomiting no abdominal pain no diarrhea no burning with urination no frequency or urgency no hematuria she is scheduled for surgery tomorrow 04/03/2020 patient was seen and examined on the medical floor she is alert and oriented 3 in no apparent distress there is no fever or chills no headache or dizziness no chest pain no shortness of breath no cough no nausea or vomiting no abdominal pain no diarrhea no burning with urination no frequency or urgency no hematuria patient is going for surgery today. 04/04/2020 patient was seen and examined on the medical floor she is alert, confused, in no apparent distress there is no fever or chills no headache or dizziness no chest pain no shortness of breath no cough no nausea or vomiting no abdominal pain no diarrhea no burning with urination no frequency or urgency no hematuria patient is post op day #1 On 04/05/2020 Patient was seen and examined in the ICU, events from last night noted, patient developed worsening shortness of breath and tachypnea, [facility] was called and patient was transferred to ICU she was intubated and started on mechanical ventilation, at this time patient is intubated sedated maintained on mechanical ventilation, maintained on levophed for pressure support On 04/06/2020, the patient is intubated and maintained on a mechanical ventilator. The blood gases from this morning showed a pH of 7.47 with a pCO2 of 40 and pO2 115. white cell count is at 11 with a hemoglobin of 8.7. the patient went into atrial fibrillation with rapid ventricular response and the patient was started on a amiodarone drip for rate control. Cardiology and critical care following. On 04/07/2020 patient was seen and examined in the ICU she is intubated sedated maintained on mechanical ventilation, ABGs this morning pH 7.33 pCO2 49 pO2 125 white blood count 10.1 hemoglobin 8.3 platelet count 244 BUN 27 creatinine 1.32 plan for today is to try to wean her off ventilation and extubate her if she is doing well, yesterday she had an episode of atrial fibrillation with rapid ventricular response she was seen by cardiology and she had amiodarone drip, patient is off amiodarone drip at this time. I had a prolonged discussion over the phone with patient's daughter Anai, all questions were answered. On 04/08/2020 patient was seen and examined in the ICU she is extubated she is maintained on oxygen via nasal cannula, and tolerating well, she is sitting up in a chair, she is very hard of hearing and and able to answer questions, nurse stated that she failed swallow evaluation, she will be maintained on TPN until Friday when speech therapy is available, there is no fever or chills no headache or dizziness no chest pain no shortness of breath no cough no nausea or vomiting no abdominal pain no diarrhea. On 04/09/2020 patient was seen and examined in the ICU, she is alert responsive in no apparent distress, there is no fever or chills no headache or dizziness no chest pain no shortness of breath no cough no nausea or vomiting she has some abdominal pain no burning with urination no frequency or urgency and no hematuria, patient is maintained on oxygen via nasal cannula and is tolerating well at this time On 04/10/2020 patient was seen and examined in the ICU she is very hard of hearing, she is sitting up in a chair and maintained on oxygen at 3 L via nasal cannula and tolerating well, there is no fever or chills no headache or dizziness no chest pain no shortness of breath at rest no cough, no nausea or vomiting no abdominal pain and no urinary symptoms, review of system is very limited due to patient hearing issues. On 04/11/2020 patient was seen and examined in the ICU she is very hard of hearing which limits the review of system without she is alert and oriented in no apparent distress there is no fever or chills she denies any chest pain or shortness of breath she is maintained on oxygen via nasal cannula she is complaining of some abdominal pain however she is tolerating diet well although she is eating less than 50% of her meals there is blood in the stool. On 04/12/2020 patient was seen and examined in the ICU she is alert slightly confused in no apparent distress she is very hard of hearing she is eating her meal was 1 on 1 help there is no fever or chills no headache or dizziness no chest pain no shortness of breath no cough no nausea or vomiting no abdominal pain no diarrhea no burning with urination no frequency or urgency and no hematuria. On 04/13/2020 patient was seen and examined she is alert and oriented 3 in no apparent distress, there is no fever or chills no headache or dizziness no chest pain no shortness of breath no cough no nausea or vomiting no abdominal pain no diarrhea, Pittman catheter is in, patient is tolerating oral diet, she is maintained on IV Lasix and IV iron at this time On 04/14/2020 patient was seen and examined on the medical floor she is alert and responsive in no apparent distress she is tolerating diet well, there is no fever or chills no headache or dizziness no chest pain no shortness of breath no cough no nausea or vomiting no abdominal pain no diarrhea Pittman catheter is in, patient is still maintained on IV Lasix. On 04/15/2020 patient was seen and examined on the medical floor she is alert and responsive in no apparent distress, she is complaining of abdominal pain she is still receiving IV Lasix, Pittman catheter is still end will discontinue Pittman catheter and check bladder scan, patient is improving gradually with anticipated transfer back to [facility] on Friday. On 04/16/2020 patient was seen and examined on the medical floor she is alert and oriented 3 in no apparent distress there is no fever or chills no headache or dizziness no chest pain no shortness of breath no cough no nausea or vomiting no abdominal pain no diarrhea patient refused to have her Pittman catheter removed yesterday she was counseled in length today she is willing at this time to have her catheter removed, there is evidence of urinary tract infection at this time On 04/17/2020 patient was seen and examined on the medical floor, she is alert and oriented in no distress, she is very hard of hearing, no specific complaints could be elicited at this time, patient is afebrile, white blood count is slightly more elevated today, patient has evidence of urinary tract infection, she was started on Cipro by mouth yesterday, Pittman catheter was removed, urine culture is still pending. Patient is currently stable for discharge to a snf for rehab. Patient Condition at Discharge: Serious Plan - Discharge Summary New Discharge Prescriptions: New Ciprofloxacin HCl [Cipro] 250 mg PO Q18H tab Metoprolol Tartrate [Lopressor] 50 mg PO BID tab HYDROcodone/APAP 5-325MG [Lyme 5-325] 1 each PO Q6HR PRN tab PRN Reason: Pain amLODIPine [Norvasc] 5 mg PO BID tab INSULIN ASPART (NovoLOG) [NovoLOG (formulary)] 0 unit SQ [id number] vial ALPRAZolam [Xanax] 0.25 mg PO HS PRN tab PRN Reason: Anxiety Continue Montelukast [Singulair] 10 mg PO HS@2099 Fluticasone/Salmeterol [Advair 250-50 Diskus] 1 puff INHALATION RT-BID@00,2099 Sennosides [Senna] 8.6 mg PO DAILY@0900 Nitroglycerin Sl Tabs [Nitrostat] 0.4 mg SUBLINGUAL Q5M PRN #25 tab PRN Reason: Chest Pain Acetaminophen [Tylenol] 1,000 mg PO Q4H PRN PRN Reason: Pain Ferrous Sulfate [Feosol] 325 mg PO BID@0900,1700 bisacodyL [Dulcolax] 10 mg RECTAL Q72H PRN PRN Reason: Constipation Furosemide [Lasix] 40 mg PO DAILY@0900 Insulin Glargine,Hum.rec.anlog [Lantus Solostar] 8 unit SQ HS@2099 Isosorbide Mononitrate ER [Imdur] 30 mg PO DAILY@0900 Pantoprazole [Protonix] 40 mg PO BID@09,2099 Tiotropium [place] [Spiriva] 1 cap INHALATION RT-DAILY@1700 Discontinued Metoprolol Tartrate [Lopressor] 100 mg PO BID@0900,2099 HYDROcodone/APAP 5-325MG [Lyme 5-325] 1 tab PO BID PRN #120 tab PRN Reason: Pain Atorvastatin [Lipitor] 40 mg PO HS@2099 Oxazepam [Serax] 15 mg PO HS Discharge Medication List Montelukast [Singulair] 10 mg PO HS@209905/17/17 [History] Fluticasone/Salmeterol [Advair 250-50 Diskus] 1 puff INHALATION RT-BID@0900,209905/18/17 [History] Sennosides [Senna] 8.6 mg PO DAILY@0900 07/18/17 [History] Nitroglycerin Sl Tabs [Nitrostat] 0.4 mg SUBLINGUAL Q5M PRN #25 tab 07/23/17 [Rx] Acetaminophen [Tylenol] 1,000 mg PO Q4H PRN 05/14/18 [History] Ferrous Sulfate [Feosol] 325 mg PO BID@0900,1700 11/27/19 [History] Furosemide [Lasix] 40 mg PO DAILY@0900 03/27/20 [History] Insulin Glargine,Hum.rec.anlog [Lantus Solostar] 8 unit SQ HS@209903/27/20 [History] Isosorbide Mononitrate ER [Imdur] 30 mg PO DAILY@0900 03/27/20 [History] Pantoprazole [Protonix] 40 mg PO BID@0900,2100 03/27/20 [History] Tiotropium [place] [Spiriva] 1 cap INHALATION RT-DAILY@1700 03/27/20 [History] bisacodyL [Dulcolax] 10 mg RECTAL Q72H PRN 03/27/20 [History] ALPRAZolam [Xanax] 0.25 mg PO HS PRN tab 04/17/20 [Rx] Ciprofloxacin HCl [Cipro] 250 mg PO Q18H tab 04/17/20 [Rx] HYDROcodone/APAP 5-325MG [Lyme 5-325] 1 each PO Q6HR PRN tab 04/17/20 [Rx] INSULIN ASPART (NovoLOG) [NovoLOG (formulary)] 0 unit SQ [id number] vial 04/17/20 [Rx] Metoprolol Tartrate [Lopressor] 50 mg PO BID tab 04/17/20 [Rx] amLODIPine [Norvasc] 5 mg PO BID tab 04/17/20 [Rx] Follow up Appointment(s)/Referral(s): Beny Tsai MD [STAFF PHYSICIAN] - 4 Weeks [facility], [NON-STAFF] - As Needed Dai Bacon MD [Primary Care Provider] - 1-2 days Activity/Diet/Wound Care/Special Instructions: Weekly CBC. Aranesp 40 mg subcutaneously weekly for hemoglobin less than 11 for anemia of chronic kidney disease. 1000mcg B12 IM monthly for functional B12 deficit 1 month follow-up with [facility] to reevaluate iron studies.
[2020-04-17 10:59] LABS: Glucose,Whole Blood 238 mg/dL (75-99)
[2020-04-17] MEDS: CIPROFLOXACIN HCL 250 MG TAB PO SCH (13:05)
[2020-04-17 14:19] VITALS: BP 138/62; PULSE 77; RESP 16; TEMP 97.7
--- NOTE | 2020-04-17 14:41 | P.PN ---
Subjective Progress Note Date: 04/17/20 Principal diagnosis: Anemia secondary to microcytic hypochromic anemia The patient is seen today 03/30/2020 in follow-up on the selective care unit. She is currently resting comfortably in bed. Awake and alert in no acute distress. Denies any worsening shortness of breath cough or congestion. No noted bleeding. White count 8.6. Hemoglobin 7.9. Sodium 136. Potassium 3.8. Creatinine 1.46. She is status post 1 unit of packed red blood cells this admission. Plan is for EGD/colonoscopy today. On 03/31/2020 patient seen in follow-up on selective care unit, she is awake and alert, in no acute distress, patient is extremely hard of hearing which makes communicating with her very difficult. Her breathing is comfortable, she is currently on 2 L of oxygen with a pulse ox of 99 200%, lung sounds are clear. No rhonchi, no wheezing. Yesterday patient could not complete her EGD related to stricture, and procedure was aborted, colonoscopy revealed a cecal mass, stat us post biopsies. The mass was suspicious for neoplasm. CT of abdomen and pelvis has been completed showing soft tissue at the level of the cecum, and nonspecific pulmonary nodularity, with 8 mm nodular density in the region of the lingula as well as the 1.5 cm nodular density in the region of the right middle lobe which could be postinflammatory in nature. Dedicated computed tomography scan of the chest was advised. On 04/03/2020 patient seen in follow-up on selective care unit, she is sitting up in the chair, in no acute distress, she is currently on 2 L of oxygen pulse ox of 99%, hemodynamically stable, she is afebrile, her abdomen is soft, although somewhat distended. 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 His labs have been reviewed, with blood cell count is 9.2, hemoglobin is 9.7. Patient is status post transfusion with 2 units of packed red blood cells this admission. Denies any chest pain, she does admit to being somewhat short of breath, lung sounds reveal faint wheezes in the upper lobes. He is on breathing treatments, Symbicort, she is on maintenance dose of oral Lasix. Patient has not had any new chest x-rays since admission On 04/04/2020 patient seen in follow-up on selective care unit, she status post right colectomy, this is postoperative day 1. Patient is complaining of a lot of abdominal incisional pain. She is on epidural infusion with bupivacaine and Dilaudid currently running at 5 ML per hour. IV D5 half-normal saline with 20 of potassium at 125 ML per hour. Abdomen is soft, she denies any nausea or vomiting. She denies having much of an appetite. She refused her morning tray. Bowel sounds are active 4, but she has not passed any bowel movement or passed gas, mid abdominal incision is clean dry and intact, covered with surgical dressing with minimal amount of sanguinous drainage which is old. Today's labs have been reviewed, showing white blood cell count of 11.4, hemoglobin is 9.2, serum sodium is 135, the rest of electrolytes were within normal limits, BUN is 24 creatinine is 0.91. Patient had some mild confusion last night, she is answering questions appropriately, however patient is very hard of hearing, she is answering basic questions appropriately, does not seem to be confused this morning. Vital signs are stable. She is on 2 L of oxygen a pulse ox of 99%. Breathing is comfortable, low-grade fever this morning, with a temp of 99.3, and was afebrile. On 04/13/2020 patient seen in follow-up in the intensive care unit, she has been an overflow for selective care unit, she has been stable in the last 24 hours, she is awake and alert, oriented 3, denies any specific complaints, she is currently on 2 L of oxygen and the pulse ox of 97%, denies any shortness of breath, she is in sinus mechanism with a controlled rate. She's had no fever or chills, she is tolerating regular diet. Patient is status post right colectomy with small superficial wound infection, she is receiving local wound care. Surgery is following, several heladio have been removed and small infected seroma was expressed. Today's labs have been reviewed, showing white blood cell count of 12.9, hemoglobin of 9.5, electrolytes were within normal limits, BUN of 47, creatinine is 1.19, alk phos was 194, albumin is 2.9. Last chest x-ray was done on 04/11/2020 showing pulmonary vascular congestion, small bilateral pleural effusions. However her oxygenation has remained stable, patient remains on IV Lasix at 20 mg twice daily. She is maintaining negative fluid balance. On 04/17/2020 patient seen in follow-up on general medical oncology floor. She is awake and alert, she is resting comfortably in bed, denies any acute distress, she is on room air, her pulse ox is 96%, she's been afebrile, vital signs have been stable, denies any worsening dyspnea. Her last chest x-ray was done on 04/14/2020 showing bilateral infiltrates and pleural effusion, patient is on a daily dose of IV Lasix at 20 mg. She is in -900 mL fluid balance over the last 24 hours, no lower extremity swelling. Patient is oriented 3, she is answering questions appropriately, she denies any fever chills, her breathing is comfortable, no cough or congestion, no nausea vomiting or diarrhea. Patient's Pittman catheter was discontinued yesterday and apparently patient is having some urinary retention and for that reason urinary catheter will be replaced. Otherwise no acute events overnight, she is planning is in progress for discharge to [facility] today Objective - Vital Signs Vital signs: Vital Signs Temp 97.7 F 04/17/20 11:24 Pulse 80 04/17/20 11:43 Resp 16 04/17/20 11:24 BP 138/62 04/17/20 11:24 Pulse Ox 96 04/17/20 11:24 Intake & Output 04/16/20 04/17/20 04/17/20 18:59 06:59 18:59 Intake Total 160 240 120 Output Total 900 400 750 Balance -740 160 -630 Intake: IV 160 120 Sodium Chloride 0.9% 500 160 120 ml 500 ml @ 20 mls/hr IV .Q24H [facility]RY Rx#:[id number] Intake, IV Titration 240 Amount Sodium Chloride 0.9% 500 240 ml 500 ml @ 20 mls/hr IV .Q24H [facility]RY Rx#:[id number] Output: Urine 900 400 750 Uretheral (Pittman) 650 400 Other: Voiding Method Indwelling Catheter Toilet # Voids 0 # Bowel Movements 1 ABP, PAP, CO, CI - Last Documented Arterial Blood Pressure 137/45 - Exam GENERAL EXAM: Awake and alert, very pleasant, 89-year-old white female on 2 L of oxygen with pulse ox of 96%, comfortable in no apparent distress. Patient is extremely hard of hearing. HEAD: Normocephalic/atraumatic. EYES: Normal reaction of pupils, equal size. Conjunctiva pink, sclera white. NOSE: Clear with pink turbinates. THROAT: No erythema or exudates. NECK: No masses, no JVD, no thyroid enlargement, no adenopathy. CHEST: No chest wall deformity. Symmetrical expansion. LUNGS: Equal air entry with no crackles, wheeze, rhonchi or dullness. CVS: Regular rate and rhythm, normal S1 and S2, no gallops, systolic murmur loudest at the right sternal border, second intercostal space consistent with aortic stenosis, no rubs ABDOMEN: Soft, nontender. No hepatosplenomegaly, normal bowel sounds, no guardi ng or rigidity. EXTREMITIES: No clubbing, no cyanosis, 2+ pulses and upper and lower extremities. Mid abdominal incision, covered with a surgical dressing. Bowel sounds are present, 4. MUSCULOSKELETAL: Muscle strength and tone normal. SPINE: No scoliosis or deformity SKIN: No rashes CENTRAL NERVOUS SYSTEM: Awake and alert, oriented 3, No focal deficits, tone is normal in all 4 extremities. - Labs CBC & Chem 7: 04/17/20 06:17 04/17/20 06:17 Labs: Abnormal Lab Results - Last 24 Hours (Table) 04/16/20 04/16/20 04/17/20 Range/Units 17:10 20:51 02:12 WBC (3.8-10.6) k/uL Hgb (11.4-16.0) gm/dL Hct (34.0-46.0) % MCH (25.0-35.0) pg MCHC (31.0-37.0) g/dL RDW (11.5-15.5) % Plt Count (150-450) k/uL Neutrophils # (1.3-7.7) k/uL BUN (7-17) mg/dL POC Glucose (mg/dL) 132 H 145 H 110 H (75-99) mg/dL Alkaline Phosphatase (38-126) U/L Total Protein (6.3-8.2) g/dL Albumin (3.5-5.0) g/dL 04/17/20 04/17/20 04/17/20 Range/Units 06:17 06:17 07:07 WBC 12.8 H (3.8-10.6) k/uL Hgb 9.6 L (11.4-16.0) gm/dL Hct 32.0 L (34.0-46.0) % MCH 24.9 L (25.0-35.0) pg MCHC 29.9 L (31.0-37.0) g/dL RDW 23.7 H (11.5-15.5) % Plt Count 536 H (150-450) k/uL Neutrophils # 9.0 H (1.3-7.7) k/uL BUN 30 H (7-17) mg/dL POC Glucose (mg/dL) 110 H (75-99) mg/dL Alkaline Phosphatase 137 H (38-126) U/L Total Protein 5.9 L (6.3-8.2) g/dL Albumin 2.7 L (3.5-5.0) g/dL 04/17/20 Range/Units 10:57 WBC (3.8-10.6) k/uL Hgb (11.4-16.0) gm/dL Hct (34.0-46.0) % MCH (25.0-35.0) pg MCHC (31.0-37.0) g/dL RDW (11.5-15.5) % Plt Count (150-450) k/uL Neutrophils # (1.3-7.7) k/uL BUN (7-17) mg/dL POC Glucose (mg/dL) 238 H (75-99) mg/dL Alkaline Phosphatase (38-126) U/L Total Protein (6.3-8.2) g/dL Albumin (3.5-5.0) g/dL Microbiology - Last 24 Hours (Table) 04/16/20 12:45 Urine Culture - Preliminary Urine,Voided Assessment and Plan Plan: Assessment: #1. Acute hypoxic respiratory failure secondary to acute pulmonary edema and diastolic congestive heart failure with valvular heart disease and severe aortic stenosis #2. Severe valvular heart disease with severe aortic stenosis and moderate severe mitral regurgitation #3. Moderately severe pulmonary hypertension #4. Cecal mass, status post colectomy, postoperative day #14, new diagnosis of early stage adenocarcinoma of the colon #5. Coronary artery disease with previous coronary artery PCI and stenting #6. History of esophageal stricture #7. Benign essential hypertension #8. History of TIA #9. Suspect underlying interstitial lung disease based on the chest x-ray findings #10. New-onset atrial fibrillation with RVR, resolved, and patient is currently in sinus rhythm #11. Hearing problems #13. Diabetes mellitus #14. Chronic anemia Plan: Patient is doing well, clinically stable, no fever or chills, no specific complaints, no worsening dyspnea, cough or congestion, increase activity as tolerated, she is tolerating diet, patient is anticipated to be discharged to [facility] on the [facility] today I performed a history & physical examination of the patient and discussed their management with my nurse practitioner, Josephine Winkler. I reviewed the nurse practitioner's note and agree with the documented findings and plan of care. Lung sounds are positive for clear diminished at bases. The findings and the impression was discussed with the patient. I attest to the documentation by the nurse practitioner. Time with Patient: Less than 30
--- NOTE | 2020-04-17 14:52 | P.PN ---
Subjective Progress Note Date: 04/17/20 Principal diagnosis: Microcytic, hypochromic anemia, functional B12 deficiency, T2 colon Adenocarcinoma In follow-up today patient is stable, no nausea, chest pain, difficulty in breathing or bleeding. Objective - Vital Signs Vital signs: Vital Signs Temp 97.7 F 04/17/20 11:24 Pulse 80 04/17/20 11:43 Resp 16 04/17/20 11:24 BP 138/62 04/17/20 11:24 Pulse Ox 96 04/17/20 11:24 Intake & Output 04/16/20 04/17/20 04/17/20 18:59 06:59 18:59 Intake Total 160 240 120 Output Total 900 400 750 Balance -952 -843 -099 Intake: IV 160 120 Sodium Chloride 0.9% 500 160 120 ml 500 ml @ 20 mls/hr IV .Q24H [facility] Rx#:[id number] Intake, IV Titration 240 Amount Sodium Chloride 0.9% 500 240 ml 500 ml @ 20 mls/hr IV .Q24H [facility] Rx#:[id number] Output: Urine 900 400 750 Uretheral (Pittman) 650 400 Other: Voiding Method Indwelling Catheter Toilet # Voids 0 # Bowel Movements 1 ABP, PAP, CO, CI - Last Documented Arterial Blood Pressure 137/45 - Constitutional General appearance: Present: average body habitus, cooperative, no acute distress - EENT Eyes: Present: anicteric sclerae, EOMI ENT: Present: hard of hearing - Respiratory Details: Respirations even and unlabored - Musculoskeletal Musculoskeletal: Present: generalized weakness - Psychiatric Psychiatric: Present: A&O x's 3, appropriate affect, intact judgment & insight - Labs CBC & Chem 7: 04/17/20 06:17 04/17/20 06:17 Labs: Abnormal Lab Results - Last 24 Hours (Table) 04/16/20 04/16/20 04/17/20 Range/Units 17:10 20:51 02:12 WBC (3.8-10.6) k/uL Hgb (11.4-16.0) gm/dL Hct (34.0-46.0) % MCH (25.0-35.0) pg MCHC (31.0-37.0) g/dL RDW (11.5-15.5) % Plt Count (150-450) k/uL Neutrophils # (1.3-7.7) k/uL BUN (7-17) mg/dL POC Glucose (mg/dL) 132 H 145 H 110 H (75-99) mg/dL Alkaline Phosphatase (38-126) U/L Total Protein (6.3-8.2) g/dL Albumin (3.5-5.0) g/dL 04/17/20 04/17/20 04/17/20 Range/Units 06:17 06:17 07:07 WBC 12.8 H (3.8-10.6) k/uL Hgb 9.6 L (11.4-16.0) gm/dL Hct 32.0 L (34.0-46.0) % MCH 24.9 L (25.0-35.0) pg MCHC 29.9 L (31.0-37.0) g/dL RDW 23.7 H (11.5-15.5) % Plt Count 536 H (150-450) k/uL Neutrophils # 9.0 H (1.3-7.7) k/uL BUN 30 H (7-17) mg/dL POC Glucose (mg/dL) 110 H (75-99) mg/dL Alkaline Phosphatase 137 H (38-126) U/L Total Protein 5.9 L (6.3-8.2) g/dL Albumin 2.7 L (3.5-5.0) g/dL 04/17/20 Range/Units 10:57 WBC (3.8-10.6) k/uL Hgb (11.4-16.0) gm/dL Hct (34.0-46.0) % MCH (25.0-35.0) pg MCHC (31.0-37.0) g/dL RDW (11.5-15.5) % Plt Count (150-450) k/uL Neutrophils # (1.3-7.7) k/uL BUN (7-17) mg/dL POC Glucose (mg/dL) 238 H (75-99) mg/dL Alkaline Phosphatase (38-126) U/L Total Protein (6.3-8.2) g/dL Albumin (3.5-5.0) g/dL Microbiology - Last 24 Hours (Table) 04/16/20 12:45 Urine Culture - Preliminary Urine,Voided Assessment and Plan (1) Microcytic hypochromic anemia Narrative/Plan: Multifactorial including nutritional deficiencies and gastrointestinal losses from colon adenocarcinoma. Patient has received iron supplementation previously. Recommend continuing iron supplementation and follow-up with Hematology in about one month. Status: Chronic Priority: Medium Code(s): D50.9 - IRON DEFICIENCY ANEMIA, UNSPECIFIED SNOMED Code(s): 76421518 (2) B12 nutritional deficiency Narrative/Plan: Elevated methylmalonic acid with a low-normal B12 most suggestive of functional B12 deficiency. B12 ordered. Would recommend 1000 g intramuscularly daily 5, every other week 2, then monthly. Status: Acute Priority: Medium Code(s): E53.8 - DEFICIENCY OF OTHER SPECIFIED B GROUP VITAMINS SNOMED Code(s): 388647254 (3) Adenocarcinoma of colon Narrative/Plan: Patient had a T2 malignancy, no adjuvant treatment needed. Status: Acute Code(s): C18.9 - MALIGNANT NEOPLASM OF COLON, UNSPECIFIED SNOMED Code(s): 055067028 (4) Iron deficiency anemia Status: Acute Code(s): D50.9 - IRON DEFICIENCY ANEMIA, UNSPECIFIED SNOMED Code(s): 30960657
== END 2020-04-17 14:45 | DRG 329 ==
LOC: EC 20:58 → 3SCARD 03-28 03:54 → 2SICU 04-04 20:40 → 5NMEDONC 04-14 01:53
PROVIDERS: ADMIT Internal Medicine; ATTEND Internal Medicine
PROC: 30233N1 Transfusion of Nonautologous Red Blood Cells into Peripheral Vein, Percutaneous Approach (ICD-10-PCS; 2020-03-28)
PROC: 0DBH8ZX Excision of Cecum, Via Natural or Artificial Opening Endoscopic, Diagnostic (ICD-10-PCS; 2020-03-30)
PROC: 0DJ08ZZ Inspection of Upper Intestinal Tract, Via Natural or Artificial Opening Endoscopic (ICD-10-PCS; 2020-03-30)
PROC: 0DBF0ZZ Excision of Right Large Intestine, Open Approach (ICD-10-PCS; principal; 2020-04-03 11:45)
PROC: 02HV33Z Insertion of Infusion Device into Superior Vena Cava, Percutaneous Approach (ICD-10-PCS; 2020-04-05)
PROC: 0BH17EZ Insertion of Endotracheal Airway into Trachea, Via Natural or Artificial Opening (ICD-10-PCS; 2020-04-05)
PROC: 5A1945Z Respiratory Ventilation, 24-96 Consecutive Hours (ICD-10-PCS; 2020-04-05)
PROC: 3E033XZ Introduction of Vasopressor into Peripheral Vein, Percutaneous Approach (ICD-10-PCS; 2020-04-05)
DX: C18.0 Malignant neoplasm of cecum (principal); I50.33 Acute on chronic diastolic (congestive) heart failure; J96.21 Acute and chronic respiratory failure with hypoxia; C18.2 Malignant neoplasm of ascending colon; I13.0 Hypertensive heart and chronic kidney disease with heart failure and stage 1 through stage 4 chronic kidney disease, or unspecified chronic kidney disease; J44.1 Chronic obstructive pulmonary disease with (acute) exacerbation; J98.11 Atelectasis; M80.88XA Other osteoporosis with current pathological fracture, vertebra(e), initial encounter for fracture; N39.0 Urinary tract infection, site not specified; K43.6 Other and unspecified ventral hernia with obstruction, without gangrene; D50.9 Iron deficiency anemia, unspecified; D53.9 Nutritional anemia, unspecified; E11.22 Type 2 diabetes mellitus with diabetic chronic kidney disease; E53.8 Deficiency of other specified B group vitamins; K22.2 Esophageal obstruction; G89.29 Other chronic pain; M54.9 Dorsalgia, unspecified; H91.90 Unspecified hearing loss, unspecified ear; J84.10 Pulmonary fibrosis, unspecified; Z11.59 Encounter for screening for other viral diseases; I08.3 Combined rheumatic disorders of mitral, aortic and tricuspid valves; Z99.81 Dependence on supplemental oxygen; I27.20 Pulmonary hypertension, unspecified; I25.10 Atherosclerotic heart disease of native coronary artery without angina pectoris; T80.89XA Other complications following infusion, transfusion and therapeutic injection, initial encounter; I25.2 Old myocardial infarction; E78.00 Pure hypercholesterolemia, unspecified; E78.5 Hyperlipidemia, unspecified; F32.9 Major depressive disorder, single episode, unspecified; I44.7 Left bundle-branch block, unspecified; I48.0 Paroxysmal atrial fibrillation; M13.0 Polyarthritis, unspecified; N18.3 Chronic kidney disease, stage 3 (moderate); Z53.8 Procedure and treatment not carried out for other reasons; Z66 Do not resuscitate; Z79.4 Long term (current) use of insulin; Z79.899 Other long term (current) drug therapy; Z82.49 Family history of ischemic heart disease and other diseases of the circulatory system; Z86.73 Personal history of transient ischemic attack (TIA), and cerebral infarction without residual deficits; Z87.440 Personal history of urinary (tract) infections; Z87.891 Personal history of nicotine dependence; Z95.5 Presence of coronary angioplasty implant and graft; Z98.42 Cataract extraction status, left eye; Z98.41 Cataract extraction status, right eye; Z96.1 Presence of intraocular lens; Z60.2 Problems related to living alone; Z87.01 Personal history of pneumonia (recurrent); Z90.79 Acquired absence of other genital organ(s); Z90.721 Acquired absence of ovaries, unilateral; L30.9 Dermatitis, unspecified; R07.9 Chest pain, unspecified; Z88.1 Allergy status to other antibiotic agents; Z88.0 Allergy status to penicillin; Z88.2 Allergy status to sulfonamides; Z88.8 Allergy status to other drugs, medicaments and biological substances
CPT/HCPCS: 36415; 36430; 43235; 45380; 45381; 71045; 71046; 71250; 74176; 80048; 80053; 81001; 81003; 82272; 82330; 82378; 82607; 82668; 82728; 82746; 82805; 83036; 83540; 83550; 83605; 83735; 83921; 84100; 84132; 84478; 85025; 85045; 85610; 85730; 86850; 86880; 86900; 86901; 86920; 87070; 87077; 87086; 87186; 87205; 88305; 88309; 93306; 94002; 94003; 94640; 94660; 94760; 96365; 96366; 96375; 96376; 99291

== ENCOUNTER 2020-05-05 16:12 | Inpatient (IN) | payer MEDICARE, OTHER ==
[2020-05-05] MEDS ORDERED: IOPAMIDOL CONTRAST (ORAL USE) VIAL PO PRN (16:25)
[2020-05-05] MEDS ORDERED: SODIUM CHLORIDE 0.9% 1,000 ML IV STA (16:25)
[2020-05-05] MEDS ORDERED: PANTOPRAZOLE 40 MG/10 ML VIAL IVP STA (16:25)
--- NOTE | 2020-05-05 16:28 | ED ---
General Adult HPI - General Chief complaint: Abdominal Pain Stated complaint: Abd Pain Time Seen by Provider: 05/05/20 16:14 Source: patient, EMS, RN notes reviewed Mode of arrival: ambulatory Limitations: no limitations - History of Present Illness Initial comments: Patient is a pleasant 89-year-old female presenting to the emergency Department with abdominal discomfort and distention. Patient is a poor historian. Patient states he was recently in the hospital with surgery however is unclear why. Patient feels her abdomen is larger than normal. Patient has diffuse discomfort. No vomiting. Patient unclear last bowel movement. - Related Data Home Medications Medication Instructions Recorded Confirmed Montelukast [Singulair] 10 mg PO HS@209905/17/17 03/27/20 Fluticasone/Salmeterol [Advair 1 puff INHALATION RT-BID@899,209905/18/17 03/27/20 250-50 Diskus] Sennosides [Senna] 8.6 mg PO DAILY@0907/18/17 03/27/20 Acetaminophen [Tylenol] 1,000 mg PO Q4H PRN 05/14/18 03/27/20 Ferrous Sulfate [Feosol] 325 mg PO BID@0900,1700 11/27/19 03/27/20 Furosemide [Lasix] 40 mg PO DAILY@0903/27/20 03/27/20 Insulin Glargine,Hum.rec.anlog 8 unit SQ HS@209903/27/20 03/27/20 [Lantus Solostar] Isosorbide Mononitrate ER [Imdur] 30 mg PO DAILY@89903/27/20 03/27/20 Pantoprazole [Protonix] 40 mg PO BID@09,209903/27/20 03/27/20 Tiotropium [place] [Spiriva] 1 cap INHALATION RT-DAILY@169903/27/20 03/27/20 bisacodyL [Dulcolax] 10 mg RECTAL Q72H PRN 03/27/20 03/27/20 Previous Rx's Medication Instructions Recorded Nitroglycerin Sl Tabs [Nitrostat] 0.4 mg SUBLINGUAL Q5M PRN #25 tab 07/23/17 Ciprofloxacin HCl [Cipro] 250 mg PO Q18H tab 04/17/20 HYDROcodone/APAP 5-325MG [[place] 1 each PO Q6HR PRN tab 04/17/20 5-325] INSULIN ASPART (NovoLOG) [NovoLOG 0 unit SQ [id number] vial 04/17/20 (formulary)] Metoprolol Tartrate [Lopressor] 50 mg PO BID tab 04/17/20 Oxazepam 15 mg PO HS PRN 30 Days #30 cap 04/17/20 amLODIPine [Norvasc] 5 mg PO BID tab 04/17/20 Allergies Allergy/AdvReac Type Severity Reaction Status Date / Time adhesive tape Allergy Rash/Hives Verified 05/05/20 16:25 amoxicillin trihydrate Allergy Unknown Verified 05/05/20 16:25 [From Augmentin] clindamycin HCl Allergy Unknown Verified 05/05/20 16:25 [From Cleocin] clindamycin palmitate HCl Allergy Unknown Verified 05/05/20 16:25 [From Cleocin] clindamycin phosphate Allergy Unknown Verified 05/05/20 16:25 [From Cleocin] codeine Allergy Unknown Verified 05/05/20 16:25 nitrofurantoin Allergy Unknown Verified 05/05/20 16:25 [From Macrobid] nitrofurantoin Allergy Unknown Verified 05/05/20 16:25 macrocrystalline [From Macrobid] Penicillins Allergy Unknown Verified 05/05/20 16:25 potassium clavulanate Allergy Unknown Verified 05/05/20 16:25 [From Augmentin] prednisone Allergy Unknown Verified 05/05/20 16:25 quinine Allergy Unknown Verified 05/05/20 16:25 Sulfa (Sulfonamide Allergy Unknown Verified 05/05/20 16:25 Antibiotics) sulfamethoxazole Allergy Unknown Verified 05/05/20 16:25 [From Bactrim] trimethoprim [From Bactrim] Allergy Unknown Verified 05/05/20 16:25 lorazepam [From Ativan] AdvReac Confusion Verified 05/05/20 16:25 Review of Systems ROS Statement: Those systems with pertinent positive or pertinent negative responses have been documented in the HPI. ROS Other: All systems not noted in ROS Statement are negative. Constitutional: Denies: fever Eyes: Denies: eye pain ENT: Denies: ear pain Respiratory: Denies: cough Cardiovascular: Denies: chest pain Endocrine: Denies: fatigue Gastrointestinal: Reports: abdominal pain. Denies: vomiting Genitourinary: Denies: dysuria Musculoskeletal: Denies: back pain Skin: Denies: rash Neurological: Denies: weakness Past Medical History Past Medical History: Atrial Fibrillation, Coronary Artery Disease (CAD), Chest Pain / Angina, Heart Failure, COPD, CVA/TIA, Diabetes Mellitus, GERD/Reflux, Hearing Disorder / Deafness, Hyperlipidemia, Hypertension, Myocardial Infarction (AR), Osteoarthritis (OA), Pneumonia, Renal Disease, Skin Disorder Additional Past Medical History / Comment(s): IDDM type II, frequent pneumonia, aspiration pneumonia with sepsis, renal insufficiency, recurrent UTIs, TIA x 3, difficulty swallowing-crushes meds and puts them in yogurt-past EGD/dilations, anemia, eczema, "lazy bowel" but pt states anymore she goes from diarrhea to constipation easily, generalized arthritis, chronic back pain, hiatal hernia Last Myocardial Infarction Date:: 1998, 09/21/17 History of Any Multi-Drug Resistant Organisms: VRE Date of last positivie culture/infection: 10/07/17 MDRO Source:: VRE URINE Past Surgical History: Bowel Resection, Cholecystectomy, Heart Catheterization With Stent Additional Past Surgical History / Comment(s): cataracts w/lens implants, ectopic with one ovary/tube removed, heart caths :04/30/96 stent to rca, 03/18/2000 stent to mid rca, 07/22/17 stent to lad Past Anesthesia/Blood Transfusion Reactions: Previous Problems w/ Anesthesia Additional Past Anesthesia/Blood Transfusion Reaction / Comment(s): difficulty breathing after anesthesia Date of Last Stent Placement:: 06/2017 Past Psychological History: Depression Smoking Status: Never smoker Past Alcohol Use History: None Reported Past Drug Use History: None Reported - Past Family History Father History Unknown: Yes Family Medical History: Myocardial Infarction (AR) Additional Family Medical History / Comment(s): Father had a AR at the age of 50 yrs. He lived to be 75yrs old. Mother History Unknown: Yes Family Medical History: Myocardial Infarction (AR) Additional Family Medical History / Comment(s): Mother of a AR at about age 80yrs. General Exam Limitations: no limitations General appearance: alert, in no apparent distress Head exam: Present: normocephalic Eye exam: Present: normal appearance Neck exam: Present: normal inspection Respiratory exam: Present: normal lung sounds bilaterally Cardiovascular Exam: Present: regular rate, normal rhythm Expanded Peripheral pulses: 2+: Posterior Tibialis (R), Posterior Tibialis (L) GI/Abdominal exam: Present: soft, distended (Moderate distention), tenderness (Moderate diffuse tenderness), normal bowel sounds. Absent: guarding, rebound, rigid, pulsatile mass Extremities exam: Present: normal inspection. Absent: pedal edema, calf tenderness Neurological exam: Present: alert Psychiatric exam: Present: normal affect, normal mood Skin exam: Present: normal color Course Vital Signs 05/05/20 05/05/20 05/05/20 16:19 17:08 17:30 Temperature 98.2 F Pulse Rate 82 76 80 Respiratory 20 Rate Blood Pressure 129/63 136/68 O2 Sat by Pulse 96 Oximetry 05/05/20 05/05/20 18:00 18:30 Temperature Pulse Rate 73 81 Respiratory Rate Blood Pressure 123/66 O2 Sat by Pulse 100 100 Oximetry Medical Decision Making - Medical Decision Making Patient reevaluated. Patient and family updated. Case was discussed in detail with Dr. Govea who will admit. He agrees with antibiotics. - Lab Data Result diagrams: 05/05/20 16:41 05/05/20 16:41 Lab Results 05/05/20 05/05/20 05/05/20 Range/Units 16:41 16:41 16:41 WBC 7.0 (3.8-10.6) k/uL RBC 4.03 (3.80-5.40) m/uL Hgb 10.2 L (11.4-16.0) gm/dL Hct 34.2 (34.0-46.0) % MCV 84.8 (80.0-100.0) fL MCH 25.2 (25.0-35.0) pg MCHC 29.7 L (31.0-37.0) g/dL RDW 22.7 H (11.5-15.5) % Plt Count 299 (150-450) k/uL Neutrophils % 56 % Lymphocytes % 26 % Monocytes % 7 % Eosinophils % 8 % Basophils % 1 % Neutrophils # 3.9 (1.3-7.7) k/uL Lymphocytes # 1.8 (1.0-4.8) k/uL Monocytes # 0.5 (0-1.0) k/uL Eosinophils # 0.6 (0-0.7) k/uL Basophils # 0.1 (0-0.2) k/uL Hypochromasia Marked Anisocytosis Moderate Microcytosis Slight PT 9.6 (9.0-12.0) sec INR 0.9 (<1.2) APTT 25.2 (22.0-30.0) sec Sodium 135 L (137-145) mmol/L Potassium 5.6 H (3.5-5.1) mmol/L Chloride 101 (98-107) mmol/L Carbon Dioxide 27 (22-30) mmol/L Anion Gap 7 mmol/L BUN 37 H (7-17) mg/dL Creatinine 1.20 H (0.52-1.04) mg/dL Est GFR (CKD-EPI)AfAm 47 (>60 ml/min/1.73 sqM) Est GFR (CKD-EPI)NonAf 41 (>60 ml/min/1.73 sqM) Glucose 102 H (74-99) mg/dL Calcium 9.1 (8.4-10.2) mg/dL Total Bilirubin 0.4 (0.2-1.3) mg/dL AST 34 (14-36) U/L ALT 16 (4-34) U/L Alkaline Phosphatase 105 (38-126) U/L Total Protein 7.3 (6.3-8.2) g/dL Albumin 3.6 (3.5-5.0) g/dL Amylase 86 (30-110) U/L Lipase 150 (23-300) U/L Urine Color Urine Appearance (Clear) Urine pH (5.0-8.0) Ur Specific [place] (1.001-1.035) Urine Protein (Negative) Urine Glucose (UA) (Negative) Urine Ketones (Negative) Urine Blood (Negative) Urine Nitrite (Negative) Urine Bilirubin (Negative) Urine Urobilinogen (<2.0) mg/dL Ur Leukocyte Esterase (Negative) Urine RBC (0-5) /hpf Urine WBC (0-5) /hpf Ur Squamous Epith Cells (0-4) /hpf Urine Bacteria (None) /hpf Urine Mucus (None) /hpf 05/05/20 Range/Units 17:23 WBC (3.8-10.6) k/uL RBC (3.80-5.40) m/uL Hgb (11.4-16.0) gm/dL Hct (34.0-46.0) % MCV (80.0-100.0) fL MCH (25.0-35.0) pg MCHC (31.0-37.0) g/dL RDW (11.5-15.5) % Plt Count (150-450) k/uL Neutrophils % % Lymphocytes % % Monocytes % % Eosinophils % % Basophils % % Neutrophils # (1.3-7.7) k/uL Lymphocytes # (1.0-4.8) k/uL Monocytes # (0-1.0) k/uL Eosinophils # (0-0.7) k/uL Basophils # (0-0.2) k/uL Hypochromasia Anisocytosis Microcytosis PT (9.0-12.0) sec INR (<1.2) APTT (22.0-30.0) sec Sodium (137-145) mmol/L Potassium (3.5-5.1) mmol/L Chloride (98-107) mmol/L Carbon Dioxide (22-30) mmol/L Anion Gap mmol/L BUN (7-17) mg/dL Creatinine (0.52-1.04) mg/dL Est GFR (CKD-EPI)AfAm (>60 ml/min/1.73 sqM) Est GFR (CKD-EPI)NonAf (>60 ml/min/1.73 sqM) Glucose (74-99) mg/dL Calcium (8.4-10.2) mg/dL Total Bilirubin (0.2-1.3) mg/dL AST (14-36) U/L ALT (4-34) U/L Alkaline Phosphatase (38-126) U/L Total Protein (6.3-8.2) g/dL Albumin (3.5-5.0) g/dL Amylase (30-110) U/L Lipase (23-300) U/L Urine Color Light Yellow Urine Appearance Cloudy H (Clear) Urine pH 6.5 (5.0-8.0) Ur Specific [place] 1.008 (1.001-1.035) Urine Protein Trace H (Negative) Urine Glucose (UA) Negative (Negative) Urine Ketones Negative (Negative) Urine Blood Trace H (Negative) Urine Nitrite Negative (Negative) Urine Bilirubin Negative (Negative) Urine Urobilinogen <2.0 (<2.0) mg/dL Ur Leukocyte Esterase Large H (Negative) Urine RBC 5 (0-5) /hpf Urine WBC 94 H (0-5) /hpf Ur Squamous Epith Cells 1 (0-4) /hpf Urine Bacteria Moderate H (None) /hpf Urine Mucus Rare H (None) /hpf - Radiology Data Radiology results: report reviewed (Computed tomography scan of the abdomen and pelvis does show mild wall thickening at the anastomosis of the colon with fat straining suggesting nonspecific mild to moderate colitis. 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
[2020-05-05 16:53] LABS: Anisocytosis Moderate; Basophils # (A) 0.1 k/uL (0-0.2); Basophils % (A) 1 %; Eosinophils # (A) 0.6 k/uL (0-0.7); Eosinophils % (A) 8 %; HCT 34.2 % (34.0-46.0); HGB 10.2 gm/dL (11.4-16.0); Hypochromasia Marked; Lymphocytes # (A) 1.8 k/uL (1.0-4.8); Lymphocytes % (A) 26 %; MCH 25.2 pg (25.0-35.0); MCHC 29.7 g/dL (31.0-37.0); MCV 84.8 fL (80.0-100.0); Mean Platelet Volume 7.1; Microcytosis Slight; Monocytes # (A) 0.5 k/uL (0-1.0); Monocytes % (A) 7 %; Neutrophils # (A) 3.9 k/uL (1.3-7.7); Neutrophils % (A) 56 %; Platelet Count 299 k/uL (150-450); RBC 4.03 m/uL (3.80-5.40); RDW 22.7 % (11.5-15.5)
[2020-05-05 17:08] LABS: Albumin 3.6 g/dL (3.5-5.0); Calcium 9.1 mg/dL (8.4-10.2); Potassium 5.6 mmol/L (3.5-5.1); Total Bilirubin 0.4 mg/dL (0.2-1.3); Total Protein 7.3 g/dL (6.3-8.2)
[2020-05-05 17:14] LABS: INR 0.9 (<1.2); Partial Thromboplastin Time 25.2 sec (22.0-30.0); Prothrombin Time 9.6 sec (9.0-12.0)
[2020-05-05 17:33] LABS: Appearance,Urine Cloudy (Clear); Bacteria,Urine Moderate /hpf; Bilirubin,Urine Negative (Negative); Blood,Urine Trace (Negative); Color,Urine Light Yellow; Glucose,Urine (UA) Negative (Negative); Ketones,Urine Negative (Negative); Leukocyte Esterase,Urine Large (Negative); Mucus,Urine Rare /hpf; Nitrite,Urine Negative (Negative); PH, Urine 6.5 (5.0-8.0); Protein,Urine Trace (Negative); RBC,Urine 5 /hpf (0-5); Specific Gravity,Urine 1.008 (1.001-1.035); Squamous Epithelial Cell,Urine 1 /hpf (0-4); Urobilinogen,Urine <2.0 mg/dL (<2.0); WBC,Urine 94 /hpf (0-5)
--- NOTE | 2020-05-05 18:23 | CT ---
EXAMINATION TYPE: CT abdomen pelvis wo con DATE OF EXAM: 05/05/2020 COMPARISON: 03/31/2020 HISTORY: 89-year-old female abdominal pain CT DLP: 486 mGycm. Automated exposure control for dose reduction was used. TECHNIQUE: Contiguous axial scanning of the abdomen and pelvis without IV contrast. Coronal and sagit nikki reconstructions performed. FINDINGS: Heart is enlarged with extensive coronary artery calcifications. Similar patchy bibasilar opacities, stability from 03/31/2020 suggests chronic postinflammatory etiologies. Moderate atherosclerotic calcification throughout the abdominal aorta and iliac arteries with more se delbert atherosclerotic calcifications and probable narrowing along the proximal left common iliac arter y. Noncontrast appearance of the liver shows punctate calcified granuloma lateral right liver lobe and a couple punctate foci within the spleen as well. 4.0 cm anterior right renal cyst. Nonobstructive 4 mm right renal calculus. Probable 8 mm centrally l ocated left renal cyst. Multiple additional bilateral renal hypodensities suggestive of cysts.. No hydronephrosis. Noncontrast appearance of the liver shows no gross abnormality. No dilated small bowel, free fluid, free air. There seems to be some anterior midline skin heladio and a staple line related to bowel anastomosis i n the right lower quadrant. There is some mild circumferential wall thickening of the colon at the an astomosis, axial image 44. Adjacent fat stranding, refer to axial image 38. No mesenteric or retroperitoneal lymphadenopathy identified. Marked distention of the urinary bladder to 12.8 cm and filling the pelvis from side to side. Uterus anteverted. No abnormal fluid collection in the pelvis or pelvic lymphadenopathy. Ovaries not clearly seen. Bones: Degenerative changes of the hips. Hypertrophic facet arthropathy throughout the lumbar spine. Vertebral body deformities of T9, T10, and L2 are unchanged from 03/31/2010. [place]rup's disease. IMPRESSION: 1. There seems to have been interval midline laparotomy and partial right hemicolectomy with anastom osis at the proximal transverse colon. There is mild circumferential wall thickening of the colon at the anastomosis and adjacent fat stranding suggesting a nonspecific mild to moderate colitis. 2. A 4 mm nonobstructing right renal calculus, atherosclerotic changes with possible severe stenosis proximal left common iliac artery, and redemonstrated marked distention of the urinary bladder. Amado elate for urinary retention and the need for any potential catheterization.
[2020-05-05] MEDS ORDERED: ONDANSETRON 4 MG/2 ML VIAL IVP PRN (19:10)
[2020-05-05] MEDS ORDERED: NALOXONE 0.4 MG/ML 1 ML VIAL IV PRN (19:10)
[2020-05-05] MEDS ORDERED: LEVOFLOXACIN 750MG-D5W PMX 750 MG in DEXTROSE/WATER 1 150ML.BAG IVPB SCH (20:00)
[2020-05-05] MEDS: SODIUM CHLORIDE 0.9% 1,000 ML IV SCH (20:06)
[2020-05-06] MEDS: metroNIDAZOLE-NS PMX 500 MG in SALINE 1 100ML.BAG IVPB SCH ×4 (01:10→23:54)
[2020-05-06] MEDS: SODIUM CHLORIDE 0.9% 1,000 ML IV SCH ×3 (06:27→23:55)
[2020-05-06 07:26] LABS: Glucose,Whole Blood 88 mg/dL (75-99)
[2020-05-06] MEDS: PANTOPRAZOLE 40 MG/10 ML VIAL IV SCH (08:28)
--- NOTE | 2020-05-06 11:07 | P.GSHP ---
History of Present Illness H&P Date: 05/06/20 Chief Complaint: abdominal pain This is an 89-year-old female who's [facility] complaints of abdominal pain. Patient underwent recent right colectomy. Patient's CAT scan shows some possible inflammation of the remaining right colon. Patient states she is currently pain-free. Past Medical History Past Medical History: Atrial Fibrillation, Coronary Artery Disease (CAD), Chest Pain / Angina, Heart Failure, COPD, CVA/TIA, Diabetes Mellitus, GERD/Reflux, Hearing Disorder / Deafness, Hyperlipidemia, Hypertension, Myocardial Infarction ([place]), Osteoarthritis (OA), Pneumonia, Renal Disease, Skin Disorder Additional Past Medical History / Comment(s): IDDM type II, frequent pneumonia, aspiration pneumonia with sepsis, renal insufficiency, recurrent UTIs, TIA x 3, difficulty swallowing-crushes meds and puts them in yogurt-past EGD/dilations, anemia, eczema, "lazy bowel" but pt states anymore she goes from diarrhea to constipation easily, generalized arthritis, chronic back pain, hiatal hernia Last Myocardial Infarction Date:: 1998, 09/21/17 History of Any Multi-Drug Resistant Organisms: VRE Date of last positivie culture/infection: 10/07/17 MDRO Source:: VRE URINE Past Surgical History: Bowel Resection, Cholecystectomy, Heart Catheterization With Stent Additional Past Surgical History / Comment(s): cataracts w/lens implants, ectopic with one ovary/tube removed, heart caths :04/30/96 stent to rca, 03/18/2000 stent to mid rca, 07/22/17 stent to lad Past Anesthesia/Blood Transfusion Reactions: Previous Problems w/ Anesthesia Additional Past Anesthesia/Blood Transfusion Reaction / Comment(s): difficulty breathing after anesthesia Date of Last Stent Placement:: 06/2017 Past Psychological History: Depression Additional Psychological History / Comment(s): Pt resides in an apartment at [facility]. She ambulates with a walker. Her daughter is very helpful and is in an apt above her. Pt has chore person from [place]. She no longer drives, family takes her to [facility] [employer]. She goes up to her daughter's for supper and manages her own medication. Smoking Status: Never smoker Past Alcohol Use History: None Reported Additional Past Alcohol Use History / Comment(s): Patient has history of smoking 2 packs per day started smoking at age 16 Past Drug Use History: None Reported - Past Family History Father History Unknown: Yes Family Medical History: Myocardial Infarction (NC) Additional Family Medical History / Comment(s): Father had a NC at the age of 50 yrs. He lived to be 75yrs old. Mother History Unknown: Yes Family Medical History: Myocardial Infarction (NC) Additional Family Medical History / Comment(s): Mother of a NC at about age 80yrs. Medications and Allergies Home Medications Medication Instructions Recorded Confirmed Type Montelukast [Singulair] 10 mg PO HS@209905/17/17 05/05/20 History Fluticasone/Salmeterol [Advair 1 puff INHALATION RT-BID@899,209905/18/17 05/05/20 History 250-50 Diskus] Sennosides [Senna] 8.6 mg PO DAILY@89907/18/17 05/05/20 History Nitroglycerin Sl Tabs [Nitrostat] 0.4 mg SUBLINGUAL Q5M PRN #25 tab 07/23/17 05/05/20 Rx Acetaminophen [Tylenol] 1,000 mg PO Q4H PRN 05/14/18 05/05/20 History Ferrous Sulfate [Feosol] 325 mg PO BID@0900,1700 11/27/19 05/05/20 History Furosemide [Lasix] 40 mg PO DAILY@89903/27/20 05/05/20 History Isosorbide Mononitrate ER [Imdur] 30 mg PO DAILY@89903/27/20 05/05/20 History Pantoprazole [Protonix] 40 mg PO BID@09,209903/27/20 05/05/20 History Tiotropium [place] [Spiriva] 1 cap INHALATION RT-DAILY@169903/27/20 05/05/20 History bisacodyL [Dulcolax] 10 mg RECTAL Q72H PRN 03/27/20 05/05/20 History Oxazepam 15 mg PO HS PRN 30 Days #30 cap 04/17/20 05/05/20 Rx Darbepoetin [place] [Aranesp] 40 mcg SQ TH 05/05/20 05/05/20 History Glucerna Shake 1 can PO DAILY@89905/05/20 05/05/20 History HYDROcodone/APAP 5-325MG [[place] 1 tab PO Q6H PRN 05/05/20 05/05/20 History 5-325] Insulin Glargine,Hum.rec.anlog 8 unit SQ HS@209905/05/20 05/05/20 History [Basaglar Kwikpen U-100] Metoprolol Tartrate [Lopressor] 50 mg PO BID@0900,209905/05/20 05/05/20 History amLODIPine [Norvasc] 5 mg PO BID@0900,209905/05/20 05/05/20 History Allergies Allergy/AdvReac Type Severity Reaction Status Date / Time adhesive tape Allergy Rash/Hives Verified 05/05/20 20:35 amoxicillin trihydrate Allergy Unknown Verified 05/05/20 20:35 [From Augmentin] clindamycin HCl Allergy Unknown Verified 05/05/20 20:35 [From Cleocin] clindamycin palmitate HCl Allergy Unknown Verified 05/05/20 20:35 [From Cleocin] clindamycin phosphate Allergy Unknown Verified 05/05/20 20:35 [From Cleocin] codeine Allergy Unknown Verified 05/05/20 20:35 nitrofurantoin Allergy Unknown Verified 05/05/20 20:35 [From Macrobid] nitrofurantoin Allergy Unknown Verified 05/05/20 20:35 macrocrystalline [From Macrobid] Penicillins Allergy Unknown Verified 05/05/20 20:35 potassium clavulanate Allergy Unknown Verified 05/05/20 20:35 [From Augmentin] prednisone Allergy Unknown Verified 05/05/20 20:35 quinine Allergy Unknown Verified 05/05/20 20:35 Sulfa (Sulfonamide Allergy Unknown Verified 05/05/20 20:35 Antibiotics) sulfamethoxazole Allergy Unknown Verified 05/05/20 20:35 [From Bactrim] trimethoprim [From Bactrim] Allergy Unknown Verified 05/05/20 20:35 lorazepam [From Ativan] AdvReac Confusion Verified 05/05/20 20:35 Surgical - Exam Vital Signs Temp Pulse Resp BP Pulse Ox 98.2 F 82 20 129/63 96 05/05/20 16:19 05/05/20 16:19 05/05/20 16:19 05/05/20 16:19 05/05/20 16:19 - General well developed, well nourished, no distress - Eyes PERRL - ENT normal pinna - Neck no masses - Respiratory normal expansion - Cardiovascular Rhythm: regular - Abdomen Abdomen: soft, non tender Results - Labs 05/05/20 16:41 05/05/20 16:41 Abnormal Lab Results - Last 24 Hours (Table) 05/05/20 05/05/20 05/05/20 Range/Units 16:41 16:41 17:23 Hgb 10.2 L (11.4-16.0) gm/dL MCHC 29.7 L (31.0-37.0) g/dL RDW 22.7 H (11.5-15.5) % Sodium 135 L (137-145) mmol/L Potassium 5.6 H (3.5-5.1) mmol/L BUN 37 H (7-17) mg/dL Creatinine 1.20 H (0.52-1.04) mg/dL Glucose 102 H (74-99) mg/dL Urine Appearance Cloudy H (Clear) Urine Protein Trace H (Negative) Urine Blood Trace H (Negative) Ur Leukocyte Esterase Large H (Negative) Urine WBC 94 H (0-5) /hpf Urine Bacteria Moderate H (None) /hpf Urine Mucus Rare H (None) /hpf Microbiology - Last 24 Hours (Table) 05/05/20 17:23 Urine Culture - Preliminary Urine,Voided Diabetes panel 05/05/20 Range/Units 16:41 Sodium 135 L (137-145) mmol/L Potassium 5.6 H (3.5-5.1) mmol/L Chloride 101 (98-107) mmol/L Carbon Dioxide 27 (22-30) mmol/L BUN 37 H (7-17) mg/dL Creatinine 1.20 H (0.52-1.04) mg/dL Glucose 102 H (74-99) mg/dL Calcium 9.1 (8.4-10.2) mg/dL AST 34 (14-36) U/L ALT 16 (4-34) U/L Alkaline Phosphatase 105 (38-126) U/L Total Protein 7.3 (6.3-8.2) g/dL Albumin 3.6 (3.5-5.0) g/dL Calcium panel 05/05/20 Range/Units 16:41 Calcium 9.1 (8.4-10.2) mg/dL Albumin 3.6 (3.5-5.0) g/dL Pituitary panel 05/05/20 Range/Units 16:41 Sodium 135 L (137-145) mmol/L Potassium 5.6 H (3.5-5.1) mmol/L Chloride 101 (98-107) mmol/L Carbon Dioxide 27 (22-30) mmol/L BUN 37 H (7-17) mg/dL Creatinine 1.20 H (0.52-1.04) mg/dL Glucose 102 H (74-99) mg/dL Calcium 9.1 (8.4-10.2) mg/dL Adrenal panel 05/05/20 Range/Units 16:41 Sodium 135 L (137-145) mmol/L Potassium 5.6 H (3.5-5.1) mmol/L Chloride 101 (98-107) mmol/L Carbon Dioxide 27 (22-30) mmol/L BUN 37 H (7-17) mg/dL Creatinine 1.20 H (0.52-1.04) mg/dL Glucose 102 H (74-99) mg/dL Calcium 9.1 (8.4-10.2) mg/dL Total Bilirubin 0.4 (0.2-1.3) mg/dL AST 34 (14-36) U/L ALT 16 (4-34) U/L Alkaline Phosphatase 105 (38-126) U/L Total Protein 7.3 (6.3-8.2) g/dL Albumin 3.6 (3.5-5.0) g/dL - Imaging CT scan - abdomen: report reviewed (Thickening of colon at anastomosis.) Assessment and Plan Assessment: Mild abdominal pain Reason history of right colectomy for colon cancer Patient's CAT scan shows some thickening of the bowel at the anastomosis. This may be related to surgery. At this point the patient will be observed. Her heladio will be removed.
[2020-05-06 12:05] LABS: Glucose,Whole Blood 96 mg/dL (75-99)
[2020-05-06] MEDS ORDERED: bisacodyL 10 MG SUPP RECTAL PRN (12:22)
[2020-05-06] MEDS ORDERED: NITROGLYCERIN SL TABS 0.4 MG TAB SUBLINGUAL PRN (12:22)
[2020-05-06] MEDS ORDERED: HYDROcodone/APAP 5-325MG 1 EACH TAB PO PRN (12:22)
--- NOTE | 2020-05-06 13:37 | P.CONS ---
History of Present Illness - Reason for Consult Consult date: 05/06/20 - History of Present Illness Sonal Ulloa, is an 89-year-old female, with recent history of right colectomy for right colon mass on 03/27/2020, who currently resides at [facility] the [facility], patient was complaining of having abdominal pain, nurse noticed some abdominal distention, patient was sent to [facility] emergency room, she was evaluated and had evidence of sitting confidential wall thickening of the colon at the anastomosis site, patient was started on IV antibiotic and was admitted to medical floor, patient also had evidence of urinary tract infection and a 4 mm nonobstructing right renal calculus and evidence of bladder distention with possible urinary retention, urology co nsultation was requested. On review of systems patient is alert and oriented 3 she is complaining of mild pain in the abdomen otherwise she denies any complaints there is no fever or chills no headache or dizziness no chest pain no shortness of breath no cough no nausea or vomiting no diarrhea no blood in the stools no burning with urination no frequency or urgency and no hematuria. Past Medical History Past Medical History: Atrial Fibrillation, Coronary Artery Disease (CAD), Chest Pain / Angina, Heart Failure, COPD, CVA/TIA, Diabetes Mellitus, GERD/Reflux, Hearing Disorder / Deafness, Hyperlipidemia, Hypertension, Myocardial Infarction ([place]), Osteoarthritis (OA), Pneumonia, Renal Disease, Skin Disorder Additional Past Medical History / Comment(s): IDDM type II, frequent pneumonia, aspiration pneumonia with sepsis, renal insufficiency, recurrent UTIs, TIA x 3, difficulty swallowing-crushes meds and puts them in yogurt-past EGD/dilations, anemia, eczema, "lazy bowel" but pt states anymore she goes from diarrhea to constipation easily, generalized arthritis, chronic back pain, hiatal hernia Last Myocardial Infarction Date:: 1998, 09/21/17 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 MDRO Source:: VRE URINE Past Surgical History: Bowel Resection, Cholecystectomy, Heart Catheterization With Stent Additional Past Surgical History / Comment(s): cataracts w/lens implants, ectopic with one ovary/tube removed, heart caths :04/30/96 stent to rca, 03/18/2000 stent to mid rca, 07/22/17 stent to lad Past Anesthesia/Blood Transfusion Reactions: Previous Problems w/ Anesthesia Additional Past Anesthesia/Blood Transfusion Reaction / Comm: difficulty breathing after anesthesia Date of Last Stent Placement:: 06/2017 Past Psychological History: Depression Additional Psychological History / Comment(s): Pt resides in an apartment at [facility]. She ambulates with a walker. Her daughter is very helpful and is in an apt above her. Pt has chore person from [employer] on aging. She no longer drives, family takes her to [employer]. She goes up to her daughter's for supper and manages her own medication. Smoking Status: Never smoker Past Alcohol Use History: None Reported Additional Past Alcohol Use History / Comment(s): Patient has history of smoking 2 packs per day started smoking at age 16 Past Drug Use History: None Reported - Past Family History Father History Unknown: Yes Family Medical History: Myocardial Infarction ([place]) Additional Family Medical History / Comment(s): Father had a AL at the age of 50 yrs. He lived to be 75yrs old. Mother History Unknown: Yes Family Medical History: Myocardial Infarction ([place]) Additional Family Medical History / Comment(s): Mother of a AL at about age 80yrs. Medications and Allergies Home Medications Medication Instructions Recorded Confirmed Type Montelukast [Singulair] 10 mg PO HS@209905/17/17 05/05/20 History Fluticasone/Salmeterol [Advair 1 puff INHALATION RT-BID@0900,2100 05/18/17 05/05/20 History 250-50 Diskus] Sennosides [Senna] 8.6 mg PO DAILY@0900 07/18/17 05/05/20 History Nitroglycerin Sl Tabs [Nitrostat] 0.4 mg SUBLINGUAL Q5M PRN #25 tab 07/23/17 05/05/20 Rx Acetaminophen [Tylenol] 1,000 mg PO Q4H PRN 05/14/18 05/05/20 History Ferrous Sulfate [Feosol] 325 mg PO BID@0900,1700 11/27/19 05/05/20 History Furosemide [Lasix] 40 mg PO DAILY@0900 03/27/20 05/05/20 History Isosorbide Mononitrate ER [Imdur] 30 mg PO DAILY@0900 03/27/20 05/05/20 History Pantoprazole [Protonix] 40 mg PO BID@0900,209903/27/20 05/05/20 History Tiotropium [place] [Spiriva] 1 cap INHALATION RT-DAILY@1700 03/27/20 05/05/20 History bisacodyL [Dulcolax] 10 mg RECTAL Q72H PRN 03/27/20 05/05/20 History Oxazepam 15 mg PO HS PRN 30 Days #30 cap 04/17/20 05/05/20 Rx Darbepoetin Adrian [Aranesp] 40 mcg SQ TH 05/05/20 05/05/20 History Glucerna Shake 1 can PO DAILY@0900 05/05/20 05/05/20 History HYDROcodone/APAP 5-325MG [[place] 1 tab PO Q6H PRN 05/05/20 05/05/20 History 5-325] Insulin Glargine,Hum.rec.anlog 8 unit SQ HS@209905/05/20 05/05/20 History [Basaglar Kwikpen U-100] Metoprolol Tartrate [Lopressor] 50 mg PO BID@0900,209905/05/20 05/05/20 History amLODIPine [Norvasc] 5 mg PO BID@0900,209905/05/20 05/05/20 History Allergies Allergy/AdvReac Type Severity Reaction Status Date / Time adhesive tape Allergy Rash/Hives Verified 05/05/20 20:35 amoxicillin trihydrate Allergy Unknown Verified 05/05/20 20:35 [From Augmentin] clindamycin HCl Allergy Unknown Verified 05/05/20 20:35 [From Cleocin] clindamycin palmitate HCl Allergy Unknown Verified 05/05/20 20:35 [From Cleocin] clindamycin phosphate Allergy Unknown Verified 05/05/20 20:35 [From Cleocin] codeine Allergy Unknown Verified 05/05/20 20:35 nitrofurantoin Allergy Unknown Verified 05/05/20 20:35 [From Macrobid] nitrofurantoin Allergy Unknown Verified 05/05/20 20:35 macrocrystalline [From Macrobid] Penicillins Allergy Unknown Verified 05/05/20 20:35 potassium clavulanate Allergy Unknown Verified 05/05/20 20:35 [From Augmentin] prednisone Allergy Unknown Verified 05/05/20 20:35 quinine Allergy Unknown Verified 05/05/20 20:35 Sulfa (Sulfonamide Allergy Unknown Verified 05/05/20 20:35 Antibiotics) sulfamethoxazole Allergy Unknown Verified 05/05/20 20:35 [From Bactrim] trimethoprim [From Bactrim] Allergy Unknown Verified 05/05/20 20:35 lorazepam [From Ativan] AdvReac Confusion Verified 05/05/20 20:35 Physical Exam Vitals: Vital Signs Temp Pulse Pulse Resp BP BP BP 05/06/20 08:00 75 20 05/06/20 04:00 75 20 05/06/20 03:21 97.7 F 75 20 147/60 05/06/20 01:45 97.6 F 81 22 90/46 05/06/20 00:00 20 05/05/20 22:44 97 F L 92 20 155/78 05/05/20 21:44 98 F 90 18 150/85 05/05/20 21:38 98 F 90 18 150/85 05/05/20 20:03 78 18 134/66 05/05/20 18:30 81 123/66 05/05/20 18:00 73 05/05/20 17:30 80 136/68 05/05/20 17:08 76 05/05/20 16:19 98.2 F 82 20 129/63 Pulse Ox 05/06/20 08:00 05/06/20 04:00 05/06/20 03:21 75 L 05/06/20 01:45 94 L 05/06/20 00:00 05/05/20 22:44 100 05/05/20 21:44 99 05/05/20 21:38 99 05/05/20 20:03 100 05/05/20 18:30 100 05/05/20 18:00 100 05/05/20 17:30 05/05/20 17:08 05/05/20 16:19 96 Intake and Output 05/05/20 05/06/20 05/06/20 22:59 06:59 14:59 Intake Total 100 Balance 100 Intake: Oral 100 Other: Voiding Method Toilet Toilet # Voids 1 1 1 # Bowel Movements 1 1 Weight 46.357 kg In general patient is alert and oriented 3 in no apparent distress HEENT head normocephalic and atraumatic Neck is supple no JVD no goiter no lymphadenopathy Chest exam reveals a few scattered crackles no wheezing Cardiac exam reveals regular heart sounds no murmurs Abdomen is soft, with mild diffuse tenderness no organomegaly with normal bowel sounds Extremity exam reveals no edema no cyanosis or clubbing Neurological examination reveals no gross focal deficit Results CBC & Chem 7: 05/05/20 16:41 05/05/20 16:41 Labs: Abnormal Lab Results - Last 24 Hours (Table) 05/05/20 05/05/20 05/05/20 Range/Units 16:41 16:41 17:23 Hgb 10.2 L (11.4-16.0) gm/dL MCHC 29.7 L (31.0-37.0) g/dL RDW 22.7 H (11.5-15.5) % Sodium 135 L (137-145) mmol/L Potassium 5.6 H (3.5-5.1) mmol/L BUN 37 H (7-17) mg/dL Creatinine 1.20 H (0.52-1.04) mg/dL Glucose 102 H (74-99) mg/dL Urine Appearance Cloudy H (Clear) Urine Protein Trace H (Negative) Urine Blood Trace H (Negative) Ur Leukocyte Esterase Large H (Negative) Urine WBC 94 H (0-5) /hpf Urine Bacteria Moderate H (None) /hpf Urine Mucus Rare H (None) /hpf Microbiology - Last 24 Hours (Table) 05/05/20 17:23 Urine Culture - Preliminary Urine,Voided Assessment and Plan Plan: 1. Abdominal pain, with recent right colectomy due to right colon mass, with evidence of wall thickening of the colon at the anastomosis site with possible colitis, patient was started on IV antibiotic and admitted under surgery medical consultation was requested for management while hospitalized. 2. Evidence of urinary tract infection continue with current antibiotics awaiting urine culture results 3. Possible urinary retention, and evidence of right renal calculus, urology consultation was requested. 4. Dehydration was acute kidney injury due to prerenal azotemia creatinine is up to 1.20 it was 0.97 on 04/17/2020 5. Underlying history of hypertension well-controlled 6. Underlying history of insulin-dependent diabetes mellitus 7. Underlying history of gastroesophageal reflux disease At this time medication and labs were reviewed home medications reorder For DVT prophylaxis will start subcu Lovenox Continue current antibiotics Awaiting urine culture results Recheck labs in a.m. Awaiting further input from surgery and urology
[2020-05-06] MEDS: FERROUS SULFATE 325 MG TAB PO SCH (15:40)
[2020-05-06 16:22] LABS: Glucose,Whole Blood 98 mg/dL (75-99)
[2020-05-06] MEDS: ACETAMINOPHEN TAB 500 MG TAB PO PRN (18:00)
[2020-05-06] MEDS: SYMBICORT 80-4.5 MCG INHALER INHALATION SCH (18:50)
[2020-05-06] MEDS: TIOTROPIUM 18 MCG/PUFF INHALER INHALATION SCH (18:52)
[2020-05-06 20:40] LABS: Glucose,Whole Blood 115 mg/dL (75-99)
[2020-05-06] MEDS ORDERED: PANTOPRAZOLE 40 MG TABLET PO SCH (21:00)
[2020-05-06] MEDS: METOPROLOL TARTRATE 50 MG TAB PO SCH (21:36)
[2020-05-06] MEDS: MONTELUKAST 10 MG TAB PO SCH (21:36)
[2020-05-06] MEDS: INSULIN DETEMIR (LEVEMIR) 100 UNIT/ML SYR SQ SCH (21:36)
[2020-05-06] MEDS: amLODIPine 5 MG TAB PO SCH (21:36)
[2020-05-06] MEDS: SERAX PO PRN (21:37)
[2020-05-07 07:24] LABS: Anisocytosis Moderate; Basophils % (A) 1 %; Eosinophils # (A) 0.3 k/uL (0-0.7); Eosinophils % (A) 5 %; HCT 34.1 % (34.0-46.0); Hypochromasia Marked; Lymphocytes % (A) 14 %; MCH 25.5 pg (25.0-35.0); MCHC 29.4 g/dL (31.0-37.0); MCV 86.9 fL (80.0-100.0); Mean Platelet Volume 7.3; Microcytosis Slight; Monocytes # (A) 0.4 k/uL (0-1.0); Monocytes % (A) 6 %; Neutrophils # (A) 5.2 k/uL (1.3-7.7); Neutrophils % (A) 73 %; Platelet Count 269 k/uL (150-450); RBC 3.92 m/uL (3.80-5.40); RDW 22.3 % (11.5-15.5); WBC 7.1 k/uL (3.8-10.6)
[2020-05-07 07:30] LABS: Glucose,Whole Blood 43 mg/dL (75-99)
[2020-05-07 07:32] LABS: Albumin 2.7 g/dL (3.5-5.0); Calcium 8.3 mg/dL (8.4-10.2); Potassium 3.7 mmol/L (3.5-5.1); Total Bilirubin 0.3 mg/dL (0.2-1.3); Total Protein 5.9 g/dL (6.3-8.2)
[2020-05-07 07:55] LABS: Glucose,Whole Blood 44 mg/dL (75-99)
[2020-05-07] MEDS: metroNIDAZOLE-NS PMX 500 MG in SALINE 1 100ML.BAG IVPB SCH ×3 (07:58→23:27)
[2020-05-07] MEDS: FERROUS SULFATE 325 MG TAB PO SCH ×2 (07:59→15:29)
[2020-05-07] MEDS: METOPROLOL TARTRATE 50 MG TAB PO SCH ×2 (07:59→20:29)
[2020-05-07] MEDS: SENNOSIDES 8.6 MG TAB PO SCH (07:59)
[2020-05-07] MEDS: amLODIPine 5 MG TAB PO SCH ×2 (07:59→20:29)
[2020-05-07] MEDS: FUROSEMIDE 40 MG TAB PO SCH (07:59)
[2020-05-07] MEDS: ISOSORBIDE MONONITRATE ER 30 MG TAB.ER.24H PO SCH (07:59)
[2020-05-07] MEDS: PANTOPRAZOLE 40 MG/10 ML VIAL IV SCH (08:00)
[2020-05-07] MEDS: ENOXAPARIN 40 MG/0.4 ML SYRINGE SQ SCH (08:06)
[2020-05-07 08:27] LABS: Glucose,Whole Blood 60 mg/dL (75-99)
[2020-05-07] MEDS: SYMBICORT 80-4.5 MCG INHALER INHALATION SCH ×2 (08:39→19:16)
[2020-05-07] MEDS ORDERED: NON FORMULARY DRUG (Glucerna Shake 1 CAN) PO SCH (09:00)
[2020-05-07] MEDS ORDERED: LEVOFLOXACIN 750MG-D5W PMX 750 MG in DEXTROSE/WATER 1 150ML.BAG IVPB SCH (09:00)
[2020-05-07 09:03] LABS: Glucose,Whole Blood 81 mg/dL (75-99)
--- NOTE | 2020-05-07 11:07 | P.GSCN ---
History of Present Illness Consult date: 05/07/20 Reason for Consult: Kidney stone and bladder distention History of present illness: the patient is an 89-year-old female admitted on 05/05 for evaluation of abdominal pain. 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 As part of her evaluation at the time of admission a computed tomography scan of the abdomen and pelvis was obtained and this showed a 5 mm nonobstructive right renal calculus and what appeared to be a distended bladder. There was also concern in regard to a urina ry tract infection. I was asked to see the patient for further evaluation. The patient says that she usually voids every 2 hours during the day and occasionally at night. She denies any significant urinary incontinence but says that she does wear a pad because at times its difficult to get to the bathroom in time. She says more recently her problem has been fecal incontinence due to loose stools. She denies a history of gross hematuria or recurrent urinary tract infections. A catheter was inserted yesterday afternoon following the computed tomography scan and drained 1100 mL. The patient said she felt no better following drainage of the catheter. Urinalysis on admission showed 5 red cells 94 white cells and was negative for nitrite. BUN/creatinine was 37/1.20. Urine culture has shown no growth at 18 hours. The patient did have a Klebsiella urinary tract infection on 04/16. Review of Systems - Constitutional Denies chills, Denies fever - Gastrointestinal Reports as per HPI, Reports diarrhea - Genitourinary Genitourinary: Reports as per HPI Past Medical History Past Medical History: Atrial Fibrillation, Coronary Artery Disease (CAD), Chest Pain / Angina, Heart Failure, COPD, CVA/TIA, Diabetes Mellitus, GERD/Reflux, Hearing Disorder / Deafness, Hyperlipidemia, Hypertension, Myocardial Infarction ([place]), Osteoarthritis (OA), Pneumonia, Renal Disease, Skin Disorder Additional Past Medical History / Comment(s): IDDM type II, frequent pneumonia, aspiration pneumonia with sepsis, renal insufficiency, recurrent UTIs, TIA x 3, difficulty swallowing-crushes meds and puts them in yogurt-past EGD/dilations, anemia, eczema, "lazy bowel" but pt states anymore she goes from diarrhea to constipation easily, generalized arthritis, chronic back pain, hiatal hernia Last Myocardial Infarction Date:: 09/21/17 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 MDRO Source:: VRE URINE Past Surgical History: Bowel Resection, Cholecystectomy, Heart Catheterization With Stent Additional Past Surgical History / Comment(s): cataracts w/lens implants, ectopic with one ovary/tube removed, heart caths :04/30/96 stent to rca, 03/18/2000 stent to mid rca, 07/22/17 stent to lad Past Anesthesia/Blood Transfusion Reactions: Previous Problems w/ Anesthesia Additional Past Anesthesia/Blood Transfusion Reaction / Comm: difficulty breathing after anesthesia Date of Last Stent Placement:: 06/2017 Past Psychological History: Depression Additional Psychological History / Comment(s): Pt resides in an apartment at [facility]. She ambulates with a walker. Her daughter is very helpful and is in an apt above her. Pt has chore person from [employer] on aging. She no longer drives, family takes her to [employer]. She goes up to her daughter's for supper and manages her own medication. Smoking Status: Never smoker Past Alcohol Use History: None Reported Additional Past Alcohol Use History / Comment(s): Patient has history of smoking 2 packs per day started smoking at age 16 Past Drug Use History: None Reported - Past Family History Father History Unknown: Yes Family Medical History: Myocardial Infarction ([place]) Additional Family Medical History / Comment(s): Father had a [place] at the age of 50 yrs. He lived to be 75yrs old. Mother History Unknown: Yes Family Medical History: Myocardial Infarction ([place]) Additional Family Medical History / Comment(s): Mother of a [place] at about age 80yrs. Medications and Allergies Home Medications Medication Instructions Recorded Confirmed Type Montelukast [Singulair] 10 mg PO HS@209905/17/17 05/05/20 History Fluticasone/Salmeterol [Advair 1 puff INHALATION RT-BID@0900,209905/18/17 05/05/20 History 250-50 Diskus] Sennosides [Senna] 8.6 mg PO DAILY@0900 07/18/17 05/05/20 History Nitroglycerin Sl Tabs [Nitrostat] 0.4 mg SUBLINGUAL Q5M PRN #25 tab 07/23/17 05/05/20 Rx Acetaminophen [Tylenol] 1,000 mg PO Q4H PRN 05/14/18 05/05/20 History Ferrous Sulfate [Feosol] 325 mg PO BID@0900,1700 11/27/19 05/05/20 History Furosemide [Lasix] 40 mg PO DAILY@89903/27/20 05/05/20 History Isosorbide Mononitrate ER [Imdur] 30 mg PO DAILY@89903/27/20 05/05/20 History Pantoprazole [Protonix] 40 mg PO BID@09,209903/27/20 05/05/20 History Tiotropium [place] [Spiriva] 1 cap INHALATION RT-DAILY@169903/27/20 05/05/20 History bisacodyL [Dulcolax] 10 mg RECTAL Q72H PRN 03/27/20 05/05/20 History Oxazepam 15 mg PO HS PRN 30 Days #30 cap 04/17/20 05/05/20 Rx Darbepoetin Adrian [Aranesp] 40 mcg SQ TH 05/05/20 05/05/20 History Glucerna Shake 1 can PO DAILY@89905/05/20 05/05/20 History HYDROcodone/APAP 5-325MG [[place] 1 tab PO Q6H PRN 05/05/20 05/05/20 History 5-325] Insulin Glargine,Hum.rec.anlog 8 unit SQ HS@209905/05/20 05/05/20 History [Basaglar Kwikpen U-100] Metoprolol Tartrate [Lopressor] 50 mg PO BID@0900,209905/05/20 05/05/20 History amLODIPine [Norvasc] 5 mg PO BID@0900,209905/05/20 05/05/20 History Allergies Allergy/AdvReac Type Severity Reaction Status Date / Time adhesive tape Allergy Rash/Hives Verified 05/05/20 20:35 amoxicillin trihydrate Allergy Unknown Verified 05/05/20 20:35 [From Augmentin] clindamycin HCl Allergy Unknown Verified 05/05/20 20:35 [From Cleocin] clindamycin palmitate HCl Allergy Unknown Verified 05/05/20 20:35 [From Cleocin] clindamycin phosphate Allergy Unknown Verified 05/05/20 20:35 [From Cleocin] codeine Allergy Unknown Verified 05/05/20 20:35 nitrofurantoin Allergy Unknown Verified 05/05/20 20:35 [From Macrobid] nitrofurantoin Allergy Unknown Verified 05/05/20 20:35 macrocrystalline [From Macrobid] Penicillins Allergy Unknown Verified 05/05/20 20:35 potassium clavulanate Allergy Unknown Verified 05/05/20 20:35 [From Augmentin] prednisone Allergy Unknown Verified 05/05/20 20:35 quinine Allergy Unknown Verified 05/05/20 20:35 Sulfa (Sulfonamide Allergy Unknown Verified 05/05/20 20:35 Antibiotics) sulfamethoxazole Allergy Unknown Verified 05/05/20 20:35 [From Bactrim] trimethoprim [From Bactrim] Allergy Unknown Verified 05/05/20 20:35 lorazepam [From Ativan] AdvReac Confusion Verified 05/05/20 20:35 Surgical - Exam Vital Signs Temp Pulse Resp BP Pulse Ox 98.2 F 82 20 129/63 96 05/05/20 16:19 05/05/20 16:19 05/05/20 16:19 05/05/20 16:19 05/05/20 16:19 Results - Labs 05/07/20 06:45 05/07/20 06:45 Abnormal Lab Results - Last 24 Hours (Table) 05/06/20 05/07/20 05/07/20 Range/Units 20:39 06:45 06:45 Hgb 10.0 L (11.4-16.0) gm/dL MCHC 29.4 L (31.0-37.0) g/dL RDW 22.3 H (11.5-15.5) % Chloride 113 H (98-107) mmol/L Glucose 44 L* (74-99) mg/dL POC Glucose (mg/dL) 115 H (75-99) mg/dL Calcium 8.3 L (8.4-10.2) mg/dL Total Protein 5.9 L (6.3-8.2) g/dL Albumin 2.7 L (3.5-5.0) g/dL 05/07/20 05/07/20 05/07/20 Range/Units 07:28 07:53 08:25 Hgb (11.4-16.0) gm/dL MCHC (31.0-37.0) g/dL RDW (11.5-15.5) % Chloride (98-107) mmol/L Glucose (74-99) mg/dL POC Glucose (mg/dL) 43 L 44 L 60 L (75-99) mg/dL Calcium (8.4-10.2) mg/dL Total Protein (6.3-8.2) g/dL Albumin (3.5-5.0) g/dL Microbiology - Last 24 Hours (Table) 05/05/20 17:23 Urine Culture - Final Urine,Voided Diabetes panel 05/07/20 Range/Units 06:45 Sodium 140 (137-145) mmol/L Potassium 3.7 (3.5-5.1) mmol/L Chloride 113 H (98-107) mmol/L Carbon Dioxide 24 (22-30) mmol/L BUN 14 (7-17) mg/dL Creatinine 0.81 (0.52-1.04) mg/dL Glucose 44 L* (74-99) mg/dL Calcium 8.3 L (8.4-10.2) mg/dL AST 24 (14-36) U/L ALT 11 (4-34) U/L Alkaline Phosphatase 69 (38-126) U/L Total Protein 5.9 L (6.3-8.2) g/dL Albumin 2.7 L (3.5-5.0) g/dL Calcium panel 05/07/20 Range/Units 06:45 Calcium 8.3 L (8.4-10.2) mg/dL Albumin 2.7 L (3.5-5.0) g/dL Pituitary panel 05/07/20 Range/Units 06:45 Sodium 140 (137-145) mmol/L Potassium 3.7 (3.5-5.1) mmol/L Chloride 113 H (98-107) mmol/L Carbon Dioxide 24 (22-30) mmol/L BUN 14 (7-17) mg/dL Creatinine 0.81 (0.52-1.04) mg/dL Glucose 44 L* (74-99) mg/dL Calcium 8.3 L (8.4-10.2) mg/dL Adrenal panel 05/07/20 Range/Units 06:45 Sodium 140 (137-145) mmol/L Potassium 3.7 (3.5-5.1) mmol/L Chloride 113 H (98-107) mmol/L Carbon Dioxide 24 (22-30) mmol/L BUN 14 (7-17) mg/dL Creatinine 0.81 (0.52-1.04) mg/dL Glucose 44 L* (74-99) mg/dL Calcium 8.3 L (8.4-10.2) mg/dL Total Bilirubin 0.3 (0.2-1.3) mg/dL AST 24 (14-36) U/L ALT 11 (4-34) U/L Alkaline Phosphatase 69 (38-126) U/L Total Protein 5.9 L (6.3-8.2) g/dL Albumin 2.7 L (3.5-5.0) g/dL - Imaging CT scan - abdomen: image reviewed CT scan - pelvis: image reviewed Assessment and Plan (1) Urinary retention with incomplete bladder emptying Narrative/Plan: I reviewed the patient's most recent computed tomography scan and compared it with CAT scans performed in 03/2020, 09/2018 and 08/2015. The right renal calculus is essentially the same size and location and is not symptomatic. In view of this further evaluation or treatment of the stone is not necessary. The patient has had evidence of bladder distention on all previous CT scans. Despite this she has no hydronephrosis and her renal function studies have been essentially unchanged over the last 5 years. The patient's abdominal pain did not improve after placement of a [place] catheter. Ideally she would have been treated with self catheterization but in view of her age I do not feel that this is a reasonable option. An indwelling catheter will only increase her risk of infection. She does not have a history of persistent urinary incontinence or frequency and in view of this and her age I feel that removal of the catheter would be the best option. Her BUN and creatinine should be monitored p eriodically and as long as her renal function is stable further urologic investigation or treatment of her incomplete bladder is not necessary. Current Visit: Yes Status: Acute Code(s): R33.9 - RETENTION OF URINE, UNSPE CIFIED SNOMED Code(s): 530937303
[2020-05-07 11:29] LABS: Glucose,Whole Blood 138 mg/dL (75-99)
--- NOTE | 2020-05-07 11:57 | P.PN ---
Progress Note - Text Progress Note Date: 05/07/20 The patient feels slightly better. She is having some diarrhea. On exam vital signs appear stable. Abdomen soft. UTI. Patient receiving IV antibiotic. Questionable colitis. Patient be observed. She'll continue regular diet.
--- NOTE | 2020-05-07 12:58 | P.PN ---
Subjective Progress Note Date: 05/07/20 Sonal Ulloa, is an 89-year-old female, with recent history of right colectomy for right colon mass on 03/27/2020, who currently resides at [facility] on the [facility], patient was complaining of having abdominal pain, nurse noticed some abdominal distention, patient was sent to [facility] emergency room, she was evaluated and had evidence of sitting confidential wall thickening of the colon at the anastomosis site, patient was started on IV antibiotic and was admitted to medical floor, patient also had evidence of urinary tract infection and a 4 mm nonobstructing right renal calculus and evidence of bladder distention with possible urinary retention, urology consultation was requested. On review of systems patient is alert and oriented 3 she is complaining of mild pain in the abdomen otherwise she denies any complaints there is no fever or chills no headache or dizziness no chest pain no shortness of breath no cough no nausea or vomiting no diarrhea no blood in the stools no burning with urination no frequency or urgency and no hematuria. On 05/07/2020 patient was seen and examined on the medical floor she is alert and oriented 3 in no apparent distress she is complaining of diarrhea and abdominal discomfort otherwise she denies any complaints, there is no fever or chills no headache or dizziness no chest pain no shortness of breath no cough no burning with urination no frequency or urgency and no hematuria Objective - Vital Signs Vital signs: Vital Signs Temp 96.8 F L 05/07/20 07:00 Pulse 64 05/07/20 08:00 Resp 18 05/07/20 08:00 BP 120/59 05/07/20 07:00 Pulse Ox 99 05/07/20 07:00 Intake & Output 05/06/20 05/07/20 05/07/20 18:59 06:59 18:59 Output Total 1100 1275 Balance -1100 -1275 Output: Urine 1100 1275 Other: Voiding Method Indwelling Catheter Indwelling Catheter Indwelling Catheter # Voids 3 # Bowel Movements 1 - Exam In general patient is alert and oriented 3 in no apparent distress HEENT head normocephalic and atraumatic Neck is supple no JVD no goiter no lymphadenopathy Chest exam reveals a few scattered crackles no wheezing Cardiac exam reveals regular heart sounds no murmurs Abdomen is soft, with mild diffuse tenderness no organomegaly with normal bowel sounds Extremity exam reveals no edema no cyanosis or clubbing Neurological examination reveals no gross focal deficit - Labs CBC & Chem 7: 05/07/20 06:45 05/07/20 06:45 Labs: Abnormal Lab Results - Last 24 Hours (Table) 05/06/20 05/07/20 05/07/20 Range/Units 20:39 06:45 06:45 Hgb 10.0 L (11.4-16.0) gm/dL MCHC 29.4 L (31.0-37.0) g/dL RDW 22.3 H (11.5-15.5) % Chloride 113 H (98-107) mmol/L Glucose 44 L* (74-99) mg/dL POC Glucose (mg/dL) 115 H (75-99) mg/dL Calcium 8.3 L (8.4-10.2) mg/dL Total Protein 5.9 L (6.3-8.2) g/dL Albumin 2.7 L (3.5-5.0) g/dL 05/07/20 05/07/20 05/07/20 Range/Units 07:28 07:53 08:25 Hgb (11.4-16.0) gm/dL MCHC (31.0-37.0) g/dL RDW (11.5-15.5) % Chloride (98-107) mmol/L Glucose (74-99) mg/dL POC Glucose (mg/dL) 43 L 44 L 60 L (75-99) mg/dL Calcium (8.4-10.2) mg/dL Total Protein (6.3-8.2) g/dL Albumin (3.5-5.0) g/dL 05/07/20 Range/Units 11:27 Hgb (11.4-16.0) gm/dL MCHC (31.0-37.0) g/dL RDW (11.5-15.5) % Chloride (98-107) mmol/L Glucose (74-99) mg/dL POC Glucose (mg/dL) 138 H (75-99) mg/dL Calcium (8.4-10.2) mg/dL Total Protein (6.3-8.2) g/dL Albumin (3.5-5.0) g/dL Microbiology - Last 24 Hours (Table) 05/05/20 17:23 Urine Culture - Final Urine,Voided Assessment and Plan Plan: 1. Abdominal pain, with recent right colectomy due to right colon mass, with evidence of wall thickening of the colon at the anastomosis site with possible colitis, patient was started on IV antibiotic and admitted under surgery medical consultation was requested for management while hospitalized. Today patient is having diarrhea will check stools for Clostridium difficile. 2. Evidence of urinary tract infection continue with current antibiotics awaiting urine culture results 3. Possible urinary retention, and evidence of right renal calculus, urology consultation was requested. 4. Dehydration was acute kidney injury due to prerenal azotemia creatinine is up to 1.20 it was 0.97 on 04/17/2020 5. Underlying history of hypertension well-controlled 6. Underlying history of insulin-dependent diabetes mellitus 7. Underlying history of gastroesophageal reflux disease At this time medication and labs were reviewed home medications reorder For DVT prophylaxis will start subcu Lovenox Continue current antibiotics Awaiting urine culture results Recheck labs in a.m. Awaiting further input from surgery and urology
[2020-05-07 16:43] LABS: Glucose,Whole Blood 86 mg/dL (75-99)
[2020-05-07] MEDS: ACETAMINOPHEN TAB 500 MG TAB PO PRN (18:26)
[2020-05-07] MEDS: TIOTROPIUM 18 MCG/PUFF INHALER INHALATION SCH (19:16)
[2020-05-07] MEDS: INSULIN DETEMIR (LEVEMIR) 100 UNIT/ML SYR SQ SCH (20:29)
[2020-05-07] MEDS: MONTELUKAST 10 MG TAB PO SCH (20:29)
[2020-05-07] MEDS: SERAX PO PRN (20:29)
[2020-05-07 20:41] LABS: Glucose,Whole Blood 148 mg/dL (75-99)
[2020-05-07] MEDS: SODIUM CHLORIDE 0.9% 1,000 ML IV SCH (23:27)
[2020-05-08] MEDS: SODIUM CHLORIDE 0.9% 1,000 ML IV SCH ×3 (02:46→21:17)
[2020-05-08 06:54] LABS: Glucose,Whole Blood 45 mg/dL (75-99)
[2020-05-08] MEDS: amLODIPine 5 MG TAB PO SCH ×2 (07:48→21:17)
[2020-05-08] MEDS: METOPROLOL TARTRATE 50 MG TAB PO SCH ×2 (07:48→21:17)
[2020-05-08] MEDS: ISOSORBIDE MONONITRATE ER 30 MG TAB.ER.24H PO SCH (07:48)
[2020-05-08] MEDS: SENNOSIDES 8.6 MG TAB PO SCH ×2 (07:48→07:51)
[2020-05-08] MEDS: FERROUS SULFATE 325 MG TAB PO SCH ×2 (07:48→17:55)
[2020-05-08] MEDS: FUROSEMIDE 40 MG TAB PO SCH (07:48)
[2020-05-08] MEDS: PANTOPRAZOLE 40 MG/10 ML VIAL IV SCH (07:49)
[2020-05-08] MEDS: metroNIDAZOLE-NS PMX 500 MG in SALINE 1 100ML.BAG IVPB SCH ×3 (07:49→23:22)
[2020-05-08] MEDS: ENOXAPARIN 40 MG/0.4 ML SYRINGE SQ SCH (07:49)
[2020-05-08 07:50] LABS: Anisocytosis Moderate; Basophils # (A) 0.1 k/uL (0-0.2); Basophils % (A) 1 %; Eosinophils # (A) 0.6 k/uL (0-0.7); Eosinophils % (A) 8 %; HCT 35.7 % (34.0-46.0); HGB 10.4 gm/dL (11.4-16.0); Hypochromasia Marked; Lymphocytes # (A) 1.9 k/uL (1.0-4.8); Lymphocytes % (A) 27 %; MCH 25.3 pg (25.0-35.0); MCHC 29.1 g/dL (31.0-37.0); MCV 87.1 fL (80.0-100.0); Mean Platelet Volume 7.3; Microcytosis Slight; Monocytes # (A) 0.5 k/uL (0-1.0); Monocytes % (A) 7 %; Neutrophils # (A) 3.8 k/uL (1.3-7.7); Neutrophils % (A) 54 %; Platelet Count 307 k/uL (150-450); RDW 22.2 % (11.5-15.5); WBC 7.1 k/uL (3.8-10.6)
[2020-05-08 08:02] LABS: Glucose,Whole Blood 83 mg/dL (75-99)
[2020-05-08 08:06] LABS: Albumin 2.9 g/dL (3.5-5.0); Calcium 8.3 mg/dL (8.4-10.2); Potassium 3.8 mmol/L (3.5-5.1); Total Bilirubin 0.3 mg/dL (0.2-1.3); Total Protein 6.2 g/dL (6.3-8.2)
[2020-05-08] MEDS: SYMBICORT 80-4.5 MCG INHALER INHALATION SCH ×2 (09:19→20:17)
[2020-05-08 11:29] LABS: Glucose,Whole Blood 89 mg/dL (75-99)
--- NOTE | 2020-05-08 15:00 | P.PN ---
Subjective Progress Note Date: 05/08/20 CHIEF COMPLAINT: Abdominal pain HISTORY OF PRESENT ILLNESS: Patient is still having some diarrhea. She reports feeling better. Still having some left-sided abdominal pain. She is afebrile. WBC 7.1. Hemoglobin 10.4. C. diff negative. She's currently on a regular diet. PHYSICAL EXAM: VITAL SIGNS: Reviewed. GENERAL: Well-developed in no acute distress. HEENT: No sclera icterus. Extraocular movements grossly intact. Moist buccal mucosa. Head is atraumatic, normocephalic. ABDOMEN: Soft. Nondistended. Nontender. NEUROLOGIC: Alert and oriented. Cranial nerves II through XII grossly intact. ASSESSMENT: 1. Abdominal pain 2. Possible colitis 3. UTI 4. Recent right colectomy secondary to a right colon mass PLAN: -Continue regular diet -Continue IV antibiotics -Urology consult for possible urinary retention -DVT prophylaxis Lovenox Physician [employer] note has been reviewed by physician. Signing provider agrees with the documented findings, assessment, and plan of care. Objective - Vital Signs Vital signs: Vital Signs Temp 97.9 F 05/08/20 14:47 Pulse 74 05/08/20 14:47 Resp 18 05/08/20 14:47 BP 137/66 05/08/20 14:47 Pulse Ox 100 05/08/20 14:47 Intake & Output 05/07/20 05/08/20 05/08/20 18:59 06:59 18:59 Output Total 2750 850 Balance -2750 -850 Output: Urine 1850 850 Post Void Residual 900 Other: Voiding Method Indwelling Catheter Toilet Toilet # Voids 400 1 # Bowel Movements 2 - Labs CBC & Chem 7: 05/08/20 07:07 05/08/20 07:07 Labs: Abnormal Lab Results - Last 24 Hours (Table) 05/07/20 05/08/20 05/08/20 Range/Units 20:39 06:49 07:07 Hgb 10.4 L (11.4-16.0) gm/dL MCHC 29.1 L (31.0-37.0) g/dL RDW 22.2 H (11.5-15.5) % Chloride (98-107) mmol/L Glucose (74-99) mg/dL POC Glucose (mg/dL) 148 H 45 L (75-99) mg/dL Calcium (8.4-10.2) mg/dL Total Protein (6.3-8.2) g/dL Albumin (3.5-5.0) g/dL 05/08/20 Range/Units 07:07 Hgb (11.4-16.0) gm/dL MCHC (31.0-37.0) g/dL RDW (11.5-15.5) % Chloride 113 H (98-107) mmol/L Glucose 45 L* (74-99) mg/dL POC Glucose (mg/dL) (75-99) mg/dL Calcium 8.3 L (8.4-10.2) mg/dL Total Protein 6.2 L (6.3-8.2) g/dL Albumin 2.9 L (3.5-5.0) g/dL
[2020-05-08 16:58] LABS: Glucose,Whole Blood 88 mg/dL (75-99)
--- NOTE | 2020-05-08 18:54 | P.PN ---
Subjective Progress Note Date: 05/08/20 Sonal Ulloa, is an 89-year-old female, with recent history of right colectomy for right colon mass on 03/27/2020, who currently resides at [facility] on the [facility], patient was complaining of having abdominal pain, nurse noticed some abdominal distention, patient was sent to [facility] emergency room, she was evaluated and had evidence of sitting confidential wall thickening of the colon at the anastomosis site, patient was started on IV antibiotic and was admitted to medical floor, patient also had evidence of urinary tract infection and a 4 mm nonobstructing right renal calculus and evidence of bladder distention with possible urinary retention, urology consultation was requested. On review of systems patient is alert and oriented 3 she is complaining of mild pain in the abdomen otherwise she denies any complaints there is no fever or chills no headache or dizziness no chest pain no shortness of breath no cough no nausea or vomiting no diarrhea no blood in the stools no burning with urination no frequency or urgency and no hematuria. On 05/07/2020 patient was seen and examined on the medical floor she is alert and oriented 3 in no apparent distress she is complaining of diarrhea and abdominal discomfort otherwise she denies any complaints, there is no fever or chills no headache or dizziness no chest pain no shortness of breath no cough no burning with urination no frequency or urgency and no hematuria. On 05/08/2020, patient was seen and examined on the medical floor she is alert and oriented 3 in no apparent distress , diarrhea has improved but still present , C. diff toxin was negative , there is no fever or chills no headache or dizziness no chest pain no shortness of breath no cough no nausea or vomiting no abdominal pain no diarrhea no burning with urination no frequency or urgency no hematuria Objective - Vital Signs Vital signs: Vital Signs Temp 97.9 F 05/08/20 14:47 Pulse 74 05/08/20 14:47 Resp 18 05/08/20 14:47 BP 137/66 05/08/20 14:47 Pulse Ox 100 05/08/20 14:47 Intake & Output 05/07/20 05/08/20 05/08/20 18:59 06:59 18:59 Output Total 2750 850 Balance -2750 -850 Output: Urine 1850 850 Post Void Residual 900 Other: Voiding Method Indwelling Catheter Toilet Toilet # Voids 400 1 # Bowel Movements 2 - Exam In general patient is alert and oriented 3 in no apparent distress HEENT head normocephalic and atraumatic Neck is supple no JVD no goiter no lymphadenopathy Chest exam reveals a few scattered crackles no wheezing Cardiac exam reveals regular heart sounds no murmurs Abdomen is soft, with mild diffuse tenderness no organomegaly with normal bowel sounds Extremity exam reveals no edema no cyanosis or clubbing Neurological examination reveals no gross focal deficit - Labs CBC & Chem 7: 05/08/20 07:07 05/08/20 07:07 Labs: Abnormal Lab Results - Last 24 Hours (Table) 05/07/20 05/08/20 05/08/20 Range/Units 20:39 06:49 07:07 Hgb 10.4 L (11.4-16.0) gm/dL MCHC 29.1 L (31.0-37.0) g/dL RDW 22.2 H (11.5-15.5) % Chloride (98-107) mmol/L Glucose (74-99) mg/dL POC Glucose (mg/dL) 148 H 45 L (75-99) mg/dL Calcium (8.4-10.2) mg/dL Total Protein (6.3-8.2) g/dL Albumin (3.5-5.0) g/dL 05/08/20 Range/Units 07:07 Hgb (11.4-16.0) gm/dL MCHC (31.0-37.0) g/dL RDW (11.5-15.5) % Chloride 113 H (98-107) mmol/L Glucose 45 L* (74-99) mg/dL POC Glucose (mg/dL) (75-99) mg/dL Calcium 8.3 L (8.4-10.2) mg/dL Total Protein 6.2 L (6.3-8.2) g/dL Albumin 2.9 L (3.5-5.0) g/dL Assessment and Plan Plan: 1. Abdominal pain, with recent right colectomy due to right colon mass, with evidence of wall thickening of the colon at the anastomosis site with possible colitis, patient was started on IV antibiotic and admitted under surgery medical consultation was requested for management while hospitalized. Today patient is having diarrhea will check stools for Clostridium difficile. 2. Evidence of urinary tract infection continue with current antibiotics awaiting urine culture results 3. Possible urinary retention, and evidence of right renal calculus, urology consultation was requested. 4. Dehydration was acute kidney injury due to prerenal azotemia creatinine is up to 1.20 it was 0.97 on 04/17/2020 5. Underlying history of hypertension well-controlled 6. Underlying history of insulin-dependent diabetes mellitus 7. Underlying history of gastroesophageal reflux disease At this time medication and labs were reviewed home medications reorder For DVT prophylaxis will start subcu Lovenox Continue current antibiotics Awaiting urine culture results Recheck labs in a.m. Awaiting further input from surgery and urology
[2020-05-08] MEDS: TIOTROPIUM 18 MCG/PUFF INHALER INHALATION SCH (20:16)
[2020-05-08 21:01] LABS: Glucose,Whole Blood 145 mg/dL (75-99)
[2020-05-08] MEDS: SERAX PO PRN (21:17)
[2020-05-08] MEDS: MONTELUKAST 10 MG TAB PO SCH (21:17)
[2020-05-08] MEDS: ACETAMINOPHEN TAB 500 MG TAB PO PRN (21:56)
[2020-05-09] MEDS: SODIUM CHLORIDE 0.9% 1,000 ML IV SCH ×3 (04:46→23:27)
[2020-05-09 06:54] LABS: Glucose,Whole Blood 94 mg/dL (75-99)
[2020-05-09] MEDS: INSULIN DETEMIR (LEVEMIR) 100 UNIT/ML SYR SQ SCH (07:07)
[2020-05-09] MEDS: SENNOSIDES 8.6 MG TAB PO SCH (08:04)
[2020-05-09] MEDS: METOPROLOL TARTRATE 50 MG TAB PO SCH ×2 (08:04→20:40)
[2020-05-09] MEDS: ENOXAPARIN 40 MG/0.4 ML SYRINGE SQ SCH (08:05)
[2020-05-09] MEDS: metroNIDAZOLE-NS PMX 500 MG in SALINE 1 100ML.BAG IVPB SCH ×3 (08:05→23:26)
[2020-05-09] MEDS: PANTOPRAZOLE 40 MG TABLET PO SCH (08:05)
[2020-05-09] MEDS: FERROUS SULFATE 325 MG TAB PO SCH ×2 (08:05→16:24)
[2020-05-09] MEDS: FUROSEMIDE 40 MG TAB PO SCH (08:05)
[2020-05-09] MEDS: amLODIPine 5 MG TAB PO SCH ×2 (08:05→20:40)
[2020-05-09] MEDS: ISOSORBIDE MONONITRATE ER 30 MG TAB.ER.24H PO SCH (08:05)
[2020-05-09 08:15] LABS: Anisocytosis Moderate; Basophils % (A) 1 %; Eosinophils # (A) 0.7 k/uL (0-0.7); Eosinophils % (A) 10 %; HCT 37.5 % (34.0-46.0); HGB 10.9 gm/dL (11.4-16.0); Hypochromasia Marked; Lymphocytes # (A) 1.5 k/uL (1.0-4.8); Lymphocytes % (A) 23 %; MCV 86.4 fL (80.0-100.0); Mean Platelet Volume 7.1; Microcytosis Slight; Monocytes # (A) 0.4 k/uL (0-1.0); Monocytes % (A) 6 %; Neutrophils # (A) 3.8 k/uL (1.3-7.7); Neutrophils % (A) 58 %; Platelet Count 294 k/uL (150-450); RBC 4.35 m/uL (3.80-5.40); RDW 22.2 % (11.5-15.5); WBC 6.6 k/uL (3.8-10.6)
[2020-05-09 08:43] LABS: Calcium 8.3 mg/dL (8.4-10.2); Potassium 3.7 mmol/L (3.5-5.1); Total Bilirubin 0.4 mg/dL (0.2-1.3); Total Protein 6.4 g/dL (6.3-8.2)
[2020-05-09] MEDS: SYMBICORT 80-4.5 MCG INHALER INHALATION SCH ×2 (09:03→20:19)
[2020-05-09 11:26] LABS: Glucose,Whole Blood 103 mg/dL (75-99)
[2020-05-09] MEDS ORDERED: ZOLPIDEM 5 MG TAB PO PRN (13:38)
--- NOTE | 2020-05-09 13:53 | P.PN ---
Subjective Progress Note Date: 05/09/20 CHIEF COMPLAINT: Abdominal pain HISTORY OF PRESENT ILLNESS: Patient seen and examined with Dr. Govea. She did have a bowel movement yesterday. She is reporting improvement in her abdominal pain. She is sitting at the bedside chair. She is afebrile. WBC 6.6. Hemoglobin 10.9. C. diff negative. She's currently on a regular diet. Levaquin was apparently discontinued due to itching. PHYSICAL EXAM: VITAL SIGNS: Reviewed. GENERAL: Well-developed in no acute distress. HEENT: No sclera icterus. Extraocular movements grossly intact. Moist buccal mucosa. Head is atraumatic, normocephalic. ABDOMEN: Soft. Nondistended. Nontender. NEUROLOGIC: Alert and oriented. Cranial nerves II through XII grossly intact. ASSESSMENT: 1. Abdominal pain 2. Possible colitis 3. UTI 4. Recent right colectomy secondary to a right colon mass 5. Urinary retention. Patient did require Pittman catheter to be reinserted. We'll await discharge recommendations per Urology PLAN: -Continue regular diet -Continue IV antibiotics -Consult infectious disease for antibiotic recommendations for patient's colitis and UTI. Patient has multiple antibiotic ALLERGIES -DVT prophylaxis Lovenox -Anticipate discharge possibly tomorrow back to [facility] Physician [employer] note has been reviewed by physician. Signing provider agrees with the documented findings, assessment, and plan of care. Objective - Vital Signs Vital signs: Vital Signs Temp 97.8 F 05/09/20 07:00 Pulse 87 05/09/20 07:00 Resp 17 05/09/20 07:00 BP 139/57 05/09/20 07:00 Pulse Ox 96 05/09/20 07:00 Intake & Output 05/08/20 05/09/20 05/09/20 18:59 06:59 18:59 Intake Total 600 Output Total 1450 500 900 Balance -1450 100 -900 Intake: Oral 600 Output: Urine 1450 500 900 Uretheral (Pittman) 900 Other: Voiding Method Indwelling Catheter Indwelling Catheter Indwelling Catheter # Voids 1 - Labs CBC & Chem 7: 05/09/20 07:51 05/09/20 07:51 Labs: Abnormal Lab Results - Last 24 Hours (Table) 05/08/20 05/09/20 05/09/20 Range/Units 20:39 07:51 07:51 Hgb 10.9 L (11.4-16.0) gm/dL MCHC 29.0 L (31.0-37.0) g/dL RDW 22.2 H (11.5-15.5) % Chloride 112 H (98-107) mmol/L POC Glucose (mg/dL) 145 H (75-99) mg/dL Calcium 8.3 L (8.4-10.2) mg/dL Albumin 3.0 L (3.5-5.0) g/dL 05/09/20 Range/Units 11:25 Hgb (11.4-16.0) gm/dL MCHC (31.0-37.0) g/dL RDW (11.5-15.5) % Chloride (98-107) mmol/L POC Glucose (mg/dL) 103 H (75-99) mg/dL Calcium (8.4-10.2) mg/dL Albumin (3.5-5.0) g/dL
[2020-05-09] MEDS: ALPRAZolam 0.25 MG TAB PO PRN ×2 (16:21→21:58)
[2020-05-09 16:31] LABS: Glucose,Whole Blood 122 mg/dL (75-99)
--- NOTE | 2020-05-09 18:40 | P.PN ---
Subjective Progress Note Date: 05/09/20 Sonal Ulloa, is an 89-year-old female, with recent history of right colectomy for right colon mass on 03/27/2020, who currently resides at [facility] on the [facility], patient was complaining of having abdominal pain, nurse noticed some abdominal distention, patient was sent to [facility] emergency room, she was evaluated and had evidence of sitting confidential wall thickening of the colon at the anastomosis site, patient was started on IV antibiotic and was admitted to medical floor, patient also had evidence of urinary tract infection and a 4 mm nonobstructing right renal calculus and evidence of bladder distention with possible urinary retention, urology consultation was requested. On review of systems patient is alert and oriented 3 she is complaining of mild pain in the abdomen otherwise she denies any complaints there is no fever or chills no headache or dizziness no chest pain no shortness of breath no cough no nausea or vomiting no diarrhea no blood in the stools no burning with urination no frequency or urgency and no hematuria. On 05/07/2020 patient was seen and examined on the medical floor she is alert and oriented 3 in no apparent distress she is complaining of diarrhea and abdominal discomfort otherwise she denies any complaints, there is no fever or chills no headache or dizziness no chest pain no shortness of breath no cough no burning with urination no frequency or urgency and no hematuria. On 05/08/2020, patient was seen and examined on the medical floor she is alert and oriented 3 in no apparent distress , diarrhea has improved but still present , C. diff toxin was negative , there is no fever or chills no headache or dizziness no chest pain no shortness of breath no cough no nausea or vomiting no abdominal pain no diarrhea no burning with urination no frequency or urgency no hematuria. On 05/09/2020 patient was seen and examined on the medical floor she is alert and oriented 3 in no distress there is no fever or chills no headache or dizziness no chest pain no shortness of breath abdominal pain has improved significantly no nausea or vomiting no burning with urination no frequency or urgency no hematuria Objective - Vital Signs Vital signs: Vital Signs Temp 97.7 F 05/09/20 14:11 Pulse 70 05/09/20 14:11 Resp 18 05/09/20 14:11 BP 132/66 05/09/20 14:11 Pulse Ox 100 08/18/20 14:11 Intake & Output 05/08/20 05/09/20 05/09/20 18:59 06:59 18:59 Intake Total 600 Output Total 6607 571 7800 Balance -1450 100 -1850 Intake: Oral 600 Output: Urine 5766 930 0002 Uretheral (Pittman) 900 Other: Voiding Method Indwelling Catheter Indwelling Catheter Indwelling Catheter # Voids 1 - Exam In general patient is alert and oriented 3 in no apparent distress HEENT head normocephalic and atraumatic Neck is supple no JVD no goiter no lymphadenopathy Chest exam reveals a few scattered crackles no wheezing Cardiac exam reveals regular heart sounds no murmurs Abdomen is soft, with mild diffuse tenderness no organomegaly with normal bowel sounds Extremity exam reveals no edema no cyanosis or clubbing Neurological examination reveals no gross focal deficit - Labs CBC & Chem 7: 05/09/20 07:51 05/09/20 07:51 Labs: Abnormal Lab Results - Last 24 Hours (Table) 05/08/20 05/09/20 05/09/20 Range/Units 20:39 07:51 07:51 Hgb 10.9 L (11.4-16.0) gm/dL MCHC 29.0 L (31.0-37.0) g/dL RDW 22.2 H (11.5-15.5) % Chloride 112 H (98-107) mmol/L POC Glucose (mg/dL) 145 H (75-99) mg/dL Calcium 8.3 L (8.4-10.2) mg/dL Albumin 3.0 L (3.5-5.0) g/dL 05/09/20 Range/Units 11:25 Hgb (11.4-16.0) gm/dL MCHC (31.0-37.0) g/dL RDW (11.5-15.5) % Chloride (98-107) mmol/L POC Glucose (mg/dL) 103 H (75-99) mg/dL Calcium (8.4-10.2) mg/dL Albumin (3.5-5.0) g/dL Assessment and Plan Plan: 1. Abdominal pain, with recent right colectomy due to right colon mass, with evidence of wall thickening of the colon at the anastomosis site with possible colitis, patient was started on IV antibiotic and admitted under surgery medical consultation was requested for management while hospitalized. Today patient is having diarrhea stools for Clostridium difficile was negative 2. Evidence of urinary tract infection continue with current antibiotics awaiting urine culture results 3. Possible urinary retention, and evidence of right renal calculus, urology co nsultation was requested. 4. Dehydration was acute kidney injury due to prerenal azotemia creatinine is up to 1.20 it was 0.97 on 04/17/2020 5. Underlying history of hypertension well-controlled 6. Underlying history of insulin-dependent diabetes mellitus 7. Underlying history of gastroesophageal reflux disease At this time medication and labs were reviewed home medications reorder For DVT prophylaxis will start subcu Lovenox IV Levaquin was discontinued due to itching infectious disease consultation was requested Awaiting urine culture results Recheck labs in a.m. Awaiting further input from surgery and urology
[2020-05-09] MEDS: TIOTROPIUM 18 MCG/PUFF INHALER INHALATION SCH (20:19)
[2020-05-09] MEDS: MONTELUKAST 10 MG TAB PO SCH (20:40)
[2020-05-09 21:50] LABS: Glucose,Whole Blood 132 mg/dL (75-99)
--- NOTE | 2020-05-09 22:24 | P.CONS ---
History of Present Illness - Reason for Consult Consult date: 05/09/20 Colitis and UTI Requesting physician: Sander Govea - Chief Complaint Abdominal pain x few days - History of Present Illness Patient is 89-year-old female who is status post laparotomy and right hemicolectomy for colon cancer surgery was done on 03/27/2020 patient subsequently discharged to [facility] on the leg for rehabilitation, patient was sent back to [facility] ER as the patient complaining of abdominal pain and the nurses noticed some abdominal distention with the symptoms the patient was evaluated by the physician on arrival. The patient was afebrile patient did have a CT of abdominal pelvis completed we did shows a midline laparotomy parti al right hemicolectomy with anastomosis at the proximal transverse colon mild circumferential wall thickening of the colon and anastomosis and indigestion and straining suggestive of nonspecific [id number] colitis that was also 4 mm nonobstructing right renal calculus, patient has been treated only with Flagyl because of her multiple antibiotic ALLERGIES infectious disease was consulted today for further management of antibiotic for colitis and possible UTI as the patient did have positive UA, at the time my evaluation today on 05/09/2020 the patient is afebrile she has been complaining of abdominal pain mostly lower abdominal area unfortunately patient underwent a good historian and is unable to quantify it any further some nausea but no vomiting denies having any diarrhea no burning or frequency of urine Review of Systems Positive point has been mentioned in the HPI rest of the systems are negative Past Medical History Past Medical History: Atrial Fibrillation, Coronary Artery Disease (CAD), Chest Pain / Angina, Heart Failure, COPD, CVA/TIA, Diabetes Mellitus, GERD/Reflux, Hearing Disorder / Deafness, Hyperlipidemia, Hypertension, Myocardial Infarction ([place]), Osteoarthritis (OA), Pneumonia, Renal Disease, Skin Disorder Additional Past Medical History / Comment(s): IDDM type II, frequent pneumonia, aspiration pneumonia with sepsis, renal insufficiency, recurrent UTIs, TIA x 3, difficulty swallowing-crushes meds and puts them in yogurt-past EGD/dilations, anemia, eczema, "lazy bowel" but pt states anymore she goes from diarrhea to constipation easily, generalized arthritis, chronic back pain, hiatal hernia Last Myocardial Infarction Date:: 09/21/17 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 MDRO Source:: VRE URINE Past Surgical History: Bowel Resection, Cholecystectomy, Heart Catheterization With Stent Additional Past Surgical History / Comment(s): cataracts w/lens implants, ectopic with one ovary/tube removed, heart caths :04/30/96 stent to rca, 03/18/2000 stent to mid rca, 07/22/17 stent to lad Past Anesthesia/Blood Transfusion Reactions: Previous Problems w/ Anesthesia Additional Past Anesthesia/Blood Transfusion Reaction / Comm: difficulty breathing after anesthesia Date of Last Stent Placement:: 06/2017 Past Psychological History: Depression Additional Psychological History / Comment(s): Pt resides in an apartment at [facility]. She ambulates with a walker. Her daughter is very helpful and is in an apt above her. Pt has chore person from [employer] on aging. She no longer drives, family takes her to [employer]. She goes up to her daughter's for supper and manages her own medication. Smoking Status: Never smoker Past Alcohol Use History: None Reported Additional Past Alcohol Use History / Comment(s): Patient has history of smoking 2 packs per day started smoking at age 16 Past Drug Use History: None Reported - Past Family History Father History Unknown: Yes Family Medical History: Myocardial Infarction ([place]) Additional Family Medical History / Comment(s): Father had a [place] at the age of 50 yrs. He lived to be 75yrs old. Mother History Unknown: Yes Family Medical History: Myocardial Infarction ([place]) Additional Family Medical History / Comment(s): Mother of a [place] at about age 80yrs. Medications and Allergies Home Medications Medication Instructions Recorded Confirmed Type Montelukast [Singulair] 10 mg PO HS@209905/17/17 05/05/20 History Fluticasone/Salmeterol [Advair 1 puff INHALATION RT-BID@0900,2100 05/18/17 05/05/20 History 250-50 Diskus] Sennosides [Senna] 8.6 mg PO DAILY@0900 07/18/17 05/05/20 History Nitroglycerin Sl Tabs [Nitrostat] 0.4 mg SUBLINGUAL Q5M PRN #25 tab 07/23/17 05/05/20 Rx Acetaminophen [Tylenol] 1,000 mg PO Q4H PRN 05/14/18 05/05/20 History Ferrous Sulfate [Feosol] 325 mg PO BID@0900,1700 11/27/19 05/05/20 History Furosemide [Lasix] 40 mg PO DAILY@0903/27/20 05/05/20 History Isosorbide Mononitrate ER [Imdur] 30 mg PO DAILY@0900 03/27/20 05/05/20 History Pantoprazole [Protonix] 40 mg PO BID@0900,209903/27/20 05/05/20 History Tiotropium [place] [Spiriva] 1 cap INHALATION RT-DAILY@169903/27/20 05/05/20 History bisacodyL [Dulcolax] 10 mg RECTAL Q72H PRN 03/27/20 05/05/20 History Oxazepam 15 mg PO HS PRN 30 Days #30 cap 04/17/20 05/05/20 Rx Darbepoetin Adrian [Aranesp] 40 mcg SQ TH 05/05/20 05/05/20 History Glucerna Shake 1 can PO DAILY@89905/05/20 05/05/20 History HYDROcodone/APAP 5-325MG [[place] 1 tab PO Q6H PRN 05/05/20 05/05/20 History 5-325] Insulin Glargine,Hum.rec.anlog 8 unit SQ HS@209905/05/20 05/05/20 History [Basaglar Kwikpen U-100] Metoprolol Tartrate [Lopressor] 50 mg PO BID@0900,209905/05/20 05/05/20 History amLODIPine [Norvasc] 5 mg PO BID@0900,209905/05/20 05/05/20 History Allergies Allergy/AdvReac Type Severity Reaction Status Date / Time adhesive tape Allergy Rash/Hives Verified 05/05/20 20:35 amoxicillin trihydrate Allergy Unknown Verified 05/05/20 20:35 [From Augmentin] clindamycin HCl Allergy Unknown Verified 05/05/20 20:35 [From Cleocin] clindamycin palmitate HCl Allergy Unknown Verified 05/05/20 20:35 [From Cleocin] clindamycin phosphate Allergy Unknown Verified 05/05/20 20:35 [From Cleocin] codeine Allergy Unknown Verified 05/05/20 20:35 nitrofurantoin Allergy Unknown Verified 05/05/20 20:35 [From Macrobid] nitrofurantoin Allergy Unknown Verified 05/05/20 20:35 macrocrystalline [From Macrobid] Penicillins Allergy Unknown Verified 05/05/20 20:35 potassium clavulanate Allergy Unknown Verified 05/05/20 20:35 [From Augmentin] prednisone Allergy Unknown Verified 05/05/20 20:35 quinine Allergy Unknown Verified 05/05/20 20:35 Sulfa (Sulfonamide Allergy Unknown Verified 05/05/20 20:35 Antibiotics) sulfamethoxazole Allergy Unknown Verified 05/05/20 20:35 [From Bactrim] trimethoprim [From Bactrim] Allergy Unknown Verified 05/05/20 20:35 levofloxacin [From Levaquin] AdvReac Intermediate Itching Verified 05/08/20 01:12 lorazepam [From Ativan] AdvReac Confusion Verified 05/05/20 20:35 Physical Exam Vitals: Vital Signs Temp Pulse Resp BP BP Pulse Ox 05/09/20 14:11 97.7 F 70 18 132/66 100 05/09/20 07:00 97.8 F 87 17 139/57 96 05/09/20 04:00 20 05/09/20 01:30 97.6 F 72 20 144/67 100 05/08/20 23:57 18 05/08/20 20:00 18 05/08/20 19:30 98.3 F 92 20 115/80 98 05/08/20 15:30 18 05/08/20 14:47 97.9 F 74 18 137/66 100 Intake and Output 05/08/20 05/09/20 05/09/20 22:59 06:59 14:59 Intake Total 500 100 Output Total 159 344 2744 Balance -100 -400 -1850 Intake: Oral 500 100 Output: Urine 383 128 4888 Uretheral (Pittman) 900 Other: Voiding Method Indwelling Catheter Indwelling Catheter Indwelling Catheter GENERAL DESCRIPTION: An elderly female lying in bed, no distress. No tachypnea or accessory muscle of respiration use. HEENT: Shows Pallor , no scleral icterus. Oral mucous membrane is dry. No pharyngeal erythema or thrush NECK: Trachea central, no thyromegaly. LUNGS: Unlabored breathing. Clear to auscultation anteriorly. No wheeze or crackle. HEART: S1, S2, regular rate and rhythm. No loud murmur ABDOMEN: Soft, mild lower abdominal tenderness , no guarding or rigidity, no organomegaly EXTREMITIES: No edema of feet. SKIN: No rash, no masses palpable. NEUROLOGICAL: The patient is awake, alert, oriented x2, mood and affect normal. Results CBC & Chem 7: 05/09/20 07:51 05/09/20 07:51 Labs: Abnormal Lab Results - Last 24 Hours (Table) 05/08/20 05/09/20 05/09/20 Range/Units 20:39 07:51 07:51 Hgb 10.9 L (11.4-16.0) gm/dL MCHC 29.0 L (31.0-37.0) g/dL RDW 22.2 H (11.5-15.5) % Chloride 112 H (98-107) mmol/L POC Glucose (mg/dL) 145 H (75-99) mg/dL Calcium 8.3 L (8.4-10.2) mg/dL Albumin 3.0 L (3.5-5.0) g/dL 05/09/20 Range/Units 11:25 Hgb (11.4-16.0) gm/dL MCHC (31.0-37.0) g/dL RDW (11.5-15.5) % Chloride (98-107) mmol/L POC Glucose (mg/dL) 103 H (75-99) mg/dL Calcium (8.4-10.2) mg/dL Albumin (3.5-5.0) g/dL Assessment and Plan Assessment: 1- patient presented to the hospital with abdominal pain in this patient who recently did have right partial hemicolectomy with a CT of abdominal pelvis was suspicious for colitis at the anastomosis site but did not mention any perforation or leakage, 24 for the enteric gram-negative both aerobes and anaerobes 2- positive UA but no urinary symptoms possible asymptomatic bacteriuria urine culture negative 3- Patient with multiple antibiotic ALLERGIES that would limit the number of antibiotic safe to use (1) Allergy to multiple antibiotics Current Visit: Yes Status: Acute Code(s): Z88.1 - ALLERGY STATUS TO OTHER ANTIBIOTIC AGENTS STATUS SNOMED Code(s): 054939884 (2) Colitis Current Visit: Yes Status: Acute Code(s): K52.9 - NONINFECTIVE GASTROENTERITIS AND COLITIS, UNSPECIFIED SNOMED Code(s): 36137591 Plan: 1-we will add Rocephin 2 g daily and continue with the Flagyl 2-gentle IV fluid We will follow on clinical condition and cultures to further adjust medication if needed Thank you for this consultation will follow this patient with you Time with Patient: Greater than 30
[2020-05-09] MEDS: SERAX PO PRN (23:41)
[2020-05-10] MEDS: SODIUM CHLORIDE 0.9% 1,000 ML IV SCH ×2 (04:52→07:57)
[2020-05-10 07:07] LABS: Glucose,Whole Blood 82 mg/dL (75-99)
[2020-05-10 07:09] LABS: Anisocytosis Moderate; Basophils # (A) 0.1 k/uL (0-0.2); Basophils % (A) 1 %; Eosinophils # (A) 0.7 k/uL (0-0.7); Eosinophils % (A) 10 %; HCT 36.6 % (34.0-46.0); HGB 10.6 gm/dL (11.4-16.0); Hypochromasia Marked; Lymphocytes # (A) 1.4 k/uL (1.0-4.8); Lymphocytes % (A) 19 %; MCH 25.2 pg (25.0-35.0); Microcytosis Slight; Monocytes # (A) 0.5 k/uL (0-1.0); Monocytes % (A) 7 %; Neutrophils # (A) 4.4 k/uL (1.3-7.7); Neutrophils % (A) 62 %; Platelet Count 308 k/uL (150-450); RBC 4.21 m/uL (3.80-5.40); RDW 21.7 % (11.5-15.5)
[2020-05-10 07:13] LABS: Albumin 2.7 g/dL (3.5-5.0); Calcium 8.3 mg/dL (8.4-10.2); Potassium 3.6 mmol/L (3.5-5.1); Total Bilirubin 0.3 mg/dL (0.2-1.3); Total Protein 5.8 g/dL (6.3-8.2)
[2020-05-10] MEDS: ENOXAPARIN 40 MG/0.4 ML SYRINGE SQ SCH (07:54)
[2020-05-10] MEDS: amLODIPine 5 MG TAB PO SCH (07:55)
[2020-05-10] MEDS: SENNOSIDES 8.6 MG TAB PO SCH (07:55)
[2020-05-10] MEDS: PANTOPRAZOLE 40 MG TABLET PO SCH (07:55)
[2020-05-10] MEDS: FUROSEMIDE 40 MG TAB PO SCH (07:55)
[2020-05-10] MEDS: METOPROLOL TARTRATE 50 MG TAB PO SCH (07:55)
[2020-05-10] MEDS: ISOSORBIDE MONONITRATE ER 30 MG TAB.ER.24H PO SCH (07:55)
[2020-05-10] MEDS: metroNIDAZOLE-NS PMX 500 MG in SALINE 1 100ML.BAG IVPB SCH (07:56)
[2020-05-10] MEDS: FERROUS SULFATE 325 MG TAB PO SCH (07:56)
[2020-05-10 08:24] VITALS: BP 140/63; PULSE 59; RESP 17; TEMP 97.8
--- NOTE | 2020-05-10 11:15 | CDI ---
Documentation Clarification Form Date: 05/10/2020 11:08:44 AM From: Che Jackson RN, CCDS Admit Date: 05/05/2020 07:12:00 PM Patient Name: Sonal Ulloa Visit Number: [id number] ATTENTION: The Clinical Documentation Specialists (CDI) and [facility] Coding Staff appreciate your assistance in clarifying documentation. Please respond to the clarification below the line at the bottom and electronically sign. The CDI & [facility] Coding staff will review the response and follow-up if needed. Please note: Queries are made part of the Legal Health Record. If you have any questions, please contact the author of this message via ITS. Dr. Dai Bacon Anemia is documented in the PMH and requires further specificity. History/Risk Factors: Anemia, IDDM 2, ILIANA, Gerd Clinical indicators: Hemoglobin: 10.2/10/10.4/10.9/10.6 Hematocrit: 34.2/34.1/35.7/37.5/36.6 Treatment: Aranesp 40 Mcg SQ every Feosol 325 mg PO BID 0.9% NS @ 100 cc/hr In order to capture the severity of condition, please clarify the type of anemia and etiology if known:. Chronic blood loss anemia Iron deficiency anemia Anemia due to malignancy Nutritional anemia Anemia of chronic disease Unable to determine Other, please specify (Last Form Revision: November 2019) Chronic blood loss anemia MTDD
[2020-05-10 11:22] LABS: Glucose,Whole Blood 129 mg/dL (75-99)
--- NOTE | 2020-05-10 11:25 | CDI ---
Documentation Clarification Form Date: 05/10/2020 11:18:12 AM From: Che Jackson RN, CCDS Admit Date: 05/05/2020 07:12:00 PM Patient Name: Sonal Ulloa Visit Number: [id number] ATTENTION: The Clinical Documentation Specialists (CDI) and [facility] Coding Staff appreciate your assistance in clarifying documentation. Please respond to the clarification below the line at the bottom and electronically sign. The CDI & [facility] Coding staff will review the response and follow-up if needed. Please note: Queries are made part of the Legal Health Record. If you have any questions, please contact the author of this message via ITS. Dr. Dai Bacon Atrial Fibrillation is documented in the PMH and requires further specificity. History/Risk Factors: Atrial Fib, CAD, Chest pain, Anemia, CHF, COPD, CVA, DM, [place], ILIANA Clinical Indicators: 05/05/2020 EKG: NSR with PAC & PVC's Treatment: Norvasc 5 mg PO BID Lasix 40 mg QD Imdur 30 mg PO QD Lopressor 50 mg PO BID In your professional opinion, can you please clarify the type of Atrial Fibrillation, if known? Chronic/Permanent Paroxysmal Persistent Other, please specify Unable to determine (Last Revision: December 2017) MTDD
[2020-05-10] MEDS: SYMBICORT 80-4.5 MCG INHALER INHALATION SCH (11:40)
--- NOTE | 2020-05-10 13:39 | P.DS ---
Providers Date of admission: 05/05/20 19:12 Expected date of discharge: 05/10/20 Attending physician: Sander Govea Consults: 05/05/20 19:11 Consult Physician Routine Consulting Provider: Dai Bacon Consult Reason/Comments: medical care Do you want consulting provider notified?: Yes 05/06/20 12:29 Consult Physician Routine Consulting Provider: Lc Mars Consult Reason/Comments: bladder distention, kidney stone Do you want consulting provider notified?: Yes 05/09/20 13:50 Consult Physician Routine Consulting Provider: Marilyn Smyth Consult Reason/Comments: Antibiotic recommendations for colitis and UTI Do you want consulting provider notified?: Yes Primary care physician: Dai Bacon Hospital Course: Discharge diagnosis 1. Abdominal pain 2. Possible colitis 3. UTI 4. Recent right colectomy secondary to a right colon mass 5. Urinary retention. Patient did require Pittman catheter to be reinserted. We'll await discharge recommendations per Urology 6. Diabetes mellitus type 2 episodes of hypoglycemia hospitalization. Patient's insulin was discontinued by medicine. Hospital course Patient being the hospital with complaints of abdominal pain. She had undergone a recent colectomy.Patient's CAT scan shows some possible inflammation of the remaining right colon. Patient was started on IV antibiotics for possible colitis and a UTI. She initially was placed on Levaquin but developed some itching. The Levaquin was discontinued and infectious disease was consulted due to her multiple ALLERGY reactions to antibiotics. Dr. Burger recommended Rocephin and Flagyl. Patient has tolerated this well. He is recommending Ceftin and Flagyl for 10 days after discharge. She's been afebrile. Tolerating regular diet. Her abdominal pain has improved. She did have urinary retention was seen by urology. Ranitidine trial was completed yesterday. Patient was unable to urinate on her own and Pittman catheter had to be reinserted. [facility] Pittman [facility] one [facility]. Then patient can undergo voiding trials. Further management per medical team for her urinary retention. Patient is stable for discharge to [facility]. Physician Director Of Housing note has been reviewed by physician. Signing provider agrees with the documented findings, assessment, and plan of care. Patient Condition at Discharge: Stable Plan - Discharge Summary Discharge Rx Participant: No New Discharge Prescriptions: New Cefuroxime Axetil [Ceftin] 500 mg PO BID 10 Days #20 tab metroNIDAZOLE [Flagyl] 500 mg PO Q8HR #30 tab Continue Montelukast [Singulair] 10 mg PO HS@2099 Fluticasone/Salmeterol [Advair 250-50 Diskus] 1 puff INHALATION RT- BID@0900,2100 Sennosides [Senna] 8.6 mg PO DAILY@0900 Nitroglycerin Sl Tabs [Nitrostat] 0.4 mg SUBLINGUAL Q5M PRN #25 tab PRN Reason: Chest Pain Acetaminophen [Tylenol] 1,000 mg PO Q4H PRN PRN Reason: Pain Ferrous Sulfate [Feosol] 325 mg PO BID@0900,1700 bisacodyL [Dulcolax] 10 mg RECTAL Q72H PRN PRN Reason: Constipation Furosemide [Lasix] 40 mg PO DAILY@0900 Isosorbide Mononitrate ER [Imdur] 30 mg PO DAILY@0900 Pantoprazole [Protonix] 40 mg PO BID@0900,2100 Tiotropium [place] [Spiriva] 1 cap INHALATION RT-DAILY@1700 Oxazepam 15 mg PO HS PRN 30 Days #30 cap PRN Reason: Insomnia Glucerna Shake 1 can PO DAILY@0900 Metoprolol Tartrate [Lopressor] 50 mg PO BID@0900,2099 amLODIPine [Norvasc] 5 mg PO BID@0900,2100 Darbepoetin Adrian [Aranesp] 40 mcg SQ TH HYDROcodone/APAP 5-325MG [[place] 5-325] 1 tab PO Q6H PRN #12 tab PRN Reason: Pain Discontinued Insulin Glargine,Hum.rec.anlog [Basaglar Kwikpen U-100] 8 unit SQ HS@2100 Discharge Medication List Montelukast [Singulair] 10 mg PO HS@209905/17/17 [History] Fluticasone/Salmeterol [Advair 250-50 Diskus] 1 puff INHALATION RT-BID@0900,2100 05/18/17 [History] Sennosides [Senna] 8.6 mg PO DAILY@0900 07/18/17 [History] Nitroglycerin Sl Tabs [Nitrostat] 0.4 mg SUBLINGUAL Q5M PRN #25 tab 07/23/17 [Rx] Acetaminophen [Tylenol] 1,000 mg PO Q4H PRN 05/14/18 [History] Ferrous Sulfate [Feosol] 325 mg PO BID@0900,1700 11/27/19 [History] Furosemide [Lasix] 40 mg PO DAILY@0900 03/27/20 [History] Isosorbide Mononitrate ER [Imdur] 30 mg PO DAILY@89903/27/20 [History] Pantoprazole [Protonix] 40 mg PO BID@0900,209903/27/20 [History] Tiotropium [place] [Spiriva] 1 cap INHALATION RT-DAILY@169903/27/20 [History] bisacodyL [Dulcolax] 10 mg RECTAL Q72H PRN 03/27/20 [History] Oxazepam 15 mg PO HS PRN 30 Days #30 cap 04/17/20 [Rx] Darbepoetin Adrian [Aranesp] 40 mcg SQ TH 05/05/20 [History] Glucerna Shake 1 can PO DAILY@89905/05/20 [History] Metoprolol Tartrate [Lopressor] 50 mg PO BID@0900,209905/05/20 [History] amLODIPine [Norvasc] 5 mg PO BID@0900,209905/05/20 [History] Cefuroxime Axetil [Ceftin] 500 mg PO BID 10 Days #20 tab 05/10/20 [Rx] HYDROcodone/APAP 5-325MG [[place] 5-325] 1 tab PO Q6H PRN #12 tab 05/10/20 [Rx] metroNIDAZOLE [Flagyl] 500 mg PO Q8HR #30 tab 05/10/20 [Rx] Follow up Appointment(s)/Referral(s): Dai Bacon MD [Primary Care Provider] - 1 Week Sander Govea MD [STAFF PHYSICIAN] - 1 Week Activity/Diet/Wound Care/Special Instructions: regency Diet: Regular Discharge Disposition: TRANSFER TO SNF/ECF
--- NOTE | 2020-05-10 15:18 | PN ---
PROGRESS NOTE DATE OF SERVICE: 05/10/2020 REASON FOR FOLLOWUP: Colitis. INTERVAL HISTORY: Patient is currently afebrile. She was seen on rounds this morning. The patient has problem with some lower abdominal pain, but no worsening. No chest pain or cough. No diarrhea. No nausea, vomiting. PHYSICAL EXAMINATION: Blood pressure 140/63 with a pulse of 59. Temperature is 97.8. She is 93% on 2 L nasal cannula. General description is an elderly female lying in bed in no distress. Respiratory system: Unlabored breathing, clear to auscultation anteriorly. Heart S1, S2. Regular rate and rhythm. Abdomen soft, no tenderness. LABS: Hemoglobin is 10.1, white count 7.3, BUN of 11, creatinine 0.89. Urine is negative. DIAGNOSTIC IMPRESSION AND PLAN: Patient with colitis at the site of anastomosis with recent right partial colectomy. No evidence of any perforation. The patient tolerated Rocephin without any problem. Plan to finish therapy, short course of oral Ceftin and Flagyl for 10 days and close outpatient followup. MMODL / IJN: [id number] /
[2020-05-10] MEDS ORDERED: metroNIDAZOLE 500 MG TAB PO SCH (16:00)
--- NOTE | 2020-05-10 16:15 | P.PN ---
Subjective Progress Note Date: 05/10/20 Sonal Ulloa, is an 89-year-old female, with recent history of right colectomy for right colon mass on 03/27/2020, who currently resides at [facility] on the [facility], patient was complaining of having abdominal pain, nurse noticed some abdominal distention, patient was sent to [facility] emergency room, she was evaluated and had evidence of sitting confidential wall thickening of the colon at the anastomosis site, patient was started on IV antibiotic and was admitted to medical floor, patient also had evidence of urinary tract infection and a 4 mm nonobstructing right renal calculus and evidence of bladder distention with possible urinary retention, urology consultation was requested. On review of systems patient is alert and oriented 3 she is complaining of mild pain in the abdomen otherwise she denies any complaints there is no fever or chills no headache or dizziness no chest pain no shortness of breath no cough no nausea or vomiting no diarrhea no blood in the stools no burning with urination no frequency or urgency and no hematuria. On 05/07/2020 patient was seen and examined on the medical floor she is alert and oriented 3 in no apparent distress she is complaining of diarrhea and abdominal discomfort otherwise she denies any complaints, there is no fever or chills no headache or dizziness no chest pain no shortness of breath no cough no burning with urination no frequency or urgency and no hematuria. On 05/08/2020, patient was seen and examined on the medical floor she is alert and oriented 3 in no apparent distress , diarrhea has improved but still present , C. diff toxin was negative , there is no fever or chills no headache or dizziness no chest pain no shortness of breath no cough no nausea or vomiting no abdominal pain no diarrhea no burning with urination no frequency or urgency no hematuria. On 05/09/2020 patient was seen and examined on the medical floor she is alert and oriented 3 in no distress there is no fever or chills no headache or dizziness no chest pain no shortness of breath abdominal pain has improved significantly no nausea or vomiting no burning with urination no frequency or urgency no hematuria. On 05/10/2020 patient was seen and examined on the medical floor she is alert and oriented 3 in no distress abdominal pain has improved there is no nausea no vomiting no diarrhea no fever or chills. During this admission glucose level was on the low side and her dose of insulin was discontinued. Will continue to monitor glucose closely at the custodial and assess if patient needs any further treatment for her diabetes. Patient is cleared from medical standpoint for discharge back to the custodial. Objective - Vital Signs Vital signs: Vital Signs Temp 97.8 F 05/10/20 07:00 Pulse 59 L 05/10/20 07:00 Resp 17 05/10/20 07:00 BP 140/63 05/10/20 07:00 Pulse Ox 93 L 05/10/20 07:00 Intake & Output 05/09/20 05/10/20 05/10/20 18:59 06:59 18:59 Intake Total 1320 Output Total 1850 2400 Balance -1850 -1080 Intake: Intake, IV Titration 1200 Amount Sodium Chloride 0.9% 1, 1100 000 ml @ 100 mls/hr IV . Q10H [facility] Rx#:[id number] metroNIDAZOLE-NS PMX 500 100 mg In Saline 1 100ml.bag @ 100 mls/hr IVPB Q8HR [facility] Rx#:[id number] Oral 120 Output: Urine 1850 2400 Uretheral ([place]) 900 1000 Post Void Residual 0 Other: Voiding Method Indwelling Catheter Indwelling Catheter Indwelling Catheter # Voids 1 - Exam In general patient is alert and oriented 3 in no apparent distress HEENT head normocephalic and atraumatic Neck is supple no JVD no goiter no lymphadenopathy Chest exam reveals a few scattered crackles no wheezing Cardiac exam reveals regular heart sounds no murmurs Abdomen is soft, with mild diffuse tenderness no organomegaly with normal bowel sounds Extremity exam reveals no edema no cyanosis or clubbing Neurological examination reveals no gross focal deficit - Labs CBC & Chem 7: 05/10/20 06:29 05/10/20 06:29 Labs: Abnormal Lab Results - Last 24 Hours (Table) 05/09/20 05/09/20 05/09/20 Range/Units 11:25 16:30 21:02 Hgb (11.4-16.0) gm/dL MCHC (31.0-37.0) g/dL RDW (11.5-15.5) % Chloride (98-107) mmol/L POC Glucose (mg/dL) 103 H 122 H 132 H (75-99) mg/dL Calcium (8.4-10.2) mg/dL AST (14-36) U/L Total Protein (6.3-8.2) g/dL Albumin (3.5-5.0) g/dL 05/10/20 05/10/20 Range/Units 06:29 06:29 Hgb 10.6 L (11.4-16.0) gm/dL MCHC 29.0 L (31.0-37.0) g/dL RDW 21.7 H (11.5-15.5) % Chloride 112 H (98-107) mmol/L POC Glucose (mg/dL) (75-99) mg/dL Calcium 8.3 L (8.4-10.2) mg/dL AST 40 H (14-36) U/L Total Protein 5.8 L (6.3-8.2) g/dL Albumin 2.7 L (3.5-5.0) g/dL Assessment and Plan Plan: 1. Abdominal pain, with recent right colectomy due to right colon mass, with evidence of wall thickening of the colon at the anastomosis site with possible colitis, patient was started on IV antibiotic and admitted under surgery medical consultation was requested for management while hospitalized. Today patient is having diarrhea stools for Clostridium difficile was negative 2. Evidence of urinary tract infection continue with current antibiotics awaiting urine culture results 3. Possible urinary retention, and evidence of right renal calculus, urology consultation was requested. 4. Dehydration was acute kidney injury due to prerenal azotemia creatinine is up to 1.20 it was 0.97 on 04/17/2020 5. Underlying history of hypertension well-controlled 6. Underlying history of insulin-dependent diabetes mellitus 7. Underlying history of gastroesophageal reflux disease At this time medication and labs were reviewed home medications reorder For DVT prophylaxis will start subcu Lovenox IV Levaquin was discontinued due to itching infectious disease consultation was requested Awaiting urine culture results Recheck labs in a.m. Awaiting further input from surgery and urology
[2020-05-11] MEDS ORDERED: DARBEPOETIN ALFA 40 MCG/0.4 ML SYRINGE SQ SCH (09:00)
--- NOTE | 2020-05-18 08:45 | CDI ---
Documentation Clarification Form 2nd Request Date: 05/10/2020 11:18:00 AM From: Che Jackson RN, CCDS Admit Date: 05/05/2020 07:12:00 PM Patient Name: Sonal Ulloa Visit Number: [id number] Discharge Date: 05/10/2020 03:46:00 PM ATTENTION: The Clinical Documentation Specialists (CDI) and [facility] Coding Staff appreciate your assistance in clarifying documentation. Please respond to the clarification below the line at the bottom and electronically sign. The CDI & [facility] Coding staff will review the response and follow-up if needed. Please note: Queries are made part of the Legal Health Record. If you have any questions, please contact the author of this message via ITS. Dr. Dai Bacon Atrial Fibrillation is documented in the PMH and requires further specificity. History/Risk Factors: Atrial Fib, CAD, Chest pain, Anemia, CHF, COPD, CVA, DM, [place], ILIANA Clinical Indicators: 05/05/2020 EKG: NSR with PAC & PVC's Treatment: Norvasc 5 mg PO BID Lasix 40 mg QD Imdur 30 mg PO QD Lopressor 50 mg PO BID In your professional opinion, can you please clarify the type of Atrial Fibrillation, if known? Chronic/Permanent Paroxysmal Persistent Other, please specify Unable to determine (Last Revision: December 2017) Paroxysmal MTDD
== END 2020-05-10 15:46 | DRG 392 ==
LOC: EC 16:12 → 4SSUR 19:12
PROVIDERS: ADMIT Surgery; ATTEND Surgery
DX: K52.9 Noninfective gastroenteritis and colitis, unspecified (principal); N39.0 Urinary tract infection, site not specified; J44.9 Chronic obstructive pulmonary disease, unspecified; I25.10 Atherosclerotic heart disease of native coronary artery without angina pectoris; I11.0 Hypertensive heart disease with heart failure; H91.90 Unspecified hearing loss, unspecified ear; E11.9 Type 2 diabetes mellitus without complications; E78.5 Hyperlipidemia, unspecified; F32.9 Major depressive disorder, single episode, unspecified; I48.0 Paroxysmal atrial fibrillation; Z96.1 Presence of intraocular lens; M13.0 Polyarthritis, unspecified; D50.0 Iron deficiency anemia secondary to blood loss (chronic); K21.9 Gastro-esophageal reflux disease without esophagitis; I50.9 Heart failure, unspecified; Z87.440 Personal history of urinary (tract) infections; Z90.49 Acquired absence of other specified parts of digestive tract; Z95.5 Presence of coronary angioplasty implant and graft; Z98.49 Cataract extraction status, unspecified eye; Z98.890 Other specified postprocedural states; Z86.73 Personal history of transient ischemic attack (TIA), and cerebral infarction without residual deficits; Z87.891 Personal history of nicotine dependence; Z85.038 Personal history of other malignant neoplasm of large intestine; Z79.899 Other long term (current) drug therapy; Z79.4 Long term (current) use of insulin; Z88.1 Allergy status to other antibiotic agents; Z88.5 Allergy status to narcotic agent; Z88.0 Allergy status to penicillin; Z88.2 Allergy status to sulfonamides; Z88.8 Allergy status to other drugs, medicaments and biological substances; Z91.09 Other allergy status, other than to drugs and biological substances; Z82.49 Family history of ischemic heart disease and other diseases of the circulatory system; I25.2 Old myocardial infarction
CPT/HCPCS: 36415; 51702; 74176; 80053; 81001; 82150; 83690; 84484; 85025; 85610; 85730; 87086; 87324; 93005; 94640; 96361; 96365; 96374; 99285

== ENCOUNTER 2020-05-21 03:51 | Inpatient (IN) | payer MEDICARE, OTHER ==
[2020-05-21] MEDS ORDERED: IPRATROPIUM-ALBUTEROL 3 ML NEB INHALATION STA (03:53)
[2020-05-21] MEDS ORDERED: MORPHINE SULFATE 2 MG/ML SYRINGE IVP STA (03:56)
[2020-05-21] MEDS ORDERED: LORazepam 2 MG/ML INJ IV STA (03:56)
--- NOTE | 2020-05-21 03:56 | ED ---
SOB HPI - General Stated Complaint: JANES Time Seen by Provider: 05/21/20 03:53 Source: RN notes reviewed, old records reviewed Mode of arrival: EMS Limitations: altered mental status, physical limitation - History of Present Illness Initial Comments: This is a 82-year-old female in severe respiratory distress significant shortness of breath, history of heart failure heart disease. Patient is on BiPAP unable to give accurate history currently. Patient placed on BiPAP secondary significant work of breathing and shortness of breath hypoxia history obtained from EMS MD Complaint: shortness of breath, anxiety -: hour(s) Severity: severe Severity scale (1-10): 10 Consistency: constant Improves With: nothing Worsens With: exertion Known History Of: congestive heart failure Context: recent URI Associated Symptoms: chest pain, cough Treatments Prior to Arrival: none - Related Data Home Medications Medication Instructions Recorded Confirmed Montelukast [Singulair] 10 mg PO HS@209905/17/17 05/05/20 Fluticasone/Salmeterol [Advair 1 puff INHALATION RT-BID@899,209905/18/17 05/05/20 250-50 Diskus] Sennosides [Senna] 8.6 mg PO DAILY@89907/18/17 05/05/20 Acetaminophen [Tylenol] 1,000 mg PO Q4H PRN 05/14/18 05/05/20 Ferrous Sulfate [Feosol] 325 mg PO BID@0900,169911/27/19 05/05/20 Furosemide [Lasix] 40 mg PO DAILY@89903/27/20 05/05/20 Isosorbide Mononitrate ER [Imdur] 30 mg PO DAILY@89903/27/20 05/05/20 Pantoprazole [Protonix] 40 mg PO BID@899,209903/27/20 05/05/20 Tiotropium [place] [Spiriva] 1 cap INHALATION RT-DAILY@169903/27/20 05/05/20 bisacodyL [Dulcolax] 10 mg RECTAL Q72H PRN 03/27/20 05/05/20 Darbepoetin [place] [Aranesp] 40 mcg SQ TH 05/05/20 05/05/20 Glucerna Shake 1 can PO DAILY@89905/05/20 05/05/20 Metoprolol Tartrate [Lopressor] 50 mg PO BID@0900,209905/05/20 05/05/20 amLODIPine [Norvasc] 5 mg PO BID@0900,209905/05/20 05/05/20 Previous Rx's Medication Instructions Recorded Nitroglycerin Sl Tabs [Nitrostat] 0.4 mg SUBLINGUAL Q5M PRN #25 tab 07/23/17 Cefuroxime Axetil [Ceftin] 500 mg PO BID 10 Days #20 tab 05/10/20 HYDROcodone/APAP 5-325MG [[place] 1 tab PO Q6H PRN #12 tab 05/10/20 5-325] Oxazepam 15 mg PO HS PRN 3 Days #3 cap 05/10/20 metroNIDAZOLE [Flagyl] 500 mg PO Q8HR #30 tab 05/10/20 Allergies Allergy/AdvReac Type Severity Reaction Status Date / Time adhesive tape Allergy Rash/Hives Verified 05/05/20 20:35 amoxicillin trihydrate Allergy Unknown Verified 05/05/20 20:35 [From Augmentin] clindamycin HCl Allergy Unknown Verified 05/05/20 20:35 [From Cleocin] clindamycin palmitate HCl Allergy Unknown Verified 05/05/20 20:35 [From Cleocin] clindamycin phosphate Allergy Unknown Verified 05/05/20 20:35 [From Cleocin] codeine Allergy Unknown Verified 05/05/20 20:35 nitrofurantoin Allergy Unknown Verified 05/05/20 20:35 [From Macrobid] nitrofurantoin Allergy Unknown Verified 05/05/20 20:35 macrocrystalline [From Macrobid] Penicillins Allergy Unknown Verified 05/05/20 20:35 potassium clavulanate Allergy Unknown Verified 05/05/20 20:35 [From Augmentin] prednisone Allergy Unknown Verified 05/05/20 20:35 quinine Allergy Unknown Verified 05/05/20 20:35 Sulfa (Sulfonamide Allergy Unknown Verified 05/05/20 20:35 Antibiotics) sulfamethoxazole Allergy Unknown Verified 05/05/20 20:35 [From Bactrim] trimethoprim [From Bactrim] Allergy Unknown Verified 05/05/20 20:35 levofloxacin [From Levaquin] AdvReac Intermediate Itching Verified 05/08/20 01:12 lorazepam [From Ativan] AdvReac Confusion Verified 05/05/20 20:35 Review of Systems ROS Statement: Those systems with pertinent positive or pertinent negative responses have been documented in the HPI. ROS Other: All systems not noted in ROS Statement are negative. Past Medical History Past Medical History: Atrial Fibrillation, Coronary Artery Disease (CAD), Chest Pain / Angina, Heart Failure, COPD, CVA/TIA, Diabetes Mellitus, GERD/Reflux, Hearing Disorder / Deafness, Hyperlipidemia, Hypertension, Myocardial Infarction (AR), Osteoarthritis (OA), Pneumonia, Renal Disease, Skin Disorder Additional Past Medical History / Comment(s): IDDM type II, frequent pneumonia, aspiration pneumonia with sepsis, renal insufficiency, recurrent UTIs, TIA x 3, difficulty swallowing-crushes meds and puts them in yogurt-past EGD/dilations, anemia, eczema, "lazy bowel" but pt states anymore she goes from diarrhea to constipation easily, generalized arthritis, chronic back pain, hiatal hernia Last Myocardial Infarction Date:: 1998, 09/21/17 History of Any Multi-Drug Resistant Organisms: VRE Date of last positivie culture/infection: 10/07/17 MDRO Source:: VRE URINE Past Surgical History: Bowel Resection, Cholecystectomy, Heart Catheterization With Stent Additional Past Surgical History / Comment(s): cataracts w/lens implants, ectopic with one ovary/tube removed, heart caths :04/30/96 stent to rca, 03/18/2000 stent to mid rca, 07/22/17 stent to lad Past Anesthesia/Blood Transfusion Reactions: Previous Problems w/ Anesthesia Additional Past Anesthesia/Blood Transfusion Reaction / Comment(s): difficulty breathing after anesthesia Date of Last Stent Placement:: 06/2017 Past Psychological History: Depression Additional Psychological History / Comment(s): Pt resides in an apartment at [facility]. She ambulates with a walker. Her daughter is very helpful and is in an apt above her. Pt has chore person from [place] [facility]. She no longer drives, family takes her to [employer]. She goes up to her daughter's for supper and manages her own medication. Smoking Status: Never smoker Past Alcohol Use History: None Reported Additional Past Alcohol Use History / Comment(s): Patient has history of smoking 2 packs per day started smoking at age 16 Past Drug Use History: None Reported - Past Family History Father History Unknown: Yes Family Medical History: Myocardial Infarction (AR) Additional Family Medical History / Comment(s): Father had a AR at the age of 50 yrs. He lived to be 75yrs old. Mother History Unknown: Yes Family Medical History: Myocardial Infarction (AR) Additional Family Medical History / Comment(s): Mother of a AR at about age 80yrs. General Exam Limitations: physical limitation General appearance: alert, anxious, in distress Head exam: Present: atraumatic, normocephalic, normal inspection Eye exam: Present: normal appearance, PERRL, EOMI. Absent: scleral icterus, conjunctival injection, periorbital swelling ENT exam: Present: normal exam, mucous membranes moist Neck exam: Present: normal inspection. Absent: tenderness, meningismus, lymphadenopathy Respiratory exam: Present: respiratory distress, rales, rhonchi, accessory muscle use, decreased breath sounds, prolonged expiratory. Absent: wheezes, stridor Cardiovascular Exam: Present: regular rate, normal rhythm, normal heart sounds. Absent: systolic murmur, diastolic murmur, rubs, gallop, clicks GI/Abdominal exam: Present: soft, normal bowel sounds. Absent: distended, tenderness, guarding, rebound, rigid Extremities exam: Present: normal inspection, full ROM, normal capillary refill. Absent: tenderness, pedal edema, joint swelling, calf tenderness Back exam: Present: normal inspection Neurological exam: Present: alert, oriented X3, CN II-XII intact Psychiatric exam: Present: normal affect, normal mood Skin exam: Present: warm, dry, intact, normal color. Absent: rash Course Vital Signs 05/21/20 05/21/20 05/21/20 03:52 03:59 04:11 Temperature 97.3 F L Pulse Rate 103 H 93 Respiratory 32 H 32 H Rate Blood Pressure 112/76 O2 Sat by Pulse 97 Oximetry 05/21/20 05/21/20 04:22 04:30 Temperature Pulse Rate 89 149 H Respiratory 30 H Rate Blood Pressure 106/78 O2 Sat by Pulse 96 Oximetry - Reevaluation(s) Reevaluation #1: 05/21/20 04:52 Medical record is reviewed Reevaluation #2: 05/21/20 04:52 Recheck in patient's paperwork she is DO NOT RESUSCITATE Reevaluation #3: 05/21/20 04:52 Patient reevaluated has gone atrial fibrillation with RVR currently on BiPAP awake and alert - Consultations Consultation #1: Spoke with Dr. Bacon agrees to readmit this patient Medical Decision Making - Medical Decision Making 82 female DF for evaluation patient to the ER for evaluation patient presents today for evaluation regards to severe shortness of breath CHF COPD hypoxia patient is a DO NOT RESUSCITATE patient - Lab Data Result diagrams: 05/21/20 04:02 05/21/20 04:02 Lab Results 05/21/20 05/21/20 05/21/20 Range/Units 04:02 04:02 04:02 WBC 13.9 H (3.8-10.6) k/uL RBC 4.72 (3.80-5.40) m/uL Hgb 11.9 (11.4-16.0) gm/dL Hct 41.0 (34.0-46.0) % MCV 86.9 (80.0-100.0) fL MCH 25.2 (25.0-35.0) pg MCHC 29.0 L (31.0-37.0) g/dL RDW 22.1 H (11.5-15.5) % Plt Count 422 (150-450) k/uL Neutrophils % 85 % Lymphocytes % 7 % Monocytes % 5 % Eosinophils % 2 % Basophils % 1 % Neutrophils # 11.8 H (1.3-7.7) k/uL Lymphocytes # 1.0 (1.0-4.8) k/uL Monocytes # 0.6 (0-1.0) k/uL Eosinophils # 0.3 (0-0.7) k/uL Basophils # 0.1 (0-0.2) k/uL Hypochromasia Marked Anisocytosis Moderate Microcytosis Slight PT 10.5 (9.0-12.0) sec INR 1.0 (<1.2) APTT 23.8 (22.0-30.0) sec Sodium 140 (137-145) mmol/L Potassium 4.7 (3.5-5.1) mmol/L Chloride 104 (98-107) mmol/L Carbon Dioxide 26 (22-30) mmol/L Anion Gap 10 mmol/L BUN 34 H (7-17) mg/dL Creatinine 1.34 H (0.52-1.04) mg/dL Est GFR (CKD-EPI)AfAm 41 (>60 ml/min/1.73 sqM) Est GFR (CKD-EPI)NonAf 35 (>60 ml/min/1.73 sqM) Glucose 237 H (74-99) mg/dL Calcium 9.0 (8.4-10.2) mg/dL Magnesium 2.1 (1.6-2.3) mg/dL Total Bilirubin 0.4 (0.2-1.3) mg/dL AST 27 (14-36) U/L ALT 10 (4-34) U/L Alkaline Phosphatase 95 (38-126) U/L Lactate Dehydrogenase 721 H (313-618) U/L Creatine Kinase 56 (30-135) U/L C-Reactive Protein 48.1 H (<10.0) mg/L Total Protein 7.7 (6.3-8.2) g/dL Albumin 3.8 (3.5-5.0) g/dL - EKG Data -: EKG Interpreted by Me (EKG shows sinus rhythm of 98 ME 136 QRS 138 QTc 492) - Radiology Data Radiology results: report reviewed (Chest x-ray shows significant CHF), image reviewed Critical Care Time Critical Care Time: Yes Total Critical Care Time: 31 Disposition Clinical Impression: COPD bronchitis, Altered mental status, Acute respiratory failure, Acute respiratory distress syndrome in adult, Acute exacerbation of chronic obstructive pulmonary disease, Acute pulmonary edema, Weakness, Atrial fibrillation with RVR Disposition: ADMITTED IP TO THIS HOSP Condition: Critical Is patient prescribed a controlled substance at d/c from ED?: No
[2020-05-21] MEDS ORDERED: methylPREDNISolone SOD SUCCI 125 MG/2 ML VIAL IV STA (04:12)
[2020-05-21] MEDS ORDERED: FUROSEMIDE 10 MG/ML 4 ML VIAL IV SCH (04:15)
--- NOTE | 2020-05-21 04:16 | XR ---
EXAMINATION TYPE: XR chest 1V portable DATE OF EXAM: 05/21/2020 COMPARISON: 04/14/2020 HISTORY: Short of breath TECHNIQUE: FINDINGS: There is pulmonary edema. There is slight blunting of the costophrenic angles. Thoracic aor ta is atheromatous. There are chest leads. IMPRESSION: Congestive heart failure with pulmonary edema and pleural fluid. Pleural fluid improved c ompared to old exam. Pulmonary edema is slightly worse.
[2020-05-21 04:37] LABS: Anisocytosis Moderate; Basophils # (A) 0.1 k/uL (0-0.2); Basophils % (A) 1 %; Eosinophils # (A) 0.3 k/uL (0-0.7); Eosinophils % (A) 2 %; HGB 11.9 gm/dL (11.4-16.0); Hypochromasia Marked; Lymphocytes % (A) 7 %; MCH 25.2 pg (25.0-35.0); MCV 86.9 fL (80.0-100.0); Mean Platelet Volume 7.2; Microcytosis Slight; Monocytes # (A) 0.6 k/uL (0-1.0); Monocytes % (A) 5 %; Neutrophils # (A) 11.8 k/uL (1.3-7.7); Neutrophils % (A) 85 %; Platelet Count 422 k/uL (150-450); RBC 4.72 m/uL (3.80-5.40); RDW 22.1 % (11.5-15.5); WBC 13.9 k/uL (3.8-10.6)
[2020-05-21] MEDS ORDERED: DILTIAZEM DRIP BOLUS FROM BAG 1 MG SOLN IV ONE ×2 (04:45→15:34)
[2020-05-21] MEDS ORDERED: DILTIAZEM 125 MG in SODIUM CHLORIDE 0.9% 100 ML IV SCH (04:45)
[2020-05-21] MEDS: SODIUM CHLORIDE 0.9% 1,000 ML IV SCH (04:47)
[2020-05-21 04:51] LABS: Albumin 3.8 g/dL (3.5-5.0); C Reactive Protein 48.1 mg/L (<10.0); Magnesium 2.1 mg/dL (1.6-2.3); Partial Thromboplastin Time 23.8 sec (22.0-30.0); Potassium 4.7 mmol/L (3.5-5.1); Prothrombin Time 10.5 sec (9.0-12.0); Total Bilirubin 0.4 mg/dL (0.2-1.3); Total Protein 7.7 g/dL (6.3-8.2)
[2020-05-21] MEDS ORDERED: SODIUM CHLORIDE 0.9% 500 ML 500 ML IV ONE (05:01)
[2020-05-21] MEDS ORDERED: SODIUM CHLORIDE 0.9% 1,000 ML IV ONE (05:01)
[2020-05-21] MEDS ORDERED: methylPREDNISolone SOD SUCCI 125 MG/2 ML VIAL IV SCH (06:00)
[2020-05-21] MEDS ORDERED: fentaNYL (PF) 50 MCG/ML 2 ML AMP IVP PRN (06:19)
[2020-05-21] MEDS ORDERED: fentaNYL (PF) 50 MCG/ML 2 ML AMP IV STA (06:19)
[2020-05-21] MEDS ORDERED: ALBUTEROL NEBULIZED 2.5 MG/3 ML INHALATION SCH (08:00)
[2020-05-21] MEDS ORDERED: bisacodyL 10 MG SUPP RECTAL PRN (08:10)
[2020-05-21] MEDS ORDERED: NITROGLYCERIN SL TABS 0.4 MG TAB SUBLINGUAL PRN (08:10)
[2020-05-21] MEDS ORDERED: ACETAMINOPHEN TAB 500 MG TAB PO PRN (08:10)
[2020-05-21] MEDS ORDERED: SYMBICORT 80-4.5 MCG INHALER INHALATION SCH (09:00)
[2020-05-21] MEDS ORDERED: CEFDINIR 300 MG CAP PO SCH (09:00)
[2020-05-21] MEDS ORDERED: NON FORMULARY DRUG (Glucerna Shake 1 CAN) PO SCH (09:00)
[2020-05-21] MEDS ORDERED: CEFEPIME 1 GM in SODIUM CHLORIDE 0.9% 50 ML IVPB ONE (10:00)
[2020-05-21 10:44] LABS: Ferritin 477.4 ng/mL (10.0-291.0)
[2020-05-21] MEDS: amLODIPine 5 MG TAB PO SCH ×2 (10:44→19:45)
[2020-05-21] MEDS: FERROUS SULFATE 325 MG TAB PO SCH ×2 (10:44→14:55)
[2020-05-21] MEDS: SENNOSIDES 8.6 MG TAB PO SCH (10:44)
[2020-05-21] MEDS: ISOSORBIDE MONONITRATE ER 30 MG TAB.ER.24H PO SCH (10:46)
[2020-05-21] MEDS: PANTOPRAZOLE 40 MG TABLET PO SCH ×2 (10:46→19:44)
[2020-05-21] MEDS: METOPROLOL TARTRATE 50 MG TAB PO SCH ×2 (10:46→19:44)
[2020-05-21] MEDS: IPRATROPIUM-ALBUTEROL 3 ML NEB INHALATION SCH ×4 (11:22→19:53)
--- NOTE | 2020-05-21 11:45 | P.CNPUL ---
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 She has had multiple recent hospitalizations for her multiple comorbidities. She had been residing at [facility] on the [place] after her last discharge earlier this month. Proximally 3:00 this morning she was brought into the emergency room after developing severe respiratory distress. EMS did find dentures in the back of her throat. She was quite hypoxemic. Chest x-ray upon arrival revealed congestive heart failure with pulmonary edema pleural fluid. She has required BiPAP support currently 10/5 and 40% FiO2. She is seen today in consultation on the selective care unit. She is arousable. Good O2 saturations in the mid 90s. She's been afebrile. Hemodynamically stable. White count 13.9. Hemoglobin 11.9. Sodium 140. Potassium 4.7. Creatinine 1.34. Troponin 0.039, 0.048. ProBNP 18,100 she's been initiated on Lasix 40 mg IV every 12 hours. Recently on a Cardizem drip at 5 mg per hour. He been initiated on antibiotics in the form of Omnicef, DuoNeb inhalations, Symbicort. Her daughter is at the bedside providing most of the information. Review of Systems Unable to obtain patient is currently on BiPAP Past Medical History Past Medical History: Atrial Fibrillation, Coronary Artery Disease (CAD), Chest Pain / Angina, Heart Failure, COPD, CVA/TIA, Diabetes Mellitus, GERD/Reflux, Hearing Disorder / Deafness, Hyperlipidemia, Hypertension, Myocardial Infarction (AK), Osteoarthritis (OA), Pneumonia, Renal Disease, Skin Disorder Additional Past Medical History / Comment(s): IDDM type II, frequent pneumonia, aspiration pneumonia with sepsis, renal insufficiency, recurrent UTIs, TIA x 3, difficulty swallowing-crushes meds and puts them in yogurt-past EGD/dilations, anemia, eczema, "lazy bowel" but pt states anymore she goes from diarrhea to constipation easily, generalized arthritis, chronic back pain, hiatal hernia Last Myocardial Infarction Date:: 1998, 09/21/17 History of Any Multi-Drug Resistant Organisms: VRE Date of last positivie culture/infection: 10/07/17 MDRO Source:: VRE URINE Past Surgical History: Bowel Resection, Cholecystectomy, Heart Catheterization With Stent Additional Past Surgical History / Comment(s): cataracts w/lens implants, ectopic with one ovary/tube removed, heart caths :04/30/96 stent to rca, 03/18/2000 stent to mid rca, 07/22/17 stent to lad Past Anesthesia/Blood Transfusion Reactions: Previous Problems w/ Anesthesia Additional Past Anesthesia/Blood Transfusion Reaction / Comment(s): difficulty breathing after anesthesia Date of Last Stent Placement:: 06/2017 Past Psychological History: Depression Additional Psychological History / Comment(s): Pt resides in an apartment at [facility]. She ambulates with a walker. Her daughter is very helpful and is in an apt above her. Pt has chore person from [employer]. She no longer drives, family takes her to [employer]. She goes up to her daughter's for supper and manages her own medication. Smoking Status: Never smoker Past Alcohol Use History: None Reported Additional Past Alcohol Use History / Comment(s): Patient has history of smoking 2 packs per day started smoking at age 16 Past Drug Use History: None Reported - Past Family History Father History Unknown: Yes Family Medical History: Myocardial Infarction (AK) Additional Family Medical History / Comment(s): Father had a AK at the age of 50 yrs. He lived to be 75yrs old. Mother History Unknown: Yes Family Medical History: Myocardial Infarction (AK) Additional Family Medical History / Comment(s): Mother of a AK at about age 80yrs. Medications and Allergies Home Medications Medication Instructions Recorded Confirmed Type Montelukast [Singulair] 10 mg PO HS@209905/17/17 05/21/20 History Fluticasone/Salmeterol [Advair 1 puff INHALATION RT-BID@0900,209905/18/17 05/21/20 History 250-50 Diskus] Sennosides [Senna] 8.6 mg PO DAILY@0900 07/18/17 05/21/20 History Nitroglycerin Sl Tabs [Nitrostat] 0.4 mg SUBLINGUAL Q5M PRN #25 tab 07/23/17 05/21/20 Rx Acetaminophen [Tylenol] 1,000 mg PO Q4H PRN 05/14/18 05/21/20 History Ferrous Sulfate [Feosol] 325 mg PO BID@0900,1700 11/27/19 05/21/20 History Furosemide [Lasix] 40 mg PO DAILY@0903/27/20 05/21/20 History Isosorbide Mononitrate ER [Imdur] 30 mg PO DAILY@0903/27/20 05/21/20 History Pantoprazole [Protonix] 40 mg PO BID@0900,209903/27/20 05/21/20 History Tiotropium [place] [Spiriva] 1 cap INHALATION RT-DAILY@169903/27/20 05/21/20 History bisacodyL [Dulcolax] 10 mg RECTAL Q72H PRN 03/27/20 05/21/20 History Darbepoetin Adrian [Aranesp] 40 mcg SQ TH 05/05/20 05/21/20 History Glucerna Shake 1 can PO DAILY@0905/05/20 05/21/20 History Metoprolol Tartrate [Lopressor] 50 mg PO BID@0900,209905/05/20 05/21/20 History amLODIPine [Norvasc] 5 mg PO BID@0900,2100 05/05/20 05/21/20 History Cefuroxime Axetil [Ceftin] 500 mg PO BID 10 Days #20 tab 05/10/20 05/21/20 Rx HYDROcodone/APAP 5-325MG [[place] 1 tab PO Q6H PRN #12 tab 05/10/20 05/21/20 Rx 5-325] Oxazepam 15 mg PO HS PRN 3 Days #3 cap 05/10/20 05/21/20 Rx metroNIDAZOLE [Flagyl] 500 mg PO Q8HR #30 tab 05/10/20 05/21/20 Rx Allergies Allergy/AdvReac Type Severity Reaction Status Date / Time adhesive tape Allergy Rash/Hives Verified 05/05/20 20:35 amoxicillin trihydrate Allergy Unknown Verified 05/05/20 20:35 [From Augmentin] clindamycin HCl Allergy Unknown Verified 05/05/20 20:35 [From Cleocin] clindamycin palmitate HCl Allergy Unknown Verified 05/05/20 20:35 [From Cleocin] clindamycin phosphate Allergy Unknown Verified 05/05/20 20:35 [From Cleocin] codeine Allergy Unknown Verified 05/05/20 20:35 nitrofurantoin Allergy Unknown Verified 05/05/20 20:35 [From Macrobid] nitrofurantoin Allergy Unknown Verified 05/05/20 20:35 macrocrystalline [From Macrobid] Penicillins Allergy Unknown Verified 05/05/20 20:35 potassium clavulanate Allergy Unknown Verified 05/05/20 20:35 [From Augmentin] prednisone Allergy Unknown Verified 05/05/20 20:35 quinine Allergy Unknown Verified 05/05/20 20:35 Sulfa (Sulfonamide Allergy Unknown Verified 05/05/20 20:35 Antibiotics) sulfamethoxazole Allergy Unknown Verified 05/05/20 20:35 [From Bactrim] trimethoprim [From Bactrim] Allergy Unknown Verified 05/05/20 20:35 levofloxacin [From Levaquin] AdvReac Intermediate Itching Verified 05/08/20 01:12 lorazepam [From Ativan] AdvReac Confusion Verified 05/05/20 20:35 Physical Exam Vitals: Vital Signs Temp Pulse Pulse Resp BP BP Pulse Ox 05/21/20 10:32 98.6 F 90 26 H 118/56 95 05/21/20 07:19 84 22 134/71 96 05/21/20 06:47 73 29 H 113/56 96 05/21/20 06:15 158 H 32 H 96/66 94 L 05/21/20 05:45 137 H 30 H 89/75 98 05/21/20 05:30 158 H 32 H 80/61 97 05/21/20 05:15 152 H 30 H 72/58 96 05/21/20 04:58 168 H 32 H 67/50 96 05/21/20 04:30 149 H 30 H 106/78 96 05/21/20 04:22 89 05/21/20 04:11 93 05/21/20 03:59 32 H 05/21/20 03:52 97.3 F L 103 H 32 H 112/76 97 Intake and Output 05/20/20 05/21/20 05/21/20 22:59 06:59 14:59 Other: Voiding Method Indwelling Catheter Weight 61.235 kg GENERAL EXAM: Frail, cachectic 89-year-old female patient, arousable, on BiPAP 10/5 and 40% FiO2 comfortable in mild respiratory distress. HEAD: Normocephalic. EYES: Normal reaction of pupils, equal size. NOSE: Clear with pink turbinates. THROAT: No erythema or exudates. NECK: No masses, no JVD. CHEST: No chest wall deformity. LUNGS: Equal air entry with crackles in the bilateral posterior bases. CVS: S1 and S2 normal with an audible murmur, regular rhythm. ABDOMEN: No hepatosplenomegaly, normal bowel sounds, no guarding or rigidity. SPINE: No scoliosis or deformity SKIN: No rashes CENTRAL NERVOUS SYSTEM: No focal deficits, tone is normal in all 4 extremities. EXTREMITIES: There is no peripheral edema. No clubbing, no cyanosis. Peripheral pulses are intact. Results - Laboratory Findings CBC and BMP: 05/21/20 04:02 05/21/20 04:02 PT/INR, D-dimer PT 10.5 sec (9.0-12.0) 05/21/20 04:02 INR 1.0 (<1.2) 05/21/20 04:02 Abnormal lab findings: Abnormal Labs 05/21/20 05/21/20 05/21/20 04:02 04:02 04:02 WBC 13.9 H MCHC 29.0 L RDW 22.1 H Neutrophils # 11.8 H BUN 34 H Creatinine 1.34 H Glucose 237 H Ferritin 477.4 H Lactate Dehydrogenase 721 H Troponin I 0.039 H* C-Reactive Protein 48.1 H 05/21/20 09:57 WBC MCHC RDW Neutrophils # BUN Creatinine Glucose Ferritin Lactate Dehydrogenase Troponin I 0.048 H* C-Reactive Protein - Diagnostic Findings Chest x-ray: image reviewed Assessment and Plan Assessment: Acute hypoxemic respiratory failure secondary to an acute exacerbation of diastolic congestive heart failure, flash pulmonary edema, requiring BiPAP support, possible aspiration, dentures found in throat Anemia secondary to microcytic chronic anemia with iron efficiency Recent diagnosis of primary adenocarcinoma of the colon, status post right colectomy History of atrial fibrillation History of esophageal stricture with previous dilatation Acute on chronic hypoxic respiratory failure secondary to extensive pulmonary fibrosis and COPD Nonspecific pulmonary nodularity noted on the CT of the abdomen and pelvis, with 8 mm nodular density in the lingula and 1.5 cm nodular density in the region of the right middle lobe Coronary artery disease with previous stent placement Diabetes mellitus Hypertension Hyperlipidemia Hearing disorder Osteoarthritis Renal insufficiency History of TIA History of esophageal stricture with previous dilatation Chronic back pain Plan: The patient was seen and evaluated by Dr. Deion TRAN Omnicef. Start cefepime Increase IV diuretics 40 mg of Lasix every 8 hours Continue BiPAP support as needed Discontinue Symbicort and add Pulmicort and Perforomist Continue DuoNeb inhalations Overall prognosis remains quite poor and guarded She is a DO NOT RESUSCITATE/DO NOT INTUBATE CODE STATUS I, the cosigning physician, performed a history & physical examination of the patient. Lungs sounds with bilateral crackles in the posterior bases, diminished. Maintaining good O2 saturations in the 90s on BiPAP 10/5 and 40% FiO2. I discussed the assessment and plan of care with my nurse practitioner, Nargis Leon. I attest to the above consultation as dictated by her. Time with Patient: Greater than 30
[2020-05-21 11:51] LABS: Glucose,Whole Blood 270 mg/dL (75-99)
[2020-05-21] MEDS: INSULIN ASPART (NovoLOG) 100 UNIT/ML VIAL SQ SCH ×3 (12:28→20:41)
--- NOTE | 2020-05-21 12:28 | P.HPIM ---
History of Present Illness H&P Date: 05/21/20 Sonal Ulloa, is an 89-year-old female had been residing at [facility] on the [place] her last discharge earlier this month. Patient developed severe respiratory distress around 2:58 in the morning EMS did find dentures in the back of her throat, She was hypoxic. She was brought in to [facility] emergency room. Chest x-ray on arrival revealed congestive heart failure with pulmonary edema and pleural effusion. She has required BiPAP support she was admitted to telemetry floor pulmonary and cardiology consultation were requested. Patient was seen and examined on telemetry floor she is alert and responsive in no apparent distress she is still on BiPAP her vital exam reveals a temperature of 98.6 pulse 90 respiration 26 blood pressure 118/56 pulse ox is 95% on BiPAP with FiO2 of 40% Her white blood count on presentation was 13.9 hemoglobin 11.9 and platelet count 422, sodium 140 potassium 4.7 BUN was slightly elevated at 34 with creatinine of 1.34 glucose was 237 troponin was slightly elevated at 0.039 and albumin is normal at 3.8 BNP was elevated at 18,100 Her past medical history is significant for history of anemia, recent diagnosis adenocarcinoma with right-sided colectomy, severe valvular heart disease with severe aortic stenosis and moderate to severe mitral regurgitation, severe pulmonary hypertension, history of pulmonary fibrosis , underlying history of diabetes mellitus , underlying history of hypertension and hyperlipidemia , underlying history of congestive heart failure mostly diastolic in nature , coronary artery disease with previous stent placement, esophageal stricture, hypertension, TIA, underlying interstitial lung disease, atrial fibrillation. Past Medical History Past Medical History: Atrial Fibrillation, Coronary Artery Disease (CAD), Chest Pain / Angina, Heart Failure, COPD, CVA/TIA, Diabetes Mellitus, GERD/Reflux, Hearing Disorder / Deafness, Hyperlipidemia, Hypertension, Myocardial Infarction (OR), Osteoarthritis (OA), Pneumonia, Renal Disease, Skin Disorder Additional Past Medical History / Comment(s): IDDM type II, frequent pneumonia, aspiration pneumonia with sepsis, renal insufficiency, recurrent UTIs, TIA x 3, difficulty swallowing-crushes meds and puts them in yogurt-past EGD/dilations, anemia, eczema, "lazy bowel" but pt states anymore she goes from diarrhea to constipation easily, generalized arthritis, chronic back pain, hiatal hernia Last Myocardial Infarction Date:: 1998, 09/21/17 History of Any Multi-Drug Resistant Organisms: VRE Date of last positivie culture/infection: 10/07/17 MDRO Source:: VRE URINE Past Surgical History: Bowel Resection, Cholecystectomy, Heart Catheterization With Stent Additional Past Surgical History / Comment(s): cataracts w/lens implants, ectopic with one ovary/tube removed, heart caths :04/30/96 stent to rca, 03/18/2000 stent to mid rca, 07/22/17 stent to lad Past Anesthesia/Blood Transfusion Reactions: Previous Problems w/ Anesthesia Additional Past Anesthesia/Blood Transfusion Reaction / Comment(s): difficulty breathing after anesthesia Date of Last Stent Placement:: 06/2017 Past Psychological History: Depression Additional Psychological History / Comment(s): Pt resides in an apartment at [facility]. She ambulates with a walker. Her daughter is very helpful and is in an apt above her. Pt has chore person from [email or web address] on aging. She no longer drives, family takes her to [employer]. She goes up to her daughter's for supper and manages her own medication. Smoking Status: Never smoker Past Alcohol Use History: None Reported Additional Past Alcohol Use History / Comment(s): Patient has history of smoking 2 packs per day started smoking at age 16 Past Drug Use History: None Reported - Past Family History Father History Unknown: Yes Family Medical History: Myocardial Infarction (OR) Additional Family Medical History / Comment(s): Father had a OR at the age of 50 yrs. He lived to be 75yrs old. Mother History Unknown: Yes Family Medical History: Myocardial Infarction (OR) Additional Family Medical History / Comment(s): Mother of a OR at about age 80yrs. Medications and Allergies Home Medications Medication Instructions Recorded Confirmed Type Montelukast [Singulair] 10 mg PO HS@209905/17/17 05/21/20 History Fluticasone/Salmeterol [Advair 1 puff INHALATION RT-BID@0900,209905/18/17 05/21/20 History 250-50 Diskus] Sennosides [Senna] 8.6 mg PO DAILY@0900 07/18/17 05/21/20 History Nitroglycerin Sl Tabs [Nitrostat] 0.4 mg SUBLINGUAL Q5M PRN #25 tab 07/23/17 05/21/20 Rx Acetaminophen [Tylenol] 1,000 mg PO Q4H PRN 05/14/18 05/21/20 History Ferrous Sulfate [Feosol] 325 mg PO BID@0900,1700 11/27/19 05/21/20 History Furosemide [Lasix] 40 mg PO DAILY@89903/27/20 05/21/20 History Isosorbide Mononitrate ER [Imdur] 30 mg PO DAILY@89903/27/20 05/21/20 History Pantoprazole [Protonix] 40 mg PO BID@09,209903/27/20 05/21/20 History Tiotropium [place] [Spiriva] 1 cap INHALATION RT-DAILY@169903/27/20 05/21/20 History bisacodyL [Dulcolax] 10 mg RECTAL Q72H PRN 03/27/20 05/21/20 History Darbepoetin Adrian [Aranesp] 40 mcg SQ TH 05/05/20 05/21/20 History Glucerna Shake 1 can PO DAILY@89905/05/20 05/21/20 History Metoprolol Tartrate [Lopressor] 50 mg PO BID@0900,209905/05/20 05/21/20 History amLODIPine [Norvasc] 5 mg PO BID@0900,209905/05/20 05/21/20 History Cefuroxime Axetil [Ceftin] 500 mg PO BID 10 Days #20 tab 05/10/20 05/21/20 Rx HYDROcodone/APAP 5-325MG [[place] 1 tab PO Q6H PRN #12 tab 05/10/20 05/21/20 Rx 5-325] Oxazepam 15 mg PO HS PRN 3 Days #3 cap 05/10/20 05/21/20 Rx metroNIDAZOLE [Flagyl] 500 mg PO Q8HR #30 tab 05/10/20 05/21/20 Rx Allergies Allergy/AdvReac Type Severity Reaction Status Date / Time adhesive tape Allergy Rash/Hives Verified 05/05/20 20:35 amoxicillin trihydrate Allergy Unknown Verified 05/05/20 20:35 [From Augmentin] clindamycin HCl Allergy Unknown Verified 05/05/20 20:35 [From Cleocin] clindamycin palmitate HCl Allergy Unknown Verified 05/05/20 20:35 [From Cleocin] clindamycin phosphate Allergy Unknown Verified 05/05/20 20:35 [From Cleocin] codeine Allergy Unknown Verified 05/05/20 20:35 nitrofurantoin Allergy Unknown Verified 05/05/20 20:35 [From Macrobid] nitrofurantoin Allergy Unknown Verified 05/05/20 20:35 macrocrystalline [From Macrobid] Penicillins Allergy Unknown Verified 05/05/20 20:35 potassium clavulanate Allergy Unknown Verified 05/05/20 20:35 [From Augmentin] prednisone Allergy Unknown Verified 05/05/20 20:35 quinine Allergy Unknown Verified 05/05/20 20:35 Sulfa (Sulfonamide Allergy Unknown Verified 05/05/20 20:35 Antibiotics) sulfamethoxazole Allergy Unknown Verified 05/05/20 20:35 [From Bactrim] trimethoprim [From Bactrim] Allergy Unknown Verified 05/05/20 20:35 levofloxacin [From Levaquin] AdvReac Intermediate Itching Verified 05/08/20 01:12 lorazepam [From Ativan] AdvReac Confusion Verified 05/05/20 20:35 Physical Exam Vitals: Vital Signs Temp Pulse Pulse Resp BP BP Pulse Ox 05/21/20 11:35 87 05/21/20 11:23 86 99 05/21/20 10:32 98.6 F 90 26 H 118/56 95 05/21/20 07:19 84 22 134/71 96 05/21/20 06:47 73 29 H 113/56 96 05/21/20 06:15 158 H 32 H 96/66 94 L 05/21/20 05:45 137 H 30 H 89/75 98 05/21/20 05:30 158 H 32 H 80/61 97 05/21/20 05:15 152 H 30 H 72/58 96 05/21/20 04:58 168 H 32 H 67/50 96 05/21/20 04:30 149 H 30 H 106/78 96 05/21/20 04:22 89 05/21/20 04:11 93 05/21/20 03:59 32 H 05/21/20 03:52 97.3 F L 103 H 32 H 112/76 97 Intake and Output 05/20/20 05/21/20 05/21/20 22:59 06:59 14:59 Other: Voiding Method Indwelling Catheter Weight 61.235 kg In general patient is alert and oriented 3 in mild respiratory distress requiring BiPAP use HEENT head normocephalic and atraumatic Neck is supple no JVD no goiter no lymphadenopathy Chest exam reveals scattered crackles in both lung bases no wheezing Cardiac exam reveals irregular heart sounds S1 and S2 no gallops no murmurs Abdomen is soft nontender no organomegaly with normal bowel sounds Extremity exam reveals no edema no cyanosis or clubbing Neurological examination reveals no gross focal deficit Results CBC & Chem 7: 05/21/20 04:02 05/21/20 04:02 Labs: Abnormal Lab Results - Last 24 Hours (Table) 05/21/20 05/21/20 05/21/20 Range/Units 04:02 04:02 04:02 WBC 13.9 H (3.8-10.6) k/uL MCHC 29.0 L (31.0-37.0) g/dL RDW 22.1 H (11.5-15.5) % Neutrophils # 11.8 H (1.3-7.7) k/uL BUN 34 H (7-17) mg/dL Creatinine 1.34 H (0.52-1.04) mg/dL Glucose 237 H (74-99) mg/dL POC Glucose (mg/dL) (75-99) mg/dL Ferritin 477.4 H (10.0-291.0) ng/mL Lactate Dehydrogenase 721 H (313-618) U/L Troponin I 0.039 H* (0.000-0.034) ng/mL C-Reactive Protein 48.1 H (<10.0) mg/L 05/21/20 05/21/20 Range/Units 09:57 11:34 WBC (3.8-10.6) k/uL MCHC (31.0-37.0) g/dL RDW (11.5-15.5) % Neutrophils # (1.3-7.7) k/uL BUN (7-17) mg/dL Creatinine (0.52-1.04) mg/dL Glucose (74-99) mg/dL POC Glucose (mg/dL) 270 H (75-99) mg/dL Ferritin (10.0-291.0) ng/mL Lactate Dehydrogenase (313-618) U/L Troponin I 0.048 H* (0.000-0.034) ng/mL C-Reactive Protein (<10.0) mg/L Assessment and Plan Plan: 1. Acute hypoxic respiratory failure 2. Acute on chronic congestive heart failure exacerbation, diastolic in nature 3. Chronic atrial fibrillation 4. Underlying history of COPD and pulmonary fibrosis 5. Underlying history of coronary artery disease with history of angioplasty and stent placement in the past 6. Underlying history of diabetes mellitus 7. Underlying history of hypertension 8. Underlying history of hyperlipidemia 9. Recent diagnosis of colon mass, adenocarcinoma with partial colectomy. 10. Underlying history of sleep disturbance maintained on oxazepam for years. At this time patient is admitted to telemetry floor she was started on IV Lasix 40 mg every 8 hours she was also started on IV antibiotics cefepime [facility] medications reviewed and reordered Pulmonary and cardiology consultation was requested Will follow closely
--- NOTE | 2020-05-21 12:37 | P.CRDCN ---
History of Present Illness History of present illness: HISTORY OF PRESENTING ILLNESS This is a pleasant 89-year-old female past medical history significant for coronary artery disease status post multiple PCI's, paroxysmal atrial fibri llation on long-term anticoagulation secondary to bleeding, hypertension, diabetes mellitus, chronic diastolic heart failure with ejection fraction 50- 55%, dyslipidemia, moderate aortic stenosis, severe mitral regurgitation, moderate to severe tricuspid regurgitation and history of myocardial infarction. She follows in the office with Dr. Nunez. We have been asked to see in consultation for shortness of breath. She was sent from [facility] secondary to dyspnea. Apparently in the middle of the night she was noted to be dyspneic and hypoxic with a pulse oxygenation level in the 50s according to the patient's daughter. EMS was notified and on arrival she was noted to be very apneic and blue. Upon assessment of the airway they noted that her upper dentures were lodged in the back of her throat. The obstruction and her breathing, mentation and oxygenation level improved. She is seen and examined resting comfortably lying flat in bed with family at the bedside on BiPAP DIAGNOSTICS EKG reveals left bundle branch block pattern with underlying sinus mechanism. Chest xray congestive heart failure with pulmonary edema and pleural fluid, pleural fluid improved from previous exam with slightly worsening pulmonary edema. Laboratory reviewed, WBC 13.9, hemoglobin 11.9, platelets 422, sodium 140, potassium 4.7, creatinine 1.34, cardiac enzymes 0.039 0.048 and NT proBNP 18,100. Current cardiac medications include Lopressor 50 mg twice a day, amlodipine 5 mg twice a day, Lasix 40 mg daily and Imdur 30 mg daily. Most recent echocardiogram obtained March 2020 revealed preserved LV systolic function with ejection fraction 50-55%, moderate to severe aortic stenosis with a mean gradient of 39 mmHg, moderate to severe mitral regurgitation, mild to moderate tricuspid regurgitation and mild to moderate pulmonary hypertension with an RVSP of 39 mmHg. REVIEW OF SYSTEMS At the time of my exam: CONSTITUTIONAL: Denies fever or chills. CARDIOVASCULAR: Denies chest pain, shortness of breath, orthopnea, PND or palpitations. RESPIRATORY: Denies cough. GASTROINTESTINAL: Denies abdominal pain, diarrhea, constipation, nausea or vomiting. MUSCULOSKELETAL: Denies myalgias. NEUROLOGIC: Denies numbness, tingling or weakness. ENDOCRINE: Denies fatigue, weight change, polydipsia or polyurina. GENITOURINARY: Denies burning, hematuria or urgency with micturation. HEMATOLOGIC: Denies history of anemia or bleeding. PHYSICAL EXAMINATION Blood pressure 118/56 heart rate 87 afebrile and maintaining oxygen saturation on BiPAP. CONSTITUTIONAL: No apparent distress. HEENT: Head is normocephalic. Pupils are equal, round. Sclerae anicteric. Mucous membranes of the mouth are moist. No JVD. No carotid bruit. CHEST EXAMINATION: Bibasilar rales. No rhonchi or wheezes. No chest wall tenderness is noted on palpation or with deep breathing. HEART EXAMINATION: Regular rate and rhythm. S1, S2 heard. Systolic ejection murmur at all listening points, no gallops or rub. ABDOMEN: Soft, nontender. Positive bowel sounds. EXTREMITIES: 2+ peripheral pulses, no lower extremity edema and no calf tender ness. NEUROLOGIC EXAMINATION: Patient is awake, alert and oriented x3. ASSESSMENT Acute on chronic diastolic heart failure Hypoxia secondary to oral airway obstruction Troponin elevation secondary to oxygen supply and demand mismatch Coronary artery disease Paroxysmal atrial fibrillation on long-term anticoagulation Hypertension Dyslipidemia Diabetes mellitus Valvular heart disease PLAN Patient appears comfortable laying flat on BiPAP. Continue IV diuresis. Follow renal function and electrolytes in the morning. Document accurate intake and output along with daily weights. Guarded prognosis. Thank you kindly for this consultation. Nurse Practitioner note has been reviewed, I agree with a documented findings and plan of care. Patient was seen and examined. Past Medical History Past Medical History: Atrial Fibrillation, Coronary Artery Disease (CAD), Chest Pain / Angina, Heart Failure, COPD, CVA/TIA, Diabetes Mellitus, GERD/Reflux, Hearing Disorder / Deafness, Hyperlipidemia, Hypertension, Myocardial Infarction (RI), Osteoarthritis (OA), Pneumonia, Renal Disease, Skin Disorder Additional Past Medical History / Comment(s): IDDM type II, frequent pneumonia, aspiration pneumonia with sepsis, renal insufficiency, recurrent UTIs, TIA x 3, difficulty swallowing-crushes meds and puts them in yogurt-past EGD/dilations, anemia, eczema, "lazy bowel" but pt states anymore she goes from diarrhea to constipation easily, generalized arthritis, chronic back pain, hiatal hernia Last Myocardial Infarction Date:: 09/21/17 History of Any Multi-Drug Resistant Organisms: VRE Date of last positivie culture/infection: 10/07/17 MDRO Source:: VRE URINE Past Surgical History: Bowel Resection, Cholecystectomy, Heart Catheterization With Stent Additional Past Surgical History / Comment(s): cataracts w/lens implants, ectopic with one ovary/tube removed, heart caths :04/30/96 stent to rca, 03/18/2000 stent to mid rca, 07/22/17 stent to lad Past Anesthesia/Blood Transfusion Reactions: Previous Problems w/ Anesthesia Additional Past Anesthesia/Blood Transfusion Reaction / Comment(s): difficulty breathing after anesthesia Date of Last Stent Placement:: 06/2017 Past Psychological History: Depression Additional Psychological History / Comment(s): Pt resides in an apartment at [facility]. She ambulates with a walker. Her daughter is very helpful and is in an apt above her. Pt has chore person from [place] on aging. She no longer dr jones, family takes her to [facility]. She goes up to her daughter's for supper and manages her own medication. Smoking Status: Never smoker Past Alcohol Use History: None Reported Additional Past Alcohol Use History / Comment(s): Patient has history of smoking 2 packs per day started smoking at age 16 Past Drug Use History: None Reported - Past Family History Father History Unknown: Yes Family Medical History: Myocardial Infarction (RI) Additional Family Medical History / Comment(s): Father had a RI at the age of 50 yrs. He lived to be 75yrs old. Mother History Unknown: Yes Family Medical History: Myocardial Infarction (RI) Additional Family Medical History / Comment(s): Mother of a RI at about age 80yrs. Medications and Allergies Home Medications Medication Instructions Recorded Confirmed Type Montelukast [Singulair] 10 mg PO HS@209905/17/17 05/21/20 History Fluticasone/Salmeterol [Advair 1 puff INHALATION RT-BID@0900,209905/18/17 05/21/20 History 250-50 Diskus] Sennosides [Senna] 8.6 mg PO DAILY@0900 07/18/17 05/21/20 History Nitroglycerin Sl Tabs [Nitrostat] 0.4 mg SUBLINGUAL Q5M PRN #25 tab 07/23/17 05/21/20 Rx Acetaminophen [Tylenol] 1,000 mg PO Q4H PRN 05/14/18 05/21/20 History Ferrous Sulfate [Feosol] 325 mg PO BID@0900,1700 11/27/19 05/21/20 History Furosemide [Lasix] 40 mg PO DAILY@0903/27/20 05/21/20 History Isosorbide Mononitrate ER [Imdur] 30 mg PO DAILY@0900 03/27/20 05/21/20 History Pantoprazole [Protonix] 40 mg PO BID@0900,209903/27/20 05/21/20 History Tiotropium Gattman [Spiriva] 1 cap INHALATION RT-DAILY@169903/27/20 05/21/20 History bisacodyL [Dulcolax] 10 mg RECTAL Q72H PRN 03/27/20 05/21/20 History Darbepoetin Adrian [Aranesp] 40 mcg SQ TH 05/05/20 05/21/20 History Glucerna Shake 1 can PO DAILY@0905/05/20 05/21/20 History Metoprolol Tartrate [Lopressor] 50 mg PO BID@0900,209905/05/20 05/21/20 History amLODIPine [Norvasc] 5 mg PO BID@0900,209905/05/20 05/21/20 History Cefuroxime Axetil [Ceftin] 500 mg PO BID 10 Days #20 tab 05/10/20 05/21/20 Rx HYDROcodone/APAP 5-325MG [[place] 1 tab PO Q6H PRN #12 tab 05/10/20 05/21/20 Rx 5-325] Oxazepam 15 mg PO HS PRN 3 Days #3 cap 05/10/20 05/21/20 Rx metroNIDAZOLE [Flagyl] 500 mg PO Q8HR #30 tab 05/10/20 05/21/20 Rx Allergies Allergy/AdvReac Type Severity Reaction Status Date / Time adhesive tape Allergy Rash/Hives Verified 05/21/20 12:20 amoxicillin trihydrate Allergy Unknown Verified 05/21/20 12:20 [From Augmentin] clindamycin HCl Allergy Unknown Verified 05/21/20 12:20 [From Cleocin] clindamycin palmitate HCl Allergy Unknown Verified 05/21/20 12:20 [From Cleocin] clindamycin phosphate Allergy Unknown Verified 08/30/20 12:20 [From Cleocin] codeine Allergy Unknown Verified 05/21/20 12:20 nitrofurantoin Allergy Unknown Verified 05/21/20 12:20 [From Macrobid] nitrofurantoin Allergy Unknown Verified 05/21/20 12:20 macrocrystalline [From Macrobid] Penicillins Allergy Unknown Verified 05/21/20 12:20 potassium clavulanate Allergy Unknown Verified 05/21/20 12:20 [From Augmentin] prednisone Allergy Unknown Verified 05/21/20 12:20 quinine Allergy Unknown Verified 05/21/20 12:20 Sulfa (Sulfonamide Allergy Unknown Verified 05/21/20 12:20 Antibiotics) sulfamethoxazole Allergy Unknown Verified 05/21/20 12:20 [From Bactrim] trimethoprim [From Bactrim] Allergy Unknown Verified 05/21/20 12:20 levofloxacin [From Levaquin] AdvReac Intermediate Itching Verified 05/21/20 12:20 lorazepam [From Ativan] AdvReac Confusion Verified 05/21/20 12:20 Physical Exam Vitals: Vital Signs Temp Pulse Pulse Resp BP BP Pulse Ox 05/21/20 07:19 84 22 134/71 96 05/21/20 06:47 73 29 H 113/56 96 05/21/20 06:15 158 H 32 H 96/66 94 L 05/21/20 05:45 137 H 30 H 89/75 98 05/21/20 05:30 158 H 32 H 80/61 97 05/21/20 05:15 152 H 30 H 72/58 96 05/21/20 04:58 168 H 32 H 67/50 96 05/21/20 04:30 149 H 30 H 106/78 96 05/21/20 04:22 89 05/21/20 04:11 93 05/21/20 03:59 32 H 05/21/20 03:52 97.3 F L 103 H 32 H 112/76 97 Intake and Output 05/20/20 05/21/20 05/21/20 22:59 06:59 14:59 Other: Weight 61.235 kg Results 05/21/20 04:02 05/21/20 04:02 Cardiac Enzymes 05/21/20 05/21/20 Range/Units 04:02 04:02 AST 27 (14-36) U/L Lactate Dehydrogenase 721 H (313-618) U/L Troponin I 0.039 H* (0.000-0.034) ng/mL Coagulation 05/21/20 Range/Units 04:02 PT 10.5 (9.0-12.0) sec APTT 23.8 (22.0-30.0) sec CBC 05/21/20 Range/Units 04:02 WBC 13.9 H (3.8-10.6) k/uL RBC 4.72 (3.80-5.40) m/uL Hgb 11.9 (11.4-16.0) gm/dL Hct 41.0 (34.0-46.0) % Plt Count 422 (150-450) k/uL Comprehensive Metabolic Panel 05/21/20 Range/Units 04:02 Sodium 140 (137-145) mmol/L Potassium 4.7 (3.5-5.1) mmol/L Chloride 104 (98-107) mmol/L Carbon Dioxide 26 (22-30) mmol/L BUN 34 H (7-17) mg/dL Creatinine 1.34 H (0.52-1.04) mg/dL Glucose 237 H (74-99) mg/dL Calcium 9.0 (8.4-10.2) mg/dL AST 27 (14-36) U/L ALT 10 (4-34) U/L Alkaline Phosphatase 95 (38-126) U/L Total Protein 7.7 (6.3-8.2) g/dL Albumin 3.8 (3.5-5.0) g/dL Current Medications Generic Name Dose Route Start Last Admin Trade Name Freq PRN Reason Stop Dose Admin Acetaminophen 1,000 mg 05/21/20 08:10 Tylenol Tab PO Q4H PRN Pain Hydrocodone Bitart/Acetaminophen 1 each 05/21/20 08:10 [place] 5-325 PO Q6H PRN Pain Albuterol Sulfate 2.5 mg 05/21/20 08:00 Ventolin Nebulized INHALATION RT-QID [facility] Albuterol/Ipratropium 3 ml 05/21/20 04:12 Duoneb 0.5 Mg-3 Mg/3 Ml Soln INHALATION RT-Q4H PRN Shortness Of Breath Or Wheezing Amlodipine Besylate 5 mg 05/21/20 09:00 Norvasc PO BID@0900,2100 [facility] Bisacodyl 10 mg 05/21/20 08:10 Dulcolax RECTAL Q72H PRN Constipation Darbepoetin Adrian 40 mcg 05/25/20 08:10 Aranesp SQ TH [facility] Fentanyl Citrate 50 mcg 05/21/20 06:19 Sublimaze IVP Q4H PRN Severe Pain Ferrous Sulfate 325 mg 05/21/20 09:00 Feosol PO BID@0900,1700 [facility] Furosemide 40 mg 05/21/20 04:15 05/21/20 04:47 Lasix IV 40 mg Q12H [facility] Administration Sodium Chloride 1,000 mls @ 20 mls/hr 05/21/20 04:15 05/21/20 04:47 Saline 0.9% IV 20 mls/hr .Q24H [facility] Administration Diltiazem HCl 125 mg/ Sodium 125 mls @ 5 mls/hr 05/21/20 04:45 05/21/20 04:56 Chloride IV 5 mg/hr .Q24H [facility] 5 mls/hr Administration 5 MG/HR Isosorbide Mononitrate 30 mg 05/21/20 09:00 Imdur PO DAILY@0900 [facility] Methylprednisolone Sodium Succinate 60 mg 05/21/20 06:00 05/21/20 06:15 Solu-Medrol IV Not Given Q6HR [facility] Metoprolol Tartrate 50 mg 05/21/20 09:00 Lopressor PO BID@0900,2100 [facility] Metronidazole 500 mg 05/21/20 16:00 Flagyl PO Q8HR [facility] Montelukast Sodium 10 mg 05/21/20 21:00 Singulair PO HS@2100 [facility] Nitroglycerin 0.4 mg 05/21/20 08:10 Nitrostat SUBLINGUAL Q5M PRN Chest Pain Non-Formulary Medication 500 mg 05/21/20 09:00 Cefuroxime Axetil [Ceftin] PO BID [facility] Non-Formulary Medication 1 puff 05/21/20 09:00 Fluticasone/Salmeterol [Advair 250-50 Diskus] INHALATION RT-BID@0900,2100 [facility] Non-Formulary Medication 1 can 05/21/20 09:00 Glucerna Shake PO DAILY@0900 [facility] Non-Formulary Medication 15 mg 05/21/20 08:10 Oxazepam [Oxazepam] PO HS PRN Insomnia Non-Formulary Medication 1 cap 05/21/20 17:00 Tiotropium Gattman [Spiriva] INHALATION RT-DAILY@1700 [facility] Pantoprazole Sodium 40 mg 05/21/20 09:00 Protonix PO BID@0900,2100 [facility] Senna 8.6 mg 05/21/20 09:00 Senokot PO DAILY@0900 [facility] Intake and Output 05/20/20 05/21/20 05/21/20 22:59 06:59 14:59 Other: Weight 61.235 kg 05/21/20 04:02 05/21/20 04:02
[2020-05-21] MEDS: FUROSEMIDE 10 MG/ML 4 ML VIAL IV SCH ×2 (14:54→22:45)
[2020-05-21] MEDS: HYDROcodone/APAP 5-325MG 1 EACH TAB PO PRN ×2 (14:54→21:20)
[2020-05-21] MEDS ORDERED: metroNIDAZOLE 500 MG TAB PO SCH (16:00)
[2020-05-21] MEDS: DILTIAZEM 125 MG in SODIUM CHLORIDE 0.9% 100 ML IV SCH (16:02)
[2020-05-21 17:06] LABS: Glucose,Whole Blood 257 mg/dL (75-99)
[2020-05-21] MEDS: CEFEPIME 1 GM in SODIUM CHLORIDE 0.9% 50 ML IVPB SCH (19:44)
[2020-05-21] MEDS: MONTELUKAST 10 MG TAB PO SCH (19:45)
[2020-05-21] MEDS: FORMOTEROL FUMARATE 20 MCG/2 ML NEBU INHALATION SCH (19:51)
[2020-05-21] MEDS: BUDESONIDE 1 MG/2 ML NEBU INHALATION SCH (19:51)
[2020-05-21] MEDS: IPRATROPIUM-ALBUTEROL 3 ML NEB INHALATION PRN (19:52)
[2020-05-21 20:06] LABS: Glucose,Whole Blood 190 mg/dL (75-99)
[2020-05-22] MEDS: SODIUM CHLORIDE 0.9% 1,000 ML IV SCH (04:11)
[2020-05-22] MEDS: DILTIAZEM 125 MG in SODIUM CHLORIDE 0.9% 100 ML IV SCH (05:48)
[2020-05-22 06:22] LABS: Glucose,Whole Blood 143 mg/dL (75-99)
[2020-05-22] MEDS: INSULIN ASPART (NovoLOG) 100 UNIT/ML VIAL SQ SCH ×4 (06:23→21:53)
[2020-05-22] MEDS: BUDESONIDE 1 MG/2 ML NEBU INHALATION SCH ×2 (08:17→19:25)
[2020-05-22] MEDS: IPRATROPIUM-ALBUTEROL 3 ML NEB INHALATION PRN ×4 (08:18→19:26)
[2020-05-22] MEDS: FORMOTEROL FUMARATE 20 MCG/2 ML NEBU INHALATION SCH ×2 (08:18→19:25)
[2020-05-22] MEDS: IPRATROPIUM-ALBUTEROL 3 ML NEB INHALATION SCH ×4 (08:18→19:26)
[2020-05-22 08:58] LABS: Anisocytosis Moderate; Basophils % (A) 0 %; Eosinophils # (A) 0.1 k/uL (0-0.7); Eosinophils % (A) 1 %; HCT 34.6 % (34.0-46.0); HGB 10.2 gm/dL (11.4-16.0); Hypochromasia Marked; Lymphocytes # (A) 0.7 k/uL (1.0-4.8); Lymphocytes % (A) 6 %; MCH 25.9 pg (25.0-35.0); MCHC 29.6 g/dL (31.0-37.0); MCV 87.6 fL (80.0-100.0); Mean Platelet Volume 7.5; Microcytosis Slight; Monocytes # (A) 0.6 k/uL (0-1.0); Monocytes % (A) 5 %; Neutrophils # (A) 9.9 k/uL (1.3-7.7); Neutrophils % (A) 86 %; Platelet Count 348 k/uL (150-450); RBC 3.95 m/uL (3.80-5.40); RDW 22.2 % (11.5-15.5); WBC 11.6 k/uL (3.8-10.6)
[2020-05-22] MEDS ORDERED: FUROSEMIDE 40 MG TAB PO SCH (09:00)
[2020-05-22 09:09] LABS: Albumin 3.3 g/dL (3.5-5.0); Potassium 4.5 mmol/L (3.5-5.1); Total Bilirubin 0.4 mg/dL (0.2-1.3); Total Protein 6.9 g/dL (6.3-8.2)
[2020-05-22] MEDS: CEFEPIME 1 GM in SODIUM CHLORIDE 0.9% 50 ML IVPB SCH ×2 (09:35→21:53)
[2020-05-22] MEDS: DILTIAZEM ORAL 60 MG TAB PO SCH ×3 (09:38→21:53)
[2020-05-22] MEDS: amLODIPine 5 MG TAB PO SCH ×2 (09:38→21:53)
[2020-05-22] MEDS: PANTOPRAZOLE 40 MG TABLET PO SCH ×2 (09:38→21:52)
[2020-05-22] MEDS: SENNOSIDES 8.6 MG TAB PO SCH (09:38)
[2020-05-22] MEDS: FERROUS SULFATE 325 MG TAB PO SCH ×2 (09:38→17:47)
[2020-05-22] MEDS: METOPROLOL TARTRATE 50 MG TAB PO SCH ×2 (09:38→21:53)
[2020-05-22] MEDS: ISOSORBIDE MONONITRATE ER 30 MG TAB.ER.24H PO SCH (09:38)
[2020-05-22] MEDS: FUROSEMIDE 10 MG/ML 4 ML VIAL IV SCH (10:02)
--- NOTE | 2020-05-22 10:22 | P.PN ---
Subjective Progress Note Date: 05/22/20 CHIEF COMPLAINT: CHF HISTORY OF PRESENT ILLNESS: Patient examined this morning at the bedside. Patient denies chest pain. She denies shortness of breath. Patient remains on a Cardizem drip. She is currently maintaining sinus mechanism. Blood pressure this morning is stable. Heart rate in the 70-80s. PHYSICAL EXAM: VITAL SIGNS: Reviewed. GENERAL: Well-developed in no acute distress. NECK: Supple. No JVD or thyromegaly LUNGS: Respirations even and unlabored. Lungs essentially clear to auscultation bilaterally. HEART: Regular rate and rhythm. S1 and S2 heard. Systolic murmur. EXTREMITIES: Normal range of motion. No clubbing or cyanosis. Peripheral pulses intact. No lower extremity edema ASSESSMENT: Acute on chronic diastolic heart failure Hypoxia secondary to oral airway obstruction Troponin elevation secondary to oxygen supply and demand mismatch Coronary artery disease Paroxysmal atrial fibrillation, not on long-term anticoagulation due to history of falls Hypertension Dyslipidemia Diabetes mellitus Valvular heart disease PLAN: -Discontinue Cardizem drip -Begin Cardizem 60 mg by mouth 3 times a day -Continue metoprolol 50 mg twice a day -Continue additional cardiac medications including Norvasc 5 mg by mouth twice a day and Imdur 30 mg by mouth daily -Transition Lasix to oral: 40 mg twice a day -Monitor kidney function. Repeat BMP in a.m. Nurse practitioner note has been reviewed by physician. Signing provider agrees with the documented findings, assessment, and plan of care. Objective - Vital Signs Vital signs: Vital Signs Temp 97.9 F 05/21/20 14:52 Pulse 88 05/22/20 08:46 Resp 22 05/22/20 03:58 BP 112/67 05/22/20 03:58 Pulse Ox 100 05/22/20 03:58 Intake & Output 05/21/20 05/22/20 05/22/20 18:59 06:59 18:59 Intake Total 118.917 200 Output Total 530 500 Balance -411.083 -300 Intake: Intake, IV Titration 118.917 Amount Diltiazem 125 mg In 118.917 Sodium Chloride 0.9% 100 ml @ 10 MG/HR 10 mls/hr IV .[id number] [facility] Rx#: [id number] Oral 200 Output: Urine 530 500 Other: Voiding Method Indwelling Catheter Indwelling Catheter - Labs CBC & Chem 7: 05/22/20 08:36 05/22/20 08:35 Labs: Abnormal Lab Results - Last 24 Hours (Table) 05/21/20 05/21/20 05/21/20 Range/Units 04:02 09:57 09:57 WBC (3.8-10.6) k/uL Hgb (11.4-16.0) gm/dL MCHC (31.0-37.0) g/dL RDW (11.5-15.5) % Neutrophils # (1.3-7.7) k/uL Lymphocytes # (1.0-4.8) k/uL Carbon Dioxide (22-30) mmol/L BUN (7-17) mg/dL Creatinine (0.52-1.04) mg/dL Glucose (74-99) mg/dL POC Glucose (mg/dL) (75-99) mg/dL Ferritin 477.4 H (10.0-291.0) ng/mL Troponin I 0.048 H* (0.000-0.034) ng/mL Albumin (3.5-5.0) g/dL Procalcitonin 0.48 H (0.02-0.09) ng/mL 05/21/20 05/21/20 05/21/20 Range/Units 11:34 16:46 20:05 WBC (3.8-10.6) k/uL Hgb (11.4-16.0) gm/dL MCHC (31.0-37.0) g/dL RDW (11.5-15.5) % Neutrophils # (1.3-7.7) k/uL Lymphocytes # (1.0-4.8) k/uL Carbon Dioxide (22-30) mmol/L BUN (7-17) mg/dL Creatinine (0.52-1.04) mg/dL Glucose (74-99) mg/dL POC Glucose (mg/dL) 270 H 257 H 190 H (75-99) mg/dL Ferritin (10.0-291.0) ng/mL Troponin I (0.000-0.034) ng/mL Albumin (3.5-5.0) g/dL Procalcitonin (0.02-0.09) ng/mL 05/22/20 05/22/2020 Range/Units 06:20 08:35 08:36 WBC 11.6 H (3.8-10.6) k/uL Hgb 10.2 L (11.4-16.0) gm/dL MCHC 29.6 L (31.0-37.0) g/dL RDW 22.2 H (11.5-15.5) % Neutrophils # 9.9 H (1.3-7.7) k/uL Lymphocytes # 0.7 L (1.0-4.8) k/uL Carbon Dioxide 21 L (22-30) mmol/L BUN 41 H (7-17) mg/dL Creatinine 1.22 H (0.52-1.04) mg/dL Glucose 172 H (74-99) mg/dL POC Glucose (mg/dL) 143 H (75-99) mg/dL Ferritin (10.0-291.0) ng/mL Troponin I (0.000-0.034) ng/mL Albumin 3.3 L (3.5-5.0) g/dL Procalcitonin (0.02-0.09) ng/mL Microbiology - Last 24 Hours (Table) 05/21/20 04:02 Blood Culture - Preliminary Blood No Growth after 24 hours
[2020-05-22 11:35] LABS: Glucose,Whole Blood 168 mg/dL (75-99)
[2020-05-22 12:50] VITALS: BMI 25.4
--- NOTE | 2020-05-22 14:27 | P.PN ---
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 She has had multiple recent hospitalizations for her multiple comorbidities. She had been residing at [facility] after her last discharge earlier this month. Proximally 3:00 this morning she was brought into the emergency room after developing severe respiratory distress. EMS did find dentures in the back of her throat. She was quite hypoxemic. Chest x-ray upon arrival revealed congestive heart failure with pulmonary edema pleural fluid. She has required BiPAP support currently 10/5 and 40% FiO2. She is seen today in consultation on the selective care unit. She is arousable. Good O2 saturations in the mid 90s. She's been afebrile. Hemodynamically stable. White count 13.9. Hemoglobin 11.9. Sodium 140. Potassium 4.7. Creatinine 1.34. Troponin 0.039, 0.048. ProBNP 18,100 she's been initiated on Lasix 40 mg IV every 12 hours. Recently on a Cardizem drip at 5 mg per hour. He been initiated on antibiotics in the form of Omnicef, DuoNeb inhalations, Symbicort. Her daughter is at the bedside providing most of the information. On 05/22/2020 patient seen in follow-up on selective care unit, she is awake and alert, in no acute distress. She is resting comfortably in bed, currently on 8 L of oxygen, which was subsequently increased to 15 L, her pulse ox is 93%, did wear BiPAP last night, with pressures of 10/5, and FiO2 of 40% with saturation around 100%. Patient has been diuresed, and she is currently on oral diuretics at 40 mg twice daily, and she is only modestly in negative fluid balance, -411 mL over the last 24 hours. Her admission chest x-ray done yesterday showed congestive heart failure with pulmonary edema and pleural fluid. She appears to be in no acute distress, physical exam reveals crackles at bilateral bases, she is on 0.9 normal saline at a rate of 20 ML per hour, denies any chest pain, denies worsening shortness of breath. She is in sinus mechanism with a rate in the 70s and 80s. She have a history of paroxysmal atrial fibrillation, not on any long-term anticoagulation due to history of falls. Objective - Vital Signs Vital signs: Vital Signs Temp 97.9 F 05/21/20 14:52 Pulse 88 05/22/20 12:16 Resp 30 H 05/22/20 12:00 BP 142/88 05/22/20 12:00 Pulse Ox 93 L 05/22/20 12:00 Intake & Output 05/21/20 05/22/20 05/22/20 18:59 06:59 18:59 Intake Total 118.917 200 Output Total 530 500 Balance -411.083 -300 Weight 61.235 kg Intake: Intake, IV Titration 118.917 Amount Diltiazem 125 mg In 118.917 Sodium Chloride 0.9% 100 ml @ 10 MG/HR 10 mls/hr IV .[id number] [facility] Rx#: [id number] Oral 200 Output: Urine 530 500 Other: Voiding Method Indwelling Catheter Indwelling Catheter Indwelling Catheter - Exam GENERAL EXAM: Alert, very pleasant, 89-year-old frail looking white female, currently on 8 L of oxygen with a pulse of 92%, comfortable in no apparent distress. HEAD: Normocephalic/atraumatic. EYES: Normal reaction of pupils, equal size. Conjunctiva pink, sclera white. NOSE: Clear with pink turbinates. THROAT: No erythema or exudates. NECK: No masses, no JVD, no thyroid enlargement, no adenopathy. CHEST: No chest wall deformity. Symmetrical expansion. LUNGS: Equal air entry with basilar crackles CVS: Regular rate and rhythm, normal S1 and S2, no gallops, no murmurs, no rubs ABDOMEN: Soft, nontender. No hepatosplenomegaly, normal bowel sounds, no guarding or rigidity. EXTREMITIES: No clubbing, no edema, no cyanosis, 2+ pulses and upper and lower extremities. MUSCULOSKELETAL: Muscle strength and tone normal. SPINE: No scoliosis or deformity SKIN: No rashes CENTRAL NERVOUS SYSTEM: Alert and oriented -3. No focal deficits, tone is nor mal in all 4 extremities. PSYCHIATRIC: Alert and oriented -3. Appropriate affect. Intact judgment and insight. - Labs CBC & Chem 7: 05/22/20 08:36 05/22/20 08:35 Labs: Abnormal Lab Results - Last 24 Hours (Table) 05/21/20 05/21/20 05/21/20 Range/Units 09:57 16:46 20:05 WBC (3.8-10.6) k/uL Hgb (11.4-16.0) gm/dL MCHC (31.0-37.0) g/dL RDW (11.5-15.5) % Neutrophils # (1.3-7.7) k/uL Lymphocytes # (1.0-4.8) k/uL Carbon Dioxide (22-30) mmol/L BUN (7-17) mg/dL Creatinine (0.52-1.04) mg/dL Glucose (74-99) mg/dL POC Glucose (mg/dL) 257 H 190 H (75-99) mg/dL Albumin (3.5-5.0) g/dL Procalcitonin 0.48 H (0.02-0.09) ng/mL 05/22/20 05/22/20 05/22/20 Range/Units 06:20 08:35 08:36 WBC 11.6 H (3.8-10.6) k/uL Hgb 10.2 L (11.4-16.0) gm/dL MCHC 29.6 L (31.0-37.0) g/dL RDW 22.2 H (11.5-15.5) % Neutrophils # 9.9 H (1.3-7.7) k/uL Lymphocytes # 0.7 L (1.0-4.8) k/uL Carbon Dioxide 21 L (22-30) mmol/L BUN 41 H (7-17) mg/dL Creatinine 1.22 H (0.52-1.04) mg/dL Glucose 172 H (74-99) mg/dL POC Glucose (mg/dL) 143 H (75-99) mg/dL Albumin 3.3 L (3.5-5.0) g/dL Procalcitonin (0.02-0.09) ng/mL 05/22/20 Range/Units 11:26 WBC (3.8-10.6) k/uL Hgb (11.4-16.0) gm/dL MCHC (31.0-37.0) g/dL RDW (11.5-15.5) % Neutrophils # (1.3-7.7) k/uL Lymphocytes # (1.0-4.8) k/uL Carbon Dioxide (22-30) mmol/L BUN (7-17) mg/dL Creatinine (0.52-1.04) mg/dL Glucose (74-99) mg/dL POC Glucose (mg/dL) 168 H (75-99) mg/dL Albumin (3.5-5.0) g/dL Procalcitonin (0.02-0.09) ng/mL Microbiology - Last 24 Hours (Table) 05/21/20 04:02 Blood Culture - Preliminary Blood No Growth after 24 hours Assessment and Plan Plan: Assessment: Acute hypoxemic respiratory failure secondary to an acute exacerbation of diastolic congestive heart failure, flash pulmonary edema, requiring BiPAP support, possible aspiration, dentures found in throat Anemia secondary to microcytic chronic anemia with iron efficiency Recent diagnosis of primary adenocarcinoma of the colon, status post right colectomy History of atrial fibrillation History of esophageal stricture with previous dilatation Acute on chronic hypoxic respiratory failure secondary to extensive pulmonary fibrosis and COPD Nonspecific pulmonary nodularity noted on the CT of the abdomen and pelvis, with 8 mm nodular density in the lingula and 1.5 cm nodular density in the region of the right middle lobe Coronary artery disease with previous stent placement Diabetes mellitus Hypertension Hyperlipidemia Hearing disorder Osteoarthritis Renal insufficiency History of TIA History of esophageal stricture with previous dilatation Chronic back pain Plan: Increase the Lasix dose to 40 mg 3 times daily by mouth, continue with BiPAP support as needed, patient is still requiring high FiO2, but no worsening dyspnea, continue monitoring electrolytes and renal profile, patient remains in sinus mechanism, with a controlled rate. No fever or chills. Obtain follow-up chest x-ray in the morning, daily weights, accurate intake and output. We'll continue to follow I performed a history & physical examination of the patient and discussed their management with my nurse practitioner, Josephine Winkler. I reviewed the nurse practitioner's note and agree with the documented findings and plan of care. Lung sounds are positive for diminished breath sounds with basilar crackles. The findings and the impression was discussed with the patient. I attest to the documentation by the nurse practitioner. Time with Patient: Less than 30
[2020-05-22 16:44] LABS: Glucose,Whole Blood 165 mg/dL (75-99)
[2020-05-22] MEDS: FUROSEMIDE 40 MG TAB PO SCH ×2 (17:47→21:52)
--- NOTE | 2020-05-22 19:20 | P.PN ---
Subjective Progress Note Date: 05/22/20 Sonal Ulloa, is an 89-year-old female had been residing at [facility] [place] her last discharge earlier this month. Patient developed severe respiratory distress around 2:58 in the morning EMS did find dentures in the back of her throat, She was hypoxic. She was brought in to [facility] emergency room. Chest x-ray on arrival revealed congestive heart failure with pulmonary edema and pleural effusion. She has required BiPAP support she was admitted to telemetry floor pulmonary and cardiology consultation were requested. Patient was seen and examined on telemetry floor she is alert and responsive in no apparent distress she is still on BiPAP her vital exam reveals a temperature of 98.6 pulse 90 respiration 26 blood pressure 118/56 pulse ox is 95% on BiPAP with FiO2 of 40% Her white blood count on presentation was 13.9 hemoglobin 11.9 and platelet count 422, sodium 140 potassium 4.7 BUN was slightly elevated at 34 with creatinine of 1.34 glucose was 237 troponin was slightly elevated at 0.039 and albumin is normal at 3.8 BNP was elevated at 18,100 Her past medical history is significant for history of anemia, recent diagnosis adenocarcinoma with right-sided colectomy, severe valvular heart disease with severe aortic stenosis and moderate to severe mitral regurgitation, severe pulmonary hypertension, history of pulmonary fibrosis , underlying history of diabetes mellitus , underlying history of hypertension and hyperlipidemia , underlying history of congestive heart failure mostly diastolic in nature , coronary artery disease with previous stent placement, esophageal stricture, hypertension, TIA, underlying interstitial lung disease, atrial fibrillation. On 05/22/2020 patient was seen and examined on the medical floor she is alert and responsive in no apparent distress she is still maintained on BiPAP, review of system is very limited due to BiPAP use and due to severe hearing deficit, however patient is denying any chest pain there is no fever or chills, no nausea or vomiting no abdominal pain no diarrhea and no urinary symptoms Objective - Vital Signs Vital signs: Vital Signs Temp 97.9 F 05/21/20 14:52 Pulse 88 05/22/20 12:16 Resp 30 H 05/22/20 12:00 BP 142/88 05/22/20 12:00 Pulse Ox 93 L 05/22/20 12:00 Intake & Output 05/21/20 05/22/20 05/22/20 18:59 06:59 18:59 Intake Total 118.917 200 Output Total 530 500 Balance -411.083 -300 Weight 61.235 kg Intake: Intake, IV Titration 118.917 Amount Diltiazem 125 mg In 118.917 Sodium Chloride 0.9% 100 ml @ 10 MG/HR 10 mls/hr IV .[id number] [facility] Rx#: [id number] Oral 200 Output: Urine 530 500 Other: Voiding Method Indwelling Catheter Indwelling Catheter Indwelling Catheter - Exam In general patient is alert and oriented 3 in mild respiratory distress requi ring BiPAP use HEENT head normocephalic and atraumatic Neck is supple no JVD no goiter no lymphadenopathy Chest exam reveals scattered crackles in both lung bases no wheezing Cardiac exam reveals irregular heart sounds S1 and S2 no gallops no murmurs Abdomen is soft nontender no organomegaly with normal bowel sounds Extremity exam reveals no edema no cyanosis or clubbing Neurological examination reveals no gross focal deficit - Labs CBC & Chem 7: 05/22/20 08:36 05/22/20 08:35 Labs: Abnormal Lab Results - Last 24 Hours (Table) 05/21/20 05/21/20 05/21/20 Range/Units 09:57 16:46 20:05 WBC (3.8-10.6) k/uL Hgb (11.4-16.0) gm/dL MCHC (31.0-37.0) g/dL RDW (11.5-15.5) % Neutrophils # (1.3-7.7) k/uL Lymphocytes # (1.0-4.8) k/uL Carbon Dioxide (22-30) mmol/L BUN (7-17) mg/dL Creatinine (0.52-1.04) mg/dL Glucose (74-99) mg/dL POC Glucose (mg/dL) 257 H 190 H (75-99) mg/dL Albumin (3.5-5.0) g/dL Procalcitonin 0.48 H (0.02-0.09) ng/mL 05/22/20 05/22/20 05/22/20 Range/Units 06:20 08:35 08:36 WBC 11.6 H (3.8-10.6) k/uL Hgb 10.2 L (11.4-16.0) gm/dL MCHC 29.6 L (31.0-37.0) g/dL RDW 22.2 H (11.5-15.5) % Neutrophils # 9.9 H (1.3-7.7) k/uL Lymphocytes # 0.7 L (1.0-4.8) k/uL Carbon Dioxide 21 L (22-30) mmol/L BUN 41 H (7-17) mg/dL Creatinine 1.22 H (0.52-1.04) mg/dL Glucose 172 H (74-99) mg/dL POC Glucose (mg/dL) 143 H (75-99) mg/dL Albumin 3.3 L (3.5-5.0) g/dL Procalcitonin (0.02-0.09) ng/mL 05/22/20 Range/Units 11:26 WBC (3.8-10.6) k/uL Hgb (11.4-16.0) gm/dL MCHC (31.0-37.0) g/dL RDW (11.5-15.5) % Neutrophils # (1.3-7.7) k/uL Lymphocytes # (1.0-4.8) k/uL Carbon Dioxide (22-30) mmol/L BUN (7-17) mg/dL Creatinine (0.52-1.04) mg/dL Glucose (74-99) mg/dL POC Glucose (mg/dL) 168 H (75-99) mg/dL Albumin (3.5-5.0) g/dL Procalcitonin (0.02-0.09) ng/mL Microbiology - Last 24 Hours (Table) 05/21/20 04:02 Blood Culture - Preliminary Blood No Growth after 24 hours Assessment and Plan Plan: 1. Acute hypoxic respiratory failure 2. Acute on chronic congestive heart failure exacerbation, diastolic in nature 3. Chronic atrial fibrillation 4. Underlying history of COPD and pulmonary fibrosis 5. Underlying history of coronary artery disease with history of angioplasty and stent placement in the past 6. Underlying history of diabetes mellitus 7. Underlying history of hypertension 8. Underlying history of hyperlipidemia 9. Recent diagnosis of colon mass, adenocarcinoma with partial colectomy. 10. Underlying history of sleep disturbance maintained on oxazepam for years. At this time patient is admitted to telemetry floor she was started on IV Lasix 40 mg every 8 hours she was also started on IV antibiotics cefepime residential medications reviewed and reordered Pulmonary and cardiology consultation was requested Will follow closely
[2020-05-22 20:41] LABS: Glucose,Whole Blood 167 mg/dL (75-99)
[2020-05-22] MEDS: MONTELUKAST 10 MG TAB PO SCH (21:53)
[2020-05-22] MEDS: HYDROcodone/APAP 5-325MG 1 EACH TAB PO PRN (21:53)
[2020-05-22] MEDS ORDERED: DEXTROSE 5% IN WATER 100 ML with AMIODARONE 150 MG IV ONE (23:15)
[2020-05-22] MEDS ORDERED: AMIODARONE 360 MG in DEXTROSE 5% IN WATER 200 ML IV ONE ×2 (23:30)
[2020-05-23] MEDS: SODIUM CHLORIDE 0.9% 1,000 ML IV SCH (04:06)
[2020-05-23] MEDS: HYDROcodone/APAP 5-325MG 1 EACH TAB PO PRN (04:11)
[2020-05-23 04:44] VITALS: TEMP 96.5
[2020-05-23] MEDS: AMIODARONE 300 MG in DEXTROSE 5% IN WATER 250 ML IV SCH ×4 (05:22→17:34)
[2020-05-23 06:33] LABS: Glucose,Whole Blood 191 mg/dL (75-99)
[2020-05-23] MEDS: INSULIN ASPART (NovoLOG) 100 UNIT/ML VIAL SQ SCH ×3 (06:39→17:35)
[2020-05-23] MEDS ORDERED: FUROSEMIDE 10 MG/ML 4 ML VIAL IV STA (07:01)
--- NOTE | 2020-05-23 07:04 | XR ---
EXAMINATION TYPE: XR chest 1V portable DATE OF EXAM: 05/23/2020 CLINICAL HISTORY: Difficulty breathing progress study. TECHNIQUE: Single AP portable upright view of the chest is obtained. COMPARISON: Chest x-ray from 2 days earlier And older study. FINDINGS: Increasing central opacities bilaterally along with worsening effusions. Underlying scolio sis redemonstrated. Cardiac silhouette size stable and mildly enlarged with atherosclerotic thoracic aorta. Cholecystectomy clips. IMPRESSION: Worsening alveolar and interstitial edema and small bilateral pleural effusions on backgr ound mild cardiomegaly and chronic changes. Correlate for suspected worsening CHF exacerbation.
[2020-05-23] MEDS: BUDESONIDE 1 MG/2 ML NEBU INHALATION SCH (07:06)
[2020-05-23] MEDS: FORMOTEROL FUMARATE 20 MCG/2 ML NEBU INHALATION SCH (07:06)
[2020-05-23] MEDS: IPRATROPIUM-ALBUTEROL 3 ML NEB INHALATION PRN ×3 (07:06→15:43)
[2020-05-23] MEDS: IPRATROPIUM-ALBUTEROL 3 ML NEB INHALATION SCH ×3 (07:06→15:43)
[2020-05-23 07:20] LABS: Anisocytosis Moderate; Basophils % (A) 0 %; Eosinophils # (A) 0.1 k/uL (0-0.7); Eosinophils % (A) 1 %; HCT 35.8 % (34.0-46.0); HGB 10.4 gm/dL (11.4-16.0); Hypochromasia Marked; Lymphocytes % (A) 7 %; MCH 25.4 pg (25.0-35.0); MCV 87.6 fL (80.0-100.0); Mean Platelet Volume 7.8; Microcytosis Slight; Monocytes # (A) 1.1 k/uL (0-1.0); Monocytes % (A) 7 %; Neutrophils # (A) 12.5 k/uL (1.3-7.7); Neutrophils % (A) 84 %; Platelet Count 460 k/uL (150-450); RBC 4.09 m/uL (3.80-5.40); RDW 22.3 % (11.5-15.5); WBC 14.9 k/uL (3.8-10.6)
[2020-05-23 07:37] LABS: Albumin 3.6 g/dL (3.5-5.0); Calcium 9.1 mg/dL (8.4-10.2); Potassium 4.6 mmol/L (3.5-5.1); Total Bilirubin 0.7 mg/dL (0.2-1.3); Total Protein 7.3 g/dL (6.3-8.2)
[2020-05-23] MEDS: CEFEPIME 1 GM in SODIUM CHLORIDE 0.9% 50 ML IVPB SCH (07:43)
[2020-05-23] MEDS: LORazepam 2 MG/ML INJ IV PRN ×2 (07:43→17:16)
[2020-05-23] MEDS ORDERED: FUROSEMIDE 10 MG/ML 2 ML VIAL IV ONE (08:30)
[2020-05-23] MEDS ORDERED: FUROSEMIDE 10 MG/ML 10 ML VIAL IV SCH ×2 (08:30→16:00)
[2020-05-23] MEDS: PANTOPRAZOLE 40 MG TABLET PO SCH (08:45)
[2020-05-23] MEDS: FERROUS SULFATE 325 MG TAB PO SCH ×2 (08:45→17:35)
[2020-05-23] MEDS: SENNOSIDES 8.6 MG TAB PO SCH (08:45)
[2020-05-23] MEDS: amLODIPine 5 MG TAB PO SCH (08:45)
[2020-05-23] MEDS: ISOSORBIDE MONONITRATE ER 30 MG TAB.ER.24H PO SCH (08:45)
[2020-05-23] MEDS: METOPROLOL TARTRATE 50 MG TAB PO SCH (08:45)
[2020-05-23] MEDS: DILTIAZEM ORAL 60 MG TAB PO SCH ×2 (08:45→17:41)
[2020-05-23 11:16] LABS: Glucose,Whole Blood 154 mg/dL (75-99)
--- NOTE | 2020-05-23 12:24 | P.PN ---
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 She has had multiple recent hospitalizations for her multiple comorbidities. She had been residing at [facility] after her last discharge earlier this month. Proximally 3:00 this morning she was brought into the emergency room after developing severe respiratory distress. EMS did find dentures in the back of her throat. She was quite hypoxemic. Chest x-ray upon arrival revealed congestive heart failure with pulmonary edema pleural fluid. She has required BiPAP support currently 10/5 and 40% FiO2. She is seen today in consultation on the selective care unit. She is arousable. Good O2 saturations in the mid 90s. She's been afebrile. Hemodynamically stable. White count 13.9. Hemoglobin 11.9. Sodium 140. Potassium 4.7. Creatinine 1.34. Troponin 0.039, 0.048. ProBNP 18,100 she's been initiated on Lasix 40 mg IV every 12 hours. Recently on a Cardizem drip at 5 mg per hour. He been initiated on antibiotics in the form of Omnicef, DuoNeb inhalations, Symbicort. Her daughter is at the bedside providing most of the information. On 05/22/2020 patient seen in follow-up on selective care unit, she is awake and alert, in no acute distress. She is resting comfortably in bed, currently on 8 L of oxygen, which was subsequently increased to 15 L, her pulse ox is 93%, did wear BiPAP last night, with pressures of 10/5, and FiO2 of 40% with saturation around 100%. Patient has been diuresed, and she is currently on oral diuretics at 40 mg twice daily, and she is only modestly in negative fluid balance, -411 mL over the last 24 hours. Her admission chest x-ray done yesterday showed congestive heart failure with pulmonary edema and pleural fluid. She appears to be in no acute distress, physical exam reveals crackles at bilateral bases, she is on 0.9 normal saline at a rate of 20 ML per hour, denies any chest pain, denies worsening shortness of breath. She is in sinus mechanism with a rate in the 70s and 80s. She have a history of paroxysmal atrial fibrillation, not on any long-term anticoagulation due to history of falls. On 05/23/2020 patient seen in follow-up on selective care unit, her oxygenation has worsened, patient was placed on BiPAP support with pressures of 12 over 4, and FiO2 of 50%, and her O2 sat is 91%, today's chest x-ray showed worsening alveolar and interstitial edema and small bilateral pleural effusions on background of mild cardiomegaly and chronic changes. Patient received a dose of IV Lasix with 40 mg early this morning, she received another 20 mg of Lasix at 8. This morning, her net fluid balance is -600 over the last 24 hours, and patient has produced 1100 mL and urine output, patient will be started on maintenance dose of Lasix at 60 mg every 8 hours. Patient is quite uncomfortable on BiPAP, she once the BiPAP off however she desats quite significantly, within a few minutes of removing the BiPAP mask off, down to low 80s, she will be placed on air flow, it is currently at 50 L/m, and FiO2 of 61%, and her O2 saturation is 93%, today's labs have been reviewed, showing white blood cell count of 14.9, hemoglobin of 10.4, electrolytes are within normal limits, BUN of 47, creatinine is 1.4. Objective - Vital Signs Vital signs: Vital Signs Temp 96.5 F L 05/23/20 04:00 Pulse 74 05/23/20 11:25 Resp 35 H 05/23/20 07:25 BP 161/72 05/23/20 07:25 Pulse Ox 93 L 05/23/20 11:13 Intake & Output 05/22/20 05/23/20 05/23/20 18:59 06:59 18:59 Intake Total 200 240 Output Total 500 600 Balance -300 -360 Weight 61.235 kg Intake: Oral 200 240 Output: Urine 500 600 Other: Voiding Method Indwelling Catheter Indwelling Catheter Indwelling Catheter - Exam GENERAL EXAM: Alert, very pleasant, 89-year-old frail looking white female, currently on BiPAP support, with pressures of 12.4, FiO2 50%, with pulse ox of 91%, patient is requesting BiPAP mask off, and will be placed on Airvo HEAD: Normocephalic/atraumatic. EYES: Normal reaction of pupils, equal size. Conjunctiva pink, sclera white. NOSE: Clear with pink turbinates. THROAT: No erythema or exudates. NECK: No masses, no JVD, no thyroid enlargement, no adenopathy. CHEST: No chest wall deformity. Symmetrical expansion. LUNGS: Equal air entry with basilar crackles CVS: Regular rate and rhythm, normal S1 and S2, no gallops, no murmurs, no rubs ABDOMEN: Soft, nontender. No hepatosplenomegaly, normal bowel sounds, no guarding or rigidity. EXTREMITIES: No clubbing, no edema, no cyanosis, 2+ pulses and upper and lower extremities. MUSCULOSKELETAL: Muscle strength and tone normal. SPINE: No scoliosis or deformity SKIN: No rashes CENTRAL NERVOUS SYSTEM: Alert and oriented -3. No focal deficits, tone is normal in all 4 extremities. PSYCHIATRIC: Alert and oriented -3. Appropriate affect. Intact judgment and insight. - Labs CBC & Chem 7: 05/23/20 06:07 05/23/20 06:07 Labs: Abnormal Lab Results - Last 24 Hours (Table) 05/22/20 05/22/20 05/23/20 Range/Units 16:42 20:40 06:07 WBC (3.8-10.6) k/uL Hgb (11.4-16.0) gm/dL MCHC (31.0-37.0) g/dL RDW (11.5-15.5) % Plt Count (150-450) k/uL Neutrophils # (1.3-7.7) k/uL Monocytes # (0-1.0) k/uL BUN 47 H (7-17) mg/dL Creatinine 1.40 H (0.52-1.04) mg/dL Glucose 169 H (74-99) mg/dL POC Glucose (mg/dL) 165 H 167 H (75-99) mg/dL 05/23/20 05/23/20 05/23/20 Range/Units 06:07 06:30 11:15 WBC 14.9 H (3.8-10.6) k/uL Hgb 10.4 L (11.4-16.0) gm/dL MCHC 29.0 L (31.0-37.0) g/dL RDW 22.3 H (11.5-15.5) % Plt Count 460 H (150-450) k/uL Neutrophils # 12.5 H (1.3-7.7) k/uL Monocytes # 1.1 H (0-1.0) k/uL BUN (7-17) mg/dL Creatinine (0.52-1.04) mg/dL Glucose (74-99) mg/dL POC Glucose (mg/dL) 191 H 154 H (75-99) mg/dL Microbiology - Last 24 Hours (Table) 05/21/20 04:02 Blood Culture - Preliminary Blood No Growth after 48 hours Assessment and Plan Plan: Assessment: Acute hypoxemic respiratory failure secondary to an acute exacerbation of diastolic congestive heart failure, flash pulmonary edema, requiring BiPAP support, possible aspiration, dentures found in throat Anemia secondary to microcytic chronic anemia with iron efficiency Recent diagnosis of primary adenocarcinoma of the colon, status post right colectomy History of atrial fibrillation History of esophageal stricture with previous dilatation Acute on chronic hypoxic respiratory failure secondary to extensive pulmonary fibrosis and COPD Nonspecific pulmonary nodularity noted on the CT of the abdomen and pelvis, with 8 mm nodular density in the lingula and 1.5 cm nodular density in the region of the right middle lobe Coronary artery disease with previous stent placement Diabetes mellitus Hypertension Hyperlipidemia Hearing disorder Osteoarthritis Renal insufficiency History of TIA History of esophageal stricture with previous dilatation Chronic back pain Plan: Increase the Lasix to 60 mg every 8 hours, today's chest x-ray shows worsening alveolar and interstitial edema, patient is in negative fluid balance, will be given additional dose of Lasix, she did not tolerate BiPAP support very well, we can transition her to Airvo. Patient's daughter is requesting information about hospice, she has a meeting scheduled with the hospice this afternoon, and this is reasonable given patient's multiple comorbidities, frequent hospitalizations, and overall declining clinical status. For now she remains a DO NOT RESUSCITATE, will continue with supportive treatment I performed a history & physical examination of the patient and discussed their management with my nurse practitioner, Josephine Winkler. I reviewed the nurse practitioner's note and agree with the documented findings and plan of care. Lung sounds are positive for diminished breath sounds with basilar crackles. The findings and the impression was discussed with the patient. I attest to the documentation by the nurse practitioner. Time with Patient: Less than 30
[2020-05-23 12:30] VITALS: BP 146/69; RESP 34
--- NOTE | 2020-05-23 13:59 | PN ---
PROGRESS NOTE This is 89-year-old lady with a history of CAD, multivessel PTCA, persistent atrial fibrillation, hypertension, hyperlipidemia. She is in the hospital, has lost lot of weight and clinically she is doing much worse. However, she is in and out of atrial fibrillation, not a good candidate for anticoagulation in view of her fall risk. The patient's overall condition has deteriorated with multiple medical problems. She is considering a DNR situation and also possibly a comfort care. I spoke to the patient and her daughter at length and I suggested to keep her comfortable would be the best approach given her multiple comorbid conditions and overall deterioration. Heart rate is in the 90s. She remains in atrial fib, rate is better. Amiodarone drip was started. I am recommending that we discontinue amiodarone drip after 12 hours of 0.5 mg/hour drip and then switch her over to oral amiodarone. Patient will be is considering comfort care at this time. All other medications will be the same, but we will hold Cardizem if the resting heart rate is less than 70. JVD is 1 cm, ejection systolic murmur is audible. Lungs reveal diminished air entry. Abdomen and lower extremity exam otherwise are unchanged. MMODL / IJN: [id number] /
[2020-05-23 17:03] LABS: Glucose,Whole Blood 200 mg/dL (75-99)
--- NOTE | 2020-05-23 17:33 | P.DS ---
Providers Date of admission: 05/21/20 04:14 Expected date of discharge: 05/23/20 Attending physician: Dai Bacon Consults: 05/21/20 04:12 Consult Physician Routine Consulting Provider: Fiona Albarran Consult Reason/Comments: copd Do you want consulting provider notified?: Yes Consult Physician Routine Consulting Provider: Xavi Warner Consult Reason/Comments: chf Do you want consulting provider notified?: Yes Primary care physician: Dai Bacon [facility] Course: Diagnosis on discharge: 1. Acute hypoxic respiratory failure 2. Acute on chronic congestive heart failure exacerbation, diastolic in nature 3. Chronic atrial fibrillation 4. Underlying history of COPD and pulmonary fibrosis 5. Underlying history of coronary artery disease with history of angioplasty and stent placement in the past 6. Underlying history of diabetes mellitus 7. Underlying history of hypertension 8. Underlying history of hyperlipidemia 9. Recent diagnosis of colon mass, adenocarcinoma with partial colectomy. 10. Underlying history of sleep disturbance maintained on oxazepam for years. Hospital course: Sonal Ulloa, is an 89-year-old female had been residing at [facility] after her last discharge earlier this month. Patient developed severe respiratory distress around 2:58 in the morning EMS did find dentures in the back of her throat, She was hypoxic. She was brought in to [facility] emergency room. Chest x-ray on arrival revealed congestive heart failure with pulmonary edema and pleural effusion. She has required BiPAP support she was admitted to telemetry floor pulmonary and cardiology consultation were requested. Patient was seen and examined on telemetry floor she is alert and responsive in no apparent distress she is still on BiPAP her vital exam reveals a temperature of 98.6 pulse 90 respiration 26 blood pressure 118/56 pulse ox is 95% on BiPAP with FiO2 of 40% Her white blood count on presentation was 13.9 hemoglobin 11.9 and platelet count 422, sodium 140 potassium 4.7 BUN was slightly elevated at 34 with creatinine of 1.34 glucose was 237 troponin was slightly elevated at 0.039 and albumin is normal at 3.8 BNP was elevated at 18,100 Her past medical history is significant for history of anemia, recent diagnosis adenocarcinoma with right-sided colectomy, severe valvular heart disease with severe aortic stenosis and moderate to severe mitral regurgitation, severe pulmonary hypertension, history of pulmonary fibrosis , underlying history of diabetes mellitus , underlying history of hypertension and hyperlipidemia , underlying history of congestive heart failure mostly diastolic in nature , coronary artery disease with previous stent placement, esophageal stricture, hypertension, TIA, underlying interstitial lung disease, atrial fibrillation. On 05/22/2020 patient was seen and examined on the medical floor she is alert a nd responsive in no apparent distress she is still maintained on BiPAP, review of system is very limited due to BiPAP use and due to severe hearing deficit, however patient is denying any chest pain there is no fever or chills, no nausea or vomiting no abdominal pain no diarrhea and no urinary symptoms On 05/23/2020 patient was seen and examined on the medical floor she is alert responsive in no apparent distress her daughter is at the bedside case was discussed in details with daughter at this time she is asking about hospice referral, patient was seen and evaluated by hospice, she will be discharged to hospice house today for further care Patient Condition at Discharge: Critical Plan - Discharge Summary New Discharge Prescriptions: New Diltiazem Oral [Cardizem*] 60 mg PO TID tab Ipratropium-Albuterol Nebulize [Duoneb 0.5 mg-3 mg/3 ml Soln] 3 ml INHALATION RT-Q4H PRN ml PRN Reason: Shortness Of Breath Or Wheezing INSULIN ASPART (NovoLOG) [NovoLOG (formulary)] 0 unit SQ ACHS vial Continue Montelukast [Singulair] 10 mg PO HS@2100 Sennosides [Senna] 8.6 mg PO DAILY@0900 Nitroglycerin Sl Tabs [Nitrostat] 0.4 mg SUBLINGUAL Q5M PRN #25 tab PRN Reason: Chest Pain Acetaminophen [Tylenol] 1,000 mg PO Q4H PRN PRN Reason: Pain Ferrous Sulfate [Feosol] 325 mg PO BID@0900,1700 bisacodyL [Dulcolax] 10 mg RECTAL Q72H PRN PRN Reason: Constipation Furosemide [Lasix] 40 mg PO DAILY@0900 Isosorbide Mononitrate ER [Imdur] 30 mg PO DAILY@0900 Pantoprazole [Protonix] 40 mg PO BID@0900,2100 Tiotropium [place] [Spiriva] 1 cap INHALATION RT-DAILY@1700 Glucerna Shake 1 can PO DAILY@0900 Metoprolol Tartrate [Lopressor] 50 mg PO BID@0900,2100 amLODIPine [Norvasc] 5 mg PO BID@ Darbepoetin Adrian [Aranesp] 40 mcg SQ TH HYDROcodone/APAP 5-325MG [[place] 5-325] 1 tab PO Q6H PRN #12 tab PRN Reason: Pain Oxazepam 15 mg PO HS PRN 3 Days #3 cap PRN Reason: Insomnia Menthol [Biofreeze] 1 applic TOPICAL Q6H PRN PRN Reason: Pain INSULIN ASPART (NovoLOG) [NovoLOG (formulary)] See Protocol SQ AC-TID Methyl Salicylate/Menthol [Salonpas Patch] 1 patch TOPICAL HS Discontinued Fluticasone/Salmeterol [Advair 250-50 Diskus] 1 puff INHALATION RT- BID@ Cefuroxime Axetil [Ceftin] 500 mg PO BID 10 Days #20 tab metroNIDAZOLE [Flagyl] 500 mg PO Q8HR #30 tab Depo-Medrol 40 mg IM ONCE PRN PRN Reason: Pain Discharge Medication List Montelukast [Singulair] 10 mg PO HS@209905/17/17 [History] Sennosides [Senna] 8.6 mg PO DAILY@89907/18/17 [History] Nitroglycerin Sl Tabs [Nitrostat] 0.4 mg SUBLINGUAL Q5M PRN #25 tab 07/23/17 [Rx] Acetaminophen [Tylenol] 1,000 mg PO Q4H PRN 05/14/18 [History] Ferrous Sulfate [Feosol] 325 mg PO BID@899,169911/27/19 [History] Furosemide [Lasix] 40 mg PO DAILY@89903/27/20 [History] Isosorbide Mononitrate ER [Imdur] 30 mg PO DAILY@89903/27/20 [History] Pantoprazole [Protonix] 40 mg PO BID@899,209903/27/20 [History] Tiotropium [place] [Spiriva] 1 cap INHALATION RT-DAILY@169903/27/20 [History] bisacodyL [Dulcolax] 10 mg RECTAL Q72H PRN 03/27/20 [History] Darbepoetin Adrian [Aranesp] 40 mcg SQ TH 05/05/20 [History] Glucerna Shake 1 can PO DAILY@0900 05/05/20 [History] Metoprolol Tartrate [Lopressor] 50 mg PO BID@09,209905/05/20 [History] amLODIPine [Norvasc] 5 mg PO BID@899,209905/05/20 [History] HYDROcodone/APAP 5-325MG [[place] 5-325] 1 tab PO Q6H PRN #12 tab 05/10/20 [Rx] Oxazepam 15 mg PO HS PRN 3 Days #3 cap 05/10/20 [Rx] INSULIN ASPART (NovoLOG) [NovoLOG (formulary)] See Protocol SQ AC-TID 05/21/20 [History] Menthol [Biofreeze] 1 applic TOPICAL Q6H PRN 05/21/20 [History] Methyl Salicylate/Menthol [Salonpas Patch] 1 patch TOPICAL HS 05/21/20 [History] Diltiazem Oral [Cardizem*] 60 mg PO TID tab 05/23/20 [Rx] INSULIN ASPART (NovoLOG) [NovoLOG (formulary)] 0 unit SQ ACHS vial 05/23/20 [Rx] Ipratropium-Albuterol Nebulize [Duoneb 0.5 mg-3 mg/3 ml Soln] 3 ml INHALATION RT-Q4H PRN ml 05/23/20 [Rx] Follow up Appointment(s)/Referral(s): Dai Bacon MD [Primary Care Provider] - 1-2 days
[2020-05-23 18:21] VITALS: PULSE 69
[2020-05-25] MEDS ORDERED: DARBEPOETIN ALFA 40 MCG/0.4 ML SYRINGE SQ SCH (09:00)
== END 2020-05-23 18:47 | DRG 291 ==
LOC: EC 03:51 → 3SCARD 04:14
PROVIDERS: ADMIT Internal Medicine; ATTEND Internal Medicine
PROC: 5A09457 Assistance with Respiratory Ventilation, 24-96 Consecutive Hours, Continuous Positive Airway Pressure (ICD-10-PCS; principal; 2020-05-21)
DX: I11.0 Hypertensive heart disease with heart failure (principal); J96.21 Acute and chronic respiratory failure with hypoxia; R64 Cachexia; J44.1 Chronic obstructive pulmonary disease with (acute) exacerbation; I48.19 Other persistent atrial fibrillation; C18.9 Malignant neoplasm of colon, unspecified; I50.33 Acute on chronic diastolic (congestive) heart failure; I27.20 Pulmonary hypertension, unspecified; J84.10 Pulmonary fibrosis, unspecified; Z79.4 Long term (current) use of insulin; E11.9 Type 2 diabetes mellitus without complications; Z20.828 Contact with and (suspected) exposure to other viral communicable diseases; Z66 Do not resuscitate; Z51.5 Encounter for palliative care; T17.290A Other foreign object in pharynx causing asphyxiation, initial encounter; D50.9 Iron deficiency anemia, unspecified; I08.3 Combined rheumatic disorders of mitral, aortic and tricuspid valves; I25.10 Atherosclerotic heart disease of native coronary artery without angina pectoris; I44.7 Left bundle-branch block, unspecified; I25.2 Old myocardial infarction; E78.5 Hyperlipidemia, unspecified; G47.9 Sleep disorder, unspecified; G89.29 Other chronic pain; M54.9 Dorsalgia, unspecified; M13.0 Polyarthritis, unspecified; F41.9 Anxiety disorder, unspecified; F32.9 Major depressive disorder, single episode, unspecified; R19.7 Diarrhea, unspecified; K59.00 Constipation, unspecified; K44.9 Diaphragmatic hernia without obstruction or gangrene; K21.9 Gastro-esophageal reflux disease without esophagitis; L30.9 Dermatitis, unspecified; N28.9 Disorder of kidney and ureter, unspecified; H91.90 Unspecified hearing loss, unspecified ear; Z79.891 Long term (current) use of opiate analgesic; Z79.51 Long term (current) use of inhaled steroids; Z79.01 Long term (current) use of anticoagulants; Z79.899 Other long term (current) drug therapy; Z87.891 Personal history of nicotine dependence; Z91.81 History of falling; Z86.19 Personal history of other infectious and parasitic diseases; Z95.5 Presence of coronary angioplasty implant and graft; Z86.73 Personal history of transient ischemic attack (TIA), and cerebral infarction without residual deficits; Z87.440 Personal history of urinary (tract) infections; Z87.01 Personal history of pneumonia (recurrent); Z90.49 Acquired absence of other specified parts of digestive tract; Z87.19 Personal history of other diseases of the digestive system; Z98.42 Cataract extraction status, left eye; Z98.41 Cataract extraction status, right eye; Z96.1 Presence of intraocular lens; Z98.890 Other specified postprocedural states; Z88.1 Allergy status to other antibiotic agents; Z88.5 Allergy status to narcotic agent; Z88.0 Allergy status to penicillin; Z88.2 Allergy status to sulfonamides; Z88.8 Allergy status to other drugs, medicaments and biological substances; Z91.048 Other nonmedicinal substance allergy status; Z82.49 Family history of ischemic heart disease and other diseases of the circulatory system
CPT/HCPCS: 71045; 80053; 82550; 82728; 83615; 83735; 83880; 84145; 84484; 85025; 85610; 85730; 86140; 87040; 93005; 94640; 94660; 94760; 96365; 96366; 96375; 96376; 99291